=== PATIENT | female | born 1980 | race Caucasian/White ===

== ENCOUNTER 2020-09-14 11:06 | Inpatient (IN) | payer MEDICARE, MEDICAID, SELFPAY ==
[2020-09-14] VITALS (11 sets, daily range): BP systolic 169–247; BP diastolic 100–169; PULSE 80–104; RESP 14–18; TEMP 36.6–37.1; O2SAT 96–99; BMI 29.3; BMI 31.2
--- NOTE | ~2020-09-14 | CT_ITS ---
EXAMINATION: CT HEAD WITHOUT CONTRAST CLINICAL INFORMATION: Headache COMPARISON: Multiple prior examinations including CT head June 2016 TECHNIQUE: Contiguous axial imaging was performed from the skull base to vertex without intravenous administration of contrast. This CT examination was performed using dose optimization techniques as appropriate, variously including the following: *Automated exposure control *Adjustment of mA and/or kV according to patient size (this includes techniques or standardized protocols for targeted exams where dose is matched to indication/reason for exam; i.e. extremities or head) *Use of iterative reconstruction technique DLP: 649 mGy-cm FINDINGS: There is no evidence of acute intracranial hemorrhage or territorial infarction. No abnormal mass effect or midline shift is seen. Gu to white matter differentiation is well preserved. No extra-axial fluid collections are identified. The ventricles are normal in size. There is no abnormal attenuation within the brain parenchyma. The osseous structures and soft tissues are normal. Mastoid air cells clear. Slight asymmetry of the posterior wall the right maxillary sinus and likely due to normal variation than old fracture. No acute abnormality. CT/CT head/brain wo con IMPRESSION: No acute intracranial pathology.
--- NOTE | ~2020-09-14 | XR_ITS ---
EXAMINATION: XR CHEST CLINICAL INFORMATION: Shortness of breath COMPARISON: Previous chest x-ray most recent October 2017 TECHNIQUE: 2 views of the chest were obtained. FINDINGS: The cardiac silhouette is enlarged. There is pulmonary venous redistribution and increased peripheral interstitial markings suggestive of mild interstitial pulmonary edema. The lungs are otherwise clear. There is no pleural effusion. There are old left-sided rib fractures. Bony structures are otherwise unremarkable. XR/XR chest 2V IMPRESSION: New enlargement of the cardiac silhouette and interstitial pulmonary edema.
--- NOTE | ~2020-09-14 | CT_ITS ---
EXAMINATION: CT ANGIOGRAM OF THE CHEST WITH AND WITHOUT CONTRAST (CT PULMONARY ANGIOGRAM FOR PE) CLINICAL INFORMATION: Reason for Exam cp, sob, r/o pe COMPARISON: None TECHNIQUE: Prior to contrast administration, noncontrast localization images were obtained. Subsequently, multidetector volumetric imaging was performed from the thoracic inlet to below the diaphragms following the administration of 80 mL Omnipaque 350 intravenous contrast. No contrast reaction reported Sagittal, coronal, and MIP oblique sagittal reformatted images were obtained on the CT workstation, uploaded to PACS, and reviewed. This CT examination was performed using dose optimization techniques as appropriate, variously including the following: *Automated exposure control *Adjustment of mA and/or kV according to patient size (this includes techniques or standardized protocols for targeted exams where dose is matched to indication/reason for exam; i.e. extremities or head) *Use of iterative reconstruction technique Total exam dose-length product 471 mGy-cm FINDINGS: QUALITY OF STUDY/CONTRAST BOLUS: Satisfactory. PULMONARY ARTERIES: No central or segmental pulmonary emboli. THORACIC AORTA: No aneurysm or dissection. LUNG: The lungs are well-expanded and clear of acute pneumonic process. No pulmonary nodule, mass or consolidation seen. Minimal atelectatic changes are seen in lingula, left lower lobe and right lower lobe. PLEURA: No pleural effusion or pneumothorax. MEDIASTINUM: The heart size enlarged. There is no pericardial effusion. There are several left para-aortic and pretracheal lymph nodes. The largest left para-aortic lymph node measures 2.5 cm and the right pretracheal lymph node measures 3.3 x 1.5 cm. No evidence of septal bowing or right heart strain. CHEST WALL/AXILLA: No axillary or internal mammary lymphadenopathy. OSSEOUS STRUCTURES: No lytic or sclerotic process seen. UPPER ABDOMEN: Visualized liver, spleen, pancreas and bilateral adrenal glands are unremarkable. The gallbladder has been surgically removed. No reflux of contrast into the hepatic veins to suggest elevated right heart pressures. CT/CT angio chest PE protocol IMPRESSION: No evidence of PE. No evidence of aortic dissection. Abnormal mediastinal lymph nodes question inflammatory or infectious etiology. Atelectatic changes in lingula, right middle lobe and left lower lobe. Mild cardiomegaly. VTE: negative
--- NOTE | 2020-09-14 11:14 | ECG_ITS ---
Test Reason : SOB Blood Pressure : / mmHG Vent. Rate : 107 BPM Atrial Rate : 107 BPM P-R Int : 140 ms QRS Dur : 088 ms QT Int : 376 ms P-R-T Axes : 060 -02 126 degrees QTc Int : 501 ms Sinus tachycardia Left atrial enlargement Left ventricular hypertrophy with repolarization abnormality Abnormal ECG When compared with ECG of 26-OCT-2017 19:02, Minimal criteria for Inferior infarct are no longer Present Nonspecific T wave abnormality no longer evident in Inferior leads Inverted T waves have replaced nonspecific T wave abnormality in Lateral leads Referred By: Generic ED Physician Electronically Signed By:TIFFANIE SWANN MD
--- NOTE | 2020-09-14 12:28 | ED.CHESTPAIN ---
HPI - Chest Pain General Chief Complaint: Chest Pain Stated Complaint: SOB CHEST PAIN Time Seen by Provider: 09/14/20 12:15 Source: patient Mode of arrival: ambulatory Limitations: no limitations History of Present Illness HPI narrative: 40-year-old female with a past medical history of rheumatoid arthritis, lupus, Sjogren's, hypertension, hyperlipidemia, migraines, borderline diabetes with complaints of chest tightness since last evening. The patient tells me that she ate some dinner and shortly after felt some substernal chest discomfort with a tightness which wraps around her chest into her back. She tells me she tried a baby aspirin, Tums and Pepto with continued complaints. She did vomit once. This morning continued pain as she has had this throughout the night. She denies any current nausea, dizziness, headache, vision changes. The patient is complaining of some shortness of breath with activity which she has had for the last 2 days. No leg swelling or pain. She does tell me the pain is worsened with deep breathing. She has a history of hypertension and has been seen by Nephrology in the past. However, she has been lost to follow-up due to COVID per patient. She was taking amlodipine 5 mg daily and lisinopril 20 mg daily with a baseline blood pressure 150/90. However she ran out of her medications several weeks ago and has not been taking these. MD complaint: chest discomfort Related Data Home Medications Medication Instructions Recorded Confirmed aspirin 81 mg PO DAILY 09/14/20 09/14/20 clonazepam 1 tab PO DAILY PRN 09/14/20 09/14/20 lamotrigine 150 mg PO DAILY 09/14/20 09/14/20 Allergies Allergy/AdvReac Type Severity Reaction Status Date / Time Cephalosporins Allergy Intermediate RASH ALL Verified 09/14/20 12:01 [CEPHALOSPORINS] OVER amoxicillin Allergy Unknown rash Verified 09/14/20 12:01 cefaclor [From Ceclor] Allergy Unknown RASH Verified 09/14/20 12:01 cephalexin Allergy Unknown rash Verified 09/14/20 12:01 cephradine [From VELOSEF] Allergy Unknown RASH Verified 09/14/20 12:01 penicillin V Allergy Unknown rash Verified 09/14/20 12:01 Penicillins [PENICILLINS] Allergy Unknown RASH Verified 09/14/20 12:01 gabapentin [GABAPENTIN] AdvReac Unknown RESTLESS Verified 09/14/20 12:01 LEGS, Body becomes very uncomfortable Review of Systems Review of Systems: Yes all other systems are reviewed and are negative Constitutional: Constitutional: Reports no additional constitutional complaints, Denies body ache(s), Denies chills, Denies fever(s), Denies headache(s) and Denies weakness Eyes: Eyes: Reports no additional eye complaints and Denies change in vision ENT: Reports system reviewed and no additional complaints, except as documented, Denies dizziness, Denies headache(s), Denies nasal congestion, Denies nasal discharge and Denies neck pain Cardiovascular: Cardiovascular: Reports no additional cardiovascular complaints, Reports chest pain, Denies leg edema, Denies dyspnea and Reports dyspnea on exertion Respiratory: Respiratory: Reports no additional respiratory complaints, Denies cough, Denies dyspnea and Reports dyspnea on exertion Gastrointestinal: Gastrointestinal: Reports no additional gastrointestinal complaints, Denies abdominal pain, Denies diarrhea, Denies nausea and Denies vomiting Genitourinary: Genitourinary: Reports no additional female genitourinary complaints and Denies urinary incontinence Musculoskeletal: Musculoskeletal: Reports no additional musculoskeletal complaints, Denies back pain, Denies arthralgias, Denies joint swelling, Denies neck pain, Denies numbness and Denies tingling Integumentary/Breasts: Skin/Breast: Reports system reviewed and no additional complaints, except as docu and Denies rash Neurologic: Reports system reviewed and no additional complaints, except as documented, Denies Abnormal speech present, Denies dizziness, Denies headache(s), Denies numbness, Denies tingling and Denies weakness [facility] Past Medical History Attestation statement: The following information was validated with the patient. Source: old records reviewed and nursing notes reviewed Medical History (Updated 09/14/20 @ 16:20 by Gina No NP) Anxiety Bipolar 1 disorder Diabetes mellitus H/O mixed connective tissue disease High cholesterol History of DVT (deep vein thrombosis) HTN (hypertension) Lupus Migraines PTSD (post-traumatic stress disorder) Rheumatoid arthritis Sjogren's disease Surgical History H/O: hysterectomy S/P cholecystectomy Social History Social History (Updated 09/14/20 @ 12:31 by Gina Oneal, [employer]) Alcohol intake: current Alcohol intake frequency: holidays/special occasions only Alcohol type: hard liquor Patient Tobacco Use Status: Current everyday Tobacco user Smoked in Last 30 Days: Yes Use of substances other than those prescribed or required for medical reasons: Yes Substance Use Type: Crack/Cocaine and Marijuana Substance Use Type Other:: pt reports using cocaine once three months ago Substance Use Frequency: Weekly Substance Use Frequency Other:: marijuana use couple times a week Advance Directives: No Advance Directives Information Provided: Yes Patient : No Physical Exam Vital Signs: Vital Signs: Last Vital Signs Temp 97.8 F 09/14/20 16:00 Pulse 80 09/14/20 16:00 Resp 16 09/14/20 16:00 BP 169/126 H 09/14/20 16:00 Pulse Ox 99 09/14/20 16:00 Body Mass Index 29.3 Const: General: cooperative, healthy appearing, comfortable and no acute distress Orientation/consciousness: patient oriented x3 Limitations: no limitations HENMT: Head: Yes normal to inspection Ears: hearing grossly normal bilaterally General nose exam: Normal external nose present Face and sinus: Yes normal facial exam Mouth: Normal oral and palatal mucosa present Throat: Yes posterior oropharynx normal Eyes: General: appearance normal, both eyes and all related structures Pupils: Equal, round and reactive pupils present Neck: Neck: Yes normal visual inspection Chest: Chest palpation & inspection: normal inspection of the chest and tenderness (central chest tender to palp) Resp: Effort & Inspection: normal respiratory effort Auscultation: clear to auscultation bilaterally Cardio: Rate: tachycardic Rhythm: regular rhythm Peripheral pulses: Peripheral pulses 2+ throughout GI: Inspection: Yes normal to inspection Palpation (GI): Soft to palpation and nontender Auscultation: normal bowel sounds Back/Spine/Pelvis: Thoracic/Lumbar Spine: thoracic and lumbar spine normal to inspection Skin: General skin exam: no rashes or lesions noted Neuro: General: patient oriented x3, no focal motor deficits and normal sensation to monofilament Cranial nerves: Yes Equal, round and reactive pupils present Cognition (Neuro): normal cognition Speech: No Abnormal speech present Gait exam (Neuro): Normal gait present Motor exam (neuro): 5/5 motor strength present throughout Extrem: General: Yes normal to inspection, Yes no pedal edema and Yes no calf tenderness Course Course Course Narrative: 40-year-old female with a past medical history of hypertension noncompliant with her medications here with complaints of chest pain and tightness since last evening after eating a meal. Continued symptoms despite aspirin, Tums and Pepto with continued symptoms. On arrival the patient is hypertensive 230/150. Normal neuro exam Will need EKG, chest x-ray, labs, blood pressure control. 1300-prior to labetalol dose patient's blood pressure 230/160. X-ray consistent with large cardiac silhouette and interstitial pulmonary edema. ?nonischemic cardiomyopathy secondary to uncontrolled HTN. 1330-MAYURI, elevated troponin likely secondary to uncontrolled htn with plan for repeat 3hr. Mild leukocytosis likely reactive. Repeat dose of labetalol given. 40 mg of IV Lasix ordered after discussion with Dr Melo (attending). due to tachypnea, pleuritic chest pain, mild tachycardia and history of DVTs not currently on anticoagulation will need to be ruled out for PE. CTA ordered. Will need admission. 1430-blood pressure now 185/125. Goal BP 176/120. We will restart oral antihypertensive. Will hold lisinopril due to renal function. Give Norvasc p.o.. CTA pending. 1530-CTA No evidence of PE. No evidence of aortic dissection. Abnormal mediastinal lymph nodes question inflammatory or infectious etiology. Atelectatic changes in lingula, right middle lobe and left lower lobe. Mild cardiomegaly. Repeat troponin pending. BP 176/112. Call out to medicine to discuss. 1615-Discussed with Dr Ascencio who accepted admission. MDM - Chest Pain MDM Narrative Medical decision making narrative: Cardiomyopathy, chf, pe, pna, dissection, acs Medical Records Data Attestation: I reviewed the patient's medical records. Lab Data Attestation: I reviewed the patient's lab results. Result diagrams: 09/14/20 12:47 09/14/20 12:47 Labs: Lab Results 09/14/20 09/14/20 09/14/20 Range/Units 12:47 12:47 12:47 WBC 13.3 H (4.8-10.8) X10*3/uL RBC 3.82 L (4.20-5.50) X10*6/uL Hgb 12.5 (12.0-16.0) g/dl Hct 34.7 L (37-47) % MCV 90.8 (80-98) fL MCH 32.7 (27.0-33.0) pg MCHC 36.0 H (31.0-35.0) g/dl RDW 14.6 (11.0-16.0) % Plt Count 280 (160-400) X10*3/uL MPV 9.7 (9.4-12.3) fL Immature Gran % (Auto) 0.5 H (0.0-0.4) % Neut % (Auto) 78.0 H (45-73) % Lymph % (Auto) 14.8 L (20-40) % [place] % (Auto) 5.0 (2-11) % Eos % (Auto) 1.2 (0-4) % Baso % (Auto) 0.5 (0-2) % Lymph # (Auto) 2.0 (1.2-4.9) X10*3/uL [place] # (Auto) 0.7 (0.1-1.2) X10*3/uL Eos # (Auto) 0.2 (0.0-0.4) X10*3/uL Baso # (Auto) 0.1 (0.0-0.2) X10*3/uL Abs Immat Gran (auto) 0.07 H (0.00-0.03) X10*3/uL Absolute Neuts (auto) 10.4 H (2.0-8.3) X10*3/uL Absolute Nucleated RBC 0.000 (0.0-0.012) X10*3/uL Nucleated RBC % (auto) 0.0 (0.0-0.2) /100WBC PT 13.2 H (10.8-13.0) SEC INR 1.1 (0.9-1.1) Sodium 137 (135-145) mmol/L Potassium 3.3 (3.3-5.1) mmol/L Chloride 103 (96-108) mmol/L Carbon Dioxide 25 (22-29) mmol/L Anion Gap 12 (12-20) BUN 21 H (9-16) mg/dL Creatinine 1.36 (0.5-1.4) mg/dL Estim Creat Clear Calc 60.7 Estimated GFR 44 Random Glucose 233 H (60-115) mg/dL Calcium 9.1 (8.4-10.2) mg/dL Magnesium 1.7 (1.6-2.6) mg/dL Total Bilirubin 1.3 H (0.0-1.0) mg/dL Direct Bilirubin 0.5 (0.0-0.5) mg/dL AST 34 H (5-31) U/L ALT 49 H (0-31) U/L Alkaline Phosphatase 126 H (39-117) U/L Troponin I High Sens (<3.5-17.0) ng/L B-Natriuretic Peptide (<100) pg/mL Total Protein 5.9 L (6.5-8.0) g/dL Albumin 3.7 (3.5-5.0) g/dL Urine Color Urine Appearance Urine pH (5.0-8.0) Ur Specific [place] (1.005-1.025) Urine Protein (NEG-TRACE) MG/DL Urine Glucose (UA) (NEG) MG/DL Urine Ketones (NEG) MG/DL Urine Blood (NEG) Urine Nitrite (NEG) Ur Leukocyte Esterase (NEG) Urine RBC (0) /HPF Urine WBC (0-4) /HPF Ur Squamous Epith Cells /LPF Amorphous Sediment /LPF Urine Bacteria /LPF COVID-19 (TOM) (Negative) COVID-19 Clin Com 09/14/20 09/14/20 09/14/20 Range/Units 12:47 15:03 15:03 WBC (4.8-10.8) X10*3/uL RBC (4.20-5.50) X10*6/uL Hgb (12.0-16.0) g/dl Hct (37-47) % MCV (80-98) fL MCH (27.0-33.0) pg MCHC (31.0-35.0) g/dl RDW (11.0-16.0) % Plt Count (160-400) X10*3/uL MPV (9.4-12.3) fL Immature Gran % (Auto) (0.0-0.4) % Neut % (Auto) (45-73) % Lymph % (Auto) (20-40) % [place] % (Auto) (2-11) % Eos % (Auto) (0-4) % Baso % (Auto) (0-2) % Lymph # (Auto) (1.2-4.9) X10*3/uL [place] # (Auto) (0.1-1.2) X10*3/uL Eos # (Auto) (0.0-0.4) X10*3/uL Baso # (Auto) (0.0-0.2) X10*3/uL Abs Immat Gran (auto) (0.00-0.03) X10*3/uL Absolute Neuts (auto) (2.0-8.3) X10*3/uL Absolute Nucleated RBC (0.0-0.012) X10*3/uL Nucleated RBC % (auto) (0.0-0.2) /100WBC PT (10.8-13.0) SEC INR (0.9-1.1) Sodium (135-145) mmol/L Potassium (3.3-5.1) mmol/L Chloride (96-108) mmol/L Carbon Dioxide (22-29) mmol/L Anion Gap (12-20) BUN (9-16) mg/dL Creatinine (0.5-1.4) mg/dL Estim Creat Clear Calc Estimated GFR Random Glucose (60-115) mg/dL Calcium (8.4-10.2) mg/dL Magnesium (1.6-2.6) mg/dL Total Bilirubin (0.0-1.0) mg/dL Direct Bilirubin (0.0-0.5) mg/dL AST (5-31) U/L ALT (0-31) U/L Alkaline Phosphatase (39-117) U/L Troponin I High Sens 48.5 H* (<3.5-17.0) ng/L B-Natriuretic Peptide 2842 H (<100) pg/mL Total Protein (6.5-8.0) g/dL Albumin (3.5-5.0) g/dL Urine Color YELLOW Urine Appearance CLOUDY Urine pH 6.0 (5.0-8.0) Ur Specific [place] 1.020 (1.005-1.025) Urine Protein 2+ H (NEG-TRACE) MG/DL Urine Glucose (UA) 250 H (NEG) MG/DL Urine Ketones NEG (NEG) MG/DL Urine Blood TRACE (NEG) Urine Nitrite NEG (NEG) Ur Leukocyte Esterase NEG (NEG) Urine RBC 0-2 (0) /HPF Urine WBC 1-4 (0-4) /HPF Ur Squamous Epith Cells 2+ /LPF Amorphous Sediment 1+ /LPF Urine Bacteria TRACE /LPF COVID-19 (TOM) Negative (Negative) COVID-19 Clin Com See Note Imaging Data Chest x-ray: Attestation: I personally reviewed and interpreted this imaging study as follows: Radiologist's impression: EXAMINATION: XR CHEST CLINICAL INFORMATION: Shortness of breath COMPARISON: Previous chest x-ray most recent October 2017 TECHNIQUE: 2 views of the chest were obtained. FINDINGS: The cardiac silhouette is enlarged. There is pulmonary venous redistribution and increased peripheral interstitial markings suggestive of mild interstitial pulmonary edema. The lungs are otherwise clear. There is no pleural effusion. There are old left-sided rib fractures. Bony structures are otherwise unremarkable. XR/XR chest 2V IMPRESSION: New enlargement of the cardiac silhouette and interstitial pulmonary edema. CT scan - chest: Attestation: I personally reviewed and interpreted this imaging study as follows: Radiologist's impression: No evidence of PE. No evidence of aortic dissection. Abnormal mediastinal lymph nodes question inflammatory or infectious etiology. Atelectatic changes in lingula, right middle lobe and left lower lobe. Mild cardiomegaly. ECG Data ECG #1: Attestation: I personally reviewed and interpreted this ECG as follows: ECG interpretation date: 09/14/20 ECG interpretation time: 11:30 Interpretation: ST with rate 107, normal pr, normal qrs, prolonged qtc [address] depressions in leads V4 through V6 which appear on EKG from October of 2017 Discharge Plan Discharge Clinical Impression: Hypertensive crisis, Elevated brain natriuretic peptide (BNP) level, Elevated troponin Patient Disposition: Admitted As Inpatient
[2020-09-14 12:53] LABS: MANUAL DIFF FLAG NO
[2020-09-14] MEDS: Labetalol HCL 100 MG/20 ML VIAL 10 MG IVPUSH (12:53)
[2020-09-14 13:01] LABS: Basophils Absolute Auto 0.1 X10*3/uL (0.0-0.2); Basophils Percent Auto 0.5 % (0-2); Eosinophils Absolute Auto 0.2 X10*3/uL (0.0-0.4); Eosinophils Percent Auto 1.2 % (0-4); Hematocrit 34.7 % (37-47); Hemoglobin 12.5 g/dl (12.0-16.0); Imm Gran Abs Auto 0.07 X10*3/uL (0.00-0.03); Imm Gran Pct Auto 0.5 % (0.0-0.4); Lymphocytes Percent Auto 14.8 % (20-40); Mean Corpuscular Hemoglobin 32.7 pg (27.0-33.0); Mean Corpuscular Volume 90.8 fL (80-98); Mean Platelet Volume 9.7 fL (9.4-12.3); Monocytes Absolute Auto 0.7 X10*3/uL (0.1-1.2); Neutrophils Absolute Auto 10.4 X10*3/uL (2.0-8.3); Platelet Count 280 X10*3/uL (160-400); Red Blood Count 3.82 X10*6/uL (4.20-5.50); Red Cell Distribution Width 14.6 % (11.0-16.0); White Blood Count 13.3 X10*3/uL (4.8-10.8)
[2020-09-14 13:14] LABS: INTERNATIONAL NORM RATIO 1.1 (0.9-1.1); Prothrombin Time 13.2 SEC (10.8-13.0)
[2020-09-14 13:20] LABS: Alanine Aminotransferase 49 U/L (0-31); Albumin Level 3.7 g/dL (3.5-5.0); Alkaline Phosphatase 126 U/L (39-117); Anion Gap 12 (12-20); Aspartate Amino Transferase 34 U/L (5-31); Bilirubin Direct 0.5 mg/dL (0.0-0.5); Bilirubin Total 1.3 mg/dL (0.0-1.0); Blood Urea Nitrogen 21 mg/dL (9-16); Calcium 9.1 mg/dL (8.4-10.2); Carbon Dioxide 25 mmol/L (22-29); Chloride 103 mmol/L (96-108); Creatinine Clr Calc Pharmacy 60.7; Estimated Glomerular Filt Rate 44; Glucose Random 233 mg/dL (60-115); Magnesium 1.7 mg/dL (1.6-2.6); Potassium 3.3 mmol/L (3.3-5.1); Sodium 137 mmol/L (135-145); Total Protein 5.9 g/dL (6.5-8.0)
[2020-09-14 13:30] LABS: Troponin-I High Sensitivity 48.5 ng/L (<3.5-17.0)
[2020-09-14] MEDS: Furosemide 40 MG/4 ML VIAL IVPUSH (13:36)
[2020-09-14] MEDS: Labetalol HCL 100 MG/20 ML VIAL 20 MG IVPUSH (13:37)
[2020-09-14] MEDS: clonazePAM 0.5 MG TABLET PO (14:00)
[2020-09-14 14:01] LABS: B Type Natriuretic Peptide 2842 pg/mL (<100)
--- NOTE | 2020-09-14 14:50 | HE.PHANOTE ---
Patient reports taking 150 mg daily, she states she [facility] at [facility] in [place], though they have never filled it for her. Aime said last fill of any medications was july which was clonazepam. Elif Puentes PharmD
[2020-09-14] MEDS: amLODIPine Besylate 10 MG TABLET PO (14:53)
[2020-09-14] MEDS: iohexoL 350 MG/ML 100 ML INFUS..BTL IV (15:11)
[2020-09-14 15:12] LABS: Glucose Urine UA 250 MG/DL (NEG); Leukocyte Esterase Urine NEG (NEG); Nitrite Urine NEG (NEG); Urine Blood TRACE (NEG); Urine Ketones NEG (NEG); Urine Protein 2+ MG/DL (NEG-TRACE)
[2020-09-14 15:14] LABS: Appearance Urine CLOUDY; Color Urine YELLOW
[2020-09-14 15:23] LABS: Amorphous Sediment Urine 1+ /LPF; Bacteria Urine TRACE /LPF; RBC Urine 0-2 /HPF (0); Squamous Epithelial Cell Urine 2+ /LPF
[2020-09-14 15:27] LABS: COVID-19 Test Negative (Negative); IDNOW Serial# 9DD0AD1C
--- NOTE | 2020-09-14 16:38 | PM.IMHP ---
History of Present Illness Date of Service: 09/14/20 Chief Complaint: sob, chest pain 40F presented with one day lower chest wall/epigastric pain, 8/10, wrapping around back, associated with sob. denies n/v, diaphoresis, fever, chills. patient also complaining of several months progressive shortness of breath on exertion and orthopnea. patient has DM and HTN for which she has been non compliant with medications. She also has history of mixed connective tissue disease, not currently on treatement. in ED patient noted to have severe hypertension with bp 247/169. CTA was negative for PE, did show cardiomegaly and mediastinal lymph nodes. Review of Systems Review of Systems: Constitutional: Denies fever, denies Chills Eyes: denies blurry vision ENT: denies sore throat CVS: chest pain Respiratory: dyspnea GI: abdominal pain : denies dysuria MSK: denies neck pain Skin: denies rash Neuro: denies specific motor weakness Psych: denies suicidal ideation Endocrine: denies heat/cold intoleratnce Hematologic: denies easy bleeding Allergy: denies hives [facility] Medical History Anxiety Bipolar 1 disorder Diabetes mellitus H/O mixed connective tissue disease High cholesterol History of DVT (deep vein thrombosis) HTN (hypertension) Lupus Migraines PTSD (post-traumatic stress disorder) Rheumatoid arthritis Sjogren's disease Family history: reviewed and not pertinent Surgical History H/O: hysterectomy S/P cholecystectomy Social History Alcohol intake: current Alcohol intake frequency: holidays/special occasions only Alcohol type: hard liquor Patient Tobacco Use Status: Current everyday Tobacco user Smoked in Last 30 Days: Yes Use of substances other than those prescribed or required for medical reasons: Yes Substance Use Type: Crack/Cocaine and Marijuana Substance Use Type Other:: pt reports using cocaine once three months ago Substance Use Frequency: Weekly Substance Use Frequency Other:: marijuana use couple times a week Advance Directives: No Advance Directives Information Provided: Yes Patient : No Meds Allergies Allergy/AdvReac Type Severity Reaction Status Date / Time Cephalosporins Allergy Intermediate RASH ALL Verified 09/14/20 12:01 [CEPHALOSPORINS] OVER amoxicillin Allergy Unknown rash Verified 09/14/20 12:01 cefaclor [From Ceclor] Allergy Unknown RASH Verified 09/14/20 12:01 cephalexin Allergy Unknown rash Verified 09/14/20 12:01 cephradine [From VELOSEF] Allergy Unknown RASH Verified 09/14/20 12:01 penicillin V Allergy Unknown rash Verified 09/14/20 12:01 Penicillins [PENICILLINS] Allergy Unknown RASH Verified 09/14/20 12:01 gabapentin [GABAPENTIN] AdvReac Unknown RESTLESS Verified 09/14/20 12:01 LEGS, Body becomes very uncomfortable Active Medications: Current Medications Generic Name Dose Route Start Last Admin Trade Name Freq PRN Reason Stop Dose Admin Pharmacy Consult 1 each 09/14/20 13:41 Consult Rx Perform Med Rec MISCELLANE ONCE PRN Consult order Home Medications Medication Instructions Recorded Confirmed Last Taken Type aspirin 81 mg PO DAILY 09/14/20 09/14/20 09/13/20 History clonazepam 1 tab PO DAILY PRN 09/14/20 09/14/20 Unknown History lamotrigine 150 mg PO DAILY 09/14/20 09/14/20 09/14/20 History Physical Exam Vital Signs and Narrative: Vital Signs: Last Vital Signs Temp 97.8 F 09/14/20 16:00 Pulse 80 09/14/20 16:00 Resp 16 09/14/20 16:00 BP 169/126 H 09/14/20 16:00 Pulse Ox 99 09/14/20 16:00 Body Mass Index 29.3 General: no acute distress HEENT: atraumatic Neck: normal to visual inspection CVS: S1, S2, RRR, 1+ edema Resp: CTA bilateral Chest: non tender GI: soft, non tender, non distended : no CVA tenderness Skin: no rashes Extremities: no edema Neuro: Oriented X3, grossly intact Psych: cooperative Results Labs CBC and Chem 7: 09/14/20 12:47 09/14/20 12:47 Labs: Laboratory Results - last 24 hr 09/14/20 09/14/20 09/14/20 12:47 12:47 12:47 MCV 90.8 MCH 32.7 MCHC 36.0 H RDW 14.6 Plt Count 280 MPV 9.7 Immature Gran % (Auto) 0.5 H Neut % (Auto) 78.0 H Lymph % (Auto) 14.8 L [place] % (Auto) 5.0 Eos % (Auto) 1.2 Baso % (Auto) 0.5 Lymph # (Auto) 2.0 [place] # (Auto) 0.7 Eos # (Auto) 0.2 Baso # (Auto) 0.1 Abs Immat Gran (auto) 0.07 H Absolute Neuts (auto) 10.4 H Absolute Nucleated RBC 0.000 Nucleated RBC % (auto) 0.0 PT 13.2 H INR 1.1 Anion Gap 12 Estim Creat Clear Calc 60.7 Estimated GFR 44 Random Glucose 233 H Calcium 9.1 Magnesium 1.7 Total Bilirubin 1.3 H Direct Bilirubin 0.5 AST 34 H ALT 49 H Alkaline Phosphatase 126 H Troponin I High Sens B-Natriuretic Peptide Total Protein 5.9 L Albumin 3.7 Urine Color Urine Appearance Urine pH Ur Specific [place] Urine Protein Urine Glucose (UA) Urine Ketones Urine Blood Urine Nitrite Ur Leukocyte Esterase Urine RBC Urine WBC Ur Squamous Epith Cells Amorphous Sediment Urine Bacteria COVID-19 (TOM) COVID-19 [employer] Com 09/14/20 09/14/20 09/14/20 12:47 15:03 15:03 MCV MCH MCHC RDW Plt Count MPV Immature Gran % (Auto) Neut % (Auto) Lymph % (Auto) [place] % (Auto) Eos % (Auto) Baso % (Auto) Lymph # (Auto) [place] # (Auto) Eos # (Auto) Baso # (Auto) Abs Immat Gran (auto) Absolute Neuts (auto) Absolute Nucleated RBC Nucleated RBC % (auto) PT INR Anion Gap Estim Creat Clear Calc Estimated GFR Random Glucose Calcium Magnesium Total Bilirubin Direct Bilirubin AST ALT Alkaline Phosphatase Troponin I High Sens 48.5 H* B-Natriuretic Peptide 2842 H Total Protein Albumin Urine Color YELLOW Urine Appearance CLOUDY Urine pH 6.0 Ur Specific [place] 1.020 Urine Protein 2+ H Urine Glucose (UA) 250 H Urine Ketones NEG Urine Blood TRACE Urine Nitrite NEG Ur Leukocyte Esterase NEG Urine RBC 0-2 Urine WBC 1-4 Ur Squamous Epith Cells 2+ Amorphous Sediment 1+ Urine Bacteria TRACE COVID-19 (TOM) Negative COVID-19 Clin Com See Note Imaging Radiologist's Impressions: Impressions Chest X-Ray 09/14/20 12:26 IMPRESSION: New enlargement of the cardiac silhouette and interstitial pulmonary edema. Chest CTA 09/14/20 13:35 IMPRESSION: No evidence of PE. No evidence of aortic dissection. Abnormal mediastinal lymph nodes question inflammatory or infectious etiology. Atelectatic changes in lingula, right middle lobe and left lower lobe. Mild cardiomegaly. VTE: negative Assessment and Plan (1) Heart failure, unspecified: Status: Acute 40F presented with chest pain and sob, found to have hypertensive urgency, chf, elevated lfts, acute unspecified chf suspect htn related non ischemic cardiomyopathy, but has risk factors for ischemia troponins flat iv lasix, echo, cardio eval HTN lisinopril, lopressor, monitor DM check a1c, insulin inpatient, likely metformin on dc elevated lfts suspect NAFLD bipolar lamictal vte prophylaxis - xarelto 10mg
[2020-09-14 16:40] LABS: Troponin-I High Sensitivity 37.9 ng/L (<3.5-17.0)
[2020-09-14 17:38] LABS: Estimated Average Glucose 143 mg/dL; Hemoglobin A1c % 6.6 %
[2020-09-14] MEDS: hydrALAZINE HCl 20 MG/ML VIAL 5 MG IVPUSH (17:55)
[2020-09-14] MEDS: Insulin Lispro 100 UNIT/ML 3 ML VIAL SUBCUT ×2 (17:56→22:00)
--- NOTE | 2020-09-14 19:49 | PC.NURSE ---
Called to give RN to RN report, but nurse unavailable at this time to take report. [place] [facility] [place]
--- NOTE | 2020-09-14 21:01 | MHC.CM.PN ---
Addendum entered by Renetta Watson 09/14/20 21:17: Pt lives independently with three children aged 2. 14, 16. Original Note: CM met with pt in ED. Will be admitted-hypertension, CHF and MAYURI. IMM reviewed and signed per protocol 09/14@2049. Pt has long-standing mental health issues and is active with [facility]. Pt has no other services and reports little supports from family, but states mother will provide transportation home. D/C plan is home without services CM will follow for d/c needs.
[2020-09-14 21:13] LABS: Glucose, Whole Blood 227 mg/dL (60-115)
[2020-09-14 21:48] LABS: Glucose, Whole Blood 211 mg/dL (60-115)
[2020-09-14] MEDS: Metoprolol Tartrate 25 MG TABLET PO (22:01)
[2020-09-14] MEDS: oxyCODONE HCl Immed Release 5 MG TABLET PO (22:01)
[2020-09-14] MEDS: 0.9 % Sodium Chloride Flush 3 ML SYRINGE IVFLUSH (23:04)
[2020-09-15] VITALS (10 sets, daily range): BP systolic 120–191; BP diastolic 40–116; PULSE 78–95; RESP 17–20; TEMP 36.4–37; O2SAT 93–98
--- NOTE | 2020-09-15 05:23 | PC.NURSE ---
~04:30; Mobitz II AVB noted on tele with a HR as low as 35 (nonsustaining). Pt sleeping/awaken, a/o x4, denies sob, chest pain, palpitations, or dizziness, c/o headache. Will give Tylenol. MD made aware. Vitals obtained, SBP 160's, HR 80's. Will continue to monitor.
--- NOTE | 2020-09-15 05:34 | P.EN_ITS ---
Event Note Date of Service: 09/15/20 Event Note: Bradycardia: Patient's heart rate went up to 35. Patient asymptom atic. Appears to be in second-degree AV block. Cardiology consult. Bedside basis.
--- NOTE | 2020-09-15 05:34 | PM.EVENT ---
Event Note Date of Service: 09/15/20 Event Note: Bradycardia: Patient's heart rate went up to 35. Patient asymptomatic. Appears to be in second-degree AV block. Cardiology consult. Bedside basis.
[2020-09-15 07:02] LABS: Hematocrit 34.2 % (37-47); Hemoglobin 11.8 g/dl (12.0-16.0); Mean Corpuscular HGB Conc 34.5 g/dl (31.0-35.0); Mean Corpuscular Hemoglobin 32.2 pg (27.0-33.0); Mean Corpuscular Volume 93.4 fL (80-98); Platelet Count 314 X10*3/uL (160-400); Red Blood Count 3.66 X10*6/uL (4.20-5.50); Red Cell Distribution Width 14.6 % (11.0-16.0); White Blood Count 10.6 X10*3/uL (4.8-10.8)
[2020-09-15 07:23] LABS: Glucose, Whole Blood 151 mg/dL (60-115)
[2020-09-15 07:43] LABS: Alanine Aminotransferase 45 U/L (0-31); Albumin Level 3.4 g/dL (3.5-5.0); Alkaline Phosphatase 99 U/L (39-117); Anion Gap 16 (12-20); Aspartate Amino Transferase 27 U/L (5-31); Bilirubin Direct 0.5 mg/dL (0.0-0.5); Bilirubin Total 1.1 mg/dL (0.0-1.0); Blood Urea Nitrogen 19 mg/dL (9-16); Calcium 8.7 mg/dL (8.4-10.2); Carbon Dioxide 25 mmol/L (22-29); Chloride 101 mmol/L (96-108); Estimated Glomerular Filt Rate 47; Glucose Fasting 135 mg/dL (60-99); Magnesium 1.6 mg/dL (1.6-2.6); Sodium 139 mmol/L (135-145); Total Protein 5.4 g/dL (6.5-8.0)
[2020-09-15] MEDS: oxyCODONE HCl Immed Release 5 MG TABLET PO (07:45)
[2020-09-15] MEDS: Rivaroxaban 10 MG TABLET PO (08:23)
[2020-09-15] MEDS: lisinopriL 5 MG TABLET PO ×2 (08:23→21:18)
[2020-09-15] MEDS: Insulin Lispro 100 UNIT/ML 3 ML VIAL SUBCUT ×4 (08:23→21:14)
[2020-09-15] MEDS: lamoTRIgine 25 MG TABLET 150 MG PO (08:23)
[2020-09-15] MEDS: Furosemide 40 MG/4 ML VIAL IVPUSH (08:23)
[2020-09-15] MEDS: Aspirin Enteric Coated 81 MG TABLET.DR PO (08:23)
[2020-09-15] MEDS: 0.9 % Sodium Chloride Flush 3 ML SYRINGE IVFLUSH ×3 (08:24→21:19)
[2020-09-15] MEDS: Magnesium Oxide 400 MG TABLET PO ×2 (09:05→16:42)
[2020-09-15] MEDS: Potassium Chloride ER 20 MEQ TAB.ER.PRT 40 MEQ PO (09:05)
--- NOTE | 2020-09-15 10:41 | P.PNIM_ITS ---
Subjective Subjective Date of Service: 09/15/20 Interval History: feeling better, still sob on exertion, was asymptomatic during mobitz ii avb episodes Cardiovascular Cardiovascular: Reports no additional cardiovascular complaints Respiratory Respiratory: Reports no additional respiratory complaints Physical Exam Vital Signs: Vital Signs: Last Vital Signs Temp 98.0 F 09/15/20 08:11 Pulse 83 09/15/20 08:23 Resp 20 09/15/20 08:11 BP 160/60 H 09/15/20 08:23 Pulse Ox 96 09/15/20 08:11 Body Mass Index 31.2 General: AO X 3, no acute distress Resp: CTA bilateral CVS: S1,S2,RRR GI: soft, non tender, non distended Neuro: motor grossly intact Psych: appropriate affect Objective Data Current Medications Generic Name Dose Route Start Last Admin Trade Name Freq PRN Reason Stop Dose Admin Aspirin 81 mg 09/15/20 09:00 09/15/20 08:23 Aspirin Enteric Coated 81 Mg Tablet.Dr PO 81 mg DAILY BRIAN Administration Clonazepam 0.5 mg 09/14/20 16:59 Clonazepam 0.5 Mg Tablet PO DAILY PRN anxiety Furosemide 40 mg 09/14/20 18:00 09/15/20 08:23 Furosemide 40 Mg/4 Ml Vial IVPUSH 40 mg BID@0900,1800 [facility] Administration Protocol Insulin Human Lispro 0 unit 09/14/20 16:59 09/15/20 08:23 Insulin Lispro 100 Unit/Ml 3 Ml Vial SUBCUT 2 unit QIDACHS [facility] Administration Protocol Lamotrigine 150 mg 09/15/20 09:00 09/15/20 08:23 Lamotrigine 25 Mg Tablet PO 150 mg DAILY BRIAN Administration Lisinopril 5 mg 09/15/20 09:00 09/15/20 08:23 Lisinopril 5 Mg Tablet PO 5 mg DAILY BRIAN Administration Protocol Magnesium Oxide 400 mg 09/15/20 08:30 09/15/20 09:05 Magnesium Oxide 400 Mg Tablet PO 400 mg BIDPC [facility] Administration Pharmacy Consult 1 each 09/14/20 13:41 Consult Rx Perform Med Rec MISCELLANE ONCE PRN Consult order Rivaroxaban 10 mg 09/15/20 09:00 09/15/20 08:23 Rivaroxaban 10 Mg Tablet PO 10 mg DAILY BRIAN Administration Sodium Chloride 3 ml 09/15/20 00:00 09/15/20 08:24 0.9 % Sodium Chloride Flush 3 Ml Syringe IVFLUSH 3 ml QSHIFT BRIAN Administration Labs CBC & Chem 7: 09/15/20 05:55 09/15/20 05:55 Assessment and Plan (1) Heart failure, unspecified: Status: Acute Assessment and Plan: 40F presented with chest pain and sob, found to have hypertensive urgency, chf, elevated lfts, overnight had some Mobitz II AVB, not sustained, asymptomatic acute unspecified chf suspect htn related non ischemic cardiomyopathy, but has risk factors for ischemia will eventually need work up outpatient troponins flat does not appear too overloaded, will change to po lasix follow up echo HTN increase lisinopril to 5mg bid change lopressor to carvedilol 3.25mg bid, monitor on telemetry for further AVB amlodipine 5mg daily DM a1c 6.6 (suspect underestimating hyperglycemia) insulin inpatient, likely metformin on dc elevated lfts 

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
[2020-09-15 11:05] LABS: Glucose, Whole Blood 266 mg/dL (60-115)
--- NOTE | 2020-09-15 11:20 | CA_ITS ---
Transthoracic Echocardiogram Patient (Last, First, Middle): Angela Streeter L Gender: Female Date of : 1980 Age: 40 Procedure Date: 09/15/2020 Procedure Type: Transthoracic Echocardiogram [place] [facility] [place] Height: 167.64 cm Weight: 87.54 kg BSA: 1.97 m2 Heart Rate: bpm BP: 160 / 60 mmHg Liquid Flavor Compounder: AMEE Suarez MD: Zachary Ascencio MD Low Alt[employer] Officer: James Abraham MD Symptoms: chf Study Quality: Good ECG Rhythm: Sinus Conclusions: - 1. Mildly reduced LV systolic function with grade 2 diastolic dysfunction with moderate LVH 2. Moderately dilated left atrium 3. Mild mitral regurgitation 4. Mildly to moderately elevated right ventricular systolic pressure 5. Trivial pericardial effusion Findings Left Ventricle Normal left ventricular cavity size. There is moderately increased left ventricular wall thickness. The left ventricular systolic function is mildly decreased. The visually estimated ejection fraction is between 45-50%. There is no evidence of regional wall motion abnormalities. There is mild global hypokinesis. Spectral Doppler is indicative of a pseudonormal filling pattern. E/E prime ratio is >15, consistent with elevated filling pressures. Evidence suggests grade II (moderate) diastolic dysfunction. Right Ventricle Normal right ventricular cavity size. There is low normal right ventricular systolic function. Atria The left atrium is moderately dilated. There is lipomatous hypertrophy of the interatrial septum. There is no evidence of interatrial shunt. The right atrium is mildly dilated. Aortic Valve The aortic valve structure and function is likely normal. There is no aortic valve stenosis. There is no aortic valve regurgitation. Mitral Valve There is moderate posterior mitral leaflet thickening. There is mild mitral annular calcification. There is mild mitral valve regurgitation. There is no mitral valve stenosis. Pulmonic Valve The pulmonic valve was not well visualized. Tricuspid Valve There is mild tricuspid valve regurgitation. Mildly elevated right atrial pressure. Mild to moderate pulmonary hypertension is present. Great Vessels All visible segments of the aorta are normal in size. The pulmonary artery was not well visualized. Venous The inferior vena cava is mildly dilated and does not collapse with inspiration. Pericardium/Pleural There is a trivial pericardial effusion. Prior Study Comparison No prior study available for comparison. Measurements 2D Linear Measurements IVSd: 1.42 0.6-0.9/0.6-1.0 cm LVIDd: 4.83 3.9-5.3/4.2-5.9 cm LVIDd Index: 2.45 2.4-3.2/2.2-3.1 cm/m2 LVIDs: 4.07 2.0-3.6 cm LVPWd: 1.40 0.7-1.1 cm Ao Root: 3.10 2.1-3.5 cm LA Diam: 4.60 2.7-3.8/3.0-4.0 cm LAIDs Index: 2.34 1.5-2.3 cm/m2 LV Mass: 325.08 67-162/88-224 g LV Mass Index: 165.02 43-95/49-115 g/m2 LVOT Diam: 2.00 3.0+(-)1.3 cm 2D Systolic Function EF 4C: 47.10 >55% EF 2C: 44.20 >55% EF BiP: 46.50 >55% Mitral Valve MV Pk E: 1.05 MV PK A: 0.53 MV Decel Time: 159.00 E/A: 2.00 E'Lateral: 5.22 E'Medial: 4.68 E/E' Med: 22.40 E/E' Lat: 20.10 PHT: 47.00 MVA PHT: 4.68 Decel [place]S: 6.57 Aortic Valve AoV Pk Sebas: 1.48 AoV Mn Sebas: 1.11 AoV VTI: 0.28 AoV Pk Grad: 9.00 Aov Mn Grad: 5.00 SATISH Cont.VTI: 2.10 LVOT LVOT Pk Sebas: 0.95 LVOT Mn Sebas: 0.68 LVOT VTI: 0.19 LVOT Pk Grad: 4.00 LVOT Mn Grad: 2.00 LVOT Diam: 2.00 LVOT Area: 3.14 Diastolic Function MV Pk E: 1.05 MV Pk A: 0.53 E/A: 2.00 E'Medial: 4.68 E/E' Med: 22.40 E' Laterial: 5.22 E/E' Lat: 20.10 Tricuspid Valve TR Pk Sebas: 3.14 TR Pk Grad: 39.00 RA Press: 8.00 RVSP: 47.00 Great Vessels Aorta Ao Root-2D: 3.10 2.0-3.7 cm Ao Asc: 3.60 2.1-3.4 cm Ao Arch: 2.80 Updated in Other Vendor System with Status of Final James Abraham MD electronically signed on 09/15/2020 2:52:02 PM with status of Final
[2020-09-15] MEDS: carvediloL 3.125 MG TABLET PO ×2 (11:46→21:15)
[2020-09-15] MEDS: amLODIPine Besylate 5 MG TABLET PO (11:46)
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
[2020-09-15] MEDS: Acetaminophen 325 MG TABLET 650 MG PO ×2 (13:28→21:15)
[2020-09-15] MEDS: Nicotine 21 MG PATCH.TD24 TRANSDERMA (13:28)
[2020-09-15 16:32] LABS: Glucose, Whole Blood 217 mg/dL (60-115)
[2020-09-15 20:30] LABS: Glucose, Whole Blood 242 mg/dL (60-115)
[2020-09-15] MEDS: clonazePAM 0.5 MG TABLET PO (21:15)
[2020-09-16] VITALS (7 sets, daily range): BP systolic 138–170; BP diastolic 59–104; PULSE 80–86; RESP 18–20; TEMP 36.5–36.8; O2SAT 96–100
[2020-09-16 07:11] LABS: Glucose, Whole Blood 135 mg/dL (60-115)
[2020-09-16] MEDS: lamoTRIgine 25 MG TABLET 150 MG PO (08:14)
[2020-09-16] MEDS: amLODIPine Besylate 5 MG TABLET PO (08:14)
[2020-09-16] MEDS: Furosemide 40 MG TABLET PO (08:14)
[2020-09-16] MEDS: Magnesium Oxide 400 MG TABLET PO (08:14)
[2020-09-16] MEDS: carvediloL 3.125 MG TABLET 6.25 MG PO (08:15)
[2020-09-16] MEDS: lisinopriL 10 MG TABLET PO (08:15)
[2020-09-16] MEDS: Rivaroxaban 10 MG TABLET PO (08:15)
[2020-09-16] MEDS: 0.9 % Sodium Chloride Flush 3 ML SYRINGE IVFLUSH (08:16)
[2020-09-16] MEDS: Nicotine 21 MG PATCH.TD24 TRANSDERMA (08:16)
[2020-09-16] MEDS: Aspirin Enteric Coated 81 MG TABLET.DR PO (08:16)
[2020-09-16 09:26] LABS: Anion Gap 12 (12-20); Blood Urea Nitrogen 19 mg/dL (9-16); Carbon Dioxide 29 mmol/L (22-29); Chloride 103 mmol/L (96-108); Estimated Glomerular Filt Rate 47; Glucose Random 134 mg/dL (60-115); Potassium 3.7 mmol/L (3.3-5.1); Sodium 140 mmol/L (135-145)
[2020-09-16 09:30] LABS: B Type Natriuretic Peptide 550 pg/mL (<100)
[2020-09-16 11:06] LABS: Glucose, Whole Blood 260 mg/dL (60-115)
[2020-09-16] MEDS: Insulin Lispro 100 UNIT/ML 3 ML VIAL SUBCUT (12:02)
--- NOTE | 2020-09-16 12:07 | P.PNCA_ITS ---
Subjective Subjective Date of Service: 09/16/20 Principal diagnosis: Hypertensive heart disease with LV systolic dysfunction, uncontrolled hyper Interval history: Overnight patient noted to have again second-degree AV block and also some evidence of AV dissociation. Blood pressure today remains elevated. She denies any shortness of breath. She insisted on wanting to go home. Review of Systems Review of Systems Yes all other systems are reviewed and are negative Physical Exam Vital Signs: Last Vital Signs Temp 98.1 F 09/16/20 11:23 Pulse 80 09/16/20 11:23 Resp 20 09/16/20 11:23 BP 160/104 H 09/16/20 11:23 Pulse Ox 97 09/16/20 11:23 Body Mass Index 31.2 Const General: cooperative, comfortable, alert and awake Nutritional Appearance: obese Orientation/consciousness: patient oriented x3 Neck Neck: Yes trachea midline, Yes supple and Yes no JVD Resp Effort & Inspection: normal respiratory effort Auscultation: clear to auscultation bilaterally Cardio Jugular venous distension: no JVD Palpation: normal PMI Rate: regular rate Rhythm: regular rhythm Heart sounds: S1 normal heart sound present and S2 normal heart sound present Skin General skin exam: no rashes or lesions noted Neuro General: patient oriented x3 Extrem General: Yes no clubbing, cyanosis or edema Psych Appearance: grossly normal Affect: Labile affect present Results Labs and Meds Result diagrams: 09/15/20 05:55 09/16/20 08:27 Lab results: Laboratory Results - last 24 hr 09/15/20 09/15/20 09/16/20 16:23 20:22 07:00 Sodium Potassium Chloride Carbon Dioxide Anion Gap BUN Creatinine Estim Creat Clear Calc Estimated GFR POC Glucose 217 H 242 H 135 H Random Glucose Calcium Magnesium B-Natriuretic Peptide 09/16/20 09/16/20 09/16/20 08:27 08:28 10:55 Sodium 140 Potassium 3.7 D Chloride 103 Carbon Dioxide 29 Anion Gap 12 BUN 19 H Creatinine 1.27 Estim Creat Clear Calc 67.0 Estimated GFR 47 POC Glucose 260 H Random Glucose 134 H D Calcium 9.0 Magnesium 2.0 B-Natriuretic Peptide 550 H Progress Note: A&P Assessment and plan (1) Cardiomyopathy: Status: Acute Assessment and Plan: Patient with cardiomyopathy, hypertensive in nature with moderate LVH. Could also have underlying obstructive sleep apnea. However cannot use neurohormonal modulation with carvedilol due to her AV block noted at nighttime again most likely related to obstructive sleep apnea. Will require outpatient workup for the same. Discontinue carvedilol therapy. (2) Hypertensive crisis: Status: Acute Assessment and Plan: Hypertensive crisis, improved. Importance of controlling blood pressure was discussed in details with her. She understands. Given her AV block, will hold any rate lowering medications. Maximize lisinopril to 10 mg b.i.d.. Add Aldactone 25 mg to her regimen and continue Norvasc. Outpatient followup and workup will be pursued. Patient wants to sign against medical advise due to taking care of her kids. She says she follow up as outpatient. Fall Risk Details Current Medications: Current Medications Generic Name Dose Route Start Last Admin Trade Name Freq PRN Reason Stop Dose Admin Acetaminophen 650 mg 09/15/20 13:02 09/15/20 21:15 Acetaminophen 325 Mg Tablet PO 650 mg Q6H PRN Administration pain Amlodipine Besylate 5 mg 09/15/20 10:45 09/16/20 08:14 Amlodipine Besylate 5 Mg Tablet PO 5 mg DAILY BRIAN Administration Protocol Amlodipine Besylate 5 mg 09/17/20 09:00 Amlodipine Besylate 5 Mg Tablet PO DAILY BRIAN Protocol Aspirin 81 mg 09/15/20 09:00 09/16/20 08:16 Aspirin Enteric Coated 81 Mg Tablet. PO 81 mg DAILY BRIAN Administration Clonazepam 0.5 mg 09/14/20 16:59 09/15/20 21:15 Clonazepam 0.5 Mg Tablet PO 0.5 mg DAILY PRN Administration anxiety Furosemide 40 mg 09/16/20 09:00 09/16/20 08:14 Furosemide 40 Mg Tablet PO 40 mg DAILY BRIAN Administration Protocol Insulin Human Lispro 0 unit 09/14/20 16:59 09/16/20 12:02 Insulin Lispro 100 Unit/Ml 3 Ml Vial SUBCUT 6 unit QIDACHS BRIAN Administration Protocol Lamotrigine 150 mg 09/15/20 09:00 09/16/20 08:14 Lamotrigine 25 Mg Tablet PO 150 mg DAILY BRIAN Administration Lisinopril 10 mg 09/16/20 09:00 09/16/20 08:15 Lisinopril 10 Mg Tablet PO 10 mg BID BRIAN Administration Protocol Magnesium Oxide 400 mg 09/15/20 08:30 09/16/20 08:14 Magnesium Oxide 400 Mg Tablet PO 400 mg BIDPC BRIAN Administration Nicotine 21 mg 09/15/20 13:05 09/16/20 08:16 Nicotine 21 Mg Patch.Td24 TRANSDERMA 21 mg DAILY BRIAN Administration Pharmacy Consult 1 each 09/14/20 13:41 Consult Rx Perform Med Rec MISCELLANE ONCE PRN Consult order Rivaroxaban 10 mg 09/15/20 09:00 09/16/20 08:15 Rivaroxaban 10 Mg Tablet PO 10 mg DAILY BRIAN Administration Sodium Chloride 3 ml 09/15/20 00:00 09/16/20 08:16 0.9 % Sodium Chloride Flush 3 Ml Syringe IVFLUSH 3 ml QSHIFT BRIAN Administration Spironolactone 25 mg 09/16/20 12:10 Spironolactone 25 Mg Tablet PO DAILY [facility] [place] Protocol Time Spent With Patient Time: Total time spent is greater than 50% in coordination of care (as documented) at patient's floor/unit and/or counseling patient: Time with patient: 25 - 35 minutes Procedures Date of Service Date of Service: 09/16/20
--- NOTE | 2020-09-16 12:18 | PM.DS ---
DS: Providers Provider Date of Service: 09/16/20 Date of admission: 09/14/20 16:33 Primary care physician: DESEAN Benitez Consults: 09/14/20 16:59 Consult to Cardiology Routine Consulting Provider: James Abraham Reason for consultation: chf; bradycardia; 2*AVB DS: Diagnosis Discharge Diagnosis (1) Cardiomyopathy: Status: Acute (2) Hypertensive crisis: Status: Acute (3) Fatty liver: Status: Acute (4) Diabetes mellitus: Status: Acute (5) HTN (hypertension): Status: Acute DS: Medications Discharge Medications Home Medications: Home Medications Medication Instructions Recorded Confirmed aspirin 81 mg PO DAILY 09/14/20 09/14/20 clonazepam 1 tab PO DAILY PRN 09/14/20 09/14/20 lamotrigine 150 mg PO DAILY 09/14/20 09/14/20 DS: Summary Hospital Course Hospital Course: Patient was admitted for acute systolic and diastolic CHF secondary to hypertensive cardiomyopathy due to uncontrolled hypertension complicated by noncompliance. Patient also noted to be diabetic and had not been taking her medications. Patient was restarted on blood pressure medications. Blood pressure still not controlled but is better. Echo showed mildly reduced ejection fraction with grade 2 diastolic dysfunction. Patient was diuresed with IV Lasix and her shortness of breath improved and she was transitioned to oral Lasix. Overnight patient had short episodes of av block, therefore her beta-rachel was discontinued. Plan was to continue inpatient monitoring and up titration of medications and better blood pressure controlled. However, patient decided to leave against medical advice. She is well aware of the risk of doing so including . She will follow up with Cardiology and primary care physician. Time Spent with Patient Time attestation: Total time spent providing and/or coordinating discharge services: Discharge coordination time: Greater than 30 minutes Quality: Stroke Does the patient have a stroke diagnosis?: No Physical Exam Vital Signs: Vital Signs: Last Vital Signs Temp 98.1 F 09/16/20 11:23 Pulse 80 09/16/20 11:23 Resp 20 09/16/20 11:23 BP 160/104 H 09/16/20 11:23 Pulse Ox 97 09/16/20 11:23 Body Mass Index 31.2 General: AO X 3, no acute distress Resp: CTA bilateral CVS: S1,S2,RRR GI: soft, non tender, non distended Neuro: motor grossly intact Psych: appropriate affect DS: Data Data Completed and Pending Labs on day of discharge: Laboratory Results - last 24 hr 09/15/20 09/15/20 09/16/20 16:23 20:22 07:00 Sodium Potassium Chloride Carbon Dioxide Anion Gap BUN Creatinine Estim Creat Clear Calc Estimated GFR POC Glucose 217 H 242 H 135 H Random Glucose Calcium Magnesium B-Natriuretic Peptide 09/16/20 09/16/20 09/16/20 08:27 08:28 10:55 Sodium 140 Potassium 3.7 D Chloride 103 Carbon Dioxide 29 Anion Gap 12 BUN 19 H Creatinine 1.27 Estim Creat Clear Calc 67.0 Estimated GFR 47 POC Glucose 260 H Random Glucose 134 H D Calcium 9.0 Magnesium 2.0 B-Natriuretic Peptide 550 H Discharge Plan Discharge Patient Disposition: Left Against Medical Advice Discharge Diagnosis: DM, chf, htn Referrals: Mauricio Nolasco, [facility] [Primary Care Provider] - 1 Week Discharge Medications: New furosemide 40 mg Tablet 40 mg PO DAILY Qty: 30 RF: 0 lisinopril 10 mg Tablet 10 mg PO BID Qty: 60 RF: 0 spironolactone 25 mg Tablet 25 mg PO DAILY Qty: 30 RF: 0 metformin 500 mg tablet 500 mg PO BID Qty: 60 RF: 0 amlodipine 5 mg Tablet 5 mg PO DAILY Qty: 30 RF: 0 Continued clonazepam 0.5 mg tablet 1 tab PO DAILY PRN (Reason: anxiety) RF: 0 aspirin 81 mg Tablet,Delayed Release (Dr/Ec) 81 mg PO DAILY RF: 0 lamotrigine 100 mg tablet 150 mg PO DAILY RF: 0 Discharge Orders: Discharge Order (Routine); Ordered 09/16/20 Ordered By: Zachary Ascencio Other Ambulatory Orders: Basic Metabolic Panel (Routine) Timeframe: 1 Week Facility: [facility] - Location: Laboratory Ordered By: Zachary Ascencio Care Plan Goals: manage chf, htn, dm Health Concerns: chf, htn, dm Plan of Treatment: you are leaving AMA, ideally would continue hospital care, for now please take meds as prescribed, follow up with pcp and cardiology Assessment: see above
[2020-09-16] MEDS: Spironolactone 25 MG TABLET PO (12:29)
--- NOTE | 2020-09-16 13:54 | PC.NURSE ---
Patient discharged AMA due to not having anyone to watch her children. Hospitalist aware.
== END 2020-09-16 13:20 | disposition left against medical advice (07) | DRG 291 ==
LOC: HO.ED 16:20 → HO.EDOVER 16:43 → HO.IMC 19:22
PROVIDERS: Nurse Practitioner Family; Admitting Provider Internal Medicine; Emergency Provider Emergency Medicine; PCP Nurse Practitioner Family; Visit Provider Internal Medicine
DX: I13.0 Hypertensive heart and chronic kidney disease with heart failure and stage 1 through stage 4 chronic kidney disease, or unspecified chronic kidney disease (principal); I50.41 Acute combined systolic (congestive) and diastolic (congestive) heart failure; I16.9 Hypertensive crisis, unspecified; N17.9 Acute kidney failure, unspecified; I42.8 Other cardiomyopathies; K76.0 Fatty (change of) liver, not elsewhere classified; M06.9 Rheumatoid arthritis, unspecified; M32.9 Systemic lupus erythematosus, unspecified; M35.00 Sjogren syndrome, unspecified; I44.1 Atrioventricular block, second degree; E11.22 Type 2 diabetes mellitus with diabetic chronic kidney disease; F31.9 Bipolar disorder, unspecified; N18.2 Chronic kidney disease, stage 2 (mild); Z20.822 Contact with and (suspected) exposure to COVID-19; Z91.14 Patient's other noncompliance with medication regimen; F17.210 Nicotine dependence, cigarettes, uncomplicated; Z71.6 Tobacco abuse counseling; Z88.0 Allergy status to penicillin; Z79.82 Long term (current) use of aspirin; Z79.84 Long term (current) use of oral hypoglycemic drugs; Z79.899 Other long term (current) drug therapy
CPT/HCPCS: 36415; 70450; 71046; 71275; 80048; 80076; 81001; 82947; 83036; 83735; 83880; 84484; 85025; 85027; 85610; 87635; 93005; 93306; 99285; J1940; Q9967

== ENCOUNTER → 2020-10-04 08:56 | Outpatient (REF) | payer MEDICARE, MEDICAID, SELFPAY | LOC: HO.SL 08:56 | PROVIDERS: PCP Nurse Practitioner Family; Visit Provider Internal Medicine Cardiovascular Disease | DX: G47.10 Hypersomnia, unspecified (principal) | CPT/HCPCS: 95806 ==

== ENCOUNTER → 2020-10-12 08:34 | Outpatient (BNVA) | payer MEDICARE, MEDICAID, SELFPAY | PROVIDERS: PCP Nurse Practitioner Family; Visit Provider Surgery | DX: R59.0 Localized enlarged lymph nodes (principal); Z79.899 Other long term (current) drug therapy; F17.210 Nicotine dependence, cigarettes, uncomplicated | CPT/HCPCS: 99212 ==

== ENCOUNTER → 2020-10-15 08:35 | Outpatient (REF) | payer MEDICARE, MEDICAID, SELFPAY ==
--- NOTE | 2020-10-15 09:15 | ECG_ITS ---
Hook-up date: 2020-10-15 08:55:00 Duration: 27:17:00 Test Indications: I42.9 Medications: 439316 QRS complexes 1 Ventricular ectopics which represent <1 % of total QRS comp. 1 Supraventricular ectopics which represent <1 % of total QRS comp. * Paced QRS complexs which represent % of total QRS comp. VENTRICULAR ECTOPY 1 Isolated 0 Bigeminal Cycles 0 Couplets 0 Runs 0 Beats in Runs * Beats LONGEST at * BPM at :: -- * Beats FASTEST at * BPM at :: -- SUPRAVENTRICULAR ECTOPY 1 Isolated 0 Couplets 0 Runs 0 Beats in Runs * Beats LONGEST at * BPM at :: -- * Beats FASTEST at * BPM at :: -- HEART RATES 44 MIN at 03:04:20 2020-10-16 88 AVG 139 MAX at 18:45:05 2020-10-15 LONGEST RR 2.2080 secs at 03:04:16 2020-10-16 S-T LEVELS Channel 1 - 128 mm at 08:55:00 2020-10-15 - 128 mm at 08:55:00 2020-10-15 Channel 2 - 128 mm at 08:55:00 2020-10-15 - 128 mm at 08:55:00 2020-10-15 Channel 3 - 128 mm at 02:81:41 -- - 128 mm at 02:81:41 Basic rhythm Normal sinus rhythm Pause of 2.2 seconds with junctional escape during sleep hours No sustained tachyarrhythmias Frequent Sinus tachycardia , during waking hours, 26% of total time Patient reported SOB correlated with NSR Referred By: James Abraham Overread By: JAMES ABRAHAM MD
== END ==
LOC: HO.CARD 08:35
PROVIDERS: PCP Nurse Practitioner Family; Visit Provider Internal Medicine Cardiovascular Disease
DX: I42.9 Cardiomyopathy, unspecified (principal); I16.9 Hypertensive crisis, unspecified
CPT/HCPCS: 93225; 93226

== ENCOUNTER → 2020-10-19 08:03 | Outpatient (REF) | payer MEDICARE, MEDICAID, SELFPAY ==
--- NOTE | ~2020-10-19 | NM_ITS ---
Myocardial perfusion study Indication: Cardiomyopathy to evaluate for myocardial ischemia Technique: The patient was brought in for a Lexiscan perfusion study on 10/19/2020. Patient performed low-level exercise and was injected 0.4 mg of Lexiscan intravenously. Within a minute of injection, 30 mCi of sestamibi was given intravenously. Images were obtained using the SPECT gamma camera interlaced with the gating device. Images were obtained in supine position. Resting perfusion study was performed on 10/22/2020. Patient was administered 30 mCi of sestamibi intravenously at rest. Images were then obtained in supine position. Images obtained with and without CT attenuation. Total DLP 99 mGy-cm. Images were processed with the software and compared side to side in short axis, horizontal long axis and vertical long axis views. Findings: The stress perfusion study showed nonattenuated images show normal uptake of radiotracer in all segments of LV myocardium with minimally reduced basal segment. There is nonspecific. Attenuation corrected images show normal uptake of radiotracer in all segments of LV myocardium.. The gated study shows reduced LV systolic function with calculated LVEF of 46%. LV cavity is normal in size. The gated study shows diffuse mildly reduced wall thickening and contraction of segments. Resting study shows no change in perfusion pattern compared to stress perfusion study. Gating at rest reveals diffusely reduced wall motion with ejection fraction at 40%. The findings are consistent with no reversible defect suggestive of ischemia.. NM/NM laura perf SPECT rest & str Impression: 1. Myocardial perfusion imaging study shows normal myocardial perfusion 2. Gated LVEF is 46% with stress and 40% with rest 3. Transient ischemic dilatation not present EKG is nondiagnostic for ischemia
--- NOTE | 2020-10-19 08:09 | CA_ITS ---
Acquisition Time: 2020-10-19 08:17:31 Total Exercise Time: 00:02:00 Test Indications: Screening for CAD Medications: FUROSEMIDE LISINOPRIL SPIRONALACTONE METFORMIN AMLODIPINE CLONAZAPAM LAMOTRIGNE Protocol: LEXISCAN Max HR: 126 BPM 69% of Pred: 182 BPM Max BP: 164/092 mmHG Max Work Load: 1.0 METS Pharmacological stress test using Lexiscan while sitting and kicking her feet. Pt tolerated well, denies any anginalk sx. EKG with no arrhythmias, non-diagnostic for ischemia. Nuclear images to follow. Normotensive response to test. Test reviewed with Dr. Mccray. Referred By: James Abraham Overread By: Nazanin Malin NP
== END ==
LOC: HO.CARD 08:03
PROVIDERS: Visit Provider Internal Medicine Cardiovascular Disease
DX: I42.9 Cardiomyopathy, unspecified (principal); I16.9 Hypertensive crisis, unspecified
CPT/HCPCS: 78452; 93017; A9500; J0280; J2785

== ENCOUNTER → 2020-11-08 13:41 | Outpatient (BNVA) | payer MEDICARE, MEDICAID, SELFPAY | PROVIDERS: PCP Nurse Practitioner Family; Referring Provider Nurse Practitioner Family; Visit Provider Nurse Practitioner Family | DX: I11.0 Hypertensive heart disease with heart failure (principal); I50.9 Heart failure, unspecified; I42.9 Cardiomyopathy, unspecified; I44.1 Atrioventricular block, second degree | CPT/HCPCS: 93005; 99212 ==

== ENCOUNTER 2020-11-22 07:36 | Day surgery (SDC) | payer MEDICARE, MEDICAID, SELFPAY ==
[2020-10-25 16:20] VITALS: BMI 30.2
--- NOTE | 2020-11-21 12:33 | P.CONAN_ITS ---
Documented by User: Britney Pina NP 11/21/20 13:03 HPI - Anesthesia Eval Consult details Narrative: 40yo F for?Bronchoscopy Medias Fiberoptic Long h/o uncontrolled htn (since pre-ecamplsia with first ), recent C admit with htn crisis (pt signed out AMA d/t home child care provider). Outpt tests and cardiac follow up with BP remaining elevated. Seen by renal outpt since admission - CKD St [address] Case reviewed with Dr Ding. OK to proceed if BP in acceptable range preop. *Mult med allergies* PMFSH Active Problems Active Problems: All Active Problems (Updated 11/09/20 @ 12:18 by Dianelys Cobb, QUANG-C) Heart block AV second degree (Acute) Uncontrolled hypertension (Acute) Hypersomnia (Acute) Hypertensive crisis (Acute ~09/2020) Heart failure, unspecified (Acute ~09/2020) Cardiomyopathy (Acute) Mediastinal lymphadenopathy (Acute) Nicotine dependence, cigarettes, uncomplicated (Acute ~1999) High cholesterol (Acute) Fatty liver (Acute) Diabetes mellitus (Acute) HTN (hypertension) (Acute) H/O mixed connective tissue disease (Acute) Bipolar 1 disorder (Acute) Past Medical History Medical History (Updated 11/09/20 @ 12:18 by Dianelys Cobb, QUANG-C) Anxiety Bipolar 1 disorder Cardiomyopathy CKD (chronic kidney disease) stage 2, GFR 60-89 ml/min Diabetes mellitus Eclampsia Fatty liver H/O mixed connective tissue disease Heart block AV second degree High cholesterol History of DVT (deep vein thrombosis) HTN (hypertension) Hypersomnia Lupus Migraines Nicotine dependence, cigarettes, uncomplicated (~1999) PTSD (post-traumatic stress disorder) Rheumatoid arthritis Sjogren's disease Surgical History Surgical History H/O: hysterectomy History of cholecystectomy (~05/2014) Social History Social History Household Members: Children Household Members Other:: children Housing: House Are you a primary personal care home administrator to a significant other at home: No Do you presently have visiting nurse or other home services: No Alcohol intake: current Alcohol intake frequency: holidays/special occasions only Alcohol type: hard liquor Patient Tobacco Use Status: Current everyday Tobacco user Tobacco use type: Cigarette Cigarette Packs Per Day: 0.5 Cigarettes Per Day: 10.0 Years Smoked: 20 Smoked in Last 30 Days: Yes Patient Interested in Nicotine Replacement: No Patient Given Instructions on How to Stop Smoking: Yes Date Education Initiated: 10/25/20 Second Hand Smoke Exposure: Yes Use of substances other than those prescribed or required for medical reasons: Yes Substance Use Type: Crack/Cocaine and Marijuana Substance Use Type Other:: States has not used cocaine lately Substance Use Frequency: Occasionally Have you been hit, kicked, punched, or otherwise hurt by someone within the past year? If so, by whom?: No Are you DNR?: No Advance Directives: No Advance Directives Information Provided: No Advance Directives on File: No Recently lost weight without trying: No Eating poorly because of decreased appetite: No Nutrition Risks: No Nutritional Risk service: No Current occupational status: unemployed Meds Allergies Allergy/AdvReac Type Severity Reaction Status Date / Time Cephalosporins Allergy Intermediate RASH ALL Verified 11/05/20 16:25 [CEPHALOSPORINS] OVER amoxicillin Allergy Unknown rash Verified 11/05/20 16:25 cefaclor [From Ceclor] Allergy Unknown RASH Verified 11/05/20 16:25 cephalexin Allergy Unknown rash Verified 11/05/20 16:25 cephradine [From VELOSEF] Allergy Unknown RASH Verified 11/05/20 16:25 Penicillins [PENICILLINS] Allergy Unknown RASH Verified 11/05/20 16:25 gabapentin [GABAPENTIN] AdvReac Unknown RESTLESS Verified 11/05/20 16:25 LEGS, Body becomes very uncomfortable Home Medications Medication Instructions Recorded Confirmed Last Taken Type aspirin 81 mg tablet,delayed 81 mg PO DAILY 09/14/20 10/25/20 10/19/20 History release dapagliflozin 10 mg-metformin ER 1 tab PO DAILY 10/25/20 10/25/20 Unknown History 1,000 mg tablet,extended release 24hr (Xigduo XR) hydroxychloroquine 200 mg tablet 200 mg PO DAILY 10/25/20 10/25/20 10/19/20 History (Plaquenil) clonazepam 1 mg tablet 1 mg PO DAILY PRN 11/05/20 Unknown History lamotrigine 25 mg tablet 25 mg PO DAILY tab 11/05/20 11/09/20 Unknown History amlodipine 10 mg tablet 10 mg PO DAILY 11/08/20 11/09/20 Unknown History lamotrigine 100 mg tablet 100 mg PO DAILY tab 11/08/20 11/09/20 Unknown History spironolactone 25 mg tablet 100 mg PO DAILY tab 11/08/20 Unknown History Exam Exam Date and Time: November 21, 2020 1233 Height,Weight and Vital Signs: Height 5 ft 6 in Weight 84.822 kg Pertinent Lab Results Pertinent Lab Results: Laboratory Tests 09/15/20 09/16/20 05:55 08:27 WBC 10.6 Hgb 11.8 L Hct 34.2 L Plt Count 314 Sodium 140 Potassium 3.7 D Chloride 103 Carbon Dioxide 29 BUN 19 H Creatinine 1.27 Narrative Narrative: EKG 11/2020 sinus tach, possible left atrial enlargement, LVH with repolarization abnormality, rate 103 ECHO 09/2020 Conclusions: - 1. Mildly reduced LV systolic function with grade 2 diastolic? dysfunction with moderate LVH? 2. Moderately dilated left atrium? 3. Mild mitral regurgitation ? 4. Mildly to moderately elevated right ventricular systolic? ? ? pressure ? 5. Trivial pericardial effusion?? NM laura perf SPECT rest & str 10/2020 Impression: ? 1.? Myocardial perfusion imaging study shows normal myocardial perfusion 2.? Gated LVEF is 46% with stress and 40% with rest 3. Transient ischemic dilatation not present ? EKG is nondiagnostic for ischemia Assessment and Plan Assessment Anesthesia Assessment: Chart Reviewed Documented by User: Ernie Gibson MD 11/22/20 08:52 [facility] Past Medical History Medical History (Updated 11/09/20 @ 12:18 by Dianelys Cobb, QUANG-C) Anxiety Bipolar 1 disorder Cardiomyopathy CKD (chronic kidney disease) stage 2, GFR 60-89 ml/min Diabetes mellitus Eclampsia Fatty liver H/O mixed connective tissue disease Heart block AV second degree High cholesterol History of DVT (deep vein thrombosis) HTN (hypertension) Hypersomnia Lupus Migraines Nicotine dependence, cigarettes, uncomplicated (~1999) PTSD (post-traumatic stress disorder) Rheumatoid arthritis Sjogren's disease Surgical History Surgical History H/O: hysterectomy History of cholecystectomy (~05/2014) Social History Social History Household Members: Children Household Members Other:: children Housing: House Are you a primary personal care home administrator to a significant other at home: No Do you presently have visiting nurse or other home services: No Alcohol intake: current Alcohol intake frequency: holidays/special occasions only Alcohol type: hard liquor Patient Tobacco Use Status: Current everyday Tobacco user Tobacco use type: Cigarette Cigarette Packs Per Day: 0.5 Cigarettes Per Day: 10.0 Years Smoked: 20 Smoked in Last 30 Days: Yes Patient Interested in Nicotine Replacement: No Patient Given Instructions on How to Stop Smoking: Yes Date Education Initiated: 10/25/20 Second Hand Smoke Exposure: Yes Use of substances other than those prescribed or required for medical reasons: Yes Substance Use Type: Crack/Cocaine and Marijuana Substance Use Type Other:: States has not used cocaine lately Substance Use Frequency: Occasionally Have you been hit, kicked, punched, or otherwise hurt by someone within the past year? If so, by whom?: No Are you DNR?: No Advance Directives: No Advance Directives Information Provided: No Advance Directives on File: No Recently lost weight without trying: No Eating poorly because of decreased appetite: No Nutrition Risks: No Nutritional Risk service: No Current occupational status: unemployed Meds Allergies Allergy/AdvReac Type Severity Reaction Status Date / Time Cephalosporins Allergy Intermediate RASH ALL Verified 11/05/20 16:25 [CEPHALOSPORINS] OVER amoxicillin Allergy Unknown rash Verified 11/05/20 16:25 cefaclor [From Ceclor] Allergy Unknown RASH Verified 11/05/20 16:25 cephalexin Allergy Unknown rash Verified 11/05/20 16:25 cephradine [From VELOSEF] Allergy Unknown RASH Verified 11/05/20 16:25 Penicillins [PENICILLINS] Allergy Unknown RASH Verified 11/05/20 16:25 gabapentin [GABAPENTIN] AdvReac Unknown RESTLESS Verified 11/05/20 16:25 LEGS, Body becomes very uncomfortable Home Medications Medication Instructions Recorded Confirmed Last Taken Type aspirin 81 mg tablet,delayed 81 mg PO DAILY 09/14/20 10/25/20 10/19/20 History release dapagliflozin 10 mg-metformin ER 1 tab PO DAILY 10/25/20 10/25/20 Unknown History 1,000 mg tablet,extended release 24hr (Xigduo XR) hydroxychloroquine 200 mg tablet 200 mg PO DAILY 10/25/20 10/25/20 10/19/20 H istory (Plaquenil) clonazepam 1 mg tablet 1 mg PO DAILY PRN 11/05/20 Unknown History lamotrigine 25 mg tablet 25 mg PO DAILY tab 11/05/20 11/09/20 Unknown History amlodipine 10 mg tablet 10 mg PO DAILY 11/08/20 11/09/20 Unknown History lamotrigine 100 mg tablet 100 mg PO DAILY tab 11/08/20 11/09/20 Unknown History spironolactone 25 mg tablet 100 mg PO DAILY tab 11/08/20 Unknown History Exam Airway Mallampati Class: III TM Dist: >3cm Neck ROM: Full
[2020-11-22] VITALS (10 sets, daily range): BP systolic 131–157; BP diastolic 76–113; PULSE 77–105; RESP 12–20; TEMP 36.3–36.6; O2SAT 94–99; BMI 30.2
[2020-11-22 08:40] LABS: Glucose, Whole Blood 184 mg/dL (60-115)
[2020-11-22] MEDS: Lactated Ringers 1,000 ML 50 ML IVCONT (09:04)
--- NOTE | 2020-11-22 11:06 | P.OP_ITS ---
Operative Note Operative Note Date of Service: 11/22/20 Narrative: Preoperative diagnosis:[Mediastinal lymphadenopathy Postoperative diagnosis: Same Operation: Bronchoscopy and mediastinoscopy with mediastinal lymph node biopsies Surgeon:Joce Summers MD Meter Reader Inspector: None Anesthesia: General Specimens: Right paratracheal Mediastinal/hilar lymph nodes and general bronchial washings EBL: Minimal Operation in detail: The patient was brought to the operating room, placed sup ine on the operative table, anesthesia monitoring devices were placed, and the patient was intubated without difficulty. A time-out was performed confirming the correct patient, site, and procedure. The bronchoscope was then inserted through the endotracheal tube and airways were visualized down to the subsegmental level with findings no endobronchial lesions and minimal secretions The scope was then positioned 1st on the left and then on the right and 120 cc of saline washings were taken and collected in a Lukens trap. The patient's head and neck with an extended any neck and chest were widely prepped and draped in a standard sterile fashion. After injection of local anesthetic, a 2 cm incision was made above the sternal notch and carried down with electrocautery in between the strap muscles directly onto the trachea. The pretracheal fascia was then incised with the Metzenbaum scissors. This pretracheal space was then developed bluntly with my finger. The video mediastinal scope was then inserted along the trachea and down to the neno. We 1st visualized right paratracheal lymph nodes and multiple grasper biopsies were taken and sent to pathology fresh Next, we visualized another right paratracheal lymph nodes and specimens were taken and sent to pathology. Finally, subcarinal lymph nodes were visualized and specimens were taken and sent to pathology. Surgicel was used at each site and an opened up sponge was then placed into the pretracheal space and left to sit for 5 minutes by the clock. The sponge was removed and the scope was reinserted and hemostasis was achieved. The strap muscles were closed with a running 3-0 Vicryl suture. The platysma was closed with running 3-0 Vicryl suture. The skin was closed with running 3-0 Vicryl suture and Dermabond glue. The patient tolerated the procedure well, was extubated at the conclusion the operation, and brought to recovery room in stable condition.
[2020-11-22] MEDS: fentaNYL citrate/PF 100 MCG/2 ML VIAL 50 MCG IVPUSH ×2 (11:20→11:35)
[2020-11-22] MEDS: oxyCODONE HCl Immed Release 5 MG TABLET PO (11:20)
== END 2020-11-22 12:47 | disposition home or self-care (01) ==
PROVIDERS: PCP Nurse Practitioner Family; Visit Provider Surgery
PROC: (CPT 39402; principal; 2020-11-22 09:30)
DX: R59.0 Localized enlarged lymph nodes (principal); R07.89 Other chest pain; R06.02 Shortness of breath; I11.0 Hypertensive heart disease with heart failure; I50.9 Heart failure, unspecified; E11.9 Type 2 diabetes mellitus without complications; M35.1 Other overlap syndromes; M32.9 Systemic lupus erythematosus, unspecified; M06.9 Rheumatoid arthritis, unspecified; M35.00 Sjogren syndrome, unspecified; Z86.718 Personal history of other venous thrombosis and embolism; F17.210 Nicotine dependence, cigarettes, uncomplicated; F14.90 Cocaine use, unspecified, uncomplicated; F12.90 Cannabis use, unspecified, uncomplicated; Z79.84 Long term (current) use of oral hypoglycemic drugs; Z79.82 Long term (current) use of aspirin; Z79.899 Other long term (current) drug therapy
CPT/HCPCS: 39402; 36415; 82947; 87071; 87073; 87077; 87102; 87107; 87116; 87205; 88112; 88184; 88185; 88300; 88305; 88333; J1100; J2250; J2370; J2405; J3010

== ENCOUNTER → 2020-12-14 09:03 | Outpatient (BNVA) | payer MEDICARE, MEDICAID, SELFPAY | PROVIDERS: PCP Nurse Practitioner Family; Visit Provider Surgery | DX: R59.0 Localized enlarged lymph nodes (principal); I50.9 Heart failure, unspecified; F17.210 Nicotine dependence, cigarettes, uncomplicated; F14.90 Cocaine use, unspecified, uncomplicated; F12.90 Cannabis use, unspecified, uncomplicated; Z79.899 Other long term (current) drug therapy | CPT/HCPCS: 99212 ==

== ENCOUNTER → 2020-12-24 11:05 | Outpatient (BNVA) | payer MEDICARE, MEDICAID, SELFPAY | PROVIDERS: Visit Provider Internal Medicine | DX: R59.0 Localized enlarged lymph nodes (principal); E11.9 Type 2 diabetes mellitus without complications; I13.10 Hypertensive heart and chronic kidney disease without heart failure, with stage 1 through stage 4 chronic kidney disease, or unspecified chronic kidney disease; N18.2 Chronic kidney disease, stage 2 (mild); I44.1 Atrioventricular block, second degree; E78.00 Pure hypercholesterolemia, unspecified; F41.8 Other specified anxiety disorders; F17.210 Nicotine dependence, cigarettes, uncomplicated; Z88.1 Allergy status to other antibiotic agents; Z88.0 Allergy status to penicillin; Z88.8 Allergy status to other drugs, medicaments and biological substances | CPT/HCPCS: 99202 ==

== ENCOUNTER 2021-01-07 10:02 | Inpatient (IN) | payer MEDICARE, MEDICAID, SELFPAY ==
[2021-01-07] VITALS (7 sets, daily range): BP systolic 151–212; BP diastolic 86–119; PULSE 90–115; RESP 17–20; TEMP 36.1–37.5; O2SAT 96–99; BMI 29.8; BMI 31.4
--- NOTE | ~2021-01-07 | XR_ITS ---
EXAMINATION: LEFT WRIST SERIES CLINICAL INFORMATION: Atraumatic left hand pain and swelling COMPARISON: None TECHNIQUE: 4 views of the left wrist FINDINGS: Bones joints and soft tissues are normal. I do not see a fracture. XR/XR wrist LT w scaphoid IMPRESSION: Normal exam
--- NOTE | ~2021-01-07 | XR_ITS ---
EXAMINATION: XR CHEST CLINICAL INFORMATION: Body pains. COMPARISON: Chest x-ray September 2020 TECHNIQUE: 2 views of the chest were obtained. FINDINGS: No significant abnormality is noted involving the heart, lungs, mediastinum, bony thorax or soft tissues. XR/XR chest 2V IMPRESSION: Unremarkable examination.
--- NOTE | ~2021-01-07 | XR_ITS ---
EXAMINATION: XR KNEE, LEFT CLINICAL INFORMATION: Traumatic left knee pain swelling redness COMPARISON: X-ray of the left knee December 2018 TECHNIQUE: Four views of the left knee. FINDINGS: Small marginal osteophytes about the medial compartment along with small subchondral cystic change without joint space narrowing. Small marginal osteophytes but patellofemoral compartment. The remaining bones joints and soft tissues are unremarkable. Soft tissue swelling in the anterior subcutaneous soft tissues. XR/XR knee LT 4V IMPRESSION: Soft tissue swelling in the anterior subcutaneous soft tissues Mild osteoarthritis unchanged.
--- NOTE | 2021-01-07 12:27 | ECG_ITS ---
Test Reason : PAIN Blood Pressure : / mmHG Vent. Rate : 107 BPM Atrial Rate : 107 BPM P-R Int : 138 ms QRS Dur : 090 ms QT Int : 348 ms P-R-T Axes : 063 002 144 degrees QTc Int : 464 ms Sinus tachycardia Left atrial enlargement Left ventricular hypertrophy with repolarization abnormality Abnormal ECG When compared with ECG of 14-SEP-2020 11:31, No significant change was found Referred By: Regina Lockwood Electronically Signed By:AIRAM OVIEDO
--- NOTE | 2021-01-07 12:56 | ED.GENADULT ---
HPI - General Adult General Chief complaint: Extremity Problem <SPIKE Everett - Last Filed: 01/07/21 13:08> Stated complaint: PAIN ALL OVER <SPIKE Everett Last Filed: 01/07/21 13:08> Time Seen by Provider: 01/07/21 12:09 <SPIKE Everett Last Filed: 01/07/21 13:08> Source: patient <SPIKE Everett Last Filed: 01/07/21 13:08> Mode of arrival: ambulatory <SPIKE Everett Last Filed: 01/07/21 13:08> Limitations: no limitations <SPIKE Everett Last Filed: 01/07/21 13:08> History of Present Illness HPI narrative: 40-year-old female with a past medical history of rheumatoid arthritis, lupus not on any steroids, Sjogren's, hypertension, hyperlipidemia, heart failure, cardiomyopathy, 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 She has been urinating and having bowel movements on herself due to she is in too much pain to actually get to the bathroom. She denies any actual injuries, traumas or falls. She reports the pain is so bad that even if you rub your hand on her arm or legs gently she has excruciating 10/10 pain. She reports that she does not believe that this is the rheumatoid arthritis or lupus flare up although she is not on any steroids. She denies any fevers, chills, dizziness, headaches, sore throat, nasal congestion/rhinorrhea, neck pain or stiffness, chest pain or shortness of breath, dyspnea on exertion, orthopnea, palpitations, nausea/vomiting/diarrhea or constipation, abdominal pain, dysuria or any other symptoms complaints or concerns at this time. Denies recent travel or sick contacts. Denies any tick bites that she is aware of. <SPIKE Everett Last Filed: 01/07/21 13:08> MD complaint: Body pains <SPIKE Everett Last Filed: 01/07/21 13:08> Onset (ago): day(s) (3 days worse today) <SPIKE Everett - Last Filed: 01/07/21 13:08> Severity: severe <SPIKE Everett - Last Filed: 01/07/21 13:08> Severity scale (1-10): >10 <SPIKE Everett - Last Filed: 01/07/21 13:08> Quality: constant <SPIKE Everett - Last Filed: 01/07/21 13:08> Pain Consistency: constant <SPIKE Everett - Last Filed: 01/07/21 13:08> Relieving factors: none <SPIKE Everett - Last Filed: 01/07/21 13:08> Exacerbating factors: other (She reports everything exacerbates her symptoms) <SPIKE Everett - Last Filed: 01/07/21 13:08> Associated symptoms: denies other symptoms <SPIKE Everett - Last Filed: 01/07/21 13:08> Treatments prior to arrival: other ([id number] medication no symptomatic relief) <SPIKE Everett - Last Filed: 01/07/21 13:08> Related Data Home medications: Home Medications Medication Instructions Recorded Confirmed aspirin 81 mg tablet,delayed 81 mg PO DAILY 09/14/20 01/07/21 release dapagliflozin 10 mg-metformin ER 1 tab PO DAILY 10/25/20 01/07/21 1,000 mg tablet,extended release 24hr (Xigduo XR) clonazepam 1 mg tablet 1 mg PO DAILY PRN 11/05/20 01/07/21 amlodipine 10 mg tablet 10 mg PO DAILY 11/08/20 01/07/21 lamotrigine 100 mg tablet 150 mg PO DAILY tab 11/08/20 01/07/21 spironolactone 25 mg tablet 100 mg PO DAILY tab 11/08/20 01/07/21 hydroxychloroquine 200 mg tablet 200 mg PO DAILY 01/07/21 01/07/21 Previous Rx's Medication Instructions Recorded lisinopril 10 mg tablet 20 mg PO BID #360 tab 10/25/20 hydralazine 50 mg tablet 50 mg PO TID #90 tab 11/09/20 <SPIKE Everett Last Filed: 01/07/21 13:08> Allergies/adverse reactions: Allergies Allergy/AdvReac Type Severity Reaction Status Date / Time Cephalosporins Allergy Intermediate RASH ALL Verified 12/24/20 11:18 [CEPHALOSPORINS] OVER amoxicillin Allergy Unknown rash Verified 12/24/20 11:18 cefaclor [From Ceclor] Allergy Unknown RASH Verified 12/24/20 11:18 cephalexin Allergy Unknown rash Verified 12/24/20 11:18 cephradine [From VELOSEF] Allergy Unknown RASH Verified 12/24/20 11:18 Penicillins [PENICILLINS] Allergy Unknown RASH Verified 12/24/20 11:18 gabapentin [GABAPENTIN] AdvReac Unknown RESTLESS Verified 12/24/20 11:18 LEGS, Body becomes very uncomfortable <SPIKE Everett Last Filed: 01/07/21 13:08> Review of Systems Review of Systems: Constitutional : No Weight loss, No Fever, No Chills, No Night Sweats, No Fatigue, No Malaise ENT/Mouth : No Hearing loss, No Ear Pain, No Nasal Congestion, No Sinus Pain, No Hoarseness, No sore throat, No Rhinorrhea, No Swallowing Difficulty Eyes: No Eye Pain, No Swelling, No Redness, No Foreign Body, No Discharge, No Vision Changes Cardiovascular : No Chest Pain, No SOB, No Dyspnea on Exertion, No Orthopnea, No Edema, No Palpitations Respiratory : No Cough, No Sputum, No Wheezing, No Smoke Exposure, No Dyspnea Gastrointestinal : No Nausea, No Vomiting, No Diarrhea, No Constipation, No abdominal Pain, No Hematochezia, No Melena Genitourinary : no irregular bleeding, No Dysuria, No Urinary Frequency, No Hematuria, No Urinary Incontinence, No Urgency, No Flank Pain, No Urinary Flow Changes, No Hesitancy Musculoskeletal : Positive myalgias/joint pain/swelling, Skin : No Skin Lesions, No rash Neuro : No Weakness, No Numbness, No Paresthesias, No Loss of Consciousness, No Dizziness, No Headache Psych : No Anxiety/Panic, No Depression, No SI/HI/AH/VH, No Social Issues, Heme/Lymph: No Bruising, No Bleeding,No Lymphadenopathy Endocrine : No Polyuria, No Polydipsia, No Temperature Intolerance <SPIKE Everett Last Filed: 01/07/21 13:08> Yes all other systems are reviewed and are negative <SPIKE Everett - Last Filed: 01/07/21 13:08> [facility] Past Medical History Attestation statement: The following information was validated with the patient. <SPIKE Everett - Last Filed: 01/07/21 13:08> Medical History: Medical History Anxiety Bipolar 1 disorder Cardiomyopathy CKD (chronic kidney disease) stage 2, GFR 60-89 ml/min Diabetes mellitus Eclampsia Fatty liver H/O mixed connective tissue disease Heart block AV second degree High cholesterol History of DVT (deep vein thrombosis) HTN (hypertension) Hypersomnia Lupus Migraines Nicotine dependence, cigarettes, uncomplicated (~1999) PTSD (post-traumatic stress disorder) Rheumatoid arthritis Sjogren's disease <SPIKE Everett - Last Filed: 01/07/21 13:08> Surgical History: Surgical History History of bronchoscopy (~11/2020) History of cholecystectomy (~05/2014) History of hysterectomy <SPIKE Everett - Last Filed: 01/07/21 13:08> Family History Family History: Family History (Updated 01/07/21 @ 18:43 by Esteban Mejía MD) Other Diabetes HTN (hypertension) <SPIKE Everett - Last Filed: 01/07/21 13:08> Social History Social History: Social History Household Members: Children Household Members Other:: children Housing: House Are you a primary career orientation teacher to a significant other at home: No Do you presently have visiting nurse or other home services: No Alcohol intake: current Alcohol intake frequency: does not drink Alcohol type: hard liquor Patient Tobacco Use Status: Current everyday Tobacco user Tobacco use type: Cigarette Cigarette Packs Per Day: 0.5 Cigarettes Per Day: 10.0 Years Smoked: 20 Second Hand Smoke Exposure: Yes Use of substances other than those prescribed or required for medical reasons: Yes Substance Use Type: Marijuana Substance Use Frequency: Occasionally Advance Directives: No Patient : No service: No Current occupational status: unemployed <SPIKE Everett - Last Filed: 01/07/21 13:08> Physical Exam Vital Signs: Vital Signs: Last Vital Signs Temp 99.5 F 01/07/21 16:40 Pulse 108 H 01/07/21 18:05 Resp 20 01/07/21 18:05 BP 178/91 H 01/07/21 18:05 Pulse Ox 98 01/07/21 18:05 Body Mass Index 29.8 vital signs have been reviewed as normal and appeared to be correct. Blood pressure hypertensive 210/119. Heart rate tachycardic at 113. Respiration rate normal. Temperature normal. Oxygen saturation normal. <SPIKE Everett - Last Filed: 01/07/21 13:08> Vital Signs: Last Vital Signs Temp 99.5 F 01/07/21 16:40 Pulse 108 H 01/07/21 18:05 Resp 20 01/07/21 18:05 BP 178/91 H 01/07/21 18:05 Pulse Ox 98 01/07/21 18:05 Body Mass Index 29.8 <Gina No NP - Last Filed: 01/07/21 17:53> Vital Signs: Last Vital Signs Temp 99.5 F 01/07/21 16:40 Pulse 108 H 01/07/21 18:05 Resp 20 01/07/21 18:05 BP 178/91 H 01/07/21 18:05 Pulse Ox 98 01/07/21 18:05 Body Mass Index 29.8 <Carlos Rucker MD - Last Filed: 01/07/21 20:00> Appearance: Alert. Oriented X3. Patient very anxious although No acute distress. If you lightly touch her anywhere she reports that she has severe pain. Head: Normal external exam. Normocephalic. Atraumatic. Eyes: PERRLA. EOMI. Conjunctiva and sclera normal. Eyelids normal. ENT: Pharynx normal. Uvula midline. Moist mucous membranes. Neck: Normal inspection. Neck supple. FROM. No adenopathy. No meningeal signs. CVS: Normal heart rate and rhythm. Heart sound normal. Pulses normal throughout. No murmurs/rales/gallops. Respiratory: No respiratory distress. Painless inspiration. Breath sounds normal. No wheezes/rales/rhonchi noted. Chest nontender. No accessory muscle usage noted or decreased air movement noted. Abdomen: Soft and nontender. Bowel sounds normal in all 4 quadrants. No distention noted. No organomegaly noted. No visible injury noted. Back: No CVA tenderness. Full range of motion noted. No rashes/lesion/induration/fluctuance or signs of infection noted. Skin: Skin warm and dry. Normal skin color. Normal skin turgor. No rashes/lesions/lacerations noted. Extremities: To the left knee at the patella/suprapatellar aspect patient has tenderness to palpation with mild soft tissue swelling, erythema, calor and when patient attempts to flex her knee she has a lot of pain although has full extension. No obvious ligamentous or tendon injury. No calf tenderness is noted. No lower extremity pitting edema is noted. Patient is also noted to have tenderness palpation to the left wrist. She has mild soft tissue swelling to the left wrist. No erythema noted to the left wrist. No obvious ligamentous or tendon injury is noted. Otherwise all other Extremities exhibit normal range of motion and nontender. Neuro: Oriented X 3. No motor deficit. No sensory deficit. Reflexes normal. Normal steady gait. No focal neuro deficits noted. Vascular: + radial pulses/+ 2 distal pedal pulses/+2 dorsalis pedis b/l. Normal cap refill. No cyanosis noted to upper extremity nails and lower extremity toes nails. <SPIKE Everett - Last Filed: 01/07/21 13:08> Course Course Course Narrative: 12:25PM - 40-year-old female with a past medical history of RA, lupus, Sjogren's, HTN. 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 She has been urinating and having bowel movements on herself due to she is in too much pain to actually get to the bathroom. She denies any actual injuries, traumas or falls. She reports the pain is so bad that even if you rub your hand on her arm or legs gently she has excruciating 10/10 pain. She reports that she does not believe that this is the rheumatoid arthritis or lupus flare up although she is not on any steroids. Plan: Labs, blood culture, lactic acid, ESR, CRP, LYME TITER, chest x-ray, EKG, x-ray of left knee, x-ray of left hand/wrist. Provide 5 mg of oxycodone. Sign out to QUANG Fuentes pending above <SPIKE Everett - Last Filed: 01/07/21 13:08> 12:25PM - 40-year-old female with a past medical history of RA, lupus, Sjogren's, HTN. 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 She has been urinating and having bowel movements on herself due to she is in too much pain to actually get to the bathroom. She denies any actual injuries, traumas or falls. She reports the pain is so bad that even if you rub your hand on her arm or legs gently she has excruciating 10/10 pain. She reports that she does not believe that this is the rheumatoid arthritis or lupus flare up although she is not on any steroids. Plan: Labs, blood culture, lactic acid, ESR, CRP, LYME TITER, chest x-ray, EKG, x-ray of left knee, x-ray of left hand/wrist. Provide 5 mg of oxycodone. Sign out to QUANG Fuentes pending above <Gina No NP - Last Filed: 01/07/21 17:53> Reevaluation(s) Reevaluation #1: I received this patient from my colleague Regina LALA pending w/u. This is a 40-year-old female with a past medical history of rheumatoid arthritis on Plaquenil, uncontrolled hypertension with cardiomyopathy (last EF 09/15/20 45-50%) here with complaints of flu-like symptoms which patient describes as muscle aches, joint pain, chills since Alfredo evening. Patient tells me initially of felt like she was having rheumatoid arthritis flare but feels like this pain is ?a little bit different. She tells me that her boyfriend at home has similar flu-like symptoms. She is fully vaccinated for COVID. I examined the patient. She does have various muscle aches and joint pain. She does have a left knee that is painful with some mild erythema but there is no swelling or effusion. There is full range of motion so septic joint less likely. Reviewed labs which showed leukocytosis, elevated inflammatory markers. This may be from rheumatoid arthritis flare but rule out underlying infection. Patient has a chest x-ray, UA and COVID screen which are pending. Lyme titers were previously sent. I have added on a CT/NG as patient is sexually active, EKG and troponin. Patient does have uncontrolled hypertension and her blood pressure on arrival is 210/100 she tells me she only took her morning lisinopril and has not taking her hydralazine, Aldactone and Norvasc. I will give her her daily medications and reassess this,. <Gina No NP - Last Filed: 01/07/21 17:53> Time: 14:00 <Gina No NP - Last Filed: 01/07/21 17:53> Reevaluation #2: Troponin is mildly elevated. On review of chart patient always has a mildly elevated troponin likely secondary to uncontrolled hypertension she has no chest pain. Her EKG shows sinus tachycardia with a rate of 107, normal AR, normal QRS, ST changes in leads V5 and V6 unchanged from previous. There is some new depressions in leads V4. Patient does appear to have LVH with repolarization. This is likely secondary to uncontrolled hypertension. I considered myocarditis. I discussed the case with Dr. Mccray. He recommending trending her troponin and possible echocardiogram. CXR normal. BNP elevated 1285. Clinically patient has no LE edema, w/ clear lung sounds. She has been higher before. She is on 40mg lasix PO daily. Additional w/u still pending. This case was d/w with Dr Melo who agrees with current plan of care. <Gina No NP - Last Filed: 01/07/21 17:53> Time: 15:30 <Gina No NP - Last Filed: 01/07/21 17:53> Reevaluation #3: Repeat troponin unchanged. No chest pain. Less likely myocarditis. This case was again discussed with Dr Melo and we have decided to hold on echocardiogram at this time. Patient reports continued pain despite 2 rounds of p.o. analgesia. Will place PIV and give IV morphine. She tells me that she has had excruciating pain which has been prohibiting her from performing any ADLs. She tells me that due to this she has been unable to get to the bathroom and has been urinating and defecating on herself. May need admission for pain control. <Gina No NP - Last Filed: 01/07/21 17:53> Time: 16:40 <Gina No NP - Last Filed: 01/07/21 17:53> Additional Reevaluation(s): 1715- UA c/w with UTI. This with leukocytosis, tachycardia, low grade fever and reports of body aches/muscle aches and chills at home infection is suspected at this time. Antibiotics ordered. Will d/w with medicine for admit Consider that this may be multifactorial. Patient may also have underlying rheumatoid arthritis flare. At this time due to concern for sepsis will hold prednisone. Consider Lyme due to mild lymphocytopenia with joint pain and swelling however less likely with leukocytosis normal platelets and LFTs. 1717-Spoke to Dr Roblero who accepted admission. <Gina No NP - Last Filed: 01/07/21 17:53> Procedures Joint Aspiration/Injection Joint Asp./Inject. 1: Time Out Performed: Yes <Carlos Rucker MD - Last Filed: 01/07/21 20:00> Side of body: left <Carlos Rucker MD - Last Filed: 01/07/21 20:00> Joint Aspirated: knee <Carlos Rucker MD - Last Filed: 01/07/21 20:00> Ultrasound Guidance: No <Carlos Rucker MD - Last Filed: 01/07/21 20:00> Skin Prep: Povidone-Iodine1% <Carlos Rucker MD - Last Filed: 01/07/21 20:00> Local Anesthetic: lidocaine 2% <Carlos Rucker MD - Last Filed: 01/07/21 20:00> Amount of anesthesia used (mL): 5 <Carlos Rucker MD - Last Filed: 01/07/21 20:00> Needle Size Used: 18G <Carlos Rucker MD - Last Filed: 01/07/21 20:00> Fluid Obtained: clear <Carlos Rucker MD - Last Filed: 01/07/21 20:00> Total fluid obtained (mL): 1 <Carlos Rucker MD - Last Filed: 01/07/21 20:00> Patient Tolerated Procedure: well <Carlos Rucker MD - Last Filed: 01/07/21 20:00> Complications: none <Carlos Rucker MD - Last Filed: 01/07/21 20:00> Additional Comments: Less than 0.5 mL fluid came out unable to send for diagnosis fluid was serosanguineous no pus <Carlos Rucker MD - Last Filed: 01/07/21 20:00> Medical Decision Making Medical Records Medical records reviewed: Yes I reviewed the patient's medical records. <SPIKE Everett - Last Filed: 01/07/21 13:08> Lab Data Lab results reviewed: Yes I reviewed the patient's lab results. <SPIKE Everett - Last Filed: 01/07/21 13:08> Result diagrams: : 01/07/21 12:40 01/07/21 12:40 <SPIKE Everett - Last Filed: 01/07/21 13:08> Labs: Lab Results 01/07/21 01/07/21 01/07/21 Range/Units 12:40 12:40 12:40 WBC 21.6 H (4.8-10.8) X10*3/uL RBC 3.52 L (4.20-5.50) X10*6/uL Hgb 12.0 (12.0-16.0) g/dl Hct 33.5 L (37-47) % MCV 95.2 (80-98) fL MCH 34.1 H (27.0-33.0) pg MCHC 35.8 H (31.0-35.0) g/dl RDW 14.2 (11.0-16.0) % Plt Count 309 (160-400) X10*3/uL MPV 9.7 (9.4-12.3) fL Immature Gran % (Auto) 0.6 H (0.0-0.4) % Neut % (Auto) 89.2 H (45-73) % Lymph % (Auto) 5.4 L (20-40) % [place] % (Auto) 4.0 (2-11) % Eos % (Auto) 0.6 (0-4) % Baso % (Auto) 0.2 (0-2) % Lymph # (Auto) 1.2 (1.2-4.9) X10*3/uL [place] # (Auto) 0.9 (0.1-1.2) X10*3/uL Eos # (Auto) 0.1 (0.0-0.4) X10*3/uL Baso # (Auto) 0.1 (0.0-0.2) X10*3/uL Abs Immat Gran (auto) 0.14 H (0.00-0.03) X10*3/uL Absolute Neuts (auto) 19.2 H (2.0-8.3) X10*3/uL Absolute Nucleated RBC 0.000 (0.0-0.012) X10*3/uL Nucleated RBC % (auto) 0.0 (0.0-0.2) /100WBC ESR (0-20) MM/HR Hold Purple Top PT 12.7 (9.9-13.0) SEC INR 1.1 (0.9-1.1) Sodium 138 (135-145) mmol/L Potassium 3.5 (3.3-5.1) mmol/L Chloride 101 (96-108) mmol/L Carbon Dioxide 27 (22-29) mmol/L Anion Gap 14 (12-20) BUN 15 (9-16) mg/dL Creatinine 1.09 (0.5-1.4) mg/dL Estim Creat Clear Calc 76.3 Estimated GFR 56 Random Glucose 261 H (60-115) mg/dL Lactic Acid (0.5-2.0) mmol/L Calcium 9.3 (8.4-10.2) mg/dL Magnesium 2.1 (1.6-2.6) mg/dL Total Bilirubin 1.4 H (0.0-1.0) mg/dL AST 15 D (5-31) U/L ALT 19 (0-31) U/L Alkaline Phosphatase 127 H D (39-117) U/L Total Creatine Kinase 37 (26-140) U/L Troponin I High Sens (<3.5-17.0) ng/L C-Reactive Protein 22.63 H (< or = 0.50) mg/dL B-Natriuretic Peptide (<100) pg/mL Total Protein 6.8 D (6.5-8.0) g/dL Albumin 4.0 (3.5-5.0) g/dL Procalcitonin ng/mL Urine Color Urine Appearance Urine pH (5.0-8.0) Ur Specific [place] (1.005-1.025) Urine Protein (NEG-TRACE) MG/DL Urine Glucose (UA) (NEG) MG/DL Urine Ketones (NEG) MG/DL Urine Blood (NEG) Urine Nitrite (NEG) Ur Leukocyte Esterase (NEG) Urine RBC (0) /HPF Urine WBC (0-4) /HPF Urine WBC Clumps Ur Squamous Epith Cells /LPF Ur Renal Epithelial Cell Brandon Biurate Crystals Calcium Carbonate Cryst Calcium Phosphate Cryst Calcium Oxalate Crystal Leucine Crystals Cystine Crystals Uric Acid Crystals Triple Phos Crystals Talc Crystals Tyrosine Crystals Other Crystals Amorphous Sediment Urine Bacteria /LPF Epithelial Casts Fatty Casts Hyaline Casts Granular Casts Waxy Casts RBC Casts WBC Casts Other Casts Urine Mucus /LPF Urine Trichomonas Urine Yeast Urine Sperm Ur Oval Fat Bodies Chlam trachomat DNA PCR (Not Detect.) Coronavirus (PCR) (Negative) Influenza Type A (PCR) (Negative) Influenza Type B (PCR) (Negative) N.gonorrhoeae DNA (PCR) (Not Detect.) RSV RNA Qual (PCR) (Negative) 01/07/21 01/07/21 01/07/21 Range/Units 12:40 12:40 12:40 WBC (4.8-10.8) X10*3/uL RBC (4.20-5.50) X10*6/uL Hgb (12.0-16.0) g/dl Hct (37-47) % MCV (80-98) fL MCH (27.0-33.0) pg MCHC (31.0-35.0) g/dl RDW (11.0-16.0) % Plt Count (160-400) X10*3/uL MPV (9.4-12.3) fL Immature Gran % (Auto) (0.0-0.4) % Neut % (Auto) (45-73) % Lymph % (Auto) (20-40) % [place] % (Auto) (2-11) % Eos % (Auto) (0-4) % Baso % (Auto) (0-2) % Lymph # (Auto) (1.2-4.9) X10*3/uL [place] # (Auto) (0.1-1.2) X10*3/uL Eos # (Auto) (0.0-0.4) X10*3/uL Baso # (Auto) (0.0-0.2) X10*3/uL Abs Immat Gran (auto) (0.00-0.03) X10*3/uL Absolute Neuts (auto) (2.0-8.3) X10*3/uL Absolute Nucleated RBC (0.0-0.012) X10*3/uL Nucleated RBC % (auto) (0.0-0.2) /100WBC ESR 59 H (0-20) MM/HR Hold Purple Top SEE NOTE PT (9.9-13.0) SEC INR (0.9-1.1) Sodium (135-145) mmol/L Potassium (3.3-5.1) mmol/L Chloride (96-108) mmol/L Carbon Dioxide (22-29) mmol/L Anion Gap (12-20) BUN (9-16) mg/dL Creatinine (0.5-1.4) mg/dL Estim Creat Clear Calc Estimated GFR Random Glucose (60-115) mg/dL Lactic Acid 1.0 (0.5-2.0) mmol/L Calcium (8.4-10.2) mg/dL Magnesium (1.6-2.6) mg/dL Total Bilirubin (0.0-1.0) mg/dL AST (5-31) U/L ALT (0-31) U/L Alkaline Phosphatase (39-117) U/L Total Creatine Kinase (26-140) U/L Troponin I High Sens (<3.5-17.0) ng/L C-Reactive Protein (< or = 0.50) mg/dL B-Natriuretic Peptide (<100) pg/mL Total Protein (6.5-8.0) g/dL Albumin (3.5-5.0) g/dL Procalcitonin ng/mL Urine Color Urine Appearance Urine pH (5.0-8.0) Ur Specific [place] (1.005-1.025) Urine Protein (NEG-TRACE) MG/DL Urine Glucose (UA) (NEG) MG/DL Urine Ketones (NEG) MG/DL Urine Blood (NEG) Urine Nitrite (NEG) Ur Leukocyte Esterase (NEG) Urine RBC (0) /HPF Urine WBC (0-4) /HPF Urine WBC Clumps Ur Squamous Epith Cells /LPF Ur Renal Epithelial Cell Brandon Biurate Crystals Calcium Carbonate Cryst Calcium Phosphate Cryst Calcium Oxalate Crystal Leucine Crystals Cystine Crystals Uric Acid Crystals Triple Phos Crystals Talc Crystals Tyrosine Crystals Other Crystals Amorphous Sediment Urine Bacteria /LPF Epithelial Casts Fatty Casts Hyaline Casts Granular Casts Waxy Casts RBC Casts WBC Casts Other Casts Urine Mucus /LPF Urine Trichomonas Urine Yeast Urine Sperm Ur Oval Fat Bodies Chlam trachomat DNA PCR (Not Detect.) Coronavirus (PCR) (Negative) Influenza Type A (PCR) (Negative) Influenza Type B (PCR) (Negative) N.gonorrhoeae DNA (PCR) (Not Detect.) RSV RNA Qual (PCR) (Negative) 01/07/21 01/07/21 01/07/21 Range/Units 12:40 12:40 13:52 WBC (4.8-10.8) X10*3/uL RBC (4.20-5.50) X10*6/uL Hgb (12.0-16.0) g/dl Hct (37-47) % MCV (80-98) fL MCH (27.0-33.0) pg MCHC (31.0-35.0) g/dl RDW (11.0-16.0) % Plt Count (160-400) X10*3/uL MPV (9.4-12.3) fL Immature Gran % (Auto) (0.0-0.4) % Neut % (Auto) (45-73) % Lymph % (Auto) (20-40) % [place] % (Auto) (2-11) % Eos % (Auto) (0-4) % Baso % (Auto) (0-2) % Lymph # (Auto) (1.2-4.9) X10*3/uL [place] # (Auto) (0.1-1.2) X10*3/uL Eos # (Auto) (0.0-0.4) X10*3/uL Baso # (Auto) (0.0-0.2) X10*3/uL Abs Immat Gran (auto) (0.00-0.03) X10*3/uL Absolute Neuts (auto) (2.0-8.3) X10*3/uL Absolute Nucleated RBC (0.0-0.012) X10*3/uL Nucleated RBC % (auto) (0.0-0.2) /100WBC ESR (0-20) MM/HR Hold Purple Top PT (9.9-13.0) SEC INR (0.9-1.1) Sodium (135-145) mmol/L Potassium (3.3-5.1) mmol/L Chloride (96-108) mmol/L Carbon Dioxide (22-29) mmol/L Anion Gap (12-20) BUN (9-16) mg/dL Creatinine (0.5-1.4) mg/dL Estim Creat Clear Calc Estimated GFR Random Glucose (60-115) mg/dL Lactic Acid (0.5-2.0) mmol/L Calcium (8.4-10.2) mg/dL Magnesium (1.6-2.6) mg/dL Total Bilirubin (0.0-1.0) mg/dL AST (5-31) U/L ALT (0-31) U/L Alkaline Phosphatase (39-117) U/L Total Creatine Kinase (26-140) U/L Troponin I High Sens 43.6 H* (<3.5-17.0) ng/L C-Reactive Protein (< or = 0.50) mg/dL B-Natriuretic Peptide 1285 H (<100) pg/mL Total Protein (6.5-8.0) g/dL Albumin (3.5-5.0) g/dL Procalcitonin 0.23 ng/mL Urine Color Urine Appearance Urine pH (5.0-8.0) Ur Specific [place] (1.005-1.025) Urine Protein (NEG-TRACE) MG/DL Urine Glucose (UA) (NEG) MG/DL Urine Ketones (NEG) MG/DL Urine Blood (NEG) Urine Nitrite (NEG) Ur Leukocyte Esterase (NEG) Urine RBC (0) /HPF Urine WBC (0-4) /HPF Urine WBC Clumps Ur Squamous Epith Cells /LPF Ur Renal Epithelial Cell [place] Biurate Crystals Calcium Carbonate Cryst Calcium Phosphate Cryst Calcium Oxalate Crystal Leucine Crystals Cystine Crystals Uric Acid Crystals Triple Phos Crystals Talc Crystals Tyrosine Crystals Other Crystals Amorphous Sediment Urine Bacteria /LPF Epithelial Casts Fatty Casts Hyaline Casts Granular Casts Waxy Casts RBC Casts WBC Casts Other Casts Urine Mucus /LPF Urine Trichomonas Urine Yeast Urine Sperm Ur Oval Fat Bodies Chlam trachomat DNA PCR (Not Detect.) Coronavirus (PCR) NEGATIVE (Negative) Influenza Type A (PCR) NEGATIVE (Negative) Influenza Type B (PCR) NEGATIVE (Negative) N.gonorrhoeae DNA (PCR) (Not Detect.) RSV RNA Qual (PCR) NEGATIVE (Negative) 01/07/21 01/07/21 01/07/21 Range/Units 14:28 14:28 14:28 WBC (4.8-10.8) X10*3/uL RBC (4.20-5.50) X10*6/uL Hgb (12.0-16.0) g/dl Hct (37-47) % MCV (80-98) fL MCH (27.0-33.0) pg MCHC (31.0-35.0) g/dl RDW (11.0-16.0) % Plt Count (160-400) X10*3/uL MPV (9.4-12.3) fL Immature Gran % (Auto) (0.0-0.4) % Neut % (Auto) (45-73) % Lymph % (Auto) (20-40) % [place] % (Auto) (2-11) % Eos % (Auto) (0-4) % Baso % (Auto) (0-2) % Lymph # (Auto) (1.2-4.9) X10*3/uL [place] # (Auto) (0.1-1.2) X10*3/uL Eos # (Auto) (0.0-0.4) X10*3/uL Baso # (Auto) (0.0-0.2) X10*3/uL Abs Immat Gran (auto) (0.00-0.03) X10*3/uL Absolute Neuts (auto) (2.0-8.3) X10*3/uL Absolute Nucleated RBC (0.0-0.012) X10*3/uL Nucleated RBC % (auto) (0.0-0.2) /100WBC ESR (0-20) MM/HR Hold Purple Top PT (9.9-13.0) SEC INR (0.9-1.1) Sodium (135-145) mmol/L Potassium (3.3-5.1) mmol/L Chloride (96-108) mmol/L Carbon Dioxide (22-29) mmol/L Anion Gap (12-20) BUN (9-16) mg/dL Creatinine (0.5-1.4) mg/dL Estim Creat Clear Calc Estimated GFR Random Glucose (60-115) mg/dL Lactic Acid (0.5-2.0) mmol/L Calcium (8.4-10.2) mg/dL Magnesium (1.6-2.6) mg/dL Total Bilirubin (0.0-1.0) mg/dL AST (5-31) U/L ALT (0-31) U/L Alkaline Phosphatase (39-117) U/L Total Creatine Kinase (26-140) U/L Troponin I High Sens (<3.5-17.0) ng/L C-Reactive Protein (< or = 0.50) mg/dL B-Natriuretic Peptide (<100) pg/mL Total Protein (6.5-8.0) g/dL Albumin (3.5-5.0) g/dL Procalcitonin ng/mL Urine Color YELLOW Cancelled Urine Appearance HAZY Cancelled Urine pH 6.0 Cancelled (5.0-8.0) Ur Specific [place] 1.025 Cancelled (1.005-1.025) Urine Protein 2+ H Cancelled (NEG-TRACE) MG/DL Urine Glucose (UA) >=1000 H Cancelled (NEG) MG/DL Urine Ketones NEG Cancelled (NEG) MG/DL Urine Blood TRACE Cancelled (NEG) Urine Nitrite POS H Cancelled (NEG) Ur Leukocyte Esterase NEG Cancelled (NEG) Urine RBC 1-4 Cancelled (0) /HPF Urine WBC 15-29 H Cancelled (0-4) /HPF Urine WBC Clumps Cancelled Ur Squamous Epith Cells 1+ Cancelled /LPF Ur Renal Epithelial Cell Cancelled [place] Biurate Crystals Cancelled Calcium Carbonate Cryst Cancelled Calcium Phosphate Cryst Cancelled Calcium Oxalate Crystal Cancelled Leucine Crystals Cancelled Cystine Crystals Cancelled Uric Acid Crystals Cancelled Triple Phos Crystals Cancelled [place] Crystals Cancelled Tyrosine Crystals Cancelled Other Crystals Cancelled Amorphous Sediment Cancelled Urine Bacteria 3+ Cancelled /LPF Epithelial Casts Cancelled Fatty Casts Cancelled Hyaline Casts Cancelled Granular Casts Cancelled Waxy Casts Cancelled RBC Casts Cancelled WBC Casts Cancelled Other Casts Cancelled Urine Mucus 1+ Cancelled /LPF Urine Trichomonas Cancelled Urine Yeast Cancelled Urine Sperm Cancelled Ur Oval Fat Bodies Cancelled Chlam trachomat DNA PCR NOT DETECTED (Not Detect.) Coronavirus (PCR) (Negative) Influenza Type A (PCR) (Negative) Influenza Type B (PCR) (Negative) N.gonorrhoeae DNA (PCR) NOT DETECTED (Not Detect.) RSV RNA Qual (PCR) (Negative) 01/07/21 Range/Units 15:52 WBC (4.8-10.8) X10*3/uL RBC (4.20-5.50) X10*6/uL Hgb (12.0-16.0) g/dl Hct (37-47) % MCV (80-98) fL MCH (27.0-33.0) pg MCHC (31.0-35.0) g/dl RDW (11.0-16.0) % Plt Count (160-400) X10*3/uL MPV (9.4-12.3) fL Immature Gran % (Auto) (0.0-0.4) % Neut % (Auto) (45-73) % Lymph % (Auto) (20-40) % [place] % (Auto) (2-11) % Eos % (Auto) (0-4) % Baso % (Auto) (0-2) % Lymph # (Auto) (1.2-4.9) X10*3/uL [place] # (Auto) (0.1-1.2) X10*3/uL Eos # (Auto) (0.0-0.4) X10*3/uL Baso # (Auto) (0.0-0.2) X10*3/uL Abs Immat Gran (auto) (0.00-0.03) X10*3/uL Absolute Neuts (auto) (2.0-8.3) X10*3/uL Absolute Nucleated RBC (0.0-0.012) X10*3/uL Nucleated RBC % (auto) (0.0-0.2) /100WBC ESR (0-20) MM/HR Hold Purple Top PT (9.9-13.0) SEC INR (0.9-1.1) Sodium (135-145) mmol/L Potassium (3.3-5.1) mmol/L Chloride (96-108) mmol/L Carbon Dioxide (22-29) mmol/L Anion Gap (12-20) BUN (9-16) mg/dL Creatinine (0.5-1.4) mg/dL Estim Creat Clear Calc Estimated GFR Random Glucose (60-115) mg/dL Lactic Acid (0.5-2.0) mmol/L Calcium (8.4-10.2) mg/dL Magnesium (1.6-2.6) mg/dL Total Bilirubin (0.0-1.0) mg/dL AST (5-31) U/L ALT (0-31) U/L Alkaline Phosphatase (39-117) U/L Total Creatine Kinase (26-140) U/L Troponin I High Sens 41.5 H* (<3.5-17.0) ng/L C-Reactive Protein (< or = 0.50) mg/dL B-Natriuretic Peptide (<100) pg/mL Total Protein (6.5-8.0) g/dL Albumin (3.5-5.0) g/dL Procalcitonin ng/mL Urine Color Urine Appearance Urine pH (5.0-8.0) Ur Specific [place] (1.005-1.025) Urine Protein (NEG-TRACE) MG/DL Urine Glucose (UA) (NEG) MG/DL Urine Ketones (NEG) MG/DL Urine Blood (NEG) Urine Nitrite (NEG) Ur Leukocyte Esterase (NEG) Urine RBC (0) /HPF Urine WBC (0-4) /HPF Urine WBC Clumps Ur Squamous Epith Cells /LPF Ur Renal Epithelial Cell [place] Biurate Crystals Calcium Carbonate Cryst Calcium Phosphate Cryst Calcium Oxalate Crystal Leucine Crystals Cystine Crystals Uric Acid Crystals Triple Phos Crystals Talc Crystals Tyrosine Crystals Other Crystals Amorphous Sediment Urine Bacteria /LPF Epithelial Casts Fatty Casts Hyaline Casts Granular Casts Waxy Casts RBC Casts WBC Casts Other Casts Urine Mucus /LPF Urine Trichomonas Urine Yeast Urine Sperm Ur Oval Fat Bodies Chlam trachomat DNA PCR (Not Detect.) Coronavirus (PCR) (Negative) Influenza Type A (PCR) (Negative) Influenza Type B (PCR) (Negative) N.gonorrhoeae DNA (PCR) (Not Detect.) RSV RNA Qual (PCR) (Negative) <SPIKE [place] - Last Filed: 01/07/21 13:08> Lab Results 01/07/21 01/07/21 01/07/21 Range/Units 12:40 12:40 12:40 WBC 21.6 H (4.8-10.8) X10*3/uL RBC 3.52 L (4.20-5.50) X10*6/uL Hgb 12.0 (12.0-16.0) g/dl Hct 33.5 L (37-47) % MCV 95.2 (80-98) fL MCH 34.1 H (27.0-33.0) pg MCHC 35.8 H (31.0-35.0) g/dl RDW 14.2 (11.0-16.0) % Plt Count 309 (160-400) X10*3/uL MPV 9.7 (9.4-12.3) fL Immature Gran % (Auto) 0.6 H (0.0-0.4) % Neut % (Auto) 89.2 H (45-73) % Lymph % (Auto) 5.4 L (20-40) % [place] % (Auto) 4.0 (2-11) % Eos % (Auto) 0.6 (0-4) % Baso % (Auto) 0.2 (0-2) % Lymph # (Auto) 1.2 (1.2-4.9) X10*3/uL [place] # (Auto) 0.9 (0.1-1.2) X10*3/uL Eos # (Auto) 0.1 (0.0-0.4) X10*3/uL Baso # (Auto) 0.1 (0.0-0.2) X10*3/uL Abs Immat Gran (auto) 0.14 H (0.00-0.03) X10*3/uL Absolute Neuts (auto) 19.2 H (2.0-8.3) X10*3/uL Absolute Nucleated RBC 0.000 (0.0-0.012) X10*3/uL Nucleated RBC % (auto) 0.0 (0.0-0.2) /100WBC ESR (0-20) MM/HR Hold Purple Top PT 12.7 (9.9-13.0) SEC INR 1.1 (0.9-1.1) Sodium 138 (135-145) mmol/L Potassium 3.5 (3.3-5.1) mmol/L Chloride 101 (96-108) mmol/L Carbon Dioxide 27 (22-29) mmol/L Anion Gap 14 (12-20) BUN 15 (9-16) mg/dL Creatinine 1.09 (0.5-1.4) mg/dL Estim Creat Clear Calc 76.3 Estimated GFR 56 Random Glucose 261 H (60-115) mg/dL Lactic Acid (0.5-2.0) mmol/L Calcium 9.3 (8.4-10.2) mg/dL Magnesium 2.1 (1.6-2.6) mg/dL Total Bilirubin 1.4 H (0.0-1.0) mg/dL AST 15 D (5-31) U/L ALT 19 (0-31) U/L Alkaline Phosphatase 127 H D (39-117) U/L Total Creatine Kinase 37 (26-140) U/L Troponin I High Sens (<3.5-17.0) ng/L C-Reactive Protein 22.63 H (< or = 0.50) mg/dL B-Natriuretic Peptide (<100) pg/mL Total Protein 6.8 D (6.5-8.0) g/dL Albumin 4.0 (3.5-5.0) g/dL Procalcitonin ng/mL Urine Color Urine Appearance Urine pH (5.0-8.0) Ur Specific [place] (1.005-1.025) Urine Protein (NEG-TRACE) MG/DL Urine Glucose (UA) (NEG) MG/DL Urine Ketones (NEG) MG/DL Urine Blood (NEG) Urine Nitrite (NEG) Ur Leukocyte Esterase (NEG) Urine RBC (0) /HPF Urine WBC (0-4) /HPF Urine WBC Clumps Ur Squamous Epith Cells /LPF Ur Renal Epithelial Cell [place] Biurate Crystals Calcium Carbonate Cryst Calcium Phosphate Cryst Calcium Oxalate Crystal Leucine Crystals Cystine Crystals Uric Acid Crystals Triple Phos Crystals Talc Crystals Tyrosine Crystals Other Crystals Amorphous Sediment Urine Bacteria /LPF Epithelial Casts Fatty Casts Hyaline Casts Granular Casts Waxy Casts RBC Casts WBC Casts Other Casts Urine Mucus /LPF Urine Trichomonas Urine Yeast Urine Sperm Ur Oval Fat Bodies Chlam trachomat DNA PCR (Not Detect.) Coronavirus (PCR) (Negative) Influenza Type A (PCR) (Negative) Influenza Type B (PCR) (Negative) N.gonorrhoeae DNA (PCR) (Not Detect.) RSV RNA Qual (PCR) (Negative) 01/07/21 01/07/21 01/07/21 Range/Units 12:40 12:40 12:40 WBC (4.8-10.8) X10*3/uL RBC (4.20-5.50) X10*6/uL Hgb (12.0-16.0) g/dl Hct (37-47) % MCV (80-98) fL MCH (27.0-33.0) pg MCHC (31.0-35.0) g/dl RDW (11.0-16.0) % Plt Count (160-400) X10*3/uL MPV (9.4-12.3) fL Immature Gran % (Auto) (0.0-0.4) % Neut % (Auto) (45-73) % Lymph % (Auto) (20-40) % [place] % (Auto) (2-11) % Eos % (Auto) (0-4) % Baso % (Auto) (0-2) % Lymph # (Auto) (1.2-4.9) X10*3/uL [place] # (Auto) (0.1-1.2) X10*3/uL Eos # (Auto) (0.0-0.4) X10*3/uL Baso # (Auto) (0.0-0.2) X10*3/uL Abs Immat Gran (auto) (0.00-0.03) X10*3/uL Absolute Neuts (auto) (2.0-8.3) X10*3/uL Absolute Nucleated RBC (0.0-0.012) X10*3/uL Nucleated RBC % (auto) (0.0-0.2) /100WBC ESR 59 H (0-20) MM/HR Hold Purple Top SEE NOTE PT (9.9-13.0) SEC INR (0.9-1.1) Sodium (135-145) mmol/L Potassium (3.3-5.1) mmol/L Chloride (96-108) mmol/L Carbon Dioxide (22-29) mmol/L Anion Gap (12-20) BUN (9-16) mg/dL Creatinine (0.5-1.4) mg/dL Estim Creat Clear Calc Estimated GFR Random Glucose (60-115) mg/dL Lactic Acid 1.0 (0.5-2.0) mmol/L Calcium (8.4-10.2) mg/dL Magnesium (1.6-2.6) mg/dL Total Bilirubin (0.0-1.0) mg/dL AST (5-31) U/L ALT (0-31) U/L Alkaline Phosphatase (39-117) U/L Total Creatine Kinase (26-140) U/L Troponin I High Sens (<3.5-17.0) ng/L C-Reactive Protein (< or = 0.50) mg/dL B-Natriuretic Peptide (<100) pg/mL Total Protein (6.5-8.0) g/dL Albumin (3.5-5.0) g/dL Procalcitonin ng/mL Urine Color Urine Appearance Urine pH (5.0-8.0) Ur Specific [place] (1.005-1.025) Urine Protein (NEG-TRACE) MG/DL Urine Glucose (UA) (NEG) MG/DL Urine Ketones (NEG) MG/DL Urine Blood (NEG) Urine Nitrite (NEG) Ur Leukocyte Esterase (NEG) Urine RBC (0) /HPF Urine WBC (0-4) /HPF Urine WBC Clumps Ur Squamous Epith Cells /LPF Ur Renal Epithelial Cell [place] Biurate Crystals Calcium Carbonate Cryst Calcium Phosphate Cryst Calcium Oxalate Crystal Leucine Crystals Cystine Crystals Uric Acid Crystals Triple Phos Crystals Talc Crystals Tyrosine Crystals Other Crystals Amorphous Sediment Urine Bacteria /LPF Epithelial Casts Fatty Casts Hyaline Casts Granular Casts Waxy Casts RBC Casts WBC Casts Other Casts Urine Mucus /LPF Urine Trichomonas Urine Yeast Urine Sperm Ur Oval Fat Bodies Chlam trachomat DNA PCR (Not Detect.) Coronavirus (PCR) (Negative) Influenza Type A (PCR) (Negative) Influenza Type B (PCR) (Negative) N.gonorrhoeae DNA (PCR) (Not Detect.) RSV RNA Qual (PCR) (Negative) 01/07/21 01/07/21 01/07/21 Range/Units 12:40 12:40 13:52 WBC (4.8-10.8) X10*3/uL RBC (4.20-5.50) X10*6/uL Hgb (12.0-16.0) g/dl Hct (37-47) % MCV (80-98) fL MCH (27.0-33.0) pg MCHC (31.0-35.0) g/dl RDW (11.0-16.0) % Plt Count (160-400) X10*3/uL MPV (9.4-12.3) fL Immature Gran % (Auto) (0.0-0.4) % Neut % (Auto) (45-73) % Lymph % (Auto) (20-40) % [place] % (Auto) (2-11) % Eos % (Auto) (0-4) % Baso % (Auto) (0-2) % Lymph # (Auto) (1.2-4.9) X10*3/uL [place] # (Auto) (0.1-1.2) X10*3/uL Eos # (Auto) (0.0-0.4) X10*3/uL Baso # (Auto) (0.0-0.2) X10*3/uL Abs Immat Gran (auto) (0.00-0.03) X10*3/uL Absolute Neuts (auto) (2.0-8.3) X10*3/uL Absolute Nucleated RBC (0.0-0.012) X10*3/uL Nucleated RBC % (auto) (0.0-0.2) /100WBC ESR (0-20) MM/HR Hold Purple Top PT (9.9-13.0) SEC INR (0.9-1.1) Sodium (135-145) mmol/L Potassium (3.3-5.1) mmol/L Chloride (96-108) mmol/L Carbon Dioxide (22-29) mmol/L Anion Gap (12-20) BUN (9-16) mg/dL Creatinine (0.5-1.4) mg/dL Estim Creat Clear Calc Estimated GFR Random Glucose (60-115) mg/dL Lactic Acid (0.5-2.0) mmol/L Calcium (8.4-10.2) mg/dL Magnesium (1.6-2.6) mg/dL Total Bilirubin (0.0-1.0) mg/dL AST (5-31) U/L ALT (0-31) U/L Alkaline Phosphatase (39-117) U/L Total Creatine Kinase (26-140) U/L Troponin I High Sens 43.6 H* (<3.5-17.0) ng/L C-Reactive Protein (< or = 0.50) mg/dL B-Natriuretic Peptide 1285 H (<100) pg/mL Total Protein (6.5-8.0) g/dL Albumin (3.5-5.0) g/dL Procalcitonin 0.23 ng/mL Urine Color Urine Appearance Urine pH (5.0-8.0) Ur Specific [place] (1.005-1.025) Urine Protein (NEG-TRACE) MG/DL Urine Glucose (UA) (NEG) MG/DL Urine Ketones (NEG) MG/DL Urine Blood (NEG) Urine Nitrite (NEG) Ur Leukocyte Esterase (NEG) Urine RBC (0) /HPF Urine WBC (0-4) /HPF Urine WBC Clumps Ur Squamous Epith Cells /LPF Ur Renal Epithelial Cell [place] Biurate Crystals Calcium Carbonate Cryst Calcium Phosphate Cryst Calcium Oxalate Crystal Leucine Crystals Cystine Crystals Uric Acid Crystals Triple Phos Crystals [place] Crystals Tyrosine Crystals Other Crystals Amorphous Sediment Urine Bacteria /LPF Epithelial Casts Fatty Casts Hyaline Casts Granular Casts Waxy Casts RBC Casts WBC Casts Other Casts Urine Mucus /LPF Urine Trichomonas Urine Yeast Urine Sperm Ur Oval Fat Bodies Chlam trachomat DNA PCR (Not Detect.) Coronavirus (PCR) NEGATIVE (Negative) Influenza Type A (PCR) NEGATIVE (Negative) Influenza Type B (PCR) NEGATIVE (Negative) N.gonorrhoeae DNA (PCR) (Not Detect.) RSV RNA Qual (PCR) NEGATIVE (Negative) 01/07/21 01/07/21 01/07/21 Range/Units 14:28 14:28 14:28 WBC (4.8-10.8) X10*3/uL RBC (4.20-5.50) X10*6/uL Hgb (12.0-16.0) g/dl Hct (37-47) % MCV (80-98) fL MCH (27.0-33.0) pg MCHC (31.0-35.0) g/dl RDW (11.0-16.0) % Plt Count (160-400) X10*3/uL MPV (9.4-12.3) fL Immature Gran % (Auto) (0.0-0.4) % Neut % (Auto) (45-73) % Lymph % (Auto) (20-40) % [place] % (Auto) (2-11) % Eos % (Auto) (0-4) % Baso % (Auto) (0-2) % Lymph # (Auto) (1.2-4.9) X10*3/uL [place] # (Auto) (0.1-1.2) X10*3/uL Eos # (Auto) (0.0-0.4) X10*3/uL Baso # (Auto) (0.0-0.2) X10*3/uL Abs Immat Gran (auto) (0.00-0.03) X10*3/uL Absolute Neuts (auto) (2.0-8.3) X10*3/uL Absolute Nucleated RBC (0.0-0.012) X10*3/uL Nucleated RBC % (auto) (0.0-0.2) /100WBC ESR (0-20) MM/HR Hold Purple Top PT (9.9-13.0) SEC INR (0.9-1.1) Sodium (135-145) mmol/L Potassium (3.3-5.1) mmol/L Chloride (96-108) mmol/L Carbon Dioxide (22-29) mmol/L Anion Gap (12-20) BUN (9-16) mg/dL Creatinine (0.5-1.4) mg/dL Estim Creat Clear Calc Estimated GFR Random Glucose (60-115) mg/dL Lactic Acid (0.5-2.0) mmol/L Calcium (8.4-10.2) mg/dL Magnesium (1.6-2.6) mg/dL Total Bilirubin (0.0-1.0) mg/dL AST (5-31) U/L ALT (0-31) U/L Alkaline Phosphatase (39-117) U/L Total Creatine Kinase (26-140) U/L Troponin I High Sens (<3.5-17.0) ng/L C-Reactive Protein (< or = 0.50) mg/dL B-Natriuretic Peptide (<100) pg/mL Total Protein (6.5-8.0) g/dL Albumin (3.5-5.0) g/dL Procalcitonin ng/mL Urine Color YELLOW Cancelled Urine Appearance HAZY Cancelled Urine pH 6.0 Cancelled (5.0-8.0) Ur Specific [place] 1.025 Cancelled (1.005-1.025) Urine Protein 2+ H Cancelled (NEG-TRACE) MG/DL Urine Glucose (UA) >=1000 H Cancelled (NEG) MG/DL Urine Ketones NEG Cancelled (NEG) MG/DL Urine Blood TRACE Cancelled (NEG) Urine Nitrite POS H Cancelled (NEG) Ur Leukocyte Esterase NEG Cancelled (NEG) Urine RBC 1-4 Cancelled (0) /HPF Urine WBC 15-29 H Cancelled (0-4) /HPF Urine WBC Clumps Cancelled Ur Squamous Epith Cells 1+ Cancelled /LPF Ur Renal Epithelial Cell Cancelled [place] Biurate Crystals Cancelled Calcium Carbonate Cryst Cancelled Calcium Phosphate Cryst Cancelled Calcium Oxalate Crystal Cancelled Leucine Crystals Cancelled Cystine Crystals Cancelled Uric Acid Crystals Cancelled Triple Phos Crystals Cancelled [place] Crystals Cancelled Tyrosine Crystals Cancelled Other Crystals Cancelled Amorphous Sediment Cancelled Urine Bacteria 3+ Cancelled /LPF Epithelial Casts Cancelled Fatty Casts Cancelled Hyaline Casts Cancelled Granular Casts Cancelled Waxy Casts Cancelled RBC Casts Cancelled WBC Casts Cancelled Other Casts Cancelled Urine Mucus 1+ Cancelled /LPF Urine Trichomonas Cancelled Urine Yeast Cancelled Urine Sperm Cancelled Ur Oval Fat Bodies Cancelled Chlam trachomat DNA PCR NOT DETECTED (Not Detect.) Coronavirus (PCR) (Negative) Influenza Type A (PCR) (Negative) Influenza Type B (PCR) (Negative) N.gonorrhoeae DNA (PCR) NOT DETECTED (Not Detect.) RSV RNA Qual (PCR) (Negative) 01/07/21 Range/Units 15:52 WBC (4.8-10.8) X10*3/uL RBC (4.20-5.50) X10*6/uL Hgb (12.0-16.0) g/dl Hct (37-47) % MCV (80-98) fL MCH (27.0-33.0) pg MCHC (31.0-35.0) g/dl RDW (11.0-16.0) % Plt Count (160-400) X10*3/uL MPV (9.4-12.3) fL Immature Gran % (Auto) (0.0-0.4) % Neut % (Auto) (45-73) % Lymph % (Auto) (20-40) % [place] % (Auto) (2-11) % Eos % (Auto) (0-4) % Baso % (Auto) (0-2) % Lymph # (Auto) (1.2-4.9) X10*3/uL [place] # (Auto) (0.1-1.2) X10*3/uL Eos # (Auto) (0.0-0.4) X10*3/uL Baso # (Auto) (0.0-0.2) X10*3/uL Abs Immat Gran (auto) (0.00-0.03) X10*3/uL Absolute Neuts (auto) (2.0-8.3) X10*3/uL Absolute Nucleated RBC (0.0-0.012) X10*3/uL Nucleated RBC % (auto) (0.0-0.2) /100WBC ESR (0-20) MM/HR Hold Purple Top PT (9.9-13.0) SEC INR (0.9-1.1) Sodium (135-145) mmol/L Potassium (3.3-5.1) mmol/L Chloride (96-108) mmol/L Carbon Dioxide (22-29) mmol/L Anion Gap (12-20) BUN (9-16) mg/dL Creatinine (0.5-1.4) mg/dL Estim Creat Clear Calc Estimated GFR Random Glucose (60-115) mg/dL Lactic Acid (0.5-2.0) mmol/L Calcium (8.4-10.2) mg/dL Magnesium (1.6-2.6) mg/dL Total Bilirubin (0.0-1.0) mg/dL AST (5-31) U/L ALT (0-31) U/L Alkaline Phosphatase (39-117) U/L Total Creatine Kinase (26-140) U/L Troponin I High Sens 41.5 H* (<3.5-17.0) ng/L C-Reactive Protein (< or = 0.50) mg/dL B-Natriuretic Peptide (<100) pg/mL Total Protein (6.5-8.0) g/dL Albumin (3.5-5.0) g/dL Procalcitonin ng/mL Urine Color Urine Appearance Urine pH (5.0-8.0) Ur Specific [place] (1.005-1.025) Urine Protein (NEG-TRACE) MG/DL Urine Glucose (UA) (NEG) MG/DL Urine Ketones (NEG) MG/DL Urine Blood (NEG) Urine Nitrite (NEG) Ur Leukocyte Esterase (NEG) Urine RBC (0) /HPF Urine WBC (0-4) /HPF Urine WBC Clumps Ur Squamous Epith Cells /LPF Ur Renal Epithelial Cell Brandon Biurate Crystals Calcium Carbonate Cryst Calcium Phosphate Cryst Calcium Oxalate Crystal Leucine Crystals Cystine Crystals Uric Acid Crystals Triple Phos Crystals Talc Crystals Tyrosine Crystals Other Crystals Amorphous Sediment Urine Bacteria /LPF Epithelial Casts Fatty Casts Hyaline Casts Granular Casts Waxy Casts RBC Casts WBC Casts Other Casts Urine Mucus /LPF Urine Trichomonas Urine Yeast Urine Sperm Ur Oval Fat Bodies Chlam trachomat DNA PCR (Not Detect.) Coronavirus (PCR) (Negative) Influenza Type A (PCR) (Negative) Influenza Type B (PCR) (Negative) N.gonorrhoeae DNA (PCR) (Not Detect.) RSV RNA Qual (PCR) (Negative) <Gina No, RO[employer] - Last Filed: 01/07/21 17:53> Lab Results 01/07/21 01/07/21 01/07/21 Range/Units 12:40 12:40 12:40 WBC 21.6 H (4.8-10.8) X10*3/uL RBC 3.52 L (4.20-5.50) X10*6/uL Hgb 12.0 (12.0-16.0) g/dl Hct 33.5 L (37-47) % MCV 95.2 (80-98) fL MCH 34.1 H (27.0-33.0) pg MCHC 35.8 H (31.0-35.0) g/dl RDW 14.2 (11.0-16.0) % Plt Count 309 (160-400) X10*3/uL MPV 9.7 (9.4-12.3) fL Immature Gran % (Auto) 0.6 H (0.0-0.4) % Neut % (Auto) 89.2 H (45-73) % Lymph % (Auto) 5.4 L (20-40) % [place] % (Auto) 4.0 (2-11) % Eos % (Auto) 0.6 (0-4) % Baso % (Auto) 0.2 (0-2) % Lymph # (Auto) 1.2 (1.2-4.9) X10*3/uL [place] # (Auto) 0.9 (0.1-1.2) X10*3/uL Eos # (Auto) 0.1 (0.0-0.4) X10*3/uL Baso # (Auto) 0.1 (0.0-0.2) X10*3/uL Abs Immat Gran (auto) 0.14 H (0.00-0.03) X10*3/uL Absolute Neuts (auto) 19.2 H (2.0-8.3) X10*3/uL Absolute Nucleated RBC 0.000 (0.0-0.012) X10*3/uL Nucleated RBC % (auto) 0.0 (0.0-0.2) /100WBC ESR (0-20) MM/HR Hold Purple Top PT 12.7 (9.9-13.0) SEC INR 1.1 (0.9-1.1) Sodium 138 (135-145) mmol/L Potassium 3.5 (3.3-5.1) mmol/L Chloride 101 (96-108) mmol/L Carbon Dioxide 27 (22-29) mmol/L Anion Gap 14 (12-20) BUN 15 (9-16) mg/dL Creatinine 1.09 (0.5-1.4) mg/dL Estim Creat Clear Calc 76.3 Estimated GFR 56 Random Glucose 261 H (60-115) mg/dL Lactic Acid (0.5-2.0) mmol/L Calcium 9.3 (8.4-10.2) mg/dL Magnesium 2.1 (1.6-2.6) mg/dL Total Bilirubin 1.4 H (0.0-1.0) mg/dL AST 15 D (5-31) U/L ALT 19 (0-31) U/L Alkaline Phosphatase 127 H D (39-117) U/L Total Creatine Kinase 37 (26-140) U/L Troponin I High Sens (<3.5-17.0) ng/L C-Reactive Protein 22.63 H (< or = 0.50) mg/dL B-Natriuretic Peptide (<100) pg/mL Total Protein 6.8 D (6.5-8.0) g/dL Albumin 4.0 (3.5-5.0) g/dL Procalcitonin ng/mL Urine Color Urine Appearance Urine pH (5.0-8.0) Ur Specific [place] (1.005-1.025) Urine Protein (NEG-TRACE) MG/DL Urine Glucose (UA) (NEG) MG/DL Urine Ketones (NEG) MG/DL Urine Blood (NEG) Urine Nitrite (NEG) Ur Leukocyte Esterase (NEG) Urine RBC (0) /HPF Urine WBC (0-4) /HPF Urine WBC Clumps Ur Squamous Epith Cells /LPF Ur Renal Epithelial Cell Brandon Biurate Crystals Calcium Carbonate Cryst Calcium Phosphate Cryst Calcium Oxalate Crystal Leucine Crystals Cystine Crystals Uric Acid Crystals Triple Phos Crystals Talc Crystals Tyrosine Crystals Other Crystals Amorphous Sediment Urine Bacteria /LPF Epithelial Casts Fatty Casts Hyaline Casts Granular Casts Waxy Casts RBC Casts WBC Casts Other Casts Urine Mucus /LPF Urine Trichomonas Urine Yeast Urine Sperm Ur Oval Fat Bodies Chlam trachomat DNA PCR (Not Detect.) Coronavirus (PCR) (Negative) Influenza Type A (PCR) (Negative) Influenza Type B (PCR) (Negative) N.gonorrhoeae DNA (PCR) (Not Detect.) RSV RNA Qual (PCR) (Negative) 01/07/21 01/07/21 01/07/21 Range/Units 12:40 12:40 12:40 WBC (4.8-10.8) X10*3/uL RBC (4.20-5.50) X10*6/uL Hgb (12.0-16.0) g/dl Hct (37-47) % MCV (80-98) fL MCH (27.0-33.0) pg MCHC (31.0-35.0) g/dl RDW (11.0-16.0) % Plt Count (160-400) X10*3/uL MPV (9.4-12.3) fL Immature Gran % (Auto) (0.0-0.4) % Neut % (Auto) (45-73) % Lymph % (Auto) (20-40) % [place] % (Auto) (2-11) % Eos % (Auto) (0-4) % Baso % (Auto) (0-2) % Lymph # (Auto) (1.2-4.9) X10*3/uL [place] # (Auto) (0.1-1.2) X10*3/uL Eos # (Auto) (0.0-0.4) X10*3/uL Baso # (Auto) (0.0-0.2) X10*3/uL Abs Immat Gran (auto) (0.00-0.03) X10*3/uL Absolute Neuts (auto) (2.0-8.3) X10*3/uL Absolute Nucleated RBC (0.0-0.012) X10*3/uL Nucleated RBC % (auto) (0.0-0.2) /100WBC ESR 59 H (0-20) MM/HR Hold Purple Top SEE NOTE PT (9.9-13.0) SEC INR (0.9-1.1) Sodium (135-145) mmol/L Potassium (3.3-5.1) mmol/L Chloride (96-108) mmol/L Carbon Dioxide (22-29) mmol/L Anion Gap (12-20) BUN (9-16) mg/dL Creatinine (0.5-1.4) mg/dL Estim Creat Clear Calc Estimated GFR Random Glucose (60-115) mg/dL Lactic Acid 1.0 (0.5-2.0) mmol/L Calcium (8.4-10.2) mg/dL Magnesium (1.6-2.6) mg/dL Total Bilirubin (0.0-1.0) mg/dL AST (5-31) U/L ALT (0-31) U/L Alkaline Phosphatase (39-117) U/L Total Creatine Kinase (26-140) U/L Troponin I High Sens (<3.5-17.0) ng/L C-Reactive Protein (< or = 0.50) mg/dL B-Natriuretic Peptide (<100) pg/mL Total Protein (6.5-8.0) g/dL Albumin (3.5-5.0) g/dL Procalcitonin ng/mL Urine Color Urine Appearance Urine pH (5.0-8.0) Ur Specific [place] (1.005-1.025) Urine Protein (NEG-TRACE) MG/DL Urine Glucose (UA) (NEG) MG/DL Urine Ketones (NEG) MG/DL Urine Blood (NEG) Urine Nitrite (NEG) Ur Leukocyte Esterase (NEG) Urine RBC (0) /HPF Urine WBC (0-4) /HPF Urine WBC Clumps Ur Squamous Epith Cells /LPF Ur Renal Epithelial Cell [place] Biurate Crystals Calcium Carbonate Cryst Calcium Phosphate Cryst Calcium Oxalate Crystal Leucine Crystals Cystine Crystals Uric Acid Crystals Triple Phos Crystals Talc Crystals Tyrosine Crystals Other Crystals Amorphous Sediment Urine Bacteria /LPF Epithelial Casts Fatty Casts Hyaline Casts Granular Casts Waxy Casts RBC Casts WBC Casts Other Casts Urine Mucus /LPF Urine Trichomonas Urine Yeast Urine Sperm Ur Oval Fat Bodies Chlam trachomat DNA PCR (Not Detect.) Coronavirus (PCR) (Negative) Influenza Type A (PCR) (Negative) Influenza Type B (PCR) (Negative) N.gonorrhoeae DNA (PCR) (Not Detect.) RSV RNA Qual (PCR) (Negative) 01/07/21 01/07/21 01/07/21 Range/Units 12:40 12:40 13:52 WBC (4.8-10.8) X10*3/uL RBC (4.20-5.50) X10*6/uL Hgb (12.0-16.0) g/dl Hct (37-47) % MCV (80-98) fL MCH (27.0-33.0) pg MCHC (31.0-35.0) g/dl RDW (11.0-16.0) % Plt Count (160-400) X10*3/uL MPV (9.4-12.3) fL Immature Gran % (Auto) (0.0-0.4) % Neut % (Auto) (45-73) % Lymph % (Auto) (20-40) % [place] % (Auto) (2-11) % Eos % (Auto) (0-4) % Baso % (Auto) (0-2) % Lymph # (Auto) (1.2-4.9) X10*3/uL [place] # (Auto) (0.1-1.2) X10*3/uL Eos # (Auto) (0.0-0.4) X10*3/uL Baso # (Auto) (0.0-0.2) X10*3/uL Abs Immat Gran (auto) (0.00-0.03) X10*3/uL Absolute Neuts (auto) (2.0-8.3) X10*3/uL Absolute Nucleated RBC (0.0-0.012) X10*3/uL Nucleated RBC % (auto) (0.0-0.2) /100WBC ESR (0-20) MM/HR Hold Purple Top PT (9.9-13.0) SEC INR (0.9-1.1) Sodium (135-145) mmol/L Potassium (3.3-5.1) mmol/L Chloride (96-108) mmol/L Carbon Dioxide (22-29) mmol/L Anion Gap (12-20) BUN (9-16) mg/dL Creatinine (0.5-1.4) mg/dL Estim Creat Clear Calc Estimated GFR Random Glucose (60-115) mg/dL Lactic Acid (0.5-2.0) mmol/L Calcium (8.4-10.2) mg/dL Magnesium (1.6-2.6) mg/dL Total Bilirubin (0.0-1.0) mg/dL AST (5-31) U/L ALT (0-31) U/L Alkaline Phosphatase (39-117) U/L Total Creatine Kinase (26-140) U/L Troponin I High Sens 43.6 H* (<3.5-17.0) ng/L C-Reactive Protein (< or = 0.50) mg/dL B-Natriuretic Peptide 1285 H (<100) pg/mL Total Protein (6.5-8.0) g/dL Albumin (3.5-5.0) g/dL Procalcitonin 0.23 ng/mL Urine Color Urine Appearance Urine pH (5.0-8.0) Ur Specific [place] (1.005-1.025) Urine Protein (NEG-TRACE) MG/DL Urine Glucose (UA) (NEG) MG/DL Urine Ketones (NEG) MG/DL Urine Blood (NEG) Urine Nitrite (NEG) Ur Leukocyte Esterase (NEG) Urine RBC (0) /HPF Urine WBC (0-4) /HPF Urine WBC Clumps Ur Squamous Epith Cells /LPF Ur Renal Epithelial Cell [place] Biurate Crystals Calcium Carbonate Cryst Calcium Phosphate Cryst Calcium Oxalate Crystal Leucine Crystals Cystine Crystals Uric Acid Crystals Triple Phos Crystals [place]c Crystals Tyrosine Crystals Other Crystals Amorphous Sediment Urine Bacteria /LPF Epithelial Casts Fatty Casts Hyaline Casts Granular Casts Waxy Casts RBC Casts WBC Casts Other Casts Urine Mucus /LPF Urine Trichomonas Urine Yeast Urine Sperm Ur Oval Fat Bodies Chlam trachomat DNA PCR (Not Detect.) Coronavirus (PCR) NEGATIVE (Negative) Influenza Type A (PCR) NEGATIVE (Negative) Influenza Type B (PCR) NEGATIVE (Negative) N.gonorrhoeae DNA (PCR) (Not Detect.) RSV RNA Qual (PCR) NEGATIVE (Negative) 01/07/21 01/07/21 01/07/21 Range/Units 14:28 14:28 14:28 WBC (4.8-10.8) X10*3/uL RBC (4.20-5.50) X10*6/uL Hgb (12.0-16.0) g/dl Hct (37-47) % MCV (80-98) fL MCH (27.0-33.0) pg MCHC (31.0-35.0) g/dl RDW (11.0-16.0) % Plt Count (160-400) X10*3/uL MPV (9.4-12.3) fL Immature Gran % (Auto) (0.0-0.4) % Neut % (Auto) (45-73) % Lymph % (Auto) (20-40) % [place] % (Auto) (2-11) % Eos % (Auto) (0-4) % Baso % (Auto) (0-2) % Lymph # (Auto) (1.2-4.9) X10*3/uL [place] # (Auto) (0.1-1.2) X10*3/uL Eos # (Auto) (0.0-0.4) X10*3/uL Baso # (Auto) (0.0-0.2) X10*3/uL Abs Immat Gran (auto) (0.00-0.03) X10*3/uL Absolute Neuts (auto) (2.0-8.3) X10*3/uL Absolute Nucleated RBC (0.0-0.012) X10*3/uL Nucleated RBC % (auto) (0.0-0.2) /100WBC ESR (0-20) MM/HR Hold Purple Top PT (9.9-13.0) SEC INR (0.9-1.1) Sodium (135-145) mmol/L Potassium (3.3-5.1) mmol/L Chloride (96-108) mmol/L Carbon Dioxide (22-29) mmol/L Anion Gap (12-20) BUN (9-16) mg/dL Creatinine (0.5-1.4) mg/dL Estim Creat Clear Calc Estimated GFR Random Glucose (60-115) mg/dL Lactic Acid (0.5-2.0) mmol/L Calcium (8.4-10.2) mg/dL Magnesium (1.6-2.6) mg/dL Total Bilirubin (0.0-1.0) mg/dL AST (5-31) U/L ALT (0-31) U/L Alkaline Phosphatase (39-117) U/L Total Creatine Kinase (26-140) U/L Troponin I High Sens (<3.5-17.0) ng/L C-Reactive Protein (< or = 0.50) mg/dL B-Natriuretic Peptide (<100) pg/mL Total Protein (6.5-8.0) g/dL Albumin (3.5-5.0) g/dL Procalcitonin ng/mL Urine Color YELLOW Cancelled Urine Appearance HAZY Cancelled Urine pH 6.0 Cancelled (5.0-8.0) Ur Specific [place] 1.025 Cancelled (1.005-1.025) Urine Protein 2+ H Cancelled (NEG-TRACE) MG/DL Urine Glucose (UA) >=1000 H Cancelled (NEG) MG/DL Urine Ketones NEG Cancelled (NEG) MG/DL Urine Blood TRACE Cancelled (NEG) Urine Nitrite POS H Cancelled (NEG) Ur Leukocyte Esterase NEG Cancelled (NEG) Urine RBC 1-4 Cancelled (0) /HPF Urine WBC 15-29 H Cancelled (0-4) /HPF Urine WBC Clumps Cancelled Ur Squamous Epith Cells 1+ Cancelled /LPF Ur Renal Epithelial Cell Cancelled [place] Biurate Crystals Cancelled Calcium Carbonate Cryst Cancelled Calcium Phosphate Cryst Cancelled Calcium Oxalate Crystal Cancelled Leucine Crystals Cancelled Cystine Crystals Cancelled Uric Acid Crystals Cancelled Triple Phos Crystals Cancelled [place] Crystals Cancelled Tyrosine Crystals Cancelled Other Crystals Cancelled Amorphous Sediment Cancelled Urine Bacteria 3+ Cancelled /LPF Epithelial Casts Cancelled Fatty Casts Cancelled Hyaline Casts Cancelled Granular Casts Cancelled Waxy Casts Cancelled RBC Casts Cancelled WBC Casts Cancelled Other Casts Cancelled Urine Mucus 1+ Cancelled /LPF Urine Trichomonas Cancelled Urine Yeast Cancelled Urine Sperm Cancelled Ur Oval Fat Bodies Cancelled Chlam trachomat DNA PCR NOT DETECTED (Not Detect.) Coronavirus (PCR) (Negative) Influenza Type A (PCR) (Negative) Influenza Type B (PCR) (Negative) N.gonorrhoeae DNA (PCR) NOT DETECTED (Not Detect.) RSV RNA Qual (PCR) (Negative) 01/07/21 Range/Units 15:52 WBC (4.8-10.8) X10*3/uL RBC (4.20-5.50) X10*6/uL Hgb (12.0-16.0) g/dl Hct (37-47) % MCV (80-98) fL MCH (27.0-33.0) pg MCHC (31.0-35.0) g/dl RDW (11.0-16.0) % Plt Count (160-400) X10*3/uL MPV (9.4-12.3) fL Immature Gran % (Auto) (0.0-0.4) % Neut % (Auto) (45-73) % Lymph % (Auto) (20-40) % [place] % (Auto) (2-11) % Eos % (Auto) (0-4) % Baso % (Auto) (0-2) % Lymph # (Auto) (1.2-4.9) X10*3/uL [place] # (Auto) (0.1-1.2) X10*3/uL Eos # (Auto) (0.0-0.4) X10*3/uL Baso # (Auto) (0.0-0.2) X10*3/uL Abs Immat Gran (auto) (0.00-0.03) X10*3/uL Absolute Neuts (auto) (2.0-8.3) X10*3/uL Absolute Nucleated RBC (0.0-0.012) X10*3/uL Nucleated RBC % (auto) (0.0-0.2) /100WBC ESR (0-20) MM/HR Hold Purple Top PT (9.9-13.0) SEC INR (0.9-1.1) Sodium (135-145) mmol/L Potassium (3.3-5.1) mmol/L Chloride (96-108) mmol/L Carbon Dioxide (22-29) mmol/L Anion Gap (12-20) BUN (9-16) mg/dL Creatinine (0.5-1.4) mg/dL Estim Creat Clear Calc Estimated GFR Random Glucose (60-115) mg/dL Lactic Acid (0.5-2.0) mmol/L Calcium (8.4-10.2) mg/dL Magnesium (1.6-2.6) mg/dL Total Bilirubin (0.0-1.0) mg/dL AST (5-31) U/L ALT (0-31) U/L Alkaline Phosphatase (39-117) U/L Total Creatine Kinase (26-140) U/L Troponin I High Sens 41.5 H* (<3.5-17.0) ng/L C-Reactive Protein (< or = 0.50) mg/dL B-Natriuretic Peptide (<100) pg/mL Total Protein (6.5-8.0) g/dL Albumin (3.5-5.0) g/dL Procalcitonin ng/mL Urine Color Urine Appearance Urine pH (5.0-8.0) Ur Specific [place] (1.005-1.025) Urine Protein (NEG-TRACE) MG/DL Urine Glucose (UA) (NEG) MG/DL Urine Ketones (NEG) MG/DL Urine Blood (NEG) Urine Nitrite (NEG) Ur Leukocyte Esterase (NEG) Urine RBC (0) /HPF Urine WBC (0-4) /HPF Urine WBC Clumps Ur Squamous Epith Cells /LPF Ur Renal Epithelial Cell [place] Biurate Crystals Calcium Carbonate Cryst Calcium Phosphate Cryst Calcium Oxalate Crystal Leucine Crystals Cystine Crystals Uric Acid Crystals Triple Phos Crystals [place] Crystals Tyrosine Crystals Other Crystals Amorphous Sediment Urine Bacteria /LPF Epithelial Casts Fatty Casts Hyaline Casts Granular Casts Waxy Casts RBC Casts WBC Casts Other Casts Urine Mucus /LPF Urine Trichomonas Urine Yeast Urine Sperm Ur Oval Fat Bodies Chlam trachomat DNA PCR (Not Detect.) Coronavirus (PCR) (Negative) Influenza Type A (PCR) (Negative) Influenza Type B (PCR) (Negative) N.gonorrhoeae DNA (PCR) (Not Detect.) RSV RNA Qual (PCR) (Negative) <Carlso Rucker MD - Last Filed: 01/07/21 20:00> Critical Care Time Critical Care Time Critical Care Time: Yes <SPIKE [place]rett - Last Filed: 01/07/21 13:08> Total Critical Care Time: 60 <SPIKE [place] - Last Filed: 01/07/21 13:08> Attestation: I personally attest to this time spent taking care of the patient <SPIKE [place] - Last Filed: 01/07/21 13:08> Discharge Plan Discharge Clinical Impression: Leukocytosis, CRP elevated, Joint pain, UTI (urinary tract infection), Elevated troponin <SPIKE [place] - Last Filed: 01/07/21 13:08> Patient Disposition: Admitted As Inpatient <SPIKE [place] - Last Filed: 01/07/21 13:08>
[2021-01-07] MEDS: oxyCODONE HCl Immed Release 5 MG TABLET PO ×2 (13:14→15:36)
[2021-01-07 13:15] LABS: MANUAL DIFF FLAG NO
[2021-01-07 13:17] LABS: Basophils Absolute Auto 0.1 X10*3/uL (0.0-0.2); Basophils Percent Auto 0.2 % (0-2); Eosinophils Absolute Auto 0.1 X10*3/uL (0.0-0.4); Eosinophils Percent Auto 0.6 % (0-4); Hematocrit 33.5 % (37-47); Imm Gran Abs Auto 0.14 X10*3/uL (0.00-0.03); Imm Gran Pct Auto 0.6 % (0.0-0.4); Lymphocytes Absolute Auto 1.2 X10*3/uL (1.2-4.9); Lymphocytes Percent Auto 5.4 % (20-40); Mean Corpuscular HGB Conc 35.8 g/dl (31.0-35.0); Mean Corpuscular Hemoglobin 34.1 pg (27.0-33.0); Mean Corpuscular Volume 95.2 fL (80-98); Mean Platelet Volume 9.7 fL (9.4-12.3); Monocytes Absolute Auto 0.9 X10*3/uL (0.1-1.2); Neutrophils Absolute Auto 19.2 X10*3/uL (2.0-8.3); Neutrophils Percent Auto 89.2 % (45-73); Platelet Count 309 X10*3/uL (160-400); Red Blood Count 3.52 X10*6/uL (4.20-5.50); Red Cell Distribution Width 14.2 % (11.0-16.0); White Blood Count 21.6 X10*3/uL (4.8-10.8)
[2021-01-07 13:25] LABS: INTERNATIONAL NORM RATIO 1.1 (0.9-1.1); Prothrombin Time 12.7 SEC (9.9-13.0)
[2021-01-07 13:32] LABS: Alanine Aminotransferase 19 U/L (0-31); Alkaline Phosphatase 127 U/L (39-117); Anion Gap 14 (12-20); Aspartate Amino Transferase 15 U/L (5-31); Bilirubin Total 1.4 mg/dL (0.0-1.0); Blood Urea Nitrogen 15 mg/dL (9-16); C Reactive Protein 22.63 mg/dL (< or = 0.50); Calcium 9.3 mg/dL (8.4-10.2); Carbon Dioxide 27 mmol/L (22-29); Chloride 101 mmol/L (96-108); Creatinine Clr Calc Pharmacy 76.3; Estimated Glomerular Filt Rate 56; Glucose Random 261 mg/dL (60-115); Magnesium 2.1 mg/dL (1.6-2.6); Potassium 3.5 mmol/L (3.3-5.1); Sodium 138 mmol/L (135-145); Total Protein 6.8 g/dL (6.5-8.0)
[2021-01-07 13:59] LABS: Erythrocyte Sedimentation Rate 59 MM/HR (0-20)
[2021-01-07] MEDS: Spironolactone 25 MG TABLET PO (14:03)
[2021-01-07] MEDS: hydrALAZINE HCl 50 MG TABLET PO (14:03)
[2021-01-07] MEDS: amLODIPine Besylate 10 MG TABLET PO (14:04)
[2021-01-07 14:38] LABS: Influenza A PCR NEGATIVE (Negative); Influenza B PCR NEGATIVE (Negative); Resp Syncy Virus RNA Qual PCR NEGATIVE (Negative); SARS COV2 PCR INHOUSE NEGATIVE (Negative)
[2021-01-07 14:42] LABS: Appearance Urine HAZY; Color Urine YELLOW; Glucose Urine UA >=1000 MG/DL (NEG); Leukocyte Esterase Urine NEG (NEG); Specific Gravity - Urine 1.025 (1.005-1.025); Urine Blood TRACE (NEG); Urine Ketones NEG (NEG); Urine Protein 2+ MG/DL (NEG-TRACE)
[2021-01-07 14:51] LABS: Bacteria Urine 3+ /LPF; Mucus Urine 1+ /LPF; Nitrite Urine POS (NEG); Squamous Epithelial Cell Urine 1+ /LPF; UACC Culture Trigger YES
[2021-01-07 15:08] LABS: Troponin-I High Sensitivity 43.6 ng/L (<3.5-17.0)
[2021-01-07 15:37] LABS: B Type Natriuretic Peptide 1285 pg/mL (<100)
[2021-01-07 16:31] LABS: CT PCR NOT DETECTED (Not Detect.); NG PCR NOT DETECTED (Not Detect.)
[2021-01-07] MEDS: Morphine Sulfate 4 MG/ML CARTRIDGE IVPUSH ×3 (16:47→22:25)
[2021-01-07 17:57] LABS: Procalcitonin 0.23 ng/mL
[2021-01-07] MEDS: 0.9 % Sodium Chloride 1,000 ML 999 ML IV (18:02)
[2021-01-07] MEDS: levoFLOXacin/D5W 750 MG/150 ML PIGGYBACK 100 MG IV (18:02)
--- NOTE | 2021-01-07 18:42 | P.HPHOSP_ITS ---
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 She comes to the ED today with diffuse body ache, more prominent in the left wrist/hand joint and left knee joint and is not able care for herself or childre. She doesn't quite feel that this is like this a flare of rheumatoid compare to previous episodes. She has so much pain to the point of not able to make to the bathroom and soiled he rself. She has no fever, no viral symptoms such as cough, no neck pain, no stiffness, no diarrhea. Even simple rub on the skin elicit the pain. Her joints are visibly all swollen. Her blood has been very high but she says this is unsual and has been taking her medication. Work up thus far has revealed WBC of 21K, and UA is positive for UTI, ESR and CRP are high, pro-calcitonin is low Review of Systems Review of Systems: Gen: no fever Resp: no sob, no cough CV: no chest, no VAZQUEZ, no leg edema GI: No n/v, no abd pain Neuro: No confusion MSK: Diffuse joint aches in nearly all joint and most prominety in hand and knee joints. Yes all other systems are reviewed and are negative [facility] Medical History Anxiety Bipolar 1 disorder Cardiomyopathy CKD (chronic kidney disease) stage 2, GFR 60-89 ml/min Diabetes mellitus Eclampsia Fatty liver H/O mixed connective tissue disease Heart block AV second degree High cholesterol History of DVT (deep vein thrombosis) HTN (hypertension) Hypersomnia Lupus Migraines Nicotine dependence, cigarettes, uncomplicated (~1999) PTSD (post-traumatic stress disorder) Rheumatoid arthritis Sjogren's disease Family History (Updated 01/07/21 @ 18:43 by Esteban Mejía MD) Other Diabetes HTN (hypertension) Pertinent family history: . Surgical History History of bronchoscopy (~11/2020) History of cholecystectomy (~05/2014) History of hysterectomy Social History Household Members: Children Household Members Other:: children Housing: House Are you a primary managed care liaison to a significant other at home: No Do you presently have visiting nurse or other home services: No Alcohol intake: current Alcohol intake frequency: does not drink Alcohol type: hard liquor Patient Tobacco Use Status: Current everyday Tobacco user Tobacco use type: Cigarette Cigarette Packs Per Day: 0.5 Cigarettes Per Day: 10 Years Smoked: 20 Second Hand Smoke Exposure: Yes Substance Use Type: Marijuana service: No Current occupational status: disabled Meds Allergies Allergy/AdvReac Type Severity Reaction Status Date / Time Cephalosporins Allergy Intermediate RASH ALL Verified 12/24/20 11:18 [CEPHALOSPORINS] OVER amoxicillin Allergy Unknown rash Verified 12/24/20 11:18 cefaclor [From Ceclor] Allergy Unknown RASH Verified 12/24/20 11:18 cephalexin Allergy Unknown rash Verified 12/24/20 11:18 cephradine [From VELOSEF] Allergy Unknown RASH Verified 12/24/20 11:18 Penicillins [PENICILLINS] Allergy Unknown RASH Verified 12/24/20 11:18 gabapentin [GABAPENTIN] AdvReac Unknown RESTLESS Verified 12/24/20 11:18 LEGS, Body becomes very uncomfortable Active Medications: Current Medications Pharmacy Consult (Consult Rx Perform Med Rec) 1 each MISCELLANE ONCE PRN PRN Reason: Consult order Home Medications Medication Instructions Recorded Confirmed Last Taken Type aspirin 81 mg tablet,delayed 81 mg PO DAILY 09/14/20 01/07/21 01/06/21 History release dapagliflozin 10 mg-metformin ER 1 tab PO DAILY 10/25/20 01/07/21 01/06/21 History 1,000 mg tablet,extended release 24hr (Xigduo XR) clonazepam 1 mg tablet 1 mg PO DAILY PRN 11/05/20 01/07/21 01/06/21 History amlodipine 10 mg tablet 10 mg PO DAILY 11/08/20 01/07/21 01/07/21 History lamotrigine 100 mg tablet 150 mg PO DAILY tab 11/08/20 01/07/21 01/06/21 History spironolactone 25 mg tablet 100 mg PO DAILY tab 11/08/20 01/07/21 01/07/21 History Physical Exam 2 Vital Signs and Narrative: Vital Signs: Last Vital Signs Temp 99.5 F 01/07/21 16:40 Pulse 108 H 01/07/21 18:05 Resp 20 01/07/21 18:05 BP 178/91 H 01/07/21 18:05 Pulse Ox 98 01/07/21 18:05 Body Mass Index 29.8 Constitutional Awake and Alert, she is crying because she is having pain everywhere and left knee is most pain Neck Supple, No lymphadenopathy Cardiovascular RRR, No M/R/G, S1 S2, No S3 S4, No pedal edema Respiratory Lungs clear, No respiratory distress Gastrointestinal Non tender, Non-distended Skin there is some erythema close to the left knee Muscular skeleta finger joint are swollen but but no synovitis, left knee seems bigger and tender well above the knee, area of reness adjacent to the knee Neurological Alert & oriented x3 Psychological in distresss Results Labs CBC and Chem 7: 01/08/21 05:53 01/08/21 05:53 Labs: Laboratory Results - last 24 hr 01/07/21 01/07/21 01/07/21 12:40 12:40 12:40 MCV 95.2 MCH 34.1 H MCHC 35.8 H RDW 14.2 Plt Count 309 MPV 9.7 Immature Gran % (Auto) 0.6 H Neut % (Auto) 89.2 H Lymph % (Auto) 5.4 L [place] % (Auto) 4.0 Eos % (Auto) 0.6 Baso % (Auto) 0.2 Lymph # (Auto) 1.2 [place] # (Auto) 0.9 Eos # (Auto) 0.1 Baso # (Auto) 0.1 Abs Immat Gran (auto) 0.14 H Absolute Neuts (auto) 19.2 H Absolute Nucleated RBC 0.000 Nucleated RBC % (auto) 0.0 ESR Hold Purple Top PT 12.7 INR 1.1 Anion Gap 14 Estim Creat Clear Calc 76.3 Estimated GFR 56 Random Glucose 261 H Lactic Acid Calcium 9.3 Magnesium 2.1 Total Bilirubin 1.4 H AST 15 D ALT 19 Alkaline Phosphatase 127 H D Total Creatine Kinase 37 Troponin I High Sens C-Reactive Protein 22.63 H B-Natriuretic Peptide Total Protein 6.8 D Albumin 4.0 Procalcitonin Urine Color Urine Appearance Urine pH Ur Specific [place] Urine Protein Urine Glucose (UA) Urine Ketones Urine Blood Urine Nitrite Ur Leukocyte Esterase Urine RBC Urine WBC Urine WBC Clumps Ur Squamous Epith Cells Ur Renal Epithelial Cell [place] Biurate Crystals Calcium Carbonate Cryst Calcium Phosphate Cryst Calcium Oxalate Crystal Leucine Crystals Cystine Crystals Uric Acid Crystals Triple Phos Crystals [place] Crystals Tyrosine Crystals Other Crystals Amorphous Sediment Urine Bacteria Epithelial Casts Fatty Casts Hyaline Casts Granular Casts Waxy Casts RBC Casts WBC Casts Other Casts Urine Mucus Urine Trichomonas Urine Yeast Urine Sperm Ur Oval Fat Bodies Chlam trachomat DNA PCR Coronavirus (PCR) Influenza Type A (PCR) Influenza Type B (PCR) N.gonorrhoeae DNA (PCR) RSV RNA Qual (PCR) 01/07/21 01/07/21 01/07/21 12:40 12:40 12:40 MCV MCH MCHC RDW Plt Count MPV Immature Gran % (Auto) Neut % (Auto) Lymph % (Auto) [place] % (Auto) Eos % (Auto) Baso % (Auto) Lymph # (Auto) [place] # (Auto) Eos # (Auto) Baso # (Auto) Abs Immat Gran (auto) Absolute Neuts (auto) Absolute Nucleated RBC Nucleated RBC % (auto) ESR 59 H Hold Purple Top SEE NOTE PT INR Anion Gap Estim Creat Clear Calc Estimated GFR Random Glucose Lactic Acid 1.0 Calcium Magnesium Total Bilirubin AST ALT Alkaline Phosphatase Total Creatine Kinase Troponin I High Sens C-Reactive Protein B-Natriuretic Peptide Total Protein Albumin Procalcitonin Urine Color Urine Appearance Urine pH Ur Specific [place] Urine Protein Urine Glucose (UA) Urine Ketones Urine Blood Urine Nitrite Ur Leukocyte Esterase Urine RBC Urine WBC Urine WBC Clumps Ur Squamous Epith Cells Ur Renal Epithelial Cell [place] Biurate Crystals Calcium Carbonate Cryst Calcium Phosphate Cryst Calcium Oxalate Crystal Leucine Crystals Cystine Crystals Uric Acid Crystals Triple Phos Crystals [place] Crystals Tyrosine Crystals Other Crystals Amorphous Sediment Urine Bacteria Epithelial Casts Fatty Casts Hyaline Casts Granular Casts Waxy Casts RBC Casts WBC Casts Other Casts Urine Mucus Urine Trichomonas Urine Yeast Urine Sperm Ur Oval Fat Bodies Chlam trachomat DNA PCR Coronavirus (PCR) Influenza Type A (PCR) Influenza Type B (PCR) N.gonorrhoeae DNA (PCR) RSV RNA Qual (PCR) 01/07/21 01/07/21 01/07/21 12:40 12:40 13:52 MCV MCH MCHC RDW Plt Count MPV Immature Gran % (Auto) Neut % (Auto) Lymph % (Auto) [place] % (Auto) Eos % (Auto) Baso % (Auto) Lymph # (Auto) [place] # (Auto) Eos # (Auto) Baso # (Auto) Abs Immat Gran (auto) Absolute Neuts (auto) Absolute Nucleated RBC Nucleated RBC % (auto) ESR Hold Purple Top PT INR Anion Gap Estim Creat Clear Calc Estimated GFR Random Glucose Lactic Acid Calcium Magnesium Total Bilirubin AST ALT Alkaline Phosphatase Total Creatine Kinase Troponin I High Sens 43.6 H* C-Reactive Protein B-Natriuretic Peptide 1285 H Total Protein Albumin Procalcitonin 0.23 Urine Color Urine Appearance Urine pH Ur Specific [place] Urine Protein Urine Glucose (UA) Urine Ketones Urine Blood Urine Nitrite Ur Leukocyte Esterase Urine RBC Urine WBC Urine WBC Clumps Ur Squamous Epith Cells Ur Renal Epithelial Cell [place] Biurate Crystals Calcium Carbonate Cryst Calcium Phosphate Cryst Calcium Oxalate Crystal Leucine Crystals Cystine Crystals Uric Acid Crystals Triple Phos Crystals [place] Crystals Tyrosine Crystals Other Crystals Amorphous Sediment Urine Bacteria Epithelial Casts Fatty Casts Hyaline Casts Granular Casts Waxy Casts RBC Casts WBC Casts Other Casts Urine Mucus Urine Trichomonas Urine Yeast Urine Sperm Ur Oval Fat Bodies Chlam trachomat DNA PCR Coronavirus (PCR) NEGATIVE Influenza Type A (PCR) NEGATIVE Influenza Type B (PCR) NEGATIVE N.gonorrhoeae DNA (PCR) RSV RNA Qual (PCR) NEGATIVE 01/07/21 01/07/21 01/07/21 14:28 14:28 14:28 MCV MCH MCHC RDW Plt Count MPV Immature Gran % (Auto) Neut % (Auto) Lymph % (Auto) [place] % (Auto) Eos % (Auto) Baso % (Auto) Lymph # (Auto) [place] # (Auto) Eos # (Auto) Baso # (Auto) Abs Immat Gran (auto) Absolute Neuts (auto) Absolute Nucleated RBC Nucleated RBC % (auto) ESR Hold Purple Top PT INR Anion Gap Estim Creat Clear Calc Estimated GFR Random Glucose Lactic Acid Calcium Magnesium Total Bilirubin AST ALT Alkaline Phosphatase Total Creatine Kinase Troponin I High Sens C-Reactive Protein B-Natriuretic Peptide Total Protein Albumin Procalcitonin Urine Color YELLOW Cancelled Urine Appearance HAZY Cancelled Urine pH 6.0 Cancelled Ur Specific [place] 1.025 Cancelled Urine Protein 2+ H Cancelled Urine Glucose (UA) >=1000 H Cancelled Urine Ketones NEG Cancelled Urine Blood TRACE Cancelled Urine Nitrite POS H Cancelled Ur Leukocyte Esterase NEG Cancelled Urine RBC 1-4 Cancelled Urine WBC 15-29 H Cancelled Urine WBC Clumps Cancelled Ur Squamous Epith Cells 1+ Cancelled Ur Renal Epithelial Cell Cancelled [place] Biurate Crystals Cancelled Calcium Carbonate Cryst Cancelled Calcium Phosphate Cryst Cancelled Calcium Oxalate Crystal Cancelled Leucine Crystals Cancelled Cystine Crystals Cancelled Uric Acid Crystals Cancelled Triple Phos Crystals Cancelled [place] Crystals Cancelled Tyrosine Crystals Cancelled Other Crystals Cancelled Amorphous Sediment Cancelled Urine Bacteria 3+ Cancelled Epithelial Casts Cancelled Fatty Casts Cancelled Hyaline Casts Cancelled Granular Casts Cancelled Waxy Casts Cancelled RBC Casts Cancelled WBC Casts Cancelled Other Casts Cancelled Urine Mucus 1+ Cancelled Urine Trichomonas Cancelled Urine Yeast Cancelled Urine Sperm Cancelled Ur Oval Fat Bodies Cancelled Chlam trachomat DNA PCR NOT DETECTED Coronavirus (PCR) Influenza Type A (PCR) Influenza Type B (PCR) N.gonorrhoeae DNA (PCR) NOT DETECTED RSV RNA Qual (PCR) 01/07/21 15:52 MCV MCH MCHC RDW Plt Count MPV Immature Gran % (Auto) Neut % (Auto) Lymph % (Auto) [place] % (Auto) Eos % (Auto) Baso % (Auto) Lymph # (Auto) [place] # (Auto) Eos # (Auto) Baso # (Auto) Abs Immat Gran (auto) Absolute Neuts (auto) Absolute Nucleated RBC Nucleated RBC % (auto) ESR Hold Purple Top PT INR Anion Gap Estim Creat Clear Calc Estimated GFR Random Glucose Lactic Acid Calcium Magnesium Total Bilirubin AST ALT Alkaline Phosphatase Total Creatine Kinase Troponin I High Sens 41.5 H* C-Reactive Protein B-Natriuretic Peptide Total Protein Albumin Procalcitonin Urine Color Urine Appearance Urine pH Ur Specific [place] Urine Protein Urine Glucose (UA) Urine Ketones Urine Blood Urine Nitrite Ur Leukocyte Esterase Urine RBC Urine WBC Urine WBC Clumps Ur Squamous Epith Cells Ur Renal Epithelial Cell [place] Biurate Crystals Calcium Carbonate Cryst Calcium Phosphate Cryst Calcium Oxalate Crystal Leucine Crystals Cystine Crystals Uric Acid Crystals Triple Phos Crystals Talc Crystals Tyrosine Crystals Other Crystals Amorphous Sediment Urine Bacteria Epithelial Casts Fatty Casts Hyaline Casts Granular Casts Waxy Casts RBC Casts WBC Casts Other Casts Urine Mucus Urine Trichomonas Urine Yeast Urine Sperm Ur Oval Fat Bodies Chlam trachomat DNA PCR Coronavirus (PCR) Influenza Type A (PCR) Influenza Type B (PCR) N.gonorrhoeae DNA (PCR) RSV RNA Qual (PCR) Imaging Radiologist's Impressions: Impressions Knee X-Ray 01/07/21 12:25 IMPRESSION: Soft tissue swelling in the anterior subcutaneous soft tissues Mild osteoarthritis unchanged. Wrist X-Ray 01/07/21 12:27 IMPRESSION: Normal exam Chest X-Ray 01/07/21 12:28 IMPRESSION: Unremarkable examination. Assessment and Plan (1) UTI (urinary tract infection): Status: Acute (2) Joint pain: Status: Acute 40 year old female with lupus, RA and multiple other medical problems here with diffuse body ache and joint aches, UTI, elevated WBC and meet sepsis criteria. 1/Sepsis 2/UTI -agree with ceftriaxone -Follow cultures 2/ Diffuse body ache, left knee pain doesn't feel like classical ceptic joint -check Uric acid -Arthrocentessis --if concern for septic arthritis then add gram positive coverage 3/Cardiomyoatphy/CHF--elevated BNP. She says she's been taken off Lasix since October, give a dose of Lasix and reassess 4/Accelerated HTN, uncontrolled BP, pain may be playing a role -continue home meds, PRN hydralazine or Labetalol 5/Diabetes--SSI, Xigduo not on formulary, unless able to bring it in 6/Possible RA flare--Steroid if no joint infection identified. 7/Elevated troponin--flat, no chest pain, no ECG changes. DVT prophylaxis, Lovenox Quality Stroke Does the patient have a stroke diagnosis?: No VTE Prior VTE?: No VTE Risk Level:: Medical - moderate - high VTE Device Contraindication: Treatment Not Indicated VTE Drug Contraindication: N/A - Med Ordered
[2021-01-07] MEDS: methylPREDNISolone Sod Succ 125 MG/2 ML VIAL IVPUSH (19:22)
[2021-01-07] MEDS: Ketorolac Tromethamine 15 MG/ML VIAL IVPUSH (19:22)
[2021-01-07 19:58] LABS: Uric Acid 4.1 mg/dL (2.4-5.7)
[2021-01-07] MEDS: Lidocaine HCl 2 % MPF 5 ML VIAL INFILTRATI (20:22)
[2021-01-07] MEDS: Furosemide 40 MG/4 ML VIAL IVPUSH (20:22)
[2021-01-07] MEDS: Acetaminophen 325 MG TABLET 650 MG PO (20:22)
--- NOTE | 2021-01-07 20:30 | PC.NURSE ---
PT medicated per JUN. Placed on Z[employer] monitor in the hallway. Reports decreased pain to an 8. PT has been assigned a bed upstairs. This nurse to complete transfer report.
--- NOTE | 2021-01-07 20:39 | PC.NURSE ---
This RN contacting hospitalist regarding M/S bed due to elevated Troponins and elevated BNP. Plan for telemetry order. This RN calling M/S to give report.
--- NOTE | 2021-01-07 21:15 | PC.NURSE ---
Pt assisted to the bathroom by test engineering technician in wheelchair.
--- NOTE | 2021-01-07 21:17 | PC.NURSE ---
Report given to RN on med surg.
[2021-01-07] MEDS: 0.9 % Sodium Chloride Flush 3 ML SYRINGE IVFLUSH (22:31)
[2021-01-08 04:00] VITALS: BP 169/97; PULSE 95; RESP 17; TEMP 36.9; O2SAT 95
[2021-01-08] MEDS: Morphine Sulfate 4 MG/ML CARTRIDGE IVPUSH (05:58)
[2021-01-08 06:46] LABS: Anion Gap 15 (12-20); Blood Urea Nitrogen 19 mg/dL (9-16); Calcium 8.8 mg/dL (8.4-10.2); Carbon Dioxide 23 mmol/L (22-29); Chloride 99 mmol/L (96-108); Creatinine Clr Calc Pharmacy 59.3; Estimated Glomerular Filt Rate 41; Potassium 3.8 mmol/L (3.3-5.1); Sodium 133 mmol/L (135-145)
[2021-01-08 06:56] LABS: Hematocrit 31.7 % (37-47); Mean Corpuscular HGB Conc 34.7 g/dl (31.0-35.0); Mean Corpuscular Volume 95.2 fL (80-98); Mean Platelet Volume 10.2 fL (9.4-12.3); Platelet Count 349 X10*3/uL (160-400); Red Blood Count 3.33 X10*6/uL (4.20-5.50); Red Cell Distribution Width 13.7 % (11.0-16.0); White Blood Count 18.2 X10*3/uL (4.8-10.8)
[2021-01-08 07:10] LABS: Glucose Random 464 mg/dL (60-115)
[2021-01-08 07:55] VITALS: BP 190/101; PULSE 98; RESP 18; TEMP 36.7; O2SAT 98
[2021-01-08] MEDS: Insulin Lispro 100 UNIT/ML 3 ML VIAL SUBCUT ×2 (08:13→12:12)
[2021-01-08] MEDS: lamoTRIgine 100 MG TABLET 150 MG PO (08:13)
[2021-01-08] MEDS: Enoxaparin Sodium 40 MG/0.4 ML SYRINGE SUBCUT (08:13)
[2021-01-08] MEDS: Aspirin Enteric Coated 81 MG TABLET.DR PO (08:13)
[2021-01-08] MEDS: amLODIPine Besylate 10 MG TABLET PO (08:14)
[2021-01-08] MEDS: hydrALAZINE HCl 50 MG TABLET PO (08:14)
[2021-01-08] MEDS: 0.9 % Sodium Chloride Flush 3 ML SYRINGE IVFLUSH (08:14)
--- NOTE | 2021-01-08 08:41 | MHC.CM.PN ---
CM met with Patient at bedside and addressed IMM with her, providing her with the original and placing a copy on the chart. Patient lives in a house with her 3 children, ages 2, 14,16 years of age and she is functionally independent. Patient's goal for d/c is home/no services and CM has initiated and will follow for dc planning. PCP is Dr. Mauricio Nolasco. Patient's Mother/Gisel is the HCP.
--- NOTE | 2021-01-08 09:05 | P.CDIC_ITS ---
CDI Concurrent Query Documentation Clarification: PHYSICIAN'S DOCUMENTATION REQUEST Date of Query: 01/08/21905 Patient Name: Angela Streeter Admit Date: 01/07/21 Dear Doctor, A review of the medical record indicates additional documentation may be needed. Please review below and update the documentation accordingly. Risk Factors/Clinical Indicators/Treatments Progress note - Congestive heart failure, cardiomyopathy. IV lasix given elevated BNP 1285 H History of echo performed. Accelerated HTN, uncontrolled BP. Please provide further specificity regarding the most likely type and acuity of CHF you are evaluating, treating, or monitoring. Examples include: Type: * Systolic * Diastolic * Combined Systolic/Diastolic * Other ? please specify * Unable to determine Acuity: * Acute * Chronic * Acute on chronic * Unable to determine Use of terms such as suspected, likely, concern for, or probable (associated with a specific diagnosis that is being evaluated, monitored, or treated as if it exists) are acceptable and can be coded in the inpatient setting, when documented at the time of discharge. Thank you, Elsy Rodarte [facility], CDIS Extension: [phone] Please use your independent medical judgment in providing your response. THIS QUERY IS PART OF THE PERMANENT MEDICAL RECORD Provider Response: Other Other Diagnosis: probable ch systolic chf, currently euvolemic
[2021-01-08] MEDS: predniSONE 20 MG TABLET 40 MG PO (10:32)
[2021-01-08] MEDS: Lactated Ringers 1,000 ML 80 ML IVCONT (10:33)
--- NOTE | 2021-01-08 11:02 | MHC.CM.PN ---
Patient has beedn medically cleared for dc to home today, no services. IMM addressed this morning.
[2021-01-08 11:46] LABS: Glucose, Whole Blood 363 mg/dL (60-115)
[2021-01-08 11:53] VITALS: BP 175/88; PULSE 105; RESP 18; TEMP 37.1; O2SAT 97
--- NOTE | 2021-01-08 11:59 | P.DS_ITS ---
DS: Providers Provider Date of Service: 01/08/21 Date of admission: 01/07/21 19:26 Date of discharge: 01/08/21 Primary care physician: TIMMY Benitez- Consults: 01/08/21 07:35 Consult to Infectious Diseases Routine Consulting Provider: Malika Partida Reason for consultation: multiple joint pain ? -infection vs rheumatiod related Has provider been notified: No DS: Diagnosis Discharge Diagnosis (1) Leukocytosis: Status: Acute (2) CRP elevated: Status: Acute (3) Joint pain: Status: Acute (4) UTI (urinary tract infection): Status: Acute (5) CKD (chronic kidney disease): Status: Acute DS: Summary Hospital Course Hospital Course: 40-year-old female with a past medical history of rheumatoid arthritis, lupus not on any steroids, Sjogren's, hypertension, hyperlipidemia, heart failure, cardiomyopathy, heart block AV 2nd degree, DVT, diabetes, migraine headaches, PTSD and bipolar 1 disorder--just to name some. She comes to the ED today with diffuse body ache, more prominent in? the left wrist/hand joint and left knee joint? and is not able care for herself or childre. She doesn't quite feel that this is? like this a flare of rheumatoid compare to previous episodes.? She has so much pain to the point of not able to make to the bathroom and soiled herself. She has no fever,? no viral symptoms such as cough,? no neck pain, no stiffness, no diarrhea.? Even simple rub on the skin elicit the pain.? Her joints are visibly all swollen. Her blood has been very high but she says this is unsual and has been taking her medication. Work up thus far has revealed? WBC of 21K, and UA is positive for UTI, ESR and CRP are high, pro-calcitonin is low. Hospital course: Probable rheumatoid arthritis flare: Patient seems like has multiple joint pain-she said she was off her Plaquenil which she stopped on her own couple months back-did not realize that she will get flare of rheumatoid and subsequently got joint pain from few days now, also elevated esr,crp and came to the hospital-patient was given pain med new medications as well as steroids in the ED. mild jared vs ckd: Patient says that her creatinine fluctuate in 1.3 to 1.4 range she and she follows up with Nephrology out patiently for that, will hold off lisinopril and spironolactone for now, patient needs to check her BMP with PCP and further use of lisinopril and spironolactone afterwards as per PCP. Patient was encouraged for hydration. Hypertension: Slightly suboptimal, continue amlodipine, and hydralazine adjusted to 100 t.i.d. dm : has hyperglycemia-which probably related to IV steroids and Lasix- Will continue xigduo. Also advised to strictly follow diabetic diet. Follow-up hemoglobin A1c with PCP and further management with PCP. Probable question of sepsis UTI, leukocytosis: Leukocytosis improving, patient denies any urinary complaint or joint pains, no fevers, but says says that has history of chronic UTIs also. Will given the benefit of doubt treat 3 days course total Levaquin. blood culture and urine culture pending , but patient is asymptomatic and she is pretty determined to go home today, since she is asymptomatic no fever we will switch the p.o. antibiotic and planned discharge. Follow-up cultures with outpatient with pcp, if culture come positive or in sensitive to Levaquin -will call back patient. Cardiomyopathy: Probable chronic systolic CHF: As per the patient patient was taken off the Lasix in October already. She refused for further Lasix use. Currently euvolemic, on spironolactone. hold for spironolactone two more days and check BMP-start back if renal function at baseline. Above management discussed with the patient in detail length she understand and in agreement with the above plan, time spent 50 minutes and 50% time spent on counseling. She understands above management-she understands she needs to follow-up with rheumatology and nephrology and PCP out patiently and also with Dr. Partida. She does not want to stay- So encouraged for p.o. hydration, complete antibiotics, check fingersticks, BMP with PCP. Significant findings: As above. Procedures performed: None. Treatment and response: As above. Complications: None. Time Spent with Patient Time attestation: Total time spent providing and/or coordinating discharge services: Discharge coordination time: Greater than 30 minutes Quality: Stroke Does the patient have a stroke diagnosis?: No Physical Exam 2 Vital Signs: Vital Signs: Last Vital Signs Temp 98.8 F 01/08/21 11:53 Pulse 105 H 01/08/21 11:53 Resp 18 01/08/21 11:53 BP 175/88 H 01/08/21 11:53 Pulse Ox 97 01/08/21 11:53 Body Mass Index 31.4 Physical exam: Appearance: Alert.? Oriented X3.? not in distress.? Eyes: Pupils equal, round and reactive to light.? Sclera nonicteric.? ENT: Pharynx normal.? Moist mucous membranes. cvs: rrr, [id number] , no murmur res: clear to auscultation ,no rhonchii or wheezing abd: no rebound or guarding ,nt, bs present. ext pulses present , no cyanosis Joint pain seems significantly improved and she is walking and feel happy about it. No swelling on any of the joint or erythema. No fluctuation. neuro: axo3 , nonfocal. DS: Data Data Completed and Pending Labs on day of discharge: Laboratory Results - last 24 hr 01/07/21 01/07/21 01/07/21 12:40 12:40 12:40 WBC 21.6 H RBC 3.52 L Hgb 12.0 Hct 33.5 L MCV 95.2 MCH 34.1 H MCHC 35.8 H RDW 14.2 Plt Count 309 MPV 9.7 Immature Gran % (Auto) 0.6 H Neut % (Auto) 89.2 H Lymph % (Auto) 5.4 L [place] % (Auto) 4.0 Eos % (Auto) 0.6 Baso % (Auto) 0.2 Lymph # (Auto) 1.2 [place] # (Auto) 0.9 Eos # (Auto) 0.1 Baso # (Auto) 0.1 Abs Immat Gran (auto) 0.14 H Absolute Neuts (auto) 19.2 H Absolute Nucleated RBC 0.000 Nucleated RBC % (auto) 0.0 ESR Hold Purple Top PT 12.7 INR 1.1 Sodium 138 Potassium 3.5 Chloride 101 Carbon Dioxide 27 Anion Gap 14 BUN 15 Creatinine 1.09 Estim Creat Clear Calc 76.3 Estimated GFR 56 POC Glucose Random Glucose 261 H Lactic Acid Uric Acid 4.1 Calcium 9.3 Magnesium 2.1 Total Bilirubin 1.4 H AST 15 D ALT 19 Alkaline Phosphatase 127 H D Total Creatine Kinase 37 Troponin I High Sens C-Reactive Protein 22.63 H B-Natriuretic Peptide Total Protein 6.8 D Albumin 4.0 Procalcitonin Urine Color Urine Appearance Urine pH Ur Specific [place] Urine Protein Urine Glucose (UA) Urine Ketones Urine Blood Urine Nitrite Ur Leukocyte Esterase Urine RBC Urine WBC Urine WBC Clumps Ur Squamous Epith Cells Ur Renal Epithelial Cell [place] Biurate Crystals Calcium Carbonate Cryst Calcium Phosphate Cryst Calcium Oxalate Crystal Leucine Crystals Cystine Crystals Uric Acid Crystals Triple Phos Crystals Talc Crystals Tyrosine Crystals Other Crystals Amorphous Sediment Urine Bacteria Epithelial Casts Fatty Casts Hyaline Casts Granular Casts Waxy Casts RBC Casts WBC Casts Other Casts Urine Mucus Urine Trichomonas Urine Yeast Urine Sperm Ur Oval Fat Bodies Chlam trachomat DNA PCR Coronavirus (PCR) Influenza Type A (PCR) Influenza Type B (PCR) N.gonorrhoeae DNA (PCR) RSV RNA Qual (PCR) 01/07/21 01/07/21 01/07/21 12:40 12:40 12:40 WBC RBC Hgb Hct MCV MCH MCHC RDW Plt Count MPV Immature Gran % (Auto) Neut % (Auto) Lymph % (Auto) [place] % (Auto) Eos % (Auto) Baso % (Auto) Lymph # (Auto) [place] # (Auto) Eos # (Auto) Baso # (Auto) Abs Immat Gran (auto) Absolute Neuts (auto) Absolute Nucleated RBC Nucleated RBC % (auto) ESR 59 H Hold Purple Top SEE NOTE PT INR Sodium Potassium Chloride Carbon Dioxide Anion Gap BUN Creatinine Estim Creat Clear Calc Estimated GFR POC Glucose Random Glucose Lactic Acid 1.0 Uric Acid Calcium Magnesium Total Bilirubin AST ALT Alkaline Phosphatase Total Creatine Kinase Troponin I High Sens C-Reactive Protein B-Natriuretic Peptide Total Protein Albumin Procalcitonin Urine Color Urine Appearance Urine pH Ur Specific [place] Urine Protein Urine Glucose (UA) Urine Ketones Urine Blood Urine Nitrite Ur Leukocyte Esterase Urine RBC Urine WBC Urine WBC Clumps Ur Squamous Epith Cells Ur Renal Epithelial Cell [place] Biurate Crystals Calcium Carbonate Cryst Calcium Phosphate Cryst Calcium Oxalate Crystal Leucine Crystals Cystine Crystals Uric Acid Crystals Triple Phos Crystals [place] Crystals Tyrosine Crystals Other Crystals Amorphous Sediment Urine Bacteria Epithelial Casts Fatty Casts Hyaline Casts Granular Casts Waxy Casts RBC Casts WBC Casts Other Casts Urine Mucus Urine Trichomonas Urine Yeast Urine Sperm Ur Oval Fat Bodies Chlam trachomat DNA PCR Coronavirus (PCR) Influenza Type A (PCR) Influenza Type B (PCR) N.gonorrhoeae DNA (PCR) RSV RNA Qual (PCR) 01/07/21 01/07/21 01/07/21 12:40 12:40 13:52 WBC RBC Hgb Hct MCV MCH MCHC RDW Plt Count MPV Immature Gran % (Auto) Neut % (Auto) Lymph % (Auto) [place] % (Auto) Eos % (Auto) Baso % (Auto) Lymph # (Auto) [place] # (Auto) Eos # (Auto) Baso # (Auto) Abs Immat Gran (auto) Absolute Neuts (auto) Absolute Nucleated RBC Nucleated RBC % (auto) ESR Hold Purple Top PT INR Sodium Potassium Chloride Carbon Dioxide Anion Gap BUN Creatinine Estim Creat Clear Calc Estimated GFR POC Glucose Random Glucose Lactic Acid Uric Acid Calcium Magnesium Total Bilirubin AST ALT Alkaline Phosphatase Total Creatine Kinase Troponin I High Sens 43.6 H* C-Reactive Protein B-Natriuretic Peptide 1285 H Total Protein Albumin Procalcitonin 0.23 Urine Color Urine Appearance Urine pH Ur Specific [place] Urine Protein Urine Glucose (UA) Urine Ketones Urine Blood Urine Nitrite Ur Leukocyte Esterase Urine RBC Urine WBC Urine WBC Clumps Ur Squamous Epith Cells Ur Renal Epithelial Cell [place] Biurate Crystals Calcium Carbonate Cryst Calcium Phosphate Cryst Calcium Oxalate Crystal Leucine Crystals Cystine Crystals Uric Acid Crystals Triple Phos Crystals Talc Crystals Tyrosine Crystals Other Crystals Amorphous Sediment Urine Bacteria Epithelial Casts Fatty Casts Hyaline Casts Granular Casts Waxy Casts RBC Casts WBC Casts Other Casts Urine Mucus Urine Trichomonas Urine Yeast Urine Sperm Ur Oval Fat Bodies Chlam trachomat DNA PCR Coronavirus (PCR) NEGATIVE Influenza Type A (PCR) NEGATIVE Influenza Type B (PCR) NEGATIVE N.gonorrhoeae DNA (PCR) RSV RNA Qual (PCR) NEGATIVE 01/07/21 01/07/21 01/07/21 14:28 14:28 14:28 WBC RBC Hgb Hct MCV MCH MCHC RDW Plt Count MPV Immature Gran % (Auto) Neut % (Auto) Lymph % (Auto) [place] % (Auto) Eos % (Auto) Baso % (Auto) Lymph # (Auto) [place] # (Auto) Eos # (Auto) Baso # (Auto) Abs Immat Gran (auto) Absolute Neuts (auto) Absolute Nucleated RBC Nucleated RBC % (auto) ESR Hold Purple Top PT INR Sodium Potassium Chloride Carbon Dioxide Anion Gap BUN Creatinine Estim Creat Clear Calc Estimated GFR POC Glucose Random Glucose Lactic Acid Uric Acid Calcium Magnesium Total Bilirubin AST ALT Alkaline Phosphatase Total Creatine Kinase Troponin I High Sens C-Reactive Protein B-Natriuretic Peptide Total Protein Albumin Procalcitonin Urine Color YELLOW Cancelled Urine Appearance HAZY Cancelled Urine pH 6.0 Cancelled Ur Specific [place] 1.025 Cancelled Urine Protein 2+ H Cancelled Urine Glucose (UA) >=1000 H Cancelled Urine Ketones NEG Cancelled Urine Blood TRACE Cancelled Urine Nitrite POS H Cancelled Ur Leukocyte Esterase NEG Cancelled Urine RBC 1-4 Cancelled Urine WBC 15-29 H Cancelled Urine WBC Clumps Cancelled Ur Squamous Epith Cells 1+ Cancelled Ur Renal Epithelial Cell Cancelled [place] Biurate Crystals Cancelled Calcium Carbonate Cryst Cancelled Calcium Phosphate Cryst Cancelled Calcium Oxalate Crystal Cancelled Leucine Crystals Cancelled Cystine Crystals Cancelled Uric Acid Crystals Cancelled Triple Phos Crystals Cancelled [place] Crystals Cancelled Tyrosine Crystals Cancelled Other Crystals Cancelled Amorphous Sediment Cancelled Urine Bacteria 3+ Cancelled Epithelial Casts Cancelled Fatty Casts Cancelled Hyaline Casts Cancelled Granular Casts Cancelled Waxy Casts Cancelled RBC Casts Cancelled WBC Casts Cancelled Other Casts Cancelled Urine Mucus 1+ Cancelled Urine Trichomonas Cancelled Urine Yeast Cancelled Urine Sperm Cancelled Ur Oval Fat Bodies Cancelled Chlam trachomat DNA PCR NOT DETECTED Coronavirus (PCR) Influenza Type A (PCR) Influenza Type B (PCR) N.gonorrhoeae DNA (PCR) NOT DETECTED RSV RNA Qual (PCR) 01/07/21 01/08/21 01/08/21 15:52 05:53 05:53 WBC 18.2 H RBC 3.33 L Hgb 11.0 L Hct 31.7 L MCV 95.2 MCH 33.0 MCHC 34.7 RDW 13.7 Plt Count 349 MPV 10.2 Immature Gran % (Auto) Neut % (Auto) Lymph % (Auto) [place] % (Auto) Eos % (Auto) Baso % (Auto) Lymph # (Auto) [place] # (Auto) Eos # (Auto) Baso # (Auto) Abs Immat Gran (auto) Absolute Neuts (auto) Absolute Nucleated RBC 0.000 Nucleated RBC % (auto) 0.0 ESR Hold Purple Top PT INR Sodium 133 L Potassium 3.8 Chloride 99 Carbon Dioxide 23 Anion Gap 15 BUN 19 H Creatinine 1.44 H Estim Creat Clear Calc 59.3 Estimated GFR 41 POC Glucose Random Glucose 464 H* Lactic Acid Uric Acid Calcium 8.8 Magnesium Total Bilirubin AST ALT Alkaline Phosphatase Total Creatine Kinase Troponin I High Sens 41.5 H* C-Reactive Protein B-Natriuretic Peptide Total Protein Albumin Procalcitonin Urine Color Urine Appearance Urine pH Ur Specific [place] Urine Protein Urine Glucose (UA) Urine Ketones Urine Blood Urine Nitrite Ur Leukocyte Esterase Urine RBC Urine WBC Urine WBC Clumps Ur Squamous Epith Cells Ur Renal Epithelial Cell [place] Biurate Crystals Calcium Carbonate Cryst Calcium Phosphate Cryst Calcium Oxalate Crystal Leucine Crystals Cystine Crystals Uric Acid Crystals Triple Phos Crystals Talc Crystals Tyrosine Crystals Other Crystals Amorphous Sediment Urine Bacteria Epithelial Casts Fatty Casts Hyaline Casts Granular Casts Waxy Casts RBC Casts WBC Casts Other Casts Urine Mucus Urine Trichomonas Urine Yeast Urine Sperm Ur Oval Fat Bodies Chlam trachomat DNA PCR Coronavirus (PCR) Influenza Type A (PCR) Influenza Type B (PCR) N.gonorrhoeae DNA (PCR) RSV RNA Qual (PCR) 01/08/21 11:26 WBC RBC Hgb Hct MCV MCH MCHC RDW Plt Count MPV Immature Gran % (Auto) Neut % (Auto) Lymph % (Auto) [place] % (Auto) Eos % (Auto) Baso % (Auto) Lymph # (Auto) [place] # (Auto) Eos # (Auto) Baso # (Auto) Abs Immat Gran (auto) Absolute Neuts (auto) Absolute Nucleated RBC Nucleated RBC % (auto) ESR Hold Purple Top PT INR Sodium Potassium Chloride Carbon Dioxide Anion Gap BUN Creatinine Estim Creat Clear Calc Estimated GFR POC Glucose 363 H* Random Glucose Lactic Acid Uric Acid Calcium Magnesium Total Bilirubin AST ALT Alkaline Phosphatase Total Creatine Kinase Troponin I High Sens C-Reactive Protein B-Natriuretic Peptide Total Protein Albumin Procalcitonin Urine Color Urine Appearance Urine pH Ur Specific [place] Urine Protein Urine Glucose (UA) Urine Ketones Urine Blood Urine Nitrite Ur Leukocyte Esterase Urine RBC Urine WBC Urine WBC Clumps Ur Squamous Epith Cells Ur Renal Epithelial Cell [place] Biurate Crystals Calcium Carbonate Cryst Calcium Phosphate Cryst Calcium Oxalate Crystal Leucine Crystals Cystine Crystals Uric Acid Crystals Triple Phos Crystals Talc Crystals Tyrosine Crystals Other Crystals Amorphous Sediment Urine Bacteria Epithelial Casts Fatty Casts Hyaline Casts Granular Casts Waxy Casts RBC Casts WBC Casts Other Casts Urine Mucus Urine Trichomonas Urine Yeast Urine Sperm Ur Oval Fat Bodies Chlam trachomat DNA PCR Coronavirus (PCR) Influenza Type A (PCR) Influenza Type B (PCR) N.gonorrhoeae DNA (PCR) RSV RNA Qual (PCR) Preliminary micro results at discharge 01/07/21 Unknown Urine Culture - Preliminary Urine clean catch - Urine skel[place] top Gram negative aamir Discharge Plan Discharge Patient Disposition: Home, Self-Care Discharge Diagnosis: uti, rheumatoid arthritis flare. Referrals: Mauricio Nolasco FNP- [Primary Care Provider] - 1 Week (Your doctor's office should call you to schedule a follow up appointment. ) Discharge Medications: New prednisone 10 mg tablet See Taper mg PO DAILY Qty: 16 RF: 0 omeprazole 20 mg capsule,delayed release(DR/EC) 20 mg PO DAILY Qty: 10 RF: 0 levofloxacin 250 mg tablet 250 mg PO DAILY Qty: 1 RF: 0 Continued Xigduo XR 10-1,000 mg tablet, IR - ER, biphasic 24hr 1 tab PO DAILY RF: 0 amlodipine 10 mg tablet 10 mg PO DAILY RF: 0 aspirin 81 mg Tablet,Delayed Release (Dr/Ec) 81 mg PO DAILY RF: 0 lamotrigine 100 mg tablet 150 mg PO DAILY RF: 0 hydroxychloroquine 200 mg Tablet 200 mg PO DAILY RF: 0 hydroxychloroquine 200 mg Tablet 200 mg PO DAILY Qty: 0 RF: 0 clonazepam 1 mg tablet 1 mg PO DAILY PRN (Reason: anxiety) RF: 0 hydralazine 50 mg tablet 50 mg PO TID Qty: 90 RF: 5 Changed hydralazine 50 mg tablet 100 mg PO TID Qty: 90 RF: 5 Held lisinopril 10 mg tablet 20 mg PO BID Qty: 360 RF: 0 Hold Instructions: Resume on 01/21/21. Hold lisinopril until repeat BMP out patiently with PCP and follow-up with Nephrology. spironolactone 25 mg tablet 100 mg PO DAILY RF: 0 Hold Instructions: Resume on 01/11/21. hold until repeat bmp with pcp out patiently. Discharge Orders: Discharge Order (Routine); Ordered 01/08/21 Ordered By: Kenn Travis Diet: advance to usual diet, diabetic diet, low fat, low cholesterol and low salt diet Activity on Discharge: As tolerated Stand Alone Forms: Patient Portal Discharge page Other Ambulatory Orders: Basic Metabolic Panel Fasting (Routine) Timeframe: 1 Week Facility: [facility] - Location: Laboratory Ordered By: Kenn Travis Care Plan Goals: Patient seems like has multiple joint pain-she said she was off her Plaquenil which she stopped on her own couple months back-did not realize that she will get flare of rheumatoid and subsequently got joint pain from few days now, also elevated esr,crp and came to the hospital-patient was given pain med new medications as well as steroids in the ED. mild jared vs ckd: Patient says that her creatinine fluctuate in 1.3 to 1.4 range she and she follows up with Nephrology out patiently for that, will hold off lisinopril and spironolactone for now, patient needs to check her BMP with PCP a nd further use of lisinopril and spironolactone afterwards as per PCP. Patient was encouraged for hydration. Hypertension: Slightly suboptimal, continue amlodipine, and hydralazine adjusted to 100 t.i.d. Probable question of UTI, leukocytosis: Patient says that has history of chronic UTIs also. Will given the benefit of doubt treat 3 days course total Levaquin. Health Concerns: As above. Plan of Treatment: As above. Assessment: As above.
[2021-01-08] MEDS: Acetaminophen 325 MG TABLET 650 MG PO (12:16)
[2021-01-08 13:06] LABS: Lyme Abs Screen <0.90 index
[2021-01-08] MEDS: hydrALAZINE HCl 50 MG TABLET 100 MG PO (14:06)
[2021-01-16 12:25] LABS: Troponin-I High Sensitivity 41.5 ng/L (<3.5-17.0)
== END 2021-01-08 16:18 | disposition home or self-care (01) | DRG 872 ==
LOC: HO.ED 17:16 → HO.EDOVER 19:58 → HO.S3 20:20
PROVIDERS: Nurse Practitioner Family; Physician Assistant Medical; Admitting Provider Internal Medicine; Emergency Provider Emergency Medicine; PCP Nurse Practitioner Family; Visit Provider Internal Medicine
DX: A41.9 Sepsis, unspecified organism (principal); N39.0 Urinary tract infection, site not specified; I42.9 Cardiomyopathy, unspecified; I50.22 Chronic systolic (congestive) heart failure; I13.0 Hypertensive heart and chronic kidney disease with heart failure and stage 1 through stage 4 chronic kidney disease, or unspecified chronic kidney disease; N17.9 Acute kidney failure, unspecified; M06.9 Rheumatoid arthritis, unspecified; M32.9 Systemic lupus erythematosus, unspecified; F31.9 Bipolar disorder, unspecified; E78.5 Hyperlipidemia, unspecified; M35.00 Sjogren syndrome, unspecified; Z23 Encounter for immunization; Z20.822 Contact with and (suspected) exposure to COVID-19; E11.65 Type 2 diabetes mellitus with hyperglycemia; E11.22 Type 2 diabetes mellitus with diabetic chronic kidney disease; N18.2 Chronic kidney disease, stage 2 (mild); Z88.0 Allergy status to penicillin; Z79.82 Long term (current) use of aspirin; Z79.899 Other long term (current) drug therapy
CPT/HCPCS: 0241U; 36415; 71046; 73110; 73564; 80048; 80053; 81001; 82550; 82947; 83605; 83735; 83880; 84145; 84484; 84550; 85025; 85027; 85610; 85652; 86140; 86617; 86618; 87040; 87086; 87088; 87186; 87491; 87591; 90686; 93005; 99285; J1650; J1885; J1940; J1956; J2270; J2930

== ENCOUNTER 2021-04-18 13:26 | Outpatient (REF) | payer MEDICARE, MEDICAID, SELFPAY ==
--- NOTE | ~2021-04-18 | XR_ITS ---
EXAMINATION: XR CHEST CLINICAL INFORMATION: Chest pain. COMPARISON: Chest 01/07/2021 TECHNIQUE: 2 views of the chest were obtained. FINDINGS: The lungs are well-expanded and clear of acute process. The heart size is mildly enlarged. The pulmonary vascularity is normal. There is mild spondylosis dorsal spine. There are old healed left sided rib fractures. XR/XR chest 2V IMPRESSION: Mild cardiomegaly, stable. No acute pulmonary process seen.
[2021-04-18 16:22] LABS: MANUAL DIFF FLAG NO
[2021-04-18 16:26] LABS: Basophils Percent Auto 0.1 % (0-2); Hematocrit 41.8 % (37.0-47.0); Hemoglobin 14.7 g/dl (12.0-16.0); Imm Gran Abs Auto 0.03 X10*3/uL (0.00-0.03); Imm Gran Pct Auto 0.4 % (0.0-0.4); Lymphocytes Absolute Auto 0.9 X10*3/uL (1.2-4.9); Lymphocytes Percent Auto 12.8 % (20-40); Mean Corpuscular HGB Conc 35.2 g/dl (31.0-35.0); Mean Corpuscular Hemoglobin 31.4 pg (27.0-33.0); Mean Corpuscular Volume 89.3 fL (80.0-98.0); Mean Platelet Volume 9.6 fL (9.4-12.3); Monocytes Absolute Auto 0.8 X10*3/uL (0.1-1.2); Monocytes Percent Auto 10.6 % (2-11); Neutrophils Absolute Auto 5.4 x10*3/uL (2.0-8.3); Neutrophils Percent Auto 76.1 % (45-73); Platelet Count 350 X10*3/uL (160-400); Red Blood Count 4.68 X10*6/uL (4.20-5.50); Red Cell Distribution Width 15.1 % (11.0-16.0); White Blood Count 7.2 X10*3/uL (4.8-10.8)
[2021-04-18 16:51] LABS: B Type Natriuretic Peptide 311 pg/mL (<100)
[2021-04-18 19:02] LABS: Appearance Urine CLOUDY; Color Urine YELLOW; Glucose Urine UA 250 MG/DL (NEG); Leukocyte Esterase Urine NEG (NEG); Nitrite Urine NEG (NEG); PH 5.5 (5.0-8.0); Specific Gravity - Urine >= 1.030 (1.005-1.025); UACC Culture Trigger NO; Urine Blood TRACE (NEG); Urine Ketones NEG (NEG); Urine Protein 3+ MG/DL (NEG-TRACE)
[2021-04-18 20:01] LABS: Squamous Epithelial Cell Urine TRACE /LPF; UACC CULT YES
[2021-04-18 20:02] LABS: Bacteria Urine 4+ /LPF
== END 2021-04-18 13:27 | disposition home or self-care (01) ==
LOC: HO.HMGCLDS 13:26
PROVIDERS: PCP Nurse Practitioner Family; Visit Provider Physician Assistant Medical
DX: R07.9 Chest pain, unspecified (principal); M54.50 Low back pain, unspecified; R35.89 Other polyuria
CPT/HCPCS: 36415; 71046; 81001; 81003; 83880; 85025; 87086; 87088; 87186

== ENCOUNTER 2021-04-19 18:45 | Emergency (ER) | payer MEDICARE, MEDICAID, SELFPAY ==
--- NOTE | ~2021-04-19 | XR_ITS ---
EXAMINATION: XR CHEST CLINICAL INFORMATION: Chest pain. COMPARISON: Chest radiograph dated from 04/18/2021. TECHNIQUE: PA view of the chest was obtained. FINDINGS: Stable cardiomegaly. No focal airspace opacities, pleural effusions or pneumothorax. Old healed left-sided rib fractures. No acute osseous abnormalities. XR/XR chest 1V IMPRESSION: No acute cardiopulmonary findings.
--- NOTE | ~2021-04-19 | CT_ITS ---
EXAMINATION: CT ANGIOGRAM OF THE CHEST WITH AND WITHOUT CONTRAST (CT PULMONARY ANGIOGRAM FOR PE) CLINICAL INFORMATION: Reason for Exam COVID 04/08/21, elevated D-dimer, pleuritic chest pain, r/o PE . COMPARISON: 09/14/2020 TECHNIQUE: Prior to contrast administration, noncontrast localization images were obtained. Subsequently, multidetector volumetric imaging was performed from the thoracic inlet to below the diaphragms following the administration of 65 mL Omnipaque 350 intravenous contrast. No contrast reaction reported Sagittal, coronal, and MIP oblique sagittal reformatted images were obtained on the CT workstation, uploaded to PACS, and reviewed. This CT examination was performed using dose optimization techniques as appropriate, variously including the following: *Automated exposure control *Adjustment of mA and/or kV according to patient size (this includes techniques or standardized protocols for targeted exams where dose is matched to indication/reason for exam; i.e. extremities or head) *Use of iterative reconstruction technique Total exam dose-length product 331 mGy-cm FINDINGS: QUALITY OF STUDY/CONTRAST BOLUS: Satisfactory. PULMONARY ARTERIES: No central or segmental pulmonary emboli. THORACIC AORTA: No aneurysm or dissection. LUNG: There are scattered bilateral patchy groundglass opacities showing peripheral predominance compatible with mild COVID pneumonitis. PLEURA: No pleural effusion or pneumothorax. MEDIASTINUM: Mild cardiomegaly/left ventricular hypertrophy. No pericardial effusion. No evidence of septal bowing or right heart strain. No mediastinal or hilar adenopathy. CHEST WALL/AXILLA: No axillary or internal mammary lymphadenopathy. OSSEOUS STRUCTURES: No acute or suspicious osseous abnormality. UPPER ABDOMEN: Mild splenomegaly. There is a 1.3 cm simple cyst in the upper pole of left kidney, benign requiring no further follow-up. CT/CT angio chest PE protocol IMPRESSION: * No pulmonary embolism. * Mild cardiomegaly and left ventricular hypertrophy. * Mild bilateral peripherally predominant patchy groundglass opacities compatible with COVID pneumonitis, mild. VTE: negative
[2021-04-19 19:08] VITALS: BP 188/98; PULSE 110; RESP 20; TEMP 36.1; O2SAT 96; BMI 30.7
--- NOTE | 2021-04-19 19:11 | ECG_ITS ---
Test Reason : CHEST PAIN Blood Pressure : / mmHG Vent. Rate : 105 BPM Atrial Rate : 105 BPM P-R Int : 144 ms QRS Dur : 086 ms QT Int : 368 ms P-R-T Axes : 056 000 143 degrees QTc Int : 486 ms Artifact in tracing Sinus tachycardia Left atrial enlargement Left ventricular hypertrophy with repolarization abnormality ( R in aVL , Sokolow-Abarca , Wheeler product , Romhilt-Peres ) Abnormal ECG When compared with ECG of 07-JAN-2021 14:45, No significant change was found Referred By: Generic ED Physician Electronically Signed By:MANJEET DUVALL
[2021-04-19 20:22] LABS: MANUAL DIFF FLAG NO
[2021-04-19 20:23] LABS: Basophils Percent Auto 0.1 % (0-2); Hematocrit 41.2 % (37.0-47.0); Hemoglobin 14.8 g/dl (12.0-16.0); Imm Gran Abs Auto 0.02 X10*3/uL (0.00-0.03); Imm Gran Pct Auto 0.3 % (0.0-0.4); Lymphocytes Absolute Auto 1.5 X10*3/uL (1.2-4.9); Lymphocytes Percent Auto 19.6 % (20-40); Mean Corpuscular HGB Conc 35.9 g/dl (31.0-35.0); Mean Corpuscular Hemoglobin 31.8 pg (27.0-33.0); Mean Corpuscular Volume 88.6 fL (80.0-98.0); Mean Platelet Volume 8.8 fL (9.4-12.3); Monocytes Absolute Auto 0.7 X10*3/uL (0.1-1.2); Neutrophils Absolute Auto 5.4 x10*3/uL (2.0-8.3); Platelet Count 274 X10*3/uL (160-400); Red Blood Count 4.65 X10*6/uL (4.20-5.50); White Blood Count 7.6 X10*3/uL (4.8-10.8)
[2021-04-19 20:30] LABS: D Dimer High Sensitivity 276 NG/ML
[2021-04-19 20:38] LABS: Anion Gap 14 (12-20); Blood Urea Nitrogen 15 mg/dL (9-16); Carbon Dioxide 23 mmol/L (22-29); Chloride 96 mmol/L (96-108); Creatinine Clr Calc Pharmacy 56.4; Estimated Glomerular Filt Rate 39; Glucose Random 172 mg/dL (60-115); Potassium 3.4 mmol/L (3.3-5.1); Sodium 130 mmol/L (135-145)
[2021-04-19 21:04] LABS: Troponin-I High Sensitivity 77.3 ng/L (<3.5-17.0)
[2021-04-20 00:21] VITALS: BP 169/115; PULSE 94; RESP 20; TEMP 37.1; O2SAT 94
[2021-04-20 01:05] VITALS: RESP 26
[2021-04-20] MEDS: ondansetron HCL 4 MG/2 ML VIAL IVPUSH ×2 (01:05→03:35)
[2021-04-20] MEDS: 0.9 % Sodium Chloride 1,000 ML 999 ML IV (01:05)
[2021-04-20] MEDS: Morphine Sulfate 4 MG/ML CARTRIDGE IVPUSH ×2 (01:05→03:35)
[2021-04-20 01:51] LABS: Troponin-I High Sensitivity 61.5 ng/L (<3.5-17.0)
[2021-04-20] MEDS: iohexoL 350 MG/ML 100 ML INFUS..BTL 65 ML IV (01:52)
[2021-04-20 02:00] VITALS: BP 181/122; PULSE 86; RESP 20; TEMP 36.6; O2SAT 97
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
[2021-04-20 03:35] VITALS: BP 186/121; PULSE 84; RESP 17; O2SAT 96
--- NOTE | 2021-04-20 03:40 | PC.NURSE ---
Dr Keene aware of pt's BP, states she has chronic HTN. Pt asx. No additional orders.
== END 2021-04-20 04:09 | disposition home or self-care (01) ==
PROVIDERS: Emergency Provider Emergency Medicine Emergency Medical Services; PCP Nurse Practitioner Family
DX: U07.1 COVID-19 (principal); J12.82 Pneumonia due to coronavirus disease 2019; R07.89 Other chest pain; R06.02 Shortness of breath; R60.0 Localized edema; F17.210 Nicotine dependence, cigarettes, uncomplicated; Z71.6 Tobacco abuse counseling; Z86.718 Personal history of other venous thrombosis and embolism; Z79.899 Other long term (current) drug therapy
CPT/HCPCS: 36415; 71045; 71275; 80048; 84484; 85025; 85379; 93005; 96361; 96374; 96375; 96376; 99284; J2270; J2405; Q9967

== ENCOUNTER 2021-05-31 00:44 | Inpatient (IN) | payer MEDICARE, MEDICAID, SELFPAY ==
[2021-05-31] VITALS (12 sets, daily range): BP systolic 162–230; BP diastolic 50–160; PULSE 80–107; RESP 16–20; TEMP 36.6; O2SAT 95–100; BMI 29.0
--- NOTE | ~2021-05-31 | XR_ITS ---
EXAMINATION: XR CHEST CLINICAL INFORMATION: Shortness of breath COMPARISON: 04/19/2021 TECHNIQUE: Frontal view of the chest was obtained. FINDINGS: Cardiac leads overlie the chest. The lungs are well expanded. There is no focal consolidation, edema, or effusion. No pneumothorax. The cardiomediastinal silhouette is within normal limits. No acute osseous abnormality. XR/XR chest 1V IMPRESSION: No acute pulmonary finding.
--- NOTE | ~2021-05-31 | NM_ITS ---
EXAMINATION: NM LUNG IMAGE PERFUSION CLINICAL INFORMATION: SOB. COMPARISON: None TECHNIQUE: Following intravenous administration of 4 mCi of 99m Tc MAA, imaging of both lungs were obtained multiple projections. Ventilation study was not performed. FINDINGS: There is normal perfusion seen in both lungs without any segmental or subsegmental defects. Ventilation study was not performed. NM/NM pul perfusion IMPRESSION: Normal perfusion scan.
--- NOTE | 2021-05-31 01:06 | ECG_ITS ---
Test Reason : CHEST PAIN Blood Pressure : / mmHG Vent. Rate : 090 BPM Atrial Rate : 090 BPM P-R Int : 146 ms QRS Dur : 090 ms QT Int : 386 ms P-R-T Axes : 055 -09 136 degrees QTc Int : 472 ms Normal sinus rhythm Left atrial enlargement Left ventricular hypertrophy with repolarization abnormality ( R in aVL , Sokolow-Abarca , [place] product , Romhilt-Peres ) Abnormal ECG When compared with ECG of 19-APR-2021 20:07, No significant change was found Referred By: Melissa Serna Electronically Signed By:MANJEET DUVALL
--- NOTE | 2021-05-31 01:10 | ED.URI ---
HPI - URI/Sore Throat General Chief Complaint: Upper Respiratory Symptoms Stated Complaint: DYSPNEA Time Seen by Provider: 05/31/21 01:06 History of Present Illness HPI Narrative: Patient is 41-year-old female presents today with having shortness of breath. Patient has a history of cardiomyopathy history of hypertension on amlodipine, lisinopril, hydralazine, Aldactone. Patient claims compliance with her medication. Denies any history of VT. . Positive history of hypertension out of control. Positive history of diabetes. Patient from home. No fever no chills no cough no congestion upper respiratory symptoms. Patient not immunized for COVID. Related Data Home Medications Medication Instructions Recorded Confirmed aspirin 81 mg tablet,delayed 81 mg PO DAILY 09/14/20 04/25/21 release dapagliflozin 10 mg-metformin ER 1 tab PO DAILY 10/25/20 04/25/21 1,000 mg tablet,extended release 24hr (Xigduo XR) clonazepam 1 mg tablet 1 mg PO DAILY PRN 11/05/20 04/25/21 amlodipine 10 mg tablet 10 mg PO DAILY 11/08/20 04/25/21 lamotrigine 100 mg tablet 150 mg PO DAILY tab 11/08/20 04/25/21 spironolactone 25 mg tablet 100 mg PO DAILY tab 11/08/20 04/25/21 Previous Rx's Medication Instructions Recorded lisinopril 10 mg tablet 20 mg PO BID #360 tab 10/25/20 hydralazine 50 mg tablet 100 mg PO TID #90 tab 01/08/21 hydroxychloroquine 200 mg tablet 200 mg PO DAILY #0 tab 01/08/21 omeprazole 20 mg capsule,delayed 20 mg PO DAILY #90 cap 02/06/21 release cyclobenzaprine 10 mg tablet 10 mg PO TID #14 tab 04/18/21 morphine 15 mg immediate release 15 mg PO Q4-6H PRN #14 tab 04/20/21 tablet sulfamethoxazole 800 1 tab PO BID 3 Days #6 tab 04/22/21 mg-trimethoprim 160 mg tablet (Bactrim DS) albuterol sulfate 90 mcg/actuation 1 inh INHALATION QID PRN 30 Days 04/23/21 aerosol inhaler #8.5 g fluconazole 150 mg tablet 150 mg PO Q3D #2 tab 04/27/21 Allergies Allergy/AdvReac Type Severity Reaction Status Date / Time Cephalosporins Allergy Intermediate RASH ALL Verified 04/25/21 11:21 [CEPHALOSPORINS] OVER amoxicillin Allergy Unknown rash Verified 04/25/21 11:21 cefaclor [From Ceclor] Allergy Unknown RASH Verified 04/25/21 11:21 cephalexin Allergy Unknown rash Verified 04/25/21 11:21 cephradine [From VELOSEF] Allergy Unknown RASH Verified 04/25/21 11:21 Penicillins [PENICILLINS] Allergy Unknown RASH Verified 04/25/21 11:21 gabapentin [GABAPENTIN] AdvReac Unknown RESTLESS Verified 04/25/21 11:21 LEGS, Body becomes very uncomfortable Review of Systems Review of Systems: Positive shortness of breath Yes all other systems are reviewed and are negative [facility] Past Medical History Medical History Anxiety Bipolar 1 disorder Cardiomyopathy CKD (chronic kidney disease) stage 2, GFR 60-89 ml/min Diabetes mellitus Eclampsia Fatty liver H/O mixed connective tissue disease Heart block AV second degree High cholesterol History of DVT (deep vein thrombosis) HTN (hypertension) Hypersomnia Lupus Migraines Nicotine dependence, cigarettes, uncomplicated (~1999) PTSD (post-traumatic stress disorder) Rheumatoid arthritis Sjogren's disease Surgical History History of bronchoscopy (~11/2020) History of cholecystectomy (~05/2014) History of hysterectomy Family History Family History Other Diabetes HTN (hypertension) Social History Social History Household Members: Children Household Members Other:: children Housing: House Are you a primary rn long term care to a significant other at home: No Do you presently have visiting nurse or other home services: No Alcohol intake: current Alcohol intake frequency: does not drink Alcohol type: hard liquor Patient Tobacco Use Status: Current everyday Tobacco user Tobacco use type: Cigarette Cigarette Packs Per Day: 0.5 Cigarettes Per Day: 10 Years Smoked: 20 e-Cigarette/Vaping Use: Never Used Second Hand Smoke Exposure: Yes Substance Use Type: Marijuana Advance Directives: No Patient : No service: No Current occupational status: disabled Physical Exam Vital Signs: Vital Signs: Last Vital Signs Pulse 91 02/25/22 02:30 Resp 20 05/31/21 01:43 BP 191/145 H 05/31/21 02:30 Pulse Ox 99 05/31/21 02:30 BMI result Body Mass Index 29.0 Appearance: Alert. Oriented X3. No acute distress. Eyes: Pupils equal, round and reactive to light. ENT: Pharynx normal. Neck: Normal inspection. Neck supple. No lymph nodes noted. No crepitus CVS: Normal heart rate and rhythm. Pulses normal. Normal S1 and S2 Respiratory: No respiratory distress. Breath sounds normal. No Wheezing. No rales Abdomen: Soft and nontender. No rigidity. No distention. good BS x4 Skin: Skin warm and dry. Normal skin color. Normal skin turgor. Extremities: No lower extremity edema. Neurovascular intact to all extremities. No Lacerations. No Rash Neuro: Oriented X 3. No motor deficit. No sensory deficit. Moving all extermities. No slurred speech MDM - URI/Sore Throat MDM Narrative Medical decision making narrative: Long history of hypertension still not controlled despite being compliant with her medication. Patient's creatinine today is baseline. Chest x-ray did not show any focal infiltrate no evidence of congestive heart failure patient is lying flat. Patient's troponin is proximally baseline. Patient's EKG showed a sinus pattern heart rate was 90 significant LVH T-wave inversions over the lateral leads which are all unchanged. MT QRS QT within normal limits. Patient given multiple doses of labetalol. Blood pressure is down to 190/140. Discussed with patient the need to stay and get blood pressure controlled. Patient states understanding. Will admit patient. Case discussed with hospitalist team agree with plan of admission. Currently in stable condition. Medical Records Attestation: I reviewed the patient's medical records. Lab Data Attestation: I reviewed the patient's lab results. Result diagrams: 05/31/21 03:10 05/31/21 03:10 Labs: Lab Results 05/31/21 05/31/21 05/31/21 Range/Units 03:10 03:10 03:10 WBC 12.7 H (4.8-10.8) X10*3/uL RBC 3.58 L D (4.20-5.50) X10*6/uL Hgb 11.6 L D (12.0-16.0) g/dl Hct 32.7 L D (37.0-47.0) % MCV 91.3 (80.0-98.0) fL MCH 32.4 (27.0-33.0) pg MCHC 35.5 H (31.0-35.0) g/dl RDW 17.3 H (11.0-16.0) % Plt Count 322 (160-400) X10*3/uL MPV 9.8 (9.4-12.3) fL Immature Gran % (Auto) 0.3 (0.0-0.4) % Neut % (Auto) 80.1 H (45-73) % Lymph % (Auto) 13.6 L (20-40) % [place] % (Auto) 5.1 (2-11) % Eos % (Auto) 0.6 (0-4) % Baso % (Auto) 0.3 (0-2) % Lymph # (Auto) 1.7 (1.2-4.9) X10*3/uL [place] # (Auto) 0.7 (0.1-1.2) X10*3/uL Eos # (Auto) 0.1 (0.0-0.4) X10*3/uL Baso # (Auto) 0.0 (0.0-0.2) X10*3/uL Abs Immat Gran (auto) 0.04 H (0.00-0.03) X10*3/uL Absolute Neuts (auto) 10.2 H (2.0-8.3) x10*3/uL Absolute Nucleated RBC 0.000 (0.0-0.012) X10*3/uL Nucleated RBC % (auto) 0.0 (0.0-0.2) /100WBC Sodium 135 (135-145) mmol/L Potassium 3.4 (3.3-5.1) mmol/L Chloride 100 (96-108) mmol/L Carbon Dioxide 26 (22-29) mmol/L Anion Gap 12 (12-20) BUN 27 H D (9-16) mg/dL Creatinine 1.60 H (0.5-1.4) mg/dL Estim Creat Clear Calc 52.5 Estimated GFR 36 Random Glucose 349 H (60-115) mg/dL Calcium 8.6 (8.4-10.2) mg/dL Total Bilirubin 1.2 H (0.0-1.0) mg/dL Direct Bilirubin 0.5 (0.0-0.5) mg/dL AST 35 H D (5-31) U/L ALT 31 (0-31) U/L Alkaline Phosphatase 133 H (39-117) U/L Troponin I High Sens 56.1 H* (<3.5-17.0) ng/L B-Natriuretic Peptide 4346 H (<100) pg/mL Total Protein 5.2 L D (6.5-8.0) g/dL Albumin 3.1 L D (3.5-5.0) g/dL Beta HCG, Quant < 2 mIU/mL COVID-19 (TOM) (Negative) COVID-19 Clin Com 05/31/21 Range/Units 03:10 WBC (4.8-10.8) X10*3/uL RBC (4.20-5.50) X10*6/uL Hgb (12.0-16.0) g/dl Hct (37.0-47.0) % MCV (80.0-98.0) fL MCH (27.0-33.0) pg MCHC (31.0-35.0) g/dl RDW (11.0-16.0) % Plt Count (160-400) X10*3/uL MPV (9.4-12.3) fL Immature Gran % (Auto) (0.0-0.4) % Neut % (Auto) (45-73) % Lymph % (Auto) (20-40) % [place] % (Auto) (2-11) % Eos % (Auto) (0-4) % Baso % (Auto) (0-2) % Lymph # (Auto) (1.2-4.9) X10*3/uL [place] # (Auto) (0.1-1.2) X10*3/uL Eos # (Auto) (0.0-0.4) X10*3/uL Baso # (Auto) (0.0-0.2) X10*3/uL Abs Immat Gran (auto) (0.00-0.03) X10*3/uL Absolute Neuts (auto) (2.0-8.3) x10*3/uL Absolute Nucleated RBC (0.0-0.012) X10*3/uL Nucleated RBC % (auto) (0.0-0.2) /100WBC Sodium (135-145) mmol/L Potassium (3.3-5.1) mmol/L Chloride (96-108) mmol/L Carbon Dioxide (22-29) mmol/L Anion Gap (12-20) BUN (9-16) mg/dL Creatinine (0.5-1.4) mg/dL Estim Creat Clear Calc Estimated GFR Random Glucose (60-115) mg/dL Calcium (8.4-10.2) mg/dL Total Bilirubin (0.0-1.0) mg/dL Direct Bilirubin (0.0-0.5) mg/dL AST (5-31) U/L ALT (0-31) U/L Alkaline Phosphatase (39-117) U/L Troponin I High Sens (<3.5-17.0) ng/L B-Natriuretic Peptide (<100) pg/mL Total Protein (6.5-8.0) g/dL Albumin (3.5-5.0) g/dL Beta HCG, Quant mIU/mL COVID-19 (TOM) Negative (Negative) COVID-19 Clin Com See Note Critical Care Time Critical Care Time Critical Care Time: Yes Total Critical Care Time: 35 Attestation: I have personally provided 35 minutes of critical care time exclusive of time spent on separately billable procedures. Time includes review of lab data, radiology results, discussion with consultants, and monitoring for potential decompensation. Interventions were performed as documented above Discharge Plan Discharge Clinical Impression: Hypertensive emergency Prescriptions: No Action lisinopril 10 mg tablet 20 mg PO BID Qty: 360 0RF Hold Instructions: Resume on 01/21/21. Hold lisinopril until repeat BMP out patiently with PCP and follow-up with Nephrology. sulfamethoxazole-trimethoprim [Bactrim DS] 800-160 mg tablet 1 tab PO BID 3 Days Qty: 6 0RF albuterol sulfate 90 mcg/actuation HFA aerosol inhaler 1 inh inhalation QID PRN (Reason: shortness of breath or wheezing) 30 Days Qty: 8.5 0RF fluconazole 150 mg tablet 150 mg PO Q3D Qty: 2 1RF Xigduo XR 10-1,000 mg tablet, IR - ER, biphasic 24hr 1 tab PO DAILY 0RF amlodipine 10 mg tablet 10 mg PO DAILY 0RF aspirin 81 mg Tablet,Delayed Release (Dr/Ec) 81 mg PO DAILY 0RF lamotrigine 100 mg tablet 150 mg PO DAILY 0RF Rx Instructions: take 1.5 tablets daily hydralazine 50 mg tablet 100 mg PO TID Qty: 90 5RF hydroxychloroquine 200 mg Tablet 200 mg PO DAILY Qty: 0 0RF Rx Instructions: As per the patient she is not taking currently Plaquenil, 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 morphine 15 mg tablet 15 mg PO Q4-6H PRN (Reason: pain) Qty: 14 0RF Rx Instructions: Patient may request partial fill clonazepam 1 mg tablet 1 mg PO DAILY PRN (Reason: anxiety) 0RF omeprazole 20 mg capsule,delayed release(DR/EC) 20 mg PO DAILY Qty: 90 1RF cyclobenzaprine 10 mg tablet 10 mg PO TID Qty: 14 0RF spironolactone 25 mg tablet 100 mg PO DAILY 0RF Hold Instructions: Resume on 01/11/21. hold until repeat bmp with pcp out patiently. Protocol: Hold for SBP< HOLD for SBP < : 90
[2021-05-31] MEDS: LORazepam 2 MG/ML VIAL 1 MG IVPUSH (01:38)
[2021-05-31] MEDS: Labetalol HCL 100 MG/20 ML VIAL 10 MG IVPUSH (01:38)
[2021-05-31] MEDS: Labetalol HCL 100 MG/20 ML VIAL 20 MG IVPUSH (02:50)
[2021-05-31 03:16] LABS: MANUAL DIFF FLAG NO
[2021-05-31 03:17] LABS: Basophils Percent Auto 0.3 % (0-2); Eosinophils Absolute Auto 0.1 X10*3/uL (0.0-0.4); Eosinophils Percent Auto 0.6 % (0-4); Hematocrit 32.7 % (37.0-47.0); Hemoglobin 11.6 g/dl (12.0-16.0); Imm Gran Abs Auto 0.04 X10*3/uL (0.00-0.03); Imm Gran Pct Auto 0.3 % (0.0-0.4); Lymphocytes Absolute Auto 1.7 X10*3/uL (1.2-4.9); Lymphocytes Percent Auto 13.6 % (20-40); Mean Corpuscular HGB Conc 35.5 g/dl (31.0-35.0); Mean Corpuscular Hemoglobin 32.4 pg (27.0-33.0); Mean Corpuscular Volume 91.3 fL (80.0-98.0); Mean Platelet Volume 9.8 fL (9.4-12.3); Monocytes Absolute Auto 0.7 X10*3/uL (0.1-1.2); Monocytes Percent Auto 5.1 % (2-11); Neutrophils Absolute Auto 10.2 x10*3/uL (2.0-8.3); Neutrophils Percent Auto 80.1 % (45-73); Platelet Count 322 X10*3/uL (160-400); Red Blood Count 3.58 X10*6/uL (4.20-5.50); Red Cell Distribution Width 17.3 % (11.0-16.0); White Blood Count 12.7 X10*3/uL (4.8-10.8)
[2021-05-31 03:27] LABS: COVID-19 Test Negative (Negative)
[2021-05-31 03:39] LABS: B Type Natriuretic Peptide 4346 pg/mL (<100); Troponin-I High Sensitivity 56.1 ng/L (<3.5-17.0)
[2021-05-31 03:43] LABS: Alanine Aminotransferase 31 U/L (0-31); Albumin Level 3.1 g/dL (3.5-5.0); Alkaline Phosphatase 133 U/L (39-117); Anion Gap 12 (12-20); Aspartate Amino Transferase 35 U/L (5-31); Bilirubin Direct 0.5 mg/dL (0.0-0.5); Bilirubin Total 1.2 mg/dL (0.0-1.0); Blood Urea Nitrogen 27 mg/dL (9-16); Calcium 8.6 mg/dL (8.4-10.2); Carbon Dioxide 26 mmol/L (22-29); Chloride 100 mmol/L (96-108); Creatinine Clr Calc Pharmacy 52.5; Estimated Glomerular Filt Rate 36; Glucose Random 349 mg/dL (60-115); Potassium 3.4 mmol/L (3.3-5.1); Sodium 135 mmol/L (135-145); Total Protein 5.2 g/dL (6.5-8.0)
[2021-05-31 03:50] LABS: HCG Quantitative < 2 mIU/mL
--- NOTE | 2021-05-31 05:34 | P.HPHOSP_ITS ---
History of Present Illness Date of Service: 05/31/21 Chief Complaint: SOB This is a 41-year-old female with past medical history of poorly-controlled hypertension, PTSD, Sjogren's disease, CKD, diabetes, CHF, bipolar, history of second-degree AV block, among others who presents to the hospital with complaints of shortness of breath. Patient reports her symptoms started 2 days ago, associated with a minimal cough, sputum production, she has had orthopnea PND, no lower extremity edema. Denies any fever or chills. Reports compliance with her medications but has had high blood pressure. Patient reports that she is not on a water pill but her blood pressure has been significantly high with SBP of 240 as her normal everyday reading. She reports compliance with all her for medications for her blood pressure. Patient otherwise denies any abdominal pain nausea or vomiting, no diarrhea constipation, no urinary symptoms and no lower extremity edema. No numbness tingling, no headache and no change in visi on. on arrival to the ED patient's vitals were significant for a blood pressure of 240/160, received 2 doses of 10 mg 20 mg IV labetalol as well as Ativan with mild improvement in her blood pressure to 190/145. Labs are significant for WBC count of 12.7, hemoglobin of 11.6, BUN of 27, creatinine of 1.6 with a baseline around 1 0.09 in January of 2021 She has a troponin of 56.1, and a BNP of 4346. Chest x-ray shows no acute pulmonary findings Review of Systems Review of Systems: Yes all other systems are reviewed and are negative [facility] Medical History Anxiety Bipolar 1 disorder Cardiomyopathy CKD (chronic kidney disease) stage 2, GFR 60-89 ml/min Diabetes mellitus Eclampsia Fatty liver H/O mixed connective tissue disease Heart block AV second degree High cholesterol History of DVT (deep vein thrombosis) HTN (hypertension) Hypersomnia Lupus Migraines Nicotine dependence, cigarettes, uncomplicated (~1999) PTSD (post-traumatic stress disorder) Rheumatoid arthritis Sjogren's disease Family History Other Diabetes HTN (hypertension) Surgical History History of bronchoscopy (~11/2020) History of cholecystectomy (~05/2014) History of hysterectomy Social History Household Members: Children Household Members Other:: children Housing: House Are you a primary healthcare business analyst to a significant other at home: No Do you presently have visiting nurse or other home services: No Alcohol intake: current Alcohol intake frequency: does not drink Alcohol type: hard liquor Patient Tobacco Use Status: Current everyday Tobacco user Tobacco use type: Cigarette Cigarette Packs Per Day: 0.5 Cigarettes Per Day: 10 Years Smoked: 20 e-Cigarette/Vaping Use: Never Used Second Hand Smoke Exposure: Yes Substance Use Type: Marijuana Advance Directives: No Patient : No service: No Current occupational status: disabled Meds Allergies Allergy/AdvReac Type Severity Reaction Status Date / Time Cephalosporins Allergy Intermediate RASH ALL Verified 04/25/21 11:21 [CEPHALOSPORINS] OVER amoxicillin Allergy Unknown rash Verified 04/25/21 11:21 cefaclor [From Ceclor] Allergy Unknown RASH Verified 04/25/21 11:21 cephalexin Allergy Unknown rash Verified 04/25/21 11:21 cephradine [From VELOSEF] Allergy Unknown RASH Verified 04/25/21 11:21 Penicillins [PENICILLINS] Allergy Unknown RASH Verified 04/25/21 11:21 gabapentin [GABAPENTIN] AdvReac Unknown RESTLESS Verified 04/25/21 11:21 LEGS, Body becomes very uncomfortable Active Medications: Current Medications Acetaminophen (Acetaminophen 325 Mg Tablet) 650 mg PO Q6H PRN PRN Reason: Pain, Mild (Pain Scale 1-3) Docusate Sodium (Docusate Sodium 100 Mg Capsule) 100 mg PO DAILY PRN PRN Reason: Constipation Enoxaparin Sodium (Enoxaparin Sodium 40 Mg/0.4 Ml Syringe) 40 mg SUBCUT Q24H BRIAN Furosemide (Furosemide 40 Mg/4 Ml Vial) 40 mg IVPUSH BID@0900,1800 [facility]; Protocol Ondansetron HCl (Ondansetron Hcl 4 Mg/2 Ml Vial) 4 mg IVPUSH Q8H PRN PRN Reason: Nausea and Vomiting Sodium Chloride (0.9 % Sodium Chloride Flush 3 Ml Syringe) 3 ml IVFLUSH QSHIFT [facility] Home Medications Medication Instructions Recorded Confirmed Last Taken Type aspirin 81 mg tablet,delayed 81 mg PO DAILY 09/14/20 04/25/21 01/06/21 History release dapagliflozin 10 mg-metformin ER 1 tab PO DAILY 10/25/20 04/25/21 01/06/21 History 1,000 mg tablet,extended release 24hr (Xigduo XR) clonazepam 1 mg tablet 1 mg PO DAILY PRN 11/05/20 04/25/21 01/06/21 History amlodipine 10 mg tablet 10 mg PO DAILY 11/08/20 04/25/21 01/07/21 History lamotrigine 100 mg tablet 150 mg PO DAILY tab 11/08/20 04/25/21 01/06/21 History Physical Exam Vital Signs and Narrative: Vital Signs: Last Vital Signs Pulse 91 05/31/21 02:30 Resp 20 05/31/21 01:43 BP 191/145 H 05/31/21 02:30 Pulse Ox 99 05/31/21 02:30 BMI result Body Mass Index 29.0 Const: General: cooperative and no acute distress Orientatio n/consciousness: patient oriented x3 Eyes: General: appearance normal, both eyes and all related structures Pupils: Equal, round and reactive pupils present Resp: Other: Distant lung sounds, I cannot appreciate any crackles Effort & Inspection: normal respiratory effort Auscultation: clear to auscultation bilaterally Cardio: Rate: regular rate Rhythm: regular rhythm GI: Palpation (GI): Soft to palpation Auscultation: normal bowel sounds Skin: General skin exam: no rashes or lesions noted Neuro: General: patient oriented x3 Cranial nerves: Yes Equal, round and reactive pupils present Cognition (Neuro): normal cognition Extrem: General: Yes normal to inspection and Yes no pedal edema Results Labs CBC and Chem 7: 05/31/21 03:10 05/31/21 03:10 Labs: Laboratory Results - last 24 hr 05/31/21 05/31/21 05/31/21 03:10 03:10 03:10 MCV 91.3 MCH 32.4 MCHC 35.5 H RDW 17.3 H Plt Count 322 MPV 9.8 Immature Gran % (Auto) 0.3 Neut % (Auto) 80.1 H Lymph % (Auto) 13.6 L [place] % (Auto) 5.1 Eos % (Auto) 0.6 Baso % (Auto) 0.3 Lymph # (Auto) 1.7 [place] # (Auto) 0.7 Eos # (Auto) 0.1 Baso # (Auto) 0.0 Abs Immat Gran (auto) 0.04 H Absolute Neuts (auto) 10.2 H Absolute Nucleated RBC 0.000 Nucleated RBC % (auto) 0.0 Anion Gap 12 Estim Creat Clear Calc 52.5 Estimated GFR 36 Random Glucose 349 H Calcium 8.6 Total Bilirubin 1.2 H Direct Bilirubin 0.5 AST 35 H D ALT 31 Alkaline Phosphatase 133 H B-Natriuretic Peptide 4346 H Total Protein 5.2 L D Albumin 3.1 L D Beta HCG, Quant < 2 COVID-19 (TOM) COVID-19 Clin Com 05/31/21 03:10 MCV MCH MCHC RDW Plt Count MPV Immature Gran % (Auto) Neut % (Auto) Lymph % (Auto) [place] % (Auto) Eos % (Auto) Baso % (Auto) Lymph # (Auto) [place] # (Auto) Eos # (Auto) Baso # (Auto) Abs Immat Gran (auto) Absolute Neuts (auto) Absolute Nucleated RBC Nucleated RBC % (auto) Anion Gap Estim Creat Clear Calc Estimated GFR Random Glucose Calcium Total Bilirubin Direct Bilirubin AST ALT Alkaline Phosphatase B-Natriuretic Peptide Total Protein Albumin Beta HCG, Quant COVID-19 (TOM) Negative COVID-19 Clin Com See Note Imaging Radiologist's Impressions: Impressions Chest X-Ray 05/31/21 03:52 IMPRESSION: No acute pulmonary finding. Assessment and Plan (1) CHF exacerbation: Status: Acute (2) Hypertensive crisis: Status: Acute (3) Elevated troponin: Status: Acute (4) Acute kidney injury superimposed on CKD: Status: Acute (5) Leukocytosis: Status: Acute Plan This is a 41-year-old female with poorly-controlled hypertension as well as CHF who presents to the hospital with shortness of breath and hypertensive urgency # shortness of breath - most likely CHF exacerbation, patient has significantly elevated BNP, orthopnea, PND versus PE versus pneumonia less likely - chest x-ray negative for any evidence of pulmonary congestion or pneumonia - given the significantly high a BNP as well as orthopnea and PND will treat with IV Lasix - will obtain V/Q scan - monitor respiratory status # CHF exacerbation - likely secondary to hypertensive crisis - elevated BNP, orthopnea, PND - will place on Lasix 40 IV b.i.d., low-sodium diet, strict I&O - last echo done in 2020 shows an ejection fraction of 45-50% - echocardiogram, cardiology consult # hypertensive urgency - presented to the hospital with BP of 240/160 - patient denies any chest pain, no headache, no palpitations - will resume her home medications - given her young age, and uncontrolled blood pressure on multiple medications patient likely will need further workup, nephrology has been consulted # troponin elevation - likely secondary to hypertensive crisis - no chest pain - EKG shows normal sinus rhythm with left atrial unwell drain, left ventricular hypertrophy - will trend - cardiology consulted # leukocytosis - no evidence of infection possibly reactive - will obtain UA - chest x-ray negative - follow CBC # diabetes - low-dose sliding scale insulin, diabetic diet DVT prophylaxis Lovenox Quality Stroke Does the patient have a stroke diagnosis?: No VTE Prior VTE?: No VTE Risk Level:: Medical - moderate - high VTE Device Contraindication: Treatment Not Indicated VTE Drug Contraindication: N/A - Med Ordered
[2021-05-31] MEDS: Enoxaparin Sodium 40 MG/0.4 ML SYRINGE SUBCUT (06:02)
[2021-05-31 06:05] LABS: Appearance Urine CLEAR; Color Urine YELLOW; Glucose Urine UA >=1000 MG/DL (NEG); Leukocyte Esterase Urine NEG (NEG); Nitrite Urine NEG (NEG); Urine Blood TRACE (NEG); Urine Ketones NEG (NEG); Urine Protein 3+ MG/DL (NEG-TRACE)
[2021-05-31 06:16] LABS: Bacteria Urine TRACE /LPF; Hyaline Casts Urine 0-2 /LPF; Mucus Urine 1+ /LPF; RBC Urine 0 /HPF (0); Squamous Epithelial Cell Urine 2+ /LPF
[2021-05-31 06:38] LABS: MANUAL DIFF FLAG NO
[2021-05-31 06:47] LABS: Basophils Percent Auto 0.3 % (0-2); Eosinophils Absolute Auto 0.1 X10*3/uL (0.0-0.4); Eosinophils Percent Auto 0.7 % (0-4); Hematocrit 33.1 % (37.0-47.0); Hemoglobin 11.7 g/dl (12.0-16.0); Imm Gran Abs Auto 0.04 X10*3/uL (0.00-0.03); Imm Gran Pct Auto 0.3 % (0.0-0.4); Lymphocytes Percent Auto 17.2 % (20-40); Mean Corpuscular HGB Conc 35.3 g/dl (31.0-35.0); Mean Corpuscular Hemoglobin 32.4 pg (27.0-33.0); Mean Corpuscular Volume 91.7 fL (80.0-98.0); Mean Platelet Volume 9.6 fL (9.4-12.3); Monocytes Absolute Auto 0.7 X10*3/uL (0.1-1.2); Monocytes Percent Auto 5.7 % (2-11); Neutrophils Percent Auto 75.8 % (45-73); Platelet Count 314 X10*3/uL (160-400); Red Blood Count 3.61 X10*6/uL (4.20-5.50); Red Cell Distribution Width 17.4 % (11.0-16.0); White Blood Count 11.9 X10*3/uL (4.8-10.8)
[2021-05-31 06:55] LABS: Anion Gap 11 (12-20); Blood Urea Nitrogen 24 mg/dL (9-16); Calcium 8.8 mg/dL (8.4-10.2); Carbon Dioxide 28 mmol/L (22-29); Chloride 100 mmol/L (96-108); Creatinine Clr Calc Pharmacy 53.9; Estimated Glomerular Filt Rate 37; Glucose Random 273 mg/dL (60-115); Potassium 3.1 mmol/L (3.3-5.1); Sodium 136 mmol/L (135-145)
[2021-05-31 07:05] LABS: Troponin-I High Sensitivity 52.8 ng/L (<3.5-17.0)
[2021-05-31] MEDS: Insulin Lispro 100 UNIT/ML 3 ML VIAL SUBCUT ×3 (08:18→18:49)
[2021-05-31] MEDS: Furosemide 40 MG/4 ML VIAL IVPUSH ×2 (08:19→18:32)
[2021-05-31] MEDS: hydrALAZINE HCl 20 MG/ML VIAL IVPUSH (08:44)
--- NOTE | 2021-05-31 09:39 | PHA.MEDREC ---
Pharmacy Consult ? Medication Reconciliation Pharmacy has completed the medication reconciliation. Patient reports she still take hydralazine 100 mg TID however last fill 02/13/21 and was prescibed s/p dc from [facility] [place]. Per primary care visit notes, there is no documentation of it being continued. Patient reports taking lisiniopril last filled october 2020. Per april 2021, PCP note patient is to continue lisinopril. Lilian Argueta, LalitD
[2021-05-31] MEDS: Acetaminophen 325 MG TABLET 650 MG PO ×2 (09:42→16:46)
[2021-05-31] MEDS: amLODIPine Besylate 10 MG TABLET PO (10:48)
[2021-05-31] MEDS: Aspirin Enteric Coated 81 MG TABLET.DR PO (10:48)
[2021-05-31] MEDS: lamoTRIgine 100 MG TABLET 150 MG PO (10:48)
[2021-05-31] MEDS: lisinopriL 20 MG TABLET PO ×2 (10:48→22:35)
--- NOTE | 2021-05-31 11:00 | CA_ITS ---
Transthoracic Echocardiogram Patient (Last, First, Middle): Angela Streeter L Gender: Female Date of : 1980 Age: 41 Procedure Date: 05/31/2021 Procedure Type: Transthoracic Echocardiogram Location: ER Height: 170.18 cm Weight: 83.92 kg BSA: 1.96 m2 Heart Rate: bpm BP: 203 / 146 mmHg Crown Buffer: Referring MD: Tera Hardwick MD Symptoms: CHF Study Quality: Fair ECG Rhythm: Sinus Conclusions: - The left ventricular systolic function is mildly decreased. The calculated ejection fraction is 43% by biplane method. - Mildly increased right ventricular cavity size. - The left atrium is severely dilated. - No obvious valvular pathology seen on this study. - Mild pulmonary hypertension is present. - There is a small circumferential pericardial effusion. Findings Left Ventricle Normal left ventricular cavity size. The left ventricular systolic function is mildly decreased. The calculated ejection fraction is 43% by biplane method. There is mild global hypokinesis. E/E prime ratio is >15, consistent with elevated filling pressures. Evidence suggests grade II (moderate) diastolic dysfunction. Moderate to severe concentric left ventricular hypertrophy. Right Ventricle Mildly increased right ventricular cavity size. There is normal right ventricular systolic function. Atria The left atrium is severely dilated. The right atrium is normal in size. Aortic Valve There is a normal trileaflet aortic valve. There is no aortic valve stenosis. There is no aortic valve regurgitation. Mitral Valve The mitral valve appears normal. There is trace mitral valve regurgitation. There is no mitral valve stenosis. Pulmonic Valve The pulmonic valve was not well visualized. There is mild pulmonic valve regurgitation. Tricuspid Valve There is mild tricuspid valve regurgitation. The right ventricular systolic pressure is 40 mmHg. Mild pulmonary hypertension is present. Great Vessels The aortic annulus, sinuses of valsalva, and asc aorta are normal in size. Venous The inferior vena cava is mildly dilated and collapses greater than 50% with inspiration. Pericardium/Pleural There is a small circumferential pericardial effusion. There are no definitive echocardiographic findings of tamponade physiology. Prior Study Comparison No significant change compared to prior study. Recommendations, Care & Conclusions No obvious valvular pathology seen on this study. Measurements 2D Linear Measurements IVSd: 1.42 0.6-0.9/0.6-1.0 cm LVIDd: 5.26 3.9-5.3/4.2-5.9 cm LVIDd Index: 2.68 2.4-3.2/2.2-3.1 cm/m2 LVIDs: 4.15 2.0-3.6 cm LVPWd: 1.32 0.7-1.1 cm Ao Root: 3.00 2.1-3.5 cm LA Diam: 5.50 2.7-3.8/3.0-4.0 cm LAIDs Index: 2.81 1.5-2.3 cm/m2 LV Mass: 381.13 67-162/88-224 g LV Mass Index: 194.45 43-95/49-115 g/m2 LVOT Diam: 2.30 3.0+(-)1.3 cm 2D Systolic Function EF 4C: 40.00 >55% EF 2C: 47.40 >55% EF BiP: 42.90 >55% Mitral Valve MV Pk E: 1.06 MV PK A: 0.60 MV Decel Time: 106.00 E/A: 1.80 E'Lateral: 5.66 E'Medial: 4.68 E/E' Med: 22.60 E/E' Lat: 18.70 PHT: 31.00 MVA PHT: 7.10 Decel [place]: 9.98 Aortic Valve AoV Pk Sebas: 1.66 AoV Mn Sebas: 1.08 AoV VTI: 0.34 AoV Pk Grad: 11.00 Aov Mn Grad: 6.00 SATISH Cont.VTI: 2.40 LVOT LVOT Pk Sebas: 1.11 LVOT Mn Sebas: 0.73 LVOT VTI: 0.20 LVOT Pk Grad: 5.00 LVOT Mn Grad: 3.00 LVOT Diam: 2.30 LVOT Area: 4.15 Diastolic Function MV Pk E: 1.06 MV Pk A: 0.60 E/A: 1.80 E'Medial: 4.68 E/E' Med: 22.60 E' Laterial: 5.66 E/E' Lat: 18.70 Right Ventricle TAPSE (mm): 28.00 TVS' Sebas: 11.00 Tricuspid Valve TR Pk Sebas: 2.83 TR Pk Grad: 32.00 RA Press: 8.00 RVSP: 40.00 Great Vessels Aorta Ao Root-2D: 3.00 2.0-3.7 cm Ao Asc: 3.60 2.1-3.4 cm Pulmonary Valve PV Pk Sebas: 1.07 Peak PV Grad: 5.00 Updated in Other Vendor System with Status of Final Nathaniel Garcia MD electronically signed on 05/31/2021 1:38:55 PM with status of Final
--- NOTE | 2021-05-31 11:41 | PM.CNCAR ---
History of Present Illness History of Present Illness Date of Service: 05/31/21 Chief complaint: hypertensive urgency, CHF exacerbation Narrative: This is a cardiology consultation regarding uncontrolled hypertension shortness of breath. She was last seen by Dianelys Cobb in our office in the middle of last year. It seems that she has a history of uncontrolled hypertension. This has been going on for more than 15 years. According to her, numerous medications have been tried on her but apparently a pressures been still high. Normally she can do a lot of her daily activities but in the last few days, her breathing has been quite bad that she could not even walk short distances. Hence presented to the hospital. Upon arrival, blood pressure was as high as 224/160 mm Hg. Currently it is improved but still high. Review of Systems Review of Systems: Yes all other systems are reviewed and are negative Cardiovascular: Cardiovascular: Reports as per HPI, Reports no additional cardiovascular complaints, Denies acrocyanosis, Denies cool extremities, Denies chest pain, Denies diaphoresis, Denies syncope, Denies claudication, Denies leg edema, Denies lightheadedness, Denies palpitations and Reports dyspnea Respiratory: Respiratory: Reports dyspnea Neurologic: Denies syncope Endocrine: Endocrine: Denies palpitations PMFSH Past Medical History Medical History Anxiety Bipolar 1 disorder Cardiomyopathy CKD (chronic kidney disease) stage 2, GFR 60-89 ml/min Diabetes mellitus Eclampsia Fatty liver H/O mixed connective tissue disease Heart block AV second degree High cholesterol History of DVT (deep vein thrombosis) HTN (hypertension) Hypersomnia Lupus Migraines Nicotine dependence, cigarettes, uncomplicated (~1999) PTSD (post-traumatic stress disorder) Rheumatoid arthritis Sjogren's disease Family History Family History Other Diabetes HTN (hypertension) Surgical History Surgical History History of bronchoscopy (~11/2020) History of cholecystectomy (~05/2014) History of hysterectomy Social History Social History Household Members: Children Household Members Other:: children Housing: House Are you a primary career representative to a significant other at home: No Do you presently have visiting nurse or other home services: No Alcohol intake: current Alcohol intake frequency: does not drink Alcohol type: hard liquor Patient Tobacco Use Status: Current everyday Tobacco user Tobacco use type: Cigarette Cigarette Packs Per Day: 0.5 Cigarettes Per Day: 10 Years Smoked: 20 e-Cigarette/Vaping Use: Never Used Second Hand Smoke Exposure: Yes Substance Use Type: Marijuana Advance Directives: No Patient : No service: No Current occupational status: disabled Meds Allergies Allergy/AdvReac Type Severity Reaction Status Date / Time Cephalosporins Allergy Intermediate RASH ALL Verified 04/25/21 11:21 [CEPHALOSPORINS] OVER amoxicillin Allergy Unknown rash Verified 04/25/21 11:21 cefaclor [From Ceclor] Allergy Unknown RASH Verified 04/25/21 11:21 cephalexin Allergy Unknown rash Verified 04/25/21 11:21 cephradine [From VELOSEF] Allergy Unknown RASH Verified 04/25/21 11:21 Penicillins [PENICILLINS] Allergy Unknown RASH Verified 04/25/21 11:21 gabapentin [GABAPENTIN] AdvReac Unknown RESTLESS Verified 04/25/21 11:21 LEGS, Body becomes very uncomfortable Active Medications: Current Medications Acetaminophen (Acetaminophen 325 Mg Tablet) 650 mg PO Q6H PRN PRN Reason: Pain, Mild (Pain Scale 1-3) Last Admin: 05/31/21 09:42 Dose: 650 mg Documented by: Albuterol Sulfate (Albuterol Sulfate 90 Mcg 8 Gm Inhaler) 1 puff INHALE QID PRN PRN Reason: shortness of breath or wheezing Amlodipine Besylate (Amlodipine Besylate 10 Mg Tablet) 10 mg PO DAILY [facility]; Protocol Last Admin: 05/31/21 10:48 Dose: 10 mg Documented by: Aspirin (Aspirin Enteric Coated 81 Mg Tablet.) 81 mg PO DAILY [facility] Last Admin: 05/31/21 10:48 Dose: 81 mg Documented by: Clonazepam (Clonazepam 1 Mg Tablet) 1 mg PO DAILY PRN PRN Reason: anxiety Dextrose (Dextrose 50 % 25 Gm/50 Ml Syringe) 25 gm IVPUSH Q15M PRN; Protocol PRN Reason: per Hypoglycemia Standing Ord. Docusate Sodium (Docusate Sodium 100 Mg Capsule) 100 mg PO DAILY PRN PRN Reason: Constipation Enoxaparin Sodium (Enoxaparin Sodium 40 Mg/0.4 Ml Syringe) 40 mg SUBCUT Q24H [facility] Last Admin: 05/31/21 06:02 Dose: 40 mg Documented by: Furosemide (Furosemide 40 Mg/4 Ml Vial) 40 mg IVPUSH BID@0900,1800 [facility]; Protocol Last Admin: 05/31/21 08:19 Dose: 40 mg Documented by: Glucose (Glucose Gel 15 Gm Gel..Gram.) 15 gm PO Q15M PRN; Protocol PRN Reason: per Hypoglycemia Standing Ord. Insulin Human Lispro (Insulin Lispro 100 Unit/Ml 3 Ml Vial) 0 unit SUBCUT QIDACHS [facility]; Protocol Last Admin: 05/31/21 08:18 Dose: 1 unit Documented by: Lamotrigine (Lamotrigine 100 Mg Tablet) 150 mg PO DAILY [facility] Last Admin: 05/31/21 10:48 Dose: 150 mg Documented by: Lisinopril (Lisinopril 20 Mg Tablet) 20 mg PO BID [facility]; Protocol Last Admin: 05/31/21 10:48 Dose: 20 mg Documented by: Non-Formulary Medication (Dapagliflozin-Metformin [Xigduo Xr]) 1 tab PO DAILY [facility] Omeprazole (Omeprazole 20 Mg Capsule.Dr) 20 mg PO DAILY@0630 [facility] Last Admin: 05/31/21 10:49 Dose: Not Given Documented by: Ondansetron HCl (Ondansetron Hcl 4 Mg/2 Ml Vial) 4 mg IVPUSH Q8H PRN PRN Reason: Nausea and Vomiting Sodium Chloride (0.9 % Sodium Chloride Flush 3 Ml Syringe) 3 ml IVFLUSH QSHIFT [facility] Last Admin: 05/31/21 08:23 Dose: Not Given Documented by: Spironolactone (Spironolactone 25 Mg Tablet) 25 mg PO DAILY [facility]; Protocol Home Medications Medication Instructions Recorded Confirmed Last Taken Type aspirin 81 mg tablet,delayed 81 mg PO DAILY 09/14/20 05/31/21 05/30/21 History release dapagliflozin 10 mg-metformin ER 1 tab PO DAILY 10/25/20 05/31/21 05/30/21 History 1,000 mg tablet,extended release 24hr (Xigduo XR) clonazepam 1 mg tablet 1 mg PO DAILY PRN 11/05/20 05/31/21 05/29/21 History amlodipine 10 mg tablet 10 mg PO DAILY 11/08/20 05/31/21 05/30/21 History lamotrigine 100 mg tablet 150 mg PO DAILY tab 11/08/20 05/31/21 05/30/21 History Physical Exam Vital Signs: Vital Signs: Last Vital Signs Pulse 84 05/31/21 10:47 Resp 16 05/31/21 10:47 BP 180/112 H 05/31/21 10:47 Pulse Ox 100 05/31/21 10:47 BMI result Body Mass Index 29.0 Const: General: comfortable HENMT: Other: Unremarkable Neck: Neck: Yes normal visual inspection Chest: Chest palpation & inspection: normal inspection of the chest Resp: Auscultation: clear to auscultation bilaterally Cardio: Palpation: normal PMI Heart sounds: S1 normal heart sound present, S2 normal heart sound present, no gallops, no murmurs and no rubs GI: Palpation (GI): Soft to palpation Back/Spine/Pelvis: Other: unremarkable Skin: Lesions: other Neuro: General: other Extrem: General: Yes other Psych: Mental Status: other Objective Labs and Meds Result diagrams: 05/31/21 06:32 05/31/21 06:32 Lab results: Laboratory Results - last 24 hr 05/31/21 05/31/21 05/31/21 03:10 03:10 03:10 WBC 12.7 H RBC 3.58 L D Hgb 11.6 L D Hct 32.7 L D MCV 91.3 MCH 32.4 MCHC 35.5 H RDW 17.3 H Plt Count 322 MPV 9.8 Immature Gran % (Auto) 0.3 Neut % (Auto) 80.1 H Lymph % (Auto) 13.6 L [place] % (Auto) 5.1 Eos % (Auto) 0.6 Baso % (Auto) 0.3 Lymph # (Auto) 1.7 [place] # (Auto) 0.7 Eos # (Auto) 0.1 Baso # (Auto) 0.0 Abs Immat Gran (auto) 0.04 H Absolute Neuts (auto) 10.2 H Absolute Nucleated RBC 0.000 Nucleated RBC % (auto) 0.0 Sodium 135 Potassium 3.4 Chloride 100 Carbon Dioxide 26 Anion Gap 12 BUN 27 H D Creatinine 1.60 H Estim Creat Clear Calc 52.5 Estimated GFR 36 Random Glucose 349 H Calcium 8.6 Total Bilirubin 1.2 H Direct Bilirubin 0.5 AST 35 H D ALT 31 Alkaline Phosphatase 133 H Troponin I High Sens 56.1 H* B-Natriuretic Peptide 4346 H Total Protein 5.2 L D Albumin 3.1 L D Beta HCG, Quant < 2 Urine Color Urine Appearance Urine pH Ur Specific [place] Urine Protein Urine Glucose (UA) Urine Ketones Urine Blood Urine Nitrite Ur Leukocyte Esterase Urine RBC Urine WBC Ur Squamous Epith Cells Urine Bacteria Hyaline Casts Urine Mucus COVID-19 (TOM) COVID-19 Clin Com 05/31/21 05/31/21 05/31/21 03:10 05:54 06:32 WBC RBC Hgb Hct MCV MCH MCHC RDW Plt Count MPV Immature Gran % (Auto) Neut % (Auto) Lymph % (Auto) [place] % (Auto) Eos % (Auto) Baso % (Auto) Lymph # (Auto) [place] # (Auto) Eos # (Auto) Baso # (Auto) Abs Immat Gran (auto) Absolute Neuts (auto) Absolute Nucleated RBC Nucleated RBC % (auto) Sodium Potassium Chloride Carbon Dioxide Anion Gap BUN Creatinine Estim Creat Clear Calc Estimated GFR Random Glucose Calcium Total Bilirubin Direct Bilirubin AST ALT Alkaline Phosphatase Troponin I High Sens 52.8 H* B-Natriuretic Peptide Total Protein Albumin Beta HCG, Quant Urine Color YELLOW Urine Appearance CLEAR Urine pH 6.0 Ur Specific [place] 1.020 Urine Protein 3+ H Urine Glucose (UA) >=1000 H Urine Ketones NEG Urine Blood TRACE Urine Nitrite NEG Ur Leukocyte Esterase NEG Urine RBC 0 Urine WBC 1-4 Ur Squamous Epith Cells 2+ Urine Bacteria TRACE Hyaline Casts 0-2 Urine Mucus 1+ COVID-19 (TOM) Negative COVID-19 Clin Com See Note 05/31/21 05/31/21 06:32 06:32 WBC 11.9 H RBC 3.61 L Hgb 11.7 L Hct 33.1 L MCV 91.7 MCH 32.4 MCHC 35.3 H RDW 17.4 H Plt Count 314 MPV 9.6 Immature Gran % (Auto) 0.3 Neut % (Auto) 75.8 H Lymph % (Auto) 17.2 L [place] % (Auto) 5.7 Eos % (Auto) 0.7 Baso % (Auto) 0.3 Lymph # (Auto) 2.0 [place] # (Auto) 0.7 Eos # (Auto) 0.1 Baso # (Auto) 0.0 Abs Immat Gran (auto) 0.04 H Absolute Neuts (auto) 9.0 H Absolute Nucleated RBC 0.000 Nucleated RBC % (auto) 0.0 Sodium 136 Potassium 3.1 L Chloride 100 Carbon Dioxide 28 Anion Gap 11 L BUN 24 H Creatinine 1.56 H Estim Creat Clear Calc 53.9 Estimated GFR 37 Random Glucose 273 H Calcium 8.8 Total Bilirubin Direct Bilirubin AST ALT Alkaline Phosphatase Troponin I High Sens B-Natriuretic Peptide Total Protein Albumin Beta HCG, Quant Urine Color Urine Appearance Urine pH Ur Specific [place] Urine Protein Urine Glucose (UA) Urine Ketones Urine Blood Urine Nitrite Ur Leukocyte Esterase Urine RBC Urine WBC Ur Squamous Epith Cells Urine Bacteria Hyaline Casts Urine Mucus COVID-19 (TOM) COVID-19 Clin Com ECG Interpretation: EKG shows sinus rhythm at 90/Min; left ventricular hypertrophy with repolarization changes. Imaging Radiologist's impression: Impressions Chest X-Ray 05/31/21 03:52 IMPRESSION: No acute pulmonary finding. Pulmonary Perfusion Imaging 05/31/21 08:15 IMPRESSION: Normal perfusion scan. Assessment and Plan (1) Hypertensive emergency: Status: Acute (2) Acute diastolic (congestive) heart failure: Status: Acute Plan Current blood pressure edema is amlodipine 10 mg daily, lisinopril 20 mg twice daily. Per office note from our nurse practitioner last year, she was also on spironolactone 100 mg daily. At that time, she was also commenced on hydralazine. However these medications are not in her list. Unless any clear reasons why the cannot be used, probably resume. It seems that she has had heart block at nighttime and hence not on beta-blockers. Echocardiogram will be reviewed. Will follow up with you. Procedures Date of Service Date of Service: 05/31/21
[2021-05-31] MEDS: Spironolactone 25 MG TABLET PO (12:07)
[2021-05-31 14:27] LABS: Glucose, Whole Blood 202 mg/dL (60-115)
[2021-05-31] MEDS: Nicotine 14 MG PATCH.TD24 TRANSDERMA (14:38)
--- NOTE | 2021-05-31 15:12 | P.CONNP_ITS ---
History of Present Illness Reason for Consult Consult date: 05/31/21 Chief Complaint Chief complaint: hypertensive urgency, CHF exacerbation History of Present Illness Narrative: 41-year-old female with poorly-controlled hypertension, PTSD, Sjogren's disease, CKD, diabetes, CHF, bipolar, history of second-degree AV block, among other med ical issues presents to the hospital with shortness of breath.? She has had orthopnea, PND, no lower extremity edema, fever or chills.? Reports compliance with her medications but continues to have high blood pressure.?She reports compliance with all her for medications for her blood pressure.? Patient denies any abdominal pain nausea or vomiting, no diarrhea, urinary symptoms and no lower extremity edema.?In the ER her blood pressure was 240/160, BUN of 27, creatinine of 1.6 with a baseline around 1 0.09 in January of 2021. She was admitted for further management. Nephrology has been consulted to assist in her clinical care Review of Systems Review of Systems Yes all other systems are reviewed and are negative PMFSH Past Medical History Medical History Anxiety Bipolar 1 disorder Cardiomyopathy CKD (chronic kidney disease) stage 2, GFR 60-89 ml/min Diabetes mellitus Eclampsia Fatty liver H/O mixed connective tissue disease Heart block AV second degree High cholesterol History of DVT (deep vein thrombosis) HTN (hypertension) Hypersomnia Lupus Migraines Nicotine dependence, cigarettes, uncomplicated (~1999) PTSD (post-traumatic stress disorder) Rheumatoid arthritis Sjogren's disease Family History Family History Other Diabetes HTN (hypertension) Surgical History Surgical History History of bronchoscopy (~11/2020) History of cholecystectomy (~05/2014) History of hysterectomy Social History Social History Household Members: Children Household Members Other:: children Housing: House Are you a primary sub acute care nurse to a significant other at home: No Do you presently have visiting nurse or other home services: No Alcohol intake: current Alcohol intake frequency: does not drink Alcohol type: hard liquor Patient Tobacco Use Status: Current everyday Tobacco user Tobacco use type: Cigarette Cigarette Packs Per Day: 0.5 Cigarettes Per Day: 10 Years Smoked: 20 e-Cigarette/Vaping Use: Never Used Second Hand Smoke Exposure: Yes Substance Use Type: Marijuana Advance Directives: No Patient : No service: No Current occupational status: disabled Meds Allergies Allergy/AdvReac Type Severity Reaction Status Date / Time Cephalosporins Allergy Intermediate RASH ALL Verified 04/25/21 11:21 [CEPHALOSPORINS] OVER amoxicillin Allergy Unknown rash Verified 04/25/21 11:21 cefaclor [From Ceclor] Allergy Unknown RASH Verified 04/25/21 11:21 cephalexin Allergy Unknown rash Verified 04/25/21 11:21 cephradine [From VELOSEF] Allergy Unknown RASH Verified 04/25/21 11:21 Penicillins [PENICILLINS] Allergy Unknown RASH Verified 04/25/21 11:21 gabapentin [GABAPENTIN] AdvReac Unknown RESTLESS Verified 04/25/21 11:21 LEGS, Body becomes very uncomfortable Active Medications: Current Medications Acetaminophen (Acetaminophen 325 Mg Tablet) 650 mg PO Q6H PRN PRN Reason: Pain, Mild (Pain Scale 1-3) Last Admin: 05/31/21 09:42 Dose: 650 mg Documented by: Albuterol Sulfate (Albuterol Sulfate 90 Mcg 8 Gm Inhaler) 1 puff INHALE QID PRN PRN Reason: shortness of breath or wheezing Amlodipine Besylate (Amlodipine Besylate 10 Mg Tablet) 10 mg PO DAILY [facility]; Protocol Last Admin: 05/31/21 10:48 Dose: 10 mg Documented by: Aspirin (Aspirin Enteric Coated 81 Mg Tablet.) 81 mg PO DAILY [facility] Last Admin: 05/31/21 10:48 Dose: 81 mg Documented by: Clonazepam (Clonazepam 1 Mg Tablet) 1 mg PO DAILY PRN PRN Reason: anxiety Dextrose (Dextrose 50 % 25 Gm/50 Ml Syringe) 25 gm IVPUSH Q15M PRN; Protocol PRN Reason: per Hypoglycemia Standing Ord. Docusate Sodium (Docusate Sodium 100 Mg Capsule) 100 mg PO DAILY PRN PRN Reason: Constipation Enoxaparin Sodium (Enoxaparin Sodium 40 Mg/0.4 Ml Syringe) 40 mg SUBCUT Q24H [facility] Last Admin: 05/31/21 06:02 Dose: 40 mg Documented by: Furosemide (Furosemide 40 Mg/4 Ml Vial) 40 mg IVPUSH BID@0900,1800 [facility]; Protocol Last Admin: 05/31/21 08:19 Dose: 40 mg Documented by: Glucose (Glucose Gel 15 Gm Gel..Gram.) 15 gm PO Q15M PRN; Protocol PRN Reason: per Hypoglycemia Standing Ord. Insulin Human Lispro (Insulin Lispro 100 Unit/Ml 3 Ml Vial) 0 unit SUBCUT QIDACHS [facility]; Protocol Last Admin: 05/31/21 14:38 Dose: 4 unit Documented by: Lamotrigine (Lamotrigine 100 Mg Tablet) 150 mg PO DAILY [facility] Last Admin: 05/31/21 10:48 Dose: 150 mg Documented by: Lisinopril (Lisinopril 20 Mg Tablet) 20 mg PO BID [facility]; Protocol Last Admin: 05/31/21 10:48 Dose: 20 mg Documented by: Nicotine (Nicotine 14 Mg Patch.Td24) 14 mg TRANSDERMA DAILY [facility] Last Admin: 05/31/21 14:38 Dose: 14 mg Documented by: Non-Formulary Medication (Dapagliflozin-Metformin [Xigduo Xr]) 1 tab PO DAILY [facility] Omeprazole (Omeprazole 20 Mg Capsule.Dr) 20 mg PO DAILY@0630 [facility] Last Admin: 05/31/21 10:49 Dose: Not Given Documented by: Ondansetron HCl (Ondansetron Hcl 4 Mg/2 Ml Vial) 4 mg IVPUSH Q8H PRN PRN Reason: Nausea and Vomiting Sodium Chloride (0.9 % Sodium Chloride Flush 3 Ml Syringe) 3 ml IVFLUSH QSHIFT [facility] Last Admin: 05/31/21 08:23 Dose: Not Given Documented by: Spironolactone (Spironolactone 25 Mg Tablet) 25 mg PO DAILY [facility]; Protocol Last Admin: 05/31/21 12:07 Dose: 25 mg Documented by: Home Medications Medication Instructions Recorded Confirmed Last Taken Type aspirin 81 mg tablet,delayed 81 mg PO DAILY 09/14/20 05/31/21 05/30/21 History release dapagliflozin 10 mg-metformin ER 1 tab PO DAILY 10/25/20 05/31/21 05/30/21 History 1,000 mg tablet,extended release 24hr (Xigduo XR) clonazepam 1 mg tablet 1 mg PO DAILY PRN 11/05/20 05/31/21 05/29/21 History amlodipine 10 mg tablet 10 mg PO DAILY 11/08/20 05/31/21 05/30/21 History lamotrigine 100 mg tablet 150 mg PO DAILY tab 11/08/20 05/31/21 05/30/21 History Physical Exam Vital Signs: Last Vital Signs Pulse 80 05/31/21 12:07 Resp 18 05/31/21 12:07 BP 168/101 H 05/31/21 12:07 Pulse Ox 97 05/31/21 12:07 BMI result Body Mass Index 29.0 Const General: cooperative Eyes EOM: EOMs intact bilaterally Neck Neck: Yes supple Resp Auscultation: diminished lung sounds Cardio Rate: regular rate GI Palpation (GI): Soft to palpation Neuro General: moves all extremities Results Lab Results Result Diagrams: 05/31/21 06:32 05/31/21 06:32 Lab results: Chemistry 05/31/21 05/31/21 03:10 06:32 Sodium 135 136 Potassium 3.4 3.1 L Carbon Dioxide 26 28 BUN 27 H D 24 H Creatinine 1.60 H 1.56 H Calcium 8.6 8.8 Hematology 05/31/21 05/31/21 03:10 06:32 WBC 12.7 H 11.9 H Hgb 11.6 L D 11.7 L Plt Count 322 314 Urinalysis 05/31/21 05:54 Urine Color YELLOW Urine Appearance CLEAR Urine pH 6.0 Ur Specific [place] 1.020 Urine Protein 3+ H Urine Glucose (UA) >=1000 H Urine Ketones NEG Urine Blood TRACE Urine Nitrite NEG Ur Leukocyte Esterase NEG Urine RBC 0 Urine WBC 1-4 Ur Squamous Epith Cells 2+ Hyaline Casts 0-2 Assessment and Plan (1) Acute kidney injury superimposed on CKD: Status: Acute Plan Worsening proteinuria with uncontrolled hypertension and worsening renal function( Likely Diabetic Nephropathy but needs to R/O GN given her H/O auto immune disease) Hypervolemic - Was started on furosemide and Spironolactone; On ACEI U/A- No significant RBC; Work up ordered; Likely will need renal biopsy this admission when her clinical status is optimized If there is no cardiac CI, would switch Amlodipine to Diltiazem ( Diltiazem has anti proteinuric effects) No Aspirin for now as she will need renal biopsy; Labs AM. Shall follow up closely Procedures Date of Service Date of Service: 05/31/21
--- NOTE | 2021-05-31 16:34 | PM.EVENT ---
Event Note Date of Service: 05/31/21 Event Note: Chart reviewed patient examined. Agree with exam as done this a.m. Appreciate Cardiology and Nephrology input. Will follow up with recommendation; when echo complete if no abnormalities will DCM load pain in favor of diltiazem. Follow renal/divalents daily.
[2021-05-31] MEDS: oxyCODONE HCl Immed Release 5 MG TABLET 10 MG PO ×2 (18:33→22:34)
[2021-05-31 18:51] LABS: Glucose, Whole Blood 313 mg/dL (60-115)
[2021-05-31 22:43] LABS: Glucose, Whole Blood 277 mg/dL (60-115)
--- NOTE | 2021-05-31 23:06 | PC.NURSE ---
Patient's blood sugar 277 but no insulin sliding scale coverage. Hospitalist notified and was told about no insulin coverage
[2021-06-01] VITALS (9 sets, daily range): BP systolic 156–190; BP diastolic 95–112; PULSE 73–87; RESP 14–20; TEMP 36.3–36.8; O2SAT 94–100; BMI 29.4
[2021-06-01] MEDS: Insulin Lispro 100 UNIT/ML 3 ML VIAL SUBCUT ×5 (00:38→20:42)
--- NOTE | 2021-06-01 01:20 | PC.NURSE ---
Patient's blood pressure is increasing into 170-180s systolic. Hospitalist noftified and she said that the blood pressure was okay at the moment. She wrote for hydralazine if the pressure goes above 190.
[2021-06-01] MEDS: Acetaminophen 325 MG TABLET 650 MG PO ×4 (02:38→22:59)
[2021-06-01] MEDS: Omeprazole 20 MG CAPSULE.DR PO (05:24)
[2021-06-01] MEDS: oxyCODONE HCl Immed Release 5 MG TABLET 10 MG PO ×3 (05:24→19:25)
[2021-06-01] MEDS: Enoxaparin Sodium 40 MG/0.4 ML SYRINGE SUBCUT (05:24)
[2021-06-01 06:19] LABS: MANUAL DIFF FLAG NO
[2021-06-01 06:25] LABS: Basophils Percent Auto 0.2 % (0-2); Eosinophils Absolute Auto 0.1 X10*3/uL (0.0-0.4); Eosinophils Percent Auto 1.2 % (0-4); Hematocrit 34.9 % (37.0-47.0); Hemoglobin 11.9 g/dl (12.0-16.0); Imm Gran Abs Auto 0.04 X10*3/uL (0.00-0.03); Imm Gran Pct Auto 0.4 % (0.0-0.4); Lymphocytes Absolute Auto 1.5 X10*3/uL (1.2-4.9); Lymphocytes Percent Auto 14.7 % (20-40); Mean Corpuscular HGB Conc 34.1 g/dl (31.0-35.0); Mean Corpuscular Hemoglobin 32.3 pg (27.0-33.0); Mean Corpuscular Volume 94.8 fL (80.0-98.0); Mean Platelet Volume 9.7 fL (9.4-12.3); Monocytes Absolute Auto 0.7 X10*3/uL (0.1-1.2); Monocytes Percent Auto 6.4 % (2-11); Neutrophils Absolute Auto 7.9 x10*3/uL (2.0-8.3); Neutrophils Percent Auto 77.1 % (45-73); Platelet Count 346 X10*3/uL (160-400); Red Blood Count 3.68 X10*6/uL (4.20-5.50); Red Cell Distribution Width 17.2 % (11.0-16.0); White Blood Count 10.2 X10*3/uL (4.8-10.8)
[2021-06-01 07:26] LABS: Alanine Aminotransferase 26 U/L (0-31); Albumin Level 3.1 g/dL (3.5-5.0); Alkaline Phosphatase 106 U/L (39-117); Anion Gap 13 (12-20); Aspartate Amino Transferase 17 U/L (5-31); Bilirubin Total 1.4 mg/dL (0.0-1.0); Blood Urea Nitrogen 19 mg/dL (9-16); Carbon Dioxide 30 mmol/L (22-29); Chloride 98 mmol/L (96-108); Creatinine Clr Calc Pharmacy 60.4; Estimated Glomerular Filt Rate 42; Glucose Fasting 228 mg/dL (60-99); Potassium 3.2 mmol/L (3.3-5.1); Sodium 138 mmol/L (135-145); Total Protein 5.1 g/dL (6.5-8.0)
[2021-06-01 07:38] LABS: Glucose, Whole Blood 195 mg/dL (60-115)
[2021-06-01] MEDS: lisinopriL 20 MG TABLET PO ×2 (08:15→20:43)
[2021-06-01] MEDS: lamoTRIgine 100 MG TABLET 150 MG PO (08:16)
[2021-06-01] MEDS: amLODIPine Besylate 10 MG TABLET PO (08:16)
[2021-06-01] MEDS: Aspirin Enteric Coated 81 MG TABLET.DR PO (08:18)
[2021-06-01] MEDS: Furosemide 40 MG/4 ML VIAL IVPUSH ×2 (08:19→17:24)
[2021-06-01] MEDS: Potassium Chloride Packet 20 MEQ PACKET 40 MEQ PO (09:21)
[2021-06-01] MEDS: Spironolactone 25 MG TABLET 50 MG PO (09:22)
[2021-06-01] MEDS: 0.9 % Sodium Chloride Flush 3 ML SYRINGE IVFLUSH ×2 (09:23→17:27)
[2021-06-01] MEDS: Nicotine 14 MG PATCH.TD24 TRANSDERMA (10:10)
[2021-06-01] MEDS: ondansetron HCL 4 MG/2 ML VIAL IVPUSH (10:22)
[2021-06-01 11:42] LABS: Glucose, Whole Blood 171 mg/dL (60-115)
--- NOTE | 2021-06-01 11:43 | P.PNIM_ITS ---
Subjective Subjective Date of Service: 06/01/21 Interval History: Nauseous this morning after oral potassium. otherwise no acute issues overnight Review of Systems admits to nausea and vomiting Denies chest pain Denies shortness of breath Physical Exam Vital Signs: Vital Signs: Last Vital Signs Temp 97.4 F 06/01/21 07:20 Pulse 83 06/01/21 07:20 Resp 18 06/01/21 07:20 BP 185/112 H 06/01/21 07:20 Pulse Ox 97 06/01/21 07:20 BMI result Body Mass Index 29.4 Const: Other: awake alert oriented x3 no acute distress Resp: Other: clear to auscultation bilaterally no rales rhonchi wheezes Cardio: Other: no S4; positive S1 /S2; no S3 murmurs rubs or gallops GI: Other: soft nontender nondistended with normoactive bowel sounds Extrem: Other: no edema bilaterally Objective Data Active Medications Acetaminophen (Acetaminophen 325 Mg Tablet) 650 mg PO Q6H PRN PRN Reason: Pain, Mild (Pain Scale 1-3) Last Admin: 06/01/21 08:17 Dose: 650 mg Documented by: MAXIMINO Albuterol Sulfate (Albuterol Sulfate 90 Mcg 8 Gm Inhaler) 1 puff INHALE QID PRN PRN Reason: shortness of breath or wheezing Amlodipine Besylate (Amlodipine Besylate 10 Mg Tablet) 10 mg PO DAILY [facility]; Protocol Last Admin: 06/01/21 08:16 Dose: 10 mg Documented by: MAXIMINO Aspirin (Aspirin Enteric Coated 81 Mg Tablet.Dr) 81 mg PO DAILY [facility] Last Admin: 06/01/21 08:18 Dose: 81 mg Documented by: MAXIMINO Clonazepam (Clonazepam 1 Mg Tablet) 1 mg PO DAILY PRN PRN Reason: anxiety Dextrose (Dextrose 50 % 25 Gm/50 Ml Syringe) 25 gm IVPUSH Q15M PRN; Protocol PRN Reason: per Hypoglycemia Standing Ord. Docusate Sodium (Docusate Sodium 100 Mg Capsule) 100 mg PO DAILY PRN PRN Reason: Constipation Enoxaparin Sodium (Enoxaparin Sodium 40 Mg/0.4 Ml Syringe) 40 mg SUBCUT Q24H [facility] Last Admin: 06/01/21 05:24 Dose: 40 mg Documented by: DIANA Furosemide (Furosemide 40 Mg/4 Ml Vial) 40 mg IVPUSH BID@0900,1800 [facility]; Protocol Last Admin: 06/01/21 08:19 Dose: 40 mg Documented by: MAXIMINO Glucose (Glucose Gel 15 Gm Gel..Gram.) 15 gm PO Q15M PRN; Protocol PRN Reason: per Hypoglycemia Standing Ord. Hydralazine HCl (Hydralazine Hcl 20 Mg/Ml Vial) 5 mg IVPUSH Q6H PRN; Protocol PRN Reason: SBP >190 Insulin Human Lispro (Insulin Lispro 100 Unit/Ml 3 Ml Vial) 0 unit SUBCUT QIDACHS [facility]; Protocol Last Admin: 06/01/21 08:10 Dose: 2 unit Documented by: MAXIMINO Comments: . Lamotrigine (Lamotrigine 100 Mg Tablet) 150 mg PO DAILY [facility] Last Admin: 06/01/21 08:16 Dose: 150 mg Documented by: MAXIMINO Lisinopril (Lisinopril 20 Mg Tablet) 20 mg PO BID [facility]; Protocol Last Admin: 06/01/21 08:15 Dose: 20 mg Documented by: MAXIMINO Nicotine (Nicotine 14 Mg Patch.Td24) 14 mg TRANSDERMA DAILY [facility] Last Admin: 06/01/21 10:10 Dose: 14 mg Documented by: MAXIMINO Non-Formulary Medication (Dapagliflozin-Metformin [Xigduo Xr]) 1 tab PO DAILY [facility] Omeprazole (Omeprazole 20 Mg Capsule.Dr) 20 mg PO DAILY@0630 [facility] Last Admin: 06/01/21 05:24 Dose: 20 mg Documented by: DIANA Ondansetron HCl (Ondansetron Hcl 4 Mg/2 Ml Vial) 4 mg IVPUSH Q8H PRN PRN Reason: Nausea and Vomiting Last Admin: 06/01/21 10:22 Dose: 4 mg Documented by: MORENO Oxycodone HCl (Oxycodone Hcl Immed Release 5 Mg Tablet) 10 mg PO Q6H PRN PRN Reason: Pain, Moderate (Pain Scale 4-6 Last Admin: 06/01/21 05:24 Dose: 10 mg Documented by: DIANA Sodium Chloride (0.9 % Sodium Chloride Flush 3 Ml Syringe) [facility] Last Admin: 06/01/21 09:23 Dose: 3 ml Documented by: MAXIMINO Spironolactone (Spironolactone 25 Mg Tablet) 50 mg PO DAILY [facility]; Protocol Last Admin: 06/01/21 09:22 Dose: 50 mg Documented by: MAXIMINO Labs CBC & Chem 7: 06/01/21 06:01 06/01/21 06:01 Labs: Laboratory Results - last 24 hr 05/31/21 05/31/21 05/31/21 14:24 18:46 22:39 MCV MCH MCHC RDW Plt Count MPV Immature Gran % (Auto) Neut % (Auto) Lymph % (Auto) [place] % (Auto) Eos % (Auto) Baso % (Auto) Lymph # (Auto) [place] # (Auto) Eos # (Auto) Baso # (Auto) Abs Immat Gran (auto) Absolute Neuts (auto) Absolute Nucleated RBC Nucleated RBC % (auto) Anion Gap Estim Creat Clear Calc Estimated GFR POC Glucose 202 H 313 H 277 H Fasting Glucose Calcium Total Bilirubin AST ALT Alkaline Phosphatase Total Protein Albumin 06/01/21 06/01/21 06/01/21 06:01 06:01 07:25 MCV 94.8 MCH 32.3 MCHC 34.1 RDW 17.2 H Plt Count 346 MPV 9.7 Immature Gran % (Auto) 0.4 Neut % (Auto) 77.1 H Lymph % (Auto) 14.7 L [place] % (Auto) 6.4 Eos % (Auto) 1.2 Baso % (Auto) 0.2 Lymph # (Auto) 1.5 [place] # (Auto) 0.7 Eos # (Auto) 0.1 Baso # (Auto) 0.0 Abs Immat Gran (auto) 0.04 H Absolute Neuts (auto) 7.9 Absolute Nucleated RBC 0.000 Nucleated RBC % (auto) 0.0 Anion Gap 13 Estim Creat Clear Calc 60.4 Estimated GFR 42 POC Glucose 195 H Fasting Glucose 228 H Calcium 9.0 Total Bilirubin 1.4 H AST 17 D ALT 26 Alkaline Phosphatase 106 D Total Protein 5.1 L Albumin 3.1 L 06/01/21 11:38 MCV MCH MCHC RDW Plt Count MPV Immature Gran % (Auto) Neut % (Auto) Lymph % (Auto) [place] % (Auto) Eos % (Auto) Baso % (Auto) Lymph # (Auto) [place] # (Auto) Eos # (Auto) Baso # (Auto) Abs Immat Gran (auto) Absolute Neuts (auto) Absolute Nucleated RBC Nucleated RBC % (auto) Anion Gap Estim Creat Clear Calc Estimated GFR POC Glucose 171 H Fasting Glucose Calcium Total Bilirubin AST ALT Alkaline Phosphatase Total Protein Albumin Assessment and Plan (1) Uncontrolled hypertension: Status: Acute (2) CKD (chronic kidney disease): Status: Acute Plan This is a 41-year-old female with poorly-controlled hypertension as well as CHF who presents to the hospital with shortness of breath and hypertensive urgency 1. Acute CHF exacerbation - likely secondary to hypertensive crisis - Lasixix 40 IV b.i.d., low-sodium diet, strict I&O - echo done EF 43% 2.Hypertensive urgency - as per Renal .... echo acceptable...l switch to diltiazem; DC amlodipine 3. CKD - worsening per Renal - adjust therapies as indicated - may need renal Bx 4.DMII - low-dose sliding scale insulin, diabetic diet -adjust as indicated DVT prophylaxis Lovenox Quality Stroke Does the patient have a stroke diagnosis?: No VTE Prior VTE?: No VTE Risk Level:: Medical - moderate - high VTE Device Contraindication: Treatment Not Indicated VTE Drug Contraindication: N/A - Med Ordered
--- NOTE | 2021-06-01 13:05 | MHC.CM.PN ---
PT REPORTS SHE LIVES WITH HER THREE KIDS AND EX-BOYFRIEND SHE REPORTS SHE IS FULLY INDEPENDENT, HAS NO DME AND NO SERVICES PT CONFIRMS HER PCP IS CHERRY CRANE PT COMPLETED A HCP TODAY NAMING HER MOTHER, BOO MULLER ([phone]) HER AGENT PT IS NOT COVID VACCINATED IMM DELIVERED CURRENT DC PLAN IS HOME WITH NO SERVICES PT TO SELF-ARRANGE TRANSPORT
--- NOTE | 2021-06-01 14:16 | P.PNNP_ITS ---
Subjective Subjective Date of Service: 06/01/21 Interval history: Seen today. Feels better. Looking forward to going home tomorrow Physical Exam Vital Signs: Vital Signs: Last Vital Signs Temp 97.3 F 06/01/21 11:36 Pulse 73 06/01/21 11:36 Resp 18 06/01/21 11:36 BP 156/95 H 06/01/21 11:36 Pulse Ox 94 06/01/21 11:36 BMI result Body Mass Index 29.4 Const: General: comfortable Orientation/consciousness: patient oriented x3 HENMT: Head: Yes normocephalic Eyes: EOM: EOMs intact bilaterally Resp: Auscultation: diminished lung sounds Cardio: Rate: regular rate GI: Palpation (GI): Soft to palpation Neuro: General: patient oriented x3 and moves all extremities Objective Data Labs CBC & Chem 7: 06/01/21 06:01 06/01/21 06:01 Labs: Laboratory Results - last 24 hr 05/31/21 05/31/21 05/31/21 14:24 18:46 22:39 WBC RBC Hgb Hct MCV MCH MCHC RDW Plt Count MPV Immature Gran % (Auto) Neut % (Auto) Lymph % (Auto) [place] % (Auto) Eos % (Auto) Baso % (Auto) Lymph # (Auto) [place] # (Auto) Eos # (Auto) Baso # (Auto) Abs Immat Gran (auto) Absolute Neuts (auto) Absolute Nucleated RBC Nucleated RBC % (auto) Sodium Potassium Chloride Carbon Dioxide Anion Gap BUN Creatinine Estim Creat Clear Calc Estimated GFR POC Glucose 202 H 313 H 277 H Fasting Glucose Calcium Total Bilirubin AST ALT Alkaline Phosphatase Total Protein Albumin 06/01/21 06/01/21 06/01/21 06:01 06:01 07:25 WBC 10.2 RBC 3.68 L Hgb 11.9 L Hct 34.9 L MCV 94.8 MCH 32.3 MCHC 34.1 RDW 17.2 H Plt Count 346 MPV 9.7 Immature Gran % (Auto) 0.4 Neut % (Auto) 77.1 H Lymph % (Auto) 14.7 L [place] % (Auto) 6.4 Eos % (Auto) 1.2 Baso % (Auto) 0.2 Lymph # (Auto) 1.5 [place] # (Auto) 0.7 Eos # (Auto) 0.1 Baso # (Auto) 0.0 Abs Immat Gran (auto) 0.04 H Absolute Neuts (auto) 7.9 Absolute Nucleated RBC 0.000 Nucleated RBC % (auto) 0.0 Sodium 138 Potassium 3.2 L Chloride 98 Carbon Dioxide 30 H Anion Gap 13 BUN 19 H Creatinine 1.40 Estim Creat Clear Calc 60.4 Estimated GFR 42 POC Glucose 195 H Fasting Glucose 228 H Calcium 9.0 Total Bilirubin 1.4 H AST 17 D ALT 26 Alkaline Phosphatase 106 D Total Protein 5.1 L Albumin 3.1 L 06/01/21 11:38 WBC RBC Hgb Hct MCV MCH MCHC RDW Plt Count MPV Immature Gran % (Auto) Neut % (Auto) Lymph % (Auto) [place] % (Auto) Eos % (Auto) Baso % (Auto) Lymph # (Auto) [place] # (Auto) Eos # (Auto) Baso # (Auto) Abs Immat Gran (auto) Absolute Neuts (auto) Absolute Nucleated RBC Nucleated RBC % (auto) Sodium Potassium Chloride Carbon Dioxide Anion Gap BUN Creatinine Estim Creat Clear Calc Estimated GFR POC Glucose 171 H Fasting Glucose Calcium Total Bilirubin AST ALT Alkaline Phosphatase Total Protein Albumin Procedures Date of Service Date of Service: 06/01/21 Assessment & Plan Assessment and plan (1) Acute kidney injury superimposed on CKD: Status: Acute Assessment and Plan: Uncontrolled hypertension and worsening renal function( Likely Diabetic Nephropathy but needs to R/O GN given her H/O auto immune disease) Hypervolemic - Was started on furosemide and Spironolactone; On ACEI U/A- No significant RBC; No proteinuria now; Likely will need renal biopsy as outpt when her clinical status is optimized If there is no cardiac CI, would switch Amlodipine to Diltiazem ( Diltiazem has anti proteinuric effects) Labs AM. Shall follow up closely Time Spent With Patient Time: Total time spent is greater than 50% in coordination of care (as documented) at patient's floor/unit and/or counseling patient: Progress Note: Quality Stroke Does the patient have a stroke diagnosis?: No
[2021-06-01 16:10] LABS: Glucose, Whole Blood 289 mg/dL (60-115)
[2021-06-01 19:56] LABS: Glucose, Whole Blood 166 mg/dL (60-115)
--- NOTE | 2021-06-01 22:30 | PC.NURSE ---
P BP elevaed 171/104 pulse 85 I scheduled lisinopril was administered E will monitor,patient has no complaints
[2021-06-02] VITALS (10 sets, daily range): BP systolic 137–196; BP diastolic 84–122; PULSE 88–91; RESP 14–18; TEMP 36.3–36.6; O2SAT 96–100
[2021-06-02] MEDS: 0.9 % Sodium Chloride Flush 3 ML SYRINGE IVFLUSH ×2 (01:04→08:45)
[2021-06-02] MEDS: oxyCODONE HCl Immed Release 5 MG TABLET 10 MG PO ×2 (01:29→08:51)
[2021-06-02] MEDS: hydrALAZINE HCl 20 MG/ML VIAL 5 MG IVPUSH (04:38)
[2021-06-02] MEDS: Acetaminophen 325 MG TABLET 650 MG PO (04:43)
[2021-06-02 06:18] LABS: Basophils Percent Auto 0.3 % (0-2); Eosinophils Absolute Auto 0.2 X10*3/uL (0.0-0.4); Eosinophils Percent Auto 1.5 % (0-4); Hemoglobin 12.8 g/dl (12.0-16.0); Imm Gran Abs Auto 0.02 X10*3/uL (0.00-0.03); Imm Gran Pct Auto 0.2 % (0.0-0.4); Lymphocytes Absolute Auto 1.7 X10*3/uL (1.2-4.9); Lymphocytes Percent Auto 16.7 % (20-40); MANUAL DIFF FLAG NO; Mean Corpuscular HGB Conc 34.6 g/dl (31.0-35.0); Mean Corpuscular Hemoglobin 32.6 pg (27.0-33.0); Mean Corpuscular Volume 94.1 fL (80.0-98.0); Mean Platelet Volume 9.1 fL (9.4-12.3); Monocytes Absolute Auto 0.7 X10*3/uL (0.1-1.2); Monocytes Percent Auto 6.8 % (2-11); Neutrophils Absolute Auto 7.6 x10*3/uL (2.0-8.3); Neutrophils Percent Auto 74.5 % (45-73); Platelet Count 365 X10*3/uL (160-400); Red Blood Count 3.93 X10*6/uL (4.20-5.50); Red Cell Distribution Width 17.1 % (11.0-16.0); White Blood Count 10.2 X10*3/uL (4.8-10.8)
[2021-06-02] MEDS: Omeprazole 20 MG CAPSULE.DR PO (06:33)
[2021-06-02] MEDS: Enoxaparin Sodium 40 MG/0.4 ML SYRINGE SUBCUT (06:33)
[2021-06-02 06:38] LABS: Alanine Aminotransferase 22 U/L (0-31); Albumin Level 3.3 g/dL (3.5-5.0); Alkaline Phosphatase 97 U/L (39-117); Anion Gap 12 (12-20); Aspartate Amino Transferase 15 U/L (5-31); Bilirubin Total 1.4 mg/dL (0.0-1.0); Blood Urea Nitrogen 18 mg/dL (9-16); Calcium 9.2 mg/dL (8.4-10.2); Carbon Dioxide 31 mmol/L (22-29); Chloride 97 mmol/L (96-108); Creatinine Clr Calc Pharmacy 54.2; Estimated Glomerular Filt Rate 37; Glucose Fasting 222 mg/dL (60-99); Potassium 3.9 mmol/L (3.3-5.1); Sodium 136 mmol/L (135-145); Total Protein 5.5 g/dL (6.5-8.0)
[2021-06-02 07:50] LABS: Glucose, Whole Blood 181 mg/dL (60-115)
[2021-06-02] MEDS: Insulin Lispro 100 UNIT/ML 3 ML VIAL SUBCUT ×2 (08:41→11:43)
[2021-06-02] MEDS: Aspirin Enteric Coated 81 MG TABLET.DR PO (08:43)
[2021-06-02] MEDS: amLODIPine Besylate 10 MG TABLET PO (08:44)
[2021-06-02] MEDS: Spironolactone 25 MG TABLET 50 MG PO (08:44)
[2021-06-02] MEDS: lisinopriL 20 MG TABLET PO (08:44)
[2021-06-02] MEDS: lamoTRIgine 100 MG TABLET 150 MG PO (08:45)
[2021-06-02] MEDS: Nicotine 14 MG PATCH.TD24 TRANSDERMA (08:45)
[2021-06-02] MEDS: Furosemide 40 MG/4 ML VIAL IVPUSH (08:45)
--- NOTE | 2021-06-02 09:58 | PM.PNNEP ---
Subjective Subjective Date of Service: 06/02/21 Interval history: Seen today. Feels better. Looking forward to going home today Physical Exam Vital Signs: Vital Signs: Last Vital Signs Temp 97.4 F 06/02/21 07:39 Pulse 88 06/02/21 07:39 Resp 18 06/02/21 07:39 BP 172/93 H 06/02/21 07:39 Pulse Ox 100 06/02/21 07:39 BMI result Body Mass Index 29.4 Const: General: comfortable Orientation/consciousness: patient oriented x3 Eyes: EOM: EOMs intact bilaterally Neck: Neck: Yes supple Resp: Auscultation: diminished lung sounds Cardio: Rate: regular rate GI: Palpation (GI): Soft to palpation Neuro: General: patient oriented x3 and moves all extremities Objective Data Labs CBC & Chem 7: 06/02/21 06:02 06/02/21 06:02 Labs: Laboratory Results - last 24 hr 06/01/21 06/01/21 06/01/21 11:38 15:56 19:49 WBC RBC Hgb Hct MCV MCH MCHC RDW Plt Count MPV Immature Gran % (Auto) Neut % (Auto) Lymph % (Auto) [place] % (Auto) Eos % (Auto) Baso % (Auto) Lymph # (Auto) [place] # (Auto) Eos # (Auto) Baso # (Auto) Abs Immat Gran (auto) Absolute Neuts (auto) Absolute Nucleated RBC Nucleated RBC % (auto) Sodium Potassium Chloride Carbon Dioxide Anion Gap BUN Creatinine Estim Creat Clear Calc Estimated GFR POC Glucose 171 H 289 H 166 H Fasting Glucose Calcium Total Bilirubin AST ALT Alkaline Phosphatase Total Protein Albumin 06/02/21 06/02/21 06/02/21 06:02 06:02 07:43 WBC 10.2 RBC 3.93 L Hgb 12.8 Hct 37.0 MCV 94.1 MCH 32.6 MCHC 34.6 RDW 17.1 H Plt Count 365 MPV 9.1 L Immature Gran % (Auto) 0.2 Neut % (Auto) 74.5 H Lymph % (Auto) 16.7 L [place] % (Auto) 6.8 Eos % (Auto) 1.5 Baso % (Auto) 0.3 Lymph # (Auto) 1.7 [place] # (Auto) 0.7 Eos # (Auto) 0.2 Baso # (Auto) 0.0 Abs Immat Gran (auto) 0.02 Absolute Neuts (auto) 7.6 Absolute Nucleated RBC 0.000 Nucleated RBC % (auto) 0.0 Sodium 136 Potassium 3.9 D Chloride 97 Carbon Dioxide 31 H Anion Gap 12 BUN 18 H Creatinine 1.56 H Estim Creat Clear Calc 54.2 Estimated GFR 37 POC Glucose 181 H Fasting Glucose 222 H Calcium 9.2 Total Bilirubin 1.4 H AST 15 ALT 22 Alkaline Phosphatase 97 Total Protein 5.5 L Albumin 3.3 L Procedures Date of Service Date of Service: 06/02/21 Assessment & Plan Assessment and plan (1) Acute kidney injury superimposed on CKD: Status: Acute Assessment and Plan: Uncontrolled hypertension and worsening renal function( Likely Diabetic Nephropathy but needs to R/O GN given her H/O auto immune disease) Hypervolemic - Was started on furosemide and Spironolactone; On ACEI; Could switch lasix to PO Chlorthalidone 25 mg daily U/A- No significant RBC; No proteinuria now; Likely will need renal biopsy as outpt when her clinical status is optimized Can switch Amlodipine to Diltiazem ( Diltiazem has anti proteinuric effects); Shall arrange follow up with Dr Bertrand in 2 weeks Time Spent With Patient Time: Total time spent is greater than 50% in coordination of care (as documented) at patient's floor/unit and/or counseling patient: Progress Note: Quality Stroke Does the patient have a stroke diagnosis?: No
--- NOTE | 2021-06-02 11:01 | P.PNCA_ITS ---
Subjective Subjective Date of Service: 06/02/21 Interval history: Feels better. Improved shortness of breath. Review of Systems Review of Systems Yes all other systems are reviewed and are negative Cardiovascular: Reports as per HPI, Reports no additional cardiovascular complaints, Denies acrocyanosis, Denies cool extremities, Denies chest pain, Denies diaphoresis, Denies syncope, Denies claudication, Denies leg edema, Denies lightheadedness, Denies palpitations and Reports dyspnea Respiratory: Reports dyspnea Denies syncope Endocrine: Denies palpitations Physical Exam Vital Signs: Last Vital Signs Temp 97.4 F 06/02/21 07:39 Pulse 88 06/02/21 07:39 Resp 18 06/02/21 07:39 BP 172/93 H 06/02/21 07:39 Pulse Ox 100 06/02/21 07:39 BMI result Body Mass Index 29.4 Const General: comfortable HENMT Other: Unremarkable Neck Neck: Yes normal visual inspection Chest Chest palpation & inspection: normal inspection of the chest Resp Auscultation: clear to auscultation bilaterally Cardio Palpation: normal PMI Heart sounds: S1 normal heart sound present, S2 normal heart sound present, no gallops, no murmurs and no rubs GI Palpation (GI): Soft to palpation Back/Spine/Pelvis Other: unremarkable Skin Lesions: other Neuro General: other Extrem General: Yes other Psych Mental Status: other Objective Labs and Meds Result diagrams: 06/02/21 06:02 06/02/21 06:02 Lab results: Laboratory Results - last 24 hr 06/01/21 06/01/21 06/01/21 11:38 15:56 19:49 WBC RBC Hgb Hct MCV MCH MCHC RDW Plt Count MPV Immature Gran % (Auto) Neut % (Auto) Lymph % (Auto) [place] % (Auto) Eos % (Auto) Baso % (Auto) Lymph # (Auto) [place] # (Auto) Eos # (Auto) Baso # (Auto) Abs Immat Gran (auto) Absolute Neuts (auto) Absolute Nucleated RBC Nucleated RBC % (auto) Sodium Potassium Chloride Carbon Dioxide Anion Gap BUN Creatinine Estim Creat Clear Calc Estimated GFR POC Glucose 171 H 289 H 166 H Fasting Glucose Calcium Total Bilirubin AST ALT Alkaline Phosphatase Total Protein Albumin 06/02/21 06/02/21 06/02/21 06:02 06:02 07:43 WBC 10.2 RBC 3.93 L Hgb 12.8 Hct 37.0 MCV 94.1 MCH 32.6 MCHC 34.6 RDW 17.1 H Plt Count 365 MPV 9.1 L Immature Gran % (Auto) 0.2 Neut % (Auto) 74.5 H Lymph % (Auto) 16.7 L [place] % (Auto) 6.8 Eos % (Auto) 1.5 Baso % (Auto) 0.3 Lymph # (Auto) 1.7 [place] # (Auto) 0.7 Eos # (Auto) 0.2 Baso # (Auto) 0.0 Abs Immat Gran (auto) 0.02 Absolute Neuts (auto) 7.6 Absolute Nucleated RBC 0.000 Nucleated RBC % (auto) 0.0 Sodium 136 Potassium 3.9 D Chloride 97 Carbon Dioxide 31 H Anion Gap 12 BUN 18 H Creatinine 1.56 H Estim Creat Clear Calc 54.2 Estimated GFR 37 POC Glucose 181 H Fasting Glucose 222 H Calcium 9.2 Total Bilirubin 1.4 H AST 15 ALT 22 Alkaline Phosphatase 97 Total Protein 5.5 L Albumin 3.3 L Progress Note: A&P Assessment and plan (1) Hypertensive emergency: Status: Acute (2) Acute diastolic (congestive) heart failure: Status: Acute Plan Clinically, she seems better. Blood pressures improved but still quite high. On telemetry, slight Wenckebach type pattern at night; during the day, 1 episode of NSVT for 12 beats. Monomorphic. Echocardiogram with LVEF of 43%. Myocardial perfusion imaging study last year showed normal perfusion. Agree with Renal recommendations for blood pressure. Consider hydralazine that was previously in her list but not currently on. With regard diltiazem use for proteinuria, could consider but she has nocturnal bradycardia and hence may not be able to use a high dose. Upon discharge, follow-up in our office. Fall Risk Details Current Medications: Current Medications Acetaminophen (Acetaminophen 325 Mg Tablet) 650 mg PO Q6H PRN PRN Reason: Pain, Mild (Pain Scale 1-3) Last Admin: 06/02/21 04:43 Dose: 650 mg Documented by: Albuterol Sulfate (Albuterol Sulfate 90 Mcg 8 Gm Inhaler) 1 puff INHALE QID PRN PRN Reason: shortness of breath or wheezing Amlodipine Besylate (Amlodipine Besylate 10 Mg Tablet) 10 mg PO DAILY [facility]; Protocol Last Admin: 06/02/21 08:44 Dose: 10 mg Documented by: Aspirin (Aspirin Enteric Coated 81 Mg Tablet.) 81 mg PO DAILY [facility] Last Admin: 06/02/21 08:43 Dose: 81 mg Documented by: Clonazepam (Clonazepam 1 Mg Tablet) 1 mg PO DAILY PRN PRN Reason: anxiety Dextrose (Dextrose 50 % 25 Gm/50 Ml Syringe) 25 gm IVPUSH Q15M PRN; Protocol PRN Reason: per Hypoglycemia Standing Ord. Docusate Sodium (Docusate Sodium 100 Mg Capsule) 100 mg PO DAILY PRN PRN Reason: Constipation Enoxaparin Sodium (Enoxaparin Sodium 40 Mg/0.4 Ml Syringe) 40 mg SUBCUT Q24H [facility] Last Admin: 06/02/21 06:33 Dose: 40 mg Documented by: Furosemide (Furosemide 40 Mg/4 Ml Vial) 40 mg IVPUSH BID@0900,1800 [facility]; Protocol Last Admin: 06/02/21 08:45 Dose: 40 mg Documented by: Glucose (Glucose Gel 15 Gm Gel..Gram.) 15 gm PO Q15M PRN; Protocol PRN Reason: per Hypoglycemia Standing Ord. Hydralazine HCl (Hydralazine Hcl 20 Mg/Ml Vial) 5 mg IVPUSH Q6H PRN; Protocol PRN Reason: SBP >190 Last Admin: 06/02/21 04:38 Dose: 5 mg Documented by: Insulin Human Lispro (Insulin Lispro 100 Unit/Ml 3 Ml Vial) 0 unit SUBCUT QIDACHS [facility]; Protocol Last Admin: 06/02/21 08:41 Dose: 2 unit Documented by: Lamotrigine (Lamotrigine 100 Mg Tablet) 150 mg PO DAILY [facility] Last Admin: 06/02/21 08:45 Dose: 150 mg Documented by: Lisinopril (Lisinopril 20 Mg Tablet) 20 mg PO BID [facility]; Protocol Last Admin: 06/02/21 08:44 Dose: 20 mg Documented by: Nicotine (Nicotine 14 Mg Patch.Td24) 14 mg TRANSDERMA DAILY [facility] Last Admin: 06/02/21 08:45 Dose: 14 mg Documented by: Non-Formulary Medication (Dapagliflozin-Metformin [Xigduo Xr]) 1 tab PO DAILY [facility] Omeprazole (Omeprazole 20 Mg Capsule.) 20 mg PO DAILY@0630 [facility] Last Admin: 06/02/21 06:33 Dose: 20 mg Documented by: Ondansetron HCl (Ondansetron Hcl 4 Mg/2 Ml Vial) 4 mg IVPUSH Q8H PRN PRN Reason: Nausea and Vomiting Last Admin: 06/01/21 10:22 Dose: 4 mg Documented by: Oxycodone HCl (Oxycodone Hcl Immed Release 5 Mg Tablet) 10 mg PO Q6H PRN PRN Reason: Pain, Moderate (Pain Scale 4-6 Last Admin: 06/02/21 08:51 Dose: 10 mg Documented by: Sodium Chloride (0.9 % Sodium Chloride Flush 3 Ml Syringe) [facility] Last Admin: 06/02/21 08:45 Dose: 3 ml Documented by: Spironolactone (Spironolactone 25 Mg Tablet) 50 mg PO DAILY [facility]; Protocol Last Admin: 06/02/21 08:44 Dose: 50 mg Documented by: Time Spent With Patient Time: Total time spent is greater than 50% in coordination of care (as documented) at patient's floor/unit and/or counseling patient: Time with patient: less than 15 minutes Progress Note: Quality Stroke Does the patient have a stroke diagnosis?: No Procedures Date of Service Date of Service: 06/02/21
--- NOTE | 2021-06-02 11:11 | P.DS_ITS ---
DS: Providers Provider Date of Service: 06/02/21 Date of admission: 05/31/21 05:31 Date of discharge: 06/02/21 Primary care physician: DESEAN Benitez Consults: 05/31/21 05:29 Consult to Cardiology Routine Consulting Provider: Nathaniel Garcia Reason for consultation: CHF Has provider been notified: No 05/31/21 05:40 Consult to Nephrology Routine Consulting Provider: [facility] Reason for consultation: hypertensive crisis,on 4 meds-reports compliance DS: Diagnosis Discharge Diagnosis (1) Hypertensive emergency: Status: Acute (2) Acute diastolic (congestive) heart failure: Status: Acute DS: Summary Hospital Course Hospital Course: 41-year-old female with poorly-controlled hypertension, PTSD, Sjogren's disease, CKD, diabetes, CHF, bipolar, history of second-degree AV block, among other medical issues? presents to the hospital with? shortness of breath.?? She has had orthopnea,? PND, no lower extremity edema, fever or chills.? Reports compliance with her medications but continues to have high blood pressure.?She reports compliance with all her for medications for her blood pressure.? Patient denies any abdominal pain nausea or vomiting, no diarrhea, urinary symptoms and no lower extremity edema.?In the ER her blood pressure was 240/160,? BUN of 27, creatinine of 1.6 with a baseline around 1 0.09 in January of 2021 Hospital Course admitted, given IV Lasix along with multiple doses of hydralazine and labetalol IV. Seen by [facility]; [facility] notes reviewed. Meds adjusted and patient continued to do well. On the day discharge she is medically acceptable for same and will follow up with [facility] as an outpatient.Apart for med changes, hospital stay was unremarkable Time Spent with Patient Time attestation: Total time spent providing and/or coordinating discharge services: Discharge coordination time: Greater than 30 minutes Quality: Stroke Does the patient have a stroke diagnosis?: No Physical Exam Vital Signs: Vital Signs: Last Vital Signs Temp 97.4 F 06/02/21 07:39 Pulse 88 06/02/21 07:39 Resp 18 06/02/21 07:39 BP 172/93 H 06/02/21 07:39 Pulse Ox 100 06/02/21 07:39 BMI result Body Mass Index 29.4 Const: Other: awake alert oriented x3 no acute distress Resp: Other: clear to auscultation bilaterally no rales rhonchi wheezes Cardio: Other: no S4; positive S1 /S2; no S3 murmurs rubs or gallops GI: Other: soft nontender nondistended with normoactive bowel sounds Extrem: Other: no edema bilaterally DS: Data Data Completed and Pending Completed studies during hospitalization [Text1]: Procedures Drainage of Left Knee Joint, Percutaneous Approach (01/07/21) Labs on day of discharge: Laboratory Results - last 24 hr 06/01/21 06/01/21 06/01/21 11:38 15:56 19:49 WBC RBC Hgb Hct MCV MCH MCHC RDW Plt Count MPV Immature Gran % (Auto) Neut % (Auto) Lymph % (Auto) [place] % (Auto) Eos % (Auto) Baso % (Auto) Lymph # (Auto) [place] # (Auto) Eos # (Auto) Baso # (Auto) Abs Immat Gran (auto) Absolute Neuts (auto) Absolute Nucleated RBC Nucleated RBC % (auto) Sodium Potassium Chloride Carbon Dioxide Anion Gap BUN Creatinine Estim Creat Clear Calc Estimated GFR POC Glucose 171 H 289 H 166 H Fasting Glucose Calcium Total Bilirubin AST ALT Alkaline Phosphatase Total Protein Albumin 06/02/21 06/02/21 06/02/21 06:02 06:02 07:43 WBC 10.2 RBC 3.93 L Hgb 12.8 Hct 37.0 MCV 94.1 MCH 32.6 MCHC 34.6 RDW 17.1 H Plt Count 365 MPV 9.1 L Immature Gran % (Auto) 0.2 Neut % (Auto) 74.5 H Lymph % (Auto) 16.7 L [place] % (Auto) 6.8 Eos % (Auto) 1.5 Baso % (Auto) 0.3 Lymph # (Auto) 1.7 [place] # (Auto) 0.7 Eos # (Auto) 0.2 Baso # (Auto) 0.0 Abs Immat Gran (auto) 0.02 Absolute Neuts (auto) 7.6 Absolute Nucleated RBC 0.000 Nucleated RBC % (auto) 0.0 Sodium 136 Potassium 3.9 D Chloride 97 Carbon Dioxide 31 H Anion Gap 12 BUN 18 H Creatinine 1.56 H Estim Creat Clear Calc 54.2 Estimated GFR 37 POC Glucose 181 H Fasting Glucose 222 H Calcium 9.2 Total Bilirubin 1.4 H AST 15 ALT 22 Alkaline Phosphatase 97 Total Protein 5.5 L Albumin 3.3 L Discharge Plan Discharge Patient Disposition: Home, Self-Care Discharge Diagnosis: Hypertensive urgency Referrals: Mauricio Nolasco, [employer] [Primary Care Provider] - 1 Week Discharge Medications: New nicotine 14 mg/24 hr Patch 24 Hour 14 mg transdermal DAILY 30 Days 0RF spironolactone 25 mg Tablet 50 mg PO DAILY Qty: 30 0RF Protocol: Hold for SBP< HOLD for SBP < : 90 oxycodone 5 mg Tablet 10 mg PO Q6H PRN (Reason: Pain, Moderate (Pain Scale 4-6) Qty: 30 0RF diltiazem HCl [Cardizem CD] 180 mg capsule,extended release 24hr 180 mg PO DAILY Qty: 30 0RF chlorthalidone 25 mg tablet 25 mg PO DAILY Qty: 30 0RF Continued lisinopril 10 mg tablet 20 mg PO BID Qty: 360 0RF Hold Instructions: Resume on 01/21/21. Hold lisinopril until repeat BMP out patiently with PCP and follow-up with Nephrology. albuterol sulfate 90 mcg/actuation HFA aerosol inhaler 1 inh inhalation QID PRN (Reason: shortness of breath or wheezing) 30 Days Qty: 8.5 0RF Xigduo XR 10-1,000 mg tablet, IR - ER, biphasic 24hr 1 tab PO DAILY 0RF aspirin 81 mg Tablet,Delayed Release (Dr/Ec) 81 mg PO DAILY 0RF lamotrigine 100 mg tablet 150 mg PO DAILY 0RF Rx Instructions: take 1.5 tablets daily clonazepam 1 mg tablet 1 mg PO DAILY PRN (Reason: anxiety) 0RF omeprazole 20 mg capsule,delayed release(DR/EC) 20 mg PO DAILY Qty: 90 1RF Discontinued amlodipine 10 mg tablet 10 mg PO DAILY 0RF Discharge Orders: Discharge Order (Routine); Ordered 06/02/21 Ordered By: Noe Suarez Diet: advance to usual diet Activity on Discharge: As tolerated Stand Alone Forms: Patient Portal Discharge page Care Plan Goals: Resume all previous home meds with the addition of Cardizem instead of amlodipine; chlorthalidone and Aldactone Health Concerns: continue to stain from tobacco Plan of Treatment: follow-up with Dr. Yates as scheduled Assessment: as per DC summary
--- NOTE | 2021-06-02 11:15 | MHC.CM.PN ---
PT TO DC HOME TODAY WITH NO SERVICES PT TO ARRANGE TRANSPORTATION
[2021-06-02 11:46] LABS: Glucose, Whole Blood 232 mg/dL (60-115)
[2021-06-03 11:56] LABS: Anti Nuclear Antibody Screen NEGATIVE (NEGATIVE)
[2021-06-03 13:52] LABS: Anti DNA DS Antibody <1 IU/mL; Myeloperoxidase Antibody <1.0 AI; Proteinase 3 PR3 Antibodies <1.0 AI
[2021-06-05 12:46] LABS: Cardiolipin IgG Ab <2.0 GPL-U/mL; Cardiolipin IgM Ab <2.0 MPL-U/mL
[2021-06-05 14:07] LABS: Histone Antibody <1.0 U (<1.0)
== END 2021-06-02 13:21 | disposition home or self-care (01) | DRG 291 ==
LOC: HO.ED 01:46 → HO.EDOVER 05:40 → HO.S3 06-01 01:40
PROVIDERS: Internal Medicine Nephrology; Admitting Provider Internal Medicine; Emergency Provider Emergency Medicine Emergency Medical Services; PCP Nurse Practitioner Family; Visit Provider Hospitalist
DX: I13.0 Hypertensive heart and chronic kidney disease with heart failure and stage 1 through stage 4 chronic kidney disease, or unspecified chronic kidney disease (principal); I50.33 Acute on chronic diastolic (congestive) heart failure; I16.1 Hypertensive emergency; N17.9 Acute kidney failure, unspecified; F17.210 Nicotine dependence, cigarettes, uncomplicated; Z71.6 Tobacco abuse counseling; F43.10 Post-traumatic stress disorder, unspecified; N18.9 Chronic kidney disease, unspecified; E11.22 Type 2 diabetes mellitus with diabetic chronic kidney disease; D72.829 Elevated white blood cell count, unspecified; Z20.822 Contact with and (suspected) exposure to COVID-19; Z88.0 Allergy status to penicillin; Z79.82 Long term (current) use of aspirin; Z79.899 Other long term (current) drug therapy
CPT/HCPCS: 36415; 71045; 78580; 80048; 80053; 80076; 81001; 81003; 82947; 83516; 83880; 84484; 84702; 85025; 86021; 86038; 86039; 86147; 86225; 87635; 93005; 93306; 99285; A9540; J1650; J1940; J2060; J2405

== ENCOUNTER → 2021-06-18 11:17 | Outpatient (BNVA) | payer MEDICARE, MEDICAID, SELFPAY | PROVIDERS: PCP Nurse Practitioner Family; Referring Provider Nurse Practitioner Family; Visit Provider Internal Medicine Cardiovascular Disease | DX: I11.0 Hypertensive heart disease with heart failure (principal); I42.9 Cardiomyopathy, unspecified; I50.9 Heart failure, unspecified | CPT/HCPCS: 99212 ==

== ENCOUNTER → 2021-06-24 06:57 | Outpatient (REF) | payer MEDICARE, MEDICAID, SELFPAY ==
--- NOTE | 2021-06-24 07:18 | HM_ITS ---
* Total monitoring time 3 days. * Underlying rhythm is sinus. Average 92/Min. Range 61 to 131/Min. About 23% the time, rate greater than 100/Min. * No atrial fibrillation or flutter or AV blocks or pauses. * Rare supraventricular ectopy with minimal burden. * No patient events. MTDD
== END ==
LOC: HO.CARD 06:57
PROVIDERS: PCP Nurse Practitioner Family; Visit Provider Internal Medicine Cardiovascular Disease
DX: I44.1 Atrioventricular block, second degree (principal)
CPT/HCPCS: 93242

== ENCOUNTER 2021-07-09 10:36 | Outpatient (REF) | payer MEDICARE, MEDICAID, SELFPAY ==
[2021-07-09 12:02] LABS: Estimated Average Glucose 148 mg/dL; Hemoglobin A1c % 6.8 %
[2021-07-09 12:31] LABS: Alanine Aminotransferase 11 U/L (0-31); Albumin Level 4.2 g/dL (3.5-5.0); Alkaline Phosphatase 98 U/L (39-117); Anion Gap 11 (12-20); Aspartate Amino Transferase 13 U/L (5-31); Bilirubin Total 0.8 mg/dL (0.0-1.0); Blood Urea Nitrogen 25 mg/dL (9-16); Calcium 9.8 mg/dL (8.4-10.2); Carbon Dioxide 24 mmol/L (22-29); Chloride 106 mmol/L (96-108); Cholesterol 178 mg/dL; Estimated Glomerular Filt Rate 38; Glucose Fasting 181 mg/dL (60-99); HDL Cholesterol 50 mg/dL; LDL Cholesterol Calculated 104 mg/dl; Potassium 5.2 mmol/L (3.3-5.1); Sodium 136 mmol/L (135-145); Total Protein 6.8 g/dL (6.5-8.0); Triglycerides 124 mg/dL
[2021-07-09 12:53] LABS: HIV AB/AG Nonreactive (Nonreactive); HIV Num 1 0.06 S/CO (0.00-0.99)
[2021-07-09 12:54] LABS: TSH reflex Free T4 0.29 uIU/mL (0.32-4.0)
[2021-07-09 13:03] LABS: ~HepC Num1 0.07 S/CO (0.00-0.79); ~Hepatitis C Antibody Nonreactive (Nonreactive)
[2021-07-09 13:42] LABS: Free T4 (Free Thyroxine) 1.29 ng/dL (0.71-1.85)
[2021-07-12 13:07] LABS: HCV Log PCR <1.18 NOT DETECTED Log IU/mL (NOT DETECTED); HepC Viral Load <15 NOT DETECTED IU/mL (NOT DETECTED)
== END 2021-07-09 10:37 | disposition home or self-care (01) ==
LOC: HO.LAB 10:36
PROVIDERS: Internal Medicine; Absent Provider Internal Medicine Cardiovascular Disease; PCP Nurse Practitioner Family; Visit Provider Nurse Practitioner Family
DX: R59.0 Localized enlarged lymph nodes (principal); I42.9 Cardiomyopathy, unspecified; I13.0 Hypertensive heart and chronic kidney disease with heart failure and stage 1 through stage 4 chronic kidney disease, or unspecified chronic kidney disease; E11.22 Type 2 diabetes mellitus with diabetic chronic kidney disease; I50.9 Heart failure, unspecified; N18.9 Chronic kidney disease, unspecified; N17.9 Acute kidney failure, unspecified; E78.5 Hyperlipidemia, unspecified
CPT/HCPCS: 36415; 80053; 80061; 81003; 82043; 83036; 84439; 84443; 86803; 87389; 87522

== ENCOUNTER 2021-07-15 12:23 | Outpatient (REF) | payer MEDICARE, MEDICAID, SELFPAY ==
[2021-07-15 12:42] LABS: MANUAL DIFF FLAG NO
[2021-07-15 12:58] LABS: Basophils Absolute Auto 0.1 X10*3/uL (0.0-0.2); Basophils Percent Auto 0.5 % (0-2); Eosinophils Absolute Auto 0.1 X10*3/uL (0.0-0.4); Eosinophils Percent Auto 1.1 % (0-4); Hemoglobin 12.7 g/dl (12.0-16.0); Imm Gran Abs Auto 0.06 X10*3/uL (0.00-0.03); Imm Gran Pct Auto 0.6 % (0.0-0.4); Lymphocytes Absolute Auto 1.4 X10*3/uL (1.2-4.9); Lymphocytes Percent Auto 13.2 % (20-40); Mean Corpuscular HGB Conc 36.3 g/dl (31.0-35.0); Mean Corpuscular Hemoglobin 32.2 pg (27.0-33.0); Mean Corpuscular Volume 88.6 fL (80.0-98.0); Mean Platelet Volume 9.5 fL (9.4-12.3); Monocytes Absolute Auto 0.5 X10*3/uL (0.1-1.2); Neutrophils Absolute Auto 8.2 x10*3/uL (2.0-8.3); Neutrophils Percent Auto 79.6 % (45-73); Platelet Count 336 X10*3/uL (160-400); Red Blood Count 3.95 X10*6/uL (4.20-5.50); Red Cell Distribution Width 13.4 % (11.0-16.0); White Blood Count 10.3 X10*3/uL (4.8-10.8)
[2021-07-15 13:04] LABS: Prothrombin Time 11.5 SEC (9.9-13.0)
[2021-07-15 13:24] LABS: Estimated Average Glucose 146 mg/dL; Hemoglobin A1c % 6.7 %
[2021-07-15 13:43] LABS: TSH reflex Free T4 0.34 uIU/mL (0.32-4.0)
[2021-07-15 13:56] LABS: Anion Gap 17 (12-20); Blood Urea Nitrogen 22 mg/dL (9-16); Calcium 9.3 mg/dL (8.4-10.2); Carbon Dioxide 24 mmol/L (22-29); Chloride 99 mmol/L (96-108); Estimated Glomerular Filt Rate 34; Glucose Random 371 mg/dL (60-115); Potassium 4.6 mmol/L (3.3-5.1); Sodium 135 mmol/L (135-145)
== END 2021-07-15 12:24 | disposition home or self-care (01) ==
LOC: HO.LAB 12:23
PROVIDERS: PCP Nurse Practitioner Family; Visit Provider Internal Medicine Cardiovascular Disease
DX: Z01.812 Encounter for preprocedural laboratory examination (principal); E11.9 Type 2 diabetes mellitus without complications
CPT/HCPCS: 36415; 80048; 83036; 84443; 85025; 85610

== ENCOUNTER 2021-08-18 13:30 | Emergency (ER) | payer MEDICARE, MEDICAID, SELFPAY ==
[2021-07-15 13:20] VITALS: BP 190/110; BP 190/120
[2021-08-12 14:19] VITALS: BP 190/120; BMI 29.0
--- NOTE | ~2021-08-18 | XR_ITS ---
EXAMINATION: XR CHEST CLINICAL INFORMATION: Chest pain COMPARISON: Previous chest x-ray most recent May 2021 TECHNIQUE: Frontal view of the chest was obtained. FINDINGS: The cardiac silhouette is upper normal in size. Hilar and mediastinal contours are unremarkable. The lungs are clear. There is blunting at the left lateral costophrenic angle questionable for tiny left pleural effusion or pleural thickening. There is no right pleural effusion. There is no pneumothorax. There are old left rib fractures. There are degenerative changes of the spine. XR/XR chest 1V IMPRESSION: Upper normal-size cardiac silhouette. Blunting of the left lateral costophrenic angle questionable for tiny left pleural effusion or pleural thickening. Old left rib fractures.
--- NOTE | 2021-08-18 13:45 | ECG_ITS ---
Test Reason : CHEST PAIN Blood Pressure : / mmHG Vent. Rate : 087 BPM Atrial Rate : 087 BPM P-R Int : 156 ms QRS Dur : 086 ms QT Int : 378 ms P-R-T Axes : 062 003 145 degrees QTc Int : 454 ms Normal sinus rhythm Left atrial enlargement Left ventricular hypertrophy with repolarization abnormality ( R in aVL , Sokolow-Abarca , [place] product , Romhilt-Peres ) Abnormal ECG When compared with ECG of 31-MAY-2021 02:38, No significant change was found Referred By: Mariel Gomez Electronically Signed By:MANJEET DUVALL
[2021-08-18 13:48] VITALS: BP 210/120; BP 238/129; PULSE 86; PULSE 88; RESP 22; TEMP 36.4; O2SAT 96; O2SAT 99; BMI 30.7
--- NOTE | 2021-08-18 13:51 | ED_ITS ---
HPI - Chest Pain General Chief Complaint: Chest Pain Stated Complaint: chest pain x 30 mins Time Seen by Provider: 08/18/21 13:44 Source: patient and EMS Mode of arrival: EMS Limitations: no limitations History of Present Illness HPI narrative: 41-year-old female with history of poorly controlled hypertension and congestive heart failure with LVEF 43%, PTSD, CKD, DM, bipolar, history of second-degree AV block came in for evaluation of chest pain. Patient started to have mid chest pain radiating to the right side of her chest, is constant for the past 30 minute, declined association of shortness of breath, pain started while patient is resting, pain is worsening with exertion. No fever or chills. Patient declined recent travel, no lower extremity swelling. Patient was seen by her felt strip finisher who discontinued her Lasix and amlodipine and replaced her on Procardia that the patient did not start yet. Patient confirmed that she is been compliant with her medication. Related Data Home Medications Medication Instructions Recorded Confirmed aspirin 81 mg tablet,delayed 81 mg PO DAILY 09/14/20 08/18/21 release dapagliflozin 10 mg-metformin ER 1 tab PO DAILY 10/25/20 08/18/21 1,000 mg tablet,extended release 24hr (Xigduo XR) clonazepam 1 mg tablet 1 mg PO DAILY PRN 11/05/20 08/18/21 lamotrigine 100 mg tablet 100 mg PO DAILY tab 11/08/20 08/18/21 amlodipine 10 mg tablet 10 mg PO DAILY 06/18/21 08/18/21 furosemide 40 mg tablet 20 mg PO DAILY 06/18/21 08/18/21 lisinopril 10 mg tablet 20 mg PO BID tab 06/18/21 08/18/21 spironolactone 25 mg tablet 100 mg PO DAILY tab 06/18/21 08/18/21 Previous Rx's Medication Instructions Recorded omeprazole 20 mg capsule,delayed 20 mg PO DAILY #90 cap 02/06/21 release carvedilol 6.25 mg tablet (Coreg) 6.25 mg PO BID #60 tab 06/18/21 albuterol sulfate 90 mcg/actuation 1 inh INHALATION QID PRN 30 Days 08/15/21 aerosol inhaler #8.5 g Allergies Allergy/AdvReac Type Severity Reaction Status Date / Time Cephalosporins Allergy Intermediate RASH ALL Verified 07/04/21 18:04 [CEPHALOSPORINS] OVER amoxicillin Allergy Unknown rash Verified 07/04/21 18:04 cefaclor [From Ceclor] Allergy Unknown RASH Verified 07/04/21 18:04 cephalexin Allergy Unknown rash Verified 07/04/21 18:04 cephradine [From VELOSEF] Allergy Unknown RASH Verified 07/04/21 18:04 Penicillins [PENICILLINS] Allergy Unknown RASH Verified 07/04/21 18:04 gabapentin [GABAPENTIN] AdvReac Unknown RESTLESS Verified 07/04/21 18:04 LEGS, Body becomes very uncomfortable Review of Systems Review of Systems: All other systems are reviewed and are negative Constitutional: Reports as per HPI and Reports no additional constitutional complaints Eyes: Reports as per HPI and Reports no additional eye complaints Reports system reviewed and no additional complaints, except as documented Cardiovascular: Reports as per HPI and Reports no additional cardiovascular complaints Respiratory: Reports as per HPI and Reports no additional respiratory complaints Gastrointestinal: Reports as per HPI and Reports no additional gastrointestinal complaints Genitourinary: Reports no additional female genitourinary complaints Musculoskeletal: Reports no additional musculoskeletal complaints Skin/Breast: Reports system reviewed and no additional complaints, except as docu Psychiatric: Reports no additional psychiatric complaints Endocrine: Reports no additional endocrine complaints Hematologic/Lymphatic: Reports no additional hematologic/lymphatic complaints Allergic/Immunologic: Reports no additional allergic/immunologic complaints Reports system reviewed and no additional complaints, except as documented and Reports Abnormal speech present [facility] Past Medical History Medical History Anxiety Bipolar 1 disorder Cardiomyopathy CKD (chronic kidney disease) stage 2, GFR 60-89 ml/min Diabetes mellitus Eclampsia Fatty liver H/O mixed connective tissue disease Heart block AV second degree High cholesterol History of DVT (deep vein thrombosis) HTN (hypertension) Hypersomnia Lupus Migraines Nicotine dependence, cigarettes, uncomplicated (~1999) PTSD (post-traumatic stress disorder) Rheumatoid arthritis Sjogren's disease Surgical History History of bronchoscopy (~11/2020) History of cholecystectomy (~05/2014) History of hysterectomy Family History Family History Other Diabetes HTN (hypertension) Social History Social History Household Members: Family Household Members Other:: children Housing: House Are you a primary career development facilitator to a significant other at home: No Do you presently have visiting nurse or other home services: No Alcohol intake: never Patient Tobacco Use Status: Current everyday Tobacco user Tobacco use type: Cigarette Cigarette Packs Per Day: 1 Cigarettes Per Day: 10.0 Years Smoked: 20 Smoked in Last 30 Days: Yes e-Cigarette/Vaping Use: Never Used Second Hand Smoke Exposure: Yes Substance Use Type: Marijuana Substance Use Frequency: Occasionally Any prior treatment program specific to substance use: No Advance Directives: No Advance Directives Information Provided: No service: No Current occupational status: disabled Physical Exam Vital Signs: Vital Signs: Last Vital Signs Temp 97.5 F 08/18/21 13:48 Pulse 93 08/18/21 15:45 Resp 25 H 08/18/21 15:45 BP 203/118 H 08/18/21 15:45 Pulse Ox 98 08/18/21 15:45 BMI result Body Mass Index 30.7 Appearance: Alert. Oriented X3. No acute distress. Head: Normal external exam. Normocephalic. Atraumatic. No Chase signs noted. No raccoon eyes noted Eyes: PERRLA. EOMI. Conjunctiva and sclera normal. Eyelids normal. ENT: TM's Normal. Pharynx normal. Uvula midline. Moist mucous membranes. No trismus noted. No drooling noted. No muffled voice noted. Neck: Normal inspection. Neck supple. FROM. No adenopathy. Thyroid Normal. No me ningeal signs. No neck mass noted. CVS: Normal heart rate and rhythm. Heart sound normal. No murmurs noted. Pulses normal throughout. Respiratory: No respiratory distress. Painless inspiration. Breath sounds normal. No wheezes/rales/rhonchi noted. Chest nontender. No accessory muscle usage noted or decreased air movement noted. Abdomen: Soft and nontender. Bowel sounds normal in all 4 quadrants. No distention noted. No organomegaly noted. No visible injury noted. Back: No CVA tenderness. Full range of motion noted. Skin: Skin warm and dry. Normal skin color. Normal skin turgor. No ra shes/lesions/lacerations noted. Extremities: No lower extremity edema. Extremities exhibit normal range of motion. Extremities nontender. Neuro: Oriented X 3. Cranial nerve exam: II-XII are grossly intact No motor deficit. No sensory deficit. Reflexes normal. Course Course Course Narrative: Assessment and plan. 41-year-old female with history of complicated poorly controlled hypertension came in with chest pain started 30 minutes before arrival, found to be very hypertensive, patient received amlodipine/Lasix/nitro with relief of her chest pain. EKG showed no acute ischemic changes, 1st troponin is 24.8 (patient also was with elevated troponin) patient is showing slight improvement of blood pressure reading, patient should be admitted to the hospital for further blood pressure control patient fully understand risk of high blood pressure including , strokes, or heart attack. Patient claimed that she cannot stay in the hospital and she will sign against medical advise, case signed out to Dr. Rucker to check patient's lab. MDM - Chest Pain Medical Records Data Attestation: I reviewed the patient's medical records. Lab Data Attestation: I reviewed the patient's lab results. Result diagrams: 08/18/21 14:30 08/18/21 14:30 Labs: Lab Results 08/18/21 08/18/21 08/18/21 Range/Units 14:30 14:30 14:30 WBC 11.6 H (4.8-10.8) X10*3/uL RBC 4.10 L (4.20-5.50) X10*6/uL Hgb 13.6 (12.0-16.0) g/dl Hct 37.1 (37.0-47.0) % MCV 90.5 (80.0-98.0) fL MCH 33.2 H (27.0-33.0) pg MCHC 36.7 H (31.0-35.0) g/dl RDW 14.9 (11.0-16.0) % Plt Count 339 (160-400) X10*3/uL MPV 9.2 L (9.4-12.3) fL Immature Gran % (Auto) 0.3 (0.0-0.4) % Neut % (Auto) 78.1 H (45-73) % Lymph % (Auto) 13.8 L (20-40) % [place] % (Auto) 6.6 (2-11) % Eos % (Auto) 0.9 (0-4) % Baso % (Auto) 0.3 (0-2) % Lymph # (Auto) 1.6 (1.2-4.9) X10*3/uL [place] # (Auto) 0.8 (0.1-1.2) X10*3/uL Eos # (Auto) 0.1 (0.0-0.4) X10*3/uL Baso # (Auto) 0.0 (0.0-0.2) X10*3/uL Abs Immat Gran (auto) 0.04 H (0.00-0.03) X10*3/uL Absolute Neuts (auto) 9.1 H (2.0-8.3) x10*3/uL Absolute Nucleated RBC 0.000 (0.0-0.012) X10*3/uL Nucleated RBC % (auto) 0.0 (0.0-0.2) /100WBC PT (9.9-13.0) SEC INR (0.9-1.1) APTT (24.1-38.0) SEC D-Dimer High Sensitivty NG/ML Sodium 132 L (135-145) mmol/L Potassium 5.0 (3.3-5.1) mmol/L Chloride 102 (96-108) mmol/L Carbon Dioxide 22 (22-29) mmol/L Anion Gap 13 (12-20) BUN 34 H D (9-16) mg/dL Creatinine 1.95 H (0.5-1.4) mg/dL Estim Creat Clear Calc 42.8 Estimated GFR 29 Random Glucose 375 H* (60-115) mg/dL Calcium 9.6 (8.4-10.2) mg/dL Total Bilirubin 0.9 (0.0-1.0) mg/dL Direct Bilirubin 0.3 (0.0-0.5) mg/dL AST 11 (5-31) U/L ALT 9 (0-31) U/L Alkaline Phosphatase 90 (39-117) U/L Troponin I High Sens 24.8 H D (<3.5-17.0) ng/L B-Natriuretic Peptide (<100) pg/mL Total Protein 6.8 (6.5-8.0) g/dL Albumin 4.2 (3.5-5.0) g/dL Lipase 26 (8-78) U/L Urine Color Urine Appearance Urine pH (5.0-8.0) Ur Specific [place] (1.005-1.025) Urine Protein (NEG-TRACE) MG/DL Urine Glucose (UA) (NEG) MG/DL Urine Ketones (NEG) MG/DL Urine Blood (NEG) Urine Nitrite (NEG) Ur Leukocyte Esterase (NEG) Urine RBC (0) /HPF Urine WBC (0-4) /HPF Ur Squamous Epith Cells /LPF Amorphous Sediment /LPF Urine Bacteria /LPF Urine Test (NEGATIVE) COVID-19 (TOM) (Negative) COVID-19 Clin Com 08/18/21 08/18/21 08/18/21 Range/Units 14:30 14:30 14:30 WBC (4.8-10.8) X10*3/uL RBC (4.20-5.50) X10*6/uL Hgb (12.0-16.0) g/dl Hct (37.0-47.0) % MCV (80.0-98.0) fL MCH (27.0-33.0) pg MCHC (31.0-35.0) g/dl RDW (11.0-16.0) % Plt Count (160-400) X10*3/uL MPV (9.4-12.3) fL Immature Gran % (Auto) (0.0-0.4) % Neut % (Auto) (45-73) % Lymph % (Auto) (20-40) % [place] % (Auto) (2-11) % Eos % (Auto) (0-4) % Baso % (Auto) (0-2) % Lymph # (Auto) (1.2-4.9) X10*3/uL [place] # (Auto) (0.1-1.2) X10*3/uL Eos # (Auto) (0.0-0.4) X10*3/uL Baso # (Auto) (0.0-0.2) X10*3/uL Abs Immat Gran (auto) (0.00-0.03) X10*3/uL Absolute Neuts (auto) (2.0-8.3) x10*3/uL Absolute Nucleated RBC (0.0-0.012) X10*3/uL Nucleated RBC % (auto) (0.0-0.2) /100WBC PT (9.9-13.0) SEC INR (0.9-1.1) APTT (24.1-38.0) SEC D-Dimer High Sensitivty < 150 NG/ML Sodium (135-145) mmol/L Potassium (3.3-5.1) mmol/L Chloride (96-108) mmol/L Carbon Dioxide (22-29) mmol/L Anion Gap (12-20) BUN (9-16) mg/dL Creatinine (0.5-1.4) mg/dL Estim Creat Clear Calc Estimated GFR Random Glucose (60-115) mg/dL Calcium (8.4-10.2) mg/dL Total Bilirubin (0.0-1.0) mg/dL Direct Bilirubin (0.0-0.5) mg/dL AST (5-31) U/L ALT (0-31) U/L Alkaline Phosphatase (39-117) U/L Troponin I High Sens (<3.5-17.0) ng/L B-Natriuretic Peptide 1162 H (<100) pg/mL Total Protein (6.5-8.0) g/dL Albumin (3.5-5.0) g/dL Lipase (8-78) U/L Urine Color Urine Appearance Urine pH (5.0-8.0) Ur Specific [place] (1.005-1.025) Urine Protein (NEG-TRACE) MG/DL Urine Glucose (UA) (NEG) MG/DL Urine Ketones (NEG) MG/DL Urine Blood (NEG) Urine Nitrite (NEG) Ur Leukocyte Esterase (NEG) Urine RBC (0) /HPF Urine WBC (0-4) /HPF Ur Squamous Epith Cells /LPF Amorphous Sediment /LPF Urine Bacteria /LPF Urine Test (NEGATIVE) COVID-19 (TOM) Negative (Negative) COVID-19 Clin Com See Note 08/18/21 08/18/21 08/18/21 Range/Units 14:30 14:30 14:30 WBC (4.8-10.8) X10*3/uL RBC (4.20-5.50) X10*6/uL Hgb (12.0-16.0) g/dl Hct (37.0-47.0) % MCV (80.0-98.0) fL MCH (27.0-33.0) pg MCHC (31.0-35.0) g/dl RDW (11.0-16.0) % Plt Count (160-400) X10*3/uL MPV (9.4-12.3) fL Immature Gran % (Auto) (0.0-0.4) % Neut % (Auto) (45-73) % Lymph % (Auto) (20-40) % [place] % (Auto) (2-11) % Eos % (Auto) (0-4) % Baso % (Auto) (0-2) % Lymph # (Auto) (1.2-4.9) X10*3/uL [place] # (Auto) (0.1-1.2) X10*3/uL Eos # (Auto) (0.0-0.4) X10*3/uL Baso # (Auto) (0.0-0.2) X10*3/uL Abs Immat Gran (auto) (0.00-0.03) X10*3/uL Absolute Neuts (auto) (2.0-8.3) x10*3/uL Absolute Nucleated RBC (0.0-0.012) X10*3/uL Nucleated RBC % (auto) (0.0-0.2) /100WBC PT 10.9 (9.9-13.0) SEC INR 1.0 (0.9-1.1) APTT 29.0 (24.1-38.0) SEC D-Dimer High Sensitivty NG/ML Sodium (135-145) mmol/L Potassium (3.3-5.1) mmol/L Chloride (96-108) mmol/L Carbon Dioxide (22-29) mmol/L Anion Gap (12-20) BUN (9-16) mg/dL Creatinine (0.5-1.4) mg/dL Estim Creat Clear Calc Estimated GFR Random Glucose (60-115) mg/dL Calcium (8.4-10.2) mg/dL Total Bilirubin (0.0-1.0) mg/dL Direct Bilirubin (0.0-0.5) mg/dL AST (5-31) U/L ALT (0-31) U/L Alkaline Phosphatase (39-117) U/L Troponin I High Sens (<3.5-17.0) ng/L B-Natriuretic Peptide (<100) pg/mL Total Protein (6.5-8.0) g/dL Albumin (3.5-5.0) g/dL Lipase (8-78) U/L Urine Color YELLOW Urine Appearance CLOUDY Urine pH 6.0 (5.0-8.0) Ur Specific [place] 1.020 (1.005-1.025) Urine Protein 2+ H (NEG-TRACE) MG/DL Urine Glucose (UA) >=1000 H (NEG) MG/DL Urine Ketones NEG (NEG) MG/DL Urine Blood NEG (NEG) Urine Nitrite NEG (NEG) Ur Leukocyte Esterase 1+ H (NEG) Urine RBC 0 (0) /HPF Urine WBC 5-9 H (0-4) /HPF Ur Squamous Epith Cells 3+ /LPF Amorphous Sediment 2+ /LPF Urine Bacteria 2+ /LPF Urine Test (NEGATIVE) COVID-19 (TOM) (Negative) COVID-19 Clin Com 08/18/21 Range/Units 14:30 WBC (4.8-10.8) X10*3/uL RBC (4.20-5.50) X10*6/uL Hgb (12.0-16.0) g/dl Hct (37.0-47.0) % MCV (80.0-98.0) fL MCH (27.0-33.0) pg MCHC (31.0-35.0) g/dl RDW (11.0-16.0) % Plt Count (160-400) X10*3/uL MPV (9.4-12.3) fL Immature Gran % (Auto) (0.0-0.4) % Neut % (Auto) (45-73) % Lymph % (Auto) (20-40) % [place] % (Auto) (2-11) % Eos % (Auto) (0-4) % Baso % (Auto) (0-2) % Lymph # (Auto) (1.2-4.9) X10*3/uL [place] # (Auto) (0.1-1.2) X10*3/uL Eos # (Auto) (0.0-0.4) X10*3/uL Baso # (Auto) (0.0-0.2) X10*3/uL Abs Immat Gran (auto) (0.00-0.03) X10*3/uL Absolute Neuts (auto) (2.0-8.3) x10*3/uL Absolute Nucleated RBC (0.0-0.012) X10*3/uL Nucleated RBC % (auto) (0.0-0.2) /100WBC PT (9.9-13.0) SEC INR (0.9-1.1) APTT (24.1-38.0) SEC D-Dimer High Sensitivty NG/ML Sodium (135-145) mmol/L Potassium (3.3-5.1) mmol/L Chloride (96-108) mmol/L Carbon Dioxide (22-29) mmol/L Anion Gap (12-20) BUN (9-16) mg/dL Creatinine (0.5-1.4) mg/dL Estim Creat Clear Calc Estimated GFR Random Glucose (60-115) mg/dL Calcium (8.4-10.2) mg/dL Total Bilirubin (0.0-1.0) mg/dL Direct Bilirubin (0.0-0.5) mg/dL AST (5-31) U/L ALT (0-31) U/L Alkaline Phosphatase (39-117) U/L Troponin I High Sens (<3.5-17.0) ng/L B-Natriuretic Peptide (<100) pg/mL Total Protein (6.5-8.0) g/dL Albumin (3.5-5.0) g/dL Lipase (8-78) U/L Urine Color Urine Appearance Urine pH (5.0-8.0) Ur Specific [place] (1.005-1.025) Urine Protein (NEG-TRACE) MG/DL Urine Glucose (UA) (NEG) MG/DL Urine Ketones (NEG) MG/DL Urine Blood (NEG) Urine Nitrite (NEG) Ur Leukocyte Esterase (NEG) Urine RBC (0) /HPF Urine WBC (0-4) /HPF Ur Squamous Epith Cells /LPF Amorphous Sediment /LPF Urine Bacteria /LPF Urine Test NEGATIVE (NEGATIVE) COVID-19 (TOM) (Negative) COVID-19 Clin Com Imaging Data Chest x-ray: Attestation: I personally reviewed and interpreted this imaging study as follows: Radiologist's impression: Upper normal-size cardiac silhouette. Blunting of the left lateral costophrenic angle questionable for tiny left pleural effusion or pleural thickening. Old left rib fractures. ? ECG Data ECG #1: Attestation: I personally reviewed and interpreted this ECG as follows: Interpretation: Normal sinus rhythm at 87 beats per minute, left atrial enlargement, LVH. No change from previous EKG. Discharge Plan Discharge Clinical Impression: Chest pain, Hypertensive urgency Patient Disposition: Left Against Medical Advice Instructions: Hypertensive Crisis (ED) Prescriptions: No Action albuterol sulfate 90 mcg/actuation HFA aerosol inhaler 1 inh inhalation QID PRN (Reason: shortness of breath or wheezing) 30 Days Qty: 8.5 3RF Xigduo XR 10-1,000 mg tablet, IR - ER, biphasic 24hr 1 tab PO DAILY 0RF aspirin 81 mg Tablet,Delayed Release (Dr/Ec) 81 mg PO DAILY 0RF lamotrigine 100 mg tablet 100 mg PO DAILY 0RF Rx Instructions: take 1.5 tablets daily clonazepam 1 mg tablet 1 mg PO DAILY PRN (Reason: anxiety) 0RF omeprazole 20 mg capsule,delayed release(DR/EC) 20 mg PO DAILY Qty: 90 1RF amlodipine 10 mg tablet 10 mg PO DAILY 0RF furosemide 40 mg tablet 20 mg PO DAILY 0RF lisinopril 10 mg tablet 20 mg PO BID 0RF Hold Instructions: Resume on 01/21/21. Hold lisinopril until repeat BMP out patiently with PCP and follow-up with Nephrology. spironolactone 25 mg tablet 100 mg PO DAILY 0RF Protocol: Hold for SBP< HOLD for SBP < : 90 carvedilol [Coreg] 6.25 mg tablet 6.25 mg PO BID Qty: 60 2RF Rx Instructions: must administer with a meal/food Referrals: James Abraham MD [Physician] -
[2021-08-18] MEDS: Nitroglycerin 2 % Oint 1 GM Packet 1 INCH TRANSDERMA (14:17)
[2021-08-18 14:38] LABS: MANUAL DIFF FLAG NO
[2021-08-18 14:43] LABS: Appearance Urine CLOUDY; Basophils Percent Auto 0.3 % (0-2); Color Urine YELLOW; Eosinophils Absolute Auto 0.1 X10*3/uL (0.0-0.4); Eosinophils Percent Auto 0.9 % (0-4); Glucose Urine UA >=1000 MG/DL (NEG); Hematocrit 37.1 % (37.0-47.0); Hemoglobin 13.6 g/dl (12.0-16.0); Imm Gran Abs Auto 0.04 X10*3/uL (0.00-0.03); Imm Gran Pct Auto 0.3 % (0.0-0.4); Leukocyte Esterase Urine 1+ (NEG); Lymphocytes Absolute Auto 1.6 X10*3/uL (1.2-4.9); Lymphocytes Percent Auto 13.8 % (20-40); Mean Corpuscular HGB Conc 36.7 g/dl (31.0-35.0); Mean Corpuscular Hemoglobin 33.2 pg (27.0-33.0); Mean Corpuscular Volume 90.5 fL (80.0-98.0); Mean Platelet Volume 9.2 fL (9.4-12.3); Monocytes Absolute Auto 0.8 X10*3/uL (0.1-1.2); Monocytes Percent Auto 6.6 % (2-11); Neutrophils Absolute Auto 9.1 x10*3/uL (2.0-8.3); Neutrophils Percent Auto 78.1 % (45-73); Nitrite Urine NEG (NEG); Platelet Count 339 X10*3/uL (160-400); Red Cell Distribution Width 14.9 % (11.0-16.0); UACC Culture Trigger YES; Urine Blood NEG (NEG); Urine Ketones NEG (NEG); Urine Protein 2+ MG/DL (NEG-TRACE); White Blood Count 11.6 X10*3/uL (4.8-10.8)
[2021-08-18] MEDS: LORazepam 2 MG/ML VIAL IVPUSH (14:44)
[2021-08-18] MEDS: amLODIPine Besylate 10 MG TABLET PO (14:44)
[2021-08-18 14:45] LABS: UPreg QC Valid YES; Urine Pregnancy NEGATIVE (NEGATIVE)
[2021-08-18 14:55] LABS: Prothrombin Time 10.9 SEC (9.9-13.0)
[2021-08-18 14:57] LABS: Amorphous Sediment Urine 2+ /LPF; Bacteria Urine 2+ /LPF; RBC Urine 0 /HPF (0); Squamous Epithelial Cell Urine 3+ /LPF
[2021-08-18 14:59] LABS: COVID-19 Test Negative (Negative); D Dimer High Sensitivity < 150 NG/ML; IDNOW Serial# 16C4AD1C
[2021-08-18 15:02] LABS: B Type Natriuretic Peptide 1162 pg/mL (<100); Troponin-I High Sensitivity 24.8 ng/L (<3.5-17.0)
[2021-08-18 15:04] LABS: Alanine Aminotransferase 9 U/L (0-31); Albumin Level 4.2 g/dL (3.5-5.0); Alkaline Phosphatase 90 U/L (39-117); Anion Gap 13 (12-20); Aspartate Amino Transferase 11 U/L (5-31); Bilirubin Direct 0.3 mg/dL (0.0-0.5); Bilirubin Total 0.9 mg/dL (0.0-1.0); Blood Urea Nitrogen 34 mg/dL (9-16); Calcium 9.6 mg/dL (8.4-10.2); Carbon Dioxide 22 mmol/L (22-29); Chloride 102 mmol/L (96-108); Creatinine Clr Calc Pharmacy 42.8; Estimated Glomerular Filt Rate 29; Glucose Random 375 mg/dL (60-115); Lipase 26 U/L (8-78); Sodium 132 mmol/L (135-145); Total Protein 6.8 g/dL (6.5-8.0)
[2021-08-18] MEDS: Furosemide 100 MG/10 ML VIAL 80 MG IVPUSH (15:28)
[2021-08-18 15:45] VITALS: BP 203/118; PULSE 93; RESP 25; O2SAT 98
--- NOTE | 2021-08-18 15:59 | PHA.MEDREC ---
Pharmacy Consult ? Medication Reconciliation Pharmacy has completed the medication reconciliation. Patient brought in list of medications. Patient reported that the pharmacy was not able to filled her prescripition for Procardia therefore she has not start the Procardia XL 60 mg daily. Once she start Procardia XL she is suppose to stop taking Amlodipine and Lasix however she is still taking them since she has not recieved Procardia XL yet. Lilian Argueta, PharmD
[2021-08-18 16:37] VITALS: BP 170/95; PULSE 89; RESP 16; O2SAT 97
[2021-08-18] MEDS: Morphine Sulfate 4 MG/ML CARTRIDGE IVPUSH (18:10)
[2021-08-18] MEDS: cloNIDine HCL 0.2 MG TABLET PO (18:10)
[2021-08-18] MEDS: ondansetron HCL 4 MG/2 ML VIAL IVPUSH (18:10)
[2021-08-18 18:44] LABS: Troponin-I High Sensitivity 28.6 ng/L (<3.5-17.0)
[2021-08-18 19:03] VITALS: BP 186/125; PULSE 90; RESP 20; TEMP 36.8; O2SAT 98
[2021-08-18 19:46] VITALS: BP 168/87; PULSE 84; RESP 16; O2SAT 97
== END 2021-08-18 20:10 | disposition left against medical advice (07) ==
PROVIDERS: Emergency Provider Emergency Medicine
DX: I16.0 Hypertensive urgency (principal); R07.9 Chest pain, unspecified; I13.0 Hypertensive heart and chronic kidney disease with heart failure and stage 1 through stage 4 chronic kidney disease, or unspecified chronic kidney disease; E11.22 Type 2 diabetes mellitus with diabetic chronic kidney disease; N18.2 Chronic kidney disease, stage 2 (mild); I50.9 Heart failure, unspecified; I44.1 Atrioventricular block, second degree; F17.210 Nicotine dependence, cigarettes, uncomplicated; Z86.718 Personal history of other venous thrombosis and embolism; Z79.82 Long term (current) use of aspirin; Z79.899 Other long term (current) drug therapy; Z20.822 Contact with and (suspected) exposure to COVID-19
CPT/HCPCS: 36415; 71045; 80048; 80076; 81001; 81025; 83690; 83880; 84484; 85025; 85379; 85610; 85730; 87086; 87635; 93005; 96374; 96375; 99284; J1940; J2060; J2270; J2405

== ENCOUNTER 2021-08-19 07:55 | Emergency (ER) | payer MEDICARE, MEDICAID, SELFPAY ==
[2021-07-15 13:20] VITALS: BP 190/110; BP 190/120
[2021-08-12 14:19] VITALS: BP 190/120; BMI 29.0
--- NOTE | ~2021-08-19 | XR_ITS ---
EXAMINATION: XR CHEST CLINICAL INFORMATION: Shortness of breath and chest pain COMPARISON: Previous day TECHNIQUE: 2 views of the chest were obtained. FINDINGS: Normal symmetric lung volumes. No parenchymal consolidation. No pleural effusion. No pneumothorax. Mildly enlarged cardiac silhouette. Pulmonary vascularity are within normal limits. No acute osseous abnormalities. Healing left-sided rib fractures. XR/XR chest 2V IMPRESSION: No acute findings. Stable mild prominence of the cardiac silhouette.
--- NOTE | 2021-08-19 08:01 | ECG_ITS ---
Test Reason : cp,sob Blood Pressure : / mmHG Vent. Rate : 085 BPM Atrial Rate : 085 BPM P-R Int : 146 ms QRS Dur : 086 ms QT Int : 380 ms P-R-T Axes : 058 014 150 degrees QTc Int : 452 ms Normal sinus rhythm Left atrial enlargement Left ventricular hypertrophy with repolarization abnormality ( R in aVL , Sokolow-Abarca , Omar product , Romhilt-Peres ) Abnormal ECG When compared with ECG of 18-AUG-2021 13:59, No significant change was found Referred By: Generic ED Physician Electronically Signed By:MANJEET DUVALL
[2021-08-19 09:25] VITALS: BP 200/111; PULSE 87; RESP 20; TEMP 36.1; O2SAT 99; BMI 30.3
[2021-08-19 11:22] VITALS: BP 196/107; PULSE 74; RESP 20; O2SAT 99
--- NOTE | 2021-08-19 11:37 | ED.CHESTPAIN ---
HPI - Chest Pain General Chief Complaint: Chest Pain Stated Complaint: bad chest pain , and back pain, sob Time Seen by Provider: 08/19/21 08:02 Source: patient Mode of arrival: ambulatory Limitations: no limitations History of Present Illness HPI narrative: Patient presents to the emergency department today, stating that she was advised yesterday to stay in the hospital but she had no interact her children. She reports that she continues to have mid chest pain that is radiating to the right and left side of her chest, it has been constant. She reports some mild shortness of breath when she is up in walking around. Denies any fevers, chills, neck pain, palpitations, nausea, vomiting, abdominal pain, dysuria, urinary frequency/urinary retention, pedal edema, provider calf pain/swelling. She reports that today she has not yet taken any of her diuretics or blood pressure medication. Reports that she was supposed to stop taking amlodipine and Lasix and began taking nifedipine but she has not yet done this. Related Data Home Medications Medication Instructions Recorded Confirmed aspirin 81 mg tablet,delayed 81 mg PO DAILY 09/14/20 08/19/21 release dapagliflozin 10 mg-metformin ER 1 tab PO DAILY 10/25/20 08/19/21 1,000 mg tablet,extended release 24hr (Xigduo XR) clonazepam 1 mg tablet 1 mg PO DAILY PRN 11/05/20 08/19/21 lamotrigine 100 mg tablet 100 mg PO DAILY tab 11/08/20 08/19/21 amlodipine 10 mg tablet 10 mg PO DAILY 06/18/21 08/19/21 furosemide 40 mg tablet 20 mg PO DAILY 06/18/21 08/19/21 lisinopril 10 mg tablet 20 mg PO BID tab 06/18/21 08/19/21 spironolactone 25 mg tablet 100 mg PO DAILY tab 06/18/21 08/19/21 Previous Rx's Medication Instructions Recorded omeprazole 20 mg capsule,delayed 20 mg PO DAILY #90 cap 02/06/21 release carvedilol 6.25 mg tablet (Coreg) 6.25 mg PO BID #60 tab 06/18/21 albuterol sulfate 90 mcg/actuation 1 inh INHALATION QID PRN 30 Days 08/15/21 aerosol inhaler #8.5 g tramadol 50 mg tablet 50 mg PO Q6H PRN #20 tab 08/18/21 Allergies Allergy/AdvReac Type Severity Reaction Status Date / Time Cephalosporins Allergy Intermediate RASH ALL Verified 07/04/21 18:04 [CEPHALOSPORINS] OVER amoxicillin Allergy Unknown rash Verified 07/04/21 18:04 cefaclor [From Ceclor] Allergy Unknown RASH Verified 07/04/21 18:04 cephalexin Allergy Unknown rash Verified 07/04/21 18:04 cephradine [From VELOSEF] Allergy Unknown RASH Verified 07/04/21 18:04 Penicillins [PENICILLINS] Allergy Unknown RASH Verified 07/04/21 18:04 gabapentin [GABAPENTIN] AdvReac Unknown RESTLESS Verified 07/04/21 18:04 LEGS, Body becomes very uncomfortable Review of Systems Review of Systems: Constitutional : No Weight loss, No Fever, No Chills ENT/Mouth :? No sore throat, No Rhinorrhea Eyes: No Eye Pain, No Swelling Cardiovascular : pos Chest Pain, pos SOB, no Dyspnea on Exertion, No Orthopnea, No Edema, No Palpitations Respiratory : No Cough, No Sputum Gastrointestinal : no Nausea, No Vomiting, No Diarrhea, No abdominal Pain, No Hematochezia, No Melena Genitourinary : No Dysuria, No Urinary Frequency Musculoskeletal : No joint pain, No Myalgias, No Joint Swelling Skin : No Skin Lesions, No rash Neuro : No Weakness, No Numbness, No Dizziness, No Headache Psych : No Anxiety/Panic, No Depression Heme/Lymph: No Bruising, No Lymphadenopathy Endocrine : No Polyuria, No Polydipsia Yes all other systems are reviewed and are negative [facility] Past Medical History Attestation statement: The following information was validated with the patient. Source: old records reviewed Medical History Anxiety Bipolar 1 disorder Cardiomyopathy CKD (chronic kidney disease) stage 2, GFR 60-89 ml/min Diabetes mellitus Eclampsia Fatty liver H/O mixed connective tissue disease Heart block AV second degree High cholesterol History of DVT (deep vein thrombosis) HTN (hypertension) Hypersomnia Lupus Migraines Nicotine dependence, cigarettes, uncomplicated (~1999) PTSD (post-traumatic stress disorder) Rheumatoid arthritis Sjogren's disease Surgical History History of bronchoscopy (~11/2020) History of cholecystectomy (~05/2014) History of hysterectomy Family History Family History Other Diabetes HTN (hypertension) Social History Social History Household Members: Family Household Members Other:: children Housing: House Are you a primary medicare sales executive to a significant other at home: No Do you presently have visiting nurse or other home services: No Alcohol intake: never Patient Tobacco Use Status: Current everyday Tobacco user Tobacco use type: Cigarette Cigarette Packs Per Day: 1 Cigarettes Per Day: 10.0 Years Smoked: 20 e-Cigarette/Vaping Use: Never Used Second Hand Smoke Exposure: Yes Substance Use Type: Marijuana Advance Directives: Yes Advance Directives on File: Yes Advance Directives Date on File: 06/03/21 service: No Current occupational status: disabled Physical Exam Vital Signs: Vital Signs: Last Vital Signs Temp 96.3 F L 08/19/21 14:56 Pulse 69 08/19/21 14:56 Resp 19 08/19/21 14:56 BP 161/101 H 08/19/21 14:56 Pulse Ox 99 08/19/21 14:56 BMI result Body Mass Index 30.3 Vital signs have been reviewed as normal and appeared to be correct. Hypertensive? Heart rate normal.? Respiration rate normal. Temperature normal.? Oxygen saturation normal. Appearance: Alert.?Oriented to person, place and time. No acute distress.?Normal affect. Eyes: Pupils equal, round and reactive to light.? ENT: Pharynx normal.?? Neck: Normal inspection.? Neck supple.?? CVS: Heart sounds normal. Normal heart rate and rhythm.? Pulses normal.??No JVD. No pedal edema. Respiratory: No respiratory distress.? Lung sounds clear to auscultation bilaterally?? Abdomen: Soft and non-tender. Normoactive bowel sounds..?? Skin: Skin warm and dry.? Normal skin color.? Extremities: No lower extremity edema.? No calf ttp? Neuro: Moves all extremities spontaneously. Sensation intact bilaterally. CN II-XII intact. No focal neuro deficits. Ambulates with normal steady gait. Course Course Course Narrative: Patient is a 41-year-old female with a past medical history of CKD, hypertension, congestive heart failure, EF 43%, cardiomyopathy, hyperlipidemia, diabetes mellitus, history of DVT, second-degree heart block. She returns today with persistent chest pain that radiates to the right upper back, and hypertension. Will obtain CBC to evaluate for leukocytosis/ anemia, CMP to evaluate for abnormal electrolytes /abnormal renal function/ abnormal hepatic function, EKG and troponin to evaluate for ischemia/ACS. Chest x-ray to evaluate for consolidation/ infiltrate/ mass/ pulmonary congestion. Patient to receive home blood pressure medications that she has not yet taken in today, Lasix 40 mg IV, nitro paste 0.5 in, morphine 4 mg IV. Disposition pending results. Reevaluation(s) Reevaluation #1: CBC overall unremarkable, WBC 11.1. BUN creatinine 39 and 1.98, appears to have baseline creatinine in 1.5-1.6. Troponin 30.2, will obtain delta troponin, EKG reveals normal sinus rhythm with significant LVH, T-wave inversions in the lateral leads but this appears unchanged from prior EKGs. BNP 266. D-Dimer <150 yesterday, therefore unlikely to be aortic dissection or pulmonary embolism. BP 159/95 and heart rate 75. Chest pain has resolved at this time. Will gently hydrate with 500mL NS and repeat troponin and BMP Time: 14:00 Reevaluation #2: Repeat troponin and BMP are pending at this time. Denies chest pain. She reports that she intermittently feels pain to her right upper back that feels ?aching?. Not reproducible to deep inspiration, cough. At times feels worse when moving her right arm. Discussed this case with the ED attending Dr. Adkins, who agrees with assessment that back pain seems most consistent with musculoskeletal nature at this time, will trial Tramadol. Time: 16:29 Reevaluation #3: Repeat Trop 24.1, therefore delta <50%, unlikely ACS. Repeat blood pressure 156/90, heart rate 72. 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 MDM - Chest Pain Medical Records Data Attestation: I reviewed the patient's medical records. Lab Data Attestation: I reviewed the patient's lab results. Result diagrams: 08/19/21 13:40 08/19/21 16:45 Labs: Lab Results 08/19/21 08/19/21 08/19/21 Range/Units 13:32 13:32 13:34 WBC (4.8-10.8) X10*3/uL RBC (4.20-5.50) X10*6/uL Hgb (12.0-16.0) g/dl Hct (37.0-47.0) % MCV (80.0-98.0) fL MCH (27.0-33.0) pg MCHC (31.0-35.0) g/dl RDW (11.0-16.0) % Plt Count (160-400) X10*3/uL MPV (9.4-12.3) fL Immature Gran % (Auto) (0.0-0.4) % Neut % (Auto) (45-73) % Lymph % (Auto) (20-40) % [place] % (Auto) (2-11) % Eos % (Auto) (0-4) % Baso % (Auto) (0-2) % Lymph # (Auto) (1.2-4.9) X10*3/uL [place] # (Auto) (0.1-1.2) X10*3/uL Eos # (Auto) (0.0-0.4) X10*3/uL Baso # (Auto) (0.0-0.2) X10*3/uL Abs Immat Gran (auto) (0.00-0.03) X10*3/uL Absolute Neuts (auto) (2.0-8.3) x10*3/uL Absolute Nucleated RBC (0.0-0.012) X10*3/uL Nucleated RBC % (auto) (0.0-0.2) /100WBC Sodium (135-145) mmol/L Potassium (3.3-5.1) mmol/L Chloride (96-108) mmol/L Carbon Dioxide (22-29) mmol/L Anion Gap (12-20) BUN (9-16) mg/dL Creatinine (0.5-1.4) mg/dL Estim Creat Clear Calc Estimated GFR Random Glucose (60-115) mg/dL Calcium (8.4-10.2) mg/dL Magnesium (1.6-2.6) mg/dL Total Bilirubin (0.0-1.0) mg/dL AST (5-31) U/L ALT (0-31) U/L Alkaline Phosphatase (39-117) U/L Troponin I High Sens (<3.5-17.0) ng/L B-Natriuretic Peptide (<100) pg/mL Total Protein (6.5-8.0) g/dL Albumin (3.5-5.0) g/dL Urine Color YELLOW Urine Appearance CLEAR Urine pH 6.0 (5.0-8.0) Ur Specific [place] 1.025 (1.005-1.025) Urine Protein 2+ H (NEG-TRACE) MG/DL Urine Glucose (UA) 100 H (NEG) MG/DL Urine Ketones NEG (NEG) MG/DL Urine Blood NEG (NEG) Urine Nitrite NEG (NEG) Ur Leukocyte Esterase NEG (NEG) Urine RBC 0 (0) /HPF Urine WBC 1-4 (0-4) /HPF Ur Squamous Epith Cells 4+ /LPF Urine Bacteria 1+ /LPF Urine Test NEGATIVE (NEGATIVE) COVID-19 (TOM) Negative (Negative) COVID-19 Clin Com See Note 08/19/21 08/19/21 08/19/21 Range/Units 13:40 13:40 13:40 WBC 11.1 H (4.8-10.8) X10*3/uL RBC 4.32 (4.20-5.50) X10*6/uL Hgb 14.0 (12.0-16.0) g/dl Hct 39.1 (37.0-47.0) % MCV 90.5 (80.0-98.0) fL MCH 32.4 (27.0-33.0) pg MCHC 35.8 H (31.0-35.0) g/dl RDW 14.7 (11.0-16.0) % Plt Count 386 (160-400) X10*3/uL MPV 9.3 L (9.4-12.3) fL Immature Gran % (Auto) 0.5 H (0.0-0.4) % Neut % (Auto) 73.5 H (45-73) % Lymph % (Auto) 17.9 L (20-40) % [place] % (Auto) 6.8 (2-11) % Eos % (Auto) 0.9 (0-4) % Baso % (Auto) 0.4 (0-2) % Lymph # (Auto) 2.0 (1.2-4.9) X10*3/uL [place] # (Auto) 0.8 (0.1-1.2) X10*3/uL Eos # (Auto) 0.1 (0.0-0.4) X10*3/uL Baso # (Auto) 0.0 (0.0-0.2) X10*3/uL Abs Immat Gran (auto) 0.05 H (0.00-0.03) X10*3/uL Absolute Neuts (auto) 8.2 (2.0-8.3) x10*3/uL Absolute Nucleated RBC 0.000 (0.0-0.012) X10*3/uL Nucleated RBC % (auto) 0.0 (0.0-0.2) /100WBC Sodium 133 L (135-145) mmol/L Potassium 4.6 (3.3-5.1) mmol/L Chloride 99 (96-108) mmol/L Carbon Dioxide 24 (22-29) mmol/L Anion Gap 15 (12-20) BUN 39 H (9-16) mg/dL Creatinine 1.98 H (0.5-1.4) mg/dL Estim Creat Clear Calc 41.9 Estimated GFR 28 Random Glucose 199 H (60-115) mg/dL Calcium 9.6 (8.4-10.2) mg/dL Magnesium 2.1 (1.6-2.6) mg/dL Total Bilirubin 1.3 H (0.0-1.0) mg/dL AST 14 (5-31) U/L ALT 13 (0-31) U/L Alkaline Phosphatase 90 (39-117) U/L Troponin I High Sens 30.2 H (<3.5-17.0) ng/L B-Natriuretic Peptide 266 H (<100) pg/mL Total Protein 7.1 (6.5-8.0) g/dL Albumin 4.3 (3.5-5.0) g/dL Urine Color Urine Appearance Urine pH (5.0-8.0) Ur Specific [place] (1.005-1.025) Urine Protein (NEG-TRACE) MG/DL Urine Glucose (UA) (NEG) MG/DL Urine Ketones (NEG) MG/DL Urine Blood (NEG) Urine Nitrite (NEG) Ur Leukocyte Esterase (NEG) Urine RBC (0) /HPF Urine WBC (0-4) /HPF Ur Squamous Epith Cells /LPF Urine Bacteria /LPF Urine Test (NEGATIVE) COVID-19 (TOM) (Negative) COVID-19 Clin Com 08/19/21 08/19/21 Range/Units 16:45 16:45 WBC (4.8-10.8) X10*3/uL RBC (4.20-5.50) X10*6/uL Hgb (12.0-16.0) g/dl Hct (37.0-47.0) % MCV (80.0-98.0) fL MCH (27.0-33.0) pg MCHC (31.0-35.0) g/dl RDW (11.0-16.0) % Plt Count (160-400) X10*3/uL MPV (9.4-12.3) fL Immature Gran % (Auto) (0.0-0.4) % Neut % (Auto) (45-73) % Lymph % (Auto) (20-40) % [place] % (Auto) (2-11) % Eos % (Auto) (0-4) % Baso % (Auto) (0-2) % Lymph # (Auto) (1.2-4.9) X10*3/uL [place] # (Auto) (0.1-1.2) X10*3/uL Eos # (Auto) (0.0-0.4) X10*3/uL Baso # (Auto) (0.0-0.2) X10*3/uL Abs Immat Gran (auto) (0.00-0.03) X10*3/uL Absolute Neuts (auto) (2.0-8.3) x10*3/uL Absolute Nucleated RBC (0.0-0.012) X10*3/uL Nucleated RBC % (auto) (0.0-0.2) /100WBC Sodium 134 L (135-145) mmol/L Potassium 4.6 (3.3-5.1) mmol/L Chloride 100 (96-108) mmol/L Carbon Dioxide 26 (22-29) mmol/L Anion Gap 13 (12-20) BUN 37 H (9-16) mg/dL Creatinine 1.98 H (0.5-1.4) mg/dL Estim Creat Clear Calc 41.9 Estimated GFR 28 Random Glucose 189 H (60-115) mg/dL Calcium 9.7 (8.4-10.2) mg/dL Magnesium (1.6-2.6) mg/dL Total Bilirubin (0.0-1.0) mg/dL AST (5-31) U/L ALT (0-31) U/L Alkaline Phosphatase (39-117) U/L Troponin I High Sens 24.1 H (<3.5-17.0) ng/L B-Natriuretic Peptide (<100) pg/mL Total Protein (6.5-8.0) g/dL Albumin (3.5-5.0) g/dL Urine Color Urine Appearance Urine pH (5.0-8.0) Ur Specific [place] (1.005-1.025) Urine Protein (NEG-TRACE) MG/DL Urine Glucose (UA) (NEG) MG/DL Urine Ketones (NEG) MG/DL Urine Blood (NEG) Urine Nitrite (NEG) Ur Leukocyte Esterase (NEG) Urine RBC (0) /HPF Urine WBC (0-4) /HPF Ur Squamous Epith Cells /LPF Urine Bacteria /LPF Urine Test (NEGATIVE) COVID-19 (TOM) (Negative) COVID-19 Clin Com Imaging Data Chest x-ray: Radiologist's impression: FINDINGS: Normal symmetric lung volumes. No parenchymal consolidation. No pleural effusion. No pneumothorax. Mildly enlarged cardiac silhouette. Pulmonary vascularity are within normal limits. No acute osseous abnormalities.? Healing left-sided rib fractures. XR/XR chest 2V IMPRESSION: No acute findings. Stable mild prominence of the cardiac silhouette. ECG Data ECG #1: Attestation: I personally reviewed and interpreted this ECG as follows: ECG interpretation date: 08/19/21 ECG interpretation time: 14:24 Prior ECG tracings: available for review Interpretation: Rate: 86 Rhythm:? Normal sinus rhythm, left ventricular hypertrophy [place]:? Normal Normal P waves.? Normal HECTOR.?? Normal QRS complex.?? ST T wave :??No ST elevation. Lateral leads with T-wave inversion qTC: 452 The study has been interpreted contemporaneously by me. Discharge Plan Discharge Clinical Impression: Chest pain, Hypertension, Chronic kidney disease (CKD) Patient Disposition: Home, Self-Care Additional Instructions: Your heart markers looking for signs of heart failure are improved when compared to yesterday, her heart markers looking for spine of a heart attack have remained unchanged, and your EKG is normal. Please contact your primary care provider to schedule a follow-up visit within 1-3 days. Return to the emergency department with any new worsening symptoms or concerns. Continue taking all of your medications as prescribed by your doctors. Prescriptions: No Action albuterol sulfate 90 mcg/actuation HFA aerosol inhaler 1 inh inhalation QID PRN (Reason: shortness of breath or wheezing) 30 Days Qty: 8.5 3RF Xigduo XR 10-1,000 mg tablet, IR - ER, biphasic 24hr 1 tab PO DAILY 0RF aspirin 81 mg Tablet,Delayed Release (Dr/Ec) 81 mg PO DAILY 0RF lamotrigine 100 mg tablet 100 mg PO DAILY 0RF Rx Instructions: take 1.5 tablets daily tramadol 50 mg tablet 50 mg PO Q6H PRN (Reason: pain) Qty: 20 0RF clonazepam 1 mg tablet 1 mg PO DAILY PRN (Reason: anxiety) 0RF omeprazole 20 mg capsule,delayed release(DR/EC) 20 mg PO DAILY Qty: 90 1RF amlodipine 10 mg tablet 10 mg PO DAILY 0RF furosemide 40 mg tablet 20 mg PO DAILY 0RF lisinopril 10 mg tablet 20 mg PO BID 0RF Hold Instructions: Resume on 01/21/21. Hold lisinopril until repeat BMP out patiently with PCP and follow-up with Nephrology. spironolactone 25 mg tablet 100 mg PO DAILY 0RF Protocol: Hold for SBP< HOLD for SBP < : 90 carvedilol [Coreg] 6.25 mg tablet 6.25 mg PO BID Qty: 60 2RF Rx Instructions: must administer with a meal/food
[2021-08-19] MEDS: carvediloL 6.25 MG TABLET PO (12:15)
[2021-08-19] MEDS: amLODIPine Besylate 10 MG TABLET PO (12:15)
[2021-08-19] MEDS: lisinopriL 40 MG TABLET PO (12:15)
[2021-08-19] MEDS: Furosemide 40 MG/4 ML VIAL IVPUSH (12:17)
[2021-08-19 12:18] VITALS: BP 174/110; PULSE 73
[2021-08-19] MEDS: Nitroglycerin 2 % Oint 1 GM Packet 0.5 INCH TRANSDERMA (12:18)
--- NOTE | 2021-08-19 12:19 | PHA.MEDREC ---
Pharmacy Consult ? Medication Reconciliation Pharmacy has completed the medication reconciliation. Med rec completed by [facility] 08/18/2021, there are no changes. Lilian Argueta, PharmD
[2021-08-19 12:51] VITALS: RESP 16
[2021-08-19] MEDS: Morphine Sulfate 4 MG/ML CARTRIDGE IVPUSH (12:51)
[2021-08-19 13:51] LABS: MANUAL DIFF FLAG NO
[2021-08-19 13:53] LABS: Basophils Percent Auto 0.4 % (0-2); Eosinophils Absolute Auto 0.1 X10*3/uL (0.0-0.4); Eosinophils Percent Auto 0.9 % (0-4); Hematocrit 39.1 % (37.0-47.0); Imm Gran Abs Auto 0.05 X10*3/uL (0.00-0.03); Imm Gran Pct Auto 0.5 % (0.0-0.4); Lymphocytes Percent Auto 17.9 % (20-40); Mean Corpuscular HGB Conc 35.8 g/dl (31.0-35.0); Mean Corpuscular Hemoglobin 32.4 pg (27.0-33.0); Mean Corpuscular Volume 90.5 fL (80.0-98.0); Mean Platelet Volume 9.3 fL (9.4-12.3); Monocytes Absolute Auto 0.8 X10*3/uL (0.1-1.2); Monocytes Percent Auto 6.8 % (2-11); Neutrophils Absolute Auto 8.2 x10*3/uL (2.0-8.3); Neutrophils Percent Auto 73.5 % (45-73); Platelet Count 386 X10*3/uL (160-400); Red Blood Count 4.32 X10*6/uL (4.20-5.50); Red Cell Distribution Width 14.7 % (11.0-16.0); White Blood Count 11.1 X10*3/uL (4.8-10.8)
[2021-08-19 14:01] LABS: Appearance Urine CLEAR; Color Urine YELLOW; Glucose Urine UA 100 MG/DL (NEG); Leukocyte Esterase Urine NEG (NEG); Nitrite Urine NEG (NEG); Specific Gravity - Urine 1.025 (1.005-1.025); UACC Culture Trigger NO; Urine Blood NEG (NEG); Urine Ketones NEG (NEG); Urine Protein 2+ MG/DL (NEG-TRACE)
[2021-08-19 14:03] LABS: UPreg QC Valid YES; Urine Pregnancy NEGATIVE (NEGATIVE)
[2021-08-19 14:10] LABS: Alanine Aminotransferase 13 U/L (0-31); Albumin Level 4.3 g/dL (3.5-5.0); Alkaline Phosphatase 90 U/L (39-117); Anion Gap 15 (12-20); Aspartate Amino Transferase 14 U/L (5-31); Bilirubin Total 1.3 mg/dL (0.0-1.0); Blood Urea Nitrogen 39 mg/dL (9-16); Calcium 9.6 mg/dL (8.4-10.2); Carbon Dioxide 24 mmol/L (22-29); Chloride 99 mmol/L (96-108); Creatinine Clr Calc Pharmacy 41.9; Estimated Glomerular Filt Rate 28; Glucose Random 199 mg/dL (60-115); Magnesium 2.1 mg/dL (1.6-2.6); Potassium 4.6 mmol/L (3.3-5.1); Sodium 133 mmol/L (135-145); Total Protein 7.1 g/dL (6.5-8.0)
[2021-08-19 14:16] LABS: Troponin-I High Sensitivity 30.2 ng/L (<3.5-17.0)
[2021-08-19 14:20] LABS: Bacteria Urine 1+ /LPF; RBC Urine 0 /HPF (0); Squamous Epithelial Cell Urine 4+ /LPF
[2021-08-19 14:45] LABS: B Type Natriuretic Peptide 266 pg/mL (<100)
[2021-08-19 14:56] VITALS: BP 161/101; PULSE 69; RESP 19; TEMP 35.7; O2SAT 99
[2021-08-19] MEDS: 0.9 % Sodium Chloride 1,000 ML 500 ML IV (15:12)
[2021-08-19 15:20] LABS: COVID-19 Test Negative (Negative); IDNOW Serial# 55D5AD1C
[2021-08-19 17:11] LABS: Anion Gap 13 (12-20); Blood Urea Nitrogen 37 mg/dL (9-16); Calcium 9.7 mg/dL (8.4-10.2); Carbon Dioxide 26 mmol/L (22-29); Chloride 100 mmol/L (96-108); Creatinine Clr Calc Pharmacy 41.9; Estimated Glomerular Filt Rate 28; Glucose Random 189 mg/dL (60-115); Potassium 4.6 mmol/L (3.3-5.1); Sodium 134 mmol/L (135-145)
[2021-08-19 17:18] LABS: Troponin-I High Sensitivity 24.1 ng/L (<3.5-17.0)
[2021-08-19] MEDS: traMADoL HCL 50 MG TABLET PO (17:37)
== END 2021-08-19 17:58 | disposition home or self-care (01) ==
PROVIDERS: Nurse Practitioner Family; Emergency Provider Emergency Medicine; PCP Nurse Practitioner Family
DX: R07.89 Other chest pain (principal); I12.9 Hypertensive chronic kidney disease with stage 1 through stage 4 chronic kidney disease, or unspecified chronic kidney disease; R06.02 Shortness of breath; N18.9 Chronic kidney disease, unspecified; F17.210 Nicotine dependence, cigarettes, uncomplicated; Z20.822 Contact with and (suspected) exposure to COVID-19; Z79.899 Other long term (current) drug therapy; Z71.6 Tobacco abuse counseling
CPT/HCPCS: 36415; 71046; 80048; 80053; 81001; 81003; 81025; 83735; 83880; 84484; 85025; 87635; 93005; 96361; 96374; 96375; 99284; J1940; J2270

== ENCOUNTER → 2021-09-27 09:56 | Outpatient (BNVA) | payer MEDICARE, MEDICAID, SELFPAY ==
[2021-09-24 12:00] VITALS: BP 190/120; BMI 29.0
== END ==
PROVIDERS: PCP Nurse Practitioner Family; Visit Provider Internal Medicine Endocrinology, Diabetes & Metabolism
DX: E11.65 Type 2 diabetes mellitus with hyperglycemia (principal); Z79.84 Long term (current) use of oral hypoglycemic drugs
CPT/HCPCS: 82947; 99202

== ENCOUNTER 2021-12-02 10:32 | Inpatient (IN) | payer MEDICARE, MEDICAID, SELFPAY ==
[2021-09-27 11:09] VITALS: BP 190/120; BMI 29.0
[2021-12-02] VITALS (17 sets, daily range): BP systolic 160–239; BP diastolic 94–171; PULSE 95–110; RESP 16–24; TEMP 35.6–36.9; O2SAT 95–98; BMI 26.3; BMI 27.6
--- NOTE | ~2021-12-02 | XR_ITS ---
EXAMINATION: XR CHEST CLINICAL INFORMATION: Shortness of breath and hypertension. COMPARISON: Chest radiograph 08/19/2021. TECHNIQUE: Frontal view of the chest was obtained. FINDINGS: Stable prominence of the cardiomediastinal silhouette. Unchanged platelike opacities in the left lower lobe and chronic blunting of the left costophrenic angle. No new focal airspace opacities. No pleural effusion or pneumothorax. No acute osseous abnormalities. Healed left-sided rib fractures. XR/XR chest 1V IMPRESSION: Stable examination when compared to 08/19/2021 with redemonstration of platelike opacities in the left lower lobe, likely related scarring or subsegmental atelectasis; and blunting of the left costophrenic angle, nonspecific, could be associated with pleural thickening or trace amount of pleural fluid.
--- NOTE | ~2021-12-02 | CT_ITS ---
EXAMINATION: CT HEAD WITHOUT CONTRAST CLINICAL INFORMATION: Headache and hypertension. Evaluate for bleeding. COMPARISON: CT head 09/15/2020. TECHNIQUE: Contiguous axial imaging was performed from the skull base to vertex without intravenous administration of contrast. This CT examination was performed using dose optimization techniques as appropriate, variously including the following: *Automated exposure control *Adjustment of mA and/or kV according to patient size (this includes techniques or standardized protocols for targeted exams where dose is matched to indication/reason for exam; i.e. extremities or head) *Use of iterative reconstruction technique DLP: 666 mGy-cm FINDINGS: There is no evidence of acute intracranial hemorrhage or edematous territorial infarction. A few foci of hypoattenuation in the periventricular and deep white matter are consistent with mild microangiopathy. Gu-white matter differentiation is preserved. The ventricles are normal in size and configuration. No evidence for obstructive hydrocephalus. No abnormal mass effect or midline shift. No extra-axial fluid collections. No acute soft tissue or osseous abnormalities. The mastoid air cells and paranasal sinuses are clear. CT/CT head/brain wo con IMPRESSION: No evidence of acute intracranial hemorrhage or edematous territorial infarction.
--- NOTE | 2021-12-02 10:55 | ECG_ITS ---
Test Reason : shortness of breaht Blood Pressure : / mmHG Vent. Rate : 102 BPM Atrial Rate : 102 BPM P-R Int : 146 ms QRS Dur : 092 ms QT Int : 370 ms P-R-T Axes : 066 001 158 degrees QTc Int : 482 ms Sinus tachycardia Biatrial enlargement Left ventricular hypertrophy with repolarization abnormality ( R in aVL , Sokolow-Abarca , Omar product , Romhilt-Peres ) Abnormal ECG When compared with ECG of 19-AUG-2021 07:54, No significant change was found Referred By: Mariel Gomez Electronically Signed By:AIRAM OVIEDO
--- NOTE | 2021-12-02 10:58 | ED_ITS ---
HPI - General Adult General Chief complaint: General Medical Stated complaint: HIGH BP 230/120 PER EMS Time Seen by Provider: 12/02/21 10:55 Source: patient and EMS Mode of arrival: EMS Limitations: no limitations History of Present Illness HPI narrative: 41-year-old female with past medical history of poorly controlled hypertension, PTSD, CKD, type 2 diabetes, CHF, bipolar, among others who presented to the ED c omplaining of shortness of breath, and high reading blood pressure with mild headache that started since yesterday, patient also has been complaining of orthopnea, PND, lower extremity swelling. Arrives today with systolic blood pressure in the 240s and diastolic blood pressure in the 140s. Currently patient has no chest pain. Related Data Home Medications Medication Instructions Recorded Confirmed aspirin 81 mg tablet,delayed 81 mg PO DAILY 09/14/20 12/02/21 release dapagliflozin 10 mg-metformin ER 1 tab PO DAILY 10/25/20 12/02/21 1,000 mg tablet,extended release 24hr (Xigduo XR) clonazepam 1 mg tablet 1 mg PO DAILY PRN anxiety 11/05/20 12/02/21 lisinopril 10 mg tablet 20 mg PO BID 06/18/21 12/02/21 Previous Rx's Medication Instructions Recorded carvedilol 6.25 mg tablet (Coreg) 6.25 mg PO BID #60 tabs 06/18/21 albuterol sulfate 90 mcg/actuation 1 inh inhalation QID PRN shortness 08/15/21 aerosol inhaler of breath or wheezing 30 days #8.5 grams blood sugar diagnostic (QnektTouch #100 ea 09/27/21 Ultra Test strips) dulaglutide 0.75 mg/0.5 mL 0.75 mg (0.5 mL) subcut QWEEK #2 mL 09/27/21 subcutaneous pen injector (Trulicity) lancets ([employer] UltraSoft #100 ea 09/27/21 Lancets) nifedipine 60 mg tablet,extended 120 mg PO DAILY 90 days #180 tabs 10/03/21 release 24 hr Allergies Allergy/AdvReac Type Severity Reaction Status Date / Time Cephalosporins Allergy Intermediate RASH ALL Verified 10/03/21 09:56 [CEPHALOSPORINS] OVER amoxicillin Allergy Unknown rash Verified 10/03/21 09:56 cefaclor [From Ceclor] Allergy Unknown RASH Verified 10/03/21 09:56 cephalexin Allergy Unknown rash Verified 10/03/21 09:56 cephradine [From VELOSEF] Allergy Unknown RASH Verified 10/03/21 09:56 Penicillins [PENICILLINS] Allergy Unknown RASH Verified 10/03/21 09:56 gabapentin [GABAPENTIN] AdvReac Unknown RESTLESS Verified 10/03/21 09:56 LEGS, Body becomes very uncomfortable Review of Systems Review of Systems: All other systems are reviewed and are negative Constitutional: Reports as per HPI and Reports no additional constitutional complaints Eyes: Reports as per HPI and Reports no additional eye complaints Reports system reviewed and no additional complaints, except as documented Cardiovascular: Reports as per HPI and Reports no additional cardiovascular complaints Respiratory: Reports as per HPI and Reports no additional respiratory complaints Gastrointestinal: Reports as per HPI and Reports no additional gastrointestinal complaints Genitourinary: Reports no additional female genitourinary complaints Musculoskeletal: Reports no additional musculoskeletal complaints Skin/Breast: Reports system reviewed and no additional complaints, except as docu Psychiatric: Reports no additional psychiatric complaints Endocrine: Reports no additional endocrine complaints Hematologic/Lymphatic: Reports no additional hematologic/lymphatic complaints Allergic/Immunologic: Reports no additional allergic/immunologic complaints Reports system reviewed and no additional complaints, except as documented and Reports Abnormal speech present PMFSH Past Medical History Medical History Anxiety Bipolar 1 disorder Cardiomyopathy CKD (chronic kidney disease) stage 2, GFR 60-89 ml/min Diabetes mellitus Eclampsia Fatty liver H/O mixed connective tissue disease Heart block AV second degree High cholesterol History of DVT (deep vein thrombosis) HTN (hypertension) Hypersomnia Lupus Migraines Nicotine dependence, cigarettes, uncomplicated (~1999) PTSD (post-traumatic stress disorder) Rheumatoid arthritis Sjogren's disease Surgical History History of bronchoscopy (~11/2020) History of cholecystectomy (~05/2014) History of hysterectomy Family History Family History Father Substance use disorder Mental health disorder Brother Substance use disorder Mental health disorder Brother Substance use disorder Mental health disorder Other Diabetes HTN (hypertension) Social History Social History Household Members: Family Household Members Other:: children Housing: House Are you a primary health care consultant to a significant other at home: No Do you presently have visiting nurse or other home services: No Alcohol intake: never Patient Tobacco Use Status: Current everyday Tobacco user Tobacco use type: Cigarette Cigarette Packs Per Day: 1 Cigarettes Per Day: 10.0 Years Smoked: 20 e-Cigarette/Vaping Use: Never Used Second Hand Smoke Exposure: No Use of substances other than those prescribed or required for medical reasons: No Substance Use Type: Marijuana Advance Directives: Yes Advance Directives on File: Yes Advance Directives Date on File: 06/03/21 Patient : No service: No Current occupational status: disabled Cognitive needs: No Hearing needs: No Vision needs: No Physical Exam ED Vital Signs: Vital Signs - 24 hr 12/02/21 10:45 12/02/21 11:05 12/02/21 12:26 Temperature 96.0 F L 98.2 F Pulse Rate 107 H 107 H 108 H Respiratory Rate 16 24 H Blood Pressure 237/152 H 227/171 H 239/152 H Pulse Oximetry 98 97 Oxygen Delivery Method Room Air Room Air 12/02/21 12:44 12/02/21 14:22 12/02/21 13:45 Temperature Pulse Rate 107 H 101 H 102 H Respiratory Rate 16 22 H Blood Pressure 210/150 H 217/144 H 224/153 H Pulse Oximetry 97 96 Oxygen Delivery Method Room Air Room Air 12/02/21 15:29 Temperature Pulse Rate 105 H Respiratory Rate Blood Pressure 233/157 H Pulse Oximetry Oxygen Delivery Method BMI result Body Mass Index 26.3 Vital signs have been reviewed as appeared to be correct. Blood pressure elevated. Heart rate normal. Respiration rate normal. Temperature normal. Oxygen saturation normal. Appearance: Alert. Oriented X3. No acute distress. Head: Normal external exam. Normocephalic. Atraumatic. No [place] signs noted. No raccoon eyes noted Eyes: PERRLA. EOMI. Conjunctiva and sclera normal. Eyelids normal. ENT: TM's Normal. Pharynx normal. Uvula midline. Moist mucous membranes. No trismus noted. No drooling noted. No muffled voice noted. Neck: Normal inspection. Neck supple. FROM. No adenopathy. Thyroid Normal. No meningeal signs. No neck mass noted. CVS: Normal heart rate and rhythm. Heart sound normal. No murmurs noted. Pulses normal throughout. Respiratory: No respiratory distress. Painless inspiration. Breath sounds normal. Bilateral basilar rales. Chest nontender. No accessory muscle usage noted or decreased air movement noted. Abdomen: Soft and nontender. Bowel sounds normal in all 4 quadrants. No distention noted. No organomegaly noted. No visible injury noted. Back: No CVA tenderness. Full range of motion noted. Skin: Skin warm and dry. Normal skin color. Normal skin turgor. No rashes/lesions/lacerations noted. Extremities: +1 lower extremity edema. Extremities exhibit normal range of motion. Extremities nontender. Neuro: Oriented X 3. Cranial nerve exam: II-XII are grossly intact No motor deficit. No sensory deficit. Reflexes normal. Course Course Course Narrative: 41-year-old female history of CHF and poorly controlled hypertension presented with elevated high blood pressure and CHF exacerbation despite patient is compliant with her medication. Physical exam and finding are consistent with congestive heart failure, patient was given nitroglycerin, amlodipine. Reevaluation(s) Reevaluation #1: Patient is still hypertensive and complaining of headache will start the patient on nicardipine IV drip and will upgrade the admission to ICU. Dr. Abraham and Dr. Ashton were consulted and input is appreciated. Nitroprusside drip is not available in the hospital will start the patient and nicardipine drip instead slowly and gradually monitoring the blood pressure. Medical Decision Making Medical Records Medical records reviewed: Yes I reviewed the patient's medical records. Lab Data Lab results reviewed: Yes I reviewed the patient's lab results. Result diagrams: 12/02/21 12:20 12/02/21 12:20 Labs: Lab Results 12/02/21 12/02/21 12/02/21 Range/Units 12:20 12:20 12:20 WBC 14.0 H (4.8-10.8) X10*3/uL RBC 4.01 L (4.20-5.50) X10*6/uL Hgb 13.1 (12.0-16.0) g/dl Hct 35.9 L (37.0-47.0) % MCV 89.5 (80.0-98.0) fL MCH 32.7 (27.0-33.0) pg MCHC 36.5 H (31.0-35.0) g/dl RDW 15.0 (11.0-16.0) % Plt Count 313 (160-400) X10*3/uL MPV 9.4 (9.4-12.3) fL Immature Gran % (Auto) 0.4 (0.0-0.4) % Neut % (Auto) 80.3 H (45-73) % Lymph % (Auto) 12.1 L (20-40) % [place] % (Auto) 5.6 (2-11) % Eos % (Auto) 1.1 (0-4) % Baso % (Auto) 0.5 (0-2) % Lymph # (Auto) 1.7 (1.2-4.9) X10*3/uL [place] # (Auto) 0.8 (0.1-1.2) X10*3/uL Eos # (Auto) 0.2 (0.0-0.4) X10*3/uL Baso # (Auto) 0.1 (0.0-0.2) X10*3/uL Abs Immat Gran (auto) 0.05 H (0.00-0.03) X10*3/uL Absolute Neuts (auto) 11.3 H (2.0-8.3) x10*3/uL Absolute Nucleated RBC 0.000 (0.0-0.012) X10*3/uL Nucleated RBC % (auto) 0.0 (0.0-0.2) /100WBC Sodium 140 (135-145) mmol/L Potassium 3.6 D (3.3-5.1) mmol/L Chloride 100 (96-108) mmol/L Carbon Dioxide 29 (22-29) mmol/L Anion Gap 15 (12-20) BUN 25 H (9-16) mg/dL Creatinine 1.69 H (0.5-1.4) mg/dL Estim Creat Clear Calc 47.5 Estimated GFR 34 Random Glucose 178 H (60-115) mg/dL Calcium 9.3 (8.4-10.2) mg/dL Total Bilirubin 1.6 H (0.0-1.0) mg/dL Direct Bilirubin 0.5 (0.0-0.5) mg/dL AST 37 H D (5-31) U/L ALT 41 H (0-31) U/L Alkaline Phosphatase 128 H D (39-117) U/L Troponin I High Sens 81.8 H* D (<3.5-17.0) ng/L B-Natriuretic Peptide (<100) pg/mL Total Protein 6.5 (6.5-8.0) g/dL Albumin 4.1 (3.5-5.0) g/dL Lipase 9 (8-78) U/L Urine Color Urine Appearance Urine pH (5.0-8.0) Ur Specific [place] (1.005-1.025) Urine Protein (Neg-Trace) mg/dL Urine Glucose (UA) (Negative) mg/dL Urine Ketones (Negative) mg/dL Urine Blood (Negative) Urine Nitrite (Negative) Ur Leukocyte Esterase (Negative) Urine RBC (0-2) /HPF Urine WBC (0-5) /HPF Ur Squamous Epith Cells (0-2) /HPF Urine Bacteria (None Seen) Hyaline Casts (0-2) /LPF COVID-19 (TOM) (Negative) COVID-19 Clin Com 12/02/21 12/02/21 12/02/21 Range/Units 12:20 12:20 12:24 WBC (4.8-10.8) X10*3/uL RBC (4.20-5.50) X10*6/uL Hgb (12.0-16.0) g/dl Hct (37.0-47.0) % MCV (80.0-98.0) fL MCH (27.0-33.0) pg MCHC (31.0-35.0) g/dl RDW (11.0-16.0) % Plt Count (160-400) X10*3/uL MPV (9.4-12.3) fL Immature Gran % (Auto) (0.0-0.4) % Neut % (Auto) (45-73) % Lymph % (Auto) (20-40) % [place] % (Auto) (2-11) % Eos % (Auto) (0-4) % Baso % (Auto) (0-2) % Lymph # (Auto) (1.2-4.9) X10*3/uL [place] # (Auto) (0.1-1.2) X10*3/uL Eos # (Auto) (0.0-0.4) X10*3/uL Baso # (Auto) (0.0-0.2) X10*3/uL Abs Immat Gran (auto) (0.00-0.03) X10*3/uL Absolute Neuts (auto) (2.0-8.3) x10*3/uL Absolute Nucleated RBC (0.0-0.012) X10*3/uL Nucleated RBC % (auto) (0.0-0.2) /100WBC Sodium (135-145) mmol/L Potassium (3.3-5.1) mmol/L Chloride (96-108) mmol/L Carbon Dioxide (22-29) mmol/L Anion Gap (12-20) BUN (9-16) mg/dL Creatinine (0.5-1.4) mg/dL Estim Creat Clear Calc Estimated GFR Random Glucose (60-115) mg/dL Calcium (8.4-10.2) mg/dL Total Bilirubin (0.0-1.0) mg/dL Direct Bilirubin (0.0-0.5) mg/dL AST (5-31) U/L ALT (0-31) U/L Alkaline Phosphatase (39-117) U/L Troponin I High Sens (<3.5-17.0) ng/L B-Natriuretic Peptide 3564 H (<100) pg/mL Total Protein (6.5-8.0) g/dL Albumin (3.5-5.0) g/dL Lipase (8-78) U/L Urine Color Yellow Urine Appearance Clear Urine pH 7.0 (5.0-8.0) Ur Specific [place] 1.010 (1.005-1.025) Urine Protein 300 (3+) H (Neg-Trace) mg/dL Urine Glucose (UA) 100 H (Negative) mg/dL Urine Ketones Negative (Negative) mg/dL Urine Blood Negative (Negative) Urine Nitrite Negative (Negative) Ur Leukocyte Esterase Negative (Negative) Urine RBC 0-2 (0-2) /HPF Urine WBC 0-5 (0-5) /HPF Ur Squamous Epith Cells 0-2 (0-2) /HPF Urine Bacteria None Seen (None Seen) Hyaline Casts 0-2 (0-2) /LPF COVID-19 (TOM) Negative (Negative) COVID-19 Clin Com See Note Imaging Data Chest x-ray: Attestation: I personally reviewed and interpreted this imaging study as follows: Radiologist's impression: Stable examination when compared to 08/19/2021 with redemonstration of platelike opacities in the left lower lobe, likely related scarring or subsegmental atelectasis; and blunting of the left costophrenic angle, nonspecific, could be associated with pleural thickening or trace amount of pleural fluid. ? CT scan - head: Attestation: I personally reviewed and interpreted this imaging study as follows: Radiologist's impression: There is no evidence of acute intracranial hemorrhage or edematous territorial infarction. A few foci of hypoattenuation in the periventricular and deep white matter are consistent with mild microangiopathy. Gu-white matter differentiation is preserved. The ventricles are normal in size and configuration. No evidence for obstructive hydrocephalus. No abnormal mass effect or midline shift. No extra-axial fluid collections. No acute soft tissue or osseous abnormalities. The mastoid air cells and paranasal sinuses are clear. ? Critical Care Time Critical Care Time Critical Care Time: Yes Total Critical Care Time: 60 Attestation: I spent 60 minutes providing critical care service to the patient, this including time spent at the bedside to evaluate the patient, reassess the patient, monitoring vital signs, review labs, and radiographic studies, counseling the patient/family, discussing the case with consultants, disposition the patient. Discharge Plan Discharge Clinical Impression: Hypertensive urgency, Congestive heart failure Patient Disposition: Admitted As Inpatient
[2021-12-02] MEDS: Morphine Sulfate 2 MG/ML CARTRIDGE IVPUSH (11:06)
[2021-12-02] MEDS: Nitroglycerin 2 % Oint 1 GM Packet 1 INCH TRANSDERMA (11:08)
[2021-12-02] MEDS: Furosemide 40 MG/4 ML VIAL IVPUSH (11:08)
[2021-12-02] MEDS: amLODIPine Besylate 5 MG TABLET PO (11:08)
--- NOTE | 2021-12-02 11:09 | PHA.MEDREC ---
Pharmacy Consult ? Medication Reconciliation Pharmacy has completed the medication reconciliation. Patient admits to missing last nights trulicity dose. Not sure if patient wants to bring in.
[2021-12-02 12:26] LABS: MANUAL DIFF FLAG NO
[2021-12-02 12:28] LABS: Basophils Absolute Auto 0.1 X10*3/uL (0.0-0.2); Basophils Percent Auto 0.5 % (0-2); Eosinophils Absolute Auto 0.2 X10*3/uL (0.0-0.4); Eosinophils Percent Auto 1.1 % (0-4); Hematocrit 35.9 % (37.0-47.0); Hemoglobin 13.1 g/dl (12.0-16.0); Imm Gran Abs Auto 0.05 X10*3/uL (0.00-0.03); Imm Gran Pct Auto 0.4 % (0.0-0.4); Lymphocytes Absolute Auto 1.7 X10*3/uL (1.2-4.9); Lymphocytes Percent Auto 12.1 % (20-40); Mean Corpuscular HGB Conc 36.5 g/dl (31.0-35.0); Mean Corpuscular Hemoglobin 32.7 pg (27.0-33.0); Mean Corpuscular Volume 89.5 fL (80.0-98.0); Mean Platelet Volume 9.4 fL (9.4-12.3); Monocytes Absolute Auto 0.8 X10*3/uL (0.1-1.2); Monocytes Percent Auto 5.6 % (2-11); Neutrophils Absolute Auto 11.3 x10*3/uL (2.0-8.3); Neutrophils Percent Auto 80.3 % (45-73); Platelet Count 313 X10*3/uL (160-400); Red Blood Count 4.01 X10*6/uL (4.20-5.50)
[2021-12-02 12:32] LABS: Appearance Urine Clear; Color Urine Yellow; Glucose Urine UA 100 mg/dL (Negative); Leukocyte Esterase Urine Negative (Negative); Nitrite Urine Negative (Negative); Urine Blood Negative (Negative); Urine Ketones Negative (Negative); Urine Protein 300 (3+) mg/dL (Neg-Trace)
[2021-12-02 12:37] LABS: Bacteria Urine None Seen (None Seen); Hyaline Casts Urine 0-2 /LPF (0-2); RBC Urine 0-2 /HPF (0-2); Squamous Epithelial Cell Urine 0-2 /HPF (0-2); WBC Urine 0-5 /HPF (0-5)
[2021-12-02 12:44] LABS: Alanine Aminotransferase 41 U/L (0-31); Albumin Level 4.1 g/dL (3.5-5.0); Alkaline Phosphatase 128 U/L (39-117); Anion Gap 15 (12-20); Aspartate Amino Transferase 37 U/L (5-31); Bilirubin Direct 0.5 mg/dL (0.0-0.5); Bilirubin Total 1.6 mg/dL (0.0-1.0); Blood Urea Nitrogen 25 mg/dL (9-16); Calcium 9.3 mg/dL (8.4-10.2); Carbon Dioxide 29 mmol/L (22-29); Chloride 100 mmol/L (96-108); Creatinine Clr Calc Pharmacy 47.5; Estimated Glomerular Filt Rate 34; Glucose Random 178 mg/dL (60-115); Lipase 9 U/L (8-78); Potassium 3.6 mmol/L (3.3-5.1); Sodium 140 mmol/L (135-145); Total Protein 6.5 g/dL (6.5-8.0)
[2021-12-02] MEDS: amLODIPine Besylate 10 MG TABLET PO (12:47)
[2021-12-02 12:48] LABS: COVID-19 Test Negative (Negative)
[2021-12-02 12:51] LABS: B Type Natriuretic Peptide 3564 pg/mL (<100); Troponin-I High Sensitivity 81.8 ng/L (<3.5-17.0)
--- NOTE | 2021-12-02 14:36 | PM.CCHP ---
History of Present Illness Date of Service: 12/02/21 Attending physician on admission: Mariel Gomez Chief Complaint: Shortness of breath 41-year-old female who is an insulin-dependent type 2 diabetic with moderate obesity severe difficult to control hypertension with known hypertensive cardiovascular disease but nonischemic with a negative cardiac catheterization who because of poorly controlled hypertension with pressures in excess of 250 systolic presented with syndrome consistent with congestive heart failure BNP of 3000 she also has stage II renal failure with creatinine clearance estimated in the mid 40s my bedside echo documenting ejection fraction of about 45% with concentric left ventricular hypertrophy mild to moderate diffuse hypokinesis but no primary valve or pericardial disease of significance EKG with normal sinus rhythm left ventricular enlargement with diffuse nonspecific ST-T changes Review of Systems Review of Systems: Yes all other systems are reviewed and are negative [facility] Past Medical History Medical History Anxiety Bipolar 1 disorder Cardiomyopathy CKD (chronic kidney disease) stage 2, GFR 60-89 ml/min Diabetes mellitus Eclampsia Fatty liver H/O mixed connective tissue disease Heart block AV second degree High cholesterol History of DVT (deep vein thrombosis) HTN (hypertension) Hypersomnia Lupus Migraines Nicotine dependence, cigarettes, uncomplicated (~1999) PTSD (post-traumatic stress disorder) Rheumatoid arthritis Sjogren's disease Family History Family History Father Substance use disorder Mental health disorder Brother Substance use disorder Mental health disorder Brother Substance use disorder Mental health disorder Other Diabetes HTN (hypertension) Surgical History Surgical History History of bronchoscopy (~11/2020) History of cholecystectomy (~05/2014) History of hysterectomy Social History Social History Household Members: Family Household Members Other:: children Housing: House Are you a primary care specialist to a significant other at home: No Do you presently have visiting nurse or other home services: No Alcohol intake: never Patient Tobacco Use Status: Current everyday Tobacco user Tobacco use type: Cigarette Cigarette Packs Per Day: 1 Cigarettes Per Day: 10.0 Years Smoked: 20 e-Cigarette/Vaping Use: Never Used Second Hand Smoke Exposure: No Use of substances other than those prescribed or required for medical reasons: No Substance Use Type: Marijuana Advance Directives: Yes Advance Directives on File: Yes Advance Directives Date on File: 06/03/21 Patient : No service: No Current occupational status: disabled Cognitive needs: No Hearing needs: No Vision needs: No Meds Allergies Allergy/AdvReac Type Severity Reaction Status Date / Time Cephalosporins Allergy Intermediate RASH ALL Verified 10/03/21 09:56 [CEPHALOSPORINS] OVER amoxicillin Allergy Unknown rash Verified 10/03/21 09:56 cefaclor [From Ceclor] Allergy Unknown RASH Verified 10/03/21 09:56 cephalexin Allergy Unknown rash Verified 10/03/21 09:56 cephradine [From VELOSEF] Allergy Unknown RASH Verified 10/03/21 09:56 Penicillins [PENICILLINS] Allergy Unknown RASH Verified 10/03/21 09:56 gabapentin [GABAPENTIN] AdvReac Unknown RESTLESS Verified 10/03/21 09:56 LEGS, Body becomes very uncomfortable Active Medications: Current Medications Pharmacy Consult (Consult Rx Perform Med Rec) 1 each MISCELLANE ONCE PRN PRN Reason: Consult order Home Medications Medication Instructions Recorded Confirmed Last Taken Type aspirin 81 mg tablet,delayed 81 mg PO DAILY 09/14/20 12/02/21 11/24/21 History release dapagliflozin 10 mg-metformin ER 1 tab PO DAILY 10/25/20 12/02/21 11/24/21 History 1,000 mg tablet,extended release 24hr (Xigduo XR) clonazepam 1 mg tablet 1 mg PO DAILY PRN anxiety 11/05/20 12/02/21 11/24/21 History lisinopril 10 mg tablet 20 mg PO BID 06/18/21 12/02/21 11/24/21 History Physical Exam Vital Signs: Vital Signs: Last Vital Signs Temp 98.2 F 12/02/21 12:26 Pulse 101 H 12/02/21 14:22 Resp 22 H 12/02/21 14:22 BP 217/144 H 12/02/21 14:22 Pulse Ox 96 12/02/21 14:22 O2 Del Method 12/02/21 14:22 BMI result Body Mass Index 26.3 Awake alert oriented and nonfocal neurologic findings Bedside echo defining concentric left ventricular hypertrophy with moderate diffuse hypokinesis consistent with a hypertensive cardiomyopathy Abdomen soft with no organomegaly no bruits Chest by chest x-ray and by exam without adventitious sounds No peripheral edema but there was a past history of right lower extremity DVT at the time she had fell and had a hip fracture Results Labs CBC and Chem 7: 12/02/21 12:20 12/02/21 12:20 Labs: Laboratory Results - last 24 hr 12/02/21 12/02/21 12/02/21 12:20 12:20 12:20 MCV 89.5 MCH 32.7 MCHC 36.5 H RDW 15.0 Plt Count 313 MPV 9.4 Immature Gran % (Auto) 0.4 Neut % (Auto) 80.3 H Lymph % (Auto) 12.1 L [place] % (Auto) 5.6 Eos % (Auto) 1.1 Baso % (Auto) 0.5 Lymph # (Auto) 1.7 [place] # (Auto) 0.8 Eos # (Auto) 0.2 Baso # (Auto) 0.1 Abs Immat Gran (auto) 0.05 H Absolute Neuts (auto) 11.3 H Absolute Nucleated RBC 0.000 Nucleated RBC % (auto) 0.0 Anion Gap 15 Estim Creat Clear Calc 47.5 Estimated GFR 34 Random Glucose 178 H Calcium 9.3 Total Bilirubin 1.6 H Direct Bilirubin 0.5 AST 37 H D ALT 41 H Alkaline Phosphatase 128 H D B-Natriuretic Peptide 3564 H Total Protein 6.5 Albumin 4.1 Lipase 9 Urine Color Urine Appearance Urine pH Ur Specific [place] Urine Protein Urine Glucose (UA) Urine Ketones Urine Blood Urine Nitrite Ur Leukocyte Esterase Urine RBC Urine WBC Ur Squamous Epith Cells Urine Bacteria Hyaline Casts COVID-19 (TOM) COVID-19 Clin Com 12/02/21 12/02/21 12:20 12:24 MCV MCH MCHC RDW Plt Count MPV Immature Gran % (Auto) Neut % (Auto) Lymph % (Auto) [place] % (Auto) Eos % (Auto) Baso % (Auto) Lymph # (Auto) [place] # (Auto) Eos # (Auto) Baso # (Auto) Abs Immat Gran (auto) Absolute Neuts (auto) Absolute Nucleated RBC Nucleated RBC % (auto) Anion Gap Estim Creat Clear Calc Estimated GFR Random Glucose Calcium Total Bilirubin Direct Bilirubin AST ALT Alkaline Phosphatase B-Natriuretic Peptide Total Protein Albumin Lipase Urine Color Yellow Urine Appearance Clear Urine pH 7.0 Ur Specific [place] 1.010 Urine Protein 300 (3+) H Urine Glucose (UA) 100 H Urine Ketones Negative Urine Blood Negative Urine Nitrite Negative Ur Leukocyte Esterase Negative Urine RBC 0-2 Urine WBC 0-5 Ur Squamous Epith Cells 0-2 Urine Bacteria None Seen Hyaline Casts 0-2 COVID-19 (TOM) Negative COVID-19 Clin Com See Note Imaging Radiologist's Impressions: Impressions Chest X-Ray 12/02/21 11:17 IMPRESSION: Stable examination when compared to 08/19/2021 with redemonstration of platelike opacities in the left lower lobe, likely related scarring or subsegmental atelectasis; and blunting of the left costophrenic angle, nonspecific, could be associated with pleural thickening or trace amount of pleural fluid. Head CT 12/02/21 11:25 IMPRESSION: No evidence of acute intracranial hemorrhage or edematous territorial infarction. Assessment and Plan (1) Hypertensive urgency: Status: Acute (2) Congestive heart failure: Status: Acute (3) Low TSH level: Status: Acute (4) Hyperkalemia: Status: Acute (5) Acute kidney injury superimposed on CKD: Status: Acute (6) COVID: Status: Acute (7) Chest pain: Status: Acute (8) CKD (chronic kidney disease): Status: Acute (9) CRP elevated: Status: Acute (10) Joint pain: Status: Acute (11) UTI (urinary tract infection): Status: Acute (12) Elevated troponin: Status: Acute (13) Uncontrolled hypertension: Status: Acute (14) Cardiomyopathy: Status: Acute (15) Nicotine dependence, cigarettes, uncomplicated: Status: Acute (16) High cholesterol: Status: Acute (17) Fatty liver: Status: Acute (18) Diabetes mellitus: Status: Acute (19) H/O mixed connective tissue disease: Status: Acute (20) Bipolar 1 disorder: Status: Acute Plan So it because we do not have nitroprusside I am going to start her on a nicardipine drip in addition to her oral medicines which I will titrate
[2021-12-02] MEDS: Morphine Sulfate 2 MG/ML CARTRIDGE 1 MG IVPUSH (15:24)
[2021-12-02] MEDS: niCARdipine HCL 25 MG in 0.9 % Sodium Chloride 250 ML 26 MG IVCONT ×2 (15:29→21:35)
[2021-12-02] MEDS: ondansetron HCL 4 MG/2 ML VIAL IVPUSH (17:34)
[2021-12-02] MEDS: Heparin Sodium,Porcine 5,000 UNIT/ML VIAL 5000 UNIT SUBCUT (19:34)
[2021-12-02] MEDS: Acetaminophen 325 MG TABLET 975 MG PO (20:11)
[2021-12-02] MEDS: diphenhydrAMINE HCL 50 MG/ML VIAL 25 MG IVPUSH (20:12)
[2021-12-02] MEDS: Metoclopramide HCl 10 MG/2 ML VIAL IVPUSH (20:16)
[2021-12-02] MEDS: Lactated Ringers 500 ML 999 ML IV (20:27)
[2021-12-02] MEDS: Nicotine 14 MG PATCH.TD24 TRANSDERMA (20:28)
[2021-12-02] MEDS: carvediloL 6.25 MG TABLET PO (21:15)
[2021-12-02 21:22] LABS: Glucose, Whole Blood 239 mg/dL (60-115)
[2021-12-02] MEDS: Insulin Lispro 100 UNIT/ML 3 ML VIAL SUBCUT (21:24)
[2021-12-02 22:46] LABS: Troponin-I High Sensitivity 74.4 ng/L (<3.5-17.0)
[2021-12-02 22:53] LABS: Glucose, Whole Blood 117 mg/dL (60-115)
[2021-12-02] MEDS: Furosemide 20 MG/2 ML VIAL IVPUSH (23:58)
[2021-12-03] VITALS (23 sets, daily range): BP systolic 136–184; BP diastolic 91–122; PULSE 74–100; RESP 12–23; TEMP 36.3–37.1; O2SAT 92–99; BMI 27.4
--- NOTE | 2021-12-03 02:09 | PC.NURSE ---
PT TO ICU AT 2210 IN NO ACUTE DISTRESS. A&O X3. DENIES PAIN. NICARDIPINE DRIP AT 2.5 MG/HR AND SHUT OFF FOR SBP <170. REMAINS OFF. SBP NOW 150'S-160'S. PT RECEIVED LASIX 20 MG IV SINCE ARRIVAL. HAS PUT OUT 1300 ML OF URINE SINCE ARRIVAL IN ICU. SPIKE MCCALL AWARE OF BP. NO RESP DISTRESS. O2 SAT MID 90'S ON ROOM AIR. PT HAS ORTHOPNEA BUT IMPROVED. LUNGS ARE CLEAR. MONITOR SHOWS NSR, RATE 80'S, NO ECTOPY.
[2021-12-03] MEDS: diphenhydrAMINE HCL 50 MG/ML VIAL 25 MG IVPUSH (03:35)
[2021-12-03] MEDS: Metoclopramide HCl 10 MG/2 ML VIAL 5 MG IVPUSH (03:40)
[2021-12-03] MEDS: Acetaminophen 325 MG TABLET 975 MG PO (03:40)
[2021-12-03] MEDS: Heparin Sodium,Porcine 5,000 UNIT/ML VIAL 5000 UNIT SUBCUT ×3 (03:42→19:29)
--- NOTE | 2021-12-03 05:59 | PC.NURSE ---
CARDENE DRIP WAS OFF BUT RESTARTED FOR HIGH BP. INFUSING AT 2.5 MG/HR. PT C/O 01/13 HEADACHE AND RECEIVED TYLENOL PO, REGLAN IV AND BENEDRYL IV WITH GOOD EFFECT TO BRING INTENSITY DOWN TO 4/10. PT TALKING ON THE PHONE WITH HER MOTHER. NO ACUTE RESP DISTRESS. O2 SAT 95% ON ROOM AIR.
[2021-12-03 06:04] LABS: MANUAL DIFF FLAG NO
[2021-12-03 06:11] LABS: Basophils Absolute Auto 0.1 X10*3/uL (0.0-0.2); Basophils Percent Auto 0.4 % (0-2); Eosinophils Absolute Auto 0.2 X10*3/uL (0.0-0.4); Eosinophils Percent Auto 1.9 % (0-4); Hematocrit 33.7 % (37.0-47.0); Hemoglobin 12.4 g/dl (12.0-16.0); Imm Gran Abs Auto 0.05 X10*3/uL (0.00-0.03); Imm Gran Pct Auto 0.4 % (0.0-0.4); Lymphocytes Absolute Auto 1.7 X10*3/uL (1.2-4.9); Lymphocytes Percent Auto 13.4 % (20-40); Mean Corpuscular HGB Conc 36.8 g/dl (31.0-35.0); Mean Corpuscular Hemoglobin 32.7 pg (27.0-33.0); Mean Corpuscular Volume 88.9 fL (80.0-98.0); Mean Platelet Volume 10.2 fL (9.4-12.3); Monocytes Absolute Auto 0.8 X10*3/uL (0.1-1.2); Neutrophils Absolute Auto 9.7 x10*3/uL (2.0-8.3); Neutrophils Percent Auto 77.9 % (45-73); Platelet Count 320 X10*3/uL (160-400); Red Blood Count 3.79 X10*6/uL (4.20-5.50); White Blood Count 12.4 X10*3/uL (4.8-10.8)
[2021-12-03 06:26] LABS: Alanine Aminotransferase 32 U/L (0-31); Albumin Level 3.8 g/dL (3.5-5.0); Alkaline Phosphatase 107 U/L (39-117); Anion Gap 16 (12-20); Aspartate Amino Transferase 23 U/L (5-31); Bilirubin Direct 0.5 mg/dL (0.0-0.5); Bilirubin Total 1.7 mg/dL (0.0-1.0); Blood Urea Nitrogen 21 mg/dL (9-16); Calcium 8.8 mg/dL (8.4-10.2); Carbon Dioxide 29 mmol/L (22-29); Chloride 97 mmol/L (96-108); Creatinine Clr Calc Pharmacy 53.2; Estimated Glomerular Filt Rate 38; Glucose Random 158 mg/dL (60-115); Magnesium 1.8 mg/dL (1.6-2.6); Potassium 3.2 mmol/L (3.3-5.1); Sodium 139 mmol/L (135-145); Total Protein 6.2 g/dL (6.5-8.0)
[2021-12-03 06:28] LABS: B Type Natriuretic Peptide 2357 pg/mL (<100)
[2021-12-03 06:41] LABS: D Dimer High Sensitivity 188 NG/ML
[2021-12-03 07:52] LABS: Glucose, Whole Blood 152 mg/dL (60-115)
[2021-12-03] MEDS: Spironolactone 25 MG TABLET 12.5 MG PO (08:05)
[2021-12-03] MEDS: lisinopriL 20 MG TABLET PO ×2 (08:05→21:21)
[2021-12-03] MEDS: Aspirin Enteric Coated 81 MG TABLET.DR PO (08:05)
[2021-12-03] MEDS: carvediloL 12.5 MG TABLET PO ×2 (08:05→21:20)
[2021-12-03] MEDS: NIFEdipine ER 60 MG TAB.ER.24 120 MG PO (08:05)
[2021-12-03] MEDS: Nicotine 14 MG PATCH.TD24 TRANSDERMA (08:05)
[2021-12-03] MEDS: Insulin Lispro 100 UNIT/ML 3 ML VIAL SUBCUT ×3 (08:06→21:20)
--- NOTE | 2021-12-03 09:25 | MHC.CLN ---
RE: CONSULT PT REPORTED 14-23# WT LOSS PER NSG ADMISSION ASSESSMENT PREVIOUS WT HX REVEALS: 79.5KG (12/03/21) 85.2KG (06/01/21) PT WITH 7% NONSIGNIFICANT WT LOSS X 6 MONTHS BMI 27.5-OVER WEIGHT FOR HT PT'S WT REMAINS ON LOWER END OF UBW RANGE NO NEW ORDERS AT THIS TIME MONITOR PO INTAKE CLOSELY
[2021-12-03] MEDS: Butalb/Acetamin/Caff 50/325/40 TABLET 1 TAB PO ×2 (09:56→19:39)
[2021-12-03 11:21] LABS: Glucose, Whole Blood 191 mg/dL (60-115)
--- NOTE | 2021-12-03 13:06 | PM.CCPN ---
Subjective Subjective Date of Service: 12/03/21 Interval History: 41-year-old female with poorly controlled hypertension and a hypertension related secondary hypertrophic cardiomyopathy 45% ejection fraction also chronic stage III renal failure and she has a combined issue with type 2 diabetes of true metabolic syndrome and smokes still came in yesterday with shortness of breath elevated BNP and and mild hypokalemia and she was started on a nicardipine drip bringing out her blood pressure from the level of about 225 down to approximately 160 systolic she did well no dyspnea noted improvement in the BNP negative troponins EKG just reflecting left ventricular enlargement by voltage with diffuse nonspecific ST-T changes there was no segmental wall motion abnormality of the left ventricle and her cath report showed no coronary disease from just a few months ago She developed a my a what sounds like her migraine but she developed a right field cut and then she felt some numbness and tingling on the right side still probably consistent with migraine and in light of this and her concerns and the recent acute hypertension we will probably reimage her but again without contrast and just treat the migraine symptomatic Sulma I am just afraid of anything that in a will create any cardiovascular issues hemodynamically She has been off the nicardipine and all I did was increased the Coreg from 6.25-12.5 mg and due to the hypokalemia I added spironolactone at 25 mg daily Critical Care Time (minutes): 30 Physical Exam Vital Signs: Vital Signs: Last Vital Signs Temp 97.8 F 12/03/21 12:00 Pulse 80 12/03/21 12:00 Resp 21 H 12/03/21 12:00 BP 154/104 H 12/03/21 12:00 Pulse Ox 95 12/03/21 12:00 O2 Del Method 12/03/21 12:00 BMI result Body Mass Index 27.4 Awake and and alert no cranial nerve deficit the except for a little bit of a right-sided field cut and no motor deficit bilaterally Chest is clear no accessory muscle use no adventitious sounds Good bilateral carotid upstrokes no bruits no neck vein distension no gallops No peripheral edema Objective Data Labs CBC & Chem 7: 12/03/21 05:40 12/03/21 05:40 Labs: Laboratory Results - last 24 hr 12/02/21 12/02/21 12/02/21 21:19 22:14 22:49 WBC RBC Hgb Hct MCV MCH MCHC RDW Plt Count MPV Immature Gran % (Auto) Neut % (Auto) Lymph % (Auto) Stearns % (Auto) Eos % (Auto) Baso % (Auto) Lymph # (Auto) Stearns # (Auto) Eos # (Auto) Baso # (Auto) Abs Immat Gran (auto) Absolute Neuts (auto) Absolute Nucleated RBC Nucleated RBC % (auto) D-Dimer High Sensitivty Sodium Potassium Chloride Carbon Dioxide Anion Gap BUN Creatinine Estim Creat Clear Calc Estimated GFR POC Glucose 239 H 117 H Random Glucose Calcium Phosphorus Magnesium Total Bilirubin Direct Bilirubin AST ALT Alkaline Phosphatase Troponin I High Sens 74.4 H* B-Natriuretic Peptide Total Protein Albumin 12/03/21 12/03/21 12/03/21 05:40 05:40 05:40 WBC 12.4 H RBC 3.79 L Hgb 12.4 Hct 33.7 L MCV 88.9 MCH 32.7 MCHC 36.8 H RDW 15.0 Plt Count 320 MPV 10.2 Immature Gran % (Auto) 0.4 Neut % (Auto) 77.9 H Lymph % (Auto) 13.4 L Ste[place]s % (Auto) 6.0 Eos % (Auto) 1.9 Baso % (Auto) 0.4 Lymph # (Auto) 1.7 Stearns # (Auto) 0.8 Eos # (Auto) 0.2 Baso # (Auto) 0.1 Abs Immat Gran (auto) 0.05 H Absolute Neuts (auto) 9.7 H Absolute Nucleated RBC 0.000 Nucleated RBC % (auto) 0.0 D-Dimer High Sensitivty Sodium 139 Potassium 3.2 L Chloride 97 Carbon Dioxide 29 Anion Gap 16 BUN 21 H Creatinine 1.54 H Estim Creat Clear Calc 53.2 Estimated GFR 38 POC Glucose Random Glucose 158 H Calcium 8.8 Phosphorus 4.0 Magnesium 1.8 Total Bilirubin 1.7 H Direct Bilirubin 0.5 AST 23 ALT 32 H Alkaline Phosphatase 107 Troponin I High Sens B-Natriuretic Peptide 2357 H Total Protein 6.2 L Albumin 3.8 12/03/21 12/03/21 12/03/21 05:40 07:48 11:16 WBC RBC Hgb Hct MCV MCH MCHC RDW Plt Count MPV Immature Gran % (Auto) Neut % (Auto) Lymph % (Auto) [place]s % (Auto) Eos % (Auto) Baso % (Auto) Lymph # (Auto) Stearns # (Auto) Eos # (Auto) Baso # (Auto) Abs Immat Gran (auto) Absolute Neuts (auto) Absolute Nucleated RBC Nucleated RBC % (auto) D-Dimer High Sensitivty 188 Sodium Potassium Chloride Carbon Dioxide Anion Gap BUN Creatinine Estim Creat Clear Calc Estimated GFR POC Glucose 152 H 191 H Random Glucose Calcium Phosphorus Magnesium Total Bilirubin Direct Bilirubin AST ALT Alkaline Phosphatase Troponin I High Sens B-Natriuretic Peptide Total Protein Albumin Progress Note: A&P Assessment and plan (1) Hypertensive urgency: Status: Acute (2) Congestive heart failure: Status: Acute (3) Low TSH level: Status: Acute (4) Acute kidney injury superimposed on CKD: Status: Acute (5) COVID: Status: Acute (6) Chest pain: Status: Acute (7) CKD (chronic kidney disease): Status: Acute (8) CRP elevated: Status: Acute (9) Elevated troponin: Status: Acute (10) Heart block AV second degree: Status: Acute (11) Uncontrolled hypertension: Status: Acute (12) Heart failure, unspecified: Status: Acute (13) Cardiomyopathy: Status: Acute (14) Nicotine dependence, cigarettes, uncomplicated: Status: Acute (15) High cholesterol: Status: Acute (16) Fatty liver: Status: Acute (17) Diabetes mellitus: Status: Acute (18) H/O mixed connective tissue disease: Status: Acute (19) Bipolar 1 disorder: Status: Acute Plan So at this point hypertension is controlled no further issues as far as heart failure is concerned but she is developing of course these focal right-sided symptoms which could be part and parcel of the migrainous headache the note that she has but no just to satisfy there were not missing and other organic issue most especially veno bleed of such we we will reimage we just need to decide if it is going to be MRI aorta is going to be another CT scan Quality Stroke Does the patient have a stroke diagnosis?: No VTE Prior VTE?: Yes VTE Risk Level:: Medical - low VTE Device Contraindication: N/A - Device Ordered VTE Drug Contraindication: N/A - Med Ordered
--- NOTE | 2021-12-03 13:31 | P.EN_ITS ---
Event Note Date of Service: 12/03/21 Event Note: Transfer from ICU. Discussed with Dr. Ashton. Patient admitted yesterday with hypertensive urgency. Systolic blood pressures as high as 230 with history of hypertensive myopathy. EKG showed left ventricular enlargement. Echocardiogram showed EF of 45%, similar to 6 months ago. She did present with some increased shortness of breath and elevated BNP, not currently on diuretics. She was transferred to the ICU and started on nicardipine, her Coreg was inc reased to 12.5 mg every 12 hours, lisinopril continued and spironolactone added. She also had complaints of migraine headache with right-sided visual field compromise which she was given Fioricet for. If she continues with this right- sided visual field deficit will repeat head CT this evening. Head CT from admission was negative. Hypertensive urgency initially treated with IV nicardipine. Coreg, nifedipine, lisinopril and spironolactone with better control. Avoid dropping blood pressure to rapidly. Cardiomyopathy with heart failure with reduced ejection fraction Migraine headache treated with Fioricet, repeat brain CT if still having right- sided deficit issues. Diabetes mellitus. Sliding scale, ADA diet Asthma mild intermittent. Albuterol as needed Mental health. Continue home medications
--- NOTE | 2021-12-03 14:45 | MHC.CM.PN ---
Addendum entered by Katlin Kidd 12/03/21 14:51: DX HYPERTENSIVE URGENCY. SHE STATED SHE OFTEN LEAVES AMA R/T NEEDED AT HOME 2 SPEC NEEDS TEENS AND A 3YR OLD. Original Note: IMM 12/03/21 Female 41 Lives with her family(significant other and kids). She is independent with all functional mobility. HCP on file. Patient is not vaccinated. She does not want to be vaccinated. DP home no services. Patient states that she will arrange for a ride home.
[2021-12-03 14:58] LABS: Glucose, Whole Blood 120 mg/dL (60-115)
[2021-12-03 16:53] LABS: Glucose, Whole Blood 119 mg/dL (60-115)
[2021-12-03 20:48] LABS: Glucose, Whole Blood 266 mg/dL (60-115)
[2021-12-04] MEDS: Heparin Sodium,Porcine 5,000 UNIT/ML VIAL 5000 UNIT SUBCUT ×2 (03:45→11:58)
[2021-12-04 04:00] VITALS: BP 161/95; PULSE 74; RESP 18; TEMP 37; O2SAT 95
[2021-12-04 06:51] LABS: MANUAL DIFF FLAG NO
[2021-12-04 07:05] LABS: Basophils Absolute Auto 0.1 X10*3/uL (0.0-0.2); Basophils Percent Auto 0.6 % (0-2); Eosinophils Absolute Auto 0.2 X10*3/uL (0.0-0.4); Eosinophils Percent Auto 2.3 % (0-4); Hematocrit 35.3 % (37.0-47.0); Hemoglobin 12.6 g/dl (12.0-16.0); Imm Gran Abs Auto 0.03 X10*3/uL (0.00-0.03); Imm Gran Pct Auto 0.3 % (0.0-0.4); Lymphocytes Absolute Auto 2.6 X10*3/uL (1.2-4.9); Mean Corpuscular HGB Conc 35.7 g/dl (31.0-35.0); Mean Corpuscular Hemoglobin 32.5 pg (27.0-33.0); Mean Platelet Volume 10.2 fL (9.4-12.3); Monocytes Absolute Auto 0.6 X10*3/uL (0.1-1.2); Monocytes Percent Auto 6.1 % (2-11); Neutrophils Absolute Auto 6.9 x10*3/uL (2.0-8.3); Neutrophils Percent Auto 65.7 % (45-73); Platelet Count 331 X10*3/uL (160-400); Red Blood Count 3.88 X10*6/uL (4.20-5.50); Red Cell Distribution Width 15.1 % (11.0-16.0); White Blood Count 10.4 X10*3/uL (4.8-10.8)
[2021-12-04 07:13] LABS: Alanine Aminotransferase 19 U/L (0-31); Albumin Level 3.4 g/dL (3.5-5.0); Alkaline Phosphatase 94 U/L (39-117); Anion Gap 14 (12-20); Aspartate Amino Transferase 11 U/L (5-31); Bilirubin Direct 0.3 mg/dL (0.0-0.5); Bilirubin Total 0.6 mg/dL (0.0-1.0); Blood Urea Nitrogen 22 mg/dL (9-16); Calcium 8.8 mg/dL (8.4-10.2); Carbon Dioxide 27 mmol/L (22-29); Chloride 100 mmol/L (96-108); Creatinine Clr Calc Pharmacy 49.6; Estimated Glomerular Filt Rate 35; Glucose Random 172 mg/dL (60-115); Magnesium 2.1 mg/dL (1.6-2.6); Phosphorus 3.7 mg/dL (2.7-4.5); Potassium 3.3 mmol/L (3.3-5.1); Sodium 138 mmol/L (135-145); Total Protein 5.6 g/dL (6.5-8.0)
[2021-12-04 07:16] LABS: B Type Natriuretic Peptide 393 pg/mL (<100)
[2021-12-04 07:22] VITALS: BP 158/97; PULSE 74; RESP 18; TEMP 36.1; O2SAT 96
[2021-12-04 07:30] LABS: Glucose, Whole Blood 147 mg/dL (60-115)
[2021-12-04] MEDS: NIFEdipine ER 60 MG TAB.ER.24 120 MG PO (08:10)
[2021-12-04] MEDS: Aspirin Enteric Coated 81 MG TABLET.DR PO (08:10)
[2021-12-04] MEDS: Spironolactone 25 MG TABLET 12.5 MG PO (08:10)
[2021-12-04] MEDS: carvediloL 12.5 MG TABLET PO (08:11)
[2021-12-04] MEDS: Nicotine 14 MG PATCH.TD24 TRANSDERMA (08:11)
[2021-12-04] MEDS: lisinopriL 20 MG TABLET PO (08:11)
[2021-12-04 10:58] VITALS: BP 155/90; PULSE 81; RESP 20; TEMP 35.9; O2SAT 97
[2021-12-04 11:14] LABS: Glucose, Whole Blood 177 mg/dL (60-115)
--- NOTE | 2021-12-04 11:52 | MHC.CM.PN ---
IMM 12/03/21 Female 41 DX Hypertensive urgency is discharged to home today no services. She has arranged for transportation home.
[2021-12-04] MEDS: Insulin Lispro 100 UNIT/ML 3 ML VIAL SUBCUT (11:58)
--- NOTE | 2021-12-04 12:14 | P.CONNP_ITS ---
History of Present Illness Reason for Consult Consult date: 12/04/21 Chief Complaint Chief complaint: Hypertensive urgency History of Present Illness Narrative: 41-year-old female who is an insulin-dependent type 2 diabetic with CKD who fo llows with Dr Bertrand who has H/O poorly controlled hypertension with presented to hospital with 250 systolic BP , BNP of 3000 EKG with normal sinus rhythm left ventricular enlargement with diffuse nonspecific ST-T changes. She was admitted for further management. Nephrology has been consulted to assist in her clinical care during her current hospital stay. Review of Systems Review of Systems Yes all other systems are reviewed and are negative [facility] Past Medical History Medical History Anxiety Bipolar 1 disorder Cardiomyopathy CKD (chronic kidney disease) stage 2, GFR 60-89 ml/min Diabetes mellitus Eclampsia Fatty liver H/O mixed connective tissue disease Heart block AV second degree High cholesterol History of DVT (deep vein thrombosis) HTN (hypertension) Hypersomnia Lupus Migraines Nicotine dependence, cigarettes, uncomplicated (~1999) PTSD (post-traumatic stress disorder) Rheumatoid arthritis Sjogren's disease Family History Family History Father Substance use disorder Mental health disorder Brother Substance use disorder Mental health disorder Brother Substance use disorder Mental health disorder Other Diabetes HTN (hypertension) Surgical History Surgical History History of bronchoscopy (~11/2020) History of cholecystectomy (~05/2014) History of hysterectomy Social History Social History Household Members: Children Household Members Other:: boyfriend Housing: House Are you a primary youth care professional to a significant other at home: No Do you presently have visiting nurse or other home services: No Alcohol intake: never Patient Tobacco Use Status: Current everyday Tobacco user Tobacco use type: Cigarette Cigarette Packs Per Day: 0.5 Cigarettes Per Day: 10.0 Years Smoked: 20 Smoked in Last 30 Days: Yes e-Cigarette/Vaping Use: Never Used Patient Interested in Nicotine Replacement: Yes Patient Given Instructions on How to Stop Smoking: Yes Date Education Initiated: 12/02/21 Second Hand Smoke Exposure: No Use of substances other than those prescribed or required for medical reasons: Yes Substance Use Type: Marijuana Substance Use Frequency: Monthly Last Used Substance: Weeks (ago) Currently Displaying Signs/Symptoms of Drug Intoxication Withdrawal: No Any prior treatment program specific to substance use: No Have you been hit, kicked, punched, or otherwise hurt by someone within the past year? If so, by whom?: No Do you feel safe in your current relationship?: No Current Relationship Are you made to feel afraid or neglected: No Spiritual Healthcare Practices: NONE L[employer]-Day Healthcare Practices: NONE Cultural Healthcare Practices: NONE Advance Directives: Yes Advance Directives on File: Yes Advance Directives Date on File: 06/03/21 Do you have thoughts of harming others: None Do you have a plan to hurt others: No Plan Recently lost weight without trying: No How much weight loss: 14-23 pounds Eating poorly because of decreased appetite: Yes Nutrition screen score: 3 Nutrition Risks: No Nutritional Risk Patient : No : No Poor oral hygiene: No service: No Current occupational status: disabled Cognitive needs: No Hearing needs: No Vision needs: No Meds Allergies Allergy/AdvReac Type Severity Reaction Status Date / Time Cephalosporins Allergy Intermediate RASH ALL Verified 10/03/21 09:56 [CEPHALOSPORINS] OVER amoxicillin Allergy Unknown rash Verified 10/03/21 09:56 cefaclor [From Ceclor] Allergy Unknown RASH Verified 10/03/21 09:56 cephalexin Allergy Unknown rash Verified 10/03/21 09:56 cephradine [From VELOSEF] Allergy Unknown RASH Verified 10/03/21 09:56 Penicillins [PENICILLINS] Allergy Unknown RASH Verified 10/03/21 09:56 gabapentin [GABAPENTIN] AdvReac Unknown RESTLESS Verified 10/03/21 09:56 LEGS, Body becomes very uncomfortable Active Medications: Current Medications Acetaminophen/Butalbital/Caffeine (Butalb/Acetamin/Caff 50/325/40 Tablet) 1 tab PO Q4H PRN PRN Reason: Headache Last Admin: 12/03/21 19:39 Dose: 1 tab Albuterol Sulfate (Albuterol Sulfate 90 Mcg 8 Gm Inhaler) 1 puff INHALE QID PRN PRN Reason: shortness of breath or wheezing Aspirin (Aspirin Enteric Coated 81 Mg ) 81 mg PO DAILY BRIAN Last Admin: 12/04/21 08:10 Dose: 81 mg Carvedilol (Carvedilol 12.5 Mg Tablet) 12.5 mg PO BID [facility]; Protocol Last Admin: 12/04/21 08:11 Dose: 12.5 mg Clonazepam (Clonazepam 1 Mg Tablet) 1 mg PO DAILY PRN PRN Reason: anxiety Heparin Sodium (Porcine) (Heparin Sodium,Porcine 5,000 Unit/Ml Vial) 5,000 unit SUBCUT Q8H [facility] Last Admin: 12/04/21 11:58 Dose: 5,000 unit Insulin Human Lispro (Insulin Lispro 100 Unit/Ml 3 Ml Vial) 0 unit SUBCUT QIDACHS [facility]; Protocol Last Admin: 12/04/21 11:58 Dose: 2 unit Lisinopril (Lisinopril 20 Mg Tablet) 20 mg PO BID [facility]; Protocol Last Admin: 12/04/21 08:11 Dose: 20 mg Nicotine (Nicotine 14 Mg Patch.Td24) 14 mg TRANSDERMA DAILY [facility] Last Admin: 12/04/21 08:11 Dose: 14 mg Nifedipine (Nifedipine Er 60 Mg Tab.Er.24) 120 mg PO DAILY [facility]; Protocol Last Admin: 12/04/21 08:10 Dose: 120 mg Pharmacy Consult (Consult Rx Perform Med Rec) 1 each MISCELLANE ONCE PRN PRN Reason: Consult order Spironolactone (Spironolactone 25 Mg Tablet) 12.5 mg PO DAILY [facility]; Protocol Last Admin: 12/04/21 08:10 Dose: 12.5 mg Home Medications Medication Instructions Recorded Confirmed Last Taken Type aspirin 81 mg tablet,delayed 81 mg PO DAILY 09/14/20 12/02/21 11/24/21 History release dapagliflozin 10 mg-metformin ER 1 tab PO DAILY 10/25/20 12/02/21 11/24/21 History 1,000 mg tablet,extended release 24hr (Xigduo XR) clonazepam 1 mg tablet 1 mg PO DAILY PRN anxiety 11/05/20 12/02/21 11/24/21 History lisinopril 10 mg tablet 20 mg PO BID 06/18/21 12/02/21 11/24/21 History Physical Exam Vital Signs: Last Vital Signs Temp 96.6 F L 12/04/21 10:58 Pulse 81 12/04/21 10:58 Resp 20 12/04/21 10:58 BP 155/90 H 12/04/21 10:58 Pulse Ox 97 12/04/21 10:58 O2 Del Method 12/04/21 10:58 BMI result Body Mass Index 27.4 Const General: no acute distress Orientation/consciousness: patient oriented x3 Eyes EOM: EOMs intact bilaterally Neck Neck: Yes supple Resp Auscultation: diminished lung sounds Cardio Rate: regular rate GI Palpation (GI): Soft to palpation Neuro General: patient oriented x3 and moves all extremities Extrem General: Yes no clubbing, cyanosis or edema Results Lab Results Result Diagrams: 12/04/21 06:25 12/04/21 06:25 Lab results: Chemistry 12/02/21 12/03/21 12/04/21 12:20 05:40 06:25 Sodium 140 139 138 Potassium 3.6 D 3.2 L 3.3 Carbon Dioxide 29 29 27 BUN 25 H 21 H 22 H Creatinine 1.69 H 1.54 H 1.65 H Calcium 9.3 8.8 8.8 Phosphorus 4.0 3.7 Hematology 12/02/21 12/03/21 12/04/21 12:20 05:40 06:25 WBC 14.0 H 12.4 H 10.4 Hgb 13.1 12.4 12.6 Plt Count 313 320 331 Urinalysis 12/02/21 12:24 Urine Color Yellow Urine Appearance Clear Urine pH 7.0 Ur Specific [place] 1.010 Urine Protein 300 (3+) H Urine Glucose (UA) 100 H Urine Ketones Negative Urine Blood Negative Urine Nitrite Negative Ur Leukocyte Esterase Negative Urine RBC 0-2 Urine WBC 0-5 Ur Squamous Epith Cells 0-2 Hyaline Casts 0-2 Assessment and Plan (1) Acute kidney injury superimposed on CKD: Status: Acute (2) Hypertensive urgency: Status: Acute Plan Renal function close to baseline Blood pressure control much better Could increase Carvedilol to 25 mg PO bid Low sodium diet & continued life style modifications Concur with rest of current management Shall arrange close office F/U when D/[place] Procedures Date of Service Date of Service: 12/04/21
--- NOTE | 2021-12-04 13:00 | P.DS_ITS ---
DS: Providers Provider Date of Service: 12/04/21 Date of admission: 12/02/21 20:03 Primary care physician: TWILA Benitez Consults: 12/04/21 08:53 Consult to Nephrology Routine Consulting Provider: Anders Rogers Reason for consultation: hypertenisve emergency DS: Diagnosis Discharge Diagnosis (1) Acute kidney injury superimposed on CKD: Status: Acute (2) Hypertensive urgency: Status: Acute DS: Summary Hospital Course Hospital Course: from initial hpi: 41-year-old female who is an insulin-dependent type 2 diabetic with moderate obesity severe difficult to control hypertension with known hypertensive cardiovascular disease but nonischemic with a negative cardiac catheterization who because of poorly controlled hypertension with pressures in excess of 250 systolic presented with syndrome consistent with congestive heart failure BNP of 3000 she also has stage II renal failure with creatinine clearance estimated in the mid 40s my bedside echo documenting ejection fraction of about 45% with concentric left ventricular hypertrophy mild to moderate diffuse hypokinesis but no primary valve or pericardial disease of significance EKG with normal sinus rhythm left ventricular enlargement with diffuse nonspecific ST-T changes hospital course: Patient was admitted for hypertensive emergency complicated by acute on chronic diastolic CHF. She was put on nicardipine infusion, carvedilol was increased to 12.5 mg b.i.d. and Aldactone 25 mg daily was started. Patient's migraine resolved, blood pressure improved, shortness of breath improved. She was downgraded to medical floor. She was seen by Nephrology recommended increasing carvedilol further to 25 mg b.i.d.. She will be discharged home and follow-up with Nephrology. For patient's metabolic syndrome with diabetes and fatty liver she should continue comorbid control and weight loss. For CKD 3 with proteinuria she will follow-up with Nephrology. Time Spent with Patient Time attestation: Total time spent providing and/or coordinating discharge services: Discharge coordination time: Greater than 30 minutes Quality: Safe Use of Opioids Does Pt have an Active Cancer Diagnosis on the Problem List?: No Quality: Stroke Does the patient have a stroke diagnosis?: No Physical Exam Vital Signs: Vital Signs: Last Vital Signs Temp 96.6 F L 12/04/21 10:58 Pulse 81 12/04/21 10:58 Resp 20 12/04/21 10:58 BP 155/90 H 12/04/21 10:58 Pulse Ox 97 12/04/21 10:58 O2 Del Method 12/04/21 10:58 BMI result Body Mass Index 27.4 General: AO X 3, no acute distress Resp: CTA bilateral, no accessory muscles used CVS: S1,S2,RRR GI: soft, non tender, non distended Neuro: motor grossly intact, alert Psych: appropriate affect, appropriate insight DS: Data Data Completed and Pending Completed studies during hospitalization [Text1]: Procedures Drainage of Left Knee Joint, Percutaneous Approach (01/07/21) Labs on day of discharge: Laboratory Results - last 24 hr 12/03/21 12/03/21 12/03/21 14:54 16:45 20:36 WBC RBC Hgb Hct MCV MCH MCHC RDW Plt Count MPV Immature Gran % (Auto) Neut % (Auto) Lymph % (Auto) [place] % (Auto) Eos % (Auto) Baso % (Auto) Lymph # (Auto) [place] # (Auto) Eos # (Auto) Baso # (Auto) Abs Immat Gran (auto) Absolute Neuts (auto) Absolute Nucleated RBC Nucleated RBC % (auto) Sodium Potassium Chloride Carbon Dioxide Anion Gap BUN Creatinine Estim Creat Clear Calc Estimated GFR POC Glucose 120 H 119 H 266 H Random Glucose Calcium Phosphorus Magnesium Total Bilirubin Direct Bilirubin AST ALT Alkaline Phosphatase B-Natriuretic Peptide Total Protein Albumin 12/04/21 12/04/21 12/04/21 06:25 06:25 06:25 WBC 10.4 RBC 3.88 L Hgb 12.6 Hct 35.3 L MCV 91.0 MCH 32.5 MCHC 35.7 H RDW 15.1 Plt Count 331 MPV 10.2 Immature Gran % (Auto) 0.3 Neut % (Auto) 65.7 Lymph % (Auto) 25.0 [place] % (Auto) 6.1 Eos % (Auto) 2.3 Baso % (Auto) 0.6 Lymph # (Auto) 2.6 [place] # (Auto) 0.6 Eos # (Auto) 0.2 Baso # (Auto) 0.1 Abs Immat Gran (auto) 0.03 Absolute Neuts (auto) 6.9 Absolute Nucleated RBC 0.000 Nucleated RBC % (auto) 0.0 Sodium 138 Potassium 3.3 Chloride 100 Carbon Dioxide 27 Anion Gap 14 BUN 22 H Creatinine 1.65 H Estim Creat Clear Calc 49.6 Estimated GFR 35 POC Glucose Random Glucose 172 H Calcium 8.8 Phosphorus 3.7 Magnesium 2.1 Total Bilirubin 0.6 Direct Bilirubin 0.3 AST 11 D ALT 19 Alkaline Phosphatase 94 B-Natriuretic Peptide 393 H Total Protein 5.6 L Albumin 3.4 L 12/04/21 12/04/21 07:25 11:01 WBC RBC Hgb Hct MCV MCH MCHC RDW Plt Count MPV Immature Gran % (Auto) Neut % (Auto) Lymph % (Auto) [place] % (Auto) Eos % (Auto) Baso % (Auto) Lymph # (Auto) [place] # (Auto) Eos # (Auto) Baso # (Auto) Abs Immat Gran (auto) Absolute Neuts (auto) Absolute Nucleated RBC Nucleated RBC % (auto) Sodium Potassium Chloride Carbon Dioxide Anion Gap BUN Creatinine Estim Creat Clear Calc Estimated GFR POC Glucose 147 H 177 H Random Glucose Calcium Phosphorus Magnesium Total Bilirubin Direct Bilirubin AST ALT Alkaline Phosphatase B-Natriuretic Peptide Total Protein Albumin Discharge Plan Discharge Patient Disposition: Home, Self-Care Discharge Diagnosis: hypertensive emergency Referrals: Mauricio Nolasco [employer]- [Primary Care Provider] - 1 Week Discharge Medications: New spironolactone 25 mg Tablet 12.5 mg PO DAILY Qty: 30 0RF Protocol: Hold for SBP< HOLD for SBP < : 90 carvedilol 25 mg tablet 25 mg PO BID Qty: 60 0RF Rx Instructions: must administer with a meal/food Continued albuterol sulfate 90 mcg/actuation HFA aerosol inhaler 1 inh inhalation QID PRN (Reason: shortness of breath or wheezing) 30 Days Qty: 8.5 3RF Xigduo XR 10-1,000 mg tablet, IR - ER, biphasic 24hr 1 tab PO DAILY aspirin 81 mg Tablet,Delayed Release (Dr/Ec) 81 mg PO DAILY clonazepam 1 mg tablet 1 mg PO DAILY PRN (Reason: anxiety) nifedipine 60 mg tablet extended release 24 hr 120 mg PO DAILY 90 Days Qty: 180 0RF Trulicity 0.75 mg/0.5 mL pen injector 0.75 mg subcut QWEEK Qty: 2 5RF (DME) OneTouch Ultra Test Strip See Rx Instructions .Route Qty: 100 4RF Rx Instructions: tests 3 X/day (DME) lancets [OneTouch UltraSoft Lancets] Misc See Rx Instructions .Route Qty: 100 5RF Rx Instructions: Tests 3 X/day lisinopril 10 mg tablet 20 mg PO BID Hold Instructions: Resume on 01/21/21. Hold lisinopril until repeat BMP out patiently with PCP and follow-up with Nephrology. Discontinued carvedilol [Coreg] 6.25 mg tablet 6.25 mg PO BID Qty: 60 2RF Rx Instructions: must administer with a meal/food Discharge Orders: Discharge Order (Routine); Ordered 12/04/21 Ordered By: Zachary Ascencio Diet: Advance to usual diet Activity on Discharge: As tolerated Stand Alone Forms: Patient Portal Discharge page Care Plan Goals: bp control Health Concerns: htn Plan of Treatment: increase coreg to 25mg bid, start aldactone, continue other meds, low salt diet Assessment: see above
--- NOTE | 2021-12-05 08:37 | P.CDIR_ITS ---
Documented by User: Elsy Rodarte CCS, CDIS 12/05/21 08:42 Retrospective Query PHYSICIAN'S DOCUMENTATION REQUEST Date of Query: 12/05/21 0837 Patient Name: Angela Streeter Admit Date: 12/02/21 Dear Doctor, A review of the medical record indicates additional documentation may be needed. Please review below and update the documentation accordingly. Risk Factors/Clinical Indicators/Treatments H&P 12/02: CKD II with creatinine clearance estimated in the mid 40's. PMH: CKD II ICU note 12/03: CKD III Discharge summary 12/04 - has Stage II renal failure w creatinine clearance estimated in the mid 40's will be discharged home and follow up with Nephrology- for CKD III with proteinuria follow up Nephrology. Based on the above, could you clarify in the Progress Notes the appropriate Stages: * Chronic kidney disease Stage II * Chronic kidney disease Stage III * Other (please specify) * Unable to determine Use of terms such as suspected, likely, concern for, or probable (associated with a specific diagnosis that is being evaluated, monitored, or treated as if it exists) are acceptable and can be coded in the inpatient setting, when documented at the time of discharge. Thank you, Elsy Rodarte CCS, CDIS Extension: [phone] Please use your independent medical judgment in providing your response. THIS QUERY IS PART OF THE PERMANENT MEDICAL RECORD Documented by User: Zachary Ascencio MD 12/05/21 09:38 Retrospective Query Provider Response: CKD Stage 3
== END 2021-12-04 14:25 | disposition home or self-care (01) | DRG 291 ==
LOC: HO.ED 13:44 → HO.EDOVER 20:08 → HO.ICU 20:13 → HO.S3 12-03 16:09 → HO.IMC 12-03 16:27
PROVIDERS: Nurse Practitioner Acute Care; Admitting Provider Physician Assistant; Emergency Provider Emergency Medicine; PCP Nurse Practitioner Family; Visit Provider Internal Medicine
DX: I13.0 Hypertensive heart and chronic kidney disease with heart failure and stage 1 through stage 4 chronic kidney disease, or unspecified chronic kidney disease (principal); I50.23 Acute on chronic systolic (congestive) heart failure; M35.1 Other overlap syndromes; I16.0 Hypertensive urgency; I42.2 Other hypertrophic cardiomyopathy; N18.30 Chronic kidney disease, stage 3 unspecified; E11.22 Type 2 diabetes mellitus with diabetic chronic kidney disease; K76.0 Fatty (change of) liver, not elsewhere classified; M32.9 Systemic lupus erythematosus, unspecified; J45.20 Mild intermittent asthma, uncomplicated; F43.10 Post-traumatic stress disorder, unspecified; F31.9 Bipolar disorder, unspecified; E66.9 Obesity, unspecified; Z68.27 Body mass index [BMI] 27.0-27.9, adult; F17.210 Nicotine dependence, cigarettes, uncomplicated; Z71.6 Tobacco abuse counseling; Z88.0 Allergy status to penicillin; Z88.1 Allergy status to other antibiotic agents; Z88.8 Allergy status to other drugs, medicaments and biological substances; Z79.82 Long term (current) use of aspirin; Z79.899 Other long term (current) drug therapy
CPT/HCPCS: 36415; 70450; 71045; 80048; 80053; 80076; 81001; 82248; 82947; 83690; 83735; 83880; 84100; 84484; 85025; 85379; 87635; 93005; 99285; J1200; J1940; J2270; J2405; J2765

== ENCOUNTER 2021-12-17 08:03 | Emergency (ER) | payer MEDICARE, MEDICAID, SELFPAY ==
[2021-09-27 11:09] VITALS: BP 190/120; BMI 29.0
--- NOTE | ~2021-12-17 | XR_ITS ---
EXAMINATION: XR CHEST CLINICAL INFORMATION: Chest pain. COMPARISON: 12/02/2021 TECHNIQUE: Frontal view of the chest was obtained. FINDINGS: The lungs are clear. The heart and mediastinal structures are unremarkable. Healed left posterolateral left seventh rib fracture. The soft tissues are unremarkable. XR/XR chest 1V IMPRESSION: No acute cardiopulmonary process.
[2021-12-17 08:04] VITALS: BP 190/114; PULSE 82; RESP 18; TEMP 36.8; O2SAT 99; BMI 25.8
--- NOTE | 2021-12-17 08:08 | ECG_ITS ---
Test Reason : chest pain Blood Pressure : / mmHG Vent. Rate : 074 BPM Atrial Rate : 074 BPM P-R Int : 150 ms QRS Dur : 092 ms QT Int : 406 ms P-R-T Axes : 049 009 160 degrees QTc Int : 450 ms Normal sinus rhythm Possible Left atrial enlargement Left ventricular hypertrophy with repolarization abnormality ( R in aVL , Sokolow-Abarca , Omar product , Romhilt-Peres ) Abnormal ECG When compared with ECG of 02-DEC-2021 12:01, Heart rate has decreased Referred By: Clarissa Melo Electronically Signed By:AIRAM OVIEDO
--- NOTE | 2021-12-17 08:22 | ED.CHESTPAIN ---
HPI - Chest Pain General Chief Complaint: Chest Pain Stated Complaint: chest pains/diff. breathing Time Seen by Provider: 12/17/21 08:15 Source: patient and old records reviewed Mode of arrival: ambulatory Limitations: no limitations History of Present Illness HPI narrative: 41 yo female with hx of CHF EF 45%, CKD, DM, bipolar recent admit for HTN urgency and CHF - DC 12/04 on carvedilol 25mg BID and spironolactone 12.5mg daily. She was initially admitted to ICU on nicardipine drip with ocular migraine. She notes her BPs at home have been 160s but the last 3 days she has had a typical migraine for her (no neuro symptoms and not ocular) so her BP has been increasing. She developed chest tightness and diff breathing before bed last night. Her BP this AM was over 200. SHe reports compliance with all medications. MD complaint: chest pain (migraine, HTN) Pertinent past history: other (HTN urgency) Onset (ago): day(s) (3 days of migraine, 1 day of chest pain) Timing of current episode: constant Prior episodes: Yes Onset: during rest Pain location: substernal Pain radiation: none Severity: moderate Quality: tightness Relieving factors: nothing Exacerbating factors: nothing Context: recent illness Associated symptoms: dyspnea and other (headache) Treatment prior to arrival: other (AM bp meds) Related Data Home Medications Medication Instructions Recorded Confirmed aspirin 81 mg tablet,delayed 81 mg PO DAILY 09/14/20 12/02/21 release dapagliflozin 10 mg-metformin ER 1 tab PO DAILY 10/25/20 12/02/21 1,000 mg tablet,extended release 24hr (Xigduo XR) clonazepam 1 mg tablet 1 mg PO DAILY PRN anxiety 11/05/20 12/02/21 lisinopril 10 mg tablet 20 mg PO BID 06/18/21 12/02/21 Previous Rx's Medication Instructions Recorded albuterol sulfate 90 mcg/actuation 1 inh inhalation QID PRN shortness 08/15/21 aerosol inhaler of breath or wheezing 30 days #8.5 grams blood sugar diagnostic (AppointuitTouch #100 ea 09/27/21 Ultra Test strips) dulaglutide 0.75 mg/0.5 mL 0.75 mg (0.5 mL) subcut QWEEK #2 mL 09/27/21 subcutaneous pen injector (Trulicity) lancets (OneTouch UltraSoft #100 ea 09/27/21 Lancets) nifedipine 60 mg tablet,extended 120 mg PO DAILY 90 days #180 tabs 10/03/21 release 24 hr spironolactone 25 mg tablet 12.5 mg PO DAILY #30 tabs 12/04/21 carvedilol 25 mg tablet 25 mg PO BID #180 tabs 12/06/21 Allergies Allergy/AdvReac Type Severity Reaction Status Date / Time Cephalosporins Allergy Intermediate RASH ALL Verified 10/03/21 09:56 [CEPHALOSPORINS] OVER amoxicillin Allergy Unknown rash Verified 10/03/21 09:56 cefaclor [From Ceclor] Allergy Unknown RASH Verified 10/03/21 09:56 cephalexin Allergy Unknown rash Verified 10/03/21 09:56 cephradine [From VELOSEF] Allergy Unknown RASH Verified 10/03/21 09:56 Penicillins [PENICILLINS] Allergy Unknown RASH Verified 10/03/21 09:56 gabapentin [GABAPENTIN] AdvReac Unknown RESTLESS Verified 10/03/21 09:56 LEGS, Body becomes very uncomfortable Review of Systems Review of Systems: Constitutional : No Weight loss, No Fever, No Chills ENT/Mouth : No sore throat, No Rhinorrhea Eyes: No Eye Pain, No Swelling Cardiovascular : pos Chest Pain, pos SOB, no Dyspnea on Exertion, No Orthopnea, No Edema, No Palpitations Respiratory : No Cough, No Sputum Gastrointestinal : no Nausea, No Vomiting, No Diarrhea, No abdominal Pain, No Hematochezia, No Melena Genitourinary : No Dysuria, No Urinary Frequency Musculoskeletal : No joint pain, No Myalgias, No Joint Swelling Skin : No Skin Lesions, No rash Neuro : No Weakness, No Numbness, No Dizziness, pos Headache Psych : No Anxiety/Panic, No Depression Heme/Lymph: No Bruising, No Lymphadenopathy Endocrine : No Polyuria, No Polydipsia All other systems reviewed and are negative [facility] Past Medical History Attestation statement: The following information was validated with the patient. Medical History Anxiety Bipolar 1 disorder Cardiomyopathy CKD (chronic kidney disease) stage 2, GFR 60-89 ml/min Diabetes mellitus Eclampsia Fatty liver H/O mixed connective tissue disease Heart block AV second degree High cholesterol History of DVT (deep vein thrombosis) HTN (hypertension) Hypersomnia Lupus Migraines Nicotine dependence, cigarettes, uncomplicated (~1999) PTSD (post-traumatic stress disorder) Rheumatoid arthritis Sjogren's disease Surgical History History of bronchoscopy (~11/2020) History of cholecystectomy (~05/2014) History of hysterectomy Family History Family History Father Substance use disorder Mental health disorder Brother Substance use disorder Mental health disorder Brother Substance use disorder Mental health disorder Other Diabetes HTN (hypertension) Social History Social History Household Members: Children Household Members Other:: boyfriend Housing: House Are you a primary sub acute care nurse to a significant other at home: No Do you presently have visiting nurse or other home services: No Alcohol intake: never Patient Tobacco Use Status: Never used Tobacco Tobacco use type: Cigarette Cigarette Packs Per Day: 0.5 Cigarettes Per Day: 10.0 Years Smoked: 20 e-Cigarette/Vaping Use: Never Used Second Hand Smoke Exposure: No Use of substances other than those prescribed or required for medical reasons: No Substance Use Type: Marijuana Advance Directives: Yes Advance Directives on File: Yes Advance Directives Date on File: 06/03/21 service: No Current occupational status: disabled Cognitive needs: No Hearing needs: No Vision needs: No Physical Exam Vital Signs: Vital Signs: Last Vital Signs Temp 98.1 F 12/17/21 08:23 Pulse 66 12/17/21 09:03 Resp 18 12/17/21 09:03 BP 164/104 H 12/17/21 09:03 Pulse Ox 96 12/17/21 09:03 O2 Del Method 12/17/21 09:03 BMI result Body Mass Index 25.8 Appearance: Alert. Oriented X3. No acute distress. Eyes: Pupils equal, round and reactive to light. ENT: Pharynx normal. Neck: Normal inspection. Neck supple. CVS: Normal heart rate and rhythm. Pulses normal. Respiratory: No respiratory distress. Breath sounds normal. Abdomen: Soft and non-tender. Skin: Skin warm and dry. Normal skin color. Normal skin turgor. Extremities: No lower extremity edema. No calf ttp Neuro: Oriented X 3. No motor deficit. No sensory deficit. Course Course Course Narrative: BP down to 169/102 with 1 dose of labetalol trop flat > 6 hours of pain, EKG unchanged, BNP lower than baseline on last admit no signs of LE swelling, no CHF on xray, CKD around baseline has appointment thursday feels much better stable for DC - symptoms all resolved BP has been up around 160s/170s at home MDM - Chest Pain MDM Narrative Medical decision making narrative: 41 yo female with hx of CHF EF 45%, CKD, DM, bipolar here with c/o typical migraine for 3 days without neuro findings, fevers gradual onset and not on blood thinners - doubt [employer]GER infection or SAH. She also notes her BP has been increasing despite medications but she thinks it is due to the pain has had chest tightness due to BP rise since last night. At this time will obtain labs, troponin. IV labetalol. IV pain medications. Dispo per results and findings - has PCP and nephrology appointment on so the patient is hoping she doesn't have to stay overnight. Lab Data Result diagrams: 12/17/21 08:40 12/17/21 08:40 Labs: Lab Results 12/17/21 12/17/21 12/17/21 Range/Units 08:40 08:40 08:40 WBC 9.8 (4.8-10.8) X10*3/uL RBC 4.18 L (4.20-5.50) X10*6/uL Hgb 13.7 (12.0-16.0) g/dl Hct 37.4 (37.0-47.0) % MCV 89.5 (80.0-98.0) fL MCH 32.8 (27.0-33.0) pg MCHC 36.6 H (31.0-35.0) g/dl RDW 14.0 (11.0-16.0) % Plt Count 437 H D (160-400) X10*3/uL MPV 9.8 (9.4-12.3) fL Immature Gran % (Auto) 0.3 (0.0-0.4) % Neut % (Auto) 76.1 H (45-73) % Lymph % (Auto) 15.3 L (20-40) % [place] % (Auto) 5.4 (2-11) % Eos % (Auto) 2.1 (0-4) % Baso % (Auto) 0.8 (0-2) % Lymph # (Auto) 1.5 (1.2-4.9) X10*3/uL [place] # (Auto) 0.5 (0.1-1.2) X10*3/uL Eos # (Auto) 0.2 (0.0-0.4) X10*3/uL Baso # (Auto) 0.1 (0.0-0.2) X10*3/uL Abs Immat Gran (auto) 0.03 (0.00-0.03) X10*3/uL Absolute Neuts (auto) 7.4 (2.0-8.3) x10*3/uL Absolute Nucleated RBC 0.000 (0.0-0.012) X10*3/uL Nucleated RBC % (auto) 0.0 (0.0-0.2) /100WBC Sodium 138 (135-145) mmol/L Potassium 4.0 D (3.3-5.1) mmol/L Chloride 102 (96-108) mmol/L Carbon Dioxide 23 (22-29) mmol/L Anion Gap 17 (12-20) BUN 23 H (9-16) mg/dL Creatinine 2.00 H (0.5-1.4) mg/dL Estim Creat Clear Calc 39.9 Estimated GFR 28 Random Glucose 169 H (60-115) mg/dL Calcium 9.6 D (8.4-10.2) mg/dL Magnesium 2.0 (1.6-2.6) mg/dL Total Bilirubin 1.0 (0.0-1.0) mg/dL Direct Bilirubin 0.3 (0.0-0.5) mg/dL AST 11 (5-31) U/L ALT 13 (0-31) U/L Alkaline Phosphatase 94 (39-117) U/L Troponin I High Sens 16.9 D (<3.5-17.0) ng/L B-Natriuretic Peptide 859 H (<100) pg/mL Total Protein 6.9 D (6.5-8.0) g/dL Albumin 4.3 D (3.5-5.0) g/dL Lipase 10 (8-78) U/L ECG Data ECG #1: Attestation: I personally reviewed and interpreted this ECG as follows: ECG interpretation date: 12/17/21 ECG interpretation time: 08:24 Interpretation: Rate: 74 Rhythm: NSR [place]: normal LVH Normal P waves. Normal HECTOR. Normal QRS complex. ST T wave : inverted T waves I aVL V4-V6 consistent with LVH and strain qTC: normal prior studies: unchanged from prior The study has been interpreted contemporaneously by me. . Discharge Plan Discharge Clinical Impression: Uncontrolled hypertension CKD (chronic kidney disease) Qualifiers: Chronic kidney disease stage: unspecified stage Qualified Code(s): N18.9 - Chronic kidney disease, unspecified Patient Disposition: Home, Self-Care Instructions: Chronic Kidney Disease (ED), Chronic Hypertension (ED) Additional Instructions: return to ED for any worsening symptoms or concerns please go to all of your appointments on take all medications as prescribed Prescriptions: No Action albuterol sulfate 90 mcg/actuation HFA aerosol inhaler 1 inh inhalation QID PRN (Reason: shortness of breath or wheezing) 30 Days Qty: 8.5 3RF carvedilol 25 mg tablet 25 mg PO BID Qty: 180 1RF Rx Instructions: must administer with a meal/food Xigduo XR 10-1,000 mg tablet, IR - ER, biphasic 24hr 1 tab PO DAILY aspirin 81 mg Tablet,Delayed Release (Dr/Ec) 81 mg PO DAILY spironolactone 25 mg Tablet 12.5 mg PO DAILY Qty: 30 0RF Protocol: Hold for SBP< HOLD for SBP < : 90 clonazepam 1 mg tablet 1 mg PO DAILY PRN (Reason: anxiety) nifedipine 60 mg tablet extended release 24 hr 120 mg PO DAILY 90 Days Qty: 180 0RF Trulicity 0.75 mg/0.5 mL pen injector 0.75 mg subcut QWEEK Qty: 2 5RF (DME) OneTouch Ultra Test Strip See Rx Instructions .Route Qty: 100 4RF Rx Instructions: tests 3 X/day (DME) lancets [OneTouch UltraSoft Lancets] Misc See Rx Instructions .Route Qty: 100 5RF Rx Instructions: Tests 3 X/day lisinopril 10 mg tablet 20 mg PO BID Hold Instructions: Resume on 01/21/21. Hold lisinopril until repeat BMP out patiently with PCP and follow-up with Nephrology.
[2021-12-17 08:23] VITALS: BP 200/111; PULSE 76; RESP 15; TEMP 36.7; O2SAT 99
[2021-12-17] MEDS: Labetalol HCL 100 MG/20 ML VIAL 10 MG IVPUSH (08:44)
[2021-12-17] MEDS: HYDROmorphone HCl 0.5 MG/0.5 ML SYRINGE IVPUSH (08:51)
[2021-12-17] MEDS: ondansetron HCL 4 MG/2 ML VIAL IVPUSH (08:51)
[2021-12-17 09:03] VITALS: BP 164/104; PULSE 66; RESP 18; O2SAT 96
[2021-12-17 09:21] LABS: MANUAL DIFF FLAG NO
[2021-12-17 09:37] LABS: Basophils Absolute Auto 0.1 X10*3/uL (0.0-0.2); Basophils Percent Auto 0.8 % (0-2); Eosinophils Absolute Auto 0.2 X10*3/uL (0.0-0.4); Eosinophils Percent Auto 2.1 % (0-4); Hematocrit 37.4 % (37.0-47.0); Hemoglobin 13.7 g/dl (12.0-16.0); Imm Gran Abs Auto 0.03 X10*3/uL (0.00-0.03); Imm Gran Pct Auto 0.3 % (0.0-0.4); Lymphocytes Absolute Auto 1.5 X10*3/uL (1.2-4.9); Lymphocytes Percent Auto 15.3 % (20-40); Mean Corpuscular HGB Conc 36.6 g/dl (31.0-35.0); Mean Corpuscular Hemoglobin 32.8 pg (27.0-33.0); Mean Corpuscular Volume 89.5 fL (80.0-98.0); Mean Platelet Volume 9.8 fL (9.4-12.3); Monocytes Absolute Auto 0.5 X10*3/uL (0.1-1.2); Monocytes Percent Auto 5.4 % (2-11); Neutrophils Absolute Auto 7.4 x10*3/uL (2.0-8.3); Neutrophils Percent Auto 76.1 % (45-73); Platelet Count 437 X10*3/uL (160-400); Red Blood Count 4.18 X10*6/uL (4.20-5.50); White Blood Count 9.8 X10*3/uL (4.8-10.8)
[2021-12-17 09:39] LABS: B Type Natriuretic Peptide 859 pg/mL (<100); Troponin-I High Sensitivity 16.9 ng/L (<3.5-17.0)
[2021-12-17 09:42] LABS: Alanine Aminotransferase 13 U/L (0-31); Albumin Level 4.3 g/dL (3.5-5.0); Alkaline Phosphatase 94 U/L (39-117); Anion Gap 17 (12-20); Aspartate Amino Transferase 11 U/L (5-31); Bilirubin Direct 0.3 mg/dL (0.0-0.5); Blood Urea Nitrogen 23 mg/dL (9-16); Calcium 9.6 mg/dL (8.4-10.2); Carbon Dioxide 23 mmol/L (22-29); Chloride 102 mmol/L (96-108); Creatinine Clr Calc Pharmacy 39.9; Estimated Glomerular Filt Rate 28; Glucose Random 169 mg/dL (60-115); Lipase 10 U/L (8-78); Sodium 138 mmol/L (135-145); Total Protein 6.9 g/dL (6.5-8.0)
[2021-12-17 10:05] LABS: COVID-19 Test Negative (Negative); IDNOW Serial# 55D5AD1C
[2021-12-17 10:09] LABS: Prothrombin Time 10.9 SEC (10.0-13.1)
== END 2021-12-17 11:00 | disposition home or self-care (01) ==
PROVIDERS: Emergency Provider Emergency Medicine; PCP Nurse Practitioner Family
DX: E11.22 Type 2 diabetes mellitus with diabetic chronic kidney disease (principal); I13.0 Hypertensive heart and chronic kidney disease with heart failure and stage 1 through stage 4 chronic kidney disease, or unspecified chronic kidney disease; N18.2 Chronic kidney disease, stage 2 (mild); I50.9 Heart failure, unspecified; E78.00 Pure hypercholesterolemia, unspecified; R06.02 Shortness of breath; F17.210 Nicotine dependence, cigarettes, uncomplicated; Z86.718 Personal history of other venous thrombosis and embolism; Z79.82 Long term (current) use of aspirin; Z79.899 Other long term (current) drug therapy; Z79.84 Long term (current) use of oral hypoglycemic drugs
CPT/HCPCS: 71045; 80048; 80076; 83690; 83735; 83880; 84484; 85025; 85610; 87635; 93005; 96374; 96375; 99284; J1170; J2405

== ENCOUNTER 2022-01-14 13:24 | Emergency (ER) | payer MEDICARE, MEDICAID, SELFPAY ==
[2021-07-15 13:20] VITALS: BP 190/110; BP 190/120
[2021-09-27 11:09] VITALS: BP 190/120; BMI 29.0
[2022-01-14 13:44] VITALS: BP 156/78; BP 161/113; PULSE 66; PULSE 89; RESP 18; TEMP 36.8; O2SAT 98; O2SAT 99; BMI 29.0
--- OUTSIDE RECORDS SUMMARY | 2022-01-14 14:04 | XMS_ITS | Continuity of Care Document ---
:1980 Author Organization [facility] Address [address] [place] [address] Drive [address] [place] [address]- Care Team Providers Name Role Phone Constance DEL RIO, Mauricio Valadez Primary Care Physician Encounter [facility] Date(s): 06/20/19 - 06/30/[address] [place] [address]- [facility] Attending Physician: Vicki Barkley Admitting Physician: AdmtrVicki Referring Physician: AdmtrVicki Allergies, Adverse Reactions, Alerts Substance Reaction Severity Status gabapentin Active cephalosporins Active penicillins1 Rash Active Neurontin Rash Active Velosef rash Active Ceclor rash Active 1rash. Tolerated cefazolin (per anes OR record this admission) and ceftriaxone (prev admission) Immunizations Given and Recorded Vaccine Date Status Refusal Reason tetanus-diphtheria toxoids (Td) 11/05/18 Given pneumococcal 23-valent vaccine 10/18/12 Given Medications amLODIPine 10 mg oral tablet 10 mg, 1, tablet, By Mouth, Daily, # 90 tablet, Refills 0, Tot. Refills 0, Maintenance, 11/09/18 11:29:19 EDT, Route to Pharmacy Electronically, [id number], [id number] Start Date: 11/09/18 Status: OrderedamLODIPine 10 mg oral tablet 10 mg, 1, tablet, By Mouth, Daily, # 30 tablet, Refills 0, Tot. Refills 0, Maintenance, 06/14/19 12:22:00 EDT, Print Requisition Start Date: 06/14/19 Status: Orderedaspirin 81 mg oral tablet 1 tablet = 81 mg, By Mouth, Daily, # 30 tablet, 8 Refills, Maintenance, 05/02/19 13:12:35 EST, Tablet Start Date: 05/02/19 Stop Date: 01/27/20 Status: OrderedclonazePAM 0.5 mg oral tablet 1 tablet = 0.5 mg, By Mouth, Daily, PRN Anxiety, 0 Refills, Maintenance, 06/07/19 18:58:00 EST, Tablet Start Date: 06/07/19 Status: OrderedCoreg 12.5 mg oral tablet 12.5 mg, 1, tablet, By Mouth, 2 times a day, # 60 tablet, Refills 0, Tot. Refills 0, Maintenance, 06/14/19 12:22:00 EDT, Print Requisition Start Date: 06/14/19 Status: OrderedDilaudid 2 mg oral tablet 1 tablet = 2 mg, By Mouth, Every 4 hours, PRN for pain, # 10 tablet, 0 Refills, Maintenance, 11/13/18 13:25:17 EDT, Tablet, Partial fill upon patient request Start Date: 11/13/18 Status: Ordereddocusate sodium 100 mg oral tablet 1 tablet = 100 mg, By Mouth, 2 times a day, PRN for constipation, # 60 tablet, 0 Refills, Maintenance, 11/09/18 11:29:57 EDT, Tablet Start Date: 11/09/18 Status: OrderedEpiPen 2-Jay 0.3 mg injectable kit = 0.3 mg, Intramuscular, Once, # 1 kit, 0 Refills, Soft Stop, 07/10/18 20:01:30 EDT Start Date: 07/10/18 Status: Orderedferrous sulfate 325 mg oral enteric coated tablet 325 mg, 1, tablet, By Mouth, Daily, # 90 tablet, Refills 3, Tot. Refills 3, Maintenance, 07/20/18 8:26:45 EDT, Route to Pharmacy Electronically, [id number], [facility] [id number] Start Date: 07/20/18 Status: OrderedLaMICtal 25 mg oral tablet 50 mg, 2, tablet, By Mouth, Daily, # 180 tablet, Refills 0, Maintenance, 06/07/19 18:57:00 EST Start Date: 06/07/19 Status: Orderedlisinopril 40 mg oral tablet 1 tablet = 40 mg, By Mouth, Daily, # 90 tablet, 0 Refills, Maintenance, 11/09/18 11:29:03 EDT, Tablet Start Date: 11/09/18 Status: OrderedPrenatal Multivitamins with Folic Acid 1 mg oral tablet 1 tablet, By Mouth, Daily, # 90 tablet, 3 Refills, Maintenance, 05/25/18 15:13:00 EST, Tablet, 1 tablet By Mouth Daily Start Date: 05/25/18 Status: OrderedraNITIdine 75 mg oral tablet 1 tablet = 75 mg, By Mouth, Daily, not to exceed 2 tablets/day, # 30 tablet, 0 Refills, Maintenance,11/04/18 13:32:46 EDT, Tablet Start Date: 11/04/18 Status: Ordered Problem List Condition Effective Dates Status Health Status Informant Anxiety and depression(Confirmed) Active Anxiety disorder(Confirmed) Active Bipolar disorder(Confirmed) Active Chronic hypertension with exacerbation Active during in second trimester(Confirmed) Mixed connective tissue Active disease(Confirmed) Diabetes mellitus type 2(Confirmed) Active Diabetes mellitus, gestational; dx at Active 11wks, 1hr gtt 264(Confirmed) Hyperlipidemia NOS(Confirmed) Active HTN (hypertension)(Confirmed) Active Morbid Obesity(Confirmed) Active PCOS (polycystic ovarian Active syndrome)(Confirmed) PTSD (post-traumatic stress Active disorder)(Confirmed) Severe preeclampsia(Confirmed) Active Sjogren's syndrome(Confirmed) Active Tobacco use(Confirmed) Active Social History Social History Type Response Tobacco Use: 4 or less cigarettes(le ss than 1/4 pack)/day in last 30 days. Tobacco user in househ old: Yes. Sex
--- OUTSIDE RECORDS SUMMARY | 2022-01-14 14:05 | XMS_ITS | Continuity of Care Document ---
:1980 Author Organization [facility] Address [address] [place] [address]- Care Team Providers Name Role Phone Constance DEL RIO, Mauricio Valadez Primary Care Physician Encounter [facility] [place] Date(s): 07/19/21 - 07/19/[address] [address] Discharge Disposition: A-D/C Home Attending Physician: Mike Mccray MD Admitting Physician: Mike Mccray MD Referring Physician: James Abraham MD Allergies, Adverse Reactions, Alerts Substance Reaction Severity [...] 11/09/18 11:29:19 EDT, Route to Pharmacy Electronically, [id number], [id number] Start Date: 11/09/18 Status: OrderedamLODIPine 10 mg [...] 07/20/18 8:26:45 EDT, Route to Pharmacy Electronically, [id number], [facility] [id number] Start Date: 07/20/18 Status: OrderedLaMICtal 25 mg oral tablet 50 mg, 2, tablet, By Mouth, Daily, # 180 tablet, Refills 0, Maintenance, 06/07/19 18:57:00 EST Start Date: 06/07/19 Status: OrderedLasix 40 mg oral tablet 40 mg, 1, tablet, By Mouth, Daily, Refills 0, Maintenance, 07/19/21 7:09:00 EDT, Partial fill upon patient request if the prescription is for a schedule II opioid drug. Start Date: 07/19/21 Status: Orderedlisinopril 40 mg oral tablet 1 tablet = 40 mg, By Mouth, Daily, # 90 tablet, 0 Refills, Maintenance, 11/09/18 11:29:03 EDT, Tablet Start Date: 11/09/18 Status: Orderedomeprazole 20 mg oral delayed release tablet 1 tablet = 20 mg, By Mouth, Daily, 0 Refills, Maintenance, 07/19/21 7:10:00 EDT, Partial fill upon patient request if the prescription is for a schedule II opioid drug. Start Date: 07/19/21 Status: OrderedPrenatal Multivitamins with Folic Acid 1 [...] 13:32:46 EDT, Tablet Start Date: 11/04/18 Status: Orderedspironolactone 100 mg oral tablet 100 mg, 1, tablet, By Mouth, Daily, Refills 0, Maintenance, 07/19/21 7:09:00 EDT, Partial fill upon patient request if the prescription is for a schedule II opioid drug. Start Date: 07/19/21 Status: OrderedXigduo XR 10 mg-1000 mg oral tablet, extended release 1 tablet, By Mouth, Daily in AM, 0 Refills, Maintenance, 07/19/21 7:14:00 EDT, Partial fill upon patient request if the prescription is for a schedule II opioid drug. Start Date: 07/19/21 Status: Ordered Problem List Condition Effective Dates [...] Active Sjogren's syndrome(Confirmed) Active Tobacco use(Confirmed) Active Vital Signs Most recent to oldest 1 2 3 [Reference Range]: Height 170 cm 170 cm 170 cm (07/19/21 7:29 AM) (07/19/21 6:37 AM) (07/19/21 6:3 4 AM) Weight 83.4 kg 83.4 kg (07/19/21 6:37 AM) (07/19/21 6:34 AM) Oxygen Saturation [94-100 %] 96 % 95 % 96 % (07/19/21 5:45 PM) (07/19/21 5:30 PM) (07/19/21 5:0 0 PM) Pulse Rate [55-90 bpm] 90 bpm (07/19/21 6:37 AM) Body Mass Index [18.5-24.99] 28.86 *H* (07/19/21 6:37 AM) Blood Pressure [90-138/55-84 mm 162/90 mm Hg 167/99 mm Hg 164/95 mm Hg Hg] *H* *H* *H* (07/19/21 5:45 PM) (07/19/21 5:30 PM) (07/19/21 5:0 0 PM) Respiratory Rate [16-30 br/min] 22 br/min 21 br/min 27 br/min (07/19/21 5:45 PM) (07/19/21 5:30 PM) (07/19/21 5:0 0 PM) Temperature [96.8-100.4 DegF] 97.6 DegF 97.4 DegF (07/19/21 2:45 PM) (07/19/21 6:37 AM) Mode of Delivery (Oxygen) Room air Room air (07/19/21 2:45 PM) (07/19/21 6:37 AM) Blood pressure sites Arm, left Arm, left Arm, left (07/19/21 2:45 PM) (07/19/21 7:29 AM) (07/19/21 6:3 7 AM) Temperature Route Temporal Temporal (07/19/21 2:45 PM) (07/19/21 6:37 AM) Weight Obtained Via Standing scale (07/19/21 6:34 AM) Social History Social History Type Response Tobacco Use: 4 or less cigarettes(le ss than 1/4 pack)/day in last 30 days. Tobacco user in househ old: Yes. Sex
== END 2022-01-14 14:07 | disposition left against medical advice (07) ==
PROVIDERS: Emergency Provider Emergency Medicine
DX: R55 Syncope and collapse (principal); R11.10 Vomiting, unspecified
CPT/HCPCS: 99281

== ENCOUNTER 2022-01-26 22:30 | Inpatient (IN) | payer MEDICARE, MEDICAID, SELFPAY ==
[2021-07-15 13:20] VITALS: BP 190/110; BP 190/120
[2021-09-27 11:09] VITALS: BP 190/120; BMI 29.0
--- NOTE | ~2022-01-26 | XR_ITS ---
EXAMINATION: XR CHEST CLINICAL INFORMATION: Chest pain and shortness of breath COMPARISON: 12/17/2021 TECHNIQUE: Frontal view of the chest was obtained. FINDINGS: Normal symmetric lung volumes. No parenchymal consolidation. No pleural effusion. No pneumothorax. Cardiomediastinal silhouette and pulmonary vascularity are within normal limits. No acute osseous abnormalities. XR/XR chest 1V IMPRESSION: No acute findings
[2022-01-26 22:37] VITALS: BP 220/140; BP 242/137; PULSE 90; RESP 20; TEMP 37; O2SAT 97; BMI 29.4
--- NOTE | 2022-01-26 22:45 | ECG_ITS ---
Test Reason : SOB Blood Pressure : / mmHG Vent. Rate : 086 BPM Atrial Rate : 086 BPM P-R Int : 166 ms QRS Dur : 088 ms QT Int : 384 ms P-R-T Axes : 045 -01 154 degrees QTc Int : 459 ms Normal sinus rhythm Intra-ventricular conduction delay Possible Left atrial enlargement Left ventricular hypertrophy with repolarization abnormality ( R in aVL , Sokolow-Abarca , [place] product , Romhilt-Peres ) Abnormal ECG When compared with ECG of 17-DEC-2021 08:15, No significant change was found Referred By: Christi Villanueva Electronically Signed By:HUMERA OLMSTEAD MD
[2022-01-26 22:48] VITALS: BP 227/141; PULSE 86
[2022-01-26] MEDS: Nitroglycerin 2 % Oint 1 GM Packet 0.5 INCH TRANSDERMA (22:48)
--- NOTE | 2022-01-26 22:48 | ED_ITS ---
HPI - Chest Pain General Chief Complaint: Dizziness Stated Complaint: DIFF BREATHING, CHEST PAIN Time Seen by Provider: 01/26/22 22:44 Source: patient Mode of arrival: EMS History of Present Illness HPI narrative: 41-year-old female with history of severe hypertension, CKD who presents via EMS for onset of chest pressure and states that ?is a felt like an elephant was sitting on my chest?, EMS states her blood pressure was well over 200 over 140s and route and although patient was not noted to be hypoxic she felt short of breath and they provided supplemental oxygen in administered aspirin as well as 0.4 sublingual nitro. Patient states that her chest pain has somewhat improved since the medication but it is still there. Related Data Home Medications Medication Instructions Recorded Confirmed aspirin 81 mg tablet,delayed 81 mg PO DAILY 09/14/20 12/19/21 release dapagliflozin 10 mg-metformin ER 1 tab PO DAILY 10/25/20 12/19/21 1,000 mg tablet,extended release 24hr (Xigduo XR) clonazepam 1 mg tablet 1 mg PO DAILY PRN anxiety 11/05/20 12/19/21 Previous Rx's Medication Instructions Recorded albuterol sulfate 90 mcg/actuation 1 inh inhalation QID PRN shortness 08/15/21 aerosol inhaler of breath or wheezing 30 days #8.5 grams blood sugar diagnostic (Southfork SolutionsTouch #100 ea 09/27/21 Ultra Test strips) dulaglutide 0.75 mg/0.5 mL 0.75 mg (0.5 mL) subcut QWEEK #2 mL 09/27/21 subcutaneous pen injector (Trulicity) lancets ([employer]Touch UltraSoft #100 ea 09/27/21 Lancets) nifedipine 60 mg tablet,extended 120 mg PO DAILY 90 days #180 tabs 10/03/21 release 24 hr spironolactone 25 mg tablet 12.5 mg PO DAILY #30 tabs 12/04/21 carvedilol 25 mg tablet 25 mg PO BID #180 tabs 12/06/21 amitriptyline 10 mg tablet 10 mg PO BEDTIME 30 days #30 tabs 12/19/21 lisinopril 10 mg tablet 20 mg PO BID 30 days #120 tabs 12/19/21 nicotine 21 mg/24 hr daily 1 patch transdermal DAILY 28 days 01/22/22 transdermal patch #28 ea Allergies Allergy/AdvReac Type Severity Reaction Status Date / Time Cephalosporins Allergy Intermediate RASH ALL Verified 12/19/21 15:37 [CEPHALOSPORINS] OVER amoxicillin Allergy Unknown rash Verified 12/19/21 15:37 cefaclor [From Ceclor] Allergy Unknown RASH Verified 12/19/21 15:37 cephalexin Allergy Unknown rash Verified 12/19/21 15:37 cephradine [From VELOSEF] Allergy Unknown RASH Verified 12/19/21 15:37 Penicillins [PENICILLINS] Allergy Unknown RASH Verified 12/19/21 15:37 gabapentin [GABAPENTIN] AdvReac Unknown RESTLESS Verified 12/19/21 15:37 LEGS, Body becomes very uncomfortable Review of Systems Review of Systems: Pertinent positives and negatives as stated in HPI 10 point review of systems is otherwise negative. [facility] Past Medical History Source: nursing notes reviewed Medical History Anxiety Bipolar 1 disorder Cardiomyopathy CKD (chronic kidney disease) stage 2, GFR 60-89 ml/min Diabetes mellitus Eclampsia Fatty liver H/O mixed connective tissue disease Heart block AV second degree High cholesterol History of DVT (deep vein thrombosis) HTN (hypertension) Hypersomnia Lupus Migraines Nicotine dependence, cigarettes, uncomplicated (~1999) PTSD (post-traumatic stress disorder) Rheumatoid arthritis Sjogren's disease Surgical History History of bronchoscopy (~11/2020) History of cholecystectomy (~05/2014) History of hysterectomy Family History Family History Father Substance use disorder Mental health disorder Brother Substance use disorder Mental health disorder Brother Substance use disorder Mental health disorder Other Diabetes HTN (hypertension) Social History Social History Household Members: Children Household Members Other:: boyfriend Housing: House Are you a primary daycare teacher to a significant other at home: No Do you presently have visiting nurse or other home services: No Alcohol intake: former Patient Tobacco Use Status: Never used Tobacco Tobacco use type: Cigarette Cigarette Packs Per Day: 0.5 Cigarettes Per Day: 10.0 Years Smoked: 20 e-Cigarette/Vaping Use: Never Used Second Hand Smoke Exposure: No Use of substances other than those prescribed or required for medical reasons: Yes Substance Use Type: IV Drugs Substance Use Frequency: Occasionally Last Used Substance: Days (ago) Any prior treatment program specific to substance use: No Advance Directives: Yes Advance Directives on File: Yes Advance Directives Date on File: 06/03/21 service: No Current occupational status: disabled Cognitive needs: No Hearing needs: No Vision needs: No Physical Exam Vital Signs: Vital Signs: Last Vital Signs Temp 97.6 F 01/27/22 00:07 Pulse 72 01/27/22 00:07 Resp 16 01/27/22 00:07 BP 201/111 H 01/27/22 00:07 Pulse Ox 97 01/27/22 00:07 O2 Del Method 01/27/22 00:07 Oxygen Flow Rate 2 01/26/22 22:37 BMI result Body Mass Index 29.4 VITAL SIGNS: Reviewed. GENERAL: Well developed, well nourished, in no acute distress. HEAD: Normocephalic/atraumatic EYES: PERRLA, EOMI EARS: Ext canals without abnormality OROPHARYNX: no oral lesions noted, posterior pharynx clear LUNGS: Normal breath sounds. No adventitious sounds or accessory muscle use. SpO2<97> CARDIOVASCULAR: Regular rate and rhythm without noted murmurs, no JVD or lower extremity edema. ABDOMEN: Soft, non-tender, non-distended with bowel sounds. MUSCULOSKELETAL: No tenderness, deformities, or effusions noted on gross inspection. EXTREMITIES: No cyanosis, clubbing or edema. SKIN: Inspection of the skin reveals no rashes NEUROLOGIC: Alert and oriented x 4. Strength and sensation to light touch were grossly intact x 4. Course Course Course Narrative: 41-year-old female with history and clinical presentation consistent with hypertensive malignancy with chest pain and reported dizziness. Patient remains hypertensive and will receive 1/2 inch of nitropaste, EKG shows diffuse ST depressions with LV strain. Patient in total received 30 mg of labetalol in the decision was made to start her on a labetalol drip. Cardiology was kept up-to-date on progression. 0045: I discussed the case with the shift mechanic who accepts admission. Reevaluation(s) Reevaluation #1: Discussed with cardiology who agrees with aggressive blood pressure control. Time: 23:00 MDM - Chest Pain Lab Data Result diagrams: 01/26/22 23:02 01/26/22 22:59 Labs: Lab Results 01/26/22 01/26/22 01/26/22 Range/Units 22:52 22:59 23:02 WBC 8.1 (4.8-10.8) X10*3/uL RBC 3.69 L (4.20-5.50) X10*6/uL Hgb 12.0 (12.0-16.0) g/dl Hct 33.3 L (37.0-47.0) % MCV 90.2 (80.0-98.0) fL MCH 32.5 (27.0-33.0) pg MCHC 36.0 H (31.0-35.0) g/dl RDW 13.2 (11.0-16.0) % Plt Count 304 D (160-400) X10*3/uL MPV 9.2 L (9.4-12.3) fL Immature Gran % (Auto) 0.2 (0.0-0.4) % Neut % (Auto) 75.2 H (45-73) % Lymph % (Auto) 14.2 L (20-40) % [place]ferro % (Auto) 9.0 (2-11) % Eos % (Auto) 1.0 (0-4) % Baso % (Auto) 0.4 (0-2) % Lymph # (Auto) 1.2 (1.2-4.9) X10*3/uL [place]ferro # (Auto) 0.7 (0.1-1.2) X10*3/uL Eos # (Auto) 0.1 (0.0-0.4) X10*3/uL Baso # (Auto) 0.0 (0.0-0.2) X10*3/uL Abs Immat Gran (auto) 0.02 (0.00-0.03) X10*3/uL Absolute Neuts (auto) 6.1 (2.0-8.3) x10*3/uL Absolute Nucleated RBC 0.000 (0.0-0.012) X10*3/uL Nucleated RBC % (auto) 0.0 (0.0-0.2) /100WBC PT (10.0-13.1) SEC INR (0.9-1.1) Sodium 137 (135-145) mmol/L Potassium 3.7 (3.3-5.1) mmol/L Chloride 105 (96-108) mmol/L Carbon Dioxide 22 (22-29) mmol/L Anion Gap 14 (12-20) BUN 20 H (9-16) mg/dL Creatinine 1.54 H (0.5-1.4) mg/dL Estim Creat Clear Calc 55.0 Estimated GFR 38 Random Glucose 130 H (60-115) mg/dL Calcium 8.8 D (8.4-10.2) mg/dL Total Bilirubin 1.1 H (0.0-1.0) mg/dL AST 12 (5-31) U/L ALT 7 (0-31) U/L Alkaline Phosphatase 85 (39-117) U/L Troponin I High Sens (<3.5-17.0) ng/L Total Protein 6.1 L (6.5-8.0) g/dL Albumin 3.9 (3.5-5.0) g/dL COVID-19 (TOM) Negative (Negative) COVID-19 Clin Com See Note 01/26/22 01/26/22 Range/Units 23:02 23:02 WBC (4.8-10.8) X10*3/uL RBC (4.20-5.50) X10*6/uL Hgb (12.0-16.0) g/dl Hct (37.0-47.0) % MCV (80.0-98.0) fL MCH (27.0-33.0) pg MCHC (31.0-35.0) g/dl RDW (11.0-16.0) % Plt Count (160-400) X10*3/uL MPV (9.4-12.3) fL Immature Gran % (Auto) (0.0-0.4) % Neut % (Auto) (45-73) % Lymph % (Auto) (20-40) % Tal[place]ferro % (Auto) (2-11) % Eos % (Auto) (0-4) % Baso % (Auto) (0-2) % Lymph # (Auto) (1.2-4.9) X10*3/uL [place] # (Auto) (0.1-1.2) X10*3/uL Eos # (Auto) (0.0-0.4) X10*3/uL Baso # (Auto) (0.0-0.2) X10*3/uL Abs Immat Gran (auto) (0.00-0.03) X10*3/uL Absolute Neuts (auto) (2.0-8.3) x10*3/uL Absolute Nucleated RBC (0.0-0.012) X10*3/uL Nucleated RBC % (auto) (0.0-0.2) /100WBC PT 12.8 (10.0-13.1) SEC INR 1.1 (0.9-1.1) Sodium (135-145) mmol/L Potassium (3.3-5.1) mmol/L Chloride (96-108) mmol/L Carbon Dioxide (22-29) mmol/L Anion Gap (12-20) BUN (9-16) mg/dL Creatinine (0.5-1.4) mg/dL Estim Creat Clear Calc Estimated GFR Random Glucose (60-115) mg/dL Calcium (8.4-10.2) mg/dL Total Bilirubin (0.0-1.0) mg/dL AST (5-31) U/L ALT (0-31) U/L Alkaline Phosphatase (39-117) U/L Troponin I High Sens 10.8 (<3.5-17.0) ng/L Total Protein (6.5-8.0) g/dL Albumin (3.5-5.0) g/dL COVID-19 (TOM) (Negative) COVID-19 Clin Com ECG Data ECG #1: Attestation: I personally reviewed and interpreted this ECG as follows: Prior ECG tracings: not available for review Interpretation: Sinus, HR-86, diffuse ST depressions in evidence of LV strain without ST elevation, AZ/QRS/QTC are within normal limits. Critical Care Time Critical Care Time Critical Care Time: Yes Total Critical Care Time: 30 Attestation: I personally attest to this time spent taking care of the patient. Discharge Plan Discharge Clinical Impression: Malignant hypertension, CKD (chronic kidney disease) Patient Disposition: Admitted As Inpatient Prescriptions: No Action albuterol sulfate 90 mcg/actuation HFA aerosol inhaler 1 inh inhalation QID PRN (Reason: shortness of breath or wheezing) 30 Days Qty: 8.5 3RF carvedilol 25 mg tablet 25 mg PO BID Qty: 180 1RF Rx Instructions: must administer with a meal/food nicotine 21 mg/24 hr patch 24 hour 1 patch transdermal DAILY 28 Days Qty: 28 0RF Xigduo XR 10-1,000 mg tablet, IR - ER, biphasic 24hr 1 tab PO DAILY aspirin 81 mg Tablet,Delayed Release (Dr/Ec) 81 mg PO DAILY spironolactone 25 mg Tablet 12.5 mg PO DAILY Qty: 30 0RF Protocol: Hold for SBP< HOLD for SBP < : 90 clonazepam 1 mg tablet 1 mg PO DAILY PRN (Reason: anxiety) lisinopril 10 mg tablet 20 mg PO BID 30 Days Qty: 120 3RF Hold Instructions: Resume on 01/21/21. Hold lisinopril until repeat BMP out patiently with PCP and follow-up with Nephrology. amitriptyline 10 mg tablet 10 mg PO BEDTIME 30 Days Qty: 30 3RF nifedipine 60 mg tablet extended release 24 hr 120 mg PO DAILY 90 Days Qty: 180 0RF Trulicity 0.75 mg/0.5 mL pen injector 0.75 mg subcut QWEEK Qty: 2 5RF (DME) OneTouch Ultra Test Strip See Rx Instructions .Route Qty: 100 4RF Rx Instructions: tests 3 X/day (DME) lancets [OneTouch UltraSoft Lancets] Misc See Rx Instructions .Route Qty: 100 5RF Rx Instructions: Tests 3 X/day
--- OUTSIDE RECORDS SUMMARY | 2022-01-26 23:02 | XMS_ITS | Continuity of Care Document ---
:1980 Author Organization [facility] Address [address] [place] [address]- Care Team Providers Name Role Phone Not on Staff, PCP Primary Care Physician Unavailable [place] [facility] [place] - 06/14/[address] [address] Discharge Disposition: A-Transfer SNF Attending Physician: Roxanne Cox MD Admitting Physician: Roxanne Cox MD Referring Physician: Not on Staff, Referring MD Allergies, Adverse Reactions, Alerts Substance Reaction Severity Status gabapentin Active cephalosporins Active penicillins1 Active 1rash. Tolerated cefazolin (per anes OR record this admission) and ceftriaxone (prev admission) Medications acetaminophen 325 mg oral tablet 975 mg, 3, tablet, By Mouth, 4 times a day, # 100 tablet, Refills 0, Tot. Refills 0, Acute 06/15/19 12:24:00 EDT, 06/14/19 12:22:00 EDT, Print Requisition Start Date: 06/14/19 Stop Date: 06/15/19 Status: OrderedamLODIPine 10 mg oral tablet 10 mg, 1, tablet, By Mouth, Daily, # 30 tablet, Refills 0, Tot. Refills 0, Maintenance, 06/14/19 12:22:00 EDT, Print Requisition Start Date: 06/14/19 Status: OrderedclonazePAM 0.5 mg oral tablet 1 tablet = 0.5 mg, By Mouth, Daily, PRN Anxiety, 0 Refills, Maintenance, 06/07/19 18:58:00 EST, Tablet Start Date: 06/07/19 Status: OrderedCoreg 12.5 mg oral tablet 12.5 mg, 1, tablet, By Mouth, 2 times a day, # 60 tablet, Refills 0, Tot. Refills 0, Maintenance, 06/14/19 12:22:00 EDT, Print Requisition Start Date: 06/14/19 Status: Orderedibuprofen 800 mg oral tablet 800 mg, 1, tablet, By Mouth, 3 times a day, PRN, # 60 tablet, Refills 0, Tot. Refills 0, Acute 06/15/19 12:24:00 EDT, Pain , Mild, 06/14/19 12:22:00 EDT, Print Requisition Start Date: 06/14/19 Stop Date: 06/15/19 Status: OrderedLaMICtal 25 mg oral tablet 50 mg, 2, tablet, By Mouth, Daily, # 180 tablet, Refills 0, Maintenance, 06/07/19 18:57:00 EST Start Date: 06/07/19 Status: OrderedoxyCODONE 5 mg oral tablet 10 mg, 2, tablet, By Mouth, Every 4 hours, PRN, for 7 days, # 84 tablet, Refills 0, Tot. Refills 0, Acute 06/21/19 12:23:00 EDT, Pain , Moderate, 06/14/19 12:23:00 EDT, Print Requisition, Partial fill upon patient request Start Date: 06/14/19 Stop Date: 06/21/19 Status: Ordered Problem List Condition Effective Dates Status Health Status Informant Anxiety and depression(Confirmed) Active Diabetes mellitus type 2(Confirmed) Active HTN (hypertension)(Confirmed) Active Sjogren's syndrome(Confirmed) Active Results Orders for Microbiology Reports Name Date Urine Culture (URINE CULTURE) 06/07/19 Microbiology Reports TEST:Urine Culture STATUS:Auth (Verified) BODY SITE: SOURCE:HAWKINS COLLECTED DATE/TIME:06/07/19 9:55 AMUrine Culture SPECIMEN DESCRIPTION : HAWKINS CATHETER SPECIAL REQUESTS : NONE Reflexed from [id number] CULTURE : NO GROWTH REPORT STATUS : FINAL 06/08/2019Radiology Reports (Most Recent Ten) Exam Date Time Procedure Performing Provider Status 06/14/19 6:31 AM Chest 2 Views Frontal and Lat Daylin Velazquez; Auth (Verified) Notes:(Chest 2 Views Frontal and Lat) Reason For Exam: Trauma;Other:RESULT: Chest 2 Views Frontal and Lat Chest 2 Views Frontal and Lat Indication: Pneumothorax COMPARISON: Multiple prior examinations, the most recent 06/13/2019 FINDINGS: LINES AND TUBES: None. LUNGS AND PLEURA: Stable small left pleural effusion with compressive atelectasis. The right lung is clear No pneumothorax. HEART, MEDIASTINUM AND LAURA: The cardiac and mediastinal contours are unchanged. BONES AND SOFT TISSUES: No acute abnormality. IMPRESSION: Stable small left pleural effusion with compressive atelectasis. No pneumothorax. I have personally reviewed the images and I agree with this report. WSN: [id number] Ordering Physician: Farhana Dhillon Dictated By: Ruddy Guthrie MD Dictated Date/Time: 06/14/19 11:59 a Reviewed By: Bon Cordero MD Signed By: Bon Cordero MD Signed Date/Time: 06/14/19 12:04 pm Transcribed By: IMAN Transcribed Date/Time: 06/14/19 10:08 am Exam Date Time Procedure Performing Provider Status 06/13/19 6:10 AM Chest 2 Views Frontal and Lat Sharlene Fraga; Auth (Verified) Notes:(Chest 2 Views Frontal and Lat) Reason For Exam: Trauma;Other:RESULT: Chest 2 Views Frontal and Lat Chest 2 Views Frontal and Lat Reason: Pneumothorax COMPARISON: Multiple prior examinations, the most recent 06/12/2019. FINDINGS: LINES AND TUBES: None. LUNGS AND PLEURA: Small left and trace right pleural effusions with compressive atelectasis. No pneumothorax. HEART, MEDIASTINUM AND LAURA: The cardiac and mediastinal contours are unchanged. BONES AND SOFT TISSUES: No acute abnormality. IMPRESSION: No change. Pneumonia in the medial left lower lobe is not excluded. I have personally reviewed the images and I agree with this report. WSN: [id number] Ordering Physician: Farhana Dhillon Dictated By: Ruddy Guthrie MD Dictated Date/Time: 06/13/19 9:51 am Reviewed By: Greg Seth MD Signed By: Greg Seth MD Signed Date/Time: 06/13/19 9:56 am Transcribed By: IMAN Transcribed Date/Time: 06/13/19 9:01 am Exam Date Time Procedure Performing Provider Status 06/12/19 6:51 AM Chest 2 Views Frontal and Lat Sharlene Fraga; Auth (Verified) Notes:(Chest 2 Views Frontal and Lat) Reason For Exam: Trauma;Other:RESULT: Chest 2 Views Frontal and Lat AP and lateral chest x-ray dated June. Comparison films are from June 10 and June 10, 2019. HISTORY: Follow-up abnormal chest x-ray. FINDINGS: The cardiac silhouette is increased in size and unchanged. Increased opacity is present atthe lung bases left greater than right consistent with effusions. Superimposed atelectasis or pneumonia especially on the left cannot be excluded. No pneumothorax is appreciated. Visualized osseous structures are unremarkable. IMPRESSION: No significant change in bibasilar effusions with associated atelectasis or pneumonia not excluded especially on the left. Examination [id number]. Thank you for allowing me to participate in the care of this patient. WSN: [id number] Ordering Physician: Sebastian Johnson Dictated By: Humza Lindsay MD Dictated Date/Time: 06/12/19 9:18 am Reviewed By: Humza Lindsay MD Signed By: Humza Lindsay MD Signed Date/Time: 06/12/19 9:18 am Transcribed By: IMAN Transcribed Date/Time: 06/12/19 9:17 am Exam Date Time Procedure Performing Provider Status 06/11/19 6:36 AM Chest 2 Views Frontal and Lat Sharlene Fraga; Auth (Verified) Notes:(Chest 2 Views Frontal and Lat) Reason For Exam: Trauma;Other:RESULT: Chest 2 Views Frontal and Lat AP and lateral chest x-ray dated June 11, 2019. Comparison films are from June 09 and June 09, 2019. HISTORY: Follow-up abnormal chest x-ray. FINDINGS: The cardiac silhouette is increased in size and has increased slightly from the prior study. Hilar and mediastinal structures are unremarkable. Opacity is present at the lung bases left greater than right consistent with effusion, atelectasis, pneumonia, or any combination. This is stable. Visualized osseous structures are unremarkable. IMPRESSION: No significant interval change. Examination [id number]. Thank you for allowing me to participate in the care of this patient. WSN: [id number] Ordering Physician: Sebastian Johnson Dictated By: Humza Lindsay MD Dictated Date/Time: 06/11/19 10:47 a Reviewed By: Humza Lindsay MD Signed By: Humza Lindsay MD Signed Date/Time: 06/11/19 10:47 am Transcribed By: IMAN Transcribed Date/Time: 06/11/19 10:47 am Exam Date Time Procedure Performing Provider Status 06/10/19 5:52 AM Chest 2 Views Frontal and Lat Cruzito Fraga (Verified) Notes:(Chest 2 Views Frontal and Lat) Reason For Exam: Trauma;Other:RESULT: Chest 2 Views Frontal and Lat Chest 2 Views Frontal and Lat INDICATION / CLINICAL QUESTION: Trauma. Postop right hip surgery. COMPARISON: Yesterday FINDINGS: LINES AND TUBES: None. LUNGS AND PLEURA: Bilateral pleural effusions and basilar consolidation probably not significantly changed, left slightly worse than right. Clear upper lungs. No pneumothorax. HEART, MEDIASTINUM AND LAURA: Normal. BONES AND SOFT TISSUES: Normal. IMPRESSION: Unchanged bilateral effusions and basilar consolidation, left slightly worse than right. WSN: [id number] Ordering Physician: Sebastian Johnson Dictated By: Jaskaran Alas MD Dictated Date/Time: 06/10/19 8:13 am Reviewed By: Jaskaran Alas MD Signed By: Jaskaran Alas MD Signed Date/Time: 06/10/19 8:13 am Transcribed By: IMAN Transcribed Date/Time: 06/10/19 8:03 am Exam Date Time Procedure Performing Provider Status 06/09/19 11:53 AM Chest 2 Views Frontal and Lat Jennifer Baut[facility] (Verified) Notes:(Chest 2 Views Frontal and Lat) Reason For Exam: Trauma;Other:RESULT: Chest 2 Views Frontal and Lat Chest 2 Views Frontal and Lat Reason: Other:; Trauma; Clinical Question(s): Pleural Effusion COMPARISON: Prior chest radiographs dated June 07, 2019 and chest CTA dated June 06, 2019. FINDINGS: LINES AND TUBES: None. LUNGS AND PLEURA: Low lung volumes resulting vascular crowding and bibasilar atelectasis. Scattered airspace opacitieswithin the left lung appear improved when compared with the prior study. Evaluation is somewhat limited by overlying soft tissue. No definite effusion. No residual pneumothorax identified. HEART, MEDIASTINUM AND LAURA: Heart is normal in size. Normal mediastinal and hilar contour. BONES AND SOFT TISSUES: Displaced rib fractures of the left lower ribs are grossly unchanged, better visualized on prior studies. Subcutaneous emphysema has improved. IMPRESSION: Low lung volumes. Slight improvement in left lung scattered airspace opacities. No pneumothorax identified. WSN: [id number] Ordering Physician: Sebastian Johnson Dictated By: Bon Cordero MD Dictated Date/Time: 06/09/19 11:59 a Reviewed By: Bon Cordero MD Signed By: Bon Cordero MD Signed Date/Time: 06/09/19 11:59 am Transcribed By: IMAN Transcribed Date/Time: 06/09/19 11:57 am Exam Date Time Procedure Performing Provider Status 06/08/19 1:41 PM Pelvis 1 or 2 Views Purnima Rosen; Seth (Syl ified) Notes:(Pelvis 1 or 2 Views) Reason For Exam: TraumaRESULT: Pelvis 1 or 2 Views Pelvis 1 or 2 Views Reason: Trauma; Fracture. COMPARISON: Multiple priors FINDINGS: Lateral plate with multiple compression screws transfix RIGHT posterior wall fractures. The alignment is anatomic on the given views. Postsurgical changes in the surrounding soft tissues. Questionable soft tissue density in the central location of the pelvis. Foreign body cannot be excluded. IMPRESSION: Hardware in the RIGHT hemipelvis as above. Questionable soft tissue density in the central location of the pelvis. Foreign body cannot be excluded. Correlate clinically. WSN: [id number] Ordering Physician: Margarito Romero Dictated By: Jennie Lara MD, V Dictated Date/Time: 06/08/19 3:29 pm Reviewed By: Jennie Lara MD, V Signed By: Jennie Lara MD, V Signed Date/Time: 06/08/19 3:29 pm Transcribed By: IMAN Transcribed Date/Time: 06/08/19 3:26 pm Exam Date Time Procedure Performing Provider Status 06/07/19 9:25 PM Ankle Min 3 Views Right Yaya Livingston; Seth (Ve rified) Notes:(Ankle Min 3 Views Right) Reason For Exam: TraumaRESULT: Ankle Min 3 Views Right PROCEDURE: Ankle Min 3 Views Right CLINICAL INDICATION: 39 years old Female with Trauma; Clinical Question(s): Fracture. COMPARISONS: None. FINDINGS: Bones and joints: There is a small avulsion fracture along the inferior aspect of the medial malleolus. No other acute fracture is seen. Joint spaces are normal. Evidence of calcific enthesopathy alongthe dorsal and plantar aspect of the calcaneus. There is fragmentation in the plantar spur, which may be sequela of remote injury. Soft Tissues: Soft tissue swelling about the ankle. No evidence of radiopaque foreign body. IMPRESSION: 1. Small avulsion fracture along the inferior aspect of the medial malleolus. Thank you for allowing me to participate in the care of this patient. A [place] message has been communicated via the [employer] system on 06/07/2019 10:06 PM, Message ID [id number]. WSN: [id number] Dictated By: Aubrey Veras MD Dictated Date/Time: 06/07/19 10:06 p Reviewed By: Aubrey Veras MD Signed By: Aubrey Veras MD Signed Date/Time: 06/07/19 10:06 pm Transcribed By: IMAN Transcribed Date/Time: 06/07/19 10:04 pm Exam Date Time Procedure Performing Provider Status 06/07/19 2:45 PM C-Arm > 1 Hour Yahir Antony; Auth (Verified ) Notes:(C-Arm > 1 Hour) Reason For Exam: orif rt. acetabulumRESULT: C-Arm > 1 Hour Pelvis 1 or 2 Views, C-Arm > 1 Hour Reason: orif rt. acetabulum COMPARISON: None. FINDINGS: 10 fluoroscopic spot images submitted intraoperatively during ORIF of a right acetabular fracture. Technologist time: 1 hour 5 minutes Fluoroscopy time: 49 seconds IMPRESSION: See above WSN: [id number] Dictated By: Darrion Brandon MD Dictated Date/Time: 06/07/19 3:55 pm Reviewed By: Darrion Brandon MD Signed By: Darrion Brandon MD Signed Date/Time: 06/07/19 3:55 pm Transcribed By: CSIrene Transcribed Date/Time: 06/07/19 3:53 pm Exam Date Time Procedure Performing Provider Status 06/07/19 2:45 PM Pelvis 1 or 2 Views Yahir Antony; Auth (Veri fied) Notes:(Pelvis 1 or 2 Views) Reason For Exam: orif rt. acetabulumRESULT: Pelvis 1 or 2 Views Pelvis 1 or 2 Views, C-Arm > 1 Hour Reason: orif rt. acetabulum COMPARISON: None. FINDINGS: 10 fluoroscopic spot images submitted intraoperatively during ORIF of a right acetabular fracture. Technologist time: 1 hour 5 minutes Fluoroscopy time: 49 seconds IMPRESSION: See above WSN: [id number] Dictated By: Darrion Brandno MD Dictated Date/Time: 06/07/19 3:55 pm Reviewed By: Darrion Brandon MD Signed By: Darrion Brandon MD Signed Date/Time: 06/07/19 3:55 pm Transcribed By: IMAN Transcribed Date/Time: 06/07/19 3:53 pm Vital Signs Most recent to oldest 1 2 3 [Reference Range]: Height 168 cm 168 cm 168 cm (06/12/19 7:25 AM) (06/12/19 3:06 AM) (06/11/19 11:00 PM) Weight 99.9 kg 110 kg 110 kg (06/07/19 7:00 PM) (06/07/19 6:00 AM) (06/07/19 6:00 A M) Oxygen Saturation [94-100 97 % 96 % 98 % %] (06/14/19 3:00 PM) (06/14/19 11:00 AM) (06/14/19 7: 00 AM) Pulse Rate [55-90 bpm] 95 bpm 88 bpm 89 bpm *H* (06/14/19 11:00 AM) (06/14/19 8:05 AM) (06/14/19 3:00 PM) Body Mass Index 38.97 [18.5-24.99] *>HHI* (06/07/19 4:17 AM) Blood Pressure 156/87 mm Hg 167/94 mm Hg 167/94 mm Hg [90-138/55-84 mm Hg] *H* *H* *H* (06/14/19 3:00 PM) (06/14/19 11:08 AM) (06/14/19 11 :00 AM) Respiratory Rate [16-30 18 br/min 16 br/min 16 br/mi n br/min] (06/14/19 3:09 PM) (06/14/19 11:08 AM) (06/14/19 11 :00 AM) Temperature [96.8-100.4 98.1 DegF 98.4 DegF 98.6 Deg F DegF] (06/14/19 3:00 PM) (06/14/19 11:00 AM) (06/14/19 7: 00 AM) Liters per Minute 2 L/min 2 L/min 2 L/min (06/10/19 7:45 PM) (06/09/19 10:00 PM) (06/09/19 7:00 PM) Mode of Delivery (Oxygen) Room air Room air Room a ir (06/14/19 3:00 PM) (06/14/19 11:00 AM) (06/14/19 7: 00 AM) Blood pressure sites Arm, right Arm, right Arm, right (06/14/19 3:00 PM) (06/14/19 11:00 AM) (06/14/19 7: 00 AM) Temperature Route Oral Oral Oral (06/14/19 3:00 PM) (06/14/19 11:00 AM) (06/14/19 7: 00 AM) Dry Weight 100 kg 110 kg 110 kg (06/07/19 5:11 AM) (06/07/19 5:11 AM) (06/07/19 4:17 A M) Weight Obtained Via Bed scale Bed scale Bed scale (06/07/19 7:00 PM) (06/07/19 6:00 AM) (06/07/19 6:00 A M) Dry Weight Obtained Via Bed scale (06/07/19 4:17 AM) Sensory deficits None (06/07/19 4:17 AM) Mobility assistance Ambulate, assist of 2 Independent Immobi le, (06/08/19 12:10 PM) (06/07/19 9:55 AM) Total assista nce (06/07/19 4:52 AM)
[2022-01-26 23:10] LABS: Basophils Percent Auto 0.4 % (0-2); Eosinophils Absolute Auto 0.1 X10*3/uL (0.0-0.4); Hematocrit 33.3 % (37.0-47.0); Imm Gran Abs Auto 0.02 X10*3/uL (0.00-0.03); Imm Gran Pct Auto 0.2 % (0.0-0.4); Lymphocytes Absolute Auto 1.2 X10*3/uL (1.2-4.9); Lymphocytes Percent Auto 14.2 % (20-40); MANUAL DIFF FLAG NO; Mean Corpuscular Hemoglobin 32.5 pg (27.0-33.0); Mean Corpuscular Volume 90.2 fL (80.0-98.0); Mean Platelet Volume 9.2 fL (9.4-12.3); Monocytes Absolute Auto 0.7 X10*3/uL (0.1-1.2); Neutrophils Absolute Auto 6.1 x10*3/uL (2.0-8.3); Neutrophils Percent Auto 75.2 % (45-73); Platelet Count 304 X10*3/uL (160-400); Red Blood Count 3.69 X10*6/uL (4.20-5.50); Red Cell Distribution Width 13.2 % (11.0-16.0); White Blood Count 8.1 X10*3/uL (4.8-10.8)
[2022-01-26] MEDS: Labetalol HCL 100 MG/20 ML VIAL 10 MG IVPUSH (23:10)
[2022-01-26 23:15] LABS: INTERNATIONAL NORM RATIO 1.1 (0.9-1.1); Prothrombin Time 12.8 SEC (10.0-13.1)
[2022-01-26 23:22] LABS: COVID-19 Test Negative (Negative)
[2022-01-26 23:28] LABS: Alanine Aminotransferase 7 U/L (0-31); Albumin Level 3.9 g/dL (3.5-5.0); Alkaline Phosphatase 85 U/L (39-117); Anion Gap 14 (12-20); Aspartate Amino Transferase 12 U/L (5-31); Bilirubin Total 1.1 mg/dL (0.0-1.0); Blood Urea Nitrogen 20 mg/dL (9-16); Calcium 8.8 mg/dL (8.4-10.2); Carbon Dioxide 22 mmol/L (22-29); Chloride 105 mmol/L (96-108); Estimated Glomerular Filt Rate 38; Glucose Random 130 mg/dL (60-115); Potassium 3.7 mmol/L (3.3-5.1); Sodium 137 mmol/L (135-145); Total Protein 6.1 g/dL (6.5-8.0)
[2022-01-26 23:32] LABS: Troponin-I High Sensitivity 10.8 ng/L (<3.5-17.0)
[2022-01-26] MEDS: Labetalol HCL 100 MG/20 ML VIAL 20 MG IVPUSH (23:37)
[2022-01-27] VITALS (26 sets, daily range): BP systolic 133–202; BP diastolic 67–121; PULSE 66–104; RESP 12–21; TEMP 36.4–37.1; O2SAT 90–97; BMI 27.6
--- NOTE | 2022-01-27 | ECG_ITS ---
Test Reason : Chest pressure Blood Pressure : / mmHG Vent. Rate : 063 BPM Atrial Rate : 063 BPM P-R Int : 168 ms QRS Dur : 098 ms QT Int : 428 ms P-R-T Axes : 047 010 160 degrees QTc Int : 437 ms Normal sinus rhythm Left ventricular hypertrophy with repolarization abnormality ( R in aVL , Sokolow-Abarca ) Abnormal ECG When compared with ECG of 27-JAN-2022 01:09, No significant changes seen Referred By: Kailee Armas Electronically Signed By:HUMERA OLMSTEAD MD
--- NOTE | 2022-01-27 00:50 | ECG_ITS ---
Test Reason : CHEST PAIN Blood Pressure : / mmHG Vent. Rate : 069 BPM Atrial Rate : 069 BPM P-R Int : 160 ms QRS Dur : 094 ms QT Int : 410 ms P-R-T Axes : 043 002 163 degrees QTc Int : 439 ms Normal sinus rhythm Possible Left atrial enlargement Left ventricular hypertrophy with repolarization abnormality ( R in aVL , Sokolow-Abarca , Omar product , Romhilt-Peres ) Abnormal ECG When compared with ECG of 26-JAN-2022 22:45, No significant change was found Referred By: Christi Villanueva Electronically Signed By:HUMERA OLMSTEAD MD
[2022-01-27] MEDS: niCARdipine HCL 25 MG in 0.9 % Sodium Chloride 250 ML 52 MG IVCONT ×2 (01:05→11:28)
[2022-01-27 01:23] LABS: Alanine Aminotransferase < 6 U/L (0-31); Albumin Level 3.6 g/dL (3.5-5.0); Alkaline Phosphatase 85 U/L (39-117); Anion Gap 14 (12-20); Aspartate Amino Transferase 10 U/L (5-31); Bilirubin Total 0.8 mg/dL (0.0-1.0); Blood Urea Nitrogen 21 mg/dL (9-16); Calcium 8.9 mg/dL (8.4-10.2); Carbon Dioxide 24 mmol/L (22-29); Chloride 105 mmol/L (96-108); Creatinine Clr Calc Pharmacy 51.6; Estimated Glomerular Filt Rate 35; Glucose Random 139 mg/dL (60-115); Potassium 3.7 mmol/L (3.3-5.1); Sodium 139 mmol/L (135-145); Total Protein 5.8 g/dL (6.5-8.0)
[2022-01-27 01:25] LABS: Troponin-I High Sensitivity 12.5 ng/L (<3.5-17.0)
[2022-01-27] MEDS: Heparin Sodium,Porcine 5,000 UNIT/ML VIAL 5000 UNIT SUBCUT ×2 (01:47→07:45)
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
[2022-01-27 01:52] LABS: B Type Natriuretic Peptide 1341 pg/mL (<100)
--- NOTE | 2022-01-27 02:33 | PC.NURSE ---
Nurse to nurse report given to Julien SULKY DRIVER. Patient to be transported to ICU bed 254 y RN and scada technician.
[2022-01-27] MEDS: niCARdipine HCL 25 MG in 0.9 % Sodium Chloride 250 ML 130 MG IVCONT ×3 (03:10→08:59)
--- NOTE | 2022-01-27 04:51 | PC.NURSE ---
Addendum entered by Sigifredo Umaña RN 01/27/22 06:03: PATIENT PREVIOUSLY RELATED MY OXYGEN LEVELS GO DOWN WHEN I SLEEP BUT MY SLEEP STUDY WAS NORMAL ...SAO2 89-90% ASLEEP..AWAKENED..ALERT..ORIENTED X3..O2 PLACE 2 L/M CANNULA...DENIED ANY HEADACHE...CARDENE DRIP WEANED TO 10 MG/HR..BP 153/74...NSR..NO ECTOPY Addendum entered by Sigifredo Umaña RN 01/27/22 05:20: AWAKE..ALERT..ORIENTED X3....SBP 150'S-160'S...C/O MODERATE HEADACHE...NITRO PASTE WIPED OFF..ICU PA UPDATED...TYLENOL 650MG PO X1 GIVEN...OOB TO COMMODE STEADY GAIT TO VOID..RESTFUL AFTERWARDS Original Note: ADMIT TO 254-1 VIA STRETCHER..ALERT..ORIENTED X3...RESPIRATIONS EASY....REPORTS MILD CHEST PAIN MARKEDLY DECREASED FROM ARRIVAL TO ER...NSR..NO ECTOPY...NICARDIPINE DRIP 12.5 MG/HR...SBP 150-170...DENIES DIZZYNESS...OOB TO BEDSIDE COMMODE WITH STEADY GAIT..VOIDED 550ML YELLOW URINE..RESTFUL...DOZING W/O DIFFICULTY....REEAT AM LABS PENDING..DENIED DISCOMFORT AT [facility]
[2022-01-27 05:16] LABS: MANUAL DIFF FLAG NO
[2022-01-27] MEDS: Acetaminophen 325 MG TABLET 975 MG PO ×3 (05:16→23:58)
[2022-01-27 05:41] LABS: Basophils Percent Auto 0.4 % (0-2); Eosinophils Absolute Auto 0.2 X10*3/uL (0.0-0.4); Eosinophils Percent Auto 2.1 % (0-4); Hematocrit 34.9 % (37.0-47.0); Hemoglobin 12.4 g/dl (12.0-16.0); Imm Gran Abs Auto 0.02 X10*3/uL (0.00-0.03); Imm Gran Pct Auto 0.2 % (0.0-0.4); Lymphocytes Absolute Auto 1.7 X10*3/uL (1.2-4.9); Lymphocytes Percent Auto 19.9 % (20-40); Mean Corpuscular HGB Conc 35.5 g/dl (31.0-35.0); Mean Corpuscular Hemoglobin 32.3 pg (27.0-33.0); Mean Corpuscular Volume 90.9 fL (80.0-98.0); Monocytes Absolute Auto 0.9 X10*3/uL (0.1-1.2); Monocytes Percent Auto 10.8 % (2-11); Neutrophils Absolute Auto 5.6 x10*3/uL (2.0-8.3); Neutrophils Percent Auto 66.6 % (45-73); Platelet Count 334 X10*3/uL (160-400); Red Blood Count 3.84 X10*6/uL (4.20-5.50); Red Cell Distribution Width 13.1 % (11.0-16.0); White Blood Count 8.4 X10*3/uL (4.8-10.8)
[2022-01-27 05:56] LABS: Alanine Aminotransferase < 6 U/L (0-31); Alkaline Phosphatase 103 U/L (39-117); Anion Gap 16 (12-20); Aspartate Amino Transferase 11 U/L (5-31); Bilirubin Total 0.8 mg/dL (0.0-1.0); Blood Urea Nitrogen 18 mg/dL (9-16); Calcium 9.1 mg/dL (8.4-10.2); Carbon Dioxide 22 mmol/L (22-29); Chloride 104 mmol/L (96-108); Creatinine Clr Calc Pharmacy 50.7; Estimated Glomerular Filt Rate 35; Glucose Random 174 mg/dL (60-115); Potassium 3.5 mmol/L (3.3-5.1); Sodium 138 mmol/L (135-145); Total Protein 6.3 g/dL (6.5-8.0)
[2022-01-27 05:57] LABS: Troponin-I High Sensitivity 16.6 ng/L (<3.5-17.0)
[2022-01-27] MEDS: niCARdipine HCL 25 MG in 0.9 % Sodium Chloride 250 ML 104 MG IVCONT (06:44)
[2022-01-27 07:17] LABS: Glucose, Whole Blood 120 mg/dL (60-115)
[2022-01-27] MEDS: Nicotine 14 MG PATCH.TD24 TRANSDERMA (07:44)
--- NOTE | 2022-01-27 07:46 | PHA.MEDREC ---
Pharmacy Consult ? Medication Reconciliation Pharmacy has completed the medication reconciliation.Reviewed med rec done by nursing.
--- NOTE | 2022-01-27 09:43 | MHC.CM.PN ---
Met with pt and significant other to review d/c planning: Pt resides with 3 children, has no services and does not have barriers to care. Her PCP is Mauricio Nolasco, HCP verified and on file, IMM in chart. D/C plan is for a return to home without services. S.O. to transport.
--- NOTE | 2022-01-27 09:57 | PM.CCPN ---
Subjective Subjective Date of Service: 01/27/22 Critical Care Time (minutes): 0 Comment: Briefly, This is a 41-year-old female with underlying history of hypertension, diastolic CHF, diabetes mellitus type 2, chronic kidney disease stage 3(Baseline GFR 28-38), and others, who presented to the emergency room yesterday afternoon with sudden onset chest discomfort after a 2-3 day history of nausea, vomiting, and diarrhea. Patient reports compliance with all medications but had been vomiting. Upon arrival to the emergency room her blood pressure was as high as 242/147. She received 2 doses of labetalol with very little effect and was therefore started on a nicardipine drip and admitted to the ICU early this morning. The patient reports feeling better this morning. She denies chest discomfort. She denies nausea, vomiting, or diarrhea and reported feeling hungry. She was able to tolerate breakfast this morning. Physical Exam Vital Signs: Vital Signs: BP 133/73 HR 66 RR 18 T 98.5 O2 93%2LNC Const: General: cooperative, healthy appearing, comfortable and no acute distress Nutritional Appearance: average body habitus and well nourished Orientation/consciousness: patient oriented x3 Limitations: no limitations HEENT: Head: Yes normocephalic Resp: Effort & Inspection: normal respiratory effort and able to speak in complete sentences Cardio: Rate: regular rate Rhythm: regular rhythm GI: Auscultation: normoactive bowel sounds Skin: Other: Multiple tattoos throughout the bilateral upper extremities, bilateral neck areas and upper posterior thoracic area. Neuro: General: patient oriented x3 Objective Data Labs CBC & Chem 7: 01/27/22 04:55 01/27/22 04:55 Labs: Laboratory Results - last 24 hr 01/26/22 01/26/22 01/26/22 22:52 22:59 23:02 WBC 8.1 RBC 3.69 L Hgb 12.0 Hct 33.3 L MCV 90.2 MCH 32.5 MCHC 36.0 H RDW 13.2 Plt Count 304 D MPV 9.2 L Immature Gran % (Auto) 0.2 Neut % (Auto) 75.2 H Lymph % (Auto) 14.2 L [place] % (Auto) 9.0 Eos % (Auto) 1.0 Baso % (Auto) 0.4 Lymph # (Auto) 1.2 [place] # (Auto) 0.7 Eos # (Auto) 0.1 Baso # (Auto) 0.0 Abs Immat Gran (auto) 0.02 Absolute Neuts (auto) 6.1 Absolute Nucleated RBC 0.000 Nucleated RBC % (auto) 0.0 PT INR Sodium 137 Potassium 3.7 Chloride 105 Carbon Dioxide 22 Anion Gap 14 BUN 20 H Creatinine 1.54 H Estim Creat Clear Calc 55.0 Estimated GFR 38 POC Glucose Random Glucose 130 H Calcium 8.8 D Total Bilirubin 1.1 H AST 12 ALT 7 Alkaline Phosphatase 85 Troponin I High Sens B-Natriuretic Peptide Total Protein 6.1 L Albumin 3.9 COVID-19 (TOM) Negative COVID-19 Clin Com See Note 01/26/22 01/26/22 01/27/22 23:02 23:02 01:00 WBC RBC Hgb Hct MCV MCH MCHC RDW Plt Count MPV Immature Gran % (Auto) Neut % (Auto) Lymph % (Auto) [place] % (Auto) Eos % (Auto) Baso % (Auto) Lymph # (Auto) [place] # (Auto) Eos # (Auto) Baso # (Auto) Abs Immat Gran (auto) Absolute Neuts (auto) Absolute Nucleated RBC Nucleated RBC % (auto) PT 12.8 INR 1.1 Sodium 139 Potassium 3.7 Chloride 105 Carbon Dioxide 24 Anion Gap 14 BUN 21 H Creatinine 1.64 H Estim Creat Clear Calc 51.6 Estimated GFR 35 POC Glucose Random Glucose 139 H Calcium 8.9 Total Bilirubin 0.8 AST 10 ALT < 6 Alkaline Phosphatase 85 Troponin I High Sens 10.8 B-Natriuretic Peptide Total Protein 5.8 L Albumin 3.6 COVID-19 (TOM) COVID-19 [employer] 01/27/22 01/27/22 01/27/22 01:00 04:55 04:55 WBC 8.4 RBC 3.84 L Hgb 12.4 Hct 34.9 L MCV 90.9 MCH 32.3 MCHC 35.5 H RDW 13.1 Plt Count 334 MPV 10.0 Immature Gran % (Auto) 0.2 Neut % (Auto) 66.6 Lymph % (Auto) 19.9 L [place] % (Auto) 10.8 Eos % (Auto) 2.1 Baso % (Auto) 0.4 Lymph # (Auto) 1.7 [place] # (Auto) 0.9 Eos # (Auto) 0.2 Baso # (Auto) 0.0 Abs Immat Gran (auto) 0.02 Absolute Neuts (auto) 5.6 Absolute Nucleated RBC 0.000 Nucleated RBC % (auto) 0.0 PT INR Sodium 138 Potassium 3.5 Chloride 104 Carbon Dioxide 22 Anion Gap 16 BUN 18 H Creatinine 1.62 H Estim Creat Clear Calc 50.7 Estimated GFR 35 POC Glucose Random Glucose 174 H Calcium 9.1 Total Bilirubin 0.8 AST 11 ALT < 6 Alkaline Phosphatase 103 D Troponin I High Sens 12.5 B-Natriuretic Peptide 1341 H Total Protein 6.3 L Albumin 4.0 COVID-19 (TOM) COVID-19 [employer] 01/27/22 01/27/22 04:55 07:13 WBC RBC Hgb Hct MCV MCH MCHC RDW Plt Count MPV Immature Gran % (Auto) Neut % (Auto) Lymph % (Auto) [place] % (Auto) Eos % (Auto) Baso % (Auto) Lymph # (Auto) [place] # (Auto) Eos # (Auto) Baso # (Auto) Abs Immat Gran (auto) Absolute Neuts (auto) Absolute Nucleated RBC Nucleated RBC % (auto) PT INR Sodium Potassium Chloride Carbon Dioxide Anion Gap BUN Creatinine Estim Creat Clear Calc Estimated GFR POC Glucose 120 H Random Glucose Calcium Total Bilirubin AST ALT Alkaline Phosphatase Troponin I High Sens 16.6 B-Natriuretic Peptide Total Protein Albumin COVID-19 (TOM) COVID-19 Clin Com Progress Note: A&P Assessment and plan (1) Hypertensive urgency: Status: Acute Assessment and Plan: Hypertensive urgency in the setting of recent viral illness and inability to maintain her PO intake of medications (no evidence of end-organ damage or neurological symptomatology). (2) CKD (chronic kidney disease): Status: Acute Assessment and Plan: Stable chronic kidney disease stage 3. (3) Chest pain: Status: Acute Assessment and Plan: Chest pain unlikely acute coronary syndrome (normal troponin, unchanged EKG from prior). (4) Diabetes mellitus: Status: Acute Assessment and Plan: History of diabetes mellitus type 2 appears controlled on home medication regimen. (5) Nicotine dependence, cigarettes, uncomplicated: Status: Acute Assessment and Plan: Tobacco abuse (counseling done and nicotine patches ordered) Plan Patient denies any further nausea, vomiting, or diarrhea. I have resumed home medications. Nicardipine drip discontinued. Advance diet: Diabetic diet 1800 calories. Stable for transfer to medical floor. Will sign out to hospitalist. Quality Stroke Does the patient have a stroke diagnosis?: No VTE Prior VTE?: No VTE Risk Level:: Medical - low (Heparin and sequential compression dc'd. Pt will be OOB and ambulating.) VTE Device Contraindication: Treatment Not Indicated VTE Drug Contraindication: Treatment Not Indicated
[2022-01-27] MEDS: NIFEdipine ER 60 MG TAB.ER.24 PO (10:02)
[2022-01-27] MEDS: Spironolactone 25 MG TABLET 100 MG PO (10:02)
[2022-01-27] MEDS: lisinopriL 20 MG TABLET PO ×2 (10:02→19:51)
[2022-01-27] MEDS: Aspirin Enteric Coated 81 MG TABLET.DR PO (10:02)
[2022-01-27] MEDS: carvediloL 12.5 MG TABLET 50 MG PO ×2 (10:02→19:51)
[2022-01-27 11:24] LABS: Glucose, Whole Blood 164 mg/dL (60-115)
[2022-01-27 12:18] LABS: Glucose, Whole Blood 139 mg/dL (60-115)
--- NOTE | 2022-01-27 13:29 | PM.EVENT ---
Event Note Date of Service: 01/27/22 Event Note: 41 year old women with a hx of HTN admitted to ICU for Hypertensive Emergency (Chest pain/discomfort) due to likely not taking medications for 2-3 days after having nausea, vomiting and diarrhea secondary to a possible gastrointestinal illness. Nausea and vomiting have resolved. Patient was initially treated with IV labetalol x2 with very minimal effect and subsequently started on nicardipine drip. Hypertensive emergency. Meeting criteria with chest pain/discomfort Treated in the ICU with nicardipine drip with good effect Blood pressure now down to reasonable numbers Continue home medications Chronic kidney disease stage 3 Creatinine 1.62 Appears to be near baseline Follow BMP Diabetes mellitus Sliding scale, ADA diet Tobacco use disorder Discussed importance of cessation Nicotine replacement offered
[2022-01-27] MEDS: Albuterol Sulfate 90 MCG 8 GM INHALER 1 PUFF INHALE (15:44)
--- NOTE | 2022-01-27 16:31 | PM.EVENT ---
Documented by User: Kailee Armas NP 01/27/22 16:55 Event Note Date of Service: 01/27/22 Event Note: Pt complained of mild chest pressure; denies chest pain. Unable to quantify. Is not reproducable. Pt breathing easy and unlabored. She appears comfortable, sitting up in bed, watching TV and texting on phone. Albuterol given. BP 135/82 HR 69 RR 15 T 98.7 O2 97%. EKG showed no significant change when compared with ECG of 27-JAN-2022 @ 0109. Documented by User: Gerson Ward MD 01/28/22 15:30 Event Note Date of Service: 01/28/22
[2022-01-27 16:38] LABS: Glucose, Whole Blood 103 mg/dL (60-115)
[2022-01-27] MEDS: clonazePAM 1 MG TABLET PO (17:04)
[2022-01-27] MEDS: Amitriptyline HCl 10 MG TABLET PO (19:51)
[2022-01-27 19:59] LABS: Glucose, Whole Blood 121 mg/dL (60-115)
[2022-01-28 04:00] VITALS: BP 138/76; PULSE 60; RESP 18; O2SAT 95
[2022-01-28 07:30] LABS: Glucose, Whole Blood 140 mg/dL (60-115)
[2022-01-28 08:00] VITALS: BP 155/87; PULSE 75; RESP 19; TEMP 36.4; O2SAT 98; BMI 26.9
[2022-01-28] MEDS: Aspirin Enteric Coated 81 MG TABLET.DR PO (08:01)
[2022-01-28] MEDS: carvediloL 12.5 MG TABLET 50 MG PO (08:02)
[2022-01-28] MEDS: Spironolactone 25 MG TABLET 100 MG PO (08:02)
[2022-01-28] MEDS: lisinopriL 20 MG TABLET PO (08:02)
[2022-01-28] MEDS: Nicotine 14 MG PATCH.TD24 TRANSDERMA (08:02)
[2022-01-28] MEDS: NIFEdipine ER 60 MG TAB.ER.24 PO (08:02)
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
--- NOTE | 2022-01-28 10:52 | PC.NURSE ---
1030-discharge instructions reviewed with pt. questions answered.
== END 2022-01-28 10:55 | disposition home or self-care (01) | DRG 305 ==
LOC: HO.ED 01-27 00:57 → HO.ICU 01-27 01:09
PROVIDERS: Admitting Provider Physician Assistant Medical; Emergency Provider Student in an Organized Health Care Education/Training Program; Visit Provider Nurse Practitioner Acute Care
DX: I16.0 Hypertensive urgency (principal); I50.32 Chronic diastolic (congestive) heart failure; I13.0 Hypertensive heart and chronic kidney disease with heart failure and stage 1 through stage 4 chronic kidney disease, or unspecified chronic kidney disease; N18.30 Chronic kidney disease, stage 3 unspecified; B34.9 Viral infection, unspecified; E11.22 Type 2 diabetes mellitus with diabetic chronic kidney disease; F31.9 Bipolar disorder, unspecified; M06.9 Rheumatoid arthritis, unspecified; M35.00 Sjogren syndrome, unspecified; F17.210 Nicotine dependence, cigarettes, uncomplicated; Z71.6 Tobacco abuse counseling; Z20.822 Contact with and (suspected) exposure to COVID-19; Z91.14 Patient's other noncompliance with medication regimen; Z88.0 Allergy status to penicillin; Z88.1 Allergy status to other antibiotic agents; Z88.8 Allergy status to other drugs, medicaments and biological substances; Z79.82 Long term (current) use of aspirin; Z79.84 Long term (current) use of oral hypoglycemic drugs; Z79.899 Other long term (current) drug therapy
CPT/HCPCS: 36415; 71045; 80053; 82947; 83880; 84484; 85025; 85610; 87635; 93005; 99285

== ENCOUNTER 2022-02-28 17:18 | Emergency (ER) | payer MEDICARE, MEDICAID, SELFPAY ==
[2021-09-27 11:09] VITALS: BP 190/120; BMI 29.0
--- NOTE | ~2022-02-28 | XR_ITS ---
EXAMINATION: XR CHEST CLINICAL INFORMATION: Chest pain COMPARISON: 01/26/2022 TECHNIQUE: Frontal view of the chest was obtained. FINDINGS: There is mild cardiac enlargement. No evidence of CHF. Some minimal left basilar atelectasis is present. Old healed left rib fracture. No acute intrathoracic disease. XR/XR chest 1V IMPRESSION: Mild cardiomegaly. No acute intrathoracic disease.
[2022-02-28 18:06] VITALS: BP 170/107; PULSE 77; RESP 24; TEMP 36.7; O2SAT 99; BMI 28.5
--- NOTE | 2022-02-28 18:06 | ED.ARRPALP ---
HPI - Arrhythmia/Palpitations General Chief Complaint: Chest Pain Stated Complaint: heart rate fast, dizziness Time Seen by Provider: 02/28/22 20:40 Related Data Home Medications Medication Instructions Recorded Confirmed amitriptyline 10 mg tablet 1 tab PO BEDTIME 01/27/22 01/27/22 aspirin 81 mg tablet,delayed 81 mg PO DAILY 01/27/22 01/27/22 release carvedilol 25 mg tablet 2 tab PO BID 01/27/22 01/27/22 clonazepam 1 mg tablet 1 tab PO DAILY PRN anxiety 01/27/22 01/27/22 dapagliflozin 10 mg-metformin ER 1 tab PO DAILY 01/27/22 01/27/22 1,000 mg tablet,extended release 24hr (Xigduo XR) dulaglutide 0.75 mg/0.5 mL 0.75 mg subcut QWEEK 01/27/22 01/27/22 subcutaneous pen injector (Trulicity) lisinopril 10 mg tablet 2 tab PO BID 01/27/22 01/27/22 nifedipine 60 mg tablet,extended 1 tab PO DAILY 01/27/22 01/27/22 release 24 hr spironolactone 100 mg tablet 1 tab PO DAILY 01/27/22 01/27/22 Previous Rx's Medication Instructions Recorded nicotine 14 mg/24 hr daily 1 patch transdermal DAILY #28 ea 02/06/22 transdermal patch albuterol sulfate 90 mcg/actuation 1 inh inhalation QID PRN Wheezing 02/11/22 aerosol inhaler 30 days #8.5 grams Allergies Allergy/AdvReac Type Severity Reaction Status Date / Time Cephalosporins Allergy Intermediate RASH ALL Verified 02/28/22 18:06 [CEPHALOSPORINS] OVER amoxicillin Allergy Unknown rash Verified 02/28/22 18:06 cefaclor [From Ceclor] Allergy Unknown RASH Verified 02/28/22 18:06 cephalexin Allergy Unknown rash Verified 02/28/22 18:06 cephradine [From VELOSEF] Allergy Unknown RASH Verified 02/28/22 18:06 Penicillins [PENICILLINS] Allergy Unknown RASH Verified 02/28/22 18:06 gabapentin [GABAPENTIN] AdvReac Unknown RESTLESS Verified 02/28/22 18:06 LEGS, Body becomes very uncomfortable PMFSH Past Medical History Medical History Anxiety Bipolar 1 disorder Cardiomyopathy CKD (chronic kidney disease) CKD (chronic kidney disease) stage 2, GFR 60-89 ml/min Diabetes mellitus Eclampsia Fatty liver H/O mixed connective tissue disease Heart block AV second degree High cholesterol History of DVT (deep vein thrombosis) HTN (hypertension) Hypersomnia Lupus Malignant hypertension Migraines Nicotine dependence, cigarettes, uncomplicated (~1999) PTSD (post-traumatic stress disorder) Rheumatoid arthritis Sjogren's disease Surgical History History of bronchoscopy (~11/2020) History of cholecystectomy (~05/2014) History of hysterectomy Family History Family History Father Substance use disorder Mental health disorder Brother Substance use disorder Mental health disorder Brother Substance use disorder Mental health disorder Other Diabetes HTN (hypertension) Social History Social History Household Members: Children Household Members Other:: boyfriend Housing: House Are you a primary rental boats caretaker to a significant other at home: No Do you presently have visiting nurse or other home services: No Alcohol intake: former Patient Tobacco Use Status: Never used Tobacco Tobacco use type: Cigarette Cigarette Packs Per Day: 0.5 Cigarettes Per Day: 10.0 Years Smoked: 20 e-Cigarette/Vaping Use: Never Used Second Hand Smoke Exposure: No Substance Use Type: IV Drugs Advance Directives: Yes Advance Directives on File: Yes Advance Directives Date on File: 06/03/21 service: No Current occupational status: disabled Cognitive needs: No Hearing needs: No Vision needs: No Physical Exam Vital Signs: Vital Signs: Last Vital Signs Temp 97.0 F 03/01/22 00:00 Pulse 74 03/01/22 00:00 Resp 16 03/01/22 00:00 BP 156/100 H 03/01/22 00:00 Pulse Ox 98 03/01/22 00:00 O2 Del Method 03/01/22 00:00 BMI result Body Mass Index 28.5 Course Course Course Narrative: RME: Patient is 41 year old female with a past medical history of CHF, HTN, CKD stage 3, DM, polycystic ovary syndrome presenting to the emergency department for worsening shortness of breath and palpitations from baseline over the past 3 days. took PM antihypertensives about 90 minutes [employer] then got dizzy approximately 30 minutes ago, which is atypical for her. Has associated midsternal chest pain since to emergency department. PE: LSCTA, no tachycardic hypoxic mild tachypnea. No respiratory distress. Hypertensive 170/107, no focal neurological deficits, steady gait Plan: CBC, CMP, EKG, troponin, BNP, chest x-ray MDM - Arrhythmia/Palpitations Lab Data Result diagrams: 02/28/22 18:21 02/28/22 18:21 Labs: Lab Results 02/28/22 02/28/22 02/28/22 Range/Units 18:21 18:21 18:21 WBC 11.9 H (4.8-10.8) X10*3/uL RBC 3.64 L (4.20-5.50) X10*6/uL Hgb 11.8 L (12.0-16.0) g/dl Hct 33.0 L (37.0-47.0) % MCV 90.7 (80.0-98.0) fL MCH 32.4 (27.0-33.0) pg MCHC 35.8 H (31.0-35.0) g/dl RDW 14.8 (11.0-16.0) % Plt Count 403 H (160-400) X10*3/uL MPV 9.6 (9.4-12.3) fL Immature Gran % (Auto) 0.3 (0.0-0.4) % Neut % (Auto) 75.7 H (45-73) % Lymph % (Auto) 15.0 L (20-40) % [place] % (Auto) 5.3 (2-11) % Eos % (Auto) 3.0 (0-4) % Baso % (Auto) 0.7 (0-2) % Lymph # (Auto) 1.8 (1.2-4.9) X10*3/uL [place] # (Auto) 0.6 (0.1-1.2) X10*3/uL Eos # (Auto) 0.4 (0.0-0.4) X10*3/uL Baso # (Auto) 0.1 (0.0-0.2) X10*3/uL Abs Immat Gran (auto) 0.03 (0.00-0.03) X10*3/uL Absolute Neuts (auto) 9.0 H (2.0-8.3) x10*3/uL Absolute Nucleated RBC 0.000 (0.0-0.012) X10*3/uL Nucleated RBC % (auto) 0.0 (0.0-0.2) /100WBC Sodium 135 (135-145) mmol/L Potassium 4.2 (3.3-5.1) mmol/L Chloride 101 (96-108) mmol/L Carbon Dioxide 25 (22-29) mmol/L Anion Gap 13 (12-20) BUN 29 H (9-16) mg/dL Creatinine 1.72 H (0.5-1.4) mg/dL Estim Creat Clear Calc 48.5 Estimated GFR 33 Random Glucose 287 H (60-115) mg/dL Calcium 8.9 (8.4-10.2) mg/dL Magnesium 2.0 (1.6-2.6) mg/dL Total Bilirubin 0.9 (0.0-1.0) mg/dL AST 14 (5-31) U/L ALT 28 (0-31) U/L Alkaline Phosphatase 117 (39-117) U/L Troponin I High Sens 25.2 H (<3.5-17.0) ng/L B-Natriuretic Peptide (<100) pg/mL Total Protein 5.9 L (6.5-8.0) g/dL Albumin 3.7 (3.5-5.0) g/dL Urine Color Urine Appearance Urine pH (5.0-9.0) Ur Specific [place] (1.005-1.025) Urine Protein (Neg-Trace) mg/dL Urine Glucose (UA) (Negative) mg/dL Urine Ketones (Negative) mg/dL Urine Blood (Negative) Urine Nitrite (Negative) Ur Leukocyte Esterase (Negative) Urine RBC (0-2) /HPF Urine WBC (0-5) /HPF Ur Squamous Epith Cells (0-2) /HPF Urine Bacteria (None Seen) Hyaline Casts (0-2) /LPF COVID-19 (TOM) (Negative) COVID-19 Clin Com 02/28/22 02/28/22 02/28/22 Range/Units 18:21 18:21 19:49 WBC (4.8-10.8) X10*3/uL RBC (4.20-5.50) X10*6/uL Hgb (12.0-16.0) g/dl Hct (37.0-47.0) % MCV (80.0-98.0) fL MCH (27.0-33.0) pg MCHC (31.0-35.0) g/dl RDW (11.0-16.0) % Plt Count (160-400) X10*3/uL MPV (9.4-12.3) fL Immature Gran % (Auto) (0.0-0.4) % Neut % (Auto) (45-73) % Lymph % (Auto) (20-40) % [place] % (Auto) (2-11) % Eos % (Auto) (0-4) % Baso % (Auto) (0-2) % Lymph # (Auto) (1.2-4.9) X10*3/uL [place] # (Auto) (0.1-1.2) X10*3/uL Eos # (Auto) (0.0-0.4) X10*3/uL Baso # (Auto) (0.0-0.2) X10*3/uL Abs Immat Gran (auto) (0.00-0.03) X10*3/uL Absolute Neuts (auto) (2.0-8.3) x10*3/uL Absolute Nucleated RBC (0.0-0.012) X10*3/uL Nucleated RBC % (auto) (0.0-0.2) /100WBC Sodium (135-145) mmol/L Potassium (3.3-5.1) mmol/L Chloride (96-108) mmol/L Carbon Dioxide (22-29) mmol/L Anion Gap (12-20) BUN (9-16) mg/dL Creatinine (0.5-1.4) mg/dL Estim Creat Clear Calc Estimated GFR Random Glucose (60-115) mg/dL Calcium (8.4-10.2) mg/dL Magnesium (1.6-2.6) mg/dL Total Bilirubin (0.0-1.0) mg/dL AST (5-31) U/L ALT (0-31) U/L Alkaline Phosphatase (39-117) U/L Troponin I High Sens (<3.5-17.0) ng/L B-Natriuretic Peptide 1321 H (<100) pg/mL Total Protein (6.5-8.0) g/dL Albumin (3.5-5.0) g/dL Urine Color Yellow Urine Appearance Cloudy Urine pH 5.5 (5.0-9.0) Ur Specific [place] 1.020 (1.005-1.025) Urine Protein 300 (3+) H (Neg-Trace) mg/dL Urine Glucose (UA) 500 H (Negative) mg/dL Urine Ketones Negative (Negative) mg/dL Urine Blood Negative (Negative) Urine Nitrite Positive H (Negative) Ur Leukocyte Esterase Small (1+) H (Negative) Urine RBC 0-2 (0-2) /HPF Urine WBC 11-20 H (0-5) /HPF Ur Squamous Epith Cells >20 (0-2) /HPF Urine Bacteria 4+ (None Seen) Hyaline Casts 0-2 (0-2) /LPF COVID-19 (TOM) Negative (Negative) COVID-19 Clin Com See Note 02/28/22 Range/Units 21:32 WBC (4.8-10.8) X10*3/uL RBC (4.20-5.50) X10*6/uL Hgb (12.0-16.0) g/dl Hct (37.0-47.0) % MCV (80.0-98.0) fL MCH (27.0-33.0) pg MCHC (31.0-35.0) g/dl RDW (11.0-16.0) % Plt Count (160-400) X10*3/uL MPV (9.4-12.3) fL Immature Gran % (Auto) (0.0-0.4) % Neut % (Auto) (45-73) % Lymph % (Auto) (20-40) % [place] % (Auto) (2-11) % Eos % (Auto) (0-4) % Baso % (Auto) (0-2) % Lymph # (Auto) (1.2-4.9) X10*3/uL [place] # (Auto) (0.1-1.2) X10*3/uL Eos # (Auto) (0.0-0.4) X10*3/uL Baso # (Auto) (0.0-0.2) X10*3/uL Abs Immat Gran (auto) (0.00-0.03) X10*3/uL Absolute Neuts (auto) (2.0-8.3) x10*3/uL Absolute Nucleated RBC (0.0-0.012) X10*3/uL Nucleated RBC % (auto) (0.0-0.2) /100WBC Sodium (135-145) mmol/L Potassium (3.3-5.1) mmol/L Chloride (96-108) mmol/L Carbon Dioxide (22-29) mmol/L Anion Gap (12-20) BUN (9-16) mg/dL Creatinine (0.5-1.4) mg/dL Estim Creat Clear Calc Estimated GFR Random Glucose (60-115) mg/dL Calcium (8.4-10.2) mg/dL Magnesium (1.6-2.6) mg/dL Total Bilirubin (0.0-1.0) mg/dL AST (5-31) U/L ALT (0-31) U/L Alkaline Phosphatase (39-117) U/L Troponin I High Sens 22.6 H (<3.5-17.0) ng/L B-Natriuretic Peptide (<100) pg/mL Total Protein (6.5-8.0) g/dL Albumin (3.5-5.0) g/dL Urine Color Urine Appearance Urine pH (5.0-9.0) Ur Specific [place] (1.005-1.025) Urine Protein (Neg-Trace) mg/dL Urine Glucose (UA) (Negative) mg/dL Urine Ketones (Negative) mg/dL Urine Blood (Negative) Urine Nitrite (Negative) Ur Leukocyte Esterase (Negative) Urine RBC (0-2) /HPF Urine WBC (0-5) /HPF Ur Squamous Epith Cells (0-2) /HPF Urine Bacteria (None Seen) Hyaline Casts (0-2) /LPF COVID-19 (TOM) (Negative) COVID-19 Clin Com Discharge Plan Discharge Clinical Impression: Atypical chest pain Chronic renal insufficiency Qualifiers: Chronic kidney disease stage: unspecified stage Qualified Code(s): N18.9 - Chronic kidney disease, unspecified Patient Disposition: Home, Self-Care Instructions: Chest Pain (ED) Prescriptions: No Action nicotine 14 mg/24 hr patch 24 hour 1 patch transdermal DAILY Qty: 28 0RF albuterol sulfate 90 mcg/actuation HFA aerosol inhaler 1 inh inhalation QID PRN (Reason: Wheezing) 30 Days Qty: 8.5 1RF carvedilol 25 mg tablet 2 tab PO BID spironolactone 100 mg tablet 1 tab PO DAILY clonazepam 1 mg tablet 1 tab PO DAILY PRN (Reason: anxiety) Trulicity 0.75 mg/0.5 mL pen injector 0.75 mg subcut QWEEK Xigduo XR 10-1,000 mg tablet, IR - ER, biphasic 24hr 1 tab PO DAILY lisinopril 10 mg tablet 2 tab PO BID amitriptyline 10 mg tablet 1 tab PO BEDTIME aspirin 81 mg Tablet,Delayed Release (Dr/Ec) 81 mg PO DAILY nifedipine 60 mg tablet extended release 24hr 1 tab PO DAILY Referrals: Mauricio Nolasco, [employer] INSPECTOR-BC [Primary Care Provider] - Interventions: ED Discharge Assessment Last Done: 03/01/22 01:05 Discharge Date/Time: 03/01/22 01:06
--- NOTE | 2022-02-28 18:12 | ECG_ITS ---
Test Reason : CX PAIN Blood Pressure : / mmHG Vent. Rate : 071 BPM Atrial Rate : 071 BPM P-R Int : 148 ms QRS Dur : 090 ms QT Int : 426 ms P-R-T Axes : 042 001 150 degrees QTc Int : 462 ms Normal sinus rhythm Possible Left atrial enlargement Left ventricular hypertrophy with repolarization abnormality ( R in aVL , Sokolow-Abarca , Omar product , Romhilt-Peres ) Nonspecific ST abnormality Abnormal ECG When compared with ECG of 27-JAN-2022 16:09, ST more elevated in Anterior leads Referred By: Tiffanie Anderson Electronically Signed By:HUMERA OLMSTEAD MD
[2022-02-28 18:31] LABS: MANUAL DIFF FLAG NO
[2022-02-28 18:36] LABS: Basophils Absolute Auto 0.1 X10*3/uL (0.0-0.2); Basophils Percent Auto 0.7 % (0-2); Eosinophils Absolute Auto 0.4 X10*3/uL (0.0-0.4); Hemoglobin 11.8 g/dl (12.0-16.0); Imm Gran Abs Auto 0.03 X10*3/uL (0.00-0.03); Imm Gran Pct Auto 0.3 % (0.0-0.4); Lymphocytes Absolute Auto 1.8 X10*3/uL (1.2-4.9); Mean Corpuscular HGB Conc 35.8 g/dl (31.0-35.0); Mean Corpuscular Hemoglobin 32.4 pg (27.0-33.0); Mean Corpuscular Volume 90.7 fL (80.0-98.0); Mean Platelet Volume 9.6 fL (9.4-12.3); Monocytes Absolute Auto 0.6 X10*3/uL (0.1-1.2); Monocytes Percent Auto 5.3 % (2-11); Neutrophils Percent Auto 75.7 % (45-73); Platelet Count 403 X10*3/uL (160-400); Red Blood Count 3.64 X10*6/uL (4.20-5.50); Red Cell Distribution Width 14.8 % (11.0-16.0); White Blood Count 11.9 X10*3/uL (4.8-10.8)
[2022-02-28 18:48] LABS: COVID-19 Test Negative (Negative); IDNOW Serial# 16C4AD1C
[2022-02-28 18:50] LABS: Alanine Aminotransferase 28 U/L (0-31); Albumin Level 3.7 g/dL (3.5-5.0); Alkaline Phosphatase 117 U/L (39-117); Anion Gap 13 (12-20); Aspartate Amino Transferase 14 U/L (5-31); Bilirubin Total 0.9 mg/dL (0.0-1.0); Blood Urea Nitrogen 29 mg/dL (9-16); Calcium 8.9 mg/dL (8.4-10.2); Carbon Dioxide 25 mmol/L (22-29); Chloride 101 mmol/L (96-108); Creatinine Clr Calc Pharmacy 48.5; Estimated Glomerular Filt Rate 33; Glucose Random 287 mg/dL (60-115); Potassium 4.2 mmol/L (3.3-5.1); Sodium 135 mmol/L (135-145); Total Protein 5.9 g/dL (6.5-8.0)
[2022-02-28 18:55] LABS: Troponin-I High Sensitivity 25.2 ng/L (<3.5-17.0)
[2022-02-28 19:56] LABS: Appearance Urine Cloudy; Color Urine Yellow; Glucose Urine UA 500 mg/dL (Negative); Leukocyte Esterase Urine Small (1+) (Negative); Nitrite Urine Positive (Negative); PH 5.5 (5.0-9.0); UMIC TRIGGER UACC YES; Urine Blood Negative (Negative); Urine Ketones Negative (Negative); Urine Protein 300 (3+) mg/dL (Neg-Trace)
[2022-02-28 20:05] LABS: Bacteria Urine 4+ (None Seen); Hyaline Casts Urine 0-2 /LPF (0-2); RBC Urine 0-2 /HPF (0-2); Squamous Epithelial Cell Urine >20 /HPF (0-2); UACC Culture Trigger YES
[2022-02-28 21:05] VITALS: BP 181/116; PULSE 70; RESP 20; TEMP 36.7; O2SAT 99
--- NOTE | 2022-02-28 21:30 | ED_ITS ---
HPI - Chest Pain General Chief Complaint: Chest Pain Stated Complaint: heart rate fast, dizziness Time Seen by Provider: 02/28/22 20:40 Source: patient and family Mode of arrival: ambulatory Limitations: no limitations History of Present Illness HPI narrative: 41-year-old female with a past medical history of congestive heart failure, cardiomyopathy, secondary heart block, elevated troponin, presents to the [facility] ency department tonight with vague symptoms including chest pain. States she has had worsening shortness of breath with some palpitations over the last 48 hours, and had some dizziness earlier tonight after taking her blood pressure medications. Upon arrival, the patient has no complaints of pain. MD complaint: chest pain Pertinent past history: other (See HPI) Onset (ago): hour(s) Timing of current episode: episodic Prior episodes: Yes Pain location: substernal Pain radiation: none Severity: mild Quality: tightness Relieving factors: nothing Exacerbating factors: nothing Risk Factors Coronary artery disease risk factors: hypertension Related Data Home Medications Medication Instructions Recorded Confirmed amitriptyline 10 mg tablet 1 tab PO BEDTIME 01/27/22 01/27/22 aspirin 81 mg tablet,delayed 81 mg PO DAILY 01/27/22 01/27/22 release carvedilol 25 mg tablet 2 tab PO BID 01/27/22 01/27/22 clonazepam 1 mg tablet 1 tab PO DAILY PRN anxiety 01/27/22 01/27/22 dapagliflozin 10 mg-metformin ER 1 tab PO DAILY 01/27/22 01/27/22 1,000 mg tablet,extended release 24hr (Xigduo XR) dulaglutide 0.75 mg/0.5 mL 0.75 mg subcut QWEEK 01/27/22 01/27/22 subcutaneous pen injector (Trulicity) lisinopril 10 mg tablet 2 tab PO BID 01/27/22 01/27/22 nifedipine 60 mg tablet,extended 1 tab PO DAILY 01/27/22 01/27/22 release 24 hr spironolactone 100 mg tablet 1 tab PO DAILY 01/27/22 01/27/22 Previous Rx's Medication Instructions Recorded nicotine 14 mg/24 hr daily 1 patch transdermal DAILY #28 ea 02/06/22 transdermal patch albuterol sulfate 90 mcg/actuation 1 inh inhalation QID PRN Wheezing 02/11/22 aerosol inhaler 30 days #8.5 grams Allergies Allergy/AdvReac Type Severity Reaction Status Date / Time Cephalosporins Allergy Intermediate RASH ALL Verified 02/28/22 18:06 [CEPHALOSPORINS] OVER amoxicillin Allergy Unknown rash Verified 02/28/22 18:06 cefaclor [From Ceclor] Allergy Unknown RASH Verified 02/28/22 18:06 cephalexin Allergy Unknown rash Verified 02/28/22 18:06 cephradine [From VELOSEF] Allergy Unknown RASH Verified 02/28/22 18:06 Penicillins [PENICILLINS] Allergy Unknown RASH Verified 02/28/22 18:06 gabapentin [GABAPENTIN] AdvReac Unknown RESTLESS Verified 02/28/22 18:06 LEGS, Body becomes very uncomfortable Review of Systems Constitutional: Constitutional: Denies chills, Denies fever(s) and Denies weakness Eyes: Eyes: Denies diplopia and Denies eye discharge ENT: Denies nasal congestion and Denies sore throat Cardiovascular: Cardiovascular: Reports chest pain, Denies syncope, Denies Loss of Consciousness, Denies palpitations and Denies dyspnea Respiratory: Respiratory: Reports no additional respiratory complaints and Denies dyspnea Gastrointestinal: Gastrointestinal: Reports no additional gastrointestinal complaints Genitourinary: Genitourinary: Reports no additional female genitourinary complaints Musculoskeletal: Musculoskeletal: Reports no additional musculoskeletal com plaints and Denies back pain Integumentary/Breasts: Skin/Breast: Reports system reviewed and no additional complaints, except as docu and Denies jaundice Neurologic: Denies Abnormal speech present, Denies syncope, Denies Sensory deficit (Neuro) and Denies weakness Psychiatric: Psychiatric: Reports no additional psychiatric complaints Endocrine: Endocrine: Denies palpitations PMFSH Past Medical History Attestation statement: The following information was validated with the patient. Source: nursing notes reviewed Medical History Anxiety Bipolar 1 disorder Cardiomyopathy CKD (chronic kidney disease) CKD (chronic kidney disease) stage 2, GFR 60-89 ml/min Diabetes mellitus Eclampsia Fatty liver H/O mixed connective tissue disease Heart block AV second degree High cholesterol History of DVT (deep vein thrombosis) HTN (hypertension) Hypersomnia Lupus Malignant hypertension Migraines Nicotine dependence, cigarettes, uncomplicated (~1999) PTSD (post-traumatic stress disorder) Rheumatoid arthritis Sjogren's disease Surgical History History of bronchoscopy (~11/2020) History of cholecystectomy (~05/2014) History of hysterectomy Family History Family History Father Substance use disorder Mental health disorder Brother Substance use disorder Mental health disorder Brother Substance use disorder Mental health disorder Other Diabetes HTN (hypertension) Social History Social History Household Members: Children Household Members Other:: boyfriend Housing: House Are you a primary reproductive healthcare assistant to a significant other at home: No Do you presently have visiting nurse or other home services: No Alcohol intake: former Patient Tobacco Use Status: Never used Tobacco Tobacco use type: Cigarette Cigarette Packs Per Day: 0.5 Cigarettes Per Day: 10.0 Years Smoked: 20 e-Cigarette/Vaping Use: Never Used Second Hand Smoke Exposure: No Substance Use Type: IV Drugs Advance Directives: Yes Advance Directives on File: Yes Advance Directives Date on File: 06/03/21 service: No Current occupational status: disabled Cognitive needs: No Hearing needs: No Vision needs: No Physical Exam Vital Signs: Vital Signs: Last Vital Signs Temp 97.0 F 03/01/22 00:00 Pulse 74 03/01/22 00:00 Resp 16 03/01/22 00:00 BP 156/100 H 03/01/22 00:00 Pulse Ox 98 03/01/22 00:00 O2 Del Method 03/01/22 00:00 BMI result Body Mass Index 28.5 Hypertension is noted, vital signs otherwise unremarkable Const: General: cooperative, no acute distress, alert and awake; No in distress or diaphoretic Nutritional Appearance: average body habitus Orientation/consciousness: patient oriented x3 Limitations: no limitations HEENT: Head: Yes normal to inspection, Yes normocephalic and Yes atraumatic Ears: hearing grossly normal bilaterally General nose exam: Normal external nose present Face and sinus: Yes normal facial exam Mouth: Normal oral and palatal mucosa present Eyes: General: appearance normal, both eyes and all related structures Conjunctivae: conjunctivae normal Sclerae: sclerae normal Pupils: Equal, round and reactive pupils present EOM: EOMs intact bilaterally Neck: Neck: Yes normal visual inspection and Yes full ROM Resp: Effort & Inspection: normal respiratory effort, normal respiratory pattern and no cough Auscultation: clear to auscultation bilaterally Cardio: Rate: regular rate Rhythm: regular rhythm GI: Inspection: Yes normal to inspection, No Abdominal wall edema and No distended Palpation (GI): not soft and nontender Back/Spine/Pelvis: Cervical Spine: normal cervical lordosis and cervical ROM normal Skin: General skin exam: no rashes or lesions noted, no jaundice and no pallor Neuro: General: patient oriented x3 and CN's II-XI intact bilaterally Crani al nerves: Yes Equal, round and reactive pupils present Cognition (Neuro): normal cognition Speech: No Abnormal speech present Gait exam (Neuro): Normal gait present Motor exam (neuro): 5/5 motor strength present throughout Sensory Exam: No Sensory deficit (Neuro) Deep tendon reflexes (DTR's): Rt Biceps (C5, C6): 2+, Left biceps reflex intensity grade: 2+, Right patellar reflex intensity grade: 2+ and Left patellar reflex intensity grade: 2+ MDM - Chest Pain MDM Narrative Medical decision making narrative: 41-year-old female with extensive past medical history presented with some vague symptoms earlier tonight. All laboratory studies were reviewed and are essentially unremarkable. Troponin x2 was negative. Patient is comfortable at this time and would like to go home. She states that she has been admitted before and signed out AMA, and she has children at home that she needs to get home to. The patient will be allowed to go home, as at this point, there is no clear reason for admission. She is strongly advised to follow-up with her primary care doctor in the next 36-48 hours. Medical Records Data Attestation: I reviewed the patient's medical records. Lab Data Attestation: I reviewed the patient's lab results. Lab results narrative: Notable is include a creatinine of 1.72, which is approximately baseline for this patient as well as a troponin of 25. This will be repeated. Repeat troponin slightly lower. Result diagrams: 02/28/22 18:21 02/28/22 18:21 Labs: Lab Results 02/28/22 02/28/22 02/28/22 Range/Units 18:21 18:21 18:21 WBC 11.9 H (4.8-10.8) X10*3/uL RBC 3.64 L (4.20-5.50) X10*6/uL Hgb 11.8 L (12.0-16.0) g/dl Hct 33.0 L (37.0-47.0) % MCV 90.7 (80.0-98.0) fL MCH 32.4 (27.0-33.0) pg MCHC 35.8 H (31.0-35.0) g/dl RDW 14.8 (11.0-16.0) % Plt Count 403 H (160-400) X10*3/uL MPV 9.6 (9.4-12.3) fL Immature Gran % (Auto) 0.3 (0.0-0.4) % Neut % (Auto) 75.7 H (45-73) % Lymph % (Auto) 15.0 L (20-40) % [place] % (Auto) 5.3 (2-11) % Eos % (Auto) 3.0 (0-4) % Baso % (Auto) 0.7 (0-2) % Lymph # (Auto) 1.8 (1.2-4.9) X10*3/uL [place] # (Auto) 0.6 (0.1-1.2) X10*3/uL Eos # (Auto) 0.4 (0.0-0.4) X10*3/uL Baso # (Auto) 0.1 (0.0-0.2) X10*3/uL Abs Immat Gran (auto) 0.03 (0.00-0.03) X10*3/uL Absolute Neuts (auto) 9.0 H (2.0-8.3) x10*3/uL Absolute Nucleated RBC 0.000 (0.0-0.012) X10*3/uL Nucleated RBC % (auto) 0.0 (0.0-0.2) /100WBC Sodium 135 (135-145) mmol/L Potassium 4.2 (3.3-5.1) mmol/L Chloride 101 (96-108) mmol/L Carbon Dioxide 25 (22-29) mmol/L Anion Gap 13 (12-20) BUN 29 H (9-16) mg/dL Creatinine 1.72 H (0.5-1.4) mg/dL Estim Creat Clear Calc 48.5 Estimated GFR 33 Random Glucose 287 H (60-115) mg/dL Calcium 8.9 (8.4-10.2) mg/dL Magnesium 2.0 (1.6-2.6) mg/dL Total Bilirubin 0.9 (0.0-1.0) mg/dL AST 14 (5-31) U/L ALT 28 (0-31) U/L Alkaline Phosphatase 117 (39-117) U/L Troponin I High Sens 25.2 H (<3.5-17.0) ng/L B-Natriuretic Peptide (<100) pg/mL Total Protein 5.9 L (6.5-8.0) g/dL Albumin 3.7 (3.5-5.0) g/dL Urine Color Urine Appearance Urine pH (5.0-9.0) Ur Specific [place] (1.005-1.025) Urine Protein (Neg-Trace) mg/dL Urine Glucose (UA) (Negative) mg/dL Urine Ketones (Negative) mg/dL Urine Blood (Negative) Urine Nitrite (Negative) Ur Leukocyte Esterase (Negative) Urine RBC (0-2) /HPF Urine WBC (0-5) /HPF Ur Squamous Epith Cells (0-2) /HPF Urine Bacteria (None Seen) Hyaline Casts (0-2) /LPF COVID-19 (TOM) (Negative) COVID-19 Clin Com 02/28/22 02/28/22 02/28/22 Range/Units 18:21 18:21 19:49 WBC (4.8-10.8) X10*3/uL RBC (4.20-5.50) X10*6/uL Hgb (12.0-16.0) g/dl Hct (37.0-47.0) % MCV (80.0-98.0) fL MCH (27.0-33.0) pg MCHC (31.0-35.0) g/dl RDW (11.0-16.0) % Plt Count (160-400) X10*3/uL MPV (9.4-12.3) fL Immature Gran % (Auto) (0.0-0.4) % Neut % (Auto) (45-73) % Lymph % (Auto) (20-40) % [place] % (Auto) (2-11) % Eos % (Auto) (0-4) % Baso % (Auto) (0-2) % Lymph # (Auto) (1.2-4.9) X10*3/uL [place] # (Auto) (0.1-1.2) X10*3/uL Eos # (Auto) (0.0-0.4) X10*3/uL Baso # (Auto) (0.0-0.2) X10*3/uL Abs Immat Gran (auto) (0.00-0.03) X10*3/uL Absolute Neuts (auto) (2.0-8.3) x10*3/uL Absolute Nucleated RBC (0.0-0.012) X10*3/uL Nucleated RBC % (auto) (0.0-0.2) /100WBC Sodium (135-145) mmol/L Potassium (3.3-5.1) mmol/L Chloride (96-108) mmol/L Carbon Dioxide (22-29) mmol/L Anion Gap (12-20) BUN (9-16) mg/dL Creatinine (0.5-1.4) mg/dL Estim Creat Clear Calc Estimated GFR Random Glucose (60-115) mg/dL Calcium (8.4-10.2) mg/dL Magnesium (1.6-2.6) mg/dL Total Bilirubin (0.0-1.0) mg/dL AST (5-31) U/L ALT (0-31) U/L Alkaline Phosphatase (39-117) U/L Troponin I High Sens (<3.5-17.0) ng/L B-Natriuretic Peptide 1321 H (<100) pg/mL Total Protein (6.5-8.0) g/dL Albumin (3.5-5.0) g/dL Urine Color Yellow Urine Appearance Cloudy Urine pH 5.5 (5.0-9.0) Ur Specific [place] 1.020 (1.005-1.025) Urine Protein 300 (3+) H (Neg-Trace) mg/dL Urine Glucose (UA) 500 H (Negative) mg/dL Urine Ketones Negative (Negative) mg/dL Urine Blood Negative (Negative) Urine Nitrite Positive H (Negative) Ur Leukocyte Esterase Small (1+) H (Negative) Urine RBC 0-2 (0-2) /HPF Urine WBC 11-20 H (0-5) /HPF Ur Squamous Epith Cells >20 (0-2) /HPF Urine Bacteria 4+ (None Seen) Hyaline Casts 0-2 (0-2) /LPF COVID-19 (TOM) Negative (Negative) COVID-19 Clin Com See Note 02/28/22 Range/Units 21:32 WBC (4.8-10.8) X10*3/uL RBC (4.20-5.50) X10*6/uL Hgb (12.0-16.0) g/dl Hct (37.0-47.0) % MCV (80.0-98.0) fL MCH (27.0-33.0) pg MCHC (31.0-35.0) g/dl RDW (11.0-16.0) % Plt Count (160-400) X10*3/uL MPV (9.4-12.3) fL Immature Gran % (Auto) (0.0-0.4) % Neut % (Auto) (45-73) % Lymph % (Auto) (20-40) % [place] % (Auto) (2-11) % Eos % (Auto) (0-4) % Baso % (Auto) (0-2) % Lymph # (Auto) (1.2-4.9) X10*3/uL [place] # (Auto) (0.1-1.2) X10*3/uL Eos # (Auto) (0.0-0.4) X10*3/uL Baso # (Auto) (0.0-0.2) X10*3/uL Abs Immat Gran (auto) (0.00-0.03) X10*3/uL Absolute Neuts (auto) (2.0-8.3) x10*3/uL Absolute Nucleated RBC (0.0-0.012) X10*3/uL Nucleated RBC % (auto) (0.0-0.2) /100WBC Sodium (135-145) mmol/L Potassium (3.3-5.1) mmol/L Chloride (96-108) mmol/L Carbon Dioxide (22-29) mmol/L Anion Gap (12-20) BUN (9-16) mg/dL Creatinine (0.5-1.4) mg/dL Estim Creat Clear Calc Estimated GFR Random Glucose (60-115) mg/dL Calcium (8.4-10.2) mg/dL Magnesium (1.6-2.6) mg/dL Total Bilirubin (0.0-1.0) mg/dL AST (5-31) U/L ALT (0-31) U/L Alkaline Phosphatase (39-117) U/L Troponin I High Sens 22.6 H (<3.5-17.0) ng/L B-Natriuretic Peptide (<100) pg/mL Total Protein (6.5-8.0) g/dL Albumin (3.5-5.0) g/dL Urine Color Urine Appearance Urine pH (5.0-9.0) Ur Specific [place] (1.005-1.025) Urine Protein (Neg-Trace) mg/dL Urine Glucose (UA) (Negative) mg/dL Urine Ketones (Negative) mg/dL Urine Blood (Negative) Urine Nitrite (Negative) Ur Leukocyte Esterase (Negative) Urine RBC (0-2) /HPF Urine WBC (0-5) /HPF Ur Squamous Epith Cells (0-2) /HPF Urine Bacteria (None Seen) Hyaline Casts (0-2) /LPF COVID-19 (TOM) (Negative) COVID-19 Clin Com Imaging Data Chest x-ray: Radiologist's impression: FINDINGS: There is mild cardiac enlargement. No evidence of CHF. Some minimal left basilar atelectasis is present. Old healed left rib fracture. No acute intrathoracic disease ECG Data ECG #1: ECG interpretation date: 02/28/22 ECG interpretation time: 18:40 Prior ECG tracings: available for review Interpretation: Normal sinus rhythm at 71 with normal intervals and a normal axis. QTC is 467 milliseconds. There is inverted T-waves in leads 1, aVL, V5 and V6 which are unchanged from a prior EKG dated yesterday. Discharge Plan Discharge Clinical Impression: Atypical chest pain Chronic renal insufficiency Qualifiers: Chronic kidney disease stage: unspecified stage Qualified Code(s): N18.9 - Chronic kidney disease, unspecified Patient Disposition: Home, Self-Care Instructions: Chest Pain (ED) Prescriptions: No Action nicotine 14 mg/24 hr patch 24 hour 1 patch transdermal DAILY Qty: 28 0RF albuterol sulfate 90 mcg/actuation HFA aerosol inhaler 1 inh inhalation QID PRN (Reason: Wheezing) 30 Days Qty: 8.5 1RF carvedilol 25 mg tablet 2 tab PO BID spironolactone 100 mg tablet 1 tab PO DAILY clonazepam 1 mg tablet 1 tab PO DAILY PRN (Reason: anxiety) Trulicity 0.75 mg/0.5 mL pen injector 0.75 mg subcut QWEEK Xigduo XR 10-1,000 mg tablet, IR - ER, biphasic 24hr 1 tab PO DAILY lisinopril 10 mg tablet 2 tab PO BID amitriptyline 10 mg tablet 1 tab PO BEDTIME aspirin 81 mg Tablet,Delayed Release (Dr/Ec) 81 mg PO DAILY nifedipine 60 mg tablet extended release 24hr 1 tab PO DAILY Referrals: Mauricio Nolasco, [employer]-[facility] [Primary Care Provider] -
[2022-02-28 21:33] VITALS: BP 159/95; PULSE 69; RESP 20; TEMP 36.7; O2SAT 97
[2022-02-28 21:44] LABS: B Type Natriuretic Peptide 1321 pg/mL (<100)
[2022-02-28 22:03] LABS: Troponin-I High Sensitivity 22.6 ng/L (<3.5-17.0)
[2022-03-01] VITALS: BP 156/100; PULSE 74; RESP 16; TEMP 36.1; O2SAT 98
== END 2022-03-01 01:06 | disposition home or self-care (01) ==
PROVIDERS: Nurse Practitioner Family; Emergency Provider Emergency Medicine; PCP Nurse Practitioner Family
DX: R07.89 Other chest pain (principal); R06.02 Shortness of breath; E11.22 Type 2 diabetes mellitus with diabetic chronic kidney disease; I13.0 Hypertensive heart and chronic kidney disease with heart failure and stage 1 through stage 4 chronic kidney disease, or unspecified chronic kidney disease; N18.2 Chronic kidney disease, stage 2 (mild); I50.9 Heart failure, unspecified; Z20.822 Contact with and (suspected) exposure to COVID-19; E78.5 Hyperlipidemia, unspecified; Z86.718 Personal history of other venous thrombosis and embolism; Z79.899 Other long term (current) drug therapy; Z79.82 Long term (current) use of aspirin; Z79.84 Long term (current) use of oral hypoglycemic drugs
CPT/HCPCS: 36415; 71045; 80053; 81001; 81003; 83735; 83880; 84484; 85025; 87086; 87635; 93005; 99283; 99284

== ENCOUNTER 2022-04-22 12:55 | Inpatient (IN) | payer MEDICARE, MEDICAID, SELFPAY ==
[2021-09-27 11:09] VITALS: BP 190/120; BMI 29.0
--- NOTE | ~2022-04-22 | XR_ITS ---
EXAMINATION: XR chest 1V CLINICAL INFORMATION: Chest pressure COMPARISON: Prior chest x-ray 02/28/2022 TECHNIQUE: XR chest 1V Tubes and lines: None Lungs and pleura: Mild interstitial opacification probably mild infiltrate at left lung base, no dense lobar consolidation lobar pneumonia. Costophrenic angles are sharp, no significant pleural effusion. Heart and mediastinum: The mediastinum is within normal limits.. Bones/soft tissue: Skeletal structures included are normal for patient's age. XR/XR chest 1V IMPRESSION: * Mild interstitial opacification probably mild infiltrate at left lung base. * No dense lobar consolidation or pleural effusion.
--- NOTE | 2022-04-22 13:13 | ECG_ITS ---
Test Reason : CHEST PAIN Blood Pressure : / mmHG Vent. Rate : 072 BPM Atrial Rate : 072 BPM P-R Int : 152 ms QRS Dur : 092 ms QT Int : 440 ms P-R-T Axes : 047 -03 158 degrees QTc Int : 481 ms Normal sinus rhythm Possible Left atrial enlargement Left ventricular hypertrophy with repolarization abnormality ( R in aVL , Sokolow-Abarca , Omar product , Romhilt-Peres ) Nonspecific ST abnormality Prolonged QT Abnormal ECG When compared with ECG of 28-FEB-2022 18:33, No significant change was found Referred By: Inessa Maxwell Electronically Signed By:TIFFANIE SWANN MD
[2022-04-22 13:16] VITALS: BP 181/110; PULSE 100; O2SAT 96; BMI 29.7
[2022-04-22 14:28] LABS: MANUAL DIFF FLAG NO
[2022-04-22 14:30] LABS: Basophils Absolute Auto 0.1 X10*3/uL (0.0-0.2); Basophils Percent Auto 0.5 % (0-2); Eosinophils Absolute Auto 0.1 X10*3/uL (0.0-0.4); Eosinophils Percent Auto 0.6 % (0-4); Hematocrit 31.8 % (37.0-47.0); Hemoglobin 11.4 g/dl (12.0-16.0); Imm Gran Abs Auto 0.06 X10*3/uL (0.00-0.03); Imm Gran Pct Auto 0.4 % (0.0-0.4); Lymphocytes Absolute Auto 1.1 X10*3/uL (1.2-4.9); Lymphocytes Percent Auto 7.4 % (20-40); Mean Corpuscular HGB Conc 35.8 g/dl (31.0-35.0); Mean Corpuscular Hemoglobin 31.9 pg (27.0-33.0); Mean Corpuscular Volume 89.1 fL (80.0-98.0); Mean Platelet Volume 9.9 fL (9.4-12.3); Monocytes Absolute Auto 0.6 X10*3/uL (0.1-1.2); Neutrophils Absolute Auto 12.4 x10*3/uL (2.0-8.3); Neutrophils Percent Auto 87.1 % (45-73); Platelet Count 271 X10*3/uL (160-400); Red Blood Count 3.57 X10*6/uL (4.20-5.50); Red Cell Distribution Width 15.1 % (11.0-16.0); White Blood Count 14.2 X10*3/uL (4.8-10.8)
[2022-04-22 14:30] LABS: Venous Blood Gas Refer to POC result
[2022-04-22 14:31] LABS: VBG Base Excess 9.7 mmol/L; VBG HCO3 32 mmol/L (22-26); VBG pCO2 37 mmHg; VBG pH 7.54 (7.32-7.43); VBG pO2 86 mmHg
[2022-04-22 14:39] LABS: Bacteria Urine 4+ (None Seen); Hyaline Casts Urine 0-2 /LPF (0-2); RBC Urine >20 /HPF (0-2); WBC Urine 21-50 /HPF (0-5)
[2022-04-22 14:44] LABS: Appearance Urine Cloudy; Color Urine Red; Glucose Urine UA >=1000 mg/dL (Negative); Leukocyte Esterase Urine Small (1+) (Negative); Nitrite Urine Negative (Negative); Specific Gravity - Urine 1.015 (1.005-1.025); UMIC TRIGGER UACC YES; Urine Blood Large (3+) (Negative); Urine Ketones Negative (Negative); Urine Protein >=1000 (4+) mg/dL (Neg-Trace)
[2022-04-22 14:45] LABS: UACC Culture Trigger YES
--- NOTE | 2022-04-22 14:53 | ED.CHESTPAIN ---
HPI - Chest Pain General Chief Complaint: Chest Pain Stated Complaint: CHEST PRESSURE, SOB,BLE SWELLING PER EMS Time Seen by Provider: 04/22/22 12:56 Source: patient Mode of arrival: EMS Limitations: no limitations History of Present Illness HPI narrative: 42-year-old female with past medical history chronic renal insufficiency, stage CHF, hypertension, cardiomyopathy, hepatic steatosis, bipolar, and mixed connective tissue disease presents to the emergency department, by EMS, for complaints of chest pressure, dizziness, and shortness of breath with exertion for the past 2 days. She states today she is having shortness of breath at rest and BLE swelling. She reports she has had similar symptoms in the past. She denies any recent illness or sick contacts. She denies any nausea, vomiting, diarrhea, constipation, headache, or vision changes. MD complaint: other (chest pressure) Onset (ago): day(s) Timing of current episode: episodic Prior episodes: Yes Onset: during rest and during exertion Pain radiation: none Severity: mild Pain scale (0-10): 3 Quality: other ( pressure) Relieving factors: nitroglycerin Exacerbating factors: exertion Treatment prior to arrival: aspirin (81 mg x 4) and nitroglycerin Risk Factors Coronary artery disease risk factors: smoking history and hypertension Related Data On Oral Contraceptives: No Home Medications Medication Instructions Recorded Confirmed clonazepam 1 mg tablet 1 tab PO DAILY PRN anxiety 01/27/22 04/02/22 dapagliflozin 10 mg-metformin ER 1 tab PO DAILY 01/27/22 04/02/22 1,000 mg tablet,extended release 24hr (Xigduo XR) amitriptyline 10 mg tablet 10 mg PO BEDTIME 03/20/22 04/02/22 carvedilol 25 mg tablet 50 mg PO BID 03/20/22 04/02/22 lisinopril 10 mg tablet 20 mg PO BID 03/20/22 04/02/22 nifedipine 60 mg tablet,extended 90 mg PO DAILY 04/02/22 04/02/22 release 24 hr spironolactone 100 mg tablet 100 mg PO DAILY 04/02/22 04/02/22 Previous Rx's Medication Instructions Recorded albuterol sulfate 90 mcg/actuation 1 inh inhalation QID PRN Wheezing 02/11/22 aerosol inhaler 30 days #8.5 grams aspirin 81 mg tablet,delayed 81 mg PO DAILY 90 days #90 tabs 03/20/22 release blood sugar diagnostic (FreeStyle #100 ea 03/20/22 Lite Strips) blood-glucose meter (FreeStyle #1 ea 03/20/22 Lite Meter kit) lancets 28 gauge (FreeStyle #100 ea 03/20/22 Lancets) blood pressure test kit-large #1 ea 03/25/22 dulaglutide 0.75 mg/0.5 mL 1.5 mg subcut QWEEK #2 mL 04/22/22 subcutaneous pen injector (Trulicity) Allergies Allergy/AdvReac Type Severity Reaction Status Date / Time Cephalosporins Allergy Intermediate RASH ALL Verified 02/28/22 18:06 [CEPHALOSPORINS] OVER amoxicillin Allergy Unknown rash Verified 02/28/22 18:06 cefaclor [From Ceclor] Allergy Unknown RASH Verified 02/28/22 18:06 cephalexin Allergy Unknown rash Verified 02/28/22 18:06 cephradine [From VELOSEF] Allergy Unknown RASH Verified 02/28/22 18:06 Penicillins [PENICILLINS] Allergy Unknown RASH Verified 02/28/22 18:06 gabapentin [GABAPENTIN] AdvReac Unknown RESTLESS Verified 02/28/22 18:06 LEGS, Body becomes very uncomfortable Review of Systems Review of Systems: In addition to documented HPI above, the additional ROS was obtained: CONSTITUTIONAL: Denies fever, chills, weakness, fatigue, headache, night sweats, or weight loss EYES: Denies vision changes, eye pain, swelling, redness, foreign body, discharge ENT: Hearing normal. Denies sore throat, swallowing difficulty. congestion, ear pain, no hoarseness or CV: Denies epigastric pain. No palpitations RESP: Denies cough, wheezing, dyspnea. Denies smoke exposure GI: Denies abdominal pain. Denies nausea, vomiting, constipation or diarrhea. No melena or hematochezia. : Denies irregular bleeding, and dysuria, urinary frequency, urinary incontinence/retention, urgency. Denies flank pain, hematuria MSK: Denies recent trauma, change in gait, myalgias, joint swelling or pain SKIN: Denies no lesions, rashes, or sores NEURO: Denies new numbness, tingling, dizziness, paresthesias or weakness. No loss of consciousness. Denies headache ENDOCRINE: Denies unexpected weight loss. Denies polyuria, polydipsia. No temperature intolerance HEME/ONC: Denies bleeding disorders, easy bruising, or lymphadenopathy PSYCH: Denies anxiety/panic, depression, SI/HI, or social issues. Yes all other systems are reviewed and are negative [facility] Past Medical History Attestation statement: The following information was validated with the patient. Source: old records reviewed Medical History Anxiety Bipolar 1 disorder Cardiomyopathy CKD (chronic kidney disease) CKD (chronic kidney disease) stage 2, GFR 60-89 ml/min Diabetes mellitus Eclampsia Fatty liver H/O mixed connective tissue disease Heart block AV second degree High cholesterol History of DVT (deep vein thrombosis) HTN (hypertension) Hypersomnia Lupus Malignant hypertension Migraines Nicotine dependence, cigarettes, uncomplicated (~1999) PTSD (post-traumatic stress disorder) Rheumatoid arthritis Sjogren's disease Surgical History History of bronchoscopy (~11/2020) History of cholecystectomy (~05/2014) History of hysterectomy Family History Family History Father Substance use disorder Mental health disorder Brother Substance use disorder Mental health disorder Brother Substance use disorder Mental health disorder Other Diabetes HTN (hypertension) Social History Social History Household Members: Children Household Members Other:: boyfriend Housing: House Are you a primary career information specialist to a significant other at home: No Do you presently have visiting nurse or other home services: No Alcohol intake: former Patient Tobacco Use Status: Never used Tobacco Tobacco use type: Cigarette Cigarette Packs Per Day: 0.5 Cigarettes Per Day: 10.0 Years Smoked: 20 e-Cigarette/Vaping Use: Never Used Second Hand Smoke Exposure: No Substance Use Type: IV Drugs Advance Directives: Yes Advance Directives on File: Yes Advance Directives Date on File: 06/03/21 service: No Current occupational status: disabled Cognitive needs: No Hearing needs: No Vision needs: No Physical Exam Vital Signs: Vital Signs: Last Vital Signs Pulse 75 04/22/22 15:20 Resp 15 04/22/22 15:20 BP 188/114 H 04/22/22 15:20 Pulse Ox 90 L 04/22/22 15:20 O2 Del Method 04/22/22 15:20 BMI result Body Mass Index 29.7 Nursing notes and vital signs reviewed. GENERAL APPEARANCE: A&0 x 4, generally well appearing, no acute distress HENMT: Normal to inspection, atraumatic, face symmetrical. Normal external ears, nose, and oropharynx clear. EYE: PERRLA, EOM intact, structures appear normal NECK: Supple without lymphadenopathy. No stiffness or restricted ROM. CHEST: Normal to inspection CARDIOVASCULAR: Normal rate and regular rhythm, normal S1/S2, no M/R/G. 1 + pitting edema BLE. 2 + dp/pt pulses. LUNGS: LS diminished. Able to speak in complete sentences. No crackles, wheezes, or rhonchi auscultated ABDOMEN: Soft, nontender, nondistended. Normal bowel sounds noted BACK: No CVAT, no obvious deformity EXTREMITIES: Moving all extremities without difficulty. No cyanosis, clubbing, or edema. Normal capillary refill. NEUROLOGICAL: Alert and oriented, moving all 4 extremities with equal strength. CN not formally tested but appearing grossly intact. Observed to ambulate with normal gait. Cognition normal SKIN: Warm and dry without any lesions, rash, or visible sores PSYCH: Cooperative, normal affect, normal thought process Course Course Course Narrative: 1315: Plan for EKG, blood work and UA 1410: EKG NSR, possible left atrial enlargement, left ventricular hypertrophy 3 with repolarization abnormality and nonspecific ST abnormality. When compared to EKG 01/27/2022 no significant changes. 1445: Urinalysis consistent urinary tract infection. Discussed this with patient. Patient believes she has recurrent urinary tract infections after sexual intercourse. Plan for 5 day course of Nitrofurantoin for antibiotic coverage. Patient educated to follow up with her primary care and case coordinator providers regarding recurrent UTIs. 1530: BNP elevated at greater than 4300 consistent with CHF exacerbation and chronic kidney disease 1545: Case discussed with Dr Sands with MD at bedside to assess pt. Recommendation for 40 mg IV lasix and nitropaste for BP control. 1600: Repeat troponin ordered as initial troponin elevated at 43.6. 1700: After 40 mg Lasix, lung sounds diminished throughout, no crackles, rhonchi, wheezing noted. Plan for admission for further treatment of CHF exacerbation. Medications Administered Discontinued Medications Generic Name Dose Route Start Last Admin Trade Name Freq PRN Reason Stop Dose Admin Furosemide 40 mg 04/22/22 15:52 04/22/22 16:04 Furosemide 40 Mg/4 Ml Vial IVPUSH 04/22/22 15:53 40 mg ONCE ONE Administration Protocol Nitrofurantoin Macrocrystals 100 mg 04/22/22 17:14 04/22/22 17:30 Nitrofurantoin Monohyd/M-Cryst 100 Mg Capsule PO 04/22/22 17:15 100 mg ONCE ONE Administration Nitroglycerin 1 inch 04/22/22 15:52 04/22/22 16:03 Nitroglycerin 2 % Oint 1 Gm Packet TRANSDERMA 04/22/22 15:53 1 inch ONCE ONE Administration Medical Decision Making Medical Decision Making MDM Narrative: 42-year-old female with past medical history chronic renal insufficiency, stage CHF, hypertension, cardiomyopathy, hepatic steatosis, bipolar, and mixed connective tissue disease presents to the emergency department, by EMS, for complaints of chest pressure, dizziness, and shortness of breath with exertion for the past 2 days. Blood work with elevated BNP consistent with right heart strain, CHF exacerbation, and chronic kidney disease. EKG normal sinus rhythm, possible left atrial enlargement, LVH, nonspecific ST abnormality, no changes when compared to previous EKG done on 02/28 22. Urinalysis positive for urinary tract infection, Macrobid started in the ED. Initial troponin 43.6 with repeat 44.3 with no significant change. Hematology remarkable for elevated WBC and hyperchromic anemia compared to previous H/H values. Chemistry significant for elevated BUN and creatinine compared to previous values. VBG with primary respiratory alkalosis. Repeat glucose 298, plan for 5 units lispro. Spoke with hospitalist regarding patient with plan for admission for further treatment and management for exacerbated CHF and acute worsening of chronic kidney disease. HPI, PE, diagnostics, and plan discussed with patient and family and pt in agreement with plan with no unanswered questions at this time. *Refer to Course for additional information on consultations, diagnostic interpretation, consultations, emergency department stay, conversations with patient and family, shared decision making with patient, and more information on medical decision making* Differential Diagnosis CHF exacerbation, acute on chronic kidney disease Admission/Observation Consideration of admission/observation: Escalation of care including admission/observation considered ( plan for admission for additional management) Consult Healthcare Provider Management of the patient was discussed with: Hospitalist (Karla Simons) Lab Data MDM Lab Attestation statement: I reviewed the patient's lab results. 04/22/22 14:18 04/22/22 14:18 Labs: Lab Results 04/22/22 04/22/22 04/22/22 Range/Units 14:18 14:18 14:18 WBC 14.2 H (4.8-10.8) X10*3/uL RBC 3.57 L (4.20-5.50) X10*6/uL Hgb 11.4 L (12.0-16.0) g/dl Hct 31.8 L (37.0-47.0) % MCV 89.1 (80.0-98.0) fL MCH 31.9 (27.0-33.0) pg MCHC 35.8 H (31.0-35.0) g/dl RDW 15.1 (11.0-16.0) % Plt Count 271 D (160-400) X10*3/uL MPV 9.9 (9.4-12.3) fL Immature Gran % (Auto) 0.4 (0.0-0.4) % Neut % (Auto) 87.1 H (45-73) % Lymph % (Auto) 7.4 L (20-40) % [place] % (Auto) 4.0 (2-11) % Eos % (Auto) 0.6 (0-4) % Baso % (Auto) 0.5 (0-2) % Lymph # (Auto) 1.1 L (1.2-4.9) X10*3/uL [place] # (Auto) 0.6 (0.1-1.2) X10*3/uL Eos # (Auto) 0.1 (0.0-0.4) X10*3/uL Baso # (Auto) 0.1 (0.0-0.2) X10*3/uL Abs Immat Gran (auto) 0.06 H (0.00-0.03) X10*3/uL Absolute Neuts (auto) 12.4 H (2.0-8.3) x10*3/uL Absolute Nucleated RBC 0.000 (0.0-0.012) X10*3/uL Nucleated RBC % (auto) 0.0 (0.0-0.2) /100WBC VBG pH (7.32-7.43) VBG pCO2 mmHg VBG pO2 mmHg VBG HCO3 (22-26) mmol/L VBG O2 Saturation % VBG Base Excess mmol/L Sodium 134 L (135-145) mmol/L Potassium 3.7 (3.3-5.1) mmol/L Chloride 98 (96-108) mmol/L Carbon Dioxide 27 (22-29) mmol/L Anion Gap 13 (12-20) BUN 32 H (9-16) mg/dL Creatinine 2.21 H (0.5-1.4) mg/dL Estim Creat Clear Calc 38.1 Estimated GFR 25 POC Glucose (60-115) mg/dL Random Glucose 332 H (60-115) mg/dL Calcium 8.4 (8.4-10.2) mg/dL Magnesium 1.8 (1.6-2.6) mg/dL Total Bilirubin 1.2 H (0.0-1.0) mg/dL AST 22 (5-31) U/L ALT 25 (0-31) U/L Alkaline Phosphatase 126 H (39-117) U/L Troponin I High Sens 43.6 H D (<3.5-17.0) ng/L B-Natriuretic Peptide (<100) pg/mL Total Protein 5.0 L (6.5-8.0) g/dL Albumin 3.0 L (3.5-5.0) g/dL Urine Color Urine Appearance Urine pH (5.0-9.0) Ur Specific [place] (1.005-1.025) Urine Protein (Neg-Trace) mg/dL Urine Glucose (UA) (Negative) mg/dL Urine Ketones (Negative) mg/dL Urine Blood (Negative) Urine Nitrite (Negative) Ur Leukocyte Esterase (Negative) Urine RBC (0-2) /HPF Urine WBC (0-5) /HPF Ur Squamous Epith Cells (0-2) /HPF Urine Bacteria (None Seen) Hyaline Casts (0-2) /LPF Influenza Type A (PCR) (Negative) Influenza Type B (PCR) (Negative) RSV RNA Qual (PCR) (Negative) SARS-CoV-2 RNA (RT-PCR) (Negative) 04/22/22 04/22/22 04/22/22 Range/Units 14:18 14:18 14:18 WBC (4.8-10.8) X10*3/uL RBC (4.20-5.50) X10*6/uL Hgb (12.0-16.0) g/dl Hct (37.0-47.0) % MCV (80.0-98.0) fL MCH (27.0-33.0) pg MCHC (31.0-35.0) g/dl RDW (11.0-16.0) % Plt Count (160-400) X10*3/uL MPV (9.4-12.3) fL Immature Gran % (Auto) (0.0-0.4) % Neut % (Auto) (45-73) % Lymph % (Auto) (20-40) % [place] % (Auto) (2-11) % Eos % (Auto) (0-4) % Baso % (Auto) (0-2) % Lymph # (Auto) (1.2-4.9) X10*3/uL [place] # (Auto) (0.1-1.2) X10*3/uL Eos # (Auto) (0.0-0.4) X10*3/uL Baso # (Auto) (0.0-0.2) X10*3/uL Abs Immat Gran (auto) (0.00-0.03) X10*3/uL Absolute Neuts (auto) (2.0-8.3) x10*3/uL Absolute Nucleated RBC (0.0-0.012) X10*3/uL Nucleated RBC % (auto) (0.0-0.2) /100WBC VBG pH (7.32-7.43) VBG pCO2 mmHg VBG pO2 mmHg VBG HCO3 (22-26) mmol/L VBG O2 Saturation % VBG Base Excess mmol/L Sodium (135-145) mmol/L Potassium (3.3-5.1) mmol/L Chloride (96-108) mmol/L Carbon Dioxide (22-29) mmol/L Anion Gap (12-20) BUN (9-16) mg/dL Creatinine (0.5-1.4) mg/dL Estim Creat Clear Calc Estimated GFR POC Glucose (60-115) mg/dL Random Glucose (60-115) mg/dL Calcium (8.4-10.2) mg/dL Magnesium (1.6-2.6) mg/dL Total Bilirubin (0.0-1.0) mg/dL AST (5-31) U/L ALT (0-31) U/L Alkaline Phosphatase (39-117) U/L Troponin I High Sens (<3.5-17.0) ng/L B-Natriuretic Peptide 4304 H (<100) pg/mL Total Protein (6.5-8.0) g/dL Albumin (3.5-5.0) g/dL Urine Color Red A Urine Appearance Cloudy Urine pH 7.0 (5.0-9.0) Ur Specific [place] 1.015 (1.005-1.025) Urine Protein >=1000 (4+) H (Neg-Trace) mg/dL Urine Glucose (UA) >=1000 H (Negative) mg/dL Urine Ketones Negative (Negative) mg/dL Urine Blood Large (3+) H (Negative) Urine Nitrite Negative (Negative) Ur Leukocyte Esterase Small (1+) H (Negative) Urine RBC >20 H (0-2) /HPF Urine WBC 21-50 H (0-5) /HPF Ur Squamous Epith Cells 3-5 (0-2) /HPF Urine Bacteria 4+ (None Seen) Hyaline Casts 0-2 (0-2) /LPF Influenza Type A (PCR) NEGATIVE (Negative) Influenza Type B (PCR) NEGATIVE (Negative) RSV RNA Qual (PCR) NEGATIVE (Negative) SARS-CoV-2 RNA (RT-PCR) NEGATIVE (Negative) 04/22/22 04/22/22 04/22/22 Range/Units 14:24 16:37 17:47 WBC (4.8-10.8) X10*3/uL RBC (4.20-5.50) X10*6/uL Hgb (12.0-16.0) g/dl Hct (37.0-47.0) % MCV (80.0-98.0) fL MCH (27.0-33.0) pg MCHC (31.0-35.0) g/dl RDW (11.0-16.0) % Plt Count (160-400) X10*3/uL MPV (9.4-12.3) fL Immature Gran % (Auto) (0.0-0.4) % Neut % (Auto) (45-73) % Lymph % (Auto) (20-40) % [place] % (Auto) (2-11) % Eos % (Auto) (0-4) % Baso % (Auto) (0-2) % Lymph # (Auto) (1.2-4.9) X10*3/uL [place] # (Auto) (0.1-1.2) X10*3/uL Eos # (Auto) (0.0-0.4) X10*3/uL Baso # (Auto) (0.0-0.2) X10*3/uL Abs Immat Gran (auto) (0.00-0.03) X10*3/uL Absolute Neuts (auto) (2.0-8.3) x10*3/uL Absolute Nucleated RBC (0.0-0.012) X10*3/uL Nucleated RBC % (auto) (0.0-0.2) /100WBC VBG pH 7.54 H (7.32-7.43) VBG pCO2 37 mmHg VBG pO2 86 mmHg VBG HCO3 32 H (22-26) mmol/L VBG O2 Saturation 99.0 % VBG Base Excess 9.7 mmol/L Sodium (135-145) mmol/L Potassium (3.3-5.1) mmol/L Chloride (96-108) mmol/L Carbon Dioxide (22-29) mmol/L Anion Gap (12-20) BUN (9-16) mg/dL Creatinine (0.5-1.4) mg/dL Estim Creat Clear Calc Estimated GFR POC Glucose 298 H (60-115) mg/dL Random Glucose (60-115) mg/dL Calcium (8.4-10.2) mg/dL Magnesium (1.6-2.6) mg/dL Total Bilirubin (0.0-1.0) mg/dL AST (5-31) U/L ALT (0-31) U/L Alkaline Phosphatase (39-117) U/L Troponin I High Sens 44.3 H (<3.5-17.0) ng/L B-Natriuretic Peptide (<100) pg/mL Total Protein (6.5-8.0) g/dL Albumin (3.5-5.0) g/dL Urine Color Urine Appearance Urine pH (5.0-9.0) Ur Specific [place] (1.005-1.025) Urine Protein (Neg-Trace) mg/dL Urine Glucose (UA) (Negative) mg/dL Urine Ketones (Negative) mg/dL Urine Blood (Negative) Urine Nitrite (Negative) Ur Leukocyte Esterase (Negative) Urine RBC (0-2) /HPF Urine WBC (0-5) /HPF Ur Squamous Epith Cells (0-2) /HPF Urine Bacteria (None Seen) Hyaline Casts (0-2) /LPF Influenza Type A (PCR) (Negative) Influenza Type B (PCR) (Negative) RSV RNA Qual (PCR) (Negative) SARS-CoV-2 RNA (RT-PCR) (Negative) Independent Interpretation I performed an independent interpretation of an: EKG Interpretation: he independently interpreted the EKG is normal sinus rhythm with possible left atrial enlargement and LVH with no significant change compared to last EKG done on 02/28/2022. Vent. Rate : 072 BPM ? ? Atrial Rate : 072 BPM ?? P-R Int : 152 ms? QRS Dur : 092 ms ? ? QT Int : 440 ms ? ? ? P-R-T Axes : 047 -03 158 degrees ?? QTc Int : 481 ms ? Normal sinus rhythm Possible Left atrial enlargement Left ventricular hypertrophy with repolarization abnormality ( R in aVL , Sokolow-Abarca , Omar product , Romhilt-Peres ) Nonspecific ST abnormality Prolonged QT Abnormal ECG When compared with ECG of 28-FEB-2022 18:33, No significant change was found Radiology Impression Discussion of test interpretation with radiology: I have reviewed the radiologist's reading. Radiologist Impression: I have independently interpreted the chest x-ray showing mild infiltrate and left base with no lobar consolidation or pleural effusion. EXAMINATION: XR chest 1V CLINICAL INFORMATION: Chest pressure COMPARISON: Prior chest x-ray 02/28/2022? TECHNIQUE: XR chest 1V Tubes and lines: None Lungs and pleura: Mild interstitial opacification probably mild infiltrate at left lung base, no dense lobar consolidation lobar pneumonia. Costophrenic angles are sharp, no significant pleural effusion. Heart and mediastinum: The mediastinum is within normal limits.. Bones/soft tissue: Skeletal structures included are normal for patient's age. XR/XR chest 1V IMPRESSION: ? *? Mild interstitial opacification probably mild infiltrate at left lung base. ? *? No dense lobar consolidation or pleural effusion. ? Dictated By: Stephon Draper MD Signed By: <Electronically signed by Stephon Draper MD in [place]> 04/22/22 1628 DD/ 1600 TD/TT:? Biological Sciences Instructor: HS Chronic Conditions Patient?s care impacted by: Hypertension Discharge Plan Discharge Clinical Impression: Acute exacerbation of CHF (congestive heart failure), Acute worsening of stage 3 chronic kidney disease Patient Disposition: Admitted As Inpatient
[2022-04-22 15:01] LABS: B Type Natriuretic Peptide 4304 pg/mL (<100)
[2022-04-22 15:03] LABS: Troponin-I High Sensitivity 43.6 ng/L (<3.5-17.0)
[2022-04-22 15:14] LABS: Alanine Aminotransferase 25 U/L (0-31); Alkaline Phosphatase 126 U/L (39-117); Anion Gap 13 (12-20); Aspartate Amino Transferase 22 U/L (5-31); Bilirubin Total 1.2 mg/dL (0.0-1.0); Blood Urea Nitrogen 32 mg/dL (9-16); Calcium 8.4 mg/dL (8.4-10.2); Carbon Dioxide 27 mmol/L (22-29); Chloride 98 mmol/L (96-108); Creatinine Clr Calc Pharmacy 38.1; Estimated Glomerular Filt Rate 25; Glucose Random 332 mg/dL (60-115); Magnesium 1.8 mg/dL (1.6-2.6); Potassium 3.7 mmol/L (3.3-5.1); Sodium 134 mmol/L (135-145)
[2022-04-22 15:20] VITALS: BP 188/114; PULSE 75; RESP 15; O2SAT 90
[2022-04-22 15:20] LABS: Influenza A PCR NEGATIVE (Negative); Influenza B PCR NEGATIVE (Negative); Resp Syncy Virus RNA Qual PCR NEGATIVE (Negative); SARS COV2 PCR INHOUSE NEGATIVE (Negative)
[2022-04-22] MEDS: Nitroglycerin 2 % Oint 1 GM Packet 1 INCH TRANSDERMA (16:03)
[2022-04-22] MEDS: Furosemide 40 MG/4 ML VIAL IVPUSH (16:04)
[2022-04-22 17:11] LABS: Troponin-I High Sensitivity 44.3 ng/L (<3.5-17.0)
[2022-04-22] MEDS: Nitrofurantoin Monohyd/M-Cryst 100 MG CAPSULE PO (17:30)
[2022-04-22 17:52] LABS: Glucose, Whole Blood 298 mg/dL (60-115)
[2022-04-22] MEDS: Insulin Lispro 100 UNIT/ML 3 ML VIAL SUBCUT ×2 (18:35→21:00)
--- NOTE | 2022-04-22 18:49 | PHA.MEDREC ---
Pharmacy Consult ? Medication Reconciliation Pharmacy has completed the medication reconciliation.
--- NOTE | 2022-04-22 18:57 | PC.NURSE ---
Addendum entered by Ave Nieves RN 04/23/22 06:54: report given to AGUILAR Arroyo Addendum entered by Ave Nieves RN 04/22/22 19:31: pt is alert and oriented resting in bed no signs of acute distress notice breathing equally unlabored pt denies any chest pain or sob pt on continuos cardiac monitoring Original Note: report received from AGUILAR Lund
--- NOTE | 2022-04-22 19:26 | PM.IMHP ---
History of Present Illness Date of Service: 04/22/22 Chief Complaint: Dyspnea This is a 42-year-old female with pertinent history of combined systolic and diastolic heart failure, whx-nkukavh-sqqfrowpv diabetes mellitus, mood disorder, essential hypertension, chronic kidney disease who presents to the emergency department for evaluation of dyspnea. Patient states she has been having dyspnea, worse with exertion that has been progressive and constant. It started about 3 days prior to presentation. Patient also noticed bilateral lower extremity leg swelling. Admits orthopnea and PND. She states she has been compliant with home medications. Patient denies fever, chills, cough, palpitations, abdominal pain, changes in bowel habits. Admits urinary frequency and hesitancy. No dysuria. Patient states she has been having runny nose and watering of eyes over the last 2-3 days In the emergency department, BNP was significantly elevated and patient was treated with 1 dose of IV Lasix. Also blood pressure was elevated at the time of initial ER visit Review of Systems Constitutional: Constitutional: Reports malaise and Reports weakness Cardiovascular: Cardiovascular: Reports dyspnea on exertion, Reports orthopnea and Reports paroxysmal nocturnal dyspnea Respiratory: Respiratory: Reports dyspnea on exertion Gastrointestinal: Gastrointestinal: Reports no additional gastrointestinal complaints Genitourinary: Genitourinary: Reports nocturia, Reports urinary hesitancy and Reports urinary urgency Neurologic: Reports weakness PMFSH Medical History Anxiety Bipolar 1 disorder Cardiomyopathy CKD (chronic kidney disease) CKD (chronic kidney disease) stage 2, GFR 60-89 ml/min Diabetes mellitus Eclampsia Fatty liver H/O mixed connective tissue disease Heart block AV second degree High cholesterol History of DVT (deep vein thrombosis) HTN (hypertension) Hypersomnia Lupus Malignant hypertension Migraines Nicotine dependence, cigarettes, uncomplicated (~1999) PTSD (post-traumatic stress disorder) Rheumatoid arthritis Sjogren's disease Family History Father Substance use disorder Mental health disorder Brother Substance use disorder Mental health disorder Brother Substance use disorder Mental health disorder Other Diabetes HTN (hypertension) Surgical History History of bronchoscopy (~11/2020) History of cholecystectomy (~05/2014) History of hysterectomy Social History Household Members: Children Household Members Other:: boyfriend Housing: House Are you a primary health care marketing manager to a significant other at home: No Do you presently have visiting nurse or other home services: No Alcohol intake: former Patient Tobacco Use Status: Never used Tobacco Tobacco use type: Cigarette Cigarette Packs Per Day: 0.5 Cigarettes Per Day: 10.0 Years Smoked: 20 e-Cigarette/Vaping Use: Never Used Second Hand Smoke Exposure: No Substance Use Type: IV Drugs Advance Directives: Yes Advance Directives on File: Yes Advance Directives Date on File: 06/03/21 service: No Current occupational status: disabled Cognitive needs: No Hearing needs: No Vision needs: No Meds Allergies Allergy/AdvReac Type Severity Reaction Status Date / Time Cephalosporins Allergy Intermediate RASH ALL Verified 02/28/22 18:06 [CEPHALOSPORINS] OVER amoxicillin Allergy Unknown rash Verified 02/28/22 18:06 cefaclor [From Ceclor] Allergy Unknown RASH Verified 02/28/22 18:06 cephalexin Allergy Unknown rash Verified 02/28/22 18:06 cephradine [From VELOSEF] Allergy Unknown RASH Verified 02/28/22 18:06 Penicillins [PENICILLINS] Allergy Unknown RASH Verified 02/28/22 18:06 gabapentin [GABAPENTIN] AdvReac Unknown RESTLESS Verified 02/28/22 18:06 LEGS, Body becomes very uncomfortable Active Medications: Current Medications Acetaminophen (Acetaminophen 325 Mg Tablet) 650 mg PO Q6H PRN PRN Reason: Pain, Mild (Pain Scale 1-3) Enoxaparin Sodium (Enoxaparin Sodium 40 Mg/0.4 Ml Syringe) 40 mg SUBCUT Q24H [facility] Melatonin (Melatonin 3 Mg Tablet) 6 mg PO BEDTIME PRN PRN Reason: Insomnia Ondansetron HCl (Ondansetron Hcl 4 Mg/2 Ml Vial) 4 mg IVPUSH Q8H PRN PRN Reason: Nausea and Vomiting Pharmacy Consult (Consult Rx Perform Med Rec) 1 each MISCELLANE ONCE PRN PRN Reason: Consult order Sodium Chloride (0.9 % Sodium Chloride Flush 3 Ml Syringe) 3 ml IVFLUSH QSHIFT [facility] Home Medications Medication Instructions Recorded Confirmed Last Taken Type clonazepam 1 mg tablet 1 tab PO DAILY PRN anxiety 01/27/22 04/22/22 04/21/22 History dapagliflozin 10 mg-metformin ER 1 tab PO DAILY 01/27/22 04/22/22 04/22/22 History 1,000 mg tablet,extended release 24hr (Xigduo XR) amitriptyline 10 mg tablet 10 mg PO BEDTIME 03/20/22 04/22/22 04/21/22 History carvedilol 25 mg tablet 50 mg PO BID 03/20/22 04/22/22 04/22/22 History lisinopril 10 mg tablet 20 mg PO BID 03/20/22 04/22/22 04/22/22 History spironolactone 100 mg tablet 100 mg PO DAILY 04/02/22 04/22/22 04/22/22 History dulaglutide 0.75 mg/0.5 mL 1.5 mg subcut WE 04/22/22 04/22/22 04/16/22 History subcutaneous pen injector (Trulicity) nicotine 14 mg/24 hr daily 1 patch topical DAILY 04/22/22 04/22/22 04/22/22 History transdermal patch nifedipine 90 mg tablet,extended 1 tab PO DAILY 04/22/22 04/22/22 04/22/22 History release 24 hr Physical Exam Vital Signs and Narrative: Vital Signs: Last Vital Signs Pulse 75 04/22/22 15:20 Resp 15 04/22/22 15:20 BP 188/114 H 04/22/22 15:20 Pulse Ox 90 L 04/22/22 15:20 O2 Del Method 04/22/22 15:20 BMI result Body Mass Index 29.7 Middle-aged female lying in bed in mild distress Neck supple, JVD + Regular rate and rhythm, S1-S2 heard Bilateral crackles appreciated, no wheezing Abdomen soft nontender, no guarding, no rigidity Patient is awake, alert and oriented to self, place, time and person ; no focal motor deficit Psych: Normal mood Bilateral pedal edema + Results Labs 04/22/22 14:18 04/22/22 14:18 Labs: Laboratory Results - last 24 hr 04/22/22 04/22/22 04/22/22 14:18 14:18 14:18 MCV 89.1 MCH 31.9 MCHC 35.8 H RDW 15.1 Plt Count 271 D MPV 9.9 Immature Gran % (Auto) 0.4 Neut % (Auto) 87.1 H Lymph % (Auto) 7.4 L Tyrrell % (Auto) 4.0 Eos % (Auto) 0.6 Baso % (Auto) 0.5 Lymph # (Auto) 1.1 L Tyrrell # (Auto) 0.6 Eos # (Auto) 0.1 Baso # (Auto) 0.1 Abs Immat Gran (auto) 0.06 H Absolute Neuts (auto) 12.4 H Absolute Nucleated RBC 0.000 Nucleated RBC % (auto) 0.0 VBG pH VBG pCO2 VBG pO2 VBG HCO3 VBG O2 Saturation VBG Base Excess Anion Gap 13 Estim Creat Clear Calc 38.1 Estimated GFR 25 POC Glucose Random Glucose 332 H Calcium 8.4 Magnesium 1.8 Total Bilirubin 1.2 H AST 22 ALT 25 Alkaline Phosphatase 126 H Troponin I High Sens 43.6 H D B-Natriuretic Peptide Total Protein 5.0 L Albumin 3.0 L Urine Color Urine Appearance Urine pH Ur Specific Yoder Urine Protein Urine Glucose (UA) Urine Ketones Urine Blood Urine Nitrite Ur Leukocyte Esterase Urine RBC Urine WBC Ur Squamous Epith Cells Urine Bacteria Hyaline Casts Influenza Type A (PCR) Influenza Type B (PCR) RSV RNA Qual (PCR) SARS-CoV-2 RNA (RT-PCR) 04/22/22 04/22/22 04/22/22 14:18 14:18 14:18 MCV MCH MCHC RDW Plt Count MPV Immature Gran % (Auto) Neut % (Auto) Lymph % (Auto) Tyrrell % (Auto) Eos % (Auto) Baso % (Auto) Lymph # (Auto) Tyrrell # (Auto) Eos # (Auto) Baso # (Auto) Abs Immat Gran (auto) Absolute Neuts (auto) Absolute Nucleated RBC Nucleated RBC % (auto) VBG pH VBG pCO2 VBG pO2 VBG HCO3 VBG O2 Saturation VBG Base Excess Anion Gap Estim Creat Clear Calc Estimated GFR POC Glucose Random Glucose Calcium Magnesium Total Bilirubin AST ALT Alkaline Phosphatase Troponin I High Sens B-Natriuretic Peptide 4304 H Total Protein Albumin Urine Color Red A Urine Appearance Cloudy Urine pH 7.0 Ur Specific Yoder 1.015 Urine Protein >=1000 (4+) H Urine Glucose (UA) >=1000 H Urine Ketones Negative Urine Blood Large (3+) H Urine Nitrite Negative Ur Leukocyte Esterase Small (1+) H Urine RBC >20 H Urine WBC 21-50 H Ur Squamous Epith Cells 3-5 Urine Bacteria 4+ Hyaline Casts 0-2 Influenza Type A (PCR) NEGATIVE Influenza Type B (PCR) NEGATIVE RSV RNA Qual (PCR) NEGATIVE SARS-CoV-2 RNA (RT-PCR) NEGATIVE 04/22/22 04/22/22 04/22/22 14:24 16:37 17:47 MCV MCH MCHC RDW Plt Count MPV Immature Gran % (Auto) Neut % (Auto) Lymph % (Auto) Tyrrell % (Auto) Eos % (Auto) Baso % (Auto) Lymph # (Auto) Tyrrell # (Auto) Eos # (Auto) Baso # (Auto) Abs Immat Gran (auto) Absolute Neuts (auto) Absolute Nucleated RBC Nucleated RBC % (auto) VBG pH 7.54 H VBG pCO2 37 VBG pO2 86 VBG HCO3 32 H VBG O2 Saturation 99.0 VBG Base Excess 9.7 Anion Gap Estim Creat Clear Calc Estimated GFR POC Glucose 298 H Random Glucose Calcium Magnesium Total Bilirubin AST ALT Alkaline Phosphatase Troponin I High Sens 44.3 H B-Natriuretic Peptide Total Protein Albumin Urine Color Urine Appearance Urine pH Ur Specific Yoder Urine Protein Urine Glucose (UA) Urine Ketones Urine Blood Urine Nitrite Ur Leukocyte Esterase Urine RBC Urine WBC Ur Squamous Epith Cells Urine Bacteria Hyaline Casts Influenza Type A (PCR) Influenza Type B (PCR) RSV RNA Qual (PCR) SARS-CoV-2 RNA (RT-PCR) Imaging Radiologist's Impressions: Impressions Chest X-Ray 04/22/22 16:00 IMPRESSION: * Mild interstitial opacification probably mild infiltrate at left lung base. * No dense lobar consolidation or pleural effusion. Assessment and Plan (1) Acute exacerbation of CHF (congestive heart failure): Status: Acute (2) Acute worsening of stage 3 chronic kidney disease: Status: Acute (3) Bipolar 1 disorder: Status: Acute (4) Uncontrolled hypertension: Status: Acute Plan This is a 42-year-old female with pertinent history of combined systolic and diastolic heart failure, ulo-minmbzi-qefzqcwwt diabetes mellitus, mood disorder, essential hypertension, chronic kidney disease who presents to the emergency department for evaluation of dyspnea. #. Acute respiratory distress due to acute exacerbation of combined systolic and diastolic heart failure: Likely due to viral upper respiratory tract infection. Will admit patient and initiate IV diuretics, transition to p.o. Lasix once euvolemia is achieved. Strict Is and Os and low-salt diet. Obtaining transthoracic echo #. Hypertensive emergency: Noted previous noncompliance with medications. Will restart home antihypertensives and carefully normalize blood pressure about 24 hours #. Acute UTI: Initiating IV antibiotics. Follow urine culture #. Acute kidney injury on CKD: Likely cardiorenal type1 in the setting of CHF exacerbation. Monitor creatinine and urine output with IV Lasix. Avoid nephrotoxins #. Xvg-fjrnhpd-rumfcqfdj diabetes mellitus with hyperglycemia: Hold home anti hyperglycemics. Initiating basal plus regimen #. Elevated troponin: Likely type 2 in the setting of increased demand. Repeat in am #. Bipolar disorder: Continue home mood stabilizers #. Tobacco use disorder: Offered nicotine patch DVT prophylaxis: Lovenox 40 mg daily Full code Cardiac diet Admit as inpatient and will require two night minimum hospital stay for IV diuretics and close monitoring of blood pressure Time Spent With Patient Time: Total time managing care of this patient today ____ minutes. Quality Stroke Does the patient have a stroke diagnosis?: No VTE Prior VTE?: No VTE Risk Level:: Medical - moderate - high VTE Device Contraindication: Treatment Not Indicated VTE Drug Contraindication: N/A - Med Ordered
[2022-04-22 19:31] VITALS: BP 169/102; PULSE 73; RESP 20; TEMP 36.7; O2SAT 96
[2022-04-22 20:48] LABS: Glucose, Whole Blood 334 mg/dL (60-115)
[2022-04-22] MEDS: Insulin Glargine,Hum.rec.anlog 100 UNIT/ML 10 ML VIAL 15 UNIT SUBCUT (21:00)
[2022-04-22] MEDS: carvediloL 25 MG TABLET 50 MG PO (21:00)
[2022-04-22] MEDS: levoFLOXacin/D5W 750 MG/150 ML PIGGYBACK 100 MG IV (21:01)
[2022-04-22] MEDS: Acetaminophen 325 MG TABLET 650 MG PO (21:01)
[2022-04-22] MEDS: Amitriptyline HCl 10 MG TABLET PO (22:03)
--- NOTE | 2022-04-22 22:35 | MHC.CM.PN ---
IMM 04/22. CM met with admitted patient with bed assignment pending. A&Ox4. Independent. Lives with 3 children (17,15,3). Friend with children while hospitalized. No DME/services. HCP on file. HCP/mother Lala Streeter ([phone]). Pt is unvaccinated. Extensive medical history. Bipolar. D/C plan: Home without services. Pt to arrange transportation. CM following for discharge needs.
[2022-04-22 23:53] VITALS: BP 139/83; PULSE 64; RESP 24; TEMP 36.9; O2SAT 96
--- NOTE | 2022-04-23 | ECG_ITS ---
Test Reason : chest pain Blood Pressure : / mmHG Vent. Rate : 064 BPM Atrial Rate : 064 BPM P-R Int : 144 ms QRS Dur : 102 ms QT Int : 494 ms P-R-T Axes : 138 -22 150 degrees QTc Int : 509 ms Normal sinus rhythm Left atrial enlargement Left ventricular hypertrophy with repolarization abnormality ( R in aVL , Sokolow-Abarca , [place] product , Romhilt-Peres ) Prolonged QT Abnormal ECG When compared with ECG of 22-APR-2022 14:10, No significant changes seen Referred By: Zachary Ascencio Electronically Signed By:TIFFANIE SWANN MD
[2022-04-23 06:14] LABS: Glucose, Whole Blood 133 mg/dL (60-115)
[2022-04-23 06:22] LABS: Basophils Absolute Auto 0.1 X10*3/uL (0.0-0.2); Basophils Percent Auto 0.5 % (0-2); Eosinophils Absolute Auto 0.2 X10*3/uL (0.0-0.4); Eosinophils Percent Auto 1.5 % (0-4); Hematocrit 35.3 % (37.0-47.0); Hemoglobin 12.8 g/dl (12.0-16.0); Imm Gran Abs Auto 0.06 X10*3/uL (0.00-0.03); Imm Gran Pct Auto 0.5 % (0.0-0.4); Lymphocytes Absolute Auto 1.7 X10*3/uL (1.2-4.9); Lymphocytes Percent Auto 13.1 % (20-40); MANUAL DIFF FLAG NO; Mean Corpuscular HGB Conc 36.3 g/dl (31.0-35.0); Mean Corpuscular Hemoglobin 32.8 pg (27.0-33.0); Mean Corpuscular Volume 90.5 fL (80.0-98.0); Mean Platelet Volume 9.9 fL (9.4-12.3); Monocytes Absolute Auto 0.6 X10*3/uL (0.1-1.2); Monocytes Percent Auto 4.9 % (2-11); Neutrophils Absolute Auto 10.4 x10*3/uL (2.0-8.3); Neutrophils Percent Auto 79.5 % (45-73); Platelet Count 363 X10*3/uL (160-400); Red Cell Distribution Width 15.4 % (11.0-16.0); White Blood Count 13.1 X10*3/uL (4.8-10.8)
[2022-04-23] MEDS: traMADoL HCL 50 MG TABLET PO (06:39)
[2022-04-23 06:40] LABS: Anion Gap 13 (12-20); Blood Urea Nitrogen 30 mg/dL (9-16); Calcium 8.8 mg/dL (8.4-10.2); Carbon Dioxide 30 mmol/L (22-29); Chloride 98 mmol/L (96-108); Creatinine Clr Calc Pharmacy 41.7; Estimated Glomerular Filt Rate 27; Glucose Random 129 mg/dL (60-115); Potassium 3.8 mmol/L (3.3-5.1); Sodium 137 mmol/L (135-145)
[2022-04-23 06:45] LABS: Troponin-I High Sensitivity 36.4 ng/L (<3.5-17.0)
--- NOTE | 2022-04-23 07:00 | CA_ITS ---
Transthoracic Echocardiogram Patient (Last, First, Middle): Angela Streeter L Gender: Female Date of : 1980 Age: 42 Procedure Date: 04/23/2022 Procedure Type: Transthoracic Echocardiogram Location: [facility] [place] Height: 167.64 cm Weight: 86.18 kg BSA: 1.96 m2 Heart Rate: bpm BP: 139 / 83 mmHg Service Representative: Referring MD: Jayesh Montes MD Sales And Service Specialist: James Abraham MD Symptoms: CHF Study Quality: Good ECG Rhythm: Sinus Conclusions: - 1. Nslr-ia-uwonrure LV systolic dysfunction with LVEF of 40-45% with moderate LVH and grade 3 diastolic dysfunction 2. Severely dilated left atrium 3. Mild mitral regurgitation 4. Mildly elevated right ventricular systolic pressure with mildly elevated right atrial pressures 5. Trivial pericardial effusion Findings Left Ventricle Normal left ventricular cavity size. There is moderately increased left ventricular wall thickness. The left ventricular systolic function is mild to moderately decreased. The visually estimated ejection fraction is between 40-45%. Spectral Doppler is indicative of a restrictive filling pattern. E/E prime ratio is >15, consistent with elevated filling pressures. Evidence suggests grade III (severe) diastolic dysfunction. Right Ventricle Mildly increased right ventricular cavity size. There is normal right ventricular systolic function. Atria The left atrium is severely dilated. Interatrial shunt cannot be excluded. The right atrium is mildly dilated. Aortic Valve Normal aortic valve structure and function. There is no aortic valve stenosis. There is no aortic valve regurgitation. Mitral Valve Normal mitral valve structure and function. There is mild mitral valve regurgitation. There is no mitral valve stenosis. Pulmonic Valve The pulmonic valve is likely normal. Tricuspid Valve Normal tricuspid valve structure. There is mild tricuspid valve regurgitation. Mildly elevated right atrial pressure. Mild pulmonary hypertension is present. Great Vessels All visible segments of the aorta are normal in size. The pulmonary artery was not well visualized. Venous The inferior vena cava is mildly dilated and collapses less than 50% with inspiration. Pericardium/Pleural There is a trivial loculated pericardial effusion overlying the left ventricle. Prior Study Comparison No significant change compared to prior study dated: 05/31/2021. Measurements 2D Linear Measurements IVSd: 1.60 0.6-0.9/0.6-1.0 cm LVIDd: 5.52 3.9-5.3/4.2-5.9 cm LVIDd Index: 2.82 2.4-3.2/2.2-3.1 cm/m2 LVIDs: 4.05 2.0-3.6 cm LVPWd: 1.58 0.7-1.1 cm Ao Root: 3.10 2.1-3.5 cm LA Diam: 5.40 2.7-3.8/3.0-4.0 cm LAIDs Index: 2.76 1.5-2.3 cm/m2 LV Mass: 509.92 67-162/88-224 g LV Mass Index: 260.16 43-95/49-115 g/m2 LVOT Diam: 2.10 3.0+(-)1.3 cm 2D Systolic Function EF 4C: 43.40 >55% EF 2C: 43.00 >55% EF BiP: 43.80 >55% Mitral Valve MV Pk E: 1.00 MV PK A: 0.55 MV Decel Time: 224.00 E/A: 1.80 E'Lateral: 4.35 E'Medial: 4.03 E/E' Med: 24.80 E/E' Lat: 22.90 PHT: 66.00 MVA PHT: 3.33 Decel [place]: 4.46 Aortic Valve AoV Pk Sebas: 1.78 AoV Mn Sebas: 1.11 AoV VTI: 0.30 AoV Pk Grad: 13.00 Aov Mn Grad: 6.00 SATISH Cont.VTI: 2.11 LVOT LVOT Pk Sebas: 1.10 LVOT Mn Sebas: 0.73 LVOT VTI: 0.18 LVOT Pk Grad: 5.00 LVOT Mn Grad: 3.00 LVOT Diam: 2.10 LVOT Area: 3.46 Diastolic Function MV Pk E: 1.00 MV Pk A: 0.55 E/A: 1.80 E'Medial: 4.03 E/E' Med: 24.80 E' Laterial: 4.35 E/E' Lat: 22.90 Right Ventricle TAPSE (mm): 20.00 TVS' Sebas: 9.00 Tricuspid Valve TR Pk Sebas: 2.91 TR Pk Grad: 34.00 RA Press: 8.00 RVSP: 42.00 Great Vessels Aorta Ao Root-2D: 3.10 2.0-3.7 cm Ao Asc: 3.60 2.1-3.4 cm Pulmonary Valve PV Pk Sebas: 1.15 Peak PV Grad: 5.00 Updated in Other Vendor System with Status of Final James Abraham MD electronically signed on 04/23/2022 2:57:43 PM with status of Final
--- NOTE | 2022-04-23 07:15 | PC.NURSE ---
assumed care of patient, pt VSS, awaiting inpt bed, no needs at this time.
[2022-04-23] MEDS: Aspirin Enteric Coated 81 MG TABLET.DR PO (07:33)
[2022-04-23] MEDS: carvediloL 25 MG TABLET 50 MG PO ×2 (07:33→22:56)
[2022-04-23] MEDS: NIFEdipine ER 90 MG TAB.ER.24 PO (07:33)
[2022-04-23] MEDS: Spironolactone 25 MG TABLET 100 MG PO (07:34)
[2022-04-23] MEDS: Nicotine 14 MG PATCH.TD24 TRANSDERMA (07:34)
[2022-04-23] MEDS: Furosemide 40 MG/4 ML VIAL IVPUSH ×2 (07:34→16:59)
[2022-04-23] MEDS: Butalb/Acetamin/Caff 50/325/40 TABLET 1 TAB PO ×2 (08:00→22:57)
[2022-04-23 08:18] VITALS: BP 136/87; PULSE 60; RESP 21; TEMP 36.5; O2SAT 91
--- NOTE | 2022-04-23 08:52 | PC.NURSE ---
report given to inlul RN, transport notified for transfer upstairs
[2022-04-23 09:21] VITALS: BP 134/83; PULSE 60; RESP 22; TEMP 36.4; O2SAT 97
[2022-04-23 11:28] VITALS: BP 144/88; PULSE 65; RESP 16; TEMP 36.6; O2SAT 97
[2022-04-23 11:40] LABS: Glucose, Whole Blood 402 mg/dL (60-115)
--- NOTE | 2022-04-23 12:05 | HO.PM.IMPN ---
Subjective Subjective Date of Service: 04/23/22 Interval History: cc: sob interval history:ongoing sob, chest pressure Physical Exam Vital Signs: Vital Signs: Last Vital Signs Temp 97.9 F 04/23/22 11:28 Pulse 65 04/23/22 11:28 Resp 16 04/23/22 11:28 BP 144/88 H 04/23/22 11:28 Pulse Ox 97 04/23/22 11:28 O2 Del Method 04/23/22 11:28 BMI result Body Mass Index 29.7 General: AO X 3, no acute distress Resp: CTA bilateral, no accessory muscles used CVS: S1,S2,RRR GI: soft, non tender, non distended Neuro: motor grossly intact, alert Psych: appropriate affect, appropriate insight Objective Data Active Medications Acetaminophen (Acetaminophen 325 Mg Tablet) 650 mg PO Q6H PRN PRN Reason: Pain, Mild (Pain Scale 1-3) Last Admin: 04/22/22 21:01 Dose: 650 mg Documented By: FÁTIMA-ANICL Acetaminophen/Butalbital/Caffeine (Butalb/Acetamin/Caff 50/325/40 Tablet) 1 tab PO Q4H PRN PRN Reason: headache Last Admin: 04/23/22 08:00 Dose: 1 tab Documented By: FÁTIMA-SADAF Amitriptyline HCl (Amitriptyline Hcl 10 Mg Tablet) 10 mg PO BEDTIME [facility] Last Admin: 04/22/22 22:03 Dose: 10 mg Documented By: FÁTIMA-ANICL Aspirin (Aspirin Enteric Coated 81 Mg Tablet.) 81 mg PO DAILY [facility] Last Admin: 04/23/22 07:33 Dose: 81 mg Documented By: FÁTIMA-SADAF Carvedilol (Carvedilol 25 Mg Tablet) 50 mg PO BID [facility]; Protocol Last Admin: 04/23/22 07:33 Dose: 50 mg Documented By: FÁTIMA-SADAF Clonazepam (Clonazepam 1 Mg Tablet) 1 mg PO DAILY PRN PRN Reason: anxiety Dextrose (Dextrose 50 % 25 Gm/50 Ml Syringe) 25 gm IVPUSH Q15M PRN; Protocol PRN Reason: per Hypoglycemia Standing Ord. Enoxaparin Sodium (Enoxaparin Sodium 40 Mg/0.4 Ml Syringe) 40 mg SUBCUT Q24H [facility] Last Admin: 04/22/22 19:33 Dose: Not Given Documented By: CAITIEICL Non-Admin Reason: Patient Refused Furosemide (Furosemide 40 Mg/4 Ml Vial) 40 mg IVPUSH BID@0900,1800 [facility]; Protocol Last Admin: 04/23/22 07:34 Dose: 40 mg Documented By: LINDA Glucose (Glucose Gel 15 Gm Gel..Gram.) 15 gm PO Q15M PRN; Protocol PRN Reason: per Hypoglycemia Standing Ord. Insulin Glargine (Insulin Glargine,Hum.Rec.Anlog 100 Unit/Ml 10 Ml Vial) 15 unit SUBCUT BEDTIME [facility] Last Admin: 04/22/22 21:00 Dose: 15 unit Documented By: BARB Insulin Human Lispro (Insulin Lispro 100 Unit/Ml 3 Ml Vial) 0 unit SUBCUT QIDACHS [facility]; Protocol Last Admin: 04/23/22 07:19 Dose: Not Given Documented By: LINDA Non-Admin Reason: No Insulin Coverage Insulin Human Lispro (Insulin Lispro 100 Unit/Ml 3 Ml Vial) 5 unit SUBCUT QIDACHS [facility] Melatonin (Melatonin 3 Mg Tablet) 6 mg PO BEDTIME PRN PRN Reason: Insomnia Nicotine (Nicotine 14 Mg Patch.Td24) 14 mg TRANSDERMA DAILY [facility] Last Admin: 04/23/22 07:34 Dose: 14 mg Documented By: LINDA Nifedipine (Nifedipine Er 90 Mg Tab.Er.24) 90 mg PO DAILY [facility]; Protocol Last Admin: 04/23/22 07:33 Dose: 90 mg Documented By: LINDA Ondansetron HCl (Ondansetron Hcl 4 Mg/2 Ml Vial) 4 mg IVPUSH Q8H PRN PRN Reason: Nausea and Vomiting Pharmacy Consult (Consult Rx Perform Med Rec) 1 each MISCELLANE ONCE PRN PRN Reason: Consult order Sodium Chloride (0.9 % Sodium Chloride Flush 3 Ml Syringe) 3 ml IVFLUSH QSHIFT [facility] Last Admin: 04/23/22 07:34 Dose: Not Given Documented By: LINDA Non-Admin Reason: IV Running Spironolactone (Spironolactone 25 Mg Tablet) 100 mg PO DAILY [facility]; Protocol Last Admin: 04/23/22 07:34 Dose: 100 mg Documented By: HO.N-SADAF Labs 04/23/22 05:56 04/23/22 05:56 Labs: Laboratory Results - last 24 hr 04/22/22 04/22/22 04/22/22 14:18 14:18 14:18 MCV 89.1 MCH 31.9 MCHC 35.8 H RDW 15.1 Plt Count 271 D MPV 9.9 Immature Gran % (Auto) 0.4 Neut % (Auto) 87.1 H Lymph % (Auto) 7.4 L [place] % (Auto) 4.0 Eos % (Auto) 0.6 Baso % (Auto) 0.5 Lymph # (Auto) 1.1 L [place] # (Auto) 0.6 Eos # (Auto) 0.1 Baso # (Auto) 0.1 Abs Immat Gran (auto) 0.06 H Absolute Neuts (auto) 12.4 H Absolute Nucleated RBC 0.000 Nucleated RBC % (auto) 0.0 VBG pH VBG pCO2 VBG pO2 VBG HCO3 VBG O2 Saturation VBG Base Excess Anion Gap 13 Estim Creat Clear Calc 38.1 Estimated GFR 25 POC Glucose Random Glucose 332 H Calcium 8.4 Magnesium 1.8 Total Bilirubin 1.2 H AST 22 ALT 25 Alkaline Phosphatase 126 H Troponin I High Sens 43.6 H D B-Natriuretic Peptide Total Protein 5.0 L Albumin 3.0 L Urine Color Urine Appearance Urine pH Ur Specific Hug[place] Urine Protein Urine Glucose (UA) Urine Ketones Urine Blood Urine Nitrite Ur Leukocyte Esterase Urine RBC Urine WBC Ur Squamous Epith Cells Urine Bacteria Hyaline Casts Influenza Type A (PCR) Influenza Type B (PCR) RSV RNA Qual (PCR) SARS-CoV-2 RNA (RT-PCR) 04/22/22 04/22/22 04/22/22 14:18 14:18 14:18 MCV MCH MCHC RDW Plt Count MPV Immature Gran % (Auto) Neut % (Auto) Lymph % (Auto) [place] % (Auto) Eos % (Auto) Baso % (Auto) Lymph # (Auto) [place] # (Auto) Eos # (Auto) Baso # (Auto) Abs Immat Gran (auto) Absolute Neuts (auto) Absolute Nucleated RBC Nucleated RBC % (auto) VBG pH VBG pCO2 VBG pO2 VBG HCO3 VBG O2 Saturation VBG Base Excess Anion Gap Estim Creat Clear Calc Estimated GFR POC Glucose Random Glucose Calcium Magnesium Total Bilirubin AST ALT Alkaline Phosphatase Troponin I High Sens B-Natriuretic Peptide 4304 H Total Protein Albumin Urine Color Red A Urine Appearance Cloudy Urine pH 7.0 Ur Specific [place] 1.015 Urine Protein >=1000 (4+) H Urine Glucose (UA) >=1000 H Urine Ketones Negative Urine Blood Large (3+) H Urine Nitrite Negative Ur Leukocyte Esterase Small (1+) H Urine RBC >20 H Urine WBC 21-50 H Ur Squamous Epith Cells 3-5 Urine Bacteria 4+ Hyaline Casts 0-2 Influenza Type A (PCR) NEGATIVE Influenza Type B (PCR) NEGATIVE RSV RNA Qual (PCR) NEGATIVE SARS-CoV-2 RNA (RT-PCR) NEGATIVE 04/22/22 04/22/22 04/22/22 14:24 16:37 17:47 MCV MCH MCHC RDW Plt Count MPV Immature Gran % (Auto) Neut % (Auto) Lymph % (Auto) [place] % (Auto) Eos % (Auto) Baso % (Auto) Lymph # (Auto) [place] # (Auto) Eos # (Auto) Baso # (Auto) Abs Immat Gran (auto) Absolute Neuts (auto) Absolute Nucleated RBC Nucleated RBC % (auto) VBG pH 7.54 H VBG pCO2 37 VBG pO2 86 VBG HCO3 32 H VBG O2 Saturation 99.0 VBG Base Excess 9.7 Anion Gap Estim Creat Clear Calc Estimated GFR POC Glucose 298 H Random Glucose Calcium Magnesium Total Bilirubin AST ALT Alkaline Phosphatase Troponin I High Sens 44.3 H B-Natriuretic Peptide Total Protein Albumin Urine Color Urine Appearance Urine pH Ur Specific [place] Urine Protein Urine Glucose (UA) Urine Ketones Urine Blood Urine Nitrite Ur Leukocyte Esterase Urine RBC Urine WBC Ur Squamous Epith Cells Urine Bacteria Hyaline Casts Influenza Type A (PCR) Influenza Type B (PCR) RSV RNA Qual (PCR) SARS-CoV-2 RNA (RT-PCR) 04/22/22 04/23/22 04/23/22 20:44 05:56 05:56 MCV 90.5 MCH 32.8 MCHC 36.3 H RDW 15.4 Plt Count 363 D MPV 9.9 Immature Gran % (Auto) 0.5 H Neut % (Auto) 79.5 H Lymph % (Auto) 13.1 L [place] % (Auto) 4.9 Eos % (Auto) 1.5 Baso % (Auto) 0.5 Lymph # (Auto) 1.7 [place] # (Auto) 0.6 Eos # (Auto) 0.2 Baso # (Auto) 0.1 Abs Immat Gran (auto) 0.06 H Absolute Neuts (auto) 10.4 H Absolute Nucleated RBC 0.000 Nucleated RBC % (auto) 0.0 VBG pH VBG pCO2 VBG pO2 VBG HCO3 VBG O2 Saturation VBG Base Excess Anion Gap Estim Creat Clear Calc Estimated GFR POC Glucose 334 H Random Glucose Calcium Magnesium Total Bilirubin AST ALT Alkaline Phosphatase Troponin I High Sens 36.4 H B-Natriuretic Peptide Total Protein Albumin Urine Color Urine Appearance Urine pH Ur Specific Hug[place] Urine Protein Urine Glucose (UA) Urine Ketones Urine Blood Urine Nitrite Ur Leukocyte Esterase Urine RBC Urine WBC Ur Squamous Epith Cells Urine Bacteria Hyaline Casts Influenza Type A (PCR) Influenza Type B (PCR) RSV RNA Qual (PCR) SARS-CoV-2 RNA (RT-PCR) 04/23/22 04/23/22 04/23/22 05:56 06:11 11:31 MCV MCH MCHC RDW Plt Count MPV Immature Gran % (Auto) Neut % (Auto) Lymph % (Auto) [place] % (Auto) Eos % (Auto) Baso % (Auto) Lymph # (Auto) [place] # (Auto) Eos # (Auto) Baso # (Auto) Abs Immat Gran (auto) Absolute Neuts (auto) Absolute Nucleated RBC Nucleated RBC % (auto) VBG pH VBG pCO2 VBG pO2 VBG HCO3 VBG O2 Saturation VBG Base Excess Anion Gap 13 Estim Creat Clear Calc 41.7 Estimated GFR 27 POC Glucose 133 H 402 H* Random Glucose 129 H Calcium 8.8 Magnesium Total Bilirubin AST ALT Alkaline Phosphatase Troponin I High Sens B-Natriuretic Peptide Total Protein Albumin Urine Color Urine Appearance Urine pH Ur Specific [place] Urine Protein Urine Glucose (UA) Urine Ketones Urine Blood Urine Nitrite Ur Leukocyte Esterase Urine RBC Urine WBC Ur Squamous Epith Cells Urine Bacteria Hyaline Casts Influenza Type A (PCR) Influenza Type B (PCR) RSV RNA Qual (PCR) SARS-CoV-2 RNA (RT-PCR) Assessment and Plan (1) Uncontrolled hypertension: Status: Acute (2) CKD (chronic kidney disease): Status: Inactive Plan 42-year-old female with pertinent history of combined systolic and diastolic heart failure, [id number] diabetes mellitus, mood disorder, essential hypertension, chronic kidney disease III who presented to the emergency department for evaluation of dyspnea. dyspnea acute on chronic chf with reduced EF + hypertensive urgency iv lasix, coreg, aldactone, nifedipine troponin flat cardio eval tele monitor doubt uti dc abx MAYURI on CKD III improving with diuresis, monitor DM2 with hyperglycemia basal bolus insulin with correction, monitor pocs Bipolar disorder elavil, klonipin DVT prophylaxis:? Lovenox 40 mg daily Full code reason for continued hospitalization:iv diuresis Time Spent With Patient Time: Total time managing care of this patient today ____ minutes. Quality Stroke Does the patient have a stroke diagnosis?: No VTE Prior VTE?: No VTE Risk Level:: Medical - moderate - high VTE Device Contraindication: Treatment Not Indicated VTE Drug Contraindication: N/A - Med Ordered
[2022-04-23] MEDS: Insulin Lispro 100 UNIT/ML 3 ML VIAL SUBCUT ×5 (12:17→22:58)
[2022-04-23 15:32] VITALS: BP 138/77; PULSE 78; RESP 19; TEMP 36.7; O2SAT 97
[2022-04-23 16:33] LABS: Glucose, Whole Blood 212 mg/dL (60-115)
[2022-04-23] MEDS: 0.9 % Sodium Chloride Flush 3 ML SYRINGE IVFLUSH ×2 (16:59→22:59)
[2022-04-23 20:00] VITALS: BP 146/90; PULSE 70; RESP 20; TEMP 36.6; O2SAT 98
[2022-04-23 22:01] LABS: Glucose, Whole Blood 191 mg/dL (60-115)
[2022-04-23] MEDS: Insulin Glargine,Hum.rec.anlog 100 UNIT/ML 10 ML VIAL 15 UNIT SUBCUT (22:57)
[2022-04-23] MEDS: Amitriptyline HCl 10 MG TABLET PO (22:57)
[2022-04-24 04:00] VITALS: BP 176/83; PULSE 67; RESP 20; TEMP 37.1; O2SAT 93
[2022-04-24] MEDS: ondansetron HCL 4 MG/2 ML VIAL IVPUSH (06:47)
[2022-04-24 06:55] LABS: Hematocrit 31.7 % (37.0-47.0); Hemoglobin 11.1 g/dl (12.0-16.0); Mean Corpuscular Hemoglobin 31.7 pg (27.0-33.0); Mean Corpuscular Volume 90.6 fL (80.0-98.0); Mean Platelet Volume 10.1 fL (9.4-12.3); Platelet Count 331 X10*3/uL (160-400); Red Cell Distribution Width 15.7 % (11.0-16.0); White Blood Count 10.6 X10*3/uL (4.8-10.8)
[2022-04-24 07:18] LABS: Anion Gap 14 (12-20); Blood Urea Nitrogen 33 mg/dL (9-16); Calcium 8.3 mg/dL (8.4-10.2); Carbon Dioxide 27 mmol/L (22-29); Chloride 98 mmol/L (96-108); Creatinine Clr Calc Pharmacy 41.9; Estimated Glomerular Filt Rate 27; Glucose Fasting 169 mg/dL (60-99); Potassium 3.5 mmol/L (3.3-5.1); Sodium 135 mmol/L (135-145)
[2022-04-24 07:33] VITALS: BP 149/81; PULSE 67; RESP 20; TEMP 36.3; O2SAT 97
[2022-04-24 07:39] LABS: Glucose, Whole Blood 178 mg/dL (60-115)
[2022-04-24] MEDS: Insulin Lispro 100 UNIT/ML 3 ML VIAL SUBCUT ×6 (08:50→21:10)
[2022-04-24] MEDS: Nicotine 14 MG PATCH.TD24 TRANSDERMA (08:51)
[2022-04-24] MEDS: NIFEdipine ER 90 MG TAB.ER.24 PO (08:52)
[2022-04-24] MEDS: Aspirin Enteric Coated 81 MG TABLET.DR PO (08:52)
[2022-04-24] MEDS: carvediloL 25 MG TABLET 50 MG PO ×2 (08:52→21:08)
[2022-04-24] MEDS: Spironolactone 25 MG TABLET 100 MG PO (08:52)
[2022-04-24] MEDS: Furosemide 40 MG/4 ML VIAL IVPUSH ×2 (08:53→17:35)
[2022-04-24] MEDS: 0.9 % Sodium Chloride Flush 3 ML SYRINGE IVFLUSH ×3 (08:54→21:12)
--- NOTE | 2022-04-24 10:53 | PM.CNCAR ---
History of Present Illness History of Present Illness Date of Service: 04/24/22 Requesting physician: Zachary Ascencio Consult reason: congestive heart failure Chief complaint: Dyspnea Narrative: I was consulted to see Angela in cardiology consultation today for management of congestive heart failure. She is a 42-year-old woman with prior history of hypertensive heart disease with systolic heart failure, has switched her care to Dr Causey at [facility] to be in [facility] with her dish cloth inspector. She is difficult control blood pressure for many years and has hypertensive heart disease with significant LVH and heart failure syndrome. Patient came to the hospital progressive shortness of breath over the last month and a half. She saw her kitchen help handyman about a month ago at which time she was already having more trouble. However she continued to get progressively worse and then noted to have leg edema and also says that she felt dizzy. Blood pressure is not markedly elevated at home although elevated. She came to the hospital was noted to have markedly elevated BNP in the 4000 range. Echo done yesterday showed LV ejection fraction 40-45% with grade 3 diastolic dysfunction as well as chest x-ray finding consistent with increased interstitial marking consistent with interstitial edema. She was diuresed although unfortunately intake and output chart have not been maintained. She feels better. Review of Systems Constitutional: Constitutional: Reports no additional constitutional complaints Eyes: Eyes: Reports no additional eye complaints Cardiovascular: Cardiovascular: Denies chest pain, Reports leg edema, Reports lightheadedness, Denies Loss of Consciousness, Denies palpitations, Reports dyspnea on exertion and Reports orthopnea Respiratory: Respiratory: Reports no additional respiratory complaints and Reports dyspnea on exertion Gastrointestinal: Gastrointestinal: Reports no additional gastrointestinal complaints Genitourinary: Genitourinary: Reports no additional female genitourinary complaints Musculoskeletal: Musculoskeletal: Reports no additional musculoskeletal complaints Integumentary/Breasts: Skin/Breast: Reports system reviewed and no additional complaints, except as docu Neurologic: Reports system reviewed and no additional complaints, except as documented Psychiatric: Psychiatric: Reports no additional psychiatric complaints Endocrine: Endocrine: Reports no additional endocrine complaints and Denies palpitations PMFSH Past Medical History Medical History Anxiety Bipolar 1 disorder Cardiomyopathy CKD (chronic kidney disease) CKD (chronic kidney disease) stage 2, GFR 60-89 ml/min Diabetes mellitus Eclampsia Fatty liver H/O mixed connective tissue disease Heart block AV second degree High cholesterol History of DVT (deep vein thrombosis) HTN (hypertension) Hypersomnia Lupus Malignant hypertension Migraines Nicotine dependence, cigarettes, uncomplicated (~1999) PTSD (post-traumatic stress disorder) Rheumatoid arthritis Sjogren's disease Family History Family History Father Substance use disorder Mental health disorder Brother Substance use disorder Mental health disorder Brother Substance use disorder Mental health disorder Other Diabetes HTN (hypertension) Surgical History Surgical History History of bronchoscopy (~11/2020) History of cholecystectomy (~05/2014) History of hysterectomy Social History Social History Household Members: Children Household Members Other:: 3 Housing: House Are you a primary patient care provider to a significant other at home: No Do you presently have visiting nurse or other home services: No Alcohol intake: former Patient Tobacco Use Status: Current everyday Tobacco user Tobacco use type: Cigarette Cigarette Packs Per Day: 1 Cigarettes Per Day: 20.0 Years Smoked: 20 Smoked in Last 30 Days: Yes e-Cigarette/Vaping Use: Never Used Patient Interested in Nicotine Replacement: Yes Second Hand Smoke Exposure: No Use of substances other than those prescribed or required for medical reasons: Yes Substance Use Type: Marijuana Substance Use Frequency: Occasionally Last Used Substance: Unknown Currently Displaying Signs/Symptoms of Drug Intoxication Withdrawal: No Any prior treatment program specific to substance use: No Have you been hit, kicked, punched, or otherwise hurt by someone within the past year? If so, by whom?: No Do you feel safe in your current relationship?: No Is there a partner from a previous relationship who is making you feel unsafe now?: No Are you made to feel afraid or neglected: No Advance Directives: Yes Advance Directives on File: Yes Advance Directives Date on File: 06/03/21 Do you have thoughts of harming others: None Do you have a plan to hurt others: No Plan Recently lost weight without trying: No Eating poorly because of decreased appetite: No Nutrition Risks: No Nutritional Risk Patient : No : No Poor oral hygiene: No service: No Current occupational status: disabled Cognitive needs: No Hearing needs: No Vision needs: No Meds Allergies Allergy/AdvReac Type Severity Reaction Status Date / Time Cephalosporins Allergy Intermediate RASH ALL Verified 02/28/22 18:06 [CEPHALOSPORINS] OVER amoxicillin Allergy Unknown rash Verified 02/28/22 18:06 cefaclor [From Ceclor] Allergy Unknown RASH Verified 02/28/22 18:06 cephalexin Allergy Unknown rash Verified 02/28/22 18:06 cephradine [From VELOSEF] Allergy Unknown RASH Verified 02/28/22 18:06 Penicillins [PENICILLINS] Allergy Unknown RASH Verified 02/28/22 18:06 gabapentin [GABAPENTIN] AdvReac Unknown RESTLESS Verified 02/28/22 18:06 LEGS, Body becomes very uncomfortable Active Medications: Current Medications Acetaminophen (Acetaminophen 325 Mg Tablet) 650 mg PO Q6H PRN PRN Reason: Pain, Mild (Pain Scale 1-3) Last Admin: 04/22/22 21:01 Dose: 650 mg Acetaminophen/Butalbital/Caffeine (Butalb/Acetamin/Caff 50/325/40 Tablet) 1 tab PO Q4H PRN PRN Reason: headache Last Admin: 04/23/22 22:57 Dose: 1 tab Amitriptyline HCl (Amitriptyline Hcl 10 Mg Tablet) 10 mg PO BEDTIME [facility] Last Admin: 04/23/22 22:57 Dose: 10 mg Aspirin (Aspirin Enteric Coated 81 Mg Tablet.Dr) 81 mg PO DAILY [facility] Last Admin: 04/24/22 08:52 Dose: 81 mg Carvedilol (Carvedilol 25 Mg Tablet) 50 mg PO BID [facility]; Protocol Last Admin: 04/24/22 08:52 Dose: 50 mg Clonazepam (Clonazepam 1 Mg Tablet) 1 mg PO DAILY PRN PRN Reason: anxiety Dextrose (Dextrose 50 % 25 Gm/50 Ml Syringe) 25 gm IVPUSH Q15M PRN; Protocol PRN Reason: per Hypoglycemia Standing Ord. Enoxaparin Sodium (Enoxaparin Sodium 40 Mg/0.4 Ml Syringe) 40 mg SUBCUT Q24H [facility] Last Admin: 04/23/22 23:00 Dose: Not Given Furosemide (Furosemide 40 Mg/4 Ml Vial) 40 mg IVPUSH BID@0900,1800 [facility]; Protocol Last Admin: 04/24/22 08:53 Dose: 40 mg Glucose (Glucose Gel 15 Gm Gel..Gram.) 15 gm PO Q15M PRN; Protocol PRN Reason: per Hypoglycemia Standing Ord. Insulin Glargine (Insulin Glargine,Hum.Rec.Anlog 100 Unit/Ml 10 Ml Vial) 15 unit SUBCUT BEDTIME [facility] Last Admin: 04/23/22 22:57 Dose: 15 unit Insulin Human Lispro (Insulin Lispro 100 Unit/Ml 3 Ml Vial) 5 unit SUBCUT QIDACHS [facility] Last Admin: 04/24/22 08:50 Dose: 5 unit Insulin Human Lispro (Insulin Lispro 100 Unit/Ml 3 Ml Vial) 0 unit SUBCUT TIDAC [facility]; Protocol Last Admin: 04/24/22 08:51 Dose: 2 unit Melatonin (Melatonin 3 Mg Tablet) 6 mg PO BEDTIME PRN PRN Reason: Insomnia Nicotine (Nicotine 14 Mg Patch.Td24) 14 mg TRANSDERMA DAILY [facility] Last Admin: 04/24/22 08:51 Dose: 14 mg Nifedipine (Nifedipine Er 90 Mg Tab.Er.24) 90 mg PO DAILY [facility]; Protocol Last Admin: 04/24/22 08:52 Dose: 90 mg Ondansetron HCl (Ondansetron Hcl 4 Mg/2 Ml Vial) 4 mg IVPUSH Q8H PRN PRN Reason: Nausea and Vomiting Last Admin: 04/24/22 06:47 Dose: 4 mg Pharmacy Consult (Consult Rx Perform Med Rec) 1 each MISCELLANE ONCE PRN PRN Reason: Consult order Sodium Chloride (0.9 % Sodium Chloride Flush 3 Ml Syringe) [facility] Last Admin: 04/24/22 08:54 Dose: 3 ml Spironolactone (Spironolactone 25 Mg Tablet) 100 mg PO DAILY [facility]; Protocol Last Admin: 04/24/22 08:52 Dose: 100 mg Home Medications Medication Instructions Recorded Confirmed Last Taken Type clonazepam 1 mg tablet 1 tab PO DAILY PRN anxiety 01/27/22 04/22/22 04/21/22 History dapagliflozin 10 mg-metformin ER 1 tab PO DAILY 01/27/22 04/22/22 04/22/22 History 1,000 mg tablet,extended release 24hr (Xigduo XR) amitriptyline 10 mg tablet 10 mg PO BEDTIME 03/20/22 04/22/22 04/21/22 History carvedilol 25 mg tablet 50 mg PO BID 03/20/22 04/22/22 04/22/22 History lisinopril 10 mg tablet 20 mg PO BID 03/20/22 04/22/22 04/22/22 History spironolactone 100 mg tablet 100 mg PO DAILY 04/02/22 04/22/22 04/22/22 History dulaglutide 0.75 mg/0.5 mL 1.5 mg subcut WE 04/22/22 04/22/22 04/16/22 History subcutaneous pen injector (Trulicity) nicotine 14 mg/24 hr daily 1 patch topical DAILY 04/22/22 04/22/22 04/22/22 History transdermal patch nifedipine 90 mg tablet,extended 1 tab PO DAILY 04/22/22 04/22/22 04/22/22 History release 24 hr Physical Exam Vital Signs: Vital Signs: Last Vital Signs Temp 97.4 F 04/24/22 07:33 Pulse 67 04/24/22 07:33 Resp 20 04/24/22 07:33 BP 149/81 H 04/24/22 07:33 Pulse Ox 97 04/24/22 07:33 O2 Del Method 04/24/22 07:33 O2 Flow Rate 6 04/24/22 04:00 BMI result Body Mass Index 29.7 Const: General: cooperative, comfortable, no acute distress, alert and awake Nutritional Appearance: overweight Orientation/consciousness: patient oriented x3 Limitations: no limitations HEENT: Head: Yes normocephalic and Yes atraumatic Neck: Neck: Yes trachea midline, Yes supple and Yes JVD Resp: Effort & Inspection: normal respiratory effort Auscultation: clear to auscultation bilaterally Cardio: Jugular venous distension: JVD Palpation: abnormal PMI displaced PMI Rate: regular rate Rhythm: regular rhythm Heart sounds: S1 normal heart sound present, S2 normal heart sound present, no click, Gallop heart sound present S4 gallop, no murmurs and no rubs GI: Auscultation: normal bowel sounds Skin: General skin exam: no rashes or lesions noted Neuro: General: patient oriented x3 and no focal motor deficits Extrem: General: Yes no clubbing, cyanosis or edema Objective Labs and Meds 04/24/22 05:53 04/24/22 05:53 Lab results: Laboratory Results - last 24 hr 04/23/22 04/23/22 04/23/22 11:31 16:27 21:57 WBC RBC Hgb Hct MCV MCH MCHC RDW Plt Count MPV Absolute Nucleated RBC Nucleated RBC % (auto) Sodium Potassium Chloride Carbon Dioxide Anion Gap BUN Creatinine Estim Creat Clear Calc Estimated GFR POC Glucose 402 H* 212 H 191 H Fasting Glucose Calcium 04/24/22 04/24/22 04/24/22 05:53 05:53 07:36 WBC 10.6 RBC 3.50 L Hgb 11.1 L Hct 31.7 L MCV 90.6 MCH 31.7 MCHC 35.0 RDW 15.7 Plt Count 331 MPV 10.1 Absolute Nucleated RBC 0.000 Nucleated RBC % (auto) 0.0 Sodium 135 Potassium 3.5 Chloride 98 Carbon Dioxide 27 Anion Gap 14 BUN 33 H Creatinine 2.01 H Estim Creat Clear Calc 41.9 Estimated GFR 27 POC Glucose 178 H Fasting Glucose 169 H Calcium 8.3 L Assessment and Plan (1) Acute exacerbation of CHF (congestive heart failure): Status: Acute Decompensated systolic heart failure in this young woman with poorly controlled blood pressure for many years with hypertensive heart disease moderate LVH and advanced diastolic dysfunction. Blood pressure remains uncontrolled at this point time. Clinically much better volume status goodrich although I did not see a yesterday. Unfortunately intake and output chart also have not been maintained. Would add Jardiance 10 mg to regimen. Continue 1 more day of IV Lasix diuresis. Strict intake and output chart needs to be pursued. Follow-up BMP and BNP tomorrow. Switch lisinopril to Diovan 160 mg b.i.d. with eventual plan to switch her to Entresto therapy as outpatient. Continue Aldactone, carvedilol as well as nifedipine therapy. She is also on outpatient closely followed by Nephrology group. Continue CPAP therapy. May benefit outpatient with cardiac rehab therapy. Will continue to follow with her. Thank you for allowing us to partake in her care Time Spent With Patient Time: Total time managing care of this patient today ____ minutes. Procedures Date of Service Date of Service: 04/24/22
[2022-04-24 11:09] VITALS: BP 145/92; PULSE 71; RESP 20; TEMP 36.8; O2SAT 98
[2022-04-24 11:29] LABS: Glucose, Whole Blood 139 mg/dL (60-115)
[2022-04-24] MEDS: Valsartan 160 MG TABLET PO ×2 (11:38→21:08)
[2022-04-24] MEDS: Empagliflozin 10 MG TABLET PO (11:38)
--- NOTE | 2022-04-24 11:39 | HO.PM.IMPN ---
Subjective Subjective Date of Service: 04/24/22 Interval History: cc: sob interval history:ongoing sob, chest pressure Physical Exam Vital Signs: Vital Signs: Last Vital Signs Temp 98.2 F 04/24/22 11:09 Pulse 71 04/24/22 11:09 Resp 20 04/24/22 11:09 BP 145/92 H 04/24/22 11:09 Pulse Ox 98 04/24/22 11:09 O2 Del Method 04/24/22 11:09 O2 Flow Rate 6 04/24/22 04:00 BMI result Body Mass Index 29.7 Const: General: cooperative, comfortable, no acute distress, alert and awake Nutritional Appearance: overweight Orientation/consciousness: patient oriented x3 Limitations: no limitations HEENT: Head: Yes normocephalic and Yes atraumatic Neck: Neck: Yes trachea midline, Yes supple and Yes JVD Resp: Effort & Inspection: normal respiratory effort Auscultation: clear to auscultation bilaterally Cardio: Jugular venous distension: JVD Palpation: abnormal PMI displaced PMI Rate: regular rate Rhythm: regular rhythm Heart sounds: S1 normal heart sound present, S2 normal heart sound present, no click, Gallop heart sound present S4 gallop, no murmurs and no rubs GI: Auscultation: normal bowel sounds Skin: General skin exam: no rashes or lesions noted Neuro: General: patient oriented x3 and no focal motor deficits Extrem: General: Yes no clubbing, cyanosis or edema Objective Data Active Medications Acetaminophen (Acetaminophen 325 Mg Tablet) 650 mg PO Q6H PRN PRN Reason: Pain, Mild (Pain Scale 1-3) Last Admin: 04/22/22 21:01 Dose: 650 mg Documented By: FÁTIMA-ANTONIETAICL Acetaminophen/Butalbital/Caffeine (Butalb/Acetamin/Caff 50/325/40 Tablet) 1 tab PO Q4H PRN PRN Reason: headache Last Admin: 04/23/22 22:57 Dose: 1 tab Documented By: DAQUAN Amitriptyline HCl (Amitriptyline Hcl 10 Mg Tablet) 10 mg PO BEDTIME [facility] Last Admin: 04/23/22 22:57 Dose: 10 mg Documented By: DAQUAN Aspirin (Aspirin Enteric Coated 81 Mg Tablet.) 81 mg PO DAILY [facility] Last Admin: 04/24/22 08:52 Dose: 81 mg Documented By: GISSEL Carvedilol (Carvedilol 25 Mg Tablet) 50 mg PO BID [facility]; Protocol Last Admin: 04/24/22 08:52 Dose: 50 mg Documented By: GISSEL Clonazepam (Clonazepam 1 Mg Tablet) 1 mg PO DAILY PRN PRN Reason: anxiety Dextrose (Dextrose 50 % 25 Gm/50 Ml Syringe) 25 gm IVPUSH Q15M PRN; Protocol PRN Reason: per Hypoglycemia Standing Ord. Empagliflozin (Empagliflozin 10 Mg Tablet) 10 mg PO DAILY [facility] Last Admin: 04/24/22 11:38 Dose: 10 mg Documented By: GISSEL Enoxaparin Sodium (Enoxaparin Sodium 40 Mg/0.4 Ml Syringe) 40 mg SUBCUT Q24H [facility] Last Admin: 04/23/22 23:00 Dose: Not Given Documented By: DAQUAN Non-Admin Reason: Patient Refused Furosemide (Furosemide 40 Mg/4 Ml Vial) 40 mg IVPUSH BID@0900,1800 [facility]; Protocol Last Admin: 04/24/22 08:53 Dose: 40 mg Documented By: GISSEL Glucose (Glucose Gel 15 Gm Gel..Gram.) 15 gm PO Q15M PRN; Protocol PRN Reason: per Hypoglycemia Standing Ord. Insulin Glargine (Insulin Glargine,Hum.Rec.Anlog 100 Unit/Ml 10 Ml Vial) 15 unit SUBCUT BEDTIME [facility] Last Admin: 04/23/22 22:57 Dose: 15 unit Documented By: DAQUAN Insulin Human Lispro (Insulin Lispro 100 Unit/Ml 3 Ml Vial) 5 unit SUBCUT QIDACHS [facility] Last Admin: 04/24/22 08:50 Dose: 5 unit Documented By: GISSEL Insulin Human Lispro (Insulin Lispro 100 Unit/Ml 3 Ml Vial) 0 unit SUBCUT TIDAC [facility]; Protocol Last Admin: 04/24/22 11:30 Dose: Not Given Documented By: GISSEL Non-Admin Reason: No Insulin Coverage Melatonin (Melatonin 3 Mg Tablet) 6 mg PO BEDTIME PRN PRN Reason: Insomnia Nicotine (Nicotine 14 Mg Patch.Td24) 14 mg TRANSDERMA DAILY [facility] Last Admin: 04/24/22 08:51 Dose: 14 mg Documented By: GISSEL Nifedipine (Nifedipine Er 90 Mg Tab.Er.24) 90 mg PO DAILY [facility]; Protocol Last Admin: 04/24/22 08:52 Dose: 90 mg Documented By: GISSEL Ondansetron HCl (Ondansetron Hcl 4 Mg/2 Ml Vial) 4 mg IVPUSH Q8H PRN PRN Reason: Nausea and Vomiting Last Admin: 04/24/22 06:47 Dose: 4 mg Documented By: DAQUAN Pharmacy Consult (Consult Rx Perform Med Rec) 1 each MISCELLANE ONCE PRN PRN Reason: Consult order Sodium Chloride (0.9 % Sodium Chloride Flush 3 Ml Syringe) [address] [facility] Last Admin: 04/24/22 08:54 Dose: 3 ml Documented By: GISSEL Spironolactone (Spironolactone 25 Mg Tablet) 100 mg PO DAILY [facility]; Protocol Last Admin: 04/24/22 08:52 Dose: 100 mg Documented By: GISSEL Valsartan (Valsartan 160 Mg Tablet) 160 mg PO BID [facility]; Protocol Last Admin: 04/24/22 11:38 Dose: 160 mg Documented By: GISSEL Labs 04/24/22 05:53 04/24/22 05:53 Labs: Laboratory Results - last 24 hr 04/23/22 04/23/22 04/23/22 11:31 16:27 21:57 MCV MCH MCHC RDW Plt Count MPV Absolute Nucleated RBC Nucleated RBC % (auto) Anion Gap Estim Creat Clear Calc Estimated GFR POC Glucose 402 H* 212 H 191 H Fasting Glucose Calcium 04/24/22 04/24/22 04/24/22 05:53 05:53 07:36 MCV 90.6 MCH 31.7 MCHC 35.0 RDW 15.7 Plt Count 331 MPV 10.1 Absolute Nucleated RBC 0.000 Nucleated RBC % (auto) 0.0 Anion Gap 14 Estim Creat Clear Calc 41.9 Estimated GFR 27 POC Glucose 178 H Fasting Glucose 169 H Calcium 8.3 L 04/24/22 11:25 MCV MCH MCHC RDW Plt Count MPV Absolute Nucleated RBC Nucleated RBC % (auto) Anion Gap Estim Creat Clear Calc Estimated GFR POC Glucose 139 H Fasting Glucose Calcium Microbiology Microbiology Results: Microbiology 01/17/23 00:00 Urine Culture - Final Urine clean catch - Urine skelton top Assessment and Plan (1) Uncontrolled hypertension: Status: Acute (2) CKD (chronic kidney disease): Status: Inactive Plan 42-year-old female with pertinent history of combined systolic and diastolic heart failure, [id number] diabetes mellitus, mood disorder, essential hypertension, chronic kidney disease III who presented to the emergency department for evaluation of dyspnea. dyspnea acute on chronic chf with reduced EF + hypertensive urgency iv lasix, coreg, aldactone, nifedipine troponin flat cardio appreciated, add valsartan and jardiance tele monitor doubt uti dced abx MAYURI on CKD III improving with diuresis, monitor DM2 with hyperglycemia basal bolus insulin with correction, monitor pocs Bipolar disorder elavil, klonipin DVT prophylaxis:? Lovenox 40 mg daily Full code reason for continued hospitalization:iv diuresis Time Spent With Patient Time: Total time managing care of this patient today ____ minutes. Quality Stroke Does the patient have a stroke diagnosis?: No VTE Prior VTE?: No VTE Risk Level:: Medical - moderate - high VTE Device Contraindication: Treatment Not Indicated VTE Drug Contraindication: N/A - Med Ordered
[2022-04-24] MEDS: clonazePAM 1 MG TABLET PO (12:17)
[2022-04-24 15:47] LABS: Glucose, Whole Blood 239 mg/dL (60-115)
[2022-04-24 15:48] VITALS: BP 160/84; PULSE 71; RESP 19; TEMP 36.2; O2SAT 91
[2022-04-24 20:00] VITALS: BP 183/94; PULSE 82; RESP 18; TEMP 36.4; O2SAT 96
[2022-04-24 20:01] LABS: Glucose, Whole Blood 388 mg/dL (60-115)
[2022-04-24] MEDS: Amitriptyline HCl 10 MG TABLET PO (21:08)
[2022-04-24] MEDS: Insulin Glargine,Hum.rec.anlog 100 UNIT/ML 10 ML VIAL 15 UNIT SUBCUT (21:11)
[2022-04-24 23:20] VITALS: BP 161/91; PULSE 77; RESP 20; TEMP 37.2; O2SAT 94
[2022-04-25 03:29] VITALS: BP 165/89; PULSE 70; RESP 18; TEMP 36.1; O2SAT 95
[2022-04-25 05:46] LABS: Hematocrit 32.7 % (37.0-47.0); Hemoglobin 11.1 g/dl (12.0-16.0); Mean Corpuscular HGB Conc 33.9 g/dl (31.0-35.0); Mean Corpuscular Volume 94.2 fL (80.0-98.0); Mean Platelet Volume 9.3 fL (9.4-12.3); Platelet Count 328 X10*3/uL (160-400); Red Blood Count 3.47 X10*6/uL (4.20-5.50); Red Cell Distribution Width 15.9 % (11.0-16.0); White Blood Count 9.9 X10*3/uL (4.8-10.8)
[2022-04-25 06:24] LABS: Anion Gap 15 (12-20); Blood Urea Nitrogen 36 mg/dL (9-16); Calcium 8.2 mg/dL (8.4-10.2); Carbon Dioxide 26 mmol/L (22-29); Chloride 99 mmol/L (96-108); Creatinine Clr Calc Pharmacy 35.4; Estimated Glomerular Filt Rate 23; Glucose Fasting 179 mg/dL (60-99); Magnesium 1.7 mg/dL (1.6-2.6); Potassium 3.5 mmol/L (3.3-5.1); Sodium 136 mmol/L (135-145)
[2022-04-25 06:49] LABS: B Type Natriuretic Peptide 635 pg/mL (<100)
[2022-04-25 07:37] LABS: Glucose, Whole Blood 148 mg/dL (60-115)
[2022-04-25 07:51] VITALS: BP 178/105; PULSE 68; RESP 20; TEMP 36.6; O2SAT 97
--- NOTE | 2022-04-25 09:01 | PM.DS ---
DS: Providers Provider Date of Service: 04/25/22 Date of admission: 04/22/22 19:05 Primary care physician: TWILA Benitez Consults: 04/23/22 11:55 Consult to Cardiology Routine Consulting Provider: James Abraham Reason for consultation: sob, chf DS: Diagnosis Discharge Diagnosis (1) Uncontrolled hypertension: Status: Acute (2) CKD (chronic kidney disease): Status: Inactive DS: Summary Hospital Course Hospital Course: from initial hpi: Chief Complaint: Dyspnea This is a 42-year-old female with pertinent history of combined systolic and diastolic heart failure, tim-vxutdnu-elzksuwys diabetes mellitus, mood disorder, essential hypertension, chronic kidney disease who presents to the emergency department for evaluation of dyspnea.? Patient states she has been having dyspnea, worse with exertion that has been progressive and constant.? It started about 3 days prior to presentation.? Patient also noticed bilateral lower extremity leg swelling. Admits orthopnea and PND.? She states she has been compliant with home medications.? Patient denies fever, chills, cough, palpitations, abdominal pain, changes in bowel habits.? Admits urinary frequency and hesitancy.? No dysuria.? Patient states she has been having runny nose and watering of eyes over the last 2-3 days In the emergency department, BNP was significantly elevated and patient was treated with 1 dose of IV Lasix.? Also blood pressure was elevated at the time of initial ER visit hospital course: Patient was admitted for acute on chronic CHF with reduced ejection fraction and hypertensive urgency. She is sure with IV Lasix, carvedilol, Bactrim, nifedipine. She was seen by Cardiology who added valsartan and jardiance. Patient diuresed well and shortness of breath resolved. Her echocardiogram showed stable EF of 40-45% with grade 2 diastolic dysfunction. Initially there was concern over urinary tract infection, however patient denied any symptoms and antibiotics were discontinued. For acute kidney injury on CKD 3, has improved with diuresis and patient should continue follow closely with Nephrology. For diabetes with hyperglycemia she was treated with basal bolus insulin. For bipolar disorder she was continued on Elavil and Klonopin. Patient is feeling better will be discharged home. Time Spent with Patient Time attestation: Total time managing care of this patient today ____ minutes. Discharge coordination time: Greater than 30 minutes Quality: Safe Use of Opioids Does Pt have an Active Cancer Diagnosis on the Problem List?: No Quality: Stroke Does the patient have a stroke diagnosis?: No Physical Exam Vital Signs: Vital Signs: Last Vital Signs Temp 98 F 04/25/22 07:51 Pulse 68 04/25/22 07:51 Resp 20 04/25/22 07:51 BP 178/105 H 04/25/22 07:51 Pulse Ox 97 04/25/22 07:51 O2 Del Method 04/25/22 07:51 O2 Flow Rate 6 04/24/22 04:00 BMI result Body Mass Index 29.7 General: AO X 3, no acute distress Resp: CTA bilateral, no accessory muscles used CVS: S1,S2,RRR GI: soft, non tender, non distended Neuro: motor grossly intact, alert Psych: appropriate affect, appropriate insight DS: Data Data Completed and Pending Completed studies during hospitalization [Text1]: Procedures Drainage of Left Knee Joint, Percutaneous Approach (01/07/21) Labs on day of discharge: Laboratory Results - last 24 hr 04/24/22 04/24/22 04/24/22 11:25 15:33 19:50 WBC RBC Hgb Hct MCV MCH MCHC RDW Plt Count MPV Absolute Nucleated RBC Nucleated RBC % (auto) Sodium Potassium Chloride Carbon Dioxide Anion Gap BUN Creatinine Estim Creat Clear Calc Estimated GFR POC Glucose 139 H 239 H 388 H* Fasting Glucose Calcium Magnesium B-Natriuretic Peptide 04/25/22 04/25/22 04/25/22 05:28 05:28 05:29 WBC 9.9 RBC 3.47 L Hgb 11.1 L Hct 32.7 L MCV 94.2 MCH 32.0 MCHC 33.9 RDW 15.9 Plt Count 328 MPV 9.3 L Absolute Nucleated RBC 0.000 Nucleated RBC % (auto) 0.0 Sodium 136 Potassium 3.5 Chloride 99 Carbon Dioxide 26 Anion Gap 15 BUN 36 H Creatinine 2.38 H Estim Creat Clear Calc 35.4 Estimated GFR 23 POC Glucose Fasting Glucose 179 H Calcium 8.2 L Magnesium 1.7 B-Natriuretic Peptide 635 H 04/25/22 07:32 WBC RBC Hgb Hct MCV MCH MCHC RDW Plt Count MPV Absolute Nucleated RBC Nucleated RBC % (auto) Sodium Potassium Chloride Carbon Dioxide Anion Gap BUN Creatinine Estim Creat Clear Calc Estimated GFR POC Glucose 148 H Fasting Glucose Calcium Magnesium B-Natriuretic Peptide Discharge Plan Discharge Anticipated Discharge Date/Time: 04/25/22 08:55 Patient Disposition: Home, Self-Care Discharge Diagnosis: chf Referrals: Mauricio Nolasco FNP- [Primary Care Provider] - 1 Week Discharge Medications: New valsartan 160 mg Tablet 160 mg PO BID Qty: 60 0RF Protocol: Hold for SBP< HOLD for SBP < : 90 Jardiance 10 mg Tablet 10 mg PO DAILY Qty: 30 0RF furosemide [Lasix] 40 mg tablet 40 mg PO DAILY Qty: 30 0RF Continued albuterol sulfate 90 mcg/actuation HFA aerosol inhaler 1 inh inhalation QID PRN (Reason: Wheezing) 30 Days Qty: 8.5 1RF aspirin 81 mg tablet,delayed release (DR/EC) 81 mg PO DAILY 90 Days Qty: 90 1RF (DME) blood-glucose meter [FreeStyle Lite Meter] Kit See Rx Instructions .Route Qty: 1 0RF Rx Instructions: As directed tests 4 X/day (DME) FreeStyle Lite Strips Strip See Rx Instructions .Route Qty: 100 5RF Rx Instructions: As directed- tests 4X/day (DME) lancets [FreeStyle Lancets] 28 gauge misc See Rx Instructions .Route Qty: 100 4RF Rx Instructions: As directed- tests 4X/day (DME) blood pressure test kit-large Kit See Rx Instructions .Route Qty: 1 0RF Rx Instructions: daily use clonazepam 1 mg tablet 1 tab PO DAILY PRN (Reason: anxiety) Xigduo XR 10-1,000 mg tablet, IR - ER, biphasic 24hr 1 tab PO DAILY carvedilol 25 mg tablet 50 mg PO BID amitriptyline 10 mg tablet 10 mg PO BEDTIME nicotine 14 mg/24 hr patch 24 hour 1 patch topical DAILY nifedipine 90 mg tablet extended release 24hr 1 tab PO DAILY Trulicity 0.75 mg/0.5 mL pen injector 1.5 mg subcut WE spironolactone 100 mg tablet 100 mg PO DAILY Discontinued lisinopril 10 mg tablet 20 mg PO BID Discharge Orders: Discharge Order (Routine); Ordered 04/25/22 Ordered By: Zachary Ascencio Diet: Advance to usual diet Activity on Discharge: As tolerated Stand Alone Forms: Patient Portal Discharge page Care Plan Goals: maange chf, htn, ckd Health Concerns: chf, htn, ckd Plan of Treatment: med changes as above, check labs early next week, follow up with nephro, cardio, and pcp Assessment: see above
--- NOTE | 2022-04-25 09:12 | MHC.CM.PN ---
Patient has been medically cleared for dc to home today, self care. CM met with Patient at bedside and addressed IMM with her (original was given to Patient and a copy has been placed on the chart). Patient is pleased to be going home today.
[2022-04-25] MEDS: carvediloL 25 MG TABLET 50 MG PO (09:40)
[2022-04-25] MEDS: Insulin Lispro 100 UNIT/ML 3 ML VIAL SUBCUT (09:40)
[2022-04-25] MEDS: Valsartan 160 MG TABLET PO (09:41)
[2022-04-25] MEDS: Empagliflozin 10 MG TABLET PO (09:41)
[2022-04-25] MEDS: Spironolactone 25 MG TABLET 100 MG PO (09:41)
[2022-04-25] MEDS: 0.9 % Sodium Chloride Flush 3 ML SYRINGE IVFLUSH (09:42)
[2022-04-25] MEDS: Nicotine 14 MG PATCH.TD24 TRANSDERMA (09:42)
[2022-04-25] MEDS: NIFEdipine ER 90 MG TAB.ER.24 PO (09:42)
[2022-04-25] MEDS: Aspirin Enteric Coated 81 MG TABLET.DR PO (09:49)
--- NOTE | 2022-04-25 10:46 | P.PNCA_ITS ---
Subjective Subjective Date of Service: 04/25/22 Principal diagnosis: Decompensated congestive heart failure Interval history: Patient says that she feels very well today. Blood pressure still remains uncontrolled. Adamant on wanting to go home due to social issues. Medicines was started yesterday. Review of Systems Review of Systems Yes all other systems are reviewed and are negative Physical Exam Vital Signs: Last Vital Signs Temp 98 F 04/25/22 07:51 Pulse 68 04/25/22 07:51 Resp 20 04/25/22 07:51 BP 178/105 H 04/25/22 07:51 Pulse Ox 97 04/25/22 07:51 O2 Del Method 04/25/22 07:51 O2 Flow Rate 6 04/24/22 04:00 BMI result Body Mass Index 29.7 Const General: cooperative, comfortable, alert and awake Nutritional Appearance: overweight Orientation/consciousness: patient oriented x3 Limitations: no limitations Neck Neck: Yes trachea midline, Yes supple and Yes no JVD Resp Effort & Inspection: normal respiratory effort Auscultation: clear to auscultation bilaterally Cardio Jugular venous distension: no JVD Palpation: normal PMI Rate: regular rate Rhythm: regular rhythm Heart sounds: S1 normal heart sound present, S2 normal heart sound present, no click, no gallops and no murmurs GI Auscultation: normal bowel sounds Skin General skin exam: no rashes or lesions noted Neuro General: patient oriented x3 and no focal motor deficits Objective Labs and Meds 04/25/22 05:28 04/25/22 05:28 Lab results: Laboratory Results - last 24 hr 04/24/22 04/24/22 04/24/22 11:25 15:33 19:50 WBC RBC Hgb Hct MCV MCH MCHC RDW Plt Count MPV Absolute Nucleated RBC Nucleated RBC % (auto) Sodium Potassium Chloride Carbon Dioxide Anion Gap BUN Creatinine Estim Creat Clear Calc Estimated GFR POC Glucose 139 H 239 H 388 H* Fasting Glucose Calcium Magnesium B-Natriuretic Peptide 04/25/22 04/25/22 04/25/22 05:28 05:28 05:29 WBC 9.9 RBC 3.47 L Hgb 11.1 L Hct 32.7 L MCV 94.2 MCH 32.0 MCHC 33.9 RDW 15.9 Plt Count 328 MPV 9.3 L Absolute Nucleated RBC 0.000 Nucleated RBC % (auto) 0.0 Sodium 136 Potassium 3.5 Chloride 99 Carbon Dioxide 26 Anion Gap 15 BUN 36 H Creatinine 2.38 H Estim Creat Clear Calc 35.4 Estimated GFR 23 POC Glucose Fasting Glucose 179 H Calcium 8.2 L Magnesium 1.7 B-Natriuretic Peptide 635 H 04/25/22 07:32 WBC RBC Hgb Hct MCV MCH MCHC RDW Plt Count MPV Absolute Nucleated RBC Nucleated RBC % (auto) Sodium Potassium Chloride Carbon Dioxide Anion Gap BUN Creatinine Estim Creat Clear Calc Estimated GFR POC Glucose 148 H Fasting Glucose Calcium Magnesium B-Natriuretic Peptide Progress Note: A&P Assessment and plan (1) Acute exacerbation of CHF (congestive heart failure): Status: Acute Assessment and Plan: Decompensated heart failure due to systolic dysfunction related to hypertensive heart disease with advanced diastolic dysfunction this young will with uncon trolled blood pressure and advanced kidney disease as well. She has long-term outcome which is limited and poor. Needs aggressive treatment of follow-up as outpatient. Clinically today appears to be euvolemic and well compensated. BNP is down trended nicely. Continue p.o. Lasix. Continue Aldactone, Coreg and Diovan. Kidney functions remain stable can consider switching to Entresto therapy as outpatient. Heart failure education to be provided to the patient. Importance of good blood pressure control was discussed. Will sign of the case. Thank you for allowing us to partake in the care Time Spent With Patient Time: Total time managing care of this patient today ____ minutes. Progress Note: Quality Stroke Does the patient have a stroke diagnosis?: No Procedures Date of Service Date of Service: 04/25/22
== END 2022-04-25 10:34 | disposition home or self-care (01) | DRG 291 ==
LOC: HO.ED 18:01 → HO.EDOVER 19:10 → HO.IMC 04-23 08:31
PROVIDERS: Nurse Practitioner Family; Admitting Provider Student in an Organized Health Care Education/Training Program; Emergency Provider Emergency Medicine; PCP Nurse Practitioner Family; Visit Provider Internal Medicine
DX: I13.0 Hypertensive heart and chronic kidney disease with heart failure and stage 1 through stage 4 chronic kidney disease, or unspecified chronic kidney disease (principal); I50.43 Acute on chronic combined systolic (congestive) and diastolic (congestive) heart failure; I16.1 Hypertensive emergency; N17.9 Acute kidney failure, unspecified; N18.30 Chronic kidney disease, stage 3 unspecified; R06.03 Acute respiratory distress; E11.65 Type 2 diabetes mellitus with hyperglycemia; F31.9 Bipolar disorder, unspecified; E78.00 Pure hypercholesterolemia, unspecified; M32.9 Systemic lupus erythematosus, unspecified; F43.10 Post-traumatic stress disorder, unspecified; M06.9 Rheumatoid arthritis, unspecified; M35.00 Sjogren syndrome, unspecified; F17.210 Nicotine dependence, cigarettes, uncomplicated; E11.22 Type 2 diabetes mellitus with diabetic chronic kidney disease; K76.0 Fatty (change of) liver, not elsewhere classified; Z71.6 Tobacco abuse counseling; Z20.822 Contact with and (suspected) exposure to COVID-19; Z88.0 Allergy status to penicillin; Z88.1 Allergy status to other antibiotic agents; Z88.8 Allergy status to other drugs, medicaments and biological substances; Z79.82 Long term (current) use of aspirin; Z79.899 Other long term (current) drug therapy
CPT/HCPCS: 0241U; 36415; 71045; 80048; 80053; 81001; 82803; 82947; 83735; 83880; 84484; 85025; 85027; 87086; 93005; 93306; 96374; 99284; 99285; J1940; J1956; J2405; Q9957

== ENCOUNTER 2022-05-28 12:45 | Observation (INO) | payer MEDICARE, MEDICAID, SELFPAY ==
[2021-09-27 11:09] VITALS: BP 190/120; BMI 29.0
--- NOTE | 2022-05-28 | ECG_ITS ---
Test Reason : near syncope Blood Pressure : / mmHG Vent. Rate : 058 BPM Atrial Rate : 058 BPM P-R Int : 160 ms QRS Dur : 096 ms QT Int : 488 ms P-R-T Axes : 039 003 168 degrees QTc Int : 479 ms Sinus bradycardia Possible Left atrial enlargement Left ventricular hypertrophy with repolarization abnormality ( R in aVL , Sokolow-Abarca , Omar product , Romhilt-Peres ) Abnormal ECG When compared with ECG of 23-APR-2022 12:16, No significant change was found Referred By: Generic ED Physician Electronically Signed By:MANJEET DUVALL
--- NOTE | ~2022-05-28 | XR_ITS ---
EXAMINATION: XR CHEST CLINICAL INFORMATION: Fluid overload. Difficulty breathing COMPARISON: 04/22/2022 TECHNIQUE: 2 views of the chest were obtained. FINDINGS: Lungs grossly clear. No congestive change. Heart and pulmonary vessels are normal. There is improved aeration at the lung bases since 04/22/2022. Old left-sided rib fractures are again seen. XR/XR chest 2V IMPRESSION: Unremarkable examination.
[2022-05-28 13:26] LABS: Glucose, Whole Blood 315 mg/dL (60-115)
[2022-05-28 13:33] LABS: MANUAL DIFF FLAG NO
[2022-05-28 13:34] LABS: Basophils Percent Auto 0.4 % (0-2); Eosinophils Percent Auto 0.4 % (0-4); Hematocrit 30.6 % (37.0-47.0); Imm Gran Abs Auto 0.03 X10*3/uL (0.00-0.03); Imm Gran Pct Auto 0.3 % (0.0-0.4); Lymphocytes Absolute Auto 0.7 X10*3/uL (1.2-4.9); Lymphocytes Percent Auto 7.8 % (20-40); Mean Corpuscular HGB Conc 35.9 g/dl (31.0-35.0); Mean Corpuscular Hemoglobin 31.3 pg (27.0-33.0); Mean Corpuscular Volume 87.2 fL (80.0-98.0); Mean Platelet Volume 9.2 fL (9.4-12.3); Monocytes Absolute Auto 0.6 X10*3/uL (0.1-1.2); Neutrophils Absolute Auto 7.9 x10*3/uL (2.0-8.3); Neutrophils Percent Auto 85.1 % (45-73); Platelet Count 361 X10*3/uL (160-400); Red Blood Count 3.51 X10*6/uL (4.20-5.50); Red Cell Distribution Width 15.2 % (11.0-16.0); White Blood Count 9.3 X10*3/uL (4.8-10.8)
[2022-05-28 13:37] VITALS: BP 100/60; BP 105/62; PULSE 60; RESP 18; TEMP 36.4; O2SAT 100; O2SAT 95; BMI 28.8
--- NOTE | 2022-05-28 13:46 | PC.NURSE ---
Per EMS patient received approx 800 ml of IVF [employer] [employer]
[2022-05-28 13:50] LABS: Alanine Aminotransferase 13 U/L (0-31); Albumin Level 3.3 g/dL (3.5-5.0); Alkaline Phosphatase 114 U/L (39-117); Anion Gap 12 (12-20); Aspartate Amino Transferase 20 U/L (5-31); Bilirubin Total 0.9 mg/dL (0.0-1.0); Blood Urea Nitrogen 28 mg/dL (9-16); Calcium 8.3 mg/dL (8.4-10.2); Carbon Dioxide 23 mmol/L (22-29); Chloride 103 mmol/L (96-108); Creatinine Clr Calc Pharmacy 36.4; Estimated Glomerular Filt Rate 24; Glucose Random 340 mg/dL (60-115); Sodium 134 mmol/L (135-145); Total Protein 5.8 g/dL (6.5-8.0)
[2022-05-28 13:56] LABS: B Type Natriuretic Peptide 4440 pg/mL (<100)
[2022-05-28 13:57] LABS: Troponin-I High Sensitivity 43.2 ng/L (<3.5-17.0)
--- NOTE | 2022-05-28 14:00 | ED_ITS ---
HPI - General Adult General Chief complaint: Syncope Stated complaint: Witnessed episode, low BP per EMS Time Seen by Provider: 05/28/22 13:58 Source: patient, EMS and other (patient's partner) Mode of arrival: EMS Limitations: no limitations History of Present Illness HPI narrative: Patient is a 42 year old assigned female at with a history of CHF, uncontrolled HTN, cardiomyopathy, bipolar disorder, and CKD presenting to the emergency department today after a syncopal episode. Patient states that she took her blood pressure medications, including her new medications torsamide, and 10 minutes later she felt like she was going to pass out so she called 911. Patient states that after EMS got there, she did have a brief episode of syncope. Patient states that she was just hospitalized on May 20 for a CHF exacerbation and that is when they stopped her lasix and started her torsamide. Patient denies any abdominal pain, nausea, vomiting, fever, chills, blurry vision, double vision, loss of vision, chest pain, difficulty breathing, shortness of breath, back pain, night sweats, pain with urination, increased urinary frequency, increased urinary urgency, blood in her urine or stool, recent trauma or falls, bowel incontinence, bladder incontinence, bowel retention, bladder retention, or any other complaints at this time. Onset (ago): hour(s) Severity: moderate Severity scale (1-10): 4 Relieving factors: none Exacerbating factors: none Associated symptoms: syncope Treatments prior to arrival: none Related Data Home Medications Medication Instructions Recorded Confirmed clonazepam 1 mg tablet 1 tab PO DAILY PRN anxiety 01/27/22 05/28/22 carvedilol 25 mg tablet 50 mg PO BID 03/20/22 05/28/22 spironolactone 100 mg tablet 100 mg PO DAILY 04/02/22 05/28/22 nifedipine 90 mg tablet,extended 1 tab PO DAILY 04/22/22 05/28/22 release 24 hr dapagliflozin 10 mg-metformin ER 1 tab PO DAILY 05/28/22 05/28/22 1,000 mg tablet,extended release 24hr (Xigduo XR) dulaglutide 1.5 mg/0.5 mL 1.5 mg subcut TH 05/28/22 05/28/22 subcutaneous pen injector (Trulicity) nicotine 21 mg/24 hr daily 1 patch transdermal DAILY 05/28/22 05/28/22 transdermal patch omeprazole 20 mg capsule,delayed 20 mg PO DAILY@0630 PRN Heartburn 05/28/22 05/28/22 release potassium chloride 20 mEq 1 tab PO BID 05/28/22 05/28/22 tablet,extended release torsemide 20 mg tablet 2 tab PO DAILY 05/28/22 05/28/22 Previous Rx's Medication Instructions Recorded albuterol sulfate 90 mcg/actuation 1 inh inhalation QID PRN Wheezing 02/11/22 aerosol inhaler 30 days #8.5 grams aspirin 81 mg tablet,delayed 81 mg PO DAILY 90 days #90 tabs 03/20/22 release blood sugar diagnostic (FreeStyle #100 ea 03/20/22 Lite Strips) blood-glucose meter (FreeStyle #1 ea 03/20/22 Lite Meter kit) lancets 28 gauge (FreeStyle #100 ea 03/20/22 Lancets) blood pressure test kit-large #1 ea 03/25/22 amitriptyline 10 mg tablet 20 mg PO BEDTIME 30 days #60 tabs 04/30/22 empagliflozin 10 mg tablet 10 mg PO DAILY #30 tabs 05/28/22 (Jardiance) valsartan 160 mg tablet 160 mg PO BID #60 tabs 05/28/22 Allergies Allergy/AdvReac Type Severity Reaction Status Date / Time Cephalosporins Allergy Intermediate RASH ALL Verified 04/29/22 07:41 [CEPHALOSPORINS] OVER amoxicillin Allergy Unknown rash Verified 04/29/22 07:41 cefaclor [From Ceclor] Allergy Unknown RASH Verified 04/29/22 07:41 cephalexin Allergy Unknown rash Verified 04/29/22 07:41 cephradine [From VELOSEF] Allergy Unknown RASH Verified 04/29/22 07:41 Penicillins [PENICILLINS] Allergy Unknown RASH Verified 04/29/22 07:41 gabapentin [GABAPENTIN] AdvReac Unknown RESTLESS Verified 04/29/22 07:41 LEGS, Body becomes very uncomfortable Review of Systems Constitutional: Constitutional: Reports no additional constitutional complaints, Denies chills, Denies fever(s) and Denies night sweats Eyes: Eyes: Reports no additional eye complaints, Denies blurry vision, Denies change in vision, Denies diplopia, Denies eye discharge, Denies loss of vision and Denies eye pain ENT: Denies dizziness Cardiovascular: Cardiovascular: Reports no additional cardiovascular complaints, Denies chest pain, Reports syncope, Denies lightheadedness, Denies Loss of Consciousness and Denies dyspnea Respiratory: Respiratory: Reports no additional respiratory complaints and Denies dyspnea Gastrointestinal: Gastrointestinal: Reports no additional gastrointestinal complaints, Denies abdominal pain, Denies melena, Denies hematochezia, Denies change in bowel habits and Denies change in stool character Genitourinary: Genitourinary: Denies hematuria, Denies urinary frequency, Denies dysuria, Denies urinary incontinence, Denies urinary hesitancy and Denies urinary urgency Musculoskeletal: Musculoskeletal: Reports no additional musculoskeletal complaints, Denies numbness and Denies tingling Neurologic: Denies dizziness, Reports syncope, Denies loss of vision, Denies numbness and Denies tingling Psychiatric: Psychiatric: Reports no additional psychiatric complaints Endocrine: Endocrine: Reports no additional endocrine complaints Hematologic/Lymphatic: Hematologic/Lymphatic: Reports no additional hematologic/lymphatic complaints Allergic/Immunologic: Allergic/Immunologic: Reports no additional allergic/immunologic complaints [facility] Past Medical History Attestation statement: The following information was validated with the patient. Source: old records reviewed, nursing notes reviewed and other (records from [facility]) Medical History Anxiety Bipolar 1 disorder Cardiomyopathy CKD (chronic kidney disease) CKD (chronic kidney disease) stage 2, GFR 60-89 ml/min Diabetes mellitus Eclampsia Fatty liver H/O mixed connective tissue disease Heart block AV second degree High cholesterol History of DVT (deep vein thrombosis) HTN (hypertension) Hypersomnia Lupus Malignant hypertension Migraines Nicotine dependence, cigarettes, uncomplicated (~1999) PTSD (post-traumatic stress disorder) Rheumatoid arthritis Sjogren's disease Surgical History History of bronchoscopy (~11/2020) History of cholecystectomy (~05/2014) History of hysterectomy Family History Family History Father Substance use disorder Mental health disorder Brother Substance use disorder Mental health disorder Brother Substance use disorder Mental health disorder Other Diabetes HTN (hypertension) Social History Social History Household Members: Children Household Members Other:: 3 Housing: House Are you a primary caregiver assisted living to a significant other at home: No Do you presently have visiting nurse or other home services: No Alcohol intake: former Patient Tobacco Use Status: Current everyday Tobacco user Tobacco use type: Cigarette Cigarette Packs Per Day: 0.5 Cigarettes Per Day: 10 Years Smoked: 20 Smoked in Last 30 Days: Yes e-Cigarette/Vaping Use: Never Used Second Hand Smoke Exposure: No Use of substances other than those prescribed or required for medical reasons: No Substance Use Type: Marijuana Advance Directives: Yes Advance Directives on File: Yes Advance Directives Date on File: 06/03/21 service: No Current occupational status: disabled Cognitive needs: No Hearing needs: No Vision needs: No Physical Exam ED Vital Signs: Vital Signs - 24 hr 05/28/22 13:37 05/28/22 15:10 Temperature 97.6 F Pulse Rate 60 68 Respiratory Rate 18 18 Blood Pressure 105/62 107/67 Pulse Oximetry 95 95 Oxygen Delivery Method Room Air Room Air BMI result Body Mass Index 28.8 Const General: cooperative, no acute distress, alert and awake Nutritional Appearance: well nourished Orientation/consciousness: patient oriented x3 Limitations: no limitations HENMT Head: Yes normal to inspection and Yes atraumatic Ears: hearing grossly normal bilaterally and external ears normal General nose exam: Normal external nose present, no nasal discharge noted and no epistaxis Face and sinus: Yes normal facial exam, No abrasion and No laceration Mouth: Normal oral and palatal mucosa present, no drooling and no muffled voice Eyes General: appearance normal, both eyes and all related structures Periorbital: periorbital findings normal Eyelids: Yes eyelids normal Conjunctivae: conjunctivae normal Pupils: Equal, round and reactive pupils present EOM: EOMs intact bilaterally Neck Neck: Yes normal visual inspection, Yes full ROM and Yes no lymphadenopathy Chest Chest palpation & inspection: normal inspection of the chest Resp Effort & Inspection: normal respiratory effort and able to speak in complete sentences Auscultation: crackles bilateral throughout Cardio Rate: regular rate Rhythm: regular rhythm GI Inspection: Yes normal to inspection Palpation (GI): Soft to palpation, not firm, nontender, no guarding and not rigid Neuro General: patient oriented x3 and moves all extremities Cranial nerves: Yes Equal, round and reactive pupils present Cognition (Neuro): normal cognition Motor exam (neuro): 08/08 motor strength present throughout Sensory Exam: Normal double simultaneous stimulation for sensation Coordination: [id number] test normal Extrem General: Yes full ROM and Yes capillary refill normal Right lower extremity: edema Left lower extremity: edema Psych Appearance: grossly normal Mental Status: mental status grossly normal Affect: normal affect Attitude: cooperative Thought process: Normal thought process present Thought content: Normal thought content present Insight: Good insight present (Psych) Medications Administered Generic Name Dose Route Start Last Admin Trade Name Freq PRN Reason Stop Dose Admin Enoxaparin Sodium 40 mg 05/28/22 18:00 05/28/22 17:16 Enoxaparin Sodium 40 Mg/0.4 Ml Syringe SUBCUT Not Given Q24H BRIAN Medical Decision Making Medical Decision Making [facility] Narrative: Patient is a 42 year old assigned female at with a history of CHF presenting to the emergency department today after a syncopal episode. Patient's physical exam showed a relatively dry individual. Patient's blood work showed an elevated BNP of 4440, an initial trop of 43.2 with a repeat of 41.4, and a CR of 2.28. Patient's EKG was unremarkable. Patient's chest x-ray showed no acute process. I spoke to the hospitalist team who agreed to admission. I explained my physical exam findings as well as all test results to the patient and the patient's partner. I answered all questions asked by the patient and the patient's partner. Patient and the patient's partner verbalized agreement and understanding with this treatment plan and admission. Differential Diagnosis Differential Diagnoses: The differential diagnosis associated with the presentation includes CHF Consult Healthcare Provider Management of the patient was discussed with: Hospitalist (agreed to admission) Lab Data [facility] Lab Attestation statement: I reviewed the patient's lab results. 05/28/22 13:28 05/28/22 13:28 Labs: Lab Results 05/28/22 05/28/22 05/28/22 Range/Units 13: 13:28 13:28 WBC 9.3 (4.8-10.8) X10*3/uL RBC 3.51 L (4.20-5.50) X10*6/uL Hgb 11.0 L (12.0-16.0) g/dl Hct 30.6 L (37.0-47.0) % MCV 87.2 (80.0-98.0) fL MCH 31.3 (27.0-33.0) pg MCHC 35.9 H (31.0-35.0) g/dl RDW 15.2 (11.0-16.0) % Plt Count 361 (160-400) X10*3/uL MPV 9.2 L (9.4-12.3) fL Immature Gran % (Auto) 0.3 (0.0-0.4) % Neut % (Auto) 85.1 H (45-73) % Lymph % (Auto) 7.8 L (20-40) % [place] % (Auto) 6.0 (2-11) % Eos % (Auto) 0.4 (0-4) % Baso % (Auto) 0.4 (0-2) % Lymph # (Auto) 0.7 L (1.2-4.9) X10*3/uL [place] # (Auto) 0.6 (0.1-1.2) X10*3/uL Eos # (Auto) 0.0 (0.0-0.4) X10*3/uL Baso # (Auto) 0.0 (0.0-0.2) X10*3/uL Abs Immat Gran (auto) 0.03 (0.00-0.03) X10*3/uL Absolute Neuts (auto) 7.9 (2.0-8.3) x10*3/uL Absolute Nucleated RBC 0.000 (0.0-0.012) X10*3/uL Nucleated RBC % (auto) 0.0 (0.0-0.2) /100WBC Sodium 134 L (135-145) mmol/L Potassium 4.0 (3.3-5.1) mmol/L Chloride 103 (96-108) mmol/L Carbon Dioxide 23 (22-29) mmol/L Anion Gap 12 (12-20) BUN 28 H (9-16) mg/dL Creatinine 2.28 H (0.5-1.4) mg/dL Estim Creat Clear Calc 36.4 Estimated GFR 24 POC Glucose 315 H (60-115) mg/dL Random Glucose 340 H (60-115) mg/dL Calcium 8.3 L (8.4-10.2) mg/dL Magnesium 1.9 (1.6-2.6) mg/dL Total Bilirubin 0.9 (0.0-1.0) mg/dL AST 20 (5-31) U/L ALT 13 (0-31) U/L Alkaline Phosphatase 114 (39-117) U/L Troponin I High Sens (<3.5-17.0) ng/L B-Natriuretic Peptide (<100) pg/mL Total Protein 5.8 L (6.5-8.0) g/dL Albumin 3.3 L (3.5-5.0) g/dL COVID-19 (TOM) (Negative) COVID-19 Clin Com 05/28/22 05/28/22 05/28/22 Range/Units 13:28 13:29 14:34 WBC (4.8-10.8) X10*3/uL RBC (4.20-5.50) X10*6/uL Hgb (12.0-16.0) g/dl Hct (37.0-47.0) % MCV (80.0-98.0) fL MCH (27.0-33.0) pg MCHC (31.0-35.0) g/dl RDW (11.0-16.0) % Plt Count (160-400) X10*3/uL MPV (9.4-12.3) fL Immature Gran % (Auto) (0.0-0.4) % Neut % (Auto) (45-73) % Lymph % (Auto) (20-40) % [place] % (Auto) (2-11) % Eos % (Auto) (0-4) % Baso % (Auto) (0-2) % Lymph # (Auto) (1.2-4.9) X10*3/uL [place] # (Auto) (0.1-1.2) X10*3/uL Eos # (Auto) (0.0-0.4) X10*3/uL Baso # (Auto) (0.0-0.2) X10*3/uL Abs Immat Gran (auto) (0.00-0.03) X10*3/uL Absolute Neuts (auto) (2.0-8.3) x10*3/uL Absolute Nucleated RBC (0.0-0.012) X10*3/uL Nucleated RBC % (auto) (0.0-0.2) /100WBC Sodium (135-145) mmol/L Potassium (3.3-5.1) mmol/L Chloride (96-108) mmol/L Carbon Dioxide (22-29) mmol/L Anion Gap (12-20) BUN (9-16) mg/dL Creatinine (0.5-1.4) mg/dL Estim Creat Clear Calc Estimated GFR POC Glucose (60-115) mg/dL Random Glucose (60-115) mg/dL Calcium (8.4-10.2) mg/dL Magnesium (1.6-2.6) mg/dL Total Bilirubin (0.0-1.0) mg/dL AST (5-31) U/L ALT (0-31) U/L Alkaline Phosphatase (39-117) U/L Troponin I High Sens 43.2 H (<3.5-17.0) ng/L B-Natriuretic Peptide 4440 H (<100) pg/mL Total Protein (6.5-8.0) g/dL Albumin (3.5-5.0) g/dL COVID-19 (TOM) Negative (Negative) COVID-19 Clin Com See Note 05/28/22 Range/Units 15:51 WBC (4.8-10.8) X10*3/uL RBC (4.20-5.50) X10*6/uL Hgb (12.0-16.0) g/dl Hct (37.0-47.0) % MCV (80.0-98.0) fL MCH (27.0-33.0) pg MCHC (31.0-35.0) g/dl RDW (11.0-16.0) % Plt Count (160-400) X10*3/uL MPV (9.4-12.3) fL Immature Gran % (Auto) (0.0-0.4) % Neut % (Auto) (45-73) % Lymph % (Auto) (20-40) % [place] % (Auto) (2-11) % Eos % (Auto) (0-4) % Baso % (Auto) (0-2) % Lymph # (Auto) (1.2-4.9) X10*3/uL [place] # (Auto) (0.1-1.2) X10*3/uL Eos # (Auto) (0.0-0.4) X10*3/uL Baso # (Auto) (0.0-0.2) X10*3/uL Abs Immat Gran (auto) (0.00-0.03) X10*3/uL Absolute Neuts (auto) (2.0-8.3) x10*3/uL Absolute Nucleated RBC (0.0-0.012) X10*3/uL Nucleated RBC % (auto) (0.0-0.2) /100WBC Sodium (135-145) mmol/L Potassium (3.3-5.1) mmol/L Chloride (96-108) mmol/L Carbon Dioxide (22-29) mmol/L Anion Gap (12-20) BUN (9-16) mg/dL Creatinine (0.5-1.4) mg/dL Estim Creat Clear Calc Estimated GFR POC Glucose (60-115) mg/dL Random Glucose (60-115) mg/dL Calcium (8.4-10.2) mg/dL Magnesium (1.6-2.6) mg/dL Total Bilirubin (0.0-1.0) mg/dL AST (5-31) U/L ALT (0-31) U/L Alkaline Phosphatase (39-117) U/L Troponin I High Sens 41.4 H (<3.5-17.0) ng/L B-Natriuretic Peptide (<100) pg/mL Total Protein (6.5-8.0) g/dL Albumin (3.5-5.0) g/dL COVID-19 (TOM) (Negative) COVID-19 Clin Com Independent Interpretation I performed an independent interpretation of an: EKG Interpretation: Vent. Rate: 058 BPM ? ? Atrial Rate: 058 BPM P-R Int: 160 ms? QRS Dur: 096 ms QT Int: 488 ms ? ? ? P-R-T Axes: 039 003 168 degrees QTc Int: 479 ms ? Sinus bradycardia Possible Left atrial enlargement Left ventricular hypertrophy with repolarization abnormality ( R in aVL , Sokolow-Abarca , [place] product , Romhilt-Peres) Abnormal ECG When compared with ECG of 23-APR-2022 12:16, No significant change was found Electronically Signed By:NATHANIEL DUVALL Dictated By: Nathaniel Duvall MD Signed By: Electronically signed by Nathaniel Duvall MD 05/28/22 1635 Radiology Impression Radiologist Impression: My interpretation is in agreement with the radiologist's impression of this imaging study. EXAMINATION: XR CHEST CLINICAL INFORMATION: Fluid overload. Difficulty breathing COMPARISON: 04/22/2022 TECHNIQUE: 2 views of the chest were obtained. FINDINGS: Lungs grossly clear. No congestive change. Heart and pulmonary vessels are normal. There is improved aeration at the lung bases since 04/22/2022. Old left-sided rib fractures are again seen. XR/XR chest 2V IMPRESSION: Unremarkable examination. Dictated By: Demetrius Dubose MD Signed By: Electronically signed by Demetrius Dubose MD 05/28/22 1545 Independent Historian Clinical information obtained from an independent historian. History obtained from or confirmed by: EMS and Other (partner) External Record Review External record reviewed: Other (reviewed the records from [facility] ED and admission / discharge) Critical Care Time Critical Care Time Critical Care Time: Yes Total Critical Care Time: 30 Attestation: I spent 30 minutes of Critical Care Time with this patient. This does not incl ude time spent on separately reported billable procedures. Discharge Plan Discharge Clinical Impression: Heart failure, unspecified, Cardiomyopathy Patient Disposition: Admitted As Inpatient
[2022-05-28 14:38] LABS: Magnesium 1.9 mg/dL (1.6-2.6)
[2022-05-28 15:00] LABS: COVID-19 Test Negative (Negative); IDNOW Serial# 16C4AD1C
--- NOTE | 2022-05-28 15:08 | PC.NURSE ---
Patient resting comfortably no distress noted
[2022-05-28 15:10] VITALS: BP 107/67; PULSE 68; RESP 18; O2SAT 95
[2022-05-28 16:27] LABS: Troponin-I High Sensitivity 41.4 ng/L (<3.5-17.0)
--- NOTE | 2022-05-28 16:40 | PM.IMHP ---
History of Present Illness Date of Service: 05/28/22 Attending physician on admission: Kenn Travis Chief Complaint: Syncopal episode . 42 y/o F current smoker ,history of CHF, uncontrolled HTN, cardiomyopathy, bipolar disorder, and CKD presenting to the emergency department today after a syncopal episode. Patient says that she recently was admitted to [facility]: For CHF exacerbation-as per the patient she was given torsemide there and subsequently her breathing seems to be improved, her proBNP was 57,000. Subsequently patient improved and discharged on 05/22/22. She said she was not able to fill up the torus mild until yesterday. Until then she was taking Lasix which she has at home. As per the patient today she took her blood pressure medications, including her new medications torsamide, and 10 minutes later she felt like she was going to pass out so she called 911. Patient had a episode of borderline blood pressure 90/50 as well as a brief syncopal episode in the EMS -as per patient and Ed documentation. Currently patient seems to be asymptomatic. Patient denies any abdominal pain, nausea, vomiting, fever, chills, blurry vision, double vision, loss of vision, chest pain, difficulty breathing, shortness of breath, back pain, night sweats, pain with urination, increased urinary frequency, increased urinary urgency, blood in her urine or stool, recent trauma or falls, bowel incontinence, bladder incontinence, bowel retention, bladder retention, or any other complaints at this time. Lab imaging ekg reviewed. CBC and BMP seems to be near baseline creatinine also around 2.2 near baseline. Troponin are in 40s chronically elevated. ekg: mild markus,nsr ,unchanged from before cxr neg. Review of Systems Review of Systems: As above. [facility] Medical History Anxiety Bipolar 1 disorder Cardiomyopathy CKD (chronic kidney disease) CKD (chronic kidney disease) stage 2, GFR 60-89 ml/min Diabetes mellitus Eclampsia Fatty liver H/O mixed connective tissue disease Heart block AV second degree High cholesterol History of DVT (deep vein thrombosis) HTN (hypertension) Hypersomnia Lupus Malignant hypertension Migraines Nicotine dependence, cigarettes, uncomplicated (~1999) PTSD (post-traumatic stress disorder) Rheumatoid arthritis Sjogren's disease Family History Father Substance use disorder Mental health disorder Brother Substance use disorder Mental health disorder Brother Substance use disorder Mental health disorder Other Diabetes HTN (hypertension) Surgical History History of bronchoscopy (~11/2020) History of cholecystectomy (~05/2014) History of hysterectomy Social History Household Members: Children Household Members Other:: 3 Housing: House Are you a primary care process manager to a significant other at home: No Do you presently have visiting nurse or other home services: No Alcohol intake: former Patient Tobacco Use Status: Current everyday Tobacco user Tobacco use type: Cigarette Cigarette Packs Per Day: 0.5 Cigarettes Per Day: 10 Years Smoked: 20 Smoked in Last 30 Days: Yes e-Cigarette/Vaping Use: Never Used Second Hand Smoke Exposure: No Use of substances other than those prescribed or required for medical reasons: No Substance Use Type: Marijuana Advance Directives: Yes Advance Directives on File: Yes Advance Directives Date on File: 06/03/21 service: No Current occupational status: disabled Cognitive needs: No Hearing needs: No Vision needs: No Meds Allergies Allergy/AdvReac Type Severity Reaction Status Date / Time Cephalosporins Allergy Intermediate RASH ALL Verified 04/29/22 07:41 [CEPHALOSPORINS] OVER amoxicillin Allergy Unknown rash Verified 04/29/22 07:41 cefaclor [From Ceclor] Allergy Unknown RASH Verified 04/29/22 07:41 cephalexin Allergy Unknown rash Verified 04/29/22 07:41 cephradine [From VELOSEF] Allergy Unknown RASH Verified 04/29/22 07:41 Penicillins [PENICILLINS] Allergy Unknown RASH Verified 04/29/22 07:41 gabapentin [GABAPENTIN] AdvReac Unknown RESTLESS Verified 04/29/22 07:41 LEGS, Body becomes very uncomfortable Active Medications: Current Medications Dextrose (Dextrose 50 % 25 Gm/50 Ml Syringe) 25 gm IVPUSH Q15M PRN; Protocol PRN Reason: per Hypoglycemia Standing Ord. Enoxaparin Sodium (Enoxaparin Sodium 40 Mg/0.4 Ml Syringe) 40 mg SUBCUT Q24H BRIAN Glucose (Glucose Gel 15 Gm Gel..Gram.) 15 gm PO Q15M PRN; Protocol PRN Reason: per Hypoglycemia Standing Ord. Insulin Human Lispro (Insulin Lispro 100 Unit/Ml 3 Ml Vial) 0 unit SUBCUT QIDARiri [facility]; Protocol Pharmacy Consult (Consult Rx Perform Med Rec) 1 each MISCELLANE ONCE PRN PRN Reason: Consult order Sodium Chloride (0.9 % Sodium Chloride Flush 3 Ml Syringe) [facility] Medications Medication Instructions Recorded Confirmed Last Taken Type clonazepam 1 mg tablet 1 tab PO DAILY PRN anxiety 01/27/22 04/29/22 04/21/22 History carvedilol 25 mg tablet 50 mg PO BID 03/20/22 04/29/22 04/22/22 History spironolactone 100 mg tablet 100 mg PO DAILY 04/02/22 04/29/22 04/22/22 History dulaglutide 0.75 mg/0.5 mL 1.5 mg subcut WE 04/22/22 04/29/22 04/16/22 History subcutaneous pen injector (Trulicity) nicotine 14 mg/24 hr daily 1 patch topical DAILY 04/22/22 04/29/22 04/22/22 History transdermal patch nifedipine 90 mg tablet,extended 1 tab PO DAILY 04/22/22 04/29/22 04/22/22 History release 24 hr lisinopril 10 mg tablet 2 tab PO BID 05/28/22 Unknown History potassium chloride 20 mEq 1 tab PO BID 05/28/22 Unknown History tablet,extended release torsemide 20 mg tablet 2 tab PO BID 05/28/22 Unknown History Physical Exam Vital Signs and Narrative: Vital Signs: Last Vital Signs Temp 97.6 F 05/28/22 13:37 Pulse 68 05/28/22 15:10 Resp 18 05/28/22 15:10 BP 107/67 05/28/22 15:10 Pulse Ox 95 05/28/22 15:10 O2 Del Method 05/28/22 15:10 BMI result Body Mass Index 28.8 Appearance: Alert.? Oriented X3.? not in distress.? Eyes: Pupils equal, round and reactive to light.? Sclera nonicteric.? ENT: Pharynx normal.? Moist mucous membranes. cvs: rrr, [id number] . res: clear to auscultation ,no rhonchii or wheezing abd: no rebound or guarding ,nt, bs present. ext pulses present , no cyanosis . neuro: axo3 , nonfocal. Results Labs 05/28/22 13:28 05/28/22 13:28 Labs: Laboratory Results - last 24 hr 05/28/22 05/28/22 05/28/22 13:23 13:28 13:28 MCV 87.2 MCH 31.3 MCHC 35.9 H RDW 15.2 Plt Count 361 MPV 9.2 L Immature Gran % (Auto) 0.3 Neut % (Auto) 85.1 H Lymph % (Auto) 7.8 L [place] % (Auto) 6.0 Eos % (Auto) 0.4 Baso % (Auto) 0.4 Lymph # (Auto) 0.7 L [place] # (Auto) 0.6 Eos # (Auto) 0.0 Baso # (Auto) 0.0 Abs Immat Gran (auto) 0.03 Absolute Neuts (auto) 7.9 Absolute Nucleated RBC 0.000 Nucleated RBC % (auto) 0.0 Anion Gap 12 Estim Creat Clear Calc 36.4 Estimated GFR 24 POC Glucose 315 H Random Glucose 340 H Calcium 8.3 L Magnesium 1.9 Total Bilirubin 0.9 AST 20 ALT 13 Alkaline Phosphatase 114 Troponin I High Sens B-Natriuretic Peptide Total Protein 5.8 L Albumin 3.3 L COVID-19 (TOM) COVID-19 Clin Com 05/28/22 05/28/22 05/28/22 13:28 13:29 14:34 MCV MCH MCHC RDW Plt Count MPV Immature Gran % (Auto) Neut % (Auto) Lymph % (Auto) [place] % (Auto) Eos % (Auto) Baso % (Auto) Lymph # (Auto) [place] # (Auto) Eos # (Auto) Baso # (Auto) Abs Immat Gran (auto) Absolute Neuts (auto) Absolute Nucleated RBC Nucleated RBC % (auto) Anion Gap Estim Creat Clear Calc Estimated GFR POC Glucose Random Glucose Calcium Magnesium Total Bilirubin AST ALT Alkaline Phosphatase Troponin I High Sens 43.2 H B-Natriuretic Peptide 4440 H Total Protein Albumin COVID-19 (TOM) Negative COVID-19 Clin Com See Note 05/28/22 15:51 MCV MCH MCHC RDW Plt Count MPV Immature Gran % (Auto) Neut % (Auto) Lymph % (Auto) [place] % (Auto) Eos % (Auto) Baso % (Auto) Lymph # (Auto) [place] # (Auto) Eos # (Auto) Baso # (Auto) Abs Immat Gran (auto) Absolute Neuts (auto) Absolute Nucleated RBC Nucleated RBC % (auto) Anion Gap Estim Creat Clear Calc Estimated GFR POC Glucose Random Glucose Calcium Magnesium Total Bilirubin AST ALT Alkaline Phosphatase Troponin I High Sens 41.4 H B-Natriuretic Peptide Total Protein Albumin COVID-19 (TOM) COVID-19 Clin Com Imaging Radiologist's Impressions: Impressions Chest X-Ray 05/28/22 15:27 IMPRESSION: Unremarkable examination. Assessment and Plan (1) Chronic renal insufficiency: Status: Acute (2) Syncope: Status: Acute Plan 42-year-old female with pertinent history of combined systolic and diastolic heart failure, [id number]-[id number] diabetes mellitus, mood disorder, essential hypertension, chronic kidney disease who presents to the emergency department for syncope. #.? syncope possible realted to over diuresis. Troponin flat, EKG unchanged, echo on 04/28: Conclusions: - 1. Ijwz-oa-xkdmdihg LV systolic dysfunction with LVEF of 40-45% with moderate LVH and grade 3 diastolic dysfunction? 2. Severely dilated left atrium? 3. Mild mitral regurgitation ? 4. Mildly elevated right ventricular systolic pressure with? ? ? mildly elevated right atrial pressures ? 5. Trivial pericardial effusion?? Hold diuretic and blood pressure medication for today. Monitor on tele Cardio evaluation #.? Htn: Blood pressure borderline, hold blood pressure medications today. #.? CKD3:? Monitor renal function electrolytes.? Avoid nephrotoxins #.? Xod-ygihpen-ucosfwsax diabetes mellitus with hyperglycemia:? Hold home anti hyperglycemics. #.? Bipolar disorder: Continue home mood stabilizers #.? Tobacco use disorder: Offered nicotine patch. DVT prophylaxis:? Lovenox 40 mg daily Medical reconciliation is pending Patient had episode of syncopal, borderline blood pressure will need monitoring on tele as well as cardiology evaluation in the morning, will monitor patient today. Time Spent With Patient Time: Total time managing care of this patient today ____ minutes. Quality Stroke Does the patient have a stroke diagnosis?: No VTE Prior VTE?: No VTE Risk Level:: Medical - moderate - high VTE Device Contraindication: N/A - Device Ordered VTE Drug Contraindication: N/A - Med Ordered
--- NOTE | 2022-05-28 17:00 | PC.NURSE ---
Patient tolerated PO fluids will CTM
--- NOTE | 2022-05-28 17:03 | PHA.MEDREC ---
Pharmacy Consult ? Medication Reconciliation Pharmacy has completed the medication reconciliation. Patient is good historian and knows her meds and doses. States she IS taking both Zigduo and Jardiance at same time. Recent stop of furosemide due to initiation of torsemide.
[2022-05-28 17:16] VITALS: BP 125/74; PULSE 71; RESP 16; O2SAT 99
--- NOTE | 2022-05-28 20:06 | P.EN_ITS ---
Event Note Date of Service: 05/28/22 Event Note: Pt wants to leave she believes she knows the cause of her syncopal episode and wants to go home and be with her kids. 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 She knows the risk of leaving against my advice including recurrent syncopal episodes, LOC, Head injury and potential if underlying cause is arrhythmia. Pt understands the risk and will be leaving AMA Time Spent With Patient Time: Total time managing care of this patient today ____ minutes.
--- NOTE | 2022-05-28 20:06 | PC.NURSE ---
Pt requesting to leave AMA. Ronen at bedside, agreeable to discharge AMA. Pt signing AMA paperwork with this RN and AGUILAR Zuleta.
--- NOTE | 2022-05-29 18:01 | PM.EVENT ---
Event Note Date of Service: 05/29/22 Event Note: Discharge summary: Discharge date and service 05/28/22. Discharge diagnosis: Syncope. Patient signed against medical advice yesterday, please see Dr. Hardwick event note for further information. Time Spent With Patient Time: Total time managing care of this patient today ____ minutes.
== END 2022-05-28 20:00 | disposition left against medical advice (07) ==
LOC: HO.ED 14:00 → HO.EDOVER 16:50
PROVIDERS: Physician Assistant Medical; Admitting Provider Internal Medicine; Emergency Provider Emergency Medicine; PCP Nurse Practitioner Family; Visit Provider Internal Medicine
DX: R55 Syncope and collapse (principal); I13.0 Hypertensive heart and chronic kidney disease with heart failure and stage 1 through stage 4 chronic kidney disease, or unspecified chronic kidney disease; E11.22 Type 2 diabetes mellitus with diabetic chronic kidney disease; N18.30 Chronic kidney disease, stage 3 unspecified; I50.9 Heart failure, unspecified; I42.9 Cardiomyopathy, unspecified; Z20.822 Contact with and (suspected) exposure to COVID-19; M35.00 Sjogren syndrome, unspecified; Z72.0 Tobacco use
CPT/HCPCS: 36415; 71046; 80053; 82947; 83735; 83880; 84484; 85025; 87635; 93005; 99222; 99284

== ENCOUNTER 2022-06-09 12:47 | Outpatient (REF) | payer MEDICARE, MEDICAID, SELFPAY ==
[2021-09-27 11:09] VITALS: BP 190/120; BMI 29.0
[2022-06-09 13:59] LABS: MANUAL DIFF FLAG NO
[2022-06-09 14:06] LABS: Basophils Absolute Auto 0.1 X10*3/uL (0.0-0.2); Basophils Percent Auto 0.5 % (0-2); Eosinophils Absolute Auto 0.1 X10*3/uL (0.0-0.4); Hematocrit 34.9 % (37.0-47.0); Hemoglobin 11.7 g/dl (12.0-16.0); Imm Gran Abs Auto 0.05 X10*3/uL (0.00-0.03); Imm Gran Pct Auto 0.4 % (0.0-0.4); Lymphocytes Absolute Auto 1.5 X10*3/uL (1.2-4.9); Mean Corpuscular HGB Conc 33.5 g/dl (31.0-35.0); Mean Corpuscular Hemoglobin 31.7 pg (27.0-33.0); Mean Corpuscular Volume 94.6 fL (80.0-98.0); Mean Platelet Volume 9.7 fL (9.4-12.3); Monocytes Absolute Auto 0.7 X10*3/uL (0.1-1.2); Monocytes Percent Auto 5.8 % (2-11); Neutrophils Absolute Auto 8.9 x10*3/uL (2.0-8.3); Neutrophils Percent Auto 79.3 % (45-73); Platelet Count 428 X10*3/uL (160-400); Red Blood Count 3.69 X10*6/uL (4.20-5.50); Red Cell Distribution Width 15.6 % (11.0-16.0); White Blood Count 11.2 X10*3/uL (4.8-10.8)
[2022-06-09 14:17] LABS: Estimated Average Glucose 146 mg/dL; Hemoglobin A1c % 6.7 %
[2022-06-09 14:28] LABS: Alanine Aminotransferase 31 U/L (0-31); Albumin Level 3.5 g/dL (3.5-5.0); Alkaline Phosphatase 141 U/L (39-117); Anion Gap 14 (12-20); Aspartate Amino Transferase 33 U/L (5-31); Bilirubin Total 0.7 mg/dL (0.0-1.0); Blood Urea Nitrogen 30 mg/dL (9-16); Calcium 8.6 mg/dL (8.4-10.2); Carbon Dioxide 24 mmol/L (22-29); Chloride 100 mmol/L (96-108); Cholesterol 183 mg/dL; Estimated Glomerular Filt Rate 20; Glucose Fasting 319 mg/dL (60-99); HDL Cholesterol 51 mg/dL; LDL Cholesterol Calculated 107 mg/dl; Potassium 5.7 mmol/L (3.3-5.1); Sodium 132 mmol/L (135-145); Total Protein 5.7 g/dL (6.5-8.0); Triglycerides 128 mg/dL
[2022-06-09 14:44] LABS: TSH reflex Free T4 0.58 uIU/mL (0.32-4.0)
[2022-06-09 14:46] LABS: B Type Natriuretic Peptide 963 pg/mL (<100)
== END 2022-06-09 12:48 | disposition home or self-care (01) ==
LOC: HO.HMGCLDS 12:47
PROVIDERS: Absent Provider Nurse Practitioner Family; PCP Nurse Practitioner Family; Visit Provider Internal Medicine Endocrinology, Diabetes & Metabolism
DX: Z13.89 Encounter for screening for other disorder (principal)
CPT/HCPCS: 36415; 80053; 80061; 83036; 83880; 84443; 85025

== ENCOUNTER 2022-06-09 22:45 | Emergency (ER) | payer MEDICARE, MEDICAID, SELFPAY ==
[2021-09-27 11:09] VITALS: BP 190/120; BMI 29.0
--- NOTE | 2022-06-09 | ECG_ITS ---
Test Reason : K high Blood Pressure : / mmHG Vent. Rate : 081 BPM Atrial Rate : 081 BPM P-R Int : 166 ms QRS Dur : 090 ms QT Int : 384 ms P-R-T Axes : 053 -03 150 degrees QTc Int : 446 ms Normal sinus rhythm Possible Left atrial enlargement Left ventricular hypertrophy with repolarization abnormality ( R in aVL , Sokolow-Abarca , Omar product , Romhilt-Peres ) Abnormal ECG When compared with ECG of 28-MAY-2022 13:32, Nonspecific T wave abnormality has replaced inverted T waves in Inferior leads Referred By: Generic ED Physician Electronically Signed By:MANJEET DUVALL
[2022-06-09 22:55] VITALS: BP 202/112; PULSE 82; O2SAT 99; BMI 29.1
[2022-06-09 23:04] VITALS: BP 198/114; PULSE 83; RESP 11; TEMP 37.1; O2SAT 100
[2022-06-09 23:13] LABS: Basophils Absolute Auto 0.1 X10*3/uL (0.0-0.2); Basophils Percent Auto 0.6 % (0-2); Eosinophils Absolute Auto 0.1 X10*3/uL (0.0-0.4); Eosinophils Percent Auto 1.3 % (0-4); Hemoglobin 10.9 g/dl (12.0-16.0); Imm Gran Abs Auto 0.02 X10*3/uL (0.00-0.03); Imm Gran Pct Auto 0.2 % (0.0-0.4); Lymphocytes Absolute Auto 1.8 X10*3/uL (1.2-4.9); Lymphocytes Percent Auto 16.7 % (20-40); MANUAL DIFF FLAG NO; Mean Corpuscular HGB Conc 34.1 g/dl (31.0-35.0); Mean Corpuscular Hemoglobin 31.8 pg (27.0-33.0); Mean Corpuscular Volume 93.3 fL (80.0-98.0); Mean Platelet Volume 9.3 fL (9.4-12.3); Monocytes Absolute Auto 0.7 X10*3/uL (0.1-1.2); Monocytes Percent Auto 6.7 % (2-11); Neutrophils Absolute Auto 8.1 x10*3/uL (2.0-8.3); Neutrophils Percent Auto 74.5 % (45-73); Platelet Count 369 X10*3/uL (160-400); Red Blood Count 3.43 X10*6/uL (4.20-5.50); Red Cell Distribution Width 15.5 % (11.0-16.0); White Blood Count 10.8 X10*3/uL (4.8-10.8)
--- NOTE | 2022-06-09 23:23 | ED_ITS ---
HPI - General Adult General Chief complaint: General Medical Stated complaint: hypertension Time Seen by Provider: 06/09/22 23:11 Source: patient Mode of arrival: EMS History of Present Illness HPI narrative: 42-year-old female with known CKD and congestive heart failure presents via EMS with no acute complaints other than stating that [facility] cardiology called her to come in for further evaluation due to a potassium of 5.7. Patient is not taken any of her medications today and states that she was taken off of all of her water pills and kept on potassium supplementation. She appears to be otherwise a little aggravated, she denies any recent weight gain and says that the swelling in her lower extremities is minimal. She denies any shortness of breath, chest pain/palpitations. Related Data Home Medications Medication Instructions Recorded Confirmed clonazepam 1 mg tablet 1 tab PO DAILY PRN anxiety 01/27/22 05/28/22 carvedilol 25 mg tablet 50 mg PO BID 03/20/22 05/28/22 spironolactone 100 mg tablet 100 mg PO DAILY 04/02/22 05/28/22 nifedipine 90 mg tablet,extended 1 tab PO DAILY 04/22/22 05/28/22 release 24 hr dapagliflozin 10 mg-metformin ER 1 tab PO DAILY 05/28/22 05/28/22 1,000 mg tablet,extended release 24hr (Xigduo XR) dulaglutide 1.5 mg/0.5 mL 1.5 mg subcut TH 05/28/22 05/28/22 subcutaneous pen injector (Trulicity) nicotine 21 mg/24 hr daily 1 patch transdermal DAILY 05/28/22 05/28/22 transdermal patch omeprazole 20 mg capsule,delayed 20 mg PO DAILY@0630 PRN Heartburn 05/28/22 05/28/22 release potassium chloride 20 mEq 1 tab PO BID 05/28/22 05/28/22 tablet,extended release torsemide 20 mg tablet 2 tab PO DAILY 05/28/22 05/28/22 Previous Rx's Medication Instructions Recorded albuterol sulfate 90 mcg/actuation 1 inh inhalation QID PRN Wheezing 02/11/22 aerosol inhaler 30 days #8.5 grams aspirin 81 mg tablet,delayed 81 mg PO DAILY 90 days #90 tabs 03/20/22 release blood sugar diagnostic (FreeStyle #100 ea 03/20/22 Lite Strips) blood-glucose meter (FreeStyle #1 ea 03/20/22 Lite Meter kit) lancets 28 gauge (FreeStyle #100 ea 03/20/22 Lancets) blood pressure test kit-large #1 ea 03/25/22 amitriptyline 10 mg tablet 20 mg PO BEDTIME 30 days #60 tabs 04/30/22 empagliflozin 10 mg tablet 10 mg PO DAILY #30 tabs 05/28/22 (Jardiance) valsartan 160 mg tablet 160 mg PO BID #60 tabs 05/28/22 Allergies Allergy/AdvReac Type Severity Reaction Status Date / Time Cephalosporins Allergy Intermediate RASH ALL Verified 04/29/22 07:41 [CEPHALOSPORINS] OVER amoxicillin Allergy Unknown rash Verified 04/29/22 07:41 cefaclor [From Ceclor] Allergy Unknown RASH Verified 04/29/22 07:41 cephalexin Allergy Unknown rash Verified 04/29/22 07:41 cephradine [From VELOSEF] Allergy Unknown RASH Verified 04/29/22 07:41 Penicillins [PENICILLINS] Allergy Unknown RASH Verified 04/29/22 07:41 gabapentin [GABAPENTIN] AdvReac Unknown RESTLESS Verified 04/29/22 07:41 LEGS, Body becomes very uncomfortable Review of Systems Review of Systems: Pertinent positives and negatives as stated in HPI [facility] Past Medical History Source: nursing notes reviewed Medical History Anxiety Bipolar 1 disorder Cardiomyopathy CKD (chronic kidney disease) CKD (chronic kidney disease) stage 2, GFR 60-89 ml/min Diabetes mellitus Eclampsia Fatty liver H/O mixed connective tissue disease Heart block AV second degree Heart failure, unspecified (~09/2020) High cholesterol History of DVT (deep vein thrombosis) HTN (hypertension) Hypersomnia Lupus Malignant hypertension Migraines Nicotine dependence, cigarettes, uncomplicated (~1999) PTSD (post-traumatic stress disorder) Rheumatoid arthritis Sjogren's disease Surgical History History of bronchoscopy (~11/2020) History of cholecystectomy (~05/2014) History of hysterectomy Family History Family History Father Substance use disorder Mental health disorder Brother Substance use disorder Mental health disorder Brother Substance use disorder Mental health disorder Other Diabetes HTN (hypertension) Social History Social History Household Members: Children Household Members Other:: 3 Housing: House Are you a primary caregivers non medical to a significant other at home: No Do you presently have visiting nurse or other home services: No Alcohol intake: former Patient Tobacco Use Status: Current everyday Tobacco user Tobacco use type: Cigarette Cigarette Packs Per Day: 0.5 Cigarettes Per Day: 10 Years Smoked: 20 e-Cigarette/Vaping Use: Never Used Second Hand Smoke Exposure: No Substance Use Type: Marijuana Advance Directives: Yes Advance Directives on File: Yes Advance Directives Date on File: 06/03/21 service: No Current occupational status: disabled Cognitive needs: No Hearing needs: No Vision needs: No Physical Exam ED Vital Signs: Vital Signs - 24 hr 06/09/22 23:04 06/10/22 00:25 06/10/22 01:59 Temperature 98.8 F 98.1 F 98.6 F Pulse Rate 83 81 82 Respiratory Rate 11 L 26 H 25 H Blood Pressure 198/114 H 188/111 H 173/100 H Pulse Oximetry 100 97 97 Oxygen Delivery Method Room Air Room Air Room Air BMI result Body Mass Index 29.1 VITAL SIGNS: Reviewed. GENERAL: Well developed, well nourished, in no acute distress. HEAD: Normocephalic/atraumatic EYES: PERRLA, EOMI LUNGS: Normal breath sounds, easy breathing no rales/rhonchi and no tachypnea. SpO2<100> CARDIOVASCULAR: Regular rate and rhythm without noted murmurs, no JVD trace to 1+ pitting edema ABDOMEN: Soft, non-tender, non-distended with bowel sounds. MUSCULOSKELETAL: No tenderness, deformities, or effusions noted on gross inspection. EXTREMITIES: No cyanosis, clubbing or edema. SKIN: Inspection of the skin reveals no rashes NEUROLOGIC: Alert and oriented x 4. Strength and sensation to light touch were g rossly intact x 4. Medications Administered Discontinued Medications Generic Name Dose Route Start Last Admin Trade Name Freq PRN Reason Stop Dose Admin Calcium Gluconate 2 gm in 100 mls @ 400 mls/hr 06/09/22 23:48 06/10/22 00:39 Calcium Gluconate IV 06/10/22 00:02 Infused ONCE ONE Infusion Dextrose 250 mls @ 750 mls/hr 06/10/22 00:15 06/10/22 00:50 D10 IV 06/10/22 00:34 Infused .Q20M BRIAN Infusion Insulin Human Regular 5 unit 06/09/22 23:43 06/10/22 00:22 Insulin Regular, Human 100 Unit/Ml 3 Ml Vial IVPUSH 06/09/22 23:44 5 unit ONCE ONE Administration Medical Decision Making Medical Decision Making MDM Narrative: 42-year-old female who has continued with potassium supplementation and has been removed from all other diuretics and now instructed to come in with known kidney disease for a potassium of 5.7. She is currently asymptomatic but will proceed with basic labs, EKG and she is noted to be hypertensive but states she did not take any of her medications today. She has the bag of medications with her and will discussed with nursing to administer. Potassium is somewhat improved, ordered calcium gluconate/D10 (replacement for D50 as [place] by [facility] [place]5 units regular insulin. Will repeat EKG and BMP. Patient will then be instructed to stop taking all potassium supplementation. On re-evaluation and review of repeat BMP after treatment for hyperkalemia there is been complete resolution and patient was instructed to stop taking any potassium supplementation and has good follow-up with Cardiology this coming Thursday. She is otherwise hemodynamically stable without shortness of breath or chest pain. Blood pressure has improved. Differential Diagnosis Please see the discussion above Lab Data Please see the discussion above 06/09/22 23:08 06/09/22 23:08 Labs: Lab Results 06/09/22 06/09/22 06/10/22 Range/Units 23:08 23:08 00:47 WBC 10.8 (4.8-10.8) X10*3/uL RBC 3.43 L (4.20-5.50) X10*6/uL Hgb 10.9 L (12.0-16.0) g/dl Hct 32.0 L (37.0-47.0) % MCV 93.3 (80.0-98.0) fL MCH 31.8 (27.0-33.0) pg MCHC 34.1 (31.0-35.0) g/dl RDW 15.5 (11.0-16.0) % Plt Count 369 (160-400) X10*3/uL MPV 9.3 L (9.4-12.3) fL Immature Gran % (Auto) 0.2 (0.0-0.4) % Neut % (Auto) 74.5 H (45-73) % Lymph % (Auto) 16.7 L (20-40) % [place] % (Auto) 6.7 (2-11) % Eos % (Auto) 1.3 (0-4) % Baso % (Auto) 0.6 (0-2) % Lymph # (Auto) 1.8 (1.2-4.9) X10*3/uL [place] # (Auto) 0.7 (0.1-1.2) X10*3/uL Eos # (Auto) 0.1 (0.0-0.4) X10*3/uL Baso # (Auto) 0.1 (0.0-0.2) X10*3/uL Abs Immat Gran (auto) 0.02 (0.00-0.03) X10*3/uL Absolute Neuts (auto) 8.1 (2.0-8.3) x10*3/uL Absolute Nucleated RBC 0.000 (0.0-0.012) X10*3/uL Nucleated RBC % (auto) 0.0 (0.0-0.2) /100WBC Sodium 138 (135-145) mmol/L Potassium 5.3 H (3.3-5.1) mmol/L Chloride 105 (96-108) mmol/L Carbon Dioxide 24 (22-29) mmol/L Anion Gap 14 (12-20) BUN 35 H (9-16) mg/dL Creatinine 2.84 H (0.5-1.4) mg/dL Estim Creat Clear Calc 27.4 Estimated GFR 18 POC Glucose 195 H (60-115) mg/dL Random Glucose 213 H (60-115) mg/dL Calcium 8.5 (8.4-10.2) mg/dL Magnesium 2.3 (1.6-2.6) mg/dL 06/10/22 Range/Units 01:23 WBC (4.8-10.8) X10*3/uL RBC (4.20-5.50) X10*6/uL Hgb (12.0-16.0) g/dl Hct (37.0-47.0) % MCV (80.0-98.0) fL MCH (27.0-33.0) pg MCHC (31.0-35.0) g/dl RDW (11.0-16.0) % Plt Count (160-400) X10*3/uL MPV (9.4-12.3) fL Immature Gran % (Auto) (0.0-0.4) % Neut % (Auto) (45-73) % Lymph % (Auto) (20-40) % [place] % (Auto) (2-11) % Eos % (Auto) (0-4) % Baso % (Auto) (0-2) % Lymph # (Auto) (1.2-4.9) X10*3/uL [place] # (Auto) (0.1-1.2) X10*3/uL Eos # (Auto) (0.0-0.4) X10*3/uL Baso # (Auto) (0.0-0.2) X10*3/uL Abs Immat Gran (auto) (0.00-0.03) X10*3/uL Absolute Neuts (auto) (2.0-8.3) x10*3/uL Absolute Nucleated RBC (0.0-0.012) X10*3/uL Nucleated RBC % (auto) (0.0-0.2) /100WBC Sodium 139 (135-145) mmol/L Potassium 4.9 (3.3-5.1) mmol/L Chloride 106 (96-108) mmol/L Carbon Dioxide 27 (22-29) mmol/L Anion Gap 11 L (12-20) BUN 35 H (9-16) mg/dL Creatinine 2.84 H (0.5-1.4) mg/dL Estim Creat Clear Calc 27.4 Estimated GFR 18 POC Glucose (60-115) mg/dL Random Glucose 106 (60-115) mg/dL Calcium 9.1 D (8.4-10.2) mg/dL Magnesium (1.6-2.6) mg/dL Independent Interpretation I performed an independent interpretation of an: EKG Interpretation: Normal sinus rhythm, HR-81, no STEMI, but ST-T changes with changes also consistent with underlying LVH, VA/QRS/QTC are within normal limits. External Record Review External record reviewed: Outpatient record and Prior outpatient labs Chronic Conditions Patient?s care impacted by: Diabetes and Hypertension Critical Care Time Critical Care Time Critical Care Time: Yes Total Critical Care Time: 30 Attestation: I personally attest to this time spent taking care of the patient. Discharge Plan Discharge Clinical Impression: Hyperkalemia, Hypertension Patient Disposition: Home, Self-Care Instructions: Potassium Content of Foods List (ED), Hyperkalemia (ED), Hypertension (ED) Additional Instructions: 1. Resume all home medications except and any potassium supplementation. 2. Please keep all scheduled appointments. Return to the ER for any worsening of symptoms. Prescriptions: No Action albuterol sulfate 90 mcg/actuation HFA aerosol inhaler 1 inh inhalation QID PRN (Reason: Wheezing) 30 Days Qty: 8.5 1RF aspirin 81 mg tablet,delayed release (DR/EC) 81 mg PO DAILY 90 Days Qty: 90 1RF (DME) blood-glucose meter [FreeStyle Lite Meter] Kit See Rx Instructions .Route Qty: 1 0RF Rx Instructions: As directed tests 4 X/day (DME) FreeStyle Lite Strips Strip See Rx Instructions .Route Qty: 100 5RF Rx Instructions: As directed- tests 4X/day (DME) lancets [FreeStyle Lancets] 28 gauge misc See Rx Instructions .Route Qty: 100 4RF Rx Instructions: As directed- tests 4X/day (DME) blood pressure test kit-large Kit See Rx Instructions .Route Qty: 1 0RF Rx Instructions: daily use amitriptyline 10 mg tablet 20 mg PO BEDTIME 30 Days Qty: 60 3RF Jardiance 10 mg tablet 10 mg PO DAILY Qty: 30 0RF valsartan 160 mg tablet 160 mg PO BID Qty: 60 0RF Protocol: Hold for SBP< HOLD for SBP < : 90 clonazepam 1 mg tablet 1 tab PO DAILY PRN (Reason: anxiety) carvedilol 25 mg tablet 50 mg PO BID nifedipine 90 mg tablet extended release 24hr 1 tab PO DAILY torsemide 20 mg tablet 2 tab PO DAILY potassium chloride 20 mEq tablet extended release 1 tab PO BID Xigduo XR 10-1,000 mg tablet, IR - ER, biphasic 24hr 1 tab PO DAILY nicotine 21 mg/24 hr Patch 24 Hour 1 patch TRANSDERMAL DAILY omeprazole 20 mg capsule,delayed release(DR/EC) 20 mg PO DAILY@0630 PRN (Reason: Heartburn) Trulicity 1.5 mg/0.5 mL Pen Injector 1.5 mg SUBCUT TH spironolactone 100 mg tablet 100 mg PO DAILY Referrals: Mauricio Nolasco, SITE TECHNICIAN-BC [Primary Care Provider] -
[2022-06-09 23:33] LABS: Anion Gap 14 (12-20); Blood Urea Nitrogen 35 mg/dL (9-16); Calcium 8.5 mg/dL (8.4-10.2); Carbon Dioxide 24 mmol/L (22-29); Chloride 105 mmol/L (96-108); Creatinine Clr Calc Pharmacy 27.4; Estimated Glomerular Filt Rate 18; Glucose Random 213 mg/dL (60-115); Magnesium 2.3 mg/dL (1.6-2.6); Potassium 5.3 mmol/L (3.3-5.1); Sodium 138 mmol/L (135-145)
[2022-06-10] MEDS: Insulin Regular, Human 100 UNIT/ML 3 ML VIAL IVPUSH (00:22)
[2022-06-10] MEDS: Calcium Gluconate/NaCl,Iso-Osm 2 GM/100 ML PLAST..BAG IV (00:23)
[2022-06-10] MEDS: Dextrose 10 % 250 ML 750 ML IV (00:23)
[2022-06-10 00:25] VITALS: BP 188/111; PULSE 81; RESP 26; TEMP 36.7; O2SAT 97
--- NOTE | 2022-06-10 00:48 | MHC.EDTECH ---
POC was 195 RN Vanessa conner
[2022-06-10 00:50] LABS: Glucose, Whole Blood 195 mg/dL (60-115)
[2022-06-10 01:52] LABS: Anion Gap 11 (12-20); Blood Urea Nitrogen 35 mg/dL (9-16); Calcium 9.1 mg/dL (8.4-10.2); Carbon Dioxide 27 mmol/L (22-29); Chloride 106 mmol/L (96-108); Creatinine Clr Calc Pharmacy 27.4; Estimated Glomerular Filt Rate 18; Glucose Random 106 mg/dL (60-115); Potassium 4.9 mmol/L (3.3-5.1); Sodium 139 mmol/L (135-145)
--- NOTE | 2022-06-10 01:55 | ECG_ITS ---
Test Reason : K high Blood Pressure : / mmHG Vent. Rate : 080 BPM Atrial Rate : 080 BPM P-R Int : 162 ms QRS Dur : 092 ms QT Int : 392 ms P-R-T Axes : 054 -05 145 degrees QTc Int : 452 ms Normal sinus rhythm Possible Left atrial enlargement Left ventricular hypertrophy with repolarization abnormality ( R in aVL , Sokolow-Abarca , Omar product , Romhilt-Peres ) Abnormal ECG When compared with ECG of 09-JUN-2022 23:38, No significant change was found Referred By: Christi Villanueva Electronically Signed By:MANJEET DUVALL
[2022-06-10 01:59] VITALS: BP 173/100; PULSE 82; RESP 25; TEMP 37; O2SAT 97
--- NOTE | 2022-06-10 02:09 | PC.NURSE ---
late entry- this rn clarified order for D 10. pt medicated according to jun. wedding florist checked poc @ 15 minute wesly
--- NOTE | 2022-06-10 02:10 | PC.NURSE ---
late entry- pt boyfriend at bedside. pt sleeping on stretcher at this time
--- NOTE | 2022-06-10 02:10 | PC.NURSE ---
repeat poc checked by this rn. POC [address] bowie made aware
[2022-06-10 02:11] LABS: Glucose, Whole Blood 140 mg/dL (60-115)
--- NOTE | 2022-06-10 02:21 | PC.NURSE ---
iv removed at this time. pt ambulates independently. pt calm and cooperative. pt provided with discharge packet. pt verbalizes understanding of discharge plan
== END 2022-06-10 02:29 | disposition home or self-care (01) ==
PROVIDERS: Emergency Provider Student in an Organized Health Care Education/Training Program; PCP Nurse Practitioner Family
DX: E87.5 Hyperkalemia (principal); R06.02 Shortness of breath; E11.22 Type 2 diabetes mellitus with diabetic chronic kidney disease; I13.0 Hypertensive heart and chronic kidney disease with heart failure and stage 1 through stage 4 chronic kidney disease, or unspecified chronic kidney disease; N18.30 Chronic kidney disease, stage 3 unspecified; I50.9 Heart failure, unspecified; F17.210 Nicotine dependence, cigarettes, uncomplicated; Z79.85 Long-term (current) use of injectable non-insulin antidiabetic drugs; Z79.899 Other long term (current) drug therapy; Z79.82 Long term (current) use of aspirin
CPT/HCPCS: 36415; 80048; 80053; 80061; 82947; 83036; 83735; 83880; 84443; 85025; 93005; 96365; 96375; 99284; J0611

== ENCOUNTER 2022-09-07 16:03 | Inpatient (IN) | payer MEDICARE, MEDICAID, SELFPAY ==
[2021-09-27 11:09] VITALS: BP 190/120; BMI 29.0
[2022-09-07] VITALS (7 sets, daily range): BP systolic 131–223; BP diastolic 79–147; PULSE 67–84; RESP 14–23; TEMP 36.7–36.8; O2SAT 18–100; BMI 28.5
--- NOTE | ~2022-09-07 | XR_ITS ---
EXAMINATION: XR CHEST CLINICAL INFORMATION: Question of pulmonary edema COMPARISON: 05/28/2022 TECHNIQUE: Frontal view of the chest was obtained. FINDINGS: Heart size upper limits of normal. Bibasilar atelectasis is seen. There is no evidence of CHF. No infiltrates, pleural effusions or lung masses are seen. XR/XR chest 1V IMPRESSION: No acute intrathoracic disease.
--- NOTE | 2022-09-07 16:40 | ECG_ITS ---
Test Reason : CHF Blood Pressure : / mmHG Vent. Rate : 073 BPM Atrial Rate : 073 BPM P-R Int : 150 ms QRS Dur : 094 ms QT Int : 406 ms P-R-T Axes : 057 003 147 degrees QTc Int : 447 ms Normal sinus rhythm Possible Left atrial enlargement Left ventricular hypertrophy with repolarization abnormality ( R in aVL , Sokolow-Abarca , Rolfe product , Romhilt-Peres ) Nonspecific ST abnormality Abnormal ECG When compared with ECG of 10-JUN-2022 01:58, No significant change was found Referred By: Jackie Caldwell Electronically Signed By:Mike Mccray
[2022-09-07 17:13] LABS: MANUAL DIFF FLAG NO
[2022-09-07 17:15] LABS: Basophils Absolute Auto 0.1 X10*3/uL (0.0-0.2); Basophils Percent Auto 0.5 % (0-2); Eosinophils Absolute Auto 0.3 X10*3/uL (0.0-0.4); Eosinophils Percent Auto 2.3 % (0-4); Hematocrit 26.4 % (37.0-47.0); Hemoglobin 9.5 g/dl (12.0-16.0); Imm Gran Abs Auto 0.04 X10*3/uL (0.00-0.03); Imm Gran Pct Auto 0.4 % (0.0-0.4); Lymphocytes Absolute Auto 1.5 X10*3/uL (1.2-4.9); Lymphocytes Percent Auto 13.6 % (20-40); Mean Corpuscular Hemoglobin 31.4 pg (27.0-33.0); Mean Corpuscular Volume 87.1 fL (80.0-98.0); Monocytes Absolute Auto 0.6 X10*3/uL (0.1-1.2); Monocytes Percent Auto 5.2 % (2-11); Neutrophils Absolute Auto 8.6 x10*3/uL (2.0-8.3); Platelet Count 287 X10*3/uL (160-400); Red Blood Count 3.03 X10*6/uL (4.20-5.50); Red Cell Distribution Width 16.6 % (11.0-16.0)
[2022-09-07 17:40] LABS: Appearance Urine Clear; Color Urine Yellow; Glucose Urine UA 500 mg/dL (Negative); Leukocyte Esterase Urine Negative (Negative); Nitrite Urine Negative (Negative); PH 6.5 (5.0-9.0); UMIC TRIGGER UACC YES; Urine Blood Negative (Negative); Urine Ketones Negative (Negative); Urine Protein 300 (3+) mg/dL (Neg-Trace)
--- NOTE | 2022-09-07 17:40 | PC.NURSE ---
pt a&ox4, hypertensive, all other vss, professor/nurse anesthetist applied - NSR, 20G IV Placed left AC, labs drawn, urine sample obtained, pt denies any pain, reports increased sob w exertion x 3 days. pt pending lab results/ED provider. no new orders at this time.
[2022-09-07 17:43] LABS: Bacteria Urine None Seen (None Seen); Hyaline Casts Urine 0-2 /LPF (0-2); RBC Urine 0-2 /HPF (0-2); Squamous Epithelial Cell Urine 0-2 /HPF (0-2); WBC Urine 0-5 /HPF (0-5)
[2022-09-07 17:43] LABS: Anion Gap 14 (12-20); Blood Urea Nitrogen 34 mg/dL (9-16); Calcium 8.4 mg/dL (8.4-10.2); Carbon Dioxide 25 mmol/L (22-29); Chloride 101 mmol/L (96-108); Creatinine Clr Calc Pharmacy 30.7; Estimated Glomerular Filt Rate 20; Glucose Random 206 mg/dL (60-115); Potassium 3.5 mmol/L (3.3-5.1); Sodium 136 mmol/L (135-145)
[2022-09-07 17:45] LABS: Troponin-I High Sensitivity 104.4 ng/L (<3.5-17.0)
[2022-09-07] MEDS: Labetalol HCL 100 MG TABLET PO (19:13)
[2022-09-07 19:26] LABS: B Type Natriuretic Peptide 4434 pg/mL (<100)
[2022-09-07 20:52] LABS: Troponin-I High Sensitivity 112.2 ng/L (<3.5-17.0)
[2022-09-07] MEDS: Bumetanide 1 MG/4 ML VIAL 0.5 MG IVPUSH (23:02)
--- NOTE | 2022-09-07 23:43 | PM.IMHP ---
History of Present Illness Date of Service: 09/07/22 Chief Complaint: SOB 42-year-old female past medical history of diabetes, hypertension, CHF mixed connective tissue disease, bipolar 1 disorder, HLD, CKD stage 3, second-degree heart block, lupus, PTSD, rheumatoid arthritis, Sjogren's disease, among others who presents with complaints of shortness of breath. She reports that she has been under a lot of stress due to her friend Marilyn, she has not been taking most of her medications, she was taken off her Lasix about 3 months ago. She states that her symptoms started few days ago, she denies any cough, no sputum production. She has orthopnea and PND, no lower extremity edema, no chest pain, no palpitations, no abdominal pain nausea or vomiting, no diarrhea constipation, no urinary symptoms. On arrival to the ED patient hemodynamically stable with an elevated blood pressure of 223/147, noted to be 90% on room air Labs are significant for WBC count of 11, hemoglobin of 9.5, hematocrit 26.54 which is slightly lower than her usual, creatinine of 2.69 which is around her baseline, BUN of 35 Troponin of 104 increased to 112 for no chest pain, BNP of 4434, UA negative for acute infection Chest x-ray shows no acute intrathoracic disease EKG shows T-wave inversions in the lateral leads, lead 1, as well as aVL and these were present on previous EKG Patient started on Lasix and will be admitted for further management Review of Systems Review of Systems: Yes all other systems are reviewed and are negative [facility] Medical History Anxiety Bipolar 1 disorder Cardiomyopathy CKD (chronic kidney disease) CKD (chronic kidney disease) stage 2, GFR 60-89 ml/min Diabetes mellitus Eclampsia Fatty liver H/O mixed connective tissue disease Heart block AV second degree Heart failure, unspecified (~09/2020) High cholesterol History of DVT (deep vein thrombosis) HTN (hypertension) Hypersomnia Lupus Malignant hypertension Migraines Nicotine dependence, cigarettes, uncomplicated (~1999) PTSD (post-traumatic stress disorder) Rheumatoid arthritis Sjogren's disease Family History Father Substance use disorder Mental health disorder Brother Substance use disorder Mental health disorder Brother Substance use disorder Mental health disorder Other Diabetes HTN (hypertension) Surgical History History of bronchoscopy (~11/2020) History of cholecystectomy (~05/2014) History of hysterectomy Social History Household Members: Children Household Members Other:: 3 Housing: House Are you a primary care associate to a significant other at home: No Do you presently have visiting nurse or other home services: No Alcohol intake: former Patient Tobacco Use Status: Never used Tobacco Tobacco use type: Cigarette Cigarette Packs Per Day: 0.5 Cigarettes Per Day: 10 Years Smoked: 20 Smoked in Last 30 Days: Yes e-Cigarette/Vaping Use: Never Used Second Hand Smoke Exposure: No Use of substances other than those prescribed or required for medical reasons: Yes Substance Use Type: Marijuana Advance Directives: Yes Advance Directives on File: Yes Advance Directives Date on File: 06/03/21 Nutrition Risks: No Nutritional Risk Patient : No service: No Current occupational status: disabled Cognitive needs: No Hearing needs: No Vision needs: No Meds Allergies Allergy/AdvReac Type Severity Reaction Status Date / Time amoxicillin Allergy Unknown rash Verified 09/07/22 16:26 cefaclor [From Ceclor] Allergy Unknown RASH Verified 09/07/22 16:26 cephalexin Allergy Unknown rash Verified 09/07/22 16:26 Cephalosporins Allergy Unknown RASH ALL Verified 09/07/22 16:26 [CEPHALOSPORINS] OVER cephradine [From VELOSEF] Allergy Unknown RASH Verified 09/07/22 16:26 Penicillins [PENICILLINS] Allergy Unknown RASH Verified 09/07/22 16:26 gabapentin [GABAPENTIN] AdvReac Unknown RESTLESS Verified 09/07/22 16:26 LEGS, Body becomes very uncomfortable Active Medications: Current Medications Furosemide (Furosemide 40 Mg/4 Ml Vial) 40 mg IVPUSH Q12H BRIAN; Protocol Home Medications Medication Instructions Recorded Confirmed Last Taken Type clonazepam 1 mg tablet 1 tab PO DAILY PRN anxiety 01/27/22 08/20/22 04/21/22 History carvedilol 25 mg tablet 50 mg PO BID 03/20/22 08/20/22 05/28/22 History spironolactone 100 mg tablet 100 mg PO DAILY 04/02/22 08/20/2205/28/23 History nifedipine 90 mg tablet,extended 1 tab PO DAILY 04/22/22 08/20/22 05/28/22 History release 24 hr dulaglutide 1.5 mg/0.5 mL 1.5 mg subcut TH 05/28/22 08/20/22 05/22/22 History subcutaneous pen injector (Trulicity) nicotine 21 mg/24 hr daily 1 patch transdermal DAILY 05/28/22 08/20/22 Unknown History transdermal patch torsemide 20 mg tablet 2 tab PO DAILY 05/28/22 08/20/22 05/28/22 History sacubitril 97 mg-valsartan 103 mg 1 tab PO BID 08/20/22 08/20/22 Unknown History tablet (Entresto) Physical Exam Vital Signs and Narrative: Vital Signs: Last Vital Signs Temp 98.1 F 09/07/22 22:30 Pulse 67 09/07/22 22:30 Resp 23 H 09/07/22 22:30 BP 134/79 09/07/22 22:30 Pulse Ox 90 L 09/07/22 22:30 O2 Del Method Room Air 09/07/22 22:30 BMI result Body Mass Index 28.5 Const: General: cooperative and no acute distress Orientation/consciousness: patient oriented x3 Eyes: General: appearance normal, both eyes and all related structures Pupils: Equal, round and reactive pupils present Resp: Other: Crackles bilaterally Effort & Inspection: normal respiratory effort Cardio: Rate: regular rate Rhythm: regular rhythm GI: Palpation (GI): Soft to palpation Auscultation: normal bowel sounds Skin: General skin exam: no rashes or lesions noted Neuro: General: patient oriented x3 Cranial nerves: Yes Equal, round and reactive pupils present Cognition (Neuro): normal cognition Extrem: General: Yes normal to inspection and Yes no pedal edema Results Labs 09/07/22 17:09 09/07/22 17:09 Labs: Laboratory Results - last 24 hr 09/07/22 09/07/22 09/07/22 17:09 17:09 17:09 MCV 87.1 MCH 31.4 MCHC 36.0 H RDW 16.6 H Plt Count 287 MPV 10.0 Immature Gran % (Auto) 0.4 Neut % (Auto) 78.0 H Lymph % (Auto) 13.6 L [place] % (Auto) 5.2 Eos % (Auto) 2.3 Baso % (Auto) 0.5 Lymph # (Auto) 1.5 [place] # (Auto) 0.6 Eos # (Auto) 0.3 Baso # (Auto) 0.1 Abs Immat Gran (auto) 0.04 H Absolute Neuts (auto) 8.6 H Absolute Nucleated RBC 0.000 Nucleated RBC % (auto) 0.0 Anion Gap 14 Estim Creat Clear Calc 30.7 Estimated GFR 20 Random Glucose 206 H Calcium 8.4 D Troponin I High Sens 104.4 H* D B-Natriuretic Peptide Urine Color Urine Appearance Urine pH Ur Specific [place] Urine Protein Urine Glucose (UA) Urine Ketones Urine Blood Urine Nitrite Ur Leukocyte Esterase Urine RBC Urine WBC Ur Squamous Epith Cells Urine Bacteria Hyaline Casts 09/07/22 09/07/22 09/07/22 17:09 17:25 20:04 MCV MCH MCHC RDW Plt Count MPV Immature Gran % (Auto) Neut % (Auto) Lymph % (Auto) [place] % (Auto) Eos % (Auto) Baso % (Auto) Lymph # (Auto) [place] # (Auto) Eos # (Auto) Baso # (Auto) Abs Immat Gran (auto) Absolute Neuts (auto) Absolute Nucleated RBC Nucleated RBC % (auto) Anion Gap Estim Creat Clear Calc Estimated GFR Random Glucose Calcium Troponin I High Sens 112.2 H* B-Natriuretic Peptide 4434 H Urine Color Yellow Urine Appearance Clear Urine pH 6.5 Ur Specific [place] 1.010 Urine Protein 300 (3+) H Urine Glucose (UA) 500 H Urine Ketones Negative Urine Blood Negative Urine Nitrite Negative Ur Leukocyte Esterase Negative Urine RBC 0-2 Urine WBC 0-5 Ur Squamous Epith Cells 0-2 Urine Bacteria None Seen Hyaline Casts 0-2 Imaging Radiologist's Impressions: Impressions Chest X-Ray 09/07/22 19:31 IMPRESSION: No acute intrathoracic disease. Assessment and Plan (1) Acute exacerbation of CHF (congestive heart failure): Status: Acute (2) Hypertensive urgency: Status: Acute Plan 42-year-old female with past medical history of CHF with reduced ejection fraction, diabetes, poorly controlled hypertension, hyperlipidemia among others presents the hospital with complaints of shortness of breath found to be in acute CHF exacerbation # acute CHF exacerbation - likely due to history of noncompliance, as well as need for diuretics -patient reports that due to need recent stress she has not been able to take any of her medications, and her Lasix was stopped about 3 months ago by her silk conditioner - troponin slightly elevated, no new EKG changes - will treat with IV Lasix - cardiology consulted - strict I&O, daily weight, low-sodium diet # hypertensive urgency - due to noncompliance - will continue home medications - follow BP closely # diabetes - low-dose sliding scale insulin - diabetic diet - hold oral antihyperglycemics # CKD stage 3 - the same - follow BMP DVT prophylaxis: Lovenox Given patient's need for further management of CHF exacerbation patient require minimum 2 night inpatient hospital stay for further management and monitoring Time Spent With Patient Time: Total time managing care of this patient today ____ minutes. Quality Stroke Does the patient have a stroke diagnosis?: No VTE Prior VTE?: No VTE Risk Level:: Medical - moderate - high VTE Device Contraindication: Treatment Not Indicated VTE Drug Contraindication: N/A - Med Ordered
[2022-09-08] VITALS: BP 141/84; PULSE 70; RESP 18; O2SAT 100
[2022-09-08] MEDS: Enoxaparin Sodium 40 MG/0.4 ML SYRINGE SUBCUT (00:04)
[2022-09-08] MEDS: Furosemide 40 MG/4 ML VIAL IVPUSH ×2 (00:05→11:50)
--- NOTE | 2022-09-08 01:04 | ED_ITS ---
HPI - General Adult General Chief complaint: General Medical Stated complaint: SOB,HIGH BP 218/127 PER EMS Time Seen by Provider: 09/07/22 16:36 Source: patient Mode of arrival: ambulatory Limitations: no limitations History of Present Illness HPI narrative: Patient comes to the emergency room complaining of high blood pressure. Patient states that she has had increased stresses in her life and has not been taking care of herself as she should, skipping medications sometimes but not today. Patient checks her blood pressure at home and it was noted he was above 200 today. Patient denies chest pain. However, patient states that she has been complaining of more shortness of breath than usual, patient known to have CHF Related Data Home Medications Medication Instructions Recorded Confirmed clonazepam 1 mg tablet 1 tab PO DAILY PRN anxiety 01/27/22 08/20/22 carvedilol 25 mg tablet 50 mg PO BID 03/20/22 08/20/22 spironolactone 100 mg tablet 100 mg PO DAILY 04/02/22 08/20/22 nifedipine 90 mg tablet,extended 1 tab PO DAILY 04/22/22 08/20/22 release 24 hr dulaglutide 1.5 mg/0.5 mL 1.5 mg subcut TH 05/28/22 08/20/22 subcutaneous pen injector (Trulicity) nicotine 21 mg/24 hr daily 1 patch transdermal DAILY 05/28/22 08/20/22 transdermal patch torsemide 20 mg tablet 2 tab PO DAILY 05/28/22 08/20/22 sacubitril 97 mg-valsartan 103 mg 1 tab PO BID 08/20/22 08/20/22 tablet (Entresto) Previous Rx's Medication Instructions Recorded aspirin 81 mg tablet,delayed 81 mg PO DAILY 90 days #90 tabs 03/20/22 release blood sugar diagnostic (FreeStyle #100 ea 03/20/22 Lite Strips) blood-glucose meter (FreeStyle #1 ea 03/20/22 Lite Meter kit) lancets 28 gauge (FreeStyle #100 ea 03/20/22 Lancets) blood pressure test kit-large #1 ea 03/25/22 empagliflozin 10 mg tablet 10 mg PO DAILY #30 tabs 05/28/22 (Jardiance) amitriptyline 10 mg tablet 20 mg PO BEDTIME 30 days #60 tabs 03/16/23 albuterol sulfate 90 mcg/actuation 1 inh inhalation QID PRN Wheezing 06/24/22 aerosol inhaler 30 days #8.5 grams omeprazole 20 mg capsule,delayed 20 mg PO DAILY@0630 PRN Heartburn 08/09/22 release #20 caps Allergies Allergy/AdvReac Type Severity Reaction Status Date / Time amoxicillin Allergy Unknown rash Verified 09/07/22 16:26 cefaclor [From Ceclor] Allergy Unknown RASH Verified 09/07/22 16:26 cephalexin Allergy Unknown rash Verified 09/07/22 16:26 Cephalosporins Allergy Unknown RASH ALL Verified 09/07/22 16:26 [CEPHALOSPORINS] OVER cephradine [From VELOSEF] Allergy Unknown RASH Verified 09/07/22 16:26 Penicillins [PENICILLINS] Allergy Unknown RASH Verified 09/07/22 16:26 gabapentin [GABAPENTIN] AdvReac Unknown RESTLESS Verified 09/07/22 16:26 LEGS, Body becomes very uncomfortable Review of Systems Review of Systems: Constitutional : No Weight loss, No Fever, No Chills, No Night Sweats, No Fatigue, No Malaise ENT/Mouth : No Hearing loss, No Ear Pain, No Nasal Congestion, No Sinus Pain, No Hoarseness, No sore throat, No Rhinorrhea, No Swallowing Difficulty Eyes: No Eye Pain, No Swelling, No Redness, No Foreign Body, No Discharge, No Vision Changes Cardiovascular : No Chest Pain, complaining of high blood pressure, shortness of breath worse with exertion and orthopnea is present Respiratory : No Cough, No Sputum, No Wheezing, No Smoke Exposure, No Dyspnea Gastrointestinal : No Nausea, No Vomiting, No Diarrhea, No Constipation, No abdominal Pain, No Hematochezia, No Melena Genitourinary : no irregular bleeding, No Dysuria, No Urinary Frequency, No Hematuria, No Urinary Incontinence, No Urgency, No Flank Pain, No Urinary Flow Changes, No Hesitancy Musculoskeletal : No joint pain, No Myalgias, No Joint Swelling Skin : No Skin Lesions, No rash Neuro : No Weakness, No Numbness, No Paresthesias, No Loss of Consciousness, No Dizziness, No Headache Psych : No Anxiety/Panic, No Depression, No SI/HI/AH/VH, No Social Issues, Heme/Lymph: No Bruising, No Bleeding,No Lymphadenopathy Endocrine : No Polyuria, No Polydipsia, No Temperature Intolerance PMFSH Past Medical History Medical History Anxiety Bipolar 1 disorder Cardiomyopathy CKD (chronic kidney disease) CKD (chronic kidney disease) stage 2, GFR 60-89 ml/min Diabetes mellitus Eclampsia Fatty liver H/O mixed connective tissue disease Heart block AV second degree Heart failure, unspecified (~09/2020) High cholesterol History of DVT (deep vein thrombosis) HTN (hypertension) Hypersomnia Lupus Malignant hypertension Migraines Nicotine dependence, cigarettes, uncomplicated (~1999) PTSD (post-traumatic stress disorder) Rheumatoid arthritis Sjogren's disease Surgical History History of bronchoscopy (~11/2020) History of cholecystectomy (~05/2014) History of hysterectomy Family History Family History Father Substance use disorder Mental health disorder Brother Substance use disorder Mental health disorder Brother Substance use disorder Mental health disorder Other Diabetes HTN (hypertension) Social History Social History Household Members: Children Household Members Other:: 3 Housing: House Are you a primary personal care aid to a significant other at home: No Do you presently have visiting nurse or other home services: No Alcohol intake: former Patient Tobacco Use Status: Never used Tobacco Tobacco use type: Cigarette Cigarette Packs Per Day: 0.5 Cigarettes Per Day: 10 Years Smoked: 20 Smoked in Last 30 Days: Yes e-Cigarette/Vaping Use: Never Used Second Hand Smoke Exposure: No Use of substances other than those prescribed or required for medical reasons: Yes Substance Use Type: Marijuana Advance Directives: Yes Advance Directives on File: Yes Advance Directives Date on File: 06/03/21 Nutrition Risks: No Nutritional Risk Patient : No service: No Current occupational status: disabled Cognitive needs: No Hearing needs: No Vision needs: No Physical Exam ED Vital Signs: Vital Signs - 24 hr 09/07/22 16:27 09/07/22 18:29 09/07/22 19:18 Temperature 98.3 F Pulse Rate 83 84 82 Respiratory Rate 14 16 17 Blood Pressure 223/147 H 190/113 H 157/92 H Pulse Oximetry 97 97 97 Oxygen Delivery Method Room Air Room Air Room Air 09/07/22 20:00 09/07/22 22:00 09/07/22 22:30 Temperature 98.1 F Pulse Rate 72 72 67 Respiratory Rate 16 16 23 H Blood Pressure 153/85 H 131/84 134/79 Pulse Oximetry 100 18 L 90 L Oxygen Delivery Method Room Air Room Air Room Air 09/08/22 00:00 Temperature Pulse Rate 70 Respiratory Rate 18 Blood Pressure 141/84 H Pulse Oximetry 100 Oxygen Delivery Method Room Air BMI result Body Mass Index 28.5 Const Other: Appearance: Alert. Oriented X3. No acute distress. Eyes: Pupils equal, round and reactive to light. ENT: Pharynx normal. Neck: Normal inspection. Neck supple. No lymph nodes noted. No crepitus CVS: Normal heart rate and rhythm. Pulses normal. Normal S1 and S2 Respiratory: No respiratory distress. Breath sounds normal. No Wheezing. No crackles. Patient's oxygen saturation drops to 88% ambulating, patient is not oxygen dependent Abdomen: Soft and nontender. No rigidity. No distention. Skin: Skin warm and dry. Normal skin color. Normal skin turgor. Extremities: No lower extremity edema. No Lacerations. No Rash Neuro: Oriented X 3. No motor deficit. No sensory deficit. Moving all extremities. No slurred speech. CN 2 through 12 grossly intact Psych: calm, cooperative, normal affect Medications Administered Generic Name Dose Route Start Last Admin Trade Name Freq PRN Reason Stop Dose Admin Enoxaparin Sodium 40 mg 09/07/22 23:45 09/08/22 00:04 Enoxaparin Sodium 40 Mg/0.4 Ml Syringe SUBCUT 40 mg Q24H BRIAN Administration Furosemide 40 mg 09/07/22 23:40 09/08/22 00:05 Furosemide 40 Mg/4 Ml Vial IVPUSH 40 mg Q12H BRIAN Administration Protocol Discontinued Medications Generic Name Dose Route Start Last Admin Trade Name Freq PRN Reason Stop Dose Admin Bumetanide 0.5 mg 09/07/22 22:50 09/07/22 23:02 Bumetanide 1 Mg/4 Ml Vial IVPUSH 09/07/22 22:51 0.5 mg ONCE ONE Administration Protocol Labetalol HCl 100 mg 09/07/22 18:39 09/07/22 19:13 Labetalol Hcl 100 Mg Tablet PO 09/07/22 18:40 100 mg ONCE ONE Administration Protocol Medical Decision Making Medical Decision Making MDM Narrative: -patient's troponin and BNP are elevated above baseline. Likely secondary to hypertension. Patient does have a CHF exacerbation, given Lasix. -when patient walks, her oxygen saturation drops to 88 % and when she sleeps she drops to 84% on room air. -my interpretation of EKG: Normal sinus rhythm, heart rate 73, T-wave inversions in lead 1, V4 through V6, nonspecific ST abnormalities, QTC 447. There are no EKG changes from previous EKGs from June 2022 -I discussed the patient with Dr. Hardwick, patient being admitted Admission/Observation Consideration of admission/observation: Escalation of care including admission/observation considered Consult Healthcare Provider Management of the patient was discussed with: Hospitalist Lab Data MDM Lab Attestation statement: I reviewed the patient's lab results. 09/07/22 17:09 09/07/22 17:09 Labs: Lab Results 09/07/22 09/07/22 09/07/22 Range/Units 17:09 17:09 17:09 WBC 11.0 H (4.8-10.8) X10*3/uL RBC 3.03 L (4.20-5.50) X10*6/uL Hgb 9.5 L (12.0-16.0) g/dl Hct 26.4 L (37.0-47.0) % MCV 87.1 (80.0-98.0) fL MCH 31.4 (27.0-33.0) pg MCHC 36.0 H (31.0-35.0) g/dl RDW 16.6 H (11.0-16.0) % Plt Count 287 (160-400) X10*3/uL MPV 10.0 (9.4-12.3) fL Immature Gran % (Auto) 0.4 (0.0-0.4) % Neut % (Auto) 78.0 H (45-73) % Lymph % (Auto) 13.6 L (20-40) % [place] % (Auto) 5.2 (2-11) % Eos % (Auto) 2.3 (0-4) % Baso % (Auto) 0.5 (0-2) % Lymph # (Auto) 1.5 (1.2-4.9) X10*3/uL [place] # (Auto) 0.6 (0.1-1.2) X10*3/uL Eos # (Auto) 0.3 (0.0-0.4) X10*3/uL Baso # (Auto) 0.1 (0.0-0.2) X10*3/uL Abs Immat Gran (auto) 0.04 H (0.00-0.03) X10*3/uL Absolute Neuts (auto) 8.6 H (2.0-8.3) x10*3/uL Absolute Nucleated RBC 0.000 (0.0-0.012) X10*3/uL Nucleated RBC % (auto) 0.0 (0.0-0.2) /100WBC Sodium 136 (135-145) mmol/L Potassium 3.5 D (3.3-5.1) mmol/L Chloride 101 (96-108) mmol/L Carbon Dioxide 25 (22-29) mmol/L Anion Gap 14 (12-20) BUN 34 H (9-16) mg/dL Creatinine 2.69 H (0.5-1.4) mg/dL Estim Creat Clear Calc 30.7 Estimated GFR 20 Random Glucose 206 H (60-115) mg/dL Calcium 8.4 D (8.4-10.2) mg/dL Troponin I High Sens 104.4 H* D (<3.5-17.0) ng/L B-Natriuretic Peptide (<100) pg/mL Urine Color Urine Appearance Urine pH (5.0-9.0) Ur Specific [place] (1.005-1.025) Urine Protein (Neg-Trace) mg/dL Urine Glucose (UA) (Negative) mg/dL Urine Ketones (Negative) mg/dL Urine Blood (Negative) Urine Nitrite (Negative) Ur Leukocyte Esterase (Negative) Urine RBC (0-2) /HPF Urine WBC (0-5) /HPF Ur Squamous Epith Cells (0-2) /HPF Urine Bacteria (None Seen) Hyaline Casts (0-2) /LPF 09/07/22 09/07/22 09/07/22 Range/Units 17:09 17:25 20:04 WBC (4.8-10.8) X10*3/uL RBC (4.20-5.50) X10*6/uL Hgb (12.0-16.0) g/dl Hct (37.0-47.0) % MCV (80.0-98.0) fL MCH (27.0-33.0) pg MCHC (31.0-35.0) g/dl RDW (11.0-16.0) % Plt Count (160-400) X10*3/uL MPV (9.4-12.3) fL Immature Gran % (Auto) (0.0-0.4) % Neut % (Auto) (45-73) % Lymph % (Auto) (20-40) % [place] % (Auto) (2-11) % Eos % (Auto) (0-4) % Baso % (Auto) (0-2) % Lymph # (Auto) (1.2-4.9) X10*3/uL [place] # (Auto) (0.1-1.2) X10*3/uL Eos # (Auto) (0.0-0.4) X10*3/uL Baso # (Auto) (0.0-0.2) X10*3/uL Abs Immat Gran (auto) (0.00-0.03) X10*3/uL Absolute Neuts (auto) (2.0-8.3) x10*3/uL Absolute Nucleated RBC (0.0-0.012) X10*3/uL Nucleated RBC % (auto) (0.0-0.2) /100WBC Sodium (135-145) mmol/L Potassium (3.3-5.1) mmol/L Chloride (96-108) mmol/L Carbon Dioxide (22-29) mmol/L Anion Gap (12-20) BUN (9-16) mg/dL Creatinine (0.5-1.4) mg/dL Estim Creat Clear Calc Estimated GFR Random Glucose (60-115) mg/dL Calcium (8.4-10.2) mg/dL Troponin I High Sens 112.2 H* (<3.5-17.0) ng/L B-Natriuretic Peptide 4434 H (<100) pg/mL Urine Color Yellow Urine Appearance Clear Urine pH 6.5 (5.0-9.0) Ur Specific [place] 1.010 (1.005-1.025) Urine Protein 300 (3+) H (Neg-Trace) mg/dL Urine Glucose (UA) 500 H (Negative) mg/dL Urine Ketones Negative (Negative) mg/dL Urine Blood Negative (Negative) Urine Nitrite Negative (Negative) Ur Leukocyte Esterase Negative (Negative) Urine RBC 0-2 (0-2) /HPF Urine WBC 0-5 (0-5) /HPF Ur Squamous Epith Cells 0-2 (0-2) /HPF Urine Bacteria None Seen (None Seen) Hyaline Casts 0-2 (0-2) /LPF External Record Review External record reviewed: Inpatient record Every patient's cardiology records from her last admission, patient was discharged with Nelson Muhammad and Luiza Snyder Critical Care Time Critical Care Time Critical Care Time: Yes Total Critical Care Time: 60 Attestation: I have personally provided critical care time. Time includes review of lab data, radiology results, discussion with consultants, and monitoring for potential decompensation. Intervention performed as documented. Discharge Plan Discharge Clinical Impression: Hypertensive urgency, CHF (congestive heart failure) Patient Disposition: Admitted As Inpatient Prescriptions: No Action aspirin 81 mg tablet,delayed release (DR/EC) 81 mg PO DAILY 90 Days Qty: 90 1RF (DME) blood-glucose meter [FreeStyle Lite Meter] Kit See Rx Instructions .Route Qty: 1 0RF Rx Instructions: As directed tests 4 X/day (DME) FreeStyle Lite Strips Strip See Rx Instructions .Route Qty: 100 5RF Rx Instructions: As directed- tests 4X/day (DME) lancets [FreeStyle Lancets] 28 gauge misc See Rx Instructions .Route Qty: 100 4RF Rx Instructions: As directed- tests 4X/day (DME) blood pressure test kit-large Kit See Rx Instructions .Route Qty: 1 0RF Rx Instructions: daily use Jardiance 10 mg tablet 10 mg PO DAILY Qty: 30 0RF amitriptyline 10 mg tablet 20 mg PO BEDTIME 30 Days Qty: 60 3RF albuterol sulfate 90 mcg/actuation HFA aerosol inhaler 1 inh inhalation QID PRN (Reason: Wheezing) 30 Days Qty: 8.5 1RF omeprazole 20 mg capsule,delayed release(DR/EC) 20 mg PO DAILY@0630 PRN (Reason: Heartburn) Qty: 20 2RF clonazepam 1 mg tablet 1 tab PO DAILY PRN (Reason: anxiety) carvedilol 25 mg tablet 50 mg PO BID nifedipine 90 mg tablet extended release 24hr 1 tab PO DAILY torsemide 20 mg tablet 2 tab PO DAILY nicotine 21 mg/24 hr Patch 24 Hour 1 patch TRANSDERMAL DAILY Trulicity 1.5 mg/0.5 mL Pen Injector 1.5 mg SUBCUT TH spironolactone 100 mg tablet 100 mg PO DAILY Entresto 97-103 mg tablet 1 tab PO BID
[2022-09-08 05:26] LABS: Alanine Aminotransferase 18 U/L (0-31); Albumin Level 3.1 g/dL (3.5-5.0); Alkaline Phosphatase 134 U/L (39-117); Anion Gap 11 (12-20); Aspartate Amino Transferase 11 U/L (5-31); Bilirubin Total 1.4 mg/dL (0.0-1.0); Blood Urea Nitrogen 32 mg/dL (9-16); Calcium 8.4 mg/dL (8.4-10.2); Carbon Dioxide 26 mmol/L (22-29); Chloride 102 mmol/L (96-108); Creatinine Clr Calc Pharmacy 29.1; Estimated Glomerular Filt Rate 18; Glucose Random 238 mg/dL (60-115); Potassium 3.1 mmol/L (3.3-5.1); Sodium 136 mmol/L (135-145); Total Protein 5.2 g/dL (6.5-8.0)
[2022-09-08 05:51] VITALS: BP 125/66; PULSE 69; RESP 21; TEMP 36.9; O2SAT 94
[2022-09-08 07:36] LABS: Glucose, Whole Blood 241 mg/dL (60-115)
[2022-09-08] MEDS: Insulin Lispro 100 UNIT/ML 3 ML VIAL SUBCUT ×2 (07:52→11:58)
[2022-09-08] MEDS: 0.9 % Sodium Chloride Flush 3 ML SYRINGE IVFLUSH (08:03)
--- NOTE | 2022-09-08 08:38 | PHA.MEDREC ---
Pharmacy Consult ? Medication Reconciliation Pharmacy has completed the medication reconciliation. Spoke to patient at bedside, lexie historbruce
[2022-09-08] MEDS: Nicotine 21 MG PATCH.TD24 TRANSDERMA (08:48)
[2022-09-08] MEDS: Potassium Chloride Packet 20 MEQ PACKET 40 MEQ PO (08:48)
[2022-09-08 09:02] LABS: Magnesium 1.8 mg/dL (1.6-2.6)
[2022-09-08 11:51] LABS: Glucose, Whole Blood 223 mg/dL (60-115)
--- NOTE | 2022-09-08 13:24 | P.CONCA_ITS ---
History of Present Illness History of Present Illness Date of Service: 09/08/22 Requesting physician: Kenn Travis Chief complaint: CHF Exacerbation Narrative: 42-year-old female with background history of congestive heart failure and hypertension who is presenting with shortness of breath. Her blood pressure was significantly elevated on admission. She has known history of hypertensive heart disease and congestive heart failure and follows closely with Dr. Ventura and Dr Perla. She recently had a CardioMEMS placed. She is saying she has not been on diur etics. She has been taking care of a friend who was at the end of his life who few days ago. She has had over the last few weeks she has not been compliant with her medications and she probably Mr. Medications more frequently than usual. Due to this she had significantly elevated blood pressure the radial 230 systolic and came to emergency department with shortness of breath. She was started on oral medications and her blood pressure was treated at right now blood pressure control is quite good. She is saying she is feeling better. She is still short of breath but clinically does not look volume overloaded. [facility] Past Medical History Medical History Anxiety Bipolar 1 disorder Cardiomyopathy CKD (chronic kidney disease) CKD (chronic kidney disease) stage 2, GFR 60-89 ml/min Diabetes mellitus Eclampsia Fatty liver H/O mixed connective tissue disease Heart block AV second degree Heart failure, unspecified (~09/2020) High cholesterol History of DVT (deep vein thrombosis) HTN (hypertension) Hypersomnia Lupus Malignant hypertension Migraines Nicotine dependence, cigarettes, uncomplicated (~1999) PTSD (post-traumatic stress disorder) Rheumatoid arthritis Sjogren's disease Family History Family History Father Substance use disorder Mental health disorder Brother Substance use disorder Mental health disorder Brother Substance use disorder Mental health disorder Other Diabetes HTN (hypertension) Surgical History Surgical History History of bronchoscopy (~11/2020) History of cholecystectomy (~05/2014) History of hysterectomy Social History Social History Household Members: Children Household Members Other:: 3 Housing: House Are you a primary career counselor to a significant other at home: No Do you presently have visiting nurse or other home services: No Alcohol intake: former Patient Tobacco Use Status: Never used Tobacco Tobacco use type: Cigarette Cigarette Packs Per Day: 0.5 Cigarettes Per Day: 10 Years Smoked: 20 e-Cigarette/Vaping Use: Never Used Second Hand Smoke Exposure: No Substance Use Type: Marijuana Advance Directives Date on File: 06/03/21 service: No Current occupational status: disabled Cognitive needs: No Hearing needs: No Vision needs: No Meds Allergies Allergy/AdvReac Type Severity Reaction Status Date / Time amoxicillin Allergy Unknown rash Verified 09/07/22 16:26 cefaclor [From Ceclor] Allergy Unknown RASH Verified 09/07/22 16:26 cephalexin Allergy Unknown rash Verified 09/07/22 16:26 Cephalosporins Allergy Unknown RASH ALL Verified 09/07/22 16:26 [CEPHALOSPORINS] OVER cephradine [From VELOSEF] Allergy Unknown RASH Verified 09/07/22 16:26 Penicillins [PENICILLINS] Allergy Unknown RASH Verified 09/07/22 16:26 gabapentin [GABAPENTIN] AdvReac Unknown RESTLESS Verified 09/07/22 16:26 LEGS, Body becomes very uncomfortable Home Medications Medication Instructions Recorded Confirmed Last Taken Type clonazepam 1 mg tablet 1 tab PO DAILY PRN anxiety 01/27/22 09/08/22 09/07/22 History carvedilol 25 mg tablet 50 mg PO BID 03/20/22 09/08/22 09/07/22 History nifedipine 90 mg tablet,extended 1 tab PO BID 04/22/22 09/08/22 09/07/22 History release 24 hr dulaglutide 1.5 mg/0.5 mL 1.5 mg subcut TH 05/28/22 09/08/22 09/04/22 History subcutaneous pen injector (Trulicity) nicotine 21 mg/24 hr daily 1 patch transdermal DAILY 05/28/22 09/08/22 09/07/22 History transdermal patch torsemide 20 mg tablet 2 tab PO DAILY PRN Edema 05/28/22 09/08/22 09/07/22 History sacubitril 97 mg-valsartan 103 mg 1 tab PO BID 08/20/22 09/08/22 09/07/22 History tablet (Entresto) amitriptyline 10 mg tablet 10 mg PO BEDTIME 09/08/22 09/08/22 09/07/22 History dapagliflozin 10 mg-metformin ER 1 tab PO DAILY 09/08/22 09/08/22 09/07/22 History 1,000 mg tablet,extended release 24hr (Xigduo XR) hydralazine 50 mg tablet 50 mg PO BID 09/08/22 09/08/22 09/07/22 History Physical Exam Vital Signs: Vital Signs: Last Vital Signs Temp 98.4 F 09/08/22 05:51 Pulse 69 09/08/22 05:51 Resp 21 H 09/08/22 05:51 BP 125/66 09/08/22 05:51 Pulse Ox 94 09/08/22 05:51 O2 Del Method Room Air 09/08/22 05:51 BMI result Body Mass Index 28.5 GENERAL APPEARANCE: in no acute distress, pleasant. NECK: no carotid bruit, no jugular venous distention. SKIN: no suspicious lesions, warm and dry. HEART: no murmurs, regular rate and rhythm. LUNGS: clear to auscultation bilaterally. ABDOMEN: soft, nontender. EXTREMITIES: no edema. PERIPHERAL PULSES: equal. NEUROLOGIC: No gross deficits, AAO X 3 Objective Labs and Meds 09/07/22 17:09 09/08/22 04:57 Lab results: Laboratory Results - last 24 hr 09/07/22 09/07/22 09/07/22 17:09 17:09 17:09 WBC 11.0 H RBC 3.03 L Hgb 9.5 L Hct 26.4 L MCV 87.1 MCH 31.4 MCHC 36.0 H RDW 16.6 H Plt Count 287 MPV 10.0 Immature Gran % (Auto) 0.4 Neut % (Auto) 78.0 H Lymph % (Auto) 13.6 L Henry % (Auto) 5.2 Eos % (Auto) 2.3 Baso % (Auto) 0.5 Lymph # (Auto) 1.5 Henry # (Auto) 0.6 Eos # (Auto) 0.3 Baso # (Auto) 0.1 Abs Immat Gran (auto) 0.04 H Absolute Neuts (auto) 8.6 H Absolute Nucleated RBC 0.000 Nucleated RBC % (auto) 0.0 Sodium 136 Potassium 3.5 D Chloride 101 Carbon Dioxide 25 Anion Gap 14 BUN 34 H Creatinine 2.69 H Estim Creat Clear Calc 30.7 Estimated GFR 20 POC Glucose Random Glucose 206 H Calcium 8.4 D Magnesium Total Bilirubin AST ALT Alkaline Phosphatase Troponin I High Sens 104.4 H* D B-Natriuretic Peptide Total Protein Albumin Urine Color Urine Appearance Urine pH Ur Specific [place] Urine Protein Urine Glucose (UA) Urine Ketones Urine Blood Urine Nitrite Ur Leukocyte Esterase Urine RBC Urine WBC Ur Squamous Epith Cells Urine Bacteria Hyaline Casts 09/07/22 09/07/22 09/07/22 17:09 17:25 20:04 WBC RBC Hgb Hct MCV MCH MCHC RDW Plt Count MPV Immature Gran % (Auto) Neut % (Auto) Lymph % (Auto) Henry % (Auto) Eos % (Auto) Baso % (Auto) Lymph # (Auto) Henry # (Auto) Eos # (Auto) Baso # (Auto) Abs Immat Gran (auto) Absolute Neuts (auto) Absolute Nucleated RBC Nucleated RBC % (auto) Sodium Potassium Chloride Carbon Dioxide Anion Gap BUN Creatinine Estim Creat Clear Calc Estimated GFR POC Glucose Random Glucose Calcium Magnesium Total Bilirubin AST ALT Alkaline Phosphatase Troponin I High Sens 112.2 H* B-Natriuretic Peptide 4434 H Total Protein Albumin Urine Color Yellow Urine Appearance Clear Urine pH 6.5 Ur Specific [place] 1.010 Urine Protein 300 (3+) H Urine Glucose (UA) 500 H Urine Ketones Negative Urine Blood Negative Urine Nitrite Negative Ur Leukocyte Esterase Negative Urine RBC 0-2 Urine WBC 0-5 Ur Squamous Epith Cells 0-2 Urine Bacteria None Seen Hyaline Casts 0-2 09/08/22 09/08/22 09/08/22 04:57 07:32 11:47 WBC RBC Hgb Hct MCV MCH MCHC RDW Plt Count MPV Immature Gran % (Auto) Neut % (Auto) Lymph % (Auto) Henry % (Auto) Eos % (Auto) Baso % (Auto) Lymph # (Auto) Henry # (Auto) Eos # (Auto) Baso # (Auto) Abs Immat Gran (auto) Absolute Neuts (auto) Absolute Nucleated RBC Nucleated RBC % (auto) Sodium 136 Potassium 3.1 L Chloride 102 Carbon Dioxide 26 Anion Gap 11 L BUN 32 H Creatinine 2.84 H Estim Creat Clear Calc 29.1 Estimated GFR 18 POC Glucose 241 H 223 H Random Glucose 238 H Calcium 8.4 Magnesium 1.8 Total Bilirubin 1.4 H AST 11 ALT 18 Alkaline Phosphatase 134 H Troponin I High Sens B-Natriuretic Peptide Total Protein 5.2 L Albumin 3.1 L Urine Color Urine Appearance Urine pH Ur Specific [place] Urine Protein Urine Glucose (UA) Urine Ketones Urine Blood Urine Nitrite Ur Leukocyte Esterase Urine RBC Urine WBC Ur Squamous Epith Cells Urine Bacteria Hyaline Casts Imaging Radiologist's impression: Impressions Chest X-Ray 09/07/22 19:31 IMPRESSION: No acute intrathoracic disease. Assessment and Plan (1) Hypertensive urgency: Status: Acute (2) CHF (congestive heart failure): Status: Acute Plan 42-year-old female with known history of uncontrolled hypertension and congestive heart failure presenting with shortness of breath in setting of elev ated blood pressures. Clinically was in heart failure but not significantly volume overloaded. I think the cause for congestive heart failure was significantly elevated blood pressure. She does not look volume overloaded and does not need diuretics. Blood pressure control is better after resuming her home medications. She will continue her home medications as before. We had a detailed discussion about compliance medications and the fact that she has uncontrolled hypertension and if she is not compliant her blood pressure may rise and she may end up in the emergency department again. She understands the consequences and will be taking medications regularly. She will follow-up with her head buyer tobacco as before. Signing off. Thank you for allowing me to participate in the care of your patient. Please feel free to contact me if you have any questions. Time Spent With Patient Time: Total time managing care of this patient today ____ minutes. Procedures Date of Service Date of Service: 09/08/22
--- NOTE | 2022-09-08 14:19 | MHC.CM.PN ---
Patient discharged before being seen by case management.
--- NOTE | 2022-09-16 12:37 | P.DS_ITS ---
DS: Providers Provider Date of Service: 09/08/22 Date of admission: 09/07/22 23:36 Primary care physician: TWILA Benitez Consults: 09/07/22 23:42 Consult to Cardiology Routine Consulting Provider: [facility] [place] [facility] Reason for consultation: CHF Has provider been notified: No DS: Diagnosis Discharge Diagnosis (1) Hypertensive urgency: Status: Acute (2) CHF (congestive heart failure): Status: Acute DS: Summary Hospital Course Hospital Course: Date of service and discharge:09/08/22. hpi: please see h&p. Hospital course: Patient was admitted for uncontrolled hypertension and possible mild CHF - patient IV diuretics and IV blood pressure medications: Subsequently blood pressure seems to be improved also currently patient is asymptomatic. Denies any shortness of breath or chest pain. Seen by Cardiology: Recommended to continue patient's home medications and patient can go home. CHF education given. If weight gain 2 or more lb a week please call PCP outpatient. Monitor blood pressure closely outpatient . Follow-up with Cardiology outpatient. plan: Strongly advised to compliant with blood pressure medications and diuretics. CHF education given. If weight gain 2 or more lb a week please call PCP outpatient. Cardiology may arrange their own appointment. Above management discussed with the patient in detail length she understand and in agreement with the above plan, time spent 50 minutes and 50% time spent on counseling. Time Spent with Patient Time attestation: Total time managing care of this patient today ____ minutes. Discharge coordination time: Greater than 30 minutes Quality: Safe Use of Opioids Does Pt have an Active Cancer Diagnosis on the Problem List?: No Quality: Stroke Does the patient have a stroke diagnosis?: No Physical Exam Vital Signs: Vital Signs: Last Vital Signs Temp 98.4 F 09/08/22 05:51 Pulse 69 09/08/22 05:51 Resp 21 H 09/08/22 05:51 BP 125/66 09/08/22 05:51 Pulse Ox 94 09/08/22 05:51 O2 Del Method Room Air 09/08/22 05:51 BMI result Body Mass Index 28.5 Appearance: Alert.? Oriented X3.? not in distress.?. cvs: rrr, [id number] . res: clear to auscultation ,no rhonchii or wheezing abd: no rebound or guarding ,nt, bs present. ext pulses present , no cyanosis . neuro: axo3 , nonfocal. DS: Data Data Completed and Pending Completed studies during hospitalization [Text1]: Procedures Drainage of Left Knee Joint, Percutaneous Approach (01/07/21) Imaging Chest x-ray: Radiologist's impression: ITS Impressions Chest X-Ray 09/07/22 19:31 IMPRESSION: No acute intrathoracic disease. Discharge Plan Discharge Anticipated Discharge Date/Time: 09/08/22 12:06 Patient Disposition: Home, Self-Care Discharge Diagnosis: Uncontrolled hypertension, possible mild CHF Referrals: Mauricio Nolasco, [employer] [Primary Care Provider] - 1 Week Discharge Medications: Continued aspirin 81 mg tablet,delayed release (DR/EC) 81 mg PO DAILY 90 Days Qty: 90 1RF (DME) blood-glucose meter [FreeStyle Lite Meter] Kit See Rx Instructions .Route Qty: 1 0RF Rx Instructions: As directed tests 4 X/day (DME) FreeStyle Lite Strips Strip See Rx Instructions .Route Qty: 100 5RF Rx Instructions: As directed- tests 4X/day (DME) lancets [FreeStyle Lancets] 28 gauge misc See Rx Instructions .Route Qty: 100 4RF Rx Instructions: As directed- tests 4X/day (DME) blood pressure test kit-large Kit See Rx Instructions .Route Qty: 1 0RF Rx Instructions: daily use albuterol sulfate 90 mcg/actuation HFA aerosol inhaler 1 inh inhalation QID PRN (Reason: Wheezing) 30 Days Qty: 8.5 1RF omeprazole 20 mg capsule,delayed release(DR/EC) 20 mg PO DAILY@0630 PRN (Reason: Heartburn) Qty: 20 2RF clonazepam 1 mg tablet 1 tab PO DAILY PRN (Reason: anxiety) carvedilol 25 mg tablet 50 mg PO BID nifedipine 90 mg tablet extended release 24hr 1 tab PO BID torsemide 20 mg tablet 2 tab PO DAILY PRN (Reason: Edema) nicotine 21 mg/24 hr Patch 24 Hour 1 patch TRANSDERMAL DAILY Trulicity 1.5 mg/0.5 mL Pen Injector 1.5 mg SUBCUT TH hydralazine 50 mg tablet 50 mg PO BID Xigduo XR 10-1,000 mg tablet, IR - ER, biphasic 24hr 1 tab PO DAILY amitriptyline 10 mg tablet 10 mg PO BEDTIME Entresto 97-103 mg tablet 1 tab PO BID Discharge Orders: Discharge Order (Routine); Ordered 09/08/22 Ordered By: Kenn Travis Diet: Diabetic diet Activity on Discharge: As tolerated Stand Alone Forms: Patient Portal Discharge page Care Plan Goals: Patient was admitted for uncontrolled hypertension and possible mild CHF - patient IV ABX and IV blood pressure medications: Subsequently blood pressure seems to be improved also currently patient is asymptomatic. Denies any shortness of breath or chest pain. Seen by Cardiology: Recommended to continue patient's home medications and patient can go home. CHF education given. If weight gain 2 or more lb a week please call PCP outpatient. Monitor blood pressure closely outpatient . Follow-up with Cardiology outpatient. Health Concerns: As above. Plan of Treatment: As above. Assessment: As above. Discharge Date/Time: 09/08/22 12:30
== END 2022-09-08 12:30 | disposition home or self-care (01) | DRG 291 ==
LOC: HO.ED 09-08 01:20 → HO.EDOVER 09-08 01:27
PROVIDERS: Admitting Provider Internal Medicine; Emergency Provider Emergency Medicine; PCP Nurse Practitioner Family; Visit Provider Internal Medicine
DX: I13.0 Hypertensive heart and chronic kidney disease with heart failure and stage 1 through stage 4 chronic kidney disease, or unspecified chronic kidney disease (principal); I50.23 Acute on chronic systolic (congestive) heart failure; Z95.811 Presence of heart assist device; I16.0 Hypertensive urgency; E11.22 Type 2 diabetes mellitus with diabetic chronic kidney disease; N18.30 Chronic kidney disease, stage 3 unspecified; E11.65 Type 2 diabetes mellitus with hyperglycemia; F31.9 Bipolar disorder, unspecified; E78.00 Pure hypercholesterolemia, unspecified; M32.9 Systemic lupus erythematosus, unspecified; M06.9 Rheumatoid arthritis, unspecified; M35.00 Sjogren syndrome, unspecified; Z91.148 Patient's other noncompliance with medication regimen for other reason; Z79.899 Other long term (current) drug therapy
CPT/HCPCS: 36415; 71045; 80048; 80053; 81001; 82947; 83735; 83880; 84484; 85025; 93005; 99285; J1650; J1940

== ENCOUNTER 2022-10-11 10:18 | Observation (INO) | payer MEDICARE, MEDICAID, SELFPAY ==
[2021-09-27 11:09] VITALS: BP 190/120; BMI 29.0
[2022-10-11 10:24] VITALS: BP 167/96; PULSE 84; RESP 16; TEMP 37.4; O2SAT 95; BMI 32.3
--- NOTE | 2022-10-11 11:03 | ED.GENADULT ---
HPI - General Adult General Chief complaint: Dyspnea Stated complaint: SOB Time Seen by Provider: 10/11/22 10:44 Source: patient and EMS Mode of arrival: EMS Limitations: no limitations History of Present Illness HPI narrative: This is a 42-year-old female with complicated history of hypertension and congestive heart failure, patient also is a daily cigarette smoker diagnosed in the past with bronchitis presented today with shortness of breath and tightness in the chest, CHF symptoms has been controlled well lately patient only use diuresis if she gained more than 4 lb and difficulty breathing. No fever, no chills, no lower extremity swelling or edema. With Clear sputum productive cough. Related Data Home Medications Medication Instructions Recorded Confirmed clonazepam 1 mg tablet 1 tab PO DAILY PRN anxiety 01/27/22 09/08/22 carvedilol 25 mg tablet 50 mg PO BID 03/20/22 09/08/22 nifedipine 90 mg tablet,extended 1 tab PO BID 04/22/22 09/08/22 release 24 hr dulaglutide 1.5 mg/0.5 mL 1.5 mg subcut TH 05/28/22 09/08/22 subcutaneous pen injector (Trulicity) nicotine 21 mg/24 hr daily 1 patch transdermal DAILY 05/28/22 09/08/22 transdermal patch torsemide 20 mg tablet 2 tab PO DAILY PRN Edema 05/28/22 09/08/22 sacubitril 97 mg-valsartan 103 mg 1 tab PO BID 08/20/22 09/08/22 tablet (Entresto) amitriptyline 10 mg tablet 10 mg PO BEDTIME 09/08/22 09/08/22 dapagliflozin 10 mg-metformin ER 1 tab PO DAILY 09/08/22 09/08/22 1,000 mg tablet,extended release 24hr (Xigduo XR) hydralazine 50 mg tablet 50 mg PO BID 09/08/22 09/08/22 Previous Rx's Medication Instructions Recorded blood sugar diagnostic (FreeStyle #100 ea 03/20/22 Lite Strips) blood-glucose meter (FreeStyle #1 ea 03/20/22 Lite Meter kit) lancets 28 gauge (FreeStyle #100 ea 03/20/22 Lancets) blood pressure test kit-large #1 ea 03/25/22 albuterol sulfate 90 mcg/actuation 1 inh inhalation QID PRN Wheezing 06/24/22 aerosol inhaler 30 days #8.5 grams omeprazole 20 mg capsule,delayed 20 mg PO DAILY@0630 PRN Heartburn 08/09/22 release #20 caps aspirin 81 mg tablet,delayed 81 mg PO DAILY 90 days #90 tabs 09/18/22 release Allergies Allergy/AdvReac Type Severity Reaction Status Date / Time amoxicillin Allergy Unknown rash Verified 09/07/22 16:26 cefaclor [From Ceclor] Allergy Unknown RASH Verified 09/07/22 16:26 cephalexin Allergy Unknown rash Verified 09/07/22 16:26 Cephalosporins Allergy Unknown RASH ALL Verified 09/07/22 16:26 [CEPHALOSPORINS] OVER cephradine [From VELOSEF] Allergy Unknown RASH Verified 09/07/22 16:26 Penicillins [PENICILLINS] Allergy Unknown RASH Verified 09/07/22 16:26 gabapentin [GABAPENTIN] AdvReac Unknown RESTLESS Verified 09/07/22 16:26 LEGS, Body becomes very uncomfortable Review of Systems Review of Systems: All other systems are reviewed and are negative Constitutional: Reports as per HPI and Reports no additional constitutional complaints Eyes: Reports as per HPI and Reports no additional eye complaints Reports system reviewed and no additional complaints, except as documented Cardiovascular: Reports as per HPI and Reports no additional cardiovascular complaints Respiratory: Reports as per HPI and Reports no additional respiratory complaints Gastrointestinal: Reports as per HPI and Reports no additional gastrointestinal complaints Genitourinary: Reports no additional female genitourinary complaints Musculoskeletal: Reports no additional musculoskeletal complaints Skin/Breast: Reports system reviewed and no additional complaints, except as docu Psychiatric: Reports no additional psychiatric complaints Endocrine: Reports no additional endocrine complaints Hematologic/Lymphatic: Reports no additional hematologic/lymphatic complaints Allergic/Immunologic: Reports no additional allergic/immunologic complaints Reports system reviewed and no additional complaints, except as documented and Reports Abnormal speech present ON LICENSE OF [facility] Past Medical History Medical History Anxiety Bipolar 1 disorder Cardiomyopathy CKD (chronic kidney disease) CKD (chronic kidney disease) stage 2, GFR 60-89 ml/min Diabetes mellitus Eclampsia Fatty liver H/O mixed connective tissue disease Heart block AV second degree Heart failure, unspecified (~09/2020) High cholesterol History of DVT (deep vein thrombosis) HTN (hypertension) Hypersomnia Lupus Malignant hypertension Migraines Nicotine dependence, cigarettes, uncomplicated (~1999) PTSD (post-traumatic stress disorder) Rheumatoid arthritis Sjogren's disease Surgical History History of bronchoscopy (~11/2020) History of cholecystectomy (~05/2014) History of hysterectomy Family History Family History Father Substance use disorder Mental health disorder Brother Substance use disorder Mental health disorder Brother Substance use disorder Mental health disorder Other Diabetes HTN (hypertension) Social History Social History Household Members: Children Household Members Other:: 3 Housing: House Are you a primary adult caregiver to a significant other at home: No Do you presently have visiting nurse or other home services: No Alcohol intake: never Patient Tobacco Use Status: Never used Tobacco Tobacco use type: Cigarette Cigarette Packs Per Day: 0.5 Cigarettes Per Day: 10 Years Smoked: 20 Smoked in Last 30 Days: Yes e-Cigarette/Vaping Use: Never Used Second Hand Smoke Exposure: No Substance Use Type: Marijuana Advance Directives: Yes Advance Directives Date on File: 06/03/21 service: No Current occupational status: disabled Cognitive needs: No Hearing needs: No Vision needs: No Physical Exam ED Vital Signs: Vital Signs - 24 hr 10/11/22 10:24 10/11/22 11:20 10/11/22 11:56 Temperature 99.3 F 98.9 F Pulse Rate 84 81 81 Respiratory Rate 16 17 24 H Blood Pressure 167/96 H 141/82 H Pulse Oximetry 95 97 Oxygen Delivery Method Room Air Room Air BMI result Body Mass Index 32.3 Vital signs have been reviewed as appeared to be correct. Blood pressure normal. Heart rate normal. Respiration rate normal. Temperature normal. Oxygen saturation normal. Appearance: Alert. Oriented X3. No acute distress. Head: Normal external exam. Normocephalic. Atraumatic. No Chase signs noted. No raccoon eyes noted Eyes: PERRLA. EOMI. Conjunctiva and sclera normal. Eyelids normal. ENT: TM's Normal. Pharynx normal. Uvula midline. Moist mucous membranes. No trismus noted. No drooling noted. No muffled voice noted. Neck: Normal inspection. Neck supple. FROM. No adenopathy. Thyroid Normal. No meningeal signs. No neck mass noted. CVS: Normal heart rate and rhythm. Heart sound normal. No murmurs noted. Pulses normal throughout. Respiratory: No respiratory distress. Painless inspiration. Breath sounds normal. Diffuse bilateral mild expiratory wheezing with prolonged expiration. Chest nontender. No accessory muscle usage noted or decreased air movement noted. Abdomen: Soft and nontender. Bowel sounds normal in all 4 quadrants. No distention noted. No organomegaly noted. No visible injury noted. Back: No CVA tenderness. Full range of motion noted. Skin: Skin warm and dry. Normal skin color. Normal skin turgor. No rashes/lesions/lacerations noted. Extremities: No lower extremity edema. Extremities exhibit normal range of motion. Extremities nontender. Neuro: Oriented X 3. Cranial nerve exam: II-XII are grossly intact No motor deficit. No sensory deficit. Reflexes normal. Course Course Course Narrative: 42-year-old female with CHF/bronchitis with patient received Lasix and nitro with bronchodilator and Solu-Medrol hyperglycemia in the ED will control with insulin. Medications Administered Discontinued Medications Generic Name Dose Route Start Last Admin Trade Name Freq PRN Reason Stop Dose Admin Albuterol Sulfate 5 mg 10/11/22 10:59 10/11/22 11:16 Albuterol Sulfate (0.083%) 2.5 Mg/3 Ml Vial.Neb INHALE 10/11/22 11:00 5 mg ONCE ONE Administration Albuterol/Ipratropium 3 ml 10/11/22 10:59 10/11/22 11:17 Albuterol/Iprat 2.5/0.5mg 3 Ml Ampul.Neb INHALE 10/11/22 11:00 3 ml ONCE ONE Administration Furosemide 40 mg 10/11/22 11:47 10/11/22 11:52 Furosemide 40 Mg/4 Ml Vial IVPUSH 10/11/22 11:48 40 mg ONCE ONE Administration Protocol Magnesium Sulfate 2 gm in 50 mls @ 25 mls/hr 10/11/22 11:01 10/11/22 11:15 Magnesium Sulfate/H2o IV 10/11/22 13:00 25 mls/hr ONCE ONE Administration Methylprednisolone Sodium Succinate 125 mg 10/11/22 10:59 10/11/22 11:16 Methylprednisolone Sod Succ 125 Mg/2 Ml Vial IVPUSH 10/11/22 11:00 125 mg ONCE ONE Administration Nitroglycerin 0.5 inch 10/11/22 11:47 10/11/22 11:52 Nitroglycerin 2 % Oint 1 Gm Packet TRANSDERMA 10/11/22 11:48 0.5 inch ONCE ONE Administration Medical Decision Making Differential Diagnosis Differential Diagnoses: The differential diagnosis associated with the presentation includes (CHF, ACS, acute bronchitis, pneumonia, pneumothorax, pleural effusion, electrolyte abnormalities, severe anemia.) Admission/Observation Consideration of admission/observation: Escalation of care including admission/observation considered Consult Healthcare Provider Management of the patient was discussed with: Hospitalist (Dr. Silva) Lab Data MDM Lab Attestation statement: I reviewed the patient's lab results. 10/11/22 11:10 10/11/22 11:10 Labs: Lab Results 10/11/22 10/11/22 10/11/22 Range/Units 10:31 11:10 11:10 WBC 9.4 (4.8-10.8) X10*3/uL RBC 3.33 L (4.20-5.50) X10*6/uL Hgb 10.7 L (12.0-16.0) g/dl Hct 30.4 L (37.0-47.0) % MCV 91.3 (80.0-98.0) fL MCH 32.1 (27.0-33.0) pg MCHC 35.2 H (31.0-35.0) g/dl RDW 15.2 (11.0-16.0) % Plt Count 299 (160-400) X10*3/uL MPV 9.6 (9.4-12.3) fL Immature Gran % (Auto) 0.2 (0.0-0.4) % Neut % (Auto) 82.9 H (45-73) % Lymph % (Auto) 8.0 L (20-40) % [place] % (Auto) 6.3 (2-11) % Eos % (Auto) 2.1 (0-4) % Baso % (Auto) 0.5 (0-2) % Lymph # (Auto) 0.8 L (1.2-4.9) X10*3/uL [place] # (Auto) 0.6 (0.1-1.2) X10*3/uL Eos # (Auto) 0.2 (0.0-0.4) X10*3/uL Baso # (Auto) 0.1 (0.0-0.2) X10*3/uL Abs Immat Gran (auto) 0.02 (0.00-0.03) X10*3/uL Absolute Neuts (auto) 7.8 (2.0-8.3) x10*3/uL Absolute Nucleated RBC 0.000 (0.0-0.012) X10*3/uL Nucleated RBC % (auto) 0.0 (0.0-0.2) /100WBC Sodium 136 (135-145) mmol/L Potassium 4.4 D (3.3-5.1) mmol/L Chloride 107 (96-108) mmol/L Carbon Dioxide 21 L (22-29) mmol/L Anion Gap 12 (12-20) BUN 35 H (9-16) mg/dL Creatinine 2.68 H (0.5-1.4) mg/dL Estim Creat Clear Calc 30.5 Estimated GFR 20 POC Glucose 338 H (60-115) mg/dL Random Glucose 357 H* (60-115) mg/dL Calcium 9.2 D (8.4-10.2) mg/dL Total Bilirubin 1.1 H (0.0-1.0) mg/dL Direct Bilirubin 0.3 (0.0-0.5) mg/dL AST 14 (5-31) U/L ALT 23 (0-31) U/L Alkaline Phosphatase 137 H (39-117) U/L Troponin I High Sens (<3.5-17.0) ng/L B-Natriuretic Peptide (<100) pg/mL Total Protein 6.0 L (6.5-8.0) g/dL Albumin 3.6 (3.5-5.0) g/dL Lipase 13 (8-78) U/L Urine Color Urine Appearance Urine pH (5.0-9.0) Ur Specific [place] (1.005-1.025) Urine Protein (Neg-Trace) mg/dL Urine Glucose (UA) (Negative) mg/dL Urine Ketones (Negative) mg/dL Urine Blood (Negative) Urine Nitrite (Negative) Ur Leukocyte Esterase (Negative) Urine RBC (0-2) /HPF Urine WBC (0-5) /HPF Ur Squamous Epith Cells (0-2) /HPF Urine Bacteria (None Seen) Hyaline Casts (0-2) /LPF Influenza Type A (PCR) (Negative) Influenza Type B (PCR) (Negative) RSV RNA Qual (PCR) (Negative) SARS-CoV-2 RNA (RT-PCR) (Negative) 10/11/22 10/11/22 10/11/22 Range/Units 11:10 11:10 11:10 WBC (4.8-10.8) X10*3/uL RBC (4.20-5.50) X10*6/uL Hgb (12.0-16.0) g/dl Hct (37.0-47.0) % MCV (80.0-98.0) fL MCH (27.0-33.0) pg MCHC (31.0-35.0) g/dl RDW (11.0-16.0) % Plt Count (160-400) X10*3/uL MPV (9.4-12.3) fL Immature Gran % (Auto) (0.0-0.4) % Neut % (Auto) (45-73) % Lymph % (Auto) (20-40) % [place] % (Auto) (2-11) % Eos % (Auto) (0-4) % Baso % (Auto) (0-2) % Lymph # (Auto) (1.2-4.9) X10*3/uL [place] # (Auto) (0.1-1.2) X10*3/uL Eos # (Auto) (0.0-0.4) X10*3/uL Baso # (Auto) (0.0-0.2) X10*3/uL Abs Immat Gran (auto) (0.00-0.03) X10*3/uL Absolute Neuts (auto) (2.0-8.3) x10*3/uL Absolute Nucleated RBC (0.0-0.012) X10*3/uL Nucleated RBC % (auto) (0.0-0.2) /100WBC Sodium (135-145) mmol/L Potassium (3.3-5.1) mmol/L Chloride (96-108) mmol/L Carbon Dioxide (22-29) mmol/L Anion Gap (12-20) BUN (9-16) mg/dL Creatinine (0.5-1.4) mg/dL Estim Creat Clear Calc Estimated GFR POC Glucose (60-115) mg/dL Random Glucose (60-115) mg/dL Calcium (8.4-10.2) mg/dL Total Bilirubin (0.0-1.0) mg/dL Direct Bilirubin (0.0-0.5) mg/dL AST (5-31) U/L ALT (0-31) U/L Alkaline Phosphatase (39-117) U/L Troponin I High Sens 11.3 D (<3.5-17.0) ng/L B-Natriuretic Peptide 3758 H (<100) pg/mL Total Protein (6.5-8.0) g/dL Albumin (3.5-5.0) g/dL Lipase (8-78) U/L Urine Color Urine Appearance Urine pH (5.0-9.0) Ur Specific [place] (1.005-1.025) Urine Protein (Neg-Trace) mg/dL Urine Glucose (UA) (Negative) mg/dL Urine Ketones (Negative) mg/dL Urine Blood (Negative) Urine Nitrite (Negative) Ur Leukocyte Esterase (Negative) Urine RBC (0-2) /HPF Urine WBC (0-5) /HPF Ur Squamous Epith Cells (0-2) /HPF Urine Bacteria (None Seen) Hyaline Casts (0-2) /LPF Influenza Type A (PCR) NEGATIVE (Negative) Influenza Type B (PCR) NEGATIVE (Negative) RSV RNA Qual (PCR) NEGATIVE (Negative) SARS-CoV-2 RNA (RT-PCR) NEGATIVE (Negative) 10/11/22 10/11/22 Range/Units 12:22 12:30 WBC (4.8-10.8) X10*3/uL RBC (4.20-5.50) X10*6/uL Hgb (12.0-16.0) g/dl Hct (37.0-47.0) % MCV (80.0-98.0) fL MCH (27.0-33.0) pg MCHC (31.0-35.0) g/dl RDW (11.0-16.0) % Plt Count (160-400) X10*3/uL MPV (9.4-12.3) fL Immature Gran % (Auto) (0.0-0.4) % Neut % (Auto) (45-73) % Lymph % (Auto) (20-40) % [place] % (Auto) (2-11) % Eos % (Auto) (0-4) % Baso % (Auto) (0-2) % Lymph # (Auto) (1.2-4.9) X10*3/uL [place] # (Auto) (0.1-1.2) X10*3/uL Eos # (Auto) (0.0-0.4) X10*3/uL Baso # (Auto) (0.0-0.2) X10*3/uL Abs Immat Gran (auto) (0.00-0.03) X10*3/uL Absolute Neuts (auto) (2.0-8.3) x10*3/uL Absolute Nucleated RBC (0.0-0.012) X10*3/uL Nucleated RBC % (auto) (0.0-0.2) /100WBC Sodium (135-145) mmol/L Potassium (3.3-5.1) mmol/L Chloride (96-108) mmol/L Carbon Dioxide (22-29) mmol/L Anion Gap (12-20) BUN (9-16) mg/dL Creatinine (0.5-1.4) mg/dL Estim Creat Clear Calc Estimated GFR POC Glucose 356 H* (60-115) mg/dL Random Glucose (60-115) mg/dL Calcium (8.4-10.2) mg/dL Total Bilirubin (0.0-1.0) mg/dL Direct Bilirubin (0.0-0.5) mg/dL AST (5-31) U/L ALT (0-31) U/L Alkaline Phosphatase (39-117) U/L Troponin I High Sens (<3.5-17.0) ng/L B-Natriuretic Peptide (<100) pg/mL Total Protein (6.5-8.0) g/dL Albumin (3.5-5.0) g/dL Lipase (8-78) U/L Urine Color Yellow Urine Appearance Clear Urine pH 6.5 (5.0-9.0) Ur Specific [place] 1.015 (1.005-1.025) Urine Protein 100 (2+) H (Neg-Trace) mg/dL Urine Glucose (UA) >=1000 H (Negative) mg/dL Urine Ketones Negative (Negative) mg/dL Urine Blood Negative (Negative) Urine Nitrite Negative (Negative) Ur Leukocyte Esterase Trace H (Negative) Urine RBC 0-2 (0-2) /HPF Urine WBC 11-20 H (0-5) /HPF Ur Squamous Epith Cells 11-20 (0-2) /HPF Urine Bacteria 2+ (None Seen) Hyaline Casts 0-2 (0-2) /LPF Influenza Type A (PCR) (Negative) Influenza Type B (PCR) (Negative) RSV RNA Qual (PCR) (Negative) SARS-CoV-2 RNA (RT-PCR) (Negative) Independent Interpretation I performed an independent interpretation of an: Plain X-Ray (Chest: No acute intrathoracic pathology.) Radiology Impression Discussion of test interpretation with radiology: I have reviewed the radiologist's reading. Chronic Conditions Patient?s care impacted by: Hypertension and Other (CHF, smoking.) Critical Care Time Critical Care Time Critical Care Time: Yes Total Critical Care Time: 60 Attestation: I spent 60 minutes providing critical care service to the patient, this including time spent at the bedside to evaluate the patient, reassess the patient, monitoring vital signs, review labs, and radiographic studies, counseling the patient/family, discussing the case with consultants, disposition the patient. Discharge Plan Discharge Clinical Impression: CHF (congestive heart failure), Hyperglycemia Patient Disposition: Admitted As Inpatient
[2022-10-11 11:20] VITALS: PULSE 81; RESP 17; O2SAT 95
--- NOTE | 2022-10-11 11:49 | PC.NURSE ---
Pt reported pain as a 10 on a scale of 0-10, pain feels like tightness on inhalation. Wheezing heard posterior, throughout left and right side, worse on inhalation.
[2022-10-11 11:56] VITALS: BP 141/82; PULSE 81; RESP 24; TEMP 37.2; O2SAT 97
--- NOTE | 2022-10-11 13:55 | PM.IMHP ---
History of Present Illness Date of Service: 10/11/22 Attending physician on admission: [facility] Chief Complaint: SOB Pt is a 42-year-old female with a PMH significant for?rwg-yqhmlri-fqogegjmz diabetes, HTN, HFrEF, mixed connective tissue disease, HLD, CKD stage 3, PTSD, rheumatoid arthritis, Sjogren's disease, and others who presents to the ED with?2 days of nonproductive cough and worsening shortness of breath. Patient states that yesterday she began having and uncontrollable, constant nonproductive cough. Soon thereafter she could not ?catch her breath? and began experiencing shortness of breath even with mild exertion. Patient also endorses orthopnea, stating that she normally uses 1 pillow at night but last night used 5. This morning patient's cough was better but her shortness of breath was worse, which prompted her visit to the ED. patient also complains of chest tightness and pain that had initially on presentation was a 10/10, but is now a 2/10 after she received breathing treatments, steroids, and nitropaste. Patient also knows that her wheezing is much better, but she still having shortness of breath. Patient has a history of heart failure and has a CardioMEMS device in place, but apparently it has not been functioning properly and has not been providing any readings. Patient denies lower leg edema, though she notes she normally does not get edema even when in acute heart failure exacerbation. No fever, chills, nausea, vomiting, abdominal pain. In the ED patient was afebrile tachypneic up to 24 and hypertensive up to 167/96, satting at 97% on RA. Labs were significant for stable H&H of 10.7/30.4, BUN of 35 (at baseline), creatinine 2.68 (at baseline), random glucose of 357, POC 356, BNP elevated above baseline at 3758. Troponin 11.3, below baseline. UA negative for UTI, negative ketones. CXR showed no acute pulmonary process seen with stable left lower lobe atelectasis. EKG demonstrated normal sinus rhythm without any evidence of ST elevation or depression. Pt was treated with magnesium sulfate, Solu-Medrol, DuoNeb, furosemide, nitroglycerin, and insulin. Pt will be admitted to the hospital under observation for acute on chronic HFrEF exacerbation. Review of Systems Review of Systems: Shortness of breath with exertion Pleuritic chest pain Orthopnea Wheezing Non productive cough Chest tightness/pain Yes all other systems are reviewed and are negative [facility] Medical History Anxiety Bipolar 1 disorder Cardiomyopathy CKD (chronic kidney disease) CKD (chronic kidney disease) stage 2, GFR 60-89 ml/min Diabetes mellitus Eclampsia Fatty liver H/O mixed connective tissue disease Heart block AV second degree Heart failure, unspecified (~09/2020) High cholesterol History of DVT (deep vein thrombosis) HTN (hypertension) Hypersomnia Lupus Malignant hypertension Migraines Nicotine dependence, cigarettes, uncomplicated (~1999) PTSD (post-traumatic stress disorder) Rheumatoid arthritis Sjogren's disease Family History Father Substance use disorder Mental health disorder Brother Substance use disorder Mental health disorder Brother Substance use disorder Mental health disorder Other Diabetes HTN (hypertension) Surgical History History of bronchoscopy (~11/2020) History of cholecystectomy (~05/2014) History of hysterectomy Social History Household Members: Children Household Members Other:: 3 Housing: House Are you a primary wild animal caretaker to a significant other at home: No Do you presently have visiting nurse or other home services: No Alcohol intake: never Patient Tobacco Use Status: Current everyday Tobacco user Tobacco use type: Cigarette Cigarette Packs Per Day: 0.5 Cigarettes Per Day: 10 Years Smoked: 20 Smoked in Last 30 Days: Yes e-Cigarette/Vaping Use: Never Used Patient Interested in Nicotine Replacement: Yes Second Hand Smoke Exposure: No Use of substances other than those prescribed or required for medical reasons: Yes Substance Use Type: Marijuana Substance Use Frequency: Occasionally Currently Displaying Signs/Symptoms of Drug Intoxication Withdrawal: No Have you been hit, kicked, punched, or otherwise hurt by someone within the past year? If so, by whom?: No Do you feel safe in your current relationship?: No Current Relationship Is there a partner from a previous relationship who is making you feel unsafe now?: No Are you made to feel afraid or neglected: No Advance Directives: Yes Advance Directives Date on File: 06/03/21 Do you have thoughts of harming others: None Do you have a plan to hurt others: No Plan Recently lost weight without trying: No Nutrition Risks: No Nutritional Risk Patient : No : No Poor oral hygiene: No service: No Current occupational status: disabled Cognitive needs: No Hearing needs: No Vision needs: No Meds Allergies Allergy/AdvReac Type Severity Reaction Status Date / Time amoxicillin Allergy Unknown rash Verified 09/07/22 16:26 cefaclor [From Ceclor] Allergy Unknown RASH Verified 09/07/22 16:26 cephalexin Allergy Unknown rash Verified 09/07/22 16:26 Cephalosporins Allergy Unknown RASH ALL Verified 09/07/22 16:26 [CEPHALOSPORINS] OVER cephradine [From VELOSEF] Allergy Unknown RASH Verified 09/07/22 16:26 Penicillins [PENICILLINS] Allergy Unknown RASH Verified 09/07/22 16:26 gabapentin [GABAPENTIN] AdvReac Unknown RESTLESS Verified 09/07/22 16:26 LEGS, Body becomes very uncomfortable Home Medications Medication Instructions Recorded Confirmed Last Taken Type clonazepam 1 mg tablet 1 tab PO DAILY PRN anxiety 01/27/22 10/11/22 09/07/22 History carvedilol 25 mg tablet 50 mg PO BID 03/20/22 10/11/22 09/07/22 History nifedipine 90 mg tablet,extended 1 tab PO BID 04/22/22 10/11/22 09/07/22 History release 24 hr dulaglutide 1.5 mg/0.5 mL 1.5 mg subcut TH 05/28/22 10/11/22 10/09/22 History subcutaneous pen injector (Trulicity) nicotine 21 mg/24 hr daily 1 patch transdermal DAILY 05/28/22 10/11/22 09/07/22 History transdermal patch torsemide 20 mg tablet 2 tab PO DAILY PRN Edema 05/28/22 10/11/22 09/07/22 History sacubitril 97 mg-valsartan 103 mg 1 tab PO BID 08/20/22 10/11/22 09/07/22 History tablet (Entresto) amitriptyline 10 mg tablet 10 mg PO BEDTIME 09/08/22 10/11/22 09/07/22 History Physical Exam Vital Signs and Narrative: Vital Signs: Last Vital Signs Temp 98.9 F 10/11/22 11:56 Pulse 81 10/11/22 11:56 Resp 24 H 10/11/22 11:56 BP 141/82 H 10/11/22 11:56 Pulse Ox 97 10/11/22 11:56 O2 Del Method Room Air 10/11/22 11:56 BMI result Body Mass Index 32.3 Constitutional: Alert, in no acute distress. Mental Status: Oriented to person, place and time. Eyes: Pupils are equal, round, and reactive to light. Ear, Nose, and Throat: Oropharynx clear, mucous membranes moist. Ears and nose without deformities. Trachea midline. Respiratory: Clear to auscultation bilaterally. No wheezing, rales, or rhonchi. Capable of speaking in full sentences. Cardiovascular: S1, S2 regular. No murmurs, rubs, or gallops. Gastrointestinal: Abdomen soft, non-tender, non-distended. Normal bowel sounds. Neurologic: Cranial nerves II-XII are grossly intact bilaterally. No focal neurological deficits. Moves all extremities spontaneously. Skin: No rashes or lesions noted. Musculoskeletal: No cyanosis or clubbing. Extremities: Trace bilateral lower leg edema. Psychiatric: Normal mood and affect. Results Labs 10/11/22 11:10 10/11/22 11:10 Labs: Laboratory Results - last 24 hr 10/11/22 10/11/22 10/11/22 10:31 11:10 11:10 MCV 91.3 MCH 32.1 MCHC 35.2 H RDW 15.2 Plt Count 299 MPV 9.6 Immature Gran % (Auto) 0.2 Neut % (Auto) 82.9 H Lymph % (Auto) 8.0 [address] [place] % (Auto) 6.3 Eos % (Auto) 2.1 Baso % (Auto) 0.5 Lymph # (Auto) 0.[address] [place] # (Auto) 0.6 Eos # (Auto) 0.2 Baso # (Auto) 0.1 Abs Immat Gran (auto) 0.02 Absolute Neuts (auto) 7.8 Absolute Nucleated RBC 0.000 Nucleated RBC % (auto) 0.0 Anion Gap 12 Estim Creat Clear Calc 30.5 Estimated GFR 20 POC Glucose 338 H Random Glucose 357 H* Calcium 9.2 D Total Bilirubin 1.1 H Direct Bilirubin 0.3 AST 14 ALT 23 Alkaline Phosphatase 137 H Troponin I High Sens B-Natriuretic Peptide Total Protein 6.0 L Albumin 3.6 Lipase 13 Urine Color Urine Appearance Urine pH Ur Specific [place] Urine Protein Urine Glucose (UA) Urine Ketones Urine Blood Urine Nitrite Ur Leukocyte Esterase Urine RBC Urine WBC Ur Squamous Epith Cells Urine Bacteria Hyaline Casts Influenza Type A (PCR) Influenza Type B (PCR) RSV RNA Qual (PCR) SARS-CoV-2 RNA (RT-PCR) 10/11/22 10/11/22 10/11/22 11:10 11:10 11:10 MCV MCH MCHC RDW Plt Count MPV Immature Gran % (Auto) Neut % (Auto) Lymph % (Auto) [place] % (Auto) Eos % (Auto) Baso % (Auto) Lymph # (Auto) [place] # (Auto) Eos # (Auto) Baso # (Auto) Abs Immat Gran (auto) Absolute Neuts (auto) Absolute Nucleated RBC Nucleated RBC % (auto) Anion Gap Estim Creat Clear Calc Estimated GFR POC Glucose Random Glucose Calcium Total Bilirubin Direct Bilirubin AST ALT Alkaline Phosphatase Troponin I High Sens 11.3 D B-Natriuretic Peptide 3758 H Total Protein Albumin Lipase Urine Color Urine Appearance Urine pH Ur Specific [place] Urine Protein Urine Glucose (UA) Urine Ketones Urine Blood Urine Nitrite Ur Leukocyte Esterase Urine RBC Urine WBC Ur Squamous Epith Cells Urine Bacteria Hyaline Casts Influenza Type A (PCR) NEGATIVE Influenza Type B (PCR) NEGATIVE RSV RNA Qual (PCR) NEGATIVE SARS-CoV-2 RNA (RT-PCR) NEGATIVE 10/11/22 10/11/22 12:22 12:30 MCV MCH MCHC RDW Plt Count MPV Immature Gran % (Auto) Neut % (Auto) Lymph % (Auto) [place] % (Auto) Eos % (Auto) Baso % (Auto) Lymph # (Auto) [place] # (Auto) Eos # (Auto) Baso # (Auto) Abs Immat Gran (auto) Absolute Neuts (auto) Absolute Nucleated RBC Nucleated RBC % (auto) Anion Gap Estim Creat Clear Calc Estimated GFR POC Glucose 356 H* Random Glucose Calcium Total Bilirubin Direct Bilirubin AST ALT Alkaline Phosphatase Troponin I High Sens B-Natriuretic Peptide Total Protein Albumin Lipase Urine Color Yellow Urine Appearance Clear Urine pH 6.5 Ur Specific [place] 1.015 Urine Protein 100 (2+) H Urine Glucose (UA) >=1000 H Urine Ketones Negative Urine Blood Negative Urine Nitrite Negative Ur Leukocyte Esterase Trace H Urine RBC 0-2 Urine WBC 11-20 H Ur Squamous Epith Cells 11-20 Urine Bacteria 2+ Hyaline Casts 0-2 Influenza Type A (PCR) Influenza Type B (PCR) RSV RNA Qual (PCR) SARS-CoV-2 RNA (RT-PCR) Imaging Radiologist's Impressions: Impressions Chest X-Ray 10/11/22 11:26 IMPRESSION: 1. No acute pulmonary process seen. Stable left lower lobe atelectasis 2. There is an old healed left posterior seventh rib fracture. 3. 3. Mild cardiomegaly. Assessment and Plan (1) CHF (congestive heart failure): Status: Acute (2) Hyperglycemia: Status: Acute (3) Atypical chest pain: Status: Acute Plan Pt is a 42-year-old female with a PMH significant for?hlt-xyffwoy-zltnwgsnl diabetes, HTN, HFrEF, mixed connective tissue disease, HLD, CKD stage 3, PTSD, rheumatoid arthritis, Sjogren's disease, and others who presents to the ED with?2 days of nonproductive cough and worsening shortness of breath. Pt will be admitted to the hospital under observation for acute on chronic HFrEF exacerbation. HFrEF Patient with MEMS device not currently working properly Patient with SOB, orthopnea, elevated BNP, trace pitting edema Patient has not been taking p.r.n. diuretics at home since did not meet 4 lb weight gain criteria Furosemide 40 mg IV b.i.d. Follow lytes, MG, I/O Daily weights, low-salt diet Admit to telemetry Wheezing/chest tightness/SOB Patient has not been using her home inhalers lately due to insurance issues Patient also reports feeling worse after DuoNeb breathing treatment Received magnesium sulfate, albuterol sulfate, Solu-Medrol 125 mg IV, and DuoNebs in the ED Solu-Medrol 40 mg IV q.12 Albuterol 4 puffs Q 2 Continue home inhalers Chest pain Patient presented to ED with 10/10 pleuritic chest pain Troponins below her baseline, EKG without ischemic changes Patient received nitro paste that provided some relief, now complaining of 2/10 pain Treat as above with steroids, inhalers, and diuretics Hold on additional nitro paste for now Vdd-vpjrold-ivlcvtesr diabetes Patient hyperglycemic at 357 at time of presentation Received 10 units of regular insulin in the ED Will be placed on sliding scale insulin Diabetic diet CKD stage 3 Creatinine at baseline Full Code Attending:?Dr. Mejía DVT Prophylaxis: Pt ambulatory, declined Lovenox and heparin Patient be admitted hospital under observation for acute on chronic HFrEF exacerbation. Time Spent With Patient Time: Total time managing care of this patient today ____ minutes. Quality Stroke Does the patient have a stroke diagnosis?: No VTE Prior VTE?: No VTE Risk Level:: Medical - moderate - high VTE Device Contraindication: Treatment Not Indicated VTE Drug Contraindication: Treatment Not Indicated
--- NOTE | 2022-10-11 14:15 | PC.NURSE ---
lungs sound clear, pt states her chest is no longer tight, and easier to breath.
[2022-10-11 14:18] VITALS: BP 164/95; PULSE 84; RESP 21; TEMP 37.3; O2SAT 97
--- NOTE | 2022-10-11 14:52 | PHA.MEDREC ---
Pharmacy Consult ? Medication Reconciliation Pharmacy has completed the medication reconciliation. spoke with patient and she was able to confirm all of her medications. No longer taking omeprazole, hydralazine, and Xigudo XR. Has not had to use the torsemide.
[2022-10-11 16:10] VITALS: BP 173/96; PULSE 90; RESP 16; TEMP 36.8; O2SAT 95
[2022-10-11 19:18] VITALS: BP 177/94; PULSE 93; RESP 18; TEMP 37.2; O2SAT 95
[2022-10-12] VITALS: BP 179/92; PULSE 82; RESP 18; TEMP 37; O2SAT 92
--- NOTE | 2022-10-12 00:50 | PC.NURSE ---
Addendum entered by Karen Whitten RN 10/12/22 00:54: pt asymptomatic. Original Note: Covering Dr. Montes notified patient continues with hypertension 179/92 after evening antihypertensives.
[2022-10-12 02:38] VITALS: BP 169/82; PULSE 87; RESP 18; TEMP 36.1; O2SAT 92
[2022-10-12 06:59] LABS: Hematocrit 26.3 % (37.0-47.0); Hemoglobin 9.1 g/dl (12.0-16.0); Mean Corpuscular HGB Conc 34.6 g/dl (31.0-35.0); Mean Corpuscular Hemoglobin 31.8 pg (27.0-33.0); Mean Platelet Volume 10.1 fL (9.4-12.3); Platelet Count 306 X10*3/uL (160-400); Red Blood Count 2.86 X10*6/uL (4.20-5.50); Red Cell Distribution Width 15.4 % (11.0-16.0)
[2022-10-12 07:13] LABS: Anion Gap 12 (12-20); Blood Urea Nitrogen 37 mg/dL (9-16); Carbon Dioxide 24 mmol/L (22-29); Chloride 103 mmol/L (96-108); Creatinine Clr Calc Pharmacy 31.3; Estimated Glomerular Filt Rate 19; Glucose Random 284 mg/dL (60-115); Potassium 3.7 mmol/L (3.3-5.1); Sodium 135 mmol/L (135-145)
[2022-10-12 07:27] VITALS: BP 158/82; PULSE 82; RESP 20; TEMP 36.3; O2SAT 93
--- NOTE | 2022-10-12 09:03 | PM.DS ---
DS: Providers Provider Date of Service: 10/12/22 Date of admission: 10/11/22 14:42 Primary care physician: Mauricio Nolasco [facility] DS: Diagnosis Discharge Diagnosis (1) CHF (congestive heart failure): Status: Acute (2) Hyperglycemia: Status: Acute (3) Atypical chest pain: Status: Acute DS: Summary Hospital Course Hospital Course: Chief Complaint: SOB Pt is a 42-year-old female with a PMH significant for?vem-nuazspa-yhrwkgcxw diabetes, HTN, HFrEF, mixed connective tissue disease, HLD, CKD stage 3, PTSD, rheumatoid arthritis, Sjogren's disease, and others who presents to the ED with?2 days of nonproductive cough and worsening shortness of breath.? Patient states that yesterday she began having and uncontrollable, constant nonproductive cough.? Soon thereafter she could not ?catch her breath? and began experiencing shortness of breath even with mild exertion.? Patient also endorses orthopnea, stating that she normally uses 1 pillow at night but last night used 5.? This morning patient's cough was better but her shortness of breath was worse, which prompted her visit to the ED. patient also complains of chest tightness and pain that had initially on presentation was a 10/10, but is now a 2/10 after she received breathing treatments, steroids, and nitropaste.? Patient also knows that her wheezing is much better, but she still having shortness of breath. Patient has a history of heart failure and has a CardioMEMS device in place, but apparently it has not been functioning properly and has not been providing any readings.? Patient denies lower leg edema, though she notes she normally does not get edema even when in acute heart failure exacerbation.? No fever, chills, nausea, vomiting, abdominal pain. In the ED patient was afebrile tachypneic up to 24 and hypertensive up to 167/96, satting at 97% on RA. Labs were significant for stable H&H of 10.7/30.4, BUN of 35 (at baseline), creatinine 2.68 (at baseline), random glucose of 357, POC 356, BNP elevated above baseline at 3758.? Troponin 11.3, below baseline.? UA negative for UTI, negative ketones. CXR showed no acute pulmonary process seen with stable left lower lobe atelectasis. EKG demonstrated normal sinus rhythm without any evidence of ST elevation or depression. Pt was treated with magnesium sulfate, Solu-Medrol, DuoNeb, furosemide, nitroglycerin, and insulin. Pt will be admitted to the hospital under observation for acute on chronic HFrEF exacerbation. Hospital course: She presented with shortness of breath, elevated BNP, wheezing, no pulmonary edema on CXR, no leg edema. She was treated with IV diuretics, bronchodilators by Nebulizer and IV steroid and made rapid improvement. By the following day she was feeling better with no sob. She was discharge with Prednisone 20 mg daily x 3 day (lower dose) to prevent hyperglycemia. Advised to follow up with her medicare interviewer and PCP final diagnoses: Copd exacerbation chroni HFrEF with exacerbation Hyperglycemia Time Spent with Patient Time attestation: Total time managing care of this patient today ____ minutes. Discharge coordination time: Greater than 30 minutes Quality: Safe Use of Opioids Does Pt have an Active Cancer Diagnosis on the Problem List?: No Quality: Stroke Does the patient have a stroke diagnosis?: No Physical Exam Vital Signs: Vital Signs: Last Vital Signs Temp 97.3 F 10/12/22 07:27 Pulse 82 10/12/22 07:27 Resp 20 10/12/22 07:27 BP 158/82 H 10/12/22 07:27 Pulse Ox 93 10/12/22 07:27 O2 Del Method Room Air 10/12/22 07:27 BMI result Body Mass Index 32.3 DS: Data Data Completed and Pending Completed studies during hospitalization [Text1]: Procedures Drainage of Left Knee Joint, Percutaneous Approach (01/07/21) Labs on day of discharge: Laboratory Results - last 24 hr 10/11/22 10/11/22 10/11/22 10:31 11:10 11:10 WBC 9.4 RBC 3.33 L Hgb 10.7 L Hct 30.4 L MCV 91.3 MCH 32.1 MCHC 35.2 H RDW 15.2 Plt Count 299 MPV 9.6 Immature Gran % (Auto) 0.2 Neut % (Auto) 82.9 H Lymph % (Auto) 8.0 L Owen % (Auto) 6.3 Eos % (Auto) 2.1 Baso % (Auto) 0.5 Lymph # (Auto) 0.8 L Owen # (Auto) 0.6 Eos # (Auto) 0.2 Baso # (Auto) 0.1 Abs Immat Gran (auto) 0.02 Absolute Neuts (auto) 7.8 Absolute Nucleated RBC 0.000 Nucleated RBC % (auto) 0.0 Sodium 136 Potassium 4.4 D Chloride 107 Carbon Dioxide 21 L Anion Gap 12 BUN 35 H Creatinine 2.68 H Estim Creat Clear Calc 30.5 Estimated GFR 20 POC Glucose 338 H Random Glucose 357 H* Calcium 9.2 D Total Bilirubin 1.1 H Direct Bilirubin 0.3 AST 14 ALT 23 Alkaline Phosphatase 137 H Troponin I High Sens B-Natriuretic Peptide Total Protein 6.0 L Albumin 3.6 Lipase 13 Urine Color Urine Appearance Urine pH Ur Specific [place] Urine Protein Urine Glucose (UA) Urine Ketones Urine Blood Urine Nitrite Ur Leukocyte Esterase Urine RBC Urine WBC Ur Squamous Epith Cells Urine Bacteria Hyaline Casts Influenza Type A (PCR) Influenza Type B (PCR) RSV RNA Qual (PCR) SARS-CoV-2 RNA (RT-PCR) 10/11/22 10/11/22 10/11/22 11:10 11:10 11:10 WBC RBC Hgb Hct MCV MCH MCHC RDW Plt Count MPV Immature Gran % (Auto) Neut % (Auto) Lymph % (Auto) Owen % (Auto) Eos % (Auto) Baso % (Auto) Lymph # (Auto) Owen # (Auto) Eos # (Auto) Baso # (Auto) Abs Immat Gran (auto) Absolute Neuts (auto) Absolute Nucleated RBC Nucleated RBC % (auto) Sodium Potassium Chloride Carbon Dioxide Anion Gap BUN Creatinine Estim Creat Clear Calc Estimated GFR POC Glucose Random Glucose Calcium Total Bilirubin Direct Bilirubin AST ALT Alkaline Phosphatase Troponin I High Sens 11.3 D B-Natriuretic Peptide 3758 H Total Protein Albumin Lipase Urine Color Urine Appearance Urine pH Ur Specific [place] Urine Protein Urine Glucose (UA) Urine Ketones Urine Blood Urine Nitrite Ur Leukocyte Esterase Urine RBC Urine WBC Ur Squamous Epith Cells Urine Bacteria Hyaline Casts Influenza Type A (PCR) NEGATIVE Influenza Type B (PCR) NEGATIVE RSV RNA Qual (PCR) NEGATIVE SARS-CoV-2 RNA (RT-PCR) NEGATIVE 10/11/22 10/11/22 10/11/22 12:22 12:30 16:12 WBC RBC Hgb Hct MCV MCH MCHC RDW Plt Count MPV Immature Gran % (Auto) Neut % (Auto) Lymph % (Auto) Owen % (Auto) Eos % (Auto) Baso % (Auto) Lymph # (Auto) Owen # (Auto) Eos # (Auto) Baso # (Auto) Abs Immat Gran (auto) Absolute Neuts (auto) Absolute Nucleated RBC Nucleated RBC % (auto) Sodium Potassium Chloride Carbon Dioxide Anion Gap BUN Creatinine Estim Creat Clear Calc Estimated GFR POC Glucose 356 H* 344 H Random Glucose Calcium Total Bilirubin Direct Bilirubin AST ALT Alkaline Phosphatase Troponin I High Sens B-Natriuretic Peptide Total Protein Albumin Lipase Urine Color Yellow Urine Appearance Clear Urine pH 6.5 Ur Specific [place] 1.015 Urine Protein 100 (2+) H Urine Glucose (UA) >=1000 H Urine Ketones Negative Urine Blood Negative Urine Nitrite Negative Ur Leukocyte Esterase Trace H Urine RBC 0-2 Urine WBC 11-20 H Ur Squamous Epith Cells 11-20 Urine Bacteria 2+ Hyaline Casts 0-2 Influenza Type A (PCR) Influenza Type B (PCR) RSV RNA Qual (PCR) SARS-CoV-2 RNA (RT-PCR) 10/11/22 10/12/22 10/12/22 19:19 06:37 06:37 WBC 10.0 RBC 2.86 L Hgb 9.1 L Hct 26.3 L MCV 92.0 MCH 31.8 MCHC 34.6 RDW 15.4 Plt Count 306 MPV 10.1 Immature Gran % (Auto) Neut % (Auto) Lymph % (Auto) Owen % (Auto) Eos % (Auto) Baso % (Auto) Lymph # (Auto) Owen # (Auto) Eos # (Auto) Baso # (Auto) Abs Immat Gran (auto) Absolute Neuts (auto) Absolute Nucleated RBC 0.000 Nucleated RBC % (auto) 0.0 Sodium 135 Potassium 3.7 Chloride 103 Carbon Dioxide 24 Anion Gap 12 BUN 37 H Creatinine 2.72 H Estim Creat Clear Calc 31.3 Estimated GFR 19 POC Glucose 372 H* Random Glucose 284 H Calcium 9.0 Total Bilirubin Direct Bilirubin AST ALT Alkaline Phosphatase Troponin I High Sens B-Natriuretic Peptide Total Protein Albumin Lipase Urine Color Urine Appearance Urine pH Ur Specific [place] Urine Protein Urine Glucose (UA) Urine Ketones Urine Blood Urine Nitrite Ur Leukocyte Esterase Urine RBC Urine WBC Ur Squamous Epith Cells Urine Bacteria Hyaline Casts Influenza Type A (PCR) Influenza Type B (PCR) RSV RNA Qual (PCR) SARS-CoV-2 RNA (RT-PCR) 10/12/22 07:30 WBC RBC Hgb Hct MCV MCH MCHC RDW Plt Count MPV Immature Gran % (Auto) Neut % (Auto) Lymph % (Auto) Owen % (Auto) Eos % (Auto) Baso % (Auto) Lymph # (Auto) Owen # (Auto) Eos # (Auto) Baso # (Auto) Abs Immat Gran (auto) Absolute Neuts (auto) Absolute Nucleated RBC Nucleated RBC % (auto) Sodium Potassium Chloride Carbon Dioxide Anion Gap BUN Creatinine Estim Creat Clear Calc Estimated GFR POC Glucose 264 H Random Glucose Calcium Total Bilirubin Direct Bilirubin AST ALT Alkaline Phosphatase Troponin I High Sens B-Natriuretic Peptide Total Protein Albumin Lipase Urine Color Urine Appearance Urine pH Ur Specific [place] Urine Protein Urine Glucose (UA) Urine Ketones Urine Blood Urine Nitrite Ur Leukocyte Esterase Urine RBC Urine WBC Ur Squamous Epith Cells Urine Bacteria Hyaline Casts Influenza Type A (PCR) Influenza Type B (PCR) RSV RNA Qual (PCR) SARS-CoV-2 RNA (RT-PCR) Discharge Plan Discharge Anticipated Discharge Date/Time: 10/12/22 08:59 Patient Disposition: Home, Self-Care Discharge Diagnosis: heart failure exacerbation Referrals: Mauricio Nolasco, [employer]- [Primary Care Provider] - 1 Week Discharge Medications: New prednisone 20 mg tablet 20 mg PO DAILY Qty: 3 0RF Continued (DME) blood-glucose meter [FreeStyle Lite Meter] Kit See Rx Instructions .Route Qty: 1 0RF Rx Instructions: As directed tests 4 X/day (DME) FreeStyle Lite Strips Strip See Rx Instructions .Route Qty: 100 5RF Rx Instructions: As directed- tests 4X/day (DME) lancets [FreeStyle Lancets] 28 gauge misc See Rx Instructions .Route Qty: 100 4RF Rx Instructions: As directed- tests 4X/day (DME) blood pressure test kit-large Kit See Rx Instructions .Route Qty: 1 0RF Rx Instructions: daily use albuterol sulfate 90 mcg/actuation HFA aerosol inhaler 1 inh inhalation QID PRN (Reason: Wheezing) 30 Days Qty: 8.5 1RF aspirin 81 mg tablet,delayed release (DR/EC) 81 mg PO DAILY 90 Days Qty: 90 1RF clonazepam 1 mg tablet 1 tab PO DAILY PRN (Reason: anxiety) carvedilol 25 mg tablet 50 mg PO BID nifedipine 90 mg tablet extended release 24hr 1 tab PO BID torsemide 20 mg tablet 2 tab PO DAILY PRN (Reason: Edema) nicotine 21 mg/24 hr Patch 24 Hour 1 patch TRANSDERMAL DAILY Trulicity 1.5 mg/0.5 mL Pen Injector 1.5 mg SUBCUT TH amitriptyline 10 mg tablet 10 mg PO BEDTIME Entresto 97-103 mg tablet 1 tab PO BID Discharge Orders: Discharge Order (Routine); Ordered 10/12/22 Ordered By: Esteban Mejía Diet: Diabetic diet Activity on Discharge: As tolerated Stand Alone Forms: Patient Portal Discharge page Care Plan Goals: full recovery from copd exacerbation and heart failure Health Concerns: copd history of heart failure hyperglycemia Plan of Treatment: take prednisone as directed, use your usual inhalers, stop smoking, follow up with your doctor in a week take Torsemide as directed and follow up with your primary care doctor and your heart doctor Assessment: as above Discharge Date/Time: 10/12/22 10:58
--- NOTE | 2022-10-12 09:17 | MHC.CM.PN ---
Addendum entered by Dyan Langley 10/12/22 11:32: PT DISCHARGED HOME TODAY WITH NO SERVICES MOTHER PROVIDED TRANSPORT Original Note: PT REPORTS SHE LIVES AT HOME WITH HER CHILDREN SHE IS INDEPENDENT WITH CARE PT HAS NO SERVICES AND NO DME SHE HAS A HCP ON FILE PCP: CHERRY CRANE OBSERVATION NOTICE DELIVERED DCP: HOME NO SERVICES PT BELIEVES HER MOTHER MAY BE ABLE TO TRANSPORT AT DC, IF NOT, SHE WILL NEED ASSISTANCE (SHUTTLE V LYFT)
== END 2022-10-12 10:58 | disposition home or self-care (01) ==
LOC: HO.ED 13:09 → HO.EDOVER 15:16 → HO.IMC 15:25
PROVIDERS: Admitting Provider Student in an Organized Health Care Education/Training Program; Emergency Provider Emergency Medicine; PCP Nurse Practitioner Family; Visit Provider Internal Medicine
DX: I13.0 Hypertensive heart and chronic kidney disease with heart failure and stage 1 through stage 4 chronic kidney disease, or unspecified chronic kidney disease (principal); I50.20 Unspecified systolic (congestive) heart failure; N18.30 Chronic kidney disease, stage 3 unspecified; E11.22 Type 2 diabetes mellitus with diabetic chronic kidney disease; E11.65 Type 2 diabetes mellitus with hyperglycemia; Z79.4 Long term (current) use of insulin; R06.00 Dyspnea, unspecified; R06.02 Shortness of breath; F17.200 Nicotine dependence, unspecified, uncomplicated; R07.89 Other chest pain; M35.00 Sjogren syndrome, unspecified; Z20.822 Contact with and (suspected) exposure to COVID-19
CPT/HCPCS: 0241U; 36415; 71045; 80048; 80076; 81001; 82947; 83690; 83880; 84484; 85025; 85027; 87086; 93005; 94640; 96365; 96366; 96372; 96375; 96376; 99222; 99285; J1940; J2930; J3475

== ENCOUNTER 2022-12-15 09:38 | Outpatient (AMB) | payer MEDICARE, MEDICAID, SELFPAY ==
[2021-09-27 11:09] VITALS: BP 190/120; BMI 29.0
[2022-12-15 09:44] VITALS: BP 160/100; PULSE 78; O2SAT 100; BMI 29.6
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
== END 2022-12-15 10:21 | disposition home or self-care (01) ==
PROVIDERS: PCP Nurse Practitioner Family; Visit Provider Nurse Practitioner Family
DX: I12.9 Hypertensive chronic kidney disease with stage 1 through stage 4 chronic kidney disease, or unspecified chronic kidney disease (principal); N18.9 Chronic kidney disease, unspecified; N17.9 Acute kidney failure, unspecified
CPT/HCPCS: 99213

== ENCOUNTER 2023-04-07 10:55 | Outpatient (AMB) | payer MEDICARE, MEDICAID, SELFPAY ==
[2021-09-27 11:09] VITALS: BP 190/120; BMI 29.0
[2023-04-07 14:27] VITALS: BP 180/100; PULSE 98; TEMP 36.3; O2SAT 99; BMI 29.1
--- NOTE | 2023-04-07 14:27 | AM.OFFWIN_ITS ---
Intake Vital Signs 04/07/23 14:27 Height 5 ft 7 in Weight 186 lb BMI 29.1 BP 180/100 H Blood Pressure Location Rt brachial Position Sitting Pulse 98 Pulse Source Pulse Oximeter Temp 97.4 F Temp Source Temporal Artery Scan Pulse Oximetry (%) 99 Oxygen Delivery Method Room Air Intake Visit Reasons: EST/wheezing (lobby masked) Intake Note: pt is here today for wheezing started 5 days Patient Tobacco Use Status: Current everyday Tobacco user Allergies amoxicillin Allergy (Unknown, Verified 04/07/23 14:31) rash cefaclor [From Ceclor] Allergy (Unknown, Verified 04/07/23 14:31) RASH cephalexin Allergy (Unknown, Verified 04/07/23 14:31) rash Cephalosporins [CEPHALOSPORINS] Allergy (Unknown, Verified 04/07/23 14:31) RASH ALL OVER cephradine [From VELOSEF] Allergy (Unknown, Verified 04/07/23 14:31) RASH Penicillins [PENICILLINS] Allergy (Unknown, Verified 04/07/23 14:31) RASH gabapentin [GABAPENTIN] Adverse Reaction (Unknown, Verified 04/07/23 14:31) RESTLESS LEGS, Body becomes very uncomfortable Do you need a note to return to daycare/school/sports/work: Yes HPI HPI Comments History of Present Illness Details Patient is a 43-year-old female here today for sick visit. She states that for the past 5 days she has developed symptoms of sore throat, chest t ightness, cough. She has a past medical history significant for asthma, diabetes type 2, kidney disease. She denies chest pain, dizziness, shortness of breath, vomiting, diarrhea. She has a 4-year-old at home that has upper respiratory infection. She has used [id number] cough medicine with little effect. [facility] Medical History CHF (congestive heart failure) Malignant hypertension CKD (chronic kidney disease) Heart block AV second degree Hypersomnia Cardiomyopathy CKD (chronic kidney disease) stage 2, GFR 60-89 ml/min Nicotine dependence, cigarettes, uncomplicated (~1999) Eclampsia Fatty liver Heart failure, unspecified (~09/2020) History of DVT (deep vein thrombosis) Diabetes mellitus Migraines Sjogren's disease Lupus Rheumatoid arthritis High cholesterol Anxiety PTSD (post-traumatic stress disorder) Bipolar 1 disorder H/O mixed connective tissue disease HTN (hypertension) Surgical History History of hysterectomy History of bronchoscopy (~11/2020) History of cholecystectomy (~05/2014) Family History Father Substance use disorder Mental health disorder Brother Substance use disorder Mental health disorder Brother Substance use disorder Mental health disorder Other Diabetes HTN (hypertension) Social History Household Members: Children Household Members Other:: 3 Housing: House Are you a primary medicare interviewer to a significant other at home: No Do you presently have visiting nurse or other home services: No Alcohol intake: never Patient Tobacco Use Status: Current everyday Tobacco user Tobacco use type: Cigarette Cigarette Packs Per Day: 0.5 Cigarettes Per Day: 10 Years Smoked: 20 e-Cigarette/Vaping Use: Never Used Second Hand Smoke Exposure: No Substance Use Type: Marijuana Advance Directives Date on File: 06/03/21 service: No Current occupational status: disabled Cognitive needs: No Hearing needs: No Vision needs: No Review of Systems Const Details: Constitutional : No Weight loss, No Fever, No Chills, No Fatigue, No Malaise ENT/Mouth : Admits sore throat, No Rhinorrhea Eyes: No Eye Pain, No Swelling, No Redness Cardiovascular : No Chest Pain, No SOB, No Dyspnea on Exertion, No Orthopnea, No Edema, No Palpitations Respiratory : Admits Cough, No Sputum, Admits Wheezing Gastrointestinal : No Nausea, No Vomiting, No Diarrhea, No Constipation, No abdominal Pain, No Hematochezia, No Melena Neuro : No Weakness, No Numbness, No Dizziness, No Headache Psych : No Anxiety/Panic, No Depression Heme/Lymph: No Bruising, No Bleeding,No Lymphadenopathy Endocrine : No Polyuria, No Polydipsia All other systems reviewed and are negative Physical Exam Vital Signs: Last Vital Signs Temp 97.4 F 04/07/23 14:27 Pulse 98 04/07/23 14:27 BP 180/100 H 04/07/23 14:27 Pulse Ox 99 04/07/23 14:27 Oxygen Delivery Method Room Air 04/07/23 14:27 BMI result Body Mass Index 29.1 Patient has history of elevated blood pressure. Goes to [facility] for hypertension. Const Other: Appearance: Alert.? Oriented X3.? No acute distress.? Eyes: Pupils equal, round and reactive to light.? ENT: Pharynx normal.?Septum patent. Neck: Normal inspection.? Neck supple.? CVS: Normal heart rate and rhythm.? Pulses normal.? Respiratory: No respiratory distress.? Bilateral expiratory wheeze of upper lobes. Skin: Skin warm and dry.? Normal skin color.? Normal skin turgor.? Back: No midline tenderness, no C-spine tenderness, full range of motion, no CVA tenderness bilaterally Neuro: Oriented X 3.? No motor deficit.? No sensory deficit. CN 2-12 intact Assessment & Plan Assessment & Plan (1) URI (upper respiratory infection): Comment: Patient had respiratory swab in office. Will give azithromycin, prednisone, bends on today to be taken as directed. Patient has been educated on side effects of medications and how to take properly. Patient is agreeable to this plan Code(s): J06.9 - Acute upper respiratory infection, unspecified Qualifiers: URI type: unspecified viral URI Qualified Code(s): J06.9 - Acute upper respiratory infection, unspecified Plan: Take your medications as prescribed. If you were prescribed antibiotics today, it is important that you take your medication to their entirety, do not skip any doses, do not finish them early. Follow-up with your primary care provider this week. Return to the emergency department with new or worsening symptoms. Such as fevers, chills, chest pain, shortness of breath, nausea, vomiting, dizziness, headache, vision changes, lethargy In case of emergency call 911 Plan Patient should follow-up with PCP Orders: Orders SARS-CoV2/FLU/RSV Today J06.9 - Acute upper respiratory infection, unspecified Coding Level of Care Code Est Pt Level 3 (93538) Diagnoses Viral upper respiratory tract infection J06.9 URI type: unspecified viral URI Time Spent (min) 20
== END 2023-04-07 14:52 | disposition home or self-care (01) ==
PROVIDERS: PCP Nurse Practitioner Family; Visit Provider Nurse Practitioner Primary Care
DX: J06.9 Acute upper respiratory infection, unspecified (principal)
CPT/HCPCS: 99213

== ENCOUNTER 2023-04-07 15:01 | Outpatient (REF) | payer MEDICARE, MEDICAID, SELFPAY ==
[2021-09-27 11:09] VITALS: BP 190/120; BMI 29.0
[2023-04-08 10:01] LABS: Influenza A PCR NEGATIVE (Negative); Influenza B PCR NEGATIVE (Negative); Resp Syncy Virus RNA Qual PCR POSITIVE (Negative); SARS COV2 PCR INHOUSE NEGATIVE (Negative)
== END 2023-04-07 15:02 | disposition home or self-care (01) ==
LOC: HO.LAB 15:01
PROVIDERS: Visit Provider Nurse Practitioner Primary Care
DX: J06.9 Acute upper respiratory infection, unspecified (principal); Z11.52 Encounter for screening for COVID-19; Z20.828 Contact with and (suspected) exposure to other viral communicable diseases
CPT/HCPCS: 0241U

== ENCOUNTER 2023-04-20 12:21 | Emergency (ER) | payer MEDICARE, MEDICAID, SELFPAY ==
[2021-09-27 11:09] VITALS: BP 190/120; BMI 29.0
--- NOTE | ~2023-04-20 | MR_ITS ---
EXAMINATION: MR BRAIN WITHOUT CONTRAST CLINICAL INFORMATION: Loss of right visual field. COMPARISON: Head CT from 12/02/2021. TECHNIQUE: Multiplanar, multisequence imaging of the brain was performed without contrast. FINDINGS: There is moderate generalized brain parenchymal volume loss for patient age with concordant ex vacuo prominence of the ventricles. No acute infarct visible on diffusion-weighted imaging. There are [id number] patchy areas of T2 hyperintense signal abnormality in the cerebral white matter both hemispheres, also involving the bitemporal periventricular white matter. There is a small area of encephalomalacia with marginal gliosis in the midline genu of the corpus callosum. There are what may represent small chronic lacunar infarcts in the right external capsule and dorsal right basal ganglia. Potential small chronic infarcts also visible in the left thalamus. There is chronic linear hemosiderin staining and mild gliosis in the dorsal aspect of the left putamen as well. Patchy subcentimeter areas of T2 hyperintense signal abnormality are present in the conchita with small chronic microhemorrhages. There are additional slightly asymmetric foci of signal abnormality in the middle cerebellar peduncles. Nonspecific mild amorphous T2 hyperintense signal abnormality is also visible in the left cerebellar white matter as well. No mass effect or midline shift is seen. No extra-axial fluid collections are seen. The craniovertebral junction is normal. The marrow is somewhat low in signal on T1-weighted imaging in the calvarium, skull base, and cervical vertebrae. A chronic mildly depressed right orbital floor fracture is partially visualized. The mastoid air cells are well aerated. The major intracranial flow voids at the level of the [place] are preserved. The dural venous sinus flow voids are maintained. There is mild mucosal thickening in the paranasal sinuses. There are small hyperintense foci within both parotid glands which have a slightly heterogeneous appearance on the T2-weighted acquisition. MR/MR head/brain wo con IMPRESSION: No acute intracranial process. No acute infarct. Moderate generalized brain parenchymal volume loss for patient age with extensive white matter disease, some of which involves the bitemporal periventricular white matter, both middle cerebellar peduncles, the left cerebellar white matter, and the corpus callosum. Additional chronic microhemorrhages in the conchita and in the dorsal left putamen. Small chronic lacunar infarcts in the deep skelton matter structures. Aforementioned imaging findings are nonspecific but may signify underlying vasculitis. Poorly controlled hypertension with extensive white matter small vessel ischemic disease and chronic lacunar infarcts would be another differential diagnostic consideration. Underlying coinciding demyelinating disease, as can be seen in multiple sclerosis cannot be ruled out given distribution of some of the aforementioned imaging findings. Other autoimmune diseases such as Susac syndrome in the correct clinical setting cannot be ruled out. Heterogeneous appearance of the parotid glands with potential small cystic changes. Imaging findings are nonspecific. Query for any history of Sjogren's syndrome. Of note, Sjogren's syndrome is another autoimmune disease which can have SUBGRADE ROLLER OPERATOR manifestations. Generalized signal abnormality within the bone marrow. This finding is nonspecific and possible etiologies include stimulated red marrow, as can be seen with smoking, iron deficiency, and chronic infection. Recommend correlation with clinical history and consider a CBC analysis for further workup.
--- NOTE | ~2023-04-20 | CT_ITS ---
EXAMINATION: CT HEAD WITHOUT CONTRAST CLINICAL INFORMATION: Visual problems COMPARISON: MRI brain 04/20/2023 performed earlier today TECHNIQUE: Contiguous axial imaging was performed from the skull base to vertex without intravenous administration of contrast. This CT examination was performed using dose optimization techniques as appropriate, variously including the following: *Automated exposure control *Adjustment of mA and/or kV according to patient size (this includes techniques or standardized protocols for targeted exams where dose is matched to indication/reason for exam; i.e. extremities or head) *Use of iterative reconstruction technique DLP: 665 mGy-cm FINDINGS: There is no acute intra-axial, extra-axial bleed, masses or midline shift. There is no acute infarction in evolution. Bilateral hypodense areas seen at Gu-white matter junction in both cerebral hemispheres concordant with T2 FLAIR plaques on MRI, likely MS. There is no edema. The lateral ventricles are symmetrical in size and configuration without enlargement but mildly enlarged. Bone windows reveal no calvarial abnormality. There is a small polyp or retention cyst right maxillary sinus. Rest of the paranasal sinuses and mastoid air cells are well-aerated.. There is asymmetric increased attenuation in the right optic nerve compared to left likely related to demyelinating plaque on coronal image 43/7 CT/CT head/brain wo IV con IMPRESSION: 1. No acute intracranial process seen. 2. Mild cerebral volume loss. 3. Small polyp or retention cyst right maxillary sinus. 4. Bilateral hypodense areas in this gu-white matter junction of both cerebral hemispheres.
[2023-04-20 12:31] VITALS: BP 164/86; PULSE 76; O2SAT 96
[2023-04-20 12:39] VITALS: BP 156/84; PULSE 75; RESP 18; TEMP 36.5; O2SAT 98
--- NOTE | 2023-04-20 13:47 | ED_ITS ---
HPI - Eye Problem General Chief complaint: Eye Problems Stated complaint: WOKE UP W/R EYE VISION PROBLEM PER EMS Time Seen by Provider: 04/20/23 13:29 Source: patient and EMS Mode of arrival: EMS Limitations: no limitations History of Present Illness HPI Narrative: A 43-year-old female with history of essential hypertension, presented today after she woke up this morning with right eye visual problem, patient feels like something blocking her term from visual field on the right eye, declined any pain in the eye, no redness, no discharge from the right eye, patient's symptoms improved at some point then got worse again. Otherwise patient declined any weakness or numbness. Related Data Home Medications Medication Instructions Recorded Confirmed carvedilol 25 mg tablet 50 mg PO BID 03/20/22 12/15/22 nifedipine 90 mg tablet,extended 1 tab PO BID 04/22/22 12/15/22 release 24 hr dulaglutide 1.5 mg/0.5 mL 1.5 mg subcut TH 05/28/22 12/15/22 subcutaneous pen injector (Trulicity) torsemide 20 mg tablet 2 tab PO DAILY PRN Edema 05/28/22 12/15/22 sacubitril 97 mg-valsartan 103 mg 1 tab PO BID 08/20/22 12/15/22 tablet (Entresto) amitriptyline 10 mg tablet 10 mg PO BEDTIME 09/08/22 12/15/22 Previous Rx's Medication Instructions Recorded blood sugar diagnostic (FreeStyle #100 ea 03/20/22 Lite Strips) blood-glucose meter (FreeStyle #1 ea 03/20/22 Lite Meter kit) lancets 28 gauge (FreeStyle #100 ea 03/20/22 Lancets) blood pressure test kit-large #1 ea 03/25/22 aspirin 81 mg tablet,delayed 81 mg PO DAILY 90 days #90 tabs 09/18/22 release albuterol sulfate 90 mcg/actuation 1 inh inhalation QID PRN Wheezing 02/16/23 aerosol inhaler 30 days #8.5 grams azithromycin 250 mg tablet See Rx Instructions PO .COMPLEX #6 04/07/23 tabs benzonatate 100 mg capsule 100 mg PO BID PRN cough #30 caps 04/07/23 prednisone 20 mg tablet 40 mg (2 x 20 mg) PO DAILY #10 tabs 04/07/23 Allergies Allergy/AdvReac Type Severity Reaction Status Date / Time amoxicillin Allergy Unknown rash Verified 04/07/23 14:31 cefaclor [From Ceclor] Allergy Unknown RASH Verified 04/07/23 14:31 cephalexin Allergy Unknown rash Verified 04/07/23 14:31 Cephalosporins Allergy Unknown RASH ALL Verified 04/07/23 14:31 [CEPHALOSPORINS] OVER cephradine [From VELOSEF] Allergy Unknown RASH Verified 04/07/23 14:31 Penicillins [PENICILLINS] Allergy Unknown RASH Verified 04/07/23 14:31 gabapentin [GABAPENTIN] AdvReac Unknown RESTLESS Verified 04/07/23 14:31 LEGS, Body becomes very uncomfortable Review of Systems 2 Review of Systems: All other systems are reviewed and are negative Constitutional: Reports as per HPI and Reports no additional constitutional complaints Eyes: Reports as per HPI and Reports no additional eye complaints Reports system reviewed and no additional complaints, except as documented Cardiovascular: Reports as per HPI and Reports no additional cardiovascular complaints Respiratory: Reports as per HPI and Reports no additional respiratory complaints Gastrointestinal: Reports as per HPI and Reports no additional gastrointestinal complaints Genitourinary: Reports no additional female genitourinary complaints Musculoskeletal: Reports no additional musculoskeletal complaints Skin/Breast: Reports system reviewed and no additional complaints, except as docu Psychiatric: Reports no additional psychiatric complaints Endocrine: Reports no additional endocrine complaints Hematologic/Lymphatic: Reports no additional hematologic/lymphatic complaints Allergic/Immunologic: Reports no additional allergic/immunologic complaints Reports system reviewed and no additional complaints, except as documented and Reports Abnormal speech present PMFSH Past Medical History Onset Date is defined in the Problem List Problems that require an onset date and time if occurred within 24 hrs of arrival to the ED Aortic Dissection and Rupture; Neurologic impairment; Cardiopulmonary Arrest; Endotracheal Intubation; Insertion or Replacement of Mechanical Circulatory Assist Device Medical History CHF (congestive heart failure) Malignant hypertension CKD (chronic kidney disease) Heart block AV second degree Hypersomnia Cardiomyopathy CKD (chronic kidney disease) stage 2, GFR 60-89 ml/min Nicotine dependence, cigarettes, uncomplicated (~1999) Eclampsia Fatty liver Heart failure, unspecified (~09/2020) History of DVT (deep vein thrombosis) Diabetes mellitus Migraines Sjogren's disease Lupus Rheumatoid arthritis High cholesterol Anxiety PTSD (post-traumatic stress disorder) Bipolar 1 disorder H/O mixed connective tissue disease HTN (hypertension) Surgical History History of hysterectomy History of bronchoscopy (~11/2020) History of cholecystectomy (~05/2014) Family History Family History Father Substance use disorder Mental health disorder Brother Substance use disorder Mental health disorder Brother Substance use disorder Mental health disorder Other Diabetes HTN (hypertension) Social History Social History Household Members: Children Household Members Other:: 3 Housing: House Are you a primary school childcare attendant to a significant other at home: No Do you presently have visiting nurse or other home services: No Alcohol intake: never Patient Tobacco Use Status: Current everyday Tobacco user Tobacco use type: Cigarette Cigarette Packs Per Day: 0.5 Cigarettes Per Day: 10 Years Smoked: 20 e-Cigarette/Vaping Use: Never Used Second Hand Smoke Exposure: No Substance Use Type: Marijuana Advance Directives: Yes Advance Directives on File: Yes Advance Directives Date on File: 06/03/21 service: No Current occupational status: disabled Cognitive needs: No Hearing needs: No Vision needs: No Physical Exam 2 Vital Signs: Vital Signs: Last Vital Signs Temp 97.7 F 04/20/23 12:39 Pulse 75 04/20/23 12:39 Resp 18 04/20/23 12:39 BP 156/84 H 04/20/23 12:39 Pulse Ox 98 04/20/23 12:39 O2 Del Method Room Air 04/20/23 12:39 BMI result Body Mass Index 30.0 Vital signs have been reviewed and appear to be correct. Blood pressure elevated. Heart rate normal. Respiratory rate normal. Temperature normal. Oxygen saturation normal. Appearance: Alert. Oriented X3. No acute distress. Head: Normal external exam. Normocephalic. Atraumatic. No Chase signs noted. No raccoon eyes noted Eyes: VA significantly decreased on the right side 20/200 /left is 20/40 General: appearance normal, both eyes and all related structures Visual Monk: normal visual monk by confrontation Alignment and Position: alignment normal and position normal Periorbital: periorbital findings normal Eyelids: Yes eyelids normal Conjunctivae: conjunctivae normal Sclerae: sclerae normal Corneas: corneas normal Pupils: Equal, round and reactive pupils present and Pupil accommodation reflex normal EOM: EOM abnormal (Limited abduction of right eye) and No Nystagmus present Direct Ophthalmoscopy: normal light reflex, no photophobia, no papilledema and fundi normal bilaterally. IOP on right 14 left is 12. ENT: TM's Normal. Pharynx normal. Uvula midline. Moist mucous membranes. No trismus noted. No drooling noted. No muffled voice noted. Neck: Normal inspection. Neck supple. FROM. No adenopathy. Thyroid Normal. No meningeal signs. No neck mass noted. CVS: Normal heart rate and rhythm. Heart sound normal. No murmurs noted. Pulses normal throughout. Respiratory: No respiratory distress. Painless inspiration. Breath sounds normal. No wheezes/rales/rhonchi noted. Chest nontender. No accessory muscle usage noted or decreased air movement noted. Abdomen: Soft and nontender. Bowel sounds normal in all 4 quadrants. No distention noted. No organomegaly noted. No visible injury noted. Back: No CVA tenderness. Full range of motion noted. Skin: Skin warm and dry. Normal skin color. Normal skin turgor. No rashes/lesions/lacerations noted. Extremities: No lower extremity edema. Extremities exhibit normal range of motion. Extremities nontender. Neuro: Oriented X 3. Cranial nerve exam: II-XII are grossly intact No motor deficit. No sensory deficit. Reflexes normal. Course Reevaluation(s) Reevaluation #1: Loss of the right temporal visual field on right eye otherwise unremarkable neuro exam likely acute vascular blood clotting versus neurological issue the case was discussed with Dr. Monzon (neurology recommended MRI) the case also discussed with Dr. Beltran who offered to examined the patient at his office unfortunately patient at the MRI now. Case was signed out to Dr. Jones. Time: 15:28 Medications Administered Discontinued Medications Generic Name Dose Route Start Last Admin Trade Name Freq PRN Reason Stop Dose Admin Fluorescein Sodium 1 strip 04/20/23 13:45 04/20/23 14:07 Fluorescein Sodium Strip EYE-BOTH 04/20/23 13:46 1 strip ONCE ONE Administration Sodium Chloride 1,000 mls @ 999 mls/hr 04/20/23 13:39 04/20/23 14:01 Ns IV 04/20/23 14:39 999 mls/hr .Q1H1M ONE Administration Tetracaine HCl 1 drop 04/20/23 13:45 04/20/23 14:07 Tetracaine Hcl/Pf 0.5% Oph Dina 4 Ml Drops EYE-RIGHT 04/20/23 13:46 1 drop ONCE ONE Administration Medical Decision Making Differential Diagnosis Differential Diagnoses: The differential diagnosis associated with the presentation includes (Retinal artery occlusion, venous artery occlusion, CVA, electrolyte abnormality, severe anemia.) Admission/Observation Consideration of admission/observation: Escalation of care including admission/observation considered Consult Healthcare Provider Management of the patient was discussed with: Marine Consultant (Dr. Monzon/and Dr. Beltran.) Lab Data MDM Lab Attestation statement: I reviewed the patient's lab results. 04/20/23 14:54 04/20/23 14:54 Labs: Lab Results 04/20/23 Range/Units 14:54 WBC 10.1 (4.8-10.8) X10*3/uL RBC 3.02 L (4.20-5.50) X10*6/uL Hgb 9.8 L (12.0-16.0) g/dl Hct 28.1 L (37.0-47.0) % MCV 93.0 (80.0-98.0) fL MCH 32.5 (27.0-33.0) pg MCHC 34.9 (31.0-35.0) g/dl RDW 14.6 (11.0-16.0) % Plt Count 316 (160-400) X10*3/uL MPV 9.6 (9.4-12.3) fL Immature Gran % (Auto) 0.5 H (0.0-0.4) % Neut % (Auto) 74.5 H (45-73) % Lymph % (Auto) 15.4 L (20-40) % Sampson % (Auto) 6.6 (2-11) % Eos % (Auto) 2.3 (0-4) % Baso % (Auto) 0.7 (0-2) % Lymph # (Auto) 1.6 (1.2-4.9) X10*3/uL Sampson # (Auto) 0.7 (0.1-1.2) X10*3/uL Eos # (Auto) 0.2 (0.0-0.4) X10*3/uL Baso # (Auto) 0.1 (0.0-0.2) X10*3/uL Abs Immat Gran (auto) 0.05 H (0.00-0.03) X10*3/uL Absolute Neuts (auto) 7.5 (2.0-8.3) x10*3/uL Absolute Nucleated RBC 0.000 (0.0-0.012) X10*3/uL Nucleated RBC % (auto) 0.0 (0.0-0.2) /100WBC PT 11.2 (11.1-13.3) SEC INR 0.9 (0.9-1.1) APTT 28.6 (26.0-36.4) SEC Sodium 138 (135-145) mmol/L Potassium 4.6 (3.3-5.1) mmol/L Chloride 106 (96-108) mmol/L Carbon Dioxide 25 (22-29) mmol/L Anion Gap 12 (12-20) BUN 42 H (9-16) mg/dL Creatinine 3.85 H (0.5-1.4) mg/dL Estim Creat Clear Calc 21.0 Estimated GFR 13 Random Glucose 271 H (60-115) mg/dL Calcium 7.6 L D (8.4-10.2) mg/dL Chronic Conditions Patient?s care impacted by: Hypertension Discharge Plan Discharge Clinical Impression: Visual loss Patient Disposition: Still a Patient Prescriptions: No Action (DME) blood-glucose meter [FreeStyle Lite Meter] Kit See Rx Instructions .Route Qty: 1 0RF Rx Instructions: As directed tests 4 X/day (DME) FreeStyle Lite Strips Strip See Rx Instructions .Route Qty: 100 5RF Rx Instructions: As directed- tests 4X/day (DME) lancets [FreeStyle Lancets] 28 gauge misc See Rx Instructions .Route Qty: 100 4RF Rx Instructions: As directed- tests 4X/day (DME) blood pressure test kit-large Kit See Rx Instructions .Route Qty: 1 0RF Rx Instructions: daily use aspirin 81 mg tablet,delayed release (DR/EC) 81 mg PO DAILY 90 Days Qty: 90 1RF albuterol sulfate 90 mcg/actuation HFA aerosol inhaler 1 inh inhalation QID PRN (Reason: Wheezing) 30 Days Qty: 8.5 1RF carvedilol 25 mg tablet 50 mg PO BID nifedipine 90 mg tablet extended release 24hr 1 tab PO BID torsemide 20 mg tablet 2 tab PO DAILY PRN (Reason: Edema) Trulicity 1.5 mg/0.5 mL Pen Injector 1.5 mg SUBCUT TH amitriptyline 10 mg tablet 10 mg PO BEDTIME Entresto 97-103 mg tablet 1 tab PO BID benzonatate 100 mg capsule 100 mg PO BID PRN (Reason: cough) Qty: 30 0RF azithromycin 250 mg tablet See Rx Instructions PO .COMPLEX Qty: 6 0RF Rx Instructions: For 250 mg dose pack: take 500 mg today (day 1), then 250 mg for 4 days (days 2-5) PO prednisone 20 mg tablet 40 mg PO DAILY Qty: 10 0RF
--- NOTE | 2023-04-20 13:51 | ECG_ITS ---
Test Reason : RIGHT EYE VISION DISTURBANCE Blood Pressure : / mmHG Vent. Rate : 072 BPM Atrial Rate : 072 BPM P-R Int : 158 ms QRS Dur : 094 ms QT Int : 420 ms P-R-T Axes : 049 003 140 degrees QTc Int : 459 ms Normal sinus rhythm Possible Left atrial enlargement Left ventricular hypertrophy with repolarization abnormality ( R in aVL , Sokolow-Abarca , Omar product ) Abnormal ECG When compared with ECG of 11-OCT-2022 10:29, T wave inversion no longer evident in Anterior leads Referred By: Mariel Gomez Electronically Signed By:MANJEET DUVALL
[2023-04-20] MEDS: 0.9 % Sodium Chloride 1,000 ML 999 ML IV (14:01)
[2023-04-20] MEDS: Fluorescein Sodium STRIP 1 STRIP EYE-BOTH (14:07)
[2023-04-20] MEDS: Tetracaine HCl/PF 0.5% Oph Sol 4 ML DROPS 1 DROP EYE-RIGHT (14:07)
[2023-04-20 15:02] LABS: MANUAL DIFF FLAG NO
--- NOTE | 2023-04-20 15:04 | PC.NURSE ---
patient off to mri
[2023-04-20 15:09] LABS: Basophils Absolute Auto 0.1 X10*3/uL (0.0-0.2); Basophils Percent Auto 0.7 % (0-2); Eosinophils Absolute Auto 0.2 X10*3/uL (0.0-0.4); Eosinophils Percent Auto 2.3 % (0-4); Hematocrit 28.1 % (37.0-47.0); Hemoglobin 9.8 g/dl (12.0-16.0); Imm Gran Abs Auto 0.05 X10*3/uL (0.00-0.03); Imm Gran Pct Auto 0.5 % (0.0-0.4); Lymphocytes Absolute Auto 1.6 X10*3/uL (1.2-4.9); Lymphocytes Percent Auto 15.4 % (20-40); Mean Corpuscular HGB Conc 34.9 g/dl (31.0-35.0); Mean Corpuscular Hemoglobin 32.5 pg (27.0-33.0); Mean Platelet Volume 9.6 fL (9.4-12.3); Monocytes Absolute Auto 0.7 X10*3/uL (0.1-1.2); Monocytes Percent Auto 6.6 % (2-11); Neutrophils Absolute Auto 7.5 x10*3/uL (2.0-8.3); Neutrophils Percent Auto 74.5 % (45-73); Platelet Count 316 X10*3/uL (160-400); Red Blood Count 3.02 X10*6/uL (4.20-5.50); Red Cell Distribution Width 14.6 % (11.0-16.0); White Blood Count 10.1 X10*3/uL (4.8-10.8)
[2023-04-20 15:13] LABS: INTERNATIONAL NORM RATIO 0.9 (0.9-1.1); Prothrombin Time 11.2 SEC (11.1-13.3)
[2023-04-20 15:16] LABS: Partial Thromboplastin Time 28.6 SEC (26.0-36.4)
[2023-04-20 15:19] LABS: Anion Gap 12 (12-20); Blood Urea Nitrogen 42 mg/dL (9-16); Calcium 7.6 mg/dL (8.4-10.2); Carbon Dioxide 25 mmol/L (22-29); Chloride 106 mmol/L (96-108); Estimated Glomerular Filt Rate 13; Glucose Random 271 mg/dL (60-115); Potassium 4.6 mmol/L (3.3-5.1); Sodium 138 mmol/L (135-145)
[2023-04-20 15:24] LABS: B Type Natriuretic Peptide 3242 pg/mL (<100)
[2023-04-20 15:29] LABS: Troponin-I High Sensitivity 13.1 ng/L (<3.5-17.0)
[2023-04-20 17:11] LABS: C Reactive Protein 0.69 mg/dL (< or = 0.50)
[2023-04-20 17:35] LABS: Erythrocyte Sedimentation Rate 17 MM/HR (0-20)
[2023-04-20 17:50] VITALS: BP 193/130; PULSE 78; RESP 17; TEMP 36.7; O2SAT 100
== END 2023-04-20 17:53 | disposition home or self-care (01) ==
PROVIDERS: Emergency Medicine; Emergency Provider Emergency Medicine; PCP Nurse Practitioner Family
DX: H54.7 Unspecified visual loss (principal); R51.9 Headache, unspecified; R06.02 Shortness of breath; R94.31 Abnormal electrocardiogram [ECG] [EKG]; F17.210 Nicotine dependence, cigarettes, uncomplicated; Z71.6 Tobacco abuse counseling; Z79.899 Other long term (current) drug therapy
CPT/HCPCS: 36415; 70450; 70551; 80048; 83880; 84484; 85025; 85610; 85652; 85730; 86140; 93005; 99284; 99285

== ENCOUNTER → 2023-04-20 13:51 | Outpatient (BNV) | payer MEDICARE, MEDICAID, SELFPAY ==
[2021-09-27 11:09] VITALS: BP 190/120; BMI 29.0
== END ==
PROVIDERS: Emergency Provider Emergency Medicine; PCP Nurse Practitioner Family; Visit Provider Internal Medicine
DX: R94.31 Abnormal electrocardiogram [ECG] [EKG] (principal); I42.9 Cardiomyopathy, unspecified
CPT/HCPCS: 93010

== ENCOUNTER 2023-05-18 13:08 | Outpatient (AMB) | payer MEDICARE, MEDICAID, SELFPAY ==
[2021-09-27 11:09] VITALS: BP 190/120; BMI 29.0
--- NOTE | 2023-05-18 13:11 | MHC.OFFVIS ---
Intake Vital Signs 05/18/23 13:12 Height 5 ft 7 in Weight 217 lb 9.54 oz BMI 34.1 BP 120/76 Blood Pressure Location Lt brachial Position Sitting Pulse 82 Pulse Source Pulse Oximeter Intake Visit Reasons: DM-confirmed Intake Note: Patient present today to follow up on Type 2 Diabetes Mellitus. Patient last seen on 09/27/2021. Last Diabetic Eye exam: 12/2022 Last Podiatry Visit: None Random Glucose: 314 mg/dl HgA1C: 6.3% Fashion Stylist Required: No Accompanied by: Self / Same As Patient Allergies amoxicillin Allergy (Unknown, Verified 05/18/23 13:17) rash cefaclor [From Ceclor] Allergy (Unknown, Verified 05/18/23 13:17) RASH cephalexin Allergy (Unknown, Verified 05/18/23 13:17) rash Cephalosporins [CEPHALOSPORINS] Allergy (Unknown, Verified 05/18/23 13:17) RASH ALL OVER cephradine [From VELOSEF] Allergy (Unknown, Verified 05/18/23 13:17) RASH Penicillins [PENICILLINS] Allergy (Unknown, Verified 05/18/23 13:17) RASH gabapentin [GABAPENTIN] Adverse Reaction (Unknown, Verified 05/18/23 13:17) RESTLESS LEGS, Body becomes very uncomfortable Medication List - Last Reconciled 05/18/23 by Ubaldo John MD albuterol sulfate 90 mcg/actuation 1 inh inhalation QID PRN 30 days aspirin 81 mg PO DAILY 90 days blood pressure test kit-large daily use blood sugar diagnostic (FreeStyle Lite Strips) As directed- tests 4X/day blood-glucose meter (FreeStyle Lite Meter kit) As directed tests 4 X/day carvedilol 50 mg PO BID dulaglutide (Trulicity) 1.5 mg subcut TH lancets (FreeStyle Lancets) As directed- tests 4X/day nifedipine ER 1 tab PO BID sacubitril-valsartan 97-103 mg (Entresto) 1 tab PO BID spironolactone 100 mg PO DAILY torsemide 2 tabs PO DAILY PRN HPI HPI Comments History of Present Illness Details 43 YO F who is seen in consultation for T2DM at the request of PCP. Initially diagnosed with T2DM in 17 yrs ago . Was initially started on treatment with METFORMIN. Current regimen XIGDUO . 10/1000mg QD D/C by renal Nick 1.5 mg Qwkly Unfortunately, Did not bring glucometer or log book to visit Family history of T2DM in father and brother . Has eyes checked yearly, last eye exam , denies retinopathy. Denies neuropathy, not sees podiatry. Has CKD stage 3 nephropathy, on NANETTE/ARB. Has HLD,Not on statin. Foolowed by cardiology Denies CAD.Has CM Not Had diabetes education recently . [facility] Medical History (Updated 05/05/23 @ 18:04 by Mauricio Nolasco, [facility]) Macular edema Diabetic retinopathy CHF (congestive heart failure) Malignant hypertension CKD (chronic kidney disease) Heart block AV second degree Hypersomnia Cardiomyopathy CKD (chronic kidney disease) stage 2, GFR 60-89 ml/min Nicotine dependence, cigarettes, uncomplicated (~1999) Eclampsia Fatty liver Heart failure, unspecified (~09/2020) History of DVT (deep vein thrombosis) Diabetes mellitus Migraines Sjogren's disease Lupus Rheumatoid arthritis High cholesterol Anxiety PTSD (post-traumatic stress disorder) Bipolar 1 disorder H/O mixed connective tissue disease HTN (hypertension) Surgical History History of hysterectomy History of bronchoscopy (~11/2020) History of cholecystectomy (~05/2014) Family History Father Substance use disorder Mental health disorder Brother Substance use disorder Mental health disorder Brother Substance use disorder Mental health disorder Other Diabetes HTN (hypertension) Social History Household Members: Children Household Members Other:: 3 Housing: House Are you a primary customer care associate to a significant other at home: No Do you presently have visiting nurse or other home services: No Alcohol intake: never Patient Tobacco Use Status: Current everyday Tobacco user Tobacco use type: Cigarette Cigarette Packs Per Day: 0.5 Cigarettes Per Day: 10 Years Smoked: 20 e-Cigarette/Vaping Use: Never Used Second Hand Smoke Exposure: No Substance Use Type: Marijuana Advance Directives Date on File: 06/03/21 service: No Current occupational status: disabled Cognitive needs: No Hearing needs: No Vision needs: No Physical Exam Vital Signs: Last Vital Signs Pulse 82 05/18/23 13:12 BP 120/76 05/18/23 13:12 BMI result Body Mass Index 34.1 Absence of Cushingoid features. Absence of acromegalic features. Neck exam reveals nl size thyroid about 15 gms. No thyroid nodules palpable. No carotid bruits present. Lungs CTA. Heart S1 S2, Reg R/R. No M/R/ G. Skin exam reveals absence of vitiligo or acanthosis nigricans. Abdominal exam reveals Soft NT/ND with NA BS. No organomegaly present. Neck Other: . Extrem Other: Visual exam of foot performed. No ulcerations or open lesions. No onchomycosis, no callouses.Pulses 2 + distally Sensation intact to monofilament exam. Vibratory sensation sensed is decreased with 128 Hz tuning fork Results AMB Hemoglobin A1c AMB Hemoglobin A1c 6.3 % Last Edit by Debbie Carreon on 05/18/23 13:32 Results Reviewed Results Reviewed: Laboratory Last Values Glucose (Clinic) 314 mg/dL (60-115) H 05/18/23 13:21 Assessment & Plan Assessment & Plan (1) Uncontrolled type 2 diabetes mellitus with hyperglycemia: Code(s): E11.65 - Type 2 diabetes mellitus with hyperglycemia Plan: This is a 43-year-old white female with a history of type 2 diabetes being treated the [facility] with uncertain glycemic control and known microvascular complications namely CKD stage 3. Chronic kidney and liver disease may affect and falsely lower the hemoglobin A1c. Unfortunately, we have no data to adjust the regimen today Plan is have the patient check her point cares pre and post meals. She was scheduled appointment with the hospice educator. She might be a candidate for professional glucose sensor to see if she requires insulin. If she requires insulin then she will be a candidate for personal sensor which would then be covered. Will check microalbumin to creatinine ratio (2) Diabetes mellitus: Code(s): E11.9 - Type 2 diabetes mellitus without complications Plan: Plan as above Orders: Orders AMB Hemoglobin A1c Today E11.9 - Type 2 diabetes mellitus without complications Microalbumin, Random (w Creat) Today E11.9 - Type 2 diabetes mellitus without complications Medications: Refilled blood-glucose meter (FreeStyle Lite Meter kit) As directed tests 4 X/day 1 ea 0RF blood sugar diagnostic (FreeStyle Lite Strips) As directed- tests 4X/day 100 ea 5RF Coding Level of Care Code Est Pt Level 4 (79636) Diagnoses Uncontrolled type 2 diabetes mellitus with hyperglycemia E11.65 Diabetes mellitus E11.9
[2023-05-18 13:12] VITALS: BP 120/76; PULSE 82; BMI 34.1
[2023-05-18 13:25] LABS: Glucose, Whole Blood 314 mg/dL (60-115)
== END 2023-05-18 13:37 | disposition home or self-care (01) ==
PROVIDERS: PCP Nurse Practitioner Family; Visit Provider Internal Medicine Endocrinology, Diabetes & Metabolism
DX: E11.65 Type 2 diabetes mellitus with hyperglycemia (principal); E11.9 Type 2 diabetes mellitus without complications
CPT/HCPCS: 99214

== ENCOUNTER → 2023-05-18 13:08 | Outpatient (BNVA) | payer MEDICARE, MEDICAID, SELFPAY ==
[2021-09-27 11:09] VITALS: BP 190/120; BMI 29.0
== END ==
PROVIDERS: PCP Nurse Practitioner Family; Visit Provider Internal Medicine Endocrinology, Diabetes & Metabolism
DX: E11.65 Type 2 diabetes mellitus with hyperglycemia (principal); E11.22 Type 2 diabetes mellitus with diabetic chronic kidney disease; N18.30 Chronic kidney disease, stage 3 unspecified; Z79.85 Long-term (current) use of injectable non-insulin antidiabetic drugs
CPT/HCPCS: 82947; 83036; 99212

== ENCOUNTER 2023-06-07 06:56 | Inpatient (IN) | payer MEDICARE, MEDICAID, SELFPAY ==
[2023-05-18 13:38] VITALS: BP 190/120; BMI 29.0
[2023-06-07] VITALS (9 sets, daily range): BP systolic 137–205; BP diastolic 81–130; PULSE 73–78; RESP 12–20; TEMP 36.5–36.7; O2SAT 96–99; BMI 33.9
--- NOTE | 2023-06-07 | ECG_ITS ---
Test Reason : chest pain Blood Pressure : / mmHG Vent. Rate : 072 BPM Atrial Rate : 072 BPM P-R Int : 152 ms QRS Dur : 090 ms QT Int : 428 ms P-R-T Axes : 044 000 144 degrees QTc Int : 468 ms Normal sinus rhythm Left ventricular hypertrophy with repolarization abnormality ( R in aVL , Sokolow-Abarca , Omar product , Romhilt-Peres ) Abnormal ECG When compared with ECG of 07-JUN-2023 09:32, No significant change was found Referred By: Noe Suarez Electronically Signed By:Mike Mccray
--- NOTE | ~2023-06-07 | US_ITS ---
EXAMINATION: ULTRASOUND OF KIDNEYS WITH RENAL ARTERY DOPPLER CLINICAL INFORMATION: Hypertension. COMPARISON: Renal ultrasound 06/08/2023. TECHNIQUE: Ultrasound of the kidneys was performed along with color flow Doppler imaging and velocity measurements in the proximal mid and distal renal arteries. Aortic velocities were measured and renal/aortic ratios were calculated. Resistive indices were obtained. FINDINGS: The kidneys appeared unremarkable with the right kidney measuring 10.4 x 3.9 x 3.6 cm and the left kidney measuring 8.6 x 3.8 x 4.4 cm. Visualization of the left kidney was impaired by marked bowel gas. No renal masses, renal stones or hydronephrosis is seen. Renal cortical thickness appears normal. Velocity measurements in the proximal mid and distal renal arteries on the right are normal with a maximum of 127 cm/s. On the left, only the distal renal artery could be seen with a normal velocity of 79 cm/s are normal. Velocity in the aorta is 147 cm/s and, therefore, could not be used due to calculi renal aortic ratios . Segmental resistive indices were obtained although the left upper pole could not be seen. They are normal. US/US renal doppler IMPRESSION: No evidence to suggest renal artery stenosis.
--- NOTE | ~2023-06-07 | US_ITS ---
EXAMINATION: ULTRASOUND OF KIDNEYS WITH RENAL ARTERY DOPPLER CLINICAL INFORMATION: Hypertension. COMPARISON: Renal ultrasound 06/08/2023. TECHNIQUE: Ultrasound of the kidneys was performed along with color flow Doppler imaging and velocity measurements in the proximal mid and distal renal arteries. Aortic velocities were measured and renal/aortic ratios were calculated. Resistive indices were obtained. FINDINGS: The kidneys appeared unremarkable with the right kidney measuring 10.4 x 3.9 x 3.6 cm and the left kidney measuring 8.6 x 3.8 x 4.4 cm. Visualization of the left kidney was impaired by marked bowel gas. No renal masses, renal stones or hydronephrosis is seen. Renal cortical thickness appears normal. Velocity measurements in the proximal mid and distal renal arteries on the right are normal with a maximum of 127 cm/s. On the left, only the distal renal artery could be seen with a normal velocity of 79 cm/s are normal. Velocity in the aorta is 147 cm/s and, therefore, could not be used due to calculi renal aortic ratios . Segmental resistive indices were obtained although the left upper pole could not be seen. They are normal. US/US renal BI IMPRESSION: No evidence to suggest renal artery stenosis.
--- NOTE | ~2023-06-07 | MR_ITS ---
EXAMINATION: MR BRAIN WITHOUT CONTRAST CLINICAL INFORMATION: Vision changes. Uncontrolled hypertension. 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 COMPARISON: Brain MRI 04/20/2023. TECHNIQUE: MRI of the brain was obtained using routine sequences without contrast. FINDINGS: Again there are numerous foci of T2 FLAIR signal hyperintensity primarily involving the periventricular white matter, basal ganglia, thalami, and conchita. On the midline sagittal T1 image a chronic lesion appears to be centrally located within the genu of the corpus callosum, best visualized on image 13 of 24 series 3. No acute territorial infarct. Again there are small linear foci of susceptibility artifact located within the left putamen and within the posterior limb of left internal capsule as junction with the left thalamus. Intracranial vascular flow voids are grossly maintained. There is no intracranial mass effect or midline shift. No abnormal extra-axial collection. Lateral and third ventricles are normal. No hydrocephalus. Midline structures including the cervicomedullary junction are normal. No acute bone marrow signal changes. There is no mastoid middle ear effusion. Mild paranasal sinus disease primarily affecting the ethmoid air cells. Globes and orbits are symmetric. MR/MR head/brain wo con IMPRESSION: Again there is relatively extensive chronic white matter disease with a periventricular predominant distribution. There is also chronic disease involving the basal ganglia, thalami, and conchita. One of the callosal lesions located within the central portion of the genu. 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 Chronic changes related to other ischemic, inflammatory, or demyelinating etiologies cannot be definitively excluded on the basis of this examination. No evidence of acute territorial infarct or hemorrhage.
--- NOTE | ~2023-06-07 | US_ITS ---
EXAMINATION: US RETROPERITONEAL COMPLETE (RENAL) CLINICAL INFORMATION: MAYURI. COMPARISON: Ultrasound abdomen complete 05/17/2015 and 05/06/2014. CT abdomen and pelvis 05/06/2014. TECHNIQUE: Real-time imaging of the kidneys and bladder. Limited visualization due to bowel gas. FINDINGS: RIGHT KIDNEY: 10.3 x 4.1 x 4.7 cm (SAG x AP x TRV). No renal calculi. Limited visualization. Borderline mild renal cortical thinning. Possible extrarenal pelvis versus mild fullness right renal collecting system. LEFT KIDNEY: 8.8 x 4.3 x 4.8 cm (SAG x AP x TRV No hydronephrosis. No renal calculi. Limited visualization. Borderline mild diffuse renal cortical thinning 1.6 cm upper pole cyst. There is no indication for follow-up imaging. BLADDER: Well-distended. Postvoid images were not obtained per rotating equipment engineer as patient was in ED with cardiac event. Bilateral ureteral jets are demonstrated. Prevoid bladder volume is 353 mL. Postvoid bladder volume was not obtained. US/US retroperitoneal comp IMPRESSION: 1. Possible extrarenal pelvis versus mild fullness right renal collecting system. 2. Borderline mild diffuse renal cortical thinning. 3. No hydronephrosis. No renal calculi. Limited visualization.
--- NOTE | ~2023-06-07 | IR_ITS ---
CLINICAL HISTORY: End-stage renal disease. The patient presents to interventional radiology for placement of a tunneled central venous catheter for hemodialysis. PROCEDURES: 1. Real-time ultrasound-guided access into the right internal jugular vein after documentation of selected vessel patency, and permanent imaging storing in the patient record. 2. Placement of a 14.5 fr 27 cm tunneled, dual-lumen hemodialysis catheter. Clinician: Ken Vaz PA-C MEDICATIONS: -Fentanyl 75 mcg, Lidocaine 1% 10 mL SQ. -Antibiotics: Clindamycin -For additional details, please see nursing flowsheet. COMPLICATIONS: None. ESTIMATED BLOOD LOSS: <5 ml SPECIMENS: None FLUOROSCOPY TIME: 0.9 min PROCEDURE NOTE: The procedure, risks, benefits, and alternatives were carefully explained to patient, and written informed consent was obtained. The patient was placed supine on the fluoroscopy table. A timeout was performed. The right neck and chest was prepped and draped in usual sterile fashion. Local anesthesia was administered to the access site with lidocaine. Under ultrasound guidance, the right internal jugular vein was accessed with a 5 Fr micropuncture set. A 0.035 in wire was advanced to the IVC to maintain access during the tunneling process. Next, subcutaneous lidocaine was administered to the chest. Using blunt dissection, a subcutaneous tunnel was created that connects from the upper chest to the venotomy site. The dialysis catheter was pulled through the tunnel. The tract in the vein was dilated and a peel-away sheath was advanced over the wire. The catheter was advanced through the sheath, which was subsequently peeled away. The catheter was tested, flushed, and sutured to the skin with its tip in the high right atrium. A permanent fluoroscopic image of the chest was saved to PACS. The catheter ports were packed with heparin per routine protocol. The patient was stable after the procedure and was transferred to the post anesthesia care unit. This procedure was performed under moderate sedation with a dedicated nurse and continuous monitoring of vital signs. FINDINGS: 1. Patent right internal jugular vein. 2. Placement of a tunneled, dual-lumen hemodialysis catheter as above. 3. Catheter flushes and aspirates very well with a 10 mL syringe. No pneumothorax. IR/IR cvc insert central tunnel IMPRESSION: Placement of a tunneled hemodialysis catheter in the right internal jugular vein. PLAN: -The catheter may be used immediately. This procedure was performed by Ken Vaz PA-C, and directly supervised by Dr. Mora.
--- NOTE | ~2023-06-07 | CT_ITS ---
EXAMINATION: CT HEAD WITHOUT CONTRAST CLINICAL INFORMATION: Left eye blurred vision. COMPARISON: Head CT dated 04/20/2023. TECHNIQUE: Contiguous axial imaging was performed from the skullbase to vertex without intravenous administration of contrast. This CT examination was performed using dose optimization techniques as appropriate, variously including the following: *Automated exposure control *Adjustment of mA and/or kV according to patient size (this includes techniques or standardized protocols for targeted exams where dose is matched to indication/reason for exam; i.e. extremities or head) *Use of iterative reconstruction technique DLP: 772 mGy-cm. FINDINGS: There is no evidence of acute intracranial hemorrhage or territorial infarction. No abnormal mass effect or midline shift is seen. No extra-axial fluid collections are identified. Small chronic lacunar infarct again visible in the right basal ganglia. There is [id number]-cfeaguas generalized brain parenchymal volume loss with commensurate ex vacuo dilatation for patient age. Mild to moderate patchy areas of low-density change in the cerebral white matter again noted. Chronic depressed right orbital floor fracture again visualized. The mastoid air cells and visualized portions of the paranasal sinuses are well aerated. CT/CT head/brain wo IV con IMPRESSION: No acute intracranial hemorrhage or territorial infarction. Zfaf-bs-[id number] patchy areas of low-density change in the cerebral white matter which may be due to chronic microangiopathy. Chronic right basal ganglia lacunar infarct. If there is concern for acute pathology, a follow-up MRI of the brain without and with contrast could be obtained for further evaluation.
--- NOTE | ~2023-06-07 | XR_ITS ---
EXAMINATION: XR CHEST CLINICAL INFORMATION: Chest pain. COMPARISON: Most recent chest radiograph dated 10/11/2022. TECHNIQUE: Frontal view of the chest was obtained. FINDINGS: Stable subpleural opacity within the left lower lobe. No new airspace consolidation. Stable cardiomegaly. No pleural effusion or pneumothorax. Healed left-sided rib fractures, unchanged. XR/XR chest 1V IMPRESSION: 1. Stable subpleural opacity within the left lower lobe. No new airspace consolidation. 2. Stable cardiomegaly.
--- NOTE | ~2023-06-07 | US_ITS ---
EXAMINATION: US EXTRACRANIAL CAROTID DUPLEX, BILATERAL CLINICAL INFORMATION: Vision changes COMPARISON: None available. TECHNIQUE: Real-time ultrasound and Doppler techniques (integrating B-mode 2-D vascular images, Doppler spectral analysis and color-flow Doppler imaging) were utilized to interrogate the extracranial carotid arteries, the vertebral arteries and proximal subclavian arteries bilaterally. The degree of stenosis is determined by criteria similar to NASCET. FINDINGS: Right Side: 1. There is no significant atherosclerotic plaque seen in the bifurcation/proximal ICA region. 2. The common carotid artery PSV proximally is 98 cm/s and distally 75 cm/s. 3. The proximal internal carotid artery velocities are 64 cm/s systolic and 27 cm/s diastolic. 4. The proximal external carotid artery PSV is 100 cm/s. 5. The vertebral artery shows antegrade flow. 6. The subclavian artery waveforms are normal. Left Side: 1. There is no significant atherosclerotic plaque seen in the bifurcation/proximal ICA region. 2. The common carotid artery PSV proximally is 114 cm/s and distally 90 cm/s. 3. The proximal internal carotid artery velocities are 81 cm/s systolic and 26 cm/s diastolic. 4. The proximal external carotid artery PSV is 95 cm/s. 5. The vertebral artery shows antegrade flow. 6. The subclavian artery waveforms are normal. US/US carotid duplex BI IMPRESSION: 1. RIGHT: Normal right internal carotid artery without atherosclerotic plaque or hemodynamically significant stenosis. 2. LEFT: Normal left internal carotid artery without atherosclerotic plaque or hemodynamically significant stenosis.
--- NOTE | 2023-06-07 07:07 | ECG_ITS ---
Test Reason : CP Blood Pressure : / mmHG Vent. Rate : 071 BPM Atrial Rate : 071 BPM P-R Int : 158 ms QRS Dur : 090 ms QT Int : 454 ms P-R-T Axes : 057 -02 144 degrees QTc Int : 493 ms Normal sinus rhythm Possible Left atrial enlargement Left ventricular hypertrophy with repolarization abnormality ( R in aVL , Omar product ) Prolonged QT Abnormal ECG When compared with ECG of 20-APR-2023 17:34, No significant change was found Referred By: Christi Villanueva Electronically Signed By:MANJEET DUVALL
--- NOTE | 2023-06-07 07:17 | ED.CHESTPAIN ---
HPI - Chest Pain General Chief Complaint: Chest Pain Stated Complaint: chest pain Time Seen by Provider: 06/07/23 07:06 Source: patient and EMS Mode of arrival: EMS History of Present Illness HPI narrative: 43-year-old female with significant CKD, currently on the transplant list who is brought in by EMS this morning for onset of chest pain that radiated into the right arm and then into the left with associated nausea, vomiting and she notes that she has been experiencing off and on bilateral lower extremity edema which is new for her and states that typically she just gets the water in her lungs. EMS reports that her blood pressure systolic was 240, patient reports that she is taking all of her prescribed medications to include diuretics and blood pressure. Patient received nitro and route in at this time states that she is feeling much better and has had no further episodes of nausea or vomiting. Patient denies alcohol or drug use but is an everyday smoker. Related Data Home Medications Medication Instructions Recorded Confirmed carvedilol 25 mg tablet 50 mg PO BID 03/20/22 12/15/22 nifedipine 90 mg tablet,extended 1 tab PO BID 04/22/22 12/15/22 release 24 hr dulaglutide 1.5 mg/0.5 mL 1.5 mg subcut TH 05/28/22 12/15/22 subcutaneous pen injector (Trulicity) torsemide 20 mg tablet 2 tab PO DAILY PRN Edema 05/28/22 12/15/22 sacubitril 97 mg-valsartan 103 mg 1 tab PO BID 08/20/22 12/15/22 tablet (Entresto) spironolactone 100 mg tablet 100 mg PO DAILY 05/18/23 Previous Rx's Medication Instructions Recorded lancets 28 gauge (FreeStyle #100 ea 03/20/22 Lancets) blood pressure test kit-large #1 ea 03/25/22 aspirin 81 mg tablet,delayed 81 mg PO DAILY 90 days #90 tabs 09/18/22 release albuterol sulfate 90 mcg/actuation 1 inh inhalation QID PRN Wheezing 05/05/23 aerosol inhaler 30 days #8.5 grams blood sugar diagnostic (FreeStyle #100 ea 05/18/23 Lite Strips) blood-glucose meter (FreeStyle #1 ea 05/18/23 Lite Meter kit) Allergies Allergy/AdvReac Type Severity Reaction Status Date / Time amoxicillin Allergy Unknown rash Verified 05/18/23 13:17 cefaclor [From Ceclor] Allergy Unknown RASH Verified 05/18/23 13:17 cephalexin Allergy Unknown rash Verified 05/18/23 13:17 Cephalosporins Allergy Unknown RASH ALL Verified 05/18/23 13:17 [CEPHALOSPORINS] OVER cephradine [From VELOSEF] Allergy Unknown RASH Verified 05/18/23 13:17 Penicillins [PENICILLINS] Allergy Unknown RASH Verified 05/18/23 13:17 gabapentin [GABAPENTIN] AdvReac Unknown RESTLESS Verified 05/18/23 13:17 LEGS, Body becomes very uncomfortable Review of Systems Review of Systems: Pertinent positives and negatives as stated in HPI [facility] Past Medical History Source: nursing notes reviewed Medical History CKD (chronic kidney disease) Hypertensive retinopathy Macular edema Diabetic retinopathy CHF (congestive heart failure) Malignant hypertension Heart block AV second degree Hypersomnia Cardiomyopathy CKD (chronic kidney disease) stage 2, GFR 60-89 ml/min Nicotine dependence, cigarettes, uncomplicated (~1999) Eclampsia Fatty liver Heart failure, unspecified (~09/2020) History of DVT (deep vein thrombosis) Diabetes mellitus Migraines Sjogren's disease Lupus Rheumatoid arthritis High cholesterol Anxiety PTSD (post-traumatic stress disorder) Bipolar 1 disorder H/O mixed connective tissue disease HTN (hypertension) Surgical History History of hysterectomy History of bronchoscopy (~11/2020) History of cholecystectomy (~05/2014) Family History Family History Father Substance use disorder Mental health disorder Brother Substance use disorder Mental health disorder Brother Substance use disorder Mental health disorder Other Diabetes HTN (hypertension) Social History Social History Household Members: Children Household Members Other:: 3 Housing: House Are you a primary toddler caregiver to a significant other at home: No Do you presently have visiting nurse or other home services: No Alcohol intake: never Patient Tobacco Use Status: Current everyday Tobacco user Tobacco use type: Cigarette Cigarette Packs Per Day: 0.5 Cigarettes Per Day: 10 Years Smoked: 20 e-Cigarette/Vaping Use: Never Used Second Hand Smoke Exposure: No Substance Use Type: Marijuana Advance Directives: Yes Advance Directives on File: Yes Advance Directives Date on File: 06/03/21 service: No Current occupational status: disabled Cognitive needs: No Hearing needs: No Vision needs: No Physical Exam Vital Signs: Vital Signs: Last Vital Signs Temp 98.1 F 06/07/23 07:28 Pulse 73 06/07/23 08:17 Resp 18 06/07/23 08:17 BP 176/81 H 06/07/23 08:17 Pulse Ox 96 06/07/23 08:17 O2 Del Method Room Air 06/07/23 08:17 BMI result Body Mass Index 33.9 VITAL SIGNS: Reviewed. GENERAL: Well developed, well nourished, in no acute distress. HEAD: Normocephalic/atraumatic EYES: PERRLA, EOMI EARS: Ext canals without abnormality NOSE: Nares patent bilateral OROPHARYNX: no oral lesions noted, posterior pharynx clear NECK: Supple, no adenopathy LUNGS: Normal breath sounds, no appreciated bibasilar rales, no tachypnea or increased work of breathing. No adventitious sounds or accessory muscle use. CARDIOVASCULAR: Regular rate and rhythm without noted murmurs, no JVD trace pitting bilateral lower extremity edema, 1+ bilateral dorsum of feet ABDOMEN: Soft, non-tender, non-distended with bowel sounds. MUSCULOSKELETAL: No tenderness, deformities, or effusions noted on gross inspection. EXTREMITIES: No cyanosis, clubbing or edema. SKIN: Inspection of the skin reveals no rashes NEUROLOGIC: Alert and oriented x 4. Strength and sensation to light touch were grossly intact x 4. Medications Administered Discontinued Medications Generic Name Dose Route Start Last Admin Trade Name Lennoxq PRN Reason Stop Dose Admin Carvedilol 25 mg 06/07/23 07:41 06/07/23 08:00 Carvedilol 25 Mg Tablet PO 06/07/23 07:42 25 mg ONCE ONE Administration Protocol Nifedipine 90 mg 06/07/23 07:39 06/07/23 08:01 Nifedipine Er 30 Mg Tab.Er.24 PO 06/07/23 07:40 90 mg ONCE ONE Administration Protocol Spironolactone 100 mg 06/07/23 07:41 06/07/23 08:00 Spironolactone 25 Mg Tablet PO 06/07/23 07:42 100 mg ONCE ONE Administration Protocol Torsemide 20 mg 06/07/23 07:41 06/07/23 08:00 Torsemide 20 Mg Tablet PO 06/07/23 07:42 20 mg ONCE ONE Administration Protocol Medical Decision Making Medical Decision Making [facility] Narrative: 43-year-old female with history and clinical presentation, DDX: Viral gastroenteritis, ACS felt to be less likely though suspect hypertensive crisis with chest pain that is now resolved with reduction of blood pressure. I reviewed all investigations and hematologic indices are chronically stable without leukocytosis/normocytic anemia and no thrombocytopenia. Coagulation studies are within normal limits. Chemistry indices demonstrate known CKD with mild worsening and likely has contributed to patient's episode of malignant hypertension, I sensitivity troponin is 190 without acute changes on EKG, BNP is noted to be elevated but this is a chronic finding and minimal clinical evidence to suggest acute CHF exacerbation. Urinalysis is negative for UTI or hematuria. Chest x-ray does not demonstrate infiltrate or venous congestion and does identify chronically stable subpleural opacity within the left lower lobe. 0911: I discussed case with Dr. Garcia. Recommends BP control, admission, trend Trops. 0915: Patient reports chest pressure, got repeat EKG which does not show any acute changes, discussed with Dr. Garcia at 09:42 and 1st 2 recommendations of admission/blood pressure control and troponin trending. Second troponin is pending. 0944: I discussed the case with inpatient hospitalist who accepts admission. Differential Diagnosis Differential Diagnoses: The differential diagnosis associated with the presentation includes Please see the discussion above Admission/Observation Consideration of admission/observation: Escalation of care including admission/observation considered Please see the discussion above Consult Healthcare Provider Management of the patient was discussed with: Hospitalist and Vascular Manager Please see the discussion above Lab Data [facility] Lab Attestation statement: I reviewed the patient's lab results. Please see the discussion above 06/07/23 08:18 06/07/23 08:18 Labs: Lab Results 06/07/23 06/07/23 Range/Units 07:55 08:18 WBC 8.2 (4.8-10.8) X10*3/uL RBC 2.90 L (4.20-5.50) X10*6/uL Hgb 9.2 L (12.0-16.0) g/dl Hct 27.2 L (37.0-47.0) % MCV 93.8 (80.0-98.0) fL MCH 31.7 (27.0-33.0) pg MCHC 33.8 (31.0-35.0) g/dl RDW 15.4 (11.0-16.0) % Plt Count 335 (160-400) X10*3/uL MPV 9.4 (9.4-12.3) fL Immature Gran % (Auto) 0.4 (0.0-0.4) % Neut % (Auto) 80.1 H (45-73) % Lymph % (Auto) 10.5 L (20-40) % [place] % (Auto) 7.0 (2-11) % Eos % (Auto) 1.6 (0-4) % Baso % (Auto) 0.4 (0-2) % Lymph # (Auto) 0.9 L (1.2-4.9) X10*3/uL [place] # (Auto) 0.6 (0.1-1.2) X10*3/uL Eos # (Auto) 0.1 (0.0-0.4) X10*3/uL Baso # (Auto) 0.0 (0.0-0.2) X10*3/uL Abs Immat Gran (auto) 0.03 (0.00-0.03) X10*3/uL Absolute Neuts (auto) 6.6 (2.0-8.3) x10*3/uL Absolute Nucleated RBC 0.000 (0.0-0.012) X10*3/uL Nucleated RBC % (auto) 0.0 (0.0-0.2) /100WBC PT 12.7 (11.1-13.3) SEC INR 1.0 (0.9-1.1) Sodium 134 L (135-145) mmol/L Potassium 4.6 (3.3-5.1) mmol/L Chloride 99 (96-108) mmol/L Carbon Dioxide 26 (22-29) mmol/L Anion Gap 14 (12-20) BUN 60 H (9-16) mg/dL Creatinine 4.19 H* (0.5-1.4) mg/dL Estim Creat Clear Calc 21.3 Estimated GFR 12 Random Glucose 273 H (60-115) mg/dL Calcium 6.3 L D (8.4-10.2) mg/dL Total Bilirubin 0.4 (0.0-1.0) mg/dL AST 12 (5-31) U/L ALT 11 (0-31) U/L Alkaline Phosphatase 118 H (39-117) U/L Troponin I High Sens 190.0 H* D (<3.5-17.0) ng/L B-Natriuretic Peptide 2535 H (<100) pg/mL Total Protein 5.3 L (6.5-8.0) g/dL Albumin 3.2 L (3.5-5.0) g/dL Urine Color Yellow Urine Appearance Cloudy Urine pH 7.5 (5.0-9.0) Ur Specific [place] 1.010 (1.005-1.025) Urine Protein 300 (3+) H (Neg-Trace) mg/dL Urine Glucose (UA) 500 H (Negative) mg/dL Urine Ketones Negative (Negative) mg/dL Urine Blood Trace H (Negative) Urine Nitrite Negative (Negative) Ur Leukocyte Esterase Negative (Negative) Urine RBC 0-2 (0-2) /HPF Urine WBC 0-5 (0-5) /HPF Ur Squamous Epith Cells 6-10 (0-2) /HPF Urine Bacteria 2+ (None Seen) Hyaline Casts 0-2 (0-2) /LPF Independent Interpretation I performed an independent interpretation of an: EKG Interpretation: 0716: Normal sinus rhythm, HR-71, no STEMI, MI/QRS are within normal limits there is noted mild QTC prolongation. There are no acute changes when compared to 04/20/2023. 0932: Normal sinus rhythm, HR-72, no STEMI, MI/QRS are within normal limits with mild prolonged QTC-486. Radiology Impression Discussion of test interpretation with radiology: I have reviewed the radiologist's reading. Radiologist Impression: Please see the discussion above External Record Review External record reviewed: Office record, Outpatient record, Prior outpatient labs and Prior outpatient radiology Chronic Conditions Patient?s care impacted by: Diabetes and Hypertension Critical Care Time Critical Care Time Critical Care Time: Yes Total Critical Care Time: 60 Attestation: I personally attest to this time spent taking care of the patient. Discharge Plan Discharge Clinical Impression: Malignant hypertension, Chest pain Patient Disposition: Admitted As Inpatient Prescriptions: No Action (DME) lancets [FreeStyle Lancets] 28 gauge misc See Rx Instructions .Route Qty: 100 4RF Rx Instructions: As directed- tests 4X/day (DME) blood pressure test kit-large Kit See Rx Instructions .Route Qty: 1 0RF Rx Instructions: daily use aspirin 81 mg tablet,delayed release (DR/EC) 81 mg PO DAILY 90 Days Qty: 90 1RF albuterol sulfate 90 mcg/actuation HFA aerosol inhaler 1 inh inhalation QID PRN (Reason: Wheezing) 30 Days Qty: 8.5 1RF carvedilol 25 mg tablet 50 mg PO BID nifedipine 90 mg tablet extended release 24hr 1 tab PO BID torsemide 20 mg tablet 2 tab PO DAILY PRN (Reason: Edema) Trulicity 1.5 mg/0.5 mL Pen Injector 1.5 mg SUBCUT TH Entresto 97-103 mg tablet 1 tab PO BID spironolactone 100 mg tablet 100 mg PO DAILY (DME) blood-glucose meter [FreeStyle Lite Meter] Kit See Rx Instructions .Route Qty: 1 0RF Rx Instructions: As directed tests 4 X/day (DME) FreeStyle Lite Strips Strip See Rx Instructions .Route Qty: 100 5RF Rx Instructions: As directed- tests 4X/day
[2023-06-07] MEDS: Spironolactone 25 MG TABLET 100 MG PO (08:00)
[2023-06-07] MEDS: carvediloL 25 MG TABLET PO (08:00)
[2023-06-07] MEDS: Torsemide 20 MG TABLET PO (08:00)
[2023-06-07] MEDS: NIFEdipine ER 30 MG TAB.ER.24 90 MG PO (08:01)
[2023-06-07 08:02] LABS: Appearance Urine Cloudy; Color Urine Yellow; Glucose Urine UA 500 mg/dL (Negative); Leukocyte Esterase Urine Negative (Negative); Nitrite Urine Negative (Negative); PH 7.5 (5.0-9.0); UMIC TRIGGER UACC YES; Urine Blood Trace (Negative); Urine Ketones Negative (Negative); Urine Protein 300 (3+) mg/dL (Neg-Trace)
[2023-06-07 08:04] LABS: Bacteria Urine 2+ (None Seen); Hyaline Casts Urine 0-2 /LPF (0-2); RBC Urine 0-2 /HPF (0-2); WBC Urine 0-5 /HPF (0-5)
[2023-06-07 08:22] LABS: MANUAL DIFF FLAG NO
[2023-06-07 08:23] LABS: Basophils Percent Auto 0.4 % (0-2); Eosinophils Absolute Auto 0.1 X10*3/uL (0.0-0.4); Eosinophils Percent Auto 1.6 % (0-4); Hematocrit 27.2 % (37.0-47.0); Hemoglobin 9.2 g/dl (12.0-16.0); Imm Gran Abs Auto 0.03 X10*3/uL (0.00-0.03); Imm Gran Pct Auto 0.4 % (0.0-0.4); Lymphocytes Absolute Auto 0.9 X10*3/uL (1.2-4.9); Lymphocytes Percent Auto 10.5 % (20-40); Mean Corpuscular HGB Conc 33.8 g/dl (31.0-35.0); Mean Corpuscular Hemoglobin 31.7 pg (27.0-33.0); Mean Corpuscular Volume 93.8 fL (80.0-98.0); Mean Platelet Volume 9.4 fL (9.4-12.3); Monocytes Absolute Auto 0.6 X10*3/uL (0.1-1.2); Neutrophils Absolute Auto 6.6 x10*3/uL (2.0-8.3); Neutrophils Percent Auto 80.1 % (45-73); Platelet Count 335 X10*3/uL (160-400); Red Cell Distribution Width 15.4 % (11.0-16.0); White Blood Count 8.2 X10*3/uL (4.8-10.8)
[2023-06-07 08:29] LABS: Prothrombin Time 12.7 SEC (11.1-13.3)
[2023-06-07 08:42] LABS: Alanine Aminotransferase 11 U/L (0-31); Albumin Level 3.2 g/dL (3.5-5.0); Alkaline Phosphatase 118 U/L (39-117); Anion Gap 14 (12-20); Aspartate Amino Transferase 12 U/L (5-31); Bilirubin Total 0.4 mg/dL (0.0-1.0); Blood Urea Nitrogen 60 mg/dL (9-16); Calcium 6.3 mg/dL (8.4-10.2); Carbon Dioxide 26 mmol/L (22-29); Chloride 99 mmol/L (96-108); Creatinine Clr Calc Pharmacy 21.3; Estimated Glomerular Filt Rate 12; Glucose Random 273 mg/dL (60-115); Potassium 4.6 mmol/L (3.3-5.1); Sodium 134 mmol/L (135-145); Total Protein 5.3 g/dL (6.5-8.0)
[2023-06-07 08:43] LABS: B Type Natriuretic Peptide 2535 pg/mL (<100)
--- NOTE | 2023-06-07 09:19 | ECG_ITS ---
Test Reason : CHEST PRESSURE Blood Pressure : / mmHG Vent. Rate : 072 BPM Atrial Rate : 072 BPM P-R Int : 158 ms QRS Dur : 098 ms QT Int : 444 ms P-R-T Axes : 049 002 149 degrees QTc Int : 486 ms Normal sinus rhythm Possible Left atrial enlargement Left ventricular hypertrophy with repolarization abnormality ( R in aVL , Sokolow-Abarca , [place] product , Romhilt-Peres ) Prolonged QT Abnormal ECG When compared with ECG of 07-JUN-2023 07:16, No significant change was found Referred By: Christi Villanueva Electronically Signed By:Mike Mccray
[2023-06-07 10:24] LABS: Troponin-I High Sensitivity 437.7 ng/L (<3.5-17.0)
[2023-06-07] MEDS: Nitroglycerin 2 % Oint 1 GM Packet 1 INCH TRANSDERMA ×3 (10:58→23:21)
--- NOTE | 2023-06-07 11:07 | P.HPHOSP_ITS ---
History of Present Illness Date of Service: 06/07/23 Chief Complaint: Hypertension with chest pain 43-year-old female with significant CKD, currently on the transplant list who is brought in by EMS this morning for onset of chest pain that radiated into the right arm and then into the left with associated nausea, vomiting and she notes that she has been experiencing off and on bilateral lower extremity edema which is new for her and states that typically she just gets the water in her lungs. EMS reports that her blood pressure systolic was 240, patient reports that she is taking all of her prescribed medications to include diuretics and blood pressure. Patient received nitro and route in at this time states that she is feeling much better and has had no further episodes of nausea or vomiting. Patient denies alcohol or drug use but is an everyday smoker. In the emergency room given 1 round of her home meds and admission requested Review of Systems 2 Review of Systems: Admits to chest pain on admission that has resolved Denies shortness of breath Denies nausea vomiting diarrhea Denies fever chills [facility] Medical History CKD (chronic kidney disease) Hypertensive retinopathy Macular edema Diabetic retinopathy CHF (congestive heart failure) Malignant hypertension Heart block AV second degree Hypersomnia Cardiomyopathy CKD (chronic kidney disease) stage 2, GFR 60-89 ml/min Nicotine dependence, cigarettes, uncomplicated (~1999) Eclampsia Fatty liver Heart failure, unspecified (~09/2020) History of DVT (deep vein thrombosis) Diabetes mellitus Migraines Sjogren's disease Lupus Rheumatoid arthritis High cholesterol Anxiety PTSD (post-traumatic stress disorder) Bipolar 1 disorder H/O mixed connective tissue disease HTN (hypertension) Family History Father Substance use disorder Mental health disorder Brother Substance use disorder Mental health disorder Brother Substance use disorder Mental health disorder Other Diabetes HTN (hypertension) Surgical History History of hysterectomy History of bronchoscopy (~11/2020) History of cholecystectomy (~05/2014) Social History Household Members: Children Household Members Other:: 3 Housing: House Are you a primary manager wound care to a significant other at home: No Do you presently have visiting nurse or other home services: No Alcohol intake: never Patient Tobacco Use Status: Current everyday Tobacco user Tobacco use type: Cigarette Cigarette Packs Per Day: 0.5 Cigarettes Per Day: 10 Years Smoked: 20 e-Cigarette/Vaping Use: Never Used Second Hand Smoke Exposure: No Substance Use Type: Marijuana Advance Directives: Yes Advance Directives on File: Yes Advance Directives Date on File: 06/03/21 service: No Current occupational status: disabled Cognitive needs: No Hearing needs: No Vision needs: No Meds Allergies Allergy/AdvReac Type Severity Reaction Status Date / Time amoxicillin Allergy Unknown rash Verified 05/18/23 13:17 cefaclor [From Ceclor] Allergy Unknown RASH Verified 05/18/23 13:17 cephalexin Allergy Unknown rash Verified 05/18/23 13:17 Cephalosporins Allergy Unknown RASH ALL Verified 05/18/23 13:17 [CEPHALOSPORINS] OVER cephradine [From VELOSEF] Allergy Unknown RASH Verified 05/18/23 13:17 Penicillins [PENICILLINS] Allergy Unknown RASH Verified 05/18/23 13:17 gabapentin [GABAPENTIN] AdvReac Unknown RESTLESS Verified 05/18/23 13:17 LEGS, Body becomes very uncomfortable Active Medications: Current Medications Dextrose (Dextrose 50 % 25 Gm/50 Ml Syringe) 25 gm IVPUSH Q15M PRN; Protocol PRN Reason: per Hypoglycemia Standing Ord. Enoxaparin Sodium (Enoxaparin Sodium 30 Mg/0.3 Ml Syringe) 30 mg SUBCUT Q24H [facility]RIAN Glucose (Glucose Gel 15 Gm Gel..Gram.) 15 gm PO Q15M PRN; Protocol PRN Reason: per Hypoglycemia Standing Ord. Insulin Human Lispro (Insulin Lispro 100 Unit/Ml 3 Ml Vial) 0 unit SUBCUT QIDACHS [facility]; Protocol Nitroglycerin (Nitroglycerin 2 % Oint 1 Gm Packet) 1 inch TRANSDERMA Q6H BRIAN Last Admin: 06/07/23 10:58 Dose: 1 inch Ondansetron HCl (Ondansetron Hcl 4 Mg/2 Ml Vial) 4 mg IVPUSH Q4H PRN PRN Reason: nausea Sodium Chloride (0.9 % Sodium Chloride Flush 3 Ml Syringe) [facility] Medications Medication Instructions Recorded Confirmed Last Taken Type carvedilol 25 mg tablet 50 mg PO BID 12/12/15/22 09/07/22 History nifedipine 90 mg tablet,extended 1 tab PO BID 04/22/22 12/15/22 09/07/22 History release 24 hr dulaglutide 1.5 mg/0.5 mL 1.5 mg subcut TH 05/28/22 12/15/22 10/09/22 History subcutaneous pen injector (Trulicity) torsemide 20 mg tablet 2 tab PO DAILY PRN Edema 05/28/22 12/15/22 09/07/22 History sacubitril 97 mg-valsartan 103 mg 1 tab PO BID 08/20/22 12/15/22 09/07/22 History tablet (Entresto) spironolactone 100 mg tablet 100 mg PO DAILY 05/18/23 Unknown History Physical Exam 2 Vital Signs and Narrative: Vital Signs: Last Vital Signs Temp 98.1 F 06/07/23 07:28 Pulse 73 06/07/23 08:17 Resp 18 06/07/23 08:17 BP 176/81 H 06/07/23 08:17 Pulse Ox 96 06/07/23 08:17 O2 Del Method Room Air 06/07/23 08:17 BMI result Body Mass Index 33.9 Const: Other: Awake alert no acute distress Resp: Other: Clear to auscultation bilaterally no rales rhonchi or wheezes Cardio: Other: No S4; positive S1-S2; no S3 murmurs rubs or gallops GI: Other: Soft nontender nondistended normoactive bowel sounds Extrem: Other: Pitting edema bilaterally Results Labs 06/07/23 08:18 06/07/23 08:18 Labs: Laboratory Results - last 24 hr 06/07/23 06/07/23 06/07/23 07:55 08:18 09:53 MCV 93.8 MCH 31.7 MCHC 33.8 RDW 15.4 Plt Count 335 MPV 9.4 Immature Gran % (Auto) 0.4 Neut % (Auto) 80.1 H Lymph % (Auto) 10.5 L [place] % (Auto) 7.0 Eos % (Auto) 1.6 Baso % (Auto) 0.4 Lymph # (Auto) 0.9 L [place] # (Auto) 0.6 Eos # (Auto) 0.1 Baso # (Auto) 0.0 Abs Immat Gran (auto) 0.03 Absolute Neuts (auto) 6.6 Absolute Nucleated RBC 0.000 Nucleated RBC % (auto) 0.0 PT 12.7 INR 1.0 Anion Gap 14 Estim Creat Clear Calc 21.3 Estimated GFR 12 Random Glucose 273 H Calcium 6.3 L D Total Bilirubin 0.4 AST 12 ALT 11 Alkaline Phosphatase 118 H Troponin I High Sens 190.0 H* D 437.7 H* D B-Natriuretic Peptide 2535 H Total Protein 5.3 L Albumin 3.2 L Urine Color Yellow Urine Appearance Cloudy Urine pH 7.5 Ur Specific [place] 1.010 Urine Protein 300 (3+) H Urine Glucose (UA) 500 H Urine Ketones Negative Urine Blood Trace H Urine Nitrite Negative Ur Leukocyte Esterase Negative Urine RBC 0-2 Urine WBC 0-5 Ur Squamous Epith Cells 6-10 Urine Bacteria 2+ Hyaline Casts 0-2 Imaging Radiologist's Impressions: Impressions Chest X-Ray 06/07/23 07:41 IMPRESSION: 1. Stable subpleural opacity within the left lower lobe. No new airspace consolidation. 2. Stable cardiomegaly. Assessment and Plan (1) Hypertensive urgency: Status: Acute (2) CKD (chronic kidney disease): Qualifiers: Chronic kidney disease stage: stage 3 (moderate) Chronic kidney disease stage 3 subtype: stage 3b (GFR 30-44) Qualified Code(s): N18.32 - Chronic kidney disease, stage 3b Status: Acute (3) Diabetes mellitus: Qualifiers: Diabetes mellitus type: type 2 Diabetes mellitus technician terminal and repeater insulin use: without technician terminal and repeater use Diabetes mellitus complication status: with other specified complication Qualified Code(s): E11.69 - Type 2 diabetes mellitus with other specified complication Status: Acute Plan 43-year-old female with past medical history significant for essential hypertension, CKD on transplant list who presented complaining of chest pain that was radiating to right arm began earlier this morning. She states his pain was accompanied with nausea and vomiting it was self limiting. Upon transport, EMS found her blood pressure to be 240 for which she received a nitro with improvement in her pressure and her chest pain. Upon arrival to the emergency room she was essentially started on her current medicines and admission was requested 1. Hypertensive urgency Patient states her blood pressures have been poorly controlled over the last several months. Her last follow-up with her PCP was in December and there were no med adjustments made. She states she is chronically falling with Dr. Bertrand (renal) and she is on the transplant list. She has a chronically elevated BNP and 1st troponins have been negative. Case was discussed with Cardiology who recommended admitting patient treating blood pressure and gauging troponins -admit to telemetry -serial troponins -will add 1 in of nitro paste topically q.6 hours (effective pre-hospital) -consult Dr. Duarte (renal) 2. CKD stage III B -consult to Renal as above -follow renals/divalents 3.DMII Patient follows with Endocrine (Dr. John). . . States has not started any therapies at this time. Is following her sugars x1 month and will follow up with him to decide at that time. At this time will treat conservatively -lispro correctional scale -ADA diet -adjust as indicated Full code Riteshx Patient will require at least 2 midnights going forward for adjustment of antihypertensive therapy and to trend troponins to rule out cardiac issues. She will also require cardiology and renal specialty consult. This can not be achieved a lesser acute setting Quality Stroke Does the patient have a stroke diagnosis?: No VTE Prior VTE?: No VTE Risk Level:: Medical - moderate - high VTE Device Contraindication: Treatment Not Indicated VTE Drug Contraindication: N/A - Med Ordered
--- NOTE | 2023-06-07 11:45 | PHA.MEDREC ---
Addendum entered by Gaurav Willams 06/07/23 11:50: [employer] in September 2022 per claim history. Original Note: Pharmacy Consult ? Medication Reconciliation Pharmacy has completed the medication reconciliation. spoke with patient and used claim history to confirm medications. the nifedipine, spironolactone, and torsemide were last picked up at the end of November. No recent claim for Trulicity but she reports that she takes every . She states she has Lokelma at home for prn but has not needed to take it yet.
--- NOTE | 2023-06-07 12:03 | PC.NURSE ---
Feeling better after Nitro paste, no pressure
[2023-06-07 12:57] LABS: Glucose, Whole Blood 263 mg/dL (60-115)
[2023-06-07] MEDS: Nicotine 21 MG PATCH.TD24 TRANSDERMA (13:04)
[2023-06-07] MEDS: Insulin Lispro 100 UNIT/ML 3 ML VIAL SUBCUT ×3 (13:05→21:18)
[2023-06-07] MEDS: Enoxaparin Sodium 30 MG/0.3 ML SYRINGE SUBCUT (13:05)
--- NOTE | 2023-06-07 14:02 | PM.CNCAR ---
History of Present Illness History of Present Illness Date of Service: 06/07/23 Chief complaint: Hypotensive Urgency Narrative: This is a cardiology consultation regarding elevated troponins. Patient has switched her care to [facility] over the last few years. She has a history of uncontrolled hypertension that goes back many years. She also has advanced renal insufficiency. She states that even on a good day high blood pressures no lower than 160/100 mm Hg. This time, it has been as much as 240 mm systolic. She was also having chest pain off and on. Additionally, some swelling in her legs. Subsequently, evaluated in the ER and decided to get admitted. With regard to chest pain, she states she is feeling better after nitro. No further chest pain the time of my encounter. In the past, she has had a full cardiac workup including cardiac catheterization but that did not show any significant CAD. Main issue issue is renal dysfunction as well as uncontrolled hypertension. She also has a CardioMEMS in place. She states that no recent adjustments have been made in her diuretics. Review of Systems Review of Systems: Yes all other systems are reviewed and are negative Constitutional: Constitutional: Reports as per HPI and Reports no additional constitutional complaints Eyes: Eyes: Reports as per HPI and Denies no additional eye complaints ENT: Denies system reviewed and no additional complaints, except as documented and Reports as per HPI Cardiovascular: Cardiovascular: Reports as per HPI, Reports no additional cardiovascular complaints, Denies acrocyanosis, Denies cool extremities, Reports chest pain, Denies leg edema, Denies lightheadedness, Denies palpitations and Denies dyspnea Respiratory: Respiratory: Reports as per HPI, Denies no additional respiratory complaints and Denies dyspnea Gastrointestinal: Gastrointestinal: Reports as per HPI and Denies no additional gastrointestinal complaints Genitourinary: Genitourinary: Reports as per HPI Musculoskeletal: Musculoskeletal: Reports no additional musculoskeletal complaints and Reports as per HPI Integumentary/Breasts: Skin/Breast: Reports system reviewed and no additional complaints, except as docu Neurologic: Reports system reviewed and no additional complaints, except as documented and Reports as per HPI Psychiatric: Psychiatric: Reports no additional psychiatric complaints and Reports as per HPI Endocrine: Endocrine: Reports no additional endocrine complaints, Reports as per HPI and Denies palpitations Hematologic/Lymphatic: Hematologic/Lymphatic: Reports no additional hematologic/lymphatic complaints and Reports as per HPI Allergic/Immunologic: Allergic/Immunologic: Reports no additional allergic/immunologic complaints and Reports as per HPI PMFSH Past Medical History Medical History CKD (chronic kidney disease) Hypertensive retinopathy Macular edema Diabetic retinopathy CHF (congestive heart failure) Malignant hypertension Heart block AV second degree Hypersomnia Cardiomyopathy CKD (chronic kidney disease) stage 2, GFR 60-89 ml/min Nicotine dependence, cigarettes, uncomplicated (~1999) Eclampsia Fatty liver Heart failure, unspecified (~09/2020) History of DVT (deep vein thrombosis) Diabetes mellitus Migraines Sjogren's disease Lupus Rheumatoid arthritis High cholesterol Anxiety PTSD (post-traumatic stress disorder) Bipolar 1 disorder H/O mixed connective tissue disease HTN (hypertension) Family History Family History Father Substance use disorder Mental health disorder Brother Substance use disorder Mental health disorder Brother Substance use disorder Mental health disorder Other Diabetes HTN (hypertension) Surgical History Surgical History History of hysterectomy History of bronchoscopy (~11/2020) History of cholecystectomy (~05/2014) Social History Social History Household Members: Children Household Members Other:: 3 Housing: House Are you a primary managed care analyst to a significant other at home: No Do you presently have visiting nurse or other home services: No Alcohol intake: never Patient Tobacco Use Status: Current everyday Tobacco user Tobacco use type: Cigarette Cigarette Packs Per Day: 0.5 Cigarettes Per Day: 10 Years Smoked: 20 Smoked in Last 30 Days: Yes e-Cigarette/Vaping Use: Never Used Second Hand Smoke Exposure: No Use of substances other than those prescribed or required for medical reasons: Yes Substance Use Type: Marijuana Substance Use Frequency: Daily Advance Directives: Yes Advance Directives on File: Yes Advance Directives Date on File: 06/03/21 service: No Current occupational status: disabled Cognitive needs: No Hearing needs: No Vision needs: No Meds Allergies Allergy/AdvReac Type Severity Reaction Status Date / Time amoxicillin Allergy Unknown rash Verified 05/18/23 13:17 cefaclor [From Ceclor] Allergy Unknown RASH Verified 05/18/23 13:17 cephalexin Allergy Unknown rash Verified 05/18/23 13:17 Cephalosporins Allergy Unknown RASH ALL Verified 05/18/23 13:17 [CEPHALOSPORINS] OVER cephradine [From VELOSEF] Allergy Unknown RASH Verified 05/18/23 13:17 Penicillins [PENICILLINS] Allergy Unknown RASH Verified 05/18/23 13:17 gabapentin [GABAPENTIN] AdvReac Unknown RESTLESS Verified 05/18/23 13:17 LEGS, Body becomes very uncomfortable Active Medications: Current Medications Dextrose (Dextrose 50 % 25 Gm/50 Ml Syringe) 25 gm IVPUSH Q15M PRN; Protocol PRN Reason: per Hypoglycemia Standing Ord. Enoxaparin Sodium (Enoxaparin Sodium 30 Mg/0.3 Ml Syringe) 30 mg SUBCUT Q24H [facility] Last Admin: 06/07/23 13:05 Dose: 30 mg Glucose (Glucose Gel 15 Gm Gel..Gram.) 15 gm PO Q15M PRN; Protocol PRN Reason: per Hypoglycemia Standing Ord. Insulin Human Lispro (Insulin Lispro 100 Unit/Ml 3 Ml Vial) 0 unit SUBCUT QIDACHS [facility]; Protocol Last Admin: 06/07/23 13:05 Dose: 6 unit Nicotine (Nicotine 21 Mg Patch.Td24) 21 mg TRANSDERMA DAILY [facility] Last Admin: 06/07/23 13:04 Dose: 21 mg Nitroglycerin (Nitroglycerin 2 % Oint 1 Gm Packet) 1 inch TRANSDERMA Q6H [facility] Last Admin: 06/07/23 10:58 Dose: 1 inch Ondansetron HCl (Ondansetron Hcl 4 Mg/2 Ml Vial) 4 mg IVPUSH Q4H PRN PRN Reason: nausea Sodium Chloride (0.9 % Sodium Chloride Flush 3 Ml Syringe) 3 ml IVFLUSH QSHIFT [facility] Home Medications Medication Instructions Recorded Confirmed Last Taken Type carvedilol 25 mg tablet 50 mg PO BID 03/20/22 06/07/23 09/07/22 History nifedipine 90 mg tablet,extended 1 tab PO BID 04/22/22 06/07/23 09/07/22 History release 24 hr dulaglutide 1.5 mg/0.5 mL 1.5 mg subcut TH 05/28/22 06/07/23 10/09/22 History subcutaneous pen injector (Trulicity) torsemide 20 mg tablet 2 tab PO BID PRN Edema 05/28/22 06/07/23 09/07/22 History sacubitril 97 mg-valsartan 103 mg 1 tab PO BID 08/20/22 06/07/23 09/07/22 History tablet (Entresto) spironolactone 100 mg tablet 100 mg PO DAILY 05/18/23 06/07/23 Unknown History omeprazole 20 mg capsule,delayed 20 mg PO QAM PRN heartburn 06/07/23 06/07/23 Unknown History release Physical Exam Vital Signs: Vital Signs: Last Vital Signs Temp 98.1 F 06/07/23 07:28 Pulse 73 06/07/23 12:51 Resp 12 06/07/23 12:51 BP 137/81 06/07/23 12:51 Pulse Ox 99 06/07/23 12:51 O2 Del Method Room Air 06/07/23 12:51 BMI result Body Mass Index 33.9 Const: General: comfortable and no acute distress Orientation/consciousness: patient oriented x3 HEENT: Other: Unremarkable Head: Yes normal to inspection Neck: Neck: Yes normal visual inspection Chest: Chest palpation & inspection: normal inspection of the chest Resp: Auscultation: diminished lung sounds Cardio: Palpation: normal PMI Heart sounds: S1 normal heart sound present, S2 normal heart sound present, no gallops, no murmurs and no rubs GI: Palpation (GI): Soft to palpation Back/Spine/Pelvis: Other: unremarkable Skin: General skin exam: no rashes or lesions noted Neuro: General: patient oriented x3 Extrem: Other: Mild leg swelling General: Yes normal to inspection Psych: Mental Status: mental status grossly normal Objective Labs and Meds 06/07/23 08:18 06/07/23 08:18 Lab results: Laboratory Results - last 24 hr 06/07/23 06/07/23 06/07/23 07:55 08:18 09:53 WBC 8.2 RBC 2.90 L Hgb 9.2 L Hct 27.2 L MCV 93.8 MCH 31.7 MCHC 33.8 RDW 15.4 Plt Count 335 MPV 9.4 Immature Gran % (Auto) 0.4 Neut % (Auto) 80.1 H Lymph % (Auto) 10.5 L [place] % (Auto) 7.0 Eos % (Auto) 1.6 Baso % (Auto) 0.4 Lymph # (Auto) 0.9 L [place] # (Auto) 0.6 Eos # (Auto) 0.1 Baso # (Auto) 0.0 Abs Immat Gran (auto) 0.03 Absolute Neuts (auto) 6.6 Absolute Nucleated RBC 0.000 Nucleated RBC % (auto) 0.0 PT 12.7 INR 1.0 Sodium 134 L Potassium 4.6 Chloride 99 Carbon Dioxide 26 Anion Gap 14 BUN 60 H Creatinine 4.19 H* Estim Creat Clear Calc 21.3 Estimated GFR 12 POC Glucose Random Glucose 273 H Calcium 6.3 L D Total Bilirubin 0.4 AST 12 ALT 11 Alkaline Phosphatase 118 H Troponin I High Sens 190.0 H* D 437.7 H* D B-Natriuretic Peptide 2535 H Total Protein 5.3 L Albumin 3.2 L Urine Color Yellow Urine Appearance Cloudy Urine pH 7.5 Ur Specific [place] 1.010 Urine Protein 300 (3+) H Urine Glucose (UA) 500 H Urine Ketones Negative Urine Blood Trace H Urine Nitrite Negative Ur Leukocyte Esterase Negative Urine RBC 0-2 Urine WBC 0-5 Ur Squamous Epith Cells 6-10 Urine Bacteria 2+ Hyaline Casts 0-2 06/07/23 12:53 WBC RBC Hgb Hct MCV MCH MCHC RDW Plt Count MPV Immature Gran % (Auto) Neut % (Auto) Lymph % (Auto) [place] % (Auto) Eos % (Auto) Baso % (Auto) Lymph # (Auto) [place] # (Auto) Eos # (Auto) Baso # (Auto) Abs Immat Gran (auto) Absolute Neuts (auto) Absolute Nucleated RBC Nucleated RBC % (auto) PT INR Sodium Potassium Chloride Carbon Dioxide Anion Gap BUN Creatinine Estim Creat Clear Calc Estimated GFR POC Glucose 263 H Random Glucose Calcium Total Bilirubin AST ALT Alkaline Phosphatase Troponin I High Sens B-Natriuretic Peptide Total Protein Albumin Urine Color Urine Appearance Urine pH Ur Specific [place] Urine Protein Urine Glucose (UA) Urine Ketones Urine Blood Urine Nitrite Ur Leukocyte Esterase Urine RBC Urine WBC Ur Squamous Epith Cells Urine Bacteria Hyaline Casts ECG Interpretation: EKG with sinus rhythm at 71/Min; left ventricle hypertrophy with strain pattern. Grossly unchanged. Imaging Radiologist's impression: Impressions Chest X-Ray 06/07/23 07:41 IMPRESSION: 1. Stable subpleural opacity within the left lower lobe. No new airspace consolidation. 2. Stable cardiomegaly. Assessment and Plan (1) Malignant hypertension: Status: Acute (2) NSTEMI (non-ST elevated myocardial infarction): Status: Acute (3) CKD (chronic kidney disease): Qualifiers: Chronic kidney disease stage: stage 3 (moderate) Chronic kidney disease stage 3 subtype: stage 3b (GFR 30-44) Qualified Code(s): N18.32 - Chronic kidney disease, stage 3b Status: Acute Plan Per ER documentation, initial EMS blood pressure was as much as 240 mm systolic. Seems to be improving. Last recorded blood pressure is 137/81 mm Hg. EKG shows chronic LVH findings. No acute ischemia. Creatinine is 4.1. Last level from April was 3.8. Cardiac BNP is 2535. Last month, it was 3242. Overall, variable levels in the last few years. Troponin levels are 190 and 437. Cardiac catheterization 2021-mild disease in the OM1 but otherwise normal coronary arteries. Echocardiogram in 2022-LVEF 40-45% with advanced diastolic dysfunction. Mild mitral regurgitation. Severely dilated left atrium. Mild pulmonary hypertension. Overall, uncontrolled hypertension causing chest pains/demand related NSTEMI the setting of advanced renal disease. Her current meds include combination of carvedilol, nifedipine, Entresto, spironolactone at essentially maximum dosages. As the creatinine is even higher than before we need to check with Nephrology about continuing some of these. Otherwise, agree with addition of nitroglycerin paste as that seems to help. IV heparin drip can be kept for about 48 hours although highly doubt an acute plaque rupture. More so from uncontrolled hypertension. Aspirin 325 if not given. Statins. We will repeat an echocardiogram. Can also check CardioMEMS tomorrow. BP meds to be discussed through renal team. Discussed with Dr. Suarez over phone. Procedures Date of Service Date of Service: 06/07/23
[2023-06-07 14:41] LABS: Hematocrit 28.9 % (37.0-47.0); Hemoglobin 9.8 g/dl (12.0-16.0); Mean Corpuscular HGB Conc 33.9 g/dl (31.0-35.0); Mean Corpuscular Hemoglobin 31.4 pg (27.0-33.0); Mean Corpuscular Volume 92.6 fL (80.0-98.0); Mean Platelet Volume 9.3 fL (9.4-12.3); Platelet Count 413 X10*3/uL (160-400); Red Blood Count 3.12 X10*6/uL (4.20-5.50); Red Cell Distribution Width 15.4 % (11.0-16.0); White Blood Count 9.4 X10*3/uL (4.8-10.8)
[2023-06-07 14:54] LABS: Prothrombin Time 12.4 SEC (11.1-13.3)
[2023-06-07] MEDS: Heparin Sodium,Porcine/1/2NS 25,000 UNIT/250 ML IV.SOLN 10 UNIT IVCONT (15:45)
[2023-06-07] MEDS: Aspirin Enteric Coated 81 MG TABLET.DR PO (15:56)
[2023-06-07 17:54] LABS: Glucose, Whole Blood 271 mg/dL (60-115)
[2023-06-07] MEDS: Morphine Sulfate 4 MG/ML CARTRIDGE IVPUSH ×2 (18:31→23:29)
--- NOTE | 2023-06-07 19:57 | PC.NURSE ---
This grant writer assumed care of this Pt at 1900. PT A&Ox3, reports 2/10 chest pressure to center of chest. Reports effectiveness to pain med given by previous nurse. Pt worried about elevated trop seen on portal. Pt reassured on treatment. Pt on heparin drip running per JUN. Pt able to ambulate to bedside commode.
[2023-06-07 21:06] LABS: Glucose, Whole Blood 239 mg/dL (60-115)
[2023-06-07] MEDS: hydrALAZINE HCl 50 MG TABLET PO (21:18)
[2023-06-07] MEDS: Atorvastatin Calcium 80 MG TABLET PO (21:19)
[2023-06-07] MEDS: Sacubitril/Valsartan 97/103 1 TAB TABLET PO (21:33)
[2023-06-07] MEDS: NIFEdipine ER 90 MG TAB.ER.24 PO (21:33)
[2023-06-07 21:57] LABS: PTT Heparin Drip 33.5 SEC (53-77.9)
[2023-06-07] MEDS: Heparin Sodium,Porcine 5,000 UNIT/ML VIAL 7900 UNIT IVPUSH (22:09)
[2023-06-07] MEDS: Omeprazole 20 MG CAPSULE.DR PO (22:15)
[2023-06-07] MEDS: Torsemide 20 MG TABLET 40 MG PO (23:19)
[2023-06-07] MEDS: 0.9 % Sodium Chloride Flush 3 ML SYRINGE IVFLUSH (23:26)
[2023-06-08] VITALS (9 sets, daily range): BP systolic 145–177; BP diastolic 84–100; PULSE 64–79; RESP 12–20; TEMP 36.4–36.9; O2SAT 94–99; BMI 33.9
[2023-06-08 04:39] LABS: PTT Heparin Drip 61.1 SEC (53-77.9)
[2023-06-08] MEDS: Morphine Sulfate 4 MG/ML CARTRIDGE IVPUSH ×4 (05:17→23:36)
[2023-06-08] MEDS: Nitroglycerin 2 % Oint 1 GM Packet 1 INCH TRANSDERMA ×4 (05:18→23:35)
[2023-06-08 05:28] LABS: Hematocrit 28.3 % (37.0-47.0); Hemoglobin 9.8 g/dl (12.0-16.0); Mean Corpuscular HGB Conc 34.6 g/dl (31.0-35.0); Mean Corpuscular Hemoglobin 31.9 pg (27.0-33.0); Mean Corpuscular Volume 92.2 fL (80.0-98.0); Mean Platelet Volume 9.6 fL (9.4-12.3); Platelet Count 390 X10*3/uL (160-400); Red Blood Count 3.07 X10*6/uL (4.20-5.50); Red Cell Distribution Width 15.6 % (11.0-16.0); White Blood Count 10.8 X10*3/uL (4.8-10.8)
--- NOTE | 2023-06-08 06:06 | PC.NURSE ---
Pt states she was able to sleep. Upon med administration Pt had one episode of projectile vomiting, Pt states I get really nauseas with morphine .
--- NOTE | 2023-06-08 07:00 | CA_ITS ---
Transthoracic Echocardiogram Patient (Last, First, Middle): Angela Streeter L Gender: Female Date of : 1980 Age: 43 Procedure Date: 06/08/2023 Procedure Type: Transthoracic Echocardiogram Location: ER Height: 167.64 cm Weight: 97.98 kg BSA: 2.07 m2 Heart Rate: bpm BP: 156 / 91 mmHg Lease Operator: Referring MD: Nathaniel Garcia MD Symptoms: NSTEMI Study Quality: Good ECG Rhythm: Sinus Conclusions: - Mildly increased left ventricular cavity size. There is severely increased left ventricular wall thickness. The left ventricular systolic function is normal. The visually estimated ejection fraction is between 55-60%. - Elevated filling pressures. - Mildly increased right ventricular cavity size. There is low normal right ventricular systolic function. - The left atrium is severely dilated. - There is mild dilatation of the ascending aorta measuring 3.60 cm. Findings Left Ventricle Mildly increased left ventricular cavity size. There is severely increased left ventricular wall thickness. The left ventricular systolic function is normal. The visually estimated ejection fraction is between 55-60%. There is no evidence of regional wall motion abnormalities. Abnormal diastolic function is noted. Spectral Doppler is indicative of a pseudonormal filling pattern. Elevated filling pressures. Right Ventricle Mildly increased right ventricular cavity size. There is low normal right ventricular systolic function. Atria The left atrium is severely dilated. Aortic Valve Normal aortic valve structure and function. There is no aortic valve stenosis. There is no aortic valve regurgitation. Mitral Valve The mitral valve appears normal. There is trace mitral valve regurgitation. There is no mitral valve stenosis. Pulmonic Valve The pulmonic valve is normal. There is mild pulmonic valve regurgitation. Tricuspid Valve Normal tricuspid valve structure. There is mild tricuspid valve regurgitation. Normal right atrial pressure. There is no evidence of pulmonary hypertension. Great Vessels There is mild dilatation of the ascending aorta measuring 3.60 cm. The visualized portions of the pulmonary artery and branches are normal. Venous The inferior vena cava is normal in size and collapses greater than 50% with inspiration. Pericardium/Pleural There is no evidence of pericardial effusion. Prior Study Comparison Changes noted compared to prior study dated: 04/23/2022. Severe LVH. LVEF 55-60%. Measurements 2D Linear Measurements IVSd: 1.66 0.6-0.9/0.6-1.0 cm LVIDd: 5.32 3.9-5.3/4.2-5.9 cm LVIDd Index: 2.57 2.4-3.2/2.2-3.1 cm/m2 LVIDs: 3.45 2.0-3.6 cm LVPWd: 1.63 0.7-1.1 cm Ao Root: 3.20 2.1-3.5 cm LA Diam: 5.80 2.7-3.8/3.0-4.0 cm LAIDs Index: 2.80 1.5-2.3 cm/m2 LV Mass: 507.22 67-162/88-224 g LV Mass Index: 245.03 43-95/49-115 g/m2 LVOT Diam: 2.20 3.0+(-)1.3 cm 2D Systolic Function EF 4C: 54.80 >55% EF 2C: 63.10 >55% EF BiP: 58.60 >55% Mitral Valve MV Pk E: 1.00 MV PK A: 0.79 MV Decel Time: 231.00 E/A: 1.30 E'Lateral: 6.09 E'Medial: 4.13 E/E' Med: 24.20 E/E' Lat: 16.40 PHT: 68.00 MVA PHT: 3.24 Decel [place]: 4.34 Aortic Valve AoV Pk Sebas: 1.94 AoV Mn Sebas: 1.28 AoV VTI: 0.38 AoV Pk Grad: 15.00 Aov Mn Grad: 8.00 SATISH Cont.VTI: 2.12 LVOT LVOT Pk Sebas: 1.17 LVOT Mn Sebas: 0.79 LVOT VTI: 0.21 LVOT Pk Grad: 5.00 LVOT Mn Grad: 3.00 LVOT Diam: 2.20 LVOT Area: 3.80 Diastolic Function MV Pk E: 1.00 MV Pk A: 0.79 E/A: 1.30 E'Medial: 4.13 E/E' Med: 24.20 E' Laterial: 6.09 E/E' Lat: 16.40 Right Ventricle TAPSE (mm): 23.00 TVS' Sebas: 12.00 Tricuspid Valve TR Pk Sebas: 2.33 TR Pk Grad: 22.00 RA Press: 3.00 RVSP: 25.00 Great Vessels Aorta Ao Root-2D: 3.20 2.0-3.7 cm Ao Asc: 3.60 2.1-3.4 cm Pulmonary Valve PV Pk Sebas: 1.23 Peak PV Grad: 6.00 Updated in Other Vendor System with Status of Final Mike Mccray MD electronically signed on 06/08/2023 12:37:07 PM with status of Final
[2023-06-08 07:49] LABS: Glucose, Whole Blood 220 mg/dL (60-115)
--- NOTE | 2023-06-08 08:18 | P.EN_ITS ---
Event Note Date of Service: 06/08/23 Event Note: Chart reviewed Pt known to my associate 1. MAYURI ( Creat increases above 4- in the setting of ACS/ Entresto use ) 2. CKD 4 at baseline 3. Hypertensive emergency - Now BP better In the setting of Renal Parenchymal HTN and STEPAN 4. Anemia of Ch disease 5. STEPAN 6. Elevated Troponin Urine lytes/ Cr ordered Lower dose of Entresto to Continue otyer BP meds Agree with Hydralazine - Increase as needed to max 100 TID Cardiology f/u Will review office records K is OK ill continueb Aldactone No indication for CORDUROY CUTTING SUPERVISOR Thx Dr. Duarte Time Spent With Patient Time: Total time managing care of this patient today ____ minutes.
[2023-06-08] MEDS: Insulin Lispro 100 UNIT/ML 3 ML VIAL SUBCUT ×4 (08:29→22:00)
[2023-06-08] MEDS: carvediloL 25 MG TABLET 50 MG PO ×2 (08:31→21:59)
[2023-06-08] MEDS: Aspirin Enteric Coated 81 MG TABLET.DR PO (08:31)
[2023-06-08] MEDS: Spironolactone 25 MG TABLET 100 MG PO (08:31)
[2023-06-08] MEDS: hydrALAZINE HCl 50 MG TABLET PO (08:31)
[2023-06-08] MEDS: Nicotine 21 MG PATCH.TD24 TRANSDERMA (08:32)
--- NOTE | 2023-06-08 08:39 | PC.NURSE ---
Bedside Cardiac Echo being done at this time.
[2023-06-08 11:03] LABS: PTT Heparin Drip 39.5 SEC (53-77.9)
--- NOTE | 2023-06-08 11:31 | PM.PNCARD ---
Subjective Subjective Date of Service: 06/08/23 Interval history: Seen examined at bedside. Feeling good. He is on heparin drip currently. Labs and imaging reviewed. Physical Exam Vital Signs: Last Vital Signs Temp 97.7 F 06/08/23 10:38 Pulse 64 06/08/23 10:38 Resp 12 06/08/23 10:38 BP 145/84 H 06/08/23 10:38 Pulse Ox 99 06/08/23 10:38 O2 Del Method Room Air 06/08/23 10:38 BMI result Body Mass Index 33.9 GENERAL APPEARANCE: in no acute distress, pleasant. NECK: no carotid bruit, + jugular venous distention. SKIN: no suspicious lesions, warm and dry. HEART: no murmurs, regular rate and rhythm. LUNGS: clear to auscultation bilaterally. ABDOMEN: soft, nontender. EXTREMITIES: Mild edema. PERIPHERAL PULSES: equal. NEUROLOGIC: No gross deficits, AAO X 3 Objective Labs and Meds 06/08/23 05:20 06/07/23 08:18 Lab results: Laboratory Results - last 24 hr 06/07/23 06/07/23 06/07/23 12:53 14:34 17:34 WBC 9.4 RBC 3.12 L Hgb 9.8 L Hct 28.9 L MCV 92.6 MCH 31.4 MCHC 33.9 RDW 15.4 Plt Count 413 H MPV 9.3 L Absolute Nucleated RBC 0.000 Nucleated RBC % (auto) 0.0 PT 12.4 INR 1.0 aPTT Heparin Protocol 30.0 L Sodium Potassium Chloride Carbon Dioxide Anion Gap BUN Creatinine Estim Creat Clear Calc Estimated GFR POC Glucose 263 H 271 H Fasting Glucose Calcium Total Bilirubin AST ALT Alkaline Phosphatase Troponin I High Sens Total Protein Albumin 06/07/23 06/07/23 06/07/23 17:50 21:02 21:39 WBC RBC Hgb Hct MCV MCH MCHC RDW Plt Count MPV Absolute Nucleated RBC Nucleated RBC % (auto) PT INR aPTT Heparin Protocol 33.5 L Sodium Potassium Chloride Carbon Dioxide Anion Gap BUN Creatinine Estim Creat Clear Calc Estimated GFR POC Glucose 239 H Fasting Glucose Calcium Total Bilirubin AST ALT Alkaline Phosphatase Troponin I High Sens 5998.5 H* D Total Protein Albumin 06/08/23 06/08/23 06/08/23 04:14 05:20 07:45 WBC 10.8 RBC 3.07 L Hgb 9.8 L Hct 28.3 L MCV 92.2 MCH 31.9 MCHC 34.6 RDW 15.6 Plt Count 390 MPV 9.6 Absolute Nucleated RBC 0.000 Nucleated RBC % (auto) 0.0 PT INR aPTT Heparin Protocol 61.1 D Sodium Cancelled Potassium Cancelled Chloride Cancelled Carbon Dioxide Cancelled Anion Gap Cancelled BUN Cancelled Creatinine Cancelled Estim Creat Clear Calc Cancelled Estimated GFR Cancelled POC Glucose 220 H Fasting Glucose Cancelled Calcium Cancelled Total Bilirubin Cancelled AST Cancelled ALT Cancelled Alkaline Phosphatase Cancelled Troponin I High Sens Total Protein Cancelled Albumin Cancelled 06/08/23 10:48 WBC RBC Hgb Hct MCV MCH MCHC RDW Plt Count MPV Absolute Nucleated RBC Nucleated RBC % (auto) PT INR aPTT Heparin Protocol 39.5 L D Sodium Potassium Chloride Carbon Dioxide Anion Gap BUN Creatinine Estim Creat Clear Calc Estimated GFR POC Glucose Fasting Glucose Calcium Total Bilirubin AST ALT Alkaline Phosphatase Troponin I High Sens 2035.6 H* D Total Protein Albumin Progress Note: A&P Assessment and plan (1) NSTEMI (non-ST elevated myocardial infarction): Status: Acute (2) Hyperglycemia: Status: Acute Plan Pleasant 43-year-old female with resistant hypertension who presented with significantly elevated blood pressures and chest pain. She ruled in for NSTEMI. EKGs showing left ventricular hypertrophy with strain pattern. Blood pressure is improving with oral medications currently. Her troponins peaked at 5998 and are trending down at 2034 at this point. Please do not check further troponins. Continue heparin drip for 48 hours. Continue baby aspirin. She appears to be hypervolemic at this point and would benefit from diuretics adjustment. Nephrology is on board and we will get advice from them too. Given advanced CKD I would be reluctant to proceed with any invasive angiographic procedure unless we really have to. We will check an echocardiogram as a starting point to assess any wall motion abnormalities. If she truly had any wall motion then we will consider transfer to [facility] as she is known to [facility]. Thank you for allowing me to participate in the care of your patient. Please feel free to contact me if you have any questions. Time Spent With Patient Time: Total time managing care of this patient today ____ minutes. Progress Note: Quality Stroke Does the patient have a stroke diagnosis?: No Procedures Date of Service Date of Service: 06/08/23
[2023-06-08] MEDS: NIFEdipine ER 90 MG TAB.ER.24 PO ×2 (11:45→21:59)
[2023-06-08] MEDS: Heparin Sodium,Porcine 5,000 UNIT/ML VIAL 3900 UNIT IVPUSH (12:00)
--- NOTE | 2023-06-08 12:21 | MHC.CM.PN ---
Attempted to meet with patient in regards to discharge planning. Nursing care currently being provided. Will attempt to meet again Continue to monitor for d/c needs.
[2023-06-08 13:20] LABS: Glucose, Whole Blood 274 mg/dL (60-115)
[2023-06-08] MEDS: Heparin Sodium,Porcine/1/2NS 25,000 UNIT/250 ML IV.SOLN 15.9 UNIT IVCONT (13:20)
--- NOTE | 2023-06-08 14:24 | PC.NURSE ---
Healthcare Proxy form completed per patient request. RN and CM witnessed. Copy submitted for medical record and patient given original/hard copy.
--- NOTE | 2023-06-08 15:11 | P.PNIM_ITS ---
Subjective Subjective Date of Service: 06/08/23 Interval History: BP is improving with therapies however not at goal. No further chest pain per patient. Troponins have peaked Review of Systems Admits to chest pain on admission that has resolved Denies shortness of breath Denies nausea vomiting diarrhea Denies fever chills Physical Exam 2 Vital Signs: Vital Signs: Last Vital Signs Temp 97.6 F 06/08/23 14:19 Pulse 70 06/08/23 14:19 Resp 13 06/08/23 14:19 BP 151/97 H 06/08/23 14:19 Pulse Ox 98 06/08/23 14:19 O2 Del Method Room Air 06/08/23 14:19 BMI result Body Mass Index 33.9 Const: Other: Awake alert no acute distress Resp: Other: Clear to auscultation bilaterally no rales rhonchi or wheezes Cardio: Other: No S4; positive S1-S2; no S3 murmurs rubs or gallops GI: Other: Soft nontender nondistended normoactive bowel sounds Extrem: Other: Pitting edema bilaterally Objective Data Active Medications Albuterol Sulfate (Albuterol Sulfate 90 Mcg 8 Gm Inhaler) 1 puff INHALE QID PRN PRN Reason: Wheezing Aspirin (Aspirin Enteric Coated 81 Mg Tablet.) 81 mg PO DAILY [facility] Last Admin: 06/08/23 08:31 Dose: 81 mg Documented By: YOCASTA Atorvastatin Calcium (Atorvastatin Calcium 80 Mg Tablet) 80 mg PO BEDTIME [facility] Last Admin: 06/07/23 21:19 Dose: 80 mg Documented By: TAMIA Carvedilol (Carvedilol 25 Mg Tablet) 50 mg PO BID [facility]; Protocol Last Admin: 06/08/23 08:31 Dose: 50 mg Documented By: YOCASTA Dextrose (Dextrose 50 % 25 Gm/50 Ml Syringe) 25 gm IVPUSH Q15M PRN; Protocol PRN Reason: per Hypoglycemia Standing Ord. Glucose (Glucose Gel 15 Gm Gel..Gram.) 15 gm PO Q15M PRN; Protocol PRN Reason: per Hypoglycemia Standing Ord. Heparin Sodium (Porcine) (Heparin Sodium,Porcine 5,000 Unit/Ml Vial) 3,900 unit 40 unit/kg (3900 unit) IVPUSH PROTOCOL BOLUS PRN; Protocol PRN Reason: 40 unit/kg - Heparin Protocol Last Admin: 06/08/23 12:00 Dose: 3,900 unit Documented By: YOCASTA Heparin Sodium (Porcine) (Heparin Sodium,Porcine 5,000 Unit/Ml Vial) 7,900 unit 80 unit/kg (7900 unit) IVPUSH PROTOCOL BOLUS PRN; Protocol PRN Reason: 80 unit/kg - Heparin Protocol Last Admin: 06/07/23 22:09 Dose: 7,900 unit Documented By: TAMIA Hydralazine HCl (Hydralazine Hcl 50 Mg Tablet) 50 mg PO TID [facility]; Protocol Last Admin: 06/08/23 08:31 Dose: 50 mg Documented By: YOCASTA Heparin Sodium/Sodium Chloride (Heparin Sodium,Porcine/1/2ns) 25,000 unit in 250 mls @ 0 mls/hr IVCONT .Q0M [facility]; Protocol Last Admin: 06/08/23 13:20 Dose: 16.17 units/kg/hr, 15.9 mls/hr Documented By: YOCASTA Co-signed By: LOIS Insulin Human Lispro (Insulin Lispro 100 Unit/Ml 3 Ml Vial) 0 unit SUBCUT QIDACHS [facility]; Protocol Last Admin: 06/08/23 13:21 Dose: 6 unit Documented By: YOCASTA Morphine Sulfate (Morphine Sulfate 4 Mg/Ml Cartridge) 4 mg IVPUSH Q3H PRN; Protocol PRN Reason: Pain, Severe (Pain Scale 7-10) Last Admin: 06/08/23 11:59 Dose: 4 mg Documented By: YOCASTA Nicotine (Nicotine 21 Mg Patch.Td24) 21 mg TRANSDERMA DAILY [facility] Last Admin: 06/08/23 08:32 Dose: 21 mg Documented By: YOCASTA Nifedipine (Nifedipine Er 90 Mg Tab.Er.24) 90 mg PO BID [facility]; Protocol Last Admin: 06/08/23 11:45 Dose: 90 mg Documented By: YOCASTA Nitroglycerin (Nitroglycerin 2 % Oint 1 Gm Packet) 1 inch TRANSDERMA Q6H [facility] Last Admin: 06/08/23 11:46 Dose: 1 inch Documented By: YOCASTA Omeprazole (Omeprazole 20 Mg Capsule.Dr) 20 mg PO DAILY PRN PRN Reason: heartburn Last Admin: 06/07/23 22:15 Dose: 20 mg Documented By: TAMIA Ondansetron HCl (Ondansetron Hcl 4 Mg/2 Ml Vial) 4 mg IVPUSH Q4H PRN PRN Reason: nausea Sacubitril/Valsartan (Sacubitril/Valsartan 1 Tab Tablet) 1 tab PO BID [facility]; Protocol Sodium Chloride (0.9 % Sodium Chloride Flush 3 Ml Syringe) 3 ml IVFLUSH QSHIFT [facility] Last Admin: 06/08/23 08:29 Dose: Not Given Documented By: YOCASTA Non-Admin Reason: IV Running Spironolactone (Spironolactone 25 Mg Tablet) 100 mg PO DAILY [facility]; Protocol Last Admin: 06/08/23 08:31 Dose: 100 mg Documented By: YOCASTA Torsemide (Torsemide 20 Mg Tablet) 40 mg PO BID PRN; Protocol PRN Reason: Edema Last Admin: 06/07/23 23:19 Dose: 40 mg Documented By: ATMIA Labs 06/08/23 05:20 06/07/23 08:18 Labs: Laboratory Results - last 24 hr 06/07/23 06/07/23 06/07/23 17:34 17:50 21:02 MCV MCH MCHC RDW Plt Count MPV Absolute Nucleated RBC Nucleated RBC % (auto) aPTT Heparin Protocol Anion Gap Estim Creat Clear Calc Estimated GFR POC Glucose 271 H 239 H Fasting Glucose Calcium Total Bilirubin AST ALT Alkaline Phosphatase Troponin I High Sens 5998.5 H* D Total Protein Albumin 06/07/23 06/08/23 06/08/23 21:39 04:14 05:20 MCV 92.2 MCH 31.9 MCHC 34.6 RDW 15.6 Plt Count 390 MPV 9.6 Absolute Nucleated RBC 0.000 Nucleated RBC % (auto) 0.0 aPTT Heparin Protocol 33.5 L 61.1 D Anion Gap Cancelled Estim Creat Clear Calc Cancelled Estimated GFR Cancelled POC Glucose Fasting Glucose Cancelled Calcium Cancelled Total Bilirubin Cancelled AST Cancelled ALT Cancelled Alkaline Phosphatase Cancelled Troponin I High Sens Total Protein Cancelled Albumin Cancelled 06/08/23 06/08/23 06/08/23 07:45 10:48 13:13 MCV MCH MCHC RDW Plt Count MPV Absolute Nucleated RBC Nucleated RBC % (auto) aPTT Heparin Protocol 39.5 L D Anion Gap Estim Creat Clear Calc Estimated GFR POC Glucose 220 H 274 H Fasting Glucose Calcium Total Bilirubin AST ALT Alkaline Phosphatase Troponin I High Sens 2035.6 H* D Total Protein Albumin Assessment and Plan (1) Hypertensive urgency: Status: Acute Plan 43-year-old female with past medical history significant for essential hypertension, CKD on transplant list who presented complaining of chest pain that was radiating to right arm began earlier this morning. She states his pain was accompanied with nausea and vomiting it was self limiting. Upon transport, EMS found her blood pressure to be 240 for which she received a nitro with improvement in her pressure and her chest pain. Upon arrival to the emergency room she was essentially started on her current medicines and admission was requested 1. Hypertensive urgency Pressures have been better control however not at goal. Seen by renal and recommendations noted. No further chest pain and troponins have peaked -increase hydralazine to 100 mg t.i.d. -will switch nitro paste to patch -is following up with Dr. Duarte who as outpatient 2. CKD stage III B -consult to Renal as above . . . Dr. Duarte's to follow -follow renals/divalents 3.DMII Patient follows with Endocrine (Dr. John). . . States has not started any therapies at this time. Is following her sugars x1 month and will follow up with him to decide at that time. At this time will treat conservatively -lispro correctional scale -ADA diet -adjust as indicated Full code Lovenox Patient will require ongoing hospitalization for heparin drip pending specialists re-evaluation; also requires specialist consultation for adequate blood pressure control Quality Stroke Does the patient have a stroke diagnosis?: No VTE Prior VTE?: No VTE Risk Level:: Medical - moderate - high VTE Device Contraindication: Treatment Not Indicated VTE Drug Contraindication: N/A - Med Ordered
--- NOTE | 2023-06-08 15:27 | PC.NURSE ---
axox4 resting in stretcher nad. pt denies pain. asked for lights off/curtain close states would like to take a nap. call padron within reach. vss.
[2023-06-08 15:32] LABS: Creatinine Urine 26.56 mg/dL
[2023-06-08 15:34] LABS: Total Protein Urine Random 70 mg/dL (<12)
[2023-06-08 18:16] LABS: PTT Heparin Drip 60.4 SEC (53-77.9)
[2023-06-08 18:52] LABS: Glucose, Whole Blood 200 mg/dL (60-115)
[2023-06-08] MEDS: ondansetron HCL 4 MG/2 ML VIAL IVPUSH ×2 (19:04→23:36)
--- NOTE | 2023-06-08 19:06 | PC.NURSE ---
pt reports 10/13 cp. pt was told by hospitalist switch nitro to patch from paste; consulted with dr. casas to continue with paste. pt requests prn morphine as well for pain; iv zofran prn given as pt states induced vomiting last dose. pt medicated per jun. . heparin not titrated per protocol. ptt heparin drip ordered for 0019 per protocol. nsr on monitor with st segment wnl at this time. call padron within reach.
[2023-06-08 21:28] LABS: Glucose, Whole Blood 262 mg/dL (60-115)
[2023-06-08] MEDS: hydrALAZINE HCl 50 MG TABLET 100 MG PO (21:59)
[2023-06-08] MEDS: Atorvastatin Calcium 80 MG TABLET PO (22:00)
[2023-06-08] MEDS: 0.9 % Sodium Chloride Flush 3 ML SYRINGE IVFLUSH (22:00)
[2023-06-09] VITALS (8 sets, daily range): BP systolic 125–186; BP diastolic 70–110; PULSE 66–80; RESP 16–20; TEMP 36.1–36.8; O2SAT 96–99
[2023-06-09 00:57] LABS: PTT Heparin Drip 47.1 SEC (53-77.9)
[2023-06-09] MEDS: Heparin Sodium,Porcine 5,000 UNIT/ML VIAL 3900 UNIT IVPUSH (01:08)
[2023-06-09] MEDS: Nitroglycerin 2 % Oint 1 GM Packet 1 INCH TRANSDERMA ×4 (05:00→23:00)
[2023-06-09] MEDS: Morphine Sulfate 4 MG/ML CARTRIDGE IVPUSH ×5 (05:02→23:24)
[2023-06-09] MEDS: Heparin Sodium,Porcine/1/2NS 25,000 UNIT/250 ML IV.SOLN 17.86 UNIT IVCONT (05:02)
[2023-06-09] MEDS: ondansetron HCL 4 MG/2 ML VIAL IVPUSH ×5 (05:02→23:18)
[2023-06-09 07:57] LABS: Glucose, Whole Blood 204 mg/dL (60-115)
[2023-06-09 08:00] LABS: PTT Heparin Drip 62.6 SEC (53-77.9)
[2023-06-09 08:13] LABS: Alanine Aminotransferase 9 U/L (0-31); Albumin Level 3.5 g/dL (3.5-5.0); Alkaline Phosphatase 116 U/L (39-117); Anion Gap 15 (12-20); Aspartate Amino Transferase 13 U/L (5-31); Bilirubin Total 0.7 mg/dL (0.0-1.0); Blood Urea Nitrogen 54 mg/dL (9-16); Calcium 7.6 mg/dL (8.4-10.2); Carbon Dioxide 24 mmol/L (22-29); Chloride 100 mmol/L (96-108); Creatinine Clr Calc Pharmacy 20.7; Estimated Glomerular Filt Rate 11; Glucose Fasting 217 mg/dL (60-99); Potassium 4.9 mmol/L (3.3-5.1); Sodium 134 mmol/L (135-145)
--- NOTE | 2023-06-09 08:32 | CONS_ITS ---
DATE OF SERVICE: 06/08/2023 REASON FOR CONSULTATION: Consult requested by the Medical Team to evaluate and help in management of the patient with renal insufficiency and hypertensive emergency. HISTORY OF PRESENT ILLNESS: The patient is a 43-year-old female with a longstanding history of progressive chronic kidney disease, followed up in our office in the past by Dr. Bertrand with other past medical history includes history of longstanding hypertension, history of renal artery stenosis based on the history, type 2 diabetes mellitus, question of lupus in the past, who presented to the hospital, complains of chest pain, which is radiating into her arm. There was also associated nausea and vomiting. She has been having experiencing on and off lower extremity edema, for which she takes torsemide as needed. EMS reported the patient's blood pressure systolic was about 240. She apparently took all her prescribed medications including diuretics on a regular basis except for the yesterday morning when she had vomiting and she threw up all her medications. She denies using any illicit drugs or alcohol. She denies using any NSAIDs. There are no nasal decongestants. In the ER, the patient was given a round of all her home medications and was admitted to the hospital. Blood pressure is improved, but her troponins are elevated and seen by Cardiology. She denies any diarrhea. She denies any dysuria, urgency of urination, frequent urination. At the present time, she does not have any chest pain, fever, or chills. REVIEW OF SYSTEMS: As noted above. Other system reviewed and negative. PAST MEDICAL HISTORY: History of CKD stage 4 in the setting of longstanding diabetes and hypertension with possible renovascular disease, followed up by Dr. Bertrand. Apparently, she told that she was on a transplant list, but she is not on the transplant list and she has been referred to transplant and seen them once. She has history of hypertension with hypertensive retinopathy and renal disease, history of macular degeneration and diabetes with diabetic retinopathy, history of CHF, history of heart block secondary, history of hypersomnia, cardiomyopathy, nicotine dependence, history of eclampsia, fatty liver, history of DVT, and migraine headache, question of history of Sjogren disease and lupus, rheumatoid arthritis, history of hypercholesterolemia, anxiety, PTSD, bipolar disorder, and mixed connective tissue disorder. FAMILY HISTORY: Includes father with mental health disorder and substance abuse, which is the same for the brothers. There is also family history of diabetes and hypertension.. PAST SURGICAL HISTORY: History of hysterectomy, history of bronchoscopy and cholecystectomy. PERSONAL AND SOCIAL HISTORY: The patient currently every days tobacco smoker. She smokes about 0.5 packs per day. Occasionally uses marijuana and does not use other illicit drugs. ALLERGIES: INCLUDE ALLERGIES TO AMOXICILLIN, CEFACLOR, CEPHALEXIN, CEPHALOSPORIN, PENICILLIN, GABAPENTIN. MEDICATIONS: At home include carvedilol 50 mg p.o. b.i.d., nifedipine 90 mg b.i.d. Trulicity, torsemide 20 mg 2 tablets as needed, Entresto 97/103 p.o. b.i.d., spironolactone 100 daily. PHYSICAL EXAMINATION: GENERAL: The patient is resting in the ER bed. Awake, alert, oriented x3. VITAL SIGNS: Blood pressure was 156/91, pulse 73, afebrile. HEENT: Shows pupils are equal, round and reactive bilaterally to light. No jugular venous distention is noted. NECK: Supple. No thyromegaly is noted. CARDIOVASCULAR SYSTEM: S1, S2 without rub or murmur. RESPIRATORY SYSTEM: Mildly decreased in the bases. No crepitation or rhonchi is noted. ABDOMEN: Obese, soft. Bowel sounds normal. EXTREMITIES: Showed trace to 1+ edema bilaterally. LABORATORY DATA: Labs done today; WBC is 10.8, hemoglobin 9.8, hematocrit 28.3, platelets were 390. INR 1.1. Labs done today are pending. Labs done yesterday; sodium 134, potassium 4.6, chloride 99, CO2 26, BUN 60, creatinine 4.19, estimated GFR 12, glucose 220. Troponin level is increased to 5998. Albumin 3.2. Urinalysis shows yellow urine, specific gravity 1.010, protein was 300, rbc's 2, wbc's 5. Serological workup including VARINDER, double-stranded DNA, ANCA levels were normal in 2021. IMPRESSION: 1. A 43-year-old female with acute kidney injury. Acute kidney injury in this patient likely secondary to severe renal hypoperfusion/acute tubular injury in the setting of acute coronary syndrome. The patient clinically does not look prerenal. She also could have renal hypoperfusion in the setting of Entresto. The patient had hypertensive emergency with likely nephron damage in the setting of uncontrolled hypertension. At this juncture, I doubt the patient has obstructive uropathy, but we will rule out obstruction. 2. Chronic kidney disease, stage 4, which is progressively getting worse in the setting of longstanding hypertension/renovascular disease, diabetes. 3. Hypertensive emergency, now blood pressure better in the setting of renal parenchymal hypertension, possible renovascular disease. 4. Anemia of chronic disease. 5. Renal artery stenosis. 6. Acute coronary syndrome. RECOMMENDATIONS: At this juncture, I have taken the liberty to order spot urine for electrolytes, protein, creatinine. I will hold the Entresto today and lower the dose to 24/26 b.i.d. starting tomorrow. Continue with all other blood pressure medications. Agree with her adding hydralazine, we can maximize to 100 mg 3 times a day. Cardiology follow for elevated troponin levels. I have ordered a renal ultrasound to assess size of kidney to rule out obstruction. I will review all the medical records from her office. We can continue the present dose of spironolactone as potassium level is acceptable. There is no immediate indication for renal replacement therapy. Thank you for allowing me to participate in medical management of the patient. MD DONA Livingston/NOEMI / [id number]
[2023-06-09] MEDS: NIFEdipine ER 90 MG TAB.ER.24 PO ×2 (09:16→22:52)
[2023-06-09] MEDS: hydrALAZINE HCl 50 MG TABLET 100 MG PO ×3 (09:16→22:55)
[2023-06-09] MEDS: Sacubitril/Valsartan 24/26 1 TAB TABLET PO ×2 (09:16→22:59)
[2023-06-09] MEDS: carvediloL 25 MG TABLET 50 MG PO ×2 (09:16→22:55)
[2023-06-09] MEDS: Aspirin Enteric Coated 81 MG TABLET.DR PO (09:16)
[2023-06-09] MEDS: Spironolactone 25 MG TABLET 100 MG PO (09:16)
--- NOTE | 2023-06-09 09:16 | MHC.CM.PN ---
CM met with Patient at bedside and addressed IMM with her, providing Patient with the original and a copy has been placed on the chart. Patient lives in a house with her 3 children, ages 18,16 & 4 years of age. 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 CM has initiated and will follow for dc planning. PCP is Dr. Mauricio Nolasco and the HCP is Friend/Liss @ [phone].
[2023-06-09] MEDS: Insulin Lispro 100 UNIT/ML 3 ML VIAL SUBCUT ×3 (09:17→23:17)
[2023-06-09] MEDS: Nicotine 21 MG PATCH.TD24 TRANSDERMA (09:17)
[2023-06-09] MEDS: 0.9 % Sodium Chloride Flush 3 ML SYRINGE IVFLUSH ×2 (09:17→16:58)
[2023-06-09] MEDS: Torsemide 20 MG TABLET 40 MG PO (09:32)
[2023-06-09 11:36] LABS: Glucose, Whole Blood 218 mg/dL (60-115)
--- NOTE | 2023-06-09 12:58 | P.PNCA_ITS ---
Subjective Subjective Date of Service: 06/09/23 Interval history: Seen examined at bedside. Complaining of dull ache in the chest. Blood pressure is mildly elevated. Anxious and wants to go home because she has young children at home. Physical Exam Vital Signs: Last Vital Signs Temp 97.5 F 06/09/23 11:31 Pulse 68 06/09/23 11:31 Resp 16 06/09/23 11:31 BP 144/70 H 06/09/23 11:31 Pulse Ox 96 06/09/23 11:31 O2 Del Method Room Air 06/09/23 11:31 BMI result Body Mass Index 33.9 GENERAL APPEARANCE: in no acute distress, pleasant. NECK: no carotid bruit, no jugular venous distention. SKIN: no suspicious lesions, warm and dry. HEART: no murmurs, regular rate and rhythm. LUNGS: clear to auscultation bilaterally. ABDOMEN: soft, nontender. EXTREMITIES: No edema. PERIPHERAL PULSES: equal. NEUROLOGIC: No gross deficits, AAO X 3 Objective Labs and Meds 06/08/23 05:20 06/09/23 07:40 Lab results: Laboratory Results - last 24 hr 06/08/23 06/08/23 06/08/23 13:13 14:59 18:03 aPTT Heparin Protocol 60.4 D Protein S Activity Total Protein S Ag Free Protein S Antigen Antithrombin III Ag Antithrombin III Activ Factor V Leiden Factor V Leiden Interp Sodium Potassium Chloride Carbon Dioxide Anion Gap BUN Creatinine Estim Creat Clear Calc Estimated GFR POC Glucose 274 H Fasting Glucose Calcium Total Bilirubin AST ALT Alkaline Phosphatase C-Reactive Protein Total Protein Albumin U Random Total Protein 70 H Ur Random Sodium 78.0 Urine Creatinine 26.56 06/08/23 06/08/23 06/09/23 18:49 21:24 00:29 aPTT Heparin Protocol 47.1 L D Protein S Activity Total Protein S Ag Free Protein S Antigen Antithrombin III Ag Antithrombin III Activ Factor V Leiden Factor V Leiden Interp Sodium Potassium Chloride Carbon Dioxide Anion Gap BUN Creatinine Estim Creat Clear Calc Estimated GFR POC Glucose 200 H 262 H Fasting Glucose Calcium Total Bilirubin AST ALT Alkaline Phosphatase C-Reactive Protein Total Protein Albumin U Random Total Protein Ur Random Sodium Urine Creatinine 06/09/23 06/09/23 06/09/23 07:32 07:40 11:29 aPTT Heparin Protocol 62.6 D Protein S Activity Cancelled Total Protein S Ag Cancelled Free Protein S Antigen Cancelled Antithrombin III Ag Cancelled Antithrombin III Activ Cancelled Factor V Leiden Cancelled Factor V Leiden Interp Cancelled Sodium 134 L Potassium 4.9 Chloride 100 Carbon Dioxide 24 Anion Gap 15 BUN 54 H Creatinine 4.29 H* Estim Creat Clear Calc 20.7 Estimated GFR 11 POC Glucose 204 H 218 H Fasting Glucose 217 H Calcium 7.6 L D Total Bilirubin 0.7 AST 13 ALT 9 Alkaline Phosphatase 116 C-Reactive Protein 0.30 Total Protein 6.0 L Albumin 3.5 U Random Total Protein Ur Random Sodium Urine Creatinine Imaging Radiologist's impression: Impressions Carotid Doppler Study 06/08/23 18:28 IMPRESSION: 1. RIGHT: Normal right internal carotid artery without atherosclerotic plaque or hemodynamically significant stenosis. 2. LEFT: Normal left internal carotid artery without atherosclerotic plaque or hemodynamically significant stenosis. Progress Note: A&P Assessment and plan (1) NSTEMI (non-ST elevated myocardial infarction): Status: Acute (2) Malignant hypertension: Status: Acute Plan 43-year-old female who is presenting for significantly elevated blood pressure and chest discomfort. She has left ventricular hypertrophy and LV strain pattern on the EKG. She had a significantly elevated blood pressures on admission. Echocardiography has not shown any wall motion abnormality but did show significant left ventricular hypertrophy. Overall presentation appears to be related to elevated blood pressure and filling pressures as she clearly had some evidence of volume overload. Blood pressure is improving. Stop the heparin drip. Ambulate and see if she has any symptoms. Would recommend stopping aspirin and starting on or Plavix 75 mg daily. She will need follow-up with Dr. Perla who is her primary care sales representative. Thank you for allowing me to participate in the care of your patient. Please feel free to contact me if you have any questions. Time Spent With Patient Time: Total time managing care of this patient today ____ minutes. Progress Note: Quality Stroke Does the patient have a stroke diagnosis?: No Procedures Date of Service Date of Service: 06/09/23
[2023-06-09 13:10] LABS: PTT Heparin Drip 56.7 SEC (53-77.9)
--- NOTE | 2023-06-09 13:46 | MHC.CM.PN ---
Per MD's request, CM met with Patient at bedside, who is agreeable to [facility] and a new referral to [facility]. CM will follow.
[2023-06-09 15:45] LABS: Estimated Average Glucose 126 mg/dL
[2023-06-09 16:04] LABS: Glucose, Whole Blood 145 mg/dL (60-115)
--- NOTE | 2023-06-09 18:00 | HO.PM.IMPN ---
Subjective Subjective Date of Service: 06/10/23 <Kenn Travis MD - Last Filed: 06/10/23 14:09> 06/10/23 <SPIKE Ramon - Last Filed: 06/10/23 12:17> Interval History: Uncontrolled hypertension, NSTEMI. <Kenn Travis MD - Last Filed: 06/10/23 14:09> Review of Systems Patient denies any chest pain or shortness of breath Has some vision changes on and off but improves-she was supposed to see worship leader <Kenn Travis MD - Last Filed: 06/10/23 14:09> Physical Exam Vital Signs: Vital Signs: Last Vital Signs Temp 97.3 F 06/09/23 15:03 Pulse 66 06/09/23 15:03 Resp 20 06/09/23 15:03 BP 125/80 06/09/23 15:03 Pulse Ox 99 06/09/23 15:03 O2 Del Method Room Air 06/09/23 15:03 BMI result Body Mass Index 33.9 <Kenn Travis MD - Last Filed: 06/10/23 14:09> Appearance: Alert.? Oriented X3.? cvs: [id number], [id number] . res: clear to auscultation ,no rhonchii or wheezing abd: no rebound or guarding ,nt, bs present. ext pulses present , no cyanosis. neuro: axo3 , nonfocal. <Kenn Travis MD - Last Filed: 06/10/23 14:09> Objective Data Active Medications Albuterol Sulfate (Albuterol Sulfate 90 Mcg 8 Gm Inhaler) 1 puff INHALE QID PRN PRN Reason: Wheezing Aspirin (Aspirin Enteric Coated 81 Mg Tablet.) 81 mg PO DAILY [facility] Last Admin: 06/09/23 09:16 Dose: 81 mg Documented By: MERLINE Atorvastatin Calcium (Atorvastatin Calcium 80 Mg Tablet) 80 mg PO BEDTIME [facility] Last Admin: 06/08/23 22:00 Dose: 80 mg Documented By: DARLING Carvedilol (Carvedilol 25 Mg Tablet) 50 mg PO BID [facility]; Protocol Last Admin: 06/09/23 09:16 Dose: 50 mg Documented By: MERLINE Dextrose (Dextrose 50 % 25 Gm/50 Ml Syringe) 25 gm IVPUSH Q15M PRN; Protocol PRN Reason: per Hypoglycemia Standing Ord. Glucose (Glucose Gel 15 Gm Gel..Gram.) 15 gm PO Q15M PRN; Protocol PRN Reason: per Hypoglycemia Standing Ord. Hydralazine HCl (Hydralazine Hcl 50 Mg Tablet) 100 mg PO TID [facility]; Protocol Last Admin: 06/09/23 16:57 Dose: 100 mg Documented By: MERLINE Insulin Human Lispro (Insulin Lispro 100 Unit/Ml 3 Ml Vial) 0 unit SUBCUT QIDACHS [facility]; Protocol Last Admin: 06/09/23 16:13 Dose: Not Given Documented By: MERLINE Non-Admin Reason: No Insulin Coverage Morphine Sulfate (Morphine Sulfate 4 Mg/Ml Cartridge) 4 mg IVPUSH Q3H PRN; Protocol PRN Reason: Pain, Severe (Pain Scale 7-10) Last Admin: 06/09/23 16:57 Dose: 4 mg Documented By: MERLINE Nicotine (Nicotine 21 Mg Patch.Td24) 21 mg TRANSDERMA DAILY [facility] Last Admin: 06/09/23 09:17 Dose: 21 mg Documented By: MERLINE Nifedipine (Nifedipine Er 90 Mg Tab.Er.24) 90 mg PO BID [facility]; Protocol Last Admin: 06/09/23 09:16 Dose: 90 mg Documented By: MERLINE Nitroglycerin (Nitroglycerin 2 % Oint 1 Gm Packet) 1 inch TRANSDERMA Q6H [facility] Last Admin: 06/09/23 16:58 Dose: 1 inch Documented By: MERLINE Omeprazole (Omeprazole 20 Mg Capsule.Dr) 20 mg PO DAILY PRN PRN Reason: heartburn Last Admin: 06/07/23 22:15 Dose: 20 mg Documented By: TAMIA Ondansetron HCl (Ondansetron Hcl 4 Mg/2 Ml Vial) 4 mg IVPUSH Q4H PRN PRN Reason: nausea Last Admin: 06/09/23 16:57 Dose: 4 mg Documented By: MERLINE Sacubitril/Valsartan (Sacubitril/Valsartan 1 Tab Tablet) 1 tab PO BID [facility]; Protocol Last Admin: 06/09/23 09:16 Dose: 1 tab Documented By: MERLINE Sodium Chloride (0.9 % Sodium Chloride Flush 3 Ml Syringe) 3 ml IVFLUSH QSHIFT [facility] Last Admin: 06/09/23 16:58 Dose: 3 ml Documented By: MERLINE Spironolactone (Spironolactone 25 Mg Tablet) 100 mg PO DAILY [facility]; Protocol Last Admin: 06/09/23 09:16 Dose: 100 mg Documented By: MERLINE Torsemide (Torsemide 20 Mg Tablet) 40 mg PO BID PRN; Protocol PRN Reason: Edema Last Admin: 06/09/23 09:32 Dose: 40 mg Documented By: MERLINE <Kenn Travis MD - Last Filed: 06/10/23 14:09> Labs CBC & Chem 7: 06/08/23 05:20 06/10/23 05:38 <Kenn Travis MD - Last Filed: 06/10/23 14:09> Labs: Laboratory Results - last 24 hr 06/08/23 06/08/23 06/08/23 05:20 18:03 18:49 aPTT Heparin Protocol 60.4 D Protein S Activity Total Protein S Ag Free Protein S Antigen Antithrombin III Ag Antithrombin III Activ Factor V Leiden Factor V Leiden Interp Anion Gap Estim Creat Clear Calc Estimated GFR POC Glucose 200 H Fasting Glucose Estimat Average Glucose 126 Hemoglobin A1c % 6.0 Calcium Total Bilirubin AST ALT Alkaline Phosphatase C-Reactive Protein Total Protein Albumin 06/08/23 06/09/23 06/09/23 21:24 00:29 07:32 aPTT Heparin Protocol 47.1 L D Protein S Activity Total Protein S Ag Free Protein S Antigen Antithrombin III Ag Antithrombin III Activ Factor V Leiden Factor V Leiden Interp Anion Gap Estim Creat Clear Calc Estimated GFR POC Glucose 262 H 204 H Fasting Glucose Estimat Average Glucose Hemoglobin A1c % Calcium Total Bilirubin AST ALT Alkaline Phosphatase C-Reactive Protein Total Protein Albumin 06/09/23 06/09/23 06/09/23 07:40 11:29 12:53 aPTT Heparin Protocol 62.6 D 56.7 Protein S Activity Cancelled Total Protein S Ag Cancelled Free Protein S Antigen Cancelled Antithrombin III Ag Cancelled Antithrombin III Activ Cancelled Factor V Leiden Cancelled Factor V Leiden Interp Cancelled Anion Gap 15 Estim Creat Clear Calc 20.7 Estimated GFR 11 POC Glucose 218 H Fasting Glucose 217 H Estimat Average Glucose Hemoglobin A1c % Calcium 7.6 L D Total Bilirubin 0.7 AST 13 ALT 9 Alkaline Phosphatase 116 C-Reactive Protein 0.30 Total Protein 6.0 L Albumin 3.5 06/09/23 15:58 aPTT Heparin Protocol Protein S Activity Total Protein S Ag Free Protein S Antigen Antithrombin III Ag Antithrombin III Activ Factor V Leiden Factor V Leiden Interp Anion Gap Estim Creat Clear Calc Estimated GFR POC Glucose 145 H Fasting Glucose Estimat Average Glucose Hemoglobin A1c % Calcium Total Bilirubin AST ALT Alkaline Phosphatase C-Reactive Protein Total Protein Albumin <Kenn Travis MD - Last Filed: 06/10/23 14:09> Assessment and Plan (1) Hypertensive urgency: Status: Acute <Kenn Travis MD - Last Filed: 06/10/23 14:09> Assessment and Plan: 43-year-old female with past medical history significant for essential hypertension, CKD on transplant list who presented complaining of chest pain that was radiating to right arm began earlier this morning. She states his pain was accompanied with nausea and vomiting it was self limiting. Upon transport, EMS found her blood pressure to be 240 for which she received a nitro with improvement in her pressure and her chest pain. Upon arrival to the emergency room she was essentially started on her current medicines and admission was requested 1. Hypertensive urgency Pressures have been better control however not at goal. Seen by renal and recommendations noted. No further chest pain and troponins have peaked -increase hydralazine to 100 mg t.i.d. -will switch nitro paste to patch -is following up with Dr. Duarte who as outpatient 2. CKD stage III B -consult to Renal as above . . . Dr. Duarte's to follow -follow renals/divalents 3.DMII Patient follows with Endocrine (Dr. John). . . States has not started any therapies at this time. Is following her sugars x1 month and will follow up with him to decide at that time. At this time will treat conservatively -lispro correctional scale -ADA diet -adjust as indicated. Patient was complaining complained of intermittent right eye changes yesterday that have improved with the addition of nitroglycerin. Today she is complaining similar changes on the left eye: She said she was seen by worship leader and so far workup pending Exam on both temporal-no tenderness on palpation. Will check ESR/crp and give a dose of prednisone-until esr/crp back. Full code Marlenanox Patient will require ongoing hospitalization for heparin drip pending specialists re-evaluation; also requires specialist consultation for adequate blood pressure control <Kenn Travis MD - Last Filed: 06/10/23 14:09> Quality Stroke Does the patient have a stroke diagnosis?: No <Kenn Travis MD - Last Filed: 06/10/23 14:09> VTE Prior VTE?: No <Kenn Travis MD - Last Filed: 06/10/23 14:09> VTE Risk Level:: Medical - moderate - high <Kenn Travis MD - Last Filed: 06/10/23 14:09> VTE Device Contraindication: Treatment Not Indicated <Kenn Travis MD - Last Filed: 06/10/23 14:09> VTE Drug Contraindication: N/A - Med Ordered <Kenn Travis MD - Last Filed: 06/10/23 14:09>
[2023-06-09 19:46] LABS: Glucose, Whole Blood 241 mg/dL (60-115)
[2023-06-09 20:51] LABS: Erythrocyte Sedimentation Rate 13 MM/HR (0-20)
[2023-06-09 22:52] LABS: Glucose, Whole Blood 198 mg/dL (60-115)
[2023-06-09] MEDS: predniSONE 20 MG TABLET 60 MG PO (22:53)
[2023-06-09] MEDS: Atorvastatin Calcium 80 MG TABLET PO (22:55)
[2023-06-09] MEDS: Insulin Glargine,Hum.rec.anlog 100 UNIT/ML 10 ML VIAL 20 UNIT SUBCUT (22:56)
[2023-06-10 04:00] VITALS: BP 131/66; PULSE 72; RESP 16; TEMP 36.9; O2SAT 95
[2023-06-10 06:37] LABS: Alanine Aminotransferase 10 U/L (0-31); Albumin Level 3.6 g/dL (3.5-5.0); Alkaline Phosphatase 116 U/L (39-117); Anion Gap 16 (12-20); Aspartate Amino Transferase 9 U/L (5-31); Bilirubin Total 1.1 mg/dL (0.0-1.0); Blood Urea Nitrogen 59 mg/dL (9-16); Calcium 8.1 mg/dL (8.4-10.2); Carbon Dioxide 24 mmol/L (22-29); Chloride 97 mmol/L (96-108); Estimated Glomerular Filt Rate 10; Glucose Fasting 229 mg/dL (60-99); Potassium 5.6 mmol/L (3.3-5.1); Sodium 131 mmol/L (135-145)
[2023-06-10] MEDS: Nitroglycerin 2 % Oint 1 GM Packet 1 INCH TRANSDERMA (06:41)
[2023-06-10] MEDS: Morphine Sulfate 4 MG/ML CARTRIDGE IVPUSH ×3 (06:49→15:49)
[2023-06-10 07:01] VITALS: BP 137/83; PULSE 79; RESP 18; TEMP 36.3; O2SAT 96
[2023-06-10 07:13] LABS: Glucose, Whole Blood 224 mg/dL (60-115)
[2023-06-10] MEDS: Sodium Zirconium Cyclosilicate 10 GM POWD.PACK PO (08:18)
[2023-06-10] MEDS: Nicotine 21 MG PATCH.TD24 TRANSDERMA (08:19)
[2023-06-10] MEDS: carvediloL 25 MG TABLET 50 MG PO ×2 (08:20→21:47)
[2023-06-10] MEDS: NIFEdipine ER 90 MG TAB.ER.24 PO ×2 (08:20→21:44)
[2023-06-10] MEDS: Aspirin Enteric Coated 81 MG TABLET.DR PO (08:20)
[2023-06-10] MEDS: hydrALAZINE HCl 50 MG TABLET 100 MG PO ×3 (08:20→21:45)
[2023-06-10] MEDS: 0.9 % Sodium Chloride Flush 3 ML SYRINGE IVFLUSH ×2 (08:21→15:47)
[2023-06-10] MEDS: Insulin Lispro 100 UNIT/ML 3 ML VIAL SUBCUT ×4 (08:27→21:45)
[2023-06-10] MEDS: ondansetron HCL 4 MG/2 ML VIAL IVPUSH ×2 (09:37→15:51)
--- NOTE | 2023-06-10 10:12 | MHC.CM.PN ---
Per ROUNDS discussion, Patient is not yet medically cleared for dc (*worsening Kidney Failure); home with new [facility] is the goal and CM will continue to follow.
[2023-06-10 11:08] VITALS: BP 133/68; PULSE 81; RESP 18; TEMP 36.6; O2SAT 97
[2023-06-10 12:05] LABS: Glucose, Whole Blood 343 mg/dL (60-115)
--- NOTE | 2023-06-10 12:34 | W.ED.CONS.HO ---
Consult Details Consult Details: Called to preform eye pressures b/l and ophthalmic exam to room 452 due to painless L vision loss this AM. Retinal issues in the past followed by specialist for R eye. Decreased vision b/l. Almost absent per patient but can see color. Eye pressure L 15, R 14 Ophthalmic exam- unremarkable normal vessels, 2:1 cup/disc ration, normal lens and conjunctiva I advise optho consult or further imaging hospitalist to assume care.
--- NOTE | 2023-06-10 14:10 | HO.PM.IMPN ---
Subjective Subjective Date of Service: 06/10/23 Interval History: Uncontrolled hypertension,hyperglycemia Review of Systems Denies any chest pain or shortness a breath Left eye blindness somewhat improving, she says that other day right-sided blindness improved with nitroglycerin and before that it was also getting better with torsemide? Physical Exam Vital Signs: Vital Signs: Last Vital Signs Temp 97.8 F 06/10/23 11:08 Pulse 81 06/10/23 11:08 Resp 18 06/10/23 11:08 BP 133/68 06/10/23 11:08 Pulse Ox 97 06/10/23 11:08 O2 Del Method Room Air 06/10/23 11:08 BMI result Body Mass Index 33.9 Appearance: Alert.? Oriented X3.? cvs: rrr, [id number] . res: clear to auscultation ,no rhonchii or wheezing abd: no rebound or guarding ,nt, bs present. ext pulses present , no cyanosis. neuro: axo3 , nonfocal. Objective Data Active Medications Albuterol Sulfate (Albuterol Sulfate 90 Mcg 8 Gm Inhaler) 1 puff INHALE QID PRN PRN Reason: Wheezing Aspirin (Aspirin Enteric Coated 81 Mg Tablet.) 81 mg PO DAILY [facility] Last Admin: 06/10/23 08:20 Dose: 81 mg Documented By: ENMA Atorvastatin Calcium (Atorvastatin Calcium 80 Mg Tablet) 80 mg PO BEDTIME [facility]S AT [facility] Last Admin: 06/09/23 22:55 Dose: 80 mg Documented By: ADRIANTRJuliette Carvedilol (Carvedilol 25 Mg Tablet) 50 mg PO BID [facility]S [facility]; Protocol Last Admin: 06/10/23 08:20 Dose: 50 mg Documented By: ENMA Dextrose (Dextrose 50 % 25 Gm/50 Ml Syringe) 25 gm IVPUSH Q15M PRN; Protocol PRN Reason: per Hypoglycemia Standing Ord. Glucose (Glucose Gel 15 Gm Gel..Gram.) 15 gm PO Q15M PRN; Protocol PRN Reason: per Hypoglycemia Standing Ord. Hydralazine HCl (Hydralazine Hcl 50 Mg Tablet) 100 mg PO TID [facility] 234 [facility]S [facility]; Protocol Last Admin: 06/10/23 08:20 Dose: 100 mg Documented By: ENMA Insulin Glargine (Insulin Glargine,Hum.Rec.Anlog 100 Unit/Ml 10 Ml Vial) 25 unit SUBCUT BEDTIME [facility] 234 BEDS [facility] Insulin Human Lispro (Insulin Lispro 100 Unit/Ml 3 Ml Vial) 0 unit SUBCUT QIDACHS [facility] 234 [facility]S AT [facility]; Protocol Last Admin: 06/10/23 12:12 Dose: 8 unit Documented By: ENMA Morphine Sulfate (Morphine Sulfate 4 Mg/Ml Cartridge) 4 mg IVPUSH Q3H PRN; Protocol PRN Reason: Pain, Severe (Pain Scale 7-10) Last Admin: 06/10/23 09:34 Dose: 4 mg Documented By: ENMA Nicotine (Nicotine 21 Mg Patch.Td24) 21 mg TRANSDERMA DAILY [facility] 234 [facility]S AT [facility] Last Admin: 06/10/23 08:19 Dose: 21 mg Documented By: ENMA Nifedipine (Nifedipine Er 90 Mg Tab.Er.24) 90 mg PO BID [facility] 234 [facility]S AT [facility]; Protocol Last Admin: 06/10/23 08:20 Dose: 90 mg Documented By: ENMA Nitroglycerin (Nitroglycerin 2 % Oint 1 Gm Packet) 1 inch TRANSDERMA Q6H [facility]S [facility] 234 [facility]S AT [facility] Last Admin: 06/10/23 12:13 Dose: Not Given Documented By: ENMA Non-Admin Reason: Patient Refused Omeprazole (Omeprazole 20 Mg Capsule.) 20 mg PO DAILY PRN PRN Reason: heartburn Last Admin: 06/07/23 22:15 Dose: 20 mg Documented By: TAMIA Ondansetron HCl (Ondansetron Hcl 4 Mg/2 Ml Vial) 4 mg IVPUSH Q4H PRN PRN Reason: nausea Last Admin: 06/10/23 09:37 Dose: 4 mg Documented By: ENMA Sodium Chloride (0.9 % Sodium Chloride Flush 3 Ml Syringe) 3 ml IVFLUSH QSHIFT COUNTS [facility]CLUDE 234 BEDS AT [facility] Last Admin: 06/10/23 08:21 Dose: 3 ml Documented By: ENMA Torsemide (Torsemide 20 Mg Tablet) 40 mg PO BID PRN; Protocol PRN Reason: Edema Last Admin: 06/09/23 09:32 Dose: 40 mg Documented By: MERLINE Labs 06/08/23 05:20 06/11/23 08:22 Labs: Laboratory Results - last 24 hr 06/08/23 06/09/23 06/09/23 05:20 15:58 19:35 ESR 13 Hold Purple Top Anion Gap Estim Creat Clear Calc Estimated GFR POC Glucose 145 H Fasting Glucose Estimat Average Glucose 126 Hemoglobin A1c % 6.0 Calcium Total Bilirubin AST ALT Alkaline Phosphatase Total Protein Albumin 06/09/23 06/09/23 06/10/23 19:42 22:48 05:38 ESR Hold Purple Top SEE NOTE Anion Gap 16 Estim Creat Clear Calc 19.0 Estimated GFR 10 POC Glucose 241 H 198 H Fasting Glucose 229 H Estimat Average Glucose Hemoglobin A1c % Calcium 8.1 L D Total Bilirubin 1.1 H AST 9 ALT 10 Alkaline Phosphatase 116 Total Protein 6.0 L Albumin 3.6 06/10/23 06/10/23 07:08 12:01 ESR Hold Purple Top Anion Gap Estim Creat Clear Calc Estimated GFR POC Glucose 224 H 343 H Fasting Glucose Estimat Average Glucose Hemoglobin A1c % Calcium Total Bilirubin AST ALT Alkaline Phosphatase Total Protein Albumin Assessment and Plan (1) NSTEMI (non-ST elevated myocardial infarction): Status: Acute (2) HTN (hypertension): Status: Acute Plan this note for date 06/10/23 43-year-old female with past medical history significant for essential hypertension, CKD on transplant list who presented complaining of chest pain that was radiating to right arm began earlier this morning. She states his pain was accompanied with nausea and vomiting it was self limiting. Upon transport, EMS found her blood pressure to be 240 for which she received a nitro with improvement in her pressure and her chest pain. Upon arrival to the emergency room she was essentially started on her current medicines and admission was requested Hypertensive unconrtolled Pressures have been better control however not at goal. Seen by renal and recommendations noted. No further chest pain and troponins have peaked continue hydralazine to 100 mg t.i.d., nitro paste to patch,procardia. nephrology followup. Nstemi: will change asa to plavix , statin, completed 48 heparin (on 06/09/23) no chest pain Echocardiography has not shown any wall motion abnormality but did show significant left ventricular hypertrophy. cardio-recomended to continue above. akion CKD stage III B renal function progressively worsening follow renals/divalents DMII Patient follows with Endocrine (Dr. John). . . States has not started any therapies at this time. Is following her sugars x1 month and will follow up with him to decide at that time. At this time will treat conservatively -lispro correctional scale -ADA diet -adjust as indicated. Patient was complaining complained of intermittent right eye changes yesterday that have improved with the addition of nitroglycerin. Today she is complaining similar changes on the left eye: She said she was seen by truss puller helper and so far workup pending Exam on both temporal-no tenderness on palpation. She had bilateral laser interventions on the both eyes and follows up with [facility] ESR/crp are normal. we checked eye pressure and eye exam-seems fine (please see marcin piedra's note from 06/10/23). d/w Ophthalmology Dr [place]rieta-currently recommended for blood pressure and diabetes control , and patient will need to follow-up with her own truss puller helper outpatient. in addition d/w neurology ct head shows ch stroke changes -will add mri for further eval. Full code Lovenox Patient will require ongoing hospitalization for jared ,diabteic and bp control- moniter bp/dm ,vision changes, also close monitoring for renal function and electrolytes.nephro expert follow up. Quality Stroke Does the patient have a stroke diagnosis?: No VTE Prior VTE?: No VTE Risk Level:: Medical - moderate - high VTE Device Contraindication: Treatment Not Indicated VTE Drug Contraindication: N/A - Med Ordered
[2023-06-10 15:11] VITALS: BP 138/69; PULSE 85; RESP 18; TEMP 36.4; O2SAT 98
[2023-06-10 15:34] LABS: Glucose, Whole Blood 280 mg/dL (60-115)
[2023-06-10 19:20] VITALS: BP 124/65; PULSE 84; RESP 16; O2SAT 98
[2023-06-10] MEDS: LORazepam 2 MG/ML VIAL 0.5 MG IVPUSH (20:08)
[2023-06-10 20:09] LABS: Glucose, Whole Blood 188 mg/dL (60-115)
[2023-06-10 20:23] LABS: Cardiolipin IgG Ab <2.0 GPL-U/mL; Cardiolipin IgM Ab <2.0 MPL-U/mL
[2023-06-10] MEDS: Atorvastatin Calcium 80 MG TABLET PO (21:44)
[2023-06-10] MEDS: Insulin Glargine,Hum.rec.anlog 100 UNIT/ML 10 ML VIAL 25 UNIT SUBCUT (21:46)
[2023-06-10 23:19] VITALS: BP 137/68; PULSE 75; RESP 18; TEMP 36.3; O2SAT 97
[2023-06-11] VITALS (7 sets, daily range): BP systolic 99–145; BP diastolic 52–73; PULSE 60–77; RESP 18–20; TEMP 35.8–36.8; O2SAT 93–98
[2023-06-11] MEDS: ondansetron HCL 4 MG/2 ML VIAL IVPUSH (00:22)
[2023-06-11] MEDS: Morphine Sulfate 4 MG/ML CARTRIDGE IVPUSH (00:25)
[2023-06-11] MEDS: 0.9 % Sodium Chloride Flush 3 ML SYRINGE IVFLUSH ×3 (00:27→16:15)
[2023-06-11 06:58] LABS: Protein C Activity 107 % normal (70-180)
[2023-06-11 07:21] LABS: Glucose, Whole Blood 154 mg/dL (60-115)
[2023-06-11] MEDS: NIFEdipine ER 90 MG TAB.ER.24 PO (07:53)
[2023-06-11] MEDS: hydrALAZINE HCl 50 MG TABLET 100 MG PO (07:53)
[2023-06-11] MEDS: carvediloL 25 MG TABLET 50 MG PO (07:53)
[2023-06-11] MEDS: Insulin Lispro 100 UNIT/ML 3 ML VIAL SUBCUT ×4 (07:54→20:42)
[2023-06-11] MEDS: Aspirin Enteric Coated 81 MG TABLET.DR PO (07:54)
[2023-06-11] MEDS: Nicotine 21 MG PATCH.TD24 TRANSDERMA (07:54)
[2023-06-11] MEDS: methylPREDNISolone Sod Succ 40 MG/ML VIAL IVPUSH (08:27)
[2023-06-11 09:01] LABS: Anion Gap 16 (12-20); Blood Urea Nitrogen 61 mg/dL (9-16); Calcium 7.6 mg/dL (8.4-10.2); Carbon Dioxide 23 mmol/L (22-29); Chloride 97 mmol/L (96-108); Creatinine Clr Calc Pharmacy 16.4; Estimated Glomerular Filt Rate 9; Glucose Random 163 mg/dL (60-115); Potassium 5.1 mmol/L (3.3-5.1); Sodium 131 mmol/L (135-145)
[2023-06-11 11:37] LABS: Glucose, Whole Blood 188 mg/dL (60-115)
--- NOTE | 2023-06-11 12:35 | P.PNNP_ITS ---
Subjective Subjective Date of Service: 06/11/23 Interval history: Consult for Uncontrolled hypertension, CKD / MAYURI Pt sitting up in the bed- Sleepy but aurousable Physical Exam 2 Vital Signs: Vital Signs: Last Vital Signs Temp 97.7 F 06/11/23 11:58 Pulse 62 06/11/23 11:58 Resp 20 06/11/23 11:58 BP 99/52 L 06/11/23 11:58 Pulse Ox 95 06/11/23 11:58 O2 Del Method Room Air 06/11/23 11:58 BMI result Body Mass Index 33.9 Appearance: sleepy .? Oriented X3.? cvs: rrr, [id number] . res: clear to auscultation ,no rhonchii or wheezing abd: no rebound or guarding ,nt, bs present. ext pulses present , no cyanosis. neuro: axo3 , nonfocal. Objective Data Labs 06/08/23 05:20 06/11/23 08:22 Labs: Laboratory Results - last 24 hr 06/08/23 06/09/23 06/10/23 18:03 07:40 15:08 Protein C Activity 107 Sodium Potassium Chloride Carbon Dioxide Anion Gap BUN Creatinine Estim Creat Clear Calc Estimated GFR POC Glucose 280 H Random Glucose Calcium Anti-Cardiolipin IgG Ab <2.0 Anti-Cardiolipin IgM Ab <2.0 06/10/23 06/11/23 06/11/23 19:26 07:16 08:22 Protein C Activity Sodium 131 L Potassium 5.1 Chloride 97 Carbon Dioxide 23 Anion Gap 16 BUN 61 H Creatinine 5.42 H* Estim Creat Clear Calc 16.4 Estimated GFR 9 POC Glucose 188 H 154 H Random Glucose 163 H Calcium 7.6 L D Anti-Cardiolipin IgG Ab Anti-Cardiolipin IgM Ab 06/11/23 11:32 Protein C Activity Sodium Potassium Chloride Carbon Dioxide Anion Gap BUN Creatinine Estim Creat Clear Calc Estimated GFR POC Glucose 188 H Random Glucose Calcium Anti-Cardiolipin IgG Ab Anti-Cardiolipin IgM Ab Procedures Date of Service Date of Service: 06/11/23 Assessment & Plan Assessment and plan (1) Acute kidney injury superimposed on CKD: Status: Acute (2) Malignant hypertension: Status: Acute Plan 1. A 43-year-old female with acute kidney injury. Acute kidney injury in this patient likely secondary to severe renal hypoperfusion/acute tubular injury in the setting of acute coronary syndrome. The patient clinically now looks prerenal. She also could have renal hypoperfusion in the setting of Entresto. The patient had hypertensive emergency with likely nephron damage in the setting of uncontrolled hypertension. We ruled out obstruction. 2. Chronic kidney disease, stage 4, which is progressively getting worse in the setting of longstanding hypertension/renovascular disease, diabetes. 3. Hypertensive emergency, now blood pressure is low in the setting of renal parenchymal hypertension, possible renovascular disease. 4. Anemia of chronic disease. 5. Renal artery stenosis. 6. Acute coronary syndrome. RECOMMENDATIONS: BP in the 90's - Hold all BP meds Lower Coreg to 12.5 BID IVF NS 150 ml / hr Ordered repeat urine lytes Repeat labs in AM F/u Urine output There is no immediate indication for renal replacement therapy. Thank you for allowing me to participate in medical management of the patient. Time Spent With Patient Time: Total time managing care of this patient today ____ minutes. Progress Note: Quality Stroke Does the patient have a stroke diagnosis?: No
--- NOTE | 2023-06-11 14:26 | HO.PM.IMPN ---
Subjective Subjective Date of Service: 06/12/23 Interval History: worsening renal function,boderline bp. abnormal mri Review of Systems Denies any chest pain or shortness a breath seems tired Left eye blurriness seems similar still producing urine Physical Exam Vital Signs: Vital Signs: Last Vital Signs Temp 97.7 F 06/11/23 11:58 Pulse 62 06/11/23 11:58 Resp 20 06/11/23 11:58 BP 99/52 L 06/11/23 11:58 Pulse Ox 95 06/11/23 11:58 O2 Del Method Room Air 06/11/23 11:58 BMI result Body Mass Index 33.9 Appearance: Alert.? Oriented X3.?tired cvs: rrr, [id number] . res: clear to auscultation ,no rhonchii or wheezing abd: no rebound or guarding ,nt, bs present. ext pulses present , no cyanosis. neuro: axo3 , moves all ext Objective Data Active Medications Albuterol Sulfate (Albuterol Sulfate 90 Mcg 8 Gm Inhaler) 1 puff INHALE QID PRN PRN Reason: Wheezing Atorvastatin Calcium (Atorvastatin Calcium 80 Mg Tablet) 80 mg PO BEDTIME [facility] Last Admin: 06/10/23 21:44 Dose: 80 mg Documented By: CLAIRE Carvedilol (Carvedilol 25 Mg Tablet) 25 mg PO BID [facility]; Protocol Clopidogrel Bisulfate (Clopidogrel Bisulfate 75 Mg Tablet) 75 mg PO DAILY [facility] Dextrose (Dextrose 50 % 25 Gm/50 Ml Syringe) 25 gm IVPUSH Q15M PRN; Protocol PRN Reason: per Hypoglycemia Standing Ord. Glucose (Glucose Gel 15 Gm Gel..Gram.) 15 gm PO Q15M PRN; Protocol PRN Reason: per Hypoglycemia Standing Ord. Hydralazine HCl (Hydralazine Hcl 50 Mg Tablet) 50 mg PO TID [facility]; Protocol Sodium Chloride (Ns) 1,000 mls @ 150 mls/hr IV .Q6H40M [facility] Stop: 06/11/23 19:24 Insulin Glargine (Insulin Glargine,Hum.Rec.Anlog 100 Unit/Ml 10 Ml Vial) 25 unit SUBCUT BEDTIME [facility] Last Admin: 06/10/23 21:46 Dose: 25 unit Documented By: CLAIRE Insulin Human Lispro (Insulin Lispro 100 Unit/Ml 3 Ml Vial) 0 unit SUBCUT QIDACHS [facility]; Protocol Last Admin: 06/11/23 11:52 Dose: 2 unit Documented By: HUI Methylprednisolone Sodium Succinate (Methylprednisolone Sod Succ 40 Mg/Ml Vial) 40 mg IVPUSH Q12H [facility] Last Admin: 06/11/23 08:27 Dose: 40 mg Documented By: HUI Nicotine (Nicotine 21 Mg Patch.Td24) 21 mg TRANSDERMA DAILY [facility] Last Admin: 06/11/23 07:54 Dose: 21 mg Documented By: HUI Nifedipine (Nifedipine Er 90 Mg Tab.Er.24) 90 mg PO BID [facility]; Protocol Last Admin: 06/11/23 07:53 Dose: 90 mg Documented By: HUI Nitroglycerin (Nitroglycerin 2 % Oint 1 Gm Packet) 1 inch TRANSDERMA Q6H [facility] Last Admin: 06/11/23 10:59 Dose: Not Given Documented By: HUI Non-Admin Reason: BPs soft Omeprazole (Omeprazole 20 Mg Capsule.Dr) 20 mg PO DAILY PRN PRN Reason: heartburn Last Admin: 06/07/23 22:15 Dose: 20 mg Documented By: TAMIA Ondansetron HCl (Ondansetron Hcl 4 Mg/2 Ml Vial) 4 mg IVPUSH Q4H PRN PRN Reason: nausea Last Admin: 06/11/23 00:22 Dose: 4 mg Documented By: BROOK Sodium Chloride (0.9 % Sodium Chloride Flush 3 Ml Syringe) 3 ml IVFLUSH QSHIFT [facility] Last Admin: 06/11/23 07:54 Dose: 3 ml Documented By: HUI Torsemide (Torsemide 20 Mg Tablet) 40 mg PO BID PRN; Protocol PRN Reason: Edema Last Admin: 06/09/23 09:32 Dose: 40 mg Documented By: THERONS Labs 06/12/23 05:39 06/12/23 13:22 Labs: Laboratory Results - last 24 hr 06/08/23 06/09/23 06/10/23 18:03 07:40 15:08 Protein C Activity 107 Anion Gap Estim Creat Clear Calc Estimated GFR POC Glucose 280 H Random Glucose Calcium Anti-Cardiolipin IgG Ab <2.0 Anti-Cardiolipin IgM Ab <2.0 06/10/23 06/11/23 06/11/23 19:26 07:16 08:22 Protein C Activity Anion Gap 16 Estim Creat Clear Calc 16.4 Estimated GFR 9 POC Glucose 188 H 154 H Random Glucose 163 H Calcium 7.6 L D Anti-Cardiolipin IgG Ab Anti-Cardiolipin IgM Ab 06/11/23 11:32 Protein C Activity Anion Gap Estim Creat Clear Calc Estimated GFR POC Glucose 188 H Random Glucose Calcium Anti-Cardiolipin IgG Ab Anti-Cardiolipin IgM Ab Assessment and Plan (1) White matter disease: Status: Acute (2) Metabolic acidosis: Status: Acute Plan 43-year-old female with past medical history significant for essential hypertension, CKD on transplant list who presented complaining of chest pain that was radiating to right arm began earlier this morning. She states his pain was accompanied with nausea and vomiting it was self limiting. Upon transport, EMS found her blood pressure to be 240 for which she received a nitro with improvement in her pressure and her chest pain. Upon arrival to the emergency room she was essentially started on her current medicines and admission was requested Hypertensive unconrtolled -now slowly trending down Pressures have been better control however not at goal. Seen by renal and recommendations noted. hold hydralazine to 100 mg t.i.d., nitro paste to patch,procardia, give iv fluids ,continue coreg cut down to half dosing ( keep coreg if bp 120's, avoid use below 120 mmhg) in addition added IV NS considering boderline bp and jared. nephrology followup. Nstemi: will change asa to plavix , statin, completed 48 heparin (on 06/09/23) no chest pain Echocardiography has not shown any wall motion abnormality but did show significant left ventricular hypertrophy. cardio-recomended to continue above. jared on CKD stage III B renal function progressively worsening,added ivf. follow renals/divalents DMII Patient follows with Endocrine (Dr. John). States has not started any therapies at this time. Is following her sugars x1 month and will follow up with him to decide at that time. At this time will treat conservatively -lispro correctional scale -ADA diet -adjust as indicated. Patient was complaining complained of intermittent right eye changes yesterday that have improved with the addition of nitroglycerin. vision chnages similar changes on the left eye: She said she was seen by roll forger and has b/l procedures outpatient Exam on both temporal-no tenderness on palpation,ESR/crp are normal(06/10/23), eye exam/pressure seems fine (please see my 06/10/23 note) d/w Ophthalmology Dr Murrieta also (06/10/23)-currently recommended for blood pressure and diabetes control , and patient will need to follow-up with her own roll forger outpatient. in addition d/w neurology ct head shows ch stroke changes mri:Again there is relatively extensive chronic white matter disease with a periventricular predominant distribution. There is also chronic disease involving the basal ganglia, thalami, and conchita. One of the callosal lesions located within the central portion of the genu. seen by neurology -patient ESR and CRP normal , anticardiolipin antibody IgG and IgM negative,protein C activity normal,protein C antigen pending, mri reviewed . as per neuro note: She has extensive white matter disease and that was first picked up in April after she was evaluated in the office in her current MRIs unchanged. The etiology is unclear. Diagnostic possibilities include chronic MS and, less likely vasculitis or ischemic microvascular disease but mid the periventriccular involvement being very prominent as well as involvement of the corpus callosum. MS seems more likely. She's also had sudden loss of vision in the eyes, which would go along with optic neuritis. recomended -added iv solumedrol 1000 mg qdaily for 3 days Full code Lovenox Patient will require ongoing hospitalization for jared ,diabteic and bp control- moniter bp/dm ,vision changes, also close monitoring for renal function and electrolytes.nephro expert follow up. Quality Stroke Does the patient have a stroke diagnosis?: No VTE Prior VTE?: No VTE Risk Level:: Medical - moderate - high VTE Device Contraindication: Treatment Not Indicated VTE Drug Contraindication: N/A - Med Ordered
--- NOTE | 2023-06-11 14:58 | PM.NEUROCN ---
History of Present Illness Data of Consult Service Date: 06/11/23 Primary Care Provider: Mauricio Nolasco, [facility] HPI Reason for consult: visual changes and abnormal MRI brain This is a 43-year-old female with CKD, currently on the transplant list admitted with chest pain that radiated into the right arm and then into the left with associated nausea, vomiting and she notes that she has been experiencing off and on bilateral lower extremity edema which is new for her and states that typically she just gets the water in her lungs. EMS reports that her blood pressure systolic was 240, patient reports that she is taking all of her prescribed medications to include diuretics and blood pressure. Patient received nitro and route in at this time states that she is feeling much better and has had no further episodes of nausea or vomiting. Patient denies alcohol or drug use but is an everyday smoker. Her medical Hx includes A recent evaluation in the office for sudden loss of viision in the right I in March with a 90% improvement. She had very abnnormal MRI at that time and was undergoing workup including workup for MS which has not been completed. Hypertensive retinopathy,Macular edema,Diabetic retinopathy,CHF (congestive heart failure),Malignant hypertension, Heart block AV second degree, Cardiomyopathy, Fatty liver, Diabetes mellitus, Migraines, Sjogren's disease/ Lupus/ MCTD, High cholesterol, Anxiety, PTSD , Bipolar 1 disorder. I was asked to see her for visual disturbance. She has marked chronic MRI white matter abnormalities that are unchanged from an MRI done 7 weeks ago with extensive periventricular white matter disease involving corpus callosum and conchita and mid brain and cerebral peduncles c/w chronic MS or possible cerebral vasculitis. Review of Systems Review of Systems: Denies any chest pain or shortness a breath seems tired Left eye blurriness seems similar still producing urine Yes all other systems are reviewed and are negative Constitutional: Constitutional: Reports as per HPI and Reports no additional constitutional complaints Eyes: Eyes: Reports as per HPI and Denies no additional eye complaints ENT: Denies system reviewed and no additional complaints, except as documented and Reports as per HPI Cardiovascular: Cardiovascular: Reports as per HPI, Reports no additional cardiovascular complaints, Denies acrocyanosis, Denies cool extremities, Reports chest pain, Denies leg edema, Denies lightheadedness, Denies palpitations and Denies dyspnea Respiratory: Respiratory: Reports as per HPI, Denies no additional respiratory complaints and Denies dyspnea Gastrointestinal: Gastrointestinal: Reports as per HPI and Denies no additional gastrointestinal complaints Musculoskeletal: Musculoskeletal: Reports no additional musculoskeletal complaints and Reports as per HPI Integumentary/Breasts: Skin/Breast: Reports system reviewed and no additional complaints, except as docu Neurologic: Reports system reviewed and no additional complaints, except as documented and Reports as per HPI Psychiatric: Psychiatric: Reports no additional psychiatric complaints and Reports as per HPI Endocrine: Endocrine: Reports no additional endocrine complaints, Reports as per HPI and Denies palpitations Hematologic/Lymphatic: Hematologic/Lymphatic: Reports no additional hematologic/lymphatic complaints and Reports as per HPI Allergic/Immunologic: Allergic/Immunologic: Reports no additional allergic/immunologic complaints and Reports as per HPI [facility] Past Medical History Medical History CKD (chronic kidney disease) Hypertensive retinopathy Macular edema Diabetic retinopathy CHF (congestive heart failure) Malignant hypertension Heart block AV second degree Hypersomnia Cardiomyopathy CKD (chronic kidney disease) stage 2, GFR 60-89 ml/min Nicotine dependence, cigarettes, uncomplicated (~1999) Eclampsia Fatty liver Heart failure, unspecified (~09/2020) History of DVT (deep vein thrombosis) Diabetes mellitus Migraines Sjogren's disease Lupus Rheumatoid arthritis High cholesterol Anxiety PTSD (post-traumatic stress disorder) Bipolar 1 disorder H/O mixed connective tissue disease HTN (hypertension) Family History Family History Father Substance use disorder Mental health disorder Brother Substance use disorder Mental health disorder Brother Substance use disorder Mental health disorder Other Diabetes HTN (hypertension) Surgical History Surgical History History of hysterectomy History of bronchoscopy (~11/2020) History of cholecystectomy (~05/2014) Social History Social History Household Members: Children Household Members Other:: 3 Housing: House Are you a primary manager intensive care unit to a significant other at home: No Do you presently have visiting nurse or other home services: No Alcohol intake: never Patient Tobacco Use Status: Current everyday Tobacco user Tobacco use type: Cigarette Cigarette Packs Per Day: 1 Cigarettes Per Day: 20.0 Years Smoked: 20 e-Cigarette/Vaping Use: Never Used Second Hand Smoke Exposure: No Substance Use Type: Marijuana Advance Directives Date on File: 06/03/21 service: No Current occupational status: disabled Cognitive needs: No Hearing needs: No Vision needs: No Meds Allergies Allergy/AdvReac Type Severity Reaction Status Date / Time amoxicillin Allergy Unknown rash Verified 05/18/23 13:17 cefaclor [From Ceclor] Allergy Unknown RASH Verified 05/18/23 13:17 cephalexin Allergy Unknown rash Verified 05/18/23 13:17 Cephalosporins Allergy Unknown RASH ALL Verified 05/18/23 13:17 [CEPHALOSPORINS] OVER cephradine [From VELOSEF] Allergy Unknown RASH Verified 05/18/23 13:17 Penicillins [PENICILLINS] Allergy Unknown RASH Verified 05/18/23 13:17 gabapentin [GABAPENTIN] AdvReac Unknown RESTLESS Verified 05/18/23 13:17 LEGS, Body becomes very uncomfortable Active Medications: Current Medications Albuterol Sulfate (Albuterol Sulfate 90 Mcg 8 Gm Inhaler) 1 puff INHALE QID PRN PRN Reason: Wheezing Atorvastatin Calcium (Atorvastatin Calcium 80 Mg Tablet) 80 mg PO BEDTIME [facility] Last Admin: 06/10/23 21:44 Dose: 80 mg Carvedilol (Carvedilol 25 Mg Tablet) 25 mg PO BID [facility]; Protocol Clopidogrel Bisulfate (Clopidogrel Bisulfate 75 Mg Tablet) 75 mg PO DAILY [facility] Dextrose (Dextrose 50 % 25 Gm/50 Ml Syringe) 25 gm IVPUSH Q15M PRN; Protocol PRN Reason: per Hypoglycemia Standing Ord. Glucose (Glucose Gel 15 Gm Gel..Gram.) 15 gm PO Q15M PRN; Protocol PRN Reason: per Hypoglycemia Standing Ord. Hydralazine HCl (Hydralazine Hcl 50 Mg Tablet) 50 mg PO TID [facility]; Protocol Sodium Chloride (Ns) 1,000 mls @ 150 mls/hr IV .Q6H40M [facility] Stop: 06/11/23 19:24 Insulin Glargine (Insulin Glargine,Hum.Rec.Anlog 100 Unit/Ml 10 Ml Vial) 25 unit SUBCUT BEDTIME [facility] Last Admin: 06/10/23 21:46 Dose: 25 unit Insulin Human Lispro (Insulin Lispro 100 Unit/Ml 3 Ml Vial) 0 unit SUBCUT QIDACHS [facility]; Protocol Last Admin: 06/11/23 11:52 Dose: 2 unit Nicotine (Nicotine 21 Mg Patch.Td24) 21 mg TRANSDERMA DAILY [facility] Last Admin: 06/11/23 07:54 Dose: 21 mg Nifedipine (Nifedipine Er 90 Mg Tab.Er.24) 90 mg PO BID [facility]; Protocol Last Admin: 06/11/23 07:53 Dose: 90 mg Omeprazole (Omeprazole 20 Mg Capsule.Dr) 20 mg PO DAILY PRN PRN Reason: heartburn Last Admin: 06/07/23 22:15 Dose: 20 mg Ondansetron HCl (Ondansetron Hcl 4 Mg/2 Ml Vial) 4 mg IVPUSH Q4H PRN PRN Reason: nausea Last Admin: 06/11/23 00:22 Dose: 4 mg Sodium Chloride (0.9 % Sodium Chloride Flush 3 Ml Syringe) 3 ml IVFLUSH QSHIFT [facility] Last Admin: 06/11/23 07:54 Dose: 3 ml Torsemide (Torsemide 20 Mg Tablet) 40 mg PO BID PRN; Protocol PRN Reason: Edema Last Admin: 06/09/23 09:32 Dose: 40 mg Home Medications Medication Instructions Recorded Confirmed Last Taken Type carvedilol 25 mg tablet 50 mg PO BID 03/20/22 06/07/23 09/07/22 History nifedipine 90 mg tablet,extended 1 tab PO BID 04/22/22 06/07/23 09/07/22 History release 24 hr dulaglutide 1.5 mg/0.5 mL 1.5 mg subcut TH 05/28/22 06/07/23 10/09/22 History subcutaneous pen injector (Trulicity) torsemide 20 mg tablet 2 tab PO BID PRN Edema 05/28/22 06/07/23 09/07/22 History sacubitril 97 mg-valsartan 103 mg 1 tab PO BID 08/20/22 06/07/23 09/07/22 History tablet (Entresto) spironolactone 100 mg tablet 100 mg PO DAILY 05/18/23 06/07/23 Unknown History omeprazole 20 mg capsule,delayed 20 mg PO QAM PRN heartburn 06/07/23 06/07/23 Unknown History release Physical Exam Vital Signs: Vital Signs: Last Vital Signs Temp 97.7 F 06/11/23 11:58 Pulse 62 06/11/23 11:58 Resp 20 06/11/23 11:58 BP 119/63 06/11/23 14:28 Pulse Ox 95 06/11/23 11:58 O2 Del Method Room Air 06/11/23 11:58 BMI result Body Mass Index 33.9 Const: Other: Awake alert no acute distress General: comfortable and no acute distress Orientation/consciousness: patient oriented x3 HEENT: Other: Unremarkable Head: Yes normal to inspection Neck: Neck: Yes normal visual inspection Chest: Chest palpation & inspection: normal inspection of the chest Resp: Other: Clear to auscultation bilaterally no rales rhonchi or wheezes Auscultation: diminished lung sounds Cardio: Other: No S4; positive S1-S2; no S3 murmurs rubs or gallops Palpation: normal PMI Heart sounds: S1 normal heart sound present, S2 normal heart sound present, no gallops, no murmurs and no rubs GI: Other: Soft nontender nondistended normoactive bowel sounds Palpation (GI): Soft to palpation Back/Spine/Pelvis: Other: unremarkable Skin: General skin exam: no rashes or lesions noted Neuro: Other: She's alert, oriented, with normal intellectual functions. She has no vision in the right and only finger counting at 18 inches on the left. Visual mary could not be adequately tested. Extraocular moments are full. Muscle tone and strength are normal in all 4 extremities. Reflexes symmetrical and 1-2+ plantars months are flexor General: patient oriented x3 Extrem: Other: Pitting edema bilaterally General: Yes normal to inspection Psych: Mental Status: mental status grossly normal Results Labs 06/08/23 05:20 06/11/23 08:22 Labs: BMP 06/11/23 08:22 Sodium 131 L Potassium 5.1 Chloride 97 Carbon Dioxide 23 BUN 61 H Creatinine 5.42 H* Calcium 7.6 L D Assessment and Plan (1) NSTEMI (non-ST elevated myocardial infarction): Status: Acute (2) HTN (hypertension): Status: Acute (3) White matter disease: Status: Acute She has extensive white matter disease and that was first picked up in April after she was evaluated in the office in her current MRIs unchanged. The etiology is unclear. Diagnostic possibilities include chronic MS and, less likely vasculitis or ischemic microvascular disease but mid the periventriccular involvement being very prominent as well as involvement of the corpus callosum. MS seems more likely. She's also had sudden loss of vision in the eyes, which would go along with optic neuritis. I have personally reviewed her MRI films and her lab data Recommendation: Spinal fluid studies to include spinal CSF immunofixation, oligoclonal bands, as well as protein, glucose and cell count. I would recommend IV Solu-Medrol 1 g a day for 3 days. Plan 43-year-old female with past medical history significant for essential hypertension, CKD on transplant list who presented complaining of chest pain that was radiating to right arm began earlier this morning. She states his pain was accompanied with nausea and vomiting it was self limiting. Upon transport, EMS found her blood pressure to be 240 for which she received a nitro with improvement in her pressure and her chest pain. Upon arrival to the emergency room she was essentially started on her current medicines and admission was requested Hypertensive unconrtolled -now slowly trending down Pressures have been better control however not at goal. Seen by renal and recommendations noted. hold hydralazine to 100 mg t.i.d., nitro paste to patch,procardia, give iv fluids ,continue coreg cut down to half dosing ( keep coreg if bp 120's, avoid use below 120 mmhg) in addition added IV NS considering boderline bp and jared. nephrology followup. Nstemi: will change asa to plavix , statin, completed 48 heparin (on 06/09/23) no chest pain Echocardiography has not shown any wall motion abnormality but did show significant left ventricular hypertrophy. cardio-recomended to continue above. jared on CKD stage III B renal function progressively worsening,added ivf. follow renals/divalents DMII Patient follows with Endocrine (Dr. John). States has not started any therapies at this time. Is following her sugars x1 month and will follow up with him to decide at that time. At this time will treat conservatively -lispro correctional scale -ADA diet -adjust as indicated. Patient was complaining complained of intermittent right eye changes yesterday that have improved with the addition of nitroglycerin. vision chnages similar changes on the left eye: She said she was seen by fiscal clerk and has b/l procedures outpatient Exam on both temporal-no tenderness on palpation,ESR/crp are normal(06/10/23), eye exam/pressure seems fine (please see my 06/10/23 note) d/w Ophthalmology Dr Murrieta also (06/10/23)-currently recommended for blood pressure and diabetes control , and patient will need to follow-up with her own fiscal clerk outpatient. in addition d/w neurology ct head shows ch stroke changes -added mri:Again there is relatively extensive chronic white matter disease with a periventricular predominant distribution. There is also chronic disease involving the basal ganglia, thalami, and conchita. One of the callosal lesions located within the central portion of the genu. 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 added neurology eval-patient ESR and CRP normal , anticardiolipin antibody IgG and IgM negative,protein C activity normal,protein C antigen pending Full code Lovenox Patient will require ongoing hospitalization for jared ,diabteic and bp control- moniter bp/dm ,vision changes, also close monitoring for renal function and electrolytes.nephro expert follow up. Procedures Date of Service Date of Service: 06/11/23
[2023-06-11 16:06] LABS: Glucose, Whole Blood 292 mg/dL (60-115)
[2023-06-11] MEDS: 0.9 % Sodium Chloride 1,000 ML 150 ML IV (16:15)
[2023-06-11] MEDS: oxyCODONE HCl Immed Release 5 MG TABLET PO (17:42)
[2023-06-11 19:55] LABS: Glucose, Whole Blood 310 mg/dL (60-115)
[2023-06-11] MEDS: methylPREDNISolone Sod Succ 1,000 MG in 0.9 % Sodium Chloride 50 ML 66 MG IV (20:42)
[2023-06-11] MEDS: Insulin Glargine,Hum.rec.anlog 100 UNIT/ML 10 ML VIAL 25 UNIT SUBCUT (20:42)
[2023-06-11] MEDS: Atorvastatin Calcium 80 MG TABLET PO (20:43)
[2023-06-11] MEDS: Acetaminophen 325 MG TABLET 650 MG PO (20:43)
[2023-06-11] MEDS: hydrALAZINE HCl 50 MG TABLET PO (20:45)
[2023-06-11] MEDS: carvediloL 25 MG TABLET PO (20:45)
[2023-06-12] MEDS: Morphine Sulfate 4 MG/ML CARTRIDGE IVPUSH (00:15)
[2023-06-12] MEDS: 0.9 % Sodium Chloride Flush 3 ML SYRINGE IVFLUSH ×3 (00:16→19:55)
[2023-06-12] MEDS: ondansetron HCL 4 MG/2 ML VIAL IVPUSH (00:18)
[2023-06-12 04:00] VITALS: BP 160/86; PULSE 78; RESP 18; TEMP 36.2; O2SAT 96
[2023-06-12] MEDS: Acetaminophen 325 MG TABLET 650 MG PO (05:33)
[2023-06-12 06:10] LABS: Hematocrit 29.3 % (37.0-47.0); Hemoglobin 10.1 g/dl (12.0-16.0); Mean Corpuscular HGB Conc 34.5 g/dl (31.0-35.0); Mean Corpuscular Hemoglobin 32.5 pg (27.0-33.0); Mean Corpuscular Volume 94.2 fL (80.0-98.0); Mean Platelet Volume 9.3 fL (9.4-12.3); Platelet Count 427 X10*3/uL (160-400); Red Blood Count 3.11 X10*6/uL (4.20-5.50); Red Cell Distribution Width 15.5 % (11.0-16.0)
[2023-06-12 07:28] LABS: Glucose, Whole Blood 376 mg/dL (60-115)
[2023-06-12 07:37] VITALS: BP 142/66; PULSE 86; RESP 20; TEMP 36.4; O2SAT 94
[2023-06-12] MEDS: carvediloL 25 MG TABLET PO ×2 (07:45→19:54)
[2023-06-12] MEDS: Clopidogrel Bisulfate 75 MG TABLET PO (07:45)
[2023-06-12] MEDS: Nicotine 21 MG PATCH.TD24 TRANSDERMA (07:46)
[2023-06-12] MEDS: Insulin Lispro 100 UNIT/ML 3 ML VIAL SUBCUT ×3 (07:46→17:00)
[2023-06-12 09:12] LABS: Partial Thromboplastin Time 28.2 SEC (26.0-36.8)
--- NOTE | 2023-06-12 10:07 | PM.PNCARD ---
Subjective Subjective Date of Service: 06/12/23 Interval history: Seen and examined at bedside. Frustrated because she had significant change in vision in the left eye. She had poor vision in the right eye and has seen a retina specialist with unknown diagnosis. She had MRI performed and is being seen by Neurology with some concern about multiple sclerosis. Physical Exam Vital Signs: Last Vital Signs Temp 97.6 F 06/12/23 07:37 Pulse 86 06/12/23 07:37 Resp 20 06/12/23 07:37 BP 142/66 H 06/12/23 07:37 Pulse Ox 94 06/12/23 07:37 O2 Del Method Room Air 06/12/23 07:37 BMI result Body Mass Index 33.9 GENERAL APPEARANCE: Emotional and distressed. NECK: no carotid bruit, no jugular venous distention. SKIN: no suspicious lesions, warm and dry. HEART: Systolic murmur aortic area, regular rate and rhythm. LUNGS: clear to auscultation bilaterally. ABDOMEN: soft, nontender. EXTREMITIES: No edema. PERIPHERAL PULSES: equal. Objective Labs and Meds 06/12/23 05:39 06/11/23 08:22 Lab results: Laboratory Results - last 24 hr 06/08/23 06/11/23 06/11/23 18:03 11:32 16:03 WBC RBC Hgb Hct MCV MCH MCHC RDW Plt Count MPV Absolute Nucleated RBC Nucleated RBC % (auto) APTT Protein C Antigen TNP POC Glucose 188 H 292 H 06/11/23 06/12/23 06/12/23 19:51 05:39 07:24 WBC 12.0 H RBC 3.11 L Hgb 10.1 L Hct 29.3 L MCV 94.2 MCH 32.5 MCHC 34.5 RDW 15.5 Plt Count 427 H MPV 9.3 L Absolute Nucleated RBC 0.000 Nucleated RBC % (auto) 0.0 APTT Protein C Antigen POC Glucose 310 H 376 H* 06/12/23 08:48 WBC RBC Hgb Hct MCV MCH MCHC RDW Plt Count MPV Absolute Nucleated RBC Nucleated RBC % (auto) APTT 28.2 Protein C Antigen POC Glucose Progress Note: A&P Assessment and plan (1) Malignant hypertension: Status: Acute (2) NSTEMI (non-ST elevated myocardial infarction): Status: Acute Plan 43-year-old female with advanced CKD who presented with chest pain in setting of significantly elevated blood pressure. She ruled in for NSTEMI. She was conservatively treated given advanced kidney issues with worsening kidney function. She has been on Plavix at this stage and aspirin has been stopped. Creatinine has worsened over the last few days and nephrology is closely following her. She also started developing changes in her vision and left eye which was her good eye also has significant visual loss. She is quite concerned and distressed by that. Neurology has seen her and there is question about multiple sclerosis and she is getting high dose steroids at this stage. Blood pressure control has been reasonable at this point. Does not require further cardiovascular workup but definitely has significant other issues going on. She is quite concerned because she has young child at home. We will be available if any cardiovascular issues arise. Thank you for allowing me to participate in the care of your patient. Please feel free to contact me if you have any questions. Time Spent With Patient Time: Total time managing care of this patient today ____ minutes. Progress Note: Quality Stroke Does the patient have a stroke diagnosis?: No Procedures Date of Service Date of Service: 06/12/23
[2023-06-12] MEDS: Insulin Glargine,Hum.rec.anlog 100 UNIT/ML 10 ML VIAL 10 UNIT SUBCUT (10:22)
--- NOTE | 2023-06-12 10:23 | MHC.CM.PN ---
Per ROUNDS discussion, Patient is not yet medically cleared for dc (Kidney Failure, IV Solu Medrol); Home with new [facility] is the goal and CM will continue to follow.
[2023-06-12 11:01] LABS: Anion Gap 16 (12-20); Blood Urea Nitrogen 68 mg/dL (9-16); Calcium 7.2 mg/dL (8.4-10.2); Carbon Dioxide 21 mmol/L (22-29); Chloride 96 mmol/L (96-108); Estimated Glomerular Filt Rate 8; Glucose Random 313 mg/dL (60-115); Potassium 5.3 mmol/L (3.3-5.1); Sodium 128 mmol/L (135-145)
[2023-06-12 11:17] LABS: Glucose, Whole Blood 452 mg/dL (60-115)
[2023-06-12 11:21] VITALS: BP 173/85; PULSE 94; RESP 20; TEMP 36.8; O2SAT 98
[2023-06-12 11:35] LABS: Appearance Urine Clear; Color Urine Yellow; Glucose Urine UA >=1000 mg/dL (Negative); Leukocyte Esterase Urine Negative (Negative); Nitrite Urine Negative (Negative); Specific Gravity - Urine 1.015 (1.005-1.025); UMIC TRIGGER UA YES; Urine Blood Negative (Negative); Urine Ketones Negative (Negative); Urine Protein 100 (2+) mg/dL (Neg-Trace)
[2023-06-12 11:38] LABS: Bacteria Urine 2+ (None Seen); Hyaline Casts Urine 0-2 /LPF (0-2); RBC Urine 0-2 /HPF (0-2); Squamous Epithelial Cell Urine 0-2 /HPF (0-2); WBC Urine 0-5 /HPF (0-5)
[2023-06-12 11:52] LABS: Creatinine Urine 73.69 mg/dL; Sodium Urine Random < 20.0 mmol/L; Total Protein Urine Random 88 mg/dL (<12)
[2023-06-12] MEDS: hydrALAZINE HCl 50 MG TABLET PO ×2 (11:57→19:54)
--- NOTE | 2023-06-12 12:34 | PC.NURSE ---
pt straight cathed to obtain urine specimen. 300mLs drained from bladder. Pt tolerated well
[2023-06-12] MEDS: Sodium Zirconium Cyclosilicate 5 GM POWD.PACK PO ×2 (12:48→19:53)
[2023-06-12] MEDS: 0.9 % Sodium Chloride 1,000 ML 80 ML IVCONT (12:48)
[2023-06-12] MEDS: oxyCODONE HCl Immed Release 5 MG TABLET PO ×2 (12:59→19:54)
[2023-06-12 13:17] LABS: ABG Base Excess -3.5 mmol/L; ABG HCO3 19 mmol/L (22-26); ABG pCO2 30 mmHg (32-45); ABG pH 7.42 (7.35-7.45); ABG pO2 107 mmHg (83-108)
--- NOTE | 2023-06-12 13:34 | P.CONCC_ITS ---
History of Present Illness Data of Consult Service Date: 06/12/23 Primary Care Provider: Mauricio Nolasco, [facility]- HPI Reason for consult: Level of care 43-year-old lady with underlying CKD on transplant list,?SLE, bipolar, cardiomyopathy admitted on 06/07/2023 with hypertensive urgency and lower extremity edema. Hospital course complicated by acute kidney injury on chronic kidney disease and recurrent visual blurring with MRI suspicious for MS flare (or ? SLE cerebritis). Evaluated by Neurology and started on high-dose IV Solu- Medrol. Level of care evaluation requested on 06/12/2023. On my exam patient is alert and oriented, frustrated and irate, without specific complaint. Hemodynamics and respiratory status are normal. Review of Systems 2 Constitutional: Constitutional: Denies daytime sleepiness, Denies excessive sweating, Reports fatigue, Denies fever(s), Denies lethargy, Denies malaise, Denies night sweats, Denies snoring and Denies weight loss Eyes: Eyes: Reports blurry vision and Denies itchy eyes ENT: Denies nasal congestion, Denies post nasal drip, Denies sinus pain, Denies sinus pressure and Denies other ( Thrush) Cardiovascular: Cardiovascular: Denies chest pain, Denies pedal edema, Denies dyspnea, Denies orthopnea and Denies paroxysmal nocturnal dyspnea Respiratory: Respiratory: Denies cough, Denies hemoptysis, Denies excessive phlegm production, Denies dyspnea, Denies snoring and Denies wheezing Gastrointestinal: Gastrointestinal: Denies abdominal pain and Denies heartburn Musculoskeletal: Musculoskeletal: Denies myalgias, Denies arthralgias and Denies joint swelling Integumentary/Breasts: Skin/Breast: Denies rash Neurologic: Denies memory loss and Denies seizure-like activity Psychiatric: Psychiatric: Denies abnormal sleep pattern, Denies anxiety and Denies memory loss Endocrine: Endocrine: Denies excessive sweating, Reports fatigue and Denies heat intolerance Hematologic/Lymphatic: Hematologic/Lymphatic: Denies easy bruising Allergic/Immunologic: Allergic/Immunologic: Denies itchy eyes, Denies seasonal rhinorrhea and Denies wheezing PMFSH Past Medical History Medical History CKD (chronic kidney disease) Hypertensive retinopathy Macular edema Diabetic retinopathy CHF (congestive heart failure) Malignant hypertension Heart block AV second degree Hypersomnia Cardiomyopathy CKD (chronic kidney disease) stage 2, GFR 60-89 ml/min Nicotine dependence, cigarettes, uncomplicated (~1999) Eclampsia Fatty liver Heart failure, unspecified (~09/2020) History of DVT (deep vein thrombosis) Diabetes mellitus Migraines Sjogren's disease Lupus Rheumatoid arthritis High cholesterol Anxiety PTSD (post-traumatic stress disorder) Bipolar 1 disorder H/O mixed connective tissue disease HTN (hypertension) Family History Family History Father Substance use disorder Mental health disorder Brother Substance use disorder Mental health disorder Brother Substance use disorder Mental health disorder Other Diabetes HTN (hypertension) Surgical History Surgical History History of hysterectomy History of bronchoscopy (~11/2020) History of cholecystectomy (~05/2014) Social History Social History Household Members: Children Household Members Other:: 3 Housing: House Are you a primary out of school hours care worker to a significant other at home: No Do you presently have visiting nurse or other home services: No Alcohol intake: never Patient Tobacco Use Status: Current everyday Tobacco user Tobacco use type: Cigarette Cigarette Packs Per Day: 1 Cigarettes Per Day: 20.0 Years Smoked: 20 e-Cigarette/Vaping Use: Never Used Second Hand Smoke Exposure: No Substance Use Type: Marijuana Advance Directives Date on File: 06/03/21 service: No Current occupational status: disabled Cognitive needs: No Hearing needs: No Vision needs: No Meds Allergies Allergy/AdvReac Type Severity Reaction Status Date / Time amoxicillin Allergy Unknown rash Verified 05/18/23 13:17 cefaclor [From Ceclor] Allergy Unknown RASH Verified 05/18/23 13:17 cephalexin Allergy Unknown rash Verified 05/18/23 13:17 Cephalosporins Allergy Unknown RASH ALL Verified 05/18/23 13:17 [CEPHALOSPORINS] OVER cephradine [From VELOSEF] Allergy Unknown RASH Verified 05/18/23 13:17 Penicillins [PENICILLINS] Allergy Unknown RASH Verified 05/18/23 13:17 gabapentin [GABAPENTIN] AdvReac Unknown RESTLESS Verified 05/18/23 13:17 LEGS, Body becomes very uncomfortable Active Medications: Current Medications Acetaminophen (Acetaminophen 325 Mg Tablet) 650 mg PO Q6H PRN PRN Reason: Pain, Mild (Pain Scale 1-3) Last Admin: 06/12/23 05:33 Dose: 650 mg Albuterol Sulfate (Albuterol Sulfate 90 Mcg 8 Gm Inhaler) 1 puff INHALE QID PRN PRN Reason: Wheezing Atorvastatin Calcium (Atorvastatin Calcium 80 Mg Tablet) 80 mg PO BEDTIME [facility] Last Admin: 06/11/23 20:43 Dose: 80 mg Carvedilol (Carvedilol 25 Mg Tablet) 25 mg PO BID [facility]; Protocol Last Admin: 06/12/23 07:45 Dose: 25 mg Dextrose (Dextrose 50 % 25 Gm/50 Ml Syringe) 25 gm IVPUSH Q15M PRN; Protocol PRN Reason: per Hypoglycemia Standing Ord. Glucose (Glucose Gel 15 Gm Gel..Gram.) 15 gm PO Q15M PRN; Protocol PRN Reason: per Hypoglycemia Standing Ord. Hydralazine HCl (Hydralazine Hcl 50 Mg Tablet) 50 mg PO TID [facility]; Protocol Last Admin: 06/12/23 11:57 Dose: 50 mg Methylprednisolone Sodium Succinate 1,000 mg/ Sodium Chloride 66 mls @ 66 mls/hr IV DAILY@2100 [facility] Stop: 06/14/23 20:59 Last Infusion: 06/11/23 21:40 Dose: Infused Sodium Chloride (Ns) 1,000 mls @ 80 mls/hr IVCONT .[id number] [facility] Last Admin: 06/12/23 12:48 Dose: 80 mls/hr Insulin Glargine (Insulin Glargine,Hum.Rec.Anlog 100 Unit/Ml 10 Ml Vial) 25 unit SUBCUT BEDTIME [facility] Last Admin: 06/11/23 20:42 Dose: 25 unit Insulin Glargine (Insulin Glargine,Hum.Rec.Anlog 100 Unit/Ml 10 Ml Vial) 20 unit SUBCUT DAILY [facility] Insulin Human Lispro (Insulin Lispro 100 Unit/Ml 3 Ml Vial) 0 unit SUBCUT QIDACHS [facility]; Protocol Last Admin: 06/12/23 11:57 Dose: 14 unit Nicotine (Nicotine 21 Mg Patch.Td24) 21 mg TRANSDERMA DAILY [facility] Last Admin: 06/12/23 07:46 Dose: 21 mg Nifedipine (Nifedipine Er 90 Mg Tab.Er.24) 90 mg PO BID [facility]; Protocol Last Admin: 06/11/23 07:53 Dose: 90 mg Omeprazole (Omeprazole 20 Mg Capsule.Dr) 20 mg PO DAILY PRN PRN Reason: heartburn Last Admin: 06/07/23 22:15 Dose: 20 mg Ondansetron HCl (Ondansetron Hcl 4 Mg/2 Ml Vial) 4 mg IVPUSH Q4H PRN PRN Reason: nausea Last Admin: 06/12/23 00:18 Dose: 4 mg Oxycodone HCl (Oxycodone Hcl Immed Release 5 Mg Tablet) 5 mg PO Q6H PRN PRN Reason: Pain, Mild (Pain Scale 1-3) Last Admin: 06/12/23 12:59 Dose: 5 mg Sodium Chloride (0.9 % Sodium Chloride Flush 3 Ml Syringe) 3 ml IVFLUSH [facility] Last Admin: 06/12/23 07:55 Dose: 3 ml Torsemide (Torsemide 20 Mg Tablet) 40 mg PO BID PRN; Protocol PRN Reason: Edema Last Admin: 06/09/23 09:32 Dose: 40 mg Home Medications Medication Instructions Recorded Confirmed Last Taken Type carvedilol 25 mg tablet 50 mg PO BID 03/20/22 06/07/23 09/07/22 History nifedipine 90 mg tablet,extended 1 tab PO BID 04/22/22 06/07/23 09/07/22 History release 24 hr dulaglutide 1.5 mg/0.5 mL 1.5 mg subcut TH 05/28/22 06/07/23 10/09/22 History subcutaneous pen injector (Trulicity) torsemide 20 mg tablet 2 tab PO BID PRN Edema 05/28/22 06/07/23 09/07/22 History sacubitril 97 mg-valsartan 103 mg 1 tab PO BID 08/20/22 06/07/23 09/07/22 History tablet (Entresto) spironolactone 100 mg tablet 100 mg PO DAILY 05/18/23 06/07/23 Unknown History omeprazole 20 mg capsule,delayed 20 mg PO QAM PRN heartburn 06/07/23 06/07/23 Unknown History release Physical Exam 2 Vital Signs: Vital Signs: Last Vital Signs Temp 98.3 F 06/12/23 11:21 Pulse 94 06/12/23 11:21 Resp 20 06/12/23 11:21 BP 173/85 H 06/12/23 11:21 Pulse Ox 98 06/12/23 11:21 O2 Del Method Room Air 06/12/23 11:21 BMI result Body Mass Index 33.9 Const: General: no acute distress and alert Nutritional Appearance: obese Orientation/consciousness: Other orientation findings ( oriented) HEENT: Head: Yes atraumatic Eyes: General: appearance normal, both eyes and all related structures S clerae: sclerae normal EOM: EOMs intact bilaterally Neck: Neck: Yes supple Lymphatic: no lymphadenopathy noted Resp: Effort & Inspection: normal respiratory effort and no use of accessory muscles Auscultation: clear to auscultation bilaterally Cardio: Rate: regular rate Rhythm: regular rhythm Heart sounds: no gallops, no murmurs and no rubs Skin: General skin exam: other ( warm) Extrem: General: No clubbing, No cyanosis and No edema Results Labs 06/12/23 05:39 06/12/23 05:57 Labs: Short CBC 06/12/23 Range/Units 05:39 WBC 12.0 H (4.8-10.8) X10*3/uL Hgb 10.1 L (12.0-16.0) g/dl Hct 29.3 L (37.0-47.0) % Plt Count 427 H (160-400) X10*3/uL BMP 06/12/23 05:57 Sodium 128 L Potassium 5.3 H Chloride 96 Carbon Dioxide 21 L BUN 68 H Creatinine 5.93 H* Calcium 7.2 L Urine 06/12/23 Range/Units 11:24 Urine Color Yellow Urine Appearance Clear Urine pH 6.0 (5.0-9.0) Ur Specific Distant 1.015 (1.005-1.025) Urine Protein 100 (2+) H (Neg-Trace) mg/dL Urine Glucose (UA) >=1000 H (Negative) mg/dL Assessment and Plan (1) Metabolic acidosis: Status: Acute (2) White matter disease: Status: Acute (3) Acute kidney injury superimposed on CKD: Status: Acute Plan Impression: 43-year-old lady with underlying CKD admitted with hypertensive urgency further complicated by changes in wheezing and acute on chronic renal disease now on high-dose steroids for suspicion of immunologic issues rheumatologic process. Recommendations: Agree with high-dose Solu-Medrol. Metabolic acidosis with normal pH inappropriate respiratory compensation. Hemodynamics and respiratory status are normal. At this time does not require intensive care unit level of care. Please notify for re-evaluation, if patient's condition changes. Discussed with Dr. Travis.
[2023-06-12 13:58] LABS: Albumin Level 3.6 g/dL (3.5-5.0); Anion Gap 16 (12-20); Blood Urea Nitrogen 70 mg/dL (9-16); Calcium 7.3 mg/dL (8.4-10.2); Carbon Dioxide 23 mmol/L (22-29); Chloride 94 mmol/L (96-108); Creatinine Clr Calc Pharmacy 14.5; Estimated Glomerular Filt Rate 7; Glucose Random 404 mg/dL (60-115); Magnesium 1.8 mg/dL (1.6-2.6); Phosphorus 5.6 mg/dL (2.7-4.5); Potassium 5.6 mmol/L (3.3-5.1); Sodium 127 mmol/L (135-145)
--- NOTE | 2023-06-12 14:01 | PM.PNNEP ---
Subjective Subjective Date of Service: 06/12/23 Interval history: worsening renal function,fluctuating bp. Consult for Uncontrolled hypertension, CKD / MAYURI Physical Exam Vital Signs: Vital Signs: Last Vital Signs Temp 98.3 F 06/12/23 11:21 Pulse 94 06/12/23 11:21 Resp 20 06/12/23 11:21 BP 173/85 H 06/12/23 11:21 Pulse Ox 98 06/12/23 11:21 O2 Del Method Room Air 06/12/23 11:21 BMI result Body Mass Index 33.9 Const: General: cooperative and no acute distress Resp: Effort & Inspection: normal respiratory effort Auscultation: no crackles and no wheezes Cardio: Rate: regular rate Rhythm: regular rhythm Heart sounds: S1 S2 normal heart sound present GI: Auscultation: normal bowel sounds Extremities: no pedal edema Objective Data Labs 06/12/23 05:39 06/12/23 13:22 Labs: Laboratory Results - last 24 hr 06/08/23 06/11/23 06/11/23 18:03 16:03 19:51 WBC RBC Hgb Hct MCV MCH MCHC RDW Plt Count MPV Absolute Nucleated RBC Nucleated RBC % (auto) APTT Protein C Antigen TNP O2 Saturation ABG pH at Pt Temp ABG pCO2 at Pt Temp ABG pO2 at Pt Temp ABG HCO3 ABG Base Excess (Actual) Sodium Potassium Chloride Carbon Dioxide Anion Gap BUN Creatinine Estim Creat Clear Calc Estimated GFR POC Glucose 292 H 310 H Random Glucose Calcium Phosphorus Magnesium Albumin Urine Color Urine Appearance Urine pH Ur Specific [place] Urine Protein Urine Glucose (UA) Urine Ketones Urine Blood Urine Nitrite Ur Leukocyte Esterase Urine RBC Urine WBC Ur Squamous Epith Cells Urine Bacteria Hyaline Casts U Random Total Protein Ur Random Sodium Urine Creatinine 06/12/23 06/12/23 06/12/23 05:39 05:57 07:24 WBC 12.0 H RBC 3.11 L Hgb 10.1 L Hct 29.3 L MCV 94.2 MCH 32.5 MCHC 34.5 RDW 15.5 Plt Count 427 H MPV 9.3 L Absolute Nucleated RBC 0.000 Nucleated RBC % (auto) 0.0 APTT Protein C Antigen O2 Saturation ABG pH at Pt Temp ABG pCO2 at Pt Temp ABG pO2 at Pt Temp ABG HCO3 ABG Base Excess (Actual) Sodium 128 L Potassium 5.3 H Chloride 96 Carbon Dioxide 21 L Anion Gap 16 BUN 68 H Creatinine 5.93 H* Estim Creat Clear Calc 15.0 Estimated GFR 8 POC Glucose 376 H* Random Glucose 313 H Calcium 7.2 L Phosphorus Magnesium Albumin Urine Color Urine Appearance Urine pH Ur Specific [place] Urine Protein Urine Glucose (UA) Urine Ketones Urine Blood Urine Nitrite Ur Leukocyte Esterase Urine RBC Urine WBC Ur Squamous Epith Cells Urine Bacteria Hyaline Casts U Random Total Protein Ur Random Sodium Urine Creatinine 06/12/23 06/12/23 06/12/23 08:48 11:07 11:24 WBC RBC Hgb Hct MCV MCH MCHC RDW Plt Count MPV Absolute Nucleated RBC Nucleated RBC % (auto) APTT 28.2 Protein C Antigen O2 Saturation ABG pH at Pt Temp ABG pCO2 at Pt Temp ABG pO2 at Pt Temp ABG HCO3 ABG Base Excess (Actual) Sodium Potassium Chloride Carbon Dioxide Anion Gap BUN Creatinine Estim Creat Clear Calc Estimated GFR POC Glucose 452 H* Random Glucose Calcium Phosphorus Magnesium Albumin Urine Color Yellow Urine Appearance Clear Urine pH 6.0 Ur Specific [place] 1.015 Urine Protein 100 (2+) H Urine Glucose (UA) >=1000 H Urine Ketones Negative Urine Blood Negative Urine Nitrite Negative Ur Leukocyte Esterase Negative Urine RBC 0-2 Urine WBC 0-5 Ur Squamous Epith Cells 0-2 Urine Bacteria 2+ Hyaline Casts 0-2 U Random Total Protein 88 H Ur Random Sodium < 20.0 Urine Creatinine 73.69 06/12/23 06/12/23 13:11 13:22 WBC RBC Hgb Hct MCV MCH MCHC RDW Plt Count MPV Absolute Nucleated RBC Nucleated RBC % (auto) APTT Protein C Antigen O2 Saturation 100.0 ABG pH at Pt Temp 7.42 ABG pCO2 at Pt Temp 30 L ABG pO2 at Pt Temp 107 ABG HCO3 19 L ABG Base Excess (Actual) -3.5 Sodium 127 L Potassium 5.6 H Chloride 94 L Carbon Dioxide 23 Anion Gap 16 BUN 70 H Creatinine 6.16 H* Estim Creat Clear Calc 14.5 Estimated GFR 7 POC Glucose Random Glucose 404 H* Calcium 7.3 L Phosphorus 5.6 H Magnesium 1.8 Albumin 3.6 Urine Color Urine Appearance Urine pH Ur Specific [place] Urine Protein Urine Glucose (UA) Urine Ketones Urine Blood Urine Nitrite Ur Leukocyte Esterase Urine RBC Urine WBC Ur Squamous Epith Cells Urine Bacteria Hyaline Casts U Random Total Protein Ur Random Sodium Urine Creatinine Procedures Date of Service Date of Service: 06/12/23 Assessment & Plan Assessment and plan (1) CKD (chronic kidney disease): Status: Acute Plan Assessment and plan (1) Acute kidney injury superimposed on CKD: Status: Acute (2) Malignant hypertension: Status: Acute Plan 1. Acute kidney injury./ hyperkalemia Acute kidney injury in this patient likely secondary to severe renal hypoperfusion/acute tubular injury in the setting of acute coronary syndrome. multifactorial - prerenal. and renal hypoperfusion in the setting of Entresto. The patient had hypertensive emergency with likely nephron damage in the setting of uncontrolled hypertension. We ruled out obstruction. She is non oliguric. she had mandarin oranges at bedside, advised her to stop taking it due to high potassium 2. Chronic kidney disease, stage 4, which is progressively getting worse in the setting of longstanding hypertension/renovascular disease, diabetes. 3. Hypertensive emergency, but now fluctuating between low and high bps 4. Anemia of chronic disease. 5. Renal artery stenosis. 6. Acute coronary syndrome. 7. 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 she has visual deficits RECOMMENDATIONS: strict renal diet BP meds with hold parameters Lower Coreg to 12.5 BID IVF NS 80 ml / hr Lokelma 10gm po x1 dose and prn for K > 5.3 Repeat labs in AM F/u Urine output - There is no immediate indication for renal replacement therapy. Thank you for allowing me to participate in medical management of the patient. Time Spent With Patient Time: Total time managing care of this patient today ____ minutes. Progress Note: Quality Stroke Does the patient have a stroke diagnosis?: No
[2023-06-12 14:10] LABS: ABG Refer to POC result
[2023-06-12 15:39] LABS: Glucose, Whole Blood 276 mg/dL (60-115)
[2023-06-12 15:59] VITALS: BP 174/79; PULSE 84; RESP 17; TEMP 36.6; O2SAT 93
--- NOTE | 2023-06-12 16:43 | P.PNIM_ITS ---
Subjective Subjective Date of Service: 06/12/23 Interval History: worsening renal function,hyperkalemia,boderline bp. Review of Systems visual blurriess similar no nausea or vomiting or fever s no abd pain Physical Exam 2 Vital Signs: Vital Signs: Last Vital Signs Temp 97.9 F 06/12/23 15:59 Pulse 84 06/12/23 15:59 Resp 17 06/12/23 15:59 BP 174/79 H 06/12/23 15:59 Pulse Ox 93 06/12/23 15:59 O2 Del Method Room Air 06/12/23 15:59 BMI result Body Mass Index 33.9 Appearance: Alert.? Oriented X3.?tired cvs: rrr, [id number] . res: clear to auscultation ,no rhonchii or wheezing abd: no rebound or guarding ,nt, bs present. ext pulses present , no cyanosis. neuro: axo3 , moves all ext Objective Data Active Medications Acetaminophen (Acetaminophen 325 Mg Tablet) 650 mg PO Q6H PRN PRN Reason: Pain, Mild (Pain Scale 1-3) Last Admin: 06/12/23 05:33 Dose: 650 mg Documented By: MINNIE Albuterol Sulfate (Albuterol Sulfate 90 Mcg 8 Gm Inhaler) 1 puff INHALE QID PRN PRN Reason: Wheezing Atorvastatin Calcium (Atorvastatin Calcium 80 Mg Tablet) 80 mg PO BEDTIME [facility] Last Admin: 06/11/23 20:43 Dose: 80 mg Documented By: KELL Carvedilol (Carvedilol 25 Mg Tablet) 25 mg PO BID [facility]; Protocol Last Admin: 06/12/23 07:45 Dose: 25 mg Documented By: HUI Dextrose (Dextrose 50 % 25 Gm/50 Ml Syringe) 25 gm IVPUSH Q15M PRN; Protocol PRN Reason: per Hypoglycemia Standing Ord. Glucose (Glucose Gel 15 Gm Gel..Gram.) 15 gm PO Q15M PRN; Protocol PRN Reason: per Hypoglycemia Standing Ord. Hydralazine HCl (Hydralazine Hcl 50 Mg Tablet) 50 mg PO TID [facility]; Protocol Last Admin: 06/12/23 11:57 Dose: 50 mg Documented By: HUI Methylprednisolone Sodium Succinate 1,000 mg/ Sodium Chloride 66 mls @ 66 mls/hr IV DAILY@2100 [facility] Stop: 06/14/23 20:59 Last Infusion: 06/11/23 21:40 Dose: Infused Documented By: KELL Sodium Chloride (Ns) 1,000 mls @ 80 mls/hr IVCONT .[id number] [facility] Last Admin: 06/12/23 12:48 Dose: 80 mls/hr Documented By: HUI Insulin Glargine (Insulin Glargine,Hum.Rec.Anlog 100 Unit/Ml 10 Ml Vial) 25 unit SUBCUT BEDTIME [facility] Last Admin: 06/11/23 20:42 Dose: 25 unit Documented By: KELL Insulin Glargine (Insulin Glargine,Hum.Rec.Anlog 100 Unit/Ml 10 Ml Vial) 20 unit SUBCUT DAILY [facility] Insulin Human Lispro (Insulin Lispro 100 Unit/Ml 3 Ml Vial) 0 unit SUBCUT QIDACHS [facility]; Protocol Last Admin: 06/12/23 11:57 Dose: 14 unit Documented By: HUI Nicotine (Nicotine 21 Mg Patch.Td24) 21 mg TRANSDERMA DAILY [facility] Last Admin: 06/12/23 07:46 Dose: 21 mg Documented By: HUI Nifedipine (Nifedipine Er 90 Mg Tab.Er.24) 90 mg PO BID [facility]; Protocol Last Admin: 06/11/23 07:53 Dose: 90 mg Documented By: HUI Omeprazole (Omeprazole 20 Mg Capsule.Dr) 20 mg PO DAILY PRN PRN Reason: heartburn Last Admin: 06/07/23 22:15 Dose: 20 mg Documented By: TAMIA Ondansetron HCl (Ondansetron Hcl 4 Mg/2 Ml Vial) 4 mg IVPUSH Q4H PRN PRN Reason: nausea Last Admin: 06/12/23 00:18 Dose: 4 mg Documented By: MINNIE Oxycodone HCl (Oxycodone Hcl Immed Release 5 Mg Tablet) 5 mg PO Q6H PRN PRN Reason: Pain, Mild (Pain Scale 1-3) Last Admin: 06/12/23 12:59 Dose: 5 mg Documented By: HUI Sodium Chloride (0.9 % Sodium Chloride Flush 3 Ml Syringe) 3 ml IVFLUSH QSHIFT [facility] Last Admin: 06/12/23 07:55 Dose: 3 ml Documented By: HUI Torsemide (Torsemide 20 Mg Tablet) 40 mg PO BID PRN; Protocol PRN Reason: Edema Last Admin: 06/09/23 09:32 Dose: 40 mg Documented By: MERLINE Labs 06/12/23 05:39 06/12/23 13:22 Labs: Laboratory Results - last 24 hr 06/08/23 06/11/23 06/12/23 18:03 19:51 05:39 MCV 94.2 MCH 32.5 MCHC 34.5 RDW 15.5 Plt Count 427 H MPV 9.3 L Absolute Nucleated RBC 0.000 Nucleated RBC % (auto) 0.0 APTT Protein C Antigen TNP O2 Saturation ABG pH at Pt Temp ABG pCO2 at Pt Temp ABG pO2 at Pt Temp ABG HCO3 ABG Base Excess (Actual) Anion Gap Estim Creat Clear Calc Estimated GFR POC Glucose 310 H Random Glucose Calcium Phosphorus Magnesium Albumin Urine Color Urine Appearance Urine pH Ur Specific [place] Urine Protein Urine Glucose (UA) Urine Ketones Urine Blood Urine Nitrite Ur Leukocyte Esterase Urine RBC Urine WBC Ur Squamous Epith Cells Urine Bacteria Hyaline Casts U Random Total Protein Ur Random Sodium Urine Creatinine 06/12/23 06/12/23 06/12/23 05:57 07:24 08:48 MCV MCH MCHC RDW Plt Count MPV Absolute Nucleated RBC Nucleated RBC % (auto) APTT 28.2 Protein C Antigen O2 Saturation ABG pH at Pt Temp ABG pCO2 at Pt Temp ABG pO2 at Pt Temp ABG HCO3 ABG Base Excess (Actual) Anion Gap 16 Estim Creat Clear Calc 15.0 Estimated GFR 8 POC Glucose 376 H* Random Glucose 313 H Calcium 7.2 L Phosphorus Magnesium Albumin Urine Color Urine Appearance Urine pH Ur Specific [place] Urine Protein Urine Glucose (UA) Urine Ketones Urine Blood Urine Nitrite Ur Leukocyte Esterase Urine RBC Urine WBC Ur Squamous Epith Cells Urine Bacteria Hyaline Casts U Random Total Protein Ur Random Sodium Urine Creatinine 06/12/23 06/12/23 06/12/23 11:07 11:24 13:11 MCV MCH MCHC RDW Plt Count MPV Absolute Nucleated RBC Nucleated RBC % (auto) APTT Protein C Antigen O2 Saturation 100.0 ABG pH at Pt Temp 7.42 ABG pCO2 at Pt Temp 30 L ABG pO2 at Pt Temp 107 ABG HCO3 19 L ABG Base Excess (Actual) -3.5 Anion Gap Estim Creat Clear Calc Estimated GFR POC Glucose 452 H* Random Glucose Calcium Phosphorus Magnesium Albumin Urine Color Yellow Urine Appearance Clear Urine pH 6.0 Ur Specific [place] 1.015 Urine Protein 100 (2+) H Urine Glucose (UA) >=1000 H Urine Ketones Negative Urine Blood Negative Urine Nitrite Negative Ur Leukocyte Esterase Negative Urine RBC 0-2 Urine WBC 0-5 Ur Squamous Epith Cells 0-2 Urine Bacteria 2+ Hyaline Casts 0-2 U Random Total Protein 88 H Ur Random Sodium < 20.0 Urine Creatinine 73.69 06/12/23 06/12/23 13:22 15:30 MCV MCH MCHC RDW Plt Count MPV Absolute Nucleated RBC Nucleated RBC % (auto) APTT Protein C Antigen O2 Saturation ABG pH at Pt Temp ABG pCO2 at Pt Temp ABG pO2 at Pt Temp ABG HCO3 ABG Base Excess (Actual) Anion Gap 16 Estim Creat Clear Calc 14.5 Estimated GFR 7 POC Glucose 276 H Random Glucose 404 H* Calcium 7.3 L Phosphorus 5.6 H Magnesium 1.8 Albumin 3.6 Urine Color Urine Appearance Urine pH Ur Specific [place] Urine Protein Urine Glucose (UA) Urine Ketones Urine Blood Urine Nitrite Ur Leukocyte Esterase Urine RBC Urine WBC Ur Squamous Epith Cells Urine Bacteria Hyaline Casts U Random Total Protein Ur Random Sodium Urine Creatinine Assessment and Plan (1) White matter disease: Status: Acute (2) Metabolic acidosis: Status: Acute Plan 43-year-old female with past medical history significant for essential hypertension, CKD on transplant list who presented complaining of chest pain that was radiating to right arm began earlier this morning. She states his pain was accompanied with nausea and vomiting it was self limiting. Upon transport, EMS found her blood pressure to be 240 for which she received a nitro with improvement in her pressure and her chest pain. Upon arrival to the emergency room she was essentially started on her current medicines and admission was requested Hypertensive unconrtolled -bp flactuating difficult to control ,because of vast flactuation from 90mmhg to 170 range . renal us:Possible extrarenal pelvis versus mild fullness right renal collecting system.Borderline mild diffuse renal cortical thinning. No hydronephrosis. No renal calculi. Limited visualization. started back on coreg ,procardia with holding parameters ( sbp around 120 mmhg). Nstemi: will change asa to plavix(now on hold for 5 days due to need for LP) , statin, completed 48 heparin (on 06/09/23) no chest pain Echocardiography has not shown any wall motion abnormality but did show significant left ventricular hypertrophy. cardio-recomended to continue abve , hold plavix as above. jared on CKD stage III B(Acute kidney injury in this patient likely secondary to severe renal hypoperfusion/acute tubular injury in the setting of acute coronary syndrome. cr progressively worsening as well as hyperkalemia pseudohyponatremia sec to hyperglycemia added loklema 10 mg x2 renal function progressively worsening,ivf. follow renals/divalents DMII with hyperglycemia : dm diet chnage fs q4hr patient has more hyperglyecmia due to high dose steriods lantus and lispro correctional scale adjusted. eye changes : question multifactorial {has retinopathy(dm/htn)- seen by dr lokesh miguel last month } Exam on both temporal-no tenderness on palpation,ESR/crp are normal(06/10/23), eye exam/pressure seems fine (please see my 06/10/23 note) carotid dupplex: seems fine. spoke to Dr [place] (oph) on 06/10/23 -recomended need more dm /htn control ,follow up with her opthalomogist. d/w neurology ct head shows ch stroke changes mri:Again there is relatively extensive chronic white matter disease with a periventricular predominant distribution. There is also chronic disease involving the basal ganglia, thalami, and conchita. One of the callosal lesions located within the central portion of the genu. seen by neurology -patient ESR and CRP normal , anticardiolipin antibody IgG and IgM negative,protein C activity normal,protein C antigen pending, mri reviewed . as per neuro note: She has extensive white matter disease and that was first picked up in April after she was evaluated in the office in her current MRIs unchanged. The etiology is unclear. Diagnostic possibilities include chronic MS and, less likely vasculitis or ischemic microvascular disease but mid the periventriccular involvement being very prominent as well as involvement of the corpus callosum. MS seems more likely. She's also had sudden loss of vision in the eyes, which would go along with optic neuritis recomended -added iv solumedrol 1000 mg qdaily for 3 days also need more dm /htn control d/w nephro ,iCu ,also rheumatolgy,neurology-continue above management.also placed called for Dr Lokesh miguel (patient oph ). d/w ICU- continue current management , Metabolic acidosis with normal pH inappropriate respiratory compensation. Hemodynamics and respiratory status are normal. At this time does not require intensive care unit level of care. Please notify for re-evaluation, if patient's condition changes. Full code Lovenox Patient will require ongoing hospitalization for jared ,diabteic and bp control- moniter bp/dm ,vision changes, also close monitoring for renal function and electrolytes.nephro expert follow up. Quality Stroke Does the patient have a stroke diagnosis?: No VTE Prior VTE?: No VTE Risk Level:: Medical - moderate - high VTE Device Contraindication: Treatment Not Indicated VTE Drug Contraindication: N/A - Med Ordered
[2023-06-12] MEDS: Sodium Zirconium Cyclosilicate 10 GM POWD.PACK PO (17:01)
[2023-06-12 19:14] VITALS: BP 178/100; PULSE 90; RESP 19; TEMP 36.3; O2SAT 100
[2023-06-12 19:37] LABS: Glucose, Whole Blood 138 mg/dL (60-115)
[2023-06-12] MEDS: Atorvastatin Calcium 80 MG TABLET PO (19:54)
[2023-06-12] MEDS: NIFEdipine ER 90 MG TAB.ER.24 PO (19:54)
[2023-06-12] MEDS: Insulin Glargine,Hum.rec.anlog 100 UNIT/ML 10 ML VIAL 25 UNIT SUBCUT (19:54)
[2023-06-12 20:21] LABS: Anion Gap 16 (12-20); Blood Urea Nitrogen 74 mg/dL (9-16); Calcium 7.6 mg/dL (8.4-10.2); Carbon Dioxide 23 mmol/L (22-29); Chloride 97 mmol/L (96-108); Creatinine Clr Calc Pharmacy 15.6; Estimated Glomerular Filt Rate 8; Glucose Random 168 mg/dL (60-115); Potassium 5.1 mmol/L (3.3-5.1); Sodium 131 mmol/L (135-145)
[2023-06-12] MEDS: methylPREDNISolone Sod Succ 1,000 MG in 0.9 % Sodium Chloride 50 ML 66 MG IV (23:00)
[2023-06-12 23:57] VITALS: BP 157/81; PULSE 64; RESP 19; TEMP 36.4; O2SAT 96
[2023-06-13] VITALS (7 sets, daily range): BP systolic 138–180; BP diastolic 73–92; PULSE 74–84; RESP 16–20; TEMP 36.3–37; O2SAT 94–98
[2023-06-13 00:07] LABS: Glucose, Whole Blood 217 mg/dL (60-115)
[2023-06-13] MEDS: 0.9 % Sodium Chloride 1,000 ML 80 ML IVCONT ×2 (01:37→15:01)
[2023-06-13] MEDS: oxyCODONE HCl Immed Release 5 MG TABLET PO ×4 (02:14→21:04)
--- NOTE | 2023-06-13 07:49 | PM.PNNEP ---
Subjective Subjective Date of Service: 06/13/23 Interval history: Labs not drawn yet - ordered stat Pt on both IVF and Torsemide - stopped torsemide Lokelma ordered preemptively Expect solumedrol to raise BUN disproportionately. Still making urine 800cc Not great prognosis. Physical Exam Vital Signs: Vital Signs: Last Vital Signs Temp 97.4 F 06/13/23 07:17 Pulse 77 06/13/23 07:17 Resp 16 06/13/23 07:17 BP 168/92 H 06/13/23 07:17 Pulse Ox 97 06/13/23 07:17 O2 Del Method Room Air 06/13/23 07:17 BMI result Body Mass Index 33.9 Const: Other: Awake alert no acute distress Orientation/consciousness: patient oriented x3 Resp: Other: Clear to auscultation bilaterally no rales rhonchi or wheezes Cardio: Other: No S4; positive S1-S2; no S3 murmurs rubs or gallops GI: Other: Soft nontender nondistended normoactive bowel sounds Neuro: General: patient oriented x3 Objective Data Labs 06/12/23 05:39 06/12/23 19:59 Labs: Laboratory Results - last 24 hr 06/08/23 06/12/23 06/12/23 18:03 05:57 08:48 APTT 28.2 Protein C Antigen TNP O2 Saturation ABG pH at Pt Temp ABG pCO2 at Pt Temp ABG pO2 at Pt Temp ABG HCO3 ABG Base Excess (Actual) Sodium 128 L Potassium 5.3 H Chloride 96 Carbon Dioxide 21 L Anion Gap 16 BUN 68 H Creatinine 5.93 H* Estim Creat Clear Calc 15.0 Estimated GFR 8 POC Glucose Random Glucose 313 H Calcium 7.2 L Phosphorus Magnesium Albumin Urine Color Urine Appearance Urine pH Ur Specific [place] Urine Protein Urine Glucose (UA) Urine Ketones Urine Blood Urine Nitrite Ur Leukocyte Esterase Urine RBC Urine WBC Ur Squamous Epith Cells Urine Bacteria Hyaline Casts U Random Total Protein Ur Random Sodium Urine Creatinine 06/12/23 06/12/23 06/12/23 11:07 11:24 13:11 APTT Protein C Antigen O2 Saturation 100.0 ABG pH at Pt Temp 7.42 ABG pCO2 at Pt Temp 30 L ABG pO2 at Pt Temp 107 ABG HCO3 19 L ABG Base Excess (Actual) -3.5 Sodium Potassium Chloride Carbon Dioxide Anion Gap BUN Creatinine Estim Creat Clear Calc Estimated GFR POC Glucose 452 H* Random Glucose Calcium Phosphorus Magnesium Albumin Urine Color Yellow Urine Appearance Clear Urine pH 6.0 Ur Specific [place] 1.015 Urine Protein 100 (2+) H Urine Glucose (UA) >=1000 H Urine Ketones Negative Urine Blood Negative Urine Nitrite Negative Ur Leukocyte Esterase Negative Urine RBC 0-2 Urine WBC 0-5 Ur Squamous Epith Cells 0-2 Urine Bacteria 2+ Hyaline Casts 0-2 U Random Total Protein 88 H Ur Random Sodium < 20.0 Urine Creatinine 73.69 06/12/23 06/12/23 06/12/23 13:22 15:30 19:32 APTT Protein C Antigen O2 Saturation ABG pH at Pt Temp ABG pCO2 at Pt Temp ABG pO2 at Pt Temp ABG HCO3 ABG Base Excess (Actual) Sodium 127 L Potassium 5.6 H Chloride 94 L Carbon Dioxide 23 Anion Gap 16 BUN 70 H Creatinine 6.16 H* Estim Creat Clear Calc 14.5 Estimated GFR 7 POC Glucose 276 H 138 H Random Glucose 404 H* Calcium 7.3 L Phosphorus 5.6 H Magnesium 1.8 Albumin 3.6 Urine Color Urine Appearance Urine pH Ur Specific [place] Urine Protein Urine Glucose (UA) Urine Ketones Urine Blood Urine Nitrite Ur Leukocyte Esterase Urine RBC Urine WBC Ur Squamous Epith Cells Urine Bacteria Hyaline Casts U Random Total Protein Ur Random Sodium Urine Creatinine 06/12/23 06/13/23 19:59 00:01 APTT Protein C Antigen O2 Saturation ABG pH at Pt Temp ABG pCO2 at Pt Temp ABG pO2 at Pt Temp ABG HCO3 ABG Base Excess (Actual) Sodium 131 L Potassium 5.1 Chloride 97 Carbon Dioxide 23 Anion Gap 16 BUN 74 H Creatinine 5.70 H* Estim Creat Clear Calc 15.6 Estimated GFR 8 POC Glucose 217 H Random Glucose 168 H Calcium 7.6 L Phosphorus Magnesium Albumin Urine Color Urine Appearance Urine pH Ur Specific [place] Urine Protein Urine Glucose (UA) Urine Ketones Urine Blood Urine Nitrite Ur Leukocyte Esterase Urine RBC Urine WBC Ur Squamous Epith Cells Urine Bacteria Hyaline Casts U Random Total Protein Ur Random Sodium Urine Creatinine Procedures Date of Service Date of Service: 06/13/23 Assessment & Plan Assessment and plan (1) CKD (chronic kidney disease): Status: Acute Plan Assessment and plan (1) Acute kidney injury superimposed on CKD: Status: Acute (2) Malignant hypertension: Status: Acute Plan 1. Acute kidney injury on CKD 4 with hyperkalemia CKD is related to longstanding HTN and renovascular disease. Acute kidney injury in this patient likely secondary to severe renal hypoperfusion/acute tubular injury in the setting of acute coronary syndrome. multifactorial - prerenal. and renal hypoperfusion in the setting of Entresto. The patient had hypertensive emergency with likely nephron damage in the setting of uncontrolled hypertension. We ruled out obstruction. She is non oliguric. 2. Hyperkalemia Related to poor GFR and Entresto Also patient is not following a K restricted diet 3. Hypertensive emergency, but now fluctuating between low and high bps 4. Anemia of chronic disease. 5. Renal artery stenosis. 6. Acute coronary syndrome. 7. 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 she has visual deficits RECOMMENDATIONS: strict renal diet K+ restricted Diet Lokelma again stat today Labs ordered stat today STOPPED torsemide c/w IVF support c/w Coreg to 12.5 BID Increased hydraalzine to 100mg TID Time Spent With Patient Time: Total time managing care of this patient today ____ minutes. Progress Note: Quality Stroke Does the patient have a stroke diagnosis?: No
[2023-06-13] MEDS: carvediloL 25 MG TABLET PO ×2 (08:35→21:04)
[2023-06-13] MEDS: NIFEdipine ER 90 MG TAB.ER.24 PO ×2 (08:35→21:03)
[2023-06-13] MEDS: hydrALAZINE HCl 50 MG TABLET 100 MG PO ×3 (08:35→21:04)
[2023-06-13] MEDS: Nicotine 21 MG PATCH.TD24 TRANSDERMA (08:36)
[2023-06-13] MEDS: Insulin Glargine,Hum.rec.anlog 100 UNIT/ML 10 ML VIAL 10 UNIT SUBCUT (08:37)
[2023-06-13] MEDS: 0.9 % Sodium Chloride Flush 3 ML SYRINGE IVFLUSH (08:37)
[2023-06-13 08:52] LABS: Anion Gap 16 (12-20); Blood Urea Nitrogen 76 mg/dL (9-16); Calcium 7.5 mg/dL (8.4-10.2); Carbon Dioxide 21 mmol/L (22-29); Chloride 97 mmol/L (96-108); Creatinine Clr Calc Pharmacy 16.4; Estimated Glomerular Filt Rate 9; Glucose Random 346 mg/dL (60-115); Potassium 5.2 mmol/L (3.3-5.1); Sodium 129 mmol/L (135-145)
[2023-06-13 08:54] LABS: Glucose, Whole Blood 360 mg/dL (60-115)
[2023-06-13] MEDS: ondansetron HCL 4 MG/2 ML VIAL IVPUSH (10:03)
[2023-06-13] MEDS: Insulin Lispro 100 UNIT/ML 3 ML VIAL SUBCUT ×5 (10:06→21:04)
[2023-06-13] MEDS: Sodium Zirconium Cyclosilicate 10 GM POWD.PACK PO ×2 (10:07→15:03)
[2023-06-13] MEDS: Insulin Glargine,Hum.rec.anlog 100 UNIT/ML 10 ML VIAL SUBCUT (10:56)
--- NOTE | 2023-06-13 11:41 | MHC.CM.PN ---
PER DISCUSSION WITH MD, NO PLAN FOR DC TODAY
[2023-06-13 11:58] LABS: Glucose, Whole Blood 368 mg/dL (60-115)
[2023-06-13 12:46] LABS: Creatinine Urine 58.35 mg/dL; Sodium Urine Random < 20.0 mmol/L
--- NOTE | 2023-06-13 14:48 | P.PNIM_ITS ---
Subjective Subjective Date of Service: 06/13/23 Interval History: worsening renal function,hyperkalemia,boderline bp. Review of Systems visual blurriess similar no nausea or vomiting or fever s no abd pain Physical Exam 2 Vital Signs: Vital Signs: Last Vital Signs Temp 97.4 F 06/13/23 12:00 Pulse 77 06/13/23 12:00 Resp 16 06/13/23 12:00 BP 168/92 H 06/13/23 12:00 Pulse Ox 97 06/13/23 12:00 O2 Del Method Room Air 06/13/23 12:00 BMI result Body Mass Index 33.9 Appearance: Alert.? Oriented X3.?tired cvs: rrr, [id number] . res: clear to auscultation ,no rhonchii or wheezing abd: no rebound or guarding ,nt, bs present. ext pulses present , no cyanosis. neuro: axo3 , moves all ext Objective Data Active Medications Acetaminophen (Acetaminophen 325 Mg Tablet) 650 mg PO Q6H PRN PRN Reason: Pain, Mild (Pain Scale 1-3) Last Admin: 06/12/23 05:33 Dose: 650 mg Documented By: MINNIE Albuterol Sulfate (Albuterol Sulfate 90 Mcg 8 Gm Inhaler) 1 puff INHALE QID PRN PRN Reason: Wheezing Atorvastatin Calcium (Atorvastatin Calcium 80 Mg Tablet) 80 mg PO BEDTIME [facility] Last Admin: 06/12/23 19:54 Dose: 80 mg Documented By: MINNIE Carvedilol (Carvedilol 25 Mg Tablet) 25 mg PO BID [facility]; Protocol Last Admin: 06/13/23 08:35 Dose: 25 mg Documented By: DAQUAN Dextrose (Dextrose 50 % 25 Gm/50 Ml Syringe) 25 gm IVPUSH Q15M PRN; Protocol PRN Reason: per Hypoglycemia Standing Ord. Glucose (Glucose Gel 15 Gm Gel..Gram.) 15 gm PO Q15M PRN; Protocol PRN Reason: per Hypoglycemia Standing Ord. Hydralazine HCl (Hydralazine Hcl 50 Mg Tablet) 100 mg PO TID [facility]; Protocol Last Admin: 06/13/23 08:35 Dose: 100 mg Documented By: DAQUAN Methylprednisolone Sodium Succinate 1,000 mg/ Sodium Chloride 66 mls @ 66 mls/hr IV DAILY@2100 [facility] Stop: 06/14/23 20:59 Last Infusion: 06/13/23 00:24 Dose: Infused Documented By: MINNIE Sodium Chloride (Ns) 1,000 mls @ 80 mls/hr IVCONT .[id number] [facility] [place] Last Admin: 06/13/23 01:37 Dose: 80 mls/hr Documented By: MINNIE Insulin Glargine (Insulin Glargine,Hum.Rec.Anlog 100 Unit/Ml 10 Ml Vial) 25 unit SUBCUT BEDTIME [facility] [place] Last Admin: 06/12/23 19:54 Dose: 25 unit Documented By: MINNIE Insulin Glargine (Insulin Glargine,Hum.Rec.Anlog 100 Unit/Ml 10 Ml Vial) 10 unit SUBCUT DAILY [facility] [place] Last Admin: 06/13/23 08:37 Dose: 10 unit Documented By: DAQUAN Insulin Human Lispro (Insulin Lispro 100 Unit/Ml 3 Ml Vial) 0 unit SUBCUT QIDACHS [facility] [place]; Protocol Last Admin: 06/13/23 12:05 Dose: 14 unit Documented By: DAQUAN Nicotine (Nicotine 21 Mg Patch.Td24) 21 mg TRANSDERMA DAILY [facility] Last Admin: 06/13/23 08:36 Dose: 21 mg Documented By: DAQUAN Nifedipine (Nifedipine Er 90 Mg Tab.Er.24) 90 mg PO BID [facility] [place]; Protocol Last Admin: 06/13/23 08:35 Dose: 90 mg Documented By: DAQUAN Omeprazole (Omeprazole 20 Mg Capsule.) 20 mg PO DAILY PRN PRN Reason: heartburn Last Admin: 06/07/23 22:15 Dose: 20 mg Documented By: TAMIA Ondansetron HCl (Ondansetron Hcl 4 Mg/2 Ml Vial) 4 mg IVPUSH Q4H PRN PRN Reason: nausea Last Admin: 06/13/23 10:03 Dose: 4 mg Documented By: DAQUAN Oxycodone HCl (Oxycodone Hcl Immed Release 5 Mg Tablet) 5 mg PO Q6H PRN PRN Reason: Pain, Mild (Pain Scale 1-3) Last Admin: 06/13/23 08:35 Dose: 5 mg Documented By: DAQUAN Sodium Chloride (0.9 % Sodium Chloride Flush 3 Ml Syringe) 3 ml IVFLUSH QSHIFT [facility] Last Admin: 06/13/23 08:37 Dose: 3 ml Documented By: DAQUAN Labs 06/12/23 05:39 06/13/23 08:16 Labs: Laboratory Results - last 24 hr 06/12/23 06/12/23 06/12/23 15:30 19:32 19:59 Hold Purple Top Anion Gap 16 Estim Creat Clear Calc 15.6 Estimated GFR 8 POC Glucose 276 H 138 H Random Glucose 168 H Calcium 7.6 L Hold Red Top Ur Random Sodium Urine Creatinine 06/13/23 06/13/23 06/13/23 00:01 08:16 08:50 Hold Purple Top SEE NOTE Anion Gap 16 Estim Creat Clear Calc 16.4 Estimated GFR 9 POC Glucose 217 H 360 H* Random Glucose 346 H Calcium 7.5 L Hold Red Top See Note Ur Random Sodium Urine Creatinine 06/13/23 06/13/23 11:54 12:10 Hold Purple Top Anion Gap Estim Creat Clear Calc Estimated GFR POC Glucose 368 H* Random Glucose Calcium Hold Red Top Ur Random Sodium < 20.0 Urine Creatinine 58.35 Assessment and Plan (1) White matter disease: Status: Acute Plan 43-year-old female with past medical history significant for essential hypertension, CKD on transplant list who presented complaining of chest pain that was radiating to right arm began earlier this morning. She states his pain was accompanied with nausea and vomiting it was self limiting. Upon transport, EMS found her blood pressure to be 240 for which she received a nitro with improvement in her pressure and her chest pain. Upon arrival to the emergency room she was essentially started on her current medicines and admission was requested Hypertensive unconrtolled -bp flactuating difficult to control ,because of vast flactuation from 90mmhg to 170 range . renal us:Possible extrarenal pelvis versus mild fullness right renal collecting system.Borderline mild diffuse renal cortical thinning. No hydronephrosis. No renal calculi. Limited visualization. started back on coreg ,procardia with holding parameters ( sbp around 120 mmhg). Nstemi: will change asa to plavix(now on hold for 5 days due to need for LP) , statin, completed 48 heparin (on 06/09/23) no chest pain Echocardiography has not shown any wall motion abnormality but did show significant left ventricular hypertrophy. cardio-recomended to continue abve , hold plavix as above. jared on CKD stage III B(Acute kidney injury in this patient likely secondary to severe renal hypoperfusion/acute tubular injury in the setting of acute coronary syndrome. cr progressively worsening as well as hyperkalemia pseudohyponatremia sec to hyperglycemia added loklema 10 mg x2 renal function progressively worsening,ivf. follow renals/divalents DMII with hyperglycemia : dm diet chnage fs q4hr patient has more hyperglyecmia due to high dose steriods adjusted lantus and lispro correctional scale adjusted. eye changes : question multifactorial {has retinopathy(dm/htn)- seen by dr lokesh miguel last month } Exam on both temporal-no tenderness on palpation,ESR/crp are normal(06/10/23), eye exam/pressure seems fine (please see my 06/10/23 note) carotid dupplex: seems fine. spoke to Dr Murrieta (oph) on 06/10/23 -recomended need more dm /htn control ,follow up with her opthalomogist. d/w neurology ct head shows ch stroke changes mri:Again there is relatively extensive chronic white matter disease with a periventricular predominant distribution. There is also chronic disease involving the basal ganglia, thalami, and conchita. One of the callosal lesions located within the central portion of the genu. seen by neurology -patient ESR and CRP normal , anticardiolipin antibody IgG and IgM negative,protein C activity normal,protein C antigen pending, mri reviewed . as per neuro note: She has extensive white matter disease and that was first picked up in April after she was evaluated in the office in her current MRIs unchanged. The etiology is unclear. Diagnostic possibilities include chronic MS and, less likely vasculitis or ischemic microvascular disease but mid the periventriccular involvement being very prominent as well as involvement of the corpus callosum. MS seems more likely. She's also had sudden loss of vision in the eyes, which would go along with optic neuritis recomended -added iv solumedrol 1000 mg qdaily for 3 days also need more dm /htn control d/w nephro ,iCu ,also rheumatolgy,neurology-continue above management.also placed called for Dr Lokesh miguel (patient oph ). d/w neurology -continue solumedrol -no need for transfer for now -vision is improving d/w ICU- continue current management , Metabolic acidosis with normal pH inappropriate respiratory compensation. Hemodynamics and respiratory status are normal. At this time does not require intensive care unit level of care. Please notify for re-evaluation, if patient's condition changes. Full code Lovenox Patient will require ongoing hospitalization for jared ,diabteic and bp control- moniter bp/dm ,vision changes, also close monitoring for renal function and electrolytes.nephro expert follow up. Quality Stroke Does the patient have a stroke diagnosis?: No VTE Prior VTE?: No VTE Risk Level:: Medical - moderate - high VTE Device Contraindication: Treatment Not Indicated VTE Drug Contraindication: N/A - Med Ordered
[2023-06-13 15:40] LABS: Appearance Urine Clear; Color Urine Yellow; Glucose Urine UA >=1000 mg/dL (Negative); Leukocyte Esterase Urine Negative (Negative); Nitrite Urine Negative (Negative); PH 5.5 (5.0-9.0); Specific Gravity - Urine 1.015 (1.005-1.025); UMIC TRIGGER UA YES; Urine Blood Negative (Negative); Urine Ketones Negative (Negative); Urine Protein 100 (2+) mg/dL (Neg-Trace)
[2023-06-13 15:45] LABS: Bacteria Urine 2+ (None Seen); Hyaline Casts Urine 0-2 /LPF (0-2); RBC Urine 0-2 /HPF (0-2); WBC Urine 0-5 /HPF (0-5)
[2023-06-13 17:09] LABS: Glucose, Whole Blood 413 mg/dL (60-115)
[2023-06-13 20:48] LABS: Glucose, Whole Blood 374 mg/dL (60-115)
[2023-06-13] MEDS: Atorvastatin Calcium 80 MG TABLET PO (21:03)
[2023-06-13] MEDS: methylPREDNISolone Sod Succ 1,000 MG in 0.9 % Sodium Chloride 50 ML 66 MG IV (21:03)
[2023-06-13] MEDS: Insulin Glargine,Hum.rec.anlog 100 UNIT/ML 10 ML VIAL 25 UNIT SUBCUT (21:04)
[2023-06-13] MEDS: Omeprazole 20 MG CAPSULE.DR PO (21:41)
[2023-06-13] MEDS: Calcium Carbonate 750 MG TAB.CHEW 1500 MG PO (22:18)
[2023-06-14 00:32] LABS: Glucose, Whole Blood 244 mg/dL (60-115)
[2023-06-14 03:01] VITALS: BP 129/70; PULSE 75; RESP 20; TEMP 36.6; O2SAT 95
[2023-06-14] MEDS: oxyCODONE HCl Immed Release 5 MG TABLET PO ×4 (03:17→21:15)
[2023-06-14 04:24] LABS: Anion Gap 19 (12-20); Blood Urea Nitrogen 84 mg/dL (9-16); Calcium 7.1 mg/dL (8.4-10.2); Carbon Dioxide 18 mmol/L (22-29); Chloride 97 mmol/L (96-108); Creatinine Clr Calc Pharmacy 15.6; Estimated Glomerular Filt Rate 8; Glucose Random 235 mg/dL (60-115); Potassium 4.6 mmol/L (3.3-5.1); Sodium 129 mmol/L (135-145)
[2023-06-14 05:42] LABS: Glucose, Whole Blood 255 mg/dL (60-115)
[2023-06-14 07:42] VITALS: BP 158/90; PULSE 77; RESP 18; TEMP 36.6; O2SAT 96
[2023-06-14] MEDS: Insulin Lispro 100 UNIT/ML 3 ML VIAL SUBCUT ×5 (07:48→21:15)
[2023-06-14] MEDS: carvediloL 25 MG TABLET PO ×2 (07:51→21:16)
[2023-06-14] MEDS: hydrALAZINE HCl 50 MG TABLET 100 MG PO ×3 (07:52→21:25)
[2023-06-14] MEDS: Nicotine 21 MG PATCH.TD24 TRANSDERMA (07:52)
[2023-06-14] MEDS: NIFEdipine ER 90 MG TAB.ER.24 PO ×2 (07:52→21:17)
[2023-06-14 07:53] LABS: Glucose, Whole Blood 292 mg/dL (60-115)
--- NOTE | 2023-06-14 09:05 | PM.PNNEP ---
Subjective Subjective Date of Service: 06/14/23 Interval history: Cr plateau? Na downtrending excess water intake worsening metabolic acidosis due to renal failure. 1L of UOP though Patient with no uremic symptoms K now stable. Physical Exam Vital Signs: Vital Signs: Last Vital Signs Temp 97.8 F 06/14/23 07:42 Pulse 77 06/14/23 07:42 Resp 18 06/14/23 07:42 BP 158/90 H 06/14/23 07:42 Pulse Ox 96 06/14/23 07:42 O2 Del Method Room Air 06/14/23 07:42 BMI result Body Mass Index 33.9 Const: Other: Awake alert no acute distress Orientation/consciousness: patient oriented x3 Resp: Other: Clear to auscultation bilaterally no rales rhonchi or wheezes Cardio: Other: No S4; positive S1-S2; no S3 murmurs rubs or gallops GI: Other: Soft nontender nondistended normoactive bowel sounds Neuro: General: patient oriented x3 Objective Data Labs 06/12/23 05:39 06/14/23 03:56 Labs: Laboratory Results - last 24 hr 06/13/23 06/13/23 06/13/23 08:16 08:50 11:54 Hold Purple Top SEE NOTE Sodium 129 L Potassium 5.2 H Chloride 97 Carbon Dioxide 21 L Anion Gap 16 BUN 76 H Creatinine 5.41 H* Estim Creat Clear Calc 16.4 Estimated GFR 9 POC Glucose 360 H* 368 H* Random Glucose 346 H Calcium 7.5 L Hold Red Top See Note Urin Auto w/Scope Clin Urine Color Urine Appearance Urine pH Ur Specific [place] Urine Protein Urine Glucose (UA) Urine Ketones Urine Blood Urine Nitrite Ur Leukocyte Esterase Urine RBC Urine WBC Ur Squamous Epith Cells Urine Bacteria Hyaline Casts Ur Random Sodium Urine Creatinine 06/13/23 06/13/23 06/13/23 12:10 15:20 17:05 Hold Purple Top Sodium Potassium Chloride Carbon Dioxide Anion Gap BUN Creatinine Estim Creat Clear Calc Estimated GFR POC Glucose 413 H* Random Glucose Calcium Hold Red Top Urin Auto w/Scope Clin Cancelled Urine Color Yellow Urine Appearance Clear Urine pH 5.5 Ur Specific [place] 1.015 Urine Protein 100 (2+) H Urine Glucose (UA) >=1000 H Urine Ketones Negative Urine Blood Negative Urine Nitrite Negative Ur Leukocyte Esterase Negative Urine RBC 0-2 Urine WBC 0-5 Ur Squamous Epith Cells 3-5 Urine Bacteria 2+ Hyaline Casts 0-2 Ur Random Sodium < 20.0 Urine Creatinine 58.35 06/13/23 06/13/23 06/14/23 20:39 23:55 03:56 Hold Purple Top SEE NOTE Sodium 129 L Potassium 4.6 Chloride 97 Carbon Dioxide 18 L Anion Gap 19 BUN 84 H Creatinine 5.69 H* Estim Creat Clear Calc 15.6 Estimated GFR 8 POC Glucose 374 H* 244 H Random Glucose 235 H Calcium 7.1 L Hold Red Top Urin Auto w/Scope Clin Urine Color Urine Appearance Urine pH Ur Specific [place] Urine Protein Urine Glucose (UA) Urine Ketones Urine Blood Urine Nitrite Ur Leukocyte Esterase Urine RBC Urine WBC Ur Squamous Epith Cells Urine Bacteria Hyaline Casts Ur Random Sodium Urine Creatinine 06/14/23 06/14/23 05:39 07:39 Hold Purple Top Sodium Potassium Chloride Carbon Dioxide Anion Gap BUN Creatinine Estim Creat Clear Calc Estimated GFR POC Glucose 255 H 292 H Random Glucose Calcium Hold Red Top Urin Auto w/Scope Clin Urine Color Urine Appearance Urine pH Ur Specific [place] Urine Protein Urine Glucose (UA) Urine Ketones Urine Blood Urine Nitrite Ur Leukocyte Esterase Urine RBC Urine WBC Ur Squamous Epith Cells Urine Bacteria Hyaline Casts Ur Random Sodium Urine Creatinine Procedures Date of Service Date of Service: 06/14/23 Assessment & Plan Assessment and plan (1) CKD (chronic kidney disease): Status: Acute Plan Assessment and plan (1) Acute kidney injury superimposed on CKD: Status: Acute (2) Malignant hypertension: Status: Acute Plan 1. Acute kidney injury on CKD 4 with hyperkalemia CKD is related to longstanding HTN and renovascular disease. Acute kidney injury in this patient likely secondary to severe renal hypoperfusion/acute tubular injury in the setting of acute coronary syndrome. The BP ranges from hyerptensive emergency to over correction to hypotension also leads to loss of auto-regulation of renal perfusion and subsequent renal ischemia. I looked at the patients U/A. There is no blood on sediment. There is no evidence of a GN on U/A. Urine Sodium also is LOW. Suggesting a hemodynamic renal insult. ALthough she may have a rheumatologic systemic process, with blurry vision, I do not feel there is renal involvement. 2. Hyperkalemia Related to poor GFR and Entresto Also patient is not following a K restricted diet 3. Hypertensive emergency, but now fluctuating between low and high bps 4. Metabolic acidosis 2/2 renal failure RECOMMENDATIONS: Lokelma PRN K >5.0 start NaBicarb 1300mg PO TID c/w IVF support hold diuretics (held yesterday, was being given with IVF) c/w Coreg to 25mg BID c/w Nifedipine 90mg daily c/w hydraalzine to 100mg TID Time Spent With Patient Time: Total time managing care of this patient today ____ minutes. Progress Note: Quality Stroke Does the patient have a stroke diagnosis?: No
[2023-06-14] MEDS: Sodium Bicarbonate 650 MG TABLET 1300 MG PO ×3 (09:34→21:17)
[2023-06-14] MEDS: Tamsulosin HCL 0.4 MG CAPSULE PO (09:34)
[2023-06-14] MEDS: Insulin Glargine,Hum.rec.anlog 100 UNIT/ML 10 ML VIAL 20 UNIT SUBCUT (09:35)
[2023-06-14 11:35] VITALS: BP 139/72; PULSE 71; RESP 18; TEMP 36.6; O2SAT 98
--- NOTE | 2023-06-14 11:36 | MHC.CM.PN ---
This CM met with pt at her request. Pt states it is difficult to be here without her children, her 3 children 4, 16, 18 (older 2 with autism) have been in the care of her friends. Pt states she has a limited support system (children's fathers not involved, her mother with dementia). Pt states she is aware that she is sick and wants the care so she can be here for her children for more years to come, but is not sure what to do. Pt asking if she can leave and get outpt services. Pt also states MD told her they may transfer her to [facility] or . Emotional support provided by this CM. Hospitalist made aware of situation.
[2023-06-14 11:49] LABS: Glucose, Whole Blood 415 mg/dL (60-115)
--- NOTE | 2023-06-14 13:24 | HO.PM.IMPN ---
Subjective Subjective Date of Service: 06/14/23 Interval History: jared, ?MS Review of Systems vision change similar ( neither better or worse) Physical Exam Vital Signs: Vital Signs: Last Vital Signs Temp 97.9 F 06/14/23 11:35 Pulse 71 06/14/23 11:35 Resp 18 06/14/23 11:35 BP 139/72 06/14/23 11:35 Pulse Ox 98 06/14/23 11:35 O2 Del Method Room Air 06/14/23 11:35 BMI result Body Mass Index 33.9 Appearance: Alert.? Oriented X3.?tired cvs: rrr, [id number] . res: clear to auscultation ,no rhonchii or wheezing abd: no rebound or guarding ,nt, bs present. ext pulses present , no cyanosis. neuro: axo3 , moves all ext Objective Data Active Medications Acetaminophen (Acetaminophen 325 Mg Tablet) 650 mg PO Q6H PRN PRN Reason: Pain, Mild (Pain Scale 1-3) Last Admin: 06/12/23 05:33 Dose: 650 mg Documented By: MINNIE Albuterol Sulfate (Albuterol Sulfate 90 Mcg 8 Gm Inhaler) 1 puff INHALE QID PRN PRN Reason: Wheezing Atorvastatin Calcium (Atorvastatin Calcium 80 Mg Tablet) 80 mg PO BEDTIME [facility] Last Admin: 06/13/23 21:03 Dose: 80 mg Documented By: MINNIE Carvedilol (Carvedilol 25 Mg Tablet) 25 mg PO BID [facility]; Protocol Last Admin: 06/14/23 07:51 Dose: 25 mg Documented By: DAQUAN Dextrose (Dextrose 50 % 25 Gm/50 Ml Syringe) 25 gm IVPUSH Q15M PRN; Protocol PRN Reason: per Hypoglycemia Standing Ord. Glucose (Glucose Gel 15 Gm Gel..Gram.) 15 gm PO Q15M PRN; Protocol PRN Reason: per Hypoglycemia Standing Ord. Hydralazine HCl (Hydralazine Hcl 50 Mg Tablet) 100 mg PO TID [facility]; Protocol Last Admin: 06/14/23 07:52 Dose: 100 mg Documented By: DAQUAN Methylprednisolone Sodium Succinate 1,000 mg/ Sodium Chloride 66 mls @ 66 mls/hr IV DAILY@2100 [facility] Stop: 06/14/23 20:59 Last Infusion: 06/13/23 22:27 Dose: Infused Documented By: MINNIE Insulin Glargine (Insulin Glargine,Hum.Rec.Anlog 100 Unit/Ml 10 Ml Vial) 25 unit SUBCUT BEDTIME [facility] Last Admin: 06/13/23 21:04 Dose: 25 unit Documented By: MINNIE Insulin Glargine (Insulin Glargine,Hum.Rec.Anlog 100 Unit/Ml 10 Ml Vial) 20 unit SUBCUT DAILY [facility] Insulin Human Lispro (Insulin Lispro 100 Unit/Ml 3 Ml Vial) 0 unit SUBCUT QIDACHS [facility]; Protocol Last Admin: 06/14/23 12:22 Dose: 14 unit Documented By: DAQUAN Nicotine (Nicotine 21 Mg Patch.Td24) 21 mg TRANSDERMA DAILY [facility] Last Admin: 06/14/23 07:52 Dose: 21 mg Documented By: DAQUAN Nifedipine (Nifedipine Er 90 Mg Tab.Er.24) 90 mg PO BID [facility]; Protocol Last Admin: 06/14/23 07:52 Dose: 90 mg Documented By: DAQUAN Omeprazole (Omeprazole 20 Mg Capsule.Dr) 20 mg PO DAILY PRN PRN Reason: heartburn Last Admin: 06/13/23 21:41 Dose: 20 mg Documented By: MINNIE Ondansetron HCl (Ondansetron Hcl 4 Mg/2 Ml Vial) 4 mg IVPUSH Q4H PRN PRN Reason: nausea Last Admin: 06/13/23 10:03 Dose: 4 mg Documented By: DAQUAN Oxycodone HCl (Oxycodone Hcl Immed Release 5 Mg Tablet) 5 mg PO Q6H PRN PRN Reason: Pain, Mild (Pain Scale 1-3) Last Admin: 06/14/23 09:34 Dose: 5 mg Documented By: DAQUAN Sodium Bicarbonate (Sodium Bicarbonate 650 Mg Tablet) 1,300 mg PO TID [facility] Last Admin: 06/14/23 09:34 Dose: 1,300 mg Documented By: DAQUAN Sodium Chloride (0.9 % Sodium Chloride Flush 3 Ml Syringe) 3 ml IVFLUSH QSHIFT [facility] Last Admin: 06/14/23 08:38 Dose: Not Given Documented By: HO.LEAHYKE Non-Admin Reason: Previously Administered Tamsulosin HCl (Tamsulosin Hcl 0.4 Mg Capsule) 0.4 mg PO DAILY [facility] Labs 06/12/23 05:39 06/14/23 03:56 Labs: Laboratory Results - last 24 hr 06/13/23 06/13/23 06/13/23 12:10 15:20 17:05 Hold Purple Top Anion Gap Estim Creat Clear Calc Estimated GFR POC Glucose 413 H* Random Glucose Calcium Urin Auto w/Scope Clin Cancelled Urine Color Yellow Urine Appearance Clear Urine pH 5.5 Ur Specific [place] 1.015 Urine Protein 100 (2+) H Urine Glucose (UA) >=1000 H Urine Ketones Negative Urine Blood Negative Urine Nitrite Negative Ur Leukocyte Esterase Negative Urine RBC 0-2 Urine WBC 0-5 Ur Squamous Epith Cells 3-5 Urine Bacteria 2+ Hyaline Casts 0-2 Ur Random Sodium < 20.0 Urine Creatinine 58.35 06/13/23 06/13/23 06/14/23 20:39 23:55 03:56 Hold Purple Top SEE NOTE Anion Gap 19 Estim Creat Clear Calc 15.6 Estimated GFR 8 POC Glucose 374 H* 244 H Random Glucose 235 H Calcium 7.1 L Urin Auto w/Scope Clin Urine Color Urine Appearance Urine pH Ur Specific [place] Urine Protein Urine Glucose (UA) Urine Ketones Urine Blood Urine Nitrite Ur Leukocyte Esterase Urine RBC Urine WBC Ur Squamous Epith Cells Urine Bacteria Hyaline Casts Ur Random Sodium Urine Creatinine 06/14/23 06/14/23 06/14/23 05:39 07:39 11:32 Hold Purple Top Anion Gap Estim Creat Clear Calc Estimated GFR POC Glucose 255 H 292 H 415 H* Random Glucose Calcium Urin Auto w/Scope Clin Urine Color Urine Appearance Urine pH Ur Specific [place] Urine Protein Urine Glucose (UA) Urine Ketones Urine Blood Urine Nitrite Ur Leukocyte Esterase Urine RBC Urine WBC Ur Squamous Epith Cells Urine Bacteria Hyaline Casts Ur Random Sodium Urine Creatinine Assessment and Plan (1) White matter disease: Status: Acute (2) Hyperglycemia: Status: Acute Plan 43-year-old female with past medical history significant for essential hypertension, CKD on transplant list who presented complaining of chest pain that was radiating to right arm began earlier this morning. She states his pain was accompanied with nausea and vomiting it was self limiting. Upon transport, EMS found her blood pressure to be 240 for which she received a nitro with improvement in her pressure and her chest pain. Upon arrival to the emergency room she was essentially started on her current medicines and admission was requested Hypertensive unconrtolled -bp improving renal us:Possible extrarenal pelvis versus mild fullness right renal collecting system.Borderline mild diffuse renal cortical thinning. No hydronephrosis. No renal calculi. Limited visualization. started back on coreg ,procardia, hydralazinewith holding parameters ( sbp around 120 mmhg). Nstemi: will change asa to plavix(now on hold for 5 days due to need for LP) , statin, completed 48 heparin (on 06/09/23) plavix on hold since 06/12/23. no chest pain Echocardiography has not shown any wall motion abnormality but did show significant left ventricular hypertrophy. cardio-recomended to continue abve , hold plavix as above. jared on CKD stage III B(Acute kidney injury in this patient likely secondary to severe renal hypoperfusion/acute tubular injury in the setting of acute coronary syndrome. cr progressively worsening as well as hyperkalemia pseudohyponatremia sec to hyperglycemia renal function progressively worsening,ivf. follow renals/divalents DMII with hyperglycemia : dm diet chnage fs q4hr patient has more hyperglyecmia due to high dose steriods further adjusted lantus and lispro correctional scale adjusted. Urinary retention : added flomax montiel uriology consult eye changes : question multifactorial {has retinopathy(dm/htn)- seen by dr lokesh miguel last month } Exam on both temporal-no tenderness on palpation,ESR/crp are normal(06/10/23), eye exam/pressure seems fine (please see my 06/10/23 note) carotid dupplex: seems fine. spoke to Dr Murrieta (oph) on 06/10/23 -recomended need more dm /htn control ,follow up with her opthalomogist. d/w neurology ct head shows ch stroke changes mri:Again there is relatively extensive chronic white matter disease with a periventricular predominant distribution. There is also chronic disease involving the basal ganglia, thalami, and conchita. One of the callosal lesions located within the central portion of the genu. seen by neurology -patient ESR and CRP normal , anticardiolipin antibody IgG and IgM negative,protein C activity normal,protein C antigen pending, mri reviewed . as per neuro note: She has extensive white matter disease and that was first picked up in April after she was evaluated in the office in her current MRIs unchanged. The etiology is unclear. Diagnostic possibilities include chronic MS and, less likely vasculitis or ischemic microvascular disease but mid the periventriccular involvement being very prominent as well as involvement of the corpus callosum. MS seems more likely. She's also had sudden loss of vision in the eyes, which would go along with optic neuritis recomended - iv solumedrol 1000 mg qdaily for 3 days(intiated on 06/11/23) also need more dm /htn control d/w nephro ,iCu ,also rheumatolgy,neurology-continue above management.also placed called for Dr Lokesh miguel (patient oph ). d/w neurology -continue solumedrol -no need for transfer for now -vision seems similar as yesterday. d/w ICU- continue current management , Metabolic acidosis with normal pH inappropriate respiratory compensation. Hemodynamics and respiratory status are normal. At this time does not require intensive care unit level of care. Please notify for re-evaluation, if patient's condition changes. Full code Lovenox Patient will require ongoing hospitalization for jared ,diabteic and bp control- moniter bp/dm ,vision changes, also close monitoring for renal function and electrolytes.nephro expert follow up. Quality Stroke Does the patient have a stroke diagnosis?: No VTE Prior VTE?: No VTE Risk Level:: Medical - moderate - high VTE Device Contraindication: Treatment Not Indicated VTE Drug Contraindication: N/A - Med Ordered
--- NOTE | 2023-06-14 14:13 | P.CNUR_ITS ---
History of Present Illness Consult details Consult date: 06/14/23 Narrative: CC: Urinary retention 43-year-old female Admit with acute renal insult secondary to cardiac event Concomitant urinary retention Albarran catheter placed Diabetes management had been disrupted with steroid use Straight cath 450 cc Given age suggests Albarran catheter for 48 hours followed by CIC teaching if required Review of Systems 2 Constitutional: Constitutional: Reports as per HPI and Reports no additional constitutional complaints Cardiovascular: Cardiovascular: Reports as per HPI and Reports no additional cardiovascular complaints Respiratory: Respiratory: Reports as per HPI and Reports no additional respiratory complaints Gastrointestinal: Gastrointestinal: Reports as per HPI and Reports no additional gastrointestinal complaints Genitourinary: Genitourinary: Reports as per HPI Musculoskeletal: Musculoskeletal: Reports no additional musculoskeletal complaints and Reports as per HPI Neurologic: Reports system reviewed and no additional complaints, except as documented and Reports as per HPI PMF Past Medical History Medical History CKD (chronic kidney disease) Hypertensive retinopathy Macular edema Diabetic retinopathy CHF (congestive heart failure) Malignant hypertension Heart block AV second degree Hypersomnia Cardiomyopathy CKD (chronic kidney disease) stage 2, GFR 60-89 ml/min Nicotine dependence, cigarettes, uncomplicated (~1999) Eclampsia Fatty liver Heart failure, unspecified (~09/2020) History of DVT (deep vein thrombosis) Diabetes mellitus Migraines Sjogren's disease Lupus Rheumatoid arthritis High cholesterol Anxiety PTSD (post-traumatic stress disorder) Bipolar 1 disorder H/O mixed connective tissue disease HTN (hypertension) Family History Family History Father Substance use disorder Mental health disorder Brother Substance use disorder Mental health disorder Brother Substance use disorder Mental health disorder Other Diabetes HTN (hypertension) Surgical History Surgical History History of hysterectomy History of bronchoscopy (~11/2020) History of cholecystectomy (~05/2014) Social History Social History Household Members: Children Household Members Other:: 3 Housing: House Are you a primary women's health care nurse practitioner to a significant other at home: No Do you presently have visiting nurse or other home services: No Alcohol intake: never Patient Tobacco Use Status: Current everyday Tobacco user Tobacco use type: Cigarette Cigarette Packs Per Day: 1 Cigarettes Per Day: 20.0 Years Smoked: 20 e-Cigarette/Vaping Use: Never Used Second Hand Smoke Exposure: No Substance Use Type: Marijuana Advance Directives Date on File: 06/03/21 service: No Current occupational status: disabled Cognitive needs: No Hearing needs: No Vision needs: No Meds Allergies Allergy/AdvReac Type Severity Reaction Status Date / Time amoxicillin Allergy Unknown rash Verified 05/18/23 13:17 cefaclor [From Ceclor] Allergy Unknown RASH Verified 05/18/23 13:17 cephalexin Allergy Unknown rash Verified 05/18/23 13:17 Cephalosporins Allergy Unknown RASH ALL Verified 05/18/23 13:17 [CEPHALOSPORINS] OVER cephradine [From VELOSEF] Allergy Unknown RASH Verified 05/18/23 13:17 Penicillins [PENICILLINS] Allergy Unknown RASH Verified 05/18/23 13:17 gabapentin [GABAPENTIN] AdvReac Unknown RESTLESS Verified 05/18/23 13:17 LEGS, Body becomes very uncomfortable Active Medications: Current Medications Acetaminophen (Acetaminophen 325 Mg Tablet) 650 mg PO Q6H PRN PRN Reason: Pain, Mild (Pain Scale 1-3) Last Admin: 06/12/23 05:33 Dose: 650 mg Albuterol Sulfate (Albuterol Sulfate 90 Mcg 8 Gm Inhaler) 1 puff INHALE QID PRN PRN Reason: Wheezing Atorvastatin Calcium (Atorvastatin Calcium 80 Mg Tablet) 80 mg PO BEDTIME [facility] Last Admin: 06/13/23 21:03 Dose: 80 mg Carvedilol (Carvedilol 25 Mg Tablet) 25 mg PO BID [facility]; Protocol Last Admin: 06/14/23 07:51 Dose: 25 mg Dextrose (Dextrose 50 % 25 Gm/50 Ml Syringe) 25 gm IVPUSH Q15M PRN; Protocol PRN Reason: per Hypoglycemia Standing Ord. Glucose (Glucose Gel 15 Gm Gel..Gram.) 15 gm PO Q15M PRN; Protocol PRN Reason: per Hypoglycemia Standing Ord. Hydralazine HCl (Hydralazine Hcl 50 Mg Tablet) 100 mg PO TID [facility]; Protocol Last Admin: 06/14/23 07:52 Dose: 100 mg Methylprednisolone Sodium Succinate 1,000 mg/ Sodium Chloride 66 mls @ 66 mls/hr IV DAILY@2100 [facility] Stop: 06/14/23 20:59 Last Infusion: 06/13/23 22:27 Dose: Infused Insulin Glargine (Insulin Glargine,Hum.Rec.Anlog 100 Unit/Ml 10 Ml Vial) 25 unit SUBCUT BEDTIME [facility] Last Admin: 06/13/23 21:04 Dose: 25 unit Insulin Glargine (Insulin Glargine,Hum.Rec.Anlog 100 Unit/Ml 10 Ml Vial) 20 unit SUBCUT DAILY [facility] Insulin Human Lispro (Insulin Lispro 100 Unit/Ml 3 Ml Vial) 0 unit SUBCUT QIDACHS [facility]; Protocol Last Admin: 06/14/23 12:22 Dose: 14 unit Nicotine (Nicotine 21 Mg Patch.Td24) 21 mg TRANSDERMA DAILY [facility] Last Admin: 06/14/23 07:52 Dose: 21 mg Nifedipine (Nifedipine Er 90 Mg Tab.Er.24) 90 mg PO BID [facility]; Protocol Last Admin: 06/14/23 07:52 Dose: 90 mg Omeprazole (Omeprazole 20 Mg Capsule.Dr) 20 mg PO DAILY PRN PRN Reason: heartburn Last Admin: 06/13/23 21:41 Dose: 20 mg Ondansetron HCl (Ondansetron Hcl 4 Mg/2 Ml Vial) 4 mg IVPUSH Q4H PRN PRN Reason: nausea Last Admin: 06/13/23 10:03 Dose: 4 mg Oxycodone HCl (Oxycodone Hcl Immed Release 5 Mg Tablet) 5 mg PO Q6H PRN PRN Reason: Pain, Mild (Pain Scale 1-3) Last Admin: 06/14/23 09:34 Dose: 5 mg Sodium Bicarbonate (Sodium Bicarbonate 650 Mg Tablet) 1,300 mg PO TID [facility] Last Admin: 06/14/23 09:34 Dose: 1,300 mg Sodium Chloride (0.9 % Sodium Chloride Flush 3 Ml Syringe) [facility] Last Admin: 06/14/23 08:38 Dose: Not Given Tamsulosin HCl (Tamsulosin Hcl 0.4 Mg Capsule) 0.4 mg PO DAILY [facility] Home Medications Medication Instructions Recorded Confirmed Last Taken Type carvedilol 25 mg tablet 50 mg PO BID 03/20/22 06/07/23 09/07/22 History nifedipine 90 mg tablet,extended 1 tab PO BID 04/22/22 06/07/23 09/07/22 History release 24 hr dulaglutide 1.5 mg/0.5 mL 1.5 mg subcut TH 05/28/22 06/07/23 10/09/22 History subcutaneous pen injector (Trulicity) torsemide 20 mg tablet 2 tab PO BID PRN Edema 05/28/22 06/07/23 09/07/22 History sacubitril 97 mg-valsartan 103 mg 1 tab PO BID 08/20/22 06/07/23 09/07/22 History tablet (Entresto) spironolactone 100 mg tablet 100 mg PO DAILY 05/18/23 06/07/23 Unknown History omeprazole 20 mg capsule,delayed 20 mg PO QAM PRN heartburn 06/07/23 06/07/23 Unknown History release Physical Exam 2 Vital Signs: Vital Signs: Last Vital Signs Temp 97.9 F 06/14/23 11:35 Pulse 71 06/14/23 11:35 Resp 18 06/14/23 11:35 BP 139/72 06/14/23 11:35 Pulse Ox 98 06/14/23 11:35 O2 Del Method Room Air 06/14/23 11:35 BMI result Body Mass Index 33.9 Const: General: cooperative, healthy appearing, comfortable and no acute distress Orientation/consciousness: patient oriented x3 HEENT: Face and sinus: Yes normal facial exam Mouth: moist mucous membranes Neck: Neck: Yes normal visual inspection, Yes full ROM and Yes trachea midline Chest: Chest palpation & inspection: normal inspection of the chest Resp: Effort & Inspection: normal respiratory effort, able to speak in complete sentences and no respiratory distress GI: Inspection: Yes normal to inspection Back/Spine/Pelvis: Cervical Spine: normal cervical lordosis Thoracic/Lumbar Spine: thoracic and lumbar spine normal to inspection Skin: General skin exam: no rashes or lesions noted Neuro: General: patient oriented x3, tone normal and moves all extremities Extrem: General: Yes normal to inspection and Yes capillary refill normal Results Labs 06/12/23 05:39 06/14/23 03:56 Labs: Abnormal lab results 06/13/23 06/13/23 06/13/23 Range/Units 15:20 17:05 20:39 Sodium (135-145) mmol/L Carbon Dioxide (22-29) mmol/L BUN (9-16) mg/dL Creatinine (0.5-1.4) mg/dL POC Glucose 413 H* 374 H* (60-115) mg/dL Random Glucose (60-115) mg/dL Calcium (8.4-10.2) mg/dL Urine Protein 100 (2+) H (Neg-Trace) mg/dL Urine Glucose (UA) >=1000 H (Negative) mg/dL 06/13/23 06/14/23 06/14/23 Range/Units 23:55 03:56 05:39 Sodium 129 L (135-145) mmol/L Carbon Dioxide 18 L (22-29) mmol/L BUN 84 H (9-16) mg/dL Creatinine 5.69 H* (0.5-1.4) mg/dL POC Glucose 244 H 255 H (60-115) mg/dL Random Glucose 235 H (60-115) mg/dL Calcium 7.1 L (8.4-10.2) mg/dL Urine Protein (Neg-Trace) mg/dL Urine Glucose (UA) (Negative) mg/dL 06/14/23 06/14/23 Range/Units 07:39 11:32 Sodium (135-145) mmol/L Carbon Dioxide (22-29) mmol/L BUN (9-16) mg/dL Creatinine (0.5-1.4) mg/dL POC Glucose 292 H 415 H* (60-115) mg/dL Random Glucose (60-115) mg/dL Calcium (8.4-10.2) mg/dL Urine Protein (Neg-Trace) mg/dL Urine Glucose (UA) (Negative) mg/dL BMP 06/14/23 03:56 Sodium 129 L Potassium 4.6 Chloride 97 Carbon Dioxide 18 L BUN 84 H Creatinine 5.69 H* Calcium 7.1 L Urine 06/07/23 06/12/23 06/13/23 Range/Units 07:55 11:24 15:20 Urine Color Yellow Yellow Yellow Urine Appearance Cloudy Clear Clear Urine pH 7.5 6.0 5.5 (5.0-9.0) Ur Specific [place] 1.010 1.015 1.015 (1.005-1.025) Urine Protein 300 (3+) H 100 (2+) H 100 (2+) H (Neg-Trace) mg/dL Urine Glucose (UA) 500 H >=1000 H >=1000 H (Negative) mg/dL All other labs normal. Assessment and Plan (1) Urinary retention with incomplete bladder emptying: Status: Acute Plan Albarran catheter 48 hour trial Possible CIC if required Procedures Date of Service Date of Service: 06/14/23
[2023-06-14] MEDS: hydrOXYzine HCL 25 MG TABLET PO (14:59)
[2023-06-14] MEDS: Docusate Sodium 100 MG CAPSULE PO (14:59)
[2023-06-14 15:48] VITALS: BP 151/82; PULSE 76; RESP 18; TEMP 36.7; O2SAT 97
[2023-06-14 15:56] LABS: Glucose, Whole Blood 336 mg/dL (60-115)
[2023-06-14] MEDS: 0.9 % Sodium Chloride Flush 3 ML SYRINGE IVFLUSH ×2 (17:00→21:17)
[2023-06-14 19:52] VITALS: BP 179/86; PULSE 90; RESP 20; TEMP 36.4; O2SAT 96
[2023-06-14 20:39] LABS: Glucose, Whole Blood 305 mg/dL (60-115)
[2023-06-14] MEDS: Insulin Glargine,Hum.rec.anlog 100 UNIT/ML 10 ML VIAL 25 UNIT SUBCUT (21:14)
[2023-06-14] MEDS: Atorvastatin Calcium 80 MG TABLET PO (21:16)
[2023-06-14 23:16] VITALS: BP 179/91; PULSE 83; RESP 20; TEMP 36.5; O2SAT 97
[2023-06-15] VITALS (8 sets, daily range): BP systolic 127–176; BP diastolic 62–91; PULSE 74–86; RESP 17–20; TEMP 36.5–36.8; O2SAT 94–98
[2023-06-15 01:46] LABS: Glucose, Whole Blood 275 mg/dL (60-115)
[2023-06-15] MEDS: hydrOXYzine HCL 25 MG TABLET PO ×3 (03:17→23:07)
[2023-06-15] MEDS: oxyCODONE HCl Immed Release 5 MG TABLET PO ×4 (03:17→23:06)
[2023-06-15 06:24] LABS: Glucose, Whole Blood 216 mg/dL (60-115)
[2023-06-15] MEDS: Insulin Lispro 100 UNIT/ML 3 ML VIAL SUBCUT ×4 (07:46→20:37)
[2023-06-15] MEDS: Insulin Glargine,Hum.rec.anlog 100 UNIT/ML 10 ML VIAL 20 UNIT SUBCUT (07:46)
[2023-06-15] MEDS: NIFEdipine ER 90 MG TAB.ER.24 PO ×2 (07:47→20:37)
[2023-06-15] MEDS: hydrALAZINE HCl 50 MG TABLET 100 MG PO ×3 (07:47→20:37)
[2023-06-15] MEDS: Sodium Bicarbonate 650 MG TABLET 1300 MG PO ×3 (07:47→20:37)
[2023-06-15] MEDS: Tamsulosin HCL 0.4 MG CAPSULE PO (07:47)
[2023-06-15] MEDS: carvediloL 25 MG TABLET PO ×2 (07:47→20:37)
[2023-06-15] MEDS: Nicotine 21 MG PATCH.TD24 TRANSDERMA (07:48)
[2023-06-15] MEDS: 0.9 % Sodium Chloride Flush 3 ML SYRINGE IVFLUSH ×3 (07:48→20:38)
[2023-06-15 07:51] LABS: Glucose, Whole Blood 202 mg/dL (60-115)
[2023-06-15 07:53] LABS: Anion Gap 18 (12-20); Blood Urea Nitrogen 87 mg/dL (9-16); Calcium 6.8 mg/dL (8.4-10.2); Carbon Dioxide 20 mmol/L (22-29); Chloride 97 mmol/L (96-108); Creatinine Clr Calc Pharmacy 15.1; Estimated Glomerular Filt Rate 8; Glucose Random 233 mg/dL (60-115); Potassium 4.1 mmol/L (3.3-5.1); Sodium 131 mmol/L (135-145)
--- NOTE | 2023-06-15 10:33 | MHC.CM.PN ---
PER MD ROUNDS, PT NOT MEDICALLY CLEARED FOR DC DCP REMAINS HOME WITH NEW [facility] VIA SELF ARRANGED TRANSPORT
[2023-06-15 11:31] LABS: Glucose, Whole Blood 171 mg/dL (60-115)
[2023-06-15 12:49] LABS: Microalbum/Creatinine Ratio Ur 897.5 ug/mg cr (<30); Sodium Urine Random < 20.0 mmol/L; Total Protein Urine Random 64 mg/dL (<12)
--- NOTE | 2023-06-15 14:53 | P.PNIM_ITS ---
Subjective Subjective Date of Service: 06/15/23 Interval History: jared on ckd Review of Systems denies new c/o says producing urine ,does not want montiel cr sligtly trending up fs seems better than yesterday vision Physical Exam 2 Vital Signs: Vital Signs: Last Vital Signs Temp 98.2 F 06/15/23 11:09 Pulse 75 06/15/23 14:14 Resp 17 06/15/23 14:14 BP 149/80 H 06/15/23 14:14 Pulse Ox 98 06/15/23 14:14 O2 Del Method Room Air 06/15/23 14:14 BMI result Body Mass Index 33.9 Appearance: Alert.? Oriented X3.?tired cvs: [id number], [id number] . res: clear to auscultation ,no rhonchii or wheezing abd: no rebound or guarding ,nt, bs present. ext pulses present , no cyanosis. neuro: axo3 , moves all ext Objective Data Active Medications Acetaminophen (Acetaminophen 325 Mg Tablet) 650 mg PO Q6H PRN PRN Reason: Pain, Mild (Pain Scale 1-3) Last Admin: 06/12/23 05:33 Dose: 650 mg Documented By: MINNIE Albuterol Sulfate (Albuterol Sulfate 90 Mcg 8 Gm Inhaler) 1 puff INHALE QID PRN PRN Reason: Wheezing Atorvastatin Calcium (Atorvastatin Calcium 80 Mg Tablet) 80 mg PO BEDTIME [facility] Last Admin: 06/14/23 21:16 Dose: 80 mg Documented By: IVONNE Carvedilol (Carvedilol 25 Mg Tablet) 25 mg PO BID [facility]; Protocol Last Admin: 06/15/23 07:47 Dose: 25 mg Documented By: DAQUAN Dextrose (Dextrose 50 % 25 Gm/50 Ml Syringe) 25 gm IVPUSH Q15M PRN; Protocol PRN Reason: per Hypoglycemia Standing Ord. Docusate Sodium (Docusate Sodium 100 Mg Capsule) 100 mg PO BID PRN PRN Reason: Constipation Last Admin: 06/14/23 14:59 Dose: 100 mg Documented By: DAQUAN Glucose (Glucose Gel 15 Gm Gel..Gram.) 15 gm PO Q15M PRN; Protocol PRN Reason: per Hypoglycemia Standing Ord. Hydralazine HCl (Hydralazine Hcl 50 Mg Tablet) 100 mg PO TID [facility]; Protocol Last Admin: 06/15/23 13:39 Dose: 100 mg Documented By: DAQUAN Hydroxyzine HCl (Hydroxyzine Hcl 25 Mg Tablet) 25 mg PO Q8H PRN PRN Reason: anxiety/restlessness Last Admin: 06/15/23 10:12 Dose: 25 mg Documented By: DAQUAN Insulin Glargine (Insulin Glargine,Hum.Rec.Anlog 100 Unit/Ml 10 Ml Vial) 25 unit SUBCUT BEDTIME [facility] Last Admin: 06/14/23 21:14 Dose: 25 unit Documented By: LAFLAMAdele Insulin Glargine (Insulin Glargine,Hum.Rec.Anlog 100 Unit/Ml 10 Ml Vial) 20 unit SUBCUT DAILY [facility] Last Admin: 06/15/23 07:46 Dose: 20 unit Documented By: DAQUAN Insulin Human Lispro (Insulin Lispro 100 Unit/Ml 3 Ml Vial) 0 unit SUBCUT QIDACHS [facility]; Protocol Last Admin: 06/15/23 12:11 Dose: 2 unit Documented By: DAQUAN Nicotine (Nicotine 21 Mg Patch.Td24) 21 mg TRANSDERMA DAILY [facility] Last Admin: 06/15/23 07:48 Dose: 21 mg Documented By: DAQUAN Nifedipine (Nifedipine Er 90 Mg Tab.Er.24) 90 mg PO BID [facility]; Protocol Last Admin: 06/15/23 07:47 Dose: 90 mg Documented By: DAQUAN Omeprazole (Omeprazole 20 Mg Capsule.) 20 mg PO DAILY PRN PRN Reason: heartburn Last Admin: 06/13/23 21:41 Dose: 20 mg Documented By: MINNIE Ondansetron HCl (Ondansetron Hcl 4 Mg/2 Ml Vial) 4 mg IVPUSH Q4H PRN PRN Reason: nausea Last Admin: 06/13/23 10:03 Dose: 4 mg Documented By: DAQUAN Oxycodone HCl (Oxycodone Hcl Immed Release 5 Mg Tablet) 5 mg PO Q6H PRN PRN Reason: Pain, Mild (Pain Scale 1-3) Last Admin: 06/15/23 10:12 Dose: 5 mg Documented By: DAQUAN Sodium Bicarbonate (Sodium Bicarbonate 650 Mg Tablet) 1,300 mg PO TID [facility] Last Admin: 06/15/23 13:39 Dose: 1,300 mg Documented By: DAQUAN Sodium Chloride (0.9 % Sodium Chloride Flush 3 Ml Syringe) 3 ml IVFLUSH QSHIFT [facility] Last Admin: 06/15/23 07:48 Dose: 3 ml Documented By: DAQUAN Tamsulosin HCl (Tamsulosin Hcl 0.4 Mg Capsule) 0.4 mg PO DAILY [facility] Last Admin: 06/15/23 07:47 Dose: 0.4 mg Documented By: DAQUAN Labs 06/12/23 05:39 06/15/23 06:29 Labs: Laboratory Results - last 24 hr 06/14/23 06/14/23 06/15/23 15:50 19:56 01:43 Hold Purple Top Anion Gap Estim Creat Clear Calc Estimated GFR POC Glucose 336 H 305 H 275 H Random Glucose Calcium Hold Yellow Top U Random Total Protein Ur Random Sodium Urine Creatinine Urine Microalbumin Microalb/Creat Ratio 06/15/23 06/15/23 06/15/23 06:20 06:29 07:12 Hold Purple Top SEE NOTE Anion Gap 18 Estim Creat Clear Calc 15.1 Estimated GFR 8 POC Glucose 216 H 202 H Random Glucose 233 H Calcium 6.8 L Hold Yellow Top See Note U Random Total Protein Ur Random Sodium Urine Creatinine Urine Microalbumin Microalb/Creat Ratio 06/15/23 06/15/23 11:06 Unknown Hold Purple Top Anion Gap Estim Creat Clear Calc Estimated GFR POC Glucose 171 H Random Glucose Calcium Hold Yellow Top U Random Total Protein 64 H Ur Random Sodium < 20.0 Urine Creatinine 49.80 Urine Microalbumin 447.0 Microalb/Creat Ratio 897.5 H Assessment and Plan (1) White matter disease: Status: Acute (2) Hyperglycemia: Status: Acute Plan 43-year-old female with past medical history significant for essential hypertension, CKD on transplant list who presented complaining of chest pain that was radiating to right arm began earlier this morning. She states his pain was accompanied with nausea and vomiting it was self limiting. Upon transport, EMS found her blood pressure to be 240 for which she received a nitro with improvement in her pressure and her chest pain. Upon arrival to the emergency room she was essentially started on her current medicines and admission was requested Hypertensive unconrtolled -bp improving started back on coreg ,procardia, hydralazinewith holding parameters ( sbp around 120 mmhg). Nstemi: hold plavix(now on hold for 5 days due to need for LP) , statin, completed 48 heparin (on 06/09/23) plavix on hold since 06/12/23. no chest pain Echocardiography has not shown any wall motion abnormality but did show significant left ventricular hypertrophy. cardio-recomended to continue abve , hold plavix as above.then can restart after Lp. jared on CKD stage III B workup:renal us:Possible extrarenal pelvis versus mild fullness right renal collecting system.Borderline mild diffuse renal cortical thinning. No hydronephrosis. No renal calculi. Limited visualization.renal doppler:No evidence to suggest renal artery stenosis. Ua : has proteinuria,but no rbc or whc. esr ,crp normal urine output 800/1000ml cr progressively worsening plan:seen by nephro: Acute kidney injury in thispatient likely secondary to severe renal hypoperfusion/acute tubular injury in the setting of acute coronary syndrome. hyerptensive emergency to over correction to hypotension also leads to loss of auto-regulation of renal perfusion.(jared on ckd ).pseudohyponatremia sec to hyperglycemia renal function progressively worsening,still producing urine ,today no hyperkalemia possible need of HD if does not improve. d/w Dr rojas -currently no Hd because producing urine ,renal function seems similar to yesterday patient may need permacath placement if continue to worsen renal fucntion and need of HD. follow renals/divalents DMII with hyperglycemia : dm diet moniter fs qidac patient has more hyperglyecmia due to high dose steriods further adjusted lantus and lispro correctional scale adjusted. Urinary retention : added flomax she refused montiel uriology consult eye changes : question multifactorial {has retinopathy(dm/htn)- seen by dr lokesh miguel last month } says somewhat imporoving vision , can see me better today Exam on both temporal-no tenderness on palpation,ESR/crp are normal(06/10/23), eye exam/pressure seems fine (please see my 06/10/23 note) carotid dupplex: seems fine. d/w neurology ct head shows ch stroke changes mri:Again there is relatively extensive chronic white matter disease with a periventricular predominant distribution. There is also chronic disease involving the basal ganglia, thalami, and conchita. One of the callosal lesions located within the central portion of the genu.patient ESR and CRP normal , anticardiolipin antibody IgG and IgM negative,protein C activity normal,protein C antigen pending, mri reviewed . as per neuro note: She has extensive white matter disease and that was first picked up in April after she was evaluated in the office in her current MRIs unchanged. The etiology is unclear. Diagnostic possibilities include chronic MS and, less likely vasculitis or ischemic microvascular disease but mid the periventriccular involvement being very prominent as well as involvement of the corpus callosum. MS seems more likely. She's also had sudden loss of vision in the eyes, which would go along with optic neuritis recomended - iv solumedrol 1000 mg qdaily for 3 days(intiated on 06/11/23- 06/14/23),vision somewhat improving also need more dm /htn control d/w neurology as well as [facility] Operator Dr Lokesh miguel (patient oph on 06/12/23 )- has right retnipathy and vision loss ,? left eye vision chnages could be multifactorial(as above). her esr,crp neg as well as anticardiolipin antibody IgG and IgM negative,protein C activity normal,protein C antigen pending patient possible MS changes MRI and completed iv solumedrol x 3 days continue dm/htn control currently neurology recomended LP to cofirm diagnosis od MS ,no current transfer need . dvt prophylax: s/c heparin Patient will require ongoing hospitalization for jared ,diabteic and bp control- moniter bp/dm ,vision changes, also close monitoring for renal function and electrolytes.nephro expert follow up. Quality Stroke Does the patient have a stroke diagnosis?: No VTE Prior VTE?: No VTE Risk Level:: Medical - moderate - high VTE Device Contraindication: Treatment Not Indicated VTE Drug Contraindication: N/A - Med Ordered
[2023-06-15 16:15] LABS: Glucose, Whole Blood 155 mg/dL (60-115)
[2023-06-15 19:44] LABS: Homocysteine 22.6 umol/L (<10.4)
[2023-06-15 20:00] LABS: Glucose, Whole Blood 211 mg/dL (60-115)
[2023-06-15] MEDS: Atorvastatin Calcium 80 MG TABLET PO (20:37)
[2023-06-15] MEDS: Acetaminophen 325 MG TABLET 650 MG PO (23:07)
[2023-06-16] VITALS (7 sets, daily range): BP systolic 129–172; BP diastolic 64–89; PULSE 68–92; RESP 18–20; TEMP 36.1–36.7; O2SAT 96–97
[2023-06-16] MEDS: Dextrose 5 % and 0.9 % NaCl 1,000 ML 50 ML IVCONT (00:37)
[2023-06-16 01:01] LABS: Phosphorus 5.5 mg/dL (2.7-4.5)
[2023-06-16] MEDS: Morphine Sulfate Immed Release 15 MG TABLET PO (01:06)
[2023-06-16] MEDS: oxyCODONE HCl Immed Release 5 MG TABLET PO ×3 (05:38→21:02)
[2023-06-16] MEDS: Acetaminophen 325 MG TABLET 650 MG PO ×2 (05:38→21:03)
[2023-06-16 07:00] LABS: Hematocrit 29.2 % (37.0-47.0); Mean Corpuscular HGB Conc 34.2 g/dl (31.0-35.0); Mean Corpuscular Hemoglobin 32.1 pg (27.0-33.0); Mean Corpuscular Volume 93.6 fL (80.0-98.0); Mean Platelet Volume 9.8 fL (9.4-12.3); Platelet Count 372 X10*3/uL (160-400); Red Blood Count 3.12 X10*6/uL (4.20-5.50); Red Cell Distribution Width 14.6 % (11.0-16.0); White Blood Count 11.4 X10*3/uL (4.8-10.8)
[2023-06-16 07:11] LABS: Prothrombin Time 11.6 SEC (11.1-13.3)
[2023-06-16 07:26] LABS: Anion Gap 15 (12-20); Blood Urea Nitrogen 86 mg/dL (9-16); Calcium 7.2 mg/dL (8.4-10.2); Carbon Dioxide 22 mmol/L (22-29); Chloride 100 mmol/L (96-108); Creatinine Clr Calc Pharmacy 15.7; Estimated Glomerular Filt Rate 8; Glucose Random 174 mg/dL (60-115); Potassium 4.2 mmol/L (3.3-5.1); Sodium 133 mmol/L (135-145)
[2023-06-16 07:40] LABS: Vitamin D 25-OH Total 13.5 ng/mL (>30)
[2023-06-16 07:46] LABS: Glucose, Whole Blood 169 mg/dL (60-115)
[2023-06-16] MEDS: hydrALAZINE HCl 50 MG TABLET 100 MG PO ×3 (08:38→21:02)
[2023-06-16] MEDS: Sodium Bicarbonate 650 MG TABLET 1300 MG PO ×3 (08:38→21:02)
[2023-06-16] MEDS: carvediloL 25 MG TABLET PO ×2 (08:39→21:03)
[2023-06-16] MEDS: NIFEdipine ER 90 MG TAB.ER.24 PO ×2 (08:39→21:03)
[2023-06-16] MEDS: Tamsulosin HCL 0.4 MG CAPSULE PO (08:39)
[2023-06-16] MEDS: 0.9 % Sodium Chloride Flush 3 ML SYRINGE IVFLUSH ×2 (08:41→21:03)
--- NOTE | 2023-06-16 09:53 | P.PNNP_ITS ---
Subjective Subjective Date of Service: 06/16/23 Interval history: jared on ckd Pt c/o gen edema No CP Not feeling well Physical Exam 2 Vital Signs: Vital Signs: Last Vital Signs Temp 97.1 F 06/16/23 07:38 Pulse 71 06/16/23 07:38 Resp 20 06/16/23 07:38 BP 148/82 H 06/16/23 07:38 Pulse Ox 97 06/16/23 07:38 O2 Del Method Room Air 06/16/23 07:38 BMI result Body Mass Index 33.9 Appearance: Alert.? Oriented X3.?tired cvs: [id number], [id number] . res: clear to auscultation ,no rhonchii or wheezing abd: no rebound or guarding ,nt, bs present. ext pulses present , no cyanosis. neuro: axo3 , moves all ext Objective Data Labs 06/16/23 06:25 06/16/23 06:25 Labs: Laboratory Results - last 24 hr 06/09/23 06/15/23 06/15/23 07:40 06:29 11:06 WBC RBC Hgb Hct MCV MCH MCHC RDW Plt Count MPV Absolute Nucleated RBC Nucleated RBC % (auto) PT INR APTT Sodium Potassium Chloride Carbon Dioxide Anion Gap BUN Creatinine Estim Creat Clear Calc Estimated GFR POC Glucose 171 H Random Glucose Calcium Phosphorus 5.5 H 25-OH Vitamin D Total Homocysteine 22.6 H Hold Yellow Top See Note U Random Total Protein Ur Random Sodium Urine Creatinine Urine Microalbumin Microalb/Creat Ratio 06/15/23 06/15/23 06/15/23 16:12 19:56 Unknown WBC RBC Hgb Hct MCV MCH MCHC RDW Plt Count MPV Absolute Nucleated RBC Nucleated RBC % (auto) PT INR APTT Sodium Potassium Chloride Carbon Dioxide Anion Gap BUN Creatinine Estim Creat Clear Calc Estimated GFR POC Glucose 155 H 211 H Random Glucose Calcium Phosphorus 25-OH Vitamin D Total Homocysteine Hold Yellow Top U Random Total Protein 64 H Ur Random Sodium < 20.0 Urine Creatinine 49.80 Urine Microalbumin 447.0 Microalb/Creat Ratio 897.5 H 06/16/23 06/16/23 06:25 07:40 WBC 11.4 H RBC 3.12 L Hgb 10.0 L Hct 29.2 L MCV 93.6 MCH 32.1 MCHC 34.2 RDW 14.6 Plt Count 372 MPV 9.8 Absolute Nucleated RBC 0.000 Nucleated RBC % (auto) 0.0 PT 11.6 INR 1.0 APTT 26.0 Sodium 133 L Potassium 4.2 Chloride 100 Carbon Dioxide 22 Anion Gap 15 BUN 86 H Creatinine 5.66 H* Estim Creat Clear Calc 15.7 Estimated GFR 8 POC Glucose 169 H Random Glucose 174 H Calcium 7.2 L Phosphorus 25-OH Vitamin D Total 13.5 L Homocysteine Hold Yellow Top See Note U Random Total Protein Ur Random Sodium Urine Creatinine Urine Microalbumin Microalb/Creat Ratio Procedures Date of Service Date of Service: 06/16/23 Assessment & Plan Assessment and plan (1) CKD (chronic kidney disease): Status: Acute Plan Assessment and plan (1) Acute kidney injury superimposed on CKD: Status: Acute (2) Malignant hypertension: Status: Acute Plan 1. Acute kidney injury on CKD 4/5 with hyperkalemia - Now ESRD ( eGFR 12 on admission CKD is related to longstanding HTN and renovascular disease. Acute kidney injury in this patient likely secondary to severe renal hypoperfusion/acute tubular injury in the setting of acute coronary syndrome. The BP ranges from hyerptensive emergency to over correction to hypotension also leads to loss of auto- regulation of renal perfusion and subsequent renal ischemia. I looked at the patients U/A. There is no blood on sediment. There is no evidence of a GN on U/A. Urine Sodium also is LOW. Suggesting a hemodynamic renal insult. ALthough she may have a rheumatologic systemic process, with blurry vision, I do not feel there is renal involvement. 2. Hyperkalemia Related to poor GFR and Entresto Also patient is not following a K restricted diet 3. Hypertensive emergency, but now fluctuating between low and high bps 4. Metabolic acidosis 2/2 renal failure RECOMMENDATIONS: Lokelma PRN K >5.0 start NaBicarb 1300mg PO TID NO IVF Bumex 1 mg BID ordered BP meds as ordered PT NPO Permcath today HD in Am- I will arrange Will d/w Medical team d/w Pt and she agtees Time Spent With Patient Time: Total time managing care of this patient today ____ minutes. Progress Note: Quality Stroke Does the patient have a stroke diagnosis?: No
--- NOTE | 2023-06-16 10:47 | P.PNIM_ITS ---
Subjective Subjective Date of Service: 06/17/23 Interval History: f/u on progressive reanla failure, reports diffuse swelling, ithchy skin, vision seems better Physical Exam 2 Vital Signs: Vital Signs: Last Vital Signs Temp 97.1 F 06/16/23 07:38 Pulse 71 06/16/23 07:38 Resp 20 06/16/23 07:38 BP 148/82 H 06/16/23 07:38 Pulse Ox 97 06/16/23 07:38 O2 Del Method Room Air 06/16/23 07:38 BMI result Body Mass Index 33.9 Appearance: Alert.? Oriented X3.?tired cvs: rrr, [id number] . res: clear to auscultation ,no rhonchii or wheezing abd: no rebound or guarding ,nt, bs present. skin: scrtches on skin ext pulses present , no cyanosis. neuro: axo3 , moves all ext Objective Data Active Medications Acetaminophen (Acetaminophen 325 Mg Tablet) 650 mg PO Q6H PRN PRN Reason: Pain, Mild (Pain Scale 1-3) Last Admin: 06/16/23 05:38 Dose: 650 mg Documented By: GIULIANA Albuterol Sulfate (Albuterol Sulfate 90 Mcg 8 Gm Inhaler) 1 puff INHALE QID PRN PRN Reason: Wheezing Atorvastatin Calcium (Atorvastatin Calcium 80 Mg Tablet) 80 mg PO BEDTIME [facility] Last Admin: 06/15/23 20:37 Dose: 80 mg Documented By: GIULIANA Carvedilol (Carvedilol 25 Mg Tablet) 25 mg PO BID [facility]; Protocol Last Admin: 06/16/23 08:39 Dose: 25 mg Documented By: NEDRA Dextrose (Dextrose 50 % 25 Gm/50 Ml Syringe) 25 gm IVPUSH Q15M PRN; Protocol PRN Reason: per Hypoglycemia Standing Ord. Docusate Sodium (Docusate Sodium 100 Mg Capsule) 100 mg PO BID PRN PRN Reason: Constipation Last Admin: 06/14/23 14:59 Dose: 100 mg Documented By: DAQUAN Glucose (Glucose Gel 15 Gm Gel..Gram.) 15 gm PO Q15M PRN; Protocol PRN Reason: per Hypoglycemia Standing Ord. Heparin Sodium (Porcine) (Heparin Sodium,Porcine 5,000 Unit/Ml Vial) 5,000 unit SUBCUT Q8H [facility] Last Admin: 06/16/23 08:37 Dose: Not Given Documented By: NEDRA Non-Admin Reason: Patient Refused Hydralazine HCl (Hydralazine Hcl 50 Mg Tablet) 100 mg PO TID [facility]; Protocol Last Admin: 06/16/23 08:38 Dose: 100 mg Documented By: NEDRA Hydroxyzine HCl (Hydroxyzine Hcl 25 Mg Tablet) 25 mg PO Q8H PRN PRN Reason: anxiety/restlessness Last Admin: 06/15/23 23:07 Dose: 25 mg Documented By: GIULIANA Dextrose/Sodium Chloride (D5ns) 1,000 mls @ 50 mls/hr IVCONT .Q20H [facility] Last Admin: 06/16/23 00:37 Dose: 50 mls/hr Documented By: GIULIANA Insulin Glargine (Insulin Glargine,Hum.Rec.Anlog 100 Unit/Ml 10 Ml Vial) 20 unit SUBCUT DAILY [facility] Last Admin: 06/15/23 07:46 Dose: 20 unit Documented By: DAQUAN Insulin Human Lispro (Insulin Lispro 100 Unit/Ml 3 Ml Vial) 0 unit SUBCUT QIDACHS [facility]; Protocol Last Admin: 06/15/23 20:37 Dose: 4 unit Documented By: GIULIANA Nicotine (Nicotine 21 Mg Patch.Td24) 21 mg TRANSDERMA DAILY [facility] Last Admin: 06/15/23 07:48 Dose: 21 mg Documented By: DAQUAN Nifedipine (Nifedipine Er 90 Mg Tab.Er.24) 90 mg PO BID [facility]; Protocol Last Admin: 06/16/23 08:39 Dose: 90 mg Documented By: NEDRA Omeprazole (Omeprazole 20 Mg Capsule.Dr) 20 mg PO DAILY PRN PRN Reason: heartburn Last Admin: 06/13/23 21:41 Dose: 20 mg Documented By: MINNIE Ondansetron HCl (Ondansetron Hcl 4 Mg/2 Ml Vial) 4 mg IVPUSH Q4H PRN PRN Reason: nausea Last Admin: 06/13/23 10:03 Dose: 4 mg Documented By: DAQUAN Oxycodone HCl (Oxycodone Hcl Immed Release 5 Mg Tablet) 5 mg PO Q6H PRN PRN Reason: Pain, Mild (Pain Scale 1-3) Last Admin: 06/16/23 05:38 Dose: 5 mg Documented By: GIULIANA Sodium Bicarbonate (Sodium Bicarbonate 650 Mg Tablet) 1,300 mg PO TID [facility] Last Admin: 06/16/23 08:38 Dose: 1,300 mg Documented By: NEDRA Sodium Chloride (0.9 % Sodium Chloride Flush 3 Ml Syringe) 3 ml IVFLUSH QSHIFT [facility] Last Admin: 06/16/23 08:41 Dose: 3 ml Documented By: NEDRA Tamsulosin HCl (Tamsulosin Hcl 0.4 Mg Capsule) 0.4 mg PO DAILY [facility] Last Admin: 06/16/23 08:39 Dose: 0.4 mg Documented By: NEDRA Labs 06/16/23 06:25 06/16/23 06:25 Labs: Laboratory Results - last 24 hr 06/09/23 06/15/23 06/15/23 07:40 06:29 11:06 MCV MCH MCHC RDW Plt Count MPV Absolute Nucleated RBC Nucleated RBC % (auto) PT INR APTT Anion Gap Estim Creat Clear Calc Estimated GFR POC Glucose 171 H Random Glucose Calcium Phosphorus 5.5 H 25-OH Vitamin D Total Homocysteine 22.6 H Hold Yellow Top See Note U Random Total Protein Ur Random Sodium Urine Creatinine Urine Microalbumin Microalb/Creat Ratio 06/15/23 06/15/23 06/15/23 16:12 19:56 Unknown MCV MCH MCHC RDW Plt Count MPV Absolute Nucleated RBC Nucleated RBC % (auto) PT INR APTT Anion Gap Estim Creat Clear Calc Estimated GFR POC Glucose 155 H 211 H Random Glucose Calcium Phosphorus 25-OH Vitamin D Total Homocysteine Hold Yellow Top U Random Total Protein 64 H Ur Random Sodium < 20.0 Urine Creatinine 49.80 Urine Microalbumin 447.0 Microalb/Creat Ratio 897.5 H 06/16/23 06/16/23 06:25 07:40 MCV 93.6 MCH 32.1 MCHC 34.2 RDW 14.6 Plt Count 372 MPV 9.8 Absolute Nucleated RBC 0.000 Nucleated RBC % (auto) 0.0 PT 11.6 INR 1.0 APTT 26.0 Anion Gap 15 Estim Creat Clear Calc 15.7 Estimated GFR 8 POC Glucose 169 H Random Glucose 174 H Calcium 7.2 L Phosphorus 25-OH Vitamin D Total 13.5 L Homocysteine Hold Yellow Top See Note U Random Total Protein Ur Random Sodium Urine Creatinine Urine Microalbumin Microalb/Creat Ratio Assessment and Plan (1) White matter disease: Status: Acute (2) Hyperglycemia: Status: Acute Plan 43-year-old female with past medical history significant for essential hypertension, CKD on transplant list who presented complaining of chest pain, elevelated troponin I, SBP of 240 and MAYURI on CKD HTN emergency/ uncontrolled HTN--overall BP has improved -continue Nifedipine, Coreg, and Hydralazine. -avoid Low BPs Nstemi, treated with IV heparin for 48, medical management with ASA, Statin and Plavix ( on hold for LP) -echo no WMA Mayuri on CKD stage III B--there has been no renal recovery and increase fluid retention, early uremic symptoms wih pruritis -Will be initiated on HD once Temp catheter inserted, Perm Cath requested today, Nephrology following Hyponatermia--chronic and stable. DMII with hyperglycemia, blood sugars are better -continue Lantus + SSI Urinary retention : added flomax she refused [facility] uriology consult Visual changes known right retinopathy and visual loss, left eyes changes (decrease vision) etiology unclear but conncer for MS in light of extensive white disease on MRI -Neurology has recommended High dose steroid x 3 days, LP to be done once off Plavix for 5 days eye changes : question multifactorial {has retinopathy(dm/htn)- seen by dr lokesh miguel last month } says somewhat imporoving vision , can see me better today Exam on both temporal-no tenderness on palpation,ESR/crp are normal(06/10/23), eye exam/pressure seems fine (please see my 06/10/23 note) carotid dupplex: seems fine. d/w neurology ct head shows ch stroke changes mri:Again there is relatively extensive chronic white matter disease with a periventricular predominant distribution. There is also chronic disease involving the basal ganglia, thalami, and conchita. One of the callosal lesions located within the central portion of the genu.patient ESR and CRP normal , anticardiolipin antibody IgG and IgM negative,protein C activity normal,protein C antigen pending, mri reviewed . as per neuro note: She has extensive white matter disease and that was first picked up in April after she was evaluated in the office in her current MRIs unchanged. The etiology is unclear. Diagnostic possibilities include chronic MS and, less likely vasculitis or ischemic microvascular disease but mid the periventriccular involvement being very prominent as well as involvement of the corpus callosum. MS seems more likely. She's also had sudden loss of vision in the eyes, which would go along with optic neuritis Quality Stroke Does the patient have a stroke diagnosis?: No VTE Prior VTE?: No VTE Risk Level:: Medical - moderate - high VTE Device Contraindication: Treatment Not Indicated VTE Drug Contraindication: N/A - Med Ordered
[2023-06-16 11:20] LABS: Glucose, Whole Blood 169 mg/dL (60-115)
[2023-06-16] MEDS: ondansetron HCL 4 MG/2 ML VIAL IVPUSH (11:57)
[2023-06-16] MEDS: Insulin Glargine,Hum.rec.anlog 100 UNIT/ML 10 ML VIAL 20 UNIT SUBCUT (14:24)
[2023-06-16 16:25] LABS: Glucose, Whole Blood 263 mg/dL (60-115)
[2023-06-16] MEDS: Insulin Lispro 100 UNIT/ML 3 ML VIAL SUBCUT ×2 (16:38→21:01)
[2023-06-16] MEDS: Nicotine 21 MG PATCH.TD24 TRANSDERMA (16:38)
[2023-06-16 16:43] LABS: Urea, Random Urine 482 mg/dL
[2023-06-16 19:49] LABS: Glucose, Whole Blood 159 mg/dL (60-115)
[2023-06-16] MEDS: Atorvastatin Calcium 80 MG TABLET PO (21:02)
[2023-06-16] MEDS: hydrOXYzine HCL 25 MG TABLET PO (21:02)
[2023-06-17] VITALS (7 sets, daily range): BP systolic 115–172; BP diastolic 56–88; PULSE 73–94; RESP 16–20; TEMP 36.5–37; O2SAT 94–98
[2023-06-17] MEDS: ondansetron HCL 4 MG/2 ML VIAL IVPUSH (00:32)
[2023-06-17] MEDS: oxyCODONE HCl Immed Release 5 MG TABLET PO ×4 (03:17→21:33)
[2023-06-17] MEDS: Acetaminophen 325 MG TABLET 650 MG PO ×3 (03:17→20:23)
[2023-06-17] MEDS: hydrOXYzine HCL 25 MG TABLET PO ×2 (06:03→20:23)
[2023-06-17 06:59] LABS: Parathyroid Hormone Intact 624.3 pg/mL (8.7-77.1)
[2023-06-17 07:43] LABS: Glucose, Whole Blood 181 mg/dL (60-115)
[2023-06-17] MEDS: Tamsulosin HCL 0.4 MG CAPSULE PO (08:10)
[2023-06-17] MEDS: carvediloL 25 MG TABLET PO ×2 (08:10→20:23)
[2023-06-17] MEDS: Insulin Lispro 100 UNIT/ML 3 ML VIAL SUBCUT ×3 (08:10→20:24)
[2023-06-17] MEDS: Sodium Bicarbonate 650 MG TABLET 1300 MG PO ×3 (08:10→20:23)
[2023-06-17] MEDS: NIFEdipine ER 90 MG TAB.ER.24 PO ×2 (08:10→20:23)
[2023-06-17] MEDS: hydrALAZINE HCl 50 MG TABLET 100 MG PO ×3 (08:10→20:23)
[2023-06-17] MEDS: 0.9 % Sodium Chloride Flush 3 ML SYRINGE IVFLUSH ×3 (08:11→20:26)
--- NOTE | 2023-06-17 11:11 | P.PNIM_ITS ---
Subjective Subjective Date of Service: 06/17/23 Interval History: f/u on progressive reanla failure, anxious about still been in the hospital. They could not place permacath yesterday Physical Exam 2 Vital Signs: Vital Signs: Last Vital Signs Temp 98.3 F 06/17/23 07:36 Pulse 74 06/17/23 09:00 Resp 20 06/17/23 07:36 BP 133/67 06/17/23 09:00 Pulse Ox 98 06/17/23 07:36 O2 Del Method Room Air 06/17/23 07:36 BMI result Body Mass Index 33.9 Appearance: Alert.? Oriented X3.?tired cvs: rrr, [id number] . res: clear to auscultation ,no rhonchii or wheezing abd: no rebound or guarding ,nt, bs present. skin: scrtches on skin ext pulses present , no cyanosis. neuro: axo3 , moves all ext Objective Data Active Medications Acetaminophen (Acetaminophen 325 Mg Tablet) 650 mg PO Q6H PRN PRN Reason: Pain, Mild (Pain Scale 1-3) Last Admin: 06/17/23 03:17 Dose: 650 mg Documented By: YAKOV Albuterol Sulfate (Albuterol Sulfate 90 Mcg 8 Gm Inhaler) 1 puff INHALE QID PRN PRN Reason: Wheezing Atorvastatin Calcium (Atorvastatin Calcium 80 Mg Tablet) 80 mg PO BEDTIME [facility] Last Admin: 06/16/23 21:02 Dose: 80 mg Documented By: AYKOV Carvedilol (Carvedilol 25 Mg Tablet) 25 mg PO BID [facility]; Protocol Last Admin: 06/17/23 08:10 Dose: 25 mg Documented By: ANDRIY Dextrose (Dextrose 50 % 25 Gm/50 Ml Syringe) 25 gm IVPUSH Q15M PRN; Protocol PRN Reason: per Hypoglycemia Standing Ord. Docusate Sodium (Docusate Sodium 100 Mg Capsule) 100 mg PO BID PRN PRN Reason: Constipation Last Admin: 06/14/23 14:59 Dose: 100 mg Documented By: DAQUAN Glucose (Glucose Gel 15 Gm Gel..Gram.) 15 gm PO Q15M PRN; Protocol PRN Reason: per Hypoglycemia Standing Ord. Heparin Sodium (Porcine) (Heparin Sodium,Porcine 5,000 Unit/Ml Vial) 5,000 unit SUBCUT Q8H [facility] Last Admin: 06/16/23 23:16 Dose: Not Given Documented By: YAKOV Non-Admin Reason: Patient Refused Hydralazine HCl (Hydralazine Hcl 50 Mg Tablet) 100 mg PO TID [facility]; Protocol Last Admin: 06/17/23 08:10 Dose: 100 mg Documented By: ANDRIY Hydroxyzine HCl (Hydroxyzine Hcl 25 Mg Tablet) 25 mg PO Q8H PRN PRN Reason: anxiety/restlessness Last Admin: 06/17/23 06:03 Dose: 25 mg Documented By: YAKOV Insulin Glargine (Insulin Glargine,Hum.Rec.Anlog 100 Unit/Ml 10 Ml Vial) 20 unit SUBCUT DAILY [facility] Last Admin: 06/16/23 14:24 Dose: 20 unit Documented By: NEDRA Insulin Human Lispro (Insulin Lispro 100 Unit/Ml 3 Ml Vial) 0 unit SUBCUT QIDACHS [facility]; Protocol Last Admin: 06/17/23 08:10 Dose: 2 unit Documented By: ANDRIY Nicotine (Nicotine 21 Mg Patch.Td24) 21 mg TRANSDERMA DAILY [facility] Last Admin: 06/16/23 16:38 Dose: 21 mg Documented By: NEDRA Nifedipine (Nifedipine Er 90 Mg Tab.Er.24) 90 mg PO BID [facility]; Protocol Last Admin: 06/17/23 08:10 Dose: 90 mg Documented By: ANDRIY Omeprazole (Omeprazole 20 Mg Capsule.Dr) 20 mg PO DAILY PRN PRN Reason: heartburn Last Admin: 06/13/23 21:41 Dose: 20 mg Documented By: MINNIE Ondansetron HCl (Ondansetron Hcl 4 Mg/2 Ml Vial) 4 mg IVPUSH Q4H PRN PRN Reason: nausea Last Admin: 06/17/23 00:32 Dose: 4 mg Documented By: YAKOV Oxycodone HCl (Oxycodone Hcl Immed Release 5 Mg Tablet) 5 mg PO Q6H PRN PRN Reason: Pain, Severe (Pain Scale 7-10) Last Admin: 06/17/23 09:20 Dose: 5 mg Documented By: ANDRIY Sodium Bicarbonate (Sodium Bicarbonate 650 Mg Tablet) 1,300 mg PO TID [facility] Last Admin: 06/17/23 08:10 Dose: 1,300 mg Documented By: ANDRIY Sodium Chloride (0.9 % Sodium Chloride Flush 3 Ml Syringe) 3 ml IVFLUSH QSHIFT [facility] Last Admin: 06/17/23 08:11 Dose: 3 ml Documented By: ANDRIY Tamsulosin HCl (Tamsulosin Hcl 0.4 Mg Capsule) 0.4 mg PO DAILY [facility] Last Admin: 06/17/23 08:10 Dose: 0.4 mg Documented By: ANDRIY Labs 06/16/23 06:25 06/16/23 06:25 Labs: Laboratory Results - last 24 hr 06/13/23 06/16/23 06/16/23 12:10 11:07 16:21 Hold Purple Top POC Glucose 169 H 263 H PTH Intact Ur Random Urea 482 06/16/23 06/17/23 06/17/23 19:42 06:03 07:40 Hold Purple Top SEE NOTE POC Glucose 159 H 181 H PTH Intact 624.3 H Ur Random Urea Assessment and Plan (1) White matter disease: Status: Acute (2) Hyperglycemia: Status: Acute Plan 43-year-old female with past medical history significant for essential hypertension, CKD on transplant list who presented complaining of chest pain, elevelated troponin I, SBP of 240 and MAYURI on CKD HTN emergency/ uncontrolled HTN--overall BP has improved -continue Nifedipine, Coreg, and Hydralazine. -avoid Low BPs Nstemi, treated with IV heparin for 48, medical management with ASA, Statin and Plavix ( on hold for LP) -echo no WMA Mayuri on CKD stage III B--there has been no renal recovery and increase fluid retention, early uremic symptoms wih pruritis -Will be initiated on HD once Temp catheter inserted, Perm Cath requested today, Nephrology following Hyponatermia--chronic and stable. DMII with hyperglycemia, blood sugars are better -continue Lantus + SSI (hold while NPO) Urinary retention : added flomax she refused [facility] uriology consult Visual changes known right retinopathy and visual loss, left eyes changes (decrease vision) etiology unclear but conncer for MS in light of extensive white disease on MRI -Neurology has recommended High dose steroid x 3 days, LP to be done once off Plavix for 5 days eye changes : question multifactorial {has retinopathy(dm/htn)- seen by dr lokesh miguel last month } says somewhat imporoving vision , can see me better today Exam on both temporal-no tenderness on palpation,ESR/crp are normal(06/10/23), eye exam/pressure seems fine (please see my 06/10/23 note) carotid dupplex: seems fine. d/w neurology ct head shows ch stroke changes mri:Again there is relatively extensive chronic white matter disease with a periventricular predominant distribution. There is also chronic disease involving the basal ganglia, thalami, and conchita. One of the callosal lesions located within the central portion of the genu.patient ESR and CRP normal , anticardiolipin antibody IgG and IgM negative,protein C activity normal,protein C antigen pending, mri reviewed . as per neuro note: She has extensive white matter disease and that was first picked up in April after she was evaluated in the office in her current MRIs unchanged. The etiology is unclear. Diagnostic possibilities include chronic MS and, less likely vasculitis or ischemic microvascular disease but mid the periventriccular involvement being very prominent as well as involvement of the corpus callosum. MS seems more likely. She's also had sudden loss of vision in the eyes, which would go along with optic neuritis need for inpatient: progressive renal failure with uremic syndrome and need for acute dialysis Quality Stroke Does the patient have a stroke diagnosis?: No VTE Prior VTE?: No VTE Risk Level:: Medical - moderate - high VTE Device Contraindication: Treatment Not Indicated VTE Drug Contraindication: N/A - Med Ordered
--- NOTE | 2023-06-17 11:21 | P.CDIM_ITS ---
PROVIDER RESPONSE TEXT: To clarify, the appropriate diagnosis supported by the clinical indicators: CKD 4 QUERY TEXT: PHYSICIAN'S DOCUMENTATION REQUEST Date of Query: 06/08/2023 12:22 PM EST Patient Name: Angela Streeter Admit Date: 06/07/2023 Dear Noe Suarez, A review of the medical record indicates additional documentation may be needed. Please review below and update the documentation accordingly. Clinical Indicators: Progress note: 3/3 - CKD 3b Nephrology note 3/4 - CKD 4 at baseline Please clarify which of the following accurately represents the patient's renal stage for consistency of documentation: CKD 3b CKD 4 Other Other (explain) Clinically unable to determine (explain) Thank you, Elsy Rodarte, CCS, CDIS Use of terms such as suspected, likely, concern for, or probable (associated with a specific diagnosi s that is being evaluated, monitored, or treated as if it exists) are acceptable and can be coded in the inpatient se tting, when documented at the time of discharge. Please use your independent medical judgment in providing your response. THIS QUERY IS PART OF THE PERMANENT MEDICAL RECORD
[2023-06-17 11:43] LABS: Glucose, Whole Blood 112 mg/dL (60-115)
[2023-06-17] MEDS: Nicotine 21 MG PATCH.TD24 TRANSDERMA (11:46)
--- NOTE | 2023-06-17 11:54 | PM.EVENT ---
Event Note Date of Service: 06/17/23 Event Note: Procedure Note: Right IJ 27 cm Permcath placed using US and Fluoro. Tip at cavoatrial junction. Ok for use. Ken LALA Interventional Radiology Time Spent With Patient Time: Total time managing care of this patient today ____ minutes.
[2023-06-17] MEDS: Insulin Glargine,Hum.rec.anlog 100 UNIT/ML 10 ML VIAL 20 UNIT SUBCUT (11:59)
--- NOTE | 2023-06-17 13:02 | MHC.CM.PN ---
EMR reviewed and per MD rounds, pt is not medically cleared for D/C due to progressive renal failure with uremic syndrome and need for acute dialysis, pt had a permacath placed today.
[2023-06-17] MEDS: MannitoL 12.5 GM/50 ML VIAL IV (14:17)
[2023-06-17 17:14] LABS: Glucose, Whole Blood 168 mg/dL (60-115)
[2023-06-17 19:51] LABS: Glucose, Whole Blood 175 mg/dL (60-115)
[2023-06-17] MEDS: Atorvastatin Calcium 80 MG TABLET PO (20:23)
[2023-06-18] VITALS (7 sets, daily range): BP systolic 131–193; BP diastolic 58–92; PULSE 79–98; RESP 16–20; TEMP 36.3–36.6; O2SAT 94–98
[2023-06-18 04:28] LABS: HBS Num1 177.49 mIU/mL (0-7.99); HBc Num1 0.08 S/CO (0.00-0.79); HBsAGNum1 0.33 S/CO (0.00-0.99); Hepatitis B Core Antibody Nonreactive (Nonreactive); Hepatitis B Surface Antigen Negative (Negative); ~Hepatitis B Surface Antibody REACTIVE (Nonreactive)
[2023-06-18] MEDS: hydrOXYzine HCL 25 MG TABLET PO (04:54)
[2023-06-18] MEDS: oxyCODONE HCl Immed Release 5 MG TABLET PO ×3 (04:54→21:44)
[2023-06-18] MEDS: Acetaminophen 325 MG TABLET 650 MG PO (04:54)
[2023-06-18 07:31] LABS: Glucose, Whole Blood 178 mg/dL (60-115)
[2023-06-18] MEDS: Tamsulosin HCL 0.4 MG CAPSULE PO (08:02)
[2023-06-18] MEDS: Sodium Bicarbonate 650 MG TABLET 1300 MG PO ×3 (08:02→20:11)
[2023-06-18] MEDS: Insulin Lispro 100 UNIT/ML 3 ML VIAL SUBCUT ×3 (08:03→20:18)
[2023-06-18] MEDS: 0.9 % Sodium Chloride Flush 3 ML SYRINGE IVFLUSH ×2 (08:04→17:35)
[2023-06-18] MEDS: Insulin Glargine,Hum.rec.anlog 100 UNIT/ML 10 ML VIAL 20 UNIT SUBCUT (08:05)
[2023-06-18] MEDS: NIFEdipine ER 90 MG TAB.ER.24 PO ×2 (10:39→20:09)
[2023-06-18] MEDS: carvediloL 25 MG TABLET PO ×2 (10:39→20:09)
[2023-06-18] MEDS: hydrALAZINE HCl 50 MG TABLET 100 MG PO ×3 (10:39→20:09)
--- NOTE | 2023-06-18 11:46 | HO.PM.IMPN ---
Subjective Subjective Date of Service: 06/18/23 Interval History: f/u on progressive reanla failure, and started on dilysis yesterday, she feels better toda Physical Exam Vital Signs: Vital Signs: Last Vital Signs Temp 97.6 F 06/18/23 07:25 Pulse 87 06/18/23 07:25 Resp 18 06/18/23 07:25 BP 159/79 H 06/18/23 07:25 Pulse Ox 94 06/18/23 07:25 O2 Del Method Room Air 06/18/23 07:25 BMI result Body Mass Index 33.9 Appearance: Alert.? Oriented X3. cvs: rrr, [id number] . res: clear to auscultation ,no rhonchii or wheezing abd: no rebound or guarding ,nt, bs present. skin: scrtches on skin ext pulses present , no cyanosis. neuro: axo3 , moves all ext Objective Data Active Medications Acetaminophen (Acetaminophen 325 Mg Tablet) 650 mg PO Q6H PRN PRN Reason: Pain, Mild (Pain Scale 1-3) Last Admin: 06/18/23 04:54 Dose: 650 mg Documented By: JAM Albuterol Sulfate (Albuterol Sulfate 90 Mcg 8 Gm Inhaler) 1 puff INHALE QID PRN PRN Reason: Wheezing Atorvastatin Calcium (Atorvastatin Calcium 80 Mg Tablet) 80 mg PO BEDTIME [facility] Last Admin: 06/17/23 20:23 Dose: 80 mg Documented By: JAM Carvedilol (Carvedilol 25 Mg Tablet) 25 mg PO BID [facility]; Protocol Last Admin: 06/18/23 10:39 Dose: 25 mg Documented By: JOCELINE Dextrose (Dextrose 50 % 25 Gm/50 Ml Syringe) 25 gm IVPUSH Q15M PRN; Protocol PRN Reason: per Hypoglycemia Standing Ord. Docusate Sodium (Docusate Sodium 100 Mg Capsule) 100 mg PO BID PRN PRN Reason: Constipation Last Admin: 06/14/23 14:59 Dose: 100 mg Documented By: DAQUAN Glucose (Glucose Gel 15 Gm Gel..Gram.) 15 gm PO Q15M PRN; Protocol PRN Reason: per Hypoglycemia Standing Ord. Heparin Sodium (Porcine) (Heparin Sodium,Porcine 5,000 Unit/Ml Vial) 5,000 unit SUBCUT Q8H [facility] Last Admin: 06/18/23 08:03 Dose: Not Given Documented By: JOCELINE Non-Admin Reason: Patient Refused Hydralazine HCl (Hydralazine Hcl 50 Mg Tablet) 100 mg PO TID [facility]; Protocol Last Admin: 06/18/23 10:39 Dose: 100 mg Documented By: JOCELINE Hydroxyzine HCl (Hydroxyzine Hcl 25 Mg Tablet) 25 mg PO Q8H PRN PRN Reason: anxiety/restlessness Last Admin: 06/18/23 04:54 Dose: 25 mg Documented By: JAM Insulin Glargine (Insulin Glargine,Hum.Rec.Anlog 100 Unit/Ml 10 Ml Vial) 20 unit SUBCUT DAILY [facility] Last Admin: 06/18/23 08:05 Dose: 20 unit Documented By: JOCELINE Insulin Human Lispro (Insulin Lispro 100 Unit/Ml 3 Ml Vial) 0 unit SUBCUT QIDACHS [facility]; Protocol Last Admin: 06/18/23 08:03 Dose: 1 unit Documented By: JOCELINE Nicotine (Nicotine 21 Mg Patch.Td24) 21 mg TRANSDERMA DAILY [facility] Last Admin: 06/18/23 08:06 Dose: Not Given Documented By: JOCELINE Non-Admin Reason: Patient Refused Nifedipine (Nifedipine Er 90 Mg Tab.Er.24) 90 mg PO BID [facility]; Protocol Last Admin: 06/18/23 10:39 Dose: 90 mg Documented By: JOCELINE Omeprazole (Omeprazole 20 Mg Capsule.Dr) 20 mg PO DAILY PRN PRN Reason: heartburn Last Admin: 06/13/23 21:41 Dose: 20 mg Documented By: MINNIE Ondansetron HCl (Ondansetron Hcl 4 Mg/2 Ml Vial) 4 mg IVPUSH Q4H PRN PRN Reason: nausea Last Admin: 06/17/23 00:32 Dose: 4 mg Documented By: COTEMA Oxycodone HCl (Oxycodone Hcl Immed Release 5 Mg Tablet) 5 mg PO Q6H PRN PRN Reason: Pain, Severe (Pain Scale 7-10) Last Admin: 06/18/23 04:54 Dose: 5 mg Documented By: JAM Sodium Bicarbonate (Sodium Bicarbonate 650 Mg Tablet) 1,300 mg PO TID [facility] Last Admin: 06/18/23 08:02 Dose: 1,300 mg Documented By: JOCELINE Sodium Chloride (0.9 % Sodium Chloride Flush 3 Ml Syringe) 3 ml IVFLUSH QSHIFT [facility] Last Admin: 06/18/23 08:04 Dose: 3 ml Documented By: JOCELINE Tamsulosin HCl (Tamsulosin Hcl 0.4 Mg Capsule) 0.4 mg PO DAILY [facility] Last Admin: 06/18/23 08:02 Dose: 0.4 mg Documented By: JOCELINE Labs 06/16/23 06:25 06/16/23 06:25 Labs: Laboratory Results - last 24 hr 06/17/23 06/17/23 06/17/23 15:29 17:10 19:47 POC Glucose 168 H 175 H Hep Bs Antigen Negative Hep Bs Antibody REACTIVE Hep B Core Total Ab Nonreactive 06/18/23 07:26 POC Glucose 178 H Hep Bs Antigen Hep Bs Antibody Hep B Core Total Ab Assessment and Plan (1) White matter disease: Status: Acute (2) Hyperglycemia: Status: Acute Plan 43-year-old female with past medical history significant for essential hypertension, CKD on transplant list who presented complaining of chest pain, elevelated troponin I, SBP of 240 and MAYURI on CKD HTN emergency/ uncontrolled HTN--overall BP has improved -continue Nifedipine, Coreg, and Hydralazine -avoid Low BPs Nstemi, treated with IV heparin for 48, medical management with ASA, Statin and Plavix ( on hold for LP) -echo no WMA, outpatient Cardiology follow-up Mayuri on CKD stage III B--there has been no renal recovery and increase fluid retention, early uremic symptoms wih pruritis -had a PermCath inserted on 06/16 and started hemodialysis thereafter. Hyponatermia--chronic and stable. DMII with hyperglycemia, blood sugars are better -continue Lantus + SSI (hold while NPO) Urinary retention : added flomax she refused montiel uriology consult Visual changes known right retinopathy and visual loss, left eyes changes (decrease vision) etiology unclear but conncer for MS in light of extensive white disease on MRI -Neurology has recommended High dose steroid x 3 days, LP to be done once off Plavix for 5 days eye changes : question multifactorial {has retinopathy(dm/htn)- seen by dr lokesh miguel last month } says somewhat imporoving vision , can see me better today Exam on both temporal-no tenderness on palpation,ESR/crp are normal(06/10/23), eye exam/pressure seems fine (please see my 06/10/23 note) carotid dupplex: seems fine. d/w neurology ct head shows ch stroke changes mri:Again there is relatively extensive chronic white matter disease with a periventricular predominant distribution. There is also chronic disease involving the basal ganglia, thalami, and conchita. One of the callosal lesions located within the central portion of the genu.patient ESR and CRP normal , anticardiolipin antibody IgG and IgM negative,protein C activity normal,protein C antigen pending, mri reviewed . as per neuro note: She has extensive white matter disease and that was first picked up in April after she was evaluated in the office in her current MRIs unchanged. The etiology is unclear. Diagnostic possibilities include chronic MS and, less likely vasculitis or ischemic microvascular disease but mid the periventriccular involvement being very prominent as well as involvement of the corpus callosum. MS seems more likely. She's also had sudden loss of vision in the eyes, which would go along with optic neuritis need for inpatient: progressive renal failure with uremic syndrome and need for acute dialysis Quality Stroke Does the patient have a stroke diagnosis?: No VTE Prior VTE?: No VTE Risk Level:: Medical - moderate - high VTE Device Contraindication: Treatment Not Indicated VTE Drug Contraindication: N/A - Med Ordered
[2023-06-18 12:01] LABS: Glucose, Whole Blood 129 mg/dL (60-115)
[2023-06-18 13:00] LABS: Anion Gap 15 (12-20); Blood Urea Nitrogen 29 mg/dL (9-16); Calcium 8.1 mg/dL (8.4-10.2); Carbon Dioxide 25 mmol/L (22-29); Chloride 100 mmol/L (96-108); Creatinine Clr Calc Pharmacy 33.3; Estimated Glomerular Filt Rate 20; Glucose Random 137 mg/dL (60-115); Potassium 3.5 mmol/L (3.3-5.1); Sodium 136 mmol/L (135-145)
[2023-06-18 16:05] LABS: Glucose, Whole Blood 160 mg/dL (60-115)
--- NOTE | 2023-06-18 16:31 | P.PNNP_ITS ---
Subjective Subjective Date of Service: 06/18/23 Interval history: f/u on progressive reanla failure, and started on dilysis yesterday, she feels better toda Physical Exam 2 Vital Signs: Vital Signs: Last Vital Signs Temp 97.3 F 06/18/23 15:17 Pulse 98 06/18/23 15:17 Resp 20 06/18/23 15:17 BP 184/91 H 06/18/23 15:17 Pulse Ox 98 06/18/23 15:17 O2 Del Method Room Air 06/18/23 15:17 BMI result Body Mass Index 33.9 Appearance: Alert. Oriented X3. tired cvs: rrr, [id number] . res: clear to auscultation ,no rhonchii or wheezing abd: no rebound or guarding ,nt, bs present. ext pulses present , no cyanosis. neuro: axo3 , moves all ext Objective Data Labs 06/16/23 06:25 06/18/23 12:22 Labs: Laboratory Results - last 24 hr 06/17/23 06/17/23 06/17/23 15:29 17:10 19:47 Sodium Potassium Chloride Carbon Dioxide Anion Gap BUN Creatinine Estim Creat Clear Calc Estimated GFR POC Glucose 168 H 175 H Random Glucose Calcium Hep Bs Antigen Negative Hep Bs Antibody REACTIVE Hep B Core Total Ab Nonreactive 06/18/23 06/18/23 06/18/23 07:26 11:56 12:22 Sodium 136 Potassium 3.5 Chloride 100 Carbon Dioxide 25 Anion Gap 15 BUN 29 H Creatinine 2.67 H Estim Creat Clear Calc 33.3 Estimated GFR 20 POC Glucose 178 H 129 H Random Glucose 137 H Calcium 8.1 L D Hep Bs Antigen Hep Bs Antibody Hep B Core Total Ab 06/18/23 16:01 Sodium Potassium Chloride Carbon Dioxide Anion Gap BUN Creatinine Estim Creat Clear Calc Estimated GFR POC Glucose 160 H Random Glucose Calcium Hep Bs Antigen Hep Bs Antibody Hep B Core Total Ab Procedures Date of Service Date of Service: 06/18/23 Assessment & Plan Assessment and plan (1) CKD (chronic kidney disease): Status: Acute (2) Hyperkalemia: Status: Acute Plan Acute kidney injury on CKD 4/5 with hyperkalemia - Now ESRD ( eGFR 12 on admission CKD is related to longstanding HTN and renovascular disease. Acute kidney injury in this patient likely secondary to severe renal hypoperfusion/acute tubular injury in the setting of acute coronary syndrome. The BP ranges from hyerptensive emergency to over correction to hypotension also leads to loss of auto-regulation of renal perfusion and subsequent renal ischemia. patients U/A.- There is no blood on sediment. There is no evidence of a GN on U/A. Urine Sodium also is LOW. Suggesting a hemodynamic renal insult. she has h/o MCTD, however anti dna, pr3, mpo negative 2. Hyperkalemia Related to poor GFR and Entresto Also patient is not following a K restricted diet 3. Hypertensive emergency, but now fluctuating between low and high bps 4. Metabolic acidosis 2/2 renal failure 5. Anemia of chronic disease. 6. Renal artery stenosis. 6. Acute coronary syndrome. 7. 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 she has visual deficits RECOMMENDATIONS: Lokelma PRN K >5.0 NaBicarb 1300mg PO TID NO IVF Bumex 1 mg BID ordered BP meds as ordered - added clonidine today for bp control Permcath thursday HD in [place]- I will arrange Time Spent With Patient Time: Total time managing care of this patient today ____ minutes. Progress Note: Quality Stroke Does the patient have a stroke diagnosis?: No
[2023-06-18] MEDS: cloNIDine HCL 0.2 MG TABLET PO (17:35)
--- NOTE | 2023-06-18 18:44 | PC.NURSE ---
Bldder scanned for 742 ml , pt urinated 250 ml yellow urine , PVR 54 ml . Bladder scanned repeat and reading the same amount 54 ml .
[2023-06-18] MEDS: Labetalol HCL 100 MG/20 ML VIAL 10 MG IVPUSH (19:30)
--- NOTE | 2023-06-18 19:34 | PC.NURSE ---
blood pressure 193/89 , medicated with Labetalol 10 mg IV PRN .
[2023-06-18] MEDS: Atorvastatin Calcium 80 MG TABLET PO (20:09)
[2023-06-18 20:18] LABS: Glucose, Whole Blood 160 mg/dL (60-115)
[2023-06-19 02:57] VITALS: BP 146/76; PULSE 77; RESP 18; TEMP 36.3; O2SAT 97
[2023-06-19] MEDS: 0.9 % Sodium Chloride Flush 3 ML SYRINGE IVFLUSH ×2 (04:01→08:38)
[2023-06-19] MEDS: oxyCODONE HCl Immed Release 5 MG TABLET PO ×2 (04:01→12:32)
[2023-06-19 07:12] VITALS: BP 156/76; PULSE 84; RESP 20; TEMP 36.6; O2SAT 97
[2023-06-19 07:53] LABS: Glucose, Whole Blood 218 mg/dL (60-115)
[2023-06-19] MEDS: Insulin Lispro 100 UNIT/ML 3 ML VIAL SUBCUT (08:34)
[2023-06-19] MEDS: Insulin Glargine,Hum.rec.anlog 100 UNIT/ML 10 ML VIAL 20 UNIT SUBCUT (08:34)
[2023-06-19] MEDS: Nicotine 21 MG PATCH.TD24 TRANSDERMA (08:35)
[2023-06-19 12:00] VITALS: BP 180/86; PULSE 88; RESP 20; TEMP 36.4; O2SAT 98
[2023-06-19 12:27] LABS: Glucose, Whole Blood 119 mg/dL (60-115)
[2023-06-19] MEDS: hydrALAZINE HCl 50 MG TABLET 100 MG PO (12:29)
[2023-06-19] MEDS: Sodium Bicarbonate 650 MG TABLET 1300 MG PO (12:29)
[2023-06-19] MEDS: Tamsulosin HCL 0.4 MG CAPSULE PO (12:30)
[2023-06-19] MEDS: carvediloL 25 MG TABLET PO (12:30)
[2023-06-19] MEDS: NIFEdipine ER 90 MG TAB.ER.24 PO (12:30)
[2023-06-19] MEDS: cloNIDine HCL 0.2 MG TABLET PO (12:30)
--- NOTE | 2023-06-19 13:18 | PM.DS ---
DS: Providers Provider Date of Service: 06/19/23 Date of admission: 06/07/23 10:58 Primary care physician: TWILA Benitez Consults: 06/07/23 13:49 Consult to Cardiology Routine Consulting Provider: [facility] Reason for consultation: elevated trop Has provider been notified: Yes 06/07/23 13:50 Consult to Nephrology Routine Consulting Provider: Camden Duarte Reason for consultation: CKD/Hypertensive urgency Has provider been notified: Yes 06/11/23 08:08 Consult to Neurology Routine Consulting Provider: [facility] Reason for consultation: vision changes ,abnormal mri Has provider been notified: No 06/12/23 11:55 Consult to Critical Care Routine Consulting Provider: Jamar Jeffrey Reason for consultation: level of care Has provider been notified: No 06/14/23 09:14 Consult to Urology Routine Consulting Provider: [facility] Reason for consultation: Urinary retention Has provider been notified: No 06/15/23 10:26 Consult to Neurology Routine Consulting Provider: [facility] Reason for consultation: suspected MS Has provider been notified: No DS: Diagnosis Discharge Diagnosis (1) CKD (chronic kidney disease): Status: Acute (2) Hyperkalemia: Status: Acute DS: Summary Hospital Course Hospital Course: admission HPI Chief Complaint: Hypertension with chest pain 43-year-old female with significant CKD, currently on the transplant list who is brought in by EMS this morning for onset of chest pain that radiated into the right arm and then into the left with associated nausea, vomiting and she notes that she has been experiencing off and on bilateral lower extremity edema which is new for her and states that typically she just gets the water in her lungs. EMS reports that her blood pressure systolic was 240, patient reports that she is taking all of her prescribed medications to include diuretics and blood pressure. Patient received nitro and route in at this time states that she is feeling much better and has had no further episodes of nausea or vomiting. Patient denies alcohol or drug use but is an everyday smoker. In the emergency room given 1 round of her home meds and admission requested Hospital coures. HTN emergency/ uncontrolled HTN--She presented with very high blood presssures with chest pain, in general her blood pressure is difficult to control on multiple including Entresto, Nifedipine, Coreg, and Hydralazine--Entreso dose has been increased, hydralazine increased, and most recently Clonidine has been added with overall better blood pressure and given that she has been startedon dialysis that should also help the blood pressure. Aldactone was discontinued due to hyperkalemia Nstemi, she was treated with IV heparin for 48, and further medical management with ASA, Lipitor and Plavix -echo showed no WMA, to follow up with cardiology on outpatient basis MAYURI on CKD stage III B--there has been no renal recovery and increase fluid retention, early uremic symptoms wih pruritis so a decision was made to start hemodilaysis and a PermCath inserted on 06/16 and started hemodialysis thereafter, so far has been dialysed twice on 06/16 and 06/18, last potassium on 06/17 3.5, Cre 2.69 and BUN 29, she is making some urine. Outpatient dialysis at [facility] first shift, she is aware Hyponatermia--chronic and stable, last sodium 135 DMII with hyperglycemia, to continue Lantus, short acting and resume Trucility Urinary retention :Was seen by urology, she declined a Albarran cath. Flomax started Visual changes known right retinopathy and visual loss, left eyes changes (decrease vision) etiology unclear but conncer for MS in light of extensive white disease on MRI -Neurology recommended High dose steroid x 3 days, LP to be done once off Plavix for 5 days, the LP has not yet been done and at this point she prefers having it done on outpatient basis. She should follow up with her eye doctor and neuroligst eye changes : question multifactorial {has retinopathy(dm/htn)- seen by dr lokesh miguel last month } says somewhat imporoving vision , can see me better today Exam on both temporal-no tenderness on palpation,ESR/crp are normal(06/10/23), eye exam/pressure seems fine (please see my 06/10/23 note) carotid dupplex: seems fine. d/w neurology ct head shows ch stroke changes mri:Again there is relatively extensive chronic white matter disease with a periventricular predominant distribution. There is also chronic disease involving the basal ganglia, thalami, and conchita. One of the callosal lesions located within the central portion of the genu.patient ESR and CRP normal , anticardiolipin antibody IgG and IgM negative,protein C activity normal,protein C antigen pending, mri reviewed . as per neuro note: She has extensive white matter disease and that was first picked up in April after she was evaluated in the office in her current MRIs unchanged. The etiology is unclear. Diagnostic possibilities include chronic MS and, less likely vasculitis or ischemic microvascular disease but mid the periventriccular involvement being very prominent as well as involvement of the corpus callosum. MS seems more likely. She's also had sudden loss of vision in the eyes, which would go along with optic neuritis Time Attestation Discharge Coordination Time (in mins): 45 Quality: Safe Use of Opioids Does Pt have an Active Cancer Diagnosis on the Problem List?: No Quality: Stroke Does the patient have a stroke diagnosis?: No Physical Exam Vital Signs: Vital Signs: Last Vital Signs Temp 97.6 F 06/19/23 12:00 Pulse 88 06/19/23 12:00 Resp 20 06/19/23 12:00 BP 180/86 H 06/19/23 12:00 Pulse Ox 98 06/19/23 12:00 O2 Del Method Room Air 06/19/23 12:00 BMI result Body Mass Index 33.9 DS: Data Data Completed and Pending Completed studies during hospitalization [Text1]: Procedures Drainage of Left Knee Joint, Percutaneous Approach (01/07/21) Labs on day of discharge: Laboratory Results - last 24 hr 06/18/23 06/18/23 06/19/23 16:01 20:15 07:09 POC Glucose 160 H 160 H 218 H 06/19/23 12:15 POC Glucose 119 H Discharge Plan Discharge Anticipated Discharge Date/Time: 06/09/23 13:22 Patient Disposition: Home, Self-Care Discharge Diagnosis: htn uncontrolled ,nsetmi, progressive renal failure Referrals: [facility] [Other] - 1 Week Mauricio Nolasco FNP-ROX [Primary Care Provider] - 1 Week Jermaine Monzon MD [Physician] - 1 Week Discharge Medications: New (DME) FreeStyle Lite Strips Strip Qty: 100 0RF Rx Instructions: Test four times a day or as directed. (DME) blood-glucose meter [FreeStyle Lite Meter] Kit Qty: 1 0RF Rx Instructions: As Directed (DME) pen needle, diabetic 32 gauge x 1/4 needle Qty: 100 0RF Rx Instructions: Use four times a day or as directed. (DME) lancets [FreeStyle Lancets] 28 gauge misc Qty: 100 0RF Rx Instructions: Test four times a day or as directed. clopidogrel [Plavix] 75 mg tablet 75 mg PO DAILY Qty: 30 0RF alcohol swabs Pads, Medicated 1 pad TOPICAL QIDACHS Qty: 100 0RF Rx Instructions: Use four times a day or as directed. tamsulosin 0.4 mg Capsule 0.4 mg PO DAILY Qty: 90 0RF hydralazine 100 mg tablet 100 mg PO TID Qty: 270 0RF Entresto 24-26 mg Tablet 1 tab PO BID Qty: 30 0RF Protocol: Hold for SBP< HOLD for SBP < : 90 famotidine 20 mg tablet 20 mg PO DAILY Qty: 60 0RF insulin glargine [Lantus Solostar U-100 Insulin] 100 unit/mL (3 mL) insulin pen 20 unit SUBCUT DAILY Qty: 15 0RF sodium bicarbonate 650 mg Tablet 1,300 mg PO TID Qty: 90 0RF clonidine HCl 0.2 mg Tablet 0.2 mg PO BID Qty: 180 0RF Protocol: Hold for SBP< HOLD for SBP < : 90 insulin lispro [Humalog KwikPen Insulin] 100 unit/mL insulin pen See Rx Instructions .ROUTE .COMPLEX Qty: 15 0RF Rx Instructions: BG <111 0 units, 111-150 - 0 units, 151-200 2 units, 201-250 4 units, 251-300 6 units, 301-350 8 units, >350 10 units Continued (DME) lancets [FreeStyle Lancets] 28 gauge misc See Rx Instructions .Route Qty: 100 4RF Rx Instructions: As directed- tests 4X/day (DME) blood pressure test kit-large Kit See Rx Instructions .Route Qty: 1 0RF Rx Instructions: daily use albuterol sulfate 90 mcg/actuation HFA aerosol inhaler 1 inh inhalation QID PRN (Reason: Wheezing) 30 Days Qty: 8.5 1RF carvedilol 25 mg tablet 50 mg PO BID nifedipine 90 mg tablet extended release 24hr 1 tab PO BID Trulicity 1.5 mg/0.5 mL Pen Injector 1.5 mg SUBCUT TH (DME) blood-glucose meter [FreeStyle Lite Meter] Kit See Rx Instructions .Route Qty: 1 0RF Rx Instructions: As directed tests 4 X/day (DME) FreeStyle Lite Strips Strip See Rx Instructions .Route Qty: 100 5RF Rx Instructions: As directed- tests 4X/day Discontinued aspirin 81 mg tablet,delayed release (DR/EC) 81 mg PO DAILY 90 Days Qty: 90 1RF torsemide 20 mg tablet 2 tab PO BID PRN (Reason: Edema) omeprazole 20 mg capsule,delayed release(DR/EC) 20 mg PO QAM PRN (Reason: heartburn) Entresto 97-103 mg tablet 1 tab PO BID spironolactone 100 mg tablet 100 mg PO DAILY Discharge Orders: Discharge Order (Routine); Ordered 06/19/23 Ordered By: Esteban Mejía Diet: Advance to usual diet Activity on Discharge: As tolerated Stand Alone Forms: Patient Portal Discharge page Other Ambulatory Orders: Basic Metabolic Panel (Routine) Timeframe: 1 Week Facility: [facility] - Location: Laboratory Ordered By: Kenn rTavis Hemoglobin A1c (Routine) Timeframe: 1 Week Facility: [facility] - Location: Laboratory Ordered By: Kenn Travis Liver Panel (Routine) Timeframe: 1 Week Facility: [facility] - Location: Laboratory Ordered By: Kenn Travis Care Plan Goals: Control of blood pressure control of renal failure through dialysis Further testing including LP for MS work up Health Concerns: difficult to control hypertension NSTEMI progressive kidney disease and now on dialysis chronic neurological symptom with concern for possible MS chronic visual problems urinary retention Plan of Treatment: Please take all your blood pressure medication as recommended including (Hydralzine, Nifedipine, Clonidine, Entresto ) see dose above Use insulin pen for diabetes Lantus long acting and humalog short acting Follow up with dialysis as arranged Follow up with your primary care provider Follow up with Neurolgist on outpatient basis Lumbar puncture will be arranged on outpatient basis, you will need to be off Plavix 5 dys before the procedure Assessment: as above.
--- NOTE | 2023-06-19 13:49 | MHC.CM.PN ---
Second IMM given, pt is medically cleared for D/C home self-care with new HD at [facility]-- via [facility]. Pts friend will transport her home today.
[2023-06-19 15:07] VITALS: BP 154/74; PULSE 77; RESP 18; TEMP 36.5; O2SAT 97
--- NOTE | 2023-06-24 11:00 | P.CDIM_ITS ---
PROVIDER RESPONSE TEXT: To clarify, the appropriate diagnosis supported by the clinical indicators: ESRD - CKD V now requiring permanent dialysis and/or transplant QUERY TEXT: PHYSICIAN'S DOCUMENTATION REQUEST Date of Query: 06/18/2023 12:48 PM EDT Patient Name: Angela Streeter Admit Date: 06/07/2023 Dear Esteban Mejía, A review of the medical record indicates additional documentation may be needed. Please review below and update the documentation accordingly. Clinical Indicators: Nephrology progress note dated 06/15 - Acute kidney injury on CKD 4/5 with hyperkalemia - now ESRD. Progress notes 06/16 & 06/17 - MAYURI on CKD Stage III B - there has been no renal recovery and increase f luid retention, early uremic symptoms with pruritis -had a PermCath inserted 06/16 and started hemodialysis thereafter. Query response dated 06/16 - CKD 4 Please clarify which of the following accurately represents the patient's renal status: CKD, please provide stage Stage III B, Stage 4 ESRD - CKD V now requiring permanent dialysis and/or transplant Other (explain) Clinically unable to determine (explain) Thank you, Elsy Rodarte, CCS, CDIS Use of terms such as suspected, likely, concern for, or probable (associated with a specific diagnosi s that is being evaluated, monitored, or treated as if it exists) are acceptable and can be coded in the inpatient se tting, when documented at the time of discharge. Please use your independent medical judgment in providing your response. THIS QUERY IS PART OF THE PERMANENT MEDICAL RECORD
== END 2023-06-19 16:16 | disposition home or self-care (01) | DRG 682 ==
LOC: HO.ED 10:03 → HO.EDOVER 11:02 → HO.IMC 06-08 19:45
PROVIDERS: Internal Medicine; Internal Medicine Nephrology; Internal Medicine Pulmonary Disease; Student in an Organized Health Care Education/Training Program; Admitting Provider Hospitalist; Emergency Provider Student in an Organized Health Care Education/Training Program; PCP Nurse Practitioner Family; Visit Provider Internal Medicine
PROC: 0JH63XZ Insertion of Tunneled Vascular Access Device into Chest Subcutaneous Tissue and Fascia, Percutaneous Approach (ICD-10-PCS; principal; 2023-06-17 10:30)
DX: I12.9 Hypertensive chronic kidney disease with stage 1 through stage 4 chronic kidney disease, or unspecified chronic kidney disease (principal); I21.4 Non-ST elevation (NSTEMI) myocardial infarction; E87.1 Hypo-osmolality and hyponatremia; E87.20 Acidosis, unspecified; I16.1 Hypertensive emergency; N17.9 Acute kidney failure, unspecified; N18.4 Chronic kidney disease, stage 4 (severe); H46.9 Unspecified optic neuritis; G35 Multiple sclerosis; R33.9 Retention of urine, unspecified; E11.65 Type 2 diabetes mellitus with hyperglycemia; D63.1 Anemia in chronic kidney disease; E87.5 Hyperkalemia; I70.1 Atherosclerosis of renal artery; E11.22 Type 2 diabetes mellitus with diabetic chronic kidney disease; I34.0 Nonrheumatic mitral (valve) insufficiency; I27.20 Pulmonary hypertension, unspecified; F17.210 Nicotine dependence, cigarettes, uncomplicated; Z76.82 Awaiting organ transplant status; Z71.6 Tobacco abuse counseling; Z79.4 Long term (current) use of insulin; Z79.85 Long-term (current) use of injectable non-insulin antidiabetic drugs; Z79.899 Other long term (current) drug therapy
CPT/HCPCS: 36415; 36558; 36600; 70450; 70551; 71045; 76770; 76775; 76937; 80048; 80053; 81001; 81003; 82040; 82043; 82306; 82570; 82803; 82947; 83036; 83090; 83735; 83880; 83970; 84100; 84156; 84300; 84484; 84540; 85025; 85027; 85300; 85301; 85302; 85303; 85306; 85610; 85652; 85730; 86140; 86147; 86704; 86706; 87340; 90999; 93005; 93306; 93880; 93975; 99285; C1769; J0736; J1644; J1650; J1920; J2060; J2150; J2270; J2405; J2920; J2930; Q9957

== ENCOUNTER → 2023-06-07 07:07 | Outpatient (BNV) | payer MEDICARE, MEDICAID, SELFPAY ==
[2023-05-18 13:38] VITALS: BP 190/120; BMI 29.0
== END ==
PROVIDERS: Admitting Provider Hospitalist; Emergency Provider Student in an Organized Health Care Education/Training Program; PCP Nurse Practitioner Family; Visit Provider Internal Medicine
DX: R94.31 Abnormal electrocardiogram [ECG] [EKG] (principal)
CPT/HCPCS: 93010

== ENCOUNTER 2023-06-07 10:58 | Outpatient (BNV) | payer MEDICARE, MEDICAID, SELFPAY ==
[2023-05-18 13:38] VITALS: BP 190/120; BMI 29.0
== END 2023-06-17 10:50 ==
PROVIDERS: Admitting Provider Hospitalist; Emergency Provider Student in an Organized Health Care Education/Training Program; PCP Nurse Practitioner Family; Visit Provider Physician Assistant Surgical
DX: N18.6 End stage renal disease (principal)
CPT/HCPCS: 36558; 76937; 77001

== ENCOUNTER 2023-06-07 10:58 | Outpatient (BNV) | payer MEDICARE, MEDICAID, SELFPAY ==
[2023-05-18 13:38] VITALS: BP 190/120; BMI 29.0
== END 2023-06-08 07:00 ==
PROVIDERS: Admitting Provider Hospitalist; Emergency Provider Student in an Organized Health Care Education/Training Program; PCP Nurse Practitioner Family; Visit Provider Internal Medicine Cardiovascular Disease
DX: I21.4 Non-ST elevation (NSTEMI) myocardial infarction (principal); I36.1 Nonrheumatic tricuspid (valve) insufficiency
CPT/HCPCS: 93306

== ENCOUNTER → 2023-06-07 10:58 | Outpatient (BNV) | payer MEDICARE, MEDICAID, SELFPAY ==
[2023-05-18 13:38] VITALS: BP 190/120; BMI 29.0
== END ==
PROVIDERS: Admitting Provider Hospitalist; Emergency Provider Student in an Organized Health Care Education/Training Program; PCP Nurse Practitioner Family; Visit Provider Psychiatry & Neurology Neurology
DX: I21.4 Non-ST elevation (NSTEMI) myocardial infarction (principal); I10 Essential (primary) hypertension; R90.82 White matter disease, unspecified
CPT/HCPCS: 99223

== ENCOUNTER → 2023-06-07 10:58 | Outpatient (BNV) | payer MEDICARE, MEDICAID, SELFPAY ==
[2023-05-18 13:38] VITALS: BP 190/120; BMI 29.0
== END ==
PROVIDERS: Admitting Provider Hospitalist; Emergency Provider Student in an Organized Health Care Education/Training Program; PCP Nurse Practitioner Family; Visit Provider Internal Medicine
DX: I21.4 Non-ST elevation (NSTEMI) myocardial infarction (principal); E11.65 Type 2 diabetes mellitus with hyperglycemia
CPT/HCPCS: 99223; 99232; 99233

== ENCOUNTER → 2023-06-07 10:58 | Outpatient (BNV) | payer MEDICARE, MEDICAID, SELFPAY ==
[2023-05-18 13:38] VITALS: BP 190/120; BMI 29.0
== END ==
PROVIDERS: Admitting Provider Hospitalist; Emergency Provider Student in an Organized Health Care Education/Training Program; PCP Nurse Practitioner Family; Visit Provider Internal Medicine Pulmonary Disease
DX: E87.20 Acidosis, unspecified (principal); R90.82 White matter disease, unspecified; N17.9 Acute kidney failure, unspecified; N18.32 Chronic kidney disease, stage 3b
CPT/HCPCS: 99222

== ENCOUNTER → 2023-06-07 10:58 | Outpatient (BNV) | payer MEDICARE, MEDICAID, SELFPAY ==
[2023-05-18 13:38] VITALS: BP 190/120; BMI 29.0
== END ==
PROVIDERS: Admitting Provider Hospitalist; Emergency Provider Student in an Organized Health Care Education/Training Program; PCP Nurse Practitioner Family; Visit Provider Urology
DX: R33.9 Retention of urine, unspecified (principal)
CPT/HCPCS: 99222

== ENCOUNTER → 2023-06-07 10:58 | Outpatient (BNV) | payer MEDICARE, MEDICAID, SELFPAY ==
[2023-05-18 13:38] VITALS: BP 190/120; BMI 29.0
== END ==
PROVIDERS: Admitting Provider Hospitalist; Emergency Provider Student in an Organized Health Care Education/Training Program; PCP Nurse Practitioner Family; Visit Provider Hospitalist
DX: N18.32 Chronic kidney disease, stage 3b (principal); E87.5 Hyperkalemia
CPT/HCPCS: 99223; 99231; 99232; 99233; 99239

== ENCOUNTER 2023-06-29 16:15 | Outpatient (AMB) | payer MEDICARE, MEDICAID, SELFPAY ==
[2023-05-18 13:38] VITALS: BP 190/120; BMI 29.0
--- NOTE | 2023-06-29 16:21 | MHC.PC.OV ---
Vital Signs 06/29/23 16:22 06/29/23 16:51 Height 5 ft 7 in Weight 220 lb BMI 34.5 BP 170/90 H 148/88 H Blood Pressure Location Rt brachial Lt brachial Position Sitting Sitting Pulse 76 Pulse Source Pulse Oximeter Pulse Oximetry (%) 97 Oxygen Delivery Method Room Air Intake Visit Reasons: follow up - complex Entry Processor Required: No Allergies amoxicillin Allergy (Unknown, Verified 06/29/23 16:49) rash cefaclor [From Ceclor] Allergy (Unknown, Verified 06/29/23 16:49) RASH cephalexin Allergy (Unknown, Verified 06/29/23 16:49) rash Cephalosporins [CEPHALOSPORINS] Allergy (Unknown, Verified 06/29/23 16:49) RASH ALL OVER cephradine [From VELOSEF] Allergy (Unknown, Verified 06/29/23 16:49) RASH Penicillins [PENICILLINS] Allergy (Unknown, Verified 06/29/23 16:49) RASH gabapentin [GABAPENTIN] Adverse Reaction (Unknown, Verified 06/29/23 16:49) RESTLESS LEGS, Body becomes very uncomfortable Medication List - Last Reconciled 06/29/23 by Mauricio Nolasco [facility]- albuterol sulfate 90 mcg/actuation 1 inh inhalation QID PRN 30 days alcohol swabs 1 pad topical QIDACHS blood pressure test kit-large daily use blood sugar diagnostic (FreeStyle Lite Strips) Test four times a day or as directed. blood sugar diagnostic (FreeStyle Lite Strips) As directed- tests 4X/day blood-glucose meter (FreeStyle Lite Meter kit) As Directed blood-glucose meter (FreeStyle Lite Meter kit) As directed tests 4 X/day carvedilol 50 mg PO BID clonidine HCl 0.2 mg See Protocol PO BID clopidogrel (Plavix) 75 mg PO DAILY dulaglutide (Trulicity) 1.5 mg subcut TH famotidine 20 mg PO DAILY insulin glargine (Basaglar KwikPen U-100 Insulin) 20 units (0.2 mL) subcut QAM lancets (FreeStyle Lancets) Test four times a day or as directed. lancets (FreeStyle Lancets) As directed- tests 4X/day nifedipine ER 1 tab PO BID pen needle, diabetic Use four times a day or as directed. sacubitril-valsartan mg (Entresto) 1 tab See Protocol PO BID tamsulosin 0.4 mg PO DAILY Tobacco use date assessed: 06/29/23 Dental Screening Dental Screen Date: 06/29/23 Did you have a dental visit in the last 12 months?: No Did you have a dental problem in the last 6 months where you did not have access to dental care?: No Was dental information given to patient?: Patient declined HPI follow up - complex HPI Details Pt was seen in the ER on 06/06 c/o chest pain radiating to BUE, N/V, and BLE edema. Labs showed no leukocytosis, normocytic anemia, or thrombocytopenia. Coagulation studies were WNL. Labs did show known CKD with mild worsening and likely contributed to episode of malignant hypertension. Troponin was 190 without acute changes on EKG. BNP was elevated which is chronic. UA was negative for UTI or hematuria. Chest XR showed no infiltrate or venous congestion, did show chronically stable subpleural opacity within the LLL. Repeat EKG showed no changes. Pt was treated with IV heparin due to NSTEMI. Further management with aspirin, lipitor, and plavix. Echo showed no WMA. Pt had no renal recovery and increased fluid retention, permcath was inserted on 06/16 for hemodialysis. Pt was dialysed twice on 06/16 and 06/18. Last potassium on 06/17 was 3.5, creatinine 2.69, and BUN 29. She was started on floxmax due to urinary retention. Pt had visual changes, neurology recommended high dose steroid x3 days. Brain MRI showed relatively extensive chronic white matter disease with a periventricular predominant distribution. There is also chronic disease involving the basal ganglia, thalami, and conchita. One of the callosal lesions located within the central portion of the genu. 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 Chronic changes related to other ischemic, inflammatory, or demyelinating etiologies cannot be definitively excluded on the basis of this examination. No evidence of acute territorial infarct or hemorrhage. According to neurology MS seems more likely. Pt is going to dialysis 3 times a week. She will be following up with neurology this week. Pt is also following up with cardiology, nephrology, pulmonology, endo, retinal specialist, and urology. She will contact her regulatory affairs associate for a follow up. Pt has not started her long-acting insulin yet, she will start this tonight. Pt's depression screen was positive, she sees a therapist and psychiatrist. Overall pt reports doing well. She denies any SI or HI, last dialysis treatment was this am, i'm feeling better , pt further describing removal of excess fluid. [facility] Medical History CKD (chronic kidney disease) Hypertensive retinopathy Macular edema Diabetic retinopathy CHF (congestive heart failure) Malignant hypertension Heart block AV second degree Hypersomnia Cardiomyopathy CKD (chronic kidney disease) stage 2, GFR 60-89 ml/min Nicotine dependence, cigarettes, uncomplicated (~1999) Eclampsia Fatty liver Heart failure, unspecified (~09/2020) History of DVT (deep vein thrombosis) Diabetes mellitus Migraines Sjogren's disease Lupus Rheumatoid arthritis High cholesterol Anxiety PTSD (post-traumatic stress disorder) Bipolar 1 disorder H/O mixed connective tissue disease HTN (hypertension) Surgical History History of hysterectomy History of bronchoscopy (~11/2020) History of cholecystectomy (~05/2014) Family History Father Substance use disorder Mental health disorder Brother Substance use disorder Mental health disorder Brother Substance use disorder Mental health disorder Other Diabetes HTN (hypertension) Social History Household Members: Children Household Members Other:: 3 Housing: House Are you a primary health care administrator to a significant other at home: No Do you presently have visiting nurse or other home services: No Alcohol intake: never Patient Tobacco Use Status: Former Tobacco user Tobacco use type: Cigarette Cigarette Packs Per Day: 1 Cigarettes Per Day: 20.0 Years Smoked: 20 Packs Per Year: 20 Packs per year/per ci.00 e-Cigarette/Vaping Use: Never Used Second Hand Smoke Exposure: No Substance Use Type: Marijuana Advance Directives Date on File: 06/03/21 service: No Current occupational status: disabled Cognitive needs: No Hearing needs: No Vision needs: No Questionnaire PHQ-9 Over the last 2 weeks, how often have you been bothered by any of the following problems? 1. Little interest or pleasure in doing things: nearly every day 2. Feeling down, depressed, or hopeless: nearly every day 3. Trouble falling or staying asleep, or sleeping too much: nearly every day 4. Feeling tired or having little energy: more than half the days 5. Poor appetite or overeating: more than half the days 6. Feeling bad about yourself - or that you are a failure or have let yourself or your family down: more than half the days 7. Trouble concentrating on things, such as reading the newspaper or watching television: more than half the days 8. Moving or speaking so slowly that other people could have noticed. Or the opposite - being so fidgety or restless that you have been moving around a lot more than usual: more than half the days 9. Thoughts that you would be better off or of hurting yourself in some way: more than half the days Total score: 21 Depression Screening Interpretation: Positive Depression Screening Done: Yes 69623 - PHQ-9 Billing: Yes Source: Developed by Drs. Ubaldo Ventura, Cheryl Watkins, Yaya Robbins and colleagues, with an educational kleber from [employer]. Thrive Questionnaire Date Thrive assessed: 06/09/23 I am a: Patient What is your living situation today?: I have a steady place to live Within the past 12 months, did the food you bought not last and you didn't have the money to get more?: Never true Within the past 12 months, did you worry whether your food would run out before you got money to buy more?: Never true Do you have trouble paying for medicines?: No Do you have trouble getting transportation to medical appointments?: No Do you have trouble paying your heating and electricity bill?: No Do you have trouble taking care of your child, family member or friend?: No Do you have trouble with day-to-day activities such as bathing, preparing meals, shopping, managing finances, etc.?: No Are you currently unemployed and looking for a job?: No Are you interested in more education?: No Please select the resources that you would like help with: None Currently or been in a relationship where the following occur: no concerns reported THRIVE Score: 0 AUDIT C Alcohol Use Questionnaire (AUDIT-C) 1. How often do you have a drink containing alcohol?: Never Total Score: 0 Score Reviewed/Action Taken: Yes KESHAWN-7 AMB Questionnaire KESHAWN-7 Date KESHAWN - 7 assessed: 06/29/23 Feeling nervous, anxious, or on edge: 0 = Not at all Not being able to stop or control worryin = More than half the days Worrying too much about different things: 1 = Several days Trouble relaxin = More than half the days Being so restless that it is hard to sit still: 1 = Several days Becoming easily annoyed or irritable: 2 = More than half the days Feeling afraid as if something awful might happen: 3 = Nearly every day Total KESHAWN-7 score (0-4 normal; 5-9 mild; 10-14 moderate; 15-21 severe): 11 Source: Developed by Drs. Ubaldo Ventura, Cheryl Watkins, Yaya Robbins and colleagues, with an educational kleber from [employer]. KESHAWN-7 Assessment Billing KESHAWN-7 Assessment Tool: KESHAWN-7 Assessment 09014 Review of Systems Const Reports as per HPI Physical exam (Primary Care) Vital Signs: Last Vital Signs Pulse 76 06/29/23 16:22 BP 148/88 H 06/29/23 16:51 Pulse Ox 97 06/29/23 16:22 Oxygen Delivery Method Room Air 06/29/23 16:22 BMI result Body Mass Index 34.5 Tobacco/Smoking Status: Tobacco use Status Tobacco use date assessed 06/29/23 06/29/23 16:26 Patient Tobacco Use Status Former Tobacco user 06/29/23 16:26 Tobacco use type Cigarette 06/29/23 16:23 e-Cigarette/Vaping Use Never Used 06/29/23 16:23 PHQ-9: PHQ-9 Score PHQ-9: Total score 21 06/29/23 16:53 Depression Screening Interpretation: Positive Thrive Assessment: Date of Thrive Assessment Date Thrive assessed 06/09/23 06/29/23 16:23 Currently or been in a relationship where the following occur: no concerns reported Const General: cooperative Nutritional Appearance: obese Orientation/consciousness: patient oriented x3 Resp Effort & Inspection: normal respiratory effort Auscultation: clear to auscultation bilaterally Cardio Rate: regular rate Rhythm: regular rhythm Heart sounds: S1 normal heart sound present, S2 normal heart sound present and Murmur heart sound present systolic Skin Other: right upper chest port, no signs of infection noted Neuro General: patient oriented x3 Extrem Other: +1-2 pitting edema to BLE Psych Appearance: grossly normal Mental Status: mental status grossly normal Speech and movement: Normal speech and movement present Affect: normal affect Attitude: cooperative Thought process: Normal thought process present Thought content: Normal thought content present Insight: Good insight present (Psych) Judgement: Good judgement present (Psych) Assessment and Plan Assessment & Plan (1) NSTEMI (non-ST elevated myocardial infarction): Code(s): I21.4 - Non-ST elevation (NSTEMI) myocardial infarction Plan: following up with cardiology (2) White matter disease: Code(s): R90.82 - White matter disease, unspecified Plan: following up with neuro this week (3) Malignant hypertension: Code(s): I10 - Essential (primary) hypertension Plan: following up with nephrology, BP is becoming more stable (4) CKD (chronic kidney disease): Code(s): N18.9 - Chronic kidney disease, unspecified Qualifiers: Chronic kidney disease stage: stage 3 (moderate) Chronic kidney disease stage 3 subtype: stage 3b (GFR 30-44) Qualified Code(s): N18.32 - Chronic kidney disease, stage 3b (5) CHF (congestive heart failure): Code(s): I50.9 - Heart failure, unspecified Plan: following up with cardiology (6) Uncontrolled hypertension: Code(s): I10 - Essential (primary) hypertension (7) Dialysis patient: Code(s): Z99.2 - Dependence on renal dialysis Plan: Dialysis M,W,F currently. right upper chest port Plan The patient agreed to the use of a ophthalmic medical technician for this encounter. Scribed for TWILA Campbell by Morenita Medellin ophthalmic medical technician, on 06/29/2023 at 16:35 EST. Coding Level of Care Code Est Pt Level 4 (19011) Diagnoses NSTEMI (non-ST elevated myocardial infarction) I21.4 White matter disease R90.82 Malignant hypertension I10 Stage 3b chronic kidney disease N18.32 Chronic kidney disease stage: stage 3 (moderate) Chronic kidney disease stage 3 subtype: stage 3b (GFR 30-44) CHF (congestive heart failure) I50.9 Uncontrolled hypertension I10 Dialysis patient Z99.2 Additional Codes KESHAWN-7 Assessment Billing - KESHAWN-7 Assessment Tool: KESHAWN-7 Assessment 00231 ([id number])
[2023-06-29 16:22] VITALS: BP 170/90; PULSE 76; O2SAT 97; BMI 34.5
[2023-06-29 16:51] VITALS: BP 148/88
== END 2023-06-29 16:55 | disposition home or self-care (01) ==
PROVIDERS: PCP Nurse Practitioner Family; Visit Provider Nurse Practitioner Family
DX: I13.0 Hypertensive heart and chronic kidney disease with heart failure and stage 1 through stage 4 chronic kidney disease, or unspecified chronic kidney disease (principal); N18.32 Chronic kidney disease, stage 3b; I50.9 Heart failure, unspecified; Z99.2 Dependence on renal dialysis; I21.4 Non-ST elevation (NSTEMI) myocardial infarction; R90.82 White matter disease, unspecified
CPT/HCPCS: 99214

== ENCOUNTER 2023-07-01 12:56 | Outpatient (AMB) | payer MEDICARE, MEDICAID, SELFPAY ==
[2023-05-18 13:38] VITALS: BP 190/120; BMI 29.0
--- NOTE | 2023-07-01 13:46 | MHC.AMDMED ---
Intake Intake Visit Reasons: DM-call not going through Public Message Service Supervisor Required: No Accompanied by: Other Relationship Allergies amoxicillin Allergy (Unknown, Verified 06/29/23 16:49) rash cefaclor [From Ceclor] Allergy (Unknown, Verified 06/29/23 16:49) RASH cephalexin Allergy (Unknown, Verified 06/29/23 16:49) rash Cephalosporins [CEPHALOSPORINS] Allergy (Unknown, Verified 06/29/23 16:49) RASH ALL OVER cephradine [From VELOSEF] Allergy (Unknown, Verified 06/29/23 16:49) RASH Penicillins [PENICILLINS] Allergy (Unknown, Verified 06/29/23 16:49) RASH gabapentin [GABAPENTIN] Adverse Reaction (Unknown, Verified 06/29/23 16:49) RESTLESS LEGS, Body becomes very uncomfortable HPI Comprehensive Diabetes Asmnt Most Recent Diabetes Results: Microalb/Creat Ratio 897.5 ug/mg cr (<30) H 06/15/23 Creatinine 2.67 mg/dL (0.5-1.4) H 06/18/23 Blood Urea Nitrogen 29 mg/dL (9-16) H 06/18/23 Sodium 136 mmol/L (135-145) 06/18/23 Potassium 3.5 mmol/L (3.3-5.1) 06/18/23 Chloride 100 mmol/L (96-108) 06/18/23 Carbon Dioxide 25 mmol/L (22-29) 06/18/23 Calcium 8.1 mg/dL (8.4-10.2) L 06/18/23 AST 9 U/L (5-31) 06/10/23 ALT 10 U/L (0-31) 06/10/23 Total Protein 6.0 g/dL (6.5-8.0) L 06/10/23 Albumin 3.6 g/dL (3.5-5.0) 06/12/23 [facility] Medical History CKD (chronic kidney disease) Hypertensive retinopathy Macular edema Diabetic retinopathy CHF (congestive heart failure) Malignant hypertension Heart block AV second degree Hypersomnia Cardiomyopathy CKD (chronic kidney disease) stage 2, GFR 60-89 ml/min Nicotine dependence, cigarettes, uncomplicated (~1999) Eclampsia Fatty liver Heart failure, unspecified (~09/2020) History of DVT (deep vein thrombosis) Diabetes mellitus Migraines Sjogren's disease Lupus Rheumatoid arthritis High cholesterol Anxiety PTSD (post-traumatic stress disorder) Bipolar 1 disorder H/O mixed connective tissue disease HTN (hypertension) Surgical History History of hysterectomy History of bronchoscopy (~11/2020) History of cholecystectomy (~05/2014) Family History Father Substance use disorder Mental health disorder Brother Substance use disorder Mental health disorder Brother Substance use disorder Mental health disorder Other Diabetes HTN (hypertension) Social History Household Members: Children Household Members Other:: 3 Housing: House Are you a primary child care attendant to a significant other at home: No Do you presently have visiting nurse or other home services: No Alcohol intake: never Patient Tobacco Use Status: Former Tobacco user Tobacco use type: Cigarette Cigarette Packs Per Day: 1 Cigarettes Per Day: 20.0 Years Smoked: 20 e-Cigarette/Vaping Use: Never Used Second Hand Smoke Exposure: No Substance Use Type: Marijuana Advance Directives Date on File: 06/03/21 service: No Current occupational status: disabled Cognitive needs: No Hearing needs: No Vision needs: No Assessment & Plan Assessment & Plan (1) Diabetes mellitus: Code(s): E11.9 - Type 2 diabetes mellitus without complications Qualifiers: Diabetes mellitus type: type 2 Diabetes mellitus toeing stockings insulin use: without toeing stockings use Diabetes mellitus complication status: with other specified complication Qualified Code(s): E11.69 - Type 2 diabetes mellitus with other specified complication Plan: Learning objectives: The patient was provided with verbal and written education on the following topics as outlined below. Assess patient education level/literacy/barriers Patient questions/concerns, patient we recently discharged from hospital, which she started on kidney dialysis. Last A1c 6.3%, but that does not correlate with glucose in the hospital. Patient is currently taking Trulicity, but has stopped other diabetes meds Was prescribed Lantus and mealtime insulin in the hospital but she is not taking, because she was not using a meter or testing her blood sugars. At today's visit patient was taught how to use glucose meter The patient met all learning objectives and was able to verbalize understanding and provide teach back of education topics discussed . The patient was provided with the opportunity to ask questions and all questions were answered. Topics covered in today?s session included: Meter Teaching Patient presents today for a nursing visit for glucometer teaching. Type of Meter:Freestyle Lite Patient Education: Patient was instructed and provided with demonstration of the following: Setting date/time Turning meter on/off Retrieving blood glucose log Handwashing Test sites Site rotation Use of lancing device Testing blood glucose Removing and disposing needle from lancing device Safe disposal of sharps Target blood sugar Signs/ symptoms/treatment of hypoglycemia/hyperglycemia Frequency of testing Patient verbalized understanding of education provided and was able to demonstrate proper use of lancing device and glucometer. Blood Glucose at time of visit: ???237 mg/dL? CGM Info Instructed Pt on what CGM can and can't do CGM Can: Give Pt minute by minute reading of glucose levels Displays glucose trend arrows that represents the direction glucose levels are fluctuating Give insight on decisions about how to dose insulin CGM cannot: Improve glucose control on its own Completely eliminate the need for all finger sticks Make dosing decision for you CGM is the reading of glucose in the interstitial fluid not actual blood glucose, finger sticks are still necessary when Pt's symptom?s do not match sensor reading and if sensors prompts Pt to do a fingerstick Patient? is interested in the Dexcom G7 Reviewed Medicare guidelines for obtaining CGM Reviewed delay of CGM from fingersticks Reminded pt that if symptoms do not match sensor still needs to check fingersticks. Blood glucose targets and how you feel when your blood glucose is in and out of your target ranges. Monitoring and knowing your A1C. What can make blood glucose go up and down and preventing high and low blood glucose. Review of blood sugar targets in expected goal range and outside of expected goal range. Problem solving and preventing hyper/hypoglycemia. Sick day management of diabetes. Using blood sugar results in decision making process in managing diabetes. ?Patient was receptive to information provided and participated in the discussion. Asked?appropriate questions and demonstrated good understanding of the topics discussed.? ? Educational Materials: The patient was provided with the following written educational materials: Target Goal handout Comprehension of Instructions: Fair Readiness to make changes:? Contemplation How confident they feel about making changes: Fair Patient Instructions: Patient instructed to contact Diabetes Education nurse if glucose is consistently over 200 mg/dL, for 3-4 days in row Patient will return follow-up with cross cut sawyer on 07/13/2023 Coding Level of Care Code Est Pt Level 1 (44663) Diagnoses Type 2 diabetes mellitus with other specified complication, without long-term current use of insulin E11.69 Diabetes mellitus type: type 2 Diabetes mellitus snf insulin use: without toeing stockings use Diabetes mellitus complication status: with other specified complication
== END 2023-07-01 13:58 | disposition home or self-care (01) ==
PROVIDERS: PCP Nurse Practitioner Family; Visit Provider Registered Nurse Diabetes Educator
DX: E11.69 Type 2 diabetes mellitus with other specified complication (principal)

== ENCOUNTER → 2023-07-01 12:56 | Outpatient (BNVA) | payer MEDICARE, MEDICAID, SELFPAY ==
[2023-05-18 13:38] VITALS: BP 190/120; BMI 29.0
== END ==
PROVIDERS: PCP Nurse Practitioner Family; Visit Provider Registered Nurse Diabetes Educator
DX: E11.69 Type 2 diabetes mellitus with other specified complication (principal)
CPT/HCPCS: 99211

== ENCOUNTER 2023-07-21 14:47 | Outpatient (REF) | payer MEDICARE, MEDICAID, SELFPAY ==
[2023-05-18 13:38] VITALS: BP 190/120; BMI 29.0
--- NOTE | ~2023-07-21 | MM_ITS ---
EXAMINATION: MM SCREENING DIGITAL BREAST TOMOSYNTHESIS, BILATERAL CLINICAL INFORMATION: Screening. Asymptomatic. The patient just started dialysis and has been placed on the transplant waiting list. COMPARISON: Mammography: There are no prior mammograms for comparison. TECHNIQUE: Digital breast tomosynthesis is performed in both the craniocaudal and mediolateral oblique views along with computer-aided detection (CAD). Synthesized 2D images are generated from the tomosynthesis. FINDINGS: There are scattered areas of fibroglandular density (ACR BI-RADS breast composition Category b). There are no significant masses, abnormal calcifications, or other abnormalities. There is a dialysis catheter overlying the right breast. MM/MM tomosynthesis screening BI IMPRESSION: No mammographic evidence of malignancy. ASSESSMENT: BI-RADS BI-RADS 1 - Negative RECOMMENDATION: Routine annual mammography screening. 1 year F/U This examination should not preclude the clinical evaluation of a suspicious palpable abnormality. This patient's information was entered into a reminder system with a target due date for their next mammogram.
== END 2023-07-21 14:48 | disposition home or self-care (01) ==
LOC: HO.MAMMO 14:47
PROVIDERS: PCP Nurse Practitioner Family; Visit Provider Nurse Practitioner Family
DX: Z12.31 Encounter for screening mammogram for malignant neoplasm of breast (principal)
CPT/HCPCS: 77063; 77067

== ENCOUNTER → 2023-07-21 15:30 | Outpatient (BNV) | payer MEDICARE, MEDICAID, SELFPAY ==
[2023-05-18 13:38] VITALS: BP 190/120; BMI 29.0
== END ==
PROVIDERS: PCP Nurse Practitioner Family; Visit Provider Radiology Diagnostic Radiology
DX: Z12.31 Encounter for screening mammogram for malignant neoplasm of breast (principal)
CPT/HCPCS: 77063; 77067

== ENCOUNTER 2023-07-23 14:52 | Outpatient (AMB) | payer MEDICARE, MEDICAID, SELFPAY ==
[2023-05-18 13:38] VITALS: BP 190/120; BMI 29.0
--- NOTE | 2023-07-23 15:14 | MHC.AMDMED ---
Intake Intake Visit Reasons: DM 60 min Division Operations Specialist Required: No Accompanied by: Self / Same As Patient Allergies amoxicillin Allergy (Unknown, Verified 06/29/23 16:49) rash cefaclor [From Ceclor] Allergy (Unknown, Verified 06/29/23 16:49) RASH cephalexin Allergy (Unknown, Verified 06/29/23 16:49) rash Cephalosporins [CEPHALOSPORINS] Allergy (Unknown, Verified 06/29/23 16:49) RASH ALL OVER cephradine [From VELOSEF] Allergy (Unknown, Verified 06/29/23 16:49) RASH Penicillins [PENICILLINS] Allergy (Unknown, Verified 06/29/23 16:49) RASH gabapentin [GABAPENTIN] Adverse Reaction (Unknown, Verified 06/29/23 16:49) RESTLESS LEGS, Body becomes very uncomfortable HPI Comprehensive Diabetes Asmnt Most Recent Diabetes Results: Microalb/Creat Ratio 897.5 ug/mg cr (<30) H 06/15/23 Cholesterol 183 mg/dL 06/09/22 HDL Cholesterol 51 mg/dL 06/09/22 Triglycerides 128 mg/dL 06/09/22 Creatinine 2.67 mg/dL (0.5-1.4) H 06/18/23 Blood Urea Nitrogen 29 mg/dL (9-16) H 06/18/23 Sodium 136 mmol/L (135-145) 06/18/23 Potassium 3.5 mmol/L (3.3-5.1) 06/18/23 Chloride 100 mmol/L (96-108) 06/18/23 Carbon Dioxide 25 mmol/L (22-29) 06/18/23 Calcium 8.1 mg/dL (8.4-10.2) L 06/18/23 AST 9 U/L (5-31) 06/10/23 ALT 10 U/L (0-31) 06/10/23 Total Protein 6.0 g/dL (6.5-8.0) L 06/10/23 Albumin 3.6 g/dL (3.5-5.0) 06/12/23 [facility] Medical History CKD (chronic kidney disease) Hypertensive retinopathy Macular edema Diabetic retinopathy CHF (congestive heart failure) Malignant hypertension Heart block AV second degree Hypersomnia Cardiomyopathy CKD (chronic kidney disease) stage 2, GFR 60-89 ml/min Nicotine dependence, cigarettes, uncomplicated (~1999) Eclampsia Fatty liver Heart failure, unspecified (~09/2020) History of DVT (deep vein thrombosis) Diabetes mellitus Migraines Sjogren's disease Lupus Rheumatoid arthritis High cholesterol Anxiety PTSD (post-traumatic stress disorder) Bipolar 1 disorder H/O mixed connective tissue disease HTN (hypertension) Surgical History History of hysterectomy History of bronchoscopy (~11/2020) History of cholecystectomy (~05/2014) Family History Father Substance use disorder Mental health disorder Brother Substance use disorder Mental health disorder Brother Substance use disorder Mental health disorder Other Diabetes HTN (hypertension) Social History Household Members: Children Household Members Other:: 3 Housing: House Are you a primary healthcare management to a significant other at home: No Do you presently have visiting nurse or other home services: No Alcohol intake: never Patient Tobacco Use Status: Former Tobacco user Tobacco use type: Cigarette Cigarette Packs Per Day: 1 Cigarettes Per Day: 20.0 Years Smoked: 20 e-Cigarette/Vaping Use: Never Used Second Hand Smoke Exposure: No Substance Use Type: Marijuana Advance Directives Date on File: 06/03/21 service: No Current occupational status: disabled Cognitive needs: No Hearing needs: No Vision needs: No Assessment & Plan Assessment & Plan (1) Diabetes: Code(s): E11.9 - Type 2 diabetes mellitus without complications Plan: Learning objectives: The patient was provided with verbal and written education on the following topics as outlined below. The patient met all learning objectives and was able to verbalize understanding and provide teach back of education topics discussed . The patient was provided with the opportunity to ask questions and all questions were answered. Patient Assessment Assess patient education level/literacy/barriers Patient questions/concerns, patient has re-initiated Dexcom G7, glucose levels are running well above target. At today's visit instructed patient to reinitiate Lantus 20 units daily Patient is currently on dialysis Thursday, Thursday, Thursday At last visit requested a nutrition referral from Dr. John, which was entered into patient's chart. Instructed patient to make appointment with registered dietitian to discuss renal and diabetes meal plans What is Diabetes? Pathophysiology How the body produces and uses insulin Identify type of DM Risk factors Signs of Diabetes Brief overview of Diabetes Management Monitoring blood sugar Following a meal plan Regular exercise Maintaining a healthy weight Taking medication as needed Members of the care team (PCP, RN, MA, RD, CDE, molding machine operator helper) Blood glucose monitoring When/how often to test Target blood sugar ranges Patient uses Dexcom G7 Average glucose for the past 14 days to 79 mg/dL Patient above target 97% Patient at target 3% Patient below target 0% Introduction to Nutrition Importance of healthy diet in managing DM Diet is personalized to individual preference Review patient?s regular diet/food preferences Who prepares meals/does food shopping/ Dining out?/ Barriers? How diet effects glucose Eating 3 balanced meals a day with small, healthy snacks between meals Review food groups Carbohydrates: What is a carbohydrate/Which food/food groups are considered carbohydrates Effect of carbohydrates on blood glucose Portion sizes Reading food labels Basic carb counting (if applicable per nursing assessment) Plate method Meal planning Recommendations: Follow plate method, consistent carbs and read nutritional labels. Smart Goal: Patient will keep meals to 30-45 g of carbohydrate per meal Educational Materials: The patient was provided with the following written educational materials: Planning Healthy Meals, high and low potassium foods Handouts Patient Response to instructions: Comprehension of Instructions: Fair Readiness to make changes: Contemplation How confident they feel about making changes: Positive Patient Instructions: Include regular daily activity. ADA recommends 30 minutes of exercise 5 days a week. Weight loss talk to PCP or Party Plan Sales Consultant before starting new plan. Test blood sugar as directed; Fasting and 2hpp largest meal. Watch trends in results. Utilize results and to assess how food, physical activity and medications affect blood sugar results. Bring glucometer or CGM to next visit. Be knowledgeable about diabetes medication, its action, side effects, efficacy, toxicity, prescribed dosage, appropriate timing and frequency of administration, effect of missed and delayed doses and instructions for storage, travel and safety. Problem solving techniques to monitor hypo/hyperglycemia episodes and treatments. Reduce risk reduction behaviors, smoking cessation, regular eye, foot and dental examinations. Patient will with certified breastfeeding educator in 2 weeks Coding Level of Care Code Est Pt Level 1 (97923) Diagnoses Diabetes E11.9
== END 2023-07-23 15:18 | disposition home or self-care (01) ==
PROVIDERS: PCP Nurse Practitioner Family; Visit Provider Registered Nurse Diabetes Educator
DX: E11.9 Type 2 diabetes mellitus without complications (principal)

== ENCOUNTER → 2023-07-23 14:52 | Outpatient (BNVA) | payer MEDICARE, MEDICAID, SELFPAY ==
[2023-05-18 13:38] VITALS: BP 190/120; BMI 29.0
== END ==
PROVIDERS: PCP Nurse Practitioner Family; Visit Provider Registered Nurse Diabetes Educator
DX: E11.9 Type 2 diabetes mellitus without complications (principal)
CPT/HCPCS: 99211

== ENCOUNTER 2023-08-25 11:16 | Outpatient (AMB) | payer MEDICARE, MEDICAID, SELFPAY ==
[2023-05-18 13:38] VITALS: BP 190/120; BMI 29.0
--- NOTE | 2023-08-25 11:26 | A.OFFPC_ITS ---
Vital Signs 08/25/23 11:29 Height 5 ft 7 in Weight 181 lb BMI 28.3 BP 140/100 H Blood Pressure Location Rt brachial Position Sitting Pulse 80 Pulse Source Pulse Oximeter Pulse Oximetry (%) 100 Oxygen Delivery Method Room Air Intake Visit Reasons: Annual PE Intake Note: Patient here for physical exam. Mammo: due 2024 Allergies amoxicillin Allergy (Unknown, Verified 08/25/23 11:49) rash cefaclor [From Ceclor] Allergy (Unknown, Verified 08/25/23 11:49) RASH cephalexin Allergy (Unknown, Verified 08/25/23 11:49) rash Cephalosporins [CEPHALOSPORINS] Allergy (Unknown, Verified 08/25/23 11:49) RASH ALL OVER cephradine [From VELOSEF] Allergy (Unknown, Verified 08/25/23 11:49) RASH Penicillins [PENICILLINS] Allergy (Unknown, Verified 08/25/23 11:49) RASH gabapentin [GABAPENTIN] Adverse Reaction (Unknown, Verified 08/25/23 11:49) RESTLESS LEGS, Body becomes very uncomfortable Tobacco use date assessed: 06/29/23 Dental Screening Dental Screen Date: 06/29/23 HPI Annual PE HPI Details Pt is here for a PE. Will order labs. Mammo is up to date. Has a staffing coordinator. Pt is a diabetic, sees endo. Pt follows up with cardiology, neurology, a retina specialist (blind in right eye), and nephrology. Pt reports her BP is much better at dialysis (three days a week). Pt sees a therapist weekly. [facility] Medical History Hyperglycemia Hypertensive urgency CKD (chronic kidney disease) Hypertensive retinopathy Macular edema Diabetic retinopathy CHF (congestive heart failure) Malignant hypertension Heart block AV second degree Hypersomnia Cardiomyopathy CKD (chronic kidney disease) stage 2, GFR 60-89 ml/min Nicotine dependence, cigarettes, uncomplicated (~1999) Eclampsia Fatty liver Heart failure, unspecified (~09/2020) History of DVT (deep vein thrombosis) Diabetes mellitus Migraines Sjogren's disease Lupus Rheumatoid arthritis High cholesterol Anxiety PTSD (post-traumatic stress disorder) Bipolar 1 disorder H/O mixed connective tissue disease HTN (hypertension) Surgical History History of hysterectomy History of bronchoscopy (~11/2020) History of cholecystectomy (~05/2014) Family History Father Substance use disorder Mental health disorder Brother Substance use disorder Mental health disorder Brother Substance use disorder Mental health disorder Other Diabetes HTN (hypertension) Social History Household Members: Children Household Members Other:: 3 Housing: House Are you a primary overnight caregiver to a significant other at home: No Do you presently have visiting nurse or other home services: No Alcohol intake: never Patient Tobacco Use Status: Former Tobacco user Tobacco use type: Cigarette Cigarette Packs Per Day: 1 Cigarettes Per Day: 20.0 Years Smoked: 20 e-Cigarette/Vaping Use: Never Used Second Hand Smoke Exposure: No Substance Use Type: Marijuana Advance Directives Date on File: 06/03/21 service: No Current occupational status: disabled Cognitive needs: No Hearing needs: No Vision needs: No Questionnaire PHQ-9 Over the last 2 weeks, how often have you been bothered by any of the following problems? 1. Little interest or pleasure in doing things: several days 2. Feeling down, depressed, or hopeless: several days 3. Trouble falling or staying asleep, or sleeping too much: several days 4. Feeling tired or having little energy: several days 5. Poor appetite or overeating: several days 6. Feeling bad about yourself - or that you are a failure or have let yourself or your family down: several days 7. Trouble concentrating on things, such as reading the newspaper or watching television: not at all 8. Moving or speaking so slowly that other people could have noticed. Or the opposite - being so fidgety or restless that you have been moving around a lot more than usual: not at all 9. Thoughts that you would be better off or of hurting yourself in some way: not at all Total score: 6 Depression Screening Interpretation: Negative (pt has a therapist) Depression Screening Done: Yes 89945 - PHQ-9 Billing: Yes Source: Developed by Drs. Ubaldo Ventura, Cheryl Watkins, Yaya Robbins and colleagues, with an educational kleber from [employer]. Thrive Questionnaire Date Thrive assessed: 06/09/23 AUDIT C Alcohol Use Questionnaire (AUDIT-C) 1. How often do you have a drink containing alcohol?: Never 3. How often do you have six or more drinks on one occasion?: Never Total Score: 0 Score Reviewed/Action Taken: No KESHAWN-7 AMB Questionnaire KESHAWN-7 Date KESHAWN - 7 assessed: 06/29/23 Source: Developed by Drs. Ubaldo Ventura, Cheryl Watkins, Yaya Robbins and colleagues, with an educational kleber from [employer]. KESHAWN-7 Assessment Billing KESHAWN-7 Assessment Tool: pt declined-do not bill Review of Systems Const Denies chills and Denies fever(s) Eyes Denies blurry vision ENT Denies vertigo, Denies dizziness and Denies sore throat Card Denies chest pain at rest, Denies chest pain with activity, Denies diaphoresis, Denies dyspnea and Denies dyspnea on exertion Resp Denies cough, Denies dyspnea, Denies dyspnea on exertion and Denies wheezing GI Denies abdominal pain, Denies melena, Denies hematochezia, Denies constipation, Denies diarrhea and Denies loose stools Denies hematuria Musc Denies numbness and Denies tingling Skin/Breast Denies lesions Neuro Denies vertigo, Denies dizziness, Denies numbness and Denies tingling Psych Denies anxiety, Denies depression, Denies homicidal ideation, Denies suicidal ideation and Denies other (substance abuse) Aller/Immun Denies wheezing Physical exam (Primary Care) Vital Signs: Last Vital Signs Pulse 80 08/25/23 11:29 BP 140/100 H 08/25/23 11:29 Pulse Ox 100 08/25/23 11:29 Oxygen Delivery Method Room Air 08/25/23 11:29 BMI result Body Mass Index 28.3 Tobacco/Smoking Status: Tobacco use Status Tobacco use date assessed 06/29/23 08/25/23 11:27 Patient Tobacco Use Status Former Tobacco user 08/25/23 11:27 Tobacco use type Cigarette 08/25/23 11:27 e-Cigarette/Vaping Use Never Used 08/25/23 11:27 PHQ-9: PHQ-9 Score PHQ-9: Total score 6 08/25/23 11:39 Depression Screening Interpretation: Negative (pt has a therapist) Thrive Assessment: Date of Thrive Assessment Date Thrive assessed 06/09/23 08/25/23 11:27 Const General: cooperative Nutritional Appearance: well nourished Orientation/consciousness: patient oriented x3 HENMT Head: Yes normal to inspection, Yes normocephalic and Yes atraumatic Ears: TM's normal bilaterally Eyes General: appearance normal, both eyes and all related structures Alignment and Position: alignment normal and position normal Neck Neck: Yes normal visual inspection and Yes no lymphadenopathy Thyroid: Thyroid normal Chest Other: port to right upper chest, dressing CDI Resp Effort & Inspection: normal respiratory effort Auscultation: clear to auscultation bilaterally Cardio Rate: regular rate Rhythm: regular rhythm Heart sounds: S1 normal heart sound present, S2 normal heart sound present and Murmur heart sound present systolic (faint) GI Palpation (GI): Soft to palpation and nontender Auscultation: normal bowel sounds Skin Rashes: no rashes Neuro General: patient oriented x3, moves all extremities, no focal motor deficits and deep tendon reflexes 2+ bilaterally Romberg Test: Negative Psych Appearance: grossly normal Mental Status: mental status grossly normal Speech and movement: Normal speech and movement present Affect: normal affect Attitude: cooperative Thought process: Normal thought process present Thought content: Normal thought content present Insight: Good insight present (Psych) Judgement: Good judgement present (Psych) Assessment and Plan Assessment & Plan (1) Dialysis patient: Code(s): Z99.2 - Dependence on renal dialysis (2) Diabetes: Code(s): E11.9 - Type 2 diabetes mellitus without complications Plan: seeing endo (3) Malignant hypertension: Code(s): I10 - Essential (primary) hypertension Plan: sees nephrology for this, on dialysis (4) NSTEMI (non-ST elevated myocardial infarction): Code(s): I21.4 - Non-ST elevation (NSTEMI) myocardial infarction Plan: sees cardio (5) Encounter for routine adult physical exam with abnormal findings: Code(s): Z00.01 - Encounter for general adult medical examination with abnormal findings Plan: labs ordered, cont to follow up with specialists Plan The patient agreed to the use of a biomedical instrument technician for this encounter. Scribed for TWILA Campbell by sagar Charles scribe, on 08/25/2023 at 11:50 EST. Orders: Orders Comprehensive [place]imo. Panel Fast Today Z00. - Encounter for general adult medical examination with abnormal findings UA CC w/rflx Micro + Cult Today Z00. - Encounter for general adult medical examination with abnormal findings Lipid Panel Today Z00. - Encounter for general adult medical examination with abnormal findings Complete Blood Count Auto Diff Today Z00. - Encounter for general adult medical examination with abnormal findings TSH reflex Free T4 Today Z00. - Encounter for general adult medical examination with abnormal findings Medications: Refilled famotidine 20 mg PO DAILY 60 tabs 0RF Coding Level of Care Code Est Pt Prev Care 40-64y(24290) Diagnoses Dialysis patient Z99.2 Diabetes E11.9 Malignant hypertension I10 NSTEMI (non-ST elevated myocardial infarction) I21.4 Encounter for routine adult physical exam with abnormal findings Z00.
[2023-08-25 11:29] VITALS: BP 140/100; PULSE 80; O2SAT 100; BMI 28.3
== END 2023-08-25 12:13 | disposition home or self-care (01) ==
PROVIDERS: Visit Provider Nurse Practitioner Family
DX: Z00.00 Encounter for general adult medical examination without abnormal findings (principal); I12.9 Hypertensive chronic kidney disease with stage 1 through stage 4 chronic kidney disease, or unspecified chronic kidney disease; N18.9 Chronic kidney disease, unspecified; E11.22 Type 2 diabetes mellitus with diabetic chronic kidney disease; Z99.2 Dependence on renal dialysis; I25.2 Old myocardial infarction
CPT/HCPCS: 99396

== ENCOUNTER 2023-09-03 09:36 | Day surgery (SDC) | payer MEDICARE, MEDICAID, SELFPAY ==
[2023-05-18 13:38] VITALS: BP 190/120; BMI 29.0
--- NOTE | ~2023-09-03 | FL_ITS ---
Fluoroscopic lumbar puncture Indication: Concern for demyelinating disease Risks and benefits and possible complications were discussed with the patient and the consent form was signed. Patient was placed prone on the fluoroscopy table. The back was prepped and draped in routine sterile fashion. Betadine was used as a skin antiseptic. Utilizing fluoroscopic guidance, the L4-5 interlaminar space was accessed with a 22 gague Ainsley spinal needle and clear CSF fluid obtained. Opening pressure was 15 cm H2O. 10 cc of fluid was sent for analysis. The needle was removed without immediate complications. Total fluoroscopy time: 0.2 min FL/FL guided lumbar puncture LP Impression: Successful fluoroscopic guided lumbar puncture This procedure was performed by Ken Vaz PA-C and supervised by Dr. Patel.
[2023-09-03 09:46] VITALS: BMI 28.1
[2023-09-03 10:17] LABS: Glucose, Whole Blood 217 mg/dL (60-115)
[2023-09-03 12:20] VITALS: BP 150/76; PULSE 64; RESP 18; TEMP 36.4; O2SAT 97
[2023-09-03 12:35] VITALS: BP 139/76; PULSE 55; RESP 18; O2SAT 95
[2023-09-03 12:50] VITALS: BP 144/78; PULSE 68; RESP 20; O2SAT 99
[2023-09-03 13:00] VITALS: BP 149/81; PULSE 55; RESP 16; TEMP 36.7; O2SAT 95
[2023-09-03 14:11] LABS: Glucose CSF 58 mg/dL; Total Protein CSF 70.3 mg/dL (15-45)
[2023-09-03 15:12] LABS: Appearance CSF CLEAR; CSF Tube # 4; Color CSF COLORLESS
[2023-09-03 15:13] LABS: Red Blood Cell CSF 0 MM*3
[2023-09-03 15:15] LABS: CSF Monos 1 %; Lymphocytes CSF 9 %
[2023-09-03 15:25] LABS: White Blood Cell CSF 1 MM*3
[2023-09-03 15:39] LABS: CSF Appearance Clear, Colorless; CSF Tube # 1
[2023-09-04 13:13] LABS: Oligoclonal Serum Yes
[2023-09-08 21:04] LABS: Myelin Basic Protein <2.0 mcg/L (<=4.0)
[2023-09-09 05:19] LABS: Oligoclonal Banding Absent (Absent)
[2023-09-11 14:51] LABS: Albumin, CSF 64.6; Prealbumin, CSF 3.1
[2023-09-11 14:52] LABS: Alpha-1-Globulin,CSF 5.4; Alpha-2-Globulin,CSF 6.4
[2023-09-11 14:53] LABS: Gamma Globulin 8.5
[2023-09-11 14:54] LABS: Total Protein, CSF 73 (H)
== END 2023-09-03 13:22 | disposition home or self-care (01) ==
PROVIDERS: Physician Assistant Surgical; PCP Nurse Practitioner Family; Visit Provider Psychiatry & Neurology Neurology
PROC: 009U3ZZ Drainage of Spinal Canal, Percutaneous Approach (ICD-10-PCS; CPT 62270; principal; 2023-09-03 11:00)
DX: H46.9 Unspecified optic neuritis (principal); G37.9 Demyelinating disease of central nervous system, unspecified; I10 Essential (primary) hypertension; E11.9 Type 2 diabetes mellitus without complications; Z79.82 Long term (current) use of aspirin; Z79.899 Other long term (current) drug therapy
CPT/HCPCS: 62328; 82945; 82947; 83873; 83916; 84157; 84166; 87015; 87070; 87205; 89051

== ENCOUNTER → 2023-09-03 11:00 | Outpatient (BNV) | payer MEDICARE, MEDICAID, SELFPAY ==
[2023-05-18 13:38] VITALS: BP 190/120; BMI 29.0
== END ==
PROVIDERS: PCP Nurse Practitioner Family; Visit Provider Physician Assistant Surgical
DX: G37.9 Demyelinating disease of central nervous system, unspecified (principal)
CPT/HCPCS: 62328

== ENCOUNTER 2023-09-04 15:45 | Emergency (ER) | payer MEDICARE, MEDICAID, SELFPAY ==
[2023-05-18 13:38] VITALS: BP 190/120; BMI 29.0
[2023-09-04] VITALS (11 sets, daily range): BP systolic 147–243; BP diastolic 71–126; PULSE 51–78; RESP 11–20; TEMP 36.4; O2SAT 96–100; BMI 28.0
--- NOTE | ~2023-09-04 | XR_ITS ---
EXAMINATION: XR CHEST CLINICAL INFORMATION: Chest pain. COMPARISON: Chest radiograph dated 06/07/2023. TECHNIQUE: 2 views of the chest were obtained. FINDINGS: There is a right internal jugular vein dual lumen catheter terminating over the right atrium. The cardiac silhouette is normal in size. There is a cardiac device overlying the left side of the heart, unchanged in position. The lungs are clear. There is mild blunting of the left costophrenic angle, suggestive of a small pleural effusion. There is no pneumothorax. There are degenerative changes of the thoracic spine. There are chronic left-sided rib fractures. XR/XR chest 2V IMPRESSION: There is mild blunting of the left costophrenic angle representing either pleural thickening or a small left pleural effusion. There is no consolidation within either lung.
--- NOTE | 2023-09-04 16:06 | ED.GENADULT ---
HPI - General Adult General Chief complaint: General Medical Stated complaint: lumbar punct, migraine, pass out Time Seen by Provider: 09/04/23 17:26 Source: patient Mode of arrival: ambulatory Limitations: no limitations History of Present Illness ED Provider: Ramos Russell PA-C HPI narrative: 43-year-old female with history of ESRD on dialysis M/W/F, malignant hypertension, CHF, bipolar 1 disorder, second-degree heart block, HLD, fatty liver, mixed connective tissue disease, mediastinal lymphadenopathy who presents to the ER for evaluation of shortness of breath and migraine headache that started at 11am today in the setting of a recent lumbar puncture yesterday as well as running out of her antihypertensive agents. She states she had a full dialysis session today. They did not take off any fluid and gave her back some fluid because she has not been eating the last 5 days. No abd pain or vomiting but she has no appetite. She states she got a lumbar puncture here as part of a MS workup. Her headache today is worse when she is sitting. It is relieved when she is lying down or standing. It is her entire head and described as a throbbing, pounding headache. She denies any chest pain. No vision changes. MD complaint: Severe headache, shortness of breath Onset (ago): hour(s) Location: head Radiation: non-radiation Severity: severe Severity scale (1-10): 10 Pain Consistency: intermittent Relieving factors: other (Supine position) Exacerbating factors: other (Sitting) Associated symptoms: loss of appetite, malaise, shortness of breath and weakness Treatments prior to arrival: none Related Data Home Medications ?Medication ?Instructions ?Recorded ?Confirmed carvedilol 25 mg tablet 50 mg PO BID 03/20/22 09/03/23 nifedipine 90 mg tablet,extended 1 tab PO BID 04/22/22 09/03/23 release 24 hr dulaglutide 1.5 mg/0.5 mL 1.5 mg subcut TH 05/28/22 09/03/23 [facility] Previous Rx's ?Medication ?Instructions ?Recorded lancets 28 gauge (FreeStyle #100 ea 03/20/22 Lancets) blood pressure test kit-large #1 ea 03/25/22 albuterol sulfate 90 mcg/actuation 1 inh inhalation QID PRN Wheezing 05/05/23 aerosol inhaler 30 days #8.5 grams blood sugar diagnostic (FreeStyle #100 ea 05/18/23 Lite Strips) blood-glucose meter (FreeStyle #1 ea 05/18/23 Lite Meter kit) alcohol swabs 1 pad topical QIDACHS #100 ea 06/09/23 blood sugar diagnostic (FreeStyle #100 ea 06/09/23 Lite Strips) blood-glucose meter (FreeStyle #1 ea 06/09/23 Lite Meter kit) lancets 28 gauge (FreeStyle #100 ea 06/09/23 Lancets) pen needle, diabetic 32 gauge x #100 ea 06/09/2304/09 sacubitril 24 mg-valsartan 26 mg 1 tab PO BID #30 tabs 06/09/23 tablet (Entresto) clonidine HCl 0.2 mg tablet 0.2 mg PO BID #180 tabs 06/19/23 tamsulosin 0.4 mg capsule 0.4 mg PO DAILY #90 caps 06/19/23 insulin glargine 100 unit/mL (3 20 unit (0.2 mL) subcut QAM #15 mL 06/20/23 mL) subcutaneous pen (Basaglar KwikPen U-100 Insulin) famotidine 20 mg tablet 20 mg PO DAILY #90 tabs 08/26/23 Allergies Allergy/AdvReac Type Severity Reaction Status Date / Time amoxicillin Allergy Unknown rash Verified 09/04/23 16:11 cefaclor [From Ceclor] Allergy Unknown RASH Verified 09/04/23 16:11 cephalexin Allergy Unknown rash Verified 09/04/23 16:11 Cephalosporins Allergy Unknown RASH ALL Verified 09/04/23 16:11 [CEPHALOSPORINS] OVER cephradine [From VELOSEF] Allergy Unknown RASH Verified 09/04/23 16:11 Penicillins [PENICILLINS] Allergy Unknown RASH Verified 09/04/23 16:11 gabapentin [GABAPENTIN] AdvReac Unknown RESTLESS Verified 09/04/23 16:11 LEGS, Body becomes very uncomfortable Review of Systems Review of Systems: Yes all other systems are reviewed and are negative [facility] Past Medical History Medical History (Updated 09/05/23 @ 00:20 by SPIKE De Jesus) Legally blind Vascular dialysis catheter in place Hypertensive retinopathy Macular edema Diabetic retinopathy Hyperglycemia CHF (congestive heart failure) Hypertensive urgency Malignant hypertension CKD (chronic kidney disease) Heart block AV second degree Hypersomnia Cardiomyopathy CKD (chronic kidney disease) stage 2, GFR 60-89 ml/min Nicotine dependence, cigarettes, uncomplicated (~1999) Eclampsia Fatty liver Heart failure, unspecified (~09/2020) History of DVT (deep vein thrombosis) Diabetes mellitus Migraines Sjogren's disease Lupus Rheumatoid arthritis High cholesterol Anxiety PTSD (post-traumatic stress disorder) Bipolar 1 disorder H/O mixed connective tissue disease HTN (hypertension) Surgical History (Updated 09/03/23 @ 10:00 by La Nena Prince) History of H/O eye surgery History of hip surgery Tubal ligation status History of bronchoscopy (~11/2020) History of cholecystectomy (~05/2014) Family History Family History Father Substance use disorder Mental health disorder Brother Substance use disorder Mental health disorder Brother Substance use disorder Mental health disorder Other Diabetes HTN (hypertension) Social History Social History Household Members: Children Household Members Other:: 3 Housing: House Are you a primary sub acute care nurse to a significant other at home: No Do you presently have visiting nurse or other home services: No Alcohol intake: never Patient Tobacco Use Status: Former Tobacco user Tobacco use type: Cigarette Cigarette Packs Per Day: 1 Cigarettes Per Day: 20.0 Years Smoked: 20 Smoked in Last 30 Days: Yes e-Cigarette/Vaping Use: Never Used Second Hand Smoke Exposure: No Use of substances other than those prescribed or required for medical reasons: No Substance Use Type: Marijuana Advance Directives: Yes Advance Directives on File: Yes Advance Directives Date on File: 06/03/21 Do you have a plan to hurt others: No Plan service: No Current occupational status: disabled Cognitive needs: No Hearing needs: No Vision needs: No Physical Exam ED Vital Signs: Vital Signs - 24 hr 09/04/23 16:06 09/04/23 16:58 09/04/23 17:42 Temperature 97.6 F Pulse Rate 52 53 51 Respiratory Rate 20 18 18 Blood Pressure 239/126 H 239/126 H 225/98 H Pulse Oximetry 100 100 98 Oxygen Delivery Method Room Air Room Air Room Air 09/04/23 17:51 09/04/23 18:00 09/04/23 18:20 Temperature Pulse Rate 55 58 Respiratory Rate 17 17 Blood Pressure 243/108 H 236/110 H 207/100 H Pulse Oximetry 100 Oxygen Delivery Method 09/04/23 18:49 09/04/23 19:25 09/04/23 20:53 Temperature 97.6 F Pulse Rate 62 60 78 Respiratory Rate 18 16 13 Blood Pressure 155/72 H 147/71 H 185/96 H Pulse Oximetry 100 100 96 Oxygen Delivery Method Room Air Room Air Room Air 09/04/23 22:16 09/04/23 22:16 09/04/23 22:52 Temperature Pulse Rate 61 Respiratory Rate 11 L Blood Pressure 177/114 H 177/114 H 181/105 H Pulse Oximetry 97 Oxygen Delivery Method Room Air 09/05/23 01:05 Temperature 97.6 F Pulse Rate 61 Respiratory Rate 18 Blood Pressure 173/103 H Pulse Oximetry 97 Oxygen Delivery Method Room Air BMI result Body Mass Index 28.0 Appearance: Alert. Oriented X3. No acute distress. Head: normocephalic, atraumatic. Eyes: Pupils equal, round and reactive to light. ENT: Pharynx normal. No tonsillar swelling or exudate. Neck: Normal inspection. Neck supple. CVS: Normal heart rate and rhythm. Pulses normal. Respiratory: No respiratory distress. Breath sounds normal. Abdomen: Soft and nontender. +BS x4 Skin: Skin warm and dry. Normal skin color. Normal skin turgor. No rashes. Extremities: No lower extremity edema. No joint swelling. Neuro/psych: Oriented X 3. No motor deficit. No sensory deficit. CN II-XII intact. Normal speech and cognition. Course Course Course Narrative: This is a Rapid Medical Examination (RME) performed by Yuilya Mcdonald PA-C in triage. Full HPI, ROS, assessment and treatment plan per primary provider in the Main ED. 43 yo female hx of bipolar disorder, HTN, CHF, CKD on M/W/F dialysis (was dialyzed today) here w/ multiple complaints. reports lumbar puncture yesterday for MS work up. Reports extreme migraine beginning this morning. also believes her BP is high. reports bp in 200's this morning at dialysis. Has not had her BP meds (nifedipine 90) in 2 days as she has been unable to fill her script. reports chest pressure and shortness of breath. very anxious in triage. Plan: labs, ekg, trop, cxr ORDERED Reevaluation(s) Reevaluation #1: Hospitalist recommending CT scan of the head prior to admission to the hospital. Head CT ordered Time: 22:58 Reevaluation #2: CT of the head. She states her headache was from her lumbar puncture she does not even have a CT scan. Her headache is now completely resolved. She is tolerating sitting up and standing with no headache. She would rather go home. She states her blood pressure is always high and is poorly controlled at baseline. She was given all of her oral medications here including Coreg, Entresto, nifedipine and clonidine. Her blood pressure before the Coreg and Entresto were given was 180/100. At this time patient would like to be discharged from the ER with close blood pressure monitoring at home. She reports she will cook pickled meat her nifedipine from the pharmacy in the morning. She thinks her blood pressure was poorly controlled today because of the pain in the head and the fact that she missed her nifedipine. This is happened to her in the past. At this time comfortable with discharge home. Return precautions were discussed the patient expressed understanding. Case discussed with hospitalist. Time: 00:31 Medications Administered Discontinued Medications Generic Name Dose Route Start Last Admin Trade Name Opal PRN Reason Stop Dose Admin Carvedilol 50 mg 09/04/23 23:28 09/05/23 00:14 Carvedilol 25 Mg Tablet PO 09/04/23 23:29 50 mg ONCE ONE Administration Protocol Clonidine HCl 0.2 mg 09/04/23 21:56 09/04/23 22:16 Clonidine Hcl 0.2 Mg Tablet PO 09/04/23 21:57 0.2 mg ONCE ONE Administration Protocol Diphenhydramine HCl 50 mg 09/04/23 17:37 09/04/23 17:54 Diphenhydramine Hcl 50 Mg/Ml Vial IVPUSH 09/04/23 17:38 50 mg ONCE ONE Administration Hydralazine HCl 10 mg 09/04/23 17:37 09/04/23 17:51 Hydralazine Hcl 20 Mg/Ml Vial IVPUSH 09/04/23 17:38 10 mg ONCE ONE Administration Protocol Metoclopramide HCl 10 mg 09/04/23 17:37 09/04/23 17:54 Metoclopramide Hcl 10 Mg/2 Ml Vial IVPUSH 09/04/23 17:38 10 mg ONCE ONE Administration Nifedipine 90 mg 09/04/23 21:56 09/04/23 22:16 Nifedipine Er 30 Mg Tab.Er.24 PO 09/04/23 21:57 90 mg ONCE ONE Administration Protocol Sacubitril/Valsartan 1 tab 09/04/23 23:28 09/05/23 00:14 Sacubitril/Valsartan 1 Tab Tablet PO 09/04/23 23:29 1 tab ONCE ONE Administration Protocol Medical Decision Making Medical Decision Making MDM Narrative: 43-year-old female with history of ESRD on dialysis M/W/F, malignant hypertension, CHF, bipolar 1 disorder, second-degree heart block, HLD, fatty liver, mixed connective tissue disease, mediastinal lymphadenopathy who presents to the ER for evaluation of shortness of breath and migraine headache that started at 11am today in the setting of a recent lumbar puncture yesterday as well as running out of her antihypertensive agents. Patient arrives to the ER with a blood pressure as high as 243/108. It is associated with severe headache although the severe headache is likely due to her lumbar puncture that was done yesterday. IV was established and patient was given IV hydralazine as well as IV Reglan and Benadryl for her headache. Blood pressure did improve 2207/100. Goal SBP for 25% decrease is around 180. Second dose of hydralazine was going to be given however the next blood pressure reading was systolic blood pressure of 155 so this was held off. Patient was re-evaluated is overall feeling better. Her headache is improved when she is supine. Most recent blood pressure 185/96. Will give her her oral medications. Will plan to admit for further monitoring and treatment. Patient agrees with plan. Differential Diagnosis Differential Diagnoses: The differential diagnosis associated with the presentation includes Post lumbar puncture headache, hypertensive emergency, SAH, migraine headache Admission/Observation Consideration of admission/observation: Escalation of care including admission/observation considered Consult Healthcare Provider Management of the patient was discussed with: Hospitalist Lab Data [facility] Lab Attestation statement: I reviewed the patient's lab results. 09/04/23 16:45 09/04/23 16:45 Labs: Lab Results 09/04/23 Range/Units 16:45 WBC 5.9 (4.8-10.8) X10*3/uL RBC 3.77 L D (4.20-5.50) X10*6/uL Hgb 12.1 D (12.0-16.0) g/dl Hct 33.1 L (37.0-47.0) % MCV 87.8 (80.0-98.0) fL MCH 32.1 (27.0-33.0) pg MCHC 36.6 H (31.0-35.0) g/dl RDW 13.1 (11.0-16.0) % Plt Count 266 D (160-400) X10*3/uL MPV 9.3 L (9.4-12.3) fL Immature Gran % (Auto) 0.3 (0.0-0.4) % Neut % (Auto) 65.1 (45-73) % Lymph % (Auto) 25.5 (20-40) % Day % (Auto) 7.4 (2-11) % Eos % (Auto) 1.2 (0-4) % Baso % (Auto) 0.5 (0-2) % Lymph # (Auto) 1.5 (1.2-4.9) X10*3/uL Day # (Auto) 0.4 (0.1-1.2) X10*3/uL Eos # (Auto) 0.1 (0.0-0.4) X10*3/uL Baso # (Auto) 0.0 (0.0-0.2) X10*3/uL Abs Immat Gran (auto) 0.02 (0.00-0.03) X10*3/uL Absolute Neuts (auto) 3.9 (2.0-8.3) x10*3/uL Absolute Nucleated RBC 0.020 H (0.0-0.012) X10*3/uL Nucleated RBC % (auto) 0.3 H (0.0-0.2) /100WBC Sodium 141 (135-145) mmol/L Potassium 4.1 (3.3-5.1) mmol/L Chloride 104 (96-108) mmol/L Carbon Dioxide 29 (22-29) mmol/L Anion Gap 12 (12-20) BUN 17 H (9-16) mg/dL Creatinine 3.12 H (0.5-1.4) mg/dL Estim Creat Clear Calc 25.9 Estimated GFR 16 Random Glucose 127 H (60-115) mg/dL Calcium 9.7 D (8.4-10.2) mg/dL Magnesium 1.9 (1.6-2.6) mg/dL Total Bilirubin 0.9 (0.0-1.0) mg/dL AST 12 (5-31) U/L ALT 6 (0-31) U/L Alkaline Phosphatase 95 (39-117) U/L Troponin I High Sens 12.0 D (<3.5-17.0) ng/L Total Protein 7.3 (6.5-8.0) g/dL Albumin 4.4 (3.5-5.0) g/dL Lipase 15 (8-78) U/L Beta HCG, Quant < 2 mIU/mL Independent Interpretation I performed an independent interpretation of an: EKG Interpretation: EKG with sinus bradycardia, ventricular rate 40 beats per minute, LVH, no ST segment elevations or depressions. External Record Review External record reviewed: Inpatient record, Outpatient record, Prior outpatient labs and Prior outpatient radiology Tests considered The following testing was considered but not selected: CT head considered but headache c/w lumbar puncture headache Prescription Management I considered prescription management with: Pain Medication and Other (Antihypertensive agent) Chronic Conditions Patient?s care impacted by: Hypertension and Other (ESRD) Social Determinants Patient?s care significantly limited by Social Determinants of Health including: Problems related to primary support group and Other Social Determinant of Health Critical Care Time Critical Care Time Critical Care Time: Yes Total Critical Care Time: 44 Attestation: I have personally provided critical care time exclusive of time spent on separately billable procedures. Time includes review of lab data, radiology results, administration of IV vasoactive medications, reassessment of vital signs frequently and monitoring for potential decompensation. Intervention performed as documented. Discharge Plan Discharge Clinical Impression: Headache, post-lumbar puncture, Malignant hypertension Patient Disposition: Home, Self-Care Instructions: Hypertensive Crisis (ED), Lumbar Puncture (ED) Additional Instructions: Her blood pressure was severely elevated in the emergency department today. It is important that you take your blood pressure medications as prescribed Monitor your blood pressure at home. If you have blood pressure of 200/110, developed chest pain or severe headache associated with high blood pressure call 911 or come back to the ER for further evaluation. Follow-up with your doctor Prescriptions: No Action (DME) lancets [FreeStyle Lancets] 28 gauge misc See Rx Instructions .Route Qty: 100 4RF Rx Instructions: As directed- tests 4X/day (DME) blood pressure test kit-large Kit See Rx Instructions .Route Qty: 1 0RF Rx Instructions: daily use albuterol sulfate 90 mcg/actuation HFA aerosol inhaler 1 inh inhalation QID PRN (Reason: Wheezing) 30 Days Qty: 8.5 1RF famotidine 20 mg tablet 20 mg PO DAILY Qty: 90 0RF carvedilol 25 mg tablet 50 mg PO BID nifedipine 90 mg tablet extended release 24hr 1 tab PO BID Trulicity 1.5 mg/0.5 mL Pen Injector 1.5 mg SUBCUT TH Entresto 24-26 mg Tablet 1 tab PO BID Qty: 30 0RF Protocol: Hold for SBP< HOLD for SBP < : 90 (DME) FreeStyle Lite Strips Strip Qty: 100 0RF Rx Instructions: Test four times a day or as directed. (DME) blood-glucose meter [FreeStyle Lite Meter] Kit Qty: 1 0RF Rx Instructions: As Directed alcohol swabs Pads, Medicated 1 pad TOPICAL QIDACHS Qty: 100 0RF Rx Instructions: Use four times a day or as directed. (DME) pen needle, diabetic 32 gauge x 1/4 needle Qty: 100 0RF Rx Instructions: Use four times a day or as directed. (DME) lancets [FreeStyle Lancets] 28 gauge misc Qty: 100 0RF Rx Instructions: Test four times a day or as directed. clonidine HCl 0.2 mg Tablet 0.2 mg PO BID Qty: 180 0RF Protocol: Hold for SBP< HOLD for SBP < : 90 tamsulosin 0.4 mg Capsule 0.4 mg PO DAILY Qty: 90 0RF insulin glargine [Basaglar KwikPen U-100 Insulin] 100 unit/mL (3 mL) insulin pen 20 unit subcut QAM Qty: 15 0RF (DME) blood-glucose meter [FreeStyle Lite Meter] Kit See Rx Instructions .Route Qty: 1 0RF Rx Instructions: As directed tests 4 X/day (DME) FreeStyle Lite Strips Strip See Rx Instructions .Route Qty: 100 5RF Rx Instructions: As directed- tests 4X/day Interventions: ED Discharge Assessment Last Done: 09/05/23 01:05 Discharge Date/Time: 09/05/23 01:06 Print Language: Kazakh
--- NOTE | 2023-09-04 16:10 | ECG_ITS ---
Test Reason : chest pain Blood Pressure : / mmHG Vent. Rate : 048 BPM Atrial Rate : 048 BPM P-R Int : 164 ms QRS Dur : 094 ms QT Int : 480 ms P-R-T Axes : 055 017 130 degrees QTc Int : 428 ms Sinus bradycardia Left ventricular hypertrophy with repolarization abnormality ( Sokolow-Abarca ) Abnormal ECG When compared with ECG of 07-JUN-2023 18:26, Vent. rate has decreased BY 24 BPM Referred By: Ghada Mcdonald Electronically Signed By:MANJEET DUVALL
[2023-09-04 16:50] LABS: MANUAL DIFF FLAG NO
[2023-09-04 17:02] LABS: Basophils Percent Auto 0.5 % (0-2); Eosinophils Absolute Auto 0.1 X10*3/uL (0.0-0.4); Eosinophils Percent Auto 1.2 % (0-4); Hematocrit 33.1 % (37.0-47.0); Hemoglobin 12.1 g/dl (12.0-16.0); Imm Gran Abs Auto 0.02 X10*3/uL (0.00-0.03); Imm Gran Pct Auto 0.3 % (0.0-0.4); Lymphocytes Absolute Auto 1.5 X10*3/uL (1.2-4.9); Lymphocytes Percent Auto 25.5 % (20-40); Mean Corpuscular HGB Conc 36.6 g/dl (31.0-35.0); Mean Corpuscular Hemoglobin 32.1 pg (27.0-33.0); Mean Corpuscular Volume 87.8 fL (80.0-98.0); Mean Platelet Volume 9.3 fL (9.4-12.3); Monocytes Absolute Auto 0.4 X10*3/uL (0.1-1.2); Monocytes Percent Auto 7.4 % (2-11); NRBC Pct Auto 0.3 /100WBC (0.0-0.2); Neutrophils Absolute Auto 3.9 x10*3/uL (2.0-8.3); Neutrophils Percent Auto 65.1 % (45-73); Platelet Count 266 X10*3/uL (160-400); Red Blood Count 3.77 X10*6/uL (4.20-5.50); Red Cell Distribution Width 13.1 % (11.0-16.0); White Blood Count 5.9 X10*3/uL (4.8-10.8)
[2023-09-04 17:11] LABS: Alanine Aminotransferase 6 U/L (0-31); Albumin Level 4.4 g/dL (3.5-5.0); Alkaline Phosphatase 95 U/L (39-117); Anion Gap 12 (12-20); Aspartate Amino Transferase 12 U/L (5-31); Bilirubin Total 0.9 mg/dL (0.0-1.0); Blood Urea Nitrogen 17 mg/dL (9-16); Calcium 9.7 mg/dL (8.4-10.2); Carbon Dioxide 29 mmol/L (22-29); Chloride 104 mmol/L (96-108); Creatinine Clr Calc Pharmacy 25.9; Estimated Glomerular Filt Rate 16; Glucose Random 127 mg/dL (60-115); Lipase 15 U/L (8-78); Magnesium 1.9 mg/dL (1.6-2.6); Potassium 4.1 mmol/L (3.3-5.1); Sodium 141 mmol/L (135-145); Total Protein 7.3 g/dL (6.5-8.0)
[2023-09-04 17:12] LABS: HCG Quantitative < 2 mIU/mL
[2023-09-04] MEDS: hydrALAZINE HCl 20 MG/ML VIAL 10 MG IVPUSH (17:51)
[2023-09-04] MEDS: Metoclopramide HCl 10 MG/2 ML VIAL IVPUSH (17:54)
[2023-09-04] MEDS: diphenhydrAMINE HCL 50 MG/ML VIAL IVPUSH (17:54)
--- NOTE | 2023-09-04 17:54 | PC.NURSE ---
Pt presents to ED from home, reports headache since 11A today, severe all over. Also reports N/V, multiple episodes along with intermittent CP. Had a lumbar puncture here at [facility] yesterday in IR, doctor advised her to come to ER when headache came on. Pt reports THURMAN changes with position. Pt is on dialysis, port on right side of chest, goes M/W/F, went today and had full session. Denies fevers, cough, diarrhea, ABD pain. Alert and oriented, breathing even and unlabored, skin warm and dry. BP signifcantly hypertensive. Sinus markus on cardiac rehabilitation program director. Pt blind in right eye. Headache pain 10/10, aching/ throbbing.
--- NOTE | 2023-09-04 19:27 | PC.NURSE ---
Pt resting quietly with eyes closed, respirations even and unlabored. VSS stable.
[2023-09-04] MEDS: cloNIDine HCL 0.2 MG TABLET PO (22:16)
[2023-09-04] MEDS: NIFEdipine ER 30 MG TAB.ER.24 90 MG PO (22:16)
[2023-09-05] MEDS: Sacubitril/Valsartan 24/26 1 TAB TABLET PO (00:14)
[2023-09-05] MEDS: carvediloL 25 MG TABLET 50 MG PO (00:14)
[2023-09-05 01:05] VITALS: BP 173/103; PULSE 61; RESP 18; TEMP 36.4; O2SAT 97
== END 2023-09-05 01:06 | disposition home or self-care (01) ==
PROVIDERS: Physician Assistant; Physician Assistant Medical; Emergency Provider Emergency Medicine Emergency Medical Services; PCP Nurse Practitioner Family
DX: G97.1 Other reaction to spinal and lumbar puncture (principal); R51.9 Headache, unspecified; Y84.4 Aspiration of fluid as the cause of abnormal reaction of the patient, or of later complication, without mention of misadventure at the time of the procedure; Y92.9 Unspecified place or not applicable; I13.0 Hypertensive heart and chronic kidney disease with heart failure and stage 1 through stage 4 chronic kidney disease, or unspecified chronic kidney disease; I50.9 Heart failure, unspecified; N18.9 Chronic kidney disease, unspecified; Z86.718 Personal history of other venous thrombosis and embolism
CPT/HCPCS: 36415; 71046; 80053; 83690; 83735; 84484; 84702; 85025; 93005; 96374; 96375; 99284; 99285; J0360; J1200; J2765

== ENCOUNTER → 2023-09-04 16:10 | Outpatient (BNV) | payer MEDICARE, MEDICAID, SELFPAY ==
[2023-05-18 13:38] VITALS: BP 190/120; BMI 29.0
== END ==
PROVIDERS: Emergency Provider Emergency Medicine Emergency Medical Services; PCP Nurse Practitioner Family; Visit Provider Internal Medicine
DX: R00.1 Bradycardia, unspecified (principal); R94.31 Abnormal electrocardiogram [ECG] [EKG]
CPT/HCPCS: 93010

== ENCOUNTER 2023-09-08 09:58 | Outpatient (AMB) | payer MEDICARE, MEDICAID, SELFPAY ==
[2023-05-18 13:38] VITALS: BP 190/120; BMI 29.0
--- NOTE | 2023-09-08 10:22 | A.OFFVIS_ITS ---
VS Expanded 09/08/23 10:23 Height 5 ft 7 in Weight 174 lb 13.225 oz BMI 27.4 Intake Visit Reasons: T2DM/CONFIRMED Allergies amoxicillin Allergy (Unknown, Verified 09/04/23 16:11) rash cefaclor [From Ceclor] Allergy (Unknown, Verified 09/04/23 16:11) RASH cephalexin Allergy (Unknown, Verified 09/04/23 16:11) rash Cephalosporins [CEPHALOSPORINS] Allergy (Unknown, Verified 09/04/23 16:11) RASH ALL OVER cephradine [From VELOSEF] Allergy (Unknown, Verified 09/04/23 16:11) RASH Penicillins [PENICILLINS] Allergy (Unknown, Verified 09/04/23 16:11) RASH gabapentin [GABAPENTIN] Adverse Reaction (Unknown, Verified 09/04/23 16:11) RESTLESS LEGS, Body becomes very uncomfortable Nutrition Presentation Details: Pt presents for MNT for T2DM on dialysis Pt is on hemodialysis 3 times a week, started in June 3 day a week ( [facility] dialysis- ) take calcitrate , reports blood work t Pt reports having no meal pattern 7am B: working on having yogurt , typically has water with meds or juice , raspberry ice tea L bowl of cereal/ peanut butter /milk or Nepali muffin and toast Dinner: chicken nuggets/Belarusian fires or frozen pizza snack on crackers of fruits food frequency fruits: 0-1/d vegetables: not including dairy: 1/d fish : not including starches > 20 serving/d BS Monitoring Most Recent Diabetes Results: Creatinine 3.12 mg/dL (0.5-1.4) H 09/04/23 Blood Urea Nitrogen 17 mg/dL (9-16) H 09/04/23 Sodium 141 mmol/L (135-145) 09/04/23 Potassium 4.1 mmol/L (3.3-5.1) 09/04/23 Chloride 104 mmol/L (96-108) 09/04/23 Carbon Dioxide 29 mmol/L (22-29) 09/04/23 Calcium 9.7 mg/dL (8.4-10.2) 09/04/23 AST 12 U/L (5-31) 09/04/23 ALT 6 U/L (0-31) 09/04/23 Total Protein 7.3 g/dL (6.5-8.0) 09/04/23 Albumin 4.4 g/dL (3.5-5.0) 09/04/23 BWT-Oenzxkt-Oy.Jeor Equation Height: 5 ft 7 in Weight: 175 lb Resting Metabolic Rate: 1493.90 Calculated Activity Level: Mild Activity Calories Needed to Maintain Weight: 2053.11 Diagnosis Nutrition problem #1: food nutri know defi As related to (etiology) #1: diagnosis As evidenced by (sign/symptom) #1: knowledge deficit of diet Monitoring/Goals Nutrition problem monitoring: level of knowledge/skill and total CHO intake [facility] Medical History (Updated 09/09/23 @ 11:[address], LDN) Legally blind Vascular dialysis catheter in place Hypertensive retinopathy Macular edema Diabetic retinopathy Hyperglycemia CHF (congestive heart failure) Hypertensive urgency Malignant hypertension CKD (chronic kidney disease) Heart block AV second degree Hypersomnia Cardiomyopathy CKD (chronic kidney disease) stage 2, GFR 60-89 ml/min Nicotine dependence, cigarettes, uncomplicated (~1999) Eclampsia Fatty liver Heart failure, unspecified (~09/2020) History of DVT (deep vein thrombosis) Diabetes mellitus Migraines Sjogren's disease Lupus Rheumatoid arthritis High cholesterol Anxiety PTSD (post-traumatic stress disorder) Bipolar 1 disorder H/O mixed connective tissue disease HTN (hypertension) Surgical History (Updated 09/03/23 @ 10:00 by La Nena Prince) History of H/O eye surgery History of hip surgery Tubal ligation status History of bronchoscopy (~11/2020) History of cholecystectomy (~05/2014) Family History Father Substance use disorder Mental health disorder Brother Substance use disorder Mental health disorder Brother Substance use disorder Mental health disorder Other Diabetes HTN (hypertension) Social History Household Members: Children Household Members Other:: 3 Housing: House Are you a primary progressive care unit registered nurse to a significant other at home: No Do you presently have visiting nurse or other home services: No Alcohol intake: never Patient Tobacco Use Status: Former Tobacco user Tobacco use type: Cigarette Cigarette Packs Per Day: 1 Cigarettes Per Day: 20.0 Years Smoked: 20 e-Cigarette/Vaping Use: Never Used Second Hand Smoke Exposure: No Substance Use Type: Marijuana Advance Directives Date on File: 06/03/21 service: No Current occupational status: disabled Cognitive needs: No Hearing needs: No Vision needs: No Assessment & Plan Assessment & Plan (1) T2DM (type 2 diabetes mellitus): Code(s): E11.9 - Type 2 diabetes mellitus without complications Category: Medical Plan: Wt: 79.5 Kg ( 09/2023 ) Est kcal needs as per MSJ: 2100 (40% carb, 30% protein/fat) Est fluid needs as per 25-30 ml/d: 2400 (unless otherwise specified by MD) Est prot per day as per 1.2 g/kg bw: 95 g Recommend fiber intake : 8-10 g per day and gradually increase to 25-28 g per day for women and 35-38 g for men or as tolerated Recommend sodium intake per day : less than 1500 mg less than 2000 mg Educated patient on: ( R = reviewed V = verbalizes understanding N/R = needs review N/A = not applicable * Food sources of carbohydrate, adequate serving sizes and its role in various health conditions: R * Differences between complex carbohydrates a simple carbohydrates, role of fiber in diet: R V N/R * Lean protein sources of foods: R * Differences between types of fats and role in diet (mono on saturated fat fatty acids, saturated fatty acids, trans fats): R V N/R * Food sources of sodium in salt and healthy modifications for heart health in kidney health: R V R/V * Vitamins and minerals: R V N/R * Healthy plate method concept: R V N/R * Physical activity: Benefits a precaution: R V N/R * Hypoglycemia protocol (rule of 15): R * Dietary prevention of Hyperglycemia: R Patient Instructions: Work on balancing your meals including 3-4 oz of protein Following healthy plate method Choose less processed protein foods (choose eggs, poultry/beans, lean beef Choose fruit or yogurt in place of chips , pastries see meal plan ideas Coding Level of Care Code Nutr Indiv Intake (45907) Diagnoses T2DM (type 2 diabetes mellitus) E11.9 Time Spent (min) 30
[2023-09-08 10:23] VITALS: BMI 27.4
[2023-09-09 11:11] VITALS: BMI 27.4
== END 2023-09-08 10:48 | disposition home or self-care (01) ==
PROVIDERS: PCP Nurse Practitioner Family; Visit Provider Dietitian, Registered
DX: E11.9 Type 2 diabetes mellitus without complications (principal)

== ENCOUNTER 2023-09-08 09:58 | Outpatient (AMB) | payer MEDICARE, MEDICAID, SELFPAY ==
[2023-05-18 13:38] VITALS: BP 190/120; BMI 29.0
--- NOTE | 2023-09-08 10:19 | MHC.AMDMED ---
Intake Intake Visit Reasons: T2DM/CONFIRMED Ibm Bpm Architect Required: No Accompanied by: Other Relationship Allergies amoxicillin Allergy (Unknown, Verified 09/04/23 16:11) rash cefaclor [From Ceclor] Allergy (Unknown, Verified 09/04/23 16:11) RASH cephalexin Allergy (Unknown, Verified 09/04/23 16:11) rash Cephalosporins [CEPHALOSPORINS] Allergy (Unknown, Verified 09/04/23 16:11) RASH ALL OVER cephradine [From VELOSEF] Allergy (Unknown, Verified 09/04/23 16:11) RASH Penicillins [PENICILLINS] Allergy (Unknown, Verified 09/04/23 16:11) RASH gabapentin [GABAPENTIN] Adverse Reaction (Unknown, Verified 09/04/23 16:11) RESTLESS LEGS, Body becomes very uncomfortable HPI Comprehensive Diabetes Asmnt Most Recent Diabetes Results: Microalb/Creat Ratio 897.5 ug/mg cr (<30) H 06/15/23 Cholesterol 183 mg/dL 06/09/22 HDL Cholesterol 51 mg/dL 06/09/22 Triglycerides 128 mg/dL 06/09/22 Creatinine 3.12 mg/dL (0.5-1.4) H 09/04/23 Blood Urea Nitrogen 17 mg/dL (9-16) H 09/04/23 Sodium 141 mmol/L (135-145) 09/04/23 Potassium 4.1 mmol/L (3.3-5.1) 09/04/23 Chloride 104 mmol/L (96-108) 09/04/23 Carbon Dioxide 29 mmol/L (22-29) 09/04/23 Calcium 9.7 mg/dL (8.4-10.2) 09/04/23 AST 12 U/L (5-31) 09/04/23 ALT 6 U/L (0-31) 09/04/23 Total Protein 7.3 g/dL (6.5-8.0) 09/04/23 Albumin 4.4 g/dL (3.5-5.0) 09/04/23 [facility] Medical History (Updated 09/06/23 @ 00:01 by Background Dacesar) Legally blind Vascular dialysis catheter in place Hypertensive retinopathy Macular edema Diabetic retinopathy Hyperglycemia CHF (congestive heart failure) Hypertensive urgency Malignant hypertension CKD (chronic kidney disease) Heart block AV second degree Hypersomnia Cardiomyopathy CKD (chronic kidney disease) stage 2, GFR 60-89 ml/min Nicotine dependence, cigarettes, uncomplicated (~1999) Eclampsia Fatty liver Heart failure, unspecified (~09/2020) History of DVT (deep vein thrombosis) Diabetes mellitus Migraines Sjogren's disease Lupus Rheumatoid arthritis High cholesterol Anxiety PTSD (post-traumatic stress disorder) Bipolar 1 disorder H/O mixed connective tissue disease HTN (hypertension) Surgical History (Updated 09/03/23 @ 10:00 by La Nena Prince) History of H/O eye surgery History of hip surgery Tubal ligation status History of bronchoscopy (~11/2020) History of cholecystectomy (~05/2014) Family History Father Substance use disorder Mental health disorder Brother Substance use disorder Mental health disorder Brother Substance use disorder Mental health disorder Other Diabetes HTN (hypertension) Social History Household Members: Children Household Members Other:: 3 Housing: House Are you a primary child care associate teacher to a significant other at home: No Do you presently have visiting nurse or other home services: No Alcohol intake: never Patient Tobacco Use Status: Former Tobacco user Tobacco use type: Cigarette Cigarette Packs Per Day: 1 Cigarettes Per Day: 20.0 Years Smoked: 20 e-Cigarette/Vaping Use: Never Used Second Hand Smoke Exposure: No Substance Use Type: Marijuana Advance Directives Date on File: 06/03/21 service: No Current occupational status: disabled Cognitive needs: No Hearing needs: No Vision needs: No Assessment & Plan Assessment & Plan (1) Diabetes: Code(s): E11.9 - Type 2 diabetes mellitus without complications Plan: Personal Continuous Glucose Monitor: Patients CGM information reviewed Reviewed patient's sensor data: Hypoglycemia: ? 0% Hyperglycemia:?41% Time in Range:? 59% Average glucose for the last 2 weeks? 179 mg/dL Patient's glucose have significantly improved since restarting Lantus 20 units daily, patient continues to have postprandial hyperglycemia, although reports her appetite has been diminished for the past several weeks. Recommended to patient discuss whether increasing Trulicity 1.5 mg is an option or adding rapid acting insulin before meals. Patient had 2 sensors, fall off. Patient given sample of skin tac for adherence issue, also instructed patient to call [employer] customer service if sensors do not stay adhered for the full 10 days Although patient does not have any episodes of hypoglycemia, we did review rule of 15s at today's visit. Recommended to patient she carry hypoglycemic treatment with her. Patient stated she would obtain glucose tabs. Reviewed how to interpret trend arrows Reminded patient that to check finger sticks if symptoms do not match sensor reading. Discussed lag time between finger stick and sensor data.? Patient able to insert sensor independently at home without issue.? Portions of this note were created using voice recognition software, please excuse any words or phrases that may have been misinterpreted. Patient Instructions: DIABETES PROBLEMS HOMECARE INSTRUCTIONS Hypo instructions ? When first signs of insulin reaction occur, immediately drink orange juice or cola, or suck on a sugar cube, but only if the person is conscious. ? Person with diabetes should continue taking insulin when ill, unless he/she is not able to eat.? Regularly check blood sugar or urine for sugar and acetone during illness. ? Exercise regularly. ? Pay special attention to the feet.? Avoid cuts, sores, blisters, ill-fitting shoes, or going barefoot.? Promptly treat injuries to the feet. ? Take medications as directed by physician. ? Drink extra water or noncaffeinated, nonsugared drinks to prevented hydration. Signs and symptoms of low blood sugar (happen quickly) Each person's reaction to low blood sugar is different. Learn your own signs and symptoms of when your blood sugar is low. Taking time to write these symptoms down may help you learn your own symptoms of when your blood sugar is low. From milder, more common indicators to most severe, signs and symptoms of low blood sugar include: Feeling shaky Being nervous or anxious Sweating, chills and clamminess Irritability or impatience Confusion Fast heartbeat Feeling lightheaded or dizzy Hunger Nausea Color draining from the skin (pallor) Feeling Sleepy Feeling weak or having no energy Blurred/impaired vision Tingling or numbness in the lips, tongue, or cheeks Headaches Coordination problems, clumsiness Hypoglycemia or blood glucose under 70 use the rule of 15's: If you have your blood glucose meter test your blood glucose, if you do not have your meter still follow below instruction: Keep quick-sugar foods with you at all times.? Take 15 grams of fast acting carbohydrates. Examples are 4 ounces of fruit juice or regular soda pop, 8 ounces fat-free milk, 1 tablespoon of table sugar, honey or corn syrup, jam, one miniature box of raisins, 7-8 gumdrops or Life Savers candy, 4 glucose tablets, and glucose gel.? Retest blood glucose in 15 minutes, if blood glucose is still under 80 ,repeat rule of 15's. If blood glucose is under 50, take 30 grams of fast acting carbohydrates If you are having hypoglycemia, or insulin reaction, more that a few times a week, call MD or paraeducator F/U BG check Patient instruction: CGM provides information on blood glucose control throughout the day, including hyperglycemia and hypoglycemia. ? Continue to monitor blood glucose as instructed. Follow nutrition guidelines provided. Report any discomfort promptly to health care provider. ?Stay well-hydrated. You can bathe ,shower, swim and exerce while wearing the glucose sensor. Do not submerge glucose sensor in water for more than 30 minutes. Remove sensor for MRI or CAT scan. Avoid Xray machine in airports - remove sensor or request wand Follow-up with paraeducator in 6 weeks Coding Level of Care Code Est Pt Level 1 (76026) Diagnoses Diabetes E11.9
== END 2023-09-08 10:39 | disposition home or self-care (01) ==
PROVIDERS: PCP Nurse Practitioner Family; Visit Provider Registered Nurse Diabetes Educator
DX: E11.9 Type 2 diabetes mellitus without complications (principal)

== ENCOUNTER → 2023-09-08 09:58 | Outpatient (BNVA) | payer MEDICARE, MEDICAID, SELFPAY ==
[2023-05-18 13:38] VITALS: BP 190/120; BMI 29.0
== END ==
PROVIDERS: PCP Nurse Practitioner Family; Visit Provider Registered Nurse Diabetes Educator
DX: E11.22 Type 2 diabetes mellitus with diabetic chronic kidney disease (principal); N18.9 Chronic kidney disease, unspecified; Z99.2 Dependence on renal dialysis; Z71.3 Dietary counseling and surveillance
CPT/HCPCS: 97802; 99211

== ENCOUNTER 2023-09-16 13:21 | Outpatient (AMB) | payer MEDICARE, MEDICAID, SELFPAY ==
[2023-05-18 13:38] VITALS: BP 190/120; BMI 29.0
[2023-09-16 13:23] VITALS: BP 164/96; PULSE 63; BMI 27.3
--- NOTE | 2023-09-16 13:23 | MHC.OFFVIS ---
Vital Signs 09/16/23 13:23 Height 5 ft 7 in Weight 174 lb 6.17 oz BMI 27.3 BP 164/96 H Blood Pressure Location Rt brachial Position Sitting Pulse 63 Pulse Source Pulse Oximeter Intake Visit Reasons: f/u Type 2 DM-lvm Intake Note: Patient presents today to follow up on D2MT. Last Diabetic Eye exam: 03/2024 Last Podiatry Visit:Doesn't have one Random Glucose: 249 mg/dl HgA1c: 6.1% Tooth Cutter Clutch Required: No Accompanied by: Friend Allergies amoxicillin Allergy (Unknown, Verified 09/16/23 13:30) rash cefaclor [From Ceclor] Allergy (Unknown, Verified 09/16/23 13:30) RASH cephalexin Allergy (Unknown, Verified 09/16/23 13:30) rash Cephalosporins [CEPHALOSPORINS] Allergy (Unknown, Verified 09/16/23 13:30) RASH ALL OVER cephradine [From VELOSEF] Allergy (Unknown, Verified 09/16/23 13:30) RASH Penicillins [PENICILLINS] Allergy (Unknown, Verified 09/16/23 13:30) RASH gabapentin [GABAPENTIN] Adverse Reaction (Unknown, Verified 09/16/23 13:30) RESTLESS LEGS, Body becomes very uncomfortable HPI Comments Details: 43 YO F who is seen in consultation for T2DM at the request of PCP. Initially diagnosed with T2DM in 17 yrs ago . Was initially started on treatment with METFORMIN. Current regimen XIGDUO . 10/1000mg QD D/C by renal , Trulicity 1.5 mg Qwkly had to stop for procedures . Basaglar 20 units Unfortunately, Did not bring glucometer or log book or sensor to visit No hypoglycemia Family history of T2DM in father and brother . Has eyes checked yearly, last eye exam 04/2023 sees retina every mo for retinal bleed in L eye , denies retinopathy. Denies neuropathy, not sees podiatry. Has CKD stage 3 nephropathy, on NANETTE/ARB. Has HLD,Not on statin. Foolowed by cardiology Denies CAD.Has CM Not Had diabetes education recently . [facility] Medical History (Updated 09/09/23 @ 11:06 by Jennifer Simons, RD, LDN) Legally blind Vascular dialysis catheter in place Hypertensive retinopathy Macular edema Diabetic retinopathy Hyperglycemia CHF (congestive heart failure) Hypertensive urgency Malignant hypertension CKD (chronic kidney disease) Heart block AV second degree Hypersomnia Cardiomyopathy CKD (chronic kidney disease) stage 2, GFR 60-89 ml/min Nicotine dependence, cigarettes, uncomplicated (~1999) Eclampsia Fatty liver Heart failure, unspecified (~09/2020) History of DVT (deep vein thrombosis) Diabetes mellitus Migraines Sjogren's disease Lupus Rheumatoid arthritis High cholesterol Anxiety PTSD (post-traumatic stress disorder) Bipolar 1 disorder H/O mixed connective tissue disease HTN (hypertension) Surgical History (Updated 09/03/23 @ 10:00 by La Nena Prince) History of H/O eye surgery History of hip surgery Tubal ligation status History of bronchoscopy (~11/2020) History of cholecystectomy (~05/2014) Family History Father Substance use disorder Mental health disorder Brother Substance use disorder Mental health disorder Brother Substance use disorder Mental health disorder Other Diabetes HTN (hypertension) Social History Household Members: Children Household Members Other:: 3 Housing: House Are you a primary care program resident to a significant other at home: No Do you presently have visiting nurse or other home services: No Alcohol intake: never Patient Tobacco Use Status: Former Tobacco user Tobacco use type: Cigarette Cigarette Packs Per Day: 1 Cigarettes Per Day: 20.0 Years Smoked: 20 e-Cigarette/Vaping Use: Never Used Second Hand Smoke Exposure: No Substance Use Type: Marijuana Advance Directives Date on File: 06/03/21 service: No Current occupational status: disabled Cognitive needs: No Hearing needs: No Vision needs: No Physical Exam Vital Signs: Last Vital Signs Pulse 63 09/16/23 13:23 BP 164/96 H 09/16/23 13:23 BMI result Body Mass Index 27.3 Absence of Cushingoid features. Absence of acromegalic features. Neck exam reveals nl size thyroid about 15 gms. No thyroid nodules palpable. No carotid bruits present. Lungs CTA. Heart S1 S2, Reg R/R. No M/R/ G. Skin exam reveals absence of vitiligo or acanthosis nigricans. Abdominal exam reveals Soft NT/ND with NA BS. No organomegaly present. Neck Other: . Extrem Other: Visual exam of foot performed. No ulcerations or open lesions. No onchomycosis, no callouses.Pulses 2 + distally Sensation intact to monofilament exam. Vibratory sensation sensed is decreased with 128 Hz tuning fork Results AMB Hemoglobin A1c AMB Hemoglobin A1c 6.1 % Last Edit by SANIA Carolina on 09/16/23 13:56 Results Reviewed Results Reviewed: Laboratory Last Values Glucose (Clinic) 249 mg/dL (60-115) H 09/16/23 13:32 Hgb A1c (Clinic) 6.1 % (4.0-6.0) H 09/16/23 13:35 Assessment & Plan Assessment & Plan (1) Uncontrolled type 2 diabetes mellitus with hyperglycemia: Code(s): E11.65 - Type 2 diabetes mellitus with hyperglycemia Plan: This is a 43-year-old white female with a history of type 2 diabetes [facility] with uncertain glycemic control and known microvascular complications namely CKD stage 3. Chronic kidney and liver disease may affect and falsely lower the hemoglobin A1c. Based on Dexcom data few weeks ago, patient was having post-prandial breakfast hypoglycemia after dialysis days are Thursday and Thursday Plan is initiate Humalog 8 units prior to breakfast on dialysis days Thursday.. She was scheduled appointment with the conservation educator. I also took the liberty referring the patient to automation qa lead (2) T2DM (type 2 diabetes mellitus): Code(s): E11.9 - Type 2 diabetes mellitus without complications Category: Medical Plan: Plan as per above Orders: Orders AMB Hemoglobin A1c Today E11.9 - Type 2 diabetes mellitus without complications, Z13.9 - Encounter for screening, unspecified Referrals Podiatry Referral E11.9 - Type 2 diabetes mellitus without complications Medications: New Humalog KwikPen Insulin (insulin lispro) 8 units before breakfast on , , Thursday 8 units (0.08 mL) subcut DAILY 15 mL 5RF NS dulaglutide (Trulicity) 1.5 mg (0.5 mL) subcut TH 2 mL 4RF Coding Level of Care Code Est Pt Level 4 (22282) Diagnoses Uncontrolled type 2 diabetes mellitus with hyperglycemia E11.65 T2DM (type 2 diabetes mellitus) E11.9
[2023-09-16 13:37] LABS: Glucose, Whole Blood 249 mg/dL (60-115)
== END 2023-09-16 13:54 | disposition home or self-care (01) ==
PROVIDERS: PCP Nurse Practitioner Family; Visit Provider Internal Medicine Endocrinology, Diabetes & Metabolism
DX: Z13.9 Encounter for screening, unspecified (principal); E11.9 Type 2 diabetes mellitus without complications; E11.65 Type 2 diabetes mellitus with hyperglycemia
CPT/HCPCS: 99214

== ENCOUNTER → 2023-09-16 13:21 | Outpatient (BNVA) | payer MEDICARE, MEDICAID, SELFPAY ==
[2023-05-18 13:38] VITALS: BP 190/120; BMI 29.0
== END ==
PROVIDERS: PCP Nurse Practitioner Family; Visit Provider Internal Medicine Endocrinology, Diabetes & Metabolism
DX: E11.22 Type 2 diabetes mellitus with diabetic chronic kidney disease (principal); E11.65 Type 2 diabetes mellitus with hyperglycemia; N18.30 Chronic kidney disease, stage 3 unspecified; Z79.85 Long-term (current) use of injectable non-insulin antidiabetic drugs; Z79.4 Long term (current) use of insulin; Z99.2 Dependence on renal dialysis
CPT/HCPCS: 82947; 83036; 99212

== ENCOUNTER 2023-10-06 12:20 | Outpatient (REF) | payer MEDICARE, MEDICAID, SELFPAY ==
[2023-05-18 13:38] VITALS: BP 190/120; BMI 29.0
[2023-10-10 18:59] LABS: HPV mRNA E6/E7 Not Detected (Not Detected)
== END 2023-10-06 12:21 | disposition home or self-care (01) ==
LOC: HO.LNP 12:20
PROVIDERS: PCP Nurse Practitioner Family; Visit Provider Obstetrics & Gynecology
DX: Z01.419 Encounter for gynecological examination (general) (routine) without abnormal findings (principal); Z11.51 Encounter for screening for human papillomavirus (HPV)
CPT/HCPCS: 87624; 88175; G0101; Q0091

== ENCOUNTER 2023-10-06 12:20 | Outpatient (AMB) | payer MEDICARE, MEDICAID, SELFPAY ==
[2023-05-18 13:38] VITALS: BP 190/120; BMI 29.0
--- NOTE | 2023-10-06 12:23 | MHC.OFFVIS ---
Vital Signs 10/06/23 12:24 Height 5 ft 7 in Weight 171 lb BMI 26.8 BP 140/90 H Intake Visit Reasons: New patient Annual Background Check Coordinator: Background Check Coordinator Present (Anahy) Allergies amoxicillin Allergy (Unknown, Verified 10/06/23 12:27) rash cefaclor [From Ceclor] Allergy (Unknown, Verified 10/06/23 12:27) RASH cephalexin Allergy (Unknown, Verified 10/06/23 12:27) rash Cephalosporins [CEPHALOSPORINS] Allergy (Unknown, Verified 10/06/23 12:27) RASH ALL OVER cephradine [From VELOSEF] Allergy (Unknown, Verified 10/06/23 12:27) RASH Penicillins [PENICILLINS] Allergy (Unknown, Verified 10/06/23 12:27) RASH gabapentin [GABAPENTIN] Adverse Reaction (Unknown, Verified 10/06/23 12:27) RESTLESS LEGS, Body becomes very uncomfortable Is last menstrual period known: Yes Last menstrual period: 10/04/23 HPI Comments Details: Presenting for annual exam. No complaints. Last Pap/HPV was negative in 02/21 Last Mammogram was BI-RADS 1 in 07/28 [facility] Medical History Legally blind Vascular dialysis catheter in place Hypertensive retinopathy Macular edema Diabetic retinopathy Hyperglycemia CHF (congestive heart failure) Hypertensive urgency Malignant hypertension CKD (chronic kidney disease) Heart block AV second degree Hypersomnia Cardiomyopathy CKD (chronic kidney disease) stage 2, GFR 60-89 ml/min Nicotine dependence, cigarettes, uncomplicated (~1999) Eclampsia Fatty liver Heart failure, unspecified (~09/2020) History of DVT (deep vein thrombosis) Diabetes mellitus Migraines Sjogren's disease Lupus Rheumatoid arthritis High cholesterol Anxiety PTSD (post-traumatic stress disorder) Bipolar 1 disorder H/O mixed connective tissue disease HTN (hypertension) Surgical History History of H/O eye surgery History of hip surgery Tubal ligation status History of bronchoscopy (~11/2020) History of cholecystectomy (~05/2014) Family History Father Substance use disorder Mental health disorder Brother Substance use disorder Mental health disorder Brother Substance use disorder Mental health disorder Other Diabetes HTN (hypertension) Social History Household Members: Children Household Members Other:: 3 Housing: House Are you a primary home health aide caregiver to a significant other at home: No Do you presently have visiting nurse or other home services: No Alcohol intake: never Patient Tobacco Use Status: Former Tobacco user Tobacco use type: Cigarette Cigarette Packs Per Day: 1 Cigarettes Per Day: 20.0 Years Smoked: 20 e-Cigarette/Vaping Use: Never Used Second Hand Smoke Exposure: No Substance Use Type: Marijuana Advance Directives Date on File: 06/03/21 service: No Current occupational status: disabled Cognitive needs: No Hearing needs: No Vision needs: No Female Reproductive History Menstrual Date of last menstrual period: 10/04/23 control method: permanent sterilization Permanent Sterilization: BTL Total pregnancies: 3 Full term: 2 Premature: 1 Number of Living Children: 2 Date of last pap smear: 02/22/18 (neg pap and hpv) Date of Mammogram: 07/21/23 Review of Systems Const All systems reviewed & are unremarkable except as noted in HPI and below Card Reports as per HPI Resp Reports as per HPI GI Reports as per HPI and Reports no additional complaints Reports as per HPI Physical Exam Vital Signs: Last Vital Signs BP 140/90 H 10/06/23 12:24 BMI result Body Mass Index 26.8 Const General: cooperative, healthy appearing and comfortable Chest Chest palpation & inspection: normal inspection of the chest and normal palpation of entire chest wall Breast/axilla inspection: normal inspection of the breasts and normal inspection of the axillae Breast/axilla palpation: normal palpation of the breasts, normal palpation of the axillae and no axillary lymphadenopathy Resp Effort & Inspection: normal respiratory effort Auscultation: clear to auscultation bilaterally Percussion: percussion normal Cardio Palpation: normal PMI Rate: regular rate Rhythm: regular rhythm Heart sounds: no murmurs and no rubs Peripheral pulses: Peripheral pulses 2+ throughout GI Inspection: Yes normal to inspection Palpation (GI): Soft to palpation, nontender, no guarding, not rigid and No hepatosplenomegaly present Percussion: Yes normal to percussion Auscultation: normal bowel sounds Rectal Exam - Female: deferred General: Yes bladder normal to palpation External Female Exam: No lesion Speculum Exam - Vagina: normal appearance of the vagina, normal palpation, normal vaginal discharge and not erythematous Speculum Exam - Cervix: normal appearance of the cervix and normal palpation Bimanual exam- vagina & uterus: normal bimanual exam, normal palpation, uterine size normal, bladder normal to palpation, consistency normal and normal palpation Bimanual Exam- Adnexa, other: normal adnexae, no masses and no tenderness Assessment & Plan Assessment & Plan (1) Well woman exam: Code(s): Z01.419 - Encounter for gynecological examination (general) (routine) without abnormal findings Category: Medical Plan: Cotesting done. Instructions given the patient to schedule next screening Mammogram in 07/29. The patient was instructed to perform monthly self-breast exams and to schedule an annual exam in a year; All questions answered and the patient verbalized understanding. Instructed the patient to schedule annual exam in a year Coding Level of Care Code New Pt Prev Care 40-64y(93222) Diagnoses Well woman exam Z01.419
[2023-10-06 12:24] VITALS: BP 140/90; BMI 26.8
== END 2023-10-06 13:05 | disposition home or self-care (01) ==
LOC: HO.HWS 12:20
PROVIDERS: PCP Nurse Practitioner Family; Visit Provider Obstetrics & Gynecology
DX: Z01.419 Encounter for gynecological examination (general) (routine) without abnormal findings (principal)
CPT/HCPCS: G0101; Q0091

== ENCOUNTER 2023-10-20 10:35 | Outpatient (AMB) | payer MEDICARE, MEDICAID, SELFPAY ==
[2023-05-18 13:38] VITALS: BP 190/120; BMI 29.0
--- NOTE | 2023-10-20 10:55 | A.OFFVIS_ITS ---
Intake Intake Visit Reasons: 30 min/CONFIRMED Immigration Associate Required: No Accompanied by: Other Relationship Allergies amoxicillin Allergy (Unknown, Verified 10/06/23 12:27) rash cefaclor [From Ceclor] Allergy (Unknown, Verified 10/06/23 12:27) RASH cephalexin Allergy (Unknown, Verified 10/06/23 12:27) rash Cephalosporins [CEPHALOSPORINS] Allergy (Unknown, Verified 10/06/23 12:27) RASH ALL OVER cephradine [From VELOSEF] Allergy (Unknown, Verified 10/06/23 12:27) RASH Penicillins [PENICILLINS] Allergy (Unknown, Verified 10/06/23 12:27) RASH gabapentin [GABAPENTIN] Adverse Reaction (Unknown, Verified 10/06/23 12:27) RESTLESS LEGS, Body becomes very uncomfortable HPI Comprehensive Diabetes Asmnt Most Recent Diabetes Results: Creatinine 3.12 mg/dL (0.5-1.4) H 09/04/23 Blood Urea Nitrogen 17 mg/dL (9-16) H 09/04/23 Sodium 141 mmol/L (135-145) 09/04/23 Potassium 4.1 mmol/L (3.3-5.1) 09/04/23 Chloride 104 mmol/L (96-108) 09/04/23 Carbon Dioxide 29 mmol/L (22-29) 09/04/23 Calcium 9.7 mg/dL (8.4-10.2) 09/04/23 AST 12 U/L (5-31) 09/04/23 ALT 6 U/L (0-31) 09/04/23 Total Protein 7.3 g/dL (6.5-8.0) 09/04/23 Albumin 4.4 g/dL (3.5-5.0) 09/04/23 [facility] Medical History Legally blind Vascular dialysis catheter in place Hypertensive retinopathy Macular edema Diabetic retinopathy Hyperglycemia CHF (congestive heart failure) Hypertensive urgency Malignant hypertension CKD (chronic kidney disease) Heart block AV second degree Hypersomnia Cardiomyopathy CKD (chronic kidney disease) stage 2, GFR 60-89 ml/min Nicotine dependence, cigarettes, uncomplicated (~1999) Eclampsia Fatty liver Heart failure, unspecified (~09/2020) History of DVT (deep vein thrombosis) Diabetes mellitus Migraines Sjogren's disease Lupus Rheumatoid arthritis High cholesterol Anxiety PTSD (post-traumatic stress disorder) Bipolar 1 disorder H/O mixed connective tissue disease HTN (hypertension) Surgical History History of H/O eye surgery History of hip surgery Tubal ligation status History of bronchoscopy (~11/2020) History of cholecystectomy (~05/2014) Family History Father Substance use disorder Mental health disorder Brother Substance use disorder Mental health disorder Brother Substance use disorder Mental health disorder Other Diabetes HTN (hypertension) Social History Household Members: Children Household Members Other:: 3 Housing: House Are you a primary resident care provider to a significant other at home: No Do you presently have visiting nurse or other home services: No Alcohol intake: never Patient Tobacco Use Status: Former Tobacco user Tobacco use type: Cigarette Cigarette Packs Per Day: 1 Cigarettes Per Day: 20.0 Years Smoked: 20 e-Cigarette/Vaping Use: Never Used Second Hand Smoke Exposure: No Substance Use Type: Marijuana Advance Directives Date on File: 06/03/21 service: No Current occupational status: disabled Cognitive needs: No Hearing needs: No Vision needs: No Assessment & Plan Assessment & Plan (1) T2DM (type 2 diabetes mellitus): Code(s): E11.9 - Type 2 diabetes mellitus without complications Plan: Personal Continuous Glucose Monitor: Patients CGM information reviewed Reviewed patient's sensor data: Hypoglycemia: ?1% Hyperglycemia:? 8% Time in Range:? 91 % Average glucose for the last 2 weeks? 130 mg/dL Patient has restarted Trulicity 1.5 mg, since restarting Trulicity reports she no longer uses Humalog before meals Patient having several overnight hypoglycemic events Reviewed with patient how to treat hypoglycemia with rule of 15s Rule of 15 handout given to patient, to treat hypoglycemia Reviewed how to interpret trend arrows Reminded patient that to check finger sticks if symptoms do not match sensor reading. Discussed lag time between finger stick and sensor data.? Patient able to insert sensor independently at home without issue.? Recommended to patient she decrease Lantus 20 units to Lantus 16 units, if hypoglycemia continues reduce Lantus to 14 units Patient reports she has multiple appointments right now, instructed patient she does not need to make another appointment with handle finisher unless she feels it is necessary Portions of this note were created using voice recognition software, please excuse any words or phrases that may have been misinterpreted. Patient Instructions: Decrease Lantus from 20 units to 16 units if you are still having low glucose decrease to 14 units Use rule of 15s to treat any glucose under 70mg/dL Coding Level of Care Code Est Pt Level 1 (87488) Diagnoses T2DM (type 2 diabetes mellitus) E11.9
== END 2023-10-20 11:03 | disposition home or self-care (01) ==
PROVIDERS: PCP Nurse Practitioner Family; Visit Provider Registered Nurse Diabetes Educator
DX: E11.9 Type 2 diabetes mellitus without complications (principal)

== ENCOUNTER → 2023-10-20 10:35 | Outpatient (BNVA) | payer MEDICARE, MEDICAID, SELFPAY ==
[2023-05-18 13:38] VITALS: BP 190/120; BMI 29.0
== END ==
PROVIDERS: PCP Nurse Practitioner Family; Visit Provider Registered Nurse Diabetes Educator
DX: E11.9 Type 2 diabetes mellitus without complications (principal)
CPT/HCPCS: 99211

== ENCOUNTER 2023-10-21 12:40 | Outpatient (AMB) | payer MEDICARE, MEDICAID, SELFPAY ==
[2023-05-18 13:38] VITALS: BP 190/120; BMI 29.0
--- NOTE | 2023-10-21 12:46 | A.OFFVIS_ITS ---
Vital Signs 10/21/23 12:47 Height 5 ft 7 in Weight 165 lb 9.074 oz BMI 25.9 BP 130/62 Blood Pressure Location Rt brachial Position Sitting Pulse 87 Pulse Source Pulse Oximeter Intake Visit Reasons: F/UP switching from NS/ to KM Intake Note: pt state that she is doing fine. Light Armored Vehicle Officer Required: No Accompanied by: Self / Same As Patient Allergies amoxicillin Allergy (Unknown, Verified 10/06/23 12:27) rash cefaclor [From Ceclor] Allergy (Unknown, Verified 10/06/23 12:27) RASH cephalexin Allergy (Unknown, Verified 10/06/23 12:27) rash Cephalosporins [CEPHALOSPORINS] Allergy (Unknown, Verified 10/06/23 12:27) RASH ALL OVER cephradine [From VELOSEF] Allergy (Unknown, Verified 10/06/23 12:27) RASH Penicillins [PENICILLINS] Allergy (Unknown, Verified 10/06/23 12:27) RASH gabapentin [GABAPENTIN] Adverse Reaction (Unknown, Verified 10/06/23 12:27) RESTLESS LEGS, Body becomes very uncomfortable Medication List - Last Reconciled 10/21/23 by Mike Mccray MD albuterol sulfate 90 mcg/actuation 1 inh inhalation QID PRN 30 days alcohol swabs (Alcohol Prep Pads) 1 pad topical QID blood pressure test kit-large daily use blood sugar diagnostic (FreeStyle Lite Strips) Test four times a day or as directed. blood sugar diagnostic (FreeStyle Lite Strips) As directed- tests 4X/day blood-glucose meter (FreeStyle Lite Meter kit) As Directed blood-glucose meter (FreeStyle Lite Meter kit) As directed tests 4 X/day carvedilol 50 mg PO BID clonidine HCl 0.2 mg See Protocol PO BID dulaglutide (Trulicity) 1.5 mg (0.5 mL) subcut TH famotidine 20 mg PO DAILY Humalog KwikPen Insulin (insulin lispro) 8 units (0.08 mL) subcut DAILY NS insulin glargine (Basaglar KwikPen U-100 Insulin) 20 units (0.2 mL) subcut QAM lancets (FreeStyle Lancets) Test four times a day or as directed. lancets (FreeStyle Lancets) As directed- tests 4X/day nifedipine ER 1 tab PO BID pen needle, diabetic Use four times a day or as directed. sacubitril-valsartan 24-26 mg (Entresto) 1 tab See Protocol PO BID tamsulosin 0.4 mg PO DAILY HPI Comments Details: Pleasant 43-year-old lady who is here for follow-up. She previously was following up with Dr. Abraham. She was seen in the hospital in 08/24/2023 when she presented with significantly elevated blood pressure and had NSTEMI. This was thought to be secondary to type 2 injury. ECHO did not show any wall motion abnormalities and EF was normal. She also had some visual changes at that time and ophthalmology was involved. She also was started on hemodialysis because of worsening kidney function. On follow-up today she has been doing well. Blood pressure is well controlled. She is taking medication regularly. She is on hemodialysis Thursday and Thursday in [place]. No chest discomfort. Overall doing well and clinically stable. She had eye surgery in her left eye vision has improved. She is blind in right eye. [facility] Medical History Legally blind Vascular dialysis catheter in place Hypertensive retinopathy Macular edema Diabetic retinopathy Hyperglycemia CHF (congestive heart failure) Hypertensive urgency Malignant hypertension CKD (chronic kidney disease) Heart block AV second degree Hypersomnia Cardiomyopathy CKD (chronic kidney disease) stage 2, GFR 60-89 ml/min Nicotine dependence, cigarettes, uncomplicated (~1999) Eclampsia Fatty liver Heart failure, unspecified (~09/2020) History of DVT (deep vein thrombosis) Diabetes mellitus Migraines Sjogren's disease Lupus Rheumatoid arthritis High cholesterol Anxiety PTSD (post-traumatic stress disorder) Bipolar 1 disorder H/O mixed connective tissue disease HTN (hypertension) Surgical History History of H/O eye surgery History of hip surgery Tubal ligation status History of bronchoscopy (~11/2020) History of cholecystectomy (~05/2014) Family History Father Substance use disorder Mental health disorder Brother Substance use disorder Mental health disorder Brother Substance use disorder Mental health disorder Other Diabetes HTN (hypertension) Social History Household Members: Children Household Members Other:: 3 Housing: House Are you a primary acute care physician to a significant other at home: No Do you presently have visiting nurse or other home services: No Alcohol intake: never Patient Tobacco Use Status: Former Tobacco user Tobacco use type: Cigarette Cigarette Packs Per Day: 1 Cigarettes Per Day: 20.0 Years Smoked: 20 e-Cigarette/Vaping Use: Never Used Second Hand Smoke Exposure: No Substance Use Type: Marijuana Advance Directives Date on File: 06/03/21 service: No Current occupational status: disabled Cognitive needs: No Hearing needs: No Vision needs: No Review of Systems Const Denies chills, Denies fatigue, Denies fever(s), Denies frequent falls, Denies weakness, Denies weight gain and Denies weight loss ENT Denies dizziness Card Denies chest pain, Denies leg edema, Denies lightheadedness, Denies p alpitations, Denies dyspnea and Denies dyspnea on exertion Resp Denies cough, Denies dyspnea and Denies dyspnea on exertion GI Denies hematochezia Musc Denies abnormal gait, Denies muscle weakness, Denies numbness, Denies radiating pain into limb and Denies tingling Neuro Denies abnormal gait, Denies dizziness, Denies frequent falls, Denies numbness, Denies tingling and Denies weakness Endo Denies fatigue and Denies palpitations Physical Exam Vital Signs: BMI result Body Mass Index 25.9 GENERAL APPEARANCE: in no acute distress, pleasant. NECK: no carotid bruit, no jugular venous distention. SKIN: no suspicious lesions, warm and dry. Right chest wall PermCath. HEART: Soft systolic murmur aortic area, regular rate and rhythm. LUNGS: clear to auscultation bilaterally. ABDOMEN: soft, nontender. EXTREMITIES: no edema. PERIPHERAL PULSES: equal. Left forearm AV fistula. NEUROLOGIC: No gross deficits, AAO X 3 Assessment & Plan Assessment & Plan (1) Malignant hypertension: Code(s): I10 - Essential (primary) hypertension Category: Medical (2) NSTEMI (non-ST elevated myocardial infarction): Code(s): I21.4 - Non-ST elevation (NSTEMI) myocardial infarction Category: Medical Plan [age] year female with malignant hypertension and type 2 [place]. Echocardiography showed normal LVEF. No wall motion abnormalities were noted. She since has been started on hemodialysis due to advanced CKD and hyperkalemia. Doing well with dialysis at this point. She has a left forearm fistula made recently and as it matures she has a right chest wall PermCath. Blood pressure control is much better. No chest pains on follow-up. She previously had angiography 2 years ago which did not reveal any significant coronary disease. She is on clonidine and it has significant withdrawal potential. I have advised her that clonidine should not be stopped and she should not run out of this medication in particular. She will see us back in 4 months. Thank you for allowing me to participate in the care of your patient. Please feel free to contact me if you have any questions. Coding Level of Care Code Est Pt Level 4 (31959) Diagnoses Malignant hypertension I10 NSTEMI (non-ST elevated myocardial infarction) I21.4
[2023-10-21 12:47] VITALS: BP 130/62; PULSE 87; BMI 25.9
== END 2023-10-21 13:08 | disposition home or self-care (01) ==
LOC: HO.HCS 12:41
PROVIDERS: PCP Nurse Practitioner Family; Visit Provider Internal Medicine Cardiovascular Disease
DX: I10 Essential (primary) hypertension (principal); I21.4 Non-ST elevation (NSTEMI) myocardial infarction
CPT/HCPCS: 99214

== ENCOUNTER → 2023-10-21 12:40 | Outpatient (BNVA) | payer MEDICARE, MEDICAID, SELFPAY ==
[2023-05-18 13:38] VITALS: BP 190/120; BMI 29.0
== END ==
PROVIDERS: PCP Nurse Practitioner Family; Visit Provider Internal Medicine Cardiovascular Disease
DX: I10 Essential (primary) hypertension (principal); I21.4 Non-ST elevation (NSTEMI) myocardial infarction; Z79.899 Other long term (current) drug therapy
CPT/HCPCS: 99212

== ENCOUNTER 2023-10-27 10:05 | Outpatient (AMB) | payer MEDICARE, MEDICAID, SELFPAY ==
[2023-05-18 13:38] VITALS: BP 190/120; BMI 29.0
[2023-10-27 10:15] VITALS: BMI 26.2
--- NOTE | 2023-10-27 10:15 | MHC.AMNUTRGE ---
VS Expanded 10/27/23 10:15 Height 5 ft 7 in Weight 167 lb 1.766 oz BMI 26.2 Intake Visit Reasons: DM/LVM Allergies amoxicillin Allergy (Unknown, Verified 10/06/23 12:27) rash cefaclor [From Ceclor] Allergy (Unknown, Verified 10/06/23 12:27) RASH cephalexin Allergy (Unknown, Verified 10/06/23 12:27) rash Cephalosporins [CEPHALOSPORINS] Allergy (Unknown, Verified 10/06/23 12:) RASH ALL OVER cephradine [From VELOSEF] Allergy (Unknown, Verified 10/06/23 12:) RASH Penicillins [PENICILLINS] Allergy (Unknown, Verified 10/06/23 12:) RASH gabapentin [GABAPENTIN] Adverse Reaction (Unknown, Verified 10/06/23 12:) RESTLESS LEGS, Body becomes very uncomfortable Nutrition Presentation Details: Pt presents MNT f/u for T2DM with CKD on dialysis Pt is on hemodialysis Mon, Thu, Thursday Pt reports understanding carbohydrate sources of foods. Pt reports having lack of appetite on dialysis days. Noted 8 lbs weight loss in a month BS Monitoring Most Recent Diabetes Results: Creatinine 3.12 mg/dL (0.5-1.4) H 09/04/23 Blood Urea Nitrogen 17 mg/dL (9-16) H 09/04/23 Sodium 141 mmol/L (135-145) 09/04/23 Potassium 4.1 mmol/L (3.3-5.1) 09/04/23 Chloride 104 mmol/L (96-108) 09/04/23 Carbon Dioxide 29 mmol/L (22-29) 09/04/23 Calcium 9.7 mg/dL (8.4-10.2) 09/04/23 AST 12 U/L (5-31) 09/04/23 ALT 6 U/L (0-31) 09/04/23 Total Protein 7.3 g/dL (6.5-8.0) 09/04/23 Albumin 4.4 g/dL (3.5-5.0) 09/04/23 [facility] Medical History Legally blind Vascular dialysis catheter in place Hypertensive retinopathy Macular edema Diabetic retinopathy Hyperglycemia CHF (congestive heart failure) Hypertensive urgency Malignant hypertension CKD (chronic kidney disease) Heart block AV second degree Hypersomnia Cardiomyopathy CKD (chronic kidney disease) stage 2, GFR 60-89 ml/min Nicotine dependence, cigarettes, uncomplicated (~1999) Eclampsia Fatty liver Heart failure, unspecified (~09/2020) History of DVT (deep vein thrombosis) Diabetes mellitus Migraines Sjogren's disease Lupus Rheumatoid arthritis High cholesterol Anxiety PTSD (post-traumatic stress disorder) Bipolar 1 disorder H/O mixed connective tissue disease HTN (hypertension) Surgical History (Reviewed 10/21/23 @ 12:50 by Kiersten Rebolledo [facility]) History of H/O eye surgery History of hip surgery Tubal ligation status History of bronchoscopy (~11/2020) History of cholecystectomy (~05/2014) Family History Father Substance use disorder Mental health disorder Brother Substance use disorder Mental health disorder Brother Substance use disorder Mental health disorder Other Diabetes HTN (hypertension) Social History (Reviewed 10/21/23 @ 12:50 by Kiersten Rebolledo [facility]) Household Members: Children Household Members Other:: 3 Housing: House Are you a primary hearing healthcare practitioner to a significant other at home: No Do you presently have visiting nurse or other home services: No Alcohol intake: never Patient Tobacco Use Status: Former Tobacco user Tobacco use type: Cigarette Cigarette Packs Per Day: 1 Cigarettes Per Day: 20.0 Years Smoked: 20 e-Cigarette/Vaping Use: Never Used Second Hand Smoke Exposure: No Substance Use Type: Marijuana Advance Directives Date on File: 06/03/21 service: No Current occupational status: disabled Cognitive needs: No Hearing needs: No Vision needs: No Assessment & Plan Assessment & Plan (1) T2DM (type 2 diabetes mellitus): Code(s): E11.9 - Type 2 diabetes mellitus without complications Category: Medical Plan: Wt: 79.5 Kg ( 09/2023 ), 76 kg (10/2023) Est kcal needs as per MSJ: 2100 (40% carb, 30% protein/fat) Est fluid needs as per 25-30 ml/d: 2300 (unless otherwise specified by MD) Est prot per day as per 1-1.2 g/kg bw: 91 g Recommend fiber intake : 8-10 g per day and gradually increase to 25-28 g per day for women and 35-38 g for men or as tolerated Recommend sodium intake per day : less than 2000 mg Educated patient on: ( R = reviewed V = verbalizes understanding N/R = needs review N/A = not applicable Food sources of carbohydrate, adequate serving sizes and its role in various health conditions: R Differences between complex carbohydrates a simple carbohydrates, role of fiber in diet: R V N/R Lean protein sources of foods: R Differences between types of fats and role in diet (mono on saturated fat fatty acids, saturated fatty acids, trans fats): R V N/R Food sources of sodium in salt and healthy modifications for heart health in kidney health: R V Vitamins and minerals in foods : R Healthy plate method concept: R V N/R Physical activity: Benefits a precaution: R V N/R Hypoglycemia protocol (rule of 15): R, V Dietary prevention of Hyperglycemia: R , V Patient Instructions: Incorporate snack like meals : 1/2 sand )egg salad, chicken salad, tuna salad as example and fruit cup or yogurt (glucerna- nutritional supplement vanilla flavor Coding Level of Care Code Nutr Indiv Subseq (12994) Diagnoses T2DM (type 2 diabetes mellitus) E11.9 Time Spent (min) 30
== END 2023-10-27 10:44 | disposition home or self-care (01) ==
PROVIDERS: PCP Nurse Practitioner Family; Visit Provider Dietitian, Registered
DX: E11.9 Type 2 diabetes mellitus without complications (principal)

== ENCOUNTER → 2023-10-27 10:05 | Outpatient (BNVA) | payer MEDICARE, MEDICAID, SELFPAY ==
[2023-05-18 13:38] VITALS: BP 190/120; BMI 29.0
== END ==
PROVIDERS: PCP Nurse Practitioner Family; Visit Provider Dietitian, Registered
DX: E11.9 Type 2 diabetes mellitus without complications (principal); Z71.3 Dietary counseling and surveillance
CPT/HCPCS: 97803

== ENCOUNTER 2023-11-09 11:06 | Outpatient (AMB) | payer MEDICARE, MEDICAID, SELFPAY ==
[2023-05-18 13:38] VITALS: BP 190/120; BMI 29.0
[2023-11-09 11:30] VITALS: BP 140/72; BMI 25.9
--- NOTE | 2023-11-09 11:30 | MHC.OFFVIS ---
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 Information Interpreted: non-clinical & clinical Accompanied by: Employee Allergies amoxicillin Allergy (Unknown, Verified 11/09/23 11:36) rash cefaclor [From Ceclor] Allergy (Unknown, Verified 11/09/23 11:36) RASH cephalexin Allergy (Unknown, Verified 11/09/23 11:36) rash Cephalosporins [CEPHALOSPORINS] Allergy (Unknown, Verified 11/09/23 11:36) RASH ALL OVER cephradine [From VELOSEF] Allergy (Unknown, Verified 11/09/23 11:36) RASH Penicillins [PENICILLINS] Allergy (Unknown, Verified 11/09/23 11:36) RASH gabapentin [GABAPENTIN] Adverse Reaction (Unknown, Verified 11/09/23 11:36) RESTLESS LEGS, Body becomes very uncomfortable HPI Comments Details: Presenting complaining of heavy menstrual cycles associated with passage of blood clots the pelvic cramping. Last co testing was in 10/27 was negative Last mammogram was in 07/28 [facility] Medical History Legally blind Vascular dialysis catheter in place Hypertensive retinopathy Macular edema Diabetic retinopathy Hyperglycemia CHF (congestive heart failure) Hypertensive urgency Malignant hypertension CKD (chronic kidney disease) Heart block AV second degree Hypersomnia Cardiomyopathy CKD (chronic kidney disease) stage 2, GFR 60-89 ml/min Nicotine dependence, cigarettes, uncomplicated (~1999) Eclampsia Fatty liver Heart failure, unspecified (~09/2020) History of DVT (deep vein thrombosis) Diabetes mellitus Migraines Sjogren's disease Lupus Rheumatoid arthritis High cholesterol Anxiety PTSD (post-traumatic stress disorder) Bipolar 1 disorder H/O mixed connective tissue disease HTN (hypertension) Surgical History History of H/O eye surgery History of hip surgery Tubal ligation status History of bronchoscopy (~11/2020) History of cholecystectomy (~05/2014) Family History Father Substance use disorder Mental health disorder Brother Substance use disorder Mental health disorder Brother Substance use disorder Mental health disorder Other Diabetes HTN (hypertension) Social History Household Members: Children Household Members Other:: 3 Housing: House Are you a primary medicare insurance specialist to a significant other at home: No Do you presently have visiting nurse or other home services: No Alcohol intake: never Patient Tobacco Use Status: Former Tobacco user Tobacco use type: Cigarette Cigarette Packs Per Day: 1 Cigarettes Per Day: 20.0 Years Smoked: 20 e-Cigarette/Vaping Use: Never Used Second Hand Smoke Exposure: No Substance Use Type: Marijuana Advance Directives Date on File: 06/03/21 service: No Current occupational status: disabled Cognitive needs: No Hearing needs: No Vision needs: No Review of Systems Const All systems reviewed & are unremarkable except as noted in HPI and below Reports as per HPI and Reports no additional complaints GI Reports no additional complaints Reports no additional complaints Physical Exam Vital Signs: Last Vital Signs BP 140/72 H 11/09/23 11:30 BMI result Body Mass Index 25.9 Other: Pelvic exam done in 10/27 for annual exam Assessment & Plan Assessment & Plan (1) Abnormal uterine bleeding: Comment: On dialysis Diabetes Hypertension Cardiomyopathy Code(s): N93.9 - Abnormal uterine and vaginal bleeding, unspecified Category: Medical Plan: Co testing done, GC and chlamydia taken CBC, TSH, prolactin, HCG, and pelvic ultrasound ordered. Discussed with the patient the different causes of abnormal bleeding including thyroid disorders, uterine and ovarian pathology, endometrial hyperplasia, carcinoma and other potential causes. Discussed with the patient the work up including CBC (to r/o anemia), TSH, prolactin, pelvic Ultrasound, endometrial biopsy to r/o endometrial pathology. All questions answered and the patient verbalized understanding. Instructed the patient to schedule an appointment for an endometrial biopsy in 2 weeks. Orders: Orders Prolactin Today N93.9 - Abnormal uterine and vaginal bleeding, unspecified US pelvic and transvaginal Today N93.9 - Abnormal uterine and vaginal bleeding, unspecified TSH reflex Free T4 Today N93.9 - Abnormal uterine and vaginal bleeding, unspecified HCG Quantitative Today N93.9 - Abnormal uterine and vaginal bleeding, unspecified Complete Blood Count no Diff Today N93.9 - Abnormal uterine and vaginal bleeding, unspecified Coding Level of Care Code Est Pt Level 3 (82210) Diagnoses Abnormal uterine bleeding N93.9
== END 2023-11-09 12:04 | disposition home or self-care (01) ==
PROVIDERS: PCP Nurse Practitioner Family; Visit Provider Obstetrics & Gynecology
DX: N93.9 Abnormal uterine and vaginal bleeding, unspecified (principal)
CPT/HCPCS: 99213

== ENCOUNTER → 2023-11-09 11:06 | Outpatient (BNVA) | payer MEDICARE, MEDICAID, SELFPAY ==
[2023-05-18 13:38] VITALS: BP 190/120; BMI 29.0
== END ==
PROVIDERS: PCP Nurse Practitioner Family; Visit Provider Obstetrics & Gynecology
DX: N93.9 Abnormal uterine and vaginal bleeding, unspecified (principal)
CPT/HCPCS: 99212

== ENCOUNTER 2023-12-29 09:00 | Outpatient (AMB) | payer MEDICARE, MEDICAID, SELFPAY ==
[2023-05-18 13:38] VITALS: BP 190/120; BMI 29.0
--- NOTE | 2023-12-29 09:07 | A.OFFVIS_ITS ---
VS Expanded 12/29/23 09:08 Height 5 ft 7 in Weight 159 lb 13.362 oz BMI 25.0 Intake Visit Reasons: T2DM/LVM Allergies amoxicillin Allergy (Unknown, Verified 11/09/23 11:36) rash cefaclor [From Ceclor] Allergy (Unknown, Verified 11/09/23 11:36) RASH cephalexin Allergy (Unknown, Verified 11/09/23 11:36) rash Cephalosporins [CEPHALOSPORINS] Allergy (Unknown, Verified 11/09/23 11:36) RASH ALL OVER cephradine [From VELOSEF] Allergy (Unknown, Verified 11/09/23 11:36) RASH Penicillins [PENICILLINS] Allergy (Unknown, Verified 11/09/23 11:36) RASH gabapentin [GABAPENTIN] Adverse Reaction (Unknown, Verified 11/09/23 11:36) RESTLESS LEGS, Body becomes very uncomfortable Nutrition Presentation Details: Pt presents for MNT f/u for T2DM Pt reports appetite in getting better Reports having 4-6 small meal throughout the day and working on including some protein foods, admits that the majority of the time may snack on lower protein foods (crackers, breads , noodles, fruits - tuna with crackers Pt reports she has been prescribed nepro supplements by the doctor at the dialysis center and is waiting for approval BS Monitoring Most Recent Diabetes Results: No Data to Display [facility] Medical History Legally blind Vascular dialysis catheter in place Hypertensive retinopathy Macular edema Diabetic retinopathy Hyperglycemia CHF (congestive heart failure) Hypertensive urgency Malignant hypertension CKD (chronic kidney disease) Heart block AV second degree Hypersomnia Cardiomyopathy CKD (chronic kidney disease) stage 2, GFR 60-89 ml/min Nicotine dependence, cigarettes, uncomplicated (~1999) Eclampsia Fatty liver Heart failure, unspecified (~09/2020) History of DVT (deep vein thrombosis) Diabetes mellitus Migraines Sjogren's disease Lupus Rheumatoid arthritis High cholesterol Anxiety PTSD (post-traumatic stress disorder) Bipolar 1 disorder H/O mixed connective tissue disease HTN (hypertension) Surgical History History of H/O eye surgery History of hip surgery Tubal ligation status History of bronchoscopy (~11/2020) History of cholecystectomy (~05/2014) Family History Father Substance use disorder Mental health disorder Brother Substance use disorder Mental health disorder Brother Substance use disorder Mental health disorder Other Diabetes HTN (hypertension) Social History Household Members: Children Household Members Other:: 3 Housing: House Are you a primary vp care management to a significant other at home: No Do you presently have visiting nurse or other home services: No Alcohol intake: never Patient Tobacco Use Status: Former Tobacco user Tobacco use type: Cigarette Cigarette Packs Per Day: 1 Cigarettes Per Day: 20.0 Years Smoked: 20 e-Cigarette/Vaping Use: Never Used Second Hand Smoke Exposure: No Substance Use Type: Marijuana Advance Directives Date on File: 06/03/21 service: No Current occupational status: disabled Cognitive needs: No Hearing needs: No Vision needs: No Assessment & Plan Assessment & Plan (1) T2DM (type 2 diabetes mellitus): Code(s): E11.9 - Type 2 diabetes mellitus without complications Category: Medical Plan: Wt: 79.5 Kg ( 09/2023 ), 76 kg (10/2023), 72 kg (12/28) Est kcal needs as per MSJ: 2100 (40% carb, 30% protein/fat) Est fluid needs as per 25-30 ml/d: 2300 (unless otherwise specified by MD) Est prot per day as per 1-1.2 g/kg bw: 91 g Recommend fiber intake : 8-10 g per day and gradually increase to 25-28 g per day for women and 35-38 g for men or as tolerated Recommend sodium intake per day : less than 2000 mg Educated patient on: ( R = reviewed V = verbalizes understanding N/R = needs review N/A = not applicable * Food sources of carbohydrate, adequate serving sizes and its role in various health conditions: R * Differences between complex carbohydrates a simple carbohydrates, role of fiber in diet: R V N/R * Lean protein sources of foods: R * Differences between types of fats and role in diet (mono on saturated fat fatty acids, saturated fatty acids, trans fats): R V N/R * Food sources of sodium in salt and healthy modifications for heart health in kidney health: R V * Vitamins and minerals in foods : R * Healthy plate method concept: R V N/R * Physical activity: Benefits a precaution: R V N/R * Hypoglycemia protocol (rule of 15): R, V * Dietary prevention of Hyperglycemia: R , V Patient Instructions: Include foods with iron/protein (egg salad, chicken salad with crackers or , dry cereal in place plain crackers as snack, choose prune , yogurt Coding Level of Care Code Nutr Indiv Subseq (23942) Diagnoses T2DM (type 2 diabetes mellitus) E11.9 Time Spent (min) 20
[2023-12-29 09:08] VITALS: BMI 25.0
== END 2023-12-29 09:30 | disposition home or self-care (01) ==
PROVIDERS: PCP Nurse Practitioner Family; Visit Provider Dietitian, Registered
DX: E11.9 Type 2 diabetes mellitus without complications (principal)

== ENCOUNTER → 2023-12-29 09:00 | Outpatient (BNVA) | payer MEDICARE, MEDICAID, SELFPAY ==
[2023-05-18 13:38] VITALS: BP 190/120; BMI 29.0
== END ==
PROVIDERS: PCP Nurse Practitioner Family; Visit Provider Dietitian, Registered
DX: E11.9 Type 2 diabetes mellitus without complications (principal)
CPT/HCPCS: 97803

== ENCOUNTER 2024-01-14 13:53 | Outpatient (AMB) | payer MEDICARE, MEDICAID, SELFPAY ==
[2023-05-18 13:38] VITALS: BP 190/120; BMI 29.0
--- NOTE | 2024-01-14 12:48 | A.OFFVIS_ITS ---
Vital Signs 01/14/24 14:09 01/15/24 04:58 Height 5 ft 7 in Weight 158 lb 11.725 oz BMI 24.9 BP 230/120 H 220/100 H Blood Pressure Location Rt brachial Position Sitting Pulse 109 H Intake Visit Reasons: T2DM/CONFIRMED Intake Note: Patient presents today to re-establish treatment for Type Diabetes Mellitus: Last Diabetic eye exam was on: DUE Last Podiatry exam was on: Does not see a [facility] [employer] Most recent HbA1c: 4.7%, 01/14/2024 Random Glucose- 129 mg/dL, Today Field Advisor Required: No Accompanied by: Self / Same As Patient Allergies amoxicillin Allergy (Unknown, Verified 11/09/23 11:36) rash cefaclor [From Ceclor] Allergy (Unknown, Verified 11/09/23 11:36) RASH cephalexin Allergy (Unknown, Verified 11/09/23 11:36) rash Cephalosporins [CEPHALOSPORINS] Allergy (Unknown, Verified 11/09/23 11:36) RASH ALL OVER cephradine [From VELOSEF] Allergy (Unknown, Verified 11/09/23 11:36) RASH Penicillins [PENICILLINS] Allergy (Unknown, Verified 11/09/23 11:36) RASH gabapentin [GABAPENTIN] Adverse Reaction (Unknown, Verified 11/09/23 11:36) RESTLESS LEGS, Body becomes very uncomfortable HPI Comments Details: 43 YO F who is seen in f/u for T2DM at the request of PCP. She was last seen by Dr. John in September in by Radha Ravi CDE in October at which time her Lantus was decreased due to low sugars. Now on HM for end-stage renal disease. Initially diagnosed with T2DM aprox 2006 Was initially started on treatment with METFORMIN. XIGduo was d/c'd by renal in the past Current regimen: Trulicity 1.5 mg Qwkly . Basaglar 14 units Hasn't taken insulin in one week 6 units if needed Dexcom average glucose: [138 ] 14 day continuous glucose monitor report reviewed Glucose Managment indicator 6.6 % Days with CGM data 100 % TIme in ranges: 2 % very high (above 250) 12 % high ?(181-250) 86 % in range ?(70-180] 0 % low (69-55) 0 % ?very low (below 54) Interpretation [ in excellent control] Family history of T2DM in father and brother . H/O retinal bleed: sees retinal specialist every 3 months. Last eye exam legally blind in right eye Denies neuropathy: + numbness in hands, no tingling or cramping in the lower extremities. Does not see podiatry. + nephropathy, on ARB: 09/04/23 creatinine 3.12, EGFR 16, microalbumin 447 followed by Nephrology last seen 06/24/2023 for MAYURI on CKD HD mwf started in June still using catheter, fistula healing had LA Has HLD,Not on statin. Followed by cardiology Denies CAD.Has Cardiomyopathy [facility] Medical History Legally blind Vascular dialysis catheter in place Hypertensive retinopathy Macular edema Diabetic retinopathy Hyperglycemia CHF (congestive heart failure) Hypertensive urgency Malignant hypertension CKD (chronic kidney disease) Heart block AV second degree Hypersomnia Cardiomyopathy CKD (chronic kidney disease) stage 2, GFR 60-89 ml/min Nicotine dependence, cigarettes, uncomplicated (~1999) Eclampsia Fatty liver Heart failure, unspecified (~09/2020) History of DVT (deep vein thrombosis) Diabetes mellitus Migraines Sjogren's disease Lupus Rheumatoid arthritis High cholesterol Anxiety PTSD (post-traumatic stress disorder) Bipolar 1 disorder H/O mixed connective tissue disease HTN (hypertension) Surgical History History of H/O eye surgery History of hip surgery Tubal ligation status History of bronchoscopy (~11/2020) History of cholecystectomy (~05/2014) Family History Father Substance use disorder Mental health disorder Brother Substance use disorder Mental health disorder Brother Substance use disorder Mental health disorder Other Diabetes HTN (hypertension) Social History Household Members: Children Household Members Other:: 3 Housing: House Are you a primary reproductive healthcare assistant to a significant other at home: No Do you presently have visiting nurse or other home services: No Alcohol intake: never Patient Tobacco Use Status: Former Tobacco user Tobacco use type: Cigarette Cigarette Packs Per Day: 1 Cigarettes Per Day: 20.0 Years Smoked: 20 e-Cigarette/Vaping Use: Never Used Second Hand Smoke Exposure: No Substance Use Type: Marijuana Advance Directives Date on File: 06/03/21 service: No Current occupational status: disabled Cognitive needs: No Hearing needs: No Vision needs: No Physical Exam Vital Signs: Last Vital Signs Pulse 109 H 01/14/24 14:09 BP 230/120 H 01/14/24 14:09 BMI result Body Mass Index 24.9 Const Other: Absence of Cushingoid features. Absence of acromegalic features. Neck exam reveals nl size thyroid about 15 gms. No thyroid nodules palpable. No carotid bruits present. Lungs CTA. Heart S1 S2, Reg R/R. No M/R G. Skin exam reveals absence of vitiligo or acanthosis nigricans. No edema Visual exam of foot performed. No ulcerations or open lesions. No inter digit maceration or fissuring. No onychomycosis, no callouses. Sensation intact to monofilament exam. Vibratory sensation is normal with 128 Hz tuning fork. Office Procedures Glucose Monitoring Details Details: see [facility] [id number] - Glucose monitoring, continuous-physician I&R Procedure code (CPT) selection complete Results AMB Hemoglobin A1c AMB Hemoglobin A1c 4.7 % Last Edit by SANIA Moeller on 01/14/24 14:25 PATIENT ON DIALYSIS Results Reviewed Results Reviewed: Laboratory Last Values Glucose (Clinic) 129 mg/dL (60-115) H 01/14/24 14:15 Hgb A1c (Clinic) 4.7 % (4.0-6.0) 01/14/24 14:20 Assessment & Plan Assessment & Plan (1) T2DM (type 2 diabetes mellitus): Code(s): E11.9 - Type 2 diabetes mellitus without complications Category: Medical Plan: Diabetic with end-stage kidney disease on HD requiring very little insulin. She takes Trulicity once weekly. She has not needed any short-acting insulin and for the past week has not taken any basal insulin in recent CGM shows excellent control with a GME my of 6.6%. She was counseled to continue to hold insulin and then if her numbers were to rise she could restart the basal insulin at 6 units. (2) Uncontrolled hypertension: Code(s): I10 - Essential (primary) hypertension Category: Medical Plan: Uncontrolled hypertension. Blood pressure was repeated by provider. I highly advised that she go to the emergency room for treatment of this high blood pressure. Patient reports that she will not go to the emergency room and that her blood pressure often runs in this range. She was advised that it was medical advice that she go to the emergency room or be transported there emergently and that failure to do so could result in stroke, heart attack, prolonged hospital stay were . Despite are spending some time discussing this she declined to go to the hospital and we will go home immediately and take an extra clonidine dose 0.2 mg. Again she was advised that failure to go to the emergency room could result in her . 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 Orders: Orders AMB Glucose Monitoring Today E11.9 - Type 2 diabetes mellitus without complications AMB Hemoglobin A1c 01/14/24 E11.9 - Type 2 diabetes mellitus without complications Referrals Podiatry Referral E11.9 - Type 2 diabetes mellitus without complications Medications: Discontinued Humalog KwikPen Insulin (insulin lispro) 8 units before breakfast on , , Thursday on dialysis days when blood sugar is elevated Discontinued Reason: Doctor's Order 8 units (0.08 mL) subcut DAILY 15 mL 5RF NS Patient Instructions: The patient was counseled to always carry a source of sugar and on the rule of 15's: Take 3 glucose tablets and repeat again in 15 minutes if blood sugar is not in normal range. Continue to repeat every 15 minutes until blood sugar is normal. The patient was counseled to wear closed toe shoes, never walk barefooted and to inspect the feet daily. For any signs of infection or open wound patient should notify PCP or go to urgent care. Coding Level of Care Code Est Pt Level 4 (01359) Complex EM visit Add On G2211 Diagnoses T2DM (type 2 diabetes mellitus) E11.9 Uncontrolled hypertension I10 CPT Codes Details - CPT: 89732 - Glucose monitoring, continuous-physician I&R ([id number])
[2024-01-14 14:09] VITALS: BP 230/120; PULSE 109; BMI 24.9
[2024-01-14 14:20] LABS: Glucose, Whole Blood 129 mg/dL (60-115)
[2024-01-15 04:58] VITALS: BP 220/100
== END 2024-01-14 14:46 | disposition home or self-care (01) ==
PROVIDERS: PCP Nurse Practitioner Family; Visit Provider Nurse Practitioner Adult Health
DX: E11.9 Type 2 diabetes mellitus without complications (principal); I10 Essential (primary) hypertension
CPT/HCPCS: 95251; 99214; G2211

== ENCOUNTER → 2024-01-14 13:53 | Outpatient (BNVA) | payer MEDICARE, MEDICAID, SELFPAY ==
[2023-05-18 13:38] VITALS: BP 190/120; BMI 29.0
== END ==
PROVIDERS: PCP Nurse Practitioner Family; Visit Provider Nurse Practitioner Adult Health
DX: E11.22 Type 2 diabetes mellitus with diabetic chronic kidney disease (principal); I12.9 Hypertensive chronic kidney disease with stage 1 through stage 4 chronic kidney disease, or unspecified chronic kidney disease; N18.9 Chronic kidney disease, unspecified
CPT/HCPCS: 82947; 83036; 99212

== ENCOUNTER 2024-01-27 10:05 | Outpatient (AMB) | payer MEDICARE, MEDICAID, SELFPAY ==
[2023-05-18 13:38] VITALS: BP 190/120; BMI 29.0
[2024-01-27 10:07] VITALS: BP 180/92; PULSE 98; O2SAT 97; BMI 24.6
--- NOTE | 2024-01-27 10:07 | A.OFFPC_ITS ---
Vital Signs 01/27/24 10:07 01/27/24 10:35 Height 5 ft 7 in Weight 157 lb 2 oz BMI 24.6 BP 180/92 H 162/88 H Blood Pressure Location Rt brachial Rt brachial Position Sitting Sitting Pulse 98 Pulse Source Pulse Oximeter Pulse Oximetry (%) 97 Intake Visit Reasons: 4 month follow up Intake Note: pt is here for 4 month follow up [employer] Required: No Accompanied by: Self / Same As Patient Allergies amoxicillin Allergy (Unknown, Verified 01/27/24 11:39) rash cefaclor [From Ceclor] Allergy (Unknown, Verified 01/27/24 11:39) RASH cephalexin Allergy (Unknown, Verified 01/27/24 11:39) rash Cephalosporins [CEPHALOSPORINS] Allergy (Unknown, Verified 01/27/24 11:39) RASH ALL OVER cephradine [From VELOSEF] Allergy (Unknown, Verified 01/27/24 11:39) RASH Penicillins [PENICILLINS] Allergy (Unknown, Verified 01/27/24 11:39) RASH gabapentin [GABAPENTIN] Adverse Reaction (Unknown, Verified 01/27/24 11:39) RESTLESS LEGS, Body becomes very uncomfortable Medication List - Last Reconciled 01/27/24 by Mauricio Nolasco, [facility]- albuterol sulfate 90 mcg/actuation 1 inh inhalation QID PRN 30 days alcohol swabs (Alcohol Prep Pads) 1 pad topical QID blood pressure test kit-large daily use blood sugar diagnostic (FreeStyle Lite Strips) Test four times a day or as directed. blood sugar diagnostic (FreeStyle Lite Strips) As directed- tests 4X/day blood-glucose meter (FreeStyle Lite Meter kit) As Directed blood-glucose meter (FreeStyle Lite Meter kit) As directed tests 4 X/day carvedilol 50 mg PO BID clonidine HCl 0.2 mg See Protocol PO BID dulaglutide (Trulicity) 1.5 mg (0.5 mL) subcut TH famotidine 20 mg PO DAILY insulin glargine (Basaglar KwikPen U-100 Insulin) 20 units (0.2 mL) subcut QAM lancets (FreeStyle Lancets) Test four times a day or as directed. lancets (FreeStyle Lancets) As directed- tests 4X/day nicotine 1 patch transdermal DAILY nifedipine ER 1 tab PO BID pen needle, diabetic Use four times a day or as directed. sacubitril-valsartan 24-26 mg (Entresto) 1 tab See Protocol PO BID tamsulosin 0.4 mg PO DAILY Tobacco use date assessed: 06/29/23 Dental Screening Dental Screen Date: 06/29/23 HPI 4 month follow up HPI Details HTN: Blood pressure is managed with carvedilol 50mg bid, clonidine 0.2mg bid, nifedipine 1 tab bid, and entresto 24-26mg. Pt reports that her blood pressure at home has been ranging from 130s-200s systolically. Pt reports not taking her blood pressure medications last night. She is following up with nephrology and cardiology. Pt is going to dialysis, had an appointment this morning. She is very fatigued (Three times a week). Pt c/o palpitations that started last week (intermittent). Will do an EKG in office. Denies chest pain, shortness of breath, headache, dizziness, and blurred vision. Pt does report some depression. Denies any SI and HI. [facility] Medical History Legally blind Vascular dialysis catheter in place Hypertensive retinopathy Macular edema Diabetic retinopathy Hyperglycemia CHF (congestive heart failure) Hypertensive urgency Malignant hypertension CKD (chronic kidney disease) Heart block AV second degree Hypersomnia Cardiomyopathy CKD (chronic kidney disease) stage 2, GFR 60-89 ml/min Nicotine dependence, cigarettes, uncomplicated (~1999) Eclampsia Fatty liver Heart failure, unspecified (~09/2020) History of DVT (deep vein thrombosis) Diabetes mellitus Migraines Sjogren's disease Lupus Rheumatoid arthritis High cholesterol Anxiety PTSD (post-traumatic stress disorder) Bipolar 1 disorder H/O mixed connective tissue disease HTN (hypertension) Surgical History History of H/O eye surgery History of hip surgery Tubal ligation status History of bronchoscopy (~11/2020) History of cholecystectomy (~05/2014) Family History Father Substance use disorder Mental health disorder Brother Substance use disorder Mental health disorder Brother Substance use disorder Mental health disorder Other Diabetes HTN (hypertension) Social History (Reviewed 01/27/24 @ 11:29 by Mauricio Nolasco, [facility]) Household Members: Children Household Members Other:: 3 Housing: House Are you a primary floor care technician to a significant other at home: No Do you presently have visiting nurse or other home services: No Alcohol intake: never Patient Tobacco Use Status: Former Tobacco user Tobacco use type: Cigarette Cigarette Packs Per Day: 1 Cigarettes Per Day: 20.0 Years Smoked: 20 e-Cigarette/Vaping Use: Never Used Second Hand Smoke Exposure: No Substance Use Type: Marijuana Advance Directives Date on File: 06/03/21 service: No Current occupational status: disabled Cognitive needs: No Hearing needs: No Vision needs: No Questionnaire PHQ-9 Over the last 2 weeks, how often have you been bothered by any of the following problems? 54836 - PHQ-9 Billing: Patient declined-do not bill (has a psychiatrist and therapist, denies any si or hi) Source: Developed by Drs. Ubaldo Ventura, Cheryl Watkins, Yaya Robbins and colleagues, with an educational kleber from [employer]. Thrive Questionnaire Date Thrive assessed: 01/27/24 I am a: Patient What is your living situation today?: I have a steady place to live Within the past 12 months, did the food you bought not last and you didn't have the money to get more?: Sometimes True Within the past 12 months, did you worry whether your food would run out before you got money to buy more?: I choose not to answer this question Do you have trouble paying for medicines?: No Do you have trouble getting transportation to medical appointments?: Yes Do you have trouble paying your heating and electricity bill?: No Do you have trouble taking care of your child, family member or friend?: Yes Do you have trouble with day-to-day activities such as bathing, preparing meals, shopping, managing finances, etc.?: Yes Are you currently unemployed and looking for a job?: No Are you interested in more education?: No Please select the resources that you would like help with: None Currently or been in a relationship where the following occur: No concerns reported THRIVE Score: 2 AUDIT C Alcohol Use Questionnaire (AUDIT-C) 1. How often do you have a drink containing alcohol?: Never 3. How often do you have six or more drinks on one occasion?: Never Total Score: 0 Score Reviewed/Action Taken: Yes KESHAWN-7 AMB Questionnaire KESHAWN-7 Date KESHAWN - 7 assessed: 01/27/24 Feeling nervous, anxious, or on edge: 1 = Several days Not being able to stop or control worryin = Several days Worrying too much about different things: 1 = Several days Trouble relaxin = Several days Being so restless that it is hard to sit still: 1 = Several days Becoming easily annoyed or irritable: 1 = Several days Feeling afraid as if something awful might happen: 1 = Several days Total KESHAWN-7 score (0-4 normal; 5-9 mild; 10-14 moderate; 15-21 severe): 7 Source: Developed by Drs. Ubaldo Ventura, Cheryl Watkins, Yaya Robbins and colleagues, with an educational kleber from [employer]. KESHAWN-7 Assessment Billing KESHAWN-7 Assessment Tool: KESHAWN-7 Assessment 80769 (has a therapist and psychiatrist, denies any si or hi) Review of Systems Const Reports as per HPI Physical exam (Primary Care) Vital Signs: Last Vital Signs Pulse 98 01/27/24 10:07 BP 180/92 H 01/27/24 10:07 Pulse Ox 97 01/27/24 10:07 BMI result Body Mass Index 24.6 Tobacco/Smoking Status: Tobacco use Status Tobacco use date assessed 06/29/23 01/27/24 10:10 Patient Tobacco Use Status Former Tobacco user 01/27/24 10:10 Tobacco use type Cigarette 01/27/24 10:10 e-Cigarette/Vaping Use Never Used 01/27/24 10:10 Thrive Assessment: Date of Thrive Assessment Date Thrive assessed 01/27/24 01/27/24 10:10 Currently or been in a relationship where the following occur: No concerns reported Const General: cooperative Orientation/consciousness: patient oriented x3 Resp Effort & Inspection: normal respiratory effort Auscultation: clear to auscultation bilaterally Cardio Rate: regular rate Rhythm: regular rhythm Heart sounds: S1 normal heart sound present, S2 normal heart sound present and Murmur heart sound present systolic Neuro General: patient oriented x3 Extrem Right lower extremity: no edema Left lower extremity: no edema Psych Appearance: grossly normal Mental Status: mental status grossly normal Speech and movement: Normal speech and movement present Affect: normal affect Attitude: cooperative Thought process: Normal thought process present Thought content: Normal thought content present Insight: Good insight present (Psych) Judgement: Good judgement present (Psych) Coding Level of Care Code Est Pt Level 3 (47996) Diagnoses Dialysis patient Z99.2 Malignant hypertension I10 Palpitations R00.2 Additional Codes KESHAWN-7 Assessment Billing - KESHAWN-7 Assessment Tool: KESHAWN-7 Assessment [id number] ([id number]) Assessment & Plan Assessment & Plan (1) Dialysis patient: Code(s): Z99.2 - Dependence on renal dialysis Category: Medical Plan: Following up with nephrology (2) Malignant hypertension: Code(s): I10 - Essential (primary) hypertension Category: Medical Plan: Following up with nephrology and cardiology (3) Palpitations: Code(s): R00.2 - Palpitations Category: Medical Plan: EKG done in office, no changes compared to previous EKGs. Pt knows to go to the ER with any worsening symptoms. Plan The patient agreed to the use of a phlebotomist medical lab assistant for this encounter. Scribed for TIMMY Campbell-ROX by Morenita Medellin phlebotomist medical lab assistant, on 01/27/2024 at 10:20 EST. Orders: Orders Comprehensive [place]. Panel Fast Today I10 - Essential (primary) hypertension, Z99.2 - Dependence on renal dialysis TSH reflex Free T4 Today I10 - Essential (primary) hypertension, Z99.2 - Dependence on renal dialysis UA CC w/rflx Micro + Cult Today I10 - Essential (primary) hypertension, Z99.2 - Dependence on renal dialysis Lipid Panel Today I10 - Essential (primary) hypertension, Z99.2 - Dependence on renal dialysis AMB EKG-In Office Today R00.2 - Palpitations Complete Blood Count Auto Diff Today I10 - Essential (primary) hypertension, Z99.2 - Dependence on renal dialysis Medications: New nicotine 1 patch transdermal DAILY 28 ea 1RF
[2024-01-27 10:35] VITALS: BP 162/88
== END 2024-01-27 11:29 | disposition home or self-care (01) ==
PROVIDERS: PCP Nurse Practitioner Family; Visit Provider Nurse Practitioner Family
DX: Z99.2 Dependence on renal dialysis (principal); I10 Essential (primary) hypertension; R00.2 Palpitations

== ENCOUNTER → 2024-01-27 10:05 | Outpatient (BNVA) | payer MEDICARE, MEDICAID, SELFPAY ==
[2023-05-18 13:38] VITALS: BP 190/120; BMI 29.0
== END ==
PROVIDERS: PCP Nurse Practitioner Family; Visit Provider Nurse Practitioner Family
DX: I12.9 Hypertensive chronic kidney disease with stage 1 through stage 4 chronic kidney disease, or unspecified chronic kidney disease (principal); N18.9 Chronic kidney disease, unspecified; R00.2 Palpitations; Z79.899 Other long term (current) drug therapy; Z99.2 Dependence on renal dialysis
CPT/HCPCS: 96127; 99212

== ENCOUNTER 2024-04-10 10:31 | Emergency (ER) | payer MEDICARE, MEDICAID, SELFPAY ==
[2023-05-18 13:38] VITALS: BP 190/120; BMI 29.0
--- NOTE | ~2024-04-10 | XR_ITS ---
CLINICAL HISTORY: sob on HD 1 view chest x-ray Comparison: 06/07/2023 Findings: Portions of the exam are obscured by overlying material. No consolidation or effusion. Heart size is normal. No acute fracture. IMPRESSION: 1. No acute findings. This document has been electronically signed by: Yahir Nino MD on 04/10/2024 11:51:08
--- NOTE | 2024-04-10 10:35 | ECG_ITS ---
Test Reason : CHEST PAIN Blood Pressure : / mmHG Vent. Rate : 089 BPM Atrial Rate : 089 BPM P-R Int : 164 ms QRS Dur : 096 ms QT Int : 380 ms P-R-T Axes : 065 005 140 degrees QTc Int : 462 ms Normal sinus rhythm Left ventricular hypertrophy with repolarization abnormality ( R in aVL , Sokolow-Abarca , Omar product ) Abnormal ECG When compared with ECG of 04-SEP-2023 16:27, Vent. rate has increased BY 41 BPM Referred By: Generic ED Physician Electronically Signed By:MANJEET DUVALL
[2024-04-10 10:42] VITALS: BP 223/124; PULSE 102; RESP 16; TEMP 36.9; O2SAT 100; BMI 25.1
--- NOTE | 2024-04-10 11:13 | ED.CHESTPAIN ---
HPI - Chest Pain General Chief Complaint: Chest Pain Stated Complaint: diff breathing, palpitations Time Seen by Provider: 04/10/24 10:55 Source: patient Mode of arrival: ambulatory Limitations: no limitations History of Present Illness ED Provider: DR. Gomez HPI narrative: 44-year-old female with pertinent history of CKD currently on HD on did not miss any dialysis session, on the transplant list, HTN taking carvedilol, clonidine, and spironolactone for a woke up this morning with feeling palpitation, shortness of breath, and chest discomfort, patient took her blood pressure medication however blood pressure was high. No headache, no blurry vision, no stiff neck, no weakness, no numbness. 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 Related Data Home Medications ?Medication ?Instructions ?Recorded ?Confirmed carvedilol 25 mg tablet 50 mg PO BID 03/20/22 01/27/24 nifedipine 90 mg tablet,extended 1 tab PO BID 04/22/22 01/27/24 release 24 hr Previous Rx's ?Medication ?Instructions ?Recorded lancets 28 gauge (FreeStyle #100 ea 03/20/22 Lancets) blood pressure test kit-large #1 ea 03/25/22 blood sugar diagnostic (FreeStyle #100 ea 05/18/23 Lite Strips) blood-glucose meter (FreeStyle #1 ea 05/18/23 Lite Meter kit) blood sugar diagnostic (FreeStyle #100 ea 06/09/23 Lite Strips) blood-glucose meter (FreeStyle #1 ea 06/09/23 Lite Meter kit) lancets 28 gauge (FreeStyle #100 ea 06/09/23 Lancets) sacubitril 24 mg-valsartan 26 mg 1 tab PO BID #30 tabs 06/09/23 tablet (Entresto) clonidine HCl 0.2 mg tablet 0.2 mg PO BID #180 tabs 06/19/23 tamsulosin 0.4 mg capsule 0.4 mg PO DAILY #90 caps 06/19/23 famotidine 20 mg tablet 20 mg PO DAILY #90 tabs 08/26/23 dulaglutide 1.5 mg/0.5 mL 1.5 mg (0.5 mL) subcut TH #2 mL 09/16/23 subcutaneous pen injector (Trulicity) insulin glargine 100 unit/mL (3 20 unit (0.2 mL) subcut QAM #15 mL 10/04/23 mL) subcutaneous pen (Basaglar KwikPen U-100 Insulin) pen needle, diabetic 32 gauge x #100 ea 10/04/23 1/ alcohol swabs (Alcohol Prep Pads) 1 pad topical QID #360 pad 10/05/23 nicotine 21 mg/24 hr daily 1 patch transdermal DAILY #28 ea 01/27/24 transdermal patch albuterol sulfate 90 mcg/actuation 1 inh inhalation QID PRN Wheezing 02/01/24 aerosol inhaler 30 days #8.5 grams Allergies Allergy/AdvReac Type Severity Reaction Status Date / Time amoxicillin Allergy Unknown rash Verified 04/10/24 10:45 cefaclor [From Ceclor] Allergy Unknown RASH Verified 04/10/24 10:45 cephalexin Allergy Unknown rash Verified 04/10/24 10:45 Cephalosporins Allergy Unknown RASH ALL Verified 04/10/24 10:45 [CEPHALOSPORINS] OVER cephradine [From VELOSEF] Allergy Unknown RASH Verified 04/10/24 10:45 Penicillins [PENICILLINS] Allergy Unknown RASH Verified 04/10/24 10:45 gabapentin [GABAPENTIN] AdvReac Unknown RESTLESS Verified 04/10/24 10:45 LEGS, Body becomes very uncomfortable Review of Systems Review of Systems: All other systems are reviewed and are negative Constitutional: Reports as per HPI and Reports no additional constitutional complaints Eyes: Reports as per HPI and Reports no additional eye complaints Reports system reviewed and no additional complaints, except as documented Cardiovascular: Reports as per HPI and Reports no additional cardiovascular complaints Respiratory: Reports as per HPI and Reports no additional respiratory complaints Gastrointestinal: Reports as per HPI and Reports no additional gastrointestinal complaints Genitourinary: Reports no additional female genitourinary complaints Musculoskeletal: Reports no additional musculoskeletal complaints Skin/Breast: Reports system reviewed and no additional complaints, except as docu Psychiatric: Reports no additional psychiatric complaints Endocrine: Reports no additional endocrine complaints Hematologic/Lymphatic: Reports no additional hematologic/lymphatic complaints Allergic/Immunologic: Reports no additional allergic/immunologic complaints Reports system reviewed and no additional complaints, except as documented and Reports Abnormal speech present PMFSH Past Medical History Medical History Legally blind Vascular dialysis catheter in place Hypertensive retinopathy Macular edema Diabetic retinopathy Hyperglycemia CHF (congestive heart failure) Hypertensive urgency Malignant hypertension CKD (chronic kidney disease) Heart block AV second degree Hypersomnia Cardiomyopathy CKD (chronic kidney disease) stage 2, GFR 60-89 ml/min Nicotine dependence, cigarettes, uncomplicated (~1999) Eclampsia Fatty liver Heart failure, unspecified (~09/2020) History of DVT (deep vein thrombosis) Diabetes mellitus Migraines Sjogren's disease Lupus Rheumatoid arthritis High cholesterol Anxiety PTSD (post-traumatic stress disorder) Bipolar 1 disorder H/O mixed connective tissue disease HTN (hypertension) Surgical History History of H/O eye surgery History of hip surgery Tubal ligation status History of bronchoscopy (~11/2020) History of cholecystectomy (~05/2014) Family History Family History Father Substance use disorder Mental health disorder Brother Substance use disorder Mental health disorder Brother Substance use disorder Mental health disorder Other Diabetes HTN (hypertension) Social History Social History Household Members: Children Household Members Other:: 3 Housing: House Are you a primary career development facilitator to a significant other at home: No Do you presently have visiting nurse or other home services: No Alcohol intake: never Patient Tobacco Use Status: Former Tobacco user Tobacco use type: Cigarette Cigarette Packs Per Day: 1 Cigarettes Per Day: 20.0 Years Smoked: 20 e-Cigarette/Vaping Use: Never Used Second Hand Smoke Exposure: No Substance Use Type: Marijuana Advance Directives: Yes Advance Directives on File: Yes Advance Directives Date on File: 06/03/21 service: No Current occupational status: disabled Cognitive needs: No Hearing needs: No Vision needs: No Physical Exam Vital Signs: Vital Signs: Last Vital Signs Temp 99.6 F 04/10/24 14:24 Pulse 78 04/10/24 14:24 Resp 16 04/10/24 14:24 BP 187/111 H 04/10/24 14:24 Pulse Ox 97 04/10/24 14:24 O2 Del Method Room Air 04/10/24 14:24 BMI result Body Mass Index 25.1 Vital signs have been reviewed and appear to be correct. Blood pressure elevated. Heart rate normal. Respiratory rate normal. Temperature normal. Oxygen saturation normal. Appearance: Alert. Oriented X3. No acute distress. Head: Normal external exam. Normocephalic. Atraumatic. No Chase signs noted. No raccoon eyes noted Eyes: PERRLA. EOMI. Conjunctiva and sclera normal. Eyelids normal. ENT: TM's Normal. Pharynx normal. Uvula midline. Moist mucous membranes. No trismus noted. No drooling noted. No muffled voice noted. Neck: Normal inspection. Neck supple. FROM. No adenopathy. Thyroid Normal. No meningeal signs. No neck mass noted. CVS: Normal heart rate and rhythm. Heart sound normal. No murmurs noted. Pulses normal throughout. Respiratory: No respiratory distress. Painless inspiration. Breath sounds normal. No wheezes/rales/rhonchi noted. Chest nontender. No accessory muscle usage noted or decreased air movement noted. Abdomen: Soft and nontender. Bowel sounds normal in all 4 quadrants. No distention noted. No organomegaly noted. No visible injury noted. Back: No CVA tenderness. Full range of motion noted. Skin: Skin warm and dry. Normal skin color. Normal skin turgor. No rashes/lesions/lacerations noted. Extremities: No lower extremity edema. Extremities exhibit normal range of motion. Extremities nontender. Neuro: Oriented X 3. Cranial nerve exam: II-XII are grossly intact No motor deficit. No sensory deficit. Reflexes normal. Course Reevaluation(s) Reevaluation #1: CKD, on HD, came in with chest pain and shortness of breath, patient now feels better, troponin x2 stable with no delta changes, EKG is unchanged from previous. O2 sat is 97% on room air, patient sleeping comfortably with out orthopnea or paroxysmal nocturnal dyspnea, no lower extremity swelling, chest x-ray showed no pulmonary congestion, electrolyte are unremarkable, patient did not miss any dialysis scheduled to have HD tomorrow the case was discussed with Dr. Barkley from registered public health nurse who agreed that the patient can be discharged home and keep her appointment tomorrow for hemodialysis. Leukocytosis secondary to stress reaction no sign of infection. Time: 15:39 Medications Administered Discontinued Medications Generic Name Dose Route Start Last Admin Trade Name Freq PRN Reason Stop Dose Admin Carvedilol 25 mg 04/10/24 14:47 04/10/24 15:01 Carvedilol 25 Mg Tablet PO 04/10/24 14:48 25 mg ONCE ONE Administration Protocol Clonidine HCl 0.2 mg 04/10/24 11:11 04/10/24 11:17 Clonidine Hcl 0.2 Mg Tablet PO 04/10/24 11:12 0.2 mg ONCE ONE Administration Protocol Medical Decision Making Differential Diagnosis Differential Diagnoses: The differential diagnosis associated with the presentation includes (ACS, CHF, pulmonary congestion, electrolyte derangement, anemia, pneumonia, pneumothorax, pleural effusion) Admission/Observation Consideration of admission/observation: Escalation of care including admission/observation considered Consult Healthcare Provider Management of the patient was discussed with: Transit Bus Driver (Dr. Barkley) Lab Data MDM Lab Attestation statement: I reviewed the patient's lab results. 04/10/24 11:31 04/10/24 11:31 Labs: Lab Results 04/10/24 04/10/24 04/10/24 Range/Units 11:31 14:29 15:04 WBC 13.4 H (4.8-10.8) X10*3/uL RBC 3.15 L (4.20-5.50) X10*6/uL Hgb 10.5 L (12.0-16.0) g/dl Hct 29.6 L (37.0-47.0) % MCV 94.0 (80.0-98.0) fL MCH 33.3 H (27.0-33.0) pg MCHC 35.5 H (31.0-35.0) g/dl RDW 13.1 (11.0-16.0) % Plt Count 318 (160-400) X10*3/uL MPV 9.4 (9.4-12.3) fL Immature Gran % (Auto) 0.3 (0.0-0.4) % Neut % (Auto) 77.2 H (45-73) % Lymph % (Auto) 12.0 L (20-40) % [place] % (Auto) 7.8 (2-11) % Eos % (Auto) 2.0 (0-4) % Baso % (Auto) 0.7 (0-2) % Lymph # (Auto) 1.6 (1.2-4.9) X10*3/uL [place] # (Auto) 1.0 (0.1-1.2) X10*3/uL Eos # (Auto) 0.3 (0.0-0.4) X10*3/uL Baso # (Auto) 0.1 (0.0-0.2) X10*3/uL Abs Immat Gran (auto) 0.04 H (0.00-0.03) X10*3/uL Absolute Neuts (auto) 10.4 H (2.0-8.3) x10*3/uL Absolute Nucleated RBC 0.000 (0.0-0.012) X10*3/uL Nucleated RBC % (auto) 0.0 (0.0-0.2) /100WBC Sodium 136 (135-145) mmol/L Potassium 4.5 (3.3-5.1) mmol/L Chloride 107 (96-108) mmol/L Carbon Dioxide 20 L (22-29) mmol/L Anion Gap 14 (12-20) BUN 44 H (9-16) mg/dL Creatinine 4.78 H* (0.5-1.4) mg/dL Estim Creat Clear Calc 14.9 Estimated GFR 10 Random Glucose 138 H (60-115) mg/dL Lactic Acid 0.5 (0.5-2.0) mmol/L Calcium 8.2 L D (8.4-10.2) mg/dL Total Bilirubin 0.6 (0.0-1.0) mg/dL Direct Bilirubin 0.2 (0.0-0.5) mg/dL AST 19 (5-31) U/L ALT 11 (0-31) U/L Alkaline Phosphatase 101 (39-117) U/L Troponin I High Sens 24.6 H D 21.8 H (<3.5-17.0) ng/L B-Natriuretic Peptide 2527 H (<100) pg/mL Total Protein 7.0 (6.5-8.0) g/dL Albumin 4.4 (3.5-5.0) g/dL Lipase 33 (8-78) U/L Urine Color RED Urine Appearance Hazy Urine pH 8.5 (5.0-9.0) Ur Specific [place] 1.020 (1.005-1.025) Urine Protein 100 (2+) H (Neg-Trace) mg/dL Urine Glucose (UA) 250 H (Negative) mg/dL Urine Ketones Negative (Negative) mg/dL Urine Blood Large (3+) H (Negative) Urine Nitrite Negative (Negative) Ur Leukocyte Esterase Trace H (Negative) Urine RBC >20 H (0-2) /HPF Urine WBC >50 H (0-5) /HPF Ur Squamous Epith Cells 0-2 (0-2) /HPF Urine Bacteria 4+ (None Seen) Hyaline Casts 0-2 (0-2) /LPF Influenza Type A (PCR) NEGATIVE (Negative) Influenza Type B (PCR) NEGATIVE (Negative) RSV RNA Qual (PCR) NEGATIVE (Negative) SARS-CoV-2 RNA (RT-PCR) NEGATIVE (Negative) Independent Interpretation I performed an independent interpretation of an: Plain X-Ray (Chest: No acute intrathoracic pathology.) Radiology Impression Discussion of test interpretation with radiology: I have reviewed the radiologist's reading. Discharge Plan Discharge Clinical Impression: Chest pain, Hypertension Patient Disposition: Home, Self-Care Instructions: Chronic Hypertension (ED) Additional Instructions: Keep your appointment tomorrow for hemodialysis. Take your blood pressure medication as instructed. Keep monitoring your blood pressure and follow-up with PCP. Prescriptions: No Action (DME) lancets [FreeStyle Lancets] 28 gauge misc See Rx Instructions .Route Qty: 100 4RF Rx Instructions: As directed- tests 4X/day (DME) blood pressure test kit-large Kit See Rx Instructions .Route Qty: 1 0RF Rx Instructions: daily use famotidine 20 mg tablet 20 mg PO DAILY Qty: 90 0RF insulin glargine [Basaglar KwikPen U-100 Insulin] 100 unit/mL (3 mL) insulin pen 20 unit subcut QAM Qty: 15 0RF (DME) pen needle, diabetic 32 gauge x 1/4 needle Qty: 100 0RF Rx Instructions: Use four times a day or as directed. alcohol swabs [Alcohol Prep Pads] Pads, Medicated 1 pad topical QID Qty: 360 5RF albuterol sulfate 90 mcg/actuation HFA aerosol inhaler 1 inh inhalation QID PRN (Reason: Wheezing) 30 Days Qty: 8.5 1RF carvedilol 25 mg tablet 50 mg PO BID nifedipine 90 mg tablet extended release 24hr 1 tab PO BID Entresto 24-26 mg Tablet 1 tab PO BID Qty: 30 0RF Protocol: Hold for SBP< HOLD for SBP < : 90 (DME) FreeStyle Lite Strips Strip Qty: 100 0RF Rx Instructions: Test four times a day or as directed. (DME) blood-glucose meter [FreeStyle Lite Meter] Kit Qty: 1 0RF Rx Instructions: As Directed (DME) lancets [FreeStyle Lancets] 28 gauge misc Qty: 100 0RF Rx Instructions: Test four times a day or as directed. clonidine HCl 0.2 mg Tablet 0.2 mg PO BID Qty: 180 0RF Protocol: Hold for SBP< HOLD for SBP < : 90 tamsulosin 0.4 mg Capsule 0.4 mg PO DAILY Qty: 90 0RF Trulicity 1.5 mg/0.5 mL pen injector 1.5 mg SUBCUT TH Qty: 2 4RF (DME) blood-glucose meter [FreeStyle Lite Meter] Kit See Rx Instructions .Route Qty: 1 0RF Rx Instructions: As directed tests 4 X/day (DME) FreeStyle Lite Strips Strip See Rx Instructions .Route Qty: 100 5RF Rx Instructions: As directed- tests 4X/day nicotine 21 mg/24 hr patch 24 hour 1 patch transdermal DAILY Qty: 28 1RF Referrals: Mauricio Nolasco, LITERACY COORDINATOR-BC [Primary Care Provider] - Print Language: Chinese
[2024-04-10] MEDS: cloNIDine HCL 0.2 MG TABLET PO (11:17)
[2024-04-10 11:38] LABS: MANUAL DIFF FLAG NO
[2024-04-10 11:41] LABS: Basophils Absolute Auto 0.1 X10*3/uL (0.0-0.2); Basophils Percent Auto 0.7 % (0-2); Eosinophils Absolute Auto 0.3 X10*3/uL (0.0-0.4); Hematocrit 29.6 % (37.0-47.0); Hemoglobin 10.5 g/dl (12.0-16.0); Imm Gran Abs Auto 0.04 X10*3/uL (0.00-0.03); Imm Gran Pct Auto 0.3 % (0.0-0.4); Lymphocytes Absolute Auto 1.6 X10*3/uL (1.2-4.9); Mean Corpuscular HGB Conc 35.5 g/dl (31.0-35.0); Mean Corpuscular Hemoglobin 33.3 pg (27.0-33.0); Mean Platelet Volume 9.4 fL (9.4-12.3); Monocytes Percent Auto 7.8 % (2-11); Neutrophils Absolute Auto 10.4 x10*3/uL (2.0-8.3); Neutrophils Percent Auto 77.2 % (45-73); Platelet Count 318 X10*3/uL (160-400); Red Blood Count 3.15 X10*6/uL (4.20-5.50); Red Cell Distribution Width 13.1 % (11.0-16.0); White Blood Count 13.4 X10*3/uL (4.8-10.8)
[2024-04-10 11:54] LABS: Lactic Acid 0.5 mmol/L (0.5-2.0)
[2024-04-10 12:00] LABS: B Type Natriuretic Peptide 2527 pg/mL (<100)
[2024-04-10 12:01] LABS: Alanine Aminotransferase 11 U/L (0-31); Albumin Level 4.4 g/dL (3.5-5.0); Alkaline Phosphatase 101 U/L (39-117); Anion Gap 14 (12-20); Aspartate Amino Transferase 19 U/L (5-31); Bilirubin Direct 0.2 mg/dL (0.0-0.5); Bilirubin Total 0.6 mg/dL (0.0-1.0); Blood Urea Nitrogen 44 mg/dL (9-16); Calcium 8.2 mg/dL (8.4-10.2); Carbon Dioxide 20 mmol/L (22-29); Chloride 107 mmol/L (96-108); Glucose Random 138 mg/dL (60-115); Lipase 33 U/L (8-78); Potassium 4.5 mmol/L (3.3-5.1); Sodium 136 mmol/L (135-145)
[2024-04-10 12:02] LABS: Troponin-I High Sensitivity 24.6 ng/L (<3.5-17.0)
[2024-04-10 12:03] LABS: Creatinine Clr Calc Pharmacy 14.9; Estimated Glomerular Filt Rate 10
[2024-04-10 12:11] VITALS: BP 194/102; PULSE 75; RESP 20; TEMP 36.6; O2SAT 98
[2024-04-10 12:16] LABS: Influenza A PCR NEGATIVE (Negative); Influenza B PCR NEGATIVE (Negative); Resp Syncy Virus RNA Qual PCR NEGATIVE (Negative); SARS COV2 PCR INHOUSE NEGATIVE (Negative)
[2024-04-10 14:24] VITALS: BP 187/111; PULSE 78; RESP 16; TEMP 37.6; O2SAT 97
[2024-04-10 15:01] LABS: Troponin-I High Sensitivity 21.8 ng/L (<3.5-17.0)
[2024-04-10] MEDS: carvediloL 25 MG TABLET PO (15:01)
[2024-04-10 15:14] LABS: Appearance Urine Hazy; Color Urine RED; Glucose Urine UA 250 mg/dL (Negative); Leukocyte Esterase Urine Trace (Negative); Nitrite Urine Negative (Negative); PH 8.5 (5.0-9.0); UMIC TRIGGER UACC YES; Urine Blood Large (3+) (Negative); Urine Ketones Negative (Negative); Urine Protein 100 (2+) mg/dL (Neg-Trace)
[2024-04-10 15:31] LABS: Bacteria Urine 4+ (None Seen); Hyaline Casts Urine 0-2 /LPF (0-2); RBC Urine >20 /HPF (0-2); Squamous Epithelial Cell Urine 0-2 /HPF (0-2); UACC Culture Trigger YES; WBC Urine >50 /HPF (0-5)
[2024-04-10 16:01] VITALS: BP 187/111; PULSE 78; RESP 16; TEMP 37.6; O2SAT 97
== END 2024-04-10 16:04 | disposition home or self-care (01) ==
PROVIDERS: Emergency Provider Emergency Medicine; PCP Nurse Practitioner Family
DX: R07.89 Other chest pain (principal); R06.02 Shortness of breath; R00.2 Palpitations; I10 Essential (primary) hypertension; Z79.899 Other long term (current) drug therapy; Z03.818 Encounter for observation for suspected exposure to other biological agents ruled out
CPT/HCPCS: 0241U; 36415; 71045; 80048; 80076; 81001; 83605; 83690; 83880; 84484; 85025; 87040; 87086; 93005; 99284

== ENCOUNTER → 2024-04-10 10:35 | Outpatient (BNV) | payer MEDICARE, MEDICAID, SELFPAY ==
[2023-05-18 13:38] VITALS: BP 190/120; BMI 29.0
== END ==
PROVIDERS: Emergency Provider Emergency Medicine; PCP Nurse Practitioner Family; Visit Provider Internal Medicine
DX: R07.9 Chest pain, unspecified (principal); R94.31 Abnormal electrocardiogram [ECG] [EKG]
CPT/HCPCS: 93010

== ENCOUNTER → 2024-04-10 11:02 | Outpatient (BNV) | payer MEDICARE, MEDICAID, SELFPAY ==
[2023-05-18 13:38] VITALS: BP 190/120; BMI 29.0
== END ==
PROVIDERS: Emergency Provider Emergency Medicine; PCP Nurse Practitioner Family; Visit Provider Specialist
DX: R06.02 Shortness of breath (principal)
CPT/HCPCS: 71045

== ENCOUNTER 2024-04-26 07:37 | Outpatient (AMB) | payer MEDICARE, MEDICAID, SELFPAY ==
[2023-05-18 13:38] VITALS: BP 190/120; BMI 29.0
--- NOTE | 2024-04-26 08:19 | MHC.OFFVIS ---
Intake Visit Reasons: 3-3.5 month follow up Allergies amoxicillin Allergy (Unknown, Verified 04/10/24 10:45) rash cefaclor [From Ceclor] Allergy (Unknown, Verified 04/10/24 10:45) RASH cephalexin Allergy (Unknown, Verified 04/10/24 10:45) rash Cephalosporins [CEPHALOSPORINS] Allergy (Unknown, Verified 04/10/24 10:45) RASH ALL OVER cephradine [From VELOSEF] Allergy (Unknown, Verified 04/10/24 10:45) RASH Penicillins [PENICILLINS] Allergy (Unknown, Verified 04/10/24 10:45) RASH gabapentin [GABAPENTIN] Adverse Reaction (Unknown, Verified 04/10/24 10:45) RESTLESS LEGS, Body becomes very uncomfortable HPI HPI 3-3.5 month follow up: Details: History of Present Illness The patient is a 44-year-old female presenting with a history of persistent essential hypertension, with systolic blood pressure readings reportedly in the 200s. She is aware her mixer and scaler is managing her condition primarily through dialysis by aiming to remove more fluid, which is believed to be contributing to the hypertension. The patient has become frustrated with the current management strategy and has expressed an interest in trying different antihypertensive medications. She has a past medical history of end-stage renal disease for which she is undergoing dialysis. Recently, the patient has been experiencing nausea, for which she was started on Zofran. Pt reports losing weight, excessive skin is creating redness and dermatitis under the folds. Review of Systems - Cardiovascular: Reports high blood pressure. - Respiratory: Denies any shortness of breath. - Gastrointestinal: Reports nausea, helped by Zofran. - General: Denies fever or chills. - Psychiatric: Denies any suicidal or homicidal ideation. Plan - Essential Hypertension: Continue monitoring blood pressure closely. Acknowledge mixer and scaler's plan which includes fluid reduction during dialysis. - End-Stage Renal Disease: Follow mixer and scaler's guidance on dialysis adjustments. - Nausea: Continue Zofran for management of nausea and appetite improvement. -cream for dermatitis, encouraged to keep the area dry. Patient was informed and verbally consented to the use of an ambient scribe for clinic note documentation during this visit. Discussion Notes I discussed with the patient that her essential hypertension is closely related to fluid retention, which her mixer and scaler intends to address through dialysis. Although the patient feels a change in her medication regimen might help, I emphasized that her current nephrology management strategy is appropriate given her condition. We agreed to continue her current anti-nausea medication, Zofran, which has been effective. I reassured the patient and recommended maintaining regular dialysis sessions as per her mixer and scaler's plan. It is important to continue monitoring her symptoms and adjust treatment as guided by her specialists. Patient Instructions - Monitor blood pressure regularly at home. - Attend all scheduled dialysis sessions and follow the mixer and scaler's instructions regarding fluid management. - Take Zofran as prescribed for nausea and maintain a regular diet to improve appetite. - Report any new or worsening symptoms, particularly related to blood pressure or nausea, to your healthcare provider. [facility] Medical History Legally blind Vascular dialysis catheter in place Hypertensive retinopathy Macular edema Diabetic retinopathy Hyperglycemia CHF (congestive heart failure) Hypertensive urgency Malignant hypertension CKD (chronic kidney disease) Heart block AV second degree Hypersomnia Cardiomyopathy CKD (chronic kidney disease) stage 2, GFR 60-89 ml/min Nicotine dependence, cigarettes, uncomplicated (~1999) Eclampsia Fatty liver Heart failure, unspecified (~09/2020) History of DVT (deep vein thrombosis) Diabetes mellitus Migraines Sjogren's disease Lupus Rheumatoid arthritis High cholesterol Anxiety PTSD (post-traumatic stress disorder) Bipolar 1 disorder H/O mixed connective tissue disease HTN (hypertension) Surgical History History of H/O eye surgery History of hip surgery Tubal ligation status History of bronchoscopy (~11/2020) History of cholecystectomy (~05/2014) Family History Father Substance use disorder Mental health disorder Brother Substance use disorder Mental health disorder Brother Substance use disorder Mental health disorder Other Diabetes HTN (hypertension) Social History Household Members: Children Household Members Other:: 3 Housing: House Are you a primary residential child care counselor to a significant other at home: No Do you presently have visiting nurse or other home services: No Alcohol intake: never Patient Tobacco Use Status: Former Tobacco user Tobacco use type: Cigarette Cigarette Packs Per Day: 1 Cigarettes Per Day: 20.0 Years Smoked: 20 e-Cigarette/Vaping Use: Never Used Second Hand Smoke Exposure: No Substance Use Type: Marijuana Advance Directives Date on File: 06/03/21 service: No Current occupational status: disabled Cognitive needs: No Hearing needs: No Vision needs: No Telehealth Telehealth Telehealth Platform: [employer] Location of provider rendering services: practice address Location of patient: address on file Patient Identification confirmed using: Name, : Yes Telehealth method: video Patient verbally consented to treatment: Yes Patient verbally consented to billing insurance company: Yes Patient informed of any privacy concerns related to visit: Yes Minutes spent on Phone/Video with Pt.: 12 Assessment & Plan Assessment & Plan (1) Dialysis patient: Code(s): Z99.2 - Dependence on renal dialysis Category: Medical (2) Malignant hypertension: Code(s): I10 - Essential (primary) hypertension Category: Medical (3) Dermatitis: Code(s): L30.9 - Dermatitis, unspecified Category: Medical Plan . Medications: New clotrimazole-betamethasone 1-0.05 % 1 appl topical BID 45 grams 0RF 2 weeks Coding Level of Care Code Tele Est Pt Level 3 (49273) Diagnoses Dialysis patient Z99.2 Malignant hypertension I10 Dermatitis L30.9
== END 2024-04-26 08:39 | disposition home or self-care (01) ==
LOC: HO.HMCC 07:37
PROVIDERS: PCP Nurse Practitioner Family; Visit Provider Nurse Practitioner Family
DX: Z99.2 Dependence on renal dialysis (principal); I10 Essential (primary) hypertension; L30.9 Dermatitis, unspecified

== ENCOUNTER → 2024-04-26 07:37 | Outpatient (BNVA) | payer MEDICARE, MEDICAID, SELFPAY ==
[2023-05-18 13:38] VITALS: BP 190/120; BMI 29.0
== END ==
PROVIDERS: PCP Nurse Practitioner Family; Visit Provider Nurse Practitioner Family

== ENCOUNTER 2024-04-28 14:18 | Emergency (ER) | payer MEDICARE, MEDICAID, SELFPAY ==
[2023-05-18 13:38] VITALS: BP 190/120; BMI 29.0
--- NOTE | ~2024-04-28 | XR_ITS ---
EXAMINATION: XR CHEST CLINICAL INFORMATION: dyspnea COMPARISON: 04/10/2024, 09/04/2023. TECHNIQUE: Frontal view of the chest was obtained. FINDINGS: Cardiac silhouette is mildly prominent, possibly exaggerated by AP technique. Mediastinal and hilar contours are normal. Stable small surgical device overlying the left atrial appendage region. Lungs are clear bilaterally. There is no effusion or pneumothorax. No acute soft tissue or osseous abnormality. There are healed left rib fractures noted. XR/XR chest 1V IMPRESSION: No active pulmonary disease. Electronically signed by: Ernesto Pierce MD 04/28/2024 04:14 PM [facility] [place]
--- NOTE | 2024-04-28 14:21 | ECG_ITS ---
Test Reason : tachycardia Blood Pressure : */* mmHG Vent. Rate : 111 BPM Atrial Rate : 111 BPM P-R Int : 142 ms QRS Dur : 92 ms QT Int : 348 ms P-R-T Axes : 71 12 130 degrees QTcB Int : 473 ms Sinus tachycardia Possible Left atrial enlargement Left ventricular hypertrophy with repolarization abnormality ( R in aVL , Sokolow-Abarca , [place] product ) Abnormal ECG When compared with ECG of 10-Apr-2024 10:39, No significant change was found Referred By: Ken Rodriguez Electronically Signed By: TIFFANIE SWANN MD
[2024-04-28 14:42] VITALS: BP 234/135; PULSE 138; RESP 18; TEMP 36.4; O2SAT 100; BMI 25.8
--- NOTE | 2024-04-28 14:42 | ED_ITS ---
HPI - General Adult General Chief complaint: General Medical Stated complaint: rapid heart beat Time Seen by Provider: 04/28/24 14:56 Related Data Home Medications ?Medication ?Instructions ?Recorded ?Confirmed carvedilol 25 mg tablet 50 mg PO BID 03/20/22 01/27/24 nifedipine 90 mg tablet,extended 1 tab PO BID 04/22/22 01/27/24 release 24 hr Previous Rx's ?Medication ?Instructions ?Recorded lancets 28 gauge (FreeStyle #100 ea 03/20/22 Lancets) blood pressure test kit-large #1 ea 03/25/22 blood sugar diagnostic (FreeStyle #100 ea 05/18/23 Lite Strips) blood-glucose meter (FreeStyle #1 ea 05/18/23 Lite Meter kit) blood sugar diagnostic (FreeStyle #100 ea 06/09/23 Lite Strips) blood-glucose meter (FreeStyle #1 ea 06/09/23 Lite Meter kit) lancets 28 gauge (FreeStyle #100 ea 06/09/23 Lancets) sacubitril 24 mg-valsartan 26 mg 1 tab PO BID #30 tabs 06/09/23 tablet (Entresto) clonidine HCl 0.2 mg tablet 0.2 mg PO BID #180 tabs 06/19/23 tamsulosin 0.4 mg capsule 0.4 mg PO DAILY #90 caps 06/19/23 famotidine 20 mg tablet 20 mg PO DAILY #90 tabs 08/26/23 dulaglutide 1.5 mg/0.5 mL 1.5 mg (0.5 mL) subcut TH #2 mL 09/16/23 [facility] insulin glargine 100 unit/mL (3 20 unit (0.2 mL) subcut QAM #15 mL 10/04/23 mL) subcutaneous pen (Basaglar KwikPen U-100 Insulin) pen needle, diabetic 32 gauge x #100 ea 10/04/2304/09 alcohol swabs (Alcohol Prep Pads) 1 pad topical QID #360 pad 10/05/23 nicotine 21 mg/24 hr daily 1 patch transdermal DAILY #28 ea 01/27/24 transdermal patch albuterol sulfate 90 mcg/actuation 1 inh inhalation QID PRN Wheezing 02/01/24 aerosol inhaler 30 days #8.5 grams nicotine 14 mg/24 hr daily 1 patch transdermal DAILY #28 ea 04/15/24 transdermal patch (Nicoderm CQ) clotrimazole-betamethasone 1 1 appl topical BID 2 weeks #45 04/26/24 %-0.05 % topical cream grams Allergies Allergy/AdvReac Type Severity Reaction Status Date / Time amoxicillin Allergy Unknown rash Verified 04/28/24 14:45 cefaclor [From Ceclor] Allergy Unknown RASH Verified 04/28/24 14:45 cephalexin Allergy Unknown rash Verified 04/28/24 14:45 Cephalosporins Allergy Unknown RASH ALL Verified 04/28/24 14:45 [CEPHALOSPORINS] OVER cephradine [From VELOSEF] Allergy Unknown RASH Verified 04/28/24 14:45 Penicillins [PENICILLINS] Allergy Unknown RASH Verified 04/28/24 14:45 gabapentin [GABAPENTIN] AdvReac Unknown RESTLESS Verified 04/28/24 14:45 LEGS, Body becomes very uncomfortable PMFSH Past Medical History Medical History Legally blind Vascular dialysis catheter in place Hypertensive retinopathy Macular edema Diabetic retinopathy Hyperglycemia CHF (congestive heart failure) Hypertensive urgency Malignant hypertension CKD (chronic kidney disease) Heart block AV second degree Hypersomnia Cardiomyopathy CKD (chronic kidney disease) stage 2, GFR 60-89 ml/min Nicotine dependence, cigarettes, uncomplicated (~1999) Eclampsia Fatty liver Heart failure, unspecified (~09/2020) History of DVT (deep vein thrombosis) Diabetes mellitus Migraines Sjogren's disease Lupus Rheumatoid arthritis High cholesterol Anxiety PTSD (post-traumatic stress disorder) Bipolar 1 disorder H/O mixed connective tissue disease HTN (hypertension) Surgical History History of H/O eye surgery History of hip surgery Tubal ligation status History of bronchoscopy (~11/2020) History of cholecystectomy (~05/2014) Family History Family History Father Substance use disorder Mental health disorder Brother Substance use disorder Mental health disorder Brother Substance use disorder Mental health disorder Other Diabetes HTN (hypertension) Social History Social History Household Members: Children Household Members Other:: 3 Housing: House Are you a primary multi care technician to a significant other at home: No Do you presently have visiting nurse or other home services: No Alcohol intake: never Patient Tobacco Use Status: Former Tobacco user Tobacco use type: Cigarette Cigarette Packs Per Day: 1 Cigarettes Per Day: 20.0 Years Smoked: 20 Smoked in Last 30 Days: Yes e-Cigarette/Vaping Use: Never Used Second Hand Smoke Exposure: No Use of substances other than those prescribed or required for medical reasons: No Substance Use Type: Marijuana Advance Directives: Yes Advance Directives on File: Yes Advance Directives Date on File: 06/03/21 Do you have a plan to hurt others: No Plan service: No Current occupational status: disabled Cognitive needs: No Hearing needs: No Vision needs: No Physical Exam ED Vital Signs: Vital Signs - 24 hr 04/28/24 14:42 04/28/24 15:11 04/28/24 16:29 Temperature 97.5 F 98.2 F Pulse Rate 138 H 110 H 97 Respiratory Rate 18 18 16 Blood Pressure 234/135 H 219/115 H 201/113 H Pulse Oximetry 100 100 Oxygen Delivery Method Room Air Room Air 04/28/24 19:33 Temperature 99.2 F Pulse Rate 107 H Respiratory Rate 16 Blood Pressure 185/122 H Pulse Oximetry 100 Oxygen Delivery Method Room Air BMI result Body Mass Index 25.8 Course Course Course Narrative: RME, this is a rapid medical exam performed by Jeremias Rodriguez please refer to primary provider for complete H&P- 44-year-old female with a past medical history significant for diabetes, coronary artery disease, end-stage renal disease on dialysis presents for evaluation of palpitations and high blood pressure. Plan for cardiac workup. Medications Administered Discontinued Medications Generic Name Dose Route Start Last Admin Trade Name Freq PRN Reason Stop Dose Admin Diphenhydramine HCl 25 mg 04/28/24 16:41 04/28/24 17:01 Diphenhydramine Hcl 25 Mg Capsule PO 04/28/24 16:42 25 mg ONCE ONE Administration Ketorolac Tromethamine 15 mg 04/28/24 15:33 04/28/24 15:39 Ketorolac Tromethamine 15 Mg/Ml Vial IVPUSH 04/28/24 15:34 15 mg ONCE ONE Administration Metoclopramide HCl 10 mg 04/28/24 16:41 04/28/24 17:01 Metoclopramide Hcl 10 Mg/2 Ml Vial IVPUSH 04/28/24 16:42 10 mg ONCE ONE Administration Medical Decision Making Lab Data 04/28/24 15:10 04/28/24 15:10 Labs: Lab Results 04/28/24 04/28/24 04/28/24 Range/Units 15:10 15:11 16:08 WBC 20.2 H (4.8-10.8) X10*3/uL RBC 3.60 L (4.20-5.50) X10*6/uL Hgb 12.1 (12.0-16.0) g/dl Hct 34.5 L (37.0-47.0) % MCV 95.8 (80.0-98.0) fL MCH 33.6 H (27.0-33.0) pg MCHC 35.1 H (31.0-35.0) g/dl RDW 14.6 (11.0-16.0) % Plt Count 483 H D (160-400) X10*3/uL MPV 9.0 L (9.4-12.3) fL Immature Gran % (Auto) 0.5 H (0.0-0.4) % Neut % (Auto) 84.0 H (45-73) % Lymph % (Auto) 7.6 L (20-40) % [place] % (Auto) 6.4 (2-11) % Eos % (Auto) 1.0 (0-4) % Baso % (Auto) 0.5 (0-2) % Lymph # (Auto) 1.5 (1.2-4.9) X10*3/uL [place] # (Auto) 1.3 H (0.1-1.2) X10*3/uL Eos # (Auto) 0.2 (0.0-0.4) X10*3/uL Baso # (Auto) 0.1 (0.0-0.2) X10*3/uL Abs Immat Gran (auto) 0.10 H (0.00-0.03) X10*3/uL Absolute Neuts (auto) 17.0 H (2.0-8.3) x10*3/uL Absolute Nucleated RBC 0.000 (0.0-0.012) X10*3/uL Nucleated RBC % (auto) 0.0 (0.0-0.2) /100WBC PT 11.4 (10.9-12.4) SEC INR 1.0 (0.9-1.1) Sodium 135 (135-145) mmol/L Potassium 4.6 (3.3-5.1) mmol/L Chloride 106 (96-108) mmol/L Carbon Dioxide 17 L (22-29) mmol/L Anion Gap 17 (12-20) BUN 53 H (9-16) mg/dL Creatinine 4.76 H* (0.5-1.4) mg/dL Estim Creat Clear Calc 16.2 Estimated GFR 10 Random Glucose 202 H (60-115) mg/dL Calcium 8.8 D (8.4-10.2) mg/dL Magnesium 1.9 (1.6-2.6) mg/dL Total Bilirubin 0.6 (0.0-1.0) mg/dL AST 21 (5-31) U/L ALT 8 (0-31) U/L Alkaline Phosphatase 96 (39-117) U/L Troponin I High Sens 14.9 (<3.5-17.0) ng/L B-Natriuretic Peptide 3041 H (<100) pg/mL Total Protein 7.8 (6.5-8.0) g/dL Albumin 4.6 (3.5-5.0) g/dL Beta HCG, Quant < 2 mIU/mL Influenza Type A (PCR) NEGATIVE (Negative) Influenza Type B (PCR) NEGATIVE (Negative) RSV RNA Qual (PCR) NEGATIVE (Negative) SARS-CoV-2 RNA (RT-PCR) NEGATIVE (Negative) 04/28/24 Range/Units 19:31 WBC (4.8-10.8) X10*3/uL RBC (4.20-5.50) X10*6/uL Hgb (12.0-16.0) g/dl Hct (37.0-47.0) % MCV (80.0-98.0) fL MCH (27.0-33.0) pg MCHC (31.0-35.0) g/dl RDW (11.0-16.0) % Plt Count (160-400) X10*3/uL MPV (9.4-12.3) fL Immature Gran % (Auto) (0.0-0.4) % Neut % (Auto) (45-73) % Lymph % (Auto) (20-40) % [place] % (Auto) (2-11) % Eos % (Auto) (0-4) % Baso % (Auto) (0-2) % Lymph # (Auto) (1.2-4.9) X10*3/uL [place] # (Auto) (0.1-1.2) X10*3/uL Eos # (Auto) (0.0-0.4) X10*3/uL Baso # (Auto) (0.0-0.2) X10*3/uL Abs Immat Gran (auto) (0.00-0.03) X10*3/uL Absolute Neuts (auto) (2.0-8.3) x10*3/uL Absolute Nucleated RBC (0.0-0.012) X10*3/uL Nucleated RBC % (auto) (0.0-0.2) /100WBC PT (10.9-12.4) SEC INR (0.9-1.1) Sodium (135-145) mmol/L Potassium (3.3-5.1) mmol/L Chloride (96-108) mmol/L Carbon Dioxide (22-29) mmol/L Anion Gap (12-20) BUN (9-16) mg/dL Creatinine (0.5-1.4) mg/dL Estim Creat Clear Calc Estimated GFR Random Glucose (60-115) mg/dL Calcium (8.4-10.2) mg/dL Magnesium (1.6-2.6) mg/dL Total Bilirubin (0.0-1.0) mg/dL AST (5-31) U/L ALT (0-31) U/L Alkaline Phosphatase (39-117) U/L Troponin I High Sens 21.6 H (<3.5-17.0) ng/L B-Natriuretic Peptide (<100) pg/mL Total Protein (6.5-8.0) g/dL Albumin (3.5-5.0) g/dL Beta HCG, Quant mIU/mL Influenza Type A (PCR) (Negative) Influenza Type B (PCR) (Negative) RSV RNA Qual (PCR) (Negative) SARS-CoV-2 RNA (RT-PCR) (Negative) Discharge Plan Discharge Clinical Impression: Chest pain, Hypertensive urgency Patient Disposition: Home, Self-Care Instructions: Chest Pain (ED) Additional Instructions: You were seen and evaluated in the emergency room. Your found to have high blood pressure but no high blood pressure emergency. Your blood work showed findings consistent with your known chronic kidney disease and was otherwise reassuring. Your chest x-ray and EKG were reassuring. Please be sure that you complete your full dialysis session tomorrow April 29, 2024. Please follow-up with your primary care doctor in the next 5-7 days. ? Please return to the emergency room if you develop any worsening symptoms including, but not limited to fever, chest pain or difficulty breathing. ? Prescriptions: No Action (DME) lancets [FreeStyle Lancets] 28 gauge misc See Rx Instructions .Route Qty: 100 4RF Rx Instructions: As directed- tests 4X/day (DME) blood pressure test kit-large Kit See Rx Instructions .Route Qty: 1 0RF Rx Instructions: daily use famotidine 20 mg tablet 20 mg PO DAILY Qty: 90 0RF insulin glargine [Basaglar KwikPen U-100 Insulin] 100 unit/mL (3 mL) insulin pen 20 unit subcut QAM Qty: 15 0RF (DME) pen needle, diabetic 32 gauge x 1/4 needle Qty: 100 0RF Rx Instructions: Use four times a day or as directed. alcohol swabs [Alcohol Prep Pads] Pads, Medicated 1 pad topical QID Qty: 360 5RF albuterol sulfate 90 mcg/actuation HFA aerosol inhaler 1 inh inhalation QID PRN (Reason: Wheezing) 30 Days Qty: 8.5 1RF nicotine [Nicoderm CQ] 14 mg/24 hr patch 24 hour 1 patch transdermal DAILY Qty: 28 0RF carvedilol 25 mg tablet 50 mg PO BID nifedipine 90 mg tablet extended release 24hr 1 tab PO BID Entresto 24-26 mg Tablet 1 tab PO BID Qty: 30 0RF Protocol: Hold for SBP< HOLD for SBP < : 90 (DME) FreeStyle Lite Strips Strip Qty: 100 0RF Rx Instructions: Test four times a day or as directed. (DME) blood-glucose meter [FreeStyle Lite Meter] Kit Qty: 1 0RF Rx Instructions: As Directed (DME) lancets [FreeStyle Lancets] 28 gauge misc Qty: 100 0RF Rx Instructions: Test four times a day or as directed. clonidine HCl 0.2 mg Tablet 0.2 mg PO BID Qty: 180 0RF Protocol: Hold for SBP< HOLD for SBP < : 90 tamsulosin 0.4 mg Capsule 0.4 mg PO DAILY Qty: 90 0RF Trulicity 1.5 mg/0.5 mL pen injector 1.5 mg SUBCUT TH Qty: 2 4RF clotrimazole-betamethasone 1-0.05 % cream 1 appl topical BID 14 Days Qty: 45 0RF (DME) blood-glucose meter [FreeStyle Lite Meter] Kit See Rx Instructions .Route Qty: 1 0RF Rx Instructions: As directed tests 4 X/day (DME) FreeStyle Lite Strips Strip See Rx Instructions .Route Qty: 100 5RF Rx Instructions: As directed- tests 4X/day nicotine 21 mg/24 hr patch 24 hour 1 patch transdermal DAILY Qty: 28 1RF Referrals: Mauricio Nolasco, [facility] [Primary Care Provider] - 05/02/24 Print Language: Bhutanese
--- NOTE | 2024-04-28 14:59 | ED.GENADULT ---
HPI - General Adult General Chief complaint: General Medical Stated complaint: rapid heart beat Time Seen by Provider: 04/28/24 14:56 Source: patient Mode of arrival: ambulatory Limitations: no limitations History of Present Illness HPI narrative: This is a 44-year-old woman with a past medical history of hypertension, diabetes mellitus, CKD on dialysis MWF who presents for evaluation. Patient states that she did not have her regular dialysis on Thursday because of this no and she was scheduled for a dialysis session on Thursday. She states that she does not do well with dialysis 2 days in a row and so she was told to skip her dialysis session on Thursday and plan for her routine dialysis treatment on Thursday. She states having sensation palpitations today and feeling off . She states no fevers, chills, cough or sputum production. She states no chest pain, hemoptysis or dyspnea. She states no swelling in her legs. She states thinking that her hands were a bit swollen. She states earlier this morning having atypical headache for which she took Reglan. She reports that this helped. She states also having sensation of heartburn earlier this morning in the middle of her chest. She states no diaphoresis or vomiting. She states no radiation of this pain to her back or abdomen. She states no trauma. Related Data Home Medications ?Medication ?Instructions ?Recorded ?Confirmed carvedilol 25 mg tablet 50 mg PO BID 03/20/22 01/27/24 nifedipine 90 mg tablet,extended 1 tab PO BID 04/22/22 01/27/24 release 24 hr Previous Rx's ?Medication ?Instructions ?Recorded lancets 28 gauge (FreeStyle #100 ea 03/20/22 Lancets) blood pressure test kit-large #1 ea 03/25/22 blood sugar diagnostic (FreeStyle #100 ea 05/18/23 Lite Strips) blood-glucose meter (FreeStyle #1 ea 05/18/23 Lite Meter kit) blood sugar diagnostic (FreeStyle #100 ea 06/09/23 Lite Strips) blood-glucose meter (FreeStyle #1 ea 06/09/23 Lite Meter kit) lancets 28 gauge (FreeStyle #100 ea 06/09/23 Lancets) sacubitril 24 mg-valsartan 26 mg 1 tab PO BID #30 tabs 06/09/23 tablet (Entresto) clonidine HCl 0.2 mg tablet 0.2 mg PO BID #180 tabs 06/19/23 tamsulosin 0.4 mg capsule 0.4 mg PO DAILY #90 caps 06/19/23 famotidine 20 mg tablet 20 mg PO DAILY #90 tabs 08/26/23 dulaglutide 1.5 mg/0.5 mL 1.5 mg (0.5 mL) subcut TH #2 mL 09/16/23 subcutaneous pen injector (Trulicity) insulin glargine 100 unit/mL (3 20 unit (0.2 mL) subcut QAM #15 mL 10/04/23 mL) subcutaneous pen (Basaglar KwikPen U-100 Insulin) pen needle, diabetic 32 gauge x #100 ea 10/04/23/ alcohol swabs (Alcohol Prep Pads) 1 pad topical QID #360 pad 10/05/23 nicotine 21 mg/24 hr daily 1 patch transdermal DAILY #28 ea 01/27/24 transdermal patch albuterol sulfate 90 mcg/actuation 1 inh inhalation QID PRN Wheezing 02/01/24 aerosol inhaler 30 days #8.5 grams nicotine 14 mg/24 hr daily 1 patch transdermal DAILY #28 ea 04/15/24 transdermal patch (Nicoderm CQ) clotrimazole-betamethasone 1 1 appl topical BID 2 weeks #45 04/26/24 %-0.05 % topical cream grams Allergies Allergy/AdvReac Type Severity Reaction Status Date / Time amoxicillin Allergy Unknown rash Verified 04/28/24 14:45 cefaclor [From Ceclor] Allergy Unknown RASH Verified 04/28/24 14:45 cephalexin Allergy Unknown rash Verified 04/28/24 14:45 Cephalosporins Allergy Unknown RASH ALL Verified 04/28/24 14:45 [CEPHALOSPORINS] OVER cephradine [From VELOSEF] Allergy Unknown RASH Verified 04/28/24 14:45 Penicillins [PENICILLINS] Allergy Unknown RASH Verified 04/28/24 14:45 gabapentin [GABAPENTIN] AdvReac Unknown RESTLESS Verified 04/28/24 14:45 LEGS, Body becomes very uncomfortable Review of Systems Review of Systems: ROS as per HPI [facility] Past Medical History Medical History Legally blind Vascular dialysis catheter in place Hypertensive retinopathy Macular edema Diabetic retinopathy Hyperglycemia CHF (congestive heart failure) Hypertensive urgency Malignant hypertension CKD (chronic kidney disease) Heart block AV second degree Hypersomnia Cardiomyopathy CKD (chronic kidney disease) stage 2, GFR 60-89 ml/min Nicotine dependence, cigarettes, uncomplicated (~1999) Eclampsia Fatty liver Heart failure, unspecified (~09/2020) History of DVT (deep vein thrombosis) Diabetes mellitus Migraines Sjogren's disease Lupus Rheumatoid arthritis High cholesterol Anxiety PTSD (post-traumatic stress disorder) Bipolar 1 disorder H/O mixed connective tissue disease HTN (hypertension) Surgical History History of H/O eye surgery History of hip surgery Tubal ligation status History of bronchoscopy (~11/2020) History of cholecystectomy (~05/2014) Family History Family History Father Substance use disorder Mental health disorder Brother Substance use disorder Mental health disorder Brother Substance use disorder Mental health disorder Other Diabetes HTN (hypertension) Social History Social History Household Members: Children Household Members Other:: 3 Housing: House Are you a primary social worker palliative care to a significant other at home: No Do you presently have visiting nurse or other home services: No Alcohol intake: never Patient Tobacco Use Status: Former Tobacco user Tobacco use type: Cigarette Cigarette Packs Per Day: 1 Cigarettes Per Day: 20.0 Years Smoked: 20 e-Cigarette/Vaping Use: Never Used Second Hand Smoke Exposure: No Substance Use Type: Marijuana Advance Directives: Yes Advance Directives on File: Yes Advance Directives Date on File: 06/03/21 Do you have a plan to hurt others: No Plan service: No Current occupational status: disabled Cognitive needs: No Hearing needs: No Vision needs: No Physical Exam ED Vital Signs: Vital Signs - 24 hr 04/28/24 14:42 04/28/24 15:11 04/28/24 16:29 Temperature 97.5 F 98.2 F Pulse Rate 138 H 110 H 97 Respiratory Rate 18 18 16 Blood Pressure 234/135 H 219/115 H 201/113 H Pulse Oximetry 100 100 Oxygen Delivery Method Room Air Room Air BMI result Body Mass Index 25.8 Gen: NAD, AOx3 HEENT: NCAT, EOMI, normal conjunctiva CV: RRR, no pitting edema to the upper and lower extremities Pulm: CTAB, no increased work of breathing GI: Soft, NTND Neuro: Grossly non focal Medications Administered Discontinued Medications Generic Name Dose Route Start Last Admin Trade Name Opal PRN Reason Stop Dose Admin Ketorolac Tromethamine 15 mg 04/28/24 15:33 04/28/24 15:39 Ketorolac Tromethamine 15 Mg/Ml Vial IVPUSH 04/28/24 15:34 15 mg ONCE ONE Administration Medical Decision Making Medical Decision Making [facility] Narrative: Differential diagnosis includes, but is not limited to gastroesophageal reflux, gastritis anxiety, ACS, fluid overload, electrolyte abnormality, hypertensive urgency, hypertensive emergency. Patient is afebrile and hemodynamically stable on room air. Exam is benign and reassuring. I independently reviewed and interpreted the patient's labs, EKG and chest x-ray as below. Patient is provided supportive care for her headache with Toradol. On reexamination, patient states that she had her headache has significantly improved. She is amenable to additional medicines for migraine. She is agreeable to Benadryl and Reglan, which she states she has responded to well in the past. Care is transitioned to oncoming physician, Dr. Serna, at the end of my shift with disposition pending repeat troponin. Admission/Observation Consideration of admission/observation: Escalation of care including admission/observation considered Lab Data [facility] Lab Attestation statement: I reviewed the patient's lab results. I independently reviewed and interpreted the patient's patient's labs, which is notable for leukocytosis of 20.2, stable hemoglobin at 12.1, thrombocytosis of 483, metabolic panel is notable for creatinine of 4.76 consistent with the patient's known chronic kidney disease on dialysis there is no evidence of end-organ damage to suggest hypertensive emergency, there is mild hyperglycemia of 202 ( I do not suspect diabetic ketoacidosis in this clinical setting and anion gap is reassuring at 17 within the reference range), BNP is elevated at 3041 which is expected in the setting of known chronic kidney disease on dialysis. Beta HCG negative. Initial troponin reassuring at 14.9 we will obtain serial troponin. 04/28/24 15:10 04/28/24 15:10 Labs: Lab Results 04/28/24 04/28/24 Range/Units 15:10 15:11 WBC 20.2 H (4.8-10.8) X10*3/uL RBC 3.60 L (4.20-5.50) X10*6/uL Hgb 12.1 (12.0-16.0) g/dl Hct 34.5 L (37.0-47.0) % MCV 95.8 (80.0-98.0) fL MCH 33.6 H (27.0-33.0) pg MCHC 35.1 H (31.0-35.0) g/dl RDW 14.6 (11.0-16.0) % Plt Count 483 H D (160-400) X10*3/uL MPV 9.0 L (9.4-12.3) fL Immature Gran % (Auto) 0.5 H (0.0-0.4) % Neut % (Auto) 84.0 H (45-73) % Lymph % (Auto) 7.6 L (20-40) % Mcdowell % (Auto) 6.4 (2-11) % Eos % (Auto) 1.0 (0-4) % Baso % (Auto) 0.5 (0-2) % Lymph # (Auto) 1.5 (1.2-4.9) X10*3/uL Mcdowell # (Auto) 1.3 H (0.1-1.2) X10*3/uL Eos # (Auto) 0.2 (0.0-0.4) X10*3/uL Baso # (Auto) 0.1 (0.0-0.2) X10*3/uL Abs Immat Gran (auto) 0.10 H (0.00-0.03) X10*3/uL Absolute Neuts (auto) 17.0 H (2.0-8.3) x10*3/uL Absolute Nucleated RBC 0.000 (0.0-0.012) X10*3/uL Nucleated RBC % (auto) 0.0 (0.0-0.2) /100WBC PT 11.4 (10.9-12.4) SEC INR 1.0 (0.9-1.1) Sodium 135 (135-145) mmol/L Potassium 4.6 (3.3-5.1) mmol/L Chloride 106 (96-108) mmol/L Carbon Dioxide 17 L (22-29) mmol/L Anion Gap 17 (12-20) BUN 53 H (9-16) mg/dL Creatinine 4.76 H* (0.5-1.4) mg/dL Estim Creat Clear Calc 16.2 Estimated GFR 10 Random Glucose 202 H (60-115) mg/dL Calcium 8.8 D (8.4-10.2) mg/dL Magnesium 1.9 (1.6-2.6) mg/dL Total Bilirubin 0.6 (0.0-1.0) mg/dL AST 21 (5-31) U/L ALT 8 (0-31) U/L Alkaline Phosphatase 96 (39-117) U/L Troponin I High Sens 14.9 (<3.5-17.0) ng/L B-Natriuretic Peptide 3041 H (<100) pg/mL Total Protein 7.8 (6.5-8.0) g/dL Albumin 4.6 (3.5-5.0) g/dL Beta HCG, Quant < 2 mIU/mL Independent Interpretation I performed an independent interpretation of an: EKG and Plain X-Ray Interpretation: I independently reviewed and interpreted the patient's EKG, which demonstrates a sinus tachycardia at 111 beats per minute, [place] 142, QRS 92, QTC 473, no STEMI, no peaked T-waves. I independently reviewed and interpreted the patient's chest x-ray, which demonstrates no pleural effusion, pneumothorax or focal consolidation. Radiology Impression Discussion of test interpretation with radiology: I have reviewed the radiologist's reading. Radiologist Impression: XR/XR chest 1V IMPRESSION: No active pulmonary disease. Electronically signed by: Ernesto Pierce MD 04/28/2024 04:14 PM [facility] [place] Dictated By: Ernesto Pierce MD Signed By: <Electronically signed by Ernesto Pierce MD in OV> 04/28/24 2927 Discharge Plan Discharge Clinical Impression: Chest pain, Hypertensive urgency Patient Disposition: Still a Patient Instructions: Chest Pain (ED) Additional Instructions: You were seen and evaluated in the emergency room. Your found to have high blood pressure but no high blood pressure emergency. Your blood work showed findings consistent with your known chronic kidney disease and was otherwise reassuring. Your chest x-ray and EKG were reassuring. Please be sure that you complete your full dialysis session tomorrow April 29, 2024. Please follow-up with your primary care doctor in the next 5-7 days. ? Please return to the emergency room if you develop any worsening symptoms including, but not limited to fever, chest pain or difficulty breathing. ? Prescriptions: No Action (DME) lancets [FreeStyle Lancets] 28 gauge misc See Rx Instructions .Route Qty: 100 4RF Rx Instructions: As directed- tests 4X/day (DME) blood pressure test kit-large Kit See Rx Instructions .Route Qty: 1 0RF Rx Instructions: daily use famotidine 20 mg tablet 20 mg PO DAILY Qty: 90 0RF insulin glargine [Basaglar KwikPen U-100 Insulin] 100 unit/mL (3 mL) insulin pen 20 unit subcut QAM Qty: 15 0RF (DME) pen needle, diabetic 32 gauge x 1/4 needle Qty: 100 0RF Rx Instructions: Use four times a day or as directed. alcohol swabs [Alcohol Prep Pads] Pads, Medicated 1 pad topical QID Qty: 360 5RF albuterol sulfate 90 mcg/actuation HFA aerosol inhaler 1 inh inhalation QID PRN (Reason: Wheezing) 30 Days Qty: 8.5 1RF nicotine [Nicoderm CQ] 14 mg/24 hr patch 24 hour 1 patch transdermal DAILY Qty: 28 0RF carvedilol 25 mg tablet 50 mg PO BID nifedipine 90 mg tablet extended release 24hr 1 tab PO BID Entresto 24-26 mg Tablet 1 tab PO BID Qty: 30 0RF Protocol: Hold for SBP< HOLD for SBP < : 90 (DME) FreeStyle Lite Strips Strip Qty: 100 0RF Rx Instructions: Test four times a day or as directed. (DME) blood-glucose meter [FreeStyle Lite Meter] Kit Qty: 1 0RF Rx Instructions: As Directed (DME) lancets [FreeStyle Lancets] 28 gauge misc Qty: 100 0RF Rx Instructions: Test four times a day or as directed. clonidine HCl 0.2 mg Tablet 0.2 mg PO BID Qty: 180 0RF Protocol: Hold for SBP< HOLD for SBP < : 90 tamsulosin 0.4 mg Capsule 0.4 mg PO DAILY Qty: 90 0RF Trulicity 1.5 mg/0.5 mL pen injector 1.5 mg SUBCUT TH Qty: 2 4RF clotrimazole-betamethasone 1-0.05 % cream 1 appl topical BID 14 Days Qty: 45 0RF (DME) blood-glucose meter [FreeStyle Lite Meter] Kit See Rx Instructions .Route Qty: 1 0RF Rx Instructions: As directed tests 4 X/day (DME) FreeStyle Lite Strips Strip See Rx Instructions .Route Qty: 100 5RF Rx Instructions: As directed- tests 4X/day nicotine 21 mg/24 hr patch 24 hour 1 patch transdermal DAILY Qty: 28 1RF Print Language: Arabic
[2024-04-28 15:11] VITALS: BP 219/115; PULSE 110; RESP 18
[2024-04-28 15:15] LABS: MANUAL DIFF FLAG NO
[2024-04-28 15:18] LABS: Basophils Absolute Auto 0.1 X10*3/uL (0.0-0.2); Basophils Percent Auto 0.5 % (0-2); Eosinophils Absolute Auto 0.2 X10*3/uL (0.0-0.4); Hematocrit 34.5 % (37.0-47.0); Hemoglobin 12.1 g/dl (12.0-16.0); Imm Gran Pct Auto 0.5 % (0.0-0.4); Lymphocytes Absolute Auto 1.5 X10*3/uL (1.2-4.9); Lymphocytes Percent Auto 7.6 % (20-40); Mean Corpuscular HGB Conc 35.1 g/dl (31.0-35.0); Mean Corpuscular Hemoglobin 33.6 pg (27.0-33.0); Mean Corpuscular Volume 95.8 fL (80.0-98.0); Monocytes Absolute Auto 1.3 X10*3/uL (0.1-1.2); Monocytes Percent Auto 6.4 % (2-11); Platelet Count 483 X10*3/uL (160-400); Red Cell Distribution Width 14.6 % (11.0-16.0); White Blood Count 20.2 X10*3/uL (4.8-10.8)
[2024-04-28 15:26] LABS: Prothrombin Time 11.4 SEC (10.9-12.4)
[2024-04-28 15:35] LABS: B Type Natriuretic Peptide 3041 pg/mL (<100)
[2024-04-28] MEDS: Ketorolac Tromethamine 15 MG/ML VIAL IVPUSH (15:39)
[2024-04-28 15:42] LABS: HCG Quantitative < 2 mIU/mL
[2024-04-28 15:45] LABS: Alanine Aminotransferase 8 U/L (0-31); Albumin Level 4.6 g/dL (3.5-5.0); Anion Gap 17 (12-20); Aspartate Amino Transferase 21 U/L (5-31); Bilirubin Total 0.6 mg/dL (0.0-1.0); Blood Urea Nitrogen 53 mg/dL (9-16); Calcium 8.8 mg/dL (8.4-10.2); Carbon Dioxide 17 mmol/L (22-29); Chloride 106 mmol/L (96-108); Creatinine Clr Calc Pharmacy 16.2; Estimated Glomerular Filt Rate 10; Glucose Random 202 mg/dL (60-115); Magnesium 1.9 mg/dL (1.6-2.6); Potassium 4.6 mmol/L (3.3-5.1); Sodium 135 mmol/L (135-145); Total Protein 7.8 g/dL (6.5-8.0)
[2024-04-28 15:46] LABS: Alkaline Phosphatase 96 U/L (39-117)
[2024-04-28 16:03] LABS: Troponin-I High Sensitivity 14.9 ng/L (<3.5-17.0)
[2024-04-28 16:29] VITALS: BP 201/113; PULSE 97; RESP 16; TEMP 36.8; O2SAT 100
[2024-04-28 16:53] LABS: Influenza A PCR NEGATIVE (Negative); Influenza B PCR NEGATIVE (Negative); Resp Syncy Virus RNA Qual PCR NEGATIVE (Negative); SARS COV2 PCR INHOUSE NEGATIVE (Negative)
[2024-04-28] MEDS: diphenhydrAMINE HCL 25 MG CAPSULE PO (17:01)
[2024-04-28] MEDS: Metoclopramide HCl 10 MG/2 ML VIAL IVPUSH (17:01)
[2024-04-28 19:33] VITALS: BP 185/122; PULSE 107; RESP 16; TEMP 37.3; O2SAT 100
[2024-04-28 19:55] LABS: Troponin-I High Sensitivity 21.6 ng/L (<3.5-17.0)
[2024-04-28 21:02] VITALS: BP 197/108; PULSE 105; RESP 12; O2SAT 100
[2024-04-28] MEDS: Acetaminophen 325 MG TABLET 650 MG PO (21:05)
[2024-04-28 21:11] VITALS: BP 197/108; PULSE 105; RESP 12; TEMP 36.6; O2SAT 100
== END 2024-04-28 21:12 | disposition home or self-care (01) ==
PROVIDERS: Emergency Medicine Emergency Medical Services; Physician Assistant; Emergency Provider Emergency Medicine; PCP Nurse Practitioner Family
DX: I16.0 Hypertensive urgency (principal); R07.9 Chest pain, unspecified; R00.0 Tachycardia, unspecified; Z03.818 Encounter for observation for suspected exposure to other biological agents ruled out
CPT/HCPCS: 0241U; 36415; 71045; 80053; 83735; 83880; 84484; 84702; 85025; 85610; 93005; 96374; 96375; 99284; 99285; J1885; J2765

== ENCOUNTER → 2024-04-28 14:21 | Outpatient (BNV) | payer MEDICARE, MEDICAID, SELFPAY ==
[2023-05-18 13:38] VITALS: BP 190/120; BMI 29.0
== END ==
PROVIDERS: Emergency Provider Emergency Medicine; PCP Nurse Practitioner Family; Visit Provider Internal Medicine Cardiovascular Disease
DX: I51.7 Cardiomegaly (principal); R00.0 Tachycardia, unspecified
CPT/HCPCS: 93010

== ENCOUNTER 2024-05-22 09:01 | Inpatient (IN) | payer MEDICARE, MEDICAID, SELFPAY ==
[2023-05-18 13:38] VITALS: BP 190/120; BMI 29.0
[2024-05-22] VITALS (10 sets, daily range): BP systolic 146–168; BP diastolic 73–101; PULSE 72–103; RESP 16–22; TEMP 36.6–37.1; O2SAT 92–100; BMI 24.0
--- NOTE | 2024-05-22 | ECG_ITS ---
Test Reason : SOB Blood Pressure : */* mmHG Vent. Rate : 95 BPM Atrial Rate : 95 BPM P-R Int : 138 ms QRS Dur : 92 ms QT Int : 384 ms P-R-T Axes : 64 21 151 degrees QTcB Int : 482 ms Normal sinus rhythm Left ventricular hypertrophy with repolarization abnormality ( Sokolow-Abarca , Romhilt-Peres ) Prolonged QT Abnormal ECG When compared with ECG of 28-Apr-2024 14:38, T wave inversion now evident in Anterior leads Referred By: Clarissa Melo Electronically Signed By: TIFFANIE SWANN MD
--- NOTE | ~2024-05-22 | XR_ITS ---
CLINICAL HISTORY: sob 2 view chest x-ray Comparison: CR/SR - XR CHEST 1V - 04/28/24 15:51 EST Findings: Minimal interstitial prominence. No overt edema. Cardiac and mediastinal contours are mildly prominent but stable. Old left-sided rib fractures. No acute fracture. IMPRESSION: Mild interstitial prominence without overt edema. No effusion. This document has been electronically signed by: Barrett Trevizo MD on 05/22/2024 09:50:06
--- NOTE | ~2024-05-22 | CT_ITS ---
CLINICAL HISTORY: CP, hx of DVT in past, R sided pain ddimer pos CT angiography chest with contrast. 3D Postprocessing. Comparison: CT/SR - CT ANGIO CHEST PE PROTOCOL - 04/20/21 01:41 EST Findings: The main pulmonary is dilated to 4.2 cm. No aortic aneurysm. Mild cardiomegaly. No evidence pulmonary embolism. There is a foreign body seen best on coronal image 49 within a left lower lobe pulmonary artery. The remainder of the pulmonary arterial system appears patent. Patchy multifocal airspace density within the medial lung bases, coronal images 54 -63. No effusion. No pneumothorax. The visualized upper abdomen demonstrates no acute process. No acute fracture or malalignment. Impression: There is no evidence of pulmonary embolism. There is a metallic appearing foreign body within a left lower lobe pulmonary artery best seen on coronal image 49. This is chronic. Multifocal pneumonia. Mild cardiomegaly. Dilation of the main pulmonary artery. Correlation for pulmonary arterial hypertension. This document has been electronically signed by: Barrett Trevizo MD on 05/22/2024 11:48:33
--- NOTE | 2024-05-22 09:16 | ED.SOB ---
HPI - SOB/Dyspnea General Chief Complaint: Dyspnea Stated Complaint: SOB Source: patient, EMS and old records reviewed Mode of arrival: EMS Limitations: no limitations History of Present Illness ED Provider: ISAI HPI Narrative: 44 yo female with PMH of DM, NSTEMI, CHF, HTN, cardiomyopathy, HLD, bipolar disorder, ESRD on HD MWF, prior DVT not on thinner she has been compliant here with c/o VAZQUEZ since Thursday. She denies cough, has some central chest pain. She heard herself wheezing. She has no leg edema or weight gain. She notes she cannot lie flat. She had a normal HD session on Thursday. No n/v/d sputum production. EMS found her 97% on RA. She notes symptoms persistent all the time. MD elicited complaint: shortness of breath and chest pain Pertinent past history: congestive heart failure Onset (ago): day(s) (2) Context: other Timing: constant Severity: moderate Exacerbating factors: coughing Relieving factors: oxygen Known history of: congestive heart failure Associated symptoms: chest pain Treatment prior to arrival: oxygen Related Data Home Medications ?Medication ?Instructions ?Recorded ?Confirmed carvedilol 25 mg tablet 50 mg PO BID 03/20/22 01/27/24 nifedipine 90 mg tablet,extended 1 tab PO BID 04/22/22 01/27/24 release 24 hr Previous Rx's ?Medication ?Instructions ?Recorded lancets 28 gauge (FreeStyle #100 ea 03/20/22 Lancets) blood pressure test kit-large #1 ea 03/25/22 blood sugar diagnostic (FreeStyle #100 ea 05/18/23 Lite Strips) blood-glucose meter (FreeStyle #1 ea 05/18/23 Lite Meter kit) blood sugar diagnostic (FreeStyle #100 ea 06/09/23 Lite Strips) blood-glucose meter (FreeStyle #1 ea 06/09/23 Lite Meter kit) lancets 28 gauge (FreeStyle #100 ea 06/09/23 Lancets) sacubitril 24 mg-valsartan 26 mg 1 tab PO BID #30 tabs 06/09/23 tablet (Entresto) clonidine HCl 0.2 mg tablet 0.2 mg PO BID #180 tabs 06/19/23 tamsulosin 0.4 mg capsule 0.4 mg PO DAILY #90 caps 06/19/23 famotidine 20 mg tablet 20 mg PO DAILY #90 tabs 08/26/23 dulaglutide 1.5 mg/0.5 mL 1.5 mg (0.5 mL) subcut TH #2 mL 09/16/23 subcutaneous pen injector (Trulicity) insulin glargine 100 unit/mL (3 20 unit (0.2 mL) subcut QAM #15 mL 10/04/23 mL) subcutaneous pen (Basaglar KwikPen U-100 Insulin) pen needle, diabetic 32 gauge x #100 ea 10/04/23 1/ alcohol swabs (Alcohol Prep Pads) 1 pad topical QID #360 pad 10/05/23 nicotine 21 mg/24 hr daily 1 patch transdermal DAILY #28 ea 01/27/24 transdermal patch albuterol sulfate 90 mcg/actuation 1 inh inhalation QID PRN Wheezing 02/01/24 aerosol inhaler 30 days #8.5 grams nicotine 14 mg/24 hr daily 1 patch transdermal DAILY #28 ea 04/15/24 transdermal patch (Nicoderm CQ) clotrimazole-betamethasone 1 1 appl topical BID 2 weeks #45 04/26/24 %-0.05 % topical cream grams Allergies Allergy/AdvReac Type Severity Reaction Status Date / Time amoxicillin Allergy Unknown rash Verified 05/22/24 09:15 cefaclor [From Ceclor] Allergy Unknown RASH Verified 05/22/24 09:15 cephalexin Allergy Unknown rash Verified 05/22/24 09:15 Cephalosporins Allergy Unknown RASH ALL Verified 05/22/24 09:15 [CEPHALOSPORINS] OVER cephradine [From VELOSEF] Allergy Unknown RASH Verified 05/22/24 09:15 Penicillins [PENICILLINS] Allergy Unknown RASH Verified 05/22/24 09:15 gabapentin [GABAPENTIN] AdvReac Unknown RESTLESS Verified 05/22/24 09:15 LEGS, Body becomes very uncomfortable Review of Systems Review of Systems: Constitutional : No Weight loss, No Fever, No Chills ENT/Mouth : No sore throat, No Rhinorrhea Eyes: No Eye Pain, No Swelling Cardiovascular : pos Chest Pain, pos SOB, no Dyspnea on Exertion, pos Orthopnea, No Edema, No Palpitations Respiratory : No Cough, No Sputum Gastrointestinal : no Nausea, No Vomiting, No Diarrhea, No abdominal Pain, No Hematochezia, No Melena Genitourinary : No Dysuria, No Urinary Frequency Musculoskeletal : No joint pain, No Myalgias, No Joint Swelling Skin : No Skin Lesions, No rash Neuro : No Weakness, No Numbness, No Dizziness, No Headache All other systems reviewed and are negative [facility] Past Medical History Attestation statement: The following information was validated with the patient. Source: old records reviewed Medical History Legally blind Vascular dialysis catheter in place Hypertensive retinopathy Macular edema Diabetic retinopathy Hyperglycemia CHF (congestive heart failure) Hypertensive urgency Malignant hypertension CKD (chronic kidney disease) Heart block AV second degree Hypersomnia Cardiomyopathy CKD (chronic kidney disease) stage 2, GFR 60-89 ml/min Nicotine dependence, cigarettes, uncomplicated (~1999) Eclampsia Fatty liver Heart failure, unspecified (~09/2020) History of DVT (deep vein thrombosis) Diabetes mellitus Migraines Sjogren's disease Lupus Rheumatoid arthritis High cholesterol Anxiety PTSD (post-traumatic stress disorder) Bipolar 1 disorder H/O mixed connective tissue disease HTN (hypertension) Surgical History History of H/O eye surgery History of hip surgery Tubal ligation status History of bronchoscopy (~11/2020) History of cholecystectomy (~05/2014) Family History Family History Father Substance use disorder Mental health disorder Brother Substance use disorder Mental health disorder Brother Substance use disorder Mental health disorder Other Diabetes HTN (hypertension) Social History Social History Household Members: Children Household Members Other:: 3 Housing: House Are you a primary pulmonary care nurse to a significant other at home: No Do you presently have visiting nurse or other home services: No Alcohol intake: never Patient Tobacco Use Status: Former Tobacco user Tobacco use type: Cigarette Cigarette Packs Per Day: 1 Cigarettes Per Day: 20.0 Years Smoked: 20 Smoked in Last 30 Days: Yes e-Cigarette/Vaping Use: Never Used Second Hand Smoke Exposure: No Use of substances other than those prescribed or required for medical reasons: Yes Substance Use Type: Marijuana Advance Directives: Yes Advance Directives on File: Yes Advance Directives Date on File: 06/03/21 Do you have a plan to hurt others: No Plan Patient : No service: No Current occupational status: disabled Cognitive needs: No Hearing needs: No Vision needs: No Physical Exam Vital Signs: Vital Signs: Last Vital Signs Temp 98.3 F 05/22/24 09:13 Pulse 92 05/22/24 11:05 Resp 22 H 05/22/24 11:05 BP 152/73 H 05/22/24 11:05 Pulse Ox 92 05/22/24 11:05 O2 Del Method Nasal Cannula 05/22/24 11:05 O2 Flow Rate 2 05/22/24 11:05 Oxygen Flow Rate 2 05/22/24 09:13 BMI result Body Mass Index 24.0 Appearance: Alert. Oriented X3. No acute distress. Eyes: Pupils equal, round and reactive to light. ENT: Pharynx normal. Neck: Normal inspection. Neck supple. CVS: Normal heart rate and rhythm. Pulses normal. Respiratory: No respiratory distress. Breath sounds normal. Abdomen: Soft and nontender. Skin: Skin warm and dry. Normal skin color. Normal skin turgor. Extremities: No lower extremity edema. No calf ttp Neuro: Oriented X 3. No motor deficit. No sensory deficit. CN2-12 intact Course Course Course Narrative: ddimer elevated high prob PE given prior DVT will obtain CTA Medications Administered Discontinued Medications Generic Name Dose Route Start Last Admin Trade Name Freq PRN Reason Stop Dose Admin Albuterol Sulfate 2.5 mg/ 0 mg 05/22/24 09:55 05/22/24 10:00 Albuterol/Ipratropium 3 ml INHALE 05/22/24 09:56 5 dose ONCE ONE Administration Levofloxacin 500 mg in 100 mls @ 100 mls/hr 05/22/24 11:54 05/22/24 13:23 Levaquin IV 05/22/24 12:53 100 mls/hr ONCE ONE Administration Iohexol 100 ml 05/22/24 11:21 05/22/24 11:21 Iohexol 350 Mg/Ml 100 Ml Infus..Btl IV 05/22/24 11:22 65 ml ONCE ONE Administration Medical Decision Making Medical Decision Making MDM Narrative: 44 yo female with PMH of DM, NSTEMI, CHF, HTN, cardiomyopathy, HLD, bipolar disorder, ESRD on HD MWF she has been compliant here with c/o orthopnea, dyspnea, chest pain x 2 days without infectious symptoms she is not hypoxic she is tachy and did take all of her medications this AM, she had full HD session on Thursday. At this time will need trop x 2, BNP, CXR, ddimer - she is due for HD tomorrow could get CTA. Bedside ECHO for effusion Differential Diagnosis Differential Diagnoses: The differential diagnosis associated with the presentation includes CHF, NSTEMI, VTE, effusion Admission/Observation Consideration of admission/observation: Escalation of care including admission/observation considered infection suspected at 1155am - lactic acid, cultures, IV levofloxacin ordered given allergies and multifocal pneumonia has elevated WBC count will admit for further workup Consult Healthcare Provider Management of the patient was discussed with: Hospitalist (will admit) Lab Data MDM Lab Attestation statement: I reviewed the patient's lab results. 05/22/24 09:27 05/22/24 09:27 Labs: Lab Results 05/22/24 05/22/24 05/22/24 Range/Units 09:27 09:30 11:30 WBC 22.2 H (4.8-10.8) X10*3/uL RBC 3.23 L (4.20-5.50) X10*6/uL Hgb 10.8 L (12.0-16.0) g/dl Hct 30.1 L (37.0-47.0) % MCV 93.2 (80.0-98.0) fL MCH 33.4 H (27.0-33.0) pg MCHC 35.9 H (31.0-35.0) g/dl RDW 14.1 (11.0-16.0) % Plt Count 586 H (160-400) X10*3/uL MPV 9.1 L (9.4-12.3) fL Immature Gran % (Auto) 0.5 H (0.0-0.4) % Neut % (Auto) 78.5 H (45-73) % Lymph % (Auto) 8.2 L (20-40) % [place] % (Auto) 6.6 (2-11) % Eos % (Auto) 5.5 H (0-4) % Baso % (Auto) 0.7 (0-2) % Lymph # (Auto) 1.8 (1.2-4.9) X10*3/uL [place] # (Auto) 1.5 H (0.1-1.2) X10*3/uL Eos # (Auto) 1.2 H (0.0-0.4) X10*3/uL Baso # (Auto) 0.2 (0.0-0.2) X10*3/uL Abs Immat Gran (auto) 0.10 H (0.00-0.03) X10*3/uL Absolute Neuts (auto) 17.5 H (2.0-8.3) x10*3/uL Absolute Nucleated RBC 0.000 (0.0-0.012) X10*3/uL Nucleated RBC % (auto) 0.0 (0.0-0.2) /100WBC D-Dimer High Sensitivty 1779 NG/ML Hold Blue Top SEE NOTE Sodium 134 L (135-145) mmol/L Potassium 4.0 (3.3-5.1) mmol/L Chloride 103 (96-108) mmol/L Carbon Dioxide 16 L (22-29) mmol/L Anion Gap 19 (12-20) BUN 67 H (9-16) mg/dL Creatinine 4.68 H* (0.5-1.4) mg/dL Estim Creat Clear Calc 15.2 Estimated GFR 10 Random Glucose 195 H (60-115) mg/dL Lactic Acid (0.5-2.0) mmol/L Calcium 8.2 L D (8.4-10.2) mg/dL Magnesium 1.9 (1.6-2.6) mg/dL Total Bilirubin 0.8 (0.0-1.0) mg/dL Direct Bilirubin 0.3 (0.0-0.5) mg/dL AST 27 (5-31) U/L ALT 20 (0-31) U/L Alkaline Phosphatase 125 H (39-117) U/L Troponin I High Sens 48.6 H D 40.9 H (<3.5-17.0) ng/L B-Natriuretic Peptide 1546 H (<100) pg/mL Total Protein 7.5 (6.5-8.0) g/dL Albumin 4.1 (3.5-5.0) g/dL Influenza Type A (PCR) NEGATIVE (Negative) Influenza Type B (PCR) NEGATIVE (Negative) RSV RNA Qual (PCR) NEGATIVE (Negative) SARS-CoV-2 RNA (RT-PCR) NEGATIVE (Negative) 05/22/24 Range/Units 13:12 WBC (4.8-10.8) X10*3/uL RBC (4.20-5.50) X10*6/uL Hgb (12.0-16.0) g/dl Hct (37.0-47.0) % MCV (80.0-98.0) fL MCH (27.0-33.0) pg MCHC (31.0-35.0) g/dl RDW (11.0-16.0) % Plt Count (160-400) X10*3/uL MPV (9.4-12.3) fL Immature Gran % (Auto) (0.0-0.4) % Neut % (Auto) (45-73) % Lymph % (Auto) (20-40) % [place] % (Auto) (2-11) % Eos % (Auto) (0-4) % Baso % (Auto) (0-2) % Lymph # (Auto) (1.2-4.9) X10*3/uL [place] # (Auto) (0.1-1.2) X10*3/uL Eos # (Auto) (0.0-0.4) X10*3/uL Baso # (Auto) (0.0-0.2) X10*3/uL Abs Immat Gran (auto) (0.00-0.03) X10*3/uL Absolute Neuts (auto) (2.0-8.3) x10*3/uL Absolute Nucleated RBC (0.0-0.012) X10*3/uL Nucleated RBC % (auto) (0.0-0.2) /100WBC D-Dimer High Sensitivty NG/ML Hold Blue Top Sodium (135-145) mmol/L Potassium (3.3-5.1) mmol/L Chloride (96-108) mmol/L Carbon Dioxide (22-29) mmol/L Anion Gap (12-20) BUN (9-16) mg/dL Creatinine (0.5-1.4) mg/dL Estim Creat Clear Calc Estimated GFR Random Glucose (60-115) mg/dL Lactic Acid 0.7 (0.5-2.0) mmol/L Calcium (8.4-10.2) mg/dL Magnesium (1.6-2.6) mg/dL Total Bilirubin (0.0-1.0) mg/dL Direct Bilirubin (0.0-0.5) mg/dL AST (5-31) U/L ALT (0-31) U/L Alkaline Phosphatase (39-117) U/L Troponin I High Sens (<3.5-17.0) ng/L B-Natriuretic Peptide (<100) pg/mL Total Protein (6.5-8.0) g/dL Albumin (3.5-5.0) g/dL Influenza Type A (PCR) (Negative) Influenza Type B (PCR) (Negative) RSV RNA Qual (PCR) (Negative) SARS-CoV-2 RNA (RT-PCR) (Negative) Independent Interpretation I performed an independent interpretation of an: EKG, Plain X-Ray (no overt edema) and CT Scan (no PE, multifocal pneumonia) Interpretation: Rate: 95 Rhythm: NSR [place]: normal Normal P waves. Normal HECTOR. Normal QRS complex. ST T wave : no [place], inverted t waves I and aVL, V4-V6, LVH qTC: 482 prior studies: no sig change The study has been interpreted contemporaneously by me. . Radiology Impression Discussion of test interpretation with radiology: I have reviewed the radiologist's reading. Independent Historian Clinical information obtained from an independent historian. History obtained from or confirmed by: EMS External Record Review External record reviewed: Inpatient record and Outpatient record Procedures Procedure Narrative Procedure Narrative: limited bedside ECHO apical subxiphoid parasternal no effusion noted Discharge Plan Discharge Clinical Impression: Multifocal pneumonia, Acute dyspnea Elevated WBC count Qualifiers: Leukocytosis type: unspecified Qualified Code(s): D72.829 - Elevated white blood cell count, unspecified Patient Disposition: Admitted As Inpatient Print Language: Mohawk
[2024-05-22 09:35] LABS: MANUAL DIFF FLAG NO
[2024-05-22 09:40] LABS: Basophils Absolute Auto 0.2 X10*3/uL (0.0-0.2); Basophils Percent Auto 0.7 % (0-2); Eosinophils Absolute Auto 1.2 X10*3/uL (0.0-0.4); Eosinophils Percent Auto 5.5 % (0-4); Hematocrit 30.1 % (37.0-47.0); Hemoglobin 10.8 g/dl (12.0-16.0); Imm Gran Pct Auto 0.5 % (0.0-0.4); Lymphocytes Absolute Auto 1.8 X10*3/uL (1.2-4.9); Lymphocytes Percent Auto 8.2 % (20-40); Mean Corpuscular HGB Conc 35.9 g/dl (31.0-35.0); Mean Corpuscular Hemoglobin 33.4 pg (27.0-33.0); Mean Corpuscular Volume 93.2 fL (80.0-98.0); Mean Platelet Volume 9.1 fL (9.4-12.3); Monocytes Absolute Auto 1.5 X10*3/uL (0.1-1.2); Monocytes Percent Auto 6.6 % (2-11); Neutrophils Absolute Auto 17.5 x10*3/uL (2.0-8.3); Neutrophils Percent Auto 78.5 % (45-73); Platelet Count 586 X10*3/uL (160-400); Red Blood Count 3.23 X10*6/uL (4.20-5.50); Red Cell Distribution Width 14.1 % (11.0-16.0); White Blood Count 22.2 X10*3/uL (4.8-10.8)
--- NOTE | 2024-05-22 09:42 | PC.NURSE ---
biba from home c/o VAZQUEZ x thursday - hx bronchitis - inhalers at home w/o relief. pt reporting orthopnea. denies chest pain/palpitations. dialysis pt - MWF - 3L restriction - noncompliant w/ I&O measurement at home. denies n/v/d/fever/chills. tachypneic upon EMS arrival - 97% on RA - pt placed on 2L via NC w/ good effect. upon ED arrival - pt a&ox4. tachycardic. hypertensive. tachypneic. sob/wob noted. pt positioned upright to promote patent airway. 18gIV placed in the right AC - labs obtained/sent to lab. fistula in LUE - +thrill/bruit. precautions sign in place. chest xray/ekg completed. plan of care ongoing. call padron placed within reach.
--- OUTSIDE RECORDS SUMMARY | 2024-05-22 09:43 | XMS_ITS | Encounter Summary ---
Author Organization [facility] Address [address] [address] Phone Care Team Providers Care Copy Holder Name Role Phone Mauricio Nolasco NP Primary Care Provider [phone] Reason for Visit * Reason Comments Med Refill Encounter Details Date Type Department Care Team (Late st Contact Info) Description 05/13/2024 Refill [facility] [address] [phone] Aneesh Barrera MD [address] [phone] Social History Tobacco Use Types Packs/Day Years Used Date Smoking Tobacco: Every Day Cigarettes 1 15 Smokeless Tobacco: Never Alcohol Use Standard Drinks/Week Comments Not Currently 0 (1 standard drink = 0.6 oz pur e alcohol) Comments Unknown Sex and Gender Information Value Date Recorded Sex Assigned at Not on file Legal Sex Female 4:54 PM EST Gender Identity Not on file Sexual Orientation Not on file documented as of this encounter Plan of Treatment Not on file documented as of this encounter Visit Diagnoses Not on filedocumented in this encounter Care Teams Copy Holder Relationship Specialty Start Date End Date Mauricio Nolasco NP [address] [place] [address] PCP - General 04/16/20 documented as of this encounter
--- OUTSIDE RECORDS SUMMARY | 2024-05-22 09:43 | XMS_ITS | Encounter Summary ---
Author Organization [facility] Address [address] [place] [address] Phone Care Team Providers Care Delivery Manager Name Role Phone Mauricio Nolasco NP Primary Care Provider [phone] Encounter Details Date Type Department Care Team (Late st Contact Info) Description 06/12/2021 Documentation Only [facility] [address] [facility] [place] [address] [place] [phone] Darrion Bertrand MD [address] [place] [address], [address] [place] [address] Social History Tobacco Use Types Packs/Day Years [...] on file Sexual Orientation Not on file COVID-19 Exposure Response Date Recorded In the last month, have you been in contact with someone who was confirmed or suspected to have Coronavirus / COVID-19? No / Unsure 06/11/2021 9:09 PM EST documented as of this encounter Plan of Treatment Not on file documented as of this encounter Visit Diagnoses Not on filedocumented in this encounter Care Teams Delivery Manager Relationship Specialty Start Date End Date Mauricio Nolasco NP [facility] [place] [address] PCP - General 04/16/20 documented as of this encounter
--- OUTSIDE RECORDS SUMMARY | 2024-05-22 09:43 | XMS_ITS | Clinical Summary ---
Author Organization [facility] Address [address] [place] [address] Care Team Providers Care Coiled Tubing Operator Name Role Phone Unavailable Primary Care Provider Unavailabl e Surgical History Surgery Date Site/Laterality Comments OTHER SURGICAL HISTORY PROCEDURE: DENIES PREVIOUS SURGERY Medical History Medical History Date Comments Other and unspecified ovarian cyst 03/15/04 DX:Other and unspecified ovarian cyst Polycystic ovaries 06/30/2005 DX:Polycystic ovaries Morbid obesity ([facility]) 11/05/2006 DX:Morb id obesity ([facility]) Bipolar disorder ([facility]) 01/15/2009 DX:Bi polar disorder ([facility]) Unspecified epilepsy without mention of intractable epilepsy 11/06/98 DX:Unspecified epilepsy with out mention of intractable epilepsy; COMMENT: as child Essential hypertension, benign 11/12/04 D X:Essential hypertension, benign Abnormal glucose 06/03/2010 DX:Abnormal glu cose Type II or unspecified type diabetes mellitus without mention of complication, not stated as uncontrolled 06/19/2010 DX:Type II or unspecified ty pe diabetes mellitus without mention of complication, not stated as uncontrolled Proteinuria 06/13/2011 DX:Proteinuria Family History Medical History Relation Name Comments Diabetes Father glaucoma Lung cancer Maternal Grandfather smoker Lung cancer Maternal Grandmother second hand smoke Osteoporosis Mother diabetes, eleva tess cholesterol Hypertension Sister 1 Hidalgo syndrome (identical twin) Other: retardation Sister 2 Hidalgo syn drome (identical twin) Relation Name Status Comments Father Alive diabetes type 2 Maternal Grandfather Maternal Grandmother Mother Alive osteoporosis ag e 54 Sister 1 Sister 2 Sister 3 Social History Tobacco Use Types Packs/Day Years Used Date Smoking Tobacco: Every Day Cigarettes Smokeless Tobacco: Never Alcohol Use Standard Drinks/Week Comments Yes 0 (1 standard drink = 0.6 oz pur e alcohol) Comments Unknown Sex and Gender Information Value Date Recorded Sex Assigned at Female 04/15/2024 10:28 AM EST Legal Sex Female 9:11 AM EST Gender Identity Female 04/15/2024 10:28 AM EST Sexual Orientation Choose not to disclose 2024 10:28 AM EST Obstetrics History Last Filed Vital Signs Vital Sign Reading Time Taken Comments Blood Pressure 168/93 10/07/2023 1:13 PM EDT Pulse 94 10/07/2023 1:13 PM EDT Temperature - - Respiratory Rate - - Oxygen Saturation - - Inhaled Oxygen Concentration - - Weight 77.5 kg (170 lb 12.8 oz) 10/07/2023 1:13 PM EDT Height 167.6 cm (5' 6 ) 10/07/2023 1:13 PM EDT Body Mass Index 27.57 10/07/2023 1:13 PM EDT Plan of Treatment Health Maintenance Due Date Last Done Comments Breast Cancer Screening 1982 IPV Vaccines (2 of 3 - 4-dose series) 04/03/1986 03/06/1986 Diabetes: Annual Foot Exam 1992 Diabetes: Annual Retina Eye Exam 1992 Pneumococcal Vaccine: Pediatrics (0 to 5 Years) and At-Risk Patients (6 to 64 Years) (1 of 2 - PCV) 2001 Cervical Cancer Screening: Pap Smear 2003 HPV Vaccines (2 - 3-dose series) 05/14/2007 04/16/2007 DTaP,Tdap,and Td Vaccines (4 - Td or Tdap) 06/11/2021 06/12/2011, 06/30/2005, 07/06/1995 Cholesterol Screening (Lipid Panel) 03/09/2022 Depression Screening 03/09/2022 HIV Screening 03/09/2022 Hepatitis C Screening 03/09/2022 Social Influencers of Health Screening 03/09/2022 Diabetes: Blood Sugar Control Test (HGBA1C) 2022 Hypertension/CHF/CAD Annual BMP Blood Test 2022 COVID-19 Vaccine ( season) 2023 Influenza Vaccine (#1) 2023 2, 01/28/2010, 01/15/2009, Additional history exists MMR Vaccines Completed 07/05/1993 Hepatitis B Vaccines Completed 06/24/1997, 12/08/1996, 04/13/1996 HIB Vaccines Aged Out No longer eligi ble based on patient's age to complete this topic Hepatitis A Vaccines Aged Out No long er eligible based on patient's age to complete this topic Meningococcal ACWY Vaccine Aged Out N o longer eligible based on patient's age to complete this topic Meningococcal B Vacine Aged Out No lo nger eligible based on patient's age to complete this topic RSV Immunization Patients Under 20 months Aged Out No longer eligible based on patient's age to complete this topic Varicella Vaccines Aged Out No longer eligible based on patient's age to complete this topic
--- OUTSIDE RECORDS SUMMARY | 2024-05-22 09:43 | XMS_ITS | Encounter Summary ---
Author Organization [facility], Address [address] [place] [address] Phone Care Team Providers Care Mechanical Design Engineer Products Name Role Phone Mauricio Nolasco NP Primary Care Provider [phone] Encounter Details Date Type Department Care Team (Late st Contact Info) Description 06/09/2023 Documentation Only [facility], [address] [place] [address] [place], [place] [address] [place] [address] Social History Tobacco Use Types Packs/Day Years [...] on filedocumented in this encounter Care Teams Mechanical Design Engineer Products Relationship Specialty Start Date End Date Mauricio Nolasco NP [address] [place] [address] PCP - General 04/16/20 documented as of this encounter
--- OUTSIDE RECORDS SUMMARY | 2024-05-22 09:43 | XMS_ITS | Clinical Summary ---
Author Organization [facility], Address [address] [place] [address] [place] [address] Phone Care Team Providers Care Assistant Printer Floor Covering Name Role Phone Mauricio Nolasco NP Primary Care Provider [phone] Allergies Active Allergy Reactions Criticality Noted Date Comments Amoxicillin Rash Low 11/26/2023 Cefaclor Rash Low 10/01/2021 Other reaction(s): rash Cephalosporins Rash Low 10/01/2021 Cephradine Rash Low 10/01/2021 Other reaction(s): rash Gabapentin Rash Low 10/18/2020 Rls Cephalexin Rash Low 11/26/2023 Penicillins Rash High 10/18/2020 Medications Dulaglutide 0.75 MG/0.5ML solution pen-injector Inject under the skin Active sacubitril-jelani sartan (Entresto) 24-26 MG per tablet Take 1 tablet by mouth in the morning and 1 tablet in the evening. Active carvedilol (Coreg) 25 MG tablet Take 2 tablets (50 mg total) by mouth in the morning and 2 tablets (50 mg total) in the evening. Take with meals. 360 tablet 3 3 Active cloNIDine (Catapres) 0.2 MG tablet Take 1 tablet (0.2 mg total) by mouth in the morning and 1 tablet (0.2 mg total) in the evening. 180 tablet 3 3 Active NIFEdipine XL (PROCARDIA XL) 90 MG 24 hr tablet Take 1 tablet (90 mg total) by mouth in the morning and 1 tablet (90 mg total) in the evening. Do not crush, chew, or split.. 180 tablet 3 4 Active albuterol HFA (PROVENTIL HFA;VENTOLIN HFA) 108 (90 Base) MCG/ACT inhaler Inhale 2 puffs every 6 (six) hours if needed for wheezing Active famotidine (PEPCID) 20 MG tablet Take 20 mg by mouth 1 (one) time each day Active spironolactone (ALDACTONE) 25 MG tablet 4 Active prochlorperazi ne (COMPAZINE) 5 MG tablet TAKE 1 TABLET(5 MG) BY MOUTH EVERY 6 HOURS NEEDED FOR NAUSEA OR VOMITING 30 tablet 2 5 Active prochlorperazi ne (COMPAZINE) 5 MG tablet Take 1 tablet (5 mg total) by mouth every 6 (six) hours if needed for nausea or vomiting 30 tablet 3 5 025 Active prochlorperazi ne (COMPAZINE) 5 MG tablet Take 1 tablet (5 mg total) by mouth every 6 (six) hours if needed for nausea or vomiting 30 tablet 2 4 025 Discontinued Active Problems Problem Noted Date Diagnosed Date Myocardial infarction 11/26/2023 Blindness in one eye 11/26/2023 Shortness of breath 11/26/2023 Depressed mood 11/26/2023 Lupus erythematosus 11/26/2023 Anemia 11/26/2023 Cardiomyopathy 12/29/2022 12/29/2022 Congestive heart disease, not otherwise specifie d 10/24/2022 10/24/2022 Stage 3 chronic kidney disease, not otherwise sp ecified 07/23/2022 Acute nontraumatic kidney injury 07/23/2022 Anxiety disorder 10/01/2021 Bipolar disorder 10/01/2021 Chronic hypertension complic ating AND/OR reason for care during 10/01/2021 Connective tissue disease overlap syndrome 10/01 Diabetes mellitus 10/01/2021 Hyperlipidemia 10/01/2021 Morbid obesity 10/01/2021 Polycystic ovary syndrome 10/01/2021 Severe pre-eclampsia 10/01/2021 Sj??gren's syndrome 10/01/2021 Tobacco use and exposure - finding 10/01/2021 Hypertensive disorder 10/18/2020 Chronic kidney disease, stage 2 (mild) Hypertension 10/18/2020 Type 2 diabetes mellitus wit h diabetic chronic kidney disease 10/18/2020 Proteinuria 06/13/2011 12/29/2022 Fibromyalgia 06/12/2011 12/29/2022 Gastroesophageal reflux disease 05/24/2010 12/29/2022 Overview (12/29/2022): With dysphagia; seen by ENT Benign essential hypertension 11/12/2004 Epilepsy 11/06/1998 12/29/2022 Overview (12/29/2022): single seizure after taking prozac as a child IMO update Encounters Date Type Department Care Team Description 05/18/2024 Treatment [facility] [address] [address] Aneesh Barrera MD 05/16/2024 Treatment [facility] [address] [address] Aneesh Barrera MD 05/13/2024 Refill [facility] [address] [address] Aneesh Levin MD 05/04/2024 Treatment [facility] [address] [address] Aneesh Levin MD 04/20/2024 Treatment [facility] [address] [address] Aneesh Barrera MD 04/13/2024 Treatment [facility] [address] [address] Aneesh Barrera MD 03/29/2024 Treatment [facility] [address] [address] Aneesh Barrera MD 03/23/2024 Treatment [facility] [address] [address] Aneesh Barrera MD 03/16/2024 Treatment [facility] [address] [address] Aneesh Barrera MD 02/24/2024 Treatment [facility] [address] [address] Aneesh Barrera MD from Last 3 Months Immunizations Name Administration Dates Next Due Pneumococcal Polysaccharide 10/18/2012 Td 11/05/2018 Family History Medical History Relation Comments Diabetes Brother Hypertension Brother Dementia Father Diabetes Father Hypertension Father Autoimmune disease Maternal Grandmother Diabetes Mother Hypertension Mother Relation Status Comments Brother Father Unknown Maternal Grandmother Mother Unknown Social History Tobacco Use Types Packs/Day Years Used Date Smoking Tobacco: Every Day Cigarettes 1 15 Smokeless Tobacco: Never Tobacco Cessation:Ready to Q uit: Not Asked; Counseling Given: Not Answered Alcohol Use Standard Drinks/Week Comments Not Currently 0 (1 standard drink = 0.6 oz pur e alcohol) Comments Unknown Sex and Gender Information Value Date Recorded Sex Assigned at Not on file Legal Sex Female 4:54 PM EST Gender Identity Not on file Sexual Orientation Not on file Last Filed Vital Signs Vital Sign Reading Time Taken Comments Blood Pressure 224/128 02/11/2024 10:33 AM EST Pulse 87 02/11/2024 10:33 AM EST Temperature 36.6 ??C (97.8 ??F) 01/28/2024 7:35 AM ED T Respiratory Rate 18 01/28/2024 7:35 AM EDT Oxygen Saturation 100% 02/11/2024 10:33 AM EST Inhaled Oxygen Concentration - - Weight 68 kg (150 lb) 02/11/2024 10:33 AM EST Height 165.1 cm (5' 5 ) 02/11/2024 10:33 AM EST Body Mass Index 24.96 02/11/2024 10:33 AM EST Plan of Treatment Health Maintenance Due Date Last Done Comments Hepatitis B Vaccine (1 of 1 - Risk Dialysis 4-dose series) 06/24/1998 06/24/1997, 12/08/1996, 04/13/1996 Pneumococcal Vaccine: Pediat rics (0 to 5 Years) and At-Risk Patients (6 to 64 Years) (3 of 3 - PCV) 12/02/2018 12/02/2017, 10/18/2012 Diabetes: Ophthalmology Exam 10/18/2020 Diabetes: Pedal Pulse Checked 10/18/2020 Diabetes: Sensory Foot Exam 10/18/2020 Diabetes: Visual Foot Exam 10/18/2020 Influenza Vaccine (#1) 2023 05/22/2022 Diabetes: Hemoglobin A1C 07/12/2024 04/13/2024, 03/0 12/2021 Procedures Procedure Name Priority Date/Time Associated Diagnosis Comments FERRITIN Routine 05/13/2024 3:00 AM EST TRANSFERRIN SATURATION Routine 3:00 AM EST PROTEIN, TOTAL, SERUM Routine 05/13/2024 3:00 AM EST ELECTROLYTE PANEL Routine 05/13/2024 3:0 0 AM EST MAGNESIUM Routine 05/13/2024 3:00 AM EST LIH (HC) Routine 05/13/2024 3:00 AM EST LACTATE DEHYDROGENASE Routine 05/13/2024 3:00 AM EST GLUCOSE, RANDOM Routine 05/13/2024 3:00 AM EST CREATININE, SERUM Routine 05/13/2024 3:0 0 AM EST BILIRUBIN, TOTAL Routine 05/13/2024 3:00 AM EST AST Routine 05/13/2024 3:00 AM EST ALT Routine 05/13/2024 3:00 AM EST ALKALINE PHOSPHATASE Routine 05/13/2024 3:00 AM EST CALCIUM PHOSPHORUS PRODUCT, ADJUSTED (HC) Routine 05/13/2024 3:00 AM EST CBC AND DIFFERENTIAL Routine 05/13/2024 3:00 AM EST KT/V NATURAL LOG, URR (HC) Routine 05/13/2024 3:00 AM EST HEMOGLOBIN Routine 05/02/2024 3:00 AM EST HEMOGLOBIN Routine 04/29/2024 3:00 AM EST ALUMINUM LEVEL Routine 04/13/2024 3:00 AM EST HEMOGLOBIN A1C Routine 04/13/2024 3:00 AM EST HEPATITIS C ABS W/REFLEX RNA DETECTR Routine 04/13/2024 3:00 AM EST CONFIRMATION TEST HCV Routine 04/13/2024 3:00 AM EST HEPATITIS B SURFACE ANTIGEN W/REFL CONFIRM Routine 04/13/2024 3:00 AM EST PROTEIN, TOTAL, SERUM Routine 04/13/2024 3:00 AM EST URIC ACID Routine 04/13/2024 3:00 AM EST MAGNESIUM Routine 04/13/2024 3:00 AM EST TRANSFERRIN SATURATION Routine 3:00 AM EST ELECTROLYTE PANEL Routine 04/13/2024 3:0 0 AM EST LIH (HC) Routine 04/13/2024 3:00 AM EST LIPID PANEL Routine 04/13/2024 3:00 AM EST GLUCOSE, RANDOM Routine 04/13/2024 3:00 AM EST LACTATE DEHYDROGENASE Routine 04/13/2024 3:00 AM EST CREATININE, SERUM Routine 04/13/2024 3:0 0 AM EST AST Routine 04/13/2024 3:00 AM EST BILIRUBIN, TOTAL Routine 04/13/2024 3:00 AM EST ALKALINE PHOSPHATASE Routine 04/13/2024 3:00 AM EST ALT Routine 04/13/2024 3:00 AM EST CALCIUM PHOSPHORUS PRODUCT, ADJUSTED (HC) Routine 04/13/2024 3:00 AM EST FERRITIN Routine 04/13/2024 3:00 AM EST PTH, INTACT Routine 04/13/2024 3:00 AM EST HEPATITIS B SURFACE ANTIBODY QUANT Routine 04/13/2024 3:00 AM EST KT/V NATURAL LOG, URR (HC) Routine 04/13/2024 3:00 AM EST CBC AND DIFFERENTIAL Routine 04/13/2024 3:00 AM EST HEMOGLOBIN Routine 03/28/2024 3:00 AM EST HEMOGLOBIN Routine 03/23/2024 3:00 AM EST TRANSFERRIN SATURATION Routine 3:00 AM EST PROTEIN, TOTAL, SERUM Routine 03/09/2024 3:00 AM EST ELECTROLYTE PANEL Routine 03/09/2024 3:0 0 AM EST LIH (HC) Routine 03/09/2024 3:00 AM EST LACTATE DEHYDROGENASE Routine 03/09/2024 3:00 AM EST GLUCOSE, RANDOM Routine 03/09/2024 3:00 AM EST AST Routine 03/09/2024 3:00 AM EST BILIRUBIN, TOTAL Routine 03/09/2024 3:00 AM EST CREATININE, SERUM Routine 03/09/2024 3:0 0 AM EST ALT Routine 03/09/2024 3:00 AM EST ALKALINE PHOSPHATASE Routine 03/09/2024 3:00 AM EST CALCIUM PHOSPHORUS PRODUCT, ADJUSTED (HC) Routine 03/09/2024 3:00 AM EST CBC AND DIFFERENTIAL Routine 03/09/2024 3:00 AM EST KT/V NATURAL LOG, URR (HC) Routine 03/09/2024 3:00 AM EST FERRITIN Routine 03/09/2024 3:00 AM EST Chronic kidney disease, stage 2 (mild) Type 2 diabetes mellitus with diabetic chronic kidney disease (HCC) Persistent proteinuria MAGNESIUM Routine 03/09/2024 3:00 AM EST Chronic kidney disease, stage 2 (mild) Type 2 diabetes mellitus with diabetic chronic kidney disease (HCC) Persistent proteinuria LIH (HC) Routine 02/26/2024 3:00 AM EST KT/V NATURAL LOG, URR (HC) Routine 02/26/2024 3:00 AM EST from Last 3 Months Results * LIH (05/13/2024 3:00 AM EST) Only the most recent of4 resultswithin the time period is included. Lipemia Normal Normal [facility] Icterus Normal Normal [facility] Hemolysis Normal Normal [facility] 05/13/2024 3:00 AM EST 05/14/2024 2:42 PM EST us Aneesh Barrera MD LAB [id number] ICITED RESULTS Final Result Performing Organization Address [facility] de Phone Number [facility] [address] [place] [address] * (ABNORMAL) Kt/V Natural Log, URR (05/13/2024 3:00 AM EST) Only the most recent of4 resultswithin the time period is included. Treatment Time 203 min [facility] Pre-Weight, lb 72.4 kg [facility] Post-Weight, lb 69.8 kg [facility] Ultrafiltration Rate 11 <=13 mL/kg/hr [facility] Comment: Recommend achieving Ultrafiltration Rate (UFR) <=10 mL/kg/hr References: Gio SILVERMAN et al. Kidney Int. 2010; 79(2):250-257 BUN Post Dialysis 16 7 - 25 mg/dL [facility] BUN 56(H) 7 - 25 mg/dL [facility] UREA REDUCTION RATIO (%) 71 >=65 % [facility] Kt/V Natural Log 1.46 >=1.2 [facility] 05/13/2024 3:00 AM EST 05/14/2024 1:52 PM EST us Aneesh Barrera MD LAB [id number] ICITED RESULTS Final Result Performing Organization Address [facility] de Phone Number [facility] [address] [place] [address] * Calcium Phosphorus Product, Adjusted (05/13/2024 3:00 AM EST) Only the most recent of3 resultswithin the time period is included. Albumin 4.1 3.6 - 5.4 g/dL [facility] Calcium 8.6 8.6 - 10.3 mg/dL [facility] Phosphorus, Serum 4.0 2.5 - 5.0 mg/dL [facility] Ca*PO4 34.4 <55.0 mg2/dL2 [facility] Calcium, Adjusted Total 8.6 8.6 - 10.3 mg/dL [facility] CA*PO4 CORRCTD 34.4 <55.0 mg2/dL2 [facility] 05/13/2024 3:00 AM EST 05/14/2024 2:42 PM EST us Aneesh Barrera MD LAB [id number] ICITED RESULTS Final Result Performing Organization Address [facility] Co de Phone Number [facility] [address] [place] [address] * (ABNORMAL) TSAT (05/13/2024 3:00 AM EST) Only the most recent of3 resultswithin the time period is included. [facility] Iron 78 50 - 170 ug/dL [facility] Transferrin 138(L) 250 - 380 mg/dL [facility] TIBC 193(L) 211 - 406 ug/dL [facility] Iron Saturation (TSat) 40 22 - 52 % [facility] 05/13/2024 3:00 AM EST 05/14/2024 2:42 PM EST us Aneesh Barrera MD LAB BLOOD ORDERABLES Final Resul t Performing Organization Address [facility] Co de Phone Number [facility] [address] [place] [address] * (ABNORMAL) CBC and Differential (05/13/2024 3:00 AM EST) Only the most recent of3 resultswithin the time period is included. [facility] DIFFERENTIAL MANUAL, 2 Not Indicated [facility] White Blood Cells 7.9 4.0 - 10.0 K/uL [facility] RBC 3.38(L) 3.93 - 5.22 M/uL [facility] Hgb 11.3 11.2 - 15.7 g/dL [facility] Hemoglobin x 3 33.9 33.6 - 47.1 g/dL [facility] Hematocrit 32.9(L) 34.1 - 44.9 % [facility] MCV 97.3(H) 79.4 - 94.8 fL [facility] MCH 33.4(H) 25.6 - 32.2 pg [facility] MCHC 34.3 32.2 - 35.5 g/dL [facility] Platelets 353 182 - 369 K/uL [facility] RDW 13.5 11.7 - 14.4 % [facility] Neutrophils Relative 55.7 34.0 - 71.1 % [facility] Lymphocytes Relative 25.0 19.3 - 51.7 % [facility] Monocytes 8.8 4.7 - 12.5 % [facility] Eosinophils Relative 8.7(H) 0.7 - 5.8 % [facility] Basophils Relative 0.8 0.1 - 1.2 % [facility] Immature Granulocytes 1.0 0.0 - 1.0 % [facility] 05/13/2024 3:00 AM EST 05/14/2024 3:01 PM EST us Aneesh Barrera MD LAB BLOOD ORDERABLES Final Resul t Performing Organization Address [facility] de Phone Number [facility] [address] [place] [address] * ALT (05/13/2024 3:00 AM EST) Only the most recent of3 resultswithin the time period is included. ALT (SGPT) 14 10 - 49 U/L [facility] 05/13/2024 3:00 AM EST 05/14/2024 2:42 PM EST us Aneesh Barrera MD LAB BLOOD ORDERABLES Final Resul t Performing Organization Address [facility] de Phone Number [facility] [address] [place] [address] * AST (05/13/2024 3:00 AM EST) Only the most recent of3 resultswithin the time period is included. AST (SGOT) 18 <34 U/L [facility] 05/13/2024 3:00 AM EST 05/14/2024 2:42 PM EST us Aneesh Barrera MD LAB BLOOD ORDERABLES Final Resul t Performing Organization Address [facility] de Phone Number [facility] [address] [place] [address] * Protein, total (05/13/2024 3:00 AM EST) Only the most recent of3 resultswithin the time period is included. Total Protein 6.9 6.4 - 8.9 g/dL [facility] 05/13/2024 3:00 AM EST 05/14/2024 2:42 PM EST us Aneesh Barrera MD LAB BLOOD ORDERABLES Final Resul t Performing Organization Address [facility] Co de Phone Number [facility] [address] [place] [address] * (ABNORMAL) Alkaline phosphatase (05/13/2024 3:00 AM EST) Only the most recent of3 resultswithin the time period is included. Alkaline Phosphatase 129(H) 46 - 116 U/L [facility] 05/13/2024 3:00 AM EST 05/14/2024 2:42 PM EST us Aneesh Barrera MD LAB BLOOD ORDERABLES Final Resul t Performing Organization Address [facility] de Phone Number [facility] [address] [place] [address] * Magnesium (05/13/2024 3:00 AM EST) Only the most recent of3 resultswithin the time period is included. Magnesium 2.1 1.9 - 2.7 mg/dL [facility] 05/13/2024 3:00 AM EST 05/14/2024 2:42 PM EST us Aneesh Barrera MD LAB BLOOD ORDERABLES Final Resul t Performing Organization Address [facility] de Phone Number [facility] [address] [place] [address] * (ABNORMAL) Lactate dehydrogenase (05/13/2024 3:00 AM EST) Only the most recent of3 resultswithin the time period is included. LDH 295(H) 120 - 246 U/L [facility] 05/13/2024 3:00 AM EST 05/14/2024 2:42 PM EST us Aneesh Barrera MD LAB BLOOD ORDERABLES Final Resul t Performing Organization Address [facility] Phone Number [facility] [address] [place] [address] * (ABNORMAL) Glucose, random (05/13/2024 3:00 AM EST) Only the most recent of3 resultswithin the time period is included. Glucose 114(H) 74 - 109 mg/dL [facility] 05/13/2024 3:00 AM EST 05/14/2024 2:42 PM EST us Aneesh Barrera MD LAB BLOOD ORDERABLES Final Resul t Performing Organization Address [facility] Phone Number [facility] [address] [place] [address] * (ABNORMAL) Ferritin (05/13/2024 3:00 AM EST) Only the most recent of3 resultswithin the time period is included. Ferritin 1,290(H) 10 - 291 ng/mL [facility] 05/13/2024 3:00 AM EST 05/14/2024 2:42 PM EST us Aneesh Barrera MD LAB BLOOD ORDERABLES Final Resul t Performing Organization Address [facility] Phone Number [facility] [address] [place] [address] * (ABNORMAL) Creatinine, serum (05/13/2024 3:00 AM EST) Only the most recent of3 resultswithin the time period is included. Creatinine 4.97(H) 0.55 - 1.02 mg/dL [facility] 05/13/2024 3:00 AM EST 05/14/2024 2:42 PM EST us Aneesh Barrera MD LAB BLOOD ORDERABLES Final Resul t Performing Organization Address [facility]/ZIP Co de Phone Number [facility] [address] [place] [address] * Bilirubin, total (05/13/2024 3:00 AM EST) Only the most recent of3 resultswithin the time period is included. Total Bilirubin 0.4 0.3 - 1.2 mg/dL [facility] 05/13/2024 3:00 AM EST 05/14/2024 2:42 PM EST us Aneesh Barrera MD LAB BLOOD ORDERABLES Final Resul t Performing Organization Address [facility] de Phone Number [facility] [address] [place] [address] * (ABNORMAL) Electrolyte panel (05/13/2024 3:00 AM EST) Only the most recent of3 resultswithin the time period is included. Sodium 134(L) 136 - 145 mEq/L [facility] Potassium 4.1 3.4 - 5.0 mEq/L [facility] Chloride 105 98 - 107 mEq/L [facility] Bicarbonate (CO2) 19(L) 21 - 31 mEq/L [facility] Anion Gap 10 3 - 14 mEq/L [facility] 05/13/2024 3:00 AM EST 05/14/2024 2:42 PM EST us Aneesh Barrera MD LAB BLOOD ORDERABLES Final Resul t Performing Organization Address [facility] Co de Phone Number [facility] [address] [place] [address] * (ABNORMAL) Hemoglobin (05/02/2024 3:00 AM EST) Only the most recent of4 resultswithin the time period is included. Hgb 11.0(L) 11.2 - 15.7 g/dL [facility] Hemoglobin x 3 33.0(L) 33.6 - 47.1 g/dL [facility] 05/02/2024 3:00 AM EST 05/03/2024 12:26 PM EST us Aneesh Barrera MD LAB BLOOD ORDERABLES Final Resul t [facility] [address] [place] [address] * Confirmation Test HCV (04/13/2024 3:00 AM EST) Hep C Ab Confirmation Not needed [facility] 04/13/2024 3:00 AM EST 04/14/2024 4:08 PM EST us Aneesh Barrera MD LAB BLOOD ORDERABLES Final Resul t Performing Organization Address [facility] Co de Phone Number [facility] [address] [place] [address] * HEPATITIS C ABS W/REFLEX RNA DETECTR (04/13/2024 3:00 AM EST) Hep C Virus Ab Non-Reacti ve Non-Reacti ve [facility] 04/13/2024 3:00 AM EST 04/14/2024 3:50 PM EST us Aneesh Barrera MD LAB [id number] ICITED RESULTS Final Result Performing Organization Address [facility] de Phone Number [facility] [address] [place] [address] * Hepatitis B Surface Ag w/Reflex Confirmation (04/13/2024 3:00 AM EST) Hep B Surface Antigen Negative Negative [facility] 04/13/2024 3:00 AM EST 04/14/2024 3:50 PM EST us Aneesh Barrera MD LAB BLOOD ORDERABLES Final Resul t Performing Organization Address [facility] Co de Phone Number [facility] [address] [place] [address] * Aluminum level (04/13/2024 3:00 AM EST) Aluminum 3 1 - 20 ug/L [facility] 04/13/2024 3:00 AM EST 04/14/2024 3:46 PM EST us Aneesh Barrera MD LAB BLOOD ORDERABLES Final Resul t Performing Organization Address [facility] Phone Number [facility] [address] [place] [phone] * Hepatitis B Surface Antibody (04/13/2024 3:00 AM EST) Hep B Surface Antibody 163 mIU/mL [facility] Comment: Interpretation: <10: No Immunity >=10: Probable Immunity 04/13/2024 3:00 AM EST 04/14/2024 3:50 PM EST us Aneesh Barrera MD LAB BLOOD ORDERABLES Final Resul t Performing Organization Address [facility] Phone Number [facility] [address] [address] * Uric Acid (04/13/2024 3:00 AM EST) Uric Acid 5.0 2.3 - 6.6 mg/dL [facility] 04/13/2024 3:00 AM EST 04/14/2024 3:50 PM EST us Aneesh Barrera MD LAB BLOOD ORDERABLES Final Resul t Performing Organization Address [facility] Phone Number [facility] [address] * PTH, Intact (04/13/2024 3:00 AM EST) PTH, Intact 367 160 - 721 pg/mL [facility] Comment: Suggested (KDIGO) ESRD maintenance range is two to nine times the upper normal limit (80.1 pg/mL) for the laboratory. 04/13/2024 3:00 AM EST 04/14/2024 3:50 PM EST us Aneesh Barrera MD LAB BLOOD ORDERABLES Final Resul t Performing Organization Address [facility] de Phone Number [facility] [address] * Hemoglobin A1c (04/13/2024 3:00 AM EST) Hemoglobin A1C 5.0 <5.7 % [facility] Comment: Methodology: Enzymatic HbA1c (NGSP %) ?Suggested Diagnosis >6.4% ? Diabetic 5.7-6.4% ?Pre-Diabetic <5.7% ? Non-Diabetic Diabetic Glucose Control Evaluation: Therapeutic action suggested at >8.0% ADA recommends a glycemic goal of <7.0% 04/13/2024 3:00 AM EST 04/14/2024 4:08 PM EST us Aneesh Barrera MD LAB BLOOD ORDERABLES Final Resul t [facility] [address] [place] [address] * (ABNORMAL) Lipid panel (04/13/2024 3:00 AM EST) Cholesterol 123 <200 mg/dL [facility] Comment: Optimal: ?<200 Borderline: ? 200-239 Higher Risk: ?>239 Triglycerides 62 <150 mg/dL [facility] Comment: Optimal: ?<150 Borderline High: ??150-199 High: ? 200-499 Very High: ?>499 HDL 48(A) >59 mg/dL [facility] Comment: Desirable: ?>59 Higher Risk: ?<40 LDL-Calc 63 <100 mg/dL [facility] Comment: Optimal: ?<100 Above Optimal: ?100-129 Borderline High: ??130-159 High: ? 160-189 Very High: ?>189 VLDL Cholesterol Justin 12 <30 mg/dL [facility] Comment: Optimal: ?<30 Borderline High: ??30-39 High: ? 40-99 Very High: ?>99 Chol/HDL Ratio 2.6 <3.3 [facility] Comment: Optimal: ?<3.3 Higher Risk: ?>6.2 04/13/2024 3:00 AM EST 04/14/2024 3:50 PM EST us Aneesh Barrera MD LAB BLOOD ORDERABLES Final Resul t [facility] [address] [place] [address] from Last 3 Months Insurance [place] Care Teams Assistant Printer Floor Covering Relationship Specialty Start Date End Date Mauricio Nolasco NP [address] [place] [address] PCP - General 04/16/20
--- OUTSIDE RECORDS SUMMARY | 2024-05-22 09:43 | XMS_ITS | Encounter Summary ---
Author Organization [facility] Address [address] [address] Phone Care Team Providers Care Preconstruction Manager Name Role Phone BreeMauricio grimes QUANG Primary Care Provider [phone] Encounter Details Date Type Department Care Team (Late st Contact Info) Description 05/18/2024 Treatment [facility]. [address] [address] Yudy Jj MD [address] [address] Social History Tobacco Use Types [...] on file documented as of this encounter Miscellaneous Notes * Dialysis Note - Yudy Jj MD - 05/18/2024 12:00 AM EST Patient: Angela Streeter : 1980 Note Type: Dialysis Rounds-Basic Service Date: 05/18/2024 This patient was personally seen for a basic visit as part of routine monthly dialysis care for end stage renal disease. Attending Lithoduplicator Operator: YUDY JJ MD Dialysis Location: [facility] Schedule: Shift: 1 HOME MEDICATIONS Current [facility] Outpatient Medications albuterol (PROVENTIL HFA;VENTOLIN HFA) inhaler Inhale 2 puffs every 6 (six) hours if needed for wheezing Start Date: carvedilol (Coreg) 25 MG tablet Take 2 tablets (50 mg total) by mouth in the morning and 2 tablets (50 mg total) in the evening. Take with meals. Start Date: 12/31/2022 cloNIDine (Catapres) 0.2 MG tablet Take 1 tablet (0.2 mg total) by mouth in the morning and 1 tablet (0.2 mg total) in the evening. Start Date: 12/31/2022 DULAGLUTIDE 0.75 MG/0.5ML SC SOPN Inject under the skin Start Date: famotidine (PEPCID) tablet Take 20 mg by mouth 1 (one) time each day Start Date: NIFEdipine XL (PROCARDIA XL) 90 MG 24 hr tablet Take 1 tablet (90 mg total) by mouth in the morning and 1 tablet (90 mg total) in the evening. Do not crush, chew, or split.. Start Date: 07/06/2023 prochlorperazine (COMPAZINE) 5 MG tablet Take 1 tablet (5 mg total) by mouth every 6 (six) hours if needed for nausea or vomiting Start Date: 05/13/2024 prochlorperazine (COMPAZINE) 5 MG tablet TAKE 1 TABLET(5 MG) BY MOUTH EVERY 6 HOURS NEEDED FOR NAUSEA OR VOMITING Start Date: 05/16/2024 sacubitril-valsartan (ENTRESTO) tablet 24-26 mg Take 1 tablet by mouth in the morning and 1 tablet in the evening. Start Date: spironolactone (ALDACTONE) tablet Start Date: 02/10/2024 Current [facility] Allergies Allergen: AMOXICILLIN Reaction: Rash Severity: Low Allergen: CEFACLOR Reaction: Rash Severity: Low Allergen: CEPHALOSPORINS Reaction: Rash Severity: Low Allergen: CEPHRADINE Reaction: Rash Severity: Low Allergen: GABAPENTIN Reaction: Rash Severity: Low Allergen: KEFLEX [CEPHALEXIN] Reaction: Rash Severity: Low Allergen: PENICILLINS Reaction: Rash Severity: High BP AND FLUID ASSESSMENT COMMENTS: Complains of high bp although bp acceptable Asked to bring home monitor Suspect dietary indiscretion and able dry weight Patient refusing to more uf questioning if her meds are necessary at time aggressive ADEQUACY ASSESSMENT Kt/V, Natural Log 1.46 (05/13/24) 1.40 (04/13/24) 1.46 (03/09/24) UREA REDUCTION RATIO (%) 71 (05/13/24) 69 (04/13/24) 74 (03/09/24) BUN 56 (05/13/24) 42 (04/13/24) 42 (03/09/24) BUN Post Dialysis 16 (05/13/24) 13 (04/13/24) 11 (03/09/24) Creatinine 4.97 (05/13/24) 4.56 (04/13/24) 5.92 (03/09/24) Bicarbonate (CO2) 19 (05/13/24) 21 (04/13/24) 19 (03/09/24) Sodium 134 (05/13/24) 137 (04/13/24) 134 (03/09/24) ANEMIA ASSESSMENT Hgb 11.3 (05/13/24) 11.0 (05/02/24) 11.8 (04/29/24) Iron Saturation (TSat) 40 (05/13/24) 18 (04/13/24) 19 (03/09/24) Ferritin 1,290 (05/13/24) 554 (04/13/24) 858 (03/09/24) Iron 78 (05/13/24) 36 (04/13/24) 45 (03/09/24) TIBC 193 (05/13/24) 203 (04/13/24) 238 (03/09/24) MCV 97.3 (05/13/24) 101.1 (04/13/24) 98.0 (03/09/24) Platelets 353 (05/13/24) 355 (04/13/24) 360 (03/09/24) BMM ASSESSMENT Calcium, Adjusted Total 8.6 05/13/24 8.4 04/13/24 9.2 03/09/24 Calcium 8.6 05/13/24 8.4 04/13/24 9.2 03/09/24 Phosphorus, Serum 4.0 05/13/24 4.0 04/13/24 3.6 03/09/24 Ca*PO4 34.4 05/13/24 33.6 04/13/24 33.1 03/09/24 PTH, Intact 367 04/13/24 Magnesium 2.1 05/13/24 2.0 04/13/24 2.4 03/09/24 Alkaline Phosphatase 129 05/13/24 98 04/13/24 86 03/09/24 Aluminum 3 04/13/24 NUTRITION ASSESSMENT Albumin 4.1 05/13/24 4.1 04/13/24 4.8 03/09/24 Potassium 4.1 05/13/24 4.4 04/13/24 4.2 03/09/24 Hemoglobin A1C 5.0 04/13/24 ADDITIONAL LABS White Blood Cells 7.9 (05/13/24) 11.0 (04/13/24) 13.9 (03/09/24) Cholesterol 123 (04/13/24) HDL 48 (04/13/24) LDL-Calc 63 (04/13/24) Triglycerides 62 (04/13/24) Hep B Surface Antibody 163 (04/13/24) REACTIVE (06/17/23) Uric Acid 5.0 (04/13/24) Signed by: YUDY JJ MD on 05/18/2024 at 08:41:04 AM documented in this encounter Plan of Treatment Not on file documented as of this encounter Visit Diagnoses Not on filedocumented in this encounter Care Teams Preconstruction Manager Relationship Specialty Start Date End Date Mauricio Nolasco NP [address] [place] [id number] PCP - General 04/16/20 documented as of this encounter
--- OUTSIDE RECORDS SUMMARY | 2024-05-22 09:43 | XMS_ITS | Encounter Summary ---
Author Organization [facility] Address [address] [address] Phone Care Team Providers Care Steffen House Supervisor Name Role Phone BreeMauricio grimes QUANG Primary Care Provider [phone] Encounter Details Date Type Department Care Team (Late st Contact Info) Description 05/16/2024 Treatment [facility]. [address] [address] Yudy Jj MD [address] [address] Social History Tobacco Use Types [...] Dialysis Note - Yudy Jj MD - 05/16/2024 12:00 AM EST Patient: Angela Streeter : 1980 Note Type: Dialysis Rounds-Comp Service Date: 05/16/2024 This patient was personally seen for a complete visit as part of routine monthly dialysis care for end stage renal disease. Attending Band Cutter: YUDY JJ MD Dialysis Location: [facility] Schedule: Shift: 1 OVERVIEW Patient is stable. HOME MEDICATIONS Medications reviewed. Current [facility] Outpatient Medications albuterol (PROVENTIL HFA;VENTOLIN HFA) inhaler [...] for nausea or vomiting Start Date: 05/13/2024 sacubitril-valsartan (ENTRESTO) tablet 24-26 mg Take 1 [...] Rash Severity: High BP AND FLUID ASSESSMENT Acceptable blood pressure. Fluid status acceptable. COMMENTS: Complains of high bp although bp acceptable Asked to bring home monitor Suspect dietary indiscretion and able dry weight Patient refusing to more uf questioning if her meds are necessary at time aggressive ADEQUACY ASSESSMENT Target met. Prescription compliance acceptable. Continue with greater than 3x more frequent dialysis prescription. Kt/V, Natural Log 1.46 (05/13/24) 1.40 (04/13/24) 1.46 (03/09/24) UREA REDUCTION RATIO (%) 71 (05/13/24) 69 (04/13/24) 74 (03/09/24) BUN 56 (05/13/24) 42 (04/13/24) 42 (03/09/24) BUN Post Dialysis 16 (05/13/24) 13 (04/13/24) 11 (03/09/24) Creatinine 4.97 (05/13/24) 4.56 (04/13/24) 5.92 (03/09/24) Bicarbonate (CO2) 19 (05/13/24) 21 (04/13/24) 19 (03/09/24) Sodium 134 (05/13/24) 137 (04/13/24) 134 (03/09/24) ACCESS ASSESSMENT Vascular access examined. ANEMIA ASSESSMENT KARON adjusted per protocol. Iron adjusted per protocol. Hgb 11.3 (05/13/24) 11.0 (05/02/24) 11.8 (04/29/24) Iron Saturation (TSat) 40 (05/13/24) 18 (04/13/24) 19 (03/09/24) Ferritin 1,290 (05/13/24) 554 (04/13/24) 858 (03/09/24) Iron 78 (05/13/24) 36 (04/13/24) 45 (03/09/24) TIBC 193 (05/13/24) 203 (04/13/24) 238 (03/09/24) MCV 97.3 (05/13/24) 101.1 (04/13/24) 98.0 (03/09/24) Platelets 353 (05/13/24) 355 (04/13/24) 360 (03/09/24) BMM ASSESSMENT Bone and mineral metabolism parameters reviewed. Calcium, Adjusted Total 8.6 05/13/24 8.4 04/13/24 9.2 03/09/24 Calcium 8.6 05/13/24 8.4 04/13/24 9.2 03/09/24 Phosphorus, Serum 4.0 05/13/24 4.0 04/13/24 3.6 03/09/24 Ca*PO4 34.4 05/13/24 33.6 04/13/24 33.1 03/09/24 PTH, Intact 367 04/13/24 Magnesium 2.1 05/13/24 2.0 04/13/24 2.4 03/09/24 Alkaline Phosphatase 129 05/13/24 98 04/13/24 86 03/09/24 Aluminum 3 04/13/24 NUTRITION ASSESSMENT Albumin at goal. Albumin 4.1 05/13/24 4.1 04/13/24 4.8 03/09/24 Potassium 4.1 05/13/24 4.4 04/13/24 4.2 03/09/24 Hemoglobin A1C 5.0 04/13/24 PHYSICAL EXAM Exam not performed. ADDITIONAL LABS White Blood Cells 7.9 (05/13/24) 11.0 (04/13/24) 13.9 (03/09/24) Cholesterol 123 (04/13/24) HDL 48 (04/13/24) LDL-Calc 63 (04/13/24) Triglycerides 62 (04/13/24) Hep B Surface Antibody 163 (04/13/24) REACTIVE (06/17/23) Uric Acid 5.0 (04/13/24) Signed by: YUDY JJ MD on 05/16/2024 at 09:05:23 AM documented in this encounter Plan of Treatment Not on file documented as of this encounter Visit Diagnoses Not on filedocumented in this encounter Care Teams Steffen House Supervisor Relationship Specialty Start Date End Date Mauricio Nolasco NP [address] [place] [id number] PCP - General 04/16/20 documented as of this encounter
--- OUTSIDE RECORDS SUMMARY | 2024-05-22 09:43 | XMS_ITS | Encounter Summary ---
Author Organization [facility]. Address [address] [address] Phone Care Team Providers Care Roll Scale Man Name Role Phone BreeMauricio grimes QUANG Primary Care Provider Encounter Details Date Type Department Care Team (Late st Contact Info) Description 05/04/2024 Treatment [facility]. [address] [address] Yudy Jj MD [address] [address] Social History Tobacco Use Types [...] Dialysis Note - Yudy Jj MD - 05/04/2024 12:00 AM EST Patient: Angela Streeter : 1980 Note Type: Dialysis Rounds-Basic Service Date: 05/04/2024 This patient was personally seen for a basic visit as part of routine monthly dialysis care for end stage renal disease. Attending Day Care Director: YUDY JJ MD Dialysis Location: [facility] Schedule: Shift: 1 HOME MEDICATIONS Current [...] crush, chew, or split.. Start Date: 07/06/2023 sacubitril-valsartan (ENTRESTO) tablet 24-26 mg Take 1 [...] time aggressive ADEQUACY ASSESSMENT Kt/V, Natural Log 1.40 (04/13/24) 1.46 (03/09/24) 1.29 (02/26/24) UREA REDUCTION RATIO (%) 69 (04/13/24) 74 (03/09/24) 71 (02/26/24) BUN 42 (04/13/24) 42 (03/09/24) 34 (02/26/24) BUN Post Dialysis 13 (04/13/24) 11 (03/09/24) 10 (02/26/24) Creatinine 4.56 (04/13/24) 5.92 (03/09/24) 4.27 (02/10/24) Bicarbonate (CO2) 21 (04/13/24) 19 (03/09/24) 20 (02/10/24) Sodium 137 (04/13/24) 134 (03/09/24) 140 (02/10/24) ANEMIA ASSESSMENT Hgb 11.0 (05/02/24) 11.8 (04/29/24) 9.4 (04/13/24) Iron Saturation (TSat) 18 (04/13/24) 19 (03/09/24) 35 (02/10/24) Ferritin 554 (04/13/24) 858 (03/09/24) 672 (02/10/24) Iron 36 (04/13/24) 45 (03/09/24) 65 (02/10/24) TIBC 203 (04/13/24) 238 (03/09/24) 188 (02/10/24) MCV 101.1 (04/13/24) 98.0 (03/09/24) 100.7 (02/10/24) Platelets 355 (04/13/24) 360 (03/09/24) 318 (02/10/24) BMM ASSESSMENT Calcium, Adjusted Total 8.4 04/13/24 9.2 03/09/24 8.7 02/10/24 Calcium 8.4 04/13/24 9.2 03/09/24 8.7 02/10/24 Phosphorus, Serum 4.0 04/13/24 3.6 03/09/24 4.0 02/10/24 Ca*PO4 33.6 04/13/24 33.1 03/09/24 34.8 02/10/24 PTH, Intact 367 04/13/24 Magnesium 2.0 04/13/24 2.4 03/09/24 2.1 02/10/24 Alkaline Phosphatase 98 04/13/24 86 03/09/24 97 02/10/24 Aluminum 3 04/13/24 NUTRITION ASSESSMENT Albumin 4.1 04/13/24 4.8 03/09/24 4.2 02/10/24 Potassium 4.4 04/13/24 4.2 03/09/24 5.0 02/17/24 Hemoglobin A1C 5.0 04/13/24 ADDITIONAL LABS White Blood Cells 11.0 (04/13/24) 13.9 (03/09/24) 9.6 (02/10/24) Cholesterol 123 (04/13/24) HDL 48 (04/13/24) LDL-Calc 63 (04/13/24) Triglycerides 62 (04/13/24) Hep B Surface Antibody 163 (04/13/24) REACTIVE (06/17/23) Uric Acid 5.0 (04/13/24) Signed by: YUDY JJ MD on 05/04/2024 at 08:09:09 AM documented in this encounter Plan of Treatment Not on file documented as of this encounter Visit Diagnoses Not on filedocumented in this encounter Care Teams Roll Scale Man Relationship Specialty Start Date End Date Mauricio Nolasco NP [address] [place] [id number] PCP - General 04/16/20 documented as of this encounter
--- OUTSIDE RECORDS SUMMARY | 2024-05-22 09:43 | XMS_ITS | Encounter Summary ---
Author Organization [facility] Address [address] [place] [address] Phone Care Team Providers Care Systems Test Analyst Name Role Phone Mauricio Nolasco NP Primary Care Provider [phone] Encounter Details Date Type Department Care Team (Late st Contact Info) Description 07/23/2022 Telephone [facility] [address] [place] [address] Sharlene Pineda Social History Tobacco Use Types Packs/Day Years [...] Exposure Response Date Recorded In the last 10 days, have yo u been in contact with someone who was confirmed or suspected to have Coronavirus/COVID-19? No / Unsure 07/23/2022 10:42 AM EDT documented as of this encounter Miscellaneous Notes * Telephone Encounter - Norma Singh - 07/24/2022 8:29 AM EDT See message * Telephone Encounter - Sharlene Pineda - 07/23/2022 4:15 PM EDT [facility] in [place] called to relay that this PT's script for Jardiance 10 mg can be available amanda 25 MG tab so that the PT doesn't have to take 2 1/2 tabs daily. documented in this encounter Plan of Treatment Not on file documented as of this encounter Visit Diagnoses Not on filedocumented in this encounter Care Teams Systems Test Analyst Relationship Specialty Start Date End Date Mauricio Nolasco NP [address] [place] [id number] PCP - General 04/16/20 documented as of this encounter
[2024-05-22 09:59] LABS: Alanine Aminotransferase 20 U/L (0-31); Albumin Level 4.1 g/dL (3.5-5.0); Alkaline Phosphatase 125 U/L (39-117); Anion Gap 19 (12-20); Aspartate Amino Transferase 27 U/L (5-31); Bilirubin Direct 0.3 mg/dL (0.0-0.5); Bilirubin Total 0.8 mg/dL (0.0-1.0); Blood Urea Nitrogen 67 mg/dL (9-16); Calcium 8.2 mg/dL (8.4-10.2); Carbon Dioxide 16 mmol/L (22-29); Chloride 103 mmol/L (96-108); Creatinine Clr Calc Pharmacy 15.2; Estimated Glomerular Filt Rate 10; Glucose Random 195 mg/dL (60-115); Magnesium 1.9 mg/dL (1.6-2.6); Sodium 134 mmol/L (135-145); Total Protein 7.5 g/dL (6.5-8.0)
--- NOTE | 2024-05-22 09:59 | PC.NURSE ---
critical lab value - creatinine of 4.68 - dr. walter notified/aware.
[2024-05-22] MEDS: Albuterol Sulfate 2.5 MG, Albuterol/Iprat 2.5/0.5MG 3 ML 3 ML INHALE (10:00)
[2024-05-22 10:02] LABS: B Type Natriuretic Peptide 1546 pg/mL (<100)
[2024-05-22 10:03] LABS: Troponin-I High Sensitivity 48.6 ng/L (<3.5-17.0)
[2024-05-22 10:20] LABS: Influenza A PCR NEGATIVE (Negative); Influenza B PCR NEGATIVE (Negative); Resp Syncy Virus RNA Qual PCR NEGATIVE (Negative); SARS COV2 PCR INHOUSE NEGATIVE (Negative)
[2024-05-22 10:46] LABS: D Dimer High Sensitivity 1779 NG/ML
[2024-05-22] MEDS: iohexoL 350 MG/ML 100 ML INFUS..BTL IV (11:21)
--- NOTE | 2024-05-22 11:31 | PC.NURSE ---
additional 20gIV placed in the right hand - repeat trop obtained/sent to lab. pt otherwise continues to rest in no apparent distress. vss and up to date. nsr on the social media strategist. pt remains on 2L via NC - no sob/wob noted. respirations even/unlabored. pt pending CT results at this time. plan of care ongoing. call padron placed within reach.
[2024-05-22 11:56] LABS: Troponin-I High Sensitivity 40.9 ng/L (<3.5-17.0)
[2024-05-22] MEDS: levoFLOXacin/D5W 500 MG/100 ML PIGGYBACK 100 MG IV (13:23)
--- NOTE | 2024-05-22 13:23 | PC.NURSE ---
delay in abx administration d/t pt being a difficult stick. 2nd set of cultures obtained/sent to lab. abx administered per provider order.
[2024-05-22 13:33] LABS: Lactic Acid 0.7 mmol/L (0.5-2.0)
--- NOTE | 2024-05-22 15:09 | P.HPHOSP_ITS ---
History of Present Illness Date of Service: 05/22/24 Attending physician on admission: Christy Dupont Chief Complaint: SOB Pt is a 44-year-old female with a PMH significant for ESRD on HD M/W/F, insulin- dependent type 2 diabetes,?cardiomyopathy, HFpEF, NSTEMI, hx of DVT not on thinners, rheumatoid arthritis, lupus, Sjogren's, HLD, and bipolar disorder who presents to the ED with?SOB and difficulty breathing x3 days. Pt reports symptoms began on Thursday when pt noted she ?could not catch my breath? especially with exertion. Reports ?a little? nonproductive cough and some wheezing. Not on home O2. Symptoms worsened last night when she found she could not breathe or or sleep due to SOB. Used home inhaler to no effect. Pt notes 10 days prior was sick with a likely viral illness she got from her son. Had headache, fever, nausea, vomiting, and pronounced cough. Symptoms resolved approximately 5 days ago. Denies chest pain/pressure, palpitations. No abdominal pain. Pt reports improved symptoms after receiving breathing treatment in the ED. In the ED pt was tachycardic up to 103, tachypneic up to 22, satting at 97% on RA Labs were significant for leukocytosis 22.2, D-dimer 1779, sodium 134, creatinine 4.68, initial troponin 48.6 with repeat 40.8, and BNP 1546 (around baseline). Tested negative for flu, RSV. CXR showed mild interstitial prominence without overt edema and no effusion. CTA of chest negative for pulmonary embolism,?but showed multifocal pneumonia as well as mild cardiomegaly and pulmonary arterial hypertension. EKG demonstrated normal sinus rhythm with QTc of [address] depressions in lateral leads. Pt was treated with DuoNebs levofloxacin. Pt will be admitted to the hospital for treatment and further evaluation of multifocal pneumonia with sepsis. Review of Systems 2 Review of Systems: Negative except for that which is stated in the [facility] Medical History Legally blind Vascular dialysis catheter in place Hypertensive retinopathy Macular edema Diabetic retinopathy Hyperglycemia CHF (congestive heart failure) Hypertensive urgency Malignant hypertension CKD (chronic kidney disease) Heart block AV second degree Hypersomnia Cardiomyopathy CKD (chronic kidney disease) stage 2, GFR 60-89 ml/min Nicotine dependence, cigarettes, uncomplicated (~1999) Eclampsia Fatty liver Heart failure, unspecified (~09/2020) History of DVT (deep vein thrombosis) Diabetes mellitus Migraines Sjogren's disease Lupus Rheumatoid arthritis High cholesterol Anxiety PTSD (post-traumatic stress disorder) Bipolar 1 disorder H/O mixed connective tissue disease HTN (hypertension) Family History Father Substance use disorder Mental health disorder Brother Substance use disorder Mental health disorder Brother Substance use disorder Mental health disorder Other Diabetes HTN (hypertension) Surgical History History of H/O eye surgery History of hip surgery Tubal ligation status History of bronchoscopy (~11/2020) History of cholecystectomy (~05/2014) Social History Household Members: Family Household Members Other:: 3 Housing: House Are you a primary critical care paramedic to a significant other at home: No Do you presently have visiting nurse or other home services: Yes (kersey department supervisor) Alcohol intake: never Patient Tobacco Use Status: Current everyday Tobacco user Tobacco use type: Cigarette Cigarette Packs Per Day: 1 Cigarettes Per Day: 5 Years Smoked: 20 Smoked in Last 30 Days: Yes e-Cigarette/Vaping Use: Never Used Patient Interested in Nicotine Replacement: Yes (already have nicotine patch) Second Hand Smoke Exposure: No Use of substances other than those prescribed or required for medical reasons: Yes Substance Use Type: Marijuana Substance Use Frequency: Occasionally Have you been hit, kicked, punched, or otherwise hurt by someone within the past year? If so, by whom?: No Do you feel safe in your current relationship?: Yes Is there a partner from a previous relationship who is making you feel unsafe now?: No Are you made to feel afraid or neglected: No Advance Directives: Yes Advance Directives on File: Yes Advance Directives Date on File: 06/03/21 Do you have a plan to hurt others: No Plan Recently lost weight without trying: No Nutrition Risks: No Nutritional Risk Patient : No : No Poor oral hygiene: No service: No Current occupational status: disabled Cognitive needs: No Hearing needs: No Vision needs: No Meds Allergies Allergy/AdvReac Type Severity Reaction Status Date / Time amoxicillin Allergy Unknown rash Verified 05/22/24 09:15 cefaclor [From Ceclor] Allergy Unknown RASH Verified 05/22/24 09:15 cephalexin Allergy Unknown rash Verified 05/22/24 09:15 Cephalosporins Allergy Unknown RASH ALL Verified 05/22/24 09:15 [CEPHALOSPORINS] OVER cephradine [From VELOSEF] Allergy Unknown RASH Verified 05/22/24 09:15 Penicillins [PENICILLINS] Allergy Unknown RASH Verified 05/22/24 09:15 gabapentin [GABAPENTIN] AdvReac Unknown RESTLESS Verified 05/22/24 09:15 LEGS, Body becomes very uncomfortable Home Medications ?Medication ?Instructions ?Recorded ?Confirmed ?Last Taken ?Type carvedilol 25 mg tablet 50 mg PO BID 03/20/22 05/22/24 09/03/23 History nifedipine 90 mg tablet,extended 1 tab PO BID 04/22/22 05/22/24 09/03/23 History release 24 hr clotrimazole-betamethasone 1 1 appl topical BID PRN Rash 05/22/24 05/22/24 Unknown History %-0.05 % topical cream famotidine 20 mg tablet 20 mg PO DAILY PRN Heartburn 05/22/24 05/22/24 Unknown History prochlorperazine maleate 5 mg 5 mg PO BID 05/22/24 05/22/24 Unknown History tablet sacubitril 24 mg-valsartan 26 mg 1 tab PO DAILY 05/22/24 05/22/24 Unknown History tablet (Entresto) spironolactone 25 mg tablet 25 mg PO DAILY 05/22/24 05/22/24 Unknown History vitamin B complex-vitamin C-folic 1 tab PO DAILY 05/22/24 05/22/24 Unknown History acid 0.8 mg tablet (Jaclyn-Elias) Physical Exam 2 Vital Signs and Narrative: Vital Signs: Last Vital Signs Temp 98.3 F 05/22/24 15:04 Pulse 91 05/22/24 15:04 Resp 18 05/22/24 15:04 BP 152/73 H 05/22/24 11:05 Pulse Ox 97 05/22/24 15:04 O2 Del Method Room Air 05/22/24 15:04 O2 Flow Rate 2 05/22/24 11:05 Oxygen Flow Rate 2 05/22/24 09:13 BMI result Body Mass Index 24.0 General: AOx3, no acute distress Resp: CTA bilaterally CVS: S1, S2, RRR GI: +BS, NT, no distention Skin: Warm, dry Neuro: Cranial nerves II-XII grossly intact bilaterally. Motor grossly intact bilaterally Extremities: No edema Psych: Appropriate affect Results Labs 05/23/24 04:47 05/23/24 04:47 Labs: Laboratory Results - last 24 hr 05/22/24 05/22/24 05/22/24 09:27 09:30 13:12 MCV 93.2 MCH 33.4 H MCHC 35.9 H RDW 14.1 Plt Count 586 H MPV 9.1 L Immature Gran % (Auto) 0.5 H Neut % (Auto) 78.5 H Lymph % (Auto) 8.2 L [place] % (Auto) 6.6 Eos % (Auto) 5.5 H Baso % (Auto) 0.7 Lymph # (Auto) 1.8 [place] # (Auto) 1.5 H Eos # (Auto) 1.2 H Baso # (Auto) 0.2 Abs Immat Gran (auto) 0.10 H Absolute Neuts (auto) 17.5 H Absolute Nucleated RBC 0.000 Nucleated RBC % (auto) 0.0 D-Dimer High Sensitivty 1779 Hold Blue Top SEE NOTE Anion Gap 19 Estim Creat Clear Calc 15.2 Estimated GFR 10 Random Glucose 195 H Lactic Acid 0.7 Calcium 8.2 L D Magnesium 1.9 Total Bilirubin 0.8 Direct Bilirubin 0.3 AST 27 ALT 20 Alkaline Phosphatase 125 H B-Natriuretic Peptide 1546 H Total Protein 7.5 Albumin 4.1 Influenza Type A (PCR) NEGATIVE Influenza Type B (PCR) NEGATIVE RSV RNA Qual (PCR) NEGATIVE SARS-CoV-2 RNA (RT-PCR) NEGATIVE Assessment and Plan (1) Multifocal pneumonia: Status: Acute Plan Pt is a 44-year-old female with a PMH significant for ESRD on HD M/W/F, insulin- dependent type 2 diabetes,?cardiomyopathy, HFpEF, NSTEMI, hx of DVT not on thinners, rheumatoid arthritis, lupus, Sjogren's, HLD, and bipolar disorder who presents to the ED with?SOB and difficulty breathing x3 days. Pt will be admitted to the hospital for treatment and further evaluation of multifocal pneumonia with sepsis. Multifocal pneumonia with sepsis Pt with SOB, VAZQUEZ, and difficulty breathing x3 days CTA of chest showing multifocal pneumonia Had previous illness 10 days ago with THURMAN, N/V, pronounced cough Meets sepsis criteria: Tachycardia, tachypnea, and leukocytosis; lactic acid WNL Will treat with levofloxacin, started 05/22/2023 DuoNebs, guaifenesin Monitor respiratory status Elevated troponins Initial troponin 48.6 with repeat flat at 40.9 Pt asymptomatic Likely type 2 in the setting of increased demand Monitor on telemetry Lupus/RA/Sjogren's Not in acute flare Not on chronic prednisone, last course around 5 months ago No indication for steroids at this time HTN Continue carvedilol, clonidine, nifedipine ESRD on HD M/W/F Nephrolog consult Continue spironolactone Follow BMP HFpEF Not in acute exacerbation Continue Entresto Full Code Attending:?Dr. Dupont DVT Prophylaxis: Heparin Pt will require a hospitalization of at least two nights for treatment of multifocal pneumonia with sepsis. Given patient's many comorbidities, including multiple autoimmune diseases and significant cardiac hx, pt will be at risk of rapid decompensation without admission to the hospital for treatment with IV antibiotics. Quality Stroke Does the patient have a stroke diagnosis?: No VTE Prior VTE?: No VTE Risk Level:: Medical - moderate - high VTE Device Contraindication: Treatment Not Indicated VTE Drug Contraindication: N/A - Med Ordered
--- NOTE | 2024-05-22 17:25 | PC.NURSE ---
pt refused heparin injection at this time. pt educated on importance - still refused. returned in pyxis.
--- NOTE | 2024-05-22 17:33 | PHA.MEDREC ---
Addendum entered by Charlene Hair RPh 05/22/24 17:48: reviewed by [facility]. Original Note: Pharmacy Consult ? Medication Reconciliation Pharmacy has completed the medication reconciliation. Spoke with patient to confirm medications. She reports still taking carvedilol (last garbage pick up man 10/02/23), entresto once daily [supposed to be bid] (01/15/24), Trulicity taken last (01/15/24 x28 DS), and clonidine (12/10/23). She reports taking prochlorperazine bid scheduled. She is currently using nicotine patches, she stepped down to 14 mg patch. She reports she took her medications this morning.
[2024-05-22] MEDS: Nicotine 14 MG PATCH.TD24 TRANSDERMA (19:25)
[2024-05-22] MEDS: Prochlorperazine Maleate 5 MG TABLET PO (19:26)
[2024-05-22] MEDS: Albuterol/Iprat 2.5/0.5MG 3 ML AMPUL.NEB INHALE (20:12)
[2024-05-22] MEDS: cloNIDine HCL 0.2 MG TABLET PO (20:33)
[2024-05-22] MEDS: carvediloL 25 MG TABLET 50 MG PO (20:34)
[2024-05-22] MEDS: NIFEdipine ER 90 MG TAB.ER.24 PO (20:34)
[2024-05-22 20:38] LABS: Glucose, Whole Blood 165 mg/dL (60-115)
[2024-05-22] MEDS: 0.9 % Sodium Chloride Flush 3 ML SYRINGE IVFLUSH (23:56)
[2024-05-23] VITALS (11 sets, daily range): BP systolic 132–158; BP diastolic 78–95; PULSE 68–76; RESP 15–20; TEMP 36.3–37; O2SAT 97–100
[2024-05-23 05:46] LABS: Hematocrit 27.8 % (37.0-47.0); Hemoglobin 9.9 g/dl (12.0-16.0); Mean Corpuscular HGB Conc 35.6 g/dl (31.0-35.0); Mean Corpuscular Hemoglobin 33.8 pg (27.0-33.0); Mean Corpuscular Volume 94.9 fL (80.0-98.0); Mean Platelet Volume 9.6 fL (9.4-12.3); Platelet Count 539 X10*3/uL (160-400); Red Blood Count 2.93 X10*6/uL (4.20-5.50); Red Cell Distribution Width 14.1 % (11.0-16.0); White Blood Count 12.2 X10*3/uL (4.8-10.8)
[2024-05-23 06:07] LABS: Anion Gap 16 (12-20); Blood Urea Nitrogen 68 mg/dL (9-16); Calcium 8.1 mg/dL (8.4-10.2); Carbon Dioxide 17 mmol/L (22-29); Chloride 105 mmol/L (96-108); Estimated Glomerular Filt Rate 9; Glucose Random 227 mg/dL (60-115); Potassium 4.1 mmol/L (3.3-5.1); Sodium 134 mmol/L (135-145)
--- NOTE | 2024-05-23 06:15 | PC.NURSE ---
This RN assumed pt care @ 1900. Pt a&ox4, no signs of distress. Pt creatinine 5.47 Dr. Montes notified. Plan of care ongoing.
[2024-05-23] MEDS: Albuterol/Iprat 2.5/0.5MG 3 ML AMPUL.NEB INHALE ×2 (07:33→16:10)
[2024-05-23] MEDS: Spironolactone 25 MG TABLET PO (08:54)
[2024-05-23] MEDS: carvediloL 25 MG TABLET 50 MG PO ×2 (08:55→20:33)
[2024-05-23] MEDS: Multivitamin TABLET 1 TAB PO (08:55)
[2024-05-23] MEDS: cloNIDine HCL 0.2 MG TABLET PO ×2 (08:55→20:33)
[2024-05-23] MEDS: 0.9 % Sodium Chloride Flush 3 ML SYRINGE IVFLUSH ×2 (08:55→17:24)
[2024-05-23] MEDS: NIFEdipine ER 90 MG TAB.ER.24 PO ×2 (10:28→20:33)
[2024-05-23] MEDS: Prochlorperazine Maleate 5 MG TABLET PO ×2 (10:28→20:33)
[2024-05-23] MEDS: Sacubitril/Valsartan 24/26 1 TAB TABLET PO (10:28)
--- NOTE | 2024-05-23 11:50 | P.PNIM_ITS ---
Subjective Subjective Date of Service: 05/23/24 Interval History: Feeling better , complaining of shortness of breath with activity, mild cough, no fevers, no chills, scheduled for hemodialysis this afternoon. Review of Systems All other system reviewed and negative Physical Exam 2 Vital Signs: Vital Signs: Last Vital Signs Temp 98 F 05/23/24 10:42 Pulse 69 05/23/24 10:42 Resp 16 05/23/24 10:42 BP 132/89 05/23/24 10:42 Pulse Ox 97 05/23/24 10:42 O2 Del Method Room Air 05/23/24 10:42 O2 Flow Rate 2 05/23/24 08:13 Oxygen Flow Rate 2 05/22/24 09:13 BMI result Body Mass Index 24.0 Const: Other: General resting comfortably in no acute distress. Neck no JVD. CVS regular rate rhythm, Respiratory lungs clear to auscultation, no respiratory distress Gastrointestinal abdomen soft, non tender, bowel sounds audible Extremities no edema. Neuro non focal Skin no rash Appropriate affect Objective Data Active Medications Acetaminophen (Acetaminophen 325 Mg Tablet) 650 mg PO Q6H PRN PRN Reason: Pain, Mild 1-3,fever,headache Albuterol/Ipratropium (Albuterol/Iprat 2.5/0.5mg 3 Ml Ampul.Neb) 3 ml INHALE RQ6H WHILE AWAKE [facility] Last Admin: 05/23/24 07:33 Dose: 3 ml Documented By: WILEY Calcium Carbonate (Calcium Carbonate 750 Mg Tab.Chew) 750 mg PO Q4H PRN PRN Reason: Heartburn Carvedilol (Carvedilol 25 Mg Tablet) 50 mg PO BID [facility]; Protocol Last Admin: 05/23/24 08:55 Dose: 50 mg Documented By: BENTON Clonidine HCl (Clonidine Hcl 0.2 Mg Tablet) 0.2 mg PO BID [facility]; Protocol Last Admin: 05/23/24 08:55 Dose: 0.2 mg Documented By: BENTON Famotidine (Famotidine 20 Mg Tablet) 20 mg PO DAILY PRN PRN Reason: Heartburn Heparin Sodium (Porcine) (Heparin Sodium,Porcine 5,000 Unit/Ml Vial) 5,000 unit SUBCUT Q8H [facility] Last Admin: 05/23/24 08:54 Dose: Not Given Documented By: BENTON Non-Admin Reason: Patient Refused Levofloxacin (Levofloxacin 500 Mg Tablet) 500 mg PO Q24H [facility] Magnesium Hydroxide (Milk Of Magnesia 30 Ml Oral.Susp) 30 ml PO DAILY PRN PRN Reason: Constipation Melatonin (Melatonin 3 Mg Tablet) 6 mg PO BEDTIME PRN PRN Reason: Insomnia Multivitamins/Vitamin C (Multivitamin Tablet) 1 tab PO DAILY [facility] Last Admin: 05/23/24 08:55 Dose: 1 tab Documented By: BENTON Nicotine (Nicotine 14 Mg Patch.Td24) 14 mg TRANSDERMA DAILY [facility] Last Admin: 05/23/24 10:29 Dose: Not Given Documented By: BENTON Non-Admin Reason: Duplicate Order Nifedipine (Nifedipine Er 90 Mg Tab.Er.24) 90 mg PO BID [facility]; Protocol Last Admin: 05/23/24 10:28 Dose: 90 mg Documented By: BENTON Prochlorperazine Maleate (Prochlorperazine Maleate 5 Mg Tablet) 5 mg PO BID [facility] Last Admin: 05/23/24 10:28 Dose: 5 mg Documented By: BENTON Sacubitril/Valsartan (Sacubitril/Valsartan 1 Tab Tablet) 1 tab PO DAILY [facility]; Protocol Last Admin: 05/23/24 10:28 Dose: 1 tab Documented By: BENTON Sodium Chloride (0.9 % Sodium Chloride Flush 3 Ml Syringe) 3 ml IVFLUSH QSHIFT [facility] Last Admin: 05/23/24 08:55 Dose: 3 ml Documented By: BENTON Spironolactone (Spironolactone 25 Mg Tablet) 25 mg PO DAILY [facility]; Protocol Last Admin: 05/23/24 08:54 Dose: 25 mg Documented By: BENTON Labs 05/23/24 04:47 05/23/24 04:47 Labs: Laboratory Results - last 24 hr 05/22/24 05/22/24 05/23/24 13:12 20:35 04:47 MCV 94.9 MCH 33.8 H MCHC 35.6 H RDW 14.1 Plt Count 539 H MPV 9.6 Absolute Nucleated RBC 0.000 Nucleated RBC % (auto) 0.0 Anion Gap 16 Estim Creat Clear Calc 13.0 Estimated GFR 9 POC Glucose 165 H Random Glucose 227 H Lactic Acid 0.7 Calcium 8.1 L Assessment and Plan (1) Acute dyspnea: Status: Acute (2) Elevated WBC count: Status: Acute (3) Multifocal pneumonia: Status: Acute Plan 44-year-old female with a PMH significant for ESRD on HD M/W/F, insulin- dependent type 2 diabetes,?cardiomyopathy, HFpEF, NSTEMI, hx of DVT not on thinners, rheumatoid arthritis, lupus, Sjogren's, HLD, and bipolar disorder who presents to the ED with?SOB and difficulty breathing x3 days. Pt will be admitted to the hospital for treatment and further evaluation of multifocal pneumonia with sepsis. Multifocal pneumonia with sepsis Feeling better shortness of breath with activity, mild cough CTA of chest showing multifocal pneumonia Sepsis resolved continue levofloxacin renally dosed, started 05/22/2023 DuoNebs, guaifenesin Monitor respiratory status Elevated troponins Initial troponin 48.6 with repeat flat at 40.9, likely due to kidney disease, no chest pain, no further workup warranted Lupus/RA/Sjogren's Not in acute flare Not on chronic prednisone, last course around 5 months ago HTN Stable blood pressure, Continue carvedilol, clonidine, and nifedipine ESRD on HD M/W/F scheduled for hemodialysis today HFpEF Not in acute exacerbation,Continue Entresto Full Code DVT Prophylaxis: Heparin Pt will require continued inpatient hospitalization for treatment of multifocal pneumonia with sepsis /on hemodialysis. Quality Stroke Does the patient have a stroke diagnosis?: No VTE Prior VTE?: No VTE Risk Level:: Medical - moderate - high VTE Device Contraindication: Treatment Not Indicated VTE Drug Contraindication: N/A - Med Ordered
--- NOTE | 2024-05-23 14:08 | MHC.CM.PN ---
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
--- NOTE | 2024-05-23 16:15 | P.CONNP_ITS ---
History of Present Illness Reason for Consult Consult date: 05/23/24 Chief Complaint Chief complaint: multifocal pnuemonia with sepsis History of Present Illness Narrative: 44 year old patient with history of ESRD admitted with acute respiratory failure. She reports worsening shortness of breath with productive cough with brown phlegm. She denies nausea, vomiting or diarrhea. CTA showed multifocal pneumonia. Review of Systems Review of Systems 10 points ROS negative except for pertinent in HPI PMFSH Past Medical History Medical History Legally blind Vascular dialysis catheter in place Hypertensive retinopathy Macular edema Diabetic retinopathy Hyperglycemia CHF (congestive heart failure) Hypertensive urgency Malignant hypertension CKD (chronic kidney disease) Heart block AV second degree Hypersomnia Cardiomyopathy CKD (chronic kidney disease) stage 2, GFR 60-89 ml/min Nicotine dependence, cigarettes, uncomplicated (~1999) Eclampsia Fatty liver Heart failure, unspecified (~09/2020) History of DVT (deep vein thrombosis) Diabetes mellitus Migraines Sjogren's disease Lupus Rheumatoid arthritis High cholesterol Anxiety PTSD (post-traumatic stress disorder) Bipolar 1 disorder H/O mixed connective tissue disease HTN (hypertension) Family History Family History Father Substance use disorder Mental health disorder Brother Substance use disorder Mental health disorder Brother Substance use disorder Mental health disorder Other Diabetes HTN (hypertension) Surgical History Surgical History History of H/O eye surgery History of hip surgery Tubal ligation status History of bronchoscopy (~11/2020) History of cholecystectomy (~05/2014) Social History Social History Household Members: Family Household Members Other:: 3 Housing: House Are you a primary health care analyst to a significant other at home: No Do you presently have 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 If so, by whom?: No Do you feel safe in your current relationship?: Yes Is there a partner from a previous relationship who is making you feel unsafe now?: No Are you made to feel afraid or neglected: No Advance Directives: Yes Advance Directives on File: Yes Advance Directives Date on File: 06/03/21 Do you have a plan to hurt others: No Plan Recently lost weight without trying: No Nutrition Risks: No Nutritional Risk Patient : No : No Poor oral hygiene: No service: No Current occupational status: disabled Cognitive needs: No Hearing needs: No Vision needs: No Meds Allergies Allergy/AdvReac Type Severity Reaction Status Date / Time amoxicillin Allergy Unknown rash Verified 05/22/24 09:15 cefaclor [From Ceclor] Allergy Unknown RASH Verified 05/22/24 09:15 cephalexin Allergy Unknown rash Verified 05/22/24 09:15 Cephalosporins Allergy Unknown RASH ALL Verified 05/22/24 09:15 [CEPHALOSPORINS] OVER cephradine [From VELOSEF] Allergy Unknown RASH Verified 05/22/24 09:15 Penicillins [PENICILLINS] Allergy Unknown RASH Verified 05/22/24 09:15 gabapentin [GABAPENTIN] AdvReac Unknown RESTLESS Verified 05/22/24 09:15 LEGS, Body becomes very uncomfortable Active Medications: Current Medications Acetaminophen (Acetaminophen 325 Mg Tablet) 650 mg PO Q6H PRN PRN Reason: Pain, Mild 1-3,fever,headache Albuterol/Ipratropium (Albuterol/Iprat 2.5/0.5mg 3 Ml Ampul.Neb) 3 ml INHALE RQ6H WHILE AWAKE [facility] Last Admin: 05/23/24 16:10 Dose: 3 ml Calcium Carbonate (Calcium Carbonate 750 Mg Tab.Chew) 750 mg PO Q4H PRN PRN Reason: Heartburn Carvedilol (Carvedilol 25 Mg Tablet) 50 mg PO BID [facility]; Protocol Last Admin: 05/23/24 08:55 Dose: 50 mg Clonidine HCl (Clonidine Hcl 0.2 Mg Tablet) 0.2 mg PO BID [facility]; Protocol Last Admin: 05/23/24 08:55 Dose: 0.2 mg Famotidine (Famotidine 20 Mg Tablet) 20 mg PO DAILY PRN PRN Reason: Heartburn Guaifenesin (Guaifenesin La 600 Mg Tab.Er.12h) 600 mg PO BID [facility] Heparin Sodium (Porcine) (Heparin Sodium,Porcine 5,000 Unit/Ml Vial) 5,000 unit SUBCUT Q8H [facility] Last Admin: 05/23/24 08:54 Dose: Not Given Levofloxacin (Levofloxacin 500 Mg Tablet) 500 mg PO Q48H [facility] Magnesium Hydroxide (Milk Of Magnesia 30 Ml Oral.Susp) 30 ml PO DAILY PRN PRN Reason: Constipation Melatonin (Melatonin 3 Mg Tablet) 6 mg PO BEDTIME PRN PRN Reason: Insomnia Multivitamins/Vitamin C (Multivitamin Tablet) 1 tab PO DAILY [facility] Last Admin: 05/23/24 08:55 Dose: 1 tab Nicotine (Nicotine 14 Mg Patch.Td24) 14 mg TRANSDERMA DAILY [facility] Last Admin: 05/23/24 10:29 Dose: Not Given Nifedipine (Nifedipine Er 90 Mg Tab.Er.24) 90 mg PO BID [facility]; Protocol Last Admin: 05/23/24 10:28 Dose: 90 mg Prochlorperazine Maleate (Prochlorperazine Maleate 5 Mg Tablet) 5 mg PO BID [facility] Last Admin: 05/23/24 10:28 Dose: 5 mg Sacubitril/Valsartan (Sacubitril/Valsartan 1 Tab Tablet) 1 tab PO DAILY [facility]; Protocol Last Admin: 05/23/24 10:28 Dose: 1 tab Sodium Chloride (0.9 % Sodium Chloride Flush 3 Ml Syringe) 3 ml IVFLUSH QSHIFT [facility] Last Admin: 05/23/24 08:55 Dose: 3 ml Spironolactone (Spironolactone 25 Mg Tablet) 25 mg PO DAILY [facility]; Protocol Last Admin: 05/23/24 08:54 Dose: 25 mg Home Medications ?Medication ?Instructions ?Recorded ?Confirmed ?Last Taken ?Type carvedilol 25 mg tablet 50 mg PO BID 03/20/22 05/22/24 09/03/23 History nifedipine 90 mg tablet,extended 1 tab PO BID 04/22/22 05/22/24 09/03/23 History release 24 hr clotrimazole-betamethasone 1 1 appl topical BID PRN Rash 05/22/24 05/22/24 Unknown History %-0.05 % topical cream famotidine 20 mg tablet 20 mg PO DAILY PRN Heartburn 05/22/24 05/22/24 Unknown History prochlorperazine maleate 5 mg 5 mg PO BID 05/22/24 05/22/24 Unknown History tablet sacubitril 24 mg-valsartan 26 mg 1 tab PO DAILY 05/22/24 05/22/24 Unknown History tablet (Entresto) spironolactone 25 mg tablet 25 mg PO DAILY 05/22/24 05/22/24 Unknown History vitamin B complex-vitamin C-folic 1 tab PO DAILY 05/22/24 05/22/24 Unknown History acid 0.8 mg tablet (Jaclyn-Elias) Physical Exam Vital Signs: Last Vital Signs Temp 97.8 F 05/23/24 15:09 Pulse 68 05/23/24 16:12 Resp 16 05/23/24 16:12 BP 156/79 H 05/23/24 15:09 Pulse Ox 98 05/23/24 15:09 O2 Del Method Nasal Cannula 05/23/24 15:09 O2 Flow Rate 4 05/23/24 15:09 Oxygen Flow Rate 2 05/22/24 09:13 BMI result Body Mass Index 24.0 Const General: no acute distress, alert and awake Neck Neck: Yes supple Resp Auscultation: diminished lung sounds Cardio Heart sounds: S1 normal heart sound present and S2 normal heart sound present GI Palpation (GI): Soft to palpation and nontender Extrem General: Yes no pedal edema Results Lab Results 05/23/24 04:47 05/23/24 04:47 Lab results: Chemistry 05/22/24 05/23/24 09:27 04:47 Sodium 134 L 134 L Potassium 4.0 4.1 Carbon Dioxide 16 L 17 L BUN 67 H 68 H Creatinine 4.68 H* 5.47 H* Calcium 8.2 L D 8.1 L Hematology 05/22/24 05/23/24 09:27 04:47 WBC 22.2 H 12.2 H Hgb 10.8 L 9.9 L Plt Count 586 H 539 H Assessment and Plan (1) ESRD (end stage renal disease): Status: Acute (2) Anemia: Status: Acute Plan known ESRD on HD at [facility] ([facility]) via [facility] admitted with respiratory failure CTA shoed multifocal pneumonia nephrogenic anemia h/o HFpEF REC HD today optimize volume status P binders no need for KARON Procedures Date of Service Date of Service: 05/23/24
[2024-05-23] MEDS: guaiFENesin LA 600 MG TAB.ER.12H PO (20:32)
[2024-05-23] MEDS: Nicotine 14 MG PATCH.TD24 TRANSDERMA (20:37)
--- NOTE | 2024-05-23 20:55 | PC.NURSE ---
Addendum entered by Merline Valdez RN 05/24/24 06:14: patient back to the room s/p dialysis at 0030 Original Note: Patient off unit to dialysis
[2024-05-24] VITALS (9 sets, daily range): BP systolic 128–150; BP diastolic 70–86; PULSE 65–78; RESP 16–18; TEMP 36.3–37; O2SAT 97–100
[2024-05-24] MEDS: Calcium Carbonate 750 MG TAB.CHEW PO ×2 (03:51→19:53)
[2024-05-24] MEDS: ondansetron HCL 4 MG/2 ML VIAL IVPUSH ×2 (04:20→12:36)
--- NOTE | 2024-05-24 06:15 | PC.NURSE ---
Patient alert and oriented, on 2L NC stating still feels short of breath at times, but able to move around on RA without distress. Nicotine patch was applied to R shoulder per patient's request, morning dose was not administered and patient had patch from the night before which was removed and discarded. Patient had dialysis taken to the dialysis at 2054 and returned back to the room at 0030. Patient was able to rest. at 0400 patient c/o of heart burn and requested medication to help relive the symptom, tums given with good effect. Patient also asked for nausea medication, provider notified and zofran PRN ordered and administered also with good effect. Patient was inquiring about antibiotics and was informed that the next dose will be do at 1200 noon. Patient resting in the reclining chair stating it feels easier to breath. BP elevated and provider notified.
[2024-05-24] MEDS: Prochlorperazine Maleate 5 MG TABLET PO ×2 (08:01→19:53)
[2024-05-24] MEDS: Nicotine 14 MG PATCH.TD24 TRANSDERMA (08:02)
[2024-05-24] MEDS: Spironolactone 25 MG TABLET PO (08:03)
[2024-05-24] MEDS: carvediloL 25 MG TABLET 50 MG PO ×2 (08:03→19:53)
[2024-05-24] MEDS: Multivitamin TABLET 1 TAB PO (08:03)
[2024-05-24] MEDS: Sacubitril/Valsartan 24/26 1 TAB TABLET PO (08:03)
[2024-05-24] MEDS: guaiFENesin LA 600 MG TAB.ER.12H PO ×2 (08:03→19:54)
[2024-05-24] MEDS: NIFEdipine ER 90 MG TAB.ER.24 PO ×2 (08:03→19:54)
[2024-05-24] MEDS: cloNIDine HCL 0.2 MG TABLET PO ×2 (08:03→19:53)
[2024-05-24] MEDS: 0.9 % Sodium Chloride Flush 3 ML SYRINGE IVFLUSH ×3 (08:04→19:55)
[2024-05-24] MEDS: Famotidine 20 MG TABLET PO (08:27)
[2024-05-24 09:14] LABS: Creatinine Clr Calc Pharmacy 16.8; Estimated Glomerular Filt Rate 12
[2024-05-24] MEDS: Albuterol/Iprat 2.5/0.5MG 3 ML AMPUL.NEB INHALE ×3 (09:22→20:39)
[2024-05-24 09:23] LABS: Anion Gap 15 (12-20); Blood Urea Nitrogen 54 mg/dL (9-16); Calcium 8.8 mg/dL (8.4-10.2); Carbon Dioxide 21 mmol/L (22-29); Chloride 106 mmol/L (96-108); Glucose Random 163 mg/dL (60-115); Potassium 4.6 mmol/L (3.3-5.1); Sodium 137 mmol/L (135-145)
[2024-05-24] MEDS: Acetaminophen 325 MG TABLET 650 MG PO (12:36)
[2024-05-24] MEDS: levoFLOXacin 500 MG TABLET PO (12:37)
[2024-05-24 14:14] LABS: Adenovirus F 40/41 Not Detected (Not Detect.); Astrovirus Not Detected (Not Detect.); Campylobacter Not Detected (Not Detect.); Cryptosporidium Not Detected (Not Detect.); Cyclospora cayetanensis Not Detected (Not Detect.); E. coli EAEC Not Detected (Not Detect.); E. coli EPEC Not Detected (Not Detect.); E. coli ETEC Not Detected (Not Detect.); E. coli STEC Not Detected (Not Detect.); Entamoeba histolytica Not Detected (Not Detect.); Giardia lamblia Not Detected (Not Detect.); Plesiomonas shigelloides Not Detected (Not Detect.); Rotavirus A Not Detected (Not Detect.); Salmonella Not Detected (Not Detect.); Sapovirus Not Detected (Not Detect.); Shigella sp./EIEC Not Detected (Not Detect.); Vibrio Not Detected (Not Detect.); Vibrio Cholerae Not Detected (Not Detect.); Yersinia enterocolitica Not Detected (Not Detect.)
[2024-05-24 14:24] LABS: Norovirus GI/GII Detected (Not Detect.)
--- NOTE | 2024-05-24 14:54 | P.PNIM_ITS ---
Subjective Subjective Date of Service: 05/25/24 Interval History: This morning developed nausea, vomiting and loose watery stool for so far, denies fever, no chills, no shortness of breath but persistent cough productive of white phlegm, gives history of recent norovirus infection. Review of Systems All other system reviewed and negative. Physical Exam 2 Vital Signs: Vital Signs: Last Vital Signs Temp 98.6 F 05/24/24 12:00 Pulse 66 05/24/24 12:00 Resp 18 05/24/24 12:00 BP 128/70 05/24/24 12:00 Pulse Ox 97 05/24/24 12:00 O2 Del Method Room Air 05/24/24 12:00 O2 Flow Rate 4 05/23/24 18:52 Oxygen Flow Rate 2 05/22/24 09:13 BMI result Body Mass Index 24.0 Const: Other: General awake alert x3, no distress Neck no JVD. CVS regular rate rhythm, Respiratory lungs clear to auscultation, no respiratory distress. Gastrointestinal abdomen soft, mild discomfort to palpation, bowel sounds audible. Extremities no edema. Neuro non focal Skin no rash Appropriate affect Objective Data Active Medications Acetaminophen (Acetaminophen 325 Mg Tablet) 650 mg PO Q6H PRN PRN Reason: Pain, Mild 1-3,fever,headache Last Admin: 05/24/24 12:36 Dose: 650 mg Documented By: MORENO Albuterol/Ipratropium (Albuterol/Iprat 2.5/0.5mg 3 Ml Ampul.Neb) 3 ml INHALE RQ6H WHILE AWAKE [facility] Last Admin: 05/24/24 09:22 Dose: 3 ml Documented By: WILEY Calcium Carbonate (Calcium Carbonate 750 Mg Tab.Chew) 750 mg PO Q4H PRN PRN Reason: Heartburn Last Admin: 05/24/24 03:51 Dose: 750 mg Documented By: DOBROIrene Carvedilol (Carvedilol 25 Mg Tablet) 50 mg PO BID [facility]; Protocol Last Admin: 05/24/24 08:03 Dose: 50 mg Documented By: MORENO Clonidine HCl (Clonidine Hcl 0.2 Mg Tablet) 0.2 mg PO BID [facility]; Protocol Last Admin: 05/24/24 08:03 Dose: 0.2 mg Documented By: MORENO Famotidine (Famotidine 20 Mg Tablet) 20 mg PO DAILY PRN PRN Reason: Heartburn Last Admin: 05/24/24 08:27 Dose: 20 mg Documented By: MORENO Guaifenesin (Guaifenesin La 600 Mg Tab.Er.12h) 600 mg PO BID [facility] Last Admin: 05/24/24 08:03 Dose: 600 mg Documented By: MORENO Heparin Sodium (Porcine) (Heparin Sodium,Porcine 5,000 Unit/Ml Vial) 5,000 unit SUBCUT Q8H [facility] Last Admin: 05/24/24 08:12 Dose: Not Given Documented By: MORENO Non-Admin Reason: Patient Refused Levofloxacin (Levofloxacin 500 Mg Tablet) 500 mg PO Q48H [facility] Last Admin: 05/24/24 12:37 Dose: 500 mg Documented By: MORENO Magnesium Hydroxide (Milk Of Magnesia 30 Ml Oral.Susp) 30 ml PO DAILY PRN PRN Reason: Constipation Melatonin (Melatonin 3 Mg Tablet) 6 mg PO BEDTIME PRN PRN Reason: Insomnia Multivitamins/Vitamin C (Multivitamin Tablet) 1 tab PO DAILY [facility] Last Admin: 05/24/24 08:03 Dose: 1 tab Documented By: MORENO Nicotine (Nicotine 14 Mg Patch.Td24) 14 mg TRANSDERMA DAILY [facility] Last Admin: 05/24/24 08:02 Dose: 14 mg Documented By: MORENO Nifedipine (Nifedipine Er 90 Mg Tab.Er.24) 90 mg PO BID [facility]; Protocol Last Admin: 05/24/24 08:03 Dose: 90 mg Documented By: MORENO Ondansetron HCl (Ondansetron Hcl 4 Mg/2 Ml Vial) 4 mg IVPUSH Q6H PRN PRN Reason: Nausea and Vomiting Last Admin: 05/24/24 12:36 Dose: 4 mg Documented By: MORENO Prochlorperazine Maleate (Prochlorperazine Maleate 5 Mg Tablet) 5 mg PO BID [facility] Last Admin: 05/24/24 08:01 Dose: 5 mg Documented By: MORENO Sacubitril/Valsartan (Sacubitril/Valsartan 1 Tab Tablet) 1 tab PO DAILY [facility]; Protocol Last Admin: 05/24/24 08:03 Dose: 1 tab Documented By: MORENO Sodium Chloride (0.9 % Sodium Chloride Flush 3 Ml Syringe) 3 ml IVFLUSH QSHIFT [facility] Last Admin: 05/24/24 08:04 Dose: 3 ml Documented By: MORENO Spironolactone (Spironolactone 25 Mg Tablet) 25 mg PO DAILY [facility]; Protocol Last Admin: 05/24/24 08:03 Dose: 25 mg Documented By: MORENO Labs 05/23/24 04:47 05/25/24 07:02 Labs: Laboratory Results - last 24 hr 05/24/24 05/24/24 08:08 12:00 Hold Purple Top SEE NOTE Anion Gap 15 Estim Creat Clear Calc 16.8 Estimated GFR 12 Random Glucose 163 H Calcium 8.8 D Stl C. cayetanensis PCR Not Detected Stool Rotavirus A PCR Not Detected Stl Adenov F 40/41 PCR Not Detected Stool Astrovirus (PCR) Not Detected Stool Campylobacter PCR Not Detected Stool Cryptosporidium PCR Not Detected Stl Sh Tox Pr E STEC PCR Not Detected Stool E coli O157 PCR Not applicable Stl Enterotoxigenic E PCR Not Detected Stool EPEC (PCR) Not Detected Stool EAEC (PCR) Not Detected Stl E. histolytica PCR Not Detected Stool Giardia Lamblia PCR Not Detected Stl P. shigelloides PCR Not Detected Stool Salmonella PCR Not Detected Stool Sapovirus (PCR) Not Detected Stl Shigella/EIEC PCR Not Detected St Y.enterocolitica PCR Not Detected Stool Vibrio (PCR) Not Detected Stl Vibrio cholerae PCR Not Detected Stl Norovirus GI/GII PCR Detected A Microbiology Microbiology Results: Microbiology 05/22/24 12:31 Blood Culture - Preliminary Blood - Venous No growth after 48 hours. 05/22/24 13:12 Blood Culture - Preliminary Blood - Venous No growth after 24 hours. Assessment and Plan (1) Anemia: Status: Acute (2) ESRD (end stage renal disease): Status: Acute (3) Acute dyspnea: Status: Acute Plan Pt is a 44-year-old female with a PMH significant for ESRD on HD M/W/F, insulin- dependent type 2 diabetes,?cardiomyopathy, HFpEF, NSTEMI, hx of DVT not on thinners, rheumatoid arthritis, lupus, Sjogren's, HLD, and bipolar disorder who presents to the ED with?SOB and difficulty breathing x3 days. Pt will be admitted to the hospital for treatment and further evaluation of multifocal pneumonia with sepsis. Nausea vomiting and diarrhea GI panel positive for norovirus, patient had norvo virus diagnosed 2 weeks ago Continue supportive care/contact precautions, hold Aldactone Multifocal pneumonia with sepsis Feeling better shortness of breath with activity, persistent cough productive of brown phlegm CTA of chest showed multifocal pneumonia Sepsis resolved continue levofloxacin renally dosed, started 05/22/2023 DuoNepascual guaifenesin Monitor respiratory status Elevated troponins Initial troponin 48.6 with repeat flat at 40.9, likely due to kidney disease, no chest pain, no further workup warranted, no acute EKG changes. Lupus/RA/Sjogren's Not in acute flare Not on chronic prednisone, last course around 5 months ago HTN Stable blood pressure, Continue carvedilol, clonidine, and nifedipine ESRD on HD M/W/F Status post hemodialysis 05/24 HFpEF Not in acute exacerbation,Continue Entresto Full Code DVT Prophylaxis: Heparin Pt will require continued inpatient hospitalization for treatment of multifocal pneumonia with sepsis /on hemodialysis/recurrent diarrhea due to norovirus Quality Stroke Does the patient have a stroke diagnosis?: No VTE Prior VTE?: No VTE Risk Level:: Medical - moderate - high VTE Device Contraindication: Treatment Not Indicated VTE Drug Contraindication: N/A - Med Ordered
[2024-05-25] MEDS: Heparin Sodium,Porcine 5,000 UNIT/ML VIAL 5000 UNIT SUBCUT (00:15)
[2024-05-25 03:33] VITALS: BP 128/64; PULSE 70; RESP 16; TEMP 37.2; O2SAT 98
[2024-05-25] MEDS: ondansetron HCL 4 MG/2 ML VIAL IVPUSH (06:47)
[2024-05-25 07:56] VITALS: BP 133/77; PULSE 62; RESP 16; TEMP 36.2; O2SAT 96
[2024-05-25 08:01] LABS: Anion Gap 14 (12-20); Blood Urea Nitrogen 58 mg/dL (9-16); Calcium 8.6 mg/dL (8.4-10.2); Carbon Dioxide 20 mmol/L (22-29); Chloride 104 mmol/L (96-108); Creatinine Clr Calc Pharmacy 14.2; Estimated Glomerular Filt Rate 9; Glucose Random 155 mg/dL (60-115); Sodium 134 mmol/L (135-145)
--- NOTE | 2024-05-25 10:38 | PM.DS ---
DS: Providers Provider Date of Service: 05/25/24 Date of admission: 05/22/24 16:15 Date of discharge: 05/25/24 Primary care physician: Mauricio Nolasco [facility] Consults: 05/23/24 13:25 Consult to Nephrology Stat Consulting Provider[facility] Reason for consultation: hemodialysis Has provider been notified: No DS: Diagnosis Discharge Diagnosis (1) Anemia: Status: Acute (2) ESRD (end stage renal disease): Status: Acute (3) Acute dyspnea: Status: Acute DS: Summary Hospital Course Hospital Course: History of presenting illness: Date of Service: 05/22/24 Attending physician on admission: Christy Dupont Chief Complaint: SOB Pt is a 44-year-old female with a PMH significant for ESRD on HD M/W/F, insulin-dependent type 2 diabetes,?cardiomyopathy, HFpEF, NSTEMI, hx of DVT not on thinners, rheumatoid arthritis, lupus, Sjogren's, HLD, and bipolar disorder who presents to the ED with?SOB and difficulty breathing x3 days. Pt reports symptoms began on Thursday when pt noted she ?could not catch my breath? especially with exertion. Reports ?a little? nonproductive cough and some wheezing. Not on home O2. Symptoms worsened last night when she found she could not breathe or or sleep due to SOB. Used home inhaler to no effect. Pt notes 10 days prior was sick with a likely viral illness she got from her son. Had headache, fever, nausea, vomiting, and pronounced cough. Symptoms resolved approximately 5 days ago. Denies chest pain/pressure, palpitations. No abdominal pain. Pt reports improved symptoms after receiving breathing treatment in the ED. In the ED pt was tachycardic up to 103, tachypneic up to 22, satting at 97% on RA Labs were significant for leukocytosis 22.2, D-dimer 1779, sodium 134, creatinine 4.68, initial troponin 48.6 with repeat 40.8, and BNP 1546 (around baseline). Tested negative for flu, RSV. CXR showed mild interstitial prominence without overt edema and no effusion. CTA of chest negative for pulmonary embolism,?but showed multifocal pneumonia as well as mild cardiomegaly and pulmonary arterial hypertension. EKG demonstrated normal sinus rhythm with QTc of [address] depressions in lateral leads. Pt was treated with DuoNebs levofloxacin. Pt will be admitted to the hospital for treatment and further evaluation of multifocal pneumonia with sepsis. Hospital course: 44-year-old female with a PMH significant for ESRD on HD M/W/F, insulin-dependent type 2 diabetes,?cardiomyopathy, HFpEF, NSTEMI, hx of DVT not on thinners, rheumatoid arthritis, lupus, Sjogren's, HLD, and bipolar disorder who presents to the ED with?SOB and difficulty breathing x3 days, admitted to the hospital for treatment and further evaluation of multifocal pneumonia with sepsis. Multifocal pneumonia with sepsis, treated with Levaquin renally dosed, all symptoms of cough, shortness of breath and features of sepsis resolved, will discharge on Levaquin for total 5 day treatment recommend to continue cough syrup as needed, during course of hospitalization developed nausea, vomiting and diarrhea, as per patient 2 weeks ago was diagnosed to have normal virus infection repeat GI panel was positive for norovirus patient treated with supportive care diarrhea resolved tolerating diet, recommend to follow soft diet. Elevated troponins Initial troponin 48.6 with repeat flat at 40.9, likely due to kidney disease, no chest pain, no further workup warranted, no acute EKG changes. Lupus/RA/Sjogren's, no acute flare noted. HTN Stable blood pressure, Continue carvedilol, clonidine, and nifedipine. ESRD on HD M/W/F Status post hemodialysis 05/24 HFpEF Not in acute exacerbation,Continue Entresto. Time Attestation Discharge Coordination Time (in mins): 40 Quality: Safe Use of Opioids Does Pt have an Active Cancer Diagnosis on the Problem List?: No Quality: Stroke Does the patient have a stroke diagnosis?: No Physical Exam Vital Signs: Vital Signs: Last Vital Signs Temp 97.1 F 05/25/24 07:56 Pulse 62 05/25/24 07:56 Resp 16 05/25/24 07:56 BP 133/77 05/25/24 07:56 Pulse Ox 96 05/25/24 07:56 O2 Del Method Nasal Cannula 05/25/24 07:56 O2 Flow Rate 1 05/25/24 07:56 Oxygen Flow Rate 2 05/22/24 09:13 BMI result Body Mass Index 24.0 Const: Other: General awake alert x3, no distress Neck no JVD. CVS regular rate rhythm, Respiratory lungs clear to auscultation, no respiratory distress. Gastrointestinal abdomen soft, non tender, bowel sounds audible. Extremities no edema. Neuro non focal Skin no rash Appropriate affect DS: Data Data Completed and Pending Completed studies during hospitalization [Text1]: Procedures Drainage of Left Knee Joint, Percutaneous Approach (01/07/21) Fluoroscopy of Inferior Vena Cava, Guidance (06/07/23) Insertion of Infusion Device into Superior Vena Cava, Percutaneous Approach (06/07/23) Insertion of Tunneled Vascular Access Device into Chest Subcutaneous Tissue and Fascia, Percutaneous Approach (06/07/23) Performance of Urinary Filtration, Intermittent, Less than 6 Hours Per Day (06/07/23) Labs on day of discharge: Laboratory Results - last 24 hr 05/24/24 05/25/24 12:00 07:02 Sodium 134 L Potassium 4.0 Chloride 104 Carbon Dioxide 20 L Anion Gap 14 BUN 58 H Creatinine 5.02 H* Estim Creat Clear Calc 14.2 Estimated GFR 9 Random Glucose 155 H Calcium 8.6 Stl C. cayetanensis PCR Not Detected Stool Rotavirus A PCR Not Detected Stl Adenov F 40/41 PCR Not Detected Stool Astrovirus (PCR) Not Detected Stool Campylobacter PCR Not Detected Stool Cryptosporidium PCR Not Detected Stl Sh Tox Pr E STEC PCR Not Detected Stool E coli O157 PCR Not applicable Stl Enterotoxigenic E PCR Not Detected Stool EPEC (PCR) Not Detected Stool EAEC (PCR) Not Detected Stl E. histolytica PCR Not Detected Stool Giardia Lamblia PCR Not Detected Stl P. shigelloides PCR Not Detected Stool Salmonella PCR Not Detected Stool Sapovirus (PCR) Not Detected Stl Shigella/EIEC PCR Not Detected St Y.enterocolitica PCR Not Detected Stool Vibrio (PCR) Not Detected Stl Vibrio cholerae PCR Not Detected Stl Norovirus GI/GII PCR Detected A Preliminary micro results at discharge 05/22/24 13:12 Blood Culture - Preliminary Blood - Venous No growth after 48 hours. 05/22/24 12:31 Blood Culture - Preliminary Blood - Venous No growth after 48 hours. Discharge Plan Discharge Anticipated Discharge Date/Time: 05/25/24 10:29 Patient Disposition: Home, Self-Care Discharge Diagnosis: Multifocal pneumonia Referrals: Mauricio Nolasco, [employer] [Primary Care Provider] - 1 Week Discharge Medications: New levofloxacin 500 mg Tablet 500 mg PO Q48H Qty: 2 0RF Continued (DME) lancets [FreeStyle Lancets] 28 gauge misc See Rx Instructions .Route Qty: 100 4RF Rx Instructions: As directed- tests 4X/day (DME) blood pressure test kit-large Kit See Rx Instructions .Route Qty: 1 0RF Rx Instructions: daily use (DME) pen needle, diabetic 32 gauge x 1/4 needle Qty: 100 0RF Rx Instructions: Use four times a day or as directed. albuterol sulfate 90 mcg/actuation HFA aerosol inhaler 1 inh inhalation QID PRN (Reason: Wheezing) 30 Days Qty: 8.5 1RF nicotine [Nicoderm CQ] 14 mg/24 hr patch 24 hour 1 patch transdermal DAILY Qty: 28 0RF carvedilol 25 mg tablet 50 mg PO BID nifedipine 90 mg tablet extended release 24hr 1 tab PO BID (DME) FreeStyle Lite Strips Strip Qty: 100 0RF Rx Instructions: Test four times a day or as directed. (DME) blood-glucose meter [FreeStyle Lite Meter] Kit Qty: 1 0RF Rx Instructions: As Directed (DME) lancets [FreeStyle Lancets] 28 gauge misc Qty: 100 0RF Rx Instructions: Test four times a day or as directed. clonidine HCl 0.2 mg Tablet 0.2 mg PO BID Qty: 180 0RF Protocol: Hold for SBP< HOLD for SBP < : 90 prochlorperazine maleate 5 mg tablet 5 mg PO BID spironolactone 25 mg tablet 25 mg PO DAILY Jaclyn-Elias 0.8 mg tablet 1 tab PO DAILY famotidine 20 mg tablet 20 mg PO DAILY PRN (Reason: Heartburn) clotrimazole-betamethasone 1-0.05 % cream 1 appl topical BID PRN (Reason: Rash) sacubitril-valsartan [Entresto] 24-26 mg tablet 1 tab PO DAILY Protocol: Hold for SBP< HOLD for SBP < : 90 Trulicity 1.5 mg/0.5 mL pen injector 1.5 mg SUBCUT TH Qty: 2 4RF (DME) blood-glucose meter [FreeStyle Lite Meter] Kit See Rx Instructions .Route Qty: 1 0RF Rx Instructions: As directed tests 4 X/day (DME) FreeStyle Lite Strips Strip See Rx Instructions .Route Qty: 100 5RF Rx Instructions: As directed- tests 4X/day Discharge Orders: Discharge Order (Routine); Ordered 05/25/24 Ordered By: Christy Dupont Diet: Diabetic diet Activity on Discharge: As tolerated Stand Alone Forms: Patient Portal Discharge page Print Language: Wallisian Care Plan Goals: Continue soft diet with recent bout of norovirus infection Take Levaquin 500 mg q.48h after hemodialysis Health Concerns: Diabetes mellitus follow diabetic diet Continue all home medications as before Plan of Treatment: Outpatient follow-up with primary care physician Continue hemodialysis Wednesdays and Fridays Assessment: As above
--- NOTE | 2024-05-25 10:42 | MHC.CM.PN ---
Addendum entered by Yanet Bush 05/25/24 12:31: FAMILY UNABLE TO TRANSPORT, PT DC VIA [facility] RIDE. Original Note: DP: PT HAS BEEN MEDICALLY CLEARED FOR DC HOME, NO SERVICES. FAMILY WILL TRANSPORT HOME.
== END 2024-05-25 12:33 | disposition home or self-care (01) | DRG 871 ==
LOC: HO.ED 11:59 → HO.EDOVER 16:42 → HO.S3 05-23 07:31
PROVIDERS: Admitting Provider Student in an Organized Health Care Education/Training Program; Emergency Provider Emergency Medicine; PCP Nurse Practitioner Family; Visit Provider Hospitalist
DX: A41.9 Sepsis, unspecified organism (principal); J18.9 Pneumonia, unspecified organism; N18.6 End stage renal disease; I13.2 Hypertensive heart and chronic kidney disease with heart failure and with stage 5 chronic kidney disease, or end stage renal disease; I50.32 Chronic diastolic (congestive) heart failure; A08.11 Acute gastroenteropathy due to Norwalk agent; D63.1 Anemia in chronic kidney disease; M32.9 Systemic lupus erythematosus, unspecified; M06.9 Rheumatoid arthritis, unspecified; M35.00 Sjogren syndrome, unspecified; E11.22 Type 2 diabetes mellitus with diabetic chronic kidney disease; H54.8 Legal blindness, as defined in USA; Z20.822 Contact with and (suspected) exposure to COVID-19; Z86.718 Personal history of other venous thrombosis and embolism; Z99.2 Dependence on renal dialysis; Z87.891 Personal history of nicotine dependence; Z79.899 Other long term (current) drug therapy
CPT/HCPCS: 0241U; 36415; 71046; 71275; 80048; 80053; 82248; 82947; 83605; 83735; 83880; 84484; 85025; 85027; 85379; 87040; 87507; 90999; 93005; 94640; 99285; J1644; J1956; J2405; Q9967

== ENCOUNTER → 2024-05-22 09:23 | Outpatient (BNV) | payer MEDICARE, MEDICAID, SELFPAY ==
[2023-05-18 13:38] VITALS: BP 190/120; BMI 29.0
== END ==
PROVIDERS: Emergency Provider Emergency Medicine; PCP Nurse Practitioner Family; Visit Provider Internal Medicine Cardiovascular Disease
DX: I51.7 Cardiomegaly (principal)
CPT/HCPCS: 93010

== ENCOUNTER → 2024-05-22 09:30 | Outpatient (BNV) | payer MEDICARE, MEDICAID, SELFPAY ==
[2023-05-18 13:38] VITALS: BP 190/120; BMI 29.0
== END ==
PROVIDERS: Emergency Provider Emergency Medicine; PCP Nurse Practitioner Family; Visit Provider Radiology Vascular & Interventional Radiology
DX: R06.02 Shortness of breath (principal)
CPT/HCPCS: 71046; 71275

== ENCOUNTER → 2024-05-22 16:15 | Outpatient (BNV) | payer MEDICARE, MEDICAID, SELFPAY ==
[2023-05-18 13:38] VITALS: BP 190/120; BMI 29.0
== END ==
PROVIDERS: Admitting Provider Student in an Organized Health Care Education/Training Program; Emergency Provider Emergency Medicine; PCP Nurse Practitioner Family; Visit Provider Hospitalist
DX: N18.6 End stage renal disease (principal); D64.9 Anemia, unspecified; R06.00 Dyspnea, unspecified
CPT/HCPCS: 99223; 99232; 99239

== ENCOUNTER → 2024-06-28 10:25 | Outpatient (BNVA) | payer MEDICARE, MEDICAID, SELFPAY ==
[2023-05-18 13:38] VITALS: BP 190/120; BMI 29.0
== END ==
PROVIDERS: PCP Nurse Practitioner Family

== ENCOUNTER → 2024-07-05 10:36 | Outpatient (BNVA) | payer MEDICARE, MEDICAID, SELFPAY ==
[2023-05-18 13:38] VITALS: BP 190/120; BMI 29.0
== END ==
PROVIDERS: PCP Nurse Practitioner Family

== ENCOUNTER 2024-07-10 18:58 | Inpatient (IN) | payer MEDICARE, MEDICAID, SELFPAY ==
[2023-05-18 13:38] VITALS: BP 190/120; BMI 29.0
[2024-07-10] VITALS (9 sets, daily range): BP systolic 158–280; BP diastolic 77–150; PULSE 74–101; RESP 13–17; TEMP 36.8–37; O2SAT 97–100; BMI 24.2
--- NOTE | 2024-07-10 | ECG_ITS ---
Test Reason : seizure Blood Pressure : */* mmHG Vent. Rate : 93 BPM Atrial Rate : 93 BPM P-R Int : 154 ms QRS Dur : 102 ms QT Int : 412 ms P-R-T Axes : 71 -3 116 degrees QTcB Int : 512 ms Normal sinus rhythm Possible Left atrial enlargement Left ventricular hypertrophy with repolarization abnormality ( R in aVL , Sokolow-Abarca , Omar product ) Prolonged QT Abnormal ECG When compared with ECG of 22-May-2024 09:23, T wave inversion no longer evident in Anterior leads Referred By: Generic ED Physician Electronically Signed By: Mike Mccray
--- NOTE | ~2024-07-10 | CT_ITS ---
CLINICAL HISTORY: fall CT cervical spine without contrast Comparison: None Findings: Subtle convex left curvature. Straightening of cervical lordosis. Mild disc disease C6-C7 with marginal osteophytosis. No significant facet disease. No foraminal stenoses. No acute fractures or dislocations. Visualized intracranial contents are unremarkable. No cervical fluid collections or masses. No consolidation or effusion at the lung apices. IMPRESSION: No acute fracture. This document has been electronically signed by: Kevin Cerda MD on 07/10/2024 21:04:19
--- NOTE | ~2024-07-10 | CT_ITS ---
CLINICAL HISTORY: fall CT head without contrast Comparison: CT/REG/SR - CT HEAD/BRAIN WO IV CON - 06/10/23 11:53 EST Findings: No intra-axial mass, midline shift, hydrocephalus, or acute hemorrhage. Old small lacunar infarct at the right anterior brewer radiata. The visualized paranasal sinuses and mastoid air cells are normal. Old right inferior orbital wall blowout fracture. No acute fracture or dislocation. IMPRESSION: 1. No acute intracranial findings. This document has been electronically signed by: Kevin Cerda MD on 07/10/2024 21:16:32
[2024-07-10 19:39] LABS: MANUAL DIFF FLAG NO
[2024-07-10 19:41] LABS: Basophils Absolute Auto 0.1 X10*3/uL (0.0-0.2); Basophils Percent Auto 0.8 % (0-2); Eosinophils Absolute Auto 0.2 X10*3/uL (0.0-0.4); Eosinophils Percent Auto 1.2 % (0-4); Hematocrit 33.7 % (37.0-47.0); Hemoglobin 12.3 g/dl (12.0-16.0); Imm Gran Abs Auto 0.04 X10*3/uL (0.00-0.03); Imm Gran Pct Auto 0.3 % (0.0-0.4); Lymphocytes Absolute Auto 0.8 X10*3/uL (1.2-4.9); Lymphocytes Percent Auto 6.1 % (20-40); Mean Corpuscular HGB Conc 36.5 g/dl (31.0-35.0); Mean Corpuscular Hemoglobin 33.9 pg (27.0-33.0); Mean Corpuscular Volume 92.8 fL (80.0-98.0); Monocytes Absolute Auto 0.5 X10*3/uL (0.1-1.2); Monocytes Percent Auto 4.1 % (2-11); Neutrophils Absolute Auto 11.4 x10*3/uL (2.0-8.3); Neutrophils Percent Auto 87.5 % (45-73); Platelet Count 442 X10*3/uL (160-400); Red Blood Count 3.63 X10*6/uL (4.20-5.50); Red Cell Distribution Width 13.9 % (11.0-16.0)
--- OUTSIDE RECORDS SUMMARY | 2024-07-10 19:43 | XMS_ITS | Clinical Summary ---
Author Organization [facility] Address [address] [address] Phone Care Team Providers Care Fence Making Machine Operator Name Role Phone Mauricio Nolasco NP Primary Care Provider [phone] Allergies Active Allergy Reactions Criticality Noted Date Comments Amoxicillin Rash Low 11/26/2023 Cefaclor Rash Low 10/01/2021 Other reaction(s): rash Cephalosporins Rash Low 10/01/2021 Cephradine Rash Low 10/01/2021 Other reaction(s): rash Gabapentin Rash Low 10/18/2020 Rls Cephalexin Rash Low 11/26/2023 Penicillins Rash High 10/18/2020 Medications Dulaglutide 0.75 MG/0.5ML solution pen-injector Inject under the skin Active sacubitril-valsa rtan (Entresto) 24-26 MG per tablet Take 1 [...] spironolactone (ALDACTONE) 25 MG tablet 4 Active prochlorperazine (COMPAZINE) 5 MG tablet TAKE 1 TABLET(5 MG) BY MOUTH EVERY 6 HOURS NEEDED FOR NAUSEA OR VOMITING 30 tablet 2 5 Active prochlorperazine (COMPAZINE) 5 MG tablet Take 1 tablet (5 mg total) by mouth every 6 (six) hours if needed for nausea or vomiting 30 tablet 3 5 08/12/19 25 Active ondansetron ODT (ZOFRAN-ODT) 4 MG dispersible tablet Take 1 tablet (4 mg total) by mouth every 8 (eight) hours if needed for nausea or vomiting for up to 20 days 20 tablet 2 5 06/22/19 25 Active Problems Problem Noted Date Diagnosed Date [...] Encounters Date Type Department Care Team Description 07/06/2024 Treatment [facility] [address] [address] Aneesh Barrera MD End stage renal disease; Dependence on renal dialysis 06/20/2024 Treatment [facility] [place] [address] [address] Aneesh Barrera MD End stage renal disease; Dependence on renal dialysis 06/17/2024 Treatment [facility] [place] [address] [address] Aneesh Barrera MD End stage renal disease; Dependence on renal dialysis 06/08/2024 Treatment [facility] [place] [address] [address] Aneesh Barrera MD End stage renal disease; Dependence on renal dialysis 06/06/2024 Treatment [facility] [place] [address] [address] Aneesh Barrera MD End stage renal disease; Dependence on renal dialysis 06/01/2024 Treatment [facility] [address] [address] Aneesh Barrera MD 05/18/2024 Treatment [facility] [address] [address] Aneesh Barrera MD 05/16/2024 Treatment [facility] [address] [address] Aneesh Barrera MD 05/13/2024 Refill [facility] [address] [address] Aneesh Barrera MD 05/04/2024 Treatment [facility] [address] [address] Aneesh Barrera MD 04/20/2024 Treatment [facility] [address] [address] Aneesh Barrera MD 04/13/2024 Treatment [facility] [address] [address] Aneesh Barrera MD from Last 3 Months [...] Exam 10/18/2020 Diabetes: Visual Foot Exam 10/18/2020 Diabetes: Hemoglobin A1C 10/05/2024 025, 04/13/2024, 06/12/2021 Influenza Vaccine (Season Ended) 2024 05/22/19 23 Procedures Procedure Name Priority Date/Time Associated Diagnosis Comments HEMOGLOBIN A1C Routine 07/06/2024 3:00 AM EDT TRANSFERRIN SATURATION Routine 3:00 AM EDT PROTEIN, TOTAL, SERUM Routine 07/06/2024 3:00 AM EDT MAGNESIUM Routine 07/06/2024 3:00 AM EDT ELECTROLYTE PANEL Routine 07/06/2024 3:0 0 AM EDT LIH (HC) Routine 07/06/2024 3:00 AM EDT LIPID PANEL Routine 07/06/2024 3:00 AM EDT LACTATE DEHYDROGENASE Routine 07/06/2024 3:00 AM EDT CREATININE, SERUM Routine 07/06/2024 3:0 0 AM EDT GLUCOSE, RANDOM Routine 07/06/2024 3:00 AM EDT BILIRUBIN, TOTAL Routine 07/06/2024 3:00 AM EDT AST Routine 07/06/2024 3:00 AM EDT ALT Routine 07/06/2024 3:00 AM EDT CALCIUM PHOSPHORUS PRODUCT, ADJUSTED (HC) Routine 07/06/2024 3:00 AM EDT ALKALINE PHOSPHATASE Routine 07/06/2024 3:00 AM EDT PTH, INTACT Routine 07/06/2024 3:00 AM EDT FERRITIN Routine 07/06/2024 3:00 AM EDT KT/V NATURAL LOG, URR (HC) Routine 07/06/2024 3:00 AM EDT CBC AND DIFFERENTIAL Routine 07/06/2024 3:00 AM EDT FERRITIN Routine 06/08/2024 3:00 AM EST PROTEIN, TOTAL, SERUM Routine 06/08/2024 3:00 AM EST TRANSFERRIN SATURATION Routine 3:00 AM EST MAGNESIUM Routine 06/08/2024 3:00 AM EST ELECTROLYTE PANEL Routine 06/08/2024 3:0 0 AM EST LIH (HC) Routine 06/08/2024 3:00 AM EST LACTATE DEHYDROGENASE Routine 06/08/2024 3:00 AM EST GLUCOSE, RANDOM Routine 06/08/2024 3:00 AM EST CREATININE, SERUM Routine 06/08/2024 3:0 0 AM EST BILIRUBIN, TOTAL Routine 06/08/2024 3:00 AM EST ALT Routine 06/08/2024 3:00 AM EST AST Routine 06/08/2024 3:00 AM EST CALCIUM PHOSPHORUS PRODUCT, ADJUSTED (HC) Routine 06/08/2024 3:00 AM EST ALKALINE PHOSPHATASE Routine 06/08/2024 3:00 AM EST KT/V NATURAL LOG, URR (HC) Routine 06/08/2024 3:00 AM EST CBC AND DIFFERENTIAL Routine 06/08/2024 3:00 AM EST HEMOGLOBIN Routine 05/27/2024 3:00 AM EST FERRITIN Routine 05/13/2024 3:00 AM EST TRANSFERRIN [...] AND DIFFERENTIAL Routine 04/13/2024 3:00 AM EST from Last 3 Months Results * LIH (07/06/2024 3:00 AM EDT) Only the most recent of4 resultswithin the time period is included. Lipemia Normal Normal [facility] Icterus Normal Normal [facility] Hemolysis Normal Normal [facility] 07/06/2024 3:00 AM EDT 07/08/2024 2:50 PM EDT us Aneesh Barrera MD LAB [id number] ICITED RESULTS Final Result Performing Organization Address [facility] de Phone Number [facility]PS [facility] [address] [place] [address] * (ABNORMAL) Kt/V Natural Log, URR (07/06/2024 3:00 AM EDT) Only the most recent of4 resultswithin the time period is included. Pathologist [facility] Treatment Time 200 min [facility] Pre-Weight, lb 71.9 kg [facility] Post-Weight, lb 71.0 kg [facility] Ultrafiltration Rate 4 <=13 mL/kg/hr [facility] Comment: Recommend achieving Ultrafiltration Rate (UFR) <=10 mL/kg/hr References: Gio SILVERMAN et al. Kidney Int. 2010; 79(2):250-257 BUN Post Dialysis 12 7 - 25 mg/dL [facility] BUN 38(H) 7 - 25 mg/dL [facility] UREA REDUCTION RATIO (%) 68 >=65 % [facility] Kt/V Natural Log 1.28 >=1.2 [facility] 07/06/2024 3:00 AM EDT 07/08/2024 2:50 PM EDT us Aneesh Barrera MD LAB [id number] ICITED RESULTS Final Result Performing Organization Address [facility] de Phone Number [facility] [address] [place] [address] * (ABNORMAL) Calcium Phosphorus Product, Adjusted (07/06/2024 3:00 AM EDT) Only the most recent of4 resultswithin the time period is included. Albumin 4.3 3.6 - 5.4 g/dL [facility] Calcium 8.5(L) 8.6 - 10.3 mg/dL [facility] Phosphorus, Serum 6.6(H) 2.5 - 5.0 mg/dL [facility] Ca*PO4 56.1(A) <55.0 mg2/dL2 [facility] Calcium, Adjusted Total 8.5(L) 8.6 - 10.3 mg/dL [facility] CA*PO4 CORRCTD 56.1(A) <55.0 mg2/dL2 [facility] 07/06/2024 3:00 AM EDT 07/08/2024 2:50 PM EDT us Aneesh Barrera MD LAB [id number] ICITED RESULTS Final Result Performing Organization Address [facility] de Phone Number [facility] [address] [place] [address] * (ABNORMAL) TSAT (07/06/2024 3:00 AM EDT) Only the most recent of4 resultswithin the time period is included. Pathologist [facility] Iron 53 50 - 170 ug/dL [facility] Transferrin 146(L) 250 - 380 mg/dL [facility] TIBC 204(L) 211 - 406 ug/dL [facility] Iron Saturation (TSat) 26 22 - 52 % [facility] 07/06/2024 3:00 AM EDT 07/08/2024 2:50 PM EDT us Aneesh Barrera MD LAB BLOOD ORDERABLES Final Resul t Performing Organization Address [facility] de Phone Number [facility] [address] [place] [address] * (ABNORMAL) CBC and Differential (07/06/2024 3:00 AM EDT) Only the most recent of4 resultswithin the time period is included. [facility] DIFFERENTIAL MANUAL, 2 Not Indicated [facility] White Blood Cells 12.2(H) 4.0 - 10.0 K/uL [facility] RBC 3.80(L) 3.93 - 5.22 M/uL [facility] Hgb 12.8 11.2 - 15.7 g/dL [facility] Hemoglobin x 3 38.4 33.6 - 47.1 g/dL [facility] Hematocrit 37.5 34.1 - 44.9 % [facility] MCV 98.7(H) 79.4 - 94.8 fL [facility] MCH 33.7(H) 25.6 - 32.2 pg [facility] MCHC 34.1 32.2 - 35.5 g/dL [facility] Platelets 505(H) 182 - 369 K/uL [facility] RDW 13.4 11.7 - 14.4 % [facility] Neutrophils Relative 53.5 34.0 - 71.1 % [facility] Lymphocytes Relative 29.1 19.3 - 51.7 % [facility] Monocytes 9.7 4.7 - 12.5 % [facility] Eosinophils Relative 6.5(H) 0.7 - 5.8 % [facility] Basophils Relative 0.9 0.1 - 1.2 % [facility] Immature Granulocytes 0.3 0.0 - 1.0 % [facility] 07/06/2024 3:00 AM EDT 07/08/2024 2:34 PM EDT us Aneesh Barrear MD LAB BLOOD ORDERABLES Final Resul t Performing Organization Address [facility] de Phone Number [facility] [address] [place] [address] * (ABNORMAL) ALT (07/06/2024 3:00 AM EDT) Only the most recent of4 resultswithin the time period is included. ALT (SGPT) 8(L) 10 - 49 U/L [facility] 07/06/2024 3:00 AM EDT 07/08/2024 2:50 PM EDT us Aneesh Barrera MD LAB BLOOD ORDERABLES Final Resul t Performing Organization Address [facility] de Phone Number [facility] [address] [place] [address] * AST (07/06/2024 3:00 AM EDT) Only the most recent of4 resultswithin the time period is included. AST (SGOT) 14 <34 U/L [facility] 07/06/2024 3:00 AM EDT 07/08/2024 2:50 PM EDT us Aneesh Barrera MD LAB BLOOD ORDERABLES Final Resul t Performing Organization Address [facility] de Phone Number [facility] [address] [place] [address] * Protein, total (07/06/2024 3:00 AM EDT) Only the most recent of4 resultswithin the time period is included. Total Protein 6.7 6.4 - 8.9 g/dL [facility] 07/06/2024 3:00 AM EDT 07/08/2024 2:50 PM EDT us Aneesh Barrera MD LAB BLOOD ORDERABLES Final Resul t Performing Organization Address [facility] de Phone Number [facility] [address] [place] [address] * Alkaline phosphatase (07/06/2024 3:00 AM EDT) Only the most recent of4 resultswithin the time period is included. Pathologist [facility] Alkaline Phosphatase 103 46 - 116 U/L [facility] 07/06/2024 3:00 AM EDT 07/08/2024 2:50 PM EDT us Aneesh Barrera MD LAB BLOOD ORDERABLES Final Resul t Performing Organization Address [facility] de Phone Number [facility] [address] [place] [address] * PTH, Intact (07/06/2024 3:00 AM EDT) Only the most recent of2 resultswithin the time period is included. PTH, Intact 594 160 - 721 pg/mL [facility] Comment: Suggested (KDIGO) ESRD maintenance range is two to nine times the upper normal limit (80.1 pg/mL) for the laboratory. 07/06/2024 3:00 AM EDT 07/08/2024 2:50 PM EDT us Aneesh Barrera MD LAB BLOOD ORDERABLES Final Resul t Performing Organization Address [facility] de Phone Number [facility] [address] [place] [address] * Magnesium (07/06/2024 3:00 AM EDT) Only the most recent of4 resultswithin the time period is included. Magnesium 2.1 1.9 - 2.7 mg/dL [facility] 07/06/2024 3:00 AM EDT 07/08/2024 2:50 PM EDT us Aneesh Barrera MD LAB BLOOD ORDERABLES Final Resul t Performing Organization Address [facility] de Phone Number [facility] [address] [place] [address] * (ABNORMAL) Lactate dehydrogenase (07/06/2024 3:00 AM EDT) Only the most recent of4 resultswithin the time period is included. LDH 255(H) 120 - 246 U/L [facility] 07/06/2024 3:00 AM EDT 07/08/2024 2:50 PM EDT us Aneesh Barrera MD LAB BLOOD ORDERABLES Final Resul t Performing Organization Address [facility] de Phone Number [facility] [address] [place] [address] * Hemoglobin A1c (07/06/2024 3:00 AM EDT) Only the most recent of2 resultswithin the time period is included. Hemoglobin A1C 5.1 <5.7 % [facility] Comment: Methodology: Enzymatic HbA1c (NGSP %) ?Suggested Diagnosis >6.4% ? Diabetic 5.7-6.4% ?Pre-Diabetic <5.7% ? Non-Diabetic Diabetic Glucose Control Evaluation: Therapeutic action suggested at >8.0% ADA recommends a glycemic goal of <7.0% 07/06/2024 3:00 AM EDT 07/08/2024 2:34 PM EDT us Aneesh Barrera MD LAB BLOOD ORDERABLES Final Resul t Performing Organization Address [facility] de Phone Number [facility] [address] [place] [address] * Glucose, random (07/06/2024 3:00 AM EDT) Only the most recent of4 resultswithin the time period is included. Glucose 87 74 - 109 mg/dL [facility] 07/06/2024 3:00 AM EDT 07/08/2024 2:50 PM EDT us Aneesh Barrera MD LAB BLOOD ORDERABLES Final Resul t Performing Organization Address [facility] de Phone Number [facility] [address] [place] [address] * (ABNORMAL) Ferritin (07/06/2024 3:00 AM EDT) Only the most recent of4 resultswithin the time period is included. Ferritin 1,215(H) 10 - 291 ng/mL [facility] 07/06/2024 3:00 AM EDT 07/08/2024 2:50 PM EDT us Aneesh Barrera MD LAB BLOOD ORDERABLES Final Resul t Performing Organization Address [facility] de Phone Number [facility] [address] [place] [address] * (ABNORMAL) Creatinine, serum (07/06/2024 3:00 AM EDT) Only the most recent of4 resultswithin the time period is included. Creatinine 6.26(H) 0.55 - 1.02 mg/dL [facility] 07/06/2024 3:00 AM EDT 07/08/2024 2:50 PM EDT us Aneesh Barrera MD LAB BLOOD ORDERABLES Final Resul t Performing Organization Address [facility] de Phone Number [facility] [address] [place] [address] * Bilirubin, total (07/06/2024 3:00 AM EDT) Only the most recent of4 resultswithin the time period is included. Total Bilirubin 0.4 0.3 - 1.2 mg/dL [facility] 07/06/2024 3:00 AM EDT 07/08/2024 2:50 PM EDT us Aneesh Barrera MD LAB BLOOD ORDERABLES Final Resul t Performing Organization Address [facility] de Phone Number [facility] [address] [place] [address] * (ABNORMAL) Lipid panel (07/06/2024 3:00 AM EDT) Only the most recent of2 resultswithin the time period is included. Cholesterol 153 <200 mg/dL [facility] Comment: Optimal: ?<200 Borderline: ? 200-239 Higher Risk: ?>239 Triglycerides 89 <150 mg/dL [facility] Comment: Optimal: ?<150 Borderline High: ??150-199 High: ? 200-499 Very High: ?>499 HDL 59(A) >59 mg/dL [facility] Comment: Desirable: ?>59 Higher Risk: ?<40 LDL-Calc 76 <100 mg/dL [facility] Comment: Optimal: ?<100 Above Optimal: ?100-129 Borderline High: ??130-159 High: ? 160-189 Very High: ?>189 VLDL Cholesterol Justin 18 <30 mg/dL [facility] Comment: Optimal: ?<30 Borderline High: ??30-39 High: ? 40-99 Very High: ?>99 Chol/HDL Ratio 2.6 <3.3 [facility] Comment: Optimal: ?<3.3 Higher Risk: ?>6.2 07/06/2024 3:00 AM EDT 07/08/2024 2:50 PM EDT us Aneesh Barrera MD LAB BLOOD ORDERABLES Final Resul t Performing Organization Address [facility] de Phone Number [facility] [address] [place] [address] * Electrolyte panel (07/06/2024 3:00 AM EDT) Only the most recent of4 resultswithin the time period is included. Sodium 136 136 - 145 mEq/L [facility] Potassium 3.9 3.4 - 5.0 mEq/L [facility] Chloride 100 98 - 107 mEq/L [facility] Bicarbonate (CO2) 23 21 - 31 mEq/L [facility] Anion Gap 13 3 - 14 mEq/L [facility] 07/06/2024 3:00 AM EDT 07/08/2024 2:50 PM EDT Aneesh Barrera MD LAB BLOOD ORDERABLES Final Resul t Performing Organization Address [facility] de Phone Number [facility] [address] [place] [address] * (ABNORMAL) Hemoglobin (05/27/2024 3:00 AM EST) Only the most recent of3 resultswithin the time period is included. Hgb 10.6(L) 11.2 - 15.7 g/dL [facility] Hemoglobin x 3 31.8(L) 33.6 - 47.1 g/dL [facility] 05/27/2024 3:00 AM EST 05/28/2024 2:02 PM EST us Aneesh Barrera MD LAB BLOOD ORDERABLES Final Resul t [facility] [address] [place] [address] * Confirmation Test HCV (04/13/2024 3:00 AM EST) Hep C Ab Confirmation Not needed [facility] 04/13/2024 3:00 AM EST 04/14/2024 4:08 PM EST Aneesh Barrera MD LAB BLOOD ORDERABLES Final Resul t Performing Organization Address [facility] de Phone Number [facility] [address] [place] [address] * HEPATITIS C ABS W/REFLEX RNA DETECTR (04/13/2024 3:00 AM EST) Hep C Virus Ab Non-Reacti ve Non-Reacti ve [facility] 04/13/2024 3:00 AM EST 04/14/2024 3:50 PM EST Aneesh Barrera MD LAB [id number] ICITED RESULTS Final Result Performing Organization Address [facility] de Phone Number [facility] [address] [place] [address] * Hepatitis B Surface Ag w/Reflex Confirmation (04/13/2024 3:00 AM EST) Hep B Surface Antigen Negative Negative [facility] 04/13/2024 3:00 AM EST 04/14/2024 3:50 PM EST Aneesh Barrera MD LAB BLOOD ORDERABLES Final Resul t Performing Organization Address [facility] de Phone Number [facility] [address] [place] [address] * Aluminum level (04/13/2024 3:00 AM EST) Aluminum 3 1 - 20 ug/L [facility] 04/13/2024 3:00 AM EST 04/14/2024 3:46 PM EST us Aneesh Barrera MD LAB BLOOD ORDERABLES Final Resul t Performing Organization Address [facility] de Phone Number [facility] [address] [place] [address] * Hepatitis B Surface Antibody (04/13/2024 3:00 AM EST) Hep B Surface Antibody 163 mIU/mL [facility] Comment: Interpretation: <10: No Immunity >=10: Probable Immunity 04/13/2024 3:00 AM EST 04/14/2024 3:50 PM EST us Aneesh Barrera MD LAB BLOOD ORDERABLES Final Resul t Performing Organization Address [facility] de Phone Number [facility] [address] [place] [address] * Uric Acid (04/13/2024 3:00 AM EST) Uric Acid 5.0 2.3 - 6.6 mg/dL [facility] 04/13/2024 3:00 AM EST 04/14/2024 3:50 PM EST us Aneesh Barrera MD LAB BLOOD ORDERABLES Final Resul t Performing Organization Address [facility] de Phone Number [facility] [address] [place] [address] from Last 3 Months Insurance MEDICARE [place]ICAID [place] Member Subscriber Plan / Payer (Ef fective 2020-Present) Name:Angela Streeter Relation to Subscriber:Self Name:Angela Streeter Payer ID:Not on file Group ID:Not on file Type:Not on file Address: [place] [id number] [place] Care Teams Fence Making Machine Operator Relationship Specialty Start Date End Date Mauricio Nolasco NP [address] [place] [id number] PCP - General 04/16/20
--- OUTSIDE RECORDS SUMMARY | 2024-07-10 19:43 | XMS_ITS | Encounter Summary ---
Author Organization [facility] Address [address] [place] [address] Phone Care Team Providers Care Molecular Biology Director Name Role Phone Mauricio Nolasco NP Primary Care Provider [phone] Encounter Details Date Type Department Care Team (Late st Contact Info) Description 06/09/2023 Documentation Only [facility] [place], [address] [place] [address] [place], [place] [address] [place] [address] Social History Tobacco Use Types [...] on filedocumented in this encounter Care Teams Molecular Biology Director Relationship Specialty Start Date End Date Mauricio Nolasco NP [address] [place] [address] PCP - General 04/16/20 documented as of this encounter
--- OUTSIDE RECORDS SUMMARY | 2024-07-10 19:43 | XMS_ITS | Encounter Summary ---
Author Organization [facility] Address [address] [place] [address] Phone Care Team Providers Care Mixer Operator Hot Metal Name Role Phone Mauricio Nolasco NP Primary Care Provider [phone] Encounter Details Date Type Department Care Team (Late st Contact Info) Description 06/12/2021 Documentation Only [facility] [address] [place] [id number] Darrion Bertrand MD [address] [place] [address], [address] [place] [address] Social History Tobacco Use Types Packs/Day Years [...] on filedocumented in this encounter Care Teams Mixer Operator Hot Metal Relationship Specialty Start Date End Date Mauricio Nolasco NP [address] [place] [address] PCP - General 04/16/20 documented as of this encounter
--- OUTSIDE RECORDS SUMMARY | 2024-07-10 19:43 | XMS_ITS | Clinical Summary ---
Author Organization [facility] Address [address] [place] [address] Care Team Providers Care Vehicle Care Specialist Name Role Phone Unavailable Primary Care Provider Unavailabl e Surgical History Surgery Date Site/Laterality Comments OTHER SURGICAL HISTORY PROCEDURE: DENIES PREVIOUS SURGERY Medical History Medical History Date Comments Other and unspecified ovarian cyst 03/15/04 DX:Other and unspecified ovarian cyst Polycystic ovaries 06/30/2005 DX:Polycystic ovaries Morbid obesity ([facility]) 11/05/2006 DX:Morb id obesity ([facility]) Bipolar disorder 01/15/2009 DX:Bipolar diso rder ([facility]) Unspecified epilepsy without mention of intractable epilepsy [...]
--- OUTSIDE RECORDS SUMMARY | 2024-07-10 19:43 | XMS_ITS | Encounter Summary ---
Author Organization [facility] Address [address] [place] [address] Phone Care Team Providers Care Continuous Mining Operator Name Role Phone BreeMauricio grimes QUANG Primary Care Provider [phone] Encounter Details Date Type Department Care Team (Late st Contact Info) Description 07/23/2022 Telephone [facility] [address] [place] [address] Sharlene Pineda Social History Tobacco [...] - 07/23/2022 4:15 PM EDT [facility] [place] called to relay that this PT's script for Jardiance 10 mg can be available amanda 25 MG tab so that the PT doesn't have to take 2 1/2 tabs daily. documented in this encounter Plan of Treatment Not on file documented as of this encounter Visit Diagnoses Not on filedocumented in this encounter Care Teams Continuous Mining Operator Relationship Specialty Start Date End Date Mauricio Nolasco NP [address] [place] [id number] PCP - General 04/16/20 documented as of this encounter
--- OUTSIDE RECORDS SUMMARY | 2024-07-10 19:43 | XMS_ITS | Encounter Summary ---
Author Organization [facility] Facility Address [address] [place] [address] Care Team Providers Care Software Intern Name Role Phone Mauricio Nolasco NP Primary Care Provider [phone] Encounter Details Date Type Department Care Team (Latest Contact Info) Description 12/09/2023 Treatment Yudy Jj MD [address] [address] Social History Tobacco Use Types [...] Dialysis Note - Yudy Jj MD - 12/09/2023 12:00 AM EDT Patient: Angela Streeter : 1980 Note Type: Dialysis Rounds-Comp Service Date: 12/09/2023 This patient was personally seen for a complete visit as part of routine monthly dialysis care for end stage renal disease. Attending Wood Cutter: YUDY JJ MD Dialysis Location: [facility] Schedule: Shift: 1 OVERVIEW Patient is stable. HOME MEDICATIONS Medications reviewed. Current [facility] Outpatient Medications albuterol (PROVENTIL HFA;VENTOLIN HFA) inhaler Inhale 2 puffs every 6 (six) hours if needed for wheezing Start Date: BASAGLAR KWIKPEN 100 UNIT/ML SC SOPN Inject under the skin every night Start Date: carvedilol (Coreg) 25 MG tablet [...] 1 tablet in the evening. Start Date: tamsulosin (FLOMAX) 24 hr capsule 0.4 mg Take 0.4 mg by mouth 1 (one) time each day Start Date: Current [facility] Allergies Allergen: AMOXICILLIN Reaction: Rash Severity: Low Allergen: CEFACLOR Reaction: Rash Severity: Low Allergen: CEPHALOSPORINS Reaction: Rash Severity: Low Allergen: CEPHRADINE Reaction: Rash Severity: Low Allergen: GABAPENTIN Reaction: Rash Severity: Low Allergen: KEFLEX [CEPHALEXIN] Reaction: Rash Severity: Low Allergen: PENICILLINS Reaction: Rash Severity: High BP AND FLUID ASSESSMENT Acceptable blood pressure. Fluid status acceptable. ADEQUACY ASSESSMENT Target met. Prescription compliance acceptable. Continue with greater than 3x more frequent dialysis prescription. BUN 76 (06/13/23) 36 (01/13/23) Creatinine 3.3 (01/13/23) Bicarbonate (CO2) 21 (06/13/23) Sodium 129 (06/13/23) 137 (01/13/23) ACCESS ASSESSMENT Vascular access examined. ANEMIA ASSESSMENT KARON adjusted per protocol. Iron adjusted per protocol. Hgb 11.2 (01/13/23) Iron Saturation (TSat) 21 (01/13/23) Ferritin 131 (01/13/23) Iron 63 (01/13/23) TIBC 295 (01/13/23) MCV 94.6 (01/13/23) Platelets 306 (01/13/23) BMM ASSESSMENT Bone and mineral metabolism parameters reviewed. Calcium 7.5 06/13/23 9.0 01/13/23 Phosphorus, Serum 4.3 01/13/23 Magnesium 2.4 01/13/23 NUTRITION ASSESSMENT Albumin at goal. Albumin 4.4 01/13/23 Potassium 5.2 06/13/23 5.4 01/13/23 PHYSICAL EXAM Exam performed. Vital Signs Reviewed. Lungs - Clear. CV - Blood pressure noted. CV - RRR. No edema. EXT - No ulcers. ADDITIONAL LABS White Blood Cells 10.5 (01/13/23) Hep B Surface Antibody REACTIVE (06/17/23) Signed by: Yudy Jj on 12/09/2023 at 12:39:10 PM Transcribed by: Yudy Jj on 12/09/2023 at 12:39:10 PM documented in this encounter Plan of Treatment Not on file documented as of this encounter Visit Diagnoses Not on filedocumented in this encounter Care Teams Software Intern Relationship Specialty Start Date End Date Mauricio Nolasco NP [address] [place] [address] PCP - General 04/16/20 documented as of this encounter
--- OUTSIDE RECORDS SUMMARY | 2024-07-10 19:43 | XMS_ITS | Encounter Summary ---
Author Organization [facility] Address [address] [address] Phone Care Team Providers Care Optical Glass Wet Inspector Name Role Phone LaurayarielMauricio NP Primary Care Provider [phone] Encounter Details Date Type Department Care Team (Late st Contact Info) Description 07/06/2024 Treatment [facility] [address] [address] Yudy Jj MD [address] [address] End stage renal disease; Dependence on renal dialysis Social History Tobacco Use Types Packs/Day Years [...] Dialysis Note - Yudy Jj MD - 07/06/2024 12:00 AM EDT Patient: Angela Streeter : 1980 Note Type: Dialysis Rounds-Comp Service Date: 07/06/2024 This patient was personally seen for a complete visit as part of routine monthly dialysis care for end stage renal disease. Attending Gift Basket Packer: YUDY JJ MD Dialysis Location: [facility] Schedule: Shift: 1 OVERVIEW Patient is stable. HOME MEDICATIONS Medications reviewed. Current [facility] Outpatient Medications albuterol (PROVENTIL HFA;VENTOLIN HFA) inhaler [...] BP AND FLUID ASSESSMENT Acceptable blood pressure. ADEQUACY ASSESSMENT Kt/V, Natural Log 1.48 (06/08/24) 1.46 (05/13/24) 1.40 (04/13/24) UREA REDUCTION RATIO (%) 71 (06/08/24) 71 (05/13/24) 69 (04/13/24) BUN 48 (06/08/24) 56 (05/13/24) 42 (04/13/24) BUN Post Dialysis 14 (06/08/24) 16 (05/13/24) 13 (04/13/24) Creatinine 5.07 (06/08/24) 4.97 (05/13/24) 4.56 (04/13/24) Bicarbonate (CO2) 20 (06/08/24) 19 (05/13/24) 21 (04/13/24) Sodium 136 (06/08/24) 134 (05/13/24) 137 (04/13/24) Target met. Prescription compliance acceptable. Continue with greater than 3x more frequent dialysis prescription. ACCESS ASSESSMENT Vascular access examined. ANEMIA ASSESSMENT Hgb 10.4 (06/08/24) 10.6 (05/27/24) 11.3 (05/13/24) Iron Saturation (TSat) 23 (06/08/24) 40 (05/13/24) 18 (04/13/24) Ferritin 751 (06/08/24) 1,290 (05/13/24) 554 (04/13/24) Iron 43 (06/08/24) 78 (05/13/24) 36 (04/13/24) TIBC 189 (06/08/24) 193 (05/13/24) 203 (04/13/24) MCV 101.4 (06/08/24) 97.3 (05/13/24) 101.1 (04/13/24) Platelets 386 (06/08/24) 353 (05/13/24) 355 (04/13/24) KARON adjusted per protocol. Iron adjusted per protocol. BMM ASSESSMENT Calcium, Adjusted Total 8.1 06/08/24 8.6 05/13/24 8.4 04/13/24 Calcium 7.9 06/08/24 8.6 05/13/24 8.4 04/13/24 Phosphorus, Serum 6.6 06/08/24 4.0 05/13/24 4.0 04/13/24 Ca*PO4 52.1 06/08/24 34.4 05/13/24 33.6 04/13/24 PTH, Intact 367 04/13/24 Magnesium 1.9 06/08/24 2.1 05/13/24 2.0 04/13/24 Alkaline Phosphatase 91 06/08/24 129 05/13/24 98 04/13/24 Aluminum 3 04/13/24 Bone and mineral metabolism parameters reviewed. NUTRITION ASSESSMENT Albumin 3.8 06/08/24 4.1 05/13/24 4.1 04/13/24 Potassium 4.5 06/08/24 4.1 05/13/24 4.4 04/13/24 Hemoglobin A1C 5.0 04/13/24 Albumin not at goal. PHYSICAL EXAM Exam not performed. ADDITIONAL LABS White Blood Cells 15.0 (06/08/24) 7.9 (05/13/24) 11.0 (04/13/24) Cholesterol 123 (04/13/24) HDL 48 (04/13/24) LDL-Calc 63 (04/13/24) Triglycerides 62 (04/13/24) Hep B Surface Antibody 163 (04/13/24) Uric Acid 5.0 (04/13/24) Signed by: YUDY JJ MD on 07/06/2024 at 08:41:20 AM documented in this encounter Plan of Treatment Not on file documented as of this encounter Visit Diagnoses Diagnosis End stage renal disease Dependence on renal dialysis documented in this encounter Care Teams Optical Glass Wet Inspector Relationship Specialty Start Date End Date Mauricio Nolasco NP [address] [place] [id number] PCP - General 04/16/20 documented as of this encounter
--- NOTE | 2024-07-10 19:59 | ED_ITS ---
HPI - Seizure General Chief Complaint: Seizure Stated Complaint: siezure 15min, fall thursday bruised Time Seen by Provider: 07/10/24 19:40 Source: patient Mode of arrival: ambulatory Limitations: no limitations History of Present Illness ED Provider: HPI Narrative: Patient's history of end-stage renal disease on dialysis Thursday last Thursday she missed her dialysis for family reasons in the evening patient was trying to go upstairs was feeling very weak fell backwards hitting her head with a multiple steps does not remember exactly what happened no loss of consciousness patient was doing much better yesterday will adjust prior to arrival at 16:00 patient was talking to the family and had a witnessed seizure lasted for few minutes no tongue injury patient had a history of seizures when she was very young otherwise did not have any seizure for long time on arrival patient's blood pressure was elevated to 246/126 patient has vomited her evening clonidine post seizure Related Data Home Medications ?Medication ?Instructions ?Recorded ?Confirmed carvedilol 25 mg tablet 50 mg PO BID 03/20/22 05/22/24 nifedipine 90 mg tablet,extended 1 tab PO BID 04/22/22 05/22/24 release 24 hr clotrimazole-betamethasone 1 1 appl topical BID PRN Rash 05/22/24 05/22/24 %-0.05 % topical cream famotidine 20 mg tablet 20 mg PO DAILY PRN Heartburn 05/22/24 05/22/24 prochlorperazine maleate 5 mg 5 mg PO BID 05/22/24 05/22/24 tablet sacubitril 24 mg-valsartan 26 mg 1 tab PO DAILY 05/22/24 05/22/24 tablet (Entresto) spironolactone 25 mg tablet 25 mg PO DAILY 05/22/24 05/22/24 vitamin B complex-vitamin C-folic 1 tab PO DAILY 05/22/24 05/22/24 acid 0.8 mg tablet (Jaclyn-Elias) Previous Rx's ?Medication ?Instructions ?Recorded lancets 28 gauge (FreeStyle #100 ea 03/20/22 Lancets) blood pressure test kit-large #1 ea 03/25/22 blood sugar diagnostic (FreeStyle #100 ea 05/18/23 Lite Strips) blood-glucose meter (FreeStyle #1 ea 05/18/23 Lite Meter kit) blood sugar diagnostic (FreeStyle #100 ea 06/09/23 Lite Strips) blood-glucose meter (FreeStyle #1 ea 06/09/23 Lite Meter kit) lancets 28 gauge (FreeStyle #100 ea 06/09/23 Lancets) clonidine HCl 0.2 mg tablet 0.2 mg PO BID #180 tabs 06/19/23 dulaglutide 1.5 mg/0.5 mL 1.5 mg (0.5 mL) subcut TH #2 mL 09/16/23 subcutaneous pen injector (TrulicFoodily) pen needle, diabetic 32 gauge x #100 ea 10/04/23 1 nicotine 14 mg/24 hr daily 1 patch transdermal DAILY #28 ea 04/15/24 transdermal patch (Nicoderm CQ) levofloxacin 500 mg tablet 500 mg PO Q48H #2 tabs 05/25/24 albuterol sulfate 90 mcg/actuation 1 inh inhalation QID PRN Wheezing 06/05/24 aerosol inhaler 30 days #8.5 grams Allergies Allergy/AdvReac Type Severity Reaction Status Date / Time amoxicillin Allergy Unknown rash Verified 07/10/24 19:10 cefaclor [From Ceclor] Allergy Unknown RASH Verified 07/10/24 19:10 cephalexin Allergy Unknown rash Verified 07/10/24 19:10 Cephalosporins Allergy Unknown RASH ALL Verified 07/10/24 19:10 [CEPHALOSPORINS] OVER cephradine [From VELOSEF] Allergy Unknown RASH Verified 07/10/24 19:10 Penicillins [PENICILLINS] Allergy Unknown RASH Verified 07/10/24 19:10 gabapentin [GABAPENTIN] AdvReac Unknown RESTLESS Verified 07/10/24 19:10 LEGS, Body becomes very uncomfortable Review of Systems 2 Review of Systems: Yes all other systems are reviewed and are negative [facility] Past Medical History Medical History Legally blind Vascular dialysis catheter in place Hypertensive retinopathy Macular edema Diabetic retinopathy Hyperglycemia CHF (congestive heart failure) Hypertensive urgency Malignant hypertension CKD (chronic kidney disease) Heart block AV second degree Hypersomnia Cardiomyopathy CKD (chronic kidney disease) stage 2, GFR 60-89 ml/min Nicotine dependence, cigarettes, uncomplicated (~1999) Eclampsia Fatty liver Heart failure, unspecified (~09/2020) History of DVT (deep vein thrombosis) Diabetes mellitus Migraines Sjogren's disease Lupus Rheumatoid arthritis High cholesterol Anxiety PTSD (post-traumatic stress disorder) Bipolar 1 disorder H/O mixed connective tissue disease HTN (hypertension) Surgical History History of H/O eye surgery History of hip surgery Tubal ligation status History of bronchoscopy (~11/2020) History of cholecystectomy (~05/2014) Family History Family History Father Substance use disorder Mental health disorder Brother Substance use disorder Mental health disorder Brother Substance use disorder Mental health disorder Other Diabetes HTN (hypertension) Social History Social History Household Members: Family Household Members Other:: 3 Housing: House Are you a primary progressive care unit registered nurse to a significant other at home: No Do you presently have visiting nurse or other home services: Yes (c s s representative) Alcohol intake: never Patient Tobacco Use Status: Current everyday Tobacco user Tobacco use type: Cigarette Cigarette Packs Per Day: 1 Cigarettes Per Day: 5 Years Smoked: 20 Smoked in Last 30 Days: Yes e-Cigarette/Vaping Use: Never Used Second Hand Smoke Exposure: No Use of substances other than those prescribed or required for medical reasons: Yes Substance Use Type: Crack/Cocaine and Marijuana Advance Directives: Yes Advance Directives on File: Yes Advance Directives Date on File: 06/03/21 Patient : No service: No Current occupational status: disabled Cognitive needs: No Hearing needs: No Vision needs: No Physical Exam 2 Vital Signs: Vital Signs: Last Vital Signs Temp 98.6 F 07/10/24 23:55 Pulse 80 07/10/24 23:55 Resp 17 07/10/24 23:55 BP 159/77 H 07/10/24 23:55 Pulse Ox 97 07/10/24 23:55 O2 Del Method Room Air 07/10/24 23:55 BMI result Body Mass Index 24.2 Appearance: Alert. Oriented X3. No acute distress. Eyes: PERRLA, No Nystagmus ENT: Pharynx normal. Oral Mucosa moist soft tissue swelling of the right temporal area Neck: Normal inspection. Neck supple. No midline tenderness CVS: Normal heart rate and rhythm. Pulses normal. Respiratory: No respiratory distress. Equal air entry bilateral, no wheezing/rales/rhonchi Abdomen: Soft and nontender. Bowel sounds are present, no mass palpable, no CVA tenderness Skin: Skin warm and dry. Normal skin color. Normal skin turgor. Extremities: No lower extremity edema. No calf tenderness Neuro: Oriented X 3. No motor deficit. No sensory deficit.No cerebellar signs , cranial nerves II-XII intact Medications Administered Generic Name Dose Route Start Last Admin Trade Name Freq PRN Reason Stop Dose Admin Sodium Chloride 3 ml 07/11/24 00:00 07/11/24 00:00 0.9 % Sodium Chloride Flush 3 Ml Syringe IVFLUSH Not Given QSHIFT BRIAN Discontinued Medications Generic Name Dose Route Start Last Admin Trade Name Freq PRN Reason Stop Dose Admin Clonidine HCl 0.2 mg 07/10/24 21:58 07/10/24 22:13 Clonidine Hcl 0.2 Mg Tablet PO 07/10/24 21:59 0.2 mg ONCE ONE Administration Protocol Levofloxacin 500 mg in 100 mls @ 100 mls/hr 07/10/24 22:20 07/11/24 00:25 Levaquin IV 07/10/24 23:19 Infused ONCE ONE Infusion Levetiracetam 1,000 mg in 100 mls @ 400 mls/hr 07/10/24 22:32 07/10/24 23:11 Keppra IV 07/10/24 22:46 Infused ONCE ONE Infusion Labetalol HCl 20 mg 07/10/24 21:57 07/10/24 22:14 Labetalol Hcl 100 Mg/20 Ml Vial IVPUSH 07/10/24 21:58 20 mg ONCE ONE Administration Morphine Sulfate 4 mg 07/10/24 22:25 07/10/24 22:46 Morphine Sulfate 4 Mg/Ml Cartridge IVPUSH 07/10/24 22:26 4 mg ONCE ONE Administration Protocol Ondansetron HCl 4 mg 07/10/24 22:32 07/10/24 22:46 Ondansetron Hcl 4 Mg/2 Ml Vial IVPUSH 07/10/24 22:33 4 mg ONCE ONE Administration Medical Decision Making Medical Decision Making [facility] Narrative: Patient with end-stage renal disease missed the dialysis with history of hypertension came here after she fell 3 days ago and had a seizure today patient did have history of seizure when she was young second-degree to medications will give a dose of Keppra blood pressure improved after clonidine and labetalol will admit to the medical service for dialysis in a.m. and new onset seizure CT scan of the head and C-spine negative for acute although patient has a UTI will prescribe Levaquin which was sensitive to previous Klebsiella in the past but resistant to E coli hospitalist aware Differential Diagnosis Differential Diagnoses: The differential diagnosis associated with the presentation includes Admission/Observation Consideration of admission/observation: Escalation of care including admission/observation considered Consult Healthcare Provider Management of the patient was discussed with: Hospitalist Lab Data MDM Lab Attestation statement: I reviewed the patient's lab results. 07/10/24 19:32 07/10/24 19:32 Labs: Lab Results 07/10/24 07/10/24 07/10/24 Range/Units 19:32 21:32 22:40 WBC 13.0 H (4.8-10.8) X10*3/uL RBC 3.63 L D (4.20-5.50) X10*6/uL Hgb 12.3 D (12.0-16.0) g/dl Hct 33.7 L D (37.0-47.0) % MCV 92.8 (80.0-98.0) fL MCH 33.9 H (27.0-33.0) pg MCHC 36.5 H (31.0-35.0) g/dl RDW 13.9 (11.0-16.0) % Plt Count 442 H (160-400) X10*3/uL MPV 9.0 L (9.4-12.3) fL Immature Gran % (Auto) 0.3 (0.0-0.4) % Neut % (Auto) 87.5 H (45-73) % Lymph % (Auto) 6.1 L (20-40) % [place] % (Auto) 4.1 (2-11) % Eos % (Auto) 1.2 (0-4) % Baso % (Auto) 0.8 (0-2) % Lymph # (Auto) 0.8 L (1.2-4.9) X10*3/uL [place] # (Auto) 0.5 (0.1-1.2) X10*3/uL Eos # (Auto) 0.2 (0.0-0.4) X10*3/uL Baso # (Auto) 0.1 (0.0-0.2) X10*3/uL Abs Immat Gran (auto) 0.04 H (0.00-0.03) X10*3/uL Absolute Neuts (auto) 11.4 H (2.0-8.3) x10*3/uL Absolute Nucleated RBC 0.000 (0.0-0.012) X10*3/uL Nucleated RBC % (auto) 0.0 (0.0-0.2) /100WBC Hold Purple Top SEE NOTE PT 11.3 (10.9-12.4) SEC INR 1.0 (0.9-1.1) APTT 32.6 D (26.0-36.8) SEC Hold Blue Top SEE NOTE Sodium 137 (135-145) mmol/L Potassium 3.5 (3.3-5.1) mmol/L Chloride 102 (96-108) mmol/L Carbon Dioxide 18 L (22-29) mmol/L Anion Gap 21 H (12-20) BUN 52 H (9-16) mg/dL Creatinine 7.74 H* (0.5-1.4) mg/dL Estim Creat Clear Calc 8.8 Estimated GFR 6 Random Glucose 150 H (60-115) mg/dL Lactic Acid 0.8 (0.5-2.0) mmol/L Calcium 8.0 L D (8.4-10.2) mg/dL Magnesium 2.2 (1.6-2.6) mg/dL Total Bilirubin 0.6 (0.0-1.0) mg/dL AST 22 (5-31) U/L ALT 8 (0-31) U/L Alkaline Phosphatase 111 (39-117) U/L Troponin I High Sens 40.3 H (<3.5-17.0) ng/L Total Protein 7.9 (6.5-8.0) g/dL Albumin 4.8 (3.5-5.0) g/dL Urine Color BROWN Urine Appearance Turbid Urine pH 7.5 (5.0-9.0) Ur Specific [place] 1.010 (1.005-1.025) Urine Protein 300 (3+) H (Neg-Trace) mg/dL Urine Glucose (UA) 250 H (Negative) mg/dL Urine Ketones Trace (Negative) mg/dL Urine Blood Large (3+) H (Negative) Urine Nitrite Positive H (Negative) Ur Leukocyte Esterase Small (1+) H (Negative) Urine RBC >20 H (0-2) /HPF Urine WBC 6-10 (0-5) /HPF Ur Squamous Epith Cells 0-2 (0-2) /HPF Urine Bacteria 2+ (None Seen) Hyaline Casts 0-2 (0-2) /LPF Radiology Impression Discussion of test interpretation with radiology: I have reviewed the radiologist's reading. Radiologist Impression: No acute finding Critical Care Time Critical Care Time Critical Care Time: Yes Total Critical Care Time: 60 Attestation: The patient was critically ill with a high probability of imminent or life threatening deterioration. I spent greater than ?65??minutes of discontinuous time evaluating the patient,delivering critical care at the bedside, discussing and evaluating pertinent data with consultants. Critical care time does not include time spent performing separately billable procedures or teaching. Total time spent performing critical care was 60 ???minutes. Discharge Plan Discharge Clinical Impression: Hypertensive emergency, ESRD (end stage renal disease), UTI (urinary tract infection), New onset seizure Patient Disposition: Admitted As Inpatient
[2024-07-10 20:05] LABS: Troponin-I High Sensitivity 40.3 ng/L (<3.5-17.0)
[2024-07-10 20:15] LABS: Alanine Aminotransferase 8 U/L (0-31); Albumin Level 4.8 g/dL (3.5-5.0); Alkaline Phosphatase 111 U/L (39-117); Anion Gap 21 (12-20); Aspartate Amino Transferase 22 U/L (5-31); Bilirubin Total 0.6 mg/dL (0.0-1.0); Blood Urea Nitrogen 52 mg/dL (9-16); Carbon Dioxide 18 mmol/L (22-29); Chloride 102 mmol/L (96-108); Creatinine Clr Calc Pharmacy 8.8; Estimated Glomerular Filt Rate 6; Glucose Random 150 mg/dL (60-115); Magnesium 2.2 mg/dL (1.6-2.6); Potassium 3.5 mmol/L (3.3-5.1); Sodium 137 mmol/L (135-145); Total Protein 7.9 g/dL (6.5-8.0)
[2024-07-10 20:37] LABS: Prothrombin Time 11.3 SEC (10.9-12.4)
[2024-07-10 20:40] LABS: Partial Thromboplastin Time 32.6 SEC (26.0-36.8)
--- NOTE | 2024-07-10 21:13 | MHC.EDTECH ---
pt states she had kidney problems and is unable to make urine or very very little. pt has siezure pads on stretcher. pt alert calm and comfortable at this time.
[2024-07-10 21:45] LABS: Appearance Urine Turbid; Color Urine BROWN; Glucose Urine UA 250 mg/dL (Negative); Leukocyte Esterase Urine Small (1+) (Negative); Nitrite Urine Positive (Negative); PH 7.5 (5.0-9.0); UMIC TRIGGER UACC YES; Urine Blood Large (3+) (Negative); Urine Ketones Trace mg/dL (Negative); Urine Protein 300 (3+) mg/dL (Neg-Trace)
[2024-07-10 21:49] LABS: RBC Urine >20 /HPF (0-2); Squamous Epithelial Cell Urine 0-2 /HPF (0-2); UACC Culture Trigger YES
[2024-07-10 21:50] LABS: Bacteria Urine 2+ (None Seen); Hyaline Casts Urine 0-2 /LPF (0-2)
[2024-07-10] MEDS: cloNIDine HCL 0.2 MG TABLET PO (22:13)
[2024-07-10] MEDS: Labetalol HCL 100 MG/20 ML VIAL 20 MG IVPUSH (22:14)
[2024-07-10] MEDS: levETIRAcetam in NaCl (iso-os) 1,000 MG/100 ML PIGGYBACK 400 MG IV (22:46)
[2024-07-10] MEDS: Morphine Sulfate 4 MG/ML CARTRIDGE IVPUSH (22:46)
[2024-07-10] MEDS: ondansetron HCL 4 MG/2 ML VIAL IVPUSH (22:46)
[2024-07-10] MEDS: levoFLOXacin/D5W 500 MG/100 ML PIGGYBACK 100 MG IV (23:11)
[2024-07-10 23:18] LABS: Lactic Acid 0.8 mmol/L (0.5-2.0)
[2024-07-11] VITALS (8 sets, daily range): BP systolic 139–178; BP diastolic 74–111; PULSE 63–77; RESP 11–18; TEMP 36.4–36.9; O2SAT 96–100
--- NOTE | 2024-07-11 00:07 | PM.IMHP ---
History of Present Illness Date of Service: 07/10/24 Attending physician on admission: Marcos Wilcox Chief Complaint: seizure Patient is a 44-year-old female with a past medical history significant for HTN, ESRD on HD MWF, solitary seizure as child, HFpEF history DVT type 2 diabetes lupus, Sjogren's, mood disorder, substance use disorder presented to ED after a seizure around 16:00 The pt reports she missed dialysis Thursday morning due to family issues and felt weak later in the day and fell backwards down the stairs at home. she denies head strike or LOC. She also reports that she has severely elevated blood pressure and missed taking her blood pressure medications completely today. She takes clonidine, nifedipine, spironolactone, Entresto and carvedilol. today she had a witnessed seizure around 16:00, which prompted her ED visit. she has had a seizure one other time as a child, has never been on seizure medications. she notes mild blurry vision upon arrival as well as cocaine use today just prior to arrival. She does not produce much urine, and denies any urinary symptoms including frequency, urgency dysuria. Review of Systems Constitutional: Constitutional: Denies body ache(s), Denies chills, Denies fatigue, Denies fever(s) and Denies headache(s) Eyes: Eyes: Reports change in vision and Denies photophobia ENT: Denies headache(s), Denies nasal congestion, Denies nasal discharge, Denies neck pain and Denies sore throat Cardiovascular: Cardiovascular: Denies chest pain, Denies rapid heart rate, Denies leg edema, Denies lightheadedness and Denies dyspnea Respiratory: Respiratory: Denies cough, Denies dyspnea and Denies wheezing Gastrointestinal: Gastrointestinal: Denies diarrhea, Denies nausea and Denies vomiting Genitourinary: Comments: oliguria Musculoskeletal: Musculoskeletal: Denies myalgias, Denies neck pain, Denies numbness and Denies tingling Integumentary/Breasts: Skin/Breast: Denies rash Neurologic: Denies confusion, Denies headache(s), Denies numbness, Reports convulsions, Reports seizure-like activity and Denies tingling Psychiatric: Psychiatric: Denies confusion Endocrine: Endocrine: Denies fatigue and Denies flushing Hematologic/Lymphatic: Hematologic/Lymphatic: Denies easy bleeding and Denies easy bruising Allergic/Immunologic: Allergic/Immunologic: Denies wheezing [facility] Medical History Legally blind Vascular dialysis catheter in place Hypertensive retinopathy Macular edema Diabetic retinopathy Hyperglycemia CHF (congestive heart failure) Hypertensive urgency Malignant hypertension CKD (chronic kidney disease) Heart block AV second degree Hypersomnia Cardiomyopathy CKD (chronic kidney disease) stage 2, GFR 60-89 ml/min Nicotine dependence, cigarettes, uncomplicated (~1999) Eclampsia Fatty liver Heart failure, unspecified (~09/2020) History of DVT (deep vein thrombosis) Diabetes mellitus Migraines Sjogren's disease Lupus Rheumatoid arthritis High cholesterol Anxiety PTSD (post-traumatic stress disorder) Bipolar 1 disorder H/O mixed connective tissue disease HTN (hypertension) Family History Father Substance use disorder Mental health disorder Brother Substance use disorder Mental health disorder Brother Substance use disorder Mental health disorder Other Diabetes HTN (hypertension) Surgical History History of H/O eye surgery History of hip surgery Tubal ligation status History of bronchoscopy (~11/2020) History of cholecystectomy (~05/2014) Social History Household Members: Family Household Members Other:: 3 Housing: House Are you a primary pediatric critical care nurse to a significant other at home: No Do you presently have visiting nurse or other home services: Yes (emergency medical services coordinator) Alcohol intake: never Patient Tobacco Use Status: Current everyday Tobacco user Tobacco use type: Cigarette Cigarette Packs Per Day: 1 Cigarettes Per Day: 5 Years Smoked: 20 Smoked in Last 30 Days: Yes e-Cigarette/Vaping Use: Never Used Second Hand Smoke Exposure: No Use of substances other than those prescribed or required for medical reasons: Yes Substance Use Type: Crack/Cocaine and Marijuana Advance Directives: Yes Advance Directives on File: Yes Advance Directives Date on File: 06/03/21 Patient : No service: No Current occupational status: disabled Cognitive needs: No Hearing needs: No Vision needs: No Narrative: Smokes 1/2 pack per day, occasional cocaine use, last use today. No alcohol Meds Allergies Allergy/AdvReac Type Severity Reaction Status Date / Time amoxicillin Allergy Unknown rash Verified 07/10/24 19:10 cefaclor [From Ceclor] Allergy Unknown RASH Verified 07/10/24 19:10 cephalexin Allergy Unknown rash Verified 07/10/24 19:10 Cephalosporins Allergy Unknown RASH ALL Verified 07/10/24 19:10 [CEPHALOSPORINS] OVER cephradine [From VELOSEF] Allergy Unknown RASH Verified 07/10/24 19:10 Penicillins [PENICILLINS] Allergy Unknown RASH Verified 07/10/24 19:10 gabapentin [GABAPENTIN] AdvReac Unknown RESTLESS Verified 07/10/24 19:10 LEGS, Body becomes very uncomfortable Active Medications: Current Medications Acetaminophen (Acetaminophen 325 Mg Tablet) 975 mg PO Q6H PRN PRN Reason: Pain, Mild 1-3,fever,headache Calcium Carbonate (Calcium Carbonate 750 Mg Tab.Chew) 750 mg PO Q4H PRN PRN Reason: Heartburn Dextrose (Dextrose 50 % 25 Gm/50 Ml Syringe) 25 gm IVPUSH Q15M PRN; Protocol PRN Reason: per Hypoglycemia Standing Ord. Glucose (Glucose Gel 15 Gm Gel..Gram.) 15 gm PO Q15M PRN; Protocol PRN Reason: per Hypoglycemia Standing Ord. Heparin Sodium (Porcine) (Heparin Sodium,Porcine 5,000 Unit/Ml Vial) 5,000 unit SUBCUT Q8H [facility] Insulin Human Lispro (Insulin Lispro 100 Unit/Ml 3 Ml Vial) 0 unit SUBCUT QIDACHS [facility]; Protocol Magnesium Hydroxide (Milk Of Magnesia 30 Ml Oral.Susp) 30 ml PO DAILY PRN PRN Reason: Constipation Melatonin (Melatonin 3 Mg Tablet) 6 mg PO BEDTIME PRN PRN Reason: Insomnia Ondansetron HCl (Ondansetron Hcl 4 Mg/2 Ml Vial) 4 mg IVPUSH Q8H PRN PRN Reason: Nausea and Vomiting Oxycodone HCl (Oxycodone Hcl Immed Release 5 Mg Tablet) 5 mg PO Q6H PRN PRN Reason: Pain, Moderate(Pain Scale 4-6) Sodium Chloride (0.9 % Sodium Chloride Flush 3 Ml Syringe) [facility] Last Admin: 07/11/24 00:00 Dose: Not Given Home Medications ?Medication ?Instructions ?Recorded ?Confirmed ?Last Taken ?Type carvedilol 25 mg tablet 50 mg PO BID 03/20/22 05/22/24 09/03/23 History nifedipine 90 mg tablet,extended 1 tab PO BID 04/22/22 05/22/24 09/03/23 History release 24 hr clotrimazole-betamethasone 1 1 appl topical BID PRN Rash 05/22/24 05/22/24 Unknown History %-0.05 % topical cream famotidine 20 mg tablet 20 mg PO DAILY PRN Heartburn 05/22/24 05/22/24 Unknown History prochlorperazine maleate 5 mg 5 mg PO BID 05/22/24 05/22/24 Unknown History tablet sacubitril 24 mg-valsartan 26 mg 1 tab PO DAILY 05/22/24 05/22/24 Unknown History tablet (Entresto) spironolactone 25 mg tablet 25 mg PO DAILY 05/22/24 05/22/24 Unknown History vitamin B complex-vitamin C-folic 1 tab PO DAILY 05/22/24 05/22/24 Unknown History acid 0.8 mg tablet (Jaclyn-Elias) Physical Exam Vital Signs and Narrative: Vital Signs: Last Vital Signs Temp 98.6 F 07/10/24 23:55 Pulse 80 07/10/24 23:55 Resp 17 07/10/24 23:55 BP 159/77 H 07/10/24 23:55 Pulse Ox 97 07/10/24 23:55 O2 Del Method Room Air 07/10/24 23:55 BMI result Body Mass Index 24.2 General: AOx3, no acute distress, altered Resp: CTA bilaterally CVS: RRR +murmur GI: +BS, NT, no distention Skin: Warm, dry Neuro: Cranial nerves II-XII grossly intact bilaterally. Motor grossly intact bilaterally Extremities: No LE edema Psych: Appropriate affect Const: General: No confusion Orientation/consciousness: No confusion Eyes: Direct Ophthalmoscopy: No photophobia Neuro: General: No confusion Results Labs 07/11/24 04:38 07/11/24 04:38 Labs: Laboratory Results - last 24 hr 07/10/24 07/10/24 07/10/24 19:32 21:32 22:40 MCV 92.8 MCH 33.9 H MCHC 36.5 H RDW 13.9 Plt Count 442 H MPV 9.0 L Immature Gran % (Auto) 0.3 Neut % (Auto) 87.5 H Lymph % (Auto) 6.1 L [place] % (Auto) 4.1 Eos % (Auto) 1.2 Baso % (Auto) 0.8 Lymph # (Auto) 0.8 L [place] # (Auto) 0.5 Eos # (Auto) 0.2 Baso # (Auto) 0.1 Abs Immat Gran (auto) 0.04 H Absolute Neuts (auto) 11.4 H Absolute Nucleated RBC 0.000 Nucleated RBC % (auto) 0.0 Hold Purple Top SEE NOTE PT 11.3 INR 1.0 APTT 32.6 D Hold Blue Top SEE NOTE Anion Gap 21 H Estim Creat Clear Calc 8.8 Estimated GFR 6 Random Glucose 150 H Lactic Acid 0.8 Calcium 8.0 L D Magnesium 2.2 Total Bilirubin 0.6 AST 22 ALT 8 Alkaline Phosphatase 111 Total Protein 7.9 Albumin 4.8 Urine Color BROWN Urine Appearance Turbid Urine pH 7.5 Ur Specific [place] 1.010 Urine Protein 300 (3+) H Urine Glucose (UA) 250 H Urine Ketones Trace Urine Blood Large (3+) H Urine Nitrite Positive H Ur Leukocyte Esterase Small (1+) H Urine RBC >20 H Urine WBC 6-10 Ur Squamous Epith Cells 0-2 Urine Bacteria 2+ Hyaline Casts 0-2 Assessment and Plan (1) Sepsis: Status: Acute (2) UTI (urinary tract infection): Status: Acute (3) Seizure: Status: Acute (4) Hypertensive emergency: Status: Acute (5) Metabolic acidosis: Status: Acute (6) Elevated troponin: Status: Acute (7) ESRD (end stage renal disease): Status: Acute (8) Substance use disorder: Status: Acute Plan Patient is a 44-year-old female with a past medical history significant for HTN, ESRD on HD MWF, solitary seizure as child, HFpEF, history DVT, type 2 diabetes, lupus, Sjogren's, mood disorder, substance use disorder presented to ED after a seizure around 16:00. she reported missing dialysis on Thursday and skipped her BP meds today followed by cocaine use. sepsis secondary to UTI - WBC 13.0, tachycardic, UA+, lactic acid normal, blood cultures x2 pending - UA+, culture pending, started on levaquin due to allergies, continue and add bactrim due to previous cultures DS x1 dose then SS Q12H x3days - no IVF given due to HTN and normal lactic acid - monitor CBC and BMP seizure secondary to hypertensive emergency - BP 246/126 on arrival, with recent cocaine use prior to arrival - CT head/c-spine negative - given clonidine 0.2mg and labetalol 20mg in ED, BP now 159/77 - hold on further BP meds due to significant drop already, resume home meds when appropriate - given ativan and 1000mg keppra in ED, await neurology consult for further medication guidance - continue seizure precautions - neurology consult metabolic acidosis - secondary to UTI and seizure - monitor BMP - IVF held due to hypertension elevated troponin - secondary to ESRD and seizure - EKG normal - no chest pain ESRD on HD MWF - pt missed HD Thursday - nephrology consult CHAY - used cocaine prior to arrival - addiction med consult chronic HFpEF, no acute exacerbation T2DM - hold PO meds - sliding scale insulin - diabetic deit - A1c mood disorder - continue home meds full code VTE prophy: heparin Pt with sepsis secondary to UTI complicated by seizure secondary to hypertensive emergency, requiring admission for at least 2 midnights stay for IV antibiotics, monitoring and expert consultation. Quality Stroke Does the patient have a stroke diagnosis?: No VTE Prior VTE?: Yes VTE Risk Level:: Medical - moderate - high VTE Device Contraindication: Treatment Not Indicated VTE Drug Contraindication: N/A - Med Ordered
[2024-07-11] MEDS: Sulfamethox/Trimeth 800/160 TABLET 1 TAB PO (01:40)
[2024-07-11] MEDS: oxyCODONE HCl Immed Release 5 MG TABLET PO ×3 (04:53→18:41)
[2024-07-11] MEDS: ondansetron HCL 4 MG/2 ML VIAL IVPUSH (04:54)
[2024-07-11 05:10] LABS: Hematocrit 30.4 % (37.0-47.0); Mean Corpuscular HGB Conc 36.2 g/dl (31.0-35.0); Mean Corpuscular Volume 93.8 fL (80.0-98.0); Platelet Count 375 X10*3/uL (160-400); Red Blood Count 3.24 X10*6/uL (4.20-5.50); Red Cell Distribution Width 13.9 % (11.0-16.0); White Blood Count 10.4 X10*3/uL (4.8-10.8)
[2024-07-11 05:33] LABS: Anion Gap 17 (12-20); Blood Urea Nitrogen 53 mg/dL (9-16); Calcium 7.5 mg/dL (8.4-10.2); Carbon Dioxide 18 mmol/L (22-29); Chloride 106 mmol/L (96-108); Creatinine Clr Calc Pharmacy 8.8; Estimated Glomerular Filt Rate 6; Glucose Random 100 mg/dL (60-115); Potassium 3.3 mmol/L (3.3-5.1); Sodium 138 mmol/L (135-145)
[2024-07-11 06:33] LABS: Estimated Average Glucose 105 mg/dL; Hemoglobin A1C 112.7683 umol/L; Hemoglobin A1c % 5.3 % (<6.0)
[2024-07-11] MEDS: Nicotine 14 MG PATCH.TD24 TRANSDERMA (08:20)
[2024-07-11] MEDS: 0.9 % Sodium Chloride Flush 3 ML SYRINGE IVFLUSH ×3 (08:22→21:14)
[2024-07-11 08:27] LABS: Glucose, Whole Blood 98 mg/dL (60-115)
--- NOTE | 2024-07-11 09:06 | PHA.MEDREC ---
Addendum entered by Xavier Ortiz [facility] 07/11/24 10:20: med rec checked by [facility] Original Note: Pharmacy Consult ? Medication Reconciliation Pharmacy has completed the medication reconciliation. Spoke to patient to confirm med list. Patient states she is no longer taking Trulicity 1.5 mg . Patent says she is still taking Carvedilol 25 mg , however last fill date was 09/30/23 for 90 days.
--- NOTE | 2024-07-11 09:24 | P.PNIM_ITS ---
Subjective Subjective Date of Service: 07/11/24 Interval History: Seen and evaluated this morning Feels nauseated no reported seizures overnight BP still elevated in 170s no other events overnight Review of Systems Review of Systems: Yes all other systems are reviewed and are negative Physical Exam 2 Vital Signs: Vital Signs: Last Vital Signs Temp 98.4 F 07/11/24 08:18 Pulse 77 07/11/24 08:18 Resp 16 07/11/24 08:18 BP 174/111 H 07/11/24 08:18 Pulse Ox 98 07/11/24 08:18 O2 Del Method Room Air 07/11/24 08:18 BMI result Body Mass Index 24.2 Const: Other: Constitutional : Awake, interactive, not in distress Neck : Normal inspection, Supple Cardiovascular : RRR, no JVP, no lower extremity edema Respiratory : good bilateral air entry, no crackles, wheezes or rhonchi Gastrointestinal: soft, lax, Normal bowel sounds, Non tender Skin : Warm, Dry, Neurological : Alert & oriented x3, No focal deficit Objective Data Active Medications Acetaminophen (Acetaminophen 325 Mg Tablet) 975 mg PO Q6H PRN PRN Reason: Pain, Mild 1-3,fever,headache Albuterol Sulfate (Albuterol Sulfate 90 Mcg 8 Gm Inhaler) 1 puff INHALE QID PRN PRN Reason: Wheezing Calcium Carbonate (Calcium Carbonate 750 Mg Tab.Chew) 750 mg PO Q4H PRN PRN Reason: Heartburn Carvedilol (Carvedilol 25 Mg Tablet) 50 mg PO BID BRIAN; Protocol Clonidine HCl (Clonidine Hcl 0.1 Mg Tablet) 0.1 mg PO BID BRIAN; Protocol Dextrose (Dextrose 50 % 25 Gm/50 Ml Syringe) 25 gm IVPUSH Q15M PRN; Protocol PRN Reason: per Hypoglycemia Standing Ord. Famotidine (Famotidine 20 Mg Tablet) 20 mg PO DAILY PRN PRN Reason: Heartburn Glucose (Glucose Gel 15 Gm Gel..Gram.) 15 gm PO Q15M PRN; Protocol PRN Reason: per Hypoglycemia Standing Ord. Heparin Sodium (Porcine) (Heparin Sodium,Porcine 5,000 Unit/Ml Vial) 5,000 unit SUBCUT Q8H [facility] Last Admin: 07/11/24 08:21 Dose: Not Given Documented By: MIRI Non-Admin Reason: Patient Refused Insulin Human Lispro (Insulin Lispro 100 Unit/Ml 3 Ml Vial) 0 unit SUBCUT QIDACHS COUNTS INCLUDE 234 BEDS AT THE [facility]; Protocol Last Admin: 07/11/24 07:41 Dose: Not Given Documented By: MIRI Non-Admin Reason: No Insulin Coverage Magnesium Hydroxide (Milk Of Magnesia 30 Ml Oral.Susp) 30 ml PO DAILY PRN PRN Reason: Constipation Melatonin (Melatonin 3 Mg Tablet) 6 mg PO BEDTIME PRN PRN Reason: Insomnia Multivitamins/Vitamin C (Multivitamin Tablet) 1 tab PO DAILY COUNTS INCLUDE 234 BEDS AT THE [facility] Nicotine (Nicotine 14 Mg Patch.Td24) 14 mg TRANSDERMA DAILY COUNTS INCLUDE 234 BEDS AT THE [facility] Last Admin: 07/11/24 08:20 Dose: 14 mg Documented By: MIRI Nifedipine (Nifedipine Er 90 Mg Tab.Er.24) 90 mg PO BID COUNTS INCLUDE 234 BEDS AT THE [facility]; Protocol Ondansetron HCl (Ondansetron Hcl 4 Mg/2 Ml Vial) 4 mg IVPUSH Q8H PRN PRN Reason: Nausea and Vomiting Last Admin: 07/11/24 04:54 Dose: 4 mg Documented By: ADIS Oxycodone HCl (Oxycodone Hcl Immed Release 5 Mg Tablet) 5 mg PO Q6H PRN PRN Reason: Pain, Moderate(Pain Scale 4-6) Last Admin: 07/11/24 04:53 Dose: 5 mg Documented By: ADIS Prochlorperazine Maleate (Prochlorperazine Maleate 5 Mg Tablet) 5 mg PO BID COUNTS INCLUDE 234 BEDS AT THE [facility] Sacubitril/Valsartan (Sacubitril/Valsartan 1 Tab Tablet) 1 tab PO DAILY COUNTS INCLUDE 234 BEDS AT THE [facility]; Protocol Sodium Chloride (0.9 % Sodium Chloride Flush 3 Ml Syringe) 3 ml IVFLUSH QSHIFT COUNTS INCLUDE 234 BEDS AT THE [facility] Last Admin: 07/11/24 08:22 Dose: 3 ml Documented By: MIRI Spironolactone (Spironolactone 25 Mg Tablet) 25 mg PO DAILY COUNTS INCLUDE 234 BEDS AT THE [facility]; Protocol Trimethoprim/Sulfamethoxazole (Sulfamethox/Trimeth 400/80 Tablet) 1 tab PO Q12H COUNTS INCLUDE 234 BEDS AT THE [facility] Stop: 07/14/24 13:59 Labs 07/11/24 04:38 07/11/24 04:38 Labs: Laboratory Results - last 24 hr 07/10/24 07/10/24 07/10/24 19:32 21:32 22:40 MCV 92.8 MCH 33.9 H MCHC 36.5 H RDW 13.9 Plt Count 442 H MPV 9.0 L Immature Gran % (Auto) 0.3 Neut % (Auto) 87.5 H Lymph % (Auto) 6.1 L [place] % (Auto) 4.1 Eos % (Auto) 1.2 Baso % (Auto) 0.8 Lymph # (Auto) 0.8 L [place] # (Auto) 0.5 Eos # (Auto) 0.2 Baso # (Auto) 0.1 Abs Immat Gran (auto) 0.04 H Absolute Neuts (auto) 11.4 H Absolute Nucleated RBC 0.000 Nucleated RBC % (auto) 0.0 Hold Purple Top SEE NOTE PT 11.3 INR 1.0 APTT 32.6 D Hold Blue Top SEE NOTE Anion Gap 21 H Estim Creat Clear Calc 8.8 Estimated GFR 6 POC Glucose Random Glucose 150 H Estimat Average Glucose 105 Hemoglobin A1c % 5.3 Lactic Acid 0.8 Calcium 8.0 L D Magnesium 2.2 Total Bilirubin 0.6 AST 22 ALT 8 Alkaline Phosphatase 111 Total Protein 7.9 Albumin 4.8 Urine Color BROWN Urine Appearance Turbid Urine pH 7.5 Ur Specific [place] 1.010 Urine Protein 300 (3+) H Urine Glucose (UA) 250 H Urine Ketones Trace Urine Blood Large (3+) H Urine Nitrite Positive H Ur Leukocyte Esterase Small (1+) H Urine RBC >20 H Urine WBC 6-10 Ur Squamous Epith Cells 0-2 Urine Bacteria 2+ Hyaline Casts 0-2 07/11/24 07/11/24 04:38 07:34 MCV 93.8 MCH 34.0 H MCHC 36.2 H RDW 13.9 Plt Count 375 MPV 9.0 L Immature Gran % (Auto) Neut % (Auto) Lymph % (Auto) [place] % (Auto) Eos % (Auto) Baso % (Auto) Lymph # (Auto) [place] # (Auto) Eos # (Auto) Baso # (Auto) Abs Immat Gran (auto) Absolute Neuts (auto) Absolute Nucleated RBC 0.000 Nucleated RBC % (auto) 0.0 Hold Purple Top PT INR APTT Hold Blue Top Anion Gap 17 Estim Creat Clear Calc 8.8 Estimated GFR 6 POC Glucose 98 Random Glucose 100 Estimat Average Glucose Hemoglobin A1c % Lactic Acid Calcium 7.5 L D Magnesium Total Bilirubin AST ALT Alkaline Phosphatase Total Protein Albumin Urine Color Urine Appearance Urine pH Ur Specific [place] Urine Protein Urine Glucose (UA) Urine Ketones Urine Blood Urine Nitrite Ur Leukocyte Esterase Urine RBC Urine WBC Ur Squamous Epith Cells Urine Bacteria Hyaline Casts Assessment and Plan (1) New onset seizure: Status: Acute (2) Hypertensive emergency: Status: Acute (3) Substance use disorder: Status: Acute (4) UTI (urinary tract infection): Status: Acute Plan Patient is a 44-year-old female with a past medical history significant for HTN, ESRD on HD MWF, solitary seizure as child, HFpEF, history DVT, type 2 diabetes, lupus, Sjogren's, mood disorder, substance use disorder presented to ED after a seizure around 16:00. she reported missing dialysis on Thursday and skipped her BP meds today followed by cocaine use. sepsis secondary to UTI Sepsis resolved, unclear if she really has infection or leukocytosis related to seizure attack Pending urine and blood cultures x2 continue bactrim due to previous cultures DS x1 dose then SS Q12H x3days DC Levaquin given new seizure seizure secondary to hypertensive emergency BP improved recent Cocaine usage CT head/c-spine negative resume home meds given ativan and 1000mg keppra in ED neurology consult for further medication guidance continue seizure precautions elevated troponin secondary to ESRD and seizure EKG normal, no chest pain Acute metabolic acidosis in ESRD on HD MWF missed HD Thursday nephrology consult CHAY used cocaine addiction med consult chronic HFpEF, no acute exacerbation T2DM hold PO meds, A1c 5.3 sliding scale insulin diabetic deit mood disorder continue home meds full code VTE prophy: heparin Pt with sepsis secondary to UTI complicated by seizure secondary to hypertensive emergency, requiring overnight stay for need of urgent dialysis, antibiotics, monitoring and expert consultation. Quality Stroke Does the patient have a stroke diagnosis?: No VTE Prior VTE?: Yes VTE Risk Level:: Medical - moderate - high VTE Device Contraindication: Treatment Not Indicated VTE Drug Contraindication: N/A - Med Ordered
--- NOTE | 2024-07-11 11:03 | MHC.CM.PN ---
IMM 07/11/24, Pt. lives with her family, she has [employer] services for 12.5 hrs per week. She does not use [facility] or DME. HCP is on file and confirmed: Jorge Alberto. PCP confirmed: Mauricio Nolasco. She goes to HD MWF at [facility] in [place]. She may need assistance with transport home at [place]. DCP: home, resume DIAL [facility] services. CM to follow for DC needs.
[2024-07-11] MEDS: Prochlorperazine Edisylate 10 MG/2 ML VIAL 5 MG IVPUSH (11:06)
[2024-07-11] MEDS: carvediloL 25 MG TABLET 50 MG PO ×2 (11:06→21:13)
[2024-07-11] MEDS: cloNIDine HCL 0.1 MG TABLET PO ×2 (11:06→21:13)
[2024-07-11] MEDS: NIFEdipine ER 90 MG TAB.ER.24 PO ×2 (11:35→21:13)
--- NOTE | 2024-07-11 11:37 | PC.NURSE ---
pt reporting nausea (she takes zofran and compazine at home daily). Compazine IVP given per Dr. Dennis orders. Vitals stable. BP elevated. medicated with home BP meds
--- NOTE | 2024-07-11 12:50 | P.CONNP_ITS ---
History of Present Illness Reason for Consult Consult date: 07/11/24 Chief Complaint Chief complaint: Seizure, HTN,UTI History of Present Illness Narrative: 44-year-old female with history significant of ESRD admitted with seizure. She presented to ED after a seizure and reported missing dialysis on Thursday and skipped her BP medication today followed by cocaine use. She was started on antibiotics due to suspicion for sepsis secondary to UTI. Review of Systems Review of Systems 10 points ROS negative except for pertinent in HPI PMFSH Past Medical History Medical History Legally blind Vascular dialysis catheter in place Hypertensive retinopathy Macular edema Diabetic retinopathy Hyperglycemia CHF (congestive heart failure) Hypertensive urgency Malignant hypertension CKD (chronic kidney disease) Heart block AV second degree Hypersomnia Cardiomyopathy CKD (chronic kidney disease) stage 2, GFR 60-89 ml/min Nicotine dependence, cigarettes, uncomplicated (~1999) Eclampsia Fatty liver Heart failure, unspecified (~09/2020) History of DVT (deep vein thrombosis) Diabetes mellitus Migraines Sjogren's disease Lupus Rheumatoid arthritis High cholesterol Anxiety PTSD (post-traumatic stress disorder) Bipolar 1 disorder H/O mixed connective tissue disease HTN (hypertension) Family History Family History Father Substance use disorder Mental health disorder Brother Substance use disorder Mental health disorder Brother Substance use disorder Mental health disorder Other Diabetes HTN (hypertension) Surgical History Surgical History History of H/O eye surgery History of hip surgery Tubal ligation status History of bronchoscopy (~11/2020) History of cholecystectomy (~05/2014) Social History Social History Household Members: Family Household Members Other:: 3 Housing: House Are you a primary healthcare prof to a significant other at home: No Do you presently have visiting nurse or 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) Alcohol intake: never Patient Tobacco Use Status: Current everyday Tobacco user Tobacco use type: Cigarette Cigarette Packs Per Day: 1 Cigarettes Per Day: 5 Years Smoked: 20 Smoked in Last 30 Days: Yes e-Cigarette/Vaping Use: Never Used Second Hand Smoke Exposure: No Use of substances other than those prescribed or required for medical reasons: Yes Substance Use Type: Crack/Cocaine and Marijuana Advance Directives: Yes Advance Directives on File: Yes Advance Directives Date on File: 06/03/21 Patient : No service: No Current occupational status: disabled Cognitive needs: No Hearing needs: No Vision needs: No Meds Allergies Allergy/AdvReac Type Severity Reaction Status Date / Time amoxicillin Allergy Unknown rash Verified 07/10/24 19:10 cefaclor [From Ceclor] Allergy Unknown RASH Verified 07/10/24 19:10 cephalexin Allergy Unknown rash Verified 07/10/24 19:10 Cephalosporins Allergy Unknown RASH ALL Verified 07/10/24 19:10 [CEPHALOSPORINS] OVER cephradine [From VELOSEF] Allergy Unknown RASH Verified 07/10/24 19:10 Penicillins [PENICILLINS] Allergy Unknown RASH Verified 07/10/24 19:10 gabapentin [GABAPENTIN] AdvReac Unknown RESTLESS Verified 07/10/24 19:10 LEGS, Body becomes very uncomfortable Active Medications: Current Medications Acetaminophen (Acetaminophen 325 Mg Tablet) 975 mg PO Q6H PRN PRN Reason: Pain, Mild 1-3,fever,headache Albuterol Sulfate (Albuterol Sulfate 90 Mcg 8 Gm Inhaler) 1 puff INHALE QID PRN PRN Reason: Wheezing Calcium Carbonate (Calcium Carbonate 750 Mg Tab.Chew) 750 mg PO Q4H PRN PRN Reason: Heartburn Carvedilol (Carvedilol 25 Mg Tablet) 50 mg PO BID [facility]; Protocol Last Admin: 07/11/24 11:06 Dose: 50 mg Clonidine HCl (Clonidine Hcl 0.1 Mg Tablet) 0.1 mg PO BID [facility]; Protocol Last Admin: 07/11/24 11:06 Dose: 0.1 mg Dextrose (Dextrose 50 % 25 Gm/50 Ml Syringe) 25 gm IVPUSH Q15M PRN; Protocol PRN Reason: per Hypoglycemia Standing Ord. Famotidine (Famotidine 20 Mg Tablet) 20 mg PO DAILY PRN PRN Reason: Heartburn Glucose (Glucose Gel 15 Gm Gel..Gram.) 15 gm PO Q15M PRN; Protocol PRN Reason: per Hypoglycemia Standing Ord. Heparin Sodium (Porcine) (Heparin Sodium,Porcine 5,000 Unit/Ml Vial) 5,000 unit SUBCUT Q8H [facility] Last Admin: 07/11/24 08:21 Dose: Not Given Insulin Human Lispro (Insulin Lispro 100 Unit/Ml 3 Ml Vial) 0 unit SUBCUT QIDACHS [facility]; Protocol Last Admin: 07/11/24 07:41 Dose: Not Given Magnesium Hydroxide (Milk Of Magnesia 30 Ml Oral.Susp) 30 ml PO DAILY PRN PRN Reason: Constipation Melatonin (Melatonin 3 Mg Tablet) 6 mg PO BEDTIME PRN PRN Reason: Insomnia Multivitamins/Vitamin C (Multivitamin Tablet) 1 tab PO DAILY [facility] Nicotine (Nicotine 14 Mg Patch.Td24) 14 mg TRANSDERMA DAILY [facility] Last Admin: 07/11/24 08:20 Dose: 14 mg Nifedipine (Nifedipine Er 90 Mg Tab.Er.24) 90 mg PO BID [facility]; Protocol Last Admin: 07/11/24 11:35 Dose: 90 mg Ondansetron HCl (Ondansetron Hcl 4 Mg/2 Ml Vial) 4 mg IVPUSH Q8H PRN PRN Reason: Nausea and Vomiting Last Admin: 07/11/24 04:54 Dose: 4 mg Oxycodone HCl (Oxycodone Hcl Immed Release 5 Mg Tablet) 5 mg PO Q6H PRN PRN Reason: Pain, Moderate(Pain Scale 4-6) Last Admin: 07/11/24 11:13 Dose: 5 mg Prochlorperazine Maleate (Prochlorperazine Maleate 5 Mg Tablet) 5 mg PO BID [facility] Sacubitril/Valsartan (Sacubitril/Valsartan 1 Tab Tablet) 1 tab PO DAILY [facility]; Protocol Sodium Chloride (0.9 % Sodium Chloride Flush 3 Ml Syringe) [facility] Last Admin: 07/11/24 08:22 Dose: 3 ml Spironolactone (Spironolactone 25 Mg Tablet) 25 mg PO DAILY [facility]; Protocol Trimethoprim/Sulfamethoxazole (Sulfamethox/Trimeth 400/80 Tablet) 1 tab PO Q12H [facility] Stop: 07/14/24 13:59 Home Medications ?Medication ?Instructions ?Recorded ?Confirmed ?Last Taken ?Type carvedilol 25 mg tablet 50 mg PO BID 03/20/22 07/11/24 07/10/24 History nifedipine 90 mg tablet,extended 90 mg PO BID 04/22/22 07/11/24 07/10/24 History release 24 hr clotrimazole-betamethasone 1 1 appl topical BID PRN Rash 05/22/24 07/11/24 Unknown History %-0.05 % topical cream famotidine 20 mg tablet 20 mg PO DAILY PRN Heartburn 05/22/24 07/11/24 Unknown History prochlorperazine maleate 5 mg 5 mg PO BID 05/22/24 07/11/24 07/10/24 History tablet sacubitril 24 mg-valsartan 26 mg 1 tab PO DAILY 05/22/24 07/11/24 07/10/24 History tablet (Entresto) spironolactone 25 mg tablet 25 mg PO DAILY 05/22/24 07/11/24 07/10/24 History vitamin B complex-vitamin C-folic 1 tab PO DAILY 05/22/24 07/11/24 07/10/24 History acid 0.8 mg tablet (Jaclyn-Elias) clonidine HCl 0.1 mg tablet 0.1 mg PO BID 07/11/24 07/11/24 07/10/24 History ondansetron 4 mg disintegrating 4 mg PO Q8H PRN Nausea And Vomiting 07/11/24 07/11/24 Unknown History tablet Physical Exam Vital Signs: Last Vital Signs Temp 98.4 F 07/11/24 08:18 Pulse 72 07/11/24 11:33 Resp 18 07/11/24 11:33 BP 178/95 H 07/11/24 11:33 Pulse Ox 99 07/11/24 11:33 O2 Del Method Room Air 07/11/24 11:33 BMI result Body Mass Index 24.2 Const General: other (sleeping) HEENT Head: Yes normocephalic and Yes atraumatic Neck Neck: Yes supple Resp Auscultation: diminished lung sounds Cardio Heart sounds: S1 normal heart sound present and S2 normal heart sound present GI Palpation (GI): Soft to palpation and nontender Extrem General: Yes normal to inspection Results Lab Results 07/11/24 04:38 07/11/24 04:38 Lab results: Chemistry 07/10/24 07/11/24 19:32 04:38 Sodium 137 138 Potassium 3.5 3.3 Carbon Dioxide 18 L 18 L BUN 52 H 53 H Creatinine 7.74 H* 7.72 H* Calcium 8.0 L D 7.5 L D Hematology 07/10/24 07/11/24 19:32 04:38 WBC 13.0 H 10.4 Hgb 12.3 D 11.0 L Plt Count 442 H 375 Urinalysis 07/10/24 21:32 Urine Color BROWN Urine Appearance Turbid Urine pH 7.5 Ur Specific [place] 1.010 Urine Protein 300 (3+) H Urine Glucose (UA) 250 H Urine Ketones Trace Urine Blood Large (3+) H Urine Nitrite Positive H Ur Leukocyte Esterase Small (1+) H Urine RBC >20 H Urine WBC 6-10 Ur Squamous Epith Cells 0-2 Hyaline Casts 0-2 Assessment and Plan (1) ESRD (end stage renal disease): Status: Acute (2) Seizure: Status: Acute (3) Hypertensive emergency: Status: Acute (4) Anemia: Status: Acute Plan known ESRD on HD at [facility]) via [facility] admitted with seizure missed HD last Thursday nephrogenic anemia h/o HFpEF REC HD today optimize volume status P binders no need for KARON Procedures Date of Service Date of Service: 07/11/24
[2024-07-11] MEDS: Sulfamethox/Trimeth 400/80 TABLET 1 TAB PO (13:31)
[2024-07-11] MEDS: Spironolactone 25 MG TABLET PO (13:32)
[2024-07-11 13:35] LABS: Glucose, Whole Blood 175 mg/dL (60-115)
--- NOTE | 2024-07-11 13:35 | PC.NURSE ---
Pt adamantly refusing insulin, reporting she does not take it. Pt educated on insulin use in hospital, continues to refuse. Dialysis called and reported they are ready for pt, awaiting transport.
--- NOTE | 2024-07-11 14:21 | P.CNNE_ITS ---
History of Present Illness Data of Consult Service Date: 07/11/24 Primary Care Provider: Mauricio Nolasco, [facility]- HPI Reason for consult: Seizure 44 years old woman with end-stage renal disease who was in usual state of felt apparently had a seizure or convulsion. She said that she never had any seizure other than 1 seizure in childhood when she took some medicine. There was no history of any significant head injury or drug abuse. When I saw her she was in emergency room and was drowsy. She has been given some medicine. Review of Systems 2 Review of Systems: No recent trauma or cold or flu-like illness or exposure to any new medicine PMFSH Past Medical History Medical History Legally blind Vascular dialysis catheter in place Hypertensive retinopathy Macular edema Diabetic retinopathy Hyperglycemia CHF (congestive heart failure) Hypertensive urgency Malignant hypertension CKD (chronic kidney disease) Heart block AV second degree Hypersomnia Cardiomyopathy CKD (chronic kidney disease) stage 2, GFR 60-89 ml/min Nicotine dependence, cigarettes, uncomplicated (~1999) Eclampsia Fatty liver Heart failure, unspecified (~09/2020) History of DVT (deep vein thrombosis) Diabetes mellitus Migraines Sjogren's disease Lupus Rheumatoid arthritis High cholesterol Anxiety PTSD (post-traumatic stress disorder) Bipolar 1 disorder H/O mixed connective tissue disease HTN (hypertension) Family History Family History Father Substance use disorder Mental health disorder Brother Substance use disorder Mental health disorder Brother Substance use disorder Mental health disorder Other Diabetes HTN (hypertension) Surgical History Surgical History History of H/O eye surgery History of hip surgery Tubal ligation status History of bronchoscopy (~11/2020) History of cholecystectomy (~05/2014) Social History Social History Household Members: Family Household Members Other:: 3 Housing: House Are you a primary respiratory care program director to a significant other at home: No Do you presently have visiting nurse or other home services: 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) Alcohol intake: never Patient Tobacco Use Status: Current everyday Tobacco user Tobacco use type: Cigarette Cigarette Packs Per Day: 1 Cigarettes Per Day: 5 Years Smoked: 20 Smoked in Last 30 Days: Yes e-Cigarette/Vaping Use: Never Used Second Hand Smoke Exposure: No Use of substances other than those prescribed or required for medical reasons: Yes Substance Use Type: Crack/Cocaine and Marijuana Advance Directives: Yes Advance Directives on File: Yes Advance Directives Date on File: 06/03/21 Patient : No service: No Current occupational status: disabled Cognitive needs: No Hearing needs: No Vision needs: No Meds Allergies Allergy/AdvReac Type Severity Reaction Status Date / Time amoxicillin Allergy Unknown rash Verified 07/10/24 19:10 cefaclor [From Ceclor] Allergy Unknown RASH Verified 07/10/24 19:10 cephalexin Allergy Unknown rash Verified 07/10/24 19:10 Cephalosporins Allergy Unknown RASH ALL Verified 07/10/24 19:10 [CEPHALOSPORINS] OVER cephradine [From VELOSEF] Allergy Unknown RASH Verified 07/10/24 19:10 Penicillins [PENICILLINS] Allergy Unknown RASH Verified 07/10/24 19:10 gabapentin [GABAPENTIN] AdvReac Unknown RESTLESS Verified 07/10/24 19:10 LEGS, Body becomes very uncomfortable Active Medications: Current Medications Acetaminophen (Acetaminophen 325 Mg Tablet) 975 mg PO Q6H PRN PRN Reason: Pain, Mild 1-3,fever,headache Albuterol Sulfate (Albuterol Sulfate 90 Mcg 8 Gm Inhaler) 1 puff INHALE QID PRN PRN Reason: Wheezing Calcium Carbonate (Calcium Carbonate 750 Mg Tab.Chew) 750 mg PO Q4H PRN PRN Reason: Heartburn Carvedilol (Carvedilol 25 Mg Tablet) 50 mg PO BID [facility]; Protocol Last Admin: 07/11/24 11:06 Dose: 50 mg Clonidine HCl (Clonidine Hcl 0.1 Mg Tablet) 0.1 mg PO BID [facility]; Protocol Last Admin: 07/11/24 11:06 Dose: 0.1 mg Dextrose (Dextrose 50 % 25 Gm/50 Ml Syringe) 25 gm IVPUSH Q15M PRN; Protocol PRN Reason: per Hypoglycemia Standing Ord. Famotidine (Famotidine 20 Mg Tablet) 20 mg PO DAILY PRN PRN Reason: Heartburn Glucose (Glucose Gel 15 Gm Gel..Gram.) 15 gm PO Q15M PRN; Protocol PRN Reason: per Hypoglycemia Standing Ord. Heparin Sodium (Porcine) (Heparin Sodium,Porcine 5,000 Unit/Ml Vial) 5,000 unit SUBCUT Q8H [facility] Last Admin: 07/11/24 08:21 Dose: Not Given Insulin Human Lispro (Insulin Lispro 100 Unit/Ml 3 Ml Vial) 0 unit SUBCUT QIDACHS [facility]; Protocol Last Admin: 07/11/24 13:31 Dose: Not Given Magnesium Hydroxide (Milk Of Magnesia 30 Ml Oral.Susp) 30 ml PO DAILY PRN PRN Reason: Constipation Melatonin (Melatonin 3 Mg Tablet) 6 mg PO BEDTIME PRN PRN Reason: Insomnia Multivitamins/Vitamin C (Multivitamin Tablet) 1 tab PO DAILY [facility] Nicotine (Nicotine 14 Mg Patch.Td24) 14 mg TRANSDERMA DAILY [facility] Last Admin: 07/11/24 08:20 Dose: 14 mg Nifedipine (Nifedipine Er 90 Mg Tab.Er.24) 90 mg PO BID [facility]; Protocol Last Admin: 07/11/24 11:35 Dose: 90 mg Ondansetron HCl (Ondansetron Hcl 4 Mg/2 Ml Vial) 4 mg IVPUSH Q8H PRN PRN Reason: Nausea and Vomiting Last Admin: 07/11/24 04:54 Dose: 4 mg Oxycodone HCl (Oxycodone Hcl Immed Release 5 Mg Tablet) 5 mg PO Q6H PRN PRN Reason: Pain, Moderate(Pain Scale 4-6) Last Admin: 07/11/24 11:13 Dose: 5 mg Prochlorperazine Maleate (Prochlorperazine Maleate 5 Mg Tablet) 5 mg PO BID [facility] Sacubitril/Valsartan (Sacubitril/Valsartan 24 1 Tab Tablet) 1 tab PO DAILY [facility]; Protocol Sodium Chloride (0.9 % Sodium Chloride Flush 3 Ml Syringe) 3 ml IVFLUSH QSHIFT [facility] Last Admin: 07/11/24 08:22 Dose: 3 ml Spironolactone (Spironolactone 25 Mg Tablet) 25 mg PO DAILY [facility]; Protocol Last Admin: 07/11/24 13:32 Dose: 25 mg Trimethoprim/Sulfamethoxazole (Sulfamethox/Trimeth 400/80 Tablet) 1 tab PO Q12H [facility] Stop: 07/14/24 13:59 Last Admin: 07/11/24 13:31 Dose: 1 tab Home Medications ?Medication ?Instructions ?Recorded ?Confirmed ?Last Taken ?Type carvedilol 25 mg tablet 50 mg PO BID 03/20/22 07/11/24 07/10/24 History nifedipine 90 mg tablet,extended 90 mg PO BID 04/22/22 07/11/24 07/10/24 History release 24 hr clotrimazole-betamethasone 1 1 appl topical BID PRN Rash 05/22/24 07/11/24 Unknown History %-0.05 % topical cream famotidine 20 mg tablet 20 mg PO DAILY PRN Heartburn 05/22/24 07/11/24 Unknown History prochlorperazine maleate 5 mg 5 mg PO BID 05/22/24 07/11/24 07/10/24 History tablet sacubitril 24 mg-valsartan 26 mg 1 tab PO DAILY 05/22/24 07/11/24 07/10/24 History tablet (Entresto) spironolactone 25 mg tablet 25 mg PO DAILY 05/22/24 07/11/24 07/10/24 History vitamin B complex-vitamin C-folic 1 tab PO DAILY 05/22/24 07/11/24 07/10/24 History acid 0.8 mg tablet (Jaclyn-Elias) clonidine HCl 0.1 mg tablet 0.1 mg PO BID 07/11/24 07/11/24 07/10/24 History ondansetron 4 mg disintegrating 4 mg PO Q8H PRN Nausea And Vomiting 07/11/24 07/11/24 Unknown History tablet Physical Exam 2 Vital Signs: Vital Signs: Last Vital Signs Temp 98.4 F 07/11/24 08:18 Pulse 72 07/11/24 11:33 Resp 18 07/11/24 11:33 BP 178/109 H 07/11/24 13:32 Pulse Ox 99 07/11/24 11:33 O2 Del Method Room Air 07/11/24 11:33 BMI result Body Mass Index 24.2 Neuro: Other: She was moderately drowsy but I was able to wake her up. She answered questions appropriately. Response was little slow. Face was symmetrical. Visual mary are full. There was no focal weakness. Plantars were flexor. Deep tendon reflexes were absent. Speech was normal. Results Labs 07/11/24 04:38 07/11/24 04:38 Labs: Short CBC 07/10/24 07/11/24 Range/Units 19:32 04:38 WBC 13.0 H 10.4 (4.8-10.8) X10*3/uL Hgb 12.3 D 11.0 L (12.0-16.0) g/dl Hct 33.7 L D 30.4 L (37.0-47.0) % Plt Count 442 H 375 (160-400) X10*3/uL BMP 07/10/24 07/11/24 19:32 04:38 Sodium 137 138 Potassium 3.5 3.3 Chloride 102 106 Carbon Dioxide 18 L 18 L BUN 52 H 53 H Creatinine 7.74 H* 7.72 H* Calcium 8.0 L D 7.5 L D Liver Function 07/10/24 Range/Units 19:32 Total Bilirubin 0.6 (0.0-1.0) mg/dL AST 22 (5-31) U/L ALT 8 (0-31) U/L Alkaline Phosphatase 111 (39-117) U/L Albumin 4.8 (3.5-5.0) g/dL Urine 07/10/24 Range/Units 21:32 Urine Color BROWN Urine Appearance Turbid Urine pH 7.5 (5.0-9.0) Ur Specific [place] 1.010 (1.005-1.025) Urine Protein 300 (3+) H (Neg-Trace) mg/dL Urine Glucose (UA) 250 H (Negative) mg/dL Head CT revealed moderately severe chronic microvascular ischemic changes. Microbiology Microbiology Results: Microbiology 07/10/24 Unknown Urine clean catch - Clean Catch Midstream Urine Culture - Preliminary No growth to date. Assessment and Plan (1) New onset seizure: Status: Acute 44 years old woman with new onset seizure disorder with underlying end-stage renal disease. She reported having 1 seizure in childhood. I recommend putting her on levetiracetam 500 mg twice a day, obtaining EEG, and and noncontrast MRI of brain. Procedures Date of Service Date of Service: 07/11/24
--- NOTE | 2024-07-11 14:30 | P.CDIM_ITS ---
PROVIDER RESPONSE TEXT: To clarify, the appropriate diagnosis supported by the clinical indicators: Hypocalcemia: suspected QUERY TEXT: PHYSICIAN'S DOCUMENTATION REQUEST Date of Query: 07/11/2024 11:55 AM EDT Patient Name: Angela Streeter Admit Date: 07/11/2024 Dear Christophe Dennis MD, A review of the medical record indicates additional documentation may be needed. Please review below and update the documentation accordingly. Clinical Indicators: LABS: calcium 8.0 L 7.5 L Based on the above, could you clarify if there is a diagnosis that correlates with these lab findings : Hypocalcemia possible, resolved, suspected etc. Labs indicate a diagnosis of (please specify) Other (explain) Clinically unable to determine (explain) Thank you, Elsy Rodarte, CCS, CDIS Use of terms such as suspected, likely, concern for, or probable (associated with a specific diagnosi s that is being evaluated, monitored, or treated as if it exists) are acceptable and can be coded in the inpatient se tting, when documented at the time of discharge. Please use your independent medical judgment in providing your response. THIS QUERY IS PART OF THE PERMANENT MEDICAL RECORD
--- NOTE | 2024-07-11 16:19 | P.EN_ITS ---
Event Note Date of Service: 07/11/24 Event Note: Addiction consult placed for patient with reported cocaine use Chart reviewed, patient transferred to [facility] [place] this afternoon will complete eval in AM (07/12/24) Time Spent With Patient Time: Total time managing care of this patient today ____ minutes.
[2024-07-11 16:28] LABS: Glucose, Whole Blood 134 mg/dL (60-115)
[2024-07-11 20:28] LABS: Glucose, Whole Blood 185 mg/dL (60-115)
[2024-07-11] MEDS: Insulin Lispro 100 UNIT/ML 3 ML VIAL SUBCUT (21:14)
[2024-07-11] MEDS: Prochlorperazine Maleate 5 MG TABLET PO (21:14)
--- NOTE | 2024-07-12 | EEG_ITS ---
This is a 16 channel EEG with an EKG lead. The patient is reported awake and drowsy during the tracing. Background EEG rhythm is mixed theta beta with no obvious asymmetry or paroxysmal tendency. Photic stimulation does not produce any significant abnormality. Hyperventilation is not performed. Cardiac lead does not reveal any significant abnormality. No definite sharp wave spikes or paroxysmal tendency or asymmetry noted. IMPRESSION: No significant abnormality noted on this EEG. MD KENNA Masters/NOEMI / [id number]
[2024-07-12] MEDS: Sulfamethox/Trimeth 400/80 TABLET 1 TAB PO ×2 (02:32→15:13)
[2024-07-12] MEDS: oxyCODONE HCl Immed Release 5 MG TABLET PO ×3 (02:57→15:17)
[2024-07-12 03:00] VITALS: BP 133/73; PULSE 70; RESP 18; TEMP 36.4; O2SAT 96
[2024-07-12 07:09] LABS: Hematocrit 33.8 % (37.0-47.0); Mean Corpuscular HGB Conc 35.5 g/dl (31.0-35.0); Mean Corpuscular Hemoglobin 33.7 pg (27.0-33.0); Mean Corpuscular Volume 94.9 fL (80.0-98.0); Mean Platelet Volume 9.4 fL (9.4-12.3); Platelet Count 394 X10*3/uL (160-400); Red Blood Count 3.56 X10*6/uL (4.20-5.50); Red Cell Distribution Width 13.9 % (11.0-16.0); White Blood Count 9.4 X10*3/uL (4.8-10.8)
[2024-07-12 07:12] LABS: Glucose, Whole Blood 113 mg/dL (60-115)
[2024-07-12 07:21] VITALS: BP 155/85; PULSE 67; RESP 20; TEMP 36.7; O2SAT 97
[2024-07-12] MEDS: cloNIDine HCL 0.1 MG TABLET PO ×2 (07:51→20:21)
[2024-07-12] MEDS: Prochlorperazine Maleate 5 MG TABLET PO ×2 (07:51→20:21)
[2024-07-12] MEDS: carvediloL 25 MG TABLET 50 MG PO ×2 (07:51→20:21)
[2024-07-12] MEDS: Spironolactone 25 MG TABLET PO (07:52)
[2024-07-12] MEDS: Multivitamin TABLET 1 TAB PO (07:52)
[2024-07-12] MEDS: Nicotine 14 MG PATCH.TD24 TRANSDERMA (07:52)
[2024-07-12] MEDS: NIFEdipine ER 90 MG TAB.ER.24 PO ×2 (07:52→20:21)
[2024-07-12] MEDS: 0.9 % Sodium Chloride Flush 3 ML SYRINGE IVFLUSH ×3 (07:54→20:23)
[2024-07-12] MEDS: Sacubitril/Valsartan 24/26 1 TAB TABLET PO (08:03)
[2024-07-12] MEDS: levETIRAcetam 500 MG TABLET PO ×2 (08:04→20:21)
[2024-07-12 08:48] LABS: Anion Gap 16 (12-20); Blood Urea Nitrogen 43 mg/dL (9-16); Calcium 8.6 mg/dL (8.4-10.2); Carbon Dioxide 25 mmol/L (22-29); Chloride 101 mmol/L (96-108); Creatinine Clr Calc Pharmacy 12.9; Estimated Glomerular Filt Rate 9; Glucose Random 131 mg/dL (60-115); Potassium 3.9 mmol/L (3.3-5.1); Sodium 138 mmol/L (135-145)
[2024-07-12] MEDS: ondansetron HCL 4 MG/2 ML VIAL IVPUSH (09:00)
[2024-07-12 11:20] LABS: Glucose, Whole Blood 150 mg/dL (60-115)
[2024-07-12 11:25] VITALS: BP 139/80; PULSE 60; RESP 20; TEMP 36.5; O2SAT 99
--- NOTE | 2024-07-12 11:34 | HO.ADDICTCON ---
History of Present Illness Date of Service: 07/12/2024 Chief Complaint: Seizure, HTN,UTI Reason for Consult: cocaine use HPI Narrative: Patient is a 44 year old female with numerous chronic health issues, including ESRD, DM, and CHF She presented to [facility] [place] ED after seizure at home--also reporting she missed HD on Thursday. Admitted with hypertensive emergency and UTI. At time of admission she reported cocaine use, therefore ACS consulted. Patient seen in room 444. She is awake, alert, pleasant and engaged in interview. Discussed cocaine use She reports increasing stress at home as she is now caring for her mother with dementia, and feels she has limited supports. She also states that she has two adult children with special needs that live with her. She acknowledges using cocaine to help her cope and help her in getting everything done that she has to get done at home She reports that she has been feeling increasingly overwhelmed and feels safe here in the hospital and also feels like she is getting a break . Reports using an 8 ball over two days (prior to admission). Using IN. Prior to that she reports cocaine use was very infrequent, maybe every few months or so . She reports she has never used more than once in a day and never 2 days in a row. Reports regular cannabis use, usually in the context of not being able to sleep. Denies any other substance use, including alcohol Denies any history of treatment Denies any history of IVDU Discussed supports, she states she has a therapist with who she has been working with for over ten years She has also been working on getting her mother into a day program, which she hopes will help relieve some stress. Medical Evaluation Reviewed: Yes Review of Systems Constitutional: Reports as per HPI Diagnostics Vital Signs (24Hr): Vital Signs - 24 hr 07/11/24 13:32 07/11/24 18:51 07/11/24 21:15 Temperature 98.3 F Pulse Rate 63 70 Respiratory Rate 18 Blood Pressure 178/109 H 176/87 H 170/83 H Pulse Oximetry 96 Oxygen Delivery Method Room Air 07/11/24 23:03 07/12/24 03:00 07/12/24 07:21 Temperature 97.6 F 97.6 F 98.1 F Pulse Rate 73 70 67 Respiratory Rate 18 18 20 Blood Pressure 139/86 133/73 155/85 H Pulse Oximetry 96 96 97 Oxygen Delivery Method Room Air Room Air Room Air 07/12/24 11:25 Temperature 97.7 F Pulse Rate 60 Respiratory Rate 20 Blood Pressure 139/80 Pulse Oximetry 99 Oxygen Delivery Method Room Air BMI result Body Mass Index 24.2 Labs 07/12/24 06:27 07/12/24 06:27 Labs: Laboratory Results - last 48 hr 07/10/24 07/10/24 07/10/24 19:32 21:32 22:40 WBC 13.0 H RBC 3.63 L D Hgb 12.3 D Hct 33.7 L D MCV 92.8 MCH 33.9 H MCHC 36.5 H RDW 13.9 Plt Count 442 H MPV 9.0 L Immature Gran % (Auto) 0.3 Neut % (Auto) 87.5 H Lymph % (Auto) 6.1 L Barry % (Auto) 4.1 Eos % (Auto) 1.2 Baso % (Auto) 0.8 Lymph # (Auto) 0.8 L Barry # (Auto) 0.5 Eos # (Auto) 0.2 Baso # (Auto) 0.1 Abs Immat Gran (auto) 0.04 H Absolute Neuts (auto) 11.4 H Absolute Nucleated RBC 0.000 Nucleated RBC % (auto) 0.0 Hold Purple Top SEE NOTE PT 11.3 INR 1.0 APTT 32.6 D Hold Blue Top SEE NOTE Sodium 137 Potassium 3.5 Chloride 102 Carbon Dioxide 18 L Anion Gap 21 H BUN 52 H Creatinine 7.74 H* Estim Creat Clear Calc 8.8 Estimated GFR 6 POC Glucose Random Glucose 150 H Estimat Average Glucose 105 Hemoglobin A1c % 5.3 Lactic Acid 0.8 Calcium 8.0 L D Magnesium 2.2 Total Bilirubin 0.6 AST 22 ALT 8 Alkaline Phosphatase 111 Troponin I High Sens 40.3 H Total Protein 7.9 Albumin 4.8 Urine Color BROWN Urine Appearance Turbid Urine pH 7.5 Ur Specific [place] 1.010 Urine Protein 300 (3+) H Urine Glucose (UA) 250 H Urine Ketones Trace Urine Blood Large (3+) H Urine Nitrite Positive H Ur Leukocyte Esterase Small (1+) H Urine RBC >20 H Urine WBC 6-10 Ur Squamous Epith Cells 0-2 Urine Bacteria 2+ Hyaline Casts 0-2 07/11/24 07/11/24 07/11/24 04:38 07:34 13:27 WBC 10.4 RBC 3.24 L Hgb 11.0 L Hct 30.4 L MCV 93.8 MCH 34.0 H MCHC 36.2 H RDW 13.9 Plt Count 375 MPV 9.0 L Immature Gran % (Auto) Neut % (Auto) Lymph % (Auto) Barry % (Auto) Eos % (Auto) Baso % (Auto) Lymph # (Auto) Barry # (Auto) Eos # (Auto) Baso # (Auto) Abs Immat Gran (auto) Absolute Neuts (auto) Absolute Nucleated RBC 0.000 Nucleated RBC % (auto) 0.0 Hold Purple Top PT INR APTT Hold Blue Top Sodium 138 Potassium 3.3 Chloride 106 Carbon Dioxide 18 L Anion Gap 17 BUN 53 H Creatinine 7.72 H* Estim Creat Clear Calc 8.8 Estimated GFR 6 POC Glucose 98 175 H Random Glucose 100 Estimat Average Glucose Hemoglobin A1c % Lactic Acid Calcium 7.5 L D Magnesium Total Bilirubin AST ALT Alkaline Phosphatase Troponin I High Sens Total Protein Albumin Urine Color Urine Appearance Urine pH Ur Specific [place] Urine Protein Urine Glucose (UA) Urine Ketones Urine Blood Urine Nitrite Ur Leukocyte Esterase Urine RBC Urine WBC Ur Squamous Epith Cells Urine Bacteria Hyaline Casts 07/11/24 07/11/24 07/12/24 16:22 20:19 06:27 WBC 9.4 RBC 3.56 L Hgb 12.0 Hct 33.8 L MCV 94.9 MCH 33.7 H MCHC 35.5 H RDW 13.9 Plt Count 394 MPV 9.4 Immature Gran % (Auto) Neut % (Auto) Lymph % (Auto) Barry % (Auto) Eos % (Auto) Baso % (Auto) Lymph # (Auto) Barry # (Auto) Eos # (Auto) Baso # (Auto) Abs Immat Gran (auto) Absolute Neuts (auto) Absolute Nucleated RBC 0.000 Nucleated RBC % (auto) 0.0 Hold Purple Top PT INR APTT Hold Blue Top Sodium 138 Potassium 3.9 Chloride 101 Carbon Dioxide 25 Anion Gap 16 BUN 43 H Creatinine 5.30 H* Estim Creat Clear Calc 12.9 Estimated GFR 9 POC Glucose 134 H 185 H Random Glucose 131 H Estimat Average Glucose Hemoglobin A1c % Lactic Acid Calcium 8.6 D Magnesium Total Bilirubin AST ALT Alkaline Phosphatase Troponin I High Sens Total Protein Albumin Urine Color Urine Appearance Urine pH Ur Specific [place] Urine Protein Urine Glucose (UA) Urine Ketones Urine Blood Urine Nitrite Ur Leukocyte Esterase Urine RBC Urine WBC Ur Squamous Epith Cells Urine Bacteria Hyaline Casts 07/12/24 07/12/24 07:08 11:15 WBC RBC Hgb Hct MCV MCH MCHC RDW Plt Count MPV Immature Gran % (Auto) Neut % (Auto) Lymph % (Auto) Barry % (Auto) Eos % (Auto) Baso % (Auto) Lymph # (Auto) Barry # (Auto) Eos # (Auto) Baso # (Auto) Abs Immat Gran (auto) Absolute Neuts (auto) Absolute Nucleated RBC Nucleated RBC % (auto) Hold Purple Top PT INR APTT Hold Blue Top Sodium Potassium Chloride Carbon Dioxide Anion Gap BUN Creatinine Estim Creat Clear Calc Estimated GFR POC Glucose 113 150 H Random Glucose Estimat Average Glucose Hemoglobin A1c % Lactic Acid Calcium Magnesium Total Bilirubin AST ALT Alkaline Phosphatase Troponin I High Sens Total Protein Albumin Urine Color Urine Appearance Urine pH Ur Specific [place] Urine Protein Urine Glucose (UA) Urine Ketones Urine Blood Urine Nitrite Ur Leukocyte Esterase Urine RBC Urine WBC Ur Squamous Epith Cells Urine Bacteria Hyaline Casts Mental Status Exam Mental Status Exam Patient Appearance: Appropriate Level of Consciousness: Awake, Appropriate and Alert Patient Behavior: Appropriate and Talkative Mood Description: Appropriate Affect Description: Calm Speech Pattern: Clear Hallucinations: None Thought Content: positive for Intact and positive for Circumstantial Judgement: Good Medications Medications Current Medications Acetaminophen (Acetaminophen 325 Mg Tablet) 975 mg PO Q6H PRN PRN Reason: Pain, Mild 1-3,fever,headache Albuterol Sulfate (Albuterol Sulfate 90 Mcg 8 Gm Inhaler) 1 puff INHALE QID PRN PRN Reason: Wheezing Calcium Carbonate (Calcium Carbonate 750 Mg Tab.Chew) 750 mg PO Q4H PRN PRN Reason: Heartburn Carvedilol (Carvedilol 25 Mg Tablet) 50 mg PO BID [facility]; Protocol Last Admin: 07/12/24 07:51 Dose: 50 mg Clonidine HCl (Clonidine Hcl 0.1 Mg Tablet) 0.1 mg PO BID [facility]; Protocol Last Admin: 07/12/24 07:51 Dose: 0.1 mg Dextrose (Dextrose 50 % 25 Gm/50 Ml Syringe) 25 gm IVPUSH Q15M PRN; Protocol PRN Reason: per Hypoglycemia Standing Ord. Famotidine (Famotidine 20 Mg Tablet) 20 mg PO DAILY PRN PRN Reason: Heartburn Glucose (Glucose Gel 15 Gm Gel..Gram.) 15 gm PO Q15M PRN; Protocol PRN Reason: per Hypoglycemia Standing Ord. Heparin Sodium (Porcine) (Heparin Sodium,Porcine 5,000 Unit/Ml Vial) 5,000 unit SUBCUT Q8H [facility] Last Admin: 07/12/24 07:55 Dose: Not Given Insulin Human Lispro (Insulin Lispro 100 Unit/Ml 3 Ml Vial) 0 unit SUBCUT QIDACHS [facility]; Protocol Last Admin: 07/12/24 11:27 Dose: Not Given Levetiracetam (Levetiracetam 500 Mg Tablet) 500 mg PO BID [facility] Last Admin: 07/12/24 08:04 Dose: 500 mg Magnesium Hydroxide (Milk Of Magnesia 30 Ml Oral.Susp) 30 ml PO DAILY PRN PRN Reason: Constipation Melatonin (Melatonin 3 Mg Tablet) 6 mg PO BEDTIME PRN PRN Reason: Insomnia Multivitamins/Vitamin C (Multivitamin Tablet) 1 tab PO DAILY [facility] Last Admin: 07/12/24 07:52 Dose: 1 tab Nicotine (Nicotine 14 Mg Patch.Td24) 14 mg TRANSDERMA DAILY [facility] Last Admin: 07/12/24 07:52 Dose: 14 mg Nifedipine (Nifedipine Er 90 Mg Tab.Er.24) 90 mg PO BID [facility]; Protocol Last Admin: 07/12/24 07:52 Dose: 90 mg Ondansetron HCl (Ondansetron Hcl 4 Mg/2 Ml Vial) 4 mg IVPUSH Q8H PRN PRN Reason: Nausea and Vomiting Last Admin: 07/12/24 09:00 Dose: 4 mg Oxycodone HCl (Oxycodone Hcl Immed Release 5 Mg Tablet) 5 mg PO Q6H PRN PRN Reason: Pain, Moderate(Pain Scale 4-6) Last Admin: 07/12/24 08:59 Dose: 5 mg Prochlorperazine Maleate (Prochlorperazine Maleate 5 Mg Tablet) 5 mg PO BID [facility] Last Admin: 07/12/24 07:51 Dose: 5 mg Sacubitril/Valsartan (Sacubitril/Valsartan 1 Tab Tablet) 1 tab PO DAILY [facility]; Protocol Last Admin: 07/12/24 08:03 Dose: 1 tab Sodium Chloride (0.9 % Sodium Chloride Flush 3 Ml Syringe) 3 ml IVFLUSH QSHIFT [facility] Last Admin: 07/12/24 07:54 Dose: 3 ml Spironolactone (Spironolactone 25 Mg Tablet) 25 mg PO DAILY [facility]; Protocol Last Admin: 07/12/24 07:52 Dose: 25 mg Trimethoprim/Sulfamethoxazole (Sulfamethox/Trimeth 400/80 Tablet) 1 tab PO Q12H [facility] Stop: 07/14/24 13:59 Last Admin: 07/12/24 02:32 Dose: 1 tab Allergies Allergies Allergy/AdvReac Type Severity Reaction Status Date / Time amoxicillin Allergy Unknown rash Verified 07/10/24 19:10 cefaclor [From Ceclor] Allergy Unknown RASH Verified 07/10/24 19:10 cephalexin Allergy Unknown rash Verified 07/10/24 19:10 Cephalosporins Allergy Unknown RASH ALL Verified 07/10/24 19:10 [CEPHALOSPORINS] OVER cephradine [From VELOSEF] Allergy Unknown RASH Verified 07/10/24 19:10 Penicillins [PENICILLINS] Allergy Unknown RASH Verified 07/10/24 19:10 gabapentin [GABAPENTIN] AdvReac Unknown RESTLESS Verified 07/10/24 19:10 LEGS, Body becomes very uncomfortable Assessment & Plan Assessment & Plan (1) Cocaine use: Status: Acute Code(s): F14.90 - Cocaine use, unspecified, uncomplicated Assessment and Plan: based on history provided, does not meet criteria for a substance use disorder, however she is at risk for development of a use disorder overdose prevention discussion--patient agreeable to fentanyl test strips discussed reaching out to supports and risks of using any substance to cope with stress or anxiety discussed how using cocaine can/will impact underlying health issues control and recovery special tactics to follow up with risk reduction strategies Total time managing care of this patient today _40___ minutes. [facility] Past Medical History Medical History Legally blind Vascular dialysis catheter in place Hypertensive retinopathy Macular edema Diabetic retinopathy Hyperglycemia CHF (congestive heart failure) Hypertensive urgency Malignant hypertension CKD (chronic kidney disease) Heart block AV second degree Hypersomnia Cardiomyopathy CKD (chronic kidney disease) stage 2, GFR 60-89 ml/min Nicotine dependence, cigarettes, uncomplicated (~1999) Eclampsia Fatty liver Heart failure, unspecified (~09/2020) History of DVT (deep vein thrombosis) Diabetes mellitus Migraines Sjogren's disease Lupus Rheumatoid arthritis High cholesterol Anxiety PTSD (post-traumatic stress disorder) Bipolar 1 disorder H/O mixed connective tissue disease HTN (hypertension) Family History Family History Father Substance use disorder Mental health disorder Brother Substance use disorder Mental health disorder Brother Substance use disorder Mental health disorder Other Diabetes HTN (hypertension) Surgical History Surgical History History of H/O eye surgery History of hip surgery Tubal ligation status History of bronchoscopy (~11/2020) History of cholecystectomy (~05/2014) Social History Social History Household Members: Family Household Members Other:: 3 Housing: House Are you a primary childcare provider to a significant other at home: No Do you presently have visiting nurse or other home services: No Alcohol intake: never Patient Tobacco Use Status: Current everyday Tobacco user Tobacco use type: Cigarette Cigarette Packs Per Day: 1 Cigarettes Per Day: 5 Years Smoked: 20 e-Cigarette/Vaping Use: Never Used Second Hand Smoke Exposure: No Substance Use Type: Crack/Cocaine and Marijuana Advance Directives Date on File: 06/03/21 service: No Current occupational status: disabled Cognitive needs: No Hearing needs: No Vision needs: No
[2024-07-12 14:56] VITALS: BP 144/64; PULSE 67; RESP 18; TEMP 36.9; O2SAT 97
--- NOTE | 2024-07-12 15:36 | P.PNIM_ITS ---
Subjective Subjective Date of Service: 07/12/24 Interval History: Seen and evaluated this morning Feels better having dizziness with changing position BP better controlled no reported seizures overnight BP still elevated in 170s no other events overnight Review of Systems Review of Systems: Yes all other systems are reviewed and are negative Physical Exam 2 Vital Signs: Vital Signs: Last Vital Signs Temp 98.5 F 07/12/24 14:56 Pulse 67 07/12/24 14:56 Resp 18 07/12/24 14:56 BP 144/64 H 07/12/24 14:56 Pulse Ox 97 07/12/24 14:56 O2 Del Method Room Air 07/12/24 14:56 BMI result Body Mass Index 24.2 Const: Other: Constitutional : Awake, interactive, not in distress Neck : Normal inspection, Supple Cardiovascular : RRR, no JVP, no lower extremity edema Respiratory : good bilateral air entry, no crackles, wheezes or rhonchi Gastrointestinal: soft, lax, Normal bowel sounds, Non tender Skin : Warm, Dry, Neurological : Alert & oriented x3, No focal deficit Objective Data Active Medications Acetaminophen (Acetaminophen 325 Mg Tablet) 975 mg PO Q6H PRN PRN Reason: Pain, Mild 1-3,fever,headache Albuterol Sulfate (Albuterol Sulfate 90 Mcg 8 Gm Inhaler) 1 puff INHALE QID PRN PRN Reason: Wheezing Calcium Carbonate (Calcium Carbonate 750 Mg Tab.Chew) 750 mg PO Q4H PRN PRN Reason: Heartburn Carvedilol (Carvedilol 25 Mg Tablet) 50 mg PO BID [facility]; Protocol Last Admin: 07/12/24 07:51 Dose: 50 mg Documented By: BOY Clonidine HCl (Clonidine Hcl 0.1 Mg Tablet) 0.1 mg PO BID [facility]; Protocol Last Admin: 07/12/24 07:51 Dose: 0.1 mg Documented By: BOY Dextrose (Dextrose 50 % 25 Gm/50 Ml Syringe) 25 gm IVPUSH Q15M PRN; Protocol PRN Reason: per Hypoglycemia Standing Ord. Famotidine (Famotidine 20 Mg Tablet) 20 mg PO DAILY PRN PRN Reason: Heartburn Glucose (Glucose Gel 15 Gm Gel..Gram.) 15 gm PO Q15M PRN; Protocol PRN Reason: per Hypoglycemia Standing Ord. Heparin Sodium (Porcine) (Heparin Sodium,Porcine 5,000 Unit/Ml Vial) 5,000 unit SUBCUT Q8H [facility] Last Admin: 07/12/24 13:49 Dose: Not Given Documented By: BOY Non-Admin Reason: Patient Refused Insulin Human Lispro (Insulin Lispro 100 Unit/Ml 3 Ml Vial) 0 unit SUBCUT QIDACHS [facility]; Protocol Last Admin: 07/12/24 11:27 Dose: Not Given Documented By: BOY Non-Admin Reason: No Insulin Coverage Levetiracetam (Levetiracetam 500 Mg Tablet) 500 mg PO BID [facility] Last Admin: 07/12/24 08:04 Dose: 500 mg Documented By: BOY Magnesium Hydroxide (Milk Of Magnesia 30 Ml Oral.Susp) 30 ml PO DAILY PRN PRN Reason: Constipation Melatonin (Melatonin 3 Mg Tablet) 6 mg PO BEDTIME PRN PRN Reason: Insomnia Multivitamins/Vitamin C (Multivitamin Tablet) 1 tab PO DAILY [facility] Last Admin: 07/12/24 07:52 Dose: 1 tab Documented By: BOY Nicotine (Nicotine 14 Mg Patch.Td24) 14 mg TRANSDERMA DAILY [facility] Last Admin: 07/12/24 07:52 Dose: 14 mg Documented By: BOY Nifedipine (Nifedipine Er 90 Mg Tab.Er.24) 90 mg PO BID [facility]; Protocol Last Admin: 07/12/24 07:52 Dose: 90 mg Documented By: BOY Ondansetron HCl (Ondansetron Hcl 4 Mg/2 Ml Vial) 4 mg IVPUSH Q8H PRN PRN Reason: Nausea and Vomiting Last Admin: 07/12/24 09:00 Dose: 4 mg Documented By: BOY Oxycodone HCl (Oxycodone Hcl Immed Release 5 Mg Tablet) 5 mg PO Q6H PRN PRN Reason: Pain, Moderate(Pain Scale 4-6) Last Admin: 07/12/24 15:17 Dose: 5 mg Documented By: BOY Prochlorperazine Maleate (Prochlorperazine Maleate 5 Mg Tablet) 5 mg PO BID [facility] Last Admin: 07/12/24 07:51 Dose: 5 mg Documented By: BOY Sacubitril/Valsartan (Sacubitril/Valsartan 24/26 1 Tab Tablet) 1 tab PO DAILY [facility]; Protocol Last Admin: 07/12/24 08:03 Dose: 1 tab Documented By: BOY Sodium Chloride (0.9 % Sodium Chloride Flush 3 Ml Syringe) 3 ml IVFLUSH QSHIFT [facility] Last Admin: 07/12/24 15:14 Dose: 3 ml Documented By: BOY Spironolactone (Spironolactone 25 Mg Tablet) 25 mg PO DAILY [facility]; Protocol Last Admin: 07/12/24 07:52 Dose: 25 mg Documented By: BOY Trimethoprim/Sulfamethoxazole (Sulfamethox/Trimeth 400/80 Tablet) 1 tab PO Q12H [facility] Stop: 07/14/24 13:59 Last Admin: 07/12/24 15:13 Dose: 1 tab Documented By: BOY Labs 07/12/24 06:27 07/12/24 06:27 Labs: Laboratory Results - last 24 hr 07/11/24 07/11/24 07/12/24 16:22 20:19 06:27 MCV 94.9 MCH 33.7 H MCHC 35.5 H RDW 13.9 Plt Count 394 MPV 9.4 Absolute Nucleated RBC 0.000 Nucleated RBC % (auto) 0.0 Anion Gap 16 Estim Creat Clear Calc 12.9 Estimated GFR 9 POC Glucose 134 H 185 H Random Glucose 131 H Calcium 8.6 D 07/12/24 07/12/24 07:08 11:15 MCV MCH MCHC RDW Plt Count MPV Absolute Nucleated RBC Nucleated RBC % (auto) Anion Gap Estim Creat Clear Calc Estimated GFR POC Glucose 113 150 H Random Glucose Calcium Microbiology Microbiology Results: Microbiology 07/10/24 Unknown Urine Culture - Final Urine clean catch - Clean Catch Midstream No growth. 07/10/24 22:40 Blood Culture - Preliminary Blood - Venous No growth after 24 hours. 07/10/24 22:40 Blood Culture - Preliminary Blood - Venous No growth after 24 hours. Assessment and Plan (1) Postural dizziness: Status: Acute (2) Cocaine use: Status: Acute (3) New onset seizure: Status: Acute (4) Hypertensive emergency: Status: Acute Plan Patient is a 44-year-old female with a past medical history significant for HTN, ESRD on HD MWF, solitary seizure as child, HFpEF, history DVT, type 2 diabetes, lupus, Sjogren's, mood disorder, substance use disorder presented to ED after a seizure around 16:00. she reported missing dialysis on Thursday and skipped her BP meds today followed by cocaine use. sepsis secondary to UTI infection vs leukocytosis related to seizure attack negative urine and blood cultures x2 , she was on Abx as outpatient continue bactrim DC Levaquin given new seizure seizure secondary to hypertensive emergency BP improved CT head/c-spine negative resume home meds neurology consult, keppra 500 mg bid continue seizure precautions Dizziness unsteady on her feet, legally blind right eye elevated troponin secondary to ESRD and seizure EKG normal, no chest pain Acute metabolic acidosis in ESRD on HD MWF missed HD Thursday nephrology consult CHAY used cocaine addiction med consult chronic HFpEF, no acute exacerbation T2DM hold PO meds, A1c 5.3 sliding scale insulin diabetic deit mood disorder continue home meds full code VTE prophy: heparin requiring overnight stay for need of dialysis, antibiotics, Seizure monitoring, addiction team eval Quality Stroke Does the patient have a stroke diagnosis?: No VTE Prior VTE?: Yes VTE Risk Level:: Medical - moderate - high VTE Device Contraindication: Treatment Not Indicated VTE Drug Contraindication: N/A - Med Ordered
--- NOTE | 2024-07-12 15:36 | MHC.CM.PN ---
EMR reviewed and per MD rounds, pt is not medically cleared for discharge today, anticipating pt will discharge home tomorrow 07/13 after HD.
[2024-07-12 16:20] LABS: Glucose, Whole Blood 126 mg/dL (60-115)
[2024-07-12 19:39] VITALS: BP 152/78; PULSE 69; RESP 18; TEMP 37.2; O2SAT 97
[2024-07-12 20:05] LABS: Glucose, Whole Blood 180 mg/dL (60-115)
[2024-07-12 23:24] VITALS: BP 144/71; PULSE 59; RESP 18; TEMP 36.8; O2SAT 94
[2024-07-13] MEDS: Sulfamethox/Trimeth 400/80 TABLET 1 TAB PO (02:09)
[2024-07-13 03:06] VITALS: BP 120/72; PULSE 61; RESP 16; TEMP 37.1; O2SAT 98
[2024-07-13 06:59] LABS: Hematocrit 33.2 % (37.0-47.0); Hemoglobin 11.8 g/dl (12.0-16.0); Mean Corpuscular HGB Conc 35.5 g/dl (31.0-35.0); Mean Corpuscular Hemoglobin 33.7 pg (27.0-33.0); Mean Corpuscular Volume 94.9 fL (80.0-98.0); Mean Platelet Volume 9.1 fL (9.4-12.3); Platelet Count 363 X10*3/uL (160-400); Red Cell Distribution Width 13.4 % (11.0-16.0); White Blood Count 8.5 X10*3/uL (4.8-10.8)
[2024-07-13 07:15] VITALS: BP 164/91; PULSE 53; RESP 17; TEMP 36.2; O2SAT 98
[2024-07-13 07:23] LABS: Glucose, Whole Blood 128 mg/dL (60-115)
[2024-07-13 07:30] LABS: Anion Gap 16 (12-20); Blood Urea Nitrogen 39 mg/dL (9-16); Calcium 8.2 mg/dL (8.4-10.2); Carbon Dioxide 23 mmol/L (22-29); Chloride 101 mmol/L (96-108); Creatinine Clr Calc Pharmacy 14.9; Estimated Glomerular Filt Rate 10; Glucose Random 119 mg/dL (60-115); Potassium 3.6 mmol/L (3.3-5.1); Sodium 136 mmol/L (135-145)
[2024-07-13] MEDS: ondansetron HCL 4 MG/2 ML VIAL IVPUSH (10:27)
[2024-07-13] MEDS: Nicotine 14 MG PATCH.TD24 TRANSDERMA (10:28)
[2024-07-13] MEDS: cloNIDine HCL 0.1 MG TABLET PO (10:29)
[2024-07-13] MEDS: oxyCODONE HCl Immed Release 5 MG TABLET PO (10:29)
[2024-07-13] MEDS: levETIRAcetam 500 MG TABLET PO (10:29)
[2024-07-13] MEDS: Spironolactone 25 MG TABLET PO (10:30)
[2024-07-13] MEDS: carvediloL 25 MG TABLET 50 MG PO (10:30)
[2024-07-13] MEDS: Multivitamin TABLET 1 TAB PO (10:30)
[2024-07-13] MEDS: Sacubitril/Valsartan 24/26 1 TAB TABLET PO (10:30)
[2024-07-13] MEDS: Prochlorperazine Maleate 5 MG TABLET PO (10:30)
[2024-07-13] MEDS: 0.9 % Sodium Chloride Flush 3 ML SYRINGE IVFLUSH (10:30)
[2024-07-13] MEDS: NIFEdipine ER 90 MG TAB.ER.24 PO (10:30)
[2024-07-13 10:36] VITALS: BP 142/80
[2024-07-13 10:58] VITALS: BP 142/80; PULSE 59; RESP 17; TEMP 36.2; O2SAT 100
[2024-07-13 11:47] LABS: Glucose, Whole Blood 295 mg/dL (60-115)
--- NOTE | 2024-07-13 12:06 | P.DS_ITS ---
DS: Providers Provider Date of Service: 07/13/24 Date of admission: 07/10/24 23:12 Date of discharge: 07/13/24 Primary care physician: ARRON BenitezP- Consults: 07/11/24 00:35 Consult to Nephrology Routine Consulting Provider: [facility] Reason for consultation: on HD MWF, missed Thursday07/11/24 00:37 Consult to Neurology Routine Consulting Provider: [facility] Reason for consultation: ?seizure Has provider been notified: No 07/11/24 00:39 Addiction Medicine Provider Routine Consulting Provider: Addiction Covering Reason for consultation: cocaine use, seizure Has provider been notified: No 07/12/24 11:17 Inpt - Recovery Team Routine Comment: Reason for consultation: CHAY eval DS: Diagnosis Discharge Diagnosis (1) Postural dizziness: Status: Acute (2) Cocaine use: Status: Inactive (3) New onset seizure: Status: Resolved (4) Hypertensive emergency: Status: Resolved DS: Summary Hospital Course Hospital Course: Admission note HPI Patient is a 44-year-old female with a past medical history significant for HTN, ESRD on HD MWF, solitary seizure as child, HFpEF history DVT type 2 diabetes lupus, Sjogren's, mood disorder, substance use disorder presented to ED after a seizure around 16:00 The pt reports she missed dialysis Thursday morning due to family issues and felt weak later in the day and fell backwards down the stairs at home. she denies head strike or LOC. She also reports that she has severely elevated blood pressure and missed taking her blood pressure medications completely today. She takes clonidine, nifedipine, spironolactone, Entresto and carvedilol. today she had a witnessed seizure around 16:00, which prompted her ED visit. she has had a seizure one other time as a child, has never been on seizure medications. she notes mild blurry vision upon arrival as well as cocaine use today just prior to arrival. She does not produce much urine, and denies any urinary symptoms including frequency, urgency dysuria. Hospital course The patient was treated for: # New onset seizure likely secondary to hypertensive emergency and missing dialysis. No recurrenct while inpatient. BP improved with IV and PO medicaitons and doing dialysis. CT head/c-spine negative. EEG negative as patient was started on Keppra. neurology consult, keppra 500 mg bid and to do an MRI which will be done as outpatient with a plan to follow with Neurology. # sepsis secondary to UTI at time of presentation. Unclear if she had infection vs leukocytosis related to seizure attack as negative urine and blood cultures x2 , she was on Abx as outpatient and received bactrim. Will stop antibiotics at time of discharge. Avoid Levaquin given new seizure. # Dizziness. unsteady on her feet, legally blind right eye. No evidence of stroke on CT\CTA. # elevated troponin, secondary to ESRD and seizure along with hypertensive emergency. EKG normal, no chest pain. # Acute metabolic acidosis in ESRD on HD MWF. missed HD Thursday. Resolved after 3 sessions of dilaysis while inpatient. to continue her Dialysis outpatient. Nephrology followed and recommended no change in her current medications. # CHAY, used cocaine. addiction med consulted and asked to follow as needed outp atient. advised to avoid drugs. Discharge plan Start Keppra 500 mg two times a Day To do MRI brain Follow with neurology as outpatient Stick to your dialysis schedule Avoid using drugs Time Attestation Discharge Coordination Time (in mins): 42 Quality: Safe Use of Opioids Does Pt have an Active Cancer Diagnosis on the Problem List?: No Quality: Stroke Does the patient have a stroke diagnosis?: No Physical Exam Vital Signs: Vital Signs: Last Vital Signs Temp 97.2 F 07/13/24 10:58 Pulse 59 07/13/24 10:58 Resp 17 07/13/24 10:58 BP 142/80 H 07/13/24 10:58 Pulse Ox 100 07/13/24 10:58 O2 Del Method Room Air 07/13/24 10:58 BMI result Body Mass Index 24.2 Const: Other: Constitutional : Awake, interactive, not in distress Eyes: right eye blindness Neck : Normal inspection, Supple Cardiovascular : RRR, no JVP, no lower extremity edema Respiratory : good bilateral air entry, no crackles, wheezes or rhonchi Gastrointestinal: soft, lax, Normal bowel sounds, Non tender Skin : Warm, Dry, Neurological : Alert & oriented x3, No focal deficit DS: Data Data Completed and Pending Completed studies during hospitalization [Text1]: Procedures Drainage of Left Knee Joint, Percutaneous Approach (01/07/21) Fluoroscopy of Inferior Vena Cava, Guidance (06/07/23) Insertion of Infusion Device into Superior Vena Cava, Percutaneous Approach (06/07/23) Insertion of Tunneled Vascular Access Device into Chest Subcutaneous Tissue and Fascia, Percutaneous Approach (06/07/23) Performance of Urinary Filtration, Intermittent, Less than 6 Hours Per Day (05/22/24) Labs on day of discharge: Laboratory Results - last 24 hr 07/12/24 07/12/24 07/13/24 16:13 20:02 06:30 WBC 8.5 RBC 3.50 L Hgb 11.8 L Hct 33.2 L MCV 94.9 MCH 33.7 H MCHC 35.5 H RDW 13.4 Plt Count 363 MPV 9.1 L Absolute Nucleated RBC 0.000 Nucleated RBC % (auto) 0.0 Sodium 136 Potassium 3.6 Chloride 101 Carbon Dioxide 23 Anion Gap 16 BUN 39 H Creatinine 4.59 H* Estim Creat Clear Calc 14.9 Estimated GFR 10 POC Glucose 126 H 180 H Random Glucose 119 H Calcium 8.2 L 07/13/24 07/13/24 07:20 11:44 WBC RBC Hgb Hct MCV MCH MCHC RDW Plt Count MPV Absolute Nucleated RBC Nucleated RBC % (auto) Sodium Potassium Chloride Carbon Dioxide Anion Gap BUN Creatinine Estim Creat Clear Calc Estimated GFR POC Glucose 128 H 295 H Random Glucose Calcium Preliminary micro results at discharge 07/10/24 22:40 Blood Culture - Preliminary Blood - Venous No growth after 48 hours. 07/10/24 22:40 Blood Culture - Preliminary Blood - Venous No growth after 48 hours. Imaging Chest x-ray: Radiologist's impression: CT Head IMPRESSION: 1. No acute intracranial findings. This document has been electronically signed by: Kevin Cerda MD on 07/10/2024 21:16:32 CT Neck IMPRESSION: No acute fracture. This document has been electronically signed by: Kevin Cerda MD on 07/10/2024 21:04:19 Discharge Plan Discharge Anticipated Discharge Date/Time: 07/12/24 15:18 Patient Disposition: Home, Self-Care Discharge Diagnosis: New onset seizure Hypertensive urgency Referrals: Mauricio Nolasco, [facility] [Primary Care Provider] - 1 Week Discharge Medications: New levetiracetam 500 mg Tablet 500 mg PO BID Qty: 180 0RF (DME) Ultra-Light Rollator Misc See Rx Instructions .Route Qty: 1 0RF Rx Instructions: As directed Continued (DME) lancets [FreeStyle Lancets] 28 gauge misc See Rx Instructions .Route Qty: 100 4RF Rx Instructions: As directed- tests 4X/day (DME) blood pressure test kit-large Kit See Rx Instructions .Route Qty: 1 0RF Rx Instructions: daily use (DME) pen needle, diabetic 32 gauge x 1/4 needle Qty: 100 0RF Rx Instructions: Use four times a day or as directed. nicotine [Nicoderm CQ] 14 mg/24 hr patch 24 hour 1 patch transdermal DAILY Qty: 28 0RF albuterol sulfate 90 mcg/actuation HFA aerosol inhaler 1 inh inhalation QID PRN (Reason: Wheezing) 30 Days Qty: 8.5 1RF carvedilol 25 mg tablet 50 mg PO BID nifedipine 90 mg tablet extended release 24hr 90 mg PO BID (DME) FreeStyle Lite Strips Strip Qty: 100 0RF Rx Instructions: Test four times a day or as directed. (DME) blood-glucose meter [FreeStyle Lite Meter] Kit Qty: 1 0RF Rx Instructions: As Directed (DME) lancets [FreeStyle Lancets] 28 gauge misc Qty: 100 0RF Rx Instructions: Test four times a day or as directed. clonidine HCl 0.1 mg tablet 0.1 mg PO BID ondansetron 4 mg tablet,disintegrating 4 mg PO Q8H PRN (Reason: Nausea And Vomiting) prochlorperazine maleate 5 mg tablet 5 mg PO BID spironolactone 25 mg tablet 25 mg PO DAILY Jaclyn-Elias 0.8 mg tablet 1 tab PO DAILY famotidine 20 mg tablet 20 mg PO DAILY PRN (Reason: Heartburn) clotrimazole-betamethasone 1-0.05 % cream 1 appl topical BID PRN (Reason: Rash) Entresto 24-26 mg tablet 1 tab PO DAILY Protocol: Hold for SBP< HOLD for SBP < : 90 (DME) blood-glucose meter [FreeStyle Lite Meter] Kit See Rx Instructions .Route Qty: 1 0RF Rx Instructions: As directed tests 4 X/day (DME) FreeStyle Lite Strips Strip See Rx Instructions .Route Qty: 100 5RF Rx Instructions: As directed- tests 4X/day Discharge Orders: Discharge Order (Routine); Ordered 07/13/24 Ordered By: Christophe Dennis Diet: Low salt diet Activity on Discharge: As tolerated Stand Alone Forms: Patient Portal Discharge page Print Language: Azeri Other Ambulatory Orders: MR head/brain wo con (Routine) Timeframe: 1 Week Facility: [facility] - Location: MRI Ordered By: Christophe Dennis Care Plan Goals: Start Keppra 500 mg two times a Day To do MRI brain Follow with neurology as outpatient Stick to your dialysis schedule Avoid using drugs Health Concerns: Seizure Hypertension Plan of Treatment: Keppra MRI Outpatient Neurology Assessment: as above
--- NOTE | 2024-07-13 12:20 | MHC.CM.PN ---
Patient has been medically cleared for dc to home today, self care. Last IMM was addressed on 07/11/2024.
== END 2024-07-13 12:00 | disposition home or self-care (01) | DRG 871 ==
LOC: HO.ED 22:49 → HO.EDOVER 23:26 → HO.IMC 07-11 14:14
PROVIDERS: Admitting Provider Physician Assistant; Emergency Provider Internal Medicine; PCP Nurse Practitioner Family; Visit Provider Student in an Organized Health Care Education/Training Program
DX: A41.9 Sepsis, unspecified organism (principal); N18.6 End stage renal disease; I13.2 Hypertensive heart and chronic kidney disease with heart failure and with stage 5 chronic kidney disease, or end stage renal disease; I16.1 Hypertensive emergency; I50.32 Chronic diastolic (congestive) heart failure; E87.21 Acute metabolic acidosis; M35.00 Sjogren syndrome, unspecified; F14.90 Cocaine use, unspecified, uncomplicated; F39 Unspecified mood [affective] disorder; R56.9 Unspecified convulsions; D63.1 Anemia in chronic kidney disease; E83.51 Hypocalcemia; F17.210 Nicotine dependence, cigarettes, uncomplicated; Z71.6 Tobacco abuse counseling; E11.22 Type 2 diabetes mellitus with diabetic chronic kidney disease; Z99.2 Dependence on renal dialysis; Z91.158 Patient's noncompliance with renal dialysis for other reason; Z79.899 Other long term (current) drug therapy
CPT/HCPCS: 36415; 70450; 72125; 80048; 80053; 81001; 82947; 83036; 83605; 83735; 84484; 85025; 85027; 85610; 85730; 87040; 87086; 90999; 93005; 95816; 99285; J0737; J1920; J1953; J1956; J2270; J2405; S9485

== ENCOUNTER → 2024-07-10 19:14 | Outpatient (BNV) | payer MEDICARE, MEDICAID, SELFPAY ==
[2023-05-18 13:38] VITALS: BP 190/120; BMI 29.0
== END ==
PROVIDERS: Admitting Provider Physician Assistant; Emergency Provider Internal Medicine; PCP Nurse Practitioner Family; Visit Provider Internal Medicine Cardiovascular Disease
DX: I45.81 Long QT syndrome (principal)
CPT/HCPCS: 93010

== ENCOUNTER → 2024-07-10 20:10 | Outpatient (BNV) | payer MEDICARE, MEDICAID, SELFPAY ==
[2023-05-18 13:38] VITALS: BP 190/120; BMI 29.0
== END ==
PROVIDERS: Emergency Provider Internal Medicine; PCP Nurse Practitioner Family; Visit Provider Radiology Diagnostic Radiology
DX: R56.9 Unspecified convulsions (principal); W19.XXXA Unspecified fall, initial encounter
CPT/HCPCS: 70450; 72125

== ENCOUNTER → 2024-07-10 23:12 | Outpatient (BNV) | payer MEDICARE, MEDICAID, SELFPAY ==
[2023-05-18 13:38] VITALS: BP 190/120; BMI 29.0
== END ==
PROVIDERS: Admitting Provider Physician Assistant; Emergency Provider Internal Medicine; PCP Nurse Practitioner Family; Visit Provider Psychiatry & Neurology Neurology
DX: R56.9 Unspecified convulsions (principal)
CPT/HCPCS: 99222

== ENCOUNTER → 2024-07-10 23:12 | Outpatient (BNV) | payer MEDICARE, MEDICAID, SELFPAY ==
[2023-05-18 13:38] VITALS: BP 190/120; BMI 29.0
== END ==
PROVIDERS: Admitting Provider Physician Assistant; Emergency Provider Internal Medicine; PCP Nurse Practitioner Family; Visit Provider Nurse Practitioner Psychiatric/Mental Health
DX: F14.90 Cocaine use, unspecified, uncomplicated (principal)
CPT/HCPCS: 99222; 99499

== ENCOUNTER → 2024-07-10 23:12 | Outpatient (BNV) | payer MEDICARE, MEDICAID, SELFPAY ==
[2023-05-18 13:38] VITALS: BP 190/120; BMI 29.0
== END ==
PROVIDERS: Admitting Provider Physician Assistant; Emergency Provider Internal Medicine; PCP Nurse Practitioner Family; Visit Provider Student in an Organized Health Care Education/Training Program
DX: R56.9 Unspecified convulsions (principal); I16.1 Hypertensive emergency; R42 Dizziness and giddiness; F14.90 Cocaine use, unspecified, uncomplicated
CPT/HCPCS: 99223; 99232; 99239; 99499

== ENCOUNTER → 2024-07-26 16:02 | Outpatient (BNVA) | payer MEDICARE, MEDICAID, SELFPAY ==
[2023-05-18 13:38] VITALS: BP 190/120; BMI 29.0
== END ==
PROVIDERS: PCP Nurse Practitioner Family

== ENCOUNTER 2024-12-18 05:31 | Inpatient (IN) | payer MEDICARE, MEDICAID, SELFPAY ==
[2024-10-11 08:46] VITALS: BP 190/120; BMI 29.0
[2024-12-18] VITALS (10 sets, daily range): BP systolic 118–226; BP diastolic 72–132; PULSE 72–91; RESP 17–20; TEMP 36.3–36.8; O2SAT 93–99; BMI 25.6; BMI 25.8
--- NOTE | 2024-12-18 | ECG_ITS ---
Test Reason : CP Blood Pressure : */* mmHG Vent. Rate : 83 BPM Atrial Rate : 83 BPM P-R Int : 166 ms QRS Dur : 96 ms QT Int : 390 ms P-R-T Axes : 56 -9 114 degrees QTcB Int : 458 ms Normal sinus rhythm Left ventricular hypertrophy with repolarization abnormality ( R in aVL , [place] product ) Abnormal ECG When compared with ECG of 10-Jul-2024 19:14, T wave inversion less evident in Lateral leads QT has shortened Referred By: Generic ED Physician Electronically Signed By: TIFFANIE SWANN MD
--- NOTE | ~2024-12-18 | XR_ITS ---
CLINICAL HISTORY: chest pain 1 view chest x-ray Comparison: CT/SR - CT ANGIO CHEST PE PROTOCOL - 05/22/24 11:12 EST Findings: There is patchy right basilar density. Normal size heart. No acute fracture. Old left 7th rib fracture. IMPRESSION: Probable right lower lobe infiltrate. Follow-up recommended. This document has been electronically signed by: Barrett Trevizo MD on 12/18/2024 07:28:41
[2024-12-18] MEDS: Nitroglycerin 2 % Oint 1 GM Packet 1 INCH TRANSDERMA (05:50)
[2024-12-18 05:58] LABS: Hematocrit 32.6 % (37.0-47.0); Hemoglobin 11.4 g/dl (12.0-16.0); Imm Gran Abs Auto 0.02 X10*3/uL (0.00-0.03); Imm Gran Pct Auto 0.2 % (0.0-0.4); Lymphocytes Absolute Auto 1.8 X10*3/uL (1.2-4.9); MANUAL DIFF FLAG NO; Mean Corpuscular HGB Conc 35.0 g/dl (31.0-35.0); Mean Corpuscular Hemoglobin 33.4 pg (27.0-33.0); Mean Corpuscular Volume 95.6 fL (80.0-98.0); NRBC Abs Auto 0.000 X10*3/uL (0.0-0.012); NRBC Pct Auto 0.0 /100WBC (0.0-0.2); Platelet Count 393 X10*3/uL (160-400); Red Blood Count 3.41 X10*6/uL (4.20-5.50); White Blood Count 10.1 X10*3/uL (4.8-10.8)
--- NOTE | 2024-12-18 06:16 | ED.CHESTPAIN ---
HPI - Chest Pain General Chief Complaint: Chest Pain Stated Complaint: Chest pain, Hypertension Time Seen by Provider: 12/18/24 06:16 History of Present Illness ED Provider: Karen NEWMAN narrative: The patient is a 44-year-old female with a history of chronic renal failure on dialysis. She goes to dialysis on Mondays, Wednesdays, and Fridays. She had dialysis 2 days ago. She says that they were able to take off less fluid than usual. She says that she was 78 kilos on Thursday and they were only able to get her down to 74 kilos. She says that she normally weighs 71 kilos. The patient says that she was fine yesterday during the day but yesterday evening she had an episode of nausea and vomiting. This morning she woke up and had pressure-like chest pain that radiated to her back in her arm. She also had an episode of vomiting this morning. Because of the chest pain she called 911 and she was brought to the hospital. She who was hypertensive, which is common for her on arrival here and she was given nitro paste with improvement in her chest pain. Her chest pain has come down from a 10/10 to a 3/10. She currently says she feels fairly comfortable. No significant cough. No fever, sweats, chills. Related Data Home Medications ?Medication ?Instructions ?Recorded ?Confirmed carvedilol 25 mg tablet 50 mg PO BID 03/20/22 07/14/24 nifedipine 90 mg tablet,extended 90 mg PO BID 04/22/22 07/14/24 release 24 hr clotrimazole-betamethasone 1 1 appl topical BID PRN Rash 05/22/24 07/14/24 %-0.05 % topical cream famotidine 20 mg tablet 20 mg PO DAILY PRN Heartburn 05/22/24 07/14/24 prochlorperazine maleate 5 mg 5 mg PO BID 05/22/24 07/14/24 tablet sacubitril 24 mg-valsartan 26 mg 1 tab PO DAILY 05/22/24 07/14/24 tablet (Entresto) spironolactone 25 mg tablet 25 mg PO DAILY 05/22/24 07/14/24 vitamin B complex-vitamin C-folic 1 tab PO DAILY 02/16/25 04/10/25 acid 0.8 mg tablet (Jaclyn-Elias) clonidine HCl 0.1 mg tablet 0.1 mg PO BID 07/11/24 07/14/24 ondansetron 4 mg disintegrating 4 mg PO Q8H PRN Nausea And Vomiting 07/11/24 07/14/24 tablet Previous Rx's ?Medication ?Instructions ?Recorded lancets 28 gauge (FreeStyle #100 ea 03/20/22 Lancets) blood pressure test kit-large #1 ea 03/25/22 blood sugar diagnostic (FreeStyle #100 ea 05/18/23 Lite Strips) blood-glucose meter (FreeStyle #1 ea 05/18/23 Lite Meter kit) blood sugar diagnostic (FreeStyle #100 ea 06/09/23 Lite Strips) blood-glucose meter (FreeStyle #1 ea 06/09/23 Lite Meter kit) lancets 28 gauge (FreeStyle #100 ea 06/09/23 Lancets) pen needle, diabetic 32 gauge x #100 ea 10/04/23/ nicotine 14 mg/24 hr daily 1 patch transdermal DAILY #28 ea 04/15/24 transdermal patch (Nicoderm CQ) albuterol sulfate 90 mcg/actuation 1 inh inhalation QID PRN Wheezing 06/05/24 aerosol inhaler 30 days #8.5 grams levetiracetam 500 mg tablet 500 mg PO BID #180 tabs 07/12/24 walker (Ultra-Light Rollator misc) #1 ea 07/12/24 Allergies Allergy/AdvReac Type Severity Reaction Status Date / Time amoxicillin Allergy Unknown rash Verified 12/18/24 05:40 cefaclor (From Ceclor) Allergy Unknown RASH Verified 12/18/24 05:40 cephalexin Allergy Unknown rash Verified 12/18/24 05:40 Cephalosporins Allergy Unknown RASH ALL Verified 12/18/24 05:40 (CEPHALOSPORINS) OVER cephradine (From VELOSEF) Allergy Unknown RASH Verified 12/18/24 05:40 Penicillins (PENICILLINS) Allergy Unknown RASH Verified 12/18/24 05:40 gabapentin (GABAPENTIN) AdvReac Unknown RESTLESS Verified 12/18/24 05:40 LEGS, Body becomes very uncomfortable Review of Systems Review of Systems: Yes all other systems are reviewed and are negative PMFSH Past Medical History Medical History Legally blind Vascular dialysis catheter in place Hypertensive retinopathy Macular edema Diabetic retinopathy Hyperglycemia CHF (congestive heart failure) Hypertensive urgency Malignant hypertension CKD (chronic kidney disease) Heart block AV second degree Hypersomnia Cardiomyopathy CKD (chronic kidney disease) stage 2, GFR 60-89 ml/min Nicotine dependence, cigarettes, uncomplicated (~1999) Eclampsia Fatty liver Heart failure, unspecified (~09/2020) History of DVT (deep vein thrombosis) Diabetes mellitus Migraines Sjogren's disease Lupus Rheumatoid arthritis High cholesterol Anxiety PTSD (post-traumatic stress disorder) Bipolar 1 disorder H/O mixed connective tissue disease HTN (hypertension) Surgical History History of H/O eye surgery History of hip surgery Tubal ligation status History of bronchoscopy (~11/2020) History of cholecystectomy (~05/2014) Family History Family History Father Substance use disorder Mental health disorder Brother Substance use disorder Mental health disorder Brother Substance use disorder Mental health disorder Other Diabetes HTN (hypertension) Social History Social History Household Members: Family Household Members Other:: 3 Housing: House Are you a primary resident care assistant to a significant other at home: No Do you presently have visiting nurse or other home services: No Alcohol intake: never Patient Tobacco Use Status: Current everyday Tobacco user Tobacco use type: Cigarette Cigarette Packs Per Day: 1 Cigarettes Per Day: 5 Years Smoked: 20 Smoked in Last 30 Days: Yes e-Cigarette/Vaping Use: Never Used Second Hand Smoke Exposure: No Use of substances other than those prescribed or required for medical reasons: No Substance Use Type: Crack/Cocaine and Marijuana Advance Directives: Yes Advance Directives on File: Yes Advance Directives Date on File: 06/03/21 service: No Current occupational status: disabled Cognitive needs: No Hearing needs: No Vision needs: No Physical Exam Vital Signs: Vital Signs: Last Vital Signs Temp 98.3 F 12/18/24 05:37 Pulse 79 12/18/24 07:45 Resp 19 12/18/24 05:37 BP 175/95 H 12/18/24 07:46 Pulse Ox 99 09/14/25 05:37 O2 Del Method Room Air 12/18/24 05:37 BMI result Body Mass Index 25.6 Const: Other: The patient is a 44-year-old woman who was awake, alert, pleasant, cooperative. She does not appear in any distress. She looks somewhat chronically ill but not obviously acutely ill. She has a cheerful demeanor. Orientation/consciousness: patient oriented x3 HEENT: Other: The face is symmetrical. ?Mucous membranes moist. Eyes: Other: Pupils are round equal, conjunctivae are clear, extraocular movements intact General: appearance normal, both eyes and all related structures Neck: Neck: Yes normal visual inspection and Yes full ROM Resp: Effort & Inspection: normal respiratory effort Auscultation: clear to auscultation bilaterally Cardio: Rate: regular rate Rhythm: regular rhythm Heart sounds: S1 normal heart sound present and S2 normal heart sound present GI: Other: Abdomen is soft and nontender Skin: Other: The skin is dry and unremarkable General skin exam: no rashes or lesions noted Neuro: General: patient oriented x3, tone normal, moves all extremities, no focal motor deficits and CN's II-XI intact bilaterally Extrem: Other: There is no calf swelling or tenderness. No asymmetry. No peripheral edema. Medications Administered Generic Name Dose Route Start Last Admin Trade Name Freq PRN Reason Stop Dose Admin Heparin Sodium (Porcine) 5,000 unit 12/18/24 09:00 12/18/24 09:10 Heparin Sodium,Porcine 5,000 Unit/Ml Vial SUBCUT Not Given Q12H BRIAN Discontinued Medications Generic Name Dose Route Start Last Admin Trade Name Freq PRN Reason Stop Dose Admin Aspirin 325 mg 12/18/24 05:45 12/18/24 05:52 Aspirin 325 Mg Tablet PO 12/18/24 05:46 325 mg ONCE ONE Administration Carvedilol 50 mg 12/18/24 06:46 12/18/24 07:45 Carvedilol 25 Mg Tablet PO 12/18/24 06:47 50 mg ONCE ONE Administration Protocol Clonidine HCl 0.1 mg 12/18/24 06:46 12/18/24 07:46 Clonidine Hcl 0.1 Mg Tablet PO 12/18/24 06:47 0.1 mg ONCE ONE Administration Protocol Dextrose 25 gm 12/18/24 07:58 12/18/24 08:01 Dextrose 50 % 25 Gm/50 Ml Syringe IVPUSH 12/18/24 07:59 25 gm ONCE ONE Administration Fentanyl 25 mcg 12/18/24 07:21 12/18/24 07:28 Fentanyl Citrate/Pf 100 Mcg/2 Ml Vial IVPUSH 12/18/24 07:22 25 mcg ONCE ONE Administration Protocol Calcium Gluconate 2 gm in 100 mls @ 400 mls/hr 12/18/24 06:28 12/18/24 07:33 Calcium Gluconate IV 12/18/24 06:42 Infused ONCE ONE Infusion Insulin Human Regular 5 unit 12/18/24 06:32 12/18/24 08:01 Insulin Regular, Human 100 Unit/Ml 10 Ml Vial IVPUSH 12/18/24 06:33 5 unit ONCE ONE Administration Nitroglycerin 1 inch 12/18/24 05:44 12/18/24 05:50 Nitroglycerin 2 % Oint 1 Gm Packet TRANSDERMA 12/18/24 05:45 1 inch ONCE ONE Administration Ondansetron HCl 4 mg 12/18/24 07:21 12/18/24 07:28 Ondansetron Hcl 4 Mg/2 Ml Vial IVPUSH 12/18/24 07:22 4 mg ONCE ONE Administration Sodium Zirconium Cyclosilicate 10 gm 12/18/24 06:28 12/18/24 07:01 Sodium Zirconium Cyclosilicate 10 Gm Powd.Pack PO 12/18/24 06:29 10 gm ONCE ONE Administration Medical Decision Making Medical Decision Making [facility] Narrative: The patient is a 44-year-old woman who presents with a complaint of chest pain. Her EKG does not look remarkably different. She is quite hypertensive but that is not uncommon for her. She does not look remarkably uncomfortable. She looked comfortable. She has negative troponins. However her potassium came back at 6.9. She was therefore given treatment for hyperkalemia with IV calcium, IV insulin and glucose, and oral Lokelma. At the time that her 2nd troponin was drawn I also repeated a basic metabolic panel. I was somewhat surprised that her potassium had gone up to 7.2. However it may have been the case that the patient had the repeat labs drawn at around the same time that she was given the IV insulin. In any event I also ordered a treatment of 10 mg of albuterol sulfate. The patient's coiler is Dr. Duarte. I contacted the covering coiler, Dr. Judge. The patient will be admitted to the hospitalist service for dialysis today. Lab Data 12/18/24 05:53 12/18/24 08:06 Labs: Lab Results 12/18/24 12/18/24 Range/Units 05:53 07:43 WBC 10.1 (4.8-10.8) X10*3/uL RBC 3.41 L (4.20-5.50) X10*6/uL Hgb 11.4 L (12.0-16.0) g/dl Hct 32.6 L (37.0-47.0) % MCV 95.6 (80.0-98.0) fL MCH 33.4 H (27.0-33.0) pg MCHC 35.0 (31.0-35.0) g/dl RDW 13.0 (11.0-16.0) % Plt Count 393 (160-400) X10*3/uL MPV 9.0 L (9.4-12.3) fL Immature Gran % (Auto) 0.2 (0.0-0.4) % Neut % (Auto) 68.8 (45-73) % Lymph % (Auto) 17.3 L (20-40) % [place]eman % (Auto) 9.3 (2-11) % Eos % (Auto) 3.5 (0-4) % Baso % (Auto) 0.9 (0-2) % Lymph # (Auto) 1.8 (1.2-4.9) X10*3/uL [place]eman # (Auto) 0.9 (0.1-1.2) X10*3/uL Eos # (Auto) 0.4 (0.0-0.4) X10*3/uL Baso # (Auto) 0.1 (0.0-0.2) X10*3/uL Abs Immat Gran (auto) 0.02 (0.00-0.03) X10*3/uL Absolute Neuts (auto) 7.0 (2.0-8.3) x10*3/uL Absolute Nucleated RBC 0.000 (0.0-0.012) X10*3/uL Nucleated RBC % (auto) 0.0 (0.0-0.2) /100WBC Sodium 134 L (135-145) mmol/L Potassium 6.9 H* D (3.3-5.1) mmol/L Chloride 103 (96-108) mmol/L Carbon Dioxide 20 L (22-29) mmol/L Anion Gap 18 (12-20) BUN 53 H (9-16) mg/dL Creatinine 5.87 H* (0.5-1.4) mg/dL Estim Creat Clear Calc 13.1 Estimated GFR 8 POC Glucose 105 (60-115) mg/dL Random Glucose 130 H (60-115) mg/dL Calcium 8.7 D (8.4-10.2) mg/dL Magnesium 2.0 (1.6-2.6) mg/dL Total Bilirubin 0.6 (0.0-1.0) mg/dL AST 15 (5-31) U/L ALT 10 (0-31) U/L Alkaline Phosphatase 114 (39-117) U/L Troponin I High Sens 15.3 D (<3.5-17.0) ng/L B-Natriuretic Peptide 2034 H (<100) pg/mL Total Protein 6.9 (6.5-8.0) g/dL Albumin 4.3 (3.5-5.0) g/dL Independent Interpretation I performed an independent interpretation of an: EKG Interpretation: EKG at 06/11/2004 shows normal sinus rhythm at 83 beats per minute. There is LVH with a repolarization abnormality and QRS prolongation. On the whole this is fairly similar to previous EKGs. No definite new ischemic changes. Critical Care Time Critical Care Time Critical Care Time: Yes Total Critical Care Time: 35 Attestation: The patient was critically ill with a high probability of imminent or life-threatening deterioration. ?I spent greater than 30 minutes of discontinuous time evaluating the patient, delivering critical care at the bedside, discussing evaluating data with consultants. ?Critical care time does not include time spent performing separately billable procedures or teaching. ?Time spent performing critical care with 35 minutes. Discharge Plan Discharge Clinical Impression: Acute hyperkalemia, Chest pain, ESRD on dialysis Patient Disposition: Admitted As Inpatient Interventions: Admission Worksheet (ED) Last Done: 12/18/24 08:48 Discharge Date/Time: 12/18/24 08:56
[2024-12-18 06:18] LABS: B Type Natriuretic Peptide 2034 pg/mL (<100)
[2024-12-18 06:19] LABS: Troponin-I High Sensitivity 15.3 ng/L (<3.5-17.0)
[2024-12-18 06:23] LABS: Alanine Aminotransferase 10 U/L (0-31); Albumin Level 4.3 g/dL (3.5-5.0); Alkaline Phosphatase 114 U/L (39-117); Anion Gap 18 (12-20); Aspartate Amino Transferase 15 U/L (5-31); Blood Urea Nitrogen 53 mg/dL (9-16); Calcium 8.7 mg/dL (8.4-10.2); Carbon Dioxide 20 mmol/L (22-29); Chloride 103 mmol/L (96-108); Creatinine Clr Calc Pharmacy 13.1; Estimated Glomerular Filt Rate 8; Potassium 6.9 mmol/L (3.3-5.1); Sodium 134 mmol/L (135-145); Total Protein 6.9 g/dL (6.5-8.0)
--- OUTSIDE RECORDS SUMMARY | 2024-12-18 06:38 | XMS_ITS | Encounter Summary ---
Author Organization [facility] Address [address] [address] Phone Care Team Providers Care Loan Services Professional Name Role Phone Mauricio Nolasco NP Primary Care Provider [phone] Encounter Details Date Type Department Care Team (Late st Contact Info) Description 12/14/2024 Treatment [facility]. [address] [address] Camden Nava MD [address] [address] End stage renal disease; Dependence [...] encounter Miscellaneous Notes * Dialysis Note - Camden Nava MD - 12/14/2024 12:00 AM EDT BASIC NOTE Patient: Angela Streeter : 1980 Note Author: CAMDEN NAVA MD Service Date: 12/14/2024 This patient was personally seen [id number] for a basic visit as part of routine monthly dialysis care for end stage renal disease. Attending Structural Iron Worker: CAMDEN NAVA MD Dialysis Location: [facility] Schedule: Shift: 2 OVERVIEW Patient is stable. HOME MEDICATIONS Current [facility] Outpatient Medications [...] 1 (one) time each day Start Date: losartan (Cozaar) 50 MG tablet Take 1 tablet (50 mg total) by mouth 1 (one) time each day Start Date: 12/07/2024 NIFEdipine XL (PROCARDIA XL) 90 MG 24 hr tablet Take 1 tablet (90 mg total) by mouth in the morning and 1 tablet (90 mg total) in the evening. Do not crush, chew, or split. Start Date: 10/14/2024 ondansetron (ZOFRAN) tablet Take 4 mg by mouth every 8 (eight) hours if needed for nausea or vomiting Start Date: ondansetron ODT (ZOFRAN-ODT) 4 MG dispersible tablet DISSOLVE 1 TABLET(4 MG) ON THE TONGUE EVERY 8 HOURS FOR UP TO 20 DAYS NEEDED FOR NAUSEA OR VOMITING Start Date: 09/05/2024 prochlorperazine (COMPAZINE) 5 MG tablet TAKE 1 [...] blood pressure. Fluid status acceptable. ADEQUACY ASSESSMENT Kt/V, Natural Log 1.39 (12/07/24) 1.38 (11/09/24) 1.61 (10/10/24) UREA REDUCTION RATIO (%) 69 (12/07/24) 69 (11/09/24) 76 (10/10/24) BUN 39 (12/07/24) 32 (11/09/24) 66 (10/10/24) BUN Post Dialysis 12 (12/07/24) 10 (11/09/24) 16 (10/10/24) Creatinine 4.56 (12/07/24) 4.30 (11/09/24) 6.58 (10/10/24) Bicarbonate (CO2) 22 (12/07/24) 24 (11/09/24) 15 (10/10/24) Sodium 137 (12/07/24) 140 (11/09/24) 138 (10/10/24) ANEMIA ASSESSMENT Hgb 12.3 (12/07/24) 11.8 (11/23/24) 10.2 (11/09/24) Iron Saturation (TSat) 42 (12/07/24) 34 (11/09/24) 35 (10/10/24) Ferritin 778 (12/07/24) 644 (11/09/24) 911 (10/10/24) Iron 85 (12/07/24) 70 (11/09/24) 76 (10/10/24) TIBC 204 (12/07/24) 209 (11/09/24) 220 (10/10/24) MCV 100.0 (12/07/24) 110.2 (11/09/24) 102.4 (10/10/24) Platelets 336 (12/07/24) 357 (11/09/24) 388 (10/10/24) BMM ASSESSMENT Calcium, Adjusted Total 8.6 12/07/24 8.4 11/09/24 8.2 10/10/24 Calcium 8.6 12/07/24 8.4 11/09/24 8.2 10/10/24 Phosphorus, Serum 4.7 12/07/24 4.6 11/09/24 4.6 10/10/24 Ca*PO4 40.4 12/07/24 38.6 11/09/24 37.7 10/10/24 PTH, Intact 538 10/10/24 594 07/06/24 367 04/13/24 Vitamin D, 25-Hydroxy 18 10/12/24 30 10/10/24 Magnesium 1.7 12/07/24 2.0 11/09/24 2.0 10/10/24 Alkaline Phosphatase 96 12/07/24 101 11/09/24 107 10/10/24 Aluminum 3 04/13/24 NUTRITION ASSESSMENT Albumin 4.2 12/07/24 4.1 11/09/24 4.5 10/10/24 Potassium 4.9 12/07/24 4.6 11/09/24 5.4 10/10/24 Hemoglobin A1C 5.2 10/10/24 5.1 07/06/24 5.0 04/13/24 ADDITIONAL LABS White Blood Cells 10.4 (12/07/24) 10.5 (11/09/24) 14.3 (10/10/24) Cholesterol 158 (10/10/24) 153 (07/06/24) 123 (04/13/24) HDL 57 (10/10/24) 59 (07/06/24) 48 (04/13/24) LDL-Calc 68 (10/10/24) 76 (07/06/24) 63 (04/13/24) Triglycerides 166 (10/10/24) 89 (07/06/24) 62 (04/13/24) Hep B Surface Antibody 163 (04/13/24) Uric Acid 5.0 (04/13/24) Signed by: CAMDEN NAVA MD on 12/14/2024 at 12:55:24 PM Transcribed by: CAMDEN NAVA MD on 12/14/2024 at 12:55:24 PM documented in this encounter Plan of Treatment Not on file documented as of this encounter Visit Diagnoses Diagnosis End stage renal disease Dependence on renal dialysis documented in this encounter Care Teams Loan Services Professional Relationship Specialty Start Date End Date Mauricio Nolasco NP [address] [place] [address] PCP - General 04/16/20 documented as of this encounter
--- OUTSIDE RECORDS SUMMARY | 2024-12-18 06:38 | XMS_ITS | Clinical Summary ---
Author Organization [facility] Address [address] [place] [address] Care Team Providers Care Scaffold Setter Name Role Phone Unavailable Primary Care Provider Unavailabl e Surgical History Surgery Date Site/Laterality Comments OTHER SURGICAL HISTORY PROCEDURE: DENIES PREVIOUS SURGERY Medical History Medical History Date Comments Other and unspecified ovarian cyst 03/15/04 DX:Other and unspecified ovarian cyst Polycystic ovaries 06/30/2005 DX:Polycystic ovaries Morbid obesity (CMS/HCC V24, CMS/HCC V28) 11/05/2006 DX:Morbid obesity (HCC) Bipolar disorder (CMS/HCC V2 4, CMS/HCC V28) 01/15/2009 DX:Bipolar disorder (HCC) Unspecified epilepsy without mention of intractable epilepsy [...] Last Done Comments Breast Cancer Screening 1982 Diabetes: Annual GFR (Glomerular Filtration Rate) 1982 IPV Vaccines (2 of 3 - 4-dose series) 04/03/1986 03/06/1986 Diabetes: Annual Foot Exam 1992 Diabetes: Annual Retina Eye Exam 1992 Cervical Cancer Screening: Pap Smear 2003 HPV Vaccines (2 - 3-dose series) 05/14/2007 04/16/2007 Pneumococcal Vaccine: Pediatrics (0 to 5 Years) and At-Risk Patients (6 to 49 Years) (2 of 2 - PCV) 10/18/2013 10/18/2012 HIV Screening 03/09/2022 Hepatitis C Screening 03/09/2022 Social Influencers of Health Screening 03/09/2022 Diabetes: Annual Urine Albumin-Creatinine Ratio (uACR) 2022 Hypertension/CHF/CAD Annual BMP Blood Test 2022 Depression Screening 04/06/2024 COVID-19 Vaccine ( season) 2024 Influenza Vaccine (#1) 2024 2, 01/28/2010, 01/15/2009, Additional history exists Diabetes: Blood Sugar Control Test (HGBA1C) 04/12/2025 10/10/2024, 10/10/2024, 07/06/2024, Additional history exists DTaP,Tdap,and Td Vaccines (5 - Td or Tdap) 11/05/2028 11/05/2018, 06/12/2011, 06/30/2005, Additional history exists Cholesterol Screening (Lipid Panel) 10/10/2029 10/10/2024 MMR Vaccines Completed 07/05/1993 Hepatitis B Vaccines Completed 06/24/1997, 12/08/1996, 04/13/1996 HIB Vaccines Aged Out No longer eligi ble based on patient's age to complete this topic Hepatitis A Vaccines Aged Out No long er eligible based on patient's age to complete this topic Meningococcal ACWY Vaccine Aged Out N o longer eligible based on patient's age to complete this topic Meningococcal B Vaccine Aged Out No l onger eligible based on patient's age to complete this topic RSV Immunization Patients Under 20 months Aged Out No longer eligible based on patient's age to complete this topic Varicella Vaccines Aged Out No longer eligible based on patient's age to complete this topic
--- OUTSIDE RECORDS SUMMARY | 2024-12-18 06:38 | XMS_ITS | Encounter Summary ---
Author Organization [facility], Address [address] [place] [address] Phone Care Team Providers Care Powerhouse Electrician Apprentice Name Role Phone Mauricio Nolasco NP Primary Care Provider [phone] Encounter Details Date Type Department Care Team (Late st Contact Info) Description 06/09/2023 Documentation Only [facility], [address] [place] [address] [place] [address] [place] [phone] Social History Tobacco Use Types Packs/Day [...] on filedocumented in this encounter Care Teams Powerhouse Electrician Apprentice Relationship Specialty Start Date End Date Mauricio Nolasco NP [address] [place] [address] PCP - General 04/16/20 documented as of this encounter
--- OUTSIDE RECORDS SUMMARY | 2024-12-18 06:38 | XMS_ITS | Encounter Summary ---
Author Organization [facility] Address [address] [place] [address] Phone Care Team Providers Care Triple Drum Operator Name Role Phone Mauricio Nolasco NP Primary Care Provider [phone] Encounter Details Date Type Department Care Team (Late st Contact Info) Description 06/12/2021 Documentation Only [facility] [address] [place] [id number] Darrion Bertrand MD [address] [place] [address], [address] [place] [address] Social History Tobacco Use Types Packs/Day Years [...] on filedocumented in this encounter Care Teams Triple Drum Operator Relationship Specialty Start Date End Date Mauricio Nolasco NP [address] [place] [address] PCP - General 1/11/21 documented as of this encounter
--- OUTSIDE RECORDS SUMMARY | 2024-12-18 06:38 | XMS_ITS | Encounter Summary ---
Author Organization [facility] Address [address] [place] [address] Phone Care Team Providers Care Line Closer Name Role Phone BreesydneyMauricio NP Primary Care Provider [phone] Encounter Details Date Type Department Care Team (Late st Contact Info) Description 07/23/2022 Telephone [facility] [address] [place] [address] Sharlene Pineda Social History Tobacco [...] - 07/23/2022 4:15 PM EDT [facility] in [place] called to relay that this PT's script for Jardiance 10 mg can be available amanda 25 MG tab so that the PT doesn't have to take 2 1/2 tabs daily. documented in this encounter Plan of Treatment Not on file documented as of this encounter Visit Diagnoses Not on filedocumented in this encounter Care Teams Line Closer Relationship Specialty Start Date End Date Mauricio Nolasco [place] [address] PCP - General 04/16/20 documented as of this encounter
--- OUTSIDE RECORDS SUMMARY | 2024-12-18 06:38 | XMS_ITS | Clinical Summary ---
Author Organization [facility] Address [address] [address] Phone Care Team Providers Care Bridal Gown Fitter Name Role Phone Mauricio Nolasco NP Primary Care Provider [phone] Allergies Active Allergy Reactions Criticality Noted Date [...] the evening. 180 tablet 3 3 Active albuterol HFA (PROVENTIL HFA;VENTOLIN HFA) 108 [...] OR VOMITING 30 tablet 2 5 Active ondansetron ODT (ZOFRAN-ODT) 4 MG dispersible tablet DISSOLVE 1 TABLET(4 MG) ON THE TONGUE EVERY 8 HOURS FOR UP TO 20 DAYS NEEDED FOR NAUSEA OR VOMITING 20 tablet 2 5 Active ondansetron (ZOFRAN) 4 MG tablet Take 4 mg by mouth every 8 (eight) hours if needed for nausea or vomiting Active NIFEdipine XL (PROCARDIA XL) 90 MG 24 hr tablet Take 1 tablet (90 mg total) by mouth in the morning and 1 tablet (90 mg total) in the evening. Do not crush, chew, or split. 180 tablet 3 5 10/15/19 26 Active losartan (Cozaar) 50 MG tablet Take 1 tablet (50 mg total) by mouth 1 (one) time each day 30 tablet 11 5 12/08/19 26 Active prochlorperazine (COMPAZINE) 5 MG tablet Take 1 tablet (5 mg total) by mouth in the morning and 1 tablet (5 mg total) at noon and 1 tablet (5 mg total) in the evening. 270 tablet 5 12/07/19 25 ondansetron (Zofran) 4 MG tablet Take 1 tablet (4 mg total) by mouth in the morning and 1 tablet (4 mg total) in the evening. 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 [address] [facility] [address] [place] [phone] Camden Duarte MD End stage renal disease; Dependence on renal dialysis 11/25/2024 Treatment [facility] [address] [phone] Camden Duarte MD End stage renal disease; Dependence on renal dialysis 11/23/2024 Treatment [facility] [address] [address] Camden Duarte MD End stage renal disease; Dependence on renal dialysis 11/16/2024 Treatment [facility] [address] [phone] Camden Duarte MD End stage renal disease; Dependence on renal dialysis 11/07/2024 Treatment [facility] [address] [address] Aneesh Barrera MD End stage renal disease; Dependence on renal dialysis 10/28/2024 Treatment [facility] [address] [phone] Aneesh Barrera MD End stage renal disease; Dependence on renal dialysis 10/19/2024 Treatment [facility] [address] [phone] Aneesh Barrera MD End stage renal disease; Dependence on renal dialysis 10/14/2024 Orders Only [facility] [address] [place] [address] Sukumar Walker RN 10/14/2024 Orders Only [facility] [address] [place] [address] Sukumar Walker, AGUILAR 10/14/2024 Orders Only [facility] [address] [facility] [address] [place] [address] Sukumar Walker RN 10/12/2024 Treatment [facility] [address] [address] Aneesh Barrera MD End stage renal disease; Dependence on renal dialysis 09/19/2024 Treatment [facility] [address] [address] Aneesh Barrera MD End stage renal disease; Dependence on renal dialysis from Last 3 Months Immunizations Immunization Administration Dates Next Due Pneumococcal Polysaccharide 10/18/2012 [...] 87 02/11/2024 10:33 AM EST Temperature 36.6 C (97.8 F) 01/28/2024 7:35 AM EDT Respiratory Rate 18 01/28/2024 7:35 AM EDT [...] series) 06/24/1998 06/24/1997, 12/08/1996, 04/13/1996 Pneumococcal Vaccine: Peds ( 0 to 5 Years) and At-Risk Patients (6 to 49 Years) (3 of 3 - PCV) 12/02/2018 12/02/2017, 10/18/2012 Diabetes: Ophthalmology Exam 10/18/2020 Diabetes: Pedal Pulse Checked 10/18/2020 Diabetes: Sensory Foot Exam 10/18/2020 Diabetes: Visual Foot Exam 10/18/2020 Influenza Vaccine (#1) 2024 05/22/2022 Diabetes: Hemoglobin A1C 01/10/2025 025, 07/06/2024, 04/13/2024, Additional history exists Pneumococcal Vaccine: 50+ Years Discontinued 8, 10/18/2012 Procedures Procedure Name Priority Date/Time Associated Diagnosis Comments TRANSFERRIN SATURATION Routine 3:00 AM EDT PROTEIN, TOTAL, SERUM Routine 12/07/2024 3:00 AM EDT MAGNESIUM Routine 12/07/2024 3:00 AM EDT LACTATE DEHYDROGENASE Routine 12/07/2024 3:00 AM EDT ELECTROLYTE PANEL Routine 12/07/2024 3:0 0 AM EDT LIH (HC) Routine 12/07/2024 3:00 AM EDT GLUCOSE, RANDOM Routine 12/07/2024 3:00 AM EDT CREATININE, SERUM Routine 12/07/2024 3:0 0 AM EDT BUN/CREATININE RATIO Routine 12/07/2024 3:00 AM EDT BILIRUBIN, TOTAL Routine 12/07/2024 3:00 AM EDT CALCIUM PHOSPHORUS PRODUCT, ADJUSTED (HC) Routine 12/07/2024 3:00 AM EDT AST Routine 12/07/2024 3:00 AM EDT ALKALINE PHOSPHATASE Routine 12/07/2024 3:00 AM EDT ALT Routine 12/07/2024 3:00 AM EDT FERRITIN Routine 12/07/2024 3:00 AM EDT CBC AND DIFFERENTIAL Routine 12/07/2024 3:00 AM EDT KT/V NATURAL LOG, URR (HC) Routine 12/07/2024 3:00 AM EDT HEMOGLOBIN Routine 11/23/2024 3:00 AM EDT FERRITIN Routine 11/09/2024 3:00 AM EDT TRANSFERRIN SATURATION Routine 3:00 AM EDT PROTEIN, TOTAL, SERUM Routine 11/09/2024 3:00 AM EDT MAGNESIUM Routine 11/09/2024 3:00 AM EDT ELECTROLYTE PANEL Routine 11/09/2024 3:0 0 AM EDT LIH (HC) Routine 11/09/2024 3:00 AM EDT LACTATE DEHYDROGENASE Routine 11/09/2024 3:00 AM EDT GLUCOSE, RANDOM Routine 11/09/2024 3:00 AM EDT CREATININE, SERUM Routine 11/09/2024 3:0 0 AM EDT BUN/CREATININE RATIO Routine 11/09/2024 3:00 AM EDT BILIRUBIN, TOTAL Routine 11/09/2024 3:00 AM EDT AST Routine 11/09/2024 3:00 AM EDT CALCIUM PHOSPHORUS PRODUCT, ADJUSTED (HC) Routine 11/09/2024 3:00 AM EDT ALT Routine 11/09/2024 3:00 AM EDT ALKALINE PHOSPHATASE Routine 11/09/2024 3:00 AM EDT CBC AND DIFFERENTIAL Routine 11/09/2024 3:00 AM EDT KT/V NATURAL LOG, URR (HC) Routine 11/09/2024 3:00 AM EDT HEMOGLOBIN Routine 10/31/2024 3:00 AM EDT HEMOGLOBIN Routine 10/19/2024 3:00 AM EDT VITAMIN D 25 HYDROXY Routine 10/12/2024 3:00 AM EDT PROTEIN, TOTAL, SERUM Routine 10/10/2024 3:00 AM EDT TRANSFERRIN SATURATION Routine 3:00 AM EDT MAGNESIUM Routine 10/10/2024 3:00 AM EDT ELECTROLYTE PANEL Routine 10/10/2024 3:0 0 AM EDT LIPID PANEL Routine 10/10/2024 3:00 AM EDT LIH (HC) Routine 10/10/2024 3:00 AM EDT LACTATE DEHYDROGENASE Routine 10/10/2024 3:00 AM EDT GLUCOSE, RANDOM Routine 10/10/2024 3:00 AM EDT BUN/CREATININE RATIO Routine 10/10/2024 3:00 AM EDT CREATININE, SERUM Routine 10/10/2024 3:0 0 AM EDT BILIRUBIN, TOTAL Routine 10/10/2024 3:00 AM EDT AST Routine 10/10/2024 3:00 AM EDT ALKALINE PHOSPHATASE Routine 10/10/2024 3:00 AM EDT ALT Routine 10/10/2024 3:00 AM EDT CALCIUM PHOSPHORUS PRODUCT, ADJUSTED (HC) Routine 10/10/2024 3:00 AM EDT VITAMIN D 25 HYDROXY Routine 10/10/2024 3:00 AM EDT FERRITIN Routine 10/10/2024 3:00 AM EDT PTH, INTACT Routine 10/10/2024 3:00 AM EDT HEMOGLOBIN A1C Routine 10/10/2024 3:00 AM EDT KT/V NATURAL LOG, URR (HC) Routine 10/10/2024 3:00 AM EDT CBC AND DIFFERENTIAL Routine 10/10/2024 3:00 AM EDT HEMOGLOBIN Routine 09/28/2024 3:00 AM EDT from Last 3 Months Results * LIH (12/07/2024 3:00 AM EDT) Only the most recent of3 resultswithin the time period is included. Lipemia Normal Normal [facility] Icterus Normal Normal [facility] Hemolysis Normal Normal [facility] 12/07/2024 3:00 AM EDT 12/08/2024 7:46 PM EDT us Aneesh Barrera MD LAB [id number] ICITED RESULTS Final Result [facility] [address] [place] [address] * (ABNORMAL) Kt/V Natural Log, URR (12/07/2024 3:00 AM EDT) Only the most recent of3 resultswithin the time period is included. Treatment Time 212 min [facility] Pre-Weight, lb 73.6 kg [facility] Post-Weight, lb 70.8 kg [facility] Ultrafiltration Rate 11 <=13 mL/kg/hr [facility] Comment: Recommend achieving Ultrafiltration Rate (UFR) <=10 mL/kg/hr References: Gio SILVERMAN et al. Kidney Int. 2010; 79(2):250-257 BUN Post Dialysis 12 7 - 25 mg/dL [facility] BUN 39(H) 7 - 25 mg/dL [facility] UREA REDUCTION RATIO (%) 69 >=65 % [facility] Kt/V Natural Log 1.39 >=1.2 [facility] 12/07/2024 3:00 AM EDT 12/08/2024 5:39 PM EDT us Aneesh Barrera MD LAB [id number] ICITED RESULTS Final Result Performing Organization Address [facility] de Phone Number [facility] [address] [place] [address] * Calcium Phosphorus Product, Adjusted (12/07/2024 3:00 AM EDT) Only the most recent of3 resultswithin the time period is included. Albumin 4.2 3.6 - 5.4 g/dL [facility] Calcium 8.6 8.6 - 10.3 mg/dL [facility] Phosphorus, Serum 4.7 2.5 - 5.0 mg/dL [facility] Ca*PO4 40.4 <55.0 mg2/dL2 [facility] Calcium, Adjusted Total 8.6 8.6 - 10.3 mg/dL [facility] CA*PO4 CORRCTD 40.4 <55.0 mg2/dL2 [facility] 12/07/2024 3:00 AM EDT 12/08/2024 7:46 PM EDT us Aneesh Barrera MD LAB [id number] ICITED RESULTS Final Result Performing Organization Address [facility] Co de Phone Number [facility] [address] [place] [address] * BUN/CREATININE RATIO (12/07/2024 3:00 AM EDT) Only the most recent of3 resultswithin the time period is included. [facility] BUN/Creatinine Ratio 8.6 <=23.0 [facility] 12/07/2024 3:00 AM EDT 12/08/2024 7:46 PM EDT us Aneesh Barrera MD LAB [id number] ICITED RESULTS Final Result Performing Organization Address [facility] de Phone Number [facility] [address] [place] [address] * (ABNORMAL) TSAT (12/07/2024 3:00 AM EDT) Only the most recent of3 resultswithin the time period is included. [facility] Iron 85 50 - 170 ug/dL [facility] Transferrin 146(L) 250 - 380 mg/dL [facility] TIBC 204(L) 211 - 406 ug/dL [facility] Iron Saturation (TSat) 42 22 - 52 % [facility] 12/07/2024 3:00 AM EDT 12/08/2024 7:46 PM EDT us Aneesh Barrera MD LAB BLOOD ORDERABLES Final Resul t Performing Organization Address [facility] de Phone Number [facility] [address] [place] [address] * (ABNORMAL) CBC and Differential (12/07/2024 3:00 AM EDT) Only the most recent of3 resultswithin the time period is included. [facility] DIFFERENTIAL MANUAL, 2 Not Indicated [facility] White Blood Cells 10.4(H) 4.0 - 10.0 K/uL [facility] RBC 3.61(L) 3.93 - 5.22 M/uL [facility] Hgb 12.3 11.2 - 15.7 g/dL [facility] Hemoglobin x 3 36.9 33.6 - 47.1 g/dL [facility] Hematocrit 36.1 34.1 - 44.9 % [facility] MCV 100.0(H) 79.4 - 94.8 fL [facility] MCH 34.1(H) 25.6 - 32.2 pg [facility] MCHC 34.1 32.2 - 35.5 g/dL [facility] RDW 13.2 11.7 - 14.4 % [facility] Platelets 336 182 - 369 K/uL [facility] MPV 11.1 9.2 - 12.8 fL [facility] Neutrophils Relative 63.7 34.0 - 71.1 % [facility] Lymphocytes Relative 27.1 19.3 - 51.7 % [facility] Monocytes 7.0 4.7 - 12.5 % [facility] Eosinophils Relative 1.2 0.7 - 5.8 % [facility] Basophils Relative 0.6 0.1 - 1.2 % [facility] Immature Granulocytes 0.4 0.0 - 1.0 % [facility] 12/07/2024 3:00 AM EDT 12/08/2024 7:29 PM EDT us Aneesh Barrera MD LAB BLOOD ORDERABLES Final Resul t Performing Organization Address [facility] Co de Phone Number [facility] [address] [place] [address] * (ABNORMAL) ALT (12/07/2024 3:00 AM EDT) Only the most recent of3 resultswithin the time period is included. ALT (SGPT) 8(L) 10 - 49 U/L [facility] 12/07/2024 3:00 AM EDT 12/08/2024 7:46 PM EDT us Aneesh Barrera MD LAB BLOOD ORDERABLES Final Resul t Performing Organization Address City/[facility] Co de Phone Number [facility] [address] [place] [address] * AST (12/07/2024 3:00 AM EDT) Only the most recent of3 resultswithin the time period is included. AST (SGOT) 15 <34 U/L [facility] 12/07/2024 3:00 AM EDT 12/08/2024 7:46 PM EDT us Aneesh Barrera MD LAB BLOOD ORDERABLES Final Resul t Performing Organization Address [facility] Co de Phone Number [facility] [address] [place] [address] * Protein, total (12/07/2024 3:00 AM EDT) Only the most recent of3 resultswithin the time period is included. Total Protein 6.4 6.4 - 8.9 g/dL [facility] 12/07/2024 3:00 AM EDT 12/08/2024 7:46 PM EDT us Aneesh Barrera MD LAB BLOOD ORDERABLES Final Resul t Performing Organization Address [facility] de Phone Number [facility] [address] [place] [address] * Alkaline phosphatase (12/07/2024 3:00 AM EDT) Only the most recent of3 resultswithin the time period is included. Alkaline Phosphatase 96 46 - 116 U/L [facility] 12/07/2024 3:00 AM EDT 12/08/2024 7:46 PM EDT us Aneesh Barrera MD LAB BLOOD ORDERABLES Final Resul t Performing Organization Address [facility] de Phone Number [facility] [address] [place] [address] * (ABNORMAL) Magnesium (12/07/2024 3:00 AM EDT) Only the most recent of3 resultswithin the time period is included. Magnesium 1.7(L) 1.9 - 2.7 mg/dL [facility] 12/07/2024 3:00 AM EDT 12/08/2024 7:46 PM EDT us Aneesh Barrera MD LAB BLOOD ORDERABLES Final Resul t Performing Organization Address [facility] Co de Phone Number [facility] [address] [place] [address] * (ABNORMAL) Lactate dehydrogenase (12/07/2024 3:00 AM EDT) Only the most recent of3 resultswithin the time period is included. LDH 348(H) 120 - 246 U/L [facility] 12/07/2024 3:00 AM EDT 12/08/2024 7:46 PM EDT us Aneesh Barrera MD LAB BLOOD ORDERABLES Final Resul t Performing Organization Address [facility] de Phone Number [facility] [address] [place] [address] * (ABNORMAL) Glucose, random (12/07/2024 3:00 AM EDT) Only the most recent of3 resultswithin the time period is included. Glucose 107(H) 70 - 99 mg/dL [facility] Comment: ADA guidelines outline the following fasting glucose ranges: Normal: <100 Prediabetes: 100-125 Diabetes: >125 12/07/2024 3:00 AM EDT 12/08/2024 7:46 PM EDT us Aneesh Barrera MD LAB BLOOD ORDERABLES Final Resul t Performing Organization Address [facility] de Phone Number [facility] [address] [place] [address] * (ABNORMAL) Ferritin (12/07/2024 3:00 AM EDT) Only the most recent of3 resultswithin the time period is included. Ferritin 778(H) 10 - 291 ng/mL [facility] 12/07/2024 3:00 AM EDT 12/08/2024 7:46 PM EDT us Aneesh Barrera MD LAB BLOOD ORDERABLES Final Resul t Performing Organization Address [facility] de Phone Number [facility] [address] [place] [address] * (ABNORMAL) Creatinine, serum (12/07/2024 3:00 AM EDT) Only the most recent of3 resultswithin the time period is included. Creatinine 4.56(H) 0.55 - 1.02 mg/dL [facility] 12/07/2024 3:00 AM EDT 12/08/2024 7:46 PM EDT us Aneesh Barrera MD LAB BLOOD ORDERABLES Final Resul t Performing Organization Address [facility] de Phone Number [facility] [address] [place] [address] * Bilirubin, total (12/07/2024 3:00 AM EDT) Only the most recent of3 resultswithin the time period is included. Total Bilirubin 0.5 0.3 - 1.2 mg/dL [facility] 12/07/2024 3:00 AM EDT 12/08/2024 7:46 PM EDT us Aneesh Barrera MD LAB BLOOD ORDERABLES Final Resul t Performing Organization Address [facility] de Phone Number [facility] [address] [place] [address] * Electrolyte panel (12/07/2024 3:00 AM EDT) Only the most recent of3 resultswithin the time period is included. Sodium 137 136 - 145 mEq/L [facility] Potassium 4.9 3.4 - 5.0 mEq/L [facility] Chloride 103 98 - 107 mEq/L [facility] Bicarbonate (CO2) 22 21 - 31 mEq/L [facility] Anion Gap 12 3 - 14 mEq/L [facility] 12/07/2024 3:00 AM EDT 12/08/2024 7:46 PM EDT us Aneesh Barrera MD LAB BLOOD ORDERABLES Final Resul t Performing Organization Address [facility] de Phone Number [facility] [address] [place] [address] * Hemoglobin (11/23/2024 3:00 AM EDT) Only the most recent of4 resultswithin the time period is included. Hgb 11.8 11.2 - 15.7 g/dL [facility] Hemoglobin x 3 35.4 33.6 - 47.1 g/dL [facility] 11/23/2024 3:00 AM EDT 11/24/2024 12:36 PM EDT us Aneesh Barrera MD LAB BLOOD ORDERABLES Final Resul t Performing Organization Address [facility] Co de Phone Number [facility] [address] [place] [address] * Vitamin D 25 Hydroxy (10/12/2024 3:00 AM EDT) Only the most recent of2 resultswithin the time period is included. Vitamin D, 25-Hydroxy 18 30 - 100 ng/mL [facility] Comment: Status Adult Pediatric Deficient: <20 <15 Insufficient: 20-29 15-19 Sufficient: 30-100 20-100 10/12/2024 3:00 AM EDT 10/13/2024 1:14 PM EDT us Aneesh Barrera MD LAB BLOOD ORDERABLES Final Resul t Performing Organization Address [facility] de Phone Number [facility] [address] [place] [address] * PTH, Intact (10/10/2024 3:00 AM EDT) PTH, Intact 538 160 - 721 pg/mL [facility] Comment: Suggested (KDIGO) ESRD maintenance range is two to nine times the upper normal limit (80.1 pg/mL) for the laboratory. 10/10/2024 3:00 AM EDT 10/11/2024 12:49 PM EDT us Aneesh Barrera MD LAB BLOOD ORDERABLES Final Resul t Performing Organization Address [facility] Co de Phone Number [facility] [address] [place] [address] * Hemoglobin A1c (10/10/2024 3:00 AM EDT) Hemoglobin A1C 5.2 <5.7 % [facility] Comment: Methodology: Enzymatic Normal: <5.7% Prediabetes: 5.7-6.4% Diabetes: >6.4% Diabetic Glucose Control Evaluation: Therapeutic action suggested at >8.0% ADA recommends a glycemic goal of <7.0% 10/10/2024 3:00 AM EDT 10/11/2024 12:51 PM EDT Aneesh Barrera MD LAB BLOOD ORDERABLES Final Resul t Performing Organization Address [facility] Co de Phone Number [facility] [address] [place] [address] * (ABNORMAL) Lipid panel (10/10/2024 3:00 AM EDT) Cholesterol 158 mg/dL [facility] Comment: Optimal: <200 Borderline: 200-239 High Risk: >239 Triglycerides 166(H) mg/dL [facility] Comment: Optimal: <150 Borderline: 150-200 High Risk: >200 HDL 57(L) mg/dL [facility] Comment: Optimal: >59 Borderline: 40-59 High Risk: <40 LDL-Calc 68 mg/dL [facility] Comment: Optimal: <100 Borderline: 100-159 High Risk: >159 VLDL Cholesterol Justin 33(H) mg/dL [facility] Comment: Optimal: <30 Borderline: 30-40 High Risk: >40 Chol/HDL Ratio 2.8 [facility] Comment: Optimal: <3.3 High Risk: >6.2 10/10/2024 3:00 AM EDT 10/11/2024 12:49 PM EDT Aneesh Barrera MD LAB BLOOD ORDERABLES Final Resul t Performing Organization Address [facility] Co de Phone Number [facility] [address] [place] [address] from Last 3 Months Insurance Medicare Medicaid [place] Medicare [place] Care Teams Bridal Gown Fitter Relationship Specialty Start Date End Date Mauricio Nolasco NP [address] [place] [address] [id number] PCP - General 04/16/20
[2024-12-18] MEDS: Calcium Gluconate/NaCl,Iso-Osm 2 GM/100 ML PLAST..BAG IV (07:02)
[2024-12-18 07:30] LABS: Magnesium 2.0 mg/dL (1.6-2.6)
[2024-12-18 07:47] LABS: Glucose, Whole Blood 105 mg/dL (60-115)
--- NOTE | 2024-12-18 08:04 | PM.IMHP ---
History of Present Illness Date of Service: 12/18/24 Chief Complaint: Vomiting 44-year-old woman with a history of end-stage renal disease on dialysis presented to the ER with complaints of vomiting x2 and chest pain patient called the ambulance to bring her to the ER for further workup. Her potassium was noted to be 6.9 and she was noted to be quite hypertensive which is not unusual for her. When she woke up this morning she had pressure-like chest pain that radiated to her back and her arm and had this episode of vomiting. She reported that she went to dialysis on Thursday, her usual weight is around 71 kg, at dialysis she was 78 kg before and 74 kg after so she did not get the usual amount of fluid removed. In the ER the hyperkalemia was treated with calcium, insulin, glucose and Lokelma. She was noted to have an elevated troponin but EKG was similar to previous her blood pressure was quite elevated which is chronic for her she was treated with nitroglycerin patch, nifedipine and clonidine. She had no further episodes of vomiting. She will be admitted for further management and treatment of hyperkalemia necessitating dialysis treatment. Review of Systems Review of Systems: Denies any recent fever chills or decrease in appetite respiratory denies any shortness of breath for cough cardiovascular see HPI gastrointestinal see HPI genitourinary denies any dysuria frequency or hematuria musculoskeletal denies any joint pain or swelling neuropsych denies any weakness or seizures all other systems reviewed are negative [facility] Medical History Legally blind Vascular dialysis catheter in place Hypertensive retinopathy Macular edema Diabetic retinopathy Hyperglycemia CHF (congestive heart failure) Hypertensive urgency Malignant hypertension CKD (chronic kidney disease) Heart block AV second degree Hypersomnia Cardiomyopathy CKD (chronic kidney disease) stage 2, GFR 60-89 ml/min Nicotine dependence, cigarettes, uncomplicated (~1999) Eclampsia Fatty liver Heart failure, unspecified (~09/2020) History of DVT (deep vein thrombosis) Diabetes mellitus Migraines Sjogren's disease Lupus Rheumatoid arthritis High cholesterol Anxiety PTSD (post-traumatic stress disorder) Bipolar 1 disorder H/O mixed connective tissue disease HTN (hypertension) Family History Father Substance use disorder Mental health disorder Brother Substance use disorder Mental health disorder Brother Substance use disorder Mental health disorder Other Diabetes HTN (hypertension) Surgical History History of H/O eye surgery History of hip surgery Tubal ligation status History of bronchoscopy (~11/2020) History of cholecystectomy (~05/2014) Social History Household Members: Family Household Members Other:: 3 Housing: House Are you a primary care management assistant to a significant other at home: No Do you presently have visiting nurse or other home services: No Alcohol intake: never Patient Tobacco Use Status: Current everyday Tobacco user Tobacco use type: Cigarette Cigarette Packs Per Day: 1 Cigarettes Per Day: 5 Years Smoked: 20 Smoked in Last 30 Days: Yes e-Cigarette/Vaping Use: Never Used Patient Interested in Nicotine Replacement: Yes Patient Given Instructions on How to Stop Smoking: No Second Hand Smoke Exposure: No Use of substances other than those prescribed or required for medical reasons: No Substance Use Type: Crack/Cocaine and Marijuana Have you been hit, kicked, punched, or otherwise hurt by someone within the past year? If so, by whom?: No Do you feel safe in your current relationship?: Yes Is there a partner from a previous relationship who is making you feel unsafe now?: No Are you made to feel afraid or neglected: No Advance Directives: Yes Advance Directives on File: Yes Advance Directives Date on File: 06/03/21 Do you have a plan to hurt others: No Plan Recently lost weight without trying: Yes How much weight loss: Unsure Eating poorly because of decreased appetite: Yes Nutrition screen score: 5 Nutrition Risks: Poor intake 0-25% >4 days Patient : No : No Poor oral hygiene: No service: No Current occupational status: disabled Cognitive needs: No Hearing needs: No Vision needs: No Meds Allergies Allergy/AdvReac Type Severity Reaction Status Date / Time amoxicillin Allergy Unknown rash Verified 12/18/24 05:40 cefaclor (From Ceclor) Allergy Unknown RASH Verified 12/18/24 05:40 cephalexin Allergy Unknown rash Verified 12/18/24 05:40 Cephalosporins Allergy Unknown RASH ALL Verified 12/18/24 05:40 (CEPHALOSPORINS) OVER cephradine (From VELOSEF) Allergy Unknown RASH Verified 12/18/24 05:40 Penicillins (PENICILLINS) Allergy Unknown RASH Verified 12/18/24 05:40 gabapentin (GABAPENTIN) AdvReac Unknown RESTLESS Verified 12/18/24 05:40 LEGS, Body becomes very uncomfortable Home Medications ?Medication ?Instructions ?Recorded ?Confirmed ?Last Taken ?Type carvedilol 25 mg tablet 50 mg PO BID 03/20/22 12/18/24 12/17/24 History nifedipine 90 mg tablet,extended 90 mg PO BID 04/22/22 12/18/24 12/17/24 History release 24 hr famotidine 20 mg tablet 20 mg PO DAILY PRN Heartburn 05/22/24 12/18/24 12/17/24 History prochlorperazine maleate 5 mg 5 mg PO BID PRN Nausea And Vomiting 05/22/24 12/18/24 12/17/24 History tablet sacubitril 24 mg-valsartan 26 mg 1 tab PO DAILY 05/22/24 12/18/24 12/17/24 History tablet (Entresto) spironolactone 25 mg tablet 25 mg PO DAILY 05/22/24 12/18/24 12/17/24 History vitamin B complex-vitamin C-folic 1 tab PO DAILY 05/22/24 12/18/24 12/17/24 History acid 0.8 mg tablet (Jaclyn-Elias) clonidine HCl 0.1 mg tablet 0.1 mg PO BID 07/11/24 12/18/24 12/17/24 History ondansetron 4 mg disintegrating 4 mg PO Q8H PRN Nausea And Vomiting 07/11/24 12/18/24 12/17/24 History tablet losartan 50 mg tablet 50 mg PO DAILY 12/18/24 12/18/24 12/17/24 History Physical Exam Vital Signs and Narrative: Vital Signs: Last Vital Signs Temp 98.3 F 12/18/24 05:37 Pulse 79 12/18/24 07:45 Resp 19 12/18/24 05:37 BP 175/95 H 12/18/24 07:46 Pulse Ox 99 12/18/24 05:37 O2 Del Method Room Air 12/18/24 05:37 BMI result Body Mass Index 25.6 Appearing in no acute distress head is normocephalic atraumatic eyes pupils are PERRLA sclera is anicteric mouth throat mucous membranes are intact and moist neck is supple no lymphadenopathy, no JVD noted lung sounds are clear to auscultation heart regular rate rhythm, clear S1, S2 positive bowel sounds, abdomen is soft, nontender neuro patient is alert x3, no focal deficits Results Labs 12/18/24 05:53 12/18/24 08:06 Labs: Laboratory Results - last 24 hr 12/18/24 12/18/24 05:53 07:43 MCV 95.6 MCH 33.4 H MCHC 35.0 RDW 13.0 Plt Count 393 MPV 9.0 L Immature Gran % (Auto) 0.2 Neut % (Auto) 68.8 Lymph % (Auto) 17.3 L Florence % (Auto) 9.3 Eos % (Auto) 3.5 Baso % (Auto) 0.9 Lymph # (Auto) 1.8 Florence # (Auto) 0.9 Eos # (Auto) 0.4 Baso # (Auto) 0.1 Abs Immat Gran (auto) 0.02 Absolute Neuts (auto) 7.0 Absolute Nucleated RBC 0.000 Nucleated RBC % (auto) 0.0 Anion Gap 18 Estim Creat Clear Calc 13.1 Estimated GFR 8 POC Glucose 105 Random Glucose 130 H Calcium 8.7 D Magnesium 2.0 Total Bilirubin 0.6 AST 15 ALT 10 Alkaline Phosphatase 114 B-Natriuretic Peptide 2034 H Total Protein 6.9 Albumin 4.3 Assessment and Plan (1) Bipolar 1 disorder: Status: Acute Plan 44-year-old woman admitted with hyperkalemia, end-stage renal disease on dialysis Hyperkalemia Secondary to renal disease Treated with calcium, Lokelma, insulin in the ER Plan for dialysis today Hypertensive urgency Acute on chronic Treated in the ER with clonidine, nifedipine, nitroglycerin patch Continue carvedilol, clonidine, nifedipine, spironolactone Elevated troponin with chest pain Secondary to end-stage renal disease No ischemic changes noted on EKG repeat trop flat End-stage renal disease on dialysis Thursday Follows with [facility] Diabetes mellitus type 2 Sliding scale Low-sodium diet Seizure disorder Continue Keppra Normocytic anemia No obvious bleeding Secondary to renal disease Mental health Continue home medications Chronic heart failure with preserved ejection fraction No exacerbation Continue Entresto DVT prophylaxis with heparin Full code Quality Stroke Does the patient have a stroke diagnosis?: No VTE Prior VTE?: No VTE Risk Level:: Medical - moderate - high VTE Device Contraindication: Treatment Not Indicated VTE Drug Contraindication: N/A - Med Ordered
--- NOTE | 2024-12-18 08:15 | PC.NURSE ---
Report given to Cris outsole cementer machine, plans for pt to undergo 2 hr tx. Charge nurse aware.
[2024-12-18 08:32] LABS: Anion Gap 18 (12-20); Blood Urea Nitrogen 53 mg/dL (9-16); Calcium 9.5 mg/dL (8.4-10.2); Carbon Dioxide 20 mmol/L (22-29); Chloride 102 mmol/L (96-108); Creatinine Clr Calc Pharmacy 13.3; Estimated Glomerular Filt Rate 8; Potassium 7.2 mmol/L (3.3-5.1); Sodium 133 mmol/L (135-145)
[2024-12-18 08:35] LABS: Troponin-I High Sensitivity 15.1 ng/L (<3.5-17.0)
[2024-12-18 11:29] LABS: Glucose, Whole Blood 99 mg/dL (60-115)
--- NOTE | 2024-12-18 11:37 | PHA.MEDREC ---
Addendum entered by Xavier Ortiz, PharmBridgette 12/18/24 11:45: Med rec checked by [facility] Original Note: Pharmacy Consult ? Medication Reconciliation Pharmacy has completed the medication reconciliation. Confirmed medication list with patient. Patient took medications last night, 12/17, but threw up afterwards. Partial meds given this morning.
[2024-12-18] MEDS: oxyCODONE HCl Immed Release 5 MG TABLET PO ×2 (14:51→21:22)
[2024-12-18 15:10] LABS: Anion Gap 17 (12-20); Blood Urea Nitrogen 34 mg/dL (9-16); Calcium 8.3 mg/dL (8.4-10.2); Carbon Dioxide 26 mmol/L (22-29); Chloride 99 mmol/L (96-108); Creatinine Clr Calc Pharmacy 18.5; Estimated Glomerular Filt Rate 12; Potassium 4.7 mmol/L (3.3-5.1); Sodium 137 mmol/L (135-145)
[2024-12-18 16:00] LABS: Glucose, Whole Blood 124 mg/dL (60-115)
[2024-12-18] MEDS: Nicotine 21 MG PATCH.TD24 TRANSDERMA (16:14)
[2024-12-18] MEDS: 0.9 % Sodium Chloride Flush 3 ML SYRINGE IVFLUSH ×2 (16:14→21:22)
--- NOTE | 2024-12-18 16:26 | ECG_ITS ---
Test Reason : chest Blood Pressure : */* mmHG Vent. Rate : 70 BPM Atrial Rate : 70 BPM P-R Int : 158 ms QRS Dur : 102 ms QT Int : 450 ms P-R-T Axes : 49 18 133 degrees QTcB Int : 486 ms Normal sinus rhythm Left ventricular hypertrophy with repolarization abnormality ( R in aVL , Sokolow-Abarca ) Prolonged QT Abnormal ECG When compared with ECG of 18-Dec-2024 05:38, No significant change was found Referred By: Karla Simons Electronically Signed By: MANJEET DUVALL
--- NOTE | 2024-12-18 17:08 | PC.NURSE ---
1600 pt c/o chest pain different from previous wrapping around sides of ribs to back worse with breathing. VSS. Pt provided with warm backs for comfort Roxi Simons TRIMMING PRESS OPERATOR notified EKG completed and reported. No new orders at this time.
[2024-12-18 20:12] LABS: Glucose, Whole Blood 96 mg/dL (60-115)
[2024-12-19 03:06] VITALS: BP 166/92; PULSE 68; RESP 19; TEMP 36.6; O2SAT 99
[2024-12-19] MEDS: oxyCODONE HCl Immed Release 5 MG TABLET PO (03:53)
[2024-12-19 05:28] VITALS: BMI 25.8
[2024-12-19 06:58] LABS: Hematocrit 33.0 % (37.0-47.0); Hemoglobin 11.3 g/dl (12.0-16.0); Red Blood Count 3.43 X10*6/uL (4.20-5.50); White Blood Count 11.5 X10*3/uL (4.8-10.8)
[2024-12-19 06:59] LABS: Mean Corpuscular HGB Conc 34.2 g/dl (31.0-35.0); Mean Corpuscular Hemoglobin 32.9 pg (27.0-33.0); Mean Corpuscular Volume 96.2 fL (80.0-98.0); NRBC Abs Auto 0.000 X10*3/uL (0.0-0.012); NRBC Pct Auto 0.0 /100WBC (0.0-0.2); Platelet Count 423 X10*3/uL (160-400)
[2024-12-19 07:13] LABS: Glucose, Whole Blood 124 mg/dL (60-115)
[2024-12-19 07:27] LABS: Anion Gap 19 (12-20); Blood Urea Nitrogen 55 mg/dL (9-16); Carbon Dioxide 22 mmol/L (22-29); Chloride 99 mmol/L (96-108); Creatinine Clr Calc Pharmacy 13.9; Estimated Glomerular Filt Rate 8; Potassium 4.6 mmol/L (3.3-5.1); Sodium 135 mmol/L (135-145)
--- NOTE | 2024-12-19 07:35 | P.PNIM_ITS ---
Subjective Subjective Date of Service: 12/19/24 Physical Exam 2 Vital Signs: Vital Signs: Last Vital Signs Temp 97.9 F 12/19/24 03:06 Pulse 68 12/19/24 03:06 Resp 19 12/19/24 03:06 BP 166/92 H 12/19/24 03:06 Pulse Ox 99 12/19/24 03:06 O2 Del Method Room Air 12/19/24 03:06 BMI result Body Mass Index 25.8 Objective Data Active Medications Acetaminophen (Acetaminophen 325 Mg Tablet) 650 mg PO Q6H PRN PRN Reason: Pain, Mild 1-3,fever,headache Calcium Carbonate (Calcium Carbonate 750 Mg Tab.Chew) 750 mg PO Q4H PRN PRN Reason: Heartburn Carvedilol (Carvedilol 12.5 Mg Tablet) 12.5 mg PO BID [facility]; Protocol Last Admin: 12/19/24 04:26 Dose: 12.5 mg Documented By: AUNG Dextrose (Dextrose 50 % 25 Gm/50 Ml Syringe) 25 gm IVPUSH Q15M PRN; Protocol PRN Reason: per Hypoglycemia Standing Ord. Glucose (Glucose Gel 15 Gm Gel..Gram.) 15 gm PO Q15M PRN; Protocol PRN Reason: per Hypoglycemia Standing Ord. Heparin Sodium (Porcine) (Heparin Sodium,Porcine 5,000 Unit/Ml Vial) 5,000 unit SUBCUT Q12H [facility] Last Admin: 12/18/24 21:17 Dose: Not Given Documented By: AUNG Non-Admin Reason: Patient Refused Insulin Human Lispro (Insulin Lispro 100 Unit/Ml 3 Ml Vial) 0 unit SUBCUT QIDACHS [facility]; Protocol Last Admin: 12/18/24 20:23 Dose: Not Given Documented By: AUNG Non-Admin Reason: No Insulin Coverage Magnesium Hydroxide (Milk Of Magnesia 30 Ml Oral.Susp) 30 ml PO DAILY PRN PRN Reason: Constipation Melatonin (Melatonin 3 Mg Tablet) 6 mg PO BEDTIME PRN PRN Reason: Insomnia Nicotine (Nicotine 21 Mg Patch.Td24) 21 mg TRANSDERMA DAILY [facility] Last Admin: 12/18/24 16:14 Dose: 21 mg Documented By: SANAM Ondansetron HCl (Ondansetron Hcl 4 Mg/2 Ml Vial) 4 mg IVPUSH Q8H PRN PRN Reason: Nausea and Vomiting Last Admin: 12/18/24 21:22 Dose: 4 mg Documented By: AUNG Oxycodone HCl (Oxycodone Hcl Immed Release 5 Mg Tablet) 5 mg PO Q6H PRN PRN Reason: Pain, Moderate(Pain Scale 4-6) Last Admin: 12/19/24 03:53 Dose: 5 mg Documented By: AUNG Sodium Chloride (0.9 % Sodium Chloride Flush 3 Ml Syringe) [facility] Last Admin: 12/18/24 21:22 Dose: 3 ml Documented By: AUNG Labs 12/19/24 06:04 12/19/24 06:04 Labs: Laboratory Results - last 24 hr 12/18/24 12/18/24 12/18/24 07:43 08:06 11:10 MCV MCH MCHC RDW Plt Count MPV Absolute Nucleated RBC Nucleated RBC % (auto) Anion Gap 18 Estim Creat Clear Calc 13.3 Estimated GFR 8 POC Glucose 105 99 Random Glucose 123 H Calcium 9.5 D Troponin I High Sens 15.1 12/18/24 12/18/24 12/18/24 14:35 15:57 19:59 MCV MCH MCHC RDW Plt Count MPV Absolute Nucleated RBC Nucleated RBC % (auto) Anion Gap 17 Estim Creat Clear Calc 18.5 Estimated GFR 12 POC Glucose 124 H 96 Random Glucose 145 H Calcium 8.3 L D Troponin I High Sens 12/19/24 12/19/24 06:04 07:09 MCV 96.2 MCH 32.9 MCHC 34.2 RDW 13.0 Plt Count 423 H MPV 9.8 Absolute Nucleated RBC 0.000 Nucleated RBC % (auto) 0.0 Anion Gap 19 Estim Creat Clear Calc 13.9 Estimated GFR 8 POC Glucose 124 H Random Glucose 103 Calcium Troponin I High Sens Quality Stroke Does the patient have a stroke diagnosis?: No VTE Prior VTE?: No VTE Risk Level:: Medical - moderate - high VTE Device Contraindication: Treatment Not Indicated VTE Drug Contraindication: N/A - Med Ordered
[2024-12-19 07:45] LABS: Calcium 7.6 mg/dL (8.4-10.2)
[2024-12-19 07:59] VITALS: BP 161/81; PULSE 69; RESP 20; TEMP 37.1; O2SAT 99
[2024-12-19] MEDS: Nicotine 21 MG PATCH.TD24 TRANSDERMA (08:33)
[2024-12-19] MEDS: 0.9 % Sodium Chloride Flush 3 ML SYRINGE IVFLUSH (08:35)
[2024-12-19 11:02] VITALS: BP 197/121
[2024-12-19] MEDS: Sacubitril/Valsartan 24/26 1 TAB TABLET PO (11:02)
[2024-12-19 11:03] VITALS: BP 197/121
[2024-12-19 11:04] VITALS: BP 197/121; PULSE 66
--- NOTE | 2024-12-19 11:48 | MHC.CM.PN ---
Addendum entered by Ele Salazar 12/19/24 15:33: Pt is medically cleared for discharge home with resumption of previous [employer] services and outpt HD, she will transport home via lyft ride. Original Note: IMM given 12/19. Pt lives at home with her 3 children and boyfriend. Pt has a [employer] 12.5 hours/week, and goes to [facility] for HD on /. Pt will transport home via Lyft ride. HCP on file, pt requested to change it to remove one of the health care agents, new HCP completed and now on file. PCP: Mauricio WARNER
[2024-12-19 12:00] VITALS: BP 135/76; PULSE 66; RESP 18; TEMP 36.2; O2SAT 96
[2024-12-19 12:57] LABS: Glucose, Whole Blood 147 mg/dL (60-115)
--- NOTE | 2024-12-19 14:43 | PM.DS ---
DS: Providers Provider Date of Service: 12/19/24 Date of admission: 12/18/24 08:02 Date of discharge: 12/19/24 Primary care physician: TWILA Benitez Consults: 12/18/24 08:01 Consult to Nephrology Routine Consulting Provider: [facility] Reason for consultation: hyperkalemia DS: Diagnosis Discharge Diagnosis (1) Bipolar 1 disorder: Status: Acute DS: Summary Hospital Course Hospital Course: 44-year-old female with a past medical history significant for HTN, ESRD on HD MWF, solitary seizure as child, HFpEF history DVT type 2 diabetes lupus, Sjogren's, mood disorder, substance use disorder who presented to the ED on 12/18/2024 due to acute onset chest pain and was noted to have hyperkalemia and type 2 IA in the setting of ESRD. Patient underwent an extra session of dialysis on Thursday12/18/2024. For hyperkalemia, she was treated with medical management prior to be extra session of hemodialysis. Patient also underwent dialysis per her schedule today on 12/19/2024. Patient tolerated the hemodialysis well , hemodynamically stable and is being discharged without any change in medications. Hyperkalemia Chest pain Type 2 IA secondary to ESRD 44-year-old female with a past medical history significant for HTN, ESRD on HD MWF, solitary seizure as child, HFpEF history DVT type 2 diabetes lupus, Sjogren's, mood disorder, substance use disorder who presented to the ED on 12/18/2024 due to acute onset chest pain and was noted to have hyperkalemia and type 2 IA in the setting of ESRD. Patient underwent an extra session of dialysis on Thursday12/18/2024. For hyperkalemia, she was treated with medical management prior to be extra session of hemodialysis. Patient also underwent dialysis per her schedule today on 12/19/2024. Patient tolerated the hemodialysis well , hemodynamically stable and is being discharged without any change in medications. ESRD HD MWF Underwent hemodialysis per her usual schedule today. Patient tolerated the hemodialysis well , hemodynamically stable and is being discharged without any change in medications. For her chronic medical conditions-, we continued all home meds inpatient did not require any changes in meds. Time spent discussing smoking cessation with patient: more than 10 minutes Time Attestation Discharge Coordination Time (in mins): 35 Quality: Safe Use of Opioids Does Pt have an Active Cancer Diagnosis on the Problem List?: No Quality: Stroke Does the patient have a stroke diagnosis?: No Physical Exam Vital Signs: Vital Signs: Last Vital Signs Temp 97.2 F 12/19/24 12:00 Pulse 66 12/19/24 12:00 Resp 18 12/19/24 12:00 BP 135/76 12/19/24 12:00 Pulse Ox 96 12/19/24 12:00 O2 Del Method Room Air 12/19/24 12:00 BMI result Body Mass Index 25.8 DS: Data Data Completed and Pending Completed studies during hospitalization [Text1]: Procedures Drainage of Left Knee Joint, Percutaneous Approach (01/07/21) Fluoroscopy of Inferior Vena Cava, Guidance (06/07/23) Insertion of Infusion Device into Superior Vena Cava, Percutaneous Approach (06/07/23) Insertion of Tunneled Vascular Access Device into Chest Subcutaneous Tissue and Fascia, Percutaneous Approach (06/07/23) Performance of Urinary Filtration, Intermittent, Less than 6 Hours Per Day (07/10/24) Labs on day of discharge: Laboratory Results - last 24 hr 12/18/24 12/18/24 12/18/24 14:35 15:57 19:59 WBC RBC Hgb Hct MCV MCH MCHC RDW Plt Count MPV Absolute Nucleated RBC Nucleated RBC % (auto) Sodium 137 Potassium 4.7 D Chloride 99 Carbon Dioxide 26 Anion Gap 17 BUN 34 H Creatinine 4.16 H* Estim Creat Clear Calc 18.5 Estimated GFR 12 POC Glucose 124 H 96 Random Glucose 145 H Calcium 8.3 L D 12/19/24 12/19/24 12/19/24 06:04 07:09 12:54 WBC 11.5 H RBC 3.43 L Hgb 11.3 L Hct 33.0 L MCV 96.2 MCH 32.9 MCHC 34.2 RDW 13.0 Plt Count 423 H MPV 9.8 Absolute Nucleated RBC 0.000 Nucleated RBC % (auto) 0.0 Sodium 135 Potassium 4.6 Chloride 99 Carbon Dioxide 22 Anion Gap 19 BUN 55 H Creatinine 5.53 H* Estim Creat Clear Calc 13.9 Estimated GFR 8 POC Glucose 124 H 147 H Random Glucose 103 Calcium 7.6 L D Discharge Plan Discharge Anticipated Discharge Date/Time: 12/19/24 14:37 Patient Disposition: Home, Self-Care Discharge Diagnosis: hyperkalemia and CP req extra session of HD Referrals: Mauricio Nolasco, [facility] [Primary Care Provider, Internal Medicine] - 1 Week Discharge Medications: Continued (DME) lancets [FreeStyle Lancets] 28 gauge misc See Rx Instructions .Route Qty: 100 4RF Rx Instructions: As directed- tests 4X/day (DME) blood pressure test kit-large Kit See Rx Instructions .Route Qty: 1 0RF Rx Instructions: daily use (DME) pen needle, diabetic 32 gauge x 1/4 needle Qty: 100 0RF Rx Instructions: Use four times a day or as directed. nicotine [Nicoderm CQ] 14 mg/24 hr patch 24 hour 1 patch transdermal DAILY Qty: 28 0RF albuterol sulfate 90 mcg/actuation HFA aerosol inhaler 1 inh inhalation QID PRN (Reason: Wheezing) 30 Days Qty: 8.5 1RF carvedilol 25 mg tablet 50 mg PO BID nifedipine 90 mg tablet extended release 24hr 90 mg PO BID (DME) FreeStyle Lite Strips Strip Qty: 100 0RF Rx Instructions: Test four times a day or as directed. (DME) blood-glucose meter [FreeStyle Lite Meter] Kit Qty: 1 0RF Rx Instructions: As Directed (DME) lancets [FreeStyle Lancets] 28 gauge misc Qty: 100 0RF Rx Instructions: Test four times a day or as directed. clonidine HCl 0.1 mg tablet 0.1 mg PO BID ondansetron 4 mg tablet,disintegrating 4 mg PO Q8H PRN (Reason: Nausea And Vomiting) levetiracetam 500 mg Tablet 500 mg PO BID Qty: 180 0RF (DME) Ultra-Light Rollator Misc See Rx Instructions .Route Qty: 1 0RF Rx Instructions: As directed losartan 50 mg tablet 50 mg PO DAILY prochlorperazine maleate 5 mg tablet 5 mg PO BID PRN (Reason: Nausea And Vomiting) spironolactone 25 mg tablet 25 mg PO DAILY Jaclyn-Elias 0.8 mg tablet 1 tab PO DAILY famotidine 20 mg tablet 20 mg PO DAILY PRN (Reason: Heartburn) sacubitril-valsartan [Entresto] 24-26 mg tablet 1 tab PO DAILY Protocol: Hold for SBP< HOLD for SBP < : 90 (DME) blood-glucose meter [FreeStyle Lite Meter] Kit See Rx Instructions .Route Qty: 1 0RF Rx Instructions: As directed tests 4 X/day (DME) FreeStyle Lite Strips Strip See Rx Instructions .Route Qty: 100 5RF Rx Instructions: As directed- tests 4X/day Discharge Orders: Discharge Order (Routine); Ordered 12/19/24 Ordered By: Maria T Mckeon Diet: Renal Activity on Discharge: As tolerated Stand Alone Forms: Patient Portal Discharge page Print Language: Sinhala Care Plan Goals: Follow hemodialysis per her schedule Continue home meds Health Concerns: See above Plan of Treatment: See above Assessment: See above
== END 2024-12-19 15:37 | disposition home or self-care (01) | DRG 291 ==
LOC: HO.ED 06:34 → HO.EDOVER 08:29 → HO.IMC 08:34
PROVIDERS: Internal Medicine Critical Care Medicine; Admitting Provider Nurse Practitioner Acute Care; Emergency Provider Emergency Medicine; PCP Nurse Practitioner Family; Visit Provider Student in an Organized Health Care Education/Training Program
DX: I13.2 Hypertensive heart and chronic kidney disease with heart failure and with stage 5 chronic kidney disease, or end stage renal disease (principal); N18.6 End stage renal disease; I50.32 Chronic diastolic (congestive) heart failure; I16.0 Hypertensive urgency; E87.5 Hyperkalemia; E11.22 Type 2 diabetes mellitus with diabetic chronic kidney disease; Z99.2 Dependence on renal dialysis; D63.1 Anemia in chronic kidney disease; F17.210 Nicotine dependence, cigarettes, uncomplicated; Z71.6 Tobacco abuse counseling; Z79.899 Other long term (current) drug therapy
CPT/HCPCS: 36415; 71045; 80048; 80053; 82947; 83735; 83880; 84484; 85025; 85027; 90999; 93005; 99285; J0613; J2405; J3010

== ENCOUNTER → 2024-12-18 05:38 | Outpatient (BNV) | payer MEDICARE, MEDICAID, SELFPAY ==
[2024-10-11 08:46] VITALS: BP 190/120; BMI 29.0
== END ==
PROVIDERS: Admitting Provider Nurse Practitioner Acute Care; Emergency Provider Emergency Medicine; PCP Nurse Practitioner Family; Visit Provider Internal Medicine Cardiovascular Disease
DX: I51.7 Cardiomegaly (principal)
CPT/HCPCS: 93010

== ENCOUNTER → 2024-12-18 06:34 | Outpatient (BNV) | payer MEDICARE, MEDICAID, SELFPAY ==
[2024-10-11 08:46] VITALS: BP 190/120; BMI 29.0
== END ==
PROVIDERS: Emergency Provider Emergency Medicine; PCP Nurse Practitioner Family; Visit Provider Radiology Vascular & Interventional Radiology
DX: R07.9 Chest pain, unspecified (principal)
CPT/HCPCS: 71045

== ENCOUNTER → 2024-12-18 08:02 | Outpatient (BNV) | payer MEDICARE, MEDICAID, SELFPAY ==
[2024-10-11 08:46] VITALS: BP 190/120; BMI 29.0
== END ==
PROVIDERS: Admitting Provider Nurse Practitioner Acute Care; Emergency Provider Emergency Medicine; PCP Nurse Practitioner Family; Visit Provider Student in an Organized Health Care Education/Training Program
DX: F31.9 Bipolar disorder, unspecified (principal)
CPT/HCPCS: 99239

== ENCOUNTER 2025-02-02 13:15 | Outpatient (AMB) | payer MEDICARE, MEDICAID, SELFPAY ==
[2024-10-11 08:46] VITALS: BP 190/120; BMI 29.0
--- NOTE | 2025-02-02 13:38 | A.OFFPC_ITS ---
Vital Signs 02/02/25 13:43 BP 136/70 Blood Pressure Location Lt brachial Position Sitting Respiration 18 Pulse 74 Intake Visit Reasons: PE - see comments Desk Clerk Required: No Accompanied by: Self / Same As Patient Allergies amoxicillin Allergy (Unknown, Verified 02/02/25 14:08) rash cefaclor (From Ceclor) Allergy (Unknown, Verified 02/02/25 14:08) RASH cephalexin Allergy (Unknown, Verified 02/02/25 14:08) rash Cephalosporins (CEPHALOSPORINS) Allergy (Unknown, Verified 02/02/25 14:08) RASH ALL OVER cephradine (From VELOSEF) Allergy (Unknown, Verified 02/02/25 14:08) RASH Penicillins (PENICILLINS) Allergy (Unknown, Verified 02/02/25 14:08) RASH gabapentin (GABAPENTIN) Adverse Reaction (Unknown, Verified 02/02/25 14:08) RESTLESS LEGS, Body becomes very uncomfortable Medication List - Last Reconciled 02/02/25 by ARRON AshleyP- albuterol sulfate 90 mcg/actuation 1 inh inhalation QID PRN 30 days B complex-vitamin C-folic acid 0.8 mg (Jaclyn-Elias) 1 tab PO DAILY blood pressure test kit-large daily use blood sugar diagnostic (FreeStyle Lite Strips) Test four times a day or as directed. blood sugar diagnostic (FreeStyle Lite Strips) As directed- tests 4X/day blood-glucose meter (FreeStyle Lite Meter kit) As Directed blood-glucose meter (FreeStyle Lite Meter kit) As directed tests 4 X/day carvedilol 50 mg PO BID clonidine HCl 0.1 mg PO BID famotidine 20 mg PO DAILY PRN lancets (FreeStyle Lancets) Test four times a day or as directed. lancets (FreeStyle Lancets) As directed- tests 4X/day losartan 50 mg PO DAILY nifedipine ER 90 mg PO BID ondansetron 4 mg PO Q8H PRN pen needle, diabetic Use four times a day or as directed. prochlorperazine maleate 5 mg PO BID PRN sacubitril-valsartan 24-26 mg (Entresto) 1 tab See Protocol PO DAILY spironolactone 25 mg PO DAILY walker (Ultra-Light Rollator misc) As directed Tobacco use date assessed: 02/02/25 Dental Screening Dental Screen Date: 02/02/25 Did you have a dental visit in the last 12 months?: Yes Did you have a dental problem in the last 6 months where you did not have access to dental care?: No Was dental information given to patient?: Patient has dentist HPI PE - see comments HPI Details History of Present Illness The patient is a 44-year-old female presenting for a physical exam. The patient has a history of diabetes and receives dialysis three times a week. She reports her last HbA1c was in the low 6s, around 6.2, and a recent blood glucose reading was 114. She has a history of congestive heart failure and is followed by cardiology on a regular basis. The patient is also blind in her right eye and sees an pharmacovigilance specialist and retinal specialist regularly. For health maintenance, she has been encouraged to have yearly Pap smears and an order for a mammogram was placed, as she missed her last appointment. She has a therapist and a psychiatrist whom she sees regularly. Health Maintenance The patient was encouraged to follow up with her HEAT TREAT OPERATOR for a yearly Pap smear. An order for a mammogram was placed, as she missed her previous appointment. Social History - The patient sees a therapist and a psy chiatrist regularly for mental health support. Review of Systems - Cardiovascular: Denies chest pain. - Respiratory: Denies increased dyspnea. - Gastrointestinal: Denies abdominal campbell n, constipation, and diarrhea. - Psychiatric: Denies active suicidal or homicidal ideation. Physical Exam General: Cooperative, healthy appearing, comfortable, no acute distress and well developed Orientation: Patient oriented x3 Limitations: No limitations Head: Normal to inspection Ears: Hearing grossly normal bilaterally Nose: Normal external nose present Face and sinus: Normal facial exam Eyes: Blind in right eye, appearance normal in left eye and all related structures Neck: Normal visual inspection and Yes full ROM Respiratory: Normal respiratory effort and able to speak in complete sentences. Clear to auscultation bilaterally Cardiovascular: Regular rate and rhythm. Normal S1 and S2, systolic murmur GI: Normal to inspection. Soft to palpation and nontender Skin: No rashes or lesions noted Neuro: Patient oriented x3 Extremities: Normal to inspection, + sensation to feet with monofilament, feet intact bilat Results - Labs: Patient reports a prior HbA1c of approximately 6.2 and a recent blood glucose of 114. Plan 1. Diabetes Mellitus The patient is a known diabetic on dialysis, reporting a recent HbA1c of 6.2 and a blood glucose of 114. To better assess glycemic control, as HbA1c levels can be unreliable in patients on dialysis, labs including an HbA1c and a fructosamine will be ordered. 2. Congestive Heart Failure The patient has a history of CHF and sees cardiology regularly. She denies any active chest pain or increased shortness of breath. She will continue to follow up with her automation test developer. 3. Blindness, Right Eye The patient is blind in her right eye and will continue with her regular follow- ups with her pharmacovigilance specialist and retinal specialist. 4. Mental Health Follow-Up The patient sees a therapist and a psychiatrist regularly and denies any active suicidal or homicidal ideation. She will continue with her regular mental health appointments. Discussion Notes I discussed the patient's ongoing management for her diabetes, noting that her reported A1c was in the low 6s. I explained that we would order an A1c and a fructosamine level to get a clearer picture of her glucose control, especially given her dialysis treatment. I encouraged her to follow up with her HEAT TREAT OPERATOR for a yearly Pap smear and placed a new order for a mammogram, advising her to complete this screening since the last appointment was missed. Patient Instructions - Please get your blood work done as ord ered to check on your diabetes. - An order for your mammogram has been p jazlyn. - Please schedule this appointment as yo u missed the last one. - Remember to schedule your yearly Pap s mear with your HEAT TREAT OPERATOR doctor. - Continue your dialysis treatments thre e times a week. - Continue following up with your heart doctor, eye doctor, therapist, and psychiatrist as you have been doing. [facility] Medical History Cocaine use Substance use disorder Seizure Anemia ESRD (end stage renal disease) UTI (urinary tract infection) Legally blind Vascular dialysis catheter in place Hypertensive retinopathy Macular edema Diabetic retinopathy Hyperglycemia CHF (congestive heart failure) Hypertensive urgency Malignant hypertension CKD (chronic kidney disease) Heart block AV second degree Hypersomnia Cardiomyopathy CKD (chronic kidney disease) stage 2, GFR 60-89 ml/min Nicotine dependence, cigarettes, uncomplicated (~1999) Eclampsia Fatty liver Heart failure, unspecified (~09/2020) History of DVT (deep vein thrombosis) Diabetes mellitus Migraines Sjogren's disease Lupus Rheumatoid arthritis High cholesterol Anxiety PTSD (post-traumatic stress disorder) Bipolar 1 disorder H/O mixed connective tissue disease HTN (hypertension) Surgical History History of H/O eye surgery History of hip surgery Tubal ligation status History of bronchoscopy (~11/2020) History of cholecystectomy (~05/2014) Family History Father Substance use disorder Mental health disorder Brother Substance use disorder Mental health disorder Brother Substance use disorder Mental health disorder Other Diabetes HTN (hypertension) Social History Household Members: Family Household Members Other:: 3 Housing: House Are you a primary customer care representative to a significant other at home: No Do you presently have visiting nurse or other home services: No Alcohol intake: never Patient Tobacco Use Status: Current everyday Tobacco user Tobacco use type: Cigarette Cigarette Packs Per Day: 1 Cigarettes Per Day: 5 Years Smoked: 20 e-Cigarette/Vaping Use: Never Used Second Hand Smoke Exposure: No Substance Use Type: Crack/Cocaine and Marijuana Advance Directives Date on File: 06/03/21 service: No Current occupational status: disabled Cognitive needs: No Hearing needs: No Vision needs: No Questionnaire PHQ-9 Over the last 2 weeks, how often have you been bothered by any of the following problems? 1. Little interest or pleasure in doing things: several days 2. Feeling down, depressed, or hopeless: several days 3. Trouble falling or staying asleep, or sleeping too much: several days 4. Feeling tired or having little energy: several days 5. Poor appetite or overeating: several days 6. Feeling bad about yourself - or that you are a failure or have let yourself or your family down: several days 7. Trouble concentrating on things, such as reading the newspaper or watching television: several days 8. Moving or speaking so slowly that other people could have noticed. Or the opposite - being so fidgety or restless that you have been moving around a lot more than usual: several days 9. Thoughts that you would be better off or of hurting yourself in some way: several days Total score: 9 Depression Screening Interpretation: Positive (sees a therapist, and psychiatrist, denies any si or hi) Depression Screening Follow-up: Existing condition Depression Screening Done: Yes 16634 - PHQ-9 Billing: Yes Source: Developed by Drs. Ubaldo Ventura, Cheryl Watkins, Yaya Robbins and colleagues, with an educational kleber from [employer] Thrive Questionnaire Date Thrive assessed: 01/26/25 I am a: Patient What is your living situation today?: I have a steady place to live Within the past 12 months, did the food you bought not last and you didn't have the money to get more?: Sometimes True Within the past 12 months, did you worry whether your food would run out before you got money to buy more?: Sometimes True Do you have trouble paying for medicines?: No Do you have trouble getting transportation to medical appointments?: Yes Do you have trouble paying your heating and electricity bill?: Yes Do you have trouble taking care of your child, family member or friend?: Yes Do you have trouble with day-to-day activities such as bathing, preparing meals, shopping, managing finances, etc.?: Yes Are you currently unemployed and looking for a job?: No Are you interested in more education?: No Please select the resources that you would like help with: None Currently or been in a relationship where the following occur: I choose not to answer THRIVE Score: 4 AUDIT C Alcohol Use Questionnaire (AUDIT-C) 1. How often do you have a drink containing alcohol?: Monthly or less Total Score: 1 KESHAWN-7 AMB Questionnaire KESHAWN-7 Date KESHAWN - 7 assessed: 01/27/24 Feeling nervous, anxious, or on edge: 3 = Nearly every day Not being able to stop or control worryin = Nearly every day Worrying too much about different things: 3 = Nearly every day Trouble relaxin = Several days Being so restless that it is hard to sit still: 0 = Not at all Becoming easily annoyed or irritable: 3 = Nearly every day Feeling afraid as if something awful might happen: 1 = Several days Total KESHAWN-7 score (0-4 normal; 5-9 mild; 10-14 moderate; 15-21 severe): 14 Source: Developed by Drs. Ubaldo Ventura, Cheryl Watkins, Yaya Robbins and colleagues, with an educational kleber from [employer] KESHAWN-7 Assessment Billing KESHAWN-7 Assessment Tool: KESHAWN-7 Assessment 81849 (denies any si or hi, has a psych team) Physical exam (Primary Care) Vital Signs: Last Vital Signs Pulse 74 02/02/25 13:43 Resp 18 02/02/25 13:43 BP 136/70 02/02/25 13:43 Tobacco/Smoking Status: Tobacco use Status Tobacco use date assessed 02/02/25 02/02/25 13:46 Patient Tobacco Use Status Current everyday Tobacco 02/02/25 13:39 Tobacco use type Cigarette 02/02/25 13:39 e-Cigarette/Vaping Use Never Used 02/02/25 13:39 PHQ-9: PHQ-9 Score PHQ-9: Total score 9 02/02/25 14:02 Depression Screening Interpretation: Positive (sees a therapist, and psychiatrist, denies any si or hi) Depression Screening Follow-up: Existing condition Thrive Assessment: Date of Thrive Assessment Date Thrive assessed 01/26/25 02/02/25 13:39 Currently or been in a relationship where the following occur: I choose not to answer Coding Level of Care Code Est Pt Level 3 (06450) Est Pt Prev Care 40-64y(69753) Diagnoses Uncontrolled hypertension I10 Diabetes E11.9 Encounter for routine adult physical exam with abnormal findings Z00.01 Additional Codes PHQ-9 - 05050 - PHQ-9 Billing: Yes ([id number]) KESHAWN-7 Assessment Billing - KESHAWN-7 Assessment Tool: KESHAWN-7 Assessment [id number] ([id number]) Assessment & Plan Assessment & Plan (1) Uncontrolled hypertension: Code(s): I10 - Essential (primary) hypertension Category: Medical (2) Diabetes: Code(s): E11.9 - Type 2 diabetes mellitus without complications Category: Medical (3) Encounter for routine adult physical exam with abnormal findings: Code(s): Z00.01 - Encounter for general adult medical examination with abnormal findings Category: Medical Plan . Orders: Orders Fructosamine Today E11.9 - Type 2 diabetes mellitus without complications, I10 - Essential (primary) hypertension Hemoglobin A1c Today E11.9 - Type 2 diabetes mellitus without complications, I10 - Essential (primary) hypertension Complete Blood Count Auto Diff Today E11.9 - Type 2 diabetes mellitus without complications, I10 - Essential (primary) hypertension, Z00.01 - Encounter for general adult medical examination with abnormal findings Comprehensive [place]. Panel Fast Today E11.9 - Type 2 diabetes mellitus without complications, I10 - Essential (primary) hypertension, Z00.01 - Encounter for general adult medical examination with abnormal findings TSH reflex Free T4 Today E11.9 - Type 2 diabetes mellitus without complications, I10 - Essential (primary) hypertension, Z00.01 - Encounter for general adult medical examination with abnormal findings UA CC w/rflx Micro + Cult Today E11.9 - Type 2 diabetes mellitus without complications, I10 - Essential (primary) hypertension, Z00.01 - Encounter for general adult medical examination with abnormal findings Lipid Panel Today E11.9 - Type 2 diabetes mellitus without complications, I10 - Essential (primary) hypertension, Z00.01 - Encounter for general adult medical examination with abnormal findings Vitamin D 25-OH Total Today E11.9 - Type 2 diabetes mellitus without complications MM screening mammo BI Today Z12.31 - Encounter for screening mammogram for malignant neoplasm of breast TDaP Immunization Today Z23 - Encounter for immunization Referrals Ophthalmology Referral E11.9 - Type 2 diabetes mellitus without complications Medications: New nicotine 1 patch transdermal DAILY 28 ea 0RF Boostrix Tdap (diphth,pertus(acell),tetanus) 0.5 mL IM ONCE 0.5 mL 0RF NS Z23 - Encounter for immunization
[2025-02-02 13:43] VITALS: BP 136/70; PULSE 74; RESP 18
== END 2025-02-02 14:33 | disposition home or self-care (01) ==
LOC: HO.HMCC 13:16
PROVIDERS: PCP Nurse Practitioner Family; Visit Provider Nurse Practitioner Family
DX: Z00.01 Encounter for general adult medical examination with abnormal findings (principal); I10 Essential (primary) hypertension; E11.9 Type 2 diabetes mellitus without complications; Z23 Encounter for immunization

== ENCOUNTER → 2025-02-02 13:15 | Outpatient (BNVA) | payer MEDICARE, MEDICAID, SELFPAY ==
[2024-10-11 08:46] VITALS: BP 190/120; BMI 29.0
== END ==
PROVIDERS: PCP Nurse Practitioner Family; Visit Provider Nurse Practitioner Family
DX: Z00.01 Encounter for general adult medical examination with abnormal findings (principal); E11.9 Type 2 diabetes mellitus without complications; I50.9 Heart failure, unspecified; I10 Essential (primary) hypertension; Z23 Encounter for immunization; Z13.31 Encounter for screening for depression; Z13.39 Encounter for screening examination for other mental health and behavioral disorders
CPT/HCPCS: 90471; 90715; 96127; 99396

== ENCOUNTER 2025-02-07 10:52 | Emergency (ER) | payer MEDICARE, MEDICAID, SELFPAY ==
[2024-10-11 08:46] VITALS: BP 190/120; BMI 29.0
--- NOTE | ~2025-02-07 | XR_ITS ---
EXAMINATION: XR CHEST CLINICAL INFORMATION: chest pain SOB COMPARISON: December 18, 2024 TECHNIQUE: PA and lateral views FINDINGS: No consolidation, pleural effusion or pneumothorax. Cardiomediastinal silhouette size is mildly prominent, unchanged. Multilevel spondylosis, thoracic spine. Old healed rib fracture in the posterior lateral aspect of the left seventh rib. XR/XR chest 2V IMPRESSION: No acute airspace disease. Cardiomegaly, mild.. Electronically signed by: Karan Ferguson MD 02/07/2025 01:12 PM JUAN
[2025-02-07 10:57] VITALS: BP 182/90; PULSE 86; O2SAT 0
[2025-02-07 11:02] VITALS: BP 161/78; PULSE 67; RESP 15; TEMP 36.6; O2SAT 100; BMI 27.9
--- NOTE | 2025-02-07 11:16 | ECG_ITS ---
Test Reason : CHEST PAIN Blood Pressure : */* mmHG Vent. Rate : 62 BPM Atrial Rate : 62 BPM P-R Int : 176 ms QRS Dur : 104 ms QT Int : 444 ms P-R-T Axes : 52 8 112 degrees QTcB Int : 450 ms Normal sinus rhythm Voltage criteria for left ventricular hypertrophy ( R in aVL , Sokolow-Abarca , [place] product ) T wave abnormality, consider lateral ischemia Abnormal ECG When compared with ECG of 18-Dec-2024 16:29, T wave inversion less evident in Lateral leads Referred By: Clarissa Melo Electronically Signed By: Mike Mccray
--- NOTE | 2025-02-07 11:26 | ED.CHESTPAIN ---
HPI - Chest Pain General Chief Complaint: Chest Pain Stated Complaint: SOB, weakness, missed dialysis 1day Time Seen by Provider: 02/07/25 11:12 Source: patient Mode of arrival: ambulatory Limitations: no limitations History of Present Illness ED Provider: Dr. Gann HPI narrative: This is a 44-year-old female history of ESRD Thursday dialysis with Dr. Duarte who is her gum maker presented hospital today for evaluation of shortness of breath and feeling fever. She stated that her significant other and son has been sick at home. She complaining of a feeling warm. She stated that she does have some nasal congestion. She missed dialysis on Thursday due to taking care of her son. Related Data Home Medications ?Medication ?Instructions ?Recorded ?Confirmed carvedilol 25 mg tablet 50 mg PO BID 03/20/22 02/02/25 nifedipine 90 mg tablet,extended 90 mg PO BID 04/22/22 02/02/25 release 24 hr famotidine 20 mg tablet 20 mg PO DAILY PRN Heartburn 05/22/24 02/02/25 prochlorperazine maleate 5 mg 5 mg PO BID PRN Nausea And Vomiting 05/22/24 02/02/25 tablet sacubitril 24 mg-valsartan 26 mg 1 tab PO DAILY 05/22/24 02/02/25 tablet (Entresto) spironolactone 25 mg tablet 25 mg PO DAILY 05/22/24 02/02/25 vitamin B complex-vitamin C-folic 1 tab PO DAILY 05/22/24 02/02/25 acid 0.8 mg tablet (Jaclyn-Elias) clonidine HCl 0.1 mg tablet 0.1 mg PO BID 07/11/24 02/02/25 ondansetron 4 mg disintegrating 4 mg PO Q8H PRN Nausea And Vomiting 07/11/24 02/02/25 tablet losartan 50 mg tablet 50 mg PO DAILY 12/18/24 02/02/25 Previous Rx's ?Medication ?Instructions ?Recorded lancets 28 gauge (FreeStyle #100 ea 03/20/22 Lancets) blood pressure test kit-large #1 ea 03/25/22 blood sugar diagnostic (FreeStyle #100 ea 05/18/23 Lite Strips) blood-glucose meter (FreeStyle #1 ea 05/18/23 Lite Meter kit) blood sugar diagnostic (FreeStyle #100 ea 06/09/23 Lite Strips) blood-glucose meter (FreeStyle #1 ea 06/09/23 Lite Meter kit) lancets 28 gauge (FreeStyle #100 ea 06/09/23 Lancets) pen needle, diabetic 32 gauge x #100 ea 10/04/23 1/4 albuterol sulfate 90 mcg/actuation 1 inh inhalation QID PRN Wheezing 06/05/24 aerosol inhaler 30 days #8.5 grams nicotine 14 mg/24 hr daily 1 patch transdermal DAILY #28 ea 02/02/25 transdermal patch walker (Ultra-Light Rollator misc) #1 ea 02/07/25 Allergies Allergy/AdvReac Type Severity Reaction Status Date / Time amoxicillin Allergy Unknown rash Verified 02/07/25 11:15 cefaclor (From Ceclor) Allergy Unknown RASH Verified 02/07/25 11:15 cephalexin Allergy Unknown rash Verified 02/07/25 11:15 Cephalosporins Allergy Unknown RASH ALL Verified 02/07/25 11:15 (CEPHALOSPORINS) OVER cephradine (From VELOSEF) Allergy Unknown RASH Verified 02/07/25 11:15 Penicillins (PENICILLINS) Allergy Unknown RASH Verified 02/07/25 11:15 gabapentin (GABAPENTIN) AdvReac Unknown RESTLESS Verified 02/07/25 11:15 LEGS, Body becomes very uncomfortable Review of Systems Review of Systems: Pertinent review of systems as mentioned in HPI. All other system otherwise negative. [facility] Past Medical History Attestation statement: The following information was validated with the patient. [facility] Narrative: ESRD Thursday dialysis my diabetes, CHF, hyperlipidemia, bipolar disease Medical History Cocaine use Substance use disorder Seizure Anemia ESRD (end stage renal disease) UTI (urinary tract infection) Legally blind Vascular dialysis catheter in place Hypertensive retinopathy Macular edema Diabetic retinopathy Hyperglycemia CHF (congestive heart failure) Hypertensive urgency Malignant hypertension CKD (chronic kidney disease) Heart block AV second degree Hypersomnia Cardiomyopathy CKD (chronic kidney disease) stage 2, GFR 60-89 ml/min Nicotine dependence, cigarettes, uncomplicated (~1999) Eclampsia Fatty liver Heart failure, unspecified (~09/2020) History of DVT (deep vein thrombosis) Diabetes mellitus Migraines Sjogren's disease Lupus Rheumatoid arthritis High cholesterol Anxiety PTSD (post-traumatic stress disorder) Bipolar 1 disorder H/O mixed connective tissue disease HTN (hypertension) Surgical History History of H/O eye surgery History of hip surgery Tubal ligation status History of bronchoscopy (~11/2020) History of cholecystectomy (~05/2014) Family History Family History Father Substance use disorder Mental health disorder Brother Substance use disorder Mental health disorder Brother Substance use disorder Mental health disorder Other Diabetes HTN (hypertension) Social History Social History Household Members: Family Household Members Other:: 3 Housing: House Are you a primary resident care coordinator to a significant other at home: No Do you presently have visiting nurse or other home services: No Alcohol intake: never Patient Tobacco Use Status: Current everyday Tobacco user Tobacco use type: Cigarette Cigarette Packs Per Day: 1 Cigarettes Per Day: 5 Years Smoked: 20 e-Cigarette/Vaping Use: Never Used Second Hand Smoke Exposure: No Substance Use Type: Crack/Cocaine and Marijuana Advance Directives: Yes Advance Directives on File: Yes Advance Directives Date on File: 06/03/21 service: No Current occupational status: disabled Cognitive needs: No Hearing needs: No Vision needs: No Physical Exam Exam: Exam: General: Pleasant, no distress, interacting appropriately Head: Normacephalic, atraumatic ENT: oral mucosa moist, neck supple, no tracheal deviation Cardiovascular: regular rate, regular rhythm, no murmurs, rubbing, gallops Respiratory: CTAB, no wheeze, rales, rhonchi Gastrointestinal: Soft, non distended, non tender, non guarding Extremities: Palpable thrill on the left forearm fistula on exam Neurological: Awake and alert, no facial droop noted Skin: Warm and dry, patient does feel warm to touch I suspect she likely has a fever. Psychiatric: Appropriate mood and thoughts Vital Signs: Vital Signs: Last Vital Signs Temp 97.8 F 02/07/25 11:02 Pulse 64 02/07/25 11:31 Resp 14 02/07/25 11:31 BP 168/91 H 02/07/25 14:22 Pulse Ox 100 02/07/25 11:31 O2 Del Method Room Air 02/07/25 11:31 BMI result Body Mass Index 27.9 Medications Administered Discontinued Medications Generic Name Dose Route Start Last Admin Trade Name Opal PRN Reason Stop Dose Admin Acetaminophen 975 mg 02/07/25 12:38 02/07/25 12:45 Acetaminophen 325 Mg Tablet PO 02/07/25 12:39 975 mg ONCE ONE Administration Furosemide 80 mg 02/07/25 13:49 02/07/25 14:22 Furosemide 100 Mg/10 Ml Vial IVPUSH 02/07/25 13:50 80 mg ONCE ONE Administration Protocol Sodium Zirconium Cyclosilicate 10 gm 02/07/25 13:49 02/07/25 14:22 Sodium Zirconium Cyclosilicate 10 Gm Powd.Pack PO 02/07/25 13:50 10 gm ONCE ONE Administration Medical Decision Making Medical Decision Making MDM Narrative: 44-year-old female history of ESRD, diabetes, NSTEMI, CHF presented hospital today for evaluation shortness of breath. Patient has missed dialysis session on Thursday. Has suspect patient likely has a URI. She does have sick contacts at home. She does feel warm on exam. However did not register fever here. We will obtain to obtain a x-ray of the plan for flu and COVID swab Chemistries did not show any signs of hyperkalemia. We will add a BNP to patient's lab work. We will plan to reach out to the gum maker Dr. Duarte for further recommendations. Patient CBC did not show any signs of leukocytosis, patient's creatinine is elevated consistent with her ESRD. Slight metabolic acidosis at 19, patient's potassium is normal at 4.8. [place] [address]. This may be secondary to her ESRD status. Chest x-ray did not show any signs of significant pulmonary edema. It does not tachypneic or hypoxic. I did discuss the case with the gum maker Dr. Duarte. We will recommends giving 80 mg IV Lasix and a dose of Lokelma here and discharge patient and have her follow up in dialysis center tomorrow for dialysis. Discussed with the patient about this plan. She is agreeable with this. Patient will be discharged Differential Diagnosis Differential Diagnoses: The differential diagnosis associated with the presentation includes Pulmonary edema, CHF, URI, pneumonia, bronchitis Consult Healthcare Provider Management of the patient was discussed with: Marine Underwriter (Dr. Duarte (gum maker)) Lab Data MDM Lab Attestation statement: I reviewed the patient's lab results. 02/07/25 11:45 02/07/25 11:45 Labs: Lab Results 02/07/25 02/07/25 Range/Units 11:45 12:44 WBC 10.0 (4.8-10.8) X10*3/uL RBC 2.90 L (4.20-5.50) X10*6/uL Hgb 9.5 L (12.0-16.0) g/dl Hct 28.5 L (37.0-47.0) % MCV 98.3 H (80.0-98.0) fL MCH 32.8 (27.0-33.0) pg MCHC 33.3 (31.0-35.0) g/dl RDW 14.1 (11.0-16.0) % Plt Count 316 D (160-400) X10*3/uL MPV 9.3 L (9.4-12.3) fL Immature Gran % (Auto) 0.3 (0.0-0.4) % Neut % (Auto) 61.5 (45-73) % Lymph % (Auto) 18.8 L (20-40) % [place] % (Auto) 13.1 H (2-11) % Eos % (Auto) 5.3 H (0-4) % Baso % (Auto) 1.0 (0-2) % Lymph # (Auto) 1.9 (1.2-4.9) X10*3/uL [place] # (Auto) 1.3 H (0.1-1.2) X10*3/uL Eos # (Auto) 0.5 H (0.0-0.4) X10*3/uL Baso # (Auto) 0.1 (0.0-0.2) X10*3/uL Abs Immat Gran (auto) 0.03 (0.00-0.03) X10*3/uL Absolute Neuts (auto) 6.1 (2.0-8.3) x10*3/uL Absolute Nucleated RBC 0.000 (0.0-0.012) X10*3/uL Nucleated RBC % (auto) 0.0 (0.0-0.2) /100WBC Sodium 137 (135-145) mmol/L Potassium 4.8 (3.3-5.1) mmol/L Chloride 108 (96-108) mmol/L Carbon Dioxide 19 L (22-29) mmol/L Anion Gap 15 (12-20) BUN 91 H (9-16) mg/dL Creatinine 7.13 H* (0.5-1.4) mg/dL Estim Creat Clear Calc 11.2 Estimated GFR 6 Random Glucose 148 H (60-115) mg/dL Calcium 7.7 L (8.4-10.2) mg/dL Magnesium 2.3 (1.6-2.6) mg/dL Total Bilirubin 0.4 (0.0-1.0) mg/dL AST 14 (5-31) U/L ALT 9 (0-31) U/L Alkaline Phosphatase 112 (39-117) U/L Troponin I High Sens 8.1 (<3.5-17.0) ng/L NT-Pro-B Natriuret Pep 84014.3 H (<300) pg/mL Total Protein 6.5 (6.5-8.0) g/dL Albumin 4.3 (3.5-5.0) g/dL COVID-19 (TOM) Negative (Negative) COVID-19 Clin Com See Note Influenza Type A (TOYIN) Negative (Negative) Influenza Type B (TOYIN) Negative (Negative) Influenza A & B Note See Note Independent Interpretation I performed an independent interpretation of an: Plain X-Ray Radiology Impression Discussion of test interpretation with radiology: I have reviewed the radiologist's reading. Chronic Conditions Patient?s care impacted by: Diabetes ESRD Discharge Plan Discharge Clinical Impression: ESRD on dialysis Patient Disposition: Home, Self-Care Prescriptions: No Action (DME) lancets [FreeStyle Lancets] 28 gauge misc See Rx Instructions .Route Qty: 100 4RF Rx Instructions: As directed- tests 4X/day (DME) blood pressure test kit-large Kit See Rx Instructions .Route Qty: 1 0RF Rx Instructions: daily use (DME) pen needle, diabetic 32 gauge x 1/4 needle Qty: 100 0RF Rx Instructions: Use four times a day or as directed. albuterol sulfate 90 mcg/actuation HFA aerosol inhaler 1 inh inhalation QID PRN (Reason: Wheezing) 30 Days Qty: 8.5 1RF (DME) Ultra-Light Rollator Misc See Rx Instructions .Route Qty: 1 0RF Rx Instructions: As directed carvedilol 25 mg tablet 50 mg PO BID nifedipine 90 mg tablet extended release 24hr 90 mg PO BID (DME) FreeStyle Lite Strips Strip Qty: 100 0RF Rx Instructions: Test four times a day or as directed. (DME) blood-glucose meter [FreeStyle Lite Meter] Kit Qty: 1 0RF Rx Instructions: As Directed (DME) lancets [FreeStyle Lancets] 28 gauge misc Qty: 100 0RF Rx Instructions: Test four times a day or as directed. clonidine HCl 0.1 mg tablet 0.1 mg PO BID ondansetron 4 mg tablet,disintegrating 4 mg PO Q8H PRN (Reason: Nausea And Vomiting) losartan 50 mg tablet 50 mg PO DAILY prochlorperazine maleate 5 mg tablet 5 mg PO BID PRN (Reason: Nausea And Vomiting) spironolactone 25 mg tablet 25 mg PO DAILY Jaclyn-Elias 0.8 mg tablet 1 tab PO DAILY famotidine 20 mg tablet 20 mg PO DAILY PRN (Reason: Heartburn) sacubitril-valsartan [Entresto] 24-26 mg tablet 1 tab PO DAILY Protocol: Hold for SBP< HOLD for SBP < : 90 nicotine 14 mg/24 hr patch 24 hour 1 patch transdermal DAILY Qty: 28 0RF (DME) blood-glucose meter [FreeStyle Lite Meter] Kit See Rx Instructions .Route Qty: 1 0RF Rx Instructions: As directed tests 4 X/day (DME) FreeStyle Lite Strips Strip See Rx Instructions .Route Qty: 100 5RF Rx Instructions: As directed- tests 4X/day Print Language: Mosotho
[2025-02-07 11:31] VITALS: BP 160/68; PULSE 64; RESP 14; O2SAT 100
--- NOTE | 2025-02-07 11:32 | PC.NURSE ---
Pt roomed and placed on full monitor. VSS States CP and SOB. Missed dialysis yesterday. Stated she was up 4 lbs at end of last dialysis tx then now is much higher than her dry weight- EKG labs ordered. Pt able to speak in complete sentences. AV fistula left arm, IV in place from EMS in right.
[2025-02-07 11:52] LABS: MANUAL DIFF FLAG NO
[2025-02-07 11:53] LABS: Hematocrit 28.5 % (37.0-47.0); Hemoglobin 9.5 g/dl (12.0-16.0); Imm Gran Abs Auto 0.03 X10*3/uL (0.00-0.03); Imm Gran Pct Auto 0.3 % (0.0-0.4); Lymphocytes Absolute Auto 1.9 X10*3/uL (1.2-4.9); Mean Corpuscular HGB Conc 33.3 g/dl (31.0-35.0); Mean Corpuscular Hemoglobin 32.8 pg (27.0-33.0); Mean Corpuscular Volume 98.3 fL (80.0-98.0); NRBC Abs Auto 0.000 X10*3/uL (0.0-0.012); NRBC Pct Auto 0.0 /100WBC (0.0-0.2); Platelet Count 316 X10*3/uL (160-400); Red Blood Count 2.90 X10*6/uL (4.20-5.50); White Blood Count 10.0 X10*3/uL (4.8-10.8)
[2025-02-07 12:12] LABS: Alanine Aminotransferase 9 U/L (0-31); Albumin Level 4.3 g/dL (3.5-5.0); Alkaline Phosphatase 112 U/L (39-117); Anion Gap 15 (12-20); Aspartate Amino Transferase 14 U/L (5-31); Blood Urea Nitrogen 91 mg/dL (9-16); Calcium 7.7 mg/dL (8.4-10.2); Carbon Dioxide 19 mmol/L (22-29); Chloride 108 mmol/L (96-108); Magnesium 2.3 mg/dL (1.6-2.6); Potassium 4.8 mmol/L (3.3-5.1); Sodium 137 mmol/L (135-145); Total Protein 6.5 g/dL (6.5-8.0)
[2025-02-07 12:13] LABS: Creatinine Clr Calc Pharmacy 11.2; Estimated Glomerular Filt Rate 6
[2025-02-07 12:16] LABS: Troponin-I High Sensitivity 8.1 ng/L (<3.5-17.0)
[2025-02-07 13:10] LABS: IDNOW Serial# 58CA691E; Influenza B2 Negative (Negative)
[2025-02-07 13:11] LABS: COVID-19 Test Negative (Negative); IDNOW Serial# 55D5AD1C
[2025-02-07 14:22] VITALS: BP 168/91
[2025-02-07] MEDS: Furosemide 100 MG/10 ML VIAL 80 MG IVPUSH (14:22)
--- OUTSIDE RECORDS SUMMARY | 2025-02-07 14:32 | XMS_ITS | Clinical Summary ---
Author Organization [facility] Address [address] [place] [address] Care Team Providers Care Family Practice Physician Name Role Phone Unavailable Primary Care Provider [...] exists Cholesterol Screening (Lipid Panel) 10/10/2029 10/10/2024 RSV Immunization Adult Patients (1 - 1-dose 75+ series) 2057 MMR Vaccines Completed 07/05/1993 Hepatitis B Vaccines [...]
[2025-02-07 14:40] VITALS: BP 168/91; PULSE 64; RESP 16; TEMP 37.2; O2SAT 98
== END 2025-02-07 14:41 | disposition home or self-care (01) ==
PROVIDERS: Emergency Medicine; Emergency Provider Student in an Organized Health Care Education/Training Program; PCP Nurse Practitioner Family
DX: E11.22 Type 2 diabetes mellitus with diabetic chronic kidney disease (principal); N18.6 End stage renal disease; I50.9 Heart failure, unspecified; H54.8 Legal blindness, as defined in USA; Z86.718 Personal history of other venous thrombosis and embolism; Z99.2 Dependence on renal dialysis; Z88.0 Allergy status to penicillin; Z88.8 Allergy status to other drugs, medicaments and biological substances
CPT/HCPCS: 36415; 71046; 80053; 83735; 83880; 84484; 85025; 87502; 87635; 93005; 96374; 99284; 99285; J1938

== ENCOUNTER → 2025-02-07 11:16 | Outpatient (BNV) | payer MEDICARE, MEDICAID, SELFPAY ==
[2024-10-11 08:46] VITALS: BP 190/120; BMI 29.0
== END ==
PROVIDERS: Emergency Provider Student in an Organized Health Care Education/Training Program; PCP Nurse Practitioner Family; Visit Provider Internal Medicine Cardiovascular Disease
DX: I51.7 Cardiomegaly (principal)
CPT/HCPCS: 93010

== ENCOUNTER → 2025-02-07 12:39 | Outpatient (BNV) | payer MEDICARE, MEDICAID, SELFPAY ==
[2024-10-11 08:46] VITALS: BP 190/120; BMI 29.0
== END ==
PROVIDERS: Emergency Provider Student in an Organized Health Care Education/Training Program; PCP Nurse Practitioner Family; Visit Provider Radiology Diagnostic Radiology
DX: R07.9 Chest pain, unspecified (principal); R06.02 Shortness of breath
CPT/HCPCS: 71046

== ENCOUNTER 2025-03-04 10:05 | Emergency (ER) | payer MEDICARE, MEDICAID, SELFPAY ==
[2024-10-11 08:46] VITALS: BP 190/120; BMI 29.0
--- NOTE | ~2025-03-04 | CT_ITS ---
CLINICAL HISTORY: n v abd pain CT abdomen and pelvis without contrast Comparison: None provided Findings: Streak artifacts from right ilioischial hardware limit evaluation of the pelvic contents. Mild bibasilar lung atelectasis/scarring. Small calcification at/in the vicinity of the left valentín-hepatis may be due to a calcified granuloma. Cholecystectomy. Right perihepatic surgical clips. Mild bilateral adrenal gland hyperplasia. Small superiorly exophytic left superior polar renal cyst. At least [id number] small kidneys. Small vascular calcification versus nonobstructive stone at level of the right renal collecting system. No hydronephrosis. 21 mm right ovarian dominant follicle. No bowel obstruction, pneumoperitoneum, or pneumatosis. Colonic diverticulosis without diverticulitis. Normal appendix. Atherosclerotic calcifications. Rest of the abdominopelvic viscera are unremarkable. Streak artifacts from right ilioischial hardware limit evaluation of the pelvic contents. 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 A few old healed left lower rib fractures. No acute fracture. IMPRESSION: No acute findings. Right ovarian dominant follicle. Chronic findings as detailed above. This document has been electronically signed by: Shantell Felix MD on 03/04/2025 12:28:03
--- NOTE | 2025-03-04 10:09 | ED_ITS ---
HPI - General Adult General Chief complaint: Nausea/Vomiting/Diarrhea Stated complaint: N/V FOR DAYS PER EMS,NO DIALYSIS THURSDAY Time Seen by Provider: 03/04/25 10:09 Source: patient and EMS Mode of arrival: EMS Limitations: no limitations History of Present Illness ED Provider: Melissa Parrish PA-C HPI narrative: Patient is a 44 year old assigned female at with a history of ESRD on dialysis (MWF), DM, HTN, NSTEMI, CHF, cardiomyopathy, and bipolar disorder presenting to the emergency department today with nausea, vomiting, and missed dialysis. Patient states that she began having nausea and vomiting 2 days ago and because of that - had to miss Dialysis. Patient states that she has been unable to keep her blood pressure medication down and feels generally unwell. Patient denies any other complaints at this time. Relieving factors: none Exacerbating factors: none Associated symptoms: nausea/vomiting Treatments prior to arrival: none Related Data Home Medications ?Medication ?Instructions ?Recorded ?Confirmed carvedilol 25 mg tablet 50 mg PO BID 03/20/22 nifedipine 90 mg tablet,extended 90 mg PO BID 04/22/22 03/04/25 release 24 hr famotidine 20 mg tablet 20 mg PO DAILY PRN Heartburn 05/22/24 03/04/25 prochlorperazine maleate 5 mg 5 mg PO TID PRN Nausea A nd Vomiting 05/22/24 03/04/25 tablet sacubitril 24 mg-valsartan 26 mg 1 tab PO BID 05/22/24 03/04/25 tablet (Entresto) spironolactone 25 mg tablet 25 mg PO DAILY 05/22/24 vitamin B complex-vitamin C-folic 1 tab PO DAILY 05/2203/04/25 acid 0.8 mg tablet (Jaclyn-Elias) ondansetron 4 mg disintegrating 4 mg PO Q8H PRN Nausea And Vomiting 07/11/24 03/04/25 tablet losartan 50 mg tablet 50 mg PO DAILY 12/18/2402/05 nicotine 14 mg/24 hr daily 14 mg transdermal DAILY 03/04/25 transdermal patch Previous Rx's ?Medication ?Instructions ?Recorded lancets 28 gauge (FreeStyle #100 ea 03/20/22 Lancets) blood pressure test kit-large #1 ea 03/25/22 blood sugar diagnostic (FreeStyle #100 ea 05/18/23 Lite Strips) blood-glucose meter (FreeStyle #1 ea 05/18/23 Lite Meter kit) blood sugar diagnostic (FreeStyle #100 ea 06/09/23 Lite Strips) blood-glucose meter (FreeStyle #1 ea 06/09/23 Lite Meter kit) lancets 28 gauge (FreeStyle #100 ea 06/09/23 Lancets) pen needle, diabetic 32 gauge x #100 ea 10/04/2304/09 albuterol sulfate 90 mcg/actuation 1 inh inhalation QI D PRN Wheezing 06/05/24 aerosol inhaler 30 days #8.5 grams walker (Ultra-Light Rollator misc) #1 ea 02/07/25 Allergies Allergy/AdvReac Type Severity Reaction Status Date / Time amoxicillin Allergy Unknown rash Verified 03/04/25 10:27 cefaclor (From Ceclor) Allergy Unknown RASH Verified 03/04/25 10:27 cephalexin Allergy Unknown rash Verified 03/04/25 10:27 Cephalosporins Allergy Unknown RASH ALL Verified 03/04/25 10:27 (CEPHALOSPORINS) OVER cephradine (From VELOSEF) Allergy Unknown RASH Verified 03/04/25 10:27 Penicillins (PENICILLINS) Allergy Unknown RASH Verified 03/04/25 10:27 gabapentin (GABAPENTIN) AdvReac Unknown RESTLESS Verified 03/04/25 10:27 LEGS, Body becomes very uncomfortable Review of Systems 2 Constitutional: Constitutional: Reports as per HPI Eyes: Eyes: Reports as per HPI ENT: Reports as per HPI Cardiovascular: Cardiovascular: Reports as per HPI Respiratory: Respiratory: Reports as per HPI Gastrointestinal: Gastrointestinal: Reports as per HPI Genitourinary: Genitourinary: Reports as per HPI Musculoskeletal: Musculoskeletal: Reports as per HPI Integumentary/Breasts: Skin/Breast: Reports as per HPI Neurologic: Reports as per HPI Psychiatric: Psychiatric: Reports as per HPI Endocrine: Endocrine: Reports as per HPI Hematologic/Lymphatic: Hematologic/Lymphatic: Reports as per HPI Allergic/Immunologic: Allergic/Immunologic: Reports as per HPI [facility] Past Medical History Attestation statement: The following information was validated with the patient. Source: old records reviewed and nursing notes reviewed Medical History Cocaine use Substance use disorder Seizure Anemia ESRD (end stage renal disease) UTI (urinary tract infection) Legally blind Vascular dialysis catheter in place Hypertensive retinopathy Macular edema Diabetic retinopathy Hyperglycemia CHF (congestive heart failure) Hypertensive urgency Malignant hypertension CKD (chronic kidney disease) Heart block AV second degree Hypersomnia Cardiomyopathy CKD (chronic kidney disease) stage 2, GFR 60-89 ml/min Nicotine dependence, cigarettes, uncomplicated (~1999) Eclampsia Fatty liver Heart failure, unspecified (~09/2020) History of DVT (deep vein thrombosis) Diabetes mellitus Migraines Sjogren's disease Lupus Rheumatoid arthritis High cholesterol Anxiety PTSD (post-traumatic stress disorder) Bipolar 1 disorder H/O mixed connective tissue disease HTN (hypertension) Surgical History History of H/O eye surgery History of hip surgery Tubal ligation status History of bronchoscopy (~11/2020) History of cholecystectomy (~05/2014) Family History Family History Father Substance use disorder Mental health disorder Brother Substance use disorder Mental health disorder Brother Substance use disorder Mental health disorder Other Diabetes HTN (hypertension) Social History Social History Household Members: Family Household Members Other:: 3 Housing: House Are you a primary animal caregiver to a significant other at home: No Do you presently have visiting nurse or other home services: No Alcohol intake: never Patient Tobacco Use Status: Current everyday Tobacco user Tobacco use type: Cigarette Cigarette Packs Per Day: 1 Cigarettes Per Day: 5 Years Smoked: 20 e-Cigarette/Vaping Use: Never Used Second Hand Smoke Exposure: No Substance Use Type: Crack/Cocaine and Marijuana Advance Directives: Yes Advance Directives on File: Yes Advance Directives Date on File: 06/03/21 Do you have a plan to hurt others: No Plan service: No Current occupational status: disabled Cognitive needs: No Hearing needs: No Vision needs: No Physical Exam ED Vital Signs: Vital Signs - 24 hr 03/04/25 10:23 03/04/25 11:14 03/04/25 11:45 Temperature 97.7 F 98.0 F Pulse Rate 70 75 73 Respiratory Rate 20 18 18 Blood Pressure 169/82 H 167/93 H 160/97 H Pulse Oximetry 100 98 98 Oxygen Delivery Method Room Air Room Air Room Air BMI result Body Mass Index 28.0 Const General: cooperative, no acute distress, alert and awake Nutritional Appearance: well nourished Orientation/consciousness: patient oriented x3 HENMT Head: Yes normal to inspection and Yes atraumatic Ears: hearing grossly normal bilaterally and external ears normal General nose exam: Normal external nose present, no nasal discharge noted and no epistaxis Face and sinus: Yes normal facial exam, No abrasion and No laceration Mouth: Normal oral and palatal mucosa present, no drooling and no muffled voice Eyes General: appearance normal, both eyes and all related structures Periorbital: periorbital findings normal Eyelids: Yes eyelids normal Conjunctivae: conjunctivae normal Pupils: Equal, round and reactive pupils present EOM: EOMs intact bilaterally Neck Neck: Yes normal visual inspection and Yes full ROM Resp Effort & Inspection: normal respiratory effort and able to speak in complete sentences Neuro General: patient oriented x3, moves all extremities and CN's II-XI intact bilaterally Cranial nerves: Yes Equal, round and reactive pupils present Cognition (Neuro): normal cognition Extrem Other: fistula present in the left forearm for dialysis General: Yes full ROM and Yes capillary refill normal Psych Appearance: grossly normal Mental Status: mental status grossly normal Affect: normal affect Attitude: cooperative Thought process: Normal thought process present Thought content: Normal thought content present Insight: Good insight present (Psych) Medications Administered Discontinued Medications Generic Name Dose Route Start Last Admin Trade Name Freq PRN Reason Stop Dose Admin Diazepam 2.5 mg 03/04/25 10:25 03/04/25 11:06 Diazepam 10 Mg/2 Ml Cartridge IVPUSH 03/04/25 10:26 2.5 mg STAT STA Administration Magnesium Sulfate 2 gm in 50 mls @ 150 mls/hr 03/04/25 10:25 03/04/25 12:10 Magnesium Sulfate/H2o IV 03/04/25 10:44 Infused ONCE ONE Infusion Medical Decision Making Medical Decision Making MDM Narrative: Patient is a 44 year old assigned female at with a history of ESRD on dialysis MWF, DM, HTN, NSTEMI, CHF, cardiomyopathy, and bipolar disorder presenting to the emergency department today with nausea and vomiting. Patient's physical exam was as noted in the physical exam portion of this note. Patient's blood work showed a WBC count of 13 - likely secondary to her recent vomiting, BUN of 81 + CR of 9.65 which is consistent with her ESRD baseline, normal potassium. Patient's EKG showed a prolonged QTC of 539ms for which she was given IV magnesium. Patient's CT abd/pelvis showed no acute findings. Patient received IV valium and magnesium which, upon re-evaluation, she stated it helped her symptoms some. I explained my physical exam findings as well as all test results to the patient. I answered all questions asked by the patient. Given patient's inability to tolerate PO and concern for not being able to take her medication - I recommended the patient be admitted. Patient initially agreed however, after several more hours, she stated that she felt better and wanted to be discharged. Patient was able to tolerate PO while in the department and declined a repeat EKG to confirm her QTC had decreased. I stressed the importance of the patient taking her medication as directed (either prescribed or as the over the counter packaging recommends) and holding her prescribed anti-emetic medications until she gets a repeat EKG done confirming her QTC is back to normal. I stressed the importance of the patient following up with her primary care provider and her founder and ceo. I stressed the importance of the patient returning to the emergency department immediately if her symptoms were to return or if she were to develop any dizziness, shortness of breath, difficulty breathing, chest pain, blurry vision, loss of vision, nausea, vomiting, abdominal pain, fever, chills, back pain, or any other complaints. Patient verbalized agreement and understanding with this treatment plan and discharge. Differential Diagnosis Differential Diagnoses: The differential diagnosis associated with the presentation includes Nausea Vomiting Gastroenteritis Admission/Observation Consideration of admission/observation: Escalation of care including admission/observation considered Patient was offered admission and declined as noted in the MDM Rationale portion of this note. Lab Data [facility] Lab Attestation statement: I reviewed the patient's lab results. My interpretation of these results are in the MDM Rationale portion of this note. 03/04/25 10:59 03/04/25 10:59 Labs: Lab Results 03/04/25 Range/Units 10:59 WBC 13.0 H (4.8-10.8) X10*3/uL RBC 3.28 L (4.20-5.50) X10*6/uL Hgb 11.1 L (12.0-16.0) g/dl Hct 30.9 L (37.0-47.0) % MCV 94.2 (80.0-98.0) fL MCH 33.8 H (27.0-33.0) pg MCHC 35.9 H (31.0-35.0) g/dl RDW 13.8 (11.0-16.0) % Plt Count 448 H D (160-400) X10*3/uL MPV 8.8 L (9.4-12.3) fL Immature Gran % (Auto) 0.3 (0.0-0.4) % Neut % (Auto) 69.5 (45-73) % Lymph % (Auto) 18.7 L (20-40) % [place] % (Auto) 8.0 (2-11) % Eos % (Auto) 2.7 (0-4) % Baso % (Auto) 0.8 (0-2) % Lymph # (Auto) 2.4 (1.2-4.9) X10*3/uL [place] # (Auto) 1.0 (0.1-1.2) X10*3/uL Eos # (Auto) 0.4 (0.0-0.4) X10*3/uL Baso # (Auto) 0.1 (0.0-0.2) X10*3/uL Abs Immat Gran (auto) 0.04 H (0.00-0.03) X10*3/uL Absolute Neuts (auto) 9.0 H (2.0-8.3) x10*3/uL Absolute Nucleated RBC 0.000 (0.0-0.012) X10*3/uL Nucleated RBC % (auto) 0.0 (0.0-0.2) /100WBC PT 12.1 (11.2-13.5) SEC INR 1.0 (0.9-1.1) Sodium 137 (135-145) mmol/L Potassium 4.1 (3.3-5.1) mmol/L Chloride 95 L (96-108) mmol/L Carbon Dioxide 23 (22-29) mmol/L Anion Gap 23 H (12-20) BUN 81 H (9-16) mg/dL Creatinine 9.65 H* (0.5-1.4) mg/dL Estim Creat Clear Calc 8.2 Estimated GFR 4 Random Glucose 153 H (60-115) mg/dL Calcium 6.4 L D (8.4-10.2) mg/dL Magnesium 2.0 (1.6-2.6) mg/dL Total Bilirubin 0.6 (0.0-1.0) mg/dL AST 18 (5-31) U/L ALT 9 (0-31) U/L Alkaline Phosphatase 117 (39-117) U/L Troponin I High Sens 9.7 (<3.5-17.0) ng/L Total Protein 7.1 (6.5-8.0) g/dL Albumin 4.6 (3.5-5.0) g/dL Influenza Type A (PCR) NEGATIVE (Negative) Influenza Type B (PCR) NEGATIVE (Negative) RSV RNA Qual (PCR) NEGATIVE (Negative) SARS-CoV-2 RNA (RT-PCR) NEGATIVE (Negative) Independent Interpretation I performed an independent interpretation of an: EKG and CT Scan Interpretation: My interpretation is in agreement with the radiologist's impression of this imaging study as written below. CT abdomen and pelvis without contrast Comparison: None provided Findings: Streak artifacts from right ilioischial hardware limit evaluation of the pelvic contents. Mild bibasilar lung atelectasis/scarring. Small calcification at/in the vicinity of the left valentín-hepatis may be due to a calcified granuloma. Cholecystectomy. Right perihepatic surgical clips. Mild bilateral adrenal gland hyperplasia. Small superiorly exophytic left superior polar renal cyst. At least [id number] small kidneys. Small vascular calcification versus nonobstructive stone at level of the right renal collecting system. No hydronephrosis. 21 mm right ovarian dominant follicle. No bowel obstruction, pneumoperitoneum, or pneumatosis. Colonic diverticulosis without diverticulitis. Normal appendix. Atherosclerotic calcifications. Rest of the abdominopelvic viscera are unremarkable. Streak artifacts from right ilioischial hardware limit evaluation of the pelvic contents. 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 A few old healed left lower rib fractures. No acute fracture. IMPRESSION: No acute findings. Right ovarian dominant follicle. Chronic findings as detailed above. This document has been electronically signed by: Shantell Felix MD on 03/04/2025 12:28:03 Dictated By: Shantell Felix MD Signed By: Electronically signed by Shantell Felix MD 03/04/25 1228 I independently interpreted this EKG and am in agreement with the below findings: Vent. Rate: 74 BPM Atrial Rate: 74 BPM P-R Int: 154 ms QRS Dur: 108 ms QT Int: 486 ms P-R-T Axes: 61 9 84 degrees QTcB Int: 539 ms Normal sinus rhythm Prolonged QT When compared with ECG of 07-Feb-2025 11:23, QT has lengthened DD/ 1019 Radiology Impression Discussion of test interpretation with radiology: I have reviewed the radiologist's reading. Independent Historian Clinical information obtained from an independent historian. History obtained from or confirmed by: EMS (EMS provided additional history and confirmed the history provided by the patient. ) Critical Care Time Critical Care Time Critical Care Time: Yes Total Critical Care Time: 49 Attestation: I spent 49 minutes of Critical Care Time with this patient. This does not include time spent on separately reported billable procedures. Discharge Plan Discharge Clinical Impression: Prolonged QT interval, Kidney disease Nausea & vomiting Qualifiers: Vomiting type: unspecified Qualified Code(s): R11.2 - Nausea with vomiting, unspecified Patient Disposition: Home, Self-Care Instructions: Acute Nausea and Vomiting (DC), Impaired Kidney Function (ED) Additional Instructions: Your work up today is consistent with your baseline however, your QT interval is prolonged which can be dangerous and cause an arrhythmia that can be deadly. STOP taking your at home anti-emetics at this time. Please dialyze tomorrow. IF you are prescribed home medications and/or you are taking over the counter medications at home - it is very important you continue to do so as prescribed / directed unless told otherwise by a healthcare provider. Follow up with your primary care provider. Do your best to stay well hydrated and rest. Return to the emergency department immediately if your symptoms worsen or if you develop any numbness, tingling, dizziness, shortness of breath, difficulty breathing, chest pain, blurry vision, loss of vision, nausea, vomiting, abdominal pain, fever, chills, back pain, or any other complaints. Please see the information below about our Patient Portal. If you are not yet enrolled in the [facility] Patient Portal, you will receive an enrollment email invitation following your visit to any [facility] setting. You may also self-enroll in the Patient Portal by visiting our website: [email or web address] The following information is required to access the Patient Portal: - Your [facility] Medical Record Number - Your personal home email address (must match what is in your electronic medical record, Registration staff can assist with this) - Name - Date of Capabilities of the Patient Portal: - Message some providers - View upcoming appointments - Access your health summary, medical history, and visit history - View current conditions and allergies - View procedure and lab results - View your medications, including guidelines, side effects, and precautions - Complete pre-appointment questionnaires requested by your provider - Ready summary reports of your office visits and procedures To access the Patient Portal Mobile Marcela, follow these directions: - Search [employer] in the [employer] Store or [employer] Store - Download the Marcela - Search for [facility] - Enter your login/password Prescriptions: No Action (DME) lancets [FreeStyle Lancets] 28 gauge misc See Rx Instructions .Route Qty: 100 4RF Rx Instructions: As directed- tests 4X/day (DME) blood pressure test kit-large Kit See Rx Instructions .Route Qty: 1 0RF Rx Instructions: daily use (DME) pen needle, diabetic 32 gauge x 1/4 needle Qty: 100 0RF Rx Instructions: Use four times a day or as directed. albuterol sulfate 90 mcg/actuation HFA aerosol inhaler 1 inh inhalation QID PRN (Reason: Wheezing) 30 Days Qty: 8.5 1RF (DME) Ultra-Light Rollator Misc See Rx Instructions .Route Qty: 1 0RF Rx Instructions: As directed carvedilol 25 mg tablet 50 mg PO BID nifedipine 90 mg tablet extended release 24hr 90 mg PO BID (DME) FreeStyle Lite Strips Strip Qty: 100 0RF Rx Instructions: Test four times a day or as directed. (DME) blood-glucose meter [FreeStyle Lite Meter] Kit Qty: 1 0RF Rx Instructions: As Directed (DME) lancets [FreeStyle Lancets] 28 gauge misc Qty: 100 0RF Rx Instructions: Test four times a day or as directed. ondansetron 4 mg tablet,disintegrating 4 mg PO Q8H PRN (Reason: Nausea And Vomiting) losartan 50 mg tablet 50 mg PO DAILY nicotine 14 mg/24 hr patch 24 hour 14 mg transdermal DAILY prochlorperazine maleate 5 mg tablet 5 mg PO TID PRN (Reason: Nausea And Vomiting) spironolactone 25 mg tablet 25 mg PO DAILY Jaclyn-Elias 0.8 mg tablet 1 tab PO DAILY famotidine 20 mg tablet 20 mg PO DAILY PRN (Reason: Heartburn) sacubitril-valsartan [Entresto] 24-26 mg tablet 1 tab PO BID Protocol: Hold for SBP< HOLD for SBP < : 90 (DME) blood-glucose meter [FreeStyle Lite Meter] Kit See Rx Instructions .Route Qty: 1 0RF Rx Instructions: As directed tests 4 X/day (DME) FreeStyle Lite Strips Strip See Rx Instructions .Route Qty: 100 5RF Rx Instructions: As directed- tests 4X/day Referrals: Mauricio Nolasco, [facility] [Primary Care Provider, Internal Medicine] Print Language: Djiboutian
--- NOTE | 2025-03-04 10:10 | ECG_ITS ---
Test Reason : prolong qt Blood Pressure : */* mmHG Vent. Rate : 74 BPM Atrial Rate : 74 BPM P-R Int : 154 ms QRS Dur : 108 ms QT Int : 486 ms P-R-T Axes : 61 9 84 degrees QTcB Int : 539 ms Normal sinus rhythm Moderate voltage criteria for LVH, may be normal variant ( Sokolow-Abarca , Omar product ) Septal infarct , age undetermined Prolonged QT Abnormal ECG When compared with ECG of 07-Feb-2025 11:23, QT has lengthened Referred By: Melissa Parrish Electronically Signed By: MANJEET DUVALL
[2025-03-04 10:23] VITALS: BP 169/82; PULSE 70; RESP 20; TEMP 36.5; O2SAT 100; BMI 28.0
[2025-03-04 10:28] VITALS: BP 188/100; PULSE 77; O2SAT 100
--- OUTSIDE RECORDS SUMMARY | 2025-03-04 10:51 | XMS_ITS | Clinical Summary ---
Author Organization [facility] Address [address] [address] Phone Care Team Providers Care Medical I D Sales Name Role Phone Mauricio Nolasco NP Primary Care Provider [phone] Allergies Active Allergy Reactions Criticality Noted Date [...] 30 tablet 11 5 12/08/19 26 Active Active Problems Problem Noted Date Diagnosed Date [...] Encounters Date Type Department Care Team Description 02/22/2025 Treatment [facility] [address] [address] Camden Duarte MD End stage renal disease; Dependence on renal dialysis 02/17/2025 Treatment [facility] [address] [address] Camden Duarte MD End stage renal disease; Dependence on renal dialysis 02/15/2025 Treatment [facility] [address] [address] Camden Duarte MD End stage renal disease; Dependence on renal dialysis 02/08/2025 Treatment [facility] [address] [phone] Camden Duarte MD End stage renal disease; Dependence on renal dialysis 01/18/2025 Treatment [facility] [address] [address] Camden Duarte MD End stage renal disease; Dependence on renal dialysis 01/04/2025 Treatment [facility] [address] [phone] Camden Duarte MD End stage renal disease; Dependence on renal dialysis 12/26/2024 Treatment [facility] [address] [phone] Camden Duarte MD End stage renal disease; Dependence on renal dialysis 12/21/2024 Treatment [facility] [address] [phone] Camden Duarte MD End stage renal disease; Dependence on renal dialysis 12/14/2024 Treatment [facility] [address] [phone] Camden Duarte MD End stage renal disease; Dependence on renal dialysis 12/07/2024 Orders Only [facility] [address] [facility] [address] [place] [address] Sukumar Walker RN 12/07/2024 Treatment [facility] [address] [phone] Camden Duarte MD End stage renal disease; [...] Vaccine (#1) 2024 05/22/2022 Diabetes: Hemoglobin A1C 04/06/2025 025, 10/10/2024, 07/06/2024, Additional history exists Pneumococcal Vaccine: 50+ Years Discontinued 8, 10/18/2012 Procedures Procedure Name Priority Date/Time Associated Diagnosis Comments HEMOGLOBIN Routine 02/22/2025 3:00 AM EST TRANSFERRIN SATURATION Routine 3:00 AM EST LIH (HC) Routine 02/08/2025 3:00 AM EST PROTEIN, TOTAL, SERUM Routine 02/08/2025 3:00 AM EST MAGNESIUM Routine 02/08/2025 3:00 AM EST ELECTROLYTE PANEL Routine 02/08/2025 3:0 0 AM EST LACTATE DEHYDROGENASE Routine 02/08/2025 3:00 AM EST GLUCOSE, RANDOM Routine 02/08/2025 3:00 AM EST CREATININE, SERUM Routine 02/08/2025 3:0 0 AM EST BUN/CREATININE RATIO Routine 02/08/2025 3:00 AM EST AST Routine 02/08/2025 3:00 AM EST BILIRUBIN, TOTAL Routine 02/08/2025 3:00 AM EST ALT Routine 02/08/2025 3:00 AM EST CALCIUM PHOSPHORUS PRODUCT, ADJUSTED (HC) Routine 02/08/2025 3:00 AM EST ALKALINE PHOSPHATASE Routine 02/08/2025 3:00 AM EST FERRITIN Routine 02/08/2025 3:00 AM EST CBC AND DIFFERENTIAL Routine 02/08/2025 3:00 AM EST KT/V NATURAL LOG, URR (HC) Routine 02/08/2025 3:00 AM EST HEMOGLOBIN Routine 01/25/2025 3:00 AM EDT POTASSIUM Routine 01/20/2025 3:00 AM EDT LIH (HC) Routine 01/20/2025 3:00 AM EDT HEMOGLOBIN Routine 01/18/2025 3:00 AM EDT LIH (HC) Routine 01/18/2025 3:00 AM EDT POTASSIUM Routine 01/18/2025 3:00 AM EDT TRANSFERRIN SATURATION Routine 3:00 AM EDT KT/V NATURAL LOG, URR (HC) Routine 01/04/2025 3:00 AM EDT PROTEIN, TOTAL, SERUM Routine 01/04/2025 3:00 AM EDT ELECTROLYTE PANEL Routine 01/04/2025 3:0 0 AM EDT LIPID PANEL Routine 01/04/2025 3:00 AM EDT MAGNESIUM Routine 01/04/2025 3:00 AM EDT LIH (HC) Routine 01/04/2025 3:00 AM EDT LACTATE DEHYDROGENASE Routine 01/04/2025 3:00 AM EDT GLUCOSE, RANDOM Routine 01/04/2025 3:00 AM EDT BUN/CREATININE RATIO Routine 01/04/2025 3:00 AM EDT CREATININE, SERUM Routine 01/04/2025 3:0 0 AM EDT BILIRUBIN, TOTAL Routine 01/04/2025 3:00 AM EDT AST Routine 01/04/2025 3:00 AM EDT ALT Routine 01/04/2025 3:00 AM EDT CALCIUM PHOSPHORUS PRODUCT, ADJUSTED (HC) Routine 01/04/2025 3:00 AM EDT ALKALINE PHOSPHATASE Routine 01/04/2025 3:00 AM EDT FERRITIN Routine 01/04/2025 3:00 AM EDT PTH, INTACT Routine 01/04/2025 3:00 AM EDT HEMOGLOBIN A1C Routine 01/04/2025 3:00 AM EDT CBC AND DIFFERENTIAL Routine 01/04/2025 3:00 AM EDT HEMOGLOBIN Routine 12/30/2024 3:00 AM EDT POTASSIUM Routine 12/23/2024 3:00 AM EDT LIH (HC) Routine 12/23/2024 3:00 AM EDT HEMOGLOBIN Routine 12/21/2024 3:00 AM EDT TRANSFERRIN SATURATION Routine 3:00 [...] URR (HC) Routine 12/07/2024 3:00 AM EDT from Last 3 Months Results * (ABNORMAL) Hemoglobin (02/22/2025 3:00 AM EST) Only the most recent of5 resultswithin the time period is included. Hgb 10.0(L) 11.2 - 15.7 g/dL [facility] Hemoglobin x 3 30.0(L) 33.6 - 47.1 g/dL [facility] 02/22/2025 3:00 AM EST 02/23/2025 12:15 PM EST us Aneesh Barrera MD LAB BLOOD ORDERABLES Final Resul t Performing Organization Address City/[facility]/ZIP Co de Phone Number [facility] [address] [place] [address] * LIH (02/08/2025 3:00 AM EST) Only the most recent of6 resultswithin the time period is included. Lipemia Normal Normal [facility] Icterus Normal Normal [facility] Hemolysis Normal Normal [facility] 02/08/2025 3:00 AM EST 02/09/2025 1:57 PM EST us Aneesh Barrera MD LAB [id number] ICITED RESULTS Final Result [facility] [address] [place] [address] * (ABNORMAL) Kt/V Natural Log, URR (02/08/2025 3:00 AM EST) Only the most recent of3 resultswithin the time period is included. Treatment Time 237 min [facility] Pre-Weight, lb 82.8 kg [facility] Post-Weight, lb 77.2 kg [facility] Ultrafiltration Rate 18(H) <=13 mL/kg/hr [facility] Comment: Recommend achieving Ultrafiltration Rate (UFR) <=10 mL/kg/hr References: Gio SILVERMAN et al. Kidney Int. 2010; 79(2):250-257 BUN 77(H) 7 - 25 mg/dL [facility] BUN Post Dialysis 29(H) 7 - 25 mg/dL [facility] UREA REDUCTION RATIO (%) 62(L) >=65 % [facility] Kt/V Natural Log 1.26 >=1.2 [facility] 02/08/2025 3:00 AM EST 02/09/2025 1:57 PM EST Aneesh Barrera MD LAB [id number] ICITED RESULTS Final Result [facility] [address] [place] [address] * (ABNORMAL) Calcium Phosphorus Product, Adjusted (02/08/2025 3:00 AM EST) Only the most recent of3 resultswithin the time period is included. Albumin 4.7 3.6 - 5.4 g/dL [facility] Calcium 8.4(L) 8.6 - 10.3 mg/dL [facility] Phosphorus, Serum 4.9 2.5 - 5.0 mg/dL [facility] Ca*PO4 41.2 <55.0 mg2/dL2 [facility] Calcium, Adjusted Total 8.4(L) 8.6 - 10.3 mg/dL [facility] CA*PO4 CORRCTD 41.2 <55.0 mg2/dL2 [facility] 02/08/2025 3:00 AM EST 02/09/2025 1:57 PM EST us Aneesh Barrera MD LAB [id number] ICITED RESULTS Final Result Performing Organization Address [facility] de Phone Number [facility] [address] [place] [address] * BUN/CREATININE RATIO (02/08/2025 3:00 AM EST) Only the most recent of3 resultswithin the time period is included. BUN/Creatinine Ratio 10.4 <=23.0 [facility] 02/08/2025 3:00 AM EST 02/09/2025 1:57 PM EST us Aneesh Barrera MD LAB [id number] ICITED RESULTS Final Result Performing Organization Address [facility] de Phone Number [facility] [address] [place] [address] * (ABNORMAL) TSAT (02/08/2025 3:00 AM EST) Only the most recent of3 resultswithin the time period is included. Iron 50 50 - 170 ug/dL [facility] Transferrin 169(L) 250 - 380 mg/dL [facility] TIBC 237 211 - 406 ug/dL [facility] Iron Saturation (TSat) 21(L) 22 - 52 % [facility] 02/08/2025 3:00 AM EST 02/09/2025 1:57 PM EST us Aneesh Barrera MD LAB BLOOD ORDERABLES Final Resul t Performing Organization Address [facility] de Phone Number [facility] [address] [place] [address] * (ABNORMAL) CBC and Differential (02/08/2025 3:00 AM EST) Only the most recent of3 resultswithin the time period is included. DIFFERENTIAL MANUAL, 2 Not Indicated [facility] White Blood Cells 10.9(H) 4.0 - 10.0 K/uL [facility] RBC 3.09(L) 3.93 - 5.22 M/uL [facility] Hgb 10.3(L) 11.2 - 15.7 g/dL [facility] Hemoglobin x 3 30.9(L) 33.6 - 47.1 g/dL [facility] Hematocrit 31.0(L) 34.1 - 44.9 % [facility] MCV 100.3(H) 79.4 - 94.8 fL [facility] MCH 33.3(H) 25.6 - 32.2 pg [facility] MCHC 33.2 32.2 - 35.5 g/dL [facility] RDW 13.6 11.7 - 14.4 % [facility] Platelets 369 182 - 369 K/uL [facility] MPV 10.2 9.2 - 12.8 fL [facility] Neutrophils Relative 59.0 34.0 - 71.1 % [facility] Lymphocytes Relative 22.1 19.3 - 51.7 % [facility] Monocytes 13.2(H) 4.7 - 12.5 % [facility] Eosinophils Relative 4.1 0.7 - 5.8 % [facility] Basophils Relative 1.0 0.1 - 1.2 % [facility] Immature Granulocytes 0.6 0.0 - 1.0 % [facility] 02/08/2025 3:00 AM EST 02/09/2025 2:53 PM EST us Aneesh Barrera MD LAB BLOOD ORDERABLES Final Resul t Performing Organization Address City/[facility] de Phone Number [facility] [address] [place] [address] * ALT (02/08/2025 3:00 AM EST) Only the most recent of3 resultswithin the time period is included. [facility] ALT (SGPT) 10 10 - 49 U/L [facility] 02/08/2025 3:00 AM EST 02/09/2025 1:57 PM EST us Aneesh Barrera MD LAB BLOOD ORDERABLES Final Resul t Performing Organization Address City/[facility] Co de Phone Number [facility] [address] [place] [address] * AST (02/08/2025 3:00 AM EST) Only the most recent of3 resultswithin the time period is included. AST (SGOT) 13 <34 U/L [facility] 02/08/2025 3:00 AM EST 02/09/2025 1:57 PM EST us Aneesh Barrera MD LAB BLOOD ORDERABLES Final Resul t Performing Organization Address [facility] de Phone Number [facility] [address] [place] [address] * Protein, total (02/08/2025 3:00 AM EST) Only the most recent of3 resultswithin the time period is included. Total Protein 7.1 6.4 - 8.9 g/dL [facility] 02/08/2025 3:00 AM EST 02/09/2025 1:57 PM EST us Aneesh Barrera MD LAB BLOOD ORDERABLES Final Resul t Performing Organization Address [facility] Phone Number [facility] [address] [place] [address] * Alkaline phosphatase (02/08/2025 3:00 AM EST) Only the most recent of3 resultswithin the time period is included. Alkaline Phosphatase 113 46 - 116 U/L [facility] 02/08/2025 3:00 AM EST 02/09/2025 1:57 PM EST us Aneesh Barrera MD LAB BLOOD ORDERABLES Final Resul t Performing Organization Address [facility] de Phone Number [facility] [address] [place] [address] * Magnesium (02/08/2025 3:00 AM EST) Only the most recent of3 resultswithin the time period is included. Magnesium 2.4 1.9 - 2.7 mg/dL [facility] 02/08/2025 3:00 AM EST 02/09/2025 1:57 PM EST us Aneesh Barrera MD LAB BLOOD ORDERABLES Final Resul t Performing Organization Address [facility] Co de Phone Number [facility] [address] [place] [address] * Lactate dehydrogenase (02/08/2025 3:00 AM EST) Only the most recent of3 resultswithin the time period is included. LDH 230 120 - 246 U/L [facility] 02/08/2025 3:00 AM EST 02/09/2025 1:57 PM EST us Aneesh Barrera MD LAB BLOOD ORDERABLES Final Resul t Performing Organization Address [facility] de Phone Number [facility] [address] [place] [address] * (ABNORMAL) Glucose, random (02/08/2025 3:00 AM EST) Only the most recent of3 resultswithin the time period is included. Glucose 142(H) 70 - 99 mg/dL [facility] Comment: ADA guidelines outline the following fasting glucose ranges: Normal: <100 Prediabetes: 100-125 Diabetes: >125 02/08/2025 3:00 AM EST 02/09/2025 1:57 PM EST us Aneesh Barrera MD LAB BLOOD ORDERABLES Final Resul t Performing Organization Address [facility] de Phone Number [facility] [address] [place] [address] * (ABNORMAL) Ferritin (02/08/2025 3:00 AM EST) Only the most recent of3 resultswithin the time period is included. Ferritin 738(H) 10 - 291 ng/mL [facility] 02/08/2025 3:00 AM EST 02/09/2025 1:57 PM EST us Aneesh Barrera MD LAB BLOOD ORDERABLES Final Resul t Performing Organization Address [facility] Co de Phone Number [facility] [address] [place] [address] * (ABNORMAL) Creatinine, serum (02/08/2025 3:00 AM EST) Only the most recent of3 resultswithin the time period is included. Creatinine 7.37(H) 0.55 - 1.02 mg/dL [facility] 02/08/2025 3:00 AM EST 02/09/2025 1:57 PM EST us Aneesh Barrera MD LAB BLOOD ORDERABLES Final Resul t Performing Organization Address City/[facility] Co de Phone Number [facility] [address] [place] [address] * Bilirubin, total (02/08/2025 3:00 AM EST) Only the most recent of3 resultswithin the time period is included. Total Bilirubin 0.3 0.3 - 1.2 mg/dL [facility] 02/08/2025 3:00 AM EST 02/09/2025 1:57 PM EST us Aneesh Barrera MD LAB BLOOD ORDERABLES Final Resul t Performing Organization Address [facility] de Phone Number [facility] [address] [place] [address] * (ABNORMAL) Electrolyte panel (02/08/2025 3:00 AM EST) Only the most recent of3 resultswithin the time period is included. Sodium 138 136 - 145 mEq/L [facility] Potassium 4.9 3.4 - 5.0 mEq/L [facility] Chloride 108(H) 98 - 107 mEq/L [facility] Bicarbonate (CO2) 14(L) 21 - 31 mEq/L [facility] Anion Gap 16(H) 3 - 14 mEq/L [facility] 02/08/2025 3:00 AM EST 02/09/2025 1:57 PM EST us Aneesh Barrera MD LAB BLOOD ORDERABLES Final Resul t Performing Organization Address [facility] Co de Phone Number [facility] [address] [place] [address] * (ABNORMAL) Potassium (01/20/2025 3:00 AM EDT) Only the most recent of3 resultswithin the time period is included. Potassium 5.6(H) 3.4 - 5.0 mEq/L [facility] 01/20/2025 3:00 AM EDT 01/21/2025 2:34 PM EDT us Aneesh Barrera MD LAB BLOOD ORDERABLES Final Resul t Performing Organization Address [facility] de Phone Number [facility] [address] [place] [address] * PTH, Intact (01/04/2025 3:00 AM EDT) PTH, Intact 552 160 - 721 pg/mL [facility] Comment: Suggested (KDIGO) ESRD maintenance range is two to nine times the upper normal limit (80.1 pg/mL) for the laboratory. 01/04/2025 3:00 AM EDT 01/05/2025 2:29 PM EDT us Aneesh Barrera MD LAB BLOOD ORDERABLES Final Resul t Performing Organization Address [facility] de Phone Number [facility] [address] [place] [address] * Hemoglobin A1c (01/04/2025 3:00 AM EDT) Hemoglobin A1C 5.6 <5.7 % [facility] Comment: Methodology: Enzymatic Normal: <5.7% Prediabetes: 5.7-6.4% Diabetes: >6.4% Diabetic Glucose Control Evaluation: Therapeutic action suggested at >8.0% ADA recommends a glycemic goal of <7.0% 01/04/2025 3:00 AM EDT 01/05/2025 2:14 PM EDT us Aneesh Barrera MD LAB BLOOD ORDERABLES Final Resul t Performing Organization Address [facility] de Phone Number [facility] [address] [place] [address] * (ABNORMAL) Lipid panel (01/04/2025 3:00 AM EDT) Cholesterol 156 mg/dL [facility] Comment: Optimal: <200 Borderline: 200-239 High Risk: >239 Triglycerides 99 mg/dL [facility] Comment: Optimal: <150 Borderline: 150-200 High Risk: >200 HDL 52(L) mg/dL [facility] Comment: Optimal: >59 Borderline: 40-59 High Risk: <40 LDL-Calc 84 mg/dL [facility] Comment: Optimal: <100 Borderline: 100-159 High Risk: >159 VLDL Cholesterol Justin 20 mg/dL [facility] Comment: Optimal: <30 Borderline: 30-40 High Risk: >40 Chol/HDL Ratio 3.0 [facility] Comment: Optimal: <3.3 High Risk: >6.2 01/04/2025 3:00 AM EDT 01/05/2025 2:29 PM EDT Aneesh Barrera MD LAB BLOOD ORDERABLES Final Resul t [facility] [address] [place] [address] from Last 3 Months Insurance Medicare Medicaid [place] Medicaid [place] Care Teams Medical I D Sales Relationship Specialty Start Date End Date Mauricio Nolasco NP [facility] [place] [address] PCP - General 04/16/20
--- OUTSIDE RECORDS SUMMARY | 2025-03-04 10:51 | XMS_ITS | Encounter Summary ---
Author Organization [facility], Address [address] [place] [address] Phone Care Team Providers Care Telecom Field Technician Name Role Phone Mauricio Nolasco NP Primary Care Provider [phone] Encounter Details Date Type Department Care Team (Late st Contact Info) Description 06/09/2023 Documentation Only [facility], [address] [place] [address] [place] [address] [place] [phone] Social History Tobacco Use Types Packs/Day [...] on filedocumented in this encounter Care Teams Telecom Field Technician Relationship Specialty Start Date End Date Mauricio Nolasco NP [address] [place] [address] PCP - General 04/16/20 documented as of this encounter
--- OUTSIDE RECORDS SUMMARY | 2025-03-04 10:51 | XMS_ITS | Encounter Summary ---
Author Organization [facility] Address [address] [place] [address] Phone Care Team Providers Care Detail Manager Name Role Phone Mauricio Nolasco NP Primary Care Provider [phone] Encounter Details Date Type Department Care Team (Late st Contact Info) Description 06/12/2021 Documentation Only [facility] [address] [place] [id number] Darrion Bertrand MD [address] [place] [address], [address] [place] [address] Social History Tobacco Use Types Packs/Day Years [...] PM EST documented as of this encounter Functional Status * Question Answer Date of Assessment Author BP 170/102 06/12/2021 2:07 PM Sharlene Kimball Pulse 88 06/12/2021 2:07 PM Sharlene Kimball SpO2 98 06/12/2021 2:07 PM Sharlene Kimball Height 66 06/12/2021 2:07 PM Sharlene Kimball Weight 2944 06/12/2021 2:07 PM Sharlene Kimball * BMI (Calculated) Answer Date of Assessment Author 29.7 06/12/2021 2:07 PM Ponce Kimball * Question Answer Date of Assessment Author BP 170/102 06/12/2021 2:07 PM Sharlene Kimball Height 66 06/12/2021 2:07 PM Sharlene Kimball Weight 2944 06/12/2021 2:07 PM Sharlene Kimball * BMI (Calculated) Answer Date of Assessment Author 29.7 06/12/2021 2:07 PM Ponce Kimball documented as of this encounter Plan of Treatment Not on file documented as of this encounter Visit Diagnoses Not on filedocumented in this encounter Care Teams Detail Manager Relationship Specialty Start Date End Date Mauricio Nolasco NP [address] [place] [address] PCP - General 04/16/20 documented as of this encounter
--- OUTSIDE RECORDS SUMMARY | 2025-03-04 10:51 | XMS_ITS | Encounter Summary ---
Author Organization [facility] Address [address] [place] [address] Phone Care Team Providers Care Nail Setter Name Role Phone BreesydneyMauricio NP Primary Care Provider [phone] Encounter Details Date Type Department Care Team (Late st Contact Info) Description 07/23/2022 Telephone [facility] [address] [place] [address] Sharlene Pineda Social History Tobacco [...] AM EDT documented as of this encounter Functional Status documented as of this encounter Miscellaneous Notes * Telephone Encounter - Norma Singh - 07/24/2022 8:29 AM EDT See message * Telephone Encounter - Sharlene Pineda - 07/23/2022 4:15 PM EDT [facility] in [place] called to relay that this PT's script for Jardiance 10 mg can be available amanda 25 MG tab so that the PT doesn't have to take 2 1/2 tabs daily. documented in this encounter Plan of Treatment Not on file documented as of this encounter Visit Diagnoses Not on filedocumented in this encounter Care Teams Nail Setter Relationship Specialty Start Date End Date Mauricio Nolasco NP [address] [place] [address] PCP - General 04/16/20 documented as of this encounter
--- OUTSIDE RECORDS SUMMARY | 2025-03-04 10:51 | XMS_ITS | Clinical Summary ---
Author Organization [facility] Address [address] [place] [address] Care Team Providers Care Railroad Emergency Services Manager Name Role Phone Unavailable Primary Care Provider [...]
[2025-03-04 11:05] LABS: MANUAL DIFF FLAG NO
[2025-03-04] MEDS: diazePAM 10 MG/2 ML CARTRIDGE 2.5 MG IVPUSH (11:06)
[2025-03-04] MEDS: Magnesium Sulfate/H2O 2 GM/50 ML PIGGYBACK IV (11:10)
[2025-03-04 11:14] VITALS: BP 167/93; PULSE 75; RESP 18; TEMP 36.7; O2SAT 98
[2025-03-04 11:15] LABS: Hematocrit 30.9 % (37.0-47.0); Hemoglobin 11.1 g/dl (12.0-16.0); Imm Gran Abs Auto 0.04 X10*3/uL (0.00-0.03); Imm Gran Pct Auto 0.3 % (0.0-0.4); Lymphocytes Absolute Auto 2.4 X10*3/uL (1.2-4.9); Mean Corpuscular HGB Conc 35.9 g/dl (31.0-35.0); Mean Corpuscular Hemoglobin 33.8 pg (27.0-33.0); Mean Corpuscular Volume 94.2 fL (80.0-98.0); NRBC Abs Auto 0.000 X10*3/uL (0.0-0.012); NRBC Pct Auto 0.0 /100WBC (0.0-0.2); Platelet Count 448 X10*3/uL (160-400); Red Blood Count 3.28 X10*6/uL (4.20-5.50); White Blood Count 13.0 X10*3/uL (4.8-10.8)
[2025-03-04 11:17] LABS: INTERNATIONAL NORM RATIO 1.0 (0.9-1.1); Prothrombin Time 12.1 SEC (11.2-13.5)
[2025-03-04 11:30] LABS: Alanine Aminotransferase 9 U/L (0-31); Albumin Level 4.6 g/dL (3.5-5.0); Alkaline Phosphatase 117 U/L (39-117); Anion Gap 23 (12-20); Aspartate Amino Transferase 18 U/L (5-31); Blood Urea Nitrogen 81 mg/dL (9-16); Calcium 6.4 mg/dL (8.4-10.2); Carbon Dioxide 23 mmol/L (22-29); Chloride 95 mmol/L (96-108); Magnesium 2.0 mg/dL (1.6-2.6); Potassium 4.1 mmol/L (3.3-5.1); Sodium 137 mmol/L (135-145); Total Protein 7.1 g/dL (6.5-8.0)
[2025-03-04 11:34] LABS: Troponin-I High Sensitivity 9.7 ng/L (<3.5-17.0)
[2025-03-04 11:36] LABS: Creatinine Clr Calc Pharmacy 8.2; Estimated Glomerular Filt Rate 4
[2025-03-04 11:45] VITALS: BP 160/97; PULSE 73; RESP 18; O2SAT 98
[2025-03-04 11:48] LABS: Resp Syncy Virus RNA Qual PCR NEGATIVE (Negative); SARS COV2 PCR INHOUSE NEGATIVE (Negative)
--- NOTE | 2025-03-04 14:45 | PHA.MEDREC ---
Pharmacy Consult ? Medication Reconciliation Pharmacy has completed the medication reconciliation.Med rec complete, spoke to patient and compared with pharmacy claims history. Patient did state that she has been taken off of clonidine
--- NOTE | 2025-03-04 15:37 | PC.NURSE ---
Pt refused repeat EKG- PA Melissa made aware. Pt d/c, left ED ambulatory with steady gait on RA.
[2025-03-04 16:35] VITALS: BP 0/0; PULSE 0; RESP 0; TEMP -17.7; TEMP 0; O2SAT 0
== END 2025-03-04 16:46 | disposition home or self-care (01) ==
PROVIDERS: Physician Assistant Medical; Emergency Provider Emergency Medicine; PCP Nurse Practitioner Family
DX: R11.2 Nausea with vomiting, unspecified (principal); E11.22 Type 2 diabetes mellitus with diabetic chronic kidney disease; I13.11 Hypertensive heart and chronic kidney disease without heart failure, with stage 5 chronic kidney disease, or end stage renal disease; N18.6 End stage renal disease; R94.31 Abnormal electrocardiogram [ECG] [EKG]; R10.22 Pelvic and perineal pain left side; R19.7 Diarrhea, unspecified; F17.210 Nicotine dependence, cigarettes, uncomplicated; Z79.4 Long term (current) use of insulin; Z99.2 Dependence on renal dialysis; Z03.818 Encounter for observation for suspected exposure to other biological agents ruled out; Z79.899 Other long term (current) drug therapy
CPT/HCPCS: 36415; 74176; 80053; 83735; 84484; 85025; 85610; 87637; 93005; 96365; 96375; 99284; 99285; J3360; J3475

== ENCOUNTER → 2025-03-04 10:10 | Outpatient (BNV) | payer MEDICARE, MEDICAID, SELFPAY ==
[2024-10-11 08:46] VITALS: BP 190/120; BMI 29.0
== END ==
PROVIDERS: Emergency Provider Emergency Medicine; PCP Nurse Practitioner Family; Visit Provider Internal Medicine
DX: R94.31 Abnormal electrocardiogram [ECG] [EKG] (principal); Z13.6 Encounter for screening for cardiovascular disorders
CPT/HCPCS: 93010